=== PATIENT | male | born 1995 | race African-American/Black ===

== ENCOUNTER 2025-01-19 05:28 | Inpatient (IN) | payer MEDICAID, SELFPAY ==
--- OUTSIDE RECORDS SUMMARY | 2025-01-01 00:47 | XMS_ITS | Encounter Summary ---
Author Organization [facility] Healthcare Address [address] [place] [address] Care Team Providers Care Night Worker Name Role Phone Ray Sainz MD Unavailable [phone] Gordo Herrera MD Unavailable Miscellaneous, Not In File Unavailable Unava ilable Laurent Gonzalez MD Primary Care Provider [phone] Tobin Terrell MD Unavailable [phone] Reason for Visit * Reason Comments Sickle Cell Pain Crisis Chest Pain * Auth/Cert (Routine) Specialty Diagnoses / Procedures Referred By Contac t Referred To Contact Diagnoses Acute sickle cell crisis (HCC) Procedures NA Referral ID Status Reason Start Date Expiration Date Visits Re quested Visits Authorized [id number] 1 1 Encounter Details Date Type Department Care Team (Latest Contact Info) Description 01/01/2025 12:47 AM CDT - 01/18/2025 1:24 PM CDT Hospital Encounter [facility] 5 Med Surg [address] [place] [address] Bill Carrasquillo DO [address] [place] [address] Rasta Garcia MD [facility] [place] [address] Gary Hamilton DO [address] [facility] [place] [address] Jaya Garcia DO [address] [facility] [place] [address] Casey Paz MD [address] [place] [address] [place] [address] Leland Rodriguez MD [facility] [place] [address] Acute sickle cell crisis (HCC) (Primary Dx) Discharge Disposition: Discharge to home or self care Social History Tobacco Use Types Packs/Day Years Used Date Smoking Tobacco: Never Passive Smoke Exposure: Never Smokeless Tobacco: Never Alcohol Use Standard Drinks/Week Comments Not Currently 0 (1 standard drink = 0.6 oz pur e alcohol) Social Connection and Isolation Panel Answer Date Recorded In a typical week, how many times do you talk on the phone with family, friends, or neighbors? More than three times a week 12/08/2024 How often do you get togethe r with friends or relatives? Twice a week 12/08/2024 How often do you attend chur or worship services? Never 12/08/2024 Do you belong to any clubs o r organizations such as quaker groups, unions, fraternal or athletic groups, or school groups? No 12/08/2024 How often do you attend meet ings of the clubs or organizations you belong to? Never 12/08/2024 Are you , , di vorced, , never , or living with a partner? Never 12/08/2024 AUDIT-C Answer Date Recorded Q1: How often do you have a drink containing alcohol? Never 01/01/2025 Q2: How many drinks containi ng alcohol do you have on a typical day when you are drinking? Patient does not drink Q3: How often do you have si x or more drinks on one occasion? Never 01/01/2025 Overall Financial Resource Strain (CARDIA) Answe r Date Recorded How hard is it for you to pa y for the very basics like food, housing, medical care, and heating? Not hard at all 12/08/2024 PHQ-2 Answer Date Recorded PHQ-2 Total Score (If total score is 3 or more points, staff should administer the PHQ-9) 0 11/04/2024 PRAPARE - Transportation Answer Date Re corded In the past 12 months, has l ack of transportation kept you from medical appointments or from getting medications? No 11/23 In the past 12 months, has l ack of transportation kept you from meetings, work, or from getting things needed for daily living? No 12/08/2024 Housing Stability Vital Sign Answer Samy e Recorded In the last 12 months, was t here a time when you were not able to pay the mortgage or rent on time? No 09/01/2023 In the last 12 months, how many places have you lived? 1 09/01/2023 In the last 12 months, was t here a time when you did not have a steady place to sleep or slept in a intermediate (including now)? No 09/01/2023 PHQ-9 Answer Date Recorded PHQ-9 Total Score 0 11/04/2024 Housing Stability Vital Sign Answer Samy e Recorded In the last 12 months, was t here a time when you were not able to pay the mortgage or rent on time? No 12/08/2024 In the past 12 months, how m any times have you moved where you were living? 0 12/08/2024 At any time in the past 12 m [facility], were you homeless or living in a intermediate (including now)? No 12/08/2024 Social Connection and Isolation Panel Answer Date Recorded In a typical week, how many times do you talk on the phone with family, friends, or neighbors? More than three times a week 01/03/2025 How often do you get togethe r with friends or relatives? Twice a week 01/03/2025 How often do you attend chur ch or worship services? Never 01/03/2025 Do you belong to any clubs o r organizations such as quaker groups, unions, fraternal or athletic groups, or school groups? No 01/03/2025 How often do you attend meet ings of the clubs or organizations you belong to? Never 01/03/2025 Are you , , di vorced, , never , or living with a partner? Never 01/03/2025 Overall Financial Resource Strain (CARDIA) Answe r Date Recorded How hard is it for you to pa y for the very basics like food, housing, medical care, and heating? Not hard at all 01/03/2025 Hunger Vital Sign Answer Date Recorded Within the past 12 months, y ou worried that your food would run out before you got the money to buy more. Never true 01/04/20 25 Within the past 12 months, t he food you bought just didn't last and you didn't have money to get more. Never true 01/03/2025 PRAPARE - Transportation Answer Date Re corded In the past 12 months, has l ack of transportation kept you from medical appointments or from getting medications? No 12/24 In the past 12 months, has l ack of transportation kept you from meetings, work, or from getting things needed for daily living? No 01/03/2025 Housing Stability Vital Sign Answer Samy e Recorded In the last 12 months, was t here a time when you were not able to pay the mortgage or rent on time? No 01/03/2025 In the past 12 months, how m any times have you moved where you were living? 0 01/03/2025 At any time in the past 12 m [facility], were you homeless or living in a intermediate (including now)? No 01/03/2025 [facility] Utilities Answer Date Recorded In the past 12 months has th e electric, gas, oil, or water company threatened to shut off services in your home? No 01/03/2025 Personal Safety Answer Date Recorded Have you ever been in or are you currently in a harmful physical or emotional relationship or is someone making you feel afraid or unsafe? Denies 01/18/2025 Education Answer Date Recorded What is the highest level of school you have completed or the highest degree you have received? High school graduate 11/03/2024 Sex and Gender Information Value Date Recorded Sex Assigned at Not on file Legal Sex Male 10:50 AM LIBRARY SERVICES COORDINATOR Gender Identity Male 12/06/2024 9:44 PM CDT Sexual Orientation Straight 12/06/2024 9: 44 PM CDT documented as of this encounter Last Filed Vital Signs Vital Sign Reading Time Taken Comments Blood Pressure 111/66 01/18/2025 8:08 AM CDT Pulse 76 01/18/2025 8:08 AM CDT Temperature 36.7 C (98.1 F) 01/18/2025 8:08 AM CDT Respiratory Rate 18 01/18/2025 8:08 AM CDT Oxygen Saturation 95% 01/18/2025 8:08 AM CDT Inhaled Oxygen Concentration - - Weight 108.9 kg (240 lb) 01/01/2025 4:18 AM CDT Height 177.8 cm (5' 10) 01/01/2025 4:18 AM CDT Body Mass Index 34.44 01/01/2025 4:18 AM CDT documented in this encounter Functional Status * AUDIT-C Score Answer Date of Assessment Author 0 01/01/2025 6:16 AM CDT Adriana High RN * Question Answer Date of Assessment Author Q1: How often do you have a drink containing alcohol? Never 01/01/2025 6:16 AM CDT Teri High RN Q2: How many drinks containing alcohol do you have on a typical day when you are drinking? Patient does not drink 01/01/2025 6:16 AM CDT Teri High RN Q3: How often do you have six or more drinks on one occasion? Never 01/01/2025 6:16 AM CDT Teri High RN documented as of this encounter Discharge Summaries * Leland Rodriguez MD - 01/18/2025 12:46 PM CDT Inpatient Discharge Summary Patient Name - Johnny Simon Patient Age - 29 yrs Patient - [id number] [facility] - [id number] Document Creation Date: 01/18/2025 Admitting Provider, : Rasta Garcia MD Discharge Provider, MD: Leland Rodriguez MD Primary Care Physician at Discharge: Laurent Gonzalez MD [phone] Admission Date: 01/01/2025 Discharge Date/time: 01/18/2025 Admission Location: [facility] LOS - LOS: 16 days DETAILS OF HOSPITAL STAY Hospital Problems/Diagnoses Principal Problem: Acute sickle cell crisis (HCC) Reason for Hospitalization: Sickle cell pain crisis Hospital Course: HPI: History taken from patient. Patient states that he is experiencing pain in his lower extremities and back due to sickle cell crisis. He denies any fevers, chills, cough, shortness of breath, chest pain, nausea, vomiting, dysuria, changes in bowel habits. I have seen this patient several times in the last few months for similar presentation. [facility] for [facility] crisis. He reportedly then immediately went to [facility] ED where he was discharged after initial evaluation. Patient then decided to come to [facility] ED for evaluation. On EMR review, patient has been hospitalized for sickle cell pain crisis nearly every day since 05/2024 in this same pattern with perhaps 1-2weeks total time outside of hospitals. I did not look further back beyond this date. He was noted on discharge summary during previous admission last month at this facility to be exhibiting seeking behavior and required . Patient follows with Dr. Gonzalez for oncology and has not been able to see him/missed appointment since 04/2025. He has appointment for next month and states that he requires frequent returns to the ED due to having a pain contract and not being able to get a refill on home percocet regimen prior to next months followup. He additionally states he has not been able to move up his appointment. Patient presented to the ED with tachycardia to 90-100 with otherwise stable bp, afebrile. Labs showed K 3.2, wbc 12.2, hgb 7.8, retic 15.5, Tbili 5.6. His labs look overall slight worse compared to baseline. CXR showed no acute process. Patient received 2mg x2 dilaudid in the ED without control onpain. Discussed case with ED physician and evaluated patient in the ED. Patient did not appear to in severe pain, but seem to be in discomfort. He likely has quite a high tolerance at this point to opiates. His labwork is a bit worse compared to his baseline with overall presentation suggestive of active sickling. Decision was made to admit patient for observation. A/P: Principal Problem: Acute sickle cell crisis (HCC) Resolved Problems: No resolved hospital problems. Assessment and plan 01/16/2025 Sickle Cell Disease with Pain Crisis -do not suspect acute chest at this time -Today patient is complaining of severe pain -IV hydration with ns. Pain is not well controlled. 30 mg of [place] q.6 hours. Will continue Dilaudid. onextended release oxycodone b.i.d. scheduled.. Hemoglobin is 7.0. Reticulocyte count is trendingdown but still elevated. Hemoglobin is 8.3. Patient is still complaining of pain. Patient was now on Dilaudid 1 mg Q 3 hours with Percocet Repeat CBC in a.m..-Oncology is following. Continue folic acid. Received blood transfusion yesterday. During the transfusion patient was complaining of chest pain.Transfusion was stopped. Now hemoglobin is 8.3. Cough. Improved. Patient took only 1 dose of azithromycin then refused. No complaining of cough anymore Abdominal pain Resolved -negative for acute findings Hypokalemia Potassium is 3.1. Will replace with potassium chloride. 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 Patient was followed by Hematology and during hospital course received 1 unit of packed red blood cells on 01/16/2025. Patient's H&H has been stable for 3 days. Patient's reticulocyte has been coming down and Hematology feels patient is stable for discharge. Hematology and HONE[employer] LIQUEFIER will be reaching out to Dr. Gonzalez his Hematology to try to get the patient in next week. Patient has improved and is being transition to oral pain meds and short-term follow-up with Hematology Discharge Details Physical Exam at Discharge: Discharge Condition: good Pulse: 76 Resp: 18 BP: 111/66 Temp: 36.7 ??C (98.1 ??F) Weight: 108.9 kg (240 lb) Pertinent Exam Findings at Discharge: General appearance: Not in acute distress Lungs CTA Heart: [id number], no significant murmur or gallop Abd: +BS, Non Tender, Non distended, No gross hepatomegaly Lower Ext: No gross edema, pedal artery pulses are palpable bilaterally Neuro: No new deficits appreciated Musculoskeletal: no gross joint erythema, edema, tenderness Skin: No new change Discharge Disposition: Discharge to home or self care Code Status at Discharge: Full Code Active Issues & Recommended Plan for Follow-up: Allergies: Ceftriaxone, Morphine, Chlorhexidine towelette, Fentanyl, and Ketamine Discharge Medications: Your medication list START taking these medications Instructions Last Dose Given Next Dose Due diphenhydrAMINE 25 mg capsule Commonly known as: BENADRYL 25 mg, oral, 4 times daily PRN hydrocortisone 5 mg tablet Commonly known as: CORTEF 5 mg, oral, Nightly hydrocortisone 10 mg tablet Commonly known as: CORTEF Start taking on: January 19, 2025 10 mg, oral, Daily ondansetron ODT 4 mg disintegrating tablet Commonly known as: ZOFRAN-ODT 4 mg, oral, Every 6 hours PRN polyethylene glycol 17 gram packet Commonly known as: MIRALAX 17 g, oral, Daily PRN CHANGE how you take these medications Instructions Last Dose Given Next Dose Due oxyCODONE-acetaminophen 10-325 mg per tablet Commonly known as: PERCOCET What changed: how much to take how to take this when to take this reasons to take this additional instructions 3 tablets, oral, Every 6 hours PRN CONTINUE taking these medications Instructions Last Dose Given Next Dose Due albuterol HFA 90 mcg/actuation inhaler Doctor's comments: PMD for refills. Commonly known as: PROVENTIL HFA,VENTOLIN HFA,PROAIR HFA 2 puffs, inhalation, Every 6 hours PRN folic acid 1 mg tablet Doctor's comments: Primary care provider for refills. Commonly known as: FOLVITE 1 mg, oral, Daily naloxone 4 mg/actuation spray,non-aerosol Doctor's comments: PMD for refills. Commonly known as: NARCAN 1 spray, nasal, As needed, Call 911. Administer a single spray in one nostril. Repeat every 3 minutes as needed if no or minimal response. ASK your doctor about these medications Instructions Last Dose Given Next Dose Due oxyCODONE 15 mg immediate release tablet Commonly known as: ROXICODONE Ask about: Which instructions should I use? 15 mg, oral, Every 4 hours oxyCODONE 20 mg tablet Commonly known as: ROXICODONE Ask about: Which instructions should I use? 20 mg, oral, 4 times daily PRN oxyCODONE 20 mg tablet Commonly known as: ROXICODONE Ask about: Which instructions should I use? 20 mg, oral, Every 4 hours oxyCODONE 5 mg immediate release tablet Commonly known as: ROXICODONE Ask about: Which instructions should I use? 10 mg, oral, Every 4 hours PRN oxyCODONE ER 10 mg 12 hr abuse-deterrent tablet Commonly known as: OxyCONTIN Ask about: Which instructions should I use? 10 mg, oral, Every 12 hours scheduled Where to Get Your Medications These medications were sent to [facility] [address] [facility] [address] [facility] [address] [facility] [address] hydrocortisone 10 mg tablet hydrocortisone 5 mg tablet ondansetron ODT 4 mg disintegrating tablet oxyCODONE 20 mg tablet oxyCODONE 5 mg immediate release tablet oxyCODONE ER 10 mg 12 hr abuse-deterrent tablet oxyCODONE-acetaminophen 10-325 mg per tablet These medications were sent to [facility] ([facility]) [facility] [address] [facility] [address] [facility] [address] oxyCODONE 20 mg tablet These medications were sent to [id number] [address] [facility] [address] [facility] [id number] oxyCODONE 15 mg immediate release tablet Information about where to get these medications is not yet available Ask your nurse or doctor about these medications diphenhydrAMINE 25 mg capsule polyethylene glycol 17 gram packet Time Spent in Discharge Process: I have spent 37 minutes on discharge planning activities. Time spent was on reviewing chart, examining patient, entering orders, completing discharge summary, answering patient's questions and concerns Test Results Pending at Discharge (If Blank, None Found): Pending Labs Order Current Status Crossmatch In process Pathologist comment, Blood Bank In process Operative Procedures Performed (If Blank, None Found): Outpatient Follow-Up: Future Appointments Date Time Provider Department Center 02/14/2025 2:45 PM JENNIFER LEMON IM ONC [facility]C LAB [facility] 02/14/2025 3:45 PM YASMANY RIVERA HEM [facility] Zaheer Contact Information for Follow-ups Laurent Gonzalez MD Specialty: Hematology and Oncology, Hematology, Pathology, Anatomic Pathology, Medical Oncology, Internal Medicine, Clinical Pathology Relationship: PCP - General [address] [facility] [address] Next Steps: Schedule an appointment as soon as possible for a visit in 2 week(s) Please schedule an appointment with the following provider(s): Laurent Gonzalez MD [address] [facility] [address] Schedule an appointment as soon as possible for a visit in 2 week(s) ANCILLARY INFORMATION Other Procedures & Diagnostic Tests: XR Chest 1 Vw Portable Result Date: 01/01/2025 EXAM DESCRIPTION: XR CHEST 1 VIEW REASON FOR STUDY: cp Sickle cells pain x 3 days with chest, leg and foot pain TECHNIQUE: Portable upright AP view of the chest. COMPARISON: 12/23/2024 FINDINGS: LUNGS AND PLEURA: Vascular congestion less severe compared to the prior. No focal opacity, large effusion, or pneumothorax is seen. HEART/MEDIASTINUM: Trachea midline. Cardiac silhouette normal in size. Mediastinal contours appear normal. BONES: Shoulder arthritis. CHEST WALL: Unremarkable. UPPER ABDOMEN: Unremarkable. IMPRESSION: Vascular congestion less severe compared to 12/23/2024. No focal opacity is seen. THIS IS AN ELECTRONICALLY VERIFIED FINAL REPORT 01/01/2025 12:25 AM - Electronically signedby Andrew Stubbs M.D. AR: TOREY Report ID: [id number] Reading Location: [place] [address] Recent Labs: Recent Labs Lab Units 01/18/25 0614 01/17/25 0604 01/16/25 1440 WBC K/cumm 11.84* 10.19* 8.91 HEMOGLOBIN g/dL 8.3* 8.3* 8.3* HEMATOCRIT % 24.3* 24.0* 24.2* PLATELETS K/cumm 302 329 316 Recent Labs Lab Units 01/18/25 0614 01/17/25 0604 01/16/25 1440 WBC K/cumm 11.84* 10.19* 8.91 HEMOGLOBIN g/dL 8.3* 8.3* 8.3* HEMATOCRIT % 24.3* 24.0* 24.2* PLATELETS K/cumm 302 329 316 NEUTROS PCT % 47.8 48.8 56.6 LYMPHS PCT % 35.6 36.6 27.6 MONOS PCT % 12.9 10.2 10.2 EOS PCT % 2.7 3.4 4.6 Recent Labs Lab Units 01/18/25 0614 01/17/25 0604 01/16/25 0259 SODIUM mmol/L 138 137 138 POTASSIUM PLASMA mmol/L 3.3 3.1* 3.2* CHLORIDE mmol/L 101 101 103 CO2 mmol/L BUN SERUM mg/dL 4* 3* 3* CREATININE mg/dL 0.61* 0.50* 0.49* [id number] mL/min/1.73 m2 >90 >90 >90 GLUCOSE mg/dL 105 125 154 CALCIUM mg/dL 9.1 8.9 8.7 Recent Labs Lab Units 01/18/25 0614 01/17/25 0604 01/16/25 0259 SODIUM mmol/L 138 137 138 POTASSIUM PLASMA mmol/L 3.3 3.1* 3.2* CHLORIDE mmol/L 101 101 103 CO2 mmol/L ANIONGAP mmol/L 12 12 10 GLUCOSE mg/dL 105 125 154 BUN SERUM mg/dL 4* 3* 3* CREATININE mg/dL 0.61* 0.50* 0.49* CALCIUM mg/dL 9.1 8.9 8.7 No lab exists for component: LABALBU Lab Results Component Value Date GLUCOSE 105 01/18/2025 GLUCOSE 125 01/17/2025 GLUCOSE 154 01/16/2025 Implant: Implants No active implants to display in this view. General Precautions (If Blank, None Found): Isolation Status: No active isolations Nutritional Status and in-house recommendations: Dietary Orders (From admission, onward) Start Ordered 01/02/25 1021 Adult Diet Regular; Sarah snack Diet effective now Question Answer Comment (MHB/MHE) Diet type Regular Other Services: Sarah Other Services: HS snack 01/02/25 1020 Anticoagulation Indication: INR: No results found for requested labs within last 30 days. Warfarin Administrations (last 168 hours) None Oxygen Status: O2 Therapy for the past 12 hrs: O2 Therapy 01/18/25 1000 None (Room air) 01/18/25 0808 None (Room air) 01/18/25 0616 None (Room air) Wound Care Instructions Other Instructions Call provider for: Temperature -Temperature greater than 101 degrees F Call provider for: difficulty breathing or chest pain Call provider for: hives Call provider for: persistent nausea or vomiting Call provider for: redness, tenderness, or signs of infection (pain, swelling, redness, odor or green/yellow discharge around incision site) Call provider for: severe uncontrolled pain Call provider for: headache, visual disturbances, weakness and speech changes Active LDAs (If Blank, None Found): Midline Catheter 01/13/25 1320 Right Basilic Upper arm (Active) Placement Date/Time: 01/13/25 1320 Catheter Time Out Checklist Completed: Yes Hand Hygiene Performed: Yes Site Prep: Chlorhexidine Site Prep Agent has Completely Dried Before Insertion: Yes All 5 Sterile Barriers or Appropriate Barriers Used (Gl... Patient Emergency Contact: Primary Emergency Contact: Albertina Vick Immunization Status at Discharge Immunization History Administered Date(s) Administered DTaP 08/25/1998 Flucelvax Influenza Quad 05/03/2009 H1N1 Inj 05/03/2009 Hep A, Pediatric 09/27/2009 Hib (PRP-OMP) 03/16/1999 Influenza, Split 05/03/2009 Influenza, Trivalent, Preservative Free, Intramuscular 05/03/2009, 02/20/2011 MMR 08/25/1998 Moderna SARS-CoV-2 Monovalent Vaccination (12+ YRS) 01/23/2022 Polio, Unspecified 08/25/1998 Tdap 12/30/2007, 09/27/2009, 02/10/2020 Varicella 06/27/1999 Leland Rodriguez MD documented in this encounter Discharge Instructions * Discharge Instr - Diet* Claudia Hartmann, RD - 01/10/2025 1:04 PM CDT Recommend to eat a generally healthy diet with foods that include a variety of fruits, vegetables, whole-grain breads, low-fat dairy products, beans, lean meats, and fish. Limit fast food, sugary drinks, excess salt, and desserts. Limit sugary drinks like lemonade, regular soda, Gatorade, and sweettea and drink water throughout the day. Call [phone] to speak with a dietitian about any diet related concerns. Additional resources are available online from the Academy of Nutrition and Dietetics at www.eatright.org documented in this encounter Medications at Time of Discharge albuterol HFA (PROVENTIL HFA,VENTOLIN HFA,PROAIR HFA) 90 mcg/actuation inhalerIndications: Bronchospasm Prevention Inhale 2 puffs every 6 (six) hours as needed for wheezing or shortness of breath 1 each 1 5 diphenhydrAMINE (BENADRYL) 25 mg capsule Take 1 tablet/capsule (25 mg total) by mouth 4 (four) times a day as needed for itching or allergies 5 folic acid (FOLVITE) 1 mg tabletIndications:T o prevent folic acid deficiency sickle cell disease Take 1 tablet (1 mg total) by mouth daily 30 tablet 1 5 02/08/20 25 hydrocortisone (CORTEF) 10 mg tablet Take 1 tablet (10 mg total) by mouth daily 30 tablet 5 02/19/20 25 hydrocortisone (CORTEF) 5 mg tablet Take 1 tablet (5 mg total) by mouth nightly 30 tablet 5 02/18/20 25 naloxone (NARCAN) 4 mg/actuation spray,non-aerosolIn dications:Opiate-In duced Respiratory Depression,Opioid Toxicity,risk mitigation for opioid overdose Administer 1 spray into affected nostril(s) as needed for opioid reversal or respiratory depression Call 911. Administer a single spray in one nostril. Repeat every 3 minutes as needed if no or minimal response. 3 each 2 5 ondansetron ODT (ZOFRAN-ODT) 4 mg disintegrating tabletIndications:N ausea and Vomiting Take 1 tablet (4 mg total) by mouth every 6 (six) hours as needed for nausea or vomiting for up to 10 days 20 tablet 5 01/29/20 25 oxyCODONE ER (OxyCONTIN) 10 mg 12 hr abuse-deterrent tablet Take 1 tablet (10 mg total) by mouth every 12 (twelve) hours for 5 days 10 tablet 5 01/24/20 25 oxyCODONE-acetamino phen (PERCOCET) 10-325 mg per tabletIndications:P ain,Sickle cell pain Take 3 tablets by mouth every 6 (six) hours as needed for pain for up to 5 days 20 tablet 5 01/24/20 25 polyethylene glycol (MIRALAX) 17 gram packetIndications:c onstipation Take 1 packet (17 g total) by mouth daily as needed for constipation 5 documented as of this encounter Ordered Prescriptions Prescription Sig Dispense Quantity Refills Last Filled Start Date End Date polyethylene glycol (MIRALAX) 17 gram packetIndications:c onstipation Take 1 packet (17 g total) by mouth daily as needed for constipation 5 oxyCODONE-acetamino phen (PERCOCET) 10-325 mg per tabletIndications:P ain,Sickle cell pain Take 3 tablets by mouth every 6 (six) hours as needed for pain for up to 5 days 20 tablet 5 01/24/20 25 oxyCODONE ER (OxyCONTIN) 10 mg 12 hr abuse-deterrent tablet Take 1 tablet (10 mg total) by mouth every 12 (twelve) hours for 5 days 10 tablet 5 01/24/20 25 ondansetron ODT (ZOFRAN-ODT) 4 mg disintegrating tabletIndications:N ausea and Vomiting Take 1 tablet (4 mg total) by mouth every 6 (six) hours as needed for nausea or vomiting for up to 10 days 20 tablet 5 01/29/20 25 hydrocortisone (CORTEF) 5 mg tablet Take 1 tablet (5 mg total) by mouth nightly 30 tablet 5 02/18/20 25 hydrocortisone (CORTEF) 10 mg tablet Take 1 tablet (10 mg total) by mouth daily 30 tablet 5 02/19/20 25 diphenhydrAMINE (BENADRYL) 25 mg capsule Take 1 tablet/capsule (25 mg total) by mouth 4 (four) times a day as needed for itching or allergies 5 documented in this encounter Discharge Disposition Disposition Code Departure Means Destination Comment s Discharge to home or self care documented in this encounter Progress Notes * Casey Paz MD - 01/17/2025 2:58 PM CDT Images from the original note were not included. General Medicine Daily Progress SUBJECTIVE 01/11/2025 I have seen and examined the patient today. Patient was complaining of cough. Also complains of pain which is not well controlled yet. 01/12/2025 I have seen and examined the patient today. Patient was complaining of severe pain. 01/13/2025 I have seen and examined the patient today. Patient is still complaining of severe pain 02/0201/14/2025 I have seen and examined the patient today. Patient is still complaining of pain 03/04. 01/15/2025 I have seen and examined the patient today. Patient was still complaining of pain. 01/16/25 Today hemoglobin dropped to 7.0. Still complaining of lot of pain 01/17/2025 I have seen and examined the patient today. Patient is still complaining of pain. Does not want to change his Dilaudid. Hemoglobin is 8.3. OBJECTIVE Vitals: 24hr Min/Max: Temp Min: 36.6 ??C (97.9 ??F) Max: 37.3 ??C (99.1 ??F) Pulse Min: 65 Max: 76 BP Min: 107/69 Max: 126/81 Resp Min: 18 Max: 18 SpO2 Min: 96 % Max: 98 % Most Recent : Vitals: 01/17/25 0746 BP: 107/69 Pulse: 76 Resp: 18 Temp: 36.7 ??C (98.1 ??F) SpO2: 98% I/O last 2 completed shifts: In: 157 [Blood:157] Out: 2124 [Urine:2124] No intake/output data recorded. Physical Exam: General appearance: Not in acute distress Lungs CTA Heart: [id number], no significant murmur or gallop Abd: +BS, Non Tender, Non distended, No gross hepatomegaly Lower Ext: No gross edema, pedal artery pulses are palpable bilaterally Neuro: No new deficits appreciated Musculoskeletal: no gross joint erythema, edema, tenderness Skin: No new change Lab/Current Medication Review: Reviewed Recent Results (from the past 24 hours) Pre-Transfusion Reaction ABO/Rh Collection Time: 01/16/25 3:58 PM Result Value Ref Range ABO/Rh Pre-Transfusion Reaction A Positive Pre TRXN SAMY Collection Time: 01/16/25 3:58 PM Result Value Ref Range Direct yesenia pre-transfusion reaction Negative Post-Transfusion Reaction ABO/Rh Collection Time: 01/16/25 3:58 PM Result Value Ref Range ABO/Rh Post-Transfusion Reaction A Positive Post TRXN SAMY Collection Time: 01/16/25 3:58 PM Result Value Ref Range Yesenia, direct, post-transfusion Negative Troponin T high-sensitivity 2-hour Collection Time: 01/16/25 5:09 PM Result Value Ref Range Trop T hs <6 <=22 ng/L Trop T hs delta 0 ng/L Trop T hs interp Insignificant Troponin T high-sensitivity 4-hour Collection Time: 01/16/25 6:37 PM Result Value Ref Range Trop T hs 13 <=22 ng/L Trop T hs delta 7 ng/L Trop T hs interp Equivocal Basic metabolic panel Collection Time: 01/17/25 6:04 AM Result Value Ref Range Sodium 137 135 - 145 mmol/L Potassium, pl 3.1 (L) 3.3 - 4.9 mmol/L Chloride 101 97 - 110 mmol/L CO2 24 22 - 32 mmol/L Anion gap 12 2 - 15 mmol/L BUN 3 (L) 6 - 25 mg/dL Creatinine 0.50 (L) 0.80 - 1.30 mg/dL Glucose 125 70 - 199 mg/dL Calcium 8.9 8.5 - 10.3 mg/dL CBC with auto differential Collection Time: 01/17/25 6:04 AM Result Value Ref Range WBC 10.19 (H) 3.80 - 9.90 K/cumm Hgb 8.3 (L) 13.0 - 17.5 g/dL Hct 24.0 (L) 38.9 - 50.3 % Plt 329 150 - 400 K/cumm MPV 10.6 9.1 - 12.3 fL RBC 2.77 (L) 4.30 - 5.80 M/cumm MCV 86.6 81.3 - 96.4 fL MCH 30.0 27.1 - 33.3 pg MCHC 34.6 32.3 - 35.7 g/dL RDW CV 21.2 (H) 11.1 - 14.9 % RDW SD 66.2 (H) 35.7 - 48.1 fL NRBC abs 0.06 (H) 0.00 - 0.01 K/cumm Morphologic Screen Results confirmed by manual morphology review. Reticulocyte Count Collection Time: 01/17/25 6:04 AM Result Value Ref Range Retics, absolute 468 (H) 20 - 87 K/cumm Retics 15.7 (H) 0.4 - 2.9 % Reticulocyte Hgb 30.0 (L) 30.5 - 38.0 pg Differential, auto Collection Time: 01/17/25 6:04 AM Result Value Ref Range Neutrophil abs 4.97 1.50 - 6.50 K/cumm Imm gran abs 0.04 0.00 - 0.10 K/cumm Lymphocyte abs 3.73 (H) 0.80 - 3.30 K/cumm Monocyte abs 1.04 (H) 0.20 - 0.80 K/cumm Eosinophil abs 0.35 0.00 - 0.50 K/cumm Basophil abs 0.06 0.00 - 0.10 K/cumm Neutrophil pct 48.8 % Imm gran pct 0.4 % Lymphocyte pct 36.6 % Monocyte pct 10.2 % Eosinophil pct 3.4 % Basophil pct 0.6 % eGFR Collection Time: 01/17/25 6:04 AM Result Value Ref Range eGFR >90 >=60 mL/min/1.73 m2 Imaging Current Facility-Administered Medications Medication Dose Route Frequency Provider Last Rate Last Admin benzonatate (TESSALON) capsule 100 mg 100 mg oral TID Casey Paz MD 100 mg at 01/13/25 2339 Carrier Fluids for Secondary Infusion - 0.9% Sodium Chloride 30 mL intravenous PRN Rasta Garcia MD diphenhydrAMINE (BENADRYL) tab/cap 25 mg 25 mg oral QID PRN Rasta Garcia MD 25 mg at 01/02/25 1252 enoxaparin (LOVENOX) syringe 40 mg 40 mg subcutaneous Daily-2100 Rasta Garcia MD folic acid (FOLVITE) tablet 1 mg 1 mg oral Daily Rasta Garcia MD 1 mg at 01/17/25 0933 guaiFENesin ER (MUCINEX) extended release tablet 600 mg 600 mg oral BID Casey Paz MD 600mg at 01/17/25 0932 hydrocortisone (CORTEF) tablet 10 mg 10 mg oral Daily Rasta Garcia MD 10 mg at 01/17/25 0933 hydrocortisone (CORTEF) tablet 5 mg 5 mg oral Nightly Rasta Gracia MD 5 mg at 01/15/25 2050 HYDROmorphone (DILAUDID) injection 1 mg 1 mg intravenous Q3H PRN Casey Paz MD 1 mg at 01/17/25 1255 naloxone (NARCAN) 0.4 mg/mL injection 0.4 mg 0.4 mg intravenous Q10 Min PRN Rasta Garcia MD ondansetron ODT (ZOFRAN-ODT) disintegrating tablet 4 mg 4 mg oral Q6H PRN Rasta Garcia MD Or ondansetron (ZOFRAN) injection 4 mg 4 mg intravenous Q6H PRN Rasta Garcia MD 4 mg at 01/08/25 1130 oxyCODONE ER (OxyCONTIN) extended release tablet 10 mg 10 mg oral Q12H Casey Christianson MD 10 mg at 01/16/25 1037 oxyCODONE-acetaminophen (PERCOCET) 10-325 mg per tablet 3 tablet 3 tablet oral Q6H PRN Casey Paz MD 3 tablet at 01/12/25 1432 polyethylene glycol (MIRALAX) packet 17 g 17 g oral Daily PRN Rasta Garcia MD sodium chloride 0.9% flush 0.5-20 mL 0.5-20 mL intra-catheter Q8H Rasta Murphy MD 10 mL at 01/17/25 0635 sodium chloride 0.9% flush 0.5-20 mL 0.5-20 mL intra-catheter PRN Rasta Garcia MD 10 mL at 01/12/25 1957 sodium chloride 0.9% flush 10 mL 10 mL intra-catheter Q12H Casey Christianson MD 10 mL at 01/17/25 0949 sodium chloride 0.9% flush 10 mL 10 mL intra-catheter Q12H Casey Christianson MD 10 mL at 01/17/25 0945 sodium chloride 0.9% flush 10-20 mL 10-20 mL intra-catheter PRN Casey Paz MD sodium chloride 0.9% flush 10-20 mL 10-20 mL intra-catheter PRN Casey Paz MD A/P: Principal Problem: Acute sickle cell crisis (HCC) Resolved Problems: No resolved hospital problems. Assessment and plan 01/16/2025 Sickle Cell Disease with Pain Crisis -do not suspect acute chest at this time -Today patient is complaining of severe pain -IV hydration with ns. Pain is not well controlled. 30 mg of [place] q.6 hours. Will continue Dilaudid. onextended release oxycodone b.i.d. scheduled.. Hemoglobin is 7.0. Reticulocyte count is trendingdown but still elevated. Hemoglobin is 8.3. Patient is still complaining of pain. Patient was now on Dilaudid 1 mg Q 3 hours with Percocet Repeat CBC in a.m..-Oncology is following. Continue folic acid. Received blood transfusion yesterday. During the transfusion patient was complaining of chest pain.Transfusion was stopped. Now hemoglobin is 8.3. Cough. Improved. Patient took only 1 dose of azithromycin then refused. No complaining of cough anymore Abdominal pain Resolved -negative for acute findings Hypokalemia Potassium is 3.1. Will replace with potassium chloride. 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 This includes time spent prior to the visit and after the visit in direct care of the patient. This time does not include time spent in any separately reportable services. Voice recognition software [employer]ency Direct may have been used dictate and transcribe this document. Research Methods Instructor variances may occur. Despite proofreading, typographical errors may occur. Casey Paz MD 01/17/2025 2:58 PM * Casey Paz MD - 01/16/2025 12:38 PM CDT Images from the original note were not included. General Medicine Daily Progress SUBJECTIVE 01/11/2025 I have seen and examined the patient today. Patient was complaining of cough. Also complains of pain which is not well controlled yet. 01/12/2025 I have seen and examined the patient today. Patient was complaining of severe pain. 01/13/2025 I have seen and examined the patient today. Patient is still complaining of severe pain 02/0201/14/2025 I have seen and examined the patient today. Patient is still complaining of pain 03/04. 01/15/2025 I have seen and examined the patient today. Patient was still complaining of pain. 01/16/25 Today hemoglobin dropped to 7.0. Still complaining of lot of pain OBJECTIVE Vitals: 24hr Min/Max: Temp Min: 36.5 ??C (97.7 ??F) Max: 37.3 ??C (99.1 ??F) Pulse Min: 74 Max: 89 BP Min: 104/62 Max: 126/76 Resp Min: 16 Max: 20 SpO2 Min: 93 % Max: 97 % Most Recent : Vitals: 01/16/25 1229 BP: 126/76 Pulse: 89 Resp: 18 Temp: 37.2 ??C (99 ??F) SpO2: 97% I/O last 2 completed shifts: In: 1625 [P.O.:480; I.V.:1145] Out: 900 [Urine:900] No intake/output data recorded. Physical Exam: General appearance: Not in acute distress Lungs CTA Heart: [id number], no significant murmur or gallop Abd: +BS, Non Tender, Non distended, No gross hepatomegaly Lower Ext: No gross edema, pedal artery pulses are palpable bilaterally Neuro: No new deficits appreciated Musculoskeletal: no gross joint erythema, edema, tenderness Skin: No new change Lab/Current Medication Review: Reviewed Recent Results (from the past 24 hours) Basic metabolic panel Collection Time: 01/16/25 2:59 AM Result Value Ref Range Sodium 138 135 - 145 mmol/L Potassium, pl 3.2 (L) 3.3 - 4.9 mmol/L Chloride 103 97 - 110 mmol/L CO2 25 22 - 32 mmol/L Anion gap 10 2 - 15 mmol/L BUN 3 (L) 6 - 25 mg/dL Creatinine 0.49 (L) 0.80 - 1.30 mg/dL Glucose 154 70 - 199 mg/dL Calcium 8.7 8.5 - 10.3 mg/dL CBC with auto differential Collection Time: 01/16/25 2:59 AM Result Value Ref Range WBC 8.61 3.80 - 9.90 K/cumm Hgb 7.0 (L) 13.0 - 17.5 g/dL Hct 19.8 (L) 38.9 - 50.3 % Plt 276 150 - 400 K/cumm MPV 10.1 9.1 - 12.3 fL RBC 2.31 (L) 4.30 - 5.80 M/cumm MCV 85.7 81.3 - 96.4 fL MCH 30.3 27.1 - 33.3 pg MCHC 35.4 32.3 - 35.7 g/dL RDW CV 21.6 (H) 11.1 - 14.9 % RDW SD 65.4 (H) 35.7 - 48.1 fL NRBC abs 0.07 (H) 0.00 - 0.01 K/cumm Morphologic Screen Results confirmed by manual morphology review. Reticulocyte Count Collection Time: 01/16/25 2:59 AM Result Value Ref Range Retics, absolute 431 (H) 20 - 87 K/cumm Retics 18.7 (H) 0.4 - 2.9 % Reticulocyte Hgb 28.0 (L) 30.5 - 38.0 pg Differential, auto Collection Time: 01/16/25 2:59 AM Result Value Ref Range Neutrophil abs 4.31 1.50 - 6.50 K/cumm Imm gran abs 0.03 0.00 - 0.10 K/cumm Lymphocyte abs 3.04 0.80 - 3.30 K/cumm Monocyte abs 0.81 (H) 0.20 - 0.80 K/cumm Eosinophil abs 0.38 0.00 - 0.50 K/cumm Basophil abs 0.04 0.00 - 0.10 K/cumm Neutrophil pct 50.1 % Imm gran pct 0.3 % Lymphocyte pct 35.3 % Monocyte pct 9.4 % Eosinophil pct 4.4 % Basophil pct 0.5 % eGFR Collection Time: 01/16/25 2:59 AM Result Value Ref Range eGFR >90 >=60 mL/min/1.73 m2 ABO/Rh Collection Time: 01/16/25 10:42 AM Result Value Ref Range ABO/Rh A Positive Antibody screen Collection Time: 01/16/25 10:42 AM Result Value Ref Range Yesenia, indirect, Gel Interpretation Negative ABSC Crossmatch Collection Time: 01/16/25 10:42 AM Result Value Ref Range Crossmatch Compatible Unit number for crossmatch [id number] Crossmatch Compatible Unit number for crossmatch [id number] Prepare RBC: 1 Units Collection Time: 01/16/25 11:30 AM Result Value Ref Range Units requested 1 Units requested Ready Unit Number [id number] Product code [id number] Blood Expiration Date [id number] Product Blood Type (for scanning) 6200 Product Blood Type APOS Dispense Status DISPENSED Imaging Current Facility-Administered Medications Medication Dose Route Frequency Provider Last Rate Last Admin benzonatate (TESSALON) capsule 100 mg 100 mg oral TID Casey Paz MD 100 mg at 01/13/25 2339 Carrier Fluids for Secondary Infusion - 0.9% Sodium Chloride 30 mL intravenous PRN Rasta Garcia MD diphenhydrAMINE (BENADRYL) tab/cap 25 mg 25 mg oral QID PRN Rasta Garcia MD 25 mg at 01/02/25 1252 enoxaparin (LOVENOX) syringe 40 mg 40 mg subcutaneous Daily-2100 Rasta Garcia MD folic acid (FOLVITE) tablet 1 mg 1 mg oral Daily Rasta Garcia MD 1 mg at 01/16/25 1037 guaiFENesin ER (MUCINEX) extended release tablet 600 mg 600 mg oral BID Casey Paz MD 600mg at 01/13/25 2339 hydrocortisone (CORTEF) tablet 10 mg 10 mg oral Daily Rasta Garcia MD 10 mg at 01/16/25 1037 hydrocortisone (CORTEF) tablet 5 mg 5 mg oral Nightly Rasta Garcia MD 5 mg at 01/15/252049 HYDROmorphone (DILAUDID) injection 1 mg 1 mg intravenous Q3H PRN Casey Paz MD HYDROmorphone (DILAUDID) injection 2 mg 2 mg intravenous Q3H PRN Casey Paz MD naloxone (NARCAN) 0.4 mg/mL injection 0.4 mg 0.4 mg intravenous Q10 Min PRN Rasta Garcia MD ondansetron ODT (ZOFRAN-ODT) disintegrating tablet 4 mg 4 mg oral Q6H PRN Rasta Garcia MD Or ondansetron (ZOFRAN) injection 4 mg 4 mg intravenous Q6H PRN Rasta Garcia MD 4 mg at 01/08/25 1130 oxyCODONE ER (OxyCONTIN) extended release tablet 10 mg 10 mg oral Q12H Casey Christianson MD 10 mg at 01/16/25 1037 oxyCODONE-acetaminophen (PERCOCET) 10-325 mg per tablet 3 tablet 3 tablet oral Q6H PRN Casey Paz MD 3 tablet at 01/12/25 1432 polyethylene glycol (MIRALAX) packet 17 g 17 g oral Daily PRN Rasta Garcia MD sodium chloride 0.9% flush 0.5-20 mL 0.5-20 mL intra-catheter Q8H Rasta Murphy MD 10 mL at 01/15/25 1438 sodium chloride 0.9% flush 0.5-20 mL 0.5-20 mL intra-catheter PRN Rasta Gacria MD 10 mL at 01/12/25 1957 sodium chloride 0.9% flush 10 mL 10 mL intra-catheter Q12H Casey Christianson MD 10 mL at 01/16/25 1105 sodium chloride 0.9% flush 10 mL 10 mL intra-catheter Q12H Casey Christianson MD 10 mL at 01/16/25 1105 sodium chloride 0.9% flush 10-20 mL 10-20 mL intra-catheter PRN Casey Paz MD sodium chloride 0.9% flush 10-20 mL 10-20 mL intra-catheter PRN Casey Paz MD sodium chloride 0.9% infusion 50 mL/hr intravenous Continuous Casey Paz MD sodium chloride 0.9% IVPB 0-250 mL 0-250 mL intravenous Once Casey Paz MD A/P: Principal Problem: Acute sickle cell crisis (HCC) Resolved Problems: No resolved hospital problems. Assessment and plan 01/16/2025 Sickle Cell Disease with Pain Crisis -do not suspect acute chest at this time -Today patient is complaining of severe pain -IV hydration with ns. Pain is not well controlled. 30 mg of [place] q.6 hours. Will continue Dilaudid. onextended release oxycodone b.i.d. scheduled.. Hemoglobin is 7.0. Reticulocyte count is trendingdown but still elevated. Hemoglobin dropped to 7.0 I will transfuse 1 unit. Patient is still complaining of pain. He has been on Dilaudid 2 mg q.3 hours for several days. I discussed with the patient wanted to cut down the Dilaudid starting today at 4:00 p.m. to 1 mg q.3 hours. Will stop IV fluid at 6:00 p.m. Will repeat H&H after 1 hour of transfusion. Repeat CBC in a.m..-Oncology is following. Continue folic acid. Will transfuse if hemoglobin drops below 7 Cough. Improved. Patient took only 1 dose of azithromycin then refused. No complaining of cough anymore Abdominal pain Resolved -negative for acute findings Hypokalemia Potassium is 3.2. Will replace with potassium chloride. 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 This includes time spent prior to the visit and after the visit in direct care of the patient. This time does not include time spent in any separately reportable services. Voice recognition software [employer] Direct may have been used dictate and transcribe this document. Research Methods Instructor variances may occur. Despite proofreading, typographical errors may occur. Casey Paz MD 01/16/2025 12:38 PM * Casey Paz MD - 01/15/2025 10:13 AM CDT Images from the original note were not included. General Medicine Daily Progress SUBJECTIVE 01/11/2025 I have seen and examined the patient today. Patient was complaining of cough. Also complains of pain which is not well controlled yet. 01/12/2025 I have seen and examined the patient today. Patient was complaining of severe pain. 01/13/2025 I have seen and examined the patient today. Patient is still complaining of severe pain 02/0201/14/2025 I have seen and examined the patient today. Patient is still complaining of pain 03/04. 01/15/2025 I have seen and examined the patient today. Patient was still complaining of pain. OBJECTIVE Vitals: 24hr Min/Max: Temp Min: 36.7 ??C (98.1 ??F) Max: 37.1 ??C (98.8 ??F) Pulse Min: 71 Max: 87 BP Min: 117/70 Max: 136/81 Resp Min: 18 Max: 18 SpO2 Min: 94 % Max: 99 % Most Recent : Vitals: 01/15/25 0830 BP: 130/75 Pulse: 75 Resp: 18 Temp: 36.9 ??C (98.4 ??F) SpO2: 99% I/O last 2 completed shifts: In: 2169.2 [P.O.:1320; I.V.:849.2] Out: 3500 [Urine:3500] No intake/output data recorded. Physical Exam: General appearance: Not in acute distress Lungs CTA Heart: [id number], no significant murmur or gallop Abd: +BS, Non Tender, Non distended, No gross hepatomegaly Lower Ext: No gross edema, pedal artery pulses are palpable bilaterally Neuro: No new deficits appreciated Musculoskeletal: no gross joint erythema, edema, tenderness Skin: No new change Lab/Current Medication Review: Recent Results (from the past 24 hours) Basic metabolic panel Collection Time: 01/15/25 5:38 AM Result Value Ref Range Sodium 136 135 - 145 mmol/L Potassium, pl 3.2 (L) 3.3 - 4.9 mmol/L Chloride 102 97 - 110 mmol/L CO2 24 22 - 32 mmol/L Anion gap 10 2 - 15 mmol/L BUN 3 (L) 6 - 25 mg/dL Creatinine 0.44 (L) 0.80 - 1.30 mg/dL Glucose 116 70 - 199 mg/dL Calcium 9.0 8.5 - 10.3 mg/dL CBC with auto differential Collection Time: 01/15/25 5:38 AM Result Value Ref Range WBC 8.91 3.80 - 9.90 K/cumm Hgb 7.3 (L) 13.0 - 17.5 g/dL Hct 21.4 (L) 38.9 - 50.3 % Plt 316 150 - 400 K/cumm MPV 10.1 9.1 - 12.3 fL RBC 2.46 (L) 4.30 - 5.80 M/cumm MCV 87.0 81.3 - 96.4 fL MCH 29.7 27.1 - 33.3 pg MCHC 34.1 32.3 - 35.7 g/dL RDW CV 21.6 (H) 11.1 - 14.9 % RDW SD 67.9 (H) 35.7 - 48.1 fL NRBC abs 0.13 (H) 0.00 - 0.01 K/cumm Reticulocyte Count Collection Time: 01/15/25 5:38 AM Result Value Ref Range Retics, absolute 497 (H) 20 - 87 K/cumm Retics 20.2 (H) 0.4 - 2.9 % Reticulocyte Hgb 28.3 (L) 30.5 - 38.0 pg Differential, auto Collection Time: 01/15/25 5:38 AM Result Value Ref Range Neutrophil abs 3.92 1.50 - 6.50 K/cumm Imm gran abs 0.07 0.00 - 0.10 K/cumm Lymphocyte abs 3.68 (H) 0.80 - 3.30 K/cumm Monocyte abs 0.80 0.20 - 0.80 K/cumm Eosinophil abs 0.40 0.00 - 0.50 K/cumm Basophil abs 0.04 0.00 - 0.10 K/cumm Neutrophil pct 44.0 % Imm gran pct 0.8 % Lymphocyte pct 41.3 % Monocyte pct 9.0 % Eosinophil pct 4.5 % Basophil pct 0.4 % eGFR Collection Time: 01/15/25 5:38 AM Result Value Ref Range eGFR >90 >=60 mL/min/1.73 m2 Blood smear review Collection Time: 01/15/25 5:38 AM Result Value Ref Range RBC morphology Present (A) Hypochromasia 3-7/HPF (A) Anisocytosis Moderate (A) Schistocytes 1-2/HPF (A) Sickle cells 1-2/HPF (A) Elliptocytes 8-15/HPF (A) Target cells 3-7/HPF (A) Acanthocytes 3-7/HPF (A) Platelet estimate Adequate Imaging Current Facility-Administered Medications Medication Dose Route Frequency Provider Last Rate Last Admin benzonatate (TESSALON) capsule 100 mg 100 mg oral TID Casey Paz MD 100 mg at 01/15/25 0957 Carrier Fluids for Secondary Infusion - 0.9% Sodium Chloride 30 mL intravenous PRN Rasta Garcia MD diphenhydrAMINE (BENADRYL) tab/cap 25 mg 25 mg oral QID PRN Rasta Garcia MD 25 mg at 01/02/25 1252 enoxaparin (LOVENOX) syringe 40 mg 40 mg subcutaneous Daily-2100 Rasta Garcia MD folic acid (FOLVITE) tablet 1 mg 1 mg oral Daily Rasta Garcia MD 1 mg at 01/15/25 0957 guaiFENesin ER (MUCINEX) extended release tablet 600 mg 600 mg oral BID Casey Paz MD 600mg at 01/15/25 0957 hydrocortisone (CORTEF) tablet 10 mg 10 mg oral Daily Rasta Garcia MD 10 mg at 01/15/25 0958 hydrocortisone (CORTEF) tablet 5 mg 5 mg oral Nightly Rasta Garcia MD 5 mg at 01/14/25 2048 HYDROmorphone (DILAUDID) injection 2 mg 2 mg intravenous Q3H PRN Casey Paz MD 2 mg at 01/15/25 0838 naloxone (NARCAN) 0.4 mg/mL injection 0.4 mg 0.4 mg intravenous Q10 Min PRN Rasta Garcia MD ondansetron ODT (ZOFRAN-ODT) disintegrating tablet 4 mg 4 mg oral Q6H PRN Rasta Garcia MD Or ondansetron (ZOFRAN) injection 4 mg 4 mg intravenous Q6H PRN Rasta Garcia MD 4 mg at 01/08/25 1130 oxyCODONE ER (OxyCONTIN) extended release tablet 10 mg 10 mg oral Q12H Casey Christianson MD 10 mg at 01/15/25 0957 oxyCODONE-acetaminophen (PERCOCET) 10-325 mg per tablet 3 tablet 3 tablet oral Q6H PRN Casey Paz MD 3 tablet at 01/12/25 1432 polyethylene glycol (MIRALAX) packet 17 g 17 g oral Daily PRN Rasta Garcia MD potassium chloride ER (KLOR-CON) extended release tablet 40 mEq 40 mEq oral Once Casey Paz MD sodium chloride 0.9% flush 0.5-20 mL 0.5-20 mL intra-catheter Q8H [facility] Rasta Garcia MD 10 mL at 01/14/25 1045 sodium chloride 0.9% flush 0.5-20 mL 0.5-20 mL intra-catheter PRN Rasta Garcia MD 10 mL at 01/12/25 1957 sodium chloride 0.9% flush 10 mL 10 mL intra-catheter Q12H Casey Christianson MD 10 mL at 01/15/25 0958 sodium chloride 0.9% flush 10 mL 10 mL intra-catheter Q12H [facility] Casey Paz MD 10 mL at 01/15/25 0958 sodium chloride 0.9% flush 10-20 mL 10-20 mL intra-catheter PRN Casey Paz MD sodium chloride 0.9% flush 10-20 mL 10-20 mL intra-catheter PRN Casey Paz MD sodium chloride 0.9% infusion 50 mL/hr intravenous Continuous Casey Paz MD 50 mL/hr at 01/15/25 0225 50 mL/hr at 01/15/25 0225 A/P: Principal Problem: Acute sickle cell crisis (HCC) Resolved Problems: No resolved hospital problems. Assessment and plan 01/15/2025 Sickle Cell Disease with Pain Crisis -do not suspect acute chest at this time -Today patient is complaining of severe pain -IV hydration with ns. Pain is not well controlled. 30 mg of [place] q.6 hours. Will continue Dilaudid. onextended release oxycodone b.i.d. scheduled.. Hemoglobin is 7.3. Reticulocyte count is trendingdown but still elevated. Patient is still complaining of pain. He has been on Dilaudid 2 mg q.3 hours for several days. I discussed with the patient wanted to cut down the Dilaudid but he started agreeable to that as he saysthat his very tolerant and his pain gets worse. Will continue for now. -Oncology is following. Continue folic acid. Will transfuse if hemoglobin drops below 7 Cough. Chest x-ray suggestive of pulmonary edema or infiltrates. Started on Mucinex and Tessalon Perles azithromycin. Patient refused take azithromycin. Patient is on room air. Abdominal pain -negative for acute findings Hypokalemia Potassium is 3.2. Will replace with potassium chloride. repeat BNP Hx Adrenal Insufficiency -cont home cortef 10mg qam and 5mg qpm Hx Avascular necrosis of bilateral hips and shoulders DVT prophylaxis: Lovenox Discussed with patient and bedside nurse Case discussed with Case Management and Employee Benefits Coordinator Medical complexity/risk: low My total encounter time on 01/15/2025 was 26 minutes which was spent in the activities documented inthe note. This includes time spent prior to the visit and after the visit in direct care of the patient. This time does not include time spent in any separately reportable services. Voice recognition software MModal Fluency Direct may have been used dictate and transcribe this document. Research Methods Instructor variances may occur. Despite proofreading, typographical errors may occur. Casey Paz MD 01/15/2025 10:13 AM * Cha Wallace - 01/14/2025 3:19 PM CDT Spiritual Care Note Cha Wallace M.Div. B[facility] Mr. Cheung does not articulate any needs at this time. Declined prayer. 01/14/25 1500 Time Spent Start Time 1515 Patient Spiritual Assessment Spirituality Assessed Yes Muslim Affiliation Cheondoism Clinical Encounter Type Visited With Patient Response Type Routine visit Advance Directives (For Healthcare) Advance Directive Patient does not have advance directive Interventions Interventions Offer spiritual/worship support * Casey Paz MD - 01/14/2025 2:07 PM CDT Images from the original note were not included. General Medicine Daily Progress SUBJECTIVE 01/11/2025 I have seen and examined the patient today. Patient was complaining of cough. Also complains of pain which is not well controlled yet. 01/12/2025 I have seen and examined the patient today. Patient was complaining of severe pain. 01/13/2025 I have seen and examined the patient today. Patient is still complaining of severe pain 02/0201/14/2025 I have seen and examined the patient today. Patient is still complaining of pain 03/04. OBJECTIVE Vitals: 24hr Min/Max: Temp Min: 36.5 ??C (97.7 ??F) Max: 37 ??C (98.6 ??F) Pulse Min: 76 Max: 89 BP Min: 117/82 Max: 137/86 Resp Min: 18 Max: 19 SpO2 Min: 93 % Max: 97 % Most Recent : Vitals: 01/14/25 0727 BP: 123/79 Pulse: 76 Resp: 19 Temp: 37 ??C (98.6 ??F) SpO2: 97% I/O last 2 completed shifts: In: 1981.7 [P.O.:120; I.V.:1861.7] Out: 3775 [Urine:3775] I/O this shift: In: - Out: 1500 [Urine:1500] Physical Exam: General appearance: Not in acute distress Lungs CTA Heart: [id number], no significant murmur or gallop Abd: +BS, Non Tender, Non distended, No gross hepatomegaly Lower Ext: No gross edema, pedal artery pulses are palpable bilaterally Neuro: No new deficits appreciated Musculoskeletal: no gross joint erythema, edema, tenderness Skin: No new change Lab/Current Medication Review: Recent Results (from the past 24 hours) Basic metabolic panel Collection Time: 01/14/25 6:18 AM Result Value Ref Range Sodium 137 135 - 145 mmol/L Potassium, pl 3.5 3.3 - 4.9 mmol/L Chloride 103 97 - 110 mmol/L CO2 24 22 - 32 mmol/L Anion gap 10 2 - 15 mmol/L BUN 2 (L) 6 - 25 mg/dL Creatinine 0.45 (L) 0.80 - 1.30 mg/dL Glucose 141 70 - 199 mg/dL Calcium 8.8 8.5 - 10.3 mg/dL CBC with auto differential Collection Time: 01/14/25 6:18 AM Result Value Ref Range WBC 9.03 3.80 - 9.90 K/cumm Hgb 7.5 (L) 13.0 - 17.5 g/dL Hct 21.8 (L) 38.9 - 50.3 % Plt 287 150 - 400 K/cumm MPV 10.1 9.1 - 12.3 fL RBC 2.47 (L) 4.30 - 5.80 M/cumm MCV 88.3 81.3 - 96.4 fL MCH 30.4 27.1 - 33.3 pg MCHC 34.4 32.3 - 35.7 g/dL RDW CV 22.0 (H) 11.1 - 14.9 % RDW SD 69.9 (H) 35.7 - 48.1 fL NRBC abs 0.18 (H) 0.00 - 0.01 K/cumm Morphologic Screen Results confirmed by manual morphology review. Reticulocyte Count Collection Time: 01/14/25 6:18 AM Result Value Ref Range Retics, absolute 537 (H) 20 - 87 K/cumm Retics 21.5 (H) 0.4 - 2.9 % Reticulocyte Hgb 28.4 (L) 30.5 - 38.0 pg Differential, auto Collection Time: 01/14/25 6:18 AM Result Value Ref Range Neutrophil abs 4.75 1.50 - 6.50 K/cumm Imm gran abs 0.04 0.00 - 0.10 K/cumm Lymphocyte abs 3.30 0.80 - 3.30 K/cumm Monocyte abs 0.76 0.20 - 0.80 K/cumm Eosinophil abs 0.14 0.00 - 0.50 K/cumm Basophil abs 0.04 0.00 - 0.10 K/cumm Neutrophil pct 52.7 % Imm gran pct 0.4 % Lymphocyte pct 36.5 % Monocyte pct 8.4 % Eosinophil pct 1.6 % Basophil pct 0.4 % eGFR Collection Time: 01/14/25 6:18 AM Result Value Ref Range eGFR >90 >=60 mL/min/1.73 m2 Imaging Current Facility-Administered Medications Medication Dose Route Frequency Provider Last Rate Last Admin azithromycin (ZITHROMAX) tablet 500 mg 500 mg oral Daily Casey Paz MD 500 mg at 030 benzonatate (TESSALON) capsule 100 mg 100 mg oral TID Casey Paz MD 100 mg at 01/13/25 2339 Carrier Fluids for Secondary Infusion - 0.9% Sodium Chloride 30 mL intravenous PRN Rasta Garcia MD diphenhydrAMINE (BENADRYL) tab/cap 25 mg 25 mg oral QID PRN Rasta Garcia MD 25 mg at 01/02/25 1252 enoxaparin (LOVENOX) syringe 40 mg 40 mg subcutaneous Daily-2100 Rasta Garcia MD folic acid (FOLVITE) tablet 1 mg 1 mg oral Daily Rasta Garcia MD 1 mg at 01/14/25 1144 guaiFENesin ER (MUCINEX) extended release tablet 600 mg 600 mg oral BID Casey Paz MD 600 mg at 01/13/25 2339 hydrocortisone (CORTEF) tablet 10 mg 10 mg oral Daily Rasta Garcia MD 10 mg at 01/14/25 1144 hydrocortisone (CORTEF) tablet 5 mg 5 mg oral Nightly Rasta Garcia MD 5 mg at 01/13/25 2338 HYDROmorphone (DILAUDID) injection 2 mg 2 mg intravenous Q3H PRN Jaya Garcia DO 2 mg at 01/14/25 1348 naloxone (NARCAN) 0.4 mg/mL injection 0.4 mg 0.4 mg intravenous Q10 Min PRN Rasta Garcia MD ondansetron ODT (ZOFRAN-ODT) disintegrating tablet 4 mg 4 mg oral Q6H PRN Rasta Garcia MD Or ondansetron (ZOFRAN) injection 4 mg 4 mg intravenous Q6H PRN Rasta Garcia MD 4 mg at 01/08/25 1130 oxyCODONE ER (OxyCONTIN) extended release tablet 10 mg 10 mg oral Q12H Casey Christianson MD 10 mg at 01/14/25 1144 oxyCODONE-acetaminophen (PERCOCET) 10-325 mg per tablet 3 tablet 3 tablet oral Q6H PRN Casey Paz MD 3 tablet at 01/12/25 1432 polyethylene glycol (MIRALAX) packet 17 g 17 g oral Daily PRN Rasta Garcia MD sodium chloride 0.9% flush 0.5-20 mL 0.5-20 mL intra-catheter Q8H [facility] Rasta Garcia MD 10 mL at 01/14/25 1045 sodium chloride 0.9% flush 0.5-20 mL 0.5-20 mL intra-catheter PRN Rasta Garcia MD 10 mL at 01/12/25 1957 sodium chloride 0.9% flush 10 mL 10 mL intra-catheter Q12H Casey Christianson MD 10 mL at 01/14/25 0741 sodium chloride 0.9% flush 10 mL 10 mL intra-catheter Q12H [facility] Casey Paz MD 10 mL at 01/14/25 0741 sodium chloride 0.9% flush 10-20 mL 10-20 mL intra-catheter PRN Casey Paz MD sodium chloride 0.9% flush 10-20 mL 10-20 mL intra-catheter PRN Casey Paz MD sodium chloride 0.9% infusion 50 mL/hr intravenous Continuous Casey Paz MD 50 mL/hr at 01/14/25 0746 50 mL/hr at 01/14/25 0746 A/P: Principal Problem: Acute sickle cell crisis (HCC) Resolved Problems: No resolved hospital problems. Assessment and plan 01/14/2025 Sickle Cell Disease with Pain Crisis -do not suspect acute chest at this time -Today patient is complaining of severe pain -IV hydration with ns. Pain is not well controlled. 30 mg of [place] q.6 hours. Will continue Dilaudid. I added extended release oxycodone b.i.d. scheduled.. Hemoglobin is 7.5. Collar site count is trending down but still elevated. -Oncology is following. Continue folic acid. Will transfuse if hemoglobin drops below 7 Patient was still requiring IV Dilaudid. Will try to decrease IV from tomorrow and if needed I willincrease the extended release oxycodone dose. Cough. Chest x-ray suggestive of pulmonary edema or infiltrates. Started on Mucinex and Tessalon Perles will start azithromycin. Patient refused take azithromycin. Patient is on room air. Abdominal pain -negative for acute findings Hypokalemia Resolved. Potassium is 3.7 repeat BNP Hx Adrenal Insufficiency -cont home cortef 10mg qam and 5mg qpm Hx Avascular necrosis of bilateral hips and shoulders DVT prophylaxis: Lovenox Discussed with patient and bedside nurse Case discussed with Case Management and Employee Benefits Coordinator Medical complexity/risk: low My total encounter time on 01/14/2025 was 26 minutes which was spent in the activities documented inthe note. This includes time spent prior to the visit and after the visit in direct care of the patient. This time does not include time spent in any separately reportable services. Voice recognition software [employer] Direct may have been used dictate and transcribe this document. Research Methods Instructor variances may occur. Despite proofreading, typographical errors may occur. Casey Paz MD 01/14/2025 2:07 PM * Casey Paz MD - 01/13/2025 1:29 PM CDT Images from the original note were not included. General Medicine Daily Progress SUBJECTIVE 01/11/2025 I have seen and examined the patient today. Patient was complaining of cough. Also complains of pain which is not well controlled yet. 01/12/2025 I have seen and examined the patient today. Patient was complaining of severe pain. 01/13/2025 I have seen and examined the patient today. Patient is still complaining of severe pain 02/02 OBJECTIVE Vitals: 24hr Min/Max: Temp Min: 36.7 ??C (98.1 ??F) Max: 36.7 ??C (98.1 ??F) Pulse Min: 79 Max: 84 BP Min: 113/83 Max: 141/104 Resp Min: 18 Max: 18 SpO2 Min: 93 % Max: 95 % Most Recent : Vitals: 01/12/252014 BP: 113/83 Pulse: 79 Resp: 18 SpO2: 95% I/O last 2 completed shifts: In: 950 [I.V.:950] Out: 2550 [Urine:2550] I/O this shift: In: - Out: 1050 [Urine:1050] Physical Exam: General appearance: Not in acute distress Lungs CTA Heart: [id number], no significant murmur or gallop Abd: +BS, Non Tender, Non distended, No gross hepatomegaly Lower Ext: No gross edema, pedal artery pulses are palpable bilaterally Neuro: No new deficits appreciated Musculoskeletal: no gross joint erythema, edema, tenderness Skin: No new change Lab/Current Medication Review: No results found for this or any previous visit (from the past 24 hours). Imaging Current Facility-Administered Medications Medication Dose Route Frequency Provider Last Rate Last Admin azithromycin (ZITHROMAX) tablet 500 mg 500 mg oral Daily Casey Paz MD 500 mg at 030 benzonatate (TESSALON) capsule 100 mg 100 mg oral TID Casey Paz MD Carrier Fluids for Secondary Infusion - 0.9% Sodium Chloride 30 mL intravenous PRN Rasta Garcia MD diphenhydrAMINE (BENADRYL) tab/cap 25 mg 25 mg oral QID PRN Rasta Garcia MD 25 mg at 01/02/25 1252 enoxaparin (LOVENOX) syringe 40 mg 40 mg subcutaneous Daily-2099 Rasta Garcia MD folic acid (FOLVITE) tablet 1 mg 1 mg oral Daily Rasta Garcia MD 1 mg at 01/12/25 1030 guaiFENesin ER (MUCINEX) extended release tablet 600 mg 600 mg oral BID Casey Paz MD 600mg at 01/11/25 1312 hydrocortisone (CORTEF) tablet 10 mg 10 mg oral Daily Rasta Garcia MD 10 mg at 01/12/25 103 hydrocortisone (CORTEF) tablet 5 mg 5 mg oral Nightly Rasta Garcia MD 5 mg at 08/18/25 2022 HYDROmorphone (DILAUDID) injection 2 mg 2 mg intravenous Q3H PRN Garcia, Jaya, DO 2 mg at 01/13/25 1035 lidocaine (PF) (XYLOCAINE) 10 mg/mL (1 %) preservative free injection 10-20 mg 1-2 mL subcutaneous Once Casey Paz MD naloxone (NARCAN) 0.4 mg/mL injection 0.4 mg 0.4 mg intravenous Q10 Min PRN Rasta Garcia MD ondansetron ODT (ZOFRAN-ODT) disintegrating tablet 4 mg 4 mg oral Q6H PRN Rasta Garcia MD Or ondansetron (ZOFRAN) injection 4 mg 4 mg intravenous Q6H PRN Rasta Garcia MD 4 mg at 01/08/25 1130 oxyCODONE ER (OxyCONTIN) extended release tablet 10 mg 10 mg oral Q12H [facility] Casey Paz MD 10 mg at 01/13/25 0914 oxyCODONE-acetaminophen (PERCOCET) 10-325 mg per tablet 3 tablet 3 tablet oral Q6H PRN Casey Paz MD 3 tablet at 01/12/25 1432 polyethylene glycol (MIRALAX) packet 17 g 17 g oral Daily PRN Rasta Garcia MD sodium chloride 0.9% flush 0.5-20 mL 0.5-20 mL intra-catheter Q8H Rasta Murphy MD 10 mL at 01/11/25 1607 sodium chloride 0.9% flush 0.5-20 mL 0.5-20 mL intra-catheter PRN Rasta Garcia MD 10 mL at 01/12/25 1957 sodium chloride 0.9% flush 10 mL 10 mL intra-catheter Q12H Casey Christianson MD sodium chloride 0.9% flush 10 mL 10 mL intra-catheter Q12H Casey Christianson MD sodium chloride 0.9% flush 10-20 mL 10-20 mL intra-catheter PRN Casey Paz MD sodium chloride 0.9% flush 10-20 mL 10-20 mL intra-catheter PRN Casey Paz MD sodium chloride 0.9% infusion 50 mL/hr intravenous Continuous Casey Paz MD 50 mL/hr at 01/13/25 1212 50 mL/hr at 01/13/25 1212 A/P: Principal Problem: Acute sickle cell crisis (HCC) Resolved Problems: No resolved hospital problems. Assessment and plan 01/13/2025 Sickle Cell Disease with Pain Crisis -do not suspect acute chest at this time -Today patient is complaining of severe pain -IV hydration with ns. Pain is not well controlled. 30 mg of [place] q.6 hours. Will continue Dilaudid. I added extended release oxycodone b.i.d. scheduled.. Yesterday he refused to take extended oxycodone and also refused blood work for last 2 days. I discussed with patient again. Patient is now agreeable to take extended release oxycodone. And also agreeable for work if patient had a midline. Will was ordered. Will follow up blood resolved. -Cont benadryl po prn, folic acid -daily retic and cbc w/diff -Chest x-ray was unremarkable. -Oncology is following. Continue folic acid. Will transfuse if hemoglobin drops below 7 Cough. Chest x-ray suggestive of pulmonary edema or infiltrates. Started on Mucinex and Tessalon Perles will start azithromycin. Patient refused take azithromycin. Patient is on room air. Abdominal pain -negative for acute findings Hypokalemia Resolved. Potassium is 3.7 repeat BNP Hx Adrenal Insufficiency -cont home cortef 10mg qam and 5mg qpm Hx Avascular necrosis of bilateral hips and shoulders DVT prophylaxis: Lovenox Discussed with patient and bedside nurse Case discussed with Case Management and Employee Benefits Coordinator Medical complexity/risk: low My total encounter time on 01/13/2025 was 26 minutes which was spent in the activities documented inthe note. This includes time spent prior to the visit and after the visit in direct care of the patient. This time does not include time spent in any separately reportable services. Voice recognition software MModal Fluency Direct may have been used dictate and transcribe this document. Research Methods Instructor variances may occur. Despite proofreading, typographical errors may occur. Casey Paz MD 01/13/2025 1:29 PM * Timoteo Luciana M., HONEY LIQUEFIER - 01/13/2025 8:14 AM CDT Oncology Medicine Daily Progress SUBJECTIVE: Chief complaint of sickle cell crisis pain. Interval History: Patient is examined resting in bed. He reports he is still having pain but seems to be getting better. Denies CP or dyspnea. No fever or chills He is frustrated as lab had been unable to adequately obtain blood specimens on him He is also having issues with his IV. Review of Systems All other systems reviewed and are negative. OBJECTIVE: Vitals: 24hr Min/Max: Temp Min: 36.7 ??C (98.1 ??F) Max: 36.8 ??C (98.2 ??F) Pulse Min: 77 Max: 84 BP Min: 113/83 Max: 141/104 Resp Min: 18 Max: 20 SpO2 Min: 93 % Max: 97 % .Temp (24hrs), Av.8 ??C (98.2 ??F), Min:36.7 ??C (98.1 ??F), Max:36.8 ??C (98.2 ??F) Most Recent : Vitals: 01/12/25 0437 01/12/25 0826 01/12/25 1712 01/12/252014 BP: 106/71 119/79 (!) 141/104 113/83 BP Location: Right arm Right arm Right arm Patient Position: Lying Lying Lying Pulse: 72 77 84 79 Resp: 20 18 Temp: 36.8 ??C (98.2 ??F) 36.7 ??C (98.1 ??F) TempSrc: Oral Oral SpO2: 93% 97% 93% 95% Weight: Height: ECO I/O last 2 completed shifts: In: 950 [I.V.:950] Out: 2550 [Urine:2550] No intake/output data recorded. Current Facility-Administered Medications Medication Dose Route Frequency Provider Last Rate Last Admin azithromycin (ZITHROMAX) tablet 500 mg 500 mg oral Daily Casey Paz MD 500 mg at 079887 benzonatate (TESSALON) capsule 100 mg 100 mg oral TID Casey Paz MD Carrier Fluids for Secondary Infusion - 0.9% Sodium Chloride 30 mL intravenous PRN Rasta Garcia MD diphenhydrAMINE (BENADRYL) tab/cap 25 mg 25 mg oral QID PRN Rasta Garcia MD 25 mg at 01/02/25 1252 enoxaparin (LOVENOX) syringe 40 mg 40 mg subcutaneous Daily-2100 Rasta Garcia MD folic acid (FOLVITE) tablet 1 mg 1 mg oral Daily Rasta Garcia MD 1 mg at 01/12/25 1030 guaiFENesin ER (MUCINEX) extended release tablet 600 mg 600 mg oral BID Casey Paz MD 600mg at 01/11/25 1312 hydrocortisone (CORTEF) tablet 10 mg 10 mg oral Daily Rasta Garcia MD 10 mg at 01/12/25 1030 hydrocortisone (CORTEF) tablet 5 mg 5 mg oral Nightly Rasta Garcia MD 5 mg at 01/10/25 202 HYDROmorphone (DILAUDID) injection 2 mg 2 mg intravenous Q3H PRN Jaya Garcia DO 2 mg at 01/13/25 0718 naloxone (NARCAN) 0.4 mg/mL injection 0.4 mg 0.4 mg intravenous Q10 Min PRN Rasta Garcia MD ondansetron ODT (ZOFRAN-ODT) disintegrating tablet 4 mg 4 mg oral Q6H PRN Rasta Garcia MD Or ondansetron (ZOFRAN) injection 4 mg 4 mg intravenous Q6H PRN Rasta Garcia MD 4 mg at 01/08/25 1130 oxyCODONE ER (OxyCONTIN) extended release tablet 10 mg 10 mg oral Q12H [facility] Casey Paz MD oxyCODONE-acetaminophen (PERCOCET) 10-325 mg per tablet 3 tablet 3 tablet oral Q6H PRN Casey Paz MD 3 tablet at 01/12/25 1432 polyethylene glycol (MIRALAX) packet 17 g 17 g oral Daily PRN Rasta Garcia MD sodium chloride 0.9% flush 0.5-20 mL 0.5-20 mL intra-catheter Q8H [facility] Rasta Garcia MD 10 mL at 01/11/25 1607 sodium chloride 0.9% flush 0.5-20 mL 0.5-20 mL intra-catheter PRN Rasta Garcia MD 10 mL at 01/12/251956 sodium chloride 0.9% infusion 50 mL/hr intravenous Continuous Casey Paz MD 50 mL/hr at 01/12/251743 50 mL/hr at 01/12/251743 sodium chloride 0.9%, 50 mL/hr, Last Rate: 50 mL/hr (01/12/251743) azithromycin, 500 mg, oral, Daily benzonatate, 100 mg, oral, TID enoxaparin, 40 mg, subcutaneous, Daily-2100 folic acid, 1 mg, oral, Daily guaiFENesin ER, 600 mg, oral, BID hydrocortisone, 10 mg, oral, Daily hydrocortisone, 5 mg, oral, Nightly oxyCODONE ER, 10 mg, oral, Q12H [facility] sodium chloride 0.9%, 0.5-20 mL, intra-catheter, Q8H [facility] sodium chloride 0.9% diphenhydrAMINE HYDROmorphone OR [DISCONTINUED] HYDROmorphone naloxone ondansetron ODT OR ondansetron oxyCODONE-acetaminophen polyethylene glycol sodium chloride 0.9% Physical Exam: Physical Exam Vitals and nursing note reviewed. Constitutional: Appearance: Normal appearance. He is well-developed. HENT: Head: Normocephalic and atraumatic. Cardiovascular: Rate and Rhythm: Normal rate and regular rhythm. Heart sounds: Normal heart sounds. Pulmonary: Effort: Pulmonary effort is normal. Breath sounds: Normal breath sounds. Skin: General: Skin is warm and dry. Findings: No bruising or rash. Neurological: General: No focal deficit present. Mental Status: He is alert and oriented to person, place, and time. Psychiatric: Attention and Perception: Attention normal. Mood and Affect: Mood normal. Speech: Speech normal. Behavior: Behavior is cooperative. Cognition and Memory: Cognition normal. Lab/Radiology/Diagnostic Review: No results found for this or any previous visit (from the past 24 hours). XR Chest PA Lateral 2 Views Result Date: 01/11/2025 Narrative: EXAM DESCRIPTION: XR CHEST PA LATERAL 2 VIEWS REASON FOR STUDY: cough,fever Cough and fever yesterday TECHNIQUE: Frontal and lateral radiographic view(s) of the chest. COMPARISON: Multipleprevious chest radiographs with the most recent dated 01/10/2025. Chest CT dated 12/23/2024. FINDINGS: Multifocal bilateral opacities as seen on the previous chest radiograph dated 01/10/2025 and could reflect pulmonary edema and/or multifocal pneumonia. No significant pleural effusion. No definitepneumothorax. Cardiomediastinal silhouette projects enlarged. Osseous stigmata of sickle cell disease is again seen. IMPRESSION: No significant change in appearance of the chest when compared to the previous chest radiograph dated 01/10/2025. THIS IS AN ELECTRONICALLY VERIFIED FINAL REPORT 01/11/2025 2:07 PM - Electronically signed by Gee Laboy D.O. AP: AP Report ID: [id number] Reading Location: [id number] XR Chest 1 View Result Date: 01/10/2025 Narrative: EXAM DESCRIPTION: XR CHEST 1 VIEW REASON FOR STUDY: SOB Increased SOB today TECHNIQUE: Single radiographic view(s) of the chest. COMPARISON: Chest radiograph 01/01/2025 FINDINGS: LUNGS: Mild bilateral pulmonary edema. No focal opacity, pleural effusion, or pneumothorax. HEART/MEDIASTINUM: Cardiac silhouette is enlarged in size. Mediastinal and hilar contours appear normal. LINES/TUBES:None. BONES: No acute osseous abnormality. IMPRESSION: Cardiomegaly with mild bilateral pulmonary edema. No pleural effusion THIS IS AN ELECTRONICALLY VERIFIED FINAL REPORT 01/10/2025 2:33 PM - Electronically signed by Anne Merchant M.D. FT: FT Report ID: [id number] Reading Location: [id number] CT Abdomen Pelvis WO Contrast Result Date: 01/08/2025 Narrative: EXAM DESCRIPTION: CT ABDOMEN PELVIS WO CONTRAST REASON FOR STUDY: Abdominal pain, acute,nonlocalized Abd pain RLQ pt. Reports recent appy. treated with abx. TECHNIQUE: CT scan of the abdomen and pelvis performed without intravenous and without oral contrast using helical scanning technique. Reconstructed coronal and sagittal MPR images reviewed. All images stored on PACS. Automated exposure control was used as a dose optimization technique for this examination. COMPARISON: 08/30/2024, 08/13/2024, 02/10/2024 06/26/2023 REFERENCE: Per ACR white paper recommendations, unless otherwise specified no follow-up imaging is recommended for incidental renal and adrenal lesions per consensus recommendations based on imaging criteria. Further lab evaluation could be pursued based on clinical findings. FINDINGS: Absence of intravenous contrast reduces sensitivity for detection of pathology. Findings made within these confines. LOWER CHEST: Mild cardiomegaly. Subsegmental atelectasis. LIVER: No concerning lesions by noncontrast technique. GALLBLADDER/BILE DUCTS: No significant biliaryductal dilatation. SPLEEN: Atrophic. PANCREAS: No significant ductal dilatation or discrete lesion.ADRENALS: No measurable nodule. KIDNEYS/URETERS: No hydronephrosis. No obstructing nephroureterolithiasis. BLADDER/URINARY: No significant bladder wall thickening. REPRODUCTIVE: No significant abnormality. GASTROINTESTINAL: No dilated bowel loops. No obvious wall thickening. Unremarkable appendix similar in appearance over multiple prior examinations. LYMPH NODES: Similar-appearing mildly prominent mesenteric and iliac chain lymph nodes which are nonspecific and possibly reactive. No pathologically enlarged lymphadenopathy. PERITONEUM/RETROPERITONEUM: No ascites or free air. VASCULATURE: No abdominal aortic aneurysm. MUSCULOSKELETAL: Osseous stigmata of sickle cell disease. Heterogeneous serpiginous sclerosis of the bilateral femoral heads compatible with osteonecrosis. No acute displaced fracture. OTHER: No significant abnormality. IMPRESSION: 1. No acute abnormality with the abdomen or pelvis. 2. Similar-appearing mildly prominent mesenteric and iliac chain lymph nodes which are nonspecific and possibly reactive. 3. Osseous stigmata of sickle cell disease. THIS IS AN ELECTRONICALLY VERIFIED FINAL REPORT 01/08/2025 5:00 PM - Electronically signed by Anival Cotton M.D. NS: NS Report ID: [id number] Reading Location: [id number] XR Chest 1 Vw Portable Result Date: 01/01/2025 Narrative: EXAM DESCRIPTION: XR CHEST 1 VIEW REASON FOR STUDY: cp Sickle cells pain x 3 days with chest, leg and foot pain TECHNIQUE: Portable upright AP view of the chest. COMPARISON: 12/23/2024 FINDINGS: LUNGS AND PLEURA: Vascular congestion less severe compared to the prior. No focal opacity, large effusion, or pneumothorax is seen. HEART/MEDIASTINUM: Trachea midline. Cardiac silhouette normalin size. Mediastinal contours appear normal. BONES: Shoulder arthritis. CHEST WALL: Unremarkable. UPPER ABDOMEN: Unremarkable. IMPRESSION: Vascular congestion less severe compared to 12/23/2024. No focal opacity is seen. THIS IS AN ELECTRONICALLY VERIFIED FINAL REPORT 01/01/2025 12:25 AM - Electronically signed by Andrew Stubbs M.D. AR: TOREY Report ID: [id number] Reading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 Frequent safety checks and comfort rounds provided throughout shift. Safety maintained. Voiding without difficulty. Pt repositioned regularly through shift with education given on importanceof preventing pressure injuries, VSS remained stable throughout shift. PRN pain medication given per JUL. Pt currently resting in bed, no further needs at this time. Problem: Discharge Planning Goal: Understanding discharge needs will improve Outcome: Progressing Flowsheets (Taken 01/17/2025 0005) Understanding of discharge needs will improve: Identify discharge barriers Collaborate with case management interdisciplinary team Discuss information regarding discharge instructions Identify discharge learning needs (meds, wound care, etc.) Arrange for needed discharge resources and transportation as appropriate Problem: Lack of Knowledge Goal: Ability to develop a pain control plan will improve Outcome: Progressing Flowsheets (Taken 01/17/2025 0005) Ability to develop a pain control plan will improve: Explain causes of pain and how long pain can be expected to last Teach information regarding pain management Educate pain scale for assessing level of pain Teach notification to healthcare provider of episodes of pain Problem: Medication Goal: Satisfaction with pain management medication regimen will improve Outcome: Progressing Flowsheets (Taken 01/17/20254) Satisfaction with pain management medication regimen will improve: Manage analgesics Evaluate medication effects Assess satisfaction with pain management regimen Report inadequate pain control to healthcare provider Problem: Sensory Goal: Ability to identify factors that increase pain levels will improve while working to decrease the patient's pain levels Outcome: Progressing Flowsheets (Taken 01/17/20254) Ability to identify factors that increase pain levels will improve while working to decrease patients pain levels: Assess pain status Encourage distraction activities Provide hot or cold therapy Assess effects of pain control measures Observe non-verbal cues of discomfort, such as restlessness, muscle tension, or altered vital signs Problem: Coping Goal: Ability to cope will improve Outcome: Progressing Flowsheets (Taken 01/17/20254) Ability to cope will Improve: Assess beliefs of pain Provide emotional support Encourage vebalization of feelings surrounding pain Problem: Health Behavior Goal: Identification of resources available to assist in meeting health care needs will improve Outcome: Progressing Flowsheets (Taken 01/17/20254) Identification of resources available to assist in meeting health care needs will improve: Collaborate with all therapies Problem: Neurosensory Goal: Achieves stable or improved neurological status Outcome: Progressing Flowsheets (Taken 01/17/20254) Achieves Stable or Improved Neurological Status: Assess for and report changes in neurological status Maintain blood pressure and fluid volume within ordered parameters to optimize cerebral perfusion and minimize risk of hemorrhage Monitor temperature, glucose, and sodium. Initiate appropriate interventions as ordered Goal: Achieves maximal functionality and self care Outcome: Progressing Flowsheets (Taken 01/17/20254) Achieves maximal functionality and self care: Monitor swallowing and airway patency with patient fatigue and changes in neurological status Encourage and assist patient to increase activity and self care with guidance from therapies Encourage visually impaired, hearing impaired and aphasic patients to use assistive/communication devices Problem: Respiratory Goal: Achieves optimal ventilation and oxygenation Outcome: Progressing Flowsheets (Taken 01/17/20254) Achieves optimal ventilation and oxygenation: Assess for changes in respiratory status Assess for changes in mentation and behavior Position to facilitate oxygenation and minimize respiratory effort Perform cluster care Goal: Ability to maintain a clear airway will improve Outcome: Progressing Flowsheets (Taken 01/17/2025 0005) Ability to maintain a clear airway will improve: Evaluate breath sounds Problem: Cardiovascular Goal: Maintains optimal cardiac output and hemodynamic stability Outcome: Progressing Flowsheets (Taken 01/17/20254) Maintain optimal cardiac output and hemodynamic Stability: Monitor vital signs, rhythm, and trends Monitor for bleeding, hypotension and signs of decreased cardiac output Assess quality of pulses, skin color and temperature Monitor urine output and notify provider of values outside normal range Goal: Absence of cardiac dysrhythmias or at baseline Outcome: Progressing Flowsheets (Taken 01/03/2025 0142 by Janet Zuniga RN) Absence of cardiac dysrhythmias or at baseline: Continuous cardiac monitoring, monitor vital signs,obtain 12 lead EKG if indicated Goal: Cardiovascular status will improve Outcome: Progressing Flowsheets (Taken 01/17/20254) Cardiovascular status will improve: Monitor for signs and symptoms of chest pain Problem: Skin/Tissue Integrity Goal: Skin integrity remains intact Outcome: Progressing Flowsheets (Taken 01/17/20254) Skin integrity remains intact: Assess and document risk factors for pressure injury development Assess and document skin integrity Monitor for areas of redness and/or skin breakdown * Plan of Care - Cheyanne Hines RN - 01/17/2025 3:35 PM CDT CM Care Progression Expected Discharge Date and Time Expected Discharge Date Jan 17, 2025 Next steps with the transition plan: Retic count continues to trend down. IV Dilaudid has been weaned to 1mg q3hrs. Oxycontin ER PO BID. Has refused the evening dose for several days now. Will anticipate discharge in the AM. No needs identified. This discharge plan has been discussed with patient and care team with agreement to the post-acute care plan and understanding of the expectations for discharge when medically ready. 01/17/25 1535 Discharge Planning Support System Friends/neighbors Anticipated discharge level of care Private residence Does the patient need discharge transport arranged? Yes Type of Transportation Medicaid transport Has discharge transport been arranged? No Post Acute Care Plan Post Acute Care Needs Identified No Cheyanne Hines RN * Plan of Care - Sheree Rizo RN - 01/17/2025 8:32 AM CDT Problem: Discharge Planning Goal: Understanding discharge needs will improve Outcome: Progressing Problem: Lack of Knowledge Goal: Ability to develop a pain control plan will improve Outcome: Progressing Problem: Medication Goal: Satisfaction with pain management medication regimen will improve Outcome: Progressing Problem: Sensory Goal: Ability to identify factors that increase pain levels will improve while working to decrease the patient's pain levels Outcome: Progressing Problem: Coping Goal: Ability to cope will improve Outcome: Progressing Problem: Health Behavior Goal: Identification of resources available to assist in meeting health care needs will improve Outcome: Progressing Problem: Neurosensory Goal: Achieves stable or improved neurological status Outcome: Progressing Goal: Achieves maximal functionality and self care Outcome: Progressing Problem: Respiratory Goal: Achieves optimal ventilation and oxygenation Outcome: Progressing Goal: Ability to maintain a clear airway will improve Outcome: Progressing Problem: Cardiovascular Goal: Maintains optimal cardiac output and hemodynamic stability Outcome: Progressing Goal: Absence of cardiac dysrhythmias or at baseline Outcome: Progressing Goal: Cardiovascular status will improve Outcome: Progressing Problem: Skin/Tissue Integrity Goal: Skin integrity remains intact Outcome: Progressing Goal: Oral mucous membranes remain intact Outcome: Progressing Problem: Musculoskeletal Goal: Return mobility to safest level of function Outcome: Progressing Goal: Return ADL status to a safe level of function Outcome: Progressing Goal: Ability to perform activities at highest level will improve Outcome: Progressing Goal: Mobility, ROM and muscle strength will improve Outcome: Progressing Problem: Genitourinary Goal: Absence of urinary retention Outcome: Progressing Problem: Metabolic/Fluid and Electrolytes Goal: Electrolytes maintained within normal limits Outcome: Progressing Goal: Hemodynamic stability and optimal renal function maintained Outcome: Progressing Problem: Hematologic Goal: Maintains hematologic stability Outcome: Progressing Problem: Gastrointestinal Goal: Maintains or returns to baseline bowel function Outcome: Progressing Goal: Maintains adequate nutritional intake Outcome: Progressing Goals: Clinical Goals for the Shift: VSS, Pain control, Rest, Comfort, Safety Technical Publications Manager Patient Centered Goal for Treatment: Safe DC Summary: VSS * Plan of Care - Kelsie Goodson RN - 01/17/2025 5:55 AM CDT Goals: Clinical Goals for the Shift: pain control. Technical Publications Manager Patient Centered Goal for Treatment: D/c home. Summary: Assessment of patient???s baseline is established at the beginning of the shift in flowsheets. Patient reassessed per order, unexpected findings and/or deviations from baseline are captured in flowsheets. Frequent safety checks and comfort rounds provided throughout shift. Orders and/or nursing care completed as indicated. Patient monitored for response to interventions and treatments asdocumented in flowsheets. Plan of care discussed with patient/automobile rental representative, including as it relates to sickle cell crisis Patient progressing. Education provided includes Discharge Planning and Fall Prevention. Patient and/or automobile rental representative Verbalizes understanding. Problem: Discharge Planning Goal: Understanding discharge needs will improve Outcome: Progressing Flowsheets (Taken 01/17/20254) Understanding of discharge needs will improve: Identify discharge barriers Collaborate with case management interdisciplinary team Discuss information regarding discharge instructions Identify discharge learning needs (meds, wound care, etc.) Arrange for needed discharge resources and transportation as appropriate Problem: Lack of Knowledge Goal: Ability to develop a pain control plan will improve Outcome: Progressing Flowsheets (Taken 01/17/20254) Ability to develop a pain control plan will improve: Explain causes of pain and how long pain can be expected to last Teach information regarding pain management Educate pain scale for assessing level of pain Teach notification to healthcare provider of episodes of pain Problem: Medication Goal: Satisfaction with pain management medication regimen will improve Outcome: Progressing Flowsheets (Taken 01/17/20254) Satisfaction with pain management medication regimen will improve: Manage analgesics Evaluate medication effects Assess satisfaction with pain management regimen Report inadequate pain control to healthcare provider Problem: Sensory Goal: Ability to identify factors that increase pain levels will improve while working to decrease the patient's pain levels Outcome: Progressing Flowsheets (Taken 01/17/20254) Ability to identify factors that increase pain levels will improve while working to decrease patients pain levels: Assess pain status Encourage distraction activities Provide hot or cold therapy Assess effects of pain control measures Observe non-verbal cues of discomfort, such as restlessness, muscle tension, or altered vital signs Problem: Coping Goal: Ability to cope will improve Outcome: Progressing Flowsheets (Taken 01/17/20254) Ability to cope will Improve: Assess beliefs of pain Provide emotional support Encourage vebalization of feelings surrounding pain Problem: Health Behavior Goal: Identification of resources available to assist in meeting health care needs will improve Outcome: Progressing Flowsheets (Taken 01/17/20254) Identification of resources available to assist in meeting health care needs will improve: Collaborate with all therapies Problem: Neurosensory Goal: Achieves stable or improved neurological status Outcome: Progressing Flowsheets (Taken 01/17/20254) Achieves Stable or Improved Neurological Status: Assess for and report changes in neurological status Maintain blood pressure and fluid volume within ordered parameters to optimize cerebral perfusion and minimize risk of hemorrhage Monitor temperature, glucose, and sodium. Initiate appropriate interventions as ordered Goal: Achieves maximal functionality and self care Outcome: Progressing Flowsheets (Taken 01/17/20254) Achieves maximal functionality and self care: Monitor swallowing and airway patency with patient fatigue and changes in neurological status Encourage and assist patient to increase activity and self care with guidance from therapies Encourage visually impaired, hearing impaired and aphasic patients to use assistive/communication devices Problem: Respiratory Goal: Achieves optimal ventilation and oxygenation Outcome: Progressing Flowsheets (Taken 01/17/20254) Achieves optimal ventilation and oxygenation: Assess for changes in respiratory status Assess for changes in mentation and behavior Position to facilitate oxygenation and minimize respiratory effort Perform cluster care Goal: Ability to maintain a clear airway will improve Outcome: Progressing Flowsheets (Taken 01/17/20254) Ability to maintain a clear airway will improve: Evaluate breath sounds Problem: Cardiovascular Goal: Maintains optimal cardiac output and hemodynamic stability Outcome: Progressing Flowsheets (Taken 01/17/20254) Maintain optimal cardiac output and hemodynamic Stability: Monitor vital signs, rhythm, and trends Monitor for bleeding, hypotension and signs of decreased cardiac output Assess quality of pulses, skin color and temperature Monitor urine output and notify provider of values outside normal range Goal: Absence of cardiac dysrhythmias or at baseline Outcome: Progressing Goal: Cardiovascular status will improve Outcome: Progressing Flowsheets (Taken 01/17/20254) Cardiovascular status will improve: Monitor for signs and symptoms of chest pain Problem: Skin/Tissue Integrity Goal: Skin integrity remains intact Outcome: Progressing Flowsheets (Taken 01/17/20254) Skin integrity remains intact: Assess and document risk factors for pressure injury development Assess and document skin integrity Monitor for areas of redness and/or skin breakdown Goal: Oral mucous membranes remain intact Outcome: Progressing Problem: Musculoskeletal Goal: Return mobility to safest level of function Outcome: Progressing Flowsheets (Taken 01/17/20254) Return mobility to safest level of function: Assess patient stability and activity tolerance for standing, transferring and ambulating with or without assistive devices Assist with transfers and ambulation using safe patient handling equipment as needed * Plan of Care - Kelsie Og RN - 01/16/2025 4:03 PM CDT Problem: Discharge Planning Goal: Understanding discharge needs will improve Outcome: Progressing Problem: Medication Goal: Satisfaction with pain management medication regimen will improve Outcome: Progressing Problem: Health Behavior Goal: Identification of resources available to assist in meeting health care needs will improve Outcome: Progressing Problem: Neurosensory Goal: Achieves stable or improved neurological status Outcome: Progressing Goals: Clinical Goals for the Shift: pain control. [facility] Goal for Treatment: D/c home. Summary: * Incidental Note - Casey Paz MD - 01/16/2025 2:32 PM CDT I got a secure chat from the nurse that patient had chest pain which is right- sided after patient is started on blood transfusion. Blood transfusion was stopped. Chest x-ray was negative. I order troponins and EKG. Does not seem patient had any severe reaction. If pain gets worse will get hydrocortisone and IV Benadryl. At this time patient is stable. Will not continue the transfusion at this time. * Plan of Care - Roshan Dunn RN - 01/16/2025 5:03 AM CDT Problem: Discharge Planning Goal: Understanding discharge needs will improve Outcome: Progressing Problem: Lack of Knowledge Goal: Ability to develop a pain control plan will improve Outcome: Progressing Problem: Medication Goal: Satisfaction with pain management medication regimen will improve Outcome: Progressing Problem: Sensory Goal: Ability to identify factors that increase pain levels will improve while working to decrease the patient's pain levels Outcome: Progressing Problem: Coping Goal: Ability to cope will improve Outcome: Progressing Problem: Health Behavior Goal: Identification of resources available to assist in meeting health care needs will improve Outcome: Progressing Problem: Neurosensory Goal: Achieves stable or improved neurological status Outcome: Progressing Goal: Achieves maximal functionality and self care Outcome: Progressing Problem: Respiratory Goal: Achieves optimal ventilation and oxygenation Outcome: Progressing Goal: Ability to maintain a clear airway will improve Outcome: Progressing Problem: Cardiovascular Goal: Maintains optimal cardiac output and hemodynamic stability Outcome: Progressing Goal: Absence of cardiac dysrhythmias or at baseline Outcome: Progressing Goal: Cardiovascular status will improve Outcome: Progressing Problem: Skin/Tissue Integrity Goal: Skin integrity remains intact Outcome: Progressing Goal: Oral mucous membranes remain intact Outcome: Progressing Problem: Musculoskeletal Goal: Return mobility to safest level of function Outcome: Progressing Goal: Return ADL status to a safe level of function Outcome: Progressing Goal: Ability to perform activities at highest level will improve Outcome: Progressing Goal: Mobility, ROM and muscle strength will improve Outcome: Progressing Problem: Genitourinary Goal: Absence of urinary retention Outcome: Progressing Problem: Metabolic/Fluid and Electrolytes Goal: Electrolytes maintained within normal limits Outcome: Progressing Goal: Hemodynamic stability and optimal renal function maintained Outcome: Progressing Problem: Hematologic Goal: Maintains hematologic stability Outcome: Progressing Problem: Gastrointestinal Goal: Maintains or returns to baseline bowel function Outcome: Progressing Goal: Maintains adequate nutritional intake Outcome: Progressing Goals: Clinical Goals for the Shift: pain control. [facility] Goal for Treatment: D/c home. Summary: * Plan of Joseluis - Kelsie Og RN - 01/15/2025 3:18 PM CDT Problem: Discharge Planning Goal: Understanding discharge needs will improve Outcome: Progressing Problem: Lack of Knowledge Goal: Ability to develop a pain control plan will improve Outcome: Progressing Problem: Coping Goal: Ability to cope will improve Outcome: Progressing Problem: Respiratory Goal: Achieves optimal ventilation and oxygenation Outcome: Progressing Problem: Cardiovascular Goal: Cardiovascular status will improve Outcome: Progressing Problem: Musculoskeletal Goal: Return ADL status to a safe level of function Outcome: Progressing Problem: Gastrointestinal Goal: Maintains or returns to baseline bowel function Outcome: Progressing Goal: Maintains adequate nutritional intake Outcome: Progressing Goals: Clinical Goals for the Shift: pain control. [facility] Goal for Treatment: D/c home. Summary: * Plan of Care - Roshan Dunn RN - 01/15/2025 6:20 AM CDT Problem: Discharge Planning Goal: Understanding discharge needs will improve Outcome: Progressing Problem: Lack of Knowledge Goal: Ability to develop a pain control plan will improve Outcome: Progressing Problem: Medication Goal: Satisfaction with pain management medication regimen will improve Outcome: Progressing Problem: Sensory Goal: Ability to identify factors that increase pain levels will improve while working to decrease the patient's pain levels Outcome: Progressing Problem: Coping Goal: Ability to cope will improve Outcome: Progressing Problem: Health Behavior Goal: Identification of resources available to assist in meeting health care needs will improve Outcome: Progressing Problem: Neurosensory Goal: Achieves stable or improved neurological status Outcome: Progressing Goal: Achieves maximal functionality and self care Outcome: Progressing Problem: Respiratory Goal: Achieves optimal ventilation and oxygenation Outcome: Progressing Goal: Ability to maintain a clear airway will improve Outcome: Progressing Problem: Cardiovascular Goal: Maintains optimal cardiac output and hemodynamic stability Outcome: Progressing Goal: Absence of cardiac dysrhythmias or at baseline Outcome: Progressing Goal: Cardiovascular status will improve Outcome: Progressing Problem: Skin/Tissue Integrity Goal: Skin integrity remains intact Outcome: Progressing Goal: Oral mucous membranes remain intact Outcome: Progressing Problem: Musculoskeletal Goal: Return mobility to safest level of function Outcome: Progressing Goal: Return ADL status to a safe level of function Outcome: Progressing Goal: Ability to perform activities at highest level will improve Outcome: Progressing Goal: Mobility, ROM and muscle strength will improve Outcome: Progressing Problem: Genitourinary Goal: Absence of urinary retention Outcome: Progressing Problem: Metabolic/Fluid and Electrolytes Goal: Electrolytes maintained within normal limits Outcome: Progressing Goal: Hemodynamic stability and optimal renal function maintained Outcome: Progressing Problem: Hematologic Goal: Maintains hematologic stability Outcome: Progressing Problem: Gastrointestinal Goal: Maintains or returns to baseline bowel function Outcome: Progressing Goal: Maintains adequate nutritional intake Outcome: Progressing Goals: Clinical Goals for the Shift: pain control. Technical Publications Manager Patient Centered Goal for Treatment: D/c home. Summary: * Plan of Care - Augustine Alvarez RN - 01/14/2025 2:05 PM CDT Goals: Clinical Goals for the Shift: pain control. [facility] Goal for Treatment: D/c home. Problem: Lack of Knowledge Goal: Ability to develop a pain control plan will improve Outcome: Not Progressing Problem: Medication Goal: Satisfaction with pain management medication regimen will improve Outcome: Not Progressing Problem: Coping Goal: Ability to cope will improve Outcome: Not Progressing Problem: Respiratory Goal: Achieves optimal ventilation and oxygenation Outcome: Progressing Goal: Ability to maintain a clear airway will improve Outcome: Progressing Problem: Skin/Tissue Integrity Goal: Skin integrity remains intact Outcome: Progressing Goal: Oral mucous membranes remain intact Outcome: Progressing Problem: Genitourinary Goal: Absence of urinary retention Outcome: Progressing Problem: Hematologic Goal: Maintains hematologic stability Outcome: Progressing Summary: Pt had no falls/injuries during shift. VSS. A&Ox4. IVF. Prns for pain. Pt refusing to take percocet, MD is aware. Pt consistently rating pain 10/10 or 8/10. Turns self. * Plan of Care - Cheyanne Hines RN - 01/14/2025 7:47 AM CDT CM Care Progression Expected Discharge Date and Time Expected Discharge Date Jan 14, 2025 Next steps with the transition plan: Retic count decreasing. IV pain medications have been adjusted. Attempting to wean to PO meds for discharge. Midline placed yesterday for blood draws per patient's request. Will return home with friends at time of discharge. This discharge plan has been discussed with patient and care team with agreement to the post-acute care plan and understanding of the expectations for discharge when medically ready. 01/14/25 0747 Discharge Planning Support System Friends/neighbors Anticipated discharge level of care Private residence Does the patient need discharge transport arranged? Yes Type of Transportation Medicaid transport Has discharge transport been arranged? No Post Acute Care Plan Post Acute Care Needs Identified No Cheyanne Hines RN * Plan of Care - Kimo Gresham RN - 01/14/2025 5:59 AM CDT Problem: Discharge Planning Goal: Understanding discharge needs will improve Outcome: Progressing Problem: Lack of Knowledge Goal: Ability to develop a pain control plan will improve Outcome: Progressing Problem: Medication Goal: Satisfaction with pain management medication regimen will improve Outcome: Progressing Problem: Sensory Goal: Ability to identify factors that increase pain levels will improve while working to decrease the patient's pain levels Outcome: Progressing Problem: Coping Goal: Ability to cope will improve Outcome: Progressing Problem: Health Behavior Goal: Identification of resources available to assist in meeting health care needs will improve Outcome: Progressing Problem: Neurosensory Goal: Achieves stable or improved neurological status Outcome: Progressing Goal: Achieves maximal functionality and self care Outcome: Progressing Problem: Cardiovascular Goal: Maintains optimal cardiac output and hemodynamic stability Outcome: Progressing Goal: Absence of cardiac dysrhythmias or at baseline Outcome: Progressing Goal: Cardiovascular status will improve Outcome: Progressing Problem: Skin/Tissue Integrity Goal: Skin integrity remains intact Outcome: Progressing Goal: Oral mucous membranes remain intact Outcome: Progressing Problem: Musculoskeletal Goal: Return mobility to safest level of function Outcome: Progressing Goal: Return ADL status to a safe level of function Outcome: Progressing Goal: Ability to perform activities at highest level will improve Outcome: Progressing Goal: Mobility, ROM and muscle strength will improve Outcome: Progressing Problem: Genitourinary Goal: Absence of urinary retention Outcome: Progressing Problem: Metabolic/Fluid and Electrolytes Goal: Electrolytes maintained within normal limits Outcome: Progressing Goal: Hemodynamic stability and optimal renal function maintained Outcome: Progressing Problem: Hematologic Goal: Maintains hematologic stability Outcome: Progressing Problem: Gastrointestinal Goal: Maintains or returns to baseline bowel function Outcome: Progressing Goal: Maintains adequate nutritional intake Outcome: Progressing Goals: Clinical Goals for the Shift: VSS, rest, pain control Technical Publications Manager Patient Centered Goal for Treatment: D/c home. Summary: Assessment of patient???s baseline established at the beginning of the shift in flowsheets. Frequent safety checks and comfort rounds provided. Orders and/or nursing care completed as indicated. Patient monitored for response to interventions and treatments as documented in flowsheets. VS stable. Patient given dilaudid q3h prn for pain. Patient refused to take oxycontin and PO prn pain medication. Safety precautions maintained. Patient resting in bed, respirations even and unlabored atthis time. * Plan of Care - Cheyanne Hines RN - 01/13/2025 9:12 AM CDT CM Care Progression Expected Discharge Date and Time Expected Discharge Date Jan 15, 2025 Next steps with the transition plan: Dilaudid dosing adjusted, now at 2mg q3hrs. Percocet also prescribed q8hrs. Retic count elevated. Will return to friends house upon discharge. No needs identifiedat this time. This discharge plan has been discussed with patient and care team with agreement to the post-acute care plan and understanding of the expectations for discharge when medically ready. 01/13/25 0912 Discharge Planning Support System Friends/neighbors Anticipated discharge level of care Private residence Does the patient need discharge transport arranged? Yes Type of Transportation Medicaid transport Has discharge transport been arranged? No Post Acute Care Plan Post Acute Care Needs Identified No Cheyanne Hines RN * Plan of Care - Jina Castillo RN - 01/13/2025 5:59 AM CDT Problem: Discharge Planning Goal: Understanding discharge needs will improve Outcome: Progressing Problem: Lack of Knowledge Goal: Ability to develop a pain control plan will improve Outcome: Progressing Problem: Medication Goal: Satisfaction with pain management medication regimen will improve Outcome: Progressing Problem: Sensory Goal: Ability to identify factors that increase pain levels will improve while working to decrease the patient's pain levels Outcome: Progressing Problem: Coping Goal: Ability to cope will improve Outcome: Progressing Problem: Health Behavior Goal: Identification of resources available to assist in meeting health care needs will improve Outcome: Progressing Problem: Neurosensory Goal: Achieves stable or improved neurological status Outcome: Progressing Goal: Achieves maximal functionality and self care Outcome: Progressing Problem: Respiratory Goal: Achieves optimal ventilation and oxygenation Outcome: Progressing Goal: Ability to maintain a clear airway will improve Outcome: Progressing Problem: Cardiovascular Goal: Maintains optimal cardiac output and hemodynamic stability Outcome: Progressing Goal: Absence of cardiac dysrhythmias or at baseline Outcome: Progressing Goal: Cardiovascular status will improve Outcome: Progressing Problem: Skin/Tissue Integrity Goal: Skin integrity remains intact Outcome: Progressing Goal: Oral mucous membranes remain intact Outcome: Progressing Problem: Musculoskeletal Goal: Return mobility to safest level of function Outcome: Progressing Goal: Return ADL status to a safe level of function Outcome: Progressing Goal: Ability to perform activities at highest level will improve Outcome: Progressing Goal: Mobility, ROM and muscle strength will improve Outcome: Progressing Problem: Genitourinary Goal: Absence of urinary retention Outcome: Progressing Problem: Metabolic/Fluid and Electrolytes Goal: Electrolytes maintained within normal limits Outcome: Progressing Goal: Hemodynamic stability and optimal renal function maintained Outcome: Progressing Problem: Hematologic Goal: Maintains hematologic stability Outcome: Progressing Problem: Gastrointestinal Goal: Maintains or returns to baseline bowel function Outcome: Progressing Goal: Maintains adequate nutritional intake Outcome: Progressing Goals: Clinical Goals for the Shift: Comfort, safety, VSS, pain control Technical Publications Manager Patient Centered Goal for Treatment: d/c home Summary: Assessment of patient???s baseline is established at the beginning of the shift in flowsheets. Patient reassessed per order, unexpected findings and/or deviations from baseline are captured in flowsheets. Frequent safety checks and comfort rounds provided. Orders and/or nursing care completed as indicated. Patient monitored for response to interventions and treatments as documented in flowsheets. . Plan of care discussed with patient/automobile rental representative, including as it relates to Principal Problem: Acute sickle cell crisis (HCC) Patient progressing. Clinical goals for the shift Comfort, safety, VSS, pain control . Education provided includes Treatments/Therapies: . Patient and/or automobile rental representative Verbalizes understanding. Willcontinue to monitor. Patient resting in bed. Patient called out multiple times throughout the shift for pain control medication and documented in the MAR. Multiple safety rounds completed, wheels locked call light withinreach, call light within reach. Care ongoing * Plan of Care - Luciana Mahmood NP - 01/12/2025 7:59 AM CDT Images from the original note were not included. Follow up Hematology Note for sickle cell crisis pain I reviewed this patient's vital signs, pertinent lab data, imaging, and other provider notes. Pertinent Results Vitals: 24hr Min/Max: Temp Min: 36.7 ??C (98.1 ??F) Max: 37 ??C (98.6 ??F) Pulse Min: 72 Max: 93 BP Min: 98/64 Max: 138/94 Resp Min: 16 Max: 18 SpO2 Min: 93 % Max: 95 % Most Recent : Vitals: 01/12/25 0437 BP: 106/71 Pulse: 72 Resp: Temp: SpO2: 93% Lab/Radiology/Diagnostic Review: Laboratory review: reviewed the laboratory result(s) below Recent Results (from the past 24 hours) Basic metabolic panel Collection Time: 01/11/25 1:12 PM Result Value Ref Range Sodium 138 135 - 145 mmol/L Potassium, pl 3.7 3.3 - 4.9 mmol/L Chloride 103 97 - 110 mmol/L CO2 24 22 - 32 mmol/L Anion gap 11 2 - 15 mmol/L BUN 2 (L) 6 - 25 mg/dL Creatinine 0.50 (L) 0.80 - 1.30 mg/dL Glucose 110 70 - 199 mg/dL Calcium 8.7 8.5 - 10.3 mg/dL CBC with auto differential Collection Time: 01/11/25 1:12 PM Result Value Ref Range WBC 10.21 (H) 3.80 - 9.90 K/cumm Hgb 8.3 (L) 13.0 - 17.5 g/dL Hct 24.3 (L) 38.9 - 50.3 % Plt 379 150 - 400 K/cumm MPV 9.9 9.1 - 12.3 fL RBC 2.82 (L) 4.30 - 5.80 M/cumm MCV 86.2 81.3 - 96.4 fL MCH 29.4 27.1 - 33.3 pg MCHC 34.2 32.3 - 35.7 g/dL RDW CV 23.4 (H) 11.1 - 14.9 % RDW SD 70.7 (H) 35.7 - 48.1 fL NRBC abs 0.23 (H) 0.00 - 0.01 K/cumm Reticulocyte Count Collection Time: 01/11/25 1:12 PM Result Value Ref Range Retics, absolute 585 (H) 20 - 87 K/cumm Retics 20.8 (H) 0.4 - 2.9 % Reticulocyte Hgb 30.1 (L) 30.5 - 38.0 pg eGFR Collection Time: 01/11/25 1:12 PM Result Value Ref Range eGFR >90 >=60 mL/min/1.73 m2 Manual Differential Collection Time: 01/11/25 1:12 PM Result Value Ref Range Differential Manual Cells Counted 100 Neutrophil abs 4.90 1.50 - 6.50 K/cumm Lymphocyte abs 4.39 (H) 0.80 - 3.30 K/cumm Monocyte abs 0.51 0.20 - 0.80 K/cumm Eosinophil abs 0.41 0.00 - 0.50 K/cumm Neutrophil pct 48.0 % Lymphocyte pct 43.0 % Monocyte pct 5.0 % Eosinophil pct 4.0 % RBC morphology Present (A) Polychromasia 3-7/HPF (A) Anisocytosis Marked (A) Sickle cells 1-2/HPF (A) Elliptocytes 8-15/HPF (A) Teardrop cells 3-7/HPF (A) Platelet morphology Normal Platelet estimate Adequate XR Chest PA Lateral 2 Views Result Date: 01/11/2025 Narrative: EXAM DESCRIPTION: XR CHEST PA LATERAL 2 VIEWS REASON FOR STUDY: cough,fever Cough and fever yesterday TECHNIQUE: Frontal and lateral radiographic view(s) of the chest. COMPARISON: Multipleprevious chest radiographs with the most recent dated 01/10/2025. Chest CT dated 12/23/2024. FINDINGS: Multifocal bilateral opacities as seen on the previous chest radiograph dated 01/10/2025 and could reflect pulmonary edema and/or multifocal pneumonia. No significant pleural effusion. No definitepneumothorax. Cardiomediastinal silhouette projects enlarged. Osseous stigmata of sickle cell disease is again seen. IMPRESSION: No significant change in appearance of the chest when compared to the previous chest radiograph dated 01/10/2025. THIS IS AN ELECTRONICALLY VERIFIED FINAL REPORT 01/11/2025 2:07 PM - Electronically signed by Gee Laboy D.O. AP: AP Report ID: [id number] Reading Location: [id number] XR Chest 1 View Result Date: 01/10/2025 Narrative: EXAM DESCRIPTION: XR CHEST 1 VIEW REASON FOR STUDY: SOB Increased SOB today TECHNIQUE: Single radiographic view(s) of the chest. COMPARISON: Chest radiograph 01/01/2025 FINDINGS: LUNGS: Mild bilateral pulmonary edema. No focal opacity, pleural effusion, or pneumothorax. HEART/MEDIASTINUM: Cardiac silhouette is enlarged in size. Mediastinal and hilar contours appear normal. LINES/TUBES:None. BONES: No acute osseous abnormality. IMPRESSION: Cardiomegaly with mild bilateral pulmonary edema. No pleural effusion THIS IS AN ELECTRONICALLY VERIFIED FINAL REPORT 01/10/2025 2:33 PM - Electronically signed by Anne Merchant M.D. FT: FT Report ID: [id number] Reading Location: [id number] CT Abdomen Pelvis WO Contrast Result Date: 01/08/2025 Narrative: EXAM DESCRIPTION: CT ABDOMEN PELVIS WO CONTRAST REASON FOR STUDY: Abdominal pain, acute,nonlocalized Abd pain RLQ pt. Reports recent appy. treated with abx. TECHNIQUE: CT scan of the abdomen and pelvis performed without intravenous and without oral contrast using helical scanning technique. Reconstructed coronal and sagittal MPR images reviewed. All images stored on PACS. Automated exposure control was used as a dose optimization technique for this examination. COMPARISON: 08/30/2024, 08/13/2024, 02/10/2024 06/26/2023 REFERENCE: Per ACR white paper recommendations, unless otherwise specified no follow-up imaging is recommended for incidental renal and adrenal lesions per consensus recommendations based on imaging criteria. Further lab evaluation could be pursued based on clinical findings. FINDINGS: Absence of intravenous contrast reduces sensitivity for detection of pathology. Findings made within these confines. LOWER CHEST: Mild cardiomegaly. Subsegmental atelectasis. LIVER: No concerning lesions by noncontrast technique. GALLBLADDER/BILE DUCTS: No significant biliaryductal dilatation. SPLEEN: Atrophic. PANCREAS: No significant ductal dilatation or discrete lesion.ADRENALS: No measurable nodule. KIDNEYS/URETERS: No hydronephrosis. No obstructing nephroureterolithiasis. BLADDER/URINARY: No significant bladder wall thickening. REPRODUCTIVE: No significant abnormality. GASTROINTESTINAL: No dilated bowel loops. No obvious wall thickening. Unremarkable appendix similar in appearance over multiple prior examinations. LYMPH NODES: Similar-appearing mildly prominent mesenteric and iliac chain lymph nodes which are nonspecific and possibly reactive. No pathologically enlarged lymphadenopathy. PERITONEUM/RETROPERITONEUM: No ascites or free air. VASCULATURE: No abdominal aortic aneurysm. MUSCULOSKELETAL: Osseous stigmata of sickle cell disease. Heterogeneous serpiginous sclerosis of the bilateral femoral heads compatible with osteonecrosis. No acute displaced fracture. OTHER: No significant abnormality. IMPRESSION: 1. No acute abnormality with the abdomen or pelvis. 2. Similar-appearing mildly prominent mesenteric and iliac chain lymph nodes which are nonspecific and possibly reactive. 3. Osseous stigmata of sickle cell disease. THIS IS AN ELECTRONICALLY VERIFIED FINAL REPORT 01/08/2025 5:00 PM - Electronically signed by Anival Cotton M.D. NS: NS Report ID: [id number] Reading Location: [id number] XR Chest 1 Vw Portable Result Date: 01/01/2025 Narrative: EXAM DESCRIPTION: XR CHEST 1 VIEW REASON FOR STUDY: cp Sickle cells pain x 3 days with chest, leg and foot pain TECHNIQUE: Portable upright AP view of the chest. COMPARISON: 12/23/2024 FINDINGS: LUNGS AND PLEURA: Vascular congestion less severe compared to the prior. No focal opacity, large effusion, or pneumothorax is seen. HEART/MEDIASTINUM: Trachea midline. Cardiac silhouette normalin size. Mediastinal contours appear normal. BONES: Shoulder arthritis. CHEST WALL: Unremarkable. UPPER ABDOMEN: Unremarkable. IMPRESSION: Vascular congestion less severe compared to 12/23/2024. No focal opacity is seen. THIS IS AN ELECTRONICALLY VERIFIED FINAL REPORT 01/01/2025 12:25 AM - Electronically signed by Andrew Stubbs M.D. AR: TOREY Report ID: [id number] Reading Location: [id number] XR Chest 1 View Result Date: 12/31/2024 Narrative: [address] [id number] Examination: Chest 1 view portable History: Chest pain, anemia DATE/TIME: 12/31/2024 4:02 PM Comparison: December 13, 2024 Technique: AP upright portable view of the chest was obtained. Findings: Heart size, mediastinal contours and pulmonary vasculature are within normal limits. No pulmonary consolidation, pleural effusion or pneumothorax. No acute osseous abnormality. Impression: Impression: No acute findings. Referred By: Interpreted By: Jose Tran MD, 12/31/2024 4:24 PM Principal Problem: Acute sickle cell crisis (HCC) Resolved Problems: No resolved hospital problems. ASSESSMENT/PLAN Mr. Simon is a 29 year old male admitted with sickle cell pain crisis. Sickle cell crisis Uncontrolled pain -Continues on Percocet 10/325mg 3 tablets Q 8 hours prn Managed by primary team - Continue IV Dilaudid for breakthrough pain. I will defer to primary team for any changes on this as they have been managing this. - Continue folic acid 1 mg daily. - His reticulocyte count remains markedly elevated. He has been restarted on IV fluids. - Daily CBC while admitted - Daily reticulocyte count will admitted -Transfuse for Hgb <7 -He will continue follow up with Dr Gonzalez after discharge and is scheduled for 02/14 appointment Luciana Mahmood APRN, FNP- Nurse Practitioner Division of Oncology [address] [place] [address], [facility] [address] [id number] , ext, 1, ext 1 Research Methods Instructor completed by using M*Modal Fluency Direct speaking software, therefore, transcriptionvariances may occur Cosigned by Dominick Ramirez Jr., MD at 01/12/2025 9:19 PM CDT * Plan of Care - Haylee Locke RN - 01/11/2025 9:55 PM CDT Problem: Discharge Planning Goal: Understanding discharge needs will improve Outcome: Progressing Problem: Lack of Knowledge Goal: Ability to develop a pain control plan will improve Outcome: Progressing Problem: Medication Goal: Satisfaction with pain management medication regimen will improve Outcome: Progressing Problem: Sensory Goal: Ability to identify factors that increase pain levels will improve while working to decrease the patient's pain levels Outcome: Progressing Problem: Coping Goal: Ability to cope will improve Outcome: Progressing Problem: Health Behavior Goal: Identification of resources available to assist in meeting health care needs will improve Outcome: Progressing Problem: Neurosensory Goal: Achieves stable or improved neurological status Outcome: Progressing Goal: Achieves maximal functionality and self care Outcome: Progressing Problem: Respiratory Goal: Achieves optimal ventilation and oxygenation Outcome: Progressing Goal: Ability to maintain a clear airway will improve Outcome: Progressing Problem: Cardiovascular Goal: Maintains optimal cardiac output and hemodynamic stability Outcome: Progressing Goal: Absence of cardiac dysrhythmias or at baseline Outcome: Progressing Goal: Cardiovascular status will improve Outcome: Progressing Problem: Skin/Tissue Integrity Goal: Skin integrity remains intact Outcome: Progressing Goal: Oral mucous membranes remain intact Outcome: Progressing Problem: Musculoskeletal Goal: Return mobility to safest level of function Outcome: Progressing Goal: Return ADL status to a safe level of function Outcome: Progressing Goal: Ability to perform activities at highest level will improve Outcome: Progressing Goal: Mobility, ROM and muscle strength will improve Outcome: Progressing Problem: Genitourinary Goal: Absence of urinary retention Outcome: Progressing Problem: Metabolic/Fluid and Electrolytes Goal: Electrolytes maintained within normal limits Outcome: Progressing Goal: Hemodynamic stability and optimal renal function maintained Outcome: Progressing Problem: Hematologic Goal: Maintains hematologic stability Outcome: Progressing Problem: Gastrointestinal Goal: Maintains or returns to baseline bowel function Outcome: Progressing Goal: Maintains adequate nutritional intake Outcome: Progressing Goals: comfort, safety, vss, pain control Summary: Assessment of patient's baseline established at the beginning of the shift in flowsheets. Frequent safety checks and comfort rounds provided. Orders and/or nursing care completed as indicated. Patient monitored for response to interventions and treatments as documented in flowsheets. VS stable. Safety precautions maintained. Patient resting in bed. * Plan of Care - Laila Olson RN - 01/11/2025 5:50 PM CDT Problem: Discharge Planning Goal: Understanding discharge needs will improve Outcome: Progressing Problem: Lack of Knowledge Goal: Ability to develop a pain control plan will improve Outcome: Progressing Problem: Medication Goal: Satisfaction with pain management medication regimen will improve Outcome: Progressing Problem: Sensory Goal: Ability to identify factors that increase pain levels will improve while working to decrease the patient's pain levels Outcome: Progressing Problem: Coping Goal: Ability to cope will improve Outcome: Progressing Problem: Health Behavior Goal: Identification of resources available to assist in meeting health care needs will improve Outcome: Progressing Problem: Neurosensory Goal: Achieves stable or improved neurological status Outcome: Progressing Problem: Cardiovascular Goal: Maintains optimal cardiac output and hemodynamic stability Outcome: Progressing Problem: Skin/Tissue Integrity Goal: Skin integrity remains intact Outcome: Progressing Problem: Musculoskeletal Goal: Mobility, ROM and muscle strength will improve Outcome: Progressing Problem: Hematologic Goal: Maintains hematologic stability Outcome: Progressing Goals: Clinical Goals for the Shift: VSS, pain management, safety, rest Technical Publications Manager Patient Centered Goal for Treatment: d/c home Summary: VSS. Pain management continued. IVF. Voiding per urinal. Pt c/o cough and body aches. MD notified. CXR done and unremarkable. Mucinex ordered. Pt refused tessalon for cough. Resting in bed with call light. No requests at this time. Plan of care continued. * Plan of Care - Luciana Mahmood NP - 01/11/2025 7:55 AM CDT Images from the original note were not included. Follow up Hematology Note for sickle cell crisis pain I reviewed this patient's vital signs, pertinent lab data, imaging, and other provider notes. Pertinent Results Vitals: 24hr Min/Max: Temp Min: 37.1 ??C (98.8 ??F) Max: 37.2 ??C (99 ??F) Pulse Min: 82 Max: 93 BP Min: 102/61 Max: 123/77 Resp Min: 17 Max: 18 SpO2 Min: 92 % Max: 100 % Most Recent : Vitals: 01/11/25 0410 BP: 105/78 Pulse: 87 Resp: 18 Temp: SpO2: 92% Lab/Radiology/Diagnostic Review: Laboratory review: reviewed the laboratory result(s) below Recent Results (from the past 24 hours) Basic metabolic panel Collection Time: 01/10/25 10:29 AM Result Value Ref Range Sodium 138 135 - 145 mmol/L Potassium, pl 3.5 3.3 - 4.9 mmol/L Chloride 104 97 - 110 mmol/L CO2 24 22 - 32 mmol/L Anion gap 10 2 - 15 mmol/L BUN 2 (L) 6 - 25 mg/dL Creatinine 0.50 (L) 0.80 - 1.30 mg/dL Glucose 98 70 - 199 mg/dL Calcium 8.4 (L) 8.5 - 10.3 mg/dL CBC with auto differential Collection Time: 01/10/25 10:29 AM Result Value Ref Range WBC 10.15 (H) 3.80 - 9.90 K/cumm Hgb 7.5 (L) 13.0 - 17.5 g/dL Hct 22.0 (L) 38.9 - 50.3 % Plt 324 150 - 400 K/cumm MPV 10.3 9.1 - 12.3 fL RBC 2.51 (L) 4.30 - 5.80 M/cumm MCV 87.6 81.3 - 96.4 fL MCH 29.9 27.1 - 33.3 pg MCHC 34.1 32.3 - 35.7 g/dL RDW CV 22.9 (H) 11.1 - 14.9 % RDW SD 69.4 (H) 35.7 - 48.1 fL NRBC abs 0.15 (H) 0.00 - 0.01 K/cumm Morphologic Screen Results confirmed by manual morphology review. Reticulocyte Count Collection Time: 01/10/25 10:29 AM Result Value Ref Range Retics, absolute 624 (H) 20 - 87 K/cumm Retics 21.5 (H) 0.4 - 2.9 % Reticulocyte Hgb 28.1 (L) 30.5 - 38.0 pg Differential, auto Collection Time: 01/10/25 10:29 AM Result Value Ref Range Neutrophil abs 4.63 1.50 - 6.50 K/cumm Imm gran abs 0.08 0.00 - 0.10 K/cumm Lymphocyte abs 4.22 (H) 0.80 - 3.30 K/cumm Monocyte abs 0.96 (H) 0.20 - 0.80 K/cumm Eosinophil abs 0.20 0.00 - 0.50 K/cumm Basophil abs 0.06 0.00 - 0.10 K/cumm Neutrophil pct 45.5 % Imm gran pct 0.8 % Lymphocyte pct 41.6 % Monocyte pct 9.5 % Eosinophil pct 2.0 % Basophil pct 0.6 % eGFR Collection Time: 01/10/25 10:29 AM Result Value Ref Range eGFR >90 >=60 mL/min/1.73 m2 XR Chest 1 View Result Date: 01/10/2025 Narrative: EXAM DESCRIPTION: XR CHEST 1 VIEW REASON FOR STUDY: SOB Increased SOB today TECHNIQUE: Single radiographic view(s) of the chest. COMPARISON: Chest radiograph 01/01/2025 FINDINGS: LUNGS: Mild bilateral pulmonary edema. No focal opacity, pleural effusion, or pneumothorax. HEART/MEDIASTINUM: Cardiac silhouette is enlarged in size. Mediastinal and hilar contours appear normal. LINES/TUBES:None. BONES: No acute osseous abnormality. IMPRESSION: Cardiomegaly with mild bilateral pulmonary edema. No pleural effusion THIS IS AN ELECTRONICALLY VERIFIED FINAL REPORT 01/10/2025 2:33 PM - Electronically signed by Anne Merchant M.D. FT: FT Report ID: [id number] Reading Location: [place] [address] CT Abdomen Pelvis WO Contrast Result Date: 01/08/2025 Narrative: EXAM DESCRIPTION: CT ABDOMEN PELVIS WO CONTRAST REASON FOR STUDY: Abdominal pain, acute,nonlocalized Abd pain RLQ pt. Reports recent appy. treated with abx. TECHNIQUE: CT scan of the abdomen and pelvis performed without intravenous and without oral contrast using helical scanning technique. Reconstructed coronal and sagittal MPR images reviewed. All images stored on PACS. Automated exposure control was used as a dose optimization technique for this examination. COMPARISON: 08/30/2024, 08/13/2024, 02/10/2024 06/26/2023 REFERENCE: Per ACR white paper recommendations, unless otherwise specified no follow-up imaging is recommended for incidental renal and adrenal lesions per consensus recommendations based on imaging criteria. Further lab evaluation could be pursued based on clinical findings. FINDINGS: Absence of intravenous contrast reduces sensitivity for detection of pathology. Findings made within these confines. LOWER CHEST: Mild cardiomegaly. Subsegmental atelectasis. LIVER: No concerning lesions by noncontrast technique. GALLBLADDER/BILE DUCTS: No significant biliaryductal dilatation. SPLEEN: Atrophic. PANCREAS: No significant ductal dilatation or discrete lesion.ADRENALS: No measurable nodule. KIDNEYS/URETERS: No hydronephrosis. No obstructing nephroureterolithiasis. BLADDER/URINARY: No significant bladder wall thickening. REPRODUCTIVE: No significant abnormality. GASTROINTESTINAL: No dilated bowel loops. No obvious wall thickening. Unremarkable appendix similar in appearance over multiple prior examinations. LYMPH NODES: Similar-appearing mildly prominent mesenteric and iliac chain lymph nodes which are nonspecific and possibly reactive. No pathologically enlarged lymphadenopathy. PERITONEUM/RETROPERITONEUM: No ascites or free air. VASCULATURE: No abdominal aortic aneurysm. MUSCULOSKELETAL: Osseous stigmata of sickle cell disease. Heterogeneous serpiginous sclerosis of the bilateral femoral heads compatible with osteonecrosis. No acute displaced fracture. OTHER: No significant abnormality. IMPRESSION: 1. No acute abnormality with the abdomen or pelvis. 2. Similar-appearing mildly prominent mesenteric and iliac chain lymph nodes which are nonspecific and possibly reactive. 3. Osseous stigmata of sickle cell disease. THIS IS AN ELECTRONICALLY VERIFIED FINAL REPORT 01/08/2025 5:00 PM - Electronically signed by Anival Cotton M.D. NS: NS Report ID: [id number] Reading Location: [place] [address] XR Chest 1 Vw Portable Result Date: 01/01/2025 Narrative: EXAM DESCRIPTION: XR CHEST 1 VIEW REASON FOR STUDY: cp Sickle cells pain x 3 days with chest, leg and foot pain TECHNIQUE: Portable upright AP view of the chest. COMPARISON: 12/23/2024 FINDINGS: LUNGS AND PLEURA: Vascular congestion less severe compared to the prior. No focal opacity, large effusion, or pneumothorax is seen. HEART/MEDIASTINUM: Trachea midline. Cardiac silhouette normalin size. Mediastinal contours appear normal. BONES: Shoulder arthritis. CHEST WALL: Unremarkable. UPPER ABDOMEN: Unremarkable. IMPRESSION: Vascular congestion less severe compared to 12/23/2024. No focal opacity is seen. THIS IS AN ELECTRONICALLY VERIFIED FINAL REPORT 01/01/2025 12:25 AM - Electronically signed by Andrew Stubbs M.D. AR: TOREY Report ID: [id number] Reading Location: [id number] XR Chest 1 View Result Date: 12/31/2024 Narrative: [address] [address] Examination: Chest 1 view portable History: Chest pain, anemia DATE/TIME: 12/31/2024 4:02 PM Comparison: December 13, 2024 Technique: AP upright portable view of the chest was obtained. Findings: Heart size, mediastinal contours and pulmonary vasculature are within normal limits. No pulmonary consolidation, pleural effusion or pneumothorax. No acute osseous abnormality. Impression: Impression: No acute findings. Referred By: Interpreted By: Jose Tran MD, 12/31/2024 4:24 PM XR Kub Result Date: 12/26/2024 Narrative: PROCEDURE: XR ABDOMEN KUB DATE/TIME OF EXAM: 12/26/2024 5:53 PM CLINICAL INFORMATION: Nonerelevant/not provided if blank. Indication: D57.09: Sickle cell disease with crisis and other complication (HCC) Additional History: COMPARISON: None. FINDINGS: Single view of the abdomen demonstrates nonspecific bowel gas pattern with mildly air-filled distended loops of small bowel scattered in the central abdomen. No mass effect or pathologic calcifications. No acute osseous abnormalities. Impression: IMPRESSION: Nonspecific bowel gas pattern. Perhaps there may be a mild ileus. Short-term follow-up recommended. > Interpreting Provider: Alon Collins MD on 12/26/2024 6:55 PM XR CHEST 1VW PORTABLE Result Date: 12/24/2024 Narrative: PROCEDURE: XR CHEST 1VW PORTABLE DATE/TIME OF EXAM: 12/24/2024 5:03 AM INDICATION: R07.9: Chest pain, unspecified type COMPARISON: August 18 ADDITIONAL CLINICAL INFORMATION (if provided): Ordering Provider Reason For Exam: Findings: Patient is lordotic The heart is borderline enlarged. The aorta is normal in caliber. Question subtle right perihilar infiltrate versus artifact. Otherwise the lungs are clear There is no confluent infiltrate or effusion. There is no pneumothorax. There is no mass or adenopathy.. . Impression: IMPRESSION: Increased markings right perihilar region more likely artifact due to patient positioning. No confluent infiltrate. Recommend follow- up as needed clinically > Interpreting Provider: Leopoldo Martin MD on 12/24/2024 8:[address] Chest PE (CTA) W Contrast Result Date: 12/23/2024 Narrative: EXAMINATION: CT CHEST PE (CTA) W CONTRAST HISTORY: 29-year-old man with sickle cell disease, concern for pulmonary embolism and acute chest. TECHNIQUE: Computed tomographic images were acquired using a chest angiographic protocol optimized for pulmonary embolism. Contrast enhanced transaxial images were obtained following the intravenous administration of 94 ml of nonionic contrast. Multiplanar reformatted images and three-dimensional images were obtained on the 3-D workstation and sent to the PACS archival system. COMPARISON: 05/30/2024 FINDINGS: The study is limited by poor opacification of the pulmonary arteries. There is no acute pulmonary embolism within the main pulmonary artery or right or left main almanac arteries. Evaluation of the more distal pulmonary arteries is not possible due to poor opacification and patient motion. Mild cardiomegaly. No pericardial effusion. No supraclavicular or axillary lymphadenopathy. There is diffuse bilateral gynecomastia. No mediastina l lymphadenopathy. Bibasilar airspace opacities likely represent atelectasis. No pleural effusion or pneumothorax. Cholecystectomy. Osseous stigmata of sickle cell disease are again noted. Impression: 1. No large occlusive central pulmonary embolism. 2. No acute process in the chest on this motion degraded exam. Electronically signed by: Tianna Shepard M.D. XR Chest Pa Lateral 2 Vw Result Date: 12/23/2024 Narrative: EXAMINATION: XR CHEST PA LATERAL 2 VIEWS HISTORY: Pain Impression: Comparison is made to a prior study dated 12/22/2024. There are small lung volumes with increasing interstitial opacities which may represent a viral pneumonia or mild pulmonary edema. There is no definite pleural effusion or pneumothorax. Cardiomediastinal silhouette is mildly enlarged and stable. Osseous stigmata of sickle cell disease are again noted. Electronically signed by: Ezequiel Fu ECG 12 lead Result Date: 12/23/2024 Narrative: Vent Rate: 106 bpm RR Interval: 561 msec [place] Interval: 160 msec QRS Duration: 90 msec QT Interval: 368 msec QTC Interval: 430 msec P-R-T [place]: 64 - 31 - 15 degrees IMPRESSION: SINUS TACHYCARDIA ABNORMAL RHYTHM ECG Electronically Signed By: Celestino Dunlap [facility] Card XR Chest Pa Lateral 2 Views Result Date: 12/22/2024 Narrative: XR CHEST PA AND LATERAL 2 VW Ordering provider: [facility] History: 29 years Male with Chest Pain. See Reason for Exam. Comparison: 12/10/2024 Impression: FINDINGS/IMPRESSION: MEDIASTINUM: Stable cardiomediastinal contours. Cardiac silhouetteis mildly enlarged. Suggestion of pulmonary vascular congestion. LUNGS: No focal consolidation, pleural effusion or pneumothorax. OTHER: Osteonecrosis of the humeral heads again noted, right greater than left. DICTATION LOCATION: Location 4 XR Chest 1 Vw Portable Result Date: 12/22/2024 Narrative: EXAM DESCRIPTION: XR CHEST 1 VIEW REASON FOR STUDY: hx of acute chest r/t sickle cell Came to ED for c/o sickle cell pain to bilateral legs, feet, and chest TECHNIQUE: Single frontal radiographic view(s) of the chest. COMPARISON: 12/07/2024 FINDINGS: There is cardiomegaly. There is mild prominence of the pulmonary vasculature. There is no definite evidence of a pneumothorax. There are mild patchy bibasilar airspace opacities. There is no definite evidence of pleural effusion. The osseous structures are acutely grossly stable. IMPRESSION: 1. Cardiomegaly with mild prominence of pulmonary vasculature. 2. Mild patchy bibasilar airspace opacities, which is likely related to subsegment al atelectasis/scarring and less likely developing airspace disease. THIS IS AN ELECTRONICALLY VERIFIED FINAL REPORT 12/22/2024 1:18 PM - Electronically signed by Gina Betancur D.O. PS: PS Report ID: [id number] Reading Location: [id number] CT Chest W Contrast Result Date: 12/15/2024 Narrative: [address] [address] Examination: CT chest with IV contrast. Clinical Information: Chest pain. History of sickle celldisease. Comparison: CT chest 11/11/2024 Technique: IV contrast: 75 mL of [id number]. Oral contrast:None. Technical comments: Standard technique. Dose reduction: This CT exam was performed using one or more of the following dose reduction techniques: Automated exposure control, adjustment of the mAand/or kV according to patient size, and/or use of iterative reconstruction technique. Findings: MEDIASTINUM Support tubes and lines: None. Base of neck/thyroid: Negative. Heart: Normal in size. No pericardial effusion. Lymph nodes: No supraclavicular, axillary, internal mammary, mediastinal, or hilar adenopathy. VASCULATURE Thoracic aorta and pulmonary arteries are unremarkable. LUNGS AND PLEURALungs: Mild bilateral dependent atelectasis. No focal consolidation. Pleura: No pleural effusion, th ickening, or calcification. UPPER ABDOMEN Cholecystectomy. The spleen is absent. BONES/SOFT TISSUESRedemonstrated H shaped vertebra compatible with history of sickle cell disease. Impression: Impression: 1. No acute cardiopulmonary abnormalities. 2. Mild bilateral dependent atelectasis. 3. Additional chronic findings as above. Referred By: Interpreted By: Ryley Lane MD, 12/15/2024 12:55 AM XR CHEST PA+LAT Result Date: 12/13/2024 Narrative: [address] [address] Examination: Chest 2 View History: Chest pain, sickle cell anemia DATE/TIME: 12/13/2024 2:02 PM Comparison: November 27, 2024 Technique: PA and lateral views were obtained. Findings: Heart size, mediastinal contours and pulmonary vasculature are within normal limits. No pulmonary consolidation, pleural effusion or pneumothorax. No acute osseous abnormality. Impression: Impression: No acute findings. Referred By: Interpreted By: Jose Tran MD, 12/13/2024 2:15 PM Principal Problem: Acute sickle cell crisis (HCC) Resolved Problems: No resolved hospital problems. ASSESSMENT/PLAN Mr. Simon is a 29 year old male admitted with sickle cell pain crisis. Sickle cell crisis Uncontrolled pain -Continues on Percocet 10/325mg 3 tablets Q 8 hours prn Managed by primary team - Continue IV Dilaudid for breakthrough pain. I will defer to primary team for any changes on this as they have been managing this. - Continue folic acid 1 mg daily. - His reticulocyte count remains markedly elevated. He has been restarted on IV fluids. - Daily CBC while admitted - Daily reticulocyte count will admitted -Transfuse for Hgb <7 -He will continue follow up with Dr Gonzalez after discharge and is scheduled for 02/14 appointment Luciana Mahmood APRN, [place]- Nurse Practitioner Division of Oncology [address] [place] [address], [address] [place] [address] , ext, 1, ext 1 Research Methods Instructor completed by using Flow[employer] Direct speaking software, therefore, transcriptionvariances may occur Cosigned by Justin Thompson MD PhD at 01/11/2025 10:31 AM CDT * Plan of Care - Janet Zuniga RN - 01/11/2025 1:54 AM CDT Goals: Clinical Goals for the Shift: VSS, pain control, IV fluids, safety, rest/comfort Technical Publications Manager Patient Centered Goal for Treatment: d/c home Summary: Problem: Discharge Planning Goal: Understanding discharge needs will improve Outcome: Progressing Flowsheets (Taken 01/11/2025 0152) Understanding of discharge needs will improve: Discuss information regarding discharge instructions Identify discharge barriers Identify discharge learning needs (meds, wound care, etc.) Problem: Lack of Knowledge Goal: Ability to develop a pain control plan will improve Outcome: Progressing Flowsheets (Taken 01/11/2025 0152) Ability to develop a pain control plan will improve: Explain causes of pain and how long pain can be expected to last Educate pain scale for assessing level of pain Problem: Medication Goal: Satisfaction with pain management medication regimen will improve Outcome: Progressing Flowsheets (Taken 01/11/2025151) Satisfaction with pain management medication regimen will improve: Assess satisfaction with pain management regimen Evaluate medication effects Problem: Sensory Goal: Ability to identify factors that increase pain levels will improve while working to decrease the patient's pain levels Outcome: Progressing Flowsheets (Taken 01/11/2025151) Ability to identify factors that increase pain levels will improve while working to decrease patients pain levels: Assess pain status Observe non-verbal cues of discomfort, such as restlessness, muscle tension, or altered vital signs Assess effects of pain control measures Problem: Health Behavior Goal: Identification of resources available to assist in meeting health care needs will improve Outcome: Progressing Flowsheets (Taken 01/11/2025151) Identification of resources available to assist in meeting health care needs will improve: Collaborate with pain management Refer to pain support group Collaborate with all therapies Problem: Neurosensory Goal: Achieves stable or improved neurological status Outcome: Progressing Flowsheets (Taken 01/11/2025151) Achieves Stable or Improved Neurological Status: Assess for and report changes in neurological status Monitor temperature, glucose, and sodium. Initiate appropriate interventions as ordered Maintain blood pressure and fluid volume within ordered parameters to optimize cerebral perfusion and minimize risk of hemorrhage Problem: Respiratory Goal: Achieves optimal ventilation and oxygenation Outcome: Progressing Flowsheets (Taken 01/11/2025151) Achieves optimal ventilation and oxygenation: Assess for changes in respiratory status Assess for changes in mentation and behavior Problem: Musculoskeletal Goal: Return mobility to safest level of function Outcome: Progressing Flowsheets (Taken 01/11/2025151) Return mobility to safest level of function: Assess patient stability and activity tolerance for standing, transferring and ambulating with or without assistive devices Assist with transfers and ambulation using safe patient handling equipment as needed Problem: Metabolic/Fluid and Electrolytes Goal: Electrolytes maintained within normal limits Outcome: Progressing Flowsheets (Taken 01/11/2025151) Electrolytes maintained within normal limits: Monitor labs and assess patient for signs and symptoms of electrolyte imbalances Administer electrolyte replacement as ordered Problem: Hematologic Goal: Maintains hematologic stability Outcome: Progressing Flowsheets (Taken 01/11/2025151) Maintains Hematologic Stability: Monitor labs Problem: Gastrointestinal Goal: Maintains or returns to baseline bowel function Outcome: Progressing Flowsheets (Taken 01/11/2025151) Maintains or returns to baseline bowel function: Assess bowel function, evaluate bowel sounds and signs of abdominal distention Monitor amount, characteristics and/or frequency of stool Goal: Maintains adequate nutritional intake Outcome: Progressing Flowsheets (Taken 01/11/2025 0152) Maintains adequate nutritional intake: Monitor percentage of each meal consumed Assist with meals as needed Identify factors contributing to decreased intake, treat as appropriate Monitor I&O, weight and lab values * Plan of Care - Cheyanne Hines RN - 01/10/2025 3:48 PM CDT CM Care Progression Expected Discharge Date and Time Expected Discharge Date Jan 12, 2025 Next steps with the transition plan: Continues to have multiple independent complaints of pain. CXRand CT of the abdomen complete. All results are negative. Retic count continues to increase over the weekend. Pain medications have been adjusted up. Will plan to start wean soon. CM anticipating return to his friends house at discharge. Will need transportation arranged at [place]. This discharge plan has been discussed with patient and care team with agreement to the post-acute care plan and understanding of the expectations for discharge when medically ready. Cheyanne Hines RN * Plan of Care - Laila Olson RN - 01/10/2025 2:19 PM CDT Problem: Discharge Planning Goal: Understanding discharge needs will improve Outcome: Progressing Problem: Lack of Knowledge Goal: Ability to develop a pain control plan will improve Outcome: Progressing Problem: Medication Goal: Satisfaction with pain management medication regimen will improve Outcome: Progressing Problem: Coping Goal: Ability to cope will improve Outcome: Progressing Problem: Health Behavior Goal: Identification of resources available to assist in meeting health care needs will improve Outcome: Progressing Problem: Neurosensory Goal: Achieves stable or improved neurological status Outcome: Progressing Problem: Respiratory Goal: Achieves optimal ventilation and oxygenation Outcome: Progressing Problem: Cardiovascular Goal: Maintains optimal cardiac output and hemodynamic stability Outcome: Progressing Problem: Cardiovascular Goal: Cardiovascular status will improve Outcome: Progressing Problem: Musculoskeletal Goal: Return mobility to safest level of function Outcome: Progressing Problem: Musculoskeletal Goal: Mobility, ROM and muscle strength will improve Outcome: Progressing Problem: Hematologic Goal: Maintains hematologic stability Outcome: Progressing Problem: Gastrointestinal Goal: Maintains adequate nutritional intake Outcome: Progressing Goals: Clinical Goals for the Shift: rest, pain control [facility] Patient Centered Goal for Treatment: Discharge home Summary: VSS. A/Ox4. Pain generalized. Pain management continued. IVF continued. * Plan of Care - Yaneth Goddard RN - 01/09/2025 5:11 PM CDT Problem: Discharge Planning Goal: Understanding discharge needs will improve Outcome: Ongoing Problem: Lack of Knowledge Goal: Ability to develop a pain control plan will improve Outcome: Ongoing Problem: Medication Goal: Satisfaction with pain management medication regimen will improve Outcome: Ongoing Problem: Sensory Goal: Ability to identify factors that increase pain levels will improve while working to decrease the patient's pain levels Outcome: Ongoing Problem: Coping Goal: Ability to cope will improve Outcome: Ongoing Problem: Health Behavior Goal: Identification of resources available to assist in meeting health care needs will improve Outcome: Ongoing Problem: Neurosensory Goal: Achieves stable or improved neurological status Outcome: Ongoing Goal: Achieves maximal functionality and self care Outcome: Ongoing Problem: Respiratory Goal: Achieves optimal ventilation and oxygenation Outcome: Ongoing Goal: Ability to maintain a clear airway will improve Outcome: Ongoing Problem: Cardiovascular Goal: Maintains optimal cardiac output and hemodynamic stability Outcome: Ongoing Goal: Absence of cardiac dysrhythmias or at baseline Outcome: Ongoing Goal: Cardiovascular status will improve Outcome: Ongoing Problem: Skin/Tissue Integrity Goal: Skin integrity remains intact Outcome: Ongoing Goal: Oral mucous membranes remain intact Outcome: Ongoing Problem: Musculoskeletal Goal: Return mobility to safest level of function Outcome: Ongoing Goal: Return ADL status to a safe level of function Outcome: Ongoing Goal: Ability to perform activities at highest level will improve Outcome: Ongoing Goal: Mobility, ROM and muscle strength will improve Outcome: Ongoing Problem: Genitourinary Goal: Absence of urinary retention Outcome: Ongoing Problem: Metabolic/Fluid and Electrolytes Goal: Electrolytes maintained within normal limits Outcome: Ongoing Goal: Hemodynamic stability and optimal renal function maintained Outcome: Ongoing Problem: Hematologic Goal: Maintains hematologic stability Outcome: Ongoing Problem: Gastrointestinal Goal: Maintains or returns to baseline bowel function Outcome: Ongoing Goal: Maintains adequate nutritional intake Outcome: Ongoing Goals: Clinical Goals for the Shift: COMFOR, STABLE V/S AND MEDICATION EDUCATION Technical Publications Manager Patient Centered Goal for Treatment: Discharge home Summary: Pt being administered PRN pain medication as soon as the administration time is. He has not wanted to take PO pain medication, stating that he is having a lot of pain. He rates his pain derrell 10 stating, generalized. RN has noted on certain times of rounding that pt appears that he isresting comfortably, able to be awakened with saying his name. RN trying to encourage various formsof non-pharmacological pain mgmt. Pt not willing to attempt. Ongoing medication education being provided. * Plan of Care - Nisreen Ledbetter RN - 01/08/2025 10:34 PM CDT Goals: Clinical Goals for the Shift: Stable vitals, pain control, rest, comfort, safety, CT abdomen due toabdominal pain today [facility] Patient Centered Goal for Treatment: Discharge home Summary: Problem: Discharge Planning Goal: Understanding discharge needs will improve Outcome: Progressing Problem: Lack of Knowledge Goal: Ability to develop a pain control plan will improve Outcome: Progressing Problem: Medication Goal: Satisfaction with pain management medication regimen will improve Outcome: Progressing Problem: Sensory Goal: Ability to identify factors that increase pain levels will improve while working to decrease the patient's pain levels Outcome: Progressing Problem: Coping Goal: Ability to cope will improve Outcome: Progressing Problem: Health Behavior Goal: Identification of resources available to assist in meeting health care needs will improve Outcome: Progressing Problem: Neurosensory Goal: Achieves stable or improved neurological status Outcome: Progressing Goal: Achieves maximal functionality and self care Outcome: Progressing Problem: Respiratory Goal: Achieves optimal ventilation and oxygenation Outcome: Progressing Goal: Ability to maintain a clear airway will improve Outcome: Progressing Problem: Cardiovascular Goal: Maintains optimal cardiac output and hemodynamic stability Outcome: Progressing Goal: Absence of cardiac dysrhythmias or at baseline Outcome: Progressing Goal: Cardiovascular status will improve Outcome: Progressing Problem: Skin/Tissue Integrity Goal: Skin integrity remains intact Outcome: Progressing Goal: Oral mucous membranes remain intact Outcome: Progressing Problem: Musculoskeletal Goal: Return mobility to safest level of function Outcome: Progressing Goal: Return ADL status to a safe level of function Outcome: Progressing Problem: Genitourinary Goal: Absence of urinary retention Outcome: Progressing * Plan of Care - Alina Moon RN - 01/08/2025 2:18 AM CDT Goals: Clinical Goals for the Shift: VSS, I&O, comfort, safety, pain control [facility] Patient [facility] Goal for Treatment: dc home Summary: Upon assessment pt is A&Ox4 with complaints of pain in bilateral LE rated 10/10 and tender when touched. PO and IVP pain medications given with little relief per pt. Pt also refused HS medications see JUL. VS remain stable, I&O charted, frequent safety checks and comfort rounds provided. Bedside table and call light are within reach. Plan of care on going. Problem: Discharge Planning Goal: Understanding discharge needs will improve Outcome: Progressing Problem: Lack of Knowledge Goal: Ability to develop a pain control plan will improve Outcome: Progressing Problem: Medication Goal: Satisfaction with pain management medication regimen will improve Outcome: Progressing Problem: Sensory Goal: Ability to identify factors that increase pain levels will improve while working to decrease the patient's pain levels Outcome: Progressing Problem: Coping Goal: Ability to cope will improve Outcome: Progressing Problem: Health Behavior Goal: Identification of resources available to assist in meeting health care needs will improve Outcome: Progressing Problem: Neurosensory Goal: Achieves stable or improved neurological status Outcome: Progressing Goal: Achieves maximal functionality and self care Outcome: Progressing Problem: Respiratory Goal: Achieves optimal ventilation and oxygenation Outcome: Progressing Goal: Ability to maintain a clear airway will improve Outcome: Progressing Problem: Cardiovascular Goal: Maintains optimal cardiac output and hemodynamic stability Outcome: Progressing Goal: Absence of cardiac dysrhythmias or at baseline Outcome: Progressing Goal: Cardiovascular status will improve Outcome: Progressing Problem: Skin/Tissue Integrity Goal: Skin integrity remains intact Outcome: Progressing Goal: Oral mucous membranes remain intact Outcome: Progressing Problem: Musculoskeletal Goal: Return mobility to safest level of function Outcome: Progressing Goal: Return ADL status to a safe level of function Outcome: Progressing Goal: Ability to perform activities at highest level will improve Outcome: Progressing Goal: Mobility, ROM and muscle strength will improve Outcome: Progressing Problem: Genitourinary Goal: Absence of urinary retention Outcome: Progressing Problem: Metabolic/Fluid and Electrolytes Goal: Electrolytes maintained within normal limits Outcome: Progressing Goal: Hemodynamic stability and optimal renal function maintained Outcome: Progressing Problem: Hematologic Goal: Maintains hematologic stability Outcome: Progressing * Plan of Care - Indu Rocha RN - 01/07/2025 4:50 PM CDT Goals: Clinical Goals for the Shift: vss, comfort, safety [facility] Goal for Treatment: dc home Summary: Neuro: AO x 4, independent Cardiac & Respiratory: Denies S&S of distress or discomfort GI/: Voiding per urinal and bathroom. Pt states he had diarrhea this AM Skin: CDI Pain: Dilaudid given every 3 hours and percocet every 8 hours. Hem/Onc placed recommendations for med adjustments and IV fluids. Pt declined fluids and pain medication suggestions. Dr. Garcia aware pain ranges from 9-10 at all times. Call light within reach, bed in low position with all wheels locked. Problem: Discharge Planning Goal: Understanding discharge needs will improve Outcome: Progressing Flowsheets (Taken 01/06/2025 1456 by Betty Zuniga, RN) Understanding of discharge needs will improve: Discuss information regarding discharge instructions Collaborate with case management interdisciplinary team Identify discharge barriers Problem: Lack of Knowledge Goal: Ability to develop a pain control plan will improve Outcome: Progressing Flowsheets (Taken 01/04/2025 1823 by Betty Zuniga, RN) Ability to develop a pain control plan will improve: Explain causes of pain and how long pain can be expected to last Educate pain scale for assessing level of pain Problem: Coping Goal: Ability to cope will improve Outcome: Progressing Flowsheets (Taken 01/06/2025 1458 by Betty Zuniga, RN) Ability to cope will Improve: Encourage vebalization of feelings surrounding pain Provide emotional support Perform depression screening Assess beliefs of pain * Plan of Care - Madison Baker RN - 01/07/2025 4:09 AM CDT Problem: Medication Goal: Satisfaction with pain management medication regimen will improve 01/07/2025 0410 by Madison Baker RN Outcome: Ongoing 01/07/2025 040 by Madison Baker RN Outcome: Progressing Problem: Discharge Planning Goal: Understanding discharge needs will improve 01/07/2025 041 by Madison Baker RN Outcome: Progressing 01/07/2025 040 by Madison Baker RN Outcome: Progressing Problem: Sensory Goal: Ability to identify factors that increase pain levels will improve while working to decrease the patient's pain levels 01/07/2025 041 by Madison Baker RN Outcome: Progressing 01/07/2025 040 by Madison Baker RN Outcome: Progressing Problem: Coping Goal: Ability to cope will improve 01/07/2025 041 by Madison Baker RN Outcome: Progressing 01/07/2025 040 by Madison Baker RN Outcome: Progressing Problem: Health Behavior Goal: Identification of resources available to assist in meeting health care needs will improve 01/07/2025 041 by Madison Baker RN Outcome: Progressing 01/07/2025 040 by Madison Baker RN Outcome: Progressing Problem: Neurosensory Goal: Achieves stable or improved neurological status 01/07/2025 0410 by Madison Baker RN Outcome: Progressing 01/07/2025 040 by Madison Baker RN Outcome: Progressing Goal: Achieves maximal functionality and self care 01/07/2025 041 by Madison Baker RN Outcome: Progressing 01/07/2025 040 by Madison Baker RN Outcome: Progressing Problem: Respiratory Goal: Achieves optimal ventilation and oxygenation 01/07/2025 0410 by Madison Baker RN Outcome: Progressing 01/07/2025 040 by Madison Baker RN Outcome: Progressing Goal: Ability to maintain a clear airway will improve 01/07/2025 041 by Madison Baker RN Outcome: Progressing 01/07/2025 040 by Madison Baker RN Outcome: Progressing Problem: Cardiovascular Goal: Maintains optimal cardiac output and hemodynamic stability 01/07/2025 0410 by Madison Baker RN Outcome: Progressing 01/07/2025 0409 by Madison Baker RN Outcome: Progressing Goal: Absence of cardiac dysrhythmias or at baseline 01/07/2025 0410 by Madison Baker RN Outcome: Progressing 01/07/2025 040 by Madison Baker RN Outcome: Progressing Goal: Cardiovascular status will improve 01/07/2025 0410 by Madison Baker RN Outcome: Progressing 01/07/2025 0409 by Madison Baker RN Outcome: Progressing Problem: Skin/Tissue Integrity Goal: Skin integrity remains intact 01/07/2025 0410 by Madison Baker RN Outcome: Progressing 01/07/2025 040 by Madison Baker RN Outcome: Progressing Goal: Oral mucous membranes remain intact 01/07/2025 0410 by Madison Baker RN Outcome: Progressing 01/07/2025 0409 by Madison Baker RN Outcome: Progressing Problem: Musculoskeletal Goal: Return mobility to safest level of function 01/07/2025 0410 by Madison Baker RN Outcome: Progressing 01/07/2025 040 by Madsion Baker RN Outcome: Progressing Goal: Return ADL status to a safe level of function 01/07/2025 0410 by Madison Baker RN Outcome: Progressing 01/07/2025 040 by Madison Baker RN Outcome: Progressing Goal: Ability to perform activities at highest level will improve 01/07/2025 0410 by Madison Baker RN Outcome: Progressing 01/07/2025 040 by Madison Baker RN Outcome: Progressing Goal: Mobility, ROM and muscle strength will improve 01/07/2025 0410 by Madison Baker RN Outcome: Progressing 01/07/2025 040 by Madison Baker RN Outcome: Progressing Problem: Genitourinary Goal: Absence of urinary retention 01/07/2025 0410 by Madison Baker RN Outcome: Progressing 01/07/2025 040 by Madison Baker RN Outcome: Progressing Problem: Metabolic/Fluid and Electrolytes Goal: Electrolytes maintained within normal limits 01/07/2025 0410 by Madison Baker RN Outcome: Progressing 01/07/2025 0409 by Madison Baker RN Outcome: Progressing Goal: Hemodynamic stability and optimal renal function maintained 01/07/2025 0410 by Madison Baker RN Outcome: Progressing 01/07/2025 040 by Madison Baker RN Outcome: Progressing Problem: Hematologic Goal: Maintains hematologic stability 01/07/2025 0410 by Madison Baker RN Outcome: Progressing 01/07/2025 040 by Madison Baker RN Outcome: Progressing Goals: Clinical Goals for the Shift: Pain, VSS, comfort [employer] Patient Centered Goal for Treatment: DC to home * Plan of Care - Betty Zuniga RN - 01/06/2025 3:02 PM CDT Goals: Clinical Goals for the Shift: Pain, VSS, comfort [facility] Goal for Treatment: DC to home Summary: . Neuro: AO x 4, pain being managed with Daulidid Q2 & Percocet Q8 Cardiac: denies any symptoms of chest pain Skin: clean, dry, and intact Resp: noisy breathing, no SOB or resp distress GI/: continent of bowel/bladder, last BM 01/06/25 Activity: Independent Problem: Discharge Planning Goal: Understanding discharge needs will improve Outcome: Progressing Flowsheets (Taken 01/06/2025 1451) Understanding of discharge needs will improve: Discuss information regarding discharge instructions Collaborate with case management interdisciplinary team Identify discharge barriers Problem: Lack of Knowledge Goal: Ability to develop a pain control plan will improve Outcome: Progressing Problem: Medication Goal: Satisfaction with pain management medication regimen will improve Outcome: Progressing Flowsheets (Taken 01/06/2025 1458) Satisfaction with pain management medication regimen will improve: Assess satisfaction with pain management regimen Monitor patient controlled analgesia or anesthesia Provide administration of medications prior to painful activities Evaluate medication effects Manage analgesics Report inadequate pain control to healthcare provider Problem: Sensory Goal: Ability to identify factors that increase pain levels will improve while working to decrease the patient's pain levels Outcome: Progressing Flowsheets (Taken 01/06/2025 1452) Ability to identify factors that increase pain levels will improve while working to decrease patients pain levels: Assess pain status Explore factors that precipitate, worsens, or relieves pain or discomfort Assess effects of pain control measures Provide hot or cold therapy Observe non-verbal cues of discomfort, such as restlessness, muscle tension, or altered vital signs Problem: Coping Goal: Ability to cope will improve Outcome: Progressing Flowsheets (Taken 01/06/20251457) Ability to cope will Improve: Encourage vebalization of feelings surrounding pain Provide emotional support Perform depression screening Assess beliefs of pain Problem: Neurosensory Goal: Achieves stable or improved neurological status Outcome: Progressing Flowsheets (Taken 01/06/20251457) Achieves Stable or Improved Neurological Status: Assess for and report changes in neurological status Maintain blood pressure and fluid volume within ordered parameters to optimize cerebral perfusion and minimize risk of hemorrhage Problem: Cardiovascular Goal: Maintains optimal cardiac output and hemodynamic stability Outcome: Progressing Flowsheets (Taken 01/06/20251457) Maintain optimal cardiac output and hemodynamic Stability: Monitor vital signs, rhythm, and trends Monitor for bleeding, hypotension and signs of decreased cardiac output Administer and titrate ordered vasoactive medications to optimize hemodynamic stability Monitor arterial and/or venous puncture sites for bleeding and/or hematoma Assess quality of pulses, skin color and temperature Problem: Musculoskeletal Goal: Return mobility to safest level of function Outcome: Progressing Flowsheets (Taken 01/06/20251457) Return mobility to safest level of function: Assess patient stability and activity tolerance for standing, transferring and ambulating with or without assistive devices Assist with transfers and ambulation using safe patient handling equipment as needed Problem: Metabolic/Fluid and Electrolytes Goal: Electrolytes maintained within normal limits Outcome: Progressing Flowsheets (Taken 01/06/20251457) Electrolytes maintained within normal limits: Monitor labs and assess patient for signs and symptoms of electrolyte imbalances Administer electrolyte replacement as ordered Monitor response to electrolyte replacements, including repeat lab results as appropriate Fluid restriction as ordered * Plan of Care - Princess Brown LCSW - 01/06/2025 2:19 PM CDT SW attempted visit. Pt laying in bed with covers over his head; he did not respond when SW came into the room. SW services will be available to pt as needed. * Plan of Care - Terri Smith RN - 01/06/2025 6:05 AM CDT Goals: Clinical Goals for the Shift: rest/pain control [facility] Goal for Treatment: dc home Problem: Medication Goal: Satisfaction with pain management medication regimen will improve Outcome: Not Progressing Flowsheets (Taken 01/06/2025 0604) Satisfaction with pain management medication regimen will improve: Assess satisfaction with pain management regimen Monitor patient controlled analgesia or anesthesia Provide administration of medications prior to painful activities Evaluate medication effects Manage analgesics Summary: * Plan of Care - Betty Zuniga RN - 01/05/2025 4:15 PM CDT Goals: Clinical Goals for the Shift: pain, VSS, safety [employer] Patient Centered Goal for Treatment: DC to home Summary: . Neuro: AO x 4, independent IV patent and flushes easily Cardiac: Denies any chest pain or cardiac symptoms Skin: clean, dry, and intact, scattered keloids on neck/arms Resp: denies any SOB or resp distress- noisy breathing, but clear lungs GI/:last BM 01/04/25, continent of bowel/bladder, using urinal for UOP Activity: Independent-yodit being managed with Daulidid & Percocet Problem: Medication Goal: Satisfaction with pain management medication regimen will improve Outcome: Ongoing Flowsheets (Taken 01/05/2025 1613) Satisfaction with pain management medication regimen will improve: Assess satisfaction with pain management regimen Monitor patient controlled analgesia or anesthesia Evaluate medication effects Manage analgesics Provide administration of medications prior to painful activities Problem: Health Behavior Goal: Identification of resources available to assist in meeting health care needs will improve Outcome: Ongoing Flowsheets (Taken 01/04/2025 1823) Identification of resources available to assist in meeting health care needs will improve: Collaborate with pain management Refer to pain support group Collaborate with all therapies Problem: Sensory Goal: Ability to identify factors that increase pain levels will improve while working to decrease the patient's pain levels Outcome: Progressing Problem: Respiratory Goal: Achieves optimal ventilation and oxygenation Outcome: Progressing Flowsheets (Taken 01/05/2025 1613) Achieves optimal ventilation and oxygenation: Assess for changes in respiratory status Assess for changes in mentation and behavior Position to facilitate oxygenation and minimize respiratory effort Problem: Sensory Goal: Ability to identify factors that increase pain levels will improve while working to decrease the patient's pain levels Outcome: Progressing Problem: Respiratory Goal: Achieves optimal ventilation and oxygenation Outcome: Progressing Flowsheets (Taken 01/05/2025 1613) Achieves optimal ventilation and oxygenation: Assess for changes in respiratory status Assess for changes in mentation and behavior Position to facilitate oxygenation and minimize respiratory effort * Plan of Care - Cheyanne Hines RN - 01/05/2025 2:20 PM CDT CM Care Progression Expected Discharge Date and Time Expected Discharge Date Jan 07, 2025 Next steps with the transition plan: Per IDR, will change dosing of Dilaudid. Patient has agreed touse the Dilaudid as breakthrough and begin taking his Percocet more regular. Retic count is increased to 19.5 from 15 on admission. When medically stable for discharge, will anticipate return home with support from friends and family. Will need transportation arranged for discharge. This discharge plan has been discussed with patient and care team with agreement to the post-acute care plan and understanding of the expectations for discharge when medically ready. 01/05/25 1420 Discharge Planning Support System Friends/neighbors Anticipated discharge level of care Private residence Does the patient need discharge transport arranged? Yes Type of Transportation Medicaid transport Has discharge transport been arranged? No Post Acute Care Plan Post Acute Care Needs Identified No Home Care Services N/A OP Services N/A DME N/A Post Acute Care Facility N/A Cheyanne Hines, [facility] * Plan of Care - Kendra Simms RN - 01/05/2025 6:26 AM CDT Problem: Discharge Planning Goal: Understanding discharge needs will improve Outcome: Progressing Problem: Lack of Knowledge Goal: Ability to develop a pain control plan will improve Outcome: Progressing Problem: Medication Goal: Satisfaction with pain management medication regimen will improve Outcome: Progressing Problem: Sensory Goal: Ability to identify factors that increase pain levels will improve while working to decrease the patient's pain levels Outcome: Progressing Problem: Coping Goal: Ability to cope will improve Outcome: Progressing Problem: Health Behavior Goal: Identification of resources available to assist in meeting health care needs will improve Outcome: Progressing Problem: Neurosensory Goal: Achieves stable or improved neurological status Outcome: Progressing Goal: Achieves maximal functionality and self care Outcome: Progressing Problem: Respiratory Goal: Achieves optimal ventilation and oxygenation Outcome: Progressing Goal: Ability to maintain a clear airway will improve Outcome: Progressing Problem: Cardiovascular Goal: Maintains optimal cardiac output and hemodynamic stability Outcome: Progressing Goal: Absence of cardiac dysrhythmias or at baseline Outcome: Progressing Goal: Cardiovascular status will improve Outcome: Progressing Problem: Skin/Tissue Integrity Goal: Skin integrity remains intact Outcome: Progressing Goal: Oral mucous membranes remain intact Outcome: Progressing Problem: Musculoskeletal Goal: Return mobility to safest level of function Outcome: Progressing Goal: Return ADL status to a safe level of function Outcome: Progressing Goal: Ability to perform activities at highest level will improve Outcome: Progressing Goal: Mobility, ROM and muscle strength will improve Outcome: Progressing Problem: Genitourinary Goal: Absence of urinary retention Outcome: Progressing Problem: Metabolic/Fluid and Electrolytes Goal: Electrolytes maintained within normal limits Outcome: Progressing Goal: Hemodynamic stability and optimal renal function maintained Outcome: Progressing Problem: Hematologic Goal: Maintains hematologic stability Outcome: Progressing Goals: Clinical Goals for the Shift: Patient's safety will be maintained, fall will be prevented, rest will be promoted, and pain will be managed [employer] Patient Centered Goal for Treatment: Safe DC Summary: Patient's safety maintained, fall prevented, rest promoted, and pain managed * Plan of Joseluis - Betty Zuniga RN - 01/04/2025 6:24 PM CDT Goals: Clinical Goals for the Shift: Safety, VSS, Pain control [employer] Patient Centered Goal for Treatment: Dc to home Summary: . Neuro: AO x 4, independent, IV clean and patent Cardiac: denies any chest pain or cardiac symp, no tele monitor Skin: clean, dry, and intact Resp: denies any symp of resp distress or SOB GI/: last BM 01/04/25, continent of bowel/bladder Activity: independent Sickle Cell crisis pain being managed with Dauladid & Percocet Problem: Discharge Planning Goal: Understanding discharge needs will improve Outcome: Progressing Flowsheets (Taken 01/04/20251822) Understanding of discharge needs will improve: Discuss information regarding discharge instructions Collaborate with case management interdisciplinary team Problem: Lack of Knowledge Goal: Ability to develop a pain control plan will improve Outcome: Progressing Flowsheets (Taken 01/04/20251822) Ability to develop a pain control plan will improve: Explain causes of pain and how long pain can be expected to last Educate pain scale for assessing level of pain Problem: Medication Goal: Satisfaction with pain management medication regimen will improve Outcome: Progressing Flowsheets (Taken 01/04/20251822) Satisfaction with pain management medication regimen will improve: Assess satisfaction with pain management regimen Evaluate medication effects Manage analgesics Report inadequate pain control to healthcare provider Monitor patient controlled analgesia or anesthesia Provide administration of medications prior to painful activities Problem: Health Behavior Goal: Identification of resources available to assist in meeting health care needs will improve Outcome: Progressing Flowsheets (Taken 01/04/20251822) Identification of resources available to assist in meeting health care needs will improve: Collaborate with pain management Refer to pain support group Collaborate with all therapies * Plan of Care - Princess Brown LCSW - 01/04/2025 1:50 PM CDT SW attempted visit but pt declined visit this day. * Plan of Care - Kendra Simms RN - 01/04/2025 1:47 AM CDT Problem: Discharge Planning Goal: Understanding discharge needs will improve Outcome: Progressing Problem: Lack of Knowledge Goal: Ability to develop a pain control plan will improve Outcome: Progressing Problem: Medication Goal: Satisfaction with pain management medication regimen will improve Outcome: Progressing Problem: Sensory Goal: Ability to identify factors that increase pain levels will improve while working to decrease the patient's pain levels Outcome: Progressing Problem: Coping Goal: Ability to cope will improve Outcome: Progressing Problem: Health Behavior Goal: Identification of resources available to assist in meeting health care needs will improve Outcome: Progressing Problem: Neurosensory Goal: Achieves stable or improved neurological status Outcome: Progressing Goal: Achieves maximal functionality and self care Outcome: Progressing Problem: Respiratory Goal: Achieves optimal ventilation and oxygenation Outcome: Progressing Goal: Ability to maintain a clear airway will improve Outcome: Progressing Problem: Cardiovascular Goal: Maintains optimal cardiac output and hemodynamic stability Outcome: Progressing Goal: Absence of cardiac dysrhythmias or at baseline Outcome: Progressing Goal: Cardiovascular status will improve Outcome: Progressing Problem: Skin/Tissue Integrity Goal: Skin integrity remains intact Outcome: Progressing Goal: Oral mucous membranes remain intact Outcome: Progressing Problem: Musculoskeletal Goal: Return mobility to safest level of function Outcome: Progressing Goal: Return ADL status to a safe level of function Outcome: Progressing Goal: Ability to perform activities at highest level will improve Outcome: Progressing Goal: Mobility, ROM and muscle strength will improve Outcome: Progressing Problem: Genitourinary Goal: Absence of urinary retention Outcome: Progressing Problem: Metabolic/Fluid and Electrolytes Goal: Electrolytes maintained within normal limits Outcome: Progressing Goal: Hemodynamic stability and optimal renal function maintained Outcome: Progressing Problem: Hematologic Goal: Maintains hematologic stability Outcome: Progressing Goals: Clinical Goals for the Shift: Patient's safety will be maintained, fall will be prevented, rest will be promoted, and pain will be managed Technical Publications Manager Patient Centered Goal for Treatment: Safe DC Summary: Patient's safety maintained, fall prevented, rest promoted, and pain managed * Plan of Care - Avinash Vegas RN - 01/03/2025 6:51 PM CDT Goals: Clinical Goals for the Shift: VSS, pain managment, IV fluids, safety, rest/comfort [facility] Patient [facility] Goal for Treatment: d/c home Problem: Discharge Planning Goal: Understanding discharge needs will improve Outcome: Progressing Problem: Lack of Knowledge Goal: Ability to develop a pain control plan will improve Outcome: Progressing Problem: Medication Goal: Satisfaction with pain management medication regimen will improve Outcome: Progressing Problem: Sensory Goal: Ability to identify factors that increase pain levels will improve while working to decrease the patient's pain levels Outcome: Progressing Problem: Coping Goal: Ability to cope will improve Outcome: Progressing Problem: Health Behavior Goal: Identification of resources available to assist in meeting health care needs will improve Outcome: Progressing Problem: Neurosensory Goal: Achieves stable or improved neurological status Outcome: Progressing Goal: Achieves maximal functionality and self care Outcome: Progressing Problem: Respiratory Goal: Achieves optimal ventilation and oxygenation Outcome: Progressing Goal: Ability to maintain a clear airway will improve Outcome: Progressing * Initial Assessments - Cheyanne Hinse RN - 01/03/2025 12:20 PM CDT CM Initial Assessment Interview Note Information Obtained From: Patient (01/03/25 1220) Admission Source: ED from home Impression: Met with patient at the bedside. He is pleasant to speak with. He is A/Ox4, VSS on RA. Patient states he has had multiple admission to different hospitals for his sickle cell and has experienced an increase in crisis as of late. Patient states he has been compliant with his medications and has attempted to follow up with Dr. Gonzalez post discharge. Patient states he is currently living with a friend and does not wish for any assistance at this time. Plan Includes: Admitted for sickle cell crisis. He is currently on IV Dilaudid 2mg q2h PRN, as wellas PO Benadryl ONLY QID, Percocet 10-325mg QID PRN, IVF @ 75ml/hr. Retic count up to 18.5 today from 15 yesterday. CM to verify he has F/U appointment with Dr. Gonzalez and has transportation to the appointment as well. Will anticipate returning to his friends home at time of discharge. May require transportation arrangement if friend is unable to take him home. Primary Source of Transportation: Does the patient need discharge transport arranged?: Yes Type of Transportation: Medicaid transport Has discharge transport been arranged?: No (01/03/25 1220) Health Insurance Coverage: Primary Coverage Payor Plan Insurance Group Employer/Plan Group [place] Payor Plan Address Payor Plan Phone Number Payor Plan Fax Number Effective Dates [address] [address] 01/25/2024 - None Entered [facility] [address] Subscriber Name Subscriber Date Member ID JOHNNY SIMON 1995 [id number] Pharmacy: [facility] [id number] [facility] [id number] [facility] [address] [facility] [address] Primary Care Provider: Laurent Gonzalez MD Prior to Admission: Functional Status: Independent with ADLs Primary Caregiver: Self Support System: Friends/neighbors When was the last time you have seen your PCP?: Over 1 yr Home Care Services: No Outpatient Services: No Durable Medical Equipment: None Living Arrangements: Friends Type of Residence: Private residence Does patient wish to return to care facility?: Yes, wishes to return Steps in home?: Yes, Outside of home, Yes, Inside home Number of steps inside: 10 steps Number of steps outside: 7 steps Medication management: Independent (01/03/25 1220) SDOH: Transportation: In the past 12 months, has lack of transportation kept you from medical appointments or from getting medications?: No In the past 12 months, has lack of transportation kept you from meetings, work, or from getting things needed for daily living?: No (01/03/25 160) Financial Resource: How hard is it for you to pay for the very basics like food, housing, medical care, and heating?: Not hard at all (01/03/25 160) Housing: In the last 12 months, was there a time when you were not able to pay the mortgage or rent on time?: No In the past 12 months, how many times have you moved where you were living?: 0 At any time in the past 12 months, were you homeless or living in a intermediate (including now)?: No (01/03/25 1602) Utilities: No, (01/03/25 160) Social Connections: In a typical week, how many times do you talk on the phone with family, friends, or neighbors?: More than three times a week How often do you get together with friends or relatives?: Twice a week How often do you attend quaker or worship services?: Never Do you belong to any clubs or organizations such as quaker groups, unions, fraternal or athletic groups, or school groups?: No How often do you attend meetings of the clubs or organizations you belong to?: Never Are you , , , , never , or living with a partner?: Never (01/03/25 1602) Food Insecurity: Within the past 12 months, you worried that your food would run out before you got the money to buymore.: Never true Within the past 12 months, the food you bought just didn't last and you didn't have money to get more.: Never true (01/03/25 1602) Anticipated Level of Care: Anticipated discharge level of care: Private residence Pt/Family agrees with Anticipated Level of Care: Yes (01/03/25 1220) Patient expects to be Discharged to: Private residence, (01/03/25 1220) Patient's Identified Problem/Goal Problem: Ensure acute medical needs are met and that patient has a safe discharge plan. Goal: Secure a discharge plan that patient/family are agreeable with and ensure patient has continuum of care. Case management will follow for discharge planning and send referrals as needed. Cheyanne Hines RN * Plan of Care - Janet Zuniga RN - 01/03/2025 1:44 AM CDT Goals: Clinical Goals for the Shift: VSS, pain managment, IV fluids, safety, rest/comfort [facility] Patient [facility] Goal for Treatment: d/c home Summary: Problem: Discharge Planning Goal: Understanding discharge needs will improve Outcome: Progressing Flowsheets (Taken 01/03/2025 014) Understanding of discharge needs will improve: Discuss information regarding discharge instructions Identify discharge barriers Problem: Lack of Knowledge Goal: Ability to develop a pain control plan will improve Outcome: Progressing Flowsheets (Taken 01/03/2025 014) Ability to develop a pain control plan will improve: Explain causes of pain and how long pain can be expected to last Teach information regarding pain management Educate pain scale for assessing level of pain Teach notification to healthcare provider of episodes of pain Problem: Medication Goal: Satisfaction with pain management medication regimen will improve Outcome: Progressing Flowsheets (Taken 01/03/2025141) Satisfaction with pain management medication regimen will improve: Evaluate medication effects Assess satisfaction with pain management regimen Problem: Sensory Goal: Ability to identify factors that increase pain levels will improve while working to decrease the patient's pain levels Outcome: Progressing Flowsheets (Taken 01/03/2025141) Ability to identify factors that increase pain levels will improve while working to decrease patients pain levels: Assess pain status Assess effects of pain control measures Observe non-verbal cues of discomfort, such as restlessness, muscle tension, or altered vital signs Explore factors that precipitate, worsens, or relieves pain or discomfort Problem: Coping Goal: Ability to cope will improve Outcome: Progressing Flowsheets (Taken 01/03/2025141) Ability to cope will Improve: Encourage vebalization of feelings surrounding pain Provide emotional support Assess beliefs of pain Problem: Neurosensory Goal: Achieves stable or improved neurological status Outcome: Progressing Flowsheets (Taken 01/03/2025141) Achieves Stable or Improved Neurological Status: Assess for and report changes in neurological status Problem: Respiratory Goal: Achieves optimal ventilation and oxygenation Outcome: Progressing Flowsheets (Taken 01/03/2025141) Achieves optimal ventilation and oxygenation: Assess for changes in respiratory status Goal: Ability to maintain a clear airway will improve Outcome: Progressing Flowsheets (Taken 01/03/2025141) Ability to maintain a clear airway will improve: Evaluate breath sounds Problem: Cardiovascular Goal: Maintains optimal cardiac output and hemodynamic stability Outcome: Progressing Flowsheets (Taken 01/03/2025141) Maintain optimal cardiac output and hemodynamic Stability: Monitor vital signs, rhythm, and trends Monitor for bleeding, hypotension and signs of decreased cardiac output Goal: Absence of cardiac dysrhythmias or at baseline Outcome: Progressing Flowsheets (Taken 01/03/2025141) Absence of cardiac dysrhythmias or at baseline: Continuous cardiac monitoring, monitor vital signs,obtain 12 lead EKG if indicated Goal: Cardiovascular status will improve Outcome: Progressing Flowsheets (Taken 01/03/2025141) Cardiovascular status will improve: Monitor for signs and symptoms of chest pain Instruct immediate reporting of any chest discomfort or pain Problem: Musculoskeletal Goal: Return mobility to safest level of function Outcome: Progressing Flowsheets (Taken 01/03/2025141) Return mobility to safest level of function: Assess patient stability and activity tolerance for standing, transferring and ambulating with or without assistive devices Assist with transfers and ambulation using safe patient handling equipment as needed Problem: Metabolic/Fluid and Electrolytes Goal: Electrolytes maintained within normal limits Outcome: Progressing Flowsheets (Taken 01/03/2025141) Electrolytes maintained within normal limits: Monitor labs and assess patient for signs and symptoms of electrolyte imbalances Goal: Hemodynamic stability and optimal renal function maintained Outcome: Progressing Flowsheets (Taken 01/03/2025141) Hemodynamic stability and optimal renal function maintained: Monitor labs and assess for signs and symptoms of volume excess or deficit Monitor intake, output and patient weight Problem: Hematologic Goal: Maintains hematologic stability Outcome: Progressing Flowsheets (Taken 01/03/2025141) Maintains Hematologic Stability: Assess for signs and symptoms of bleeding or hemorrhage Monitor labs * Plan of Care - Natalia Sands RN - 01/02/2025 9:00 AM CDT Goals: Clinical Goals for the Shift: Pain control, cares, comfort, and safety [facility] Patient [facility] Goal for Treatment: Safe d/c home w/ no pain Summary: Patient really prefers dilaudid verses percocet. * Plan of Care - Audra Dalton RN - 01/02/2025 6:08 AM CDT Goals: Clinical Goals for the Shift: Pain control, cares, comfort, and safety Technical Publications Manager Patient Centered Goal for Treatment: Safe d/c home w/ no pain Summary: Pt requested PRN dil every 2 hours for a 9/10 or 10/10 pain. Patient does not appear to be in distress and vitals are stable on RA. Patient was up on his electronic device most of this shift. Patientis receiving LR via IV at 75ml/hr. Patient has adequate intake and output. Patient refused morning labs from press room supervisor.This nurse will continue to monitor. * Plan of Care - Natalia Sands RN - 01/01/2025 9:00 AM CDT Goals: Clinical Goals for the Shift: Monitor VS, safety, and comfort; Pain management; IV fluids; Rest [facility] Patient [facility] Goal for Treatment: Safe discharge to home Summary: Patient is now calm and good with his treatment and pain arrangements with his doctor. * Plan of Care - Alfonso Gary DO Yassine - 01/01/2025 7:35 AM CDT Brief Hospitalist Plan of Care Subjective: Patient seen and examined this morning. Currently complains of no improvement in pain at this time notes predominant pain location is in his shoulders. Denies any chest pain shortness of breath or other acute symptoms. Notes this is his typical crisis Objective: VS reviewed Exam notable for Constitutional: Appearance: He is well-developed. HENT: Head: Normocephalic and atraumatic. Cardiovascular: Rate and Rhythm: Regular rhythm. Tachycardia present. Heart sounds: Normal heart sounds. Pulmonary: Effort: Pulmonary effort is normal. Breath sounds: Normal breath sounds. Abdominal: Palpations: Abdomen is soft. Tenderness: There is no abdominal tenderness. Musculoskeletal: General: Normal range of motion. Skin: General: Skin is warm and dry. Neurological: General: No focal deficit present. Mental Status: He is alert and oriented to person, place, and time. Labs, radiology, and diagnostic studies reviewed Assessment and Plan: Principal Problem: Acute sickle cell crisis (HCC) Resolved Problems: No resolved hospital problems. Labs and imaging above reviewed with ordering provider in ED and discussed plan of care. Reviewed prior external outpatient notes independently. Sickle Cell Disease with Pain Crisis -do not suspect acute chest at this time -IV hydration with LR - Discussed patient's home regimen at length. He notes that he takes 30 mg Percocet every 8 hours, we will adjust pain control as noted below -pain control: 1st line home percocet 20 mg q6h prn; second-line/breakthrough IV Dilaudid 2 mg every 2 hours. 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 Yassine Hamilton DO [facility] Hospitalist * Plan of Care - Teri High RN - 01/01/2025 6:53 AM CDT Goals: Clinical Goals for the Shift: Monitor VS, safety, and comfort; Pain management; IV fluids; Rest Technical Publications Manager Patient Centered Goal for Treatment: Safe discharge to home Problem: Discharge Planning Goal: Understanding discharge needs will improve Outcome: Ongoing Flowsheets (Taken 01/01/2025650) Understanding of discharge needs will improve: Discuss information regarding discharge instructions Identify discharge barriers Problem: Lack of Knowledge Goal: Ability to develop a pain control plan will improve Outcome: Ongoing Flowsheets (Taken 01/01/2025650) Ability to develop a pain control plan will improve: Explain causes of pain and how long pain can be expected to last Educate pain scale for assessing level of pain Teach information regarding pain management Teach notification to healthcare provider of episodes of pain Problem: Medication Goal: Satisfaction with pain management medication regimen will improve Outcome: Ongoing Flowsheets (Taken 01/01/2025650) Satisfaction with pain management medication regimen will improve: Assess satisfaction with pain management regimen Report inadequate pain control to healthcare provider Problem: Sensory Goal: Ability to identify factors that increase pain levels will improve while working to decrease the patient's pain levels Outcome: Ongoing Flowsheets (Taken 01/01/2025650) Ability to identify factors that increase pain levels will improve while working to decrease patients pain levels: Assess pain status Observe non-verbal cues of discomfort, such as restlessness, muscle tension, or altered vital signs Provide hot or cold therapy Assess effects of pain control measures Problem: Coping Goal: Ability to cope will improve Outcome: Ongoing Flowsheets (Taken 01/01/2025650) Ability to cope will Improve: Encourage vebalization of feelings surrounding pain Provide emotional support Assess beliefs of pain Problem: Neurosensory Goal: Achieves stable or improved neurological status Outcome: Ongoing Flowsheets (Taken 01/01/2025650) Achieves Stable or Improved Neurological Status: Assess for and report changes in neurological status Goal: Achieves maximal functionality and self care Outcome: Ongoing Flowsheets (Taken 01/01/2025650) Achieves maximal functionality and self care: Monitor swallowing and airway patency with patient fatigue and changes in neurological status Problem: Respiratory Goal: Achieves optimal ventilation and oxygenation Outcome: Ongoing Flowsheets (Taken 01/01/2025650) Achieves optimal ventilation and oxygenation: Assess for changes in respiratory status Assess for changes in mentation and behavior Problem: Cardiovascular Goal: Maintains optimal cardiac output and hemodynamic stability Outcome: Ongoing Flowsheets (Taken 01/01/2025650) Maintain optimal cardiac output and hemodynamic Stability: Monitor vital signs, rhythm, and trends Monitor for bleeding, hypotension and signs of decreased cardiac output Goal: Absence of cardiac dysrhythmias or at baseline Outcome: Ongoing Flowsheets (Taken 01/01/2025650) Absence of cardiac dysrhythmias or at baseline: Continuous cardiac monitoring, monitor vital signs,obtain 12 lead EKG if indicated Goal: Cardiovascular status will improve Outcome: Ongoing Flowsheets (Taken 01/01/2025650) Cardiovascular status will improve: Monitor for signs and symptoms of chest pain Instruct immediate reporting of any chest discomfort or pain Problem: Skin/Tissue Integrity Goal: Skin integrity remains intact Outcome: Ongoing Flowsheets (Taken 01/01/2025650) Skin integrity remains intact: Assess and document risk factors for pressure injury development Monitor for areas of redness and/or skin breakdown Assess and document skin integrity Goal: Oral mucous membranes remain intact Outcome: Ongoing Flowsheets (Taken 01/01/2025650) Oral mucous membranes remain intact: Assess oral mucosa and hygiene practices Implement preventative oral hygiene regimen Problem: Musculoskeletal Goal: Return mobility to safest level of function Outcome: Ongoing Flowsheets (Taken 01/01/2025650) Return mobility to safest level of function: Assess patient stability and activity tolerance for standing, transferring and ambulating with or without assistive devices Assist with transfers and ambulation using safe patient handling equipment as needed Goal: Return ADL status to a safe level of function Outcome: Ongoing Flowsheets (Taken 01/01/2025650) Return activities of daily living status to a safe level of function: Assess patient's activities of daily living deficits and provide assistive devices as needed Obtain PT/OT consults as needed Goal: Ability to perform activities at highest level will improve Outcome: Ongoing Flowsheets (Taken 01/01/2025650) Ability to perform activities at highest level will improve: Collaborate with rehabilitation services Goal: Mobility, ROM and muscle strength will improve Outcome: Ongoing Flowsheets (Taken 01/01/2025650) Mobility, ROM and muscle strength will improve: Provide proper bed mobility techniques Encourage mobilization to extent of ability Problem: Genitourinary Goal: Absence of urinary retention Outcome: Ongoing Flowsheets (Taken 01/01/2025650) Absence of urinary retention: Assess patient???s ability to void and empty bladder Assess amount and/or characteristics of urine Problem: Metabolic/Fluid and Electrolytes Goal: Electrolytes maintained within normal limits Outcome: Ongoing Flowsheets (Taken 01/01/2025650) Electrolytes maintained within normal limits: Monitor labs and assess patient for signs and symptoms of electrolyte imbalances Goal: Hemodynamic stability and optimal renal function maintained Outcome: Ongoing Flowsheets (Taken 01/01/2025650) Hemodynamic stability and optimal renal function maintained: Monitor labs and assess for signs and symptoms of volume excess or deficit Problem: Hematologic Goal: Maintains hematologic stability Outcome: Ongoing Flowsheets (Taken 01/01/2025650) Maintains Hematologic Stability: Assess for signs and symptoms of bleeding or hemorrhage Monitor labs Summary: Patient admitted to room 524 from ED via stretcher. Covering service notified. Patient presents with Acute sickle cell crisis. Orders reviewed & will continue to monitor. Patient and/or automobile rental representative oriented to environment, equipment, and informed of the following as found in admission booklet: patient rights & responsibilities, visitor policy, hand and respiratory hygiene practice. Assessment of patient???s baseline is established at the beginning of the shift in flowsheets. Patient reassessed per order, unexpected findings and/or deviations from baseline are captured in flowsheets. Frequent safety checks and comfort rounds provided. Orders and/or nursing care completed as indicated. Patient monitored for response to interventions and treatments as documented in flowsheets. Plan of care discussed with patient/automobile rental representative, including as it relates to Principal Problem: Acute sickle cell crisis (HCC) Patient progressing. Will continue to monitor. documented in this encounter Plan of Treatment Pending Results Name Type Priority Associated Diagnoses Date /Time Crossmatch Lab Timed 01/16/2025 10: 42 AM CDT Pathologist comment, Blood Bank Lab STAT 01/16/2025 3:58 PM CDT Scheduled Orders Name Type Priority Associated Diagnoses Orde r Schedule Crossmatch Lab Timed Once for 1 Occ urrences starting 01/16/2025 until 01/16/2025 Pathologist comment, Blood Bank Lab STAT Once for 1 Occur rences starting 01/16/2025 until 01/16/2025 documented as of this encounter Procedures Procedure Name Priority Date/Time Associated Diagnosis Comments EGFR Routine 01/18/2025 6:14 AM CDT DIFFERENTIAL AUTO Routine 01/18/2025 6:1 4 AM CDT CBC WITH AUTO DIFFERENTIAL Routine 01/18/2025 6:14 AM CDT RETICULOCYTES Routine 01/18/2025 6:14 AM CDT BASIC METABOLIC PANEL Routine 01/18/2025 6:14 AM CDT EGFR Routine 01/17/2025 6:04 AM CDT DIFFERENTIAL AUTO Routine 01/17/2025 6:0 4 AM CDT CBC WITH AUTO DIFFERENTIAL Routine 01/17/2025 6:04 AM CDT RETICULOCYTES Routine 01/17/2025 6:04 AM CDT BASIC METABOLIC PANEL Routine 01/17/2025 6:04 AM CDT TROPONIN T HIGH-SENSITIVITY 4-HR Timed 01/16/2025 6:37 PM CDT TROPONIN T HIGH-SENSITIVITY 2-HOUR Timed 01/16/2025 5:09 PM CDT POST-TRXN ABO/RH STAT 01/16/2025 3:58 PM CDT PRE-TRXN ABO/RH STAT 01/16/2025 3:58 PM CDT POST TRXN SAMY STAT 01/16/2025 3:58 PM CDT PRE TRXN SAMY STAT 01/16/2025 3:58 PM CDT ECG 12-LEAD STAT 01/16/2025 2:47 PM CDT TROPONIN T HIGH-SENSITIVITY SERIES (BASELINE, 2HR, 4HR, 6HR) Routine 01/16/2025 2:40 PM CDT DIFFERENTIAL AUTO STAT 01/16/2025 2:4 0 PM CDT CBC WITH AUTO DIFFERENTIAL STAT 01/16/2025 2:40 PM CDT XR CHEST 1 VIEW ED Urgent/IP Urgent 01/16/2025 2:20 PM CDT TRANSFUSE RED BLOOD CELLS Timed 01/16/2025 12:29 PM CDT PREPARE RBC Timed 01/16/2025 11:30 AM CDT ABO/RH Timed 01/16/2025 10:42 AM CDT CROSSMATCH Timed 01/16/2025 10:42 AM CDT ANTIBODY SCREEN Timed 01/16/2025 10:42 AM CDT TYPE AND SCREEN Timed 01/16/2025 10:42 AM CDT EGFR Routine 01/16/2025 2:59 AM CDT DIFFERENTIAL AUTO Routine 01/16/2025 2:5 9 AM CDT CBC WITH AUTO DIFFERENTIAL Routine 01/16/2025 2:59 AM CDT RETICULOCYTES Routine 01/16/2025 2:59 AM CDT BASIC METABOLIC PANEL Routine 01/16/2025 2:59 AM CDT BLOOD SMEAR REVIEW Routine 01/15/2025 5: 38 AM CDT EGFR Routine 01/15/2025 5:38 AM CDT DIFFERENTIAL AUTO Routine 01/15/2025 5:3 8 AM CDT CBC WITH AUTO DIFFERENTIAL Routine 01/15/2025 5:38 AM CDT RETICULOCYTES Routine 01/15/2025 5:38 AM CDT BASIC METABOLIC PANEL Routine 01/15/2025 5:38 AM CDT EGFR Routine 01/14/2025 6:18 AM CDT DIFFERENTIAL AUTO Routine 01/14/2025 6:1 8 AM CDT CBC WITH AUTO DIFFERENTIAL Routine 01/14/2025 6:18 AM CDT RETICULOCYTES Routine 01/14/2025 6:18 AM CDT BASIC METABOLIC PANEL Routine 01/14/2025 6:18 AM CDT XR CHEST PA LATERAL 2 VIEWS IP Routine 01/11/2025 1:25 PM CDT EGFR Routine 01/11/2025 1:12 PM CDT CBC WITH AUTO DIFFERENTIAL Routine 01/11/2025 1:12 PM CDT MANUAL DIFFERENTIAL Routine 01/11/2025 1 :12 PM CDT RETICULOCYTES Routine 01/11/2025 1:12 PM CDT BASIC METABOLIC PANEL Routine 01/11/2025 1:12 PM CDT XR CHEST 1 VIEW Critical/Life-T hreatening 01/10/2025 1:39 PM CDT EGFR Routine 01/10/2025 10:29 AM CDT DIFFERENTIAL AUTO Routine 01/10/2025 10: 29 AM CDT CBC WITH AUTO DIFFERENTIAL Routine 01/10/2025 10:29 AM CDT RETICULOCYTES Routine 01/10/2025 10:29 AM CDT BASIC METABOLIC PANEL Routine 01/10/2025 10:29 AM CDT DIFFERENTIAL AUTO Routine 01/09/2025 4:5 5 AM CDT CBC WITH AUTO DIFFERENTIAL Routine 01/09/2025 4:55 AM CDT RETICULOCYTES Routine 01/09/2025 4:55 AM CDT EGFR Routine 01/09/2025 4:50 AM CDT BASIC METABOLIC PANEL Routine 01/09/2025 4:[address] ABDOMEN PELVIS WO CONTRAST IP Routine 01/08/2025 11:07 AM CDT EGFR Routine 01/07/2025 10:48 AM CDT CBC WITH AUTO DIFFERENTIAL STAT 01/07/2025 10:48 AM CDT MANUAL DIFFERENTIAL STAT 01/07/2025 1 0:48 AM CDT RETICULOCYTES Routine 01/07/2025 10:48 AM CDT BASIC METABOLIC PANEL Routine 01/07/2025 10:48 AM CDT EGFR Routine 01/06/2025 6:52 AM CDT BASIC METABOLIC PANEL Routine 01/06/2025 6:52 AM CDT EGFR Routine 01/04/2025 7:27 AM CDT CBC WITH AUTO DIFFERENTIAL Routine 01/04/2025 7:27 AM CDT MANUAL DIFFERENTIAL Routine 01/04/2025 7 :27 AM CDT RETICULOCYTES Routine 01/04/2025 7:27 AM CDT BASIC METABOLIC PANEL Routine 01/04/2025 7:27 AM CDT BLOOD SMEAR REVIEW Routine 01/03/2025 7: 30 AM CDT EGFR Routine 01/03/2025 7:30 AM CDT DIFFERENTIAL AUTO Routine 01/03/2025 7:3 0 AM CDT CBC WITH AUTO DIFFERENTIAL Routine 01/03/2025 7:30 AM CDT RETICULOCYTES Routine 01/03/2025 7:30 AM CDT BASIC METABOLIC PANEL Routine 01/03/2025 7:30 AM CDT TROPONIN T HIGH-SENSITIVITY 4-HR Timed 01/01/2025 4:09 AM CDT XR CHEST 1 VIEW ED 01/01/2025 12:19 AM CDT TROPONIN T HIGH-SENSITIVITY SERIES (BASELINE, 2HR, 4HR, 6HR) STAT 12/31/2024 11:57 PM CDT EGFR STAT 12/31/2024 11:57 PM CDT DIFFERENTIAL AUTO STAT 12/31/2024 11: 57 PM CDT CBC WITH AUTO DIFFERENTIAL STAT 12/31/2024 11:57 PM CDT RETICULOCYTES STAT 12/31/2024 11:57 PM CDT COMPREHENSIVE METABOLIC PANEL STAT 12/31/2024 11:57 PM CDT ECG 12-LEAD STAT 12/31/2024 11:51 PM CDT documented in this encounter Results * eGFR (01/18/2025 6:14 AM CDT) Pathologist [facility] eGFR >90 >=60 mL/min/1. 73 m2 Comment: Interpretive Data Reference Interval Normal >/= 90 mL/min/1.73m2 Mildly decreased* 60 - 89 mL/min/1.73m2 Mildly to moderately decreased 45 - 59 mL/min/1.73m2 Moderately to severely decreased 30 - 44 mL/min/1.73m2 Severely decreased 15 - 29 mL/min/1.73m2 Kidney Failure < 15 mL/min/1.73m2 *Relative to young adult level Estimated glomerular filtration rate is determined by the 2020 CKD-EPI equation recommended by the National Kidney Foundation (A Unifying Approach to GFR Estimation: Recommendations of the NKF-ASK Task Force on Reassessing the Inclusion of Race in Diagnosing Kidney Disease, JASN 2020). The CKD-EPI equation should not be used for patients with unstable renal function and has not been validated in children and those over 70. Current interpretive data was last reviewed 2021. Testing performed by: [facility], [address] [place] [address]., [address] Blood 01/18/2025 6:14 AM CDT 01/18/2025 6:34 AM CDT us Rasta Garcia MD LAB BLOOD ORDERABLES Final Res ult [facility] [address] [facility] [place] [address] * (ABNORMAL) Differential, auto (01/18/2025 6:14 AM CDT) Neutrophil abs 5.66 1.50 - 6.50 K/cumm Comment:Testing performed by : [address] [address] Imm gran abs 0.06 0.00 - 0.10 K/cumm [facility] Comment:Testing performed by : [address], [place]., [address] Lymphocyte abs 4.21(H) 0.80 - 3.30 K/cumm [facility] Comment:Testing performed by : [address], [place]., [address] Monocyte abs 1.53(H) 0.20 - 0.80 K/cumm [facility] Comment:Testing performed by : [address] [address] Eosinophil abs 0.32 0.00 - 0.50 K/cumm [facility] Comment:Testing performed by : [address] [address] Basophil abs 0.06 0.00 - 0.10 K/cumm [facility] Comment:Testing performed by : [address] [address] Neutrophil pct 47.8 % [facility] Comment: Interpretive Data Percent cell count reference ranges are not reported, since discordance with absolute values may lead to misinterpretation of CBC data. Current Interpretive Data was last revised on 2017. Testing performed by: [address] [address] Imm gran pct 0.5 % [facility] Comment: Interpretive Data Percent cell count reference ranges are not reported, since discordance with absolute values may lead to misinterpretation of CBC data. Current Interpretive Data was last revised on 2017. Testing performed by: [address] [address] Lymphocyte pct 35.6 % [facility] Comment: Interpretive Data Percent cell count reference ranges are not reported, since discordance with absolute values may lead to misinterpretation of CBC data. Current Interpretive Data was last revised on 2017. Testing performed by: [address] [address] Monocyte pct 12.9 % [facility] Comment: Interpretive Data Percent cell count reference ranges are not reported, since discordance with absolute values may lead to misinterpretation of CBC data. Current Interpretive Data was last revised on 2017. Testing performed by: [address] [address] Eosinophil pct 2.7 % [facility] Comment: Interpretive Data Percent cell count reference ranges are not reported, since discordance with absolute values may lead to misinterpretation of CBC data. Current Interpretive Data was last revised on 2017. Testing performed by: [address] [address] Basophil pct 0.5 % [facility] Comment: Interpretive Data Percent cell count reference ranges are not reported, since discordance with absolute values may lead to misinterpretation of CBC data. Current Interpretive Data was last revised on 2017. Testing performed by: [address] [address] Blood 01/18/2025 6:14 AM CDT 01/18/2025 6:34 AM CDT us Rasta Garcia MD LAB BLOOD ORDERABLES Final Res ult [facility] [address] [facility] [place] [address] * (ABNORMAL) Reticulocyte Count (01/18/2025 6:14 AM CDT) Retics, absolute 362(H) 20 - 87 K/cumm Comment:Testing performed by : [address] [address] Retics 12.5(H) 0.4 - 2.9 % [facility] SHETTY Comment:Testing performed by : [address] [address] Reticulocyte Hgb 31.6 30.5 - 38.0 pg [facility] SHETTY Comment:Testing performed by : [address] [address] Blood 01/18/2025 6:14 AM CDT 01/18/2025 6:34 AM CDT us Rasta Garcia MD LAB BLOOD ORDERABLES Final Res ult [facility] [address] [facility] Department [place] [address] * (ABNORMAL) CBC with auto differential (01/18/2025 6:14 AM CDT) WBC 11.84(H) 3.80 - 9.90 K/cumm Comment:Testing performed by : [address] [address] Hgb 8.3(L) 13.0 - 17.5 g/dL [facility] Comment:Testing performed by : [address] [address] Hct 24.3(L) 38.9 - 50.3 % [facility] Comment:Testing performed by : [address] [address] Plt 302 150 - 400 K/cumm [facility] Comment:Testing performed by : [address], [address] MPV 9.9 9.1 - 12.3 fL [facility] Comment:Testing performed by : [address] [address] RBC 2.79(L) 4.30 - 5.80 M/cumm [facility] Comment:Testing performed by : [address] [address] MCV 87.1 81.3 - 96.4 fL [facility] Comment:Testing performed by : [address] [address] MCH 29.7 27.1 - 33.3 pg [facility] SHE[facility] Comment:Testing performed by : [address] [address] MCHC 34.2 32.3 - 35.7 g/dL [facility] Comment:Testing performed by : [address], [address] RDW CV 21.2(H) 11.1 - 14.9 % [facility] SHETT[facility] Comment:Testing performed by : [address] [address] RDW SD 66.2(H) 35.7 - 48.1 fL [facility] Comment:Testing performed by : [address] [address] NRBC abs 0.05(H) 0.00 - 0.01 K/cumm [facility] Comment:Testing performed by : [address] [address] Morphologic Screen Results confirmed by manual morphology review. [facility] Comment:Testing performed by : [address] [address] Blood 01/18/2025 6:14 AM CDT 01/18/2025 6:34 AM CDT us Rasta Garcia MD LAB BLOOD ORDERABLES Edited Re cindi - Final [facility] [place] [address] * (ABNORMAL) Basic metabolic panel (01/18/2025 6:14 AM CDT) Sodium 138 135 - 145 mmol/L Comment:Testing performed by : [address] [address] Potassium, pl 3.3 3.3 - 4.9 mmol/L [facility] SHE[facility] Comment:Testing performed by : [address] [address] Chloride 101 97 - 110 mmol/L [facility] Comment:Testing performed by : [address] [address] CO2 25 22 - 32 mmol/L [facility] Comment:Testing performed by : [address] [address] Anion gap 12 2 - 15 mmol/L [facility] Comment:Testing performed by : [address] [address] BUN 4(L) 6 - 25 mg/dL [facility] Comment:Testing performed by : [address] [address] Creatinine 0.61(L) 0.80 - 1.30 mg/dL [facility] Comment:Testing performed by : [address] [address] Glucose 105 70 - 199 mg/dL [facility] Comment: Interpretive Data Fasting glucose >/= 126 mg/dl is diagnostic for diabetes. Fasting is defined as no caloric intake for at least 8 hours. Fasting glucose between 100 mg/dl to 125 mg/dl is diagnostic of prediabetes. In a patient with classic symptoms of hyperglycemia or hyperglycemic crisis, a random glucose >/= 200 mg/dl is diagnostic for diabetes. In the absence of unequivocal hyperglycemia, results should be confirmed by repeat testing. The classification and Diagnosis of Diabetes Diabetes Care 2021; 46: S19-S40. Current interpretive data was last revised 2022. Testing performed by: [address] [address] Calcium 9.1 8.5 - 10.3 mg/dL [facility] Comment:Testing performed by : [address] [address] Blood 01/18/2025 6:14 AM CDT 01/18/2025 6:34 AM CDT us Rasta Garcia MD LAB BLOOD ORDERABLES Final Res ult [facility] [address] [facility] Department of Laboratories [place], [place] [id number] * eGFR (01/17/2025 6:04 AM CDT) eGFR >90 >=60 mL/min/1. 73 m2 Comment: Interpretive Data Reference Interval Normal >/= 90 mL/min/1.73m2 Mildly decreased* 60 - 89 mL/min/1.73m2 Mildly to moderately decreased 45 - 59 mL/min/1.73m2 Moderately to severely decreased 30 - 44 mL/min/1.73m2 Severely decreased 15 - 29 mL/min/1.73m2 Kidney Failure < 15 mL/min/1.73m2 *Relative to young adult level Estimated glomerular filtration rate is determined by the 2020 CKD-EPI equation recommended by the National Kidney Foundation (A Unifying Approach to GFR Estimation: Recommendations of the NKF-ASK Task Force on Reassessing the Inclusion of Race in Diagnosing Kidney Disease, JASN 2020). The CKD-EPI equation should not be used for patients with unstable renal function and has not been validated in children and those over 70. Current interpretive data was last reviewed 2021. Testing performed by: [address] [address] Blood 01/17/2025 6:04 AM CDT 01/17/2025 6:35 AM CDT us Rasta Garcia MD LAB BLOOD ORDERABLES Final Res ult [facility] [place] [address] * (ABNORMAL) Differential, auto (01/17/2025 6:04 AM CDT) Neutrophil abs 4.97 1.50 - 6.50 K/cumm Comment:Testing performed by : [address] [address] Imm gran abs 0.04 0.00 - 0.10 K/cumm [facility] Comment:Testing performed by : [address] [address] Lymphocyte abs 3.73(H) 0.80 - 3.30 K/cumm [facility] Comment:Testing performed by : [address] [address] Monocyte abs 1.04(H) 0.20 - 0.80 K/cumm [facility] Comment:Testing performed by : [address] [address] Eosinophil abs 0.35 0.00 - 0.50 K/cumm [facility] Comment:Testing performed by : [address] [address] Basophil abs 0.06 0.00 - 0.10 K/cumm [facility] Comment:Testing performed by : [address] [address] Neutrophil pct 48.8 % [facility] Comment: Interpretive Data Percent cell count reference ranges are not reported, since discordance with absolute values may lead to misinterpretation of CBC data. Current Interpretive Data was last revised on 2017. Testing performed by: [address] [address] Imm gran pct 0.4 % [facility] Comment: Interpretive Data Percent cell count reference ranges are not reported, since discordance with absolute values may lead to misinterpretation of CBC data. Current Interpretive Data was last revised on 2017. Testing performed by: [address] [address] Lymphocyte pct 36.6 % [facility] Comment: Interpretive Data Percent cell count reference ranges are not reported, since discordance with absolute values may lead to misinterpretation of CBC data. Current Interpretive Data was last revised on 2017. Testing performed by: [address] [address] Monocyte pct 10.2 % [facility] Comment: Interpretive Data Percent cell count reference ranges are not reported, since discordance with absolute values may lead to misinterpretation of CBC data. Current Interpretive Data was last revised on 2017. Testing performed by: [address] [address] Eosinophil pct 3.4 % [facility] Comment: Interpretive Data Percent cell count reference ranges are not reported, since discordance with absolute values may lead to misinterpretation of CBC data. Current Interpretive Data was last revised on 2017. Testing performed by: [address] [address] Basophil pct 0.6 % [facility] Comment: Interpretive Data Percent cell count reference ranges are not reported, since discordance with absolute values may lead to misinterpretation of CBC data. Current Interpretive Data was last revised on 2017. Testing performed by: [address] [address] Blood 01/17/2025 6:04 AM CDT 01/17/2025 6:35 AM CDT us Rasta Garcia MD LAB BLOOD ORDERABLES Final Res ult Performing Organization Address City/[facility] Co de Phone Number [facility] [address] [facility] [place] [address] * (ABNORMAL) Reticulocyte Count (01/17/2025 6:04 AM CDT) Retics, absolute 468(H) 20 - 87 K/cumm Comment:Testing performed by : [address] [address] Retics 15.7(H) 0.4 - 2.9 % [facility] Comment:Testing performed by : [address] [address] Reticulocyte Hgb 30.0(L) 30.5 - 38.0 pg [facility] Comment:Testing performed by : [address] [address] Blood 01/17/2025 6:04 AM CDT 01/17/2025 6:35 AM CDT us Rasta Garcia MD LAB BLOOD ORDERABLES Final Res ult Performing Organization Address [facility] de Phone Number [facility] [place] [address] * (ABNORMAL) CBC with auto differential (01/17/2025 6:04 AM CDT) Pathologist [facility] WBC 10.19(H) 3.80 - 9.90 K/cumm Comment:Testing performed by : [address] [address] Hgb 8.3(L) 13.0 - 17.5 g/dL [facility] SHETT[facility] Comment:Testing performed by : [address] [address] Hct 24.0(L) 38.9 - 50.3 % [facility] Comment:Testing performed by : [address] [address] Plt 329 150 - 400 K/cumm [facility] SHE[facility] Comment:Testing performed by : [address] [address] MPV 10.6 9.1 - 12.3 fL [facility] Comment:Testing performed by : [address] [address] RBC 2.77(L) 4.30 - 5.80 M/cumm [facility] Comment:Testing performed by : [address] [address] MCV 86.6 81.3 - 96.4 fL [facility] Comment:Testing performed by : [address], [address] MCH 30.0 27.1 - 33.3 pg [facility] Comment:Testing performed by : [address], [address] MCHC 34.6 32.3 - 35.7 g/dL [facility] Comment:Testing performed by : [address] [address] RDW CV 21.2(H) 11.1 - 14.9 % [facility] Comment:Testing performed by : [address], [address] RDW SD 66.2(H) 35.7 - 48.1 fL [facility] Comment:Testing performed by : [address], [address] NRBC abs 0.06(H) 0.00 - 0.01 K/cumm [facility] Comment:Testing performed by : [address], [address] Morphologic Screen Results confirmed by manual morphology review. [facility] Comment:Testing performed by : [address] [address] Blood 01/17/2025 6:04 AM CDT 01/17/2025 6:35 AM CDT us Rasta Garcia MD LAB BLOOD ORDERABLES Edited Re sult - Final [facility] [address] [facility] Department [place] [address] * (ABNORMAL) Basic metabolic panel (01/17/2025 6:04 AM CDT) Sodium 137 135 - 145 mmol/L Comment:Testing performed by : [address] [address] Potassium, pl 3.1(L) 3.3 - 4.9 mmol/L [facility] Comment:Testing performed by : [address] [address] Chloride 101 97 - 110 mmol/L [facility] Comment:Testing performed by : [address] [address] CO2 24 22 - 32 mmol/L [facility] Comment:Testing performed by : [address] [address] Anion gap 12 2 - 15 mmol/L [facility] Comment:Testing performed by : [address] [address] BUN 3(L) 6 - 25 mg/dL [facility] Comment:Testing performed by : [address] [address] Creatinine 0.50(L) 0.80 - 1.30 mg/dL [facility] Comment:Testing performed by : [address] [address] Glucose 125 70 - 199 mg/dL [facility] Comment: Interpretive Data Fasting glucose >/= 126 mg/dl is diagnostic for diabetes. Fasting is defined as no caloric intake for at least 8 hours. Fasting glucose between 100 mg/dl to 125 mg/dl is diagnostic of prediabetes. In a patient with classic symptoms of hyperglycemia or hyperglycemic crisis, a random glucose >/= 200 mg/dl is diagnostic for diabetes. In the absence of unequivocal hyperglycemia, results should be confirmed by repeat testing. The classification and Diagnosis of Diabetes Diabetes Care 202; 46: S19-S40. Current interpretive data was last revised 2022. Testing performed by: [address] [address] Calcium 8.9 8.5 - 10.3 mg/dL [facility] Comment:Testing performed by : [facility], [address] [place] [address]., [address] Blood 01/17/2025 6:04 AM CDT 01/17/2025 6:35 AM CDT us Rasta Garcia MD LAB BLOOD ORDERABLES Final Res ult Performing Organization Address City/[facility]/ZIP Co de Phone Number [facility] [address] [facility] [place] [address] * Troponin T high-sensitivity 4-hour (01/16/2025 6:37 PM CDT) Trop T hs 13 <=22 ng/L Comment: Interpretive Data For further hscTnT resources including the diagnostic algorithm and an aid in interpretation, copy and paste this link: [email or web address].testcatalog.org/show/[email or web address] Current Interpretive Data last revised 2020. Testing performed by: [address] [address] Trop T hs delta 7 ng/L [facility] SHETTY Comment:Testing performed by : [address] [address] Trop T hs interp Equivocal [facility] Comment:Testing performed by : [address] [address] Blood 01/16/2025 6:37 PM CDT 01/16/2025 6:48 PM CDT Casey Paz MD LAB BLOOD ORDERABLES Final Result Performing Organization Address City/[facility]/ZIP Co de Phone Number [facility] [address] [facility] [place] [address] * Troponin T high-sensitivity 2-hour (01/16/2025 5:09 PM CDT) Trop T hs <6 <=22 ng/L Comment: Interpretive Data For further hscTnT resources including the diagnostic algorithm and an aid in interpretation, copy and paste this link: https://nrl.testcatalog.org/show/[email or web address] Current Interpretive Data last revised 2020. Testing performed by: [address] [address] Trop T hs delta 0 ng/L [facility] SHE[facility] Comment:Testing performed by : [address] [address] Trop T hs interp Insignificant [facility] Comment:Testing performed by : [address] [address] Blood 01/16/2025 5:09 PM CDT 01/16/2025 5:15 PM CDT Casey Paz MD LAB BLOOD ORDERABLES Final Result Performing Organization Address [facility] Co de Phone Number [place] [address] [facility] [place] [address] * Post TRXN SAMY (01/16/2025 3:58 PM CDT) Yesenia, direct, post-transfusi on Negative Comment:Testing performed by : [address] [address] Blood 01/16/2025 3:58 PM CDT 01/16/2025 3:59 PM CDT Casey Paz MD LAB BLOOD BANK TEST ORDERA BLES Final Result Performing Organization Address [facility]/ZIP Co de Phone Number KENYETTA[address] [place] [address] * Post-Transfusion Reaction ABO/Rh (01/16/2025 3:58 PM CDT) ABO/Rh Post-Transfusi on Reaction A Positive Comment:Testing performed by : [address] [address] Blood 01/16/2025 3:58 PM CDT 01/16/2025 3:59 PM CDT Casey Paz MD LAB BLOOD BANK TEST ORDERA BLES Final Result Performing Organization Address City/[facility] Co de Phone Number [facility] [address] [address] * Pre TRXN SAMY (01/16/2025 3:58 PM CDT) Direct yesenia pre-transfusio n reaction Negative Comment:Testing performed by : [address] [address] Blood 01/16/2025 3:58 PM CDT 01/16/2025 3:59 PM CDT Casey Paz MD LAB BLOOD BANK TEST ORDERA BLES Final Result Performing Organization Address [facility] Co de Phone Number [address] [address] * Pre-Transfusion Reaction ABO/Rh (01/16/2025 3:58 PM CDT) Pathologist [facility] ABO/Rh Pre-Transfusio n Reaction A Positive Comment:Testing performed by : [address] [address] Blood 01/16/2025 3:58 PM CDT 01/16/2025 3:59 PM CDT Casey Paz MD LAB BLOOD BANK TEST ORDERA BLES Final Result Performing Organization Address City/[facility]/ZIP Co de Phone Number KENYETTA[address] [address] * ECG 12 lead (01/16/2025 2:47 PM CDT) Pathologist [facility] Ventricular Rate EKG/Min 79 BPM [facility] Atrial Rate [address] [facility] [place]-Interval (MSEC) [address] [facility] QRS-Interval (MSEC) 80 ms [facility] QT-Interval (MSEC) 410 ms [facility] QTc 470 ms [facility] P [place] 48 degrees [facility] R [place] 22 degrees [facility] T [place] -16 degrees [facility] Diagnosis Normal sinus rhythm Nonspecific T wave abnormality Abnormal ECG When compared with ECG of 31-DEC-2024 23:51, Nonspecific T wave abnormality now evident in Anterolateral leads Confirmed by MIRYAM GARCÍA M.D. ([id number]) on 01/16/2025 6:28:08 PM [facility] 01/16/2025 2:47 PM CDT 01/16/2025 6:28 PM CDT us Casey Paz MD ECG ORDERABLES Final Resu lt [facility] * (ABNORMAL) Differential, auto (01/16/2025 2:40 PM CDT) Neutrophil abs 5.04 1.50 - 6.50 K/cumm Comment:Testing performed by : [address] [address] Imm gran abs 0.05 0.00 - 0.10 K/cumm [facility] Comment:Testing performed by : [address] [address] Lymphocyte abs 2.46 0.80 - 3.30 K/cumm [facility] Comment:Testing performed by : [address] [address] Monocyte abs 0.91(H) 0.20 - 0.80 K/cumm [facility] Comment:Testing performed by : [address] [address] Eosinophil abs 0.41 0.00 - 0.50 K/cumm [facility] Comment:Testing performed by : [address] [address] Basophil abs 0.04 0.00 - 0.10 K/cumm [facility] Comment:Testing performed by : [address] [address] Neutrophil pct 56.6 % [facility] Comment: Interpretive Data Percent cell count reference ranges are not reported, since discordance with absolute values may lead to misinterpretation of CBC data. Current Interpretive Data was last revised on 2017. Testing performed by: [address] [address] Imm gran pct 0.6 % [facility] Comment: Interpretive Data Percent cell count reference ranges are not reported, since discordance with absolute values may lead to misinterpretation of CBC data. Current Interpretive Data was last revised on 2017. Testing performed by: [address] [address] Lymphocyte pct 27.6 % [facility] Comment: Interpretive Data Percent cell count reference ranges are not reported, since discordance with absolute values may lead to misinterpretation of CBC data. Current Interpretive Data was last revised on 2017. Testing performed by: [address] [address] Monocyte pct 10.2 % [facility] Comment: Interpretive Data Percent cell count reference ranges are not reported, since discordance with absolute values may lead to misinterpretation of CBC data. Current Interpretive Data was last revised on 2017. Testing performed by: [address] [address] [address] Eosinophil pct 4.6 % CERALEJANDRA Comment: Interpretive Data Percent cell count reference ranges are not reported, since discordance with absolute values may lead to misinterpretation of CBC data. Current Interpretive Data was last revised on 2017. Testing performed by: [address] [address] Basophil pct 0.4 % CERALEJANDRA Comment: Interpretive Data Percent cell count reference ranges are not reported, since discordance with absolute values may lead to misinterpretation of CBC data. Current Interpretive Data was last revised on 2017. Testing performed by: [address] [address] Blood 01/16/2025 2:40 PM CDT 01/16/2025 2:55 PM CDT Casey Paz MD LAB BLOOD ORDERABLES Final Result [facility] [address] [facility] [place] [address] * (ABNORMAL) CBC with auto differential (01/16/2025 2:40 PM CDT) [facility] WBC 8.91 3.80 - 9.90 K/cumm Comment:Testing performed by : [address] [address] Hgb 8.3(L) 13.0 - 17.5 g/dL [facility] Comment:Testing performed by : [address] [address] Hct 24.2(L) 38.9 - 50.3 % [facility] Comment:Testing performed by : [address] [address] Plt 316 150 - 400 K/cumm [facility] Comment:Testing performed by : [address] [address] MPV 10.1 9.1 - 12.3 fL [facility] Comment:Testing performed by : [address] [address] RBC 2.80(L) 4.30 - 5.80 M/cumm [facility] Comment:Testing performed by : [address] [address] MCV 86.4 81.3 - 96.4 fL [facility] Comment:Testing performed by : [address] [address] MCH 29.6 27.1 - 33.3 pg [facility] Comment:Testing performed by : [address] [address] MCHC 34.3 32.3 - 35.7 g/dL [facility] Comment:Testing performed by : [address] [address] RDW CV 21.2(H) 11.1 - 14.9 % [facility] Comment:Testing performed by : [address] [address] RDW SD 66.2(H) 35.7 - 48.1 fL [facility] SHETTY Comment:Testing performed by : [address] [address] NRBC abs 0.07(H) 0.00 - 0.01 K/cumm [facility] SHETTY Comment:Testing performed by : [address] [address] Morphologic Screen Results confirmed by manual morphology review. [facility] SHETTY Comment:Testing performed by : [address] [address] Blood 01/16/2025 2:40 PM CDT 01/16/2025 2:55 PM CDT Casey Paz MD LAB BLOOD ORDERABLES Final Result Performing Organization Address City/[facility] Co de Phone Number [facility] [address] [place] [address] * Troponin T high-sensitivity series (baseline, 2hr, 4hr, 6hr) (01/16/2025 2:40 PM CDT) Trop T hs <6 <=22 ng/L Comment: Interpretive Data For further hscTnT resources including the diagnostic algorithm and an aid in interpretation, copy and paste this link: [email or web address] Current Interpretive Data last revised 2020. Testing performed by: [address] [address] Blood 01/16/2025 2:40 PM CDT 01/16/2025 2:55 PM CDT Casey Paz MD LAB BLOOD ORDERABLES Final Result Performing Organization Address City/[facility]/ZIP Co de Phone Number [facility] [address] [place] [address] * XR Chest 1 View (01/16/2025 2:20 PM CDT) Anatomical Region Laterality Modality Body, Chest N/A Computed Radiogr aphy 01/16/2025 3:07 PM CDT Narrative 01/16/2025 3:09 PM CDT EXAM DESCRIPTION: XR CHEST 1 VIEW REASON FOR STUDY: chest pain Chest pain TECHNIQUE: Frontal radiographic view(s) of the chest. COMPARISON: Chest radiograph dated 01/11/2025. FINDINGS: LUNGS: No focal opacity, pleural effusion, or pneumothorax. HEART/MEDIASTINUM: Cardiac silhouette normal in size. Mediastinal and hilar contours appear normal. LINES/TUBES: None. BONES: No acute osseous abnormality. IMPRESSION: No acute cardiopulmonary abnormality. THIS IS AN ELECTRONICALLY VERIFIED FINAL REPORT 01/16/2025 3:09 PM - Electronically signed by Bradley Rushing M.D. MF: CALDERON Report ID: [id number] Reading Location: [id number] Procedure Note Bradley Rushing, DO - 01/16/2025 EXAM DESCRIPTION: XR CHEST 1 VIEW REASON FOR STUDY: chest pain Chest pain TECHNIQUE: Frontal radiographic view(s) of the chest. COMPARISON: Chest radiograph dated 01/11/2025. FINDINGS: LUNGS: No focal opacity, pleural effusion, or pneumothorax. HEART/MEDIASTINUM: Cardiac silhouette normal in size. Mediastinal andhilar contours appear normal. LINES/TUBES: None. BONES: No acute osseous abnormality. IMPRESSION: No acute cardiopulmonary abnormality. THIS IS AN ELECTRONICALLY VERIFIED FINAL REPORT 01/16/2025 3:09 PM - Electronically signed by Bradley Rushing M.D. MF: CALDERON Report ID: [id number] Reading Location: [id number] us Casey Paz MD IMG XR PROCEDURES Final Re sult * Transfuse RBC (01/16/2025 2:09 PM CDT) Blood us Casey Paz MD BLOOD TRANSFUSION ORDERABL ES Final Result KENYETTAALEJANDRA [address] Department [place] [address] * Transfuse RBC: 1 Units (01/16/2025 2:09 PM CDT) Blood Casey Paz MD BLOOD TRANSFUSION ORDERABL ES Final Result * Prepare RBC: 1 Units (01/16/2025 11:30 AM CDT) Units requested 1 Comment:Testing performed by : [facility], [address] [place] [address]., [address] Units requested Ready [facility] Comment:Testing performed by : [facility], [address] [place] [address]., [address] Unit Number [id number] Product code [id number] [facility] Blood Expiration Date [id number] [facility] Product Blood Type (for scanning) 6200 [facility] Product Blood Type APOS [facility] Dispense Status DISPENSED [facility] Blood 01/16/2025 11:3 0 AM CDT 01/16/2025 11:29 AM CDT Casey Paz MD BLOOD BANK PRODUCT ORDERAB LES Final Result Performing Organization Address [facility] de Phone Number [facility] [address] [place] [address] * Crossmatch (01/16/2025 10:42 AM CDT) Crossmatch Compatible [facility] MARYVALEALEJANDRA Unit number for crossmatch [id number] [facility] Crossmatch Compatible [facility] Unit number for crossmatch [id number] [facility] Blood 01/16/2025 10:4 2 AM CDT 01/16/2025 10:47 AM CDT Casey Paz MD LAB BLOOD BANK TEST ORDERA BLES Final Result Performing Organization Address City/[facility]/ZIP Co de Phone Number [address] [address] * Antibody screen (01/16/2025 10:42 AM CDT) Pathologist [facility] Yesenia, indirect, Gel Interpretation Negative ABSC Comment:Testing performed by : [address] [address] Blood 01/16/2025 10:4 2 AM CDT 01/16/2025 10:47 AM CDT Narrative [facility] 01/16/2025 11:25 AM CDT Has the patient had Daratumumab or Isatuximab in the past 6 months?->Unknown Casey Paz MD LAB BLOOD BANK TEST ORDERA BLES Final Result Performing Organization Address City/[facility]/ZIP Co de Phone Number [address] [address] * ABO/Rh (01/16/2025 10:42 AM CDT) [facility] ABO/Rh A Positive Comment:Testing performed by : [facility], [address] [place] [address]., [address] Blood 01/16/2025 10:4 2 AM CDT 01/16/2025 10:47 AM CDT Narrative [facility] 01/16/2025 11:25 AM CDT Has the patient had Daratumumab or Isatuximab in the past 6 months?->Unknown Casey Paz MD LAB BLOOD BANK TEST ORDERA BLES Final Result [address] [address] * eGFR (01/16/2025 2:59 AM CDT) [facility] eGFR >90 >=60 mL/min/1. 73 m2 Comment: Interpretive Data Reference Interval Normal >/= 90 mL/min/1.73m2 Mildly decreased* 60 - 89 mL/min/1.73m2 Mildly to moderately decreased 45 - 59 mL/min/1.73m2 Moderately to severely decreased 30 - 44 mL/min/1.73m2 Severely decreased 15 - 29 mL/min/1.73m2 Kidney Failure < 15 mL/min/1.73m2 *Relative to young adult level Estimated glomerular filtration rate is determined by the 2020 CKD-EPI equation recommended by the National Kidney Foundation (A Unifying Approach to GFR Estimation: Recommendations of the NKF-ASK Task Force on Reassessing the Inclusion of Race in Diagnosing Kidney Disease, JASN 2020). The CKD-EPI equation should not be used for patients with unstable renal function and has not been validated in children and those over 70. Current interpretive data was last reviewed 2021. Testing performed by: [address] [address] Blood 01/16/2025 2:59 AM CDT 01/16/2025 3:12 AM CDT us Rasta Garcia MD LAB BLOOD ORDERABLES Final Res ult [place] [address] [facility] [place] [address] * (ABNORMAL) Differential, auto (01/16/2025 2:59 AM CDT) Neutrophil abs 4.31 1.50 - 6.50 K/cumm Comment:Testing performed by : [address] [address] Imm gran abs 0.03 0.00 - 0.10 K/cumm [facility] Comment:Testing performed by : [address] [address] Lymphocyte abs 3.04 0.80 - 3.30 K/cumm [facility] Comment:Testing performed by : [address] [address] Monocyte abs 0.81(H) 0.20 - 0.80 K/cumm [facility] Comment:Testing performed by : [address] [address] Eosinophil abs 0.38 0.00 - 0.50 K/cumm [facility] MARYVALEALEJANDRA Comment:Testing performed by : [address] [address] Basophil abs 0.04 0.00 - 0.10 K/cumm [facility] Comment:Testing performed by : [address] [address] Neutrophil pct 50.1 % [facility] Comment: Interpretive Data Percent cell count reference ranges are not reported, since discordance with absolute values may lead to misinterpretation of CBC data. Current Interpretive Data was last revised on 2017. Testing performed by: [address] [address] Imm gran pct 0.3 % [facility] Comment: Interpretive Data Percent cell count reference ranges are not reported, since discordance with absolute values may lead to misinterpretation of CBC data. Current Interpretive Data was last revised on 2017. Testing performed by: [address] [address] Lymphocyte pct 35.3 % [facility] Comment: Interpretive Data Percent cell count reference ranges are not reported, since discordance with absolute values may lead to misinterpretation of CBC data. Current Interpretive Data was last revised on 2017. Testing performed by: [address] [address] Monocyte pct 9.4 % [facility] Comment: Interpretive Data Percent cell count reference ranges are not reported, since discordance with absolute values may lead to misinterpretation of CBC data. Current Interpretive Data was last revised on 2017. Testing performed by: [address] [address] Eosinophil pct 4.4 % [facility] Comment: Interpretive Data Percent cell count reference ranges are not reported, since discordance with absolute values may lead to misinterpretation of CBC data. Current Interpretive Data was last revised on 2017. Testing performed by: [address] [address] Basophil pct 0.5 % [facility] Comment: Interpretive Data Percent cell count reference ranges are not reported, since discordance with absolute values may lead to misinterpretation of CBC data. Current Interpretive Data was last revised on 2017. Testing performed by: [address] [address] Blood 01/16/2025 2:59 AM CDT 01/16/2025 3:13 AM CDT us Rasta Garcia MD LAB BLOOD ORDERABLES Final Res ult Performing Organization Address [facility] de Phone Number [address] [place] [address] * (ABNORMAL) Reticulocyte Count (01/16/2025 2:59 AM CDT) Pathologist [facility] Retics, absolute 431(H) 20 - 87 K/cumm Comment:Testing performed by : [address] [address] Retics 18.7(H) 0.4 - 2.9 % [facility] Comment:Testing performed by : [address] [address] Reticulocyte Hgb 28.0(L) 30.5 - 38.0 pg [facility] Comment:Testing performed by : [address] [address] Blood 01/16/2025 2:59 AM CDT 01/16/2025 3:13 AM CDT us Rasta Garcia MD LAB BLOOD ORDERABLES Final Res ult Performing Organization Address [facility] de Phone Number [address] [address] * (ABNORMAL) CBC with auto differential (01/16/2025 2:59 AM CDT) Pathologist [facility] WBC 8.61 3.80 - 9.90 K/cumm Comment:Testing performed by : [address] [address] Hgb 7.0(L) 13.0 - 17.5 g/dL [facility] Comment:Testing performed by : [address] [address] Hct 19.8(L) 38.9 - 50.3 % [facility] Comment:Testing performed by : [address] [address] Plt 276 150 - 400 K/cumm [facility] Comment:Testing performed by : [address] [address] MPV 10.1 9.1 - 12.3 fL [facility] Comment:Testing performed by : [address], [address] RBC 2.31(L) 4.30 - 5.80 M/cumm [facility] Comment:Testing performed by : [address], [address] MCV 85.7 81.3 - 96.4 fL [facility] Comment:Testing performed by : [address], [address] MCH 30.3 27.1 - 33.3 pg [facility] Comment:Testing performed by : [address] [address] MCHC 35.4 32.3 - 35.7 g/dL [facility] Comment:Testing performed by : [address] [address] RDW CV 21.6(H) 11.1 - 14.9 % [facility] Comment:Testing performed by : [address], [address] RDW SD 65.4(H) 35.7 - 48.1 fL [facility] Comment:Testing performed by : [address] [address] NRBC abs 0.07(H) 0.00 - 0.01 K/cumm [facility] Comment:Testing performed by : [address] [address] Morphologic Screen Results confirmed by manual morphology review. [facility] Comment:Testing performed by : [address], [address] Blood 01/16/2025 2:59 AM CDT 01/16/2025 3:13 AM CDT us Rasta Garcia MD LAB BLOOD ORDERABLES Final Res ult [facility] SHETTY [address] [facility] Department [place] [address] * (ABNORMAL) Basic metabolic panel (01/16/2025 2:59 AM CDT) Sodium 138 135 - 145 mmol/L Comment:Testing performed by : [address] [address] Potassium, pl 3.2(L) 3.3 - 4.9 mmol/L [facility] Comment:Testing performed by : [address] [address] Chloride 103 97 - 110 mmol/L [facility] Comment:Testing performed by : [address] [address] CO2 25 22 - 32 mmol/L [facility] Comment:Testing performed by : [address] [address] Anion gap 10 2 - 15 mmol/L [facility] Comment:Testing performed by : [address] [address] BUN 3(L) 6 - 25 mg/dL [facility] Comment:Testing performed by : [address] [address] Creatinine 0.49(L) 0.80 - 1.30 mg/dL [facility] Comment:Testing performed by : [address] [address] Glucose 154 70 - 199 mg/dL [facility] Comment: Interpretive Data Fasting glucose >/= 126 mg/dl is diagnostic for diabetes. Fasting is defined as no caloric intake for at least 8 hours. Fasting glucose between 100 mg/dl to 125 mg/dl is diagnostic of prediabetes. In a patient with classic symptoms of hyperglycemia or hyperglycemic crisis, a random glucose >/= 200 mg/dl is diagnostic for diabetes. In the absence of unequivocal hyperglycemia, results should be confirmed by repeat testing. The classification and Diagnosis of Diabetes Diabetes Care 202; 46: S19-S40. Current interpretive data was last revised 2022. Testing performed by: [address] [address] Calcium 8.7 8.5 - 10.3 mg/dL [facility] Comment:Testing performed by : [address] [address] Blood 01/16/2025 2:59 AM CDT 01/16/2025 3:12 AM CDT us Rasta Garcia MD LAB BLOOD ORDERABLES Final Res ult [facility] [address] [facility] Department [place] [address] * (ABNORMAL) Blood smear review (01/15/2025 5:38 AM CDT) RBC morphology Present(A) Comment:Testing performed by : [address] [address] Hypochromasia 3-7/HPF(A) [facility] Comment:Testing performed by : [address] [address] Anisocytosis Moderate(A) [facility] Comment:Testing performed by : [address] [address] Schistocytes 1-2/HPF(A) [facility] Comment:Testing performed by : [address] [address] Sickle cells 1-2/HPF(A) [facility] Comment:Testing performed by : [address] [address] Elliptocytes 8-15/HPF(A) [facility] Comment:Testing performed by : [address] [address] Target cells 3-7/HPF(A) [facility] Comment:Testing performed by : [address] [address] Acanthocytes 3-7/HPF(A) [facility] Comment:Testing performed by : [facility], [address] [place] [address]., [address] Platelet estimate Adequate [facility] Comment:Testing performed by : [address] [address] Blood 01/15/2025 5:38 AM CDT 01/15/2025 6:12 AM CDT us Rasta Garcia MD LAB BLOOD ORDERABLES Final Res ult Performing Organization Address [facility] Co de Phone Number [facility] [place] [address] * eGFR (01/15/2025 5:38 AM CDT) eGFR >90 >=60 mL/min/1. 73 m2 Comment: Interpretive Data Reference Interval Normal >/= 90 mL/min/1.73m2 Mildly decreased* 60 - 89 mL/min/1.73m2 Mildly to moderately decreased 45 - 59 mL/min/1.73m2 Moderately to severely decreased 30 - 44 mL/min/1.73m2 Severely decreased 15 - 29 mL/min/1.73m2 Kidney Failure < 15 mL/min/1.73m2 *Relative to young adult level Estimated glomerular filtration rate is determined by the 2020 CKD-EPI equation recommended by the National Kidney Foundation (A Unifying Approach to GFR Estimation: Recommendations of the NKF-ASK Task Force on Reassessing the Inclusion of Race in Diagnosing Kidney Disease, JASN 2020). The CKD-EPI equation should not be used for patients with unstable renal function and has not been validated in children and those over 70. Current interpretive data was last reviewed 2021. Testing performed by: [facility], [address] [place] [address]., [address] Blood 01/15/2025 5:38 AM CDT 01/15/2025 6:12 AM CDT us Rasta Garcia MD LAB BLOOD ORDERABLES Final Res ult Performing Organization Address City/[facility]/ZIP Co de Phone Number [facility] [place] [address] * (ABNORMAL) Differential, auto (01/15/2025 5:38 AM CDT) Neutrophil abs 3.92 1.50 - 6.50 K/cumm Comment:Testing performed by : [address] [address] Imm gran abs 0.07 0.00 - 0.10 K/cumm [facility] Comment:Testing performed by : [address] [address] Lymphocyte abs 3.68(H) 0.80 - 3.30 K/cumm [facility] Comment:Testing performed by : [address] [address] Monocyte abs 0.80 0.20 - 0.80 K/cumm [facility] Comment:Testing performed by : [address] [address] Eosinophil abs 0.40 0.00 - 0.50 K/cumm [facility] Comment:Testing performed by : [address] [address] Basophil abs 0.04 0.00 - 0.10 K/cumm [facility] Comment:Testing performed by : [address] [address] Neutrophil pct 44.0 % [facility] Comment: Interpretive Data Percent cell count reference ranges are not reported, since discordance with absolute values may lead to misinterpretation of CBC data. Current Interpretive Data was last revised on 2017. Testing performed by: [address] [address] Imm gran pct 0.8 % [facility] Comment: Interpretive Data Percent cell count reference ranges are not reported, since discordance with absolute values may lead to misinterpretation of CBC data. Current Interpretive Data was last revised on 2017. Testing performed by: [address] [address] Lymphocyte pct 41.3 % [facility] Comment: Interpretive Data Percent cell count reference ranges are not reported, since discordance with absolute values may lead to misinterpretation of CBC data. Current Interpretive Data was last revised on 2017. Testing performed by: [address] [address] Monocyte pct 9.0 % [facility] Comment: Interpretive Data Percent cell count reference ranges are not reported, since discordance with absolute values may lead to misinterpretation of CBC data. Current Interpretive Data was last revised on 2017. Testing performed by: [address] [address] Eosinophil pct 4.5 % [facility] Comment: Interpretive Data Percent cell count reference ranges are not reported, since discordance with absolute values may lead to misinterpretation of CBC data. Current Interpretive Data was last revised on 2017. Testing performed by: [address] [address] Basophil pct 0.4 % [facility] Comment: Interpretive Data Percent cell count reference ranges are not reported, since discordance with absolute values may lead to misinterpretation of CBC data. Current Interpretive Data was last revised on 2017. Testing performed by: [address] [address] Blood 01/15/2025 5:38 AM CDT 01/15/2025 6:12 AM CDT us Rasta Garcia MD LAB BLOOD ORDERABLES Final Res ult [facility] [address] [facility] [place] [address] * (ABNORMAL) Reticulocyte Count (01/15/2025 5:38 AM CDT) Retics, absolute 497(H) 20 - 87 K/cumm Comment:Testing performed by : [address] [address] Retics 20.2(H) 0.4 - 2.9 % [facility] Comment:Testing performed by : [address] [address] Reticulocyte Hgb 28.3(L) 30.5 - 38.0 pg [facility] Comment:Testing performed by : [address] [address] Blood 01/15/2025 5:38 AM CDT 01/15/2025 6:12 AM CDT us Rasta Garcia MD LAB BLOOD ORDERABLES Final Res ult [facility] [address] [facility] [place] [address] * (ABNORMAL) CBC with auto differential (01/15/2025 5:38 AM CDT) WBC 8.91 3.80 - 9.90 K/cumm Comment:Testing performed by : [address] [address] Hgb 7.3(L) 13.0 - 17.5 g/dL [facility] Comment:Testing performed by : [address] [address] Hct 21.4(L) 38.9 - 50.3 % [facility] Comment:Testing performed by : [address] [address] Plt 316 150 - 400 K/cumm [facility] Comment:Testing performed by : [address] [address] MPV 10.1 9.1 - 12.3 fL [facility] Comment:Testing performed by : [address] [address] RBC 2.46(L) 4.30 - 5.80 M/cumm [facility] Comment:Testing performed by : [address] [address] MCV 87.0 81.3 - 96.4 fL [facility] Comment:Testing performed by : [address] [address] MCH 29.7 27.1 - 33.3 pg [facility] Comment:Testing performed by : [address] [address] MCHC 34.1 32.3 - 35.7 g/dL [facility] SHETTY Comment:Testing performed by : [facility], [address] [place] [address]., [address] RDW CV 21.6(H) 11.1 - 14.9 % [facility] SHETTY Comment:Testing performed by : [address] [address] RDW SD 67.9(H) 35.7 - 48.1 fL [facility] SHETTY Comment:Testing performed by : [address] [address] NRBC abs 0.13(H) 0.00 - 0.01 K/cumm [facility] Comment:Testing performed by : [address] [address] Blood 01/15/2025 5:38 AM CDT 01/15/2025 6:12 AM CDT us Rasta Garcia MD LAB BLOOD ORDERABLES Final Res ult [facility] [place] [address] * (ABNORMAL) Basic metabolic panel (01/15/2025 5:38 AM CDT) Sodium 136 135 - 145 mmol/L Comment:Testing performed by : [address] [address] Potassium, pl 3.2(L) 3.3 - 4.9 mmol/L [facility] Comment:Testing performed by : [address] [address] Chloride 102 97 - 110 mmol/L [facility] Comment:Testing performed by : [address] [address] CO2 24 22 - 32 mmol/L [facility] Comment:Testing performed by : [address] [address] Anion gap 10 2 - 15 mmol/L [facility] Comment:Testing performed by : [address] [address] BUN 3(L) 6 - 25 mg/dL [facility] SHETTY Comment:Testing performed by : [address] [address] Creatinine 0.44(L) 0.80 - 1.30 mg/dL [facility] Comment:Testing performed by : [address] [address] Glucose 116 70 - 199 mg/dL [facility] Comment: Interpretive Data Fasting glucose >/= 126 mg/dl is diagnostic for diabetes. Fasting is defined as no caloric intake for at least 8 hours. Fasting glucose between 100 mg/dl to 125 mg/dl is diagnostic of prediabetes. In a patient with classic symptoms of hyperglycemia or hyperglycemic crisis, a random glucose >/= 200 mg/dl is diagnostic for diabetes. In the absence of unequivocal hyperglycemia, results should be confirmed by repeat testing. The classification and Diagnosis of Diabetes Diabetes Care 202; 46: S19-S40. Current interpretive data was last revised 2022. Testing performed by: [address] [address] Calcium 9.0 8.5 - 10.3 mg/dL [facility] Comment:Testing performed by : [address] [address] Blood 01/15/2025 5:38 AM CDT 01/15/2025 6:12 AM CDT us Rasta Garcia MD LAB BLOOD ORDERABLES Final Res ult [facility] [address] [facility] Department of Laboratories [place], [place] [id number] * eGFR (01/14/2025 6:18 AM CDT) eGFR >90 >=60 mL/min/1. 73 m2 Comment: Interpretive Data Reference Interval Normal >/= 90 mL/min/1.73m2 Mildly decreased* 60 - 89 mL/min/1.73m2 Mildly to moderately decreased 45 - 59 mL/min/1.73m2 Moderately to severely decreased 30 - 44 mL/min/1.73m2 Severely decreased 15 - 29 mL/min/1.73m2 Kidney Failure < 15 mL/min/1.73m2 *Relative to young adult level Estimated glomerular filtration rate is determined by the 2020 CKD-EPI equation recommended by the National Kid[employer] (A Unifying Approach to GFR Estimation: Recommendations of the NKF-ASK Task Force on Reassessing the Inclusion of Race in Diagnosing Kidney Disease, JASN 2020). The CKD-EPI equation should not be used for patients with unstable renal function and has not been validated in children and those over 70. Current interpretive data was last reviewed 2021. Testing performed by: [address] [address] Blood 01/14/2025 6:18 AM CDT 01/14/2025 6:28 AM CDT us Rasta Garcia MD LAB BLOOD ORDERABLES Final Res ult [facility] [place] [address] * Differential, auto (01/14/2025 6:18 AM CDT) Neutrophil abs 4.75 1.50 - 6.50 K/cumm Comment:Testing performed by : [address] [address] Imm gran abs 0.04 0.00 - 0.10 K/cumm [facility] Comment:Testing performed by : [address] [address] Lymphocyte abs 3.30 0.80 - 3.30 K/cumm [facility] Comment:Testing performed by : [address] [address] Monocyte abs 0.76 0.20 - 0.80 K/cumm [facility] Comment:Testing performed by : [address] [address] Eosinophil abs 0.14 0.00 - 0.50 K/cumm [facility] Comment:Testing performed by : [address] [address] Basophil abs 0.04 0.00 - 0.10 K/cumm [facility] Comment:Testing performed by : [address] [address] Neutrophil pct 52.7 % [facility] Comment: Interpretive Data Percent cell count reference ranges are not reported, since discordance with absolute values may lead to misinterpretation of CBC data. Current Interpretive Data was last revised on 2017. Testing performed by: [address] [address] Imm gran pct 0.4 % [facility] Comment: Interpretive Data Percent cell count reference ranges are not reported, since discordance with absolute values may lead to misinterpretation of CBC data. Current Interpretive Data was last revised on 2017. Testing performed by: [address] [address] Lymphocyte pct 36.5 % [facility] Comment: Interpretive Data Percent cell count reference ranges are not reported, since discordance with absolute values may lead to misinterpretation of CBC data. Current Interpretive Data was last revised on 2017. Testing performed by: [address] [address] Monocyte pct 8.4 % [facility] Comment: Interpretive Data Percent cell count reference ranges are not reported, since discordance with absolute values may lead to misinterpretation of CBC data. Current Interpretive Data was last revised on 2017. Testing performed by: [address] [address] Eosinophil pct 1.6 % [facility] Comment: Interpretive Data Percent cell count reference ranges are not reported, since discordance with absolute values may lead to misinterpretation of CBC data. Current Interpretive Data was last revised on 2017. Testing performed by: [address] [address] Basophil pct 0.4 % [facility] Comment: Interpretive Data Percent cell count reference ranges are not reported, since discordance with absolute values may lead to misinterpretation of CBC data. Current Interpretive Data was last revised on 2017. Testing performed by: [address] [address] Blood 01/14/2025 6:18 AM CDT 01/14/2025 6:28 AM CDT us Rasta Gacria MD LAB BLOOD ORDERABLES Final Res ult Performing Organization Address [facility] Co de Phone Number [facility] [place] [address] * (ABNORMAL) Reticulocyte Count (01/14/2025 6:18 AM CDT) Retics, absolute 537(H) 20 - 87 K/cumm Comment:Testing performed by : [address] [address] Retics 21.5(H) 0.4 - 2.9 % [facility] Comment:Testing performed by : [address] [address] Reticulocyte Hgb 28.4(L) 30.5 - 38.0 pg [facility] Comment:Testing performed by : [address] [address] Blood 01/14/2025 6:18 AM CDT 01/14/2025 6:28 AM CDT us Rasta Garcia MD LAB BLOOD ORDERABLES Final Res ult Performing Organization Address [facility] de Phone Number [facility] [address] [place] [address] * (ABNORMAL) CBC with auto differential (01/14/2025 6:18 AM CDT) WBC 9.03 3.80 - 9.90 K/cumm Comment:Testing performed by : [address] [address] Hgb 7.5(L) 13.0 - 17.5 g/dL [facility] Comment:Testing performed by : [address] [address] Hct 21.8(L) 38.9 - 50.3 % [facility] Comment:Testing performed by : [address] [address] Plt 287 150 - 400 K/cumm [facility] Comment:Testing performed by : [address], [address] MPV 10.1 9.1 - 12.3 fL [facility] Comment:Testing performed by : [address] [address] RBC 2.47(L) 4.30 - 5.80 M/cumm [facility] Comment:Testing performed by : [address], [address] MCV 88.3 81.3 - 96.4 fL [facility] Comment:Testing performed by : [address], [address] MCH 30.4 27.1 - 33.3 pg [facility] Comment:Testing performed by : [address], [address] MCHC 34.4 32.3 - 35.7 g/dL [facility] Comment:Testing performed by : [address], [address] RDW CV 22.0(H) 11.1 - 14.9 % [facility] Comment:Testing performed by : [address], [address] RDW SD 69.9(H) 35.7 - 48.1 fL [facility] Comment:Testing performed by : [address], [address] NRBC abs 0.18(H) 0.00 - 0.01 K/cumm [facility] Comment:Testing performed by : [address], [address] Morphologic Screen Results confirmed by manual morphology review. [facility] Comment:Testing performed by : [address], [address] Blood 01/14/2025 6:18 AM CDT 01/14/2025 6:28 AM CDT us Rasta Garcia MD LAB BLOOD ORDERABLES Edited Re cindi - Final [facility] [address] [facility] Department [place] [address] * (ABNORMAL) Basic metabolic panel (01/14/2025 6:18 AM CDT) Sodium 137 135 - 145 mmol/L Comment:Testing performed by : [address] [address] Potassium, pl 3.5 3.3 - 4.9 mmol/L [facility] Comment:Testing performed by : [address] [address] Chloride 103 97 - 110 mmol/L [facility] Comment:Testing performed by : [address] [address] CO2 24 22 - 32 mmol/L [facility] Comment:Testing performed by : [address] [address] Anion gap 10 2 - 15 mmol/L [facility] Comment:Testing performed by : [address] [address] BUN 2(L) 6 - 25 mg/dL [facility] Comment:Testing performed by : [address] [address] Creatinine 0.45(L) 0.80 - 1.30 mg/dL [facility] Comment:Testing performed by : [address] [address] Glucose 141 70 - 199 mg/dL [facility] Comment: Interpretive Data Fasting glucose >/= 126 mg/dl is diagnostic for diabetes. Fasting is defined as no caloric intake for at least 8 hours. Fasting glucose between 100 mg/dl to 125 mg/dl is diagnostic of prediabetes. In a patient with classic symptoms of hyperglycemia or hyperglycemic crisis, a random glucose >/= 200 mg/dl is diagnostic for diabetes. In the absence of unequivocal hyperglycemia, results should be confirmed by repeat testing. The classification and Diagnosis of Diabetes Diabetes Care 202; 46: S19-S40. Current interpretive data was last revised 2022. Testing performed by: [address] [address] Calcium 8.8 8.5 - 10.3 mg/dL [facility] Comment:Testing performed by : [facility], [address] [place] [address], [place]., [address] Blood 01/14/2025 6:18 AM CDT 01/14/2025 6:28 AM CDT us Rasta Garcia MD LAB BLOOD ORDERABLES Final Res ult [facility] [address] [facility] [place] [address] * XR Chest PA Lateral 2 Views (01/11/2025 1:25 PM CDT) Anatomical Region Laterality Modality Body, Chest N/A Computed Radiogr aphy 01/11/2025 2:06 PM CDT Narrative 01/11/2025 2:07 PM CDT EXAM DESCRIPTION: XR CHEST PA LATERAL 2 VIEWS REASON FOR STUDY: cough,fever Cough and fever yesterday TECHNIQUE: Frontal and lateral radiographic view(s) of the chest. COMPARISON: Multiple previous chest radiographs with the most recent dated 01/10/2025. Chest CT dated 12/23/2024. FINDINGS: Multifocal bilateral opacities as seen on the previous chest radiograph dated 01/10/2025 and could reflect pulmonary edema and/or multifocal pneumonia. No significant pleural effusion. No definite pneumothorax. Cardiomediastinal silhouette projects enlarged. Osseous stigmata of sickle cell disease is again seen. IMPRESSION: No significant change in appearance of the chest when compared to the previous chest radiograph dated 01/10/2025. THIS IS AN ELECTRONICALLY VERIFIED FINAL REPORT 01/11/2025 2:07 PM - Electronically signed by Gee Laboy D.O. AP: AP Report ID: [id number] Reading Location: [place] [address] Procedure Note Gee Laboy DO - 01/11/2025 EXAM DESCRIPTION: XR CHEST PA LATERAL 2 VIEWS REASON FOR STUDY: cough,fever Cough and fever yesterday TECHNIQUE: Frontal and lateral radiographic view(s) of the chest. COMPARISON: Multiple previous chest radiographs with the most recent dated 01/10/2025. Chest CT dated 12/23/2024. FINDINGS: Multifocal bilateral opacities as seen on the previous chest radiograph dated 01/10/2025 and could reflect pulmonary edema and/or multifocal pneumonia. No significant pleural effusion. No definite pneumothorax. Cardiomediastinal silhouette projects enlarged. Osseous stigmata of sickle cell disease is again seen. IMPRESSION: No significant change in appearance of the chest when comparedto the previous chest radiograph dated 01/10/2025. THIS IS AN ELECTRONICALLY VERIFIED FINAL REPORT 01/11/2025 2:07 PM - Electronically signed by Gee Laboy D.O. AP: AP Report ID: [id number] Reading Location: [place] [address] Casey Paz MD IMG XR PROCEDURES Final Re sult * (ABNORMAL) Manual Differential (01/11/2025 1:12 PM CDT) Differential Manual Comment:Testing performed by : [address] [address] Cells Counted 100 [facility] Comment:Testing performed by : [address] [address] Neutrophil abs 4.90 1.50 - 6.50 K/cumm [facility] Comment:Testing performed by : [address] [address] Lymphocyte abs 4.39(H) 0.80 - 3.30 K/cumm [facility] Comment:Testing performed by : [address] [address] Monocyte abs 0.51 0.20 - 0.80 K/cumm [facility] Comment:Testing performed by : [address] [address] Eosinophil abs 0.41 0.00 - 0.50 K/cumm [facility] Comment:Testing performed by : [address] [address] Neutrophil pct 48.0 % [facility] Comment: Interpretive Data Percent cell count reference ranges are not reported, since discordance with absolute values may lead to misinterpretation of CBC data. Current Interpretive Data was last revised on 2017. Testing performed by: [address] [address] Lymphocyte pct 43.0 % [facility] Comment: Interpretive Data Percent cell count reference ranges are not reported, since discordance with absolute values may lead to misinterpretation of CBC data. Current Interpretive Data was last revised on 2017. Testing performed by: [address] [address] Monocyte pct 5.0 % [facility] Comment: Interpretive Data Percent cell count reference ranges are not reported, since discordance with absolute values may lead to misinterpretation of CBC data. Current Interpretive Data was last revised on 2017. Testing performed by: [address] [address] Eosinophil pct 4.0 % [facility] Comment: Interpretive Data Percent cell count reference ranges are not reported, since discordance with absolute values may lead to misinterpretation of CBC data. Current Interpretive Data was last revised on 2017. Testing performed by: [address], [place]., [address] RBC morphology Present(A) [facility] Comment:Testing performed by : [address] [address] Polychromasia 3-7/HPF(A) [facility] Comment:Testing performed by : [address] [address] Anisocytosis Marked(A) [facility] Comment:Testing performed by : [address] [address] Sickle cells 1-2/HPF(A) [facility] Comment:Testing performed by : [address] [address] Elliptocytes 8-15/HPF(A) [facility] Comment:Testing performed by : [address] [address] Teardrop cells 3-7/HPF(A) [facility] Comment:Testing performed by : [address] [address] Platelet morphology Normal [facility] Comment:Testing performed by : [facility], [address] [place] [address]., [address] Platelet estimate Adequate [facility] Comment:Testing performed by : [address] [address] Blood 01/11/2025 1:12 PM CDT 01/11/2025 1:15 PM CDT us Rasta Garcia MD LAB BLOOD ORDERABLES Final Res ult [facility] [address] [facility] Department [place] [address] * eGFR (01/11/2025 1:12 PM CDT) eGFR >90 >=60 mL/min/1. 73 m2 Comment: Interpretive Data Reference Interval Normal >/= 90 mL/min/1.73m2 Mildly decreased* 60 - 89 mL/min/1.73m2 Mildly to moderately decreased 45 - 59 mL/min/1.73m2 Moderately to severely decreased 30 - 44 mL/min/1.73m2 Severely decreased 15 - 29 mL/min/1.73m2 Kidney Failure < 15 mL/min/1.73m2 *Relative to young adult level Estimated glomerular filtration rate is determined by the 2020 CKD-EPI equation recommended by the National Kidney Foundation (A Unifying Approach to GFR Estimation: Recommendations of the NKF-ASK Task Force on Reassessing the Inclusion of Race in Diagnosing Kidney Disease, JASN 2020). The CKD-EPI equation should not be used for patients with unstable renal function and has not been validated in children and those over 70. Current interpretive data was last reviewed 2021. Testing performed by: [address] [address] Blood 01/11/2025 1:12 PM CDT 01/11/2025 1:15 PM CDT us Rasta Garcia MD LAB BLOOD ORDERABLES Final Res ult Performing Organization Address [facility] Co de Phone Number [facility] [place] [address] * (ABNORMAL) Reticulocyte Count (01/11/2025 1:12 PM CDT) Pathologist [facility] Retics, absolute 585(H) 20 - 87 K/cumm Comment:Testing performed by : [address] [address] Retics 20.8(H) 0.4 - 2.9 % [facility] Comment:Testing performed by : [address] [address] Reticulocyte Hgb 30.1(L) 30.5 - 38.0 pg [facility] Comment:Testing performed by : [address] [address] Blood 01/11/2025 1:12 PM CDT 01/11/2025 1:15 PM CDT us Rasta Garcia MD LAB BLOOD ORDERABLES Final Res ult Performing Organization Address [facility] de Phone Number [facility] [place] [address] * (ABNORMAL) CBC with auto differential (01/11/2025 1:12 PM CDT) [facility] WBC 10.21(H) 3.80 - 9.90 K/cumm Comment:Testing performed by : [address] [address] Hgb 8.3(L) 13.0 - 17.5 g/dL [facility] Comment:Testing performed by : [address] [address] Hct 24.3(L) 38.9 - 50.3 % [facility] Comment:Testing performed by : [address] [address] Plt 379 150 - 400 K/cumm [facility] Comment:Testing performed by : [address] [address] MPV 9.9 9.1 - 12.3 fL [facility] Comment:Testing performed by : [address] [address] RBC 2.82(L) 4.30 - 5.80 M/cumm [facility] Comment:Testing performed by : [address] [address] MCV 86.2 81.3 - 96.4 fL [facility] Comment:Testing performed by : [address] [address] MCH 29.4 27.1 - 33.3 pg [facility] Comment:Testing performed by : [address] [address] MCHC 34.2 32.3 - 35.7 g/dL [facility] Comment:Testing performed by : [address] [address] RDW CV 23.4(H) 11.1 - 14.9 % [facility] Comment:Testing performed by : [address] [address] RDW SD 70.7(H) 35.7 - 48.1 fL [facility] Comment:Testing performed by : [address] [address] NRBC abs 0.23(H) 0.00 - 0.01 K/cumm [facility] Comment:Testing performed by : [address] [address] Blood 01/11/2025 1:12 PM CDT 01/11/2025 1:15 PM CDT us Rasta Garcia MD LAB BLOOD ORDERABLES Final Res ult [facility] [address] [facility] Department [place] [address] * (ABNORMAL) Basic metabolic panel (01/11/2025 1:12 PM CDT) Sodium 138 135 - 145 mmol/L Comment:Testing performed by : [facility], [address] [place] [address]., [address] Potassium, pl 3.7 3.3 - 4.9 mmol/L [facility] Comment:Testing performed by : [address], [place]., [address] Chloride 103 97 - 110 mmol/L [facility] Comment:Testing performed by : [address], [place]., [address] CO2 24 22 - 32 mmol/L [facility] Comment:Testing performed by : [address], [place]., [address] Anion gap 11 2 - 15 mmol/L [facility] Comment:Testing performed by : [address], [place]., [address] BUN 2(L) 6 - 25 mg/dL [facility] Comment:Testing performed by : [address], [place]., [address] Creatinine 0.50(L) 0.80 - 1.30 mg/dL [facility] Comment:Testing performed by : [address] [address] Glucose 110 70 - 199 mg/dL [facility] Comment: Interpretive Data Fasting glucose >/= 126 mg/dl is diagnostic for diabetes. Fasting is defined as no caloric intake for at least 8 hours. Fasting glucose between 100 mg/dl to 125 mg/dl is diagnostic of prediabetes. In a patient with classic symptoms of hyperglycemia or hyperglycemic crisis, a random glucose >/= 200 mg/dl is diagnostic for diabetes. In the absence of unequivocal hyperglycemia, results should be confirmed by repeat testing. The classification and Diagnosis of Diabetes Diabetes Care 2021; 46: S19-S40. Current interpretive data was last revised 2022. Testing performed by: [address] [address] Calcium 8.7 8.5 - 10.3 mg/dL [facility] Comment:Testing performed by : [address], [place]., [address] Blood 01/11/2025 1:12 PM CDT 01/11/2025 1:15 PM CDT us Rasta Garcia MD LAB BLOOD ORDERABLES Final Res ult [facility] [address] [facility] [place] [address] * XR Chest 1 View (01/10/2025 1:39 PM CDT) Anatomical Region Laterality Modality Body, Chest N/A Computed Radiogr aphy 01/10/2025 2:32 PM CDT Narrative 01/10/2025 2:33 PM CDT EXAM DESCRIPTION: XR CHEST 1 VIEW REASON FOR STUDY: SOB Increased SOB today TECHNIQUE: Single radiographic view(s) of the chest. COMPARISON: Chest radiograph 01/01/2025 FINDINGS: LUNGS: Mild bilateral pulmonary edema. No focal opacity, pleural effusion, or pneumothorax. HEART/MEDIASTINUM: Cardiac silhouette is enlarged in size. Mediastinal and hilar contours appear normal. LINES/TUBES: None. BONES: No acute osseous abnormality. IMPRESSION: Cardiomegaly with mild bilateral pulmonary edema. No pleural effusion THIS IS AN ELECTRONICALLY VERIFIED FINAL REPORT 01/10/2025 2:33 PM - Electronically signed by Anne Merchant M.D. FT: FT Report ID: [id number] Reading Location: [id number] Procedure Note Anne Hernandes MD - 01/10/2025 EXAM DESCRIPTION: XR CHEST 1 VIEW REASON FOR STUDY: SOB Increased SOB today TECHNIQUE: Single radiographic view(s) of the chest. COMPARISON: Chest radiograph 01/01/2025 FINDINGS: LUNGS: Mild bilateral pulmonary edema. No focal opacity,pleural effusion, or pneumothorax. HEART/MEDIASTINUM: Cardiac silhouette is enlarged in size. Mediastinaland hilar contours appear normal. LINES/TUBES: None. BONES: No acute osseous abnormality. IMPRESSION: Cardiomegaly with mild bilateral pulmonary edema. No pleural effusion THIS IS AN ELECTRONICALLY VERIFIED FINAL REPORT 01/10/2025 2:33 PM - Electronically signed by Anne Merchant M.D. FT: FT Report ID: [id number] Reading Location: [place] [address] us Jaya Garcia DO IMG XR PROCEDURES Final Result * eGFR (01/10/2025 10:29 AM CDT) eGFR >90 >=60 mL/min/1. 73 m2 Comment: Interpretive Data Reference Interval Normal >/= 90 mL/min/1.73m2 Mildly decreased* 60 - 89 mL/min/1.73m2 Mildly to moderately decreased 45 - 59 mL/min/1.73m2 Moderately to severely decreased 30 - 44 mL/min/1.73m2 Severely decreased 15 - 29 mL/min/1.73m2 Kidney Failure < 15 mL/min/1.73m2 *Relative to young adult level Estimated glomerular filtration rate is determined by the 2020 CKD-EPI equation recommended by the National Kidney Foundation (A Unifying Approach to GFR Estimation: Recommendations of the NKF-ASK Task Force on Reassessing the Inclusion of Race in Diagnosing Kidney Disease, JASN 2020). The CKD-EPI equation should not be used for patients with unstable renal function and has not been validated in children and those over 70. Current interpretive data was last reviewed 2021. Testing performed by: [facility], [address] [place] [address]., [address] Blood 01/10/2025 10:2 9 AM CDT 01/10/2025 10:53 AM CDT us Rasta Garcia MD LAB BLOOD ORDERABLES Final Res ult [facility] [facility] [place] [address] * (ABNORMAL) Differential, auto (01/10/2025 10:29 AM CDT) Neutrophil abs 4.63 1.50 - 6.50 K/cumm Comment:Testing performed by : [address] [address] Imm gran abs 0.08 0.00 - 0.10 K/cumm [facility] Comment:Testing performed by : [address], [place]., [address] Lymphocyte abs 4.22(H) 0.80 - 3.30 K/cumm [facility] Comment:Testing performed by : [address], [place]., [address] Monocyte abs 0.96(H) 0.20 - 0.80 K/cumm [facility] Comment:Testing performed by : [address] [address] Eosinophil abs 0.20 0.00 - 0.50 K/cumm [facility] Comment:Testing performed by : [address] [address] Basophil abs 0.06 0.00 - 0.10 K/cumm [facility] Comment:Testing performed by : [address] [address] Neutrophil pct 45.5 % [facility] Comment: Interpretive Data Percent cell count reference ranges are not reported, since discordance with absolute values may lead to misinterpretation of CBC data. Current Interpretive Data was last revised on 2017. Testing performed by: [address] [address] Imm gran pct 0.8 % [facility] Comment: Interpretive Data Percent cell count reference ranges are not reported, since discordance with absolute values may lead to misinterpretation of CBC data. Current Interpretive Data was last revised on 2017. Testing performed by: [address] [address] Lymphocyte pct 41.6 % [facility] Comment: Interpretive Data Percent cell count reference ranges are not reported, since discordance with absolute values may lead to misinterpretation of CBC data. Current Interpretive Data was last revised on 2017. Testing performed by: [address] [address] Monocyte pct 9.5 % [facility] Comment: Interpretive Data Percent cell count reference ranges are not reported, since discordance with absolute values may lead to misinterpretation of CBC data. Current Interpretive Data was last revised on 2017. Testing performed by: [address] [address] Eosinophil pct 2.0 % [facility] Comment: Interpretive Data Percent cell count reference ranges are not reported, since discordance with absolute values may lead to misinterpretation of CBC data. Current Interpretive Data was last revised on 2017. Testing performed by: [address] [address] Basophil pct 0.6 % [facility] Comment: Interpretive Data Percent cell count reference ranges are not reported, since discordance with absolute values may lead to misinterpretation of CBC data. Current Interpretive Data was last revised on 2017. Testing performed by: [address] [address] Blood 01/10/2025 10:2 9 AM CDT 01/10/2025 10:52 AM CDT us Rasta Garcia MD LAB BLOOD ORDERABLES Final Res ult [facility] [address] [facility] [place] [address] * (ABNORMAL) Reticulocyte Count (01/10/2025 10:29 AM CDT) Retics, absolute 624(H) 20 - 87 K/cumm Comment:Testing performed by : [address] [address] Retics 21.5(H) 0.4 - 2.9 % [facility] Comment:Testing performed by : [address] [address] Reticulocyte Hgb 28.1(L) 30.5 - 38.0 pg [facility] Comment:Testing performed by : [address] [address] Blood 01/10/2025 10:2 9 AM CDT 01/10/2025 10:52 AM CDT us Rasta Garcia MD LAB BLOOD ORDERABLES Final Res ult [facility] [address] [facility] [place] [address] * (ABNORMAL) CBC with auto differential (01/10/2025 10:29 AM CDT) WBC 10.15(H) 3.80 - 9.90 K/cumm Comment:Testing performed by : [address] [address] Hgb 7.5(L) 13.0 - 17.5 g/dL [facility] Comment:Testing performed by : [address] [address] Hct 22.0(L) 38.9 - 50.3 % [facility] Comment:Testing performed by : [address] [address] Plt 324 150 - 400 K/cumm [facility] Comment:Testing performed by : [address] [address] MPV 10.3 9.1 - 12.3 fL [facility] Comment:Testing performed by : [address] [address] RBC 2.51(L) 4.30 - 5.80 M/cumm [facility] Comment:Testing performed by : [address] [address] MCV 87.6 81.3 - 96.4 fL [facility] Comment:Testing performed by : [address] [address] MCH 29.9 27.1 - 33.3 pg [facility] SHETTY Comment:Testing performed by : [address] [address] MCHC 34.1 32.3 - 35.7 g/dL [facility] Comment:Testing performed by : [address] [address] RDW CV 22.9(H) 11.1 - 14.9 % [facility] SHETTY Comment:Testing performed by : [address] [address] RDW SD 69.4(H) 35.7 - 48.1 fL [facility] SHETTY Comment:Testing performed by : [address] [address] NRBC abs 0.15(H) 0.00 - 0.01 K/cumm [facility] Comment:Testing performed by : [address] [address] Morphologic Screen Results confirmed by manual morphology review. [facility] Comment:Testing performed by : [address] [address] Blood 01/10/2025 10:2 9 AM CDT 01/10/2025 10:52 AM CDT Rasta Garcia MD LAB BLOOD ORDERABLES Edited Re sharifat - Final [facility] [address] [facility] [place] [address] * (ABNORMAL) Basic metabolic panel (01/10/2025 10:29 AM CDT) Sodium 138 135 - 145 mmol/L Comment:Testing performed by : [address] [address] Potassium, pl 3.5 3.3 - 4.9 mmol/L [facility] SHETTY Comment:Testing performed by : [address] [address] Chloride 104 97 - 110 mmol/L [facility] Comment:Testing performed by : [address] [address] CO2 24 22 - 32 mmol/L [facility] SHETTY Comment:Testing performed by : [address] [address] Anion gap 10 2 - 15 mmol/L [facility] SHETTY Comment:Testing performed by : [address] [address] BUN 2(L) 6 - 25 mg/dL [facility] Comment:Testing performed by : [address] [address] Creatinine 0.50(L) 0.80 - 1.30 mg/dL [facility] SHETTY Comment:Testing performed by : [address] [address] Glucose 98 70 - 199 mg/dL [facility] Comment: Interpretive Data Fasting glucose >/= 126 mg/dl is diagnostic for diabetes. Fasting is defined as no caloric intake for at least 8 hours. Fasting glucose between 100 mg/dl to 125 mg/dl is diagnostic of prediabetes. In a patient with classic symptoms of hyperglycemia or hyperglycemic crisis, a random glucose >/= 200 mg/dl is diagnostic for diabetes. In the absence of unequivocal hyperglycemia, results should be confirmed by repeat testing. The classification and Diagnosis of Diabetes Diabetes Care 2021; 46: S19-S40. Current interpretive data was last revised 2022. Testing performed by: [address] [address] Calcium 8.4(L) 8.5 - 10.3 mg/dL [facility] Comment:Testing performed by : [address] [address] Blood 01/10/2025 10:2 9 AM CDT 01/10/2025 10:53 AM CDT us Rasta Garcia MD LAB BLOOD ORDERABLES Final Res ult [facility] [address] [facility] [place] [address] * (ABNORMAL) Differential, auto (01/09/2025 4:55 AM CDT) Neutrophil abs 4.56 1.50 - 6.50 K/cumm Comment:Testing performed by : [address] [address] Imm gran abs 0.05 0.00 - 0.10 K/cumm [facility] SHETTY Comment:Testing performed by : [address] [address] Lymphocyte abs 3.68(H) 0.80 - 3.30 K/cumm [facility] Comment:Testing performed by : [address] [address] Monocyte abs 1.48(H) 0.20 - 0.80 K/cumm [facility] Comment:Testing performed by : [address] [address] Eosinophil abs 0.24 0.00 - 0.50 K/cumm [facility] Comment:Testing performed by : [address], [place]., [address] Basophil abs 0.06 0.00 - 0.10 K/cumm [facility] Comment:Testing performed by : [address] [address] Neutrophil pct 45.3 % [facility] Comment: Interpretive Data Percent cell count reference ranges are not reported, since discordance with absolute values may lead to misinterpretation of CBC data. Current Interpretive Data was last revised on 2017. Testing performed by: [address] [address] Imm gran pct 0.5 % [facility] Comment: Interpretive Data Percent cell count reference ranges are not reported, since discordance with absolute values may lead to misinterpretation of CBC data. Current Interpretive Data was last revised on 2017. Testing performed by: [address] [address] Lymphocyte pct 36.5 % [facility] Comment: Interpretive Data Percent cell count reference ranges are not reported, since discordance with absolute values may lead to misinterpretation of CBC data. Current Interpretive Data was last revised on 2017. Testing performed by: [address] [address] Monocyte pct 14.7 % [facility] Comment: Interpretive Data Percent cell count reference ranges are not reported, since discordance with absolute values may lead to misinterpretation of CBC data. Current Interpretive Data was last revised on 2017. Testing performed by: [address] [address] Eosinophil pct 2.4 % [facility] Comment: Interpretive Data Percent cell count reference ranges are not reported, since discordance with absolute values may lead to misinterpretation of CBC data. Current Interpretive Data was last revised on 2017. Testing performed by: [address] [address] Basophil pct 0.6 % [facility] SHETTY Comment: Interpretive Data Percent cell count reference ranges are not reported, since discordance with absolute values may lead to misinterpretation of CBC data. Current Interpretive Data was last revised on 2017. Testing performed by: [address] [address] Blood 01/09/2025 4:55 AM CDT 01/09/2025 4:59 AM CDT us Rasta Garcia MD LAB BLOOD ORDERABLES Final Res ult Performing Organization Address [facility] de Phone Number [facility] [address] [place] [address] * (ABNORMAL) Reticulocyte Count (01/09/2025 4:55 AM CDT) Retics, absolute 566(H) 20 - 87 K/cumm Comment:Testing performed by : [address] [address] Retics 23.2(H) 0.4 - 2.9 % [facility] SHETTY Comment:Testing performed by : [address] [address] Reticulocyte Hgb 28.1(L) 30.5 - 38.0 pg [facility] SHETTY Comment:Testing performed by : [address] [address] Blood 01/09/2025 4:55 AM CDT 01/09/2025 4:59 AM CDT us Rasta Garcia MD LAB BLOOD ORDERABLES Final Res ult Performing Organization Address [facility] Co de Phone Number [facility] [place] [address] * (ABNORMAL) CBC with auto differential (01/09/2025 4:55 AM CDT) [facility] Signature WBC 10.07(H) 3.80 - 9.90 K/cumm Comment:Testing performed by : [address] [address] Hgb 7.3(L) 13.0 - 17.5 g/dL [facility] Comment:Testing performed by : [address] [address] Hct 21.4(L) 38.9 - 50.3 % [facility] Comment:Testing performed by : [address], [address] Plt 285 150 - 400 K/cumm [facility] Comment:Testing performed by : [address] [address] MPV 10.1 9.1 - 12.3 fL [facility] Comment:Testing performed by : [address], [address] RBC 2.44(L) 4.30 - 5.80 M/cumm [facility] Comment:Testing performed by : [address], [address] MCV 87.7 81.3 - 96.4 fL [facility] Comment:Testing performed by : [address] [address] MCH 29.9 27.1 - 33.3 pg [facility] Comment:Testing performed by : [address], [address] MCHC 34.1 32.3 - 35.7 g/dL [facility] Comment:Testing performed by : [address], [address] RDW CV 22.1(H) 11.1 - 14.9 % [facility] Comment:Testing performed by : [address] [address] RDW SD 67.3(H) 35.7 - 48.1 fL [facility] Comment:Testing performed by : [address], [address] NRBC abs 0.19(H) 0.00 - 0.01 K/cumm [facility] SHETTY Comment:Testing performed by : [address] [address] Morphologic Screen Results confirmed by manual morphology review. [facility] SHETTY Comment:Testing performed by : [address] [address] Blood 01/09/2025 4:55 AM CDT 01/09/2025 4:59 AM CDT us Rasta Garcia MD LAB BLOOD ORDERABLES Final Res ult [facility] SHETTY [address] [facility] Department of Laboratories [place], [place] [id number] * eGFR (01/09/2025 4:50 AM CDT) eGFR >90 >=60 mL/min/1. 73 m2 Comment: Interpretive Data Reference Interval Normal >/= 90 mL/min/1.73m2 Mildly decreased* 60 - 89 mL/min/1.73m2 Mildly to moderately decreased 45 - 59 mL/min/1.73m2 Moderately to severely decreased 30 - 44 mL/min/1.73m2 Severely decreased 15 - 29 mL/min/1.73m2 Kidney Failure < 15 mL/min/1.73m2 *Relative to young adult level Estimated glomerular filtration rate is determined by the 2020 CKD-EPI equation recommended by the National Kid[employer] (A Unifying Approach to GFR Estimation: Recommendations of the NKF-ASK Task Force on Reassessing the Inclusion of Race in Diagnosing Kidney Disease, JASN 2020). The CKD-EPI equation should not be used for patients with unstable renal function and has not been validated in children and those over 70. Current interpretive data was last reviewed 2021. Testing performed by: [address] [address] Blood 01/09/2025 4:50 AM CDT 01/09/2025 4:59 AM CDT us Rasta Garcia MD LAB BLOOD ORDERABLES Final Res ult [facility] [address] [facility] [place] [address] * (ABNORMAL) Basic metabolic panel (01/09/2025 4:50 AM CDT) Sodium 137 135 - 145 mmol/L Comment:Testing performed by : [address] [address] Potassium, pl 3.9 3.3 - 4.9 mmol/L [facility] Comment:Testing performed by : [address] [address] Chloride 102 97 - 110 mmol/L [facility] Comment:Testing performed by : [address] [address] CO2 23 22 - 32 mmol/L [facility] Comment:Testing performed by : [address] [address] Anion gap 12 2 - 15 mmol/L [facility] Comment:Testing performed by : [address] [address] BUN 4(L) 6 - 25 mg/dL [facility] Comment:Testing performed by : [address] [address] Creatinine 0.56(L) 0.80 - 1.30 mg/dL [facility] Comment:Testing performed by : [address] [address] Glucose 109 70 - 199 mg/dL [facility] Comment: Interpretive Data Fasting glucose >/= 126 mg/dl is diagnostic for diabetes. Fasting is defined as no caloric intake for at least 8 hours. Fasting glucose between 100 mg/dl to 125 mg/dl is diagnostic of prediabetes. In a patient with classic symptoms of hyperglycemia or hyperglycemic crisis, a random glucose >/= 200 mg/dl is diagnostic for diabetes. In the absence of unequivocal hyperglycemia, results should be confirmed by repeat testing. The classification and Diagnosis of Diabetes Diabetes Care 2021; 46: S19-S40. Current interpretive data was last revised 2022. Testing performed by: [address], [place]., [address] Calcium 8.8 8.5 - 10.3 mg/dL [facility] SHETTY Comment:Testing performed by : [address] [address] Blood 01/09/2025 4:50 AM CDT 01/09/2025 4:59 AM CDT us Rasta Garcia MD LAB BLOOD ORDERABLES Final Res ult [facility] DIOGENES [address] [facility] [place] [address] * CT Abdomen Pelvis WO Contrast (01/08/2025 11:07 AM CDT) Anatomical Region Laterality Modality Body N/A Computed Tomogra phy 01/08/2025 4:53 PM CDT Narrative 01/08/2025 5:00 PM CDT EXAM DESCRIPTION: CT ABDOMEN PELVIS WO CONTRAST REASON FOR STUDY: Abdominal pain, acute, nonlocalized Abd pain RLQ pt. Reports recent appy. treated with abx. TECHNIQUE: CT scan of the abdomen and pelvis performed without intravenous and without oral contrast using helical scanning technique. Reconstructed coronal and sagittal MPR images reviewed. All images stored on PACS. Automated exposure control was used as a dose optimization technique for this examination. COMPARISON: 08/30/2024, 08/13/2024, 02/10/2024 06/26/2023 REFERENCE: Per ACR white paper recommendations, unless otherwise specified no follow-up imaging is recommended for incidental renal and adrenal lesions per consensus recommendations based on imaging criteria. Further lab evaluation could be pursued based on clinical findings. FINDINGS: Absence of intravenous contrast reduces sensitivity for detection of pathology. Findings made within these confines. LOWER CHEST: Mild cardiomegaly. Subsegmental atelectasis. LIVER: No concerning lesions by noncontrast technique. GALLBLADDER/BILE DUCTS: No significant biliary ductal dilatation. SPLEEN: Atrophic. PANCREAS: No significant ductal dilatation or discrete lesion. ADRENALS: No measurable nodule. KIDNEYS/URETERS: No hydronephrosis. No obstructing nephroureterolithiasis. BLADDER/URINARY: No significant bladder wall thickening. REPRODUCTIVE: No significant abnormality. GASTROINTESTINAL: No dilated bowel loops. No obvious wall thickening. Unremarkable appendix similar in appearance over multiple prior examinations. LYMPH NODES: Similar-appearing mildly prominent mesenteric and iliac chain lymph nodes which are nonspecific and possibly reactive. No pathologically enlarged lymphadenopathy. PERITONEUM/RETROPERITONEUM: No ascites or free air. VASCULATURE: No abdominal aortic aneurysm. MUSCULOSKELETAL: Osseous stigmata of sickle cell disease. Heterogeneous serpiginous sclerosis of the bilateral femoral heads compatible with osteonecrosis. No acute displaced fracture. OTHER: No significant abnormality. IMPRESSION: 1. No acute abnormality with the abdomen or pelvis. 2. Similar-appearing mildly prominent mesenteric and iliac chain lymph nodes which are nonspecific and possibly reactive. 3. Osseous stigmata of sickle cell disease. THIS IS AN ELECTRONICALLY VERIFIED FINAL REPORT 01/08/2025 5:00 PM - Electronically signed by Anival Cotton M.D. NS: NS Report ID: [id number] Reading Location: [id number] Procedure Note Anival Cotton MD - 01/08/2025 EXAM DESCRIPTION: CT ABDOMEN PELVIS WO CONTRAST REASON FOR STUDY: Abdominal pain, acute, nonlocalized Abd pain RLQ pt. Reports recent appy. treated with abx. TECHNIQUE: CT scan of the abdomen and pelvis performed without intravenousand without oral contrast using helical scanning technique. Reconstructed coronal and sagittal MPR images reviewed. All images stored on PACS.Automated exposure control was used as a dose optimization technique for this examination. COMPARISON: 08/30/2024, 08/13/2024, 02/10/2024 06/26/2023 REFERENCE: Per ACR white paper recommendations, unless otherwise specifiedno follow-up imaging is recommended for incidental renal and adrenal lesionsper consensus recommendations based on imaging criteria. Further labevaluation could be pursued based on clinical findings. FINDINGS: Absence of intravenous contrast reduces sensitivity fordetection of pathology. Findings made within these confines. LOWER CHEST: Mild cardiomegaly. Subsegmental atelectasis. LIVER: No concerning lesions by noncontrast technique. GALLBLADDER/BILE DUCTS: No significant biliary ductal dilatation. SPLEEN: Atrophic. PANCREAS: No significant ductal dilatation or discrete lesion. ADRENALS: No measurable nodule. KIDNEYS/URETERS: No hydronephrosis. No obstructingnephroureterolithiasis. BLADDER/URINARY: No significant bladder wall thickening. REPRODUCTIVE: No significant abnormality. GASTROINTESTINAL: No dilated bowel loops. No obvious wall thickening. Unremarkable appendix similar in appearance over multiple priorexaminations. LYMPH NODES: Similar-appearing mildly prominent mesenteric and iliacchain lymph nodes which are nonspecific and possibly reactive. Nopathologically enlarged lymphadenopathy. PERITONEUM/RETROPERITONEUM: No ascites or free air. VASCULATURE: No abdominal aortic aneurysm. MUSCULOSKELETAL: Osseous stigmata of sickle cell disease. Heterogeneous serpiginous sclerosis of the bilateral femoral heads compatible with osteonecrosis. No acute displaced fracture. OTHER: No significant abnormality. IMPRESSION: 1. No acute abnormality with the abdomen or pelvis. 2. Similar-appearing mildly prominent mesenteric and iliac chain lymphnodes which are nonspecific and possibly reactive. 3. Osseous stigmata of sickle cell disease. THIS IS AN ELECTRONICALLY VERIFIED FINAL REPORT 01/08/2025 5:00 PM - Electronically signed by Anival Cotton M.D. NS: NS Report ID: [id number] Reading Location: [place] [address] Jaya Garcia DO IMG CT PROCEDURES Final Result * (ABNORMAL) Manual Differential (01/07/2025 10:48 AM CDT) Differential Manual Comment:Testing performed by : [address] [address] Cells Counted 100 [facility] Comment:Testing performed by : [address] [address] Neutrophil abs 3.92 1.50 - 6.50 K/cumm [facility] Comment:Testing performed by : [address] [address] Lymphocyte abs 4.44(H) 0.80 - 3.30 K/cumm [facility] Comment:Testing performed by : [address] [address] Monocyte abs 0.26 0.20 - 0.80 K/cumm [facility] Comment:Testing performed by : [address], [place]., [address] Eosinophil abs 0.09 0.00 - 0.50 K/cumm [facility] Comment:Testing performed by : [address] [address] Neutrophil pct 45.0 % [facility] Comment: Interpretive Data Percent cell count reference ranges are not reported, since discordance with absolute values may lead to misinterpretation of CBC data. Current Interpretive Data was last revised on 2017. Testing performed by: [address] [address] Lymphocyte pct 51.0 % [facility] Comment: Interpretive Data Percent cell count reference ranges are not reported, since discordance with absolute values may lead to misinterpretation of CBC data. Current Interpretive Data was last revised on 2017. Testing performed by: [address] [address] Monocyte pct 3.0 % [facility] Comment: Interpretive Data Percent cell count reference ranges are not reported, since discordance with absolute values may lead to misinterpretation of CBC data. Current Interpretive Data was last revised on 2017. Testing performed by: [address] [address] Eosinophil pct 1.0 % [facility] Comment: Interpretive Data Percent cell count reference ranges are not reported, since discordance with absolute values may lead to misinterpretation of CBC data. Current Interpretive Data was last revised on 2017. Testing performed by: [address] [address] RBC morphology Present(A) [facility] Comment:Testing performed by : [address] [address] Anisocytosis Marked(A) [facility] Comment:Testing performed by : [address] [address] Sickle cells 1-2/HPF(A) [facility] Comment:Testing performed by : [address] [address] Elliptocytes 3-7/HPF(A) [facility] Comment:Testing performed by : [address] [address] Target cells 3-7/HPF(A) [facility] Comment:Testing performed by : [address] [address] Platelet morphology Normal [facility] Comment:Testing performed by : [address] [address] Platelet estimate Adequate [facility] Comment:Testing performed by : [address] [address] Blood 01/07/2025 10:4 8 AM CDT 01/07/2025 11:07 AM CDT us Jaya Garcia DO LAB BLOOD ORDERABLES Final Resul t [facility] [place] [address] * eGFR (01/07/2025 10:48 AM CDT) eGFR >90 >=60 mL/min/1. 73 m2 Comment: Interpretive Data Reference Interval Normal >/= 90 mL/min/1.73m2 Mildly decreased* 60 - 89 mL/min/1.73m2 Mildly to moderately decreased 45 - 59 mL/min/1.73m2 Moderately to severely decreased 30 - 44 mL/min/1.73m2 Severely decreased 15 - 29 mL/min/1.73m2 Kidney Failure < 15 mL/min/1.73m2 *Relative to young adult level Estimated glomerular filtration rate is determined by the 2020 CKD-EPI equation recommended by the National Kidney Foundation (A Unifying Approach to GFR Estimation: Recommendations of the NKF-ASK Task Force on Reassessing the Inclusion of Race in Diagnosing Kidney Disease, JASN 2020). The CKD-EPI equation should not be used for patients with unstable renal function and has not been validated in children and those over 70. Current interpretive data was last reviewed 2021. Testing performed by: [address] [address] Blood 01/07/2025 10:4 8 AM CDT 01/07/2025 11:07 AM CDT us Rasta Garcia MD LAB BLOOD ORDERABLES Final Res ult Performing Organization Address [facility] Co de Phone Number [facility] [place] [address] * (ABNORMAL) Reticulocyte Count (01/07/2025 10:48 AM CDT) Pathologist [facility] Retics, absolute 559(H) 20 - 87 K/cumm Comment:Testing performed by : [address] [address] Retics 20.7(H) 0.4 - 2.9 % [facility] SHETTY Comment:Testing performed by : [address] [address] Reticulocyte Hgb 28.5(L) 30.5 - 38.0 pg [facility] SHETTY Comment:Testing performed by : [address] [address] Blood 01/07/2025 10:4 8 AM CDT 01/07/2025 11:07 AM CDT us Rasta Garcia MD LAB BLOOD ORDERABLES Final Res ult Performing Organization Address [facility] de Phone Number [facility] [address] [place] [address] * (ABNORMAL) Basic metabolic panel (01/07/2025 10:48 AM CDT) [facility] Sodium 141 135 - 145 mmol/L Comment:Testing performed by : [address] [address] Potassium, pl 3.3 3.3 - 4.9 mmol/L [facility] SHETTY Comment:Testing performed by : [address] [address] Chloride 104 97 - 110 mmol/L [facility] SHETTY Comment:Testing performed by : [address] [address] CO2 25 22 - 32 mmol/L [facility] Comment:Testing performed by : [address] [address] Anion gap 12 2 - 15 mmol/L [facility] Comment:Testing performed by : [address] [address] BUN 2(L) 6 - 25 mg/dL [facility] Comment:Testing performed by : [address] [address] Creatinine 0.50(L) 0.80 - 1.30 mg/dL [facility] Comment:Testing performed by : [address] [address] Glucose 162 70 - 199 mg/dL [facility] Comment: Interpretive Data Fasting glucose >/= 126 mg/dl is diagnostic for diabetes. Fasting is defined as no caloric intake for at least 8 hours. Fasting glucose between 100 mg/dl to 125 mg/dl is diagnostic of prediabetes. In a patient with classic symptoms of hyperglycemia or hyperglycemic crisis, a random glucose >/= 200 mg/dl is diagnostic for diabetes. In the absence of unequivocal hyperglycemia, results should be confirmed by repeat testing. The classification and Diagnosis of Diabetes Diabetes Care 202; 46: S19-S40. Current interpretive data was last revised 2022. Testing performed by: [address] [address] Calcium 8.6 8.5 - 10.3 mg/dL [facility] Comment:Testing performed by : [address] [address] Blood 01/07/2025 10:4 8 AM CDT 01/07/2025 11:07 AM CDT us Rasta Garcia MD LAB BLOOD ORDERABLES Final Res ult [facility] [address] [facility] Department of Laboratories [place], [place] [id number] * (ABNORMAL) CBC with auto differential (01/07/2025 10:48 AM CDT) WBC 8.71 3.80 - 9.90 K/cumm Comment:Testing performed by : [address] [address] Hgb 8.0(L) 13.0 - 17.5 g/dL [facility] Comment:Testing performed by : [address] [address] Hct 23.2(L) 38.9 - 50.3 % CERALEJANDRA Comment:Testing performed by : [address] [address] Plt 324 150 - 400 K/cumm [facility]ER[facility]ANDRA Comment:Testing performed by : [address], [address] MPV 10.3 9.1 - 12.3 fL [facility] Comment:Testing performed by : [address] [address] RBC 2.58(L) 4.30 - 5.80 M/cumm [facility] Comment:Testing performed by : [address] [address] MCV 89.9 81.3 - 96.4 fL [facility]ER[facility] Comment:Testing performed by : [address], [address] MCH 31.0 27.1 - 33.3 pg [facility] Comment:Testing performed by : [address] [address] MCHC 34.5 32.3 - 35.7 g/dL [facility]ER[facility] Comment:Testing performed by : [address], [address] RDW CV 21.6(H) 11.1 - 14.9 % [facility] Comment:Testing performed by : [address] [address] RDW SD 68.9(H) 35.7 - 48.1 fL [facility]ER[facility]ANDR[facility] Comment:Testing performed by : [address] [address] NRBC abs 0.26(H) 0.00 - 0.01 K/cumm [facility] Comment:Testing performed by : [address], [address] Blood 01/07/2025 10:4 8 AM CDT 01/07/2025 11:07 AM CDT us Jaya Talbertm LAB BLOOD ORDERABLES Final Resul t Performing Organization Address [facility] Co de Phone Number [facility] [address] [place] [address] * eGFR (01/06/2025 6:52 AM CDT) eGFR >90 >=60 mL/min/1. 73 m2 Comment: Interpretive Data Reference Interval Normal >/= 90 mL/min/1.73m2 Mildly decreased* 60 - 89 mL/min/1.73m2 Mildly to moderately decreased 45 - 59 mL/min/1.73m2 Moderately to severely decreased 30 - 44 mL/min/1.73m2 Severely decreased 15 - 29 mL/min/1.73m2 Kidney Failure < 15 mL/min/1.73m2 *Relative to young adult level Estimated glomerular filtration rate is determined by the 2020 CKD-EPI equation recommended by the National Kidney Foundation (A Unifying Approach to GFR Estimation: Recommendations of the NKF-ASK Task Force on Reassessing the Inclusion of Race in Diagnosing Kidney Disease, JASN 2020). The CKD-EPI equation should not be used for patients with unstable renal function and has not been validated in children and those over 70. Current interpretive data was last reviewed 2021. Testing performed by: [facility], [address] [place] [address]., [address] Blood 01/06/2025 6:52 AM CDT 01/06/2025 7:14 AM CDT us Rasta Garcia MD LAB BLOOD ORDERABLES Final Res ult Performing Organization Address City/[facility]/ZIP Co de Phone Number [facility] [address] [place] [address] * (ABNORMAL) Basic metabolic panel (01/06/2025 6:52 AM CDT) Sodium 139 135 - 145 mmol/L Comment:Testing performed by : [address] [address] Potassium, pl 3.7 3.3 - 4.9 mmol/L [facility] Comment:Testing performed by : [address] [address] Chloride 103 97 - 110 mmol/L [facility] Comment:Testing performed by : [address] [address] CO2 23 22 - 32 mmol/L [facility] Comment:Testing performed by : [address], [place]., [address] Anion gap 13 2 - 15 mmol/L [facility] Comment:Testing performed by : [address] [address] BUN 2(L) 6 - 25 mg/dL [facility] Comment:Testing performed by : [address] [address] Creatinine 0.50(L) 0.80 - 1.30 mg/dL [facility] Comment:Testing performed by : [address] [address] Glucose 95 70 - 199 mg/dL [facility] Comment: Interpretive Data Fasting glucose >/= 126 mg/dl is diagnostic for diabetes. Fasting is defined as no caloric intake for at least 8 hours. Fasting glucose between 100 mg/dl to 125 mg/dl is diagnostic of prediabetes. In a patient with classic symptoms of hyperglycemia or hyperglycemic crisis, a random glucose >/= 200 mg/dl is diagnostic for diabetes. In the absence of unequivocal hyperglycemia, results should be confirmed by repeat testing. The classification and Diagnosis of Diabetes Diabetes Care 202; 46: S19-S40. Current interpretive data was last revised 2022. Testing performed by: [address] [address] Calcium 8.6 8.5 - 10.3 mg/dL [facility] Comment:Testing performed by : [address] [address] Blood 01/06/2025 6:52 AM CDT 01/06/2025 7:14 AM CDT us Rasta Garcia MD LAB BLOOD ORDERABLES Final Res ult [facility] [address] [facility] [place] [address] * (ABNORMAL) Manual Differential (01/04/2025 7:27 AM CDT) Differential Manual Comment:Testing performed by : [address] [address] Cells Counted 100 [facility] Comment:Testing performed by : [address] [address] Neutrophil abs 3.26 1.50 - 6.50 K/cumm [facility] Comment:Testing performed by : [address] [address] Lymphocyte abs 5.88(H) 0.80 - 3.30 K/cumm [facility] Comment:Testing performed by : [address] [address] Monocyte abs 0.63 0.20 - 0.80 K/cumm [facility] Comment:Testing performed by : [address] [address] Eosinophil abs 0.53(H) 0.00 - 0.50 K/cumm [facility] Comment:Testing performed by : [address] [address] Basophil abs 0.21(H) 0.00 - 0.10 K/cumm [facility] Comment:Testing performed by : [address] [address] Neutrophil pct 31.0 % [facility] Comment: Interpretive Data Percent cell count reference ranges are not reported, since discordance with absolute values may lead to misinterpretation of CBC data. Current Interpretive Data was last revised on 2017. Testing performed by: [address] [address] Lymphocyte pct 56.0 % [facility] Comment: Interpretive Data Percent cell count reference ranges are not reported, since discordance with absolute values may lead to misinterpretation of CBC data. Current Interpretive Data was last revised on 2017. Testing performed by: [address] [address] Monocyte pct 6.0 % [facility] Comment: Interpretive Data Percent cell count reference ranges are not reported, since discordance with absolute values may lead to misinterpretation of CBC data. Current Interpretive Data was last revised on 2017. Testing performed by: [address] [address] Eosinophil pct 5.0 % [facility] Comment: Interpretive Data Percent cell count reference ranges are not reported, since discordance with absolute values may lead to misinterpretation of CBC data. Current Interpretive Data was last revised on 2017. Testing performed by: [address] [address] Basophil pct 2.0 % [facility] Comment: Interpretive Data Percent cell count reference ranges are not reported, since discordance with absolute values may lead to misinterpretation of CBC data. Current Interpretive Data was last revised on 2017. Testing performed by: [address], [place]., [address] Vacuolation Present(A) [facility] Comment:Testing performed by : [address] [address] RBC morphology Present(A) [facility] Comment:Testing performed by : [address] [address] Polychromasia 3-7/HPF(A) [facility] Comment:Testing performed by : [address] [address] Anisocytosis Marked(A) [facility] Comment:Testing performed by : [address] [address] Macrocytes 3-7/HPF(A) [facility] Comment:Testing performed by : [address] [address] Schistocytes 1-2/HPF(A) [facility] Comment:Testing performed by : [address] [address] Sickle cells 3-7/HPF(A) [facility] Comment:Testing performed by : [address] [address] Platelet estimate Adequate [facility] SHETTY Comment:Testing performed by : [address] [address] Giant platelets Present(A) [facility] SHETTY Comment:Testing performed by : [address] [address] Blood 01/04/2025 7:27 AM CDT 01/04/2025 7:34 AM CDT us Rasta Garcia MD LAB BLOOD ORDERABLES Final Res ult [facility] SHETTY 52[address] [facility] [place] [address] * eGFR (01/04/2025 7:27 AM CDT) eGFR >90 >=60 mL/min/1. 73 m2 Comment: Interpretive Data Reference Interval Normal >/= 90 mL/min/1.73m2 Mildly decreased* 60 - 89 mL/min/1.73m2 Mildly to moderately decreased 45 - 59 mL/min/1.73m2 Moderately to severely decreased 30 - 44 mL/min/1.73m2 Severely decreased 15 - 29 mL/min/1.73m2 Kidney Failure < 15 mL/min/1.73m2 *Relative to young adult level Estimated glomerular filtration rate is determined by the 2020 CKD-EPI equation recommended by the National Kidney Foundation (A Unifying Approach to GFR Estimation: Recommendations of the NKF-ASK Task Force on Reassessing the Inclusion of Race in Diagnosing Kidney Disease, JASN 2020). The CKD-EPI equation should not be used for patients with unstable renal function and has not been validated in children and those over 70. Current interpretive data was last reviewed 2021. Testing performed by: [address] [address] Blood 01/04/2025 7:27 AM CDT 01/04/2025 7:34 AM CDT us Rasta Garcia MD LAB BLOOD ORDERABLES Final Res ult Performing Organization Address [facility] Co de Phone Number KENYETTA[address] [place] [address] * (ABNORMAL) Reticulocyte Count (01/04/2025 7:27 AM CDT) Retics, absolute 532(H) 20 - 87 K/cumm Comment:Testing performed by : [address] [address] Retics 19.3(H) 0.4 - 2.9 % [facility] Comment:Testing performed by : [address] [address] Reticulocyte Hgb 34.7 30.5 - 38.0 pg [facility] SHETTY Comment:Testing performed by : [address] [address] Blood 01/04/2025 7:27 AM CDT 01/04/2025 7:34 AM CDT us Rasta Garcia MD LAB BLOOD ORDERABLES Final Res ult Performing Organization Address [facility] Co de Phone Number [address] [place] [address] * (ABNORMAL) CBC with auto differential (01/04/2025 7:27 AM CDT) Pathologist [facility] WBC 10.50(H) 3.80 - 9.90 K/cumm Comment:Testing performed by : [address] [address] Hgb 8.4(L) 13.0 - 17.5 g/dL [facility] SHETTY Comment:Testing performed by : [address] [address] Hct 25.3(L) 38.9 - 50.3 % [facility] SHETTY Comment:Testing performed by : [address] [address] Plt 299 150 - 400 K/cumm [facility] SHETTY Comment:Testing performed by : [address] [address] MPV 9.8 9.1 - 12.3 fL [facility] Comment:Testing performed by : [address] [address] RBC 2.76(L) 4.30 - 5.80 M/cumm [facility] SHETTY Comment:Testing performed by : [address] [address] MCV 91.7 81.3 - 96.4 fL [facility] Comment:Testing performed by : [address] [address] MCH 30.4 27.1 - 33.3 pg [facility] Comment:Testing performed by : [address], [address] MCHC 33.2 32.3 - 35.7 g/dL [facility] Comment:Testing performed by : [address], [address] RDW CV 23.3(H) 11.1 - 14.9 % [facility] Comment:Testing performed by : [address], [address] RDW SD 74.0(H) 35.7 - 48.1 fL [facility] Comment:Testing performed by : [address] [address] NRBC abs 0.21(H) 0.00 - 0.01 K/cumm [facility] Comment:Testing performed by : [address], [address] Blood 01/04/2025 7:27 AM CDT 01/04/2025 7:34 AM CDT us Rasta Garcia MD LAB BLOOD ORDERABLES Final Res ult [facility] [address] [facility] Department of Laboratories [place], [place] [id number] * (ABNORMAL) Basic metabolic panel (01/04/2025 7:27 AM CDT) Sodium 137 135 - 145 mmol/L Comment:Testing performed by : [address] [address] Potassium, pl 3.5 3.3 - 4.9 mmol/L [facility] Comment:Testing performed by : [address] [address] Chloride 100 97 - 110 mmol/L [facility] Comment:Testing performed by : [address], [place]., [address] CO2 25 22 - 32 mmol/L [facility] Comment:Testing performed by : [address], [place]., [address] Anion gap 12 2 - 15 mmol/L [facility] Comment:Testing performed by : [address] [address] BUN 2(L) 6 - 25 mg/dL [facility] Comment:Testing performed by : [address], [place]., [address] Creatinine 0.49(L) 0.80 - 1.30 mg/dL [facility] Comment:Testing performed by : [address] [address] Glucose 106 70 - 199 mg/dL [facility] Comment: Interpretive Data Fasting glucose >/= 126 mg/dl is diagnostic for diabetes. Fasting is defined as no caloric intake for at least 8 hours. Fasting glucose between 100 mg/dl to 125 mg/dl is diagnostic of prediabetes. In a patient with classic symptoms of hyperglycemia or hyperglycemic crisis, a random glucose >/= 200 mg/dl is diagnostic for diabetes. In the absence of unequivocal hyperglycemia, results should be confirmed by repeat testing. The classification and Diagnosis of Diabetes Diabetes Care 2021; 46: S19-S40. Current interpretive data was last revised 2022. Testing performed by: [address] [address] Calcium 9.1 8.5 - 10.3 mg/dL [facility] Comment:Testing performed by : [address] [address] Blood 01/04/2025 7:27 AM CDT 01/04/2025 7:34 AM CDT us Rasta Garcia MD LAB BLOOD ORDERABLES Final Res ult Performing Organization Address City/[facility]/ZIP Co de Phone Number [facility] [address] [facility] [place] [address] * (ABNORMAL) Blood smear review (01/03/2025 7:30 AM CDT) RBC morphology Present(A) Comment:Testing performed by : [address] [address] Polychromasia 3-7/HPF(A) [facility] Comment:Testing performed by : [address] [address] Anisocytosis Slight(A) [facility] Comment:Testing performed by : [address] [address] Poikilocytosis Slight(A) [facility] Comment:Testing performed by : [address] [address] Sickle cells 1-2/HPF(A) [facility] Comment:Testing performed by : [address], [place]., [address] Elliptocytes 3-7/HPF(A) [facility] Comment:Testing performed by : [address], [place]., [address] Target cells 3-7/HPF(A) [facility] Comment:Testing performed by : [address] [address] Platelet estimate Adequate [facility] Comment:Testing performed by : [address] [address] Blood 01/03/2025 7:30 AM CDT 01/03/2025 7:44 AM CDT us Rasta Garcia MD LAB BLOOD ORDERABLES Final Res ult Performing Organization Address City/[facility]/ZIP Co de Phone Number [facility] [address] [facility] [place] [address] * eGFR (01/03/2025 7:30 AM CDT) Pathologist [facility] eGFR >90 >=60 mL/min/1. 73 m2 Comment: Interpretive Data Reference Interval Normal >/= 90 mL/min/1.73m2 Mildly decreased* 60 - 89 mL/min/1.73m2 Mildly to moderately decreased 45 - 59 mL/min/1.73m2 Moderately to severely decreased 30 - 44 mL/min/1.73m2 Severely decreased 15 - 29 mL/min/1.73m2 Kidney Failure < 15 mL/min/1.73m2 *Relative to young adult level Estimated glomerular filtration rate is determined by the 2020 CKD-EPI equation recommended by the National Kidney Foundation (A Unifying Approach to GFR Estimation: Recommendations of the NKF-ASK Task Force on Reassessing the Inclusion of Race in Diagnosing Kidney Disease, JASN 2020). The CKD-EPI equation should not be used for patients with unstable renal function and has not been validated in children and those over 70. Current interpretive data was last reviewed 2021. Testing performed by: [address] [address] Blood 01/03/2025 7:30 AM CDT 01/03/2025 7:44 AM CDT us Rasta Garcia MD LAB BLOOD ORDERABLES Final Res ult [facility] [address] [facility] [place] [address] * (ABNORMAL) Differential, auto (01/03/2025 7:30 AM CDT) Pathologist [facility] Neutrophil abs 5.76 1.50 - 6.50 K/cumm Comment:Testing performed by : [address] [address] Imm gran abs 0.13(H) 0.00 - 0.10 K/cumm [facility] SHETTY Comment:Testing performed by : [address] [address] Lymphocyte abs 3.10 0.80 - 3.30 K/cumm [facility] Comment:Testing performed by : [address] [address] Monocyte abs 0.98(H) 0.20 - 0.80 K/cumm [facility] Comment:Testing performed by : [address] [address] Eosinophil abs 0.21 0.00 - 0.50 K/cumm [facility] Comment:Testing performed by : [address] [address] Basophil abs 0.07 0.00 - 0.10 K/cumm [facility] Comment:Testing performed by : [address] [address] Neutrophil pct 56.2 % [facility] Comment: Interpretive Data Percent cell count reference ranges are not reported, since discordance with absolute values may lead to misinterpretation of CBC data. Current Interpretive Data was last revised on 2017. Testing performed by: [address] [address] Imm gran pct 1.3 % [facility] Comment: Interpretive Data Percent cell count reference ranges are not reported, since discordance with absolute values may lead to misinterpretation of CBC data. Current Interpretive Data was last revised on 2017. Testing performed by: [address] [address] Lymphocyte pct 30.2 % [facility] Comment: Interpretive Data Percent cell count reference ranges are not reported, since discordance with absolute values may lead to misinterpretation of CBC data. Current Interpretive Data was last revised on 2017. Testing performed by: [address] [address] Monocyte pct 9.6 % [facility] Comment: Interpretive Data Percent cell count reference ranges are not reported, since discordance with absolute values may lead to misinterpretation of CBC data. Current Interpretive Data was last revised on 2017. Testing performed by: [address] [address] Eosinophil pct 2.0 % [facility] Comment: Interpretive Data Percent cell count reference ranges are not reported, since discordance with absolute values may lead to misinterpretation of CBC data. Current Interpretive Data was last revised on 2017. Testing performed by: [address] [address] Basophil pct 0.7 % [facility] SHETTY Comment: Interpretive Data Percent cell count reference ranges are not reported, since discordance with absolute values may lead to misinterpretation of CBC data. Current Interpretive Data was last revised on 2017. Testing performed by: [address] [address] Blood 01/03/2025 7:30 AM CDT 01/03/2025 7:44 AM CDT us Rasta Garcia MD LAB BLOOD ORDERABLES Final Res ult Performing Organization Address [facility] de Phone Number L[facility] [address] [place] [address] * (ABNORMAL) Reticulocyte Count (01/03/2025 7:30 AM CDT) Pathologist [facility] Retics, absolute 471(H) 20 - 87 K/cumm Comment:Testing performed by : [address] [address] Retics 18.5(H) 0.4 - 2.9 % [facility] SHETTY Comment:Testing performed by : [address] [address] Reticulocyte Hgb 31.1 30.5 - 38.0 pg [facility] SHETTY Comment:Testing performed by : [address] [address] Blood 01/03/2025 7:30 AM CDT 01/03/2025 7:44 AM CDT us Rasta Garcia MD LAB BLOOD ORDERABLES Final Res ult Performing Organization Address [facility] de Phone Number [facility] [place] [address] * (ABNORMAL) CBC with auto differential (01/03/2025 7:30 AM CDT) WBC 10.25(H) 3.80 - 9.90 K/cumm Comment:Testing performed by : [address] [address] Hgb 7.7(L) 13.0 - 17.5 g/dL [facility] Comment:Testing performed by : [address] [address] Hct 22.5(L) 38.9 - 50.3 % [facility] Comment:Testing performed by : [address] [address] Plt 350 150 - 400 K/cumm [facility] Comment:Testing performed by : [address] [address] MPV 10.1 9.1 - 12.3 fL [facility] Comment:Testing performed by : [address] [address] RBC 2.55(L) 4.30 - 5.80 M/cumm [facility] Comment:Testing performed by : [address] [address] MCV 88.2 81.3 - 96.4 fL [facility] Comment:Testing performed by : [address] [address] MCH 30.2 27.1 - 33.3 pg [facility] Comment:Testing performed by : [address] [address] MCHC 34.2 32.3 - 35.7 g/dL [facility] Comment:Testing performed by : [address] [address] RDW CV 22.1(H) 11.1 - 14.9 % [facility] Comment:Testing performed by : [address] [address] RDW SD 67.4(H) 35.7 - 48.1 fL [facility] Comment:Testing performed by : [address] [address] NRBC abs 0.35(H) 0.00 - 0.01 K/cumm [facility] Comment:Testing performed by : [address] [address] Blood 01/03/2025 7:30 AM CDT 01/03/2025 7:44 AM CDT us Rasta Garcia MD LAB BLOOD ORDERABLES Final Res ult [facility] MARYVALEALEJANDRA [address] [facility] [place] [address] * (ABNORMAL) Basic metabolic panel (01/03/2025 7:30 AM CDT) Sodium 138 135 - 145 mmol/L Comment:Testing performed by : [address] [address] Potassium, pl 3.5 3.3 - 4.9 mmol/L [facility] Comment:Testing performed by : [address] [address] Chloride 101 97 - 110 mmol/L [facility] Comment:Testing performed by : [address] [address] CO2 26 22 - 32 mmol/L [facility] Comment:Testing performed by : [address] [address] Anion gap 11 2 - 15 mmol/L [facility] Comment:Testing performed by : [address] [address] BUN <2(L) 6 - 25 mg/dL [facility] Comment:Testing performed by : [address] [address] Creatinine 0.50(L) 0.80 - 1.30 mg/dL [facility] Comment:Testing performed by : [address] [address] Glucose 106 70 - 199 mg/dL [facility] Comment: Interpretive Data Fasting glucose >/= 126 mg/dl is diagnostic for diabetes. Fasting is defined as no caloric intake for at least 8 hours. Fasting glucose between 100 mg/dl to 125 mg/dl is diagnostic of prediabetes. In a patient with classic symptoms of hyperglycemia or hyperglycemic crisis, a random glucose >/= 200 mg/dl is diagnostic for diabetes. In the absence of unequivocal hyperglycemia, results should be confirmed by repeat testing. The classification and Diagnosis of Diabetes Diabetes Care 202; 46: S19-S40. Current interpretive data was last revised 2022. Testing performed by: [facility], [address] [place] [address]., [address] Calcium 8.8 8.5 - 10.3 mg/dL [facility] Comment:Testing performed by : [address] [address] Blood 01/03/2025 7:30 AM CDT 01/03/2025 7:44 AM CDT us Rasta Garcia MD LAB BLOOD ORDERABLES Final Res ult Performing Organization Address [facility] Co de Phone Number [facility] [address] [facility] [place] [address] * Troponin T high-sensitivity 4-hour (01/01/2025 4:09 AM CDT) Pathologist [facility] Trop T hs <6 <=22 ng/L Comment: Interpretive Data For further hscTnT resources including the diagnostic algorithm and an aid in interpretation, copy and paste this link: [email or web address].testcatalog.org/show/hsTrop Current Interpretive Data last revised 2020. Testing performed by: [address] [address] Trop T hs delta -2 ng/L [facility] Comment:Testing performed by : [address] [address] Trop T hs interp Insignificant [facility] Comment:Testing performed by : [address] [address] Blood 01/01/2025 4:09 AM CDT 01/01/2025 4:16 AM CDT us Bill Carrasquillo DO LAB BLOOD ORDERABLES Final Res ult Performing Organization Address City/[facility]/ZIP Co de Phone Number [facility] [address] [facility] [place] [address] * XR Chest 1 Vw Portable (01/01/2025 12:19 AM CDT) Anatomical Region Laterality Modality Body, Chest N/A Computed Radiogr aphy 01/01/2025 12:2 3 AM CDT Narrative 01/01/2025 12:25 AM CDT EXAM DESCRIPTION: XR CHEST 1 VIEW REASON FOR STUDY: cp Sickle cells pain x 3 days with chest, leg and foot pain TECHNIQUE: Portable upright AP view of the chest. COMPARISON: 12/23/2024 FINDINGS: LUNGS AND PLEURA: Vascular congestion less severe compared to the prior. No focal opacity, large effusion, or pneumothorax is seen. HEART/MEDIASTINUM: Trachea midline. Cardiac silhouette normal in size. Mediastinal contours appear normal. BONES: Shoulder arthritis. CHEST WALL: Unremarkable. UPPER ABDOMEN: Unremarkable. IMPRESSION: Vascular congestion less severe compared to 12/23/2024. No focal opacity is seen. THIS IS AN ELECTRONICALLY VERIFIED FINAL REPORT 01/01/2025 12:25 AM - Electronically signed by Andrew Stubbs M.D. AR: TOREY Report ID: [id number] Reading Location: [id number] Procedure Note Andrew Stubbs MD - 01/01/2025 EXAM DESCRIPTION: XR CHEST 1 VIEW REASON FOR STUDY: cp Sickle cells pain x 3 days with chest, leg and foot pain TECHNIQUE: Portable upright AP view of the chest. COMPARISON: 12/23/2024 FINDINGS: LUNGS AND PLEURA: Vascular congestion less severe compared tothe prior. No focal opacity, large effusion, or pneumothorax is seen. HEART/MEDIASTINUM: Trachea midline. Cardiac silhouette normal in size. Mediastinal contours appear normal. BONES: Shoulder arthritis. CHEST WALL: Unremarkable. UPPER ABDOMEN: Unremarkable. IMPRESSION: Vascular congestion less severe compared to 12/23/2024. Nofocal opacity is seen. THIS IS AN ELECTRONICALLY VERIFIED FINAL REPORT 01/01/2025 12:25 AM - Electronically signed by Andrew Stubbs M.D. AR: AR Report ID: [id number] Reading Location: [id number] us Bill Carrasquillo DO IMG XR PROCEDURES Final Result * eGFR (12/31/2024 11:57 PM CDT) eGFR >90 >=60 mL/min/1. 73 m2 Comment: Interpretive Data Reference Interval Normal >/= 90 mL/min/1.73m2 Mildly decreased* 60 - 89 mL/min/1.73m2 Mildly to moderately decreased 45 - 59 mL/min/1.73m2 Moderately to severely decreased 30 - 44 mL/min/1.73m2 Severely decreased 15 - 29 mL/min/1.73m2 Kidney Failure < 15 mL/min/1.73m2 *Relative to young adult level Estimated glomerular filtration rate is determined by the 2020 CKD-EPI equation recommended by the National Kidney Foundation (A Unifying Approach to GFR Estimation: Recommendations of the NKF-ASK Task Force on Reassessing the Inclusion of Race in Diagnosing Kidney Disease, JASN 2020). The CKD-EPI equation should not be used for patients with unstable renal function and has not been validated in children and those over 70. Current interpretive data was last reviewed 2021. Testing performed by: [address] [address] Blood 12/31/2024 11:5 7 PM CDT 01/01/2025 12:09 AM CDT Bill Carrasquillo DO LAB BLOOD ORDERABLES Final Res ult [facility] [address] [facility] [place] [address] * (ABNORMAL) Differential, auto (12/31/2024 11:57 PM CDT) Neutrophil abs 6.19 1.50 - 6.50 K/cumm Comment:Testing performed by : [address] [address] Imm gran abs 0.07 0.00 - 0.10 K/cumm [facility] Comment:Testing performed by : [address], [place]., [address] Lymphocyte abs 4.31(H) 0.80 - 3.30 K/cumm [facility] Comment:Testing performed by : [address], [place]., [address] Monocyte abs 1.49(H) 0.20 - 0.80 K/cumm [facility] Comment:Testing performed by : [address], [place]., [address] Eosinophil abs 0.14 0.00 - 0.50 K/cumm [facility] [place]JANDRA Comment:Testing performed by : [address], [place]., [address] Basophil abs 0.08 0.00 - 0.10 K/cumm [facility] Comment:Testing performed by : [address] [address] Neutrophil pct 50.4 % [facility] Comment: Interpretive Data Percent cell count reference ranges are not reported, since discordance with absolute values may lead to misinterpretation of CBC data. Current Interpretive Data was last revised on 2017. Testing performed by: [address] [address] Imm gran pct 0.6 % [facility] Comment: Interpretive Data Percent cell count reference ranges are not reported, since discordance with absolute values may lead to misinterpretation of CBC data. Current Interpretive Data was last revised on 2017. Testing performed by: [address] [address] Lymphocyte pct 35.1 % [facility] Comment: Interpretive Data Percent cell count reference ranges are not reported, since discordance with absolute values may lead to misinterpretation of CBC data. Current Interpretive Data was last revised on 2017. Testing performed by: [address] [address] Monocyte pct 12.1 % [facility] Comment: Interpretive Data Percent cell count reference ranges are not reported, since discordance with absolute values may lead to misinterpretation of CBC data. Current Interpretive Data was last revised on 2017. Testing performed by: [address] [address] Eosinophil pct 1.1 % [facility] Comment: Interpretive Data Percent cell count reference ranges are not reported, since discordance with absolute values may lead to misinterpretation of CBC data. Current Interpretive Data was last revised on 2017. Testing performed by: [address] [address] Basophil pct 0.7 % [facility] Comment: Interpretive Data Percent cell count reference ranges are not reported, since discordance with absolute values may lead to misinterpretation of CBC data. Current Interpretive Data was last revised on 2017. Testing performed by: [address] [address] Blood 12/31/2024 11:5 7 PM CDT 01/01/2025 12:09 AM CDT [employer] LAB BLOOD ORDERABLES Final Res ult Performing Organization Address [facility] Co de Phone Number [address] [place] [address] * Troponin T high-sensitivity series (baseline, 2hr, 4hr, 6hr) (12/31/2024 11:57 PM CDT) Trop T hs 8 <=22 ng/L Comment: Interpretive Data For further hscTnT resources including the diagnostic algorithm and an aid in interpretation, copy and paste this link: [email or web address] Current Interpretive Data last revised 2020. Testing performed by: [address] [address] Blood 12/31/2024 11:5 7 PM CDT 01/01/2025 12:09 AM CDT [employer] LAB BLOOD ORDERABLES Final Res ult Performing Organization Address City/[facility]/ZIP Co de Phone Number [address] [place] [address] * (ABNORMAL) Reticulocyte Count (12/31/2024 11:57 PM CDT) [facility] Retics, absolute 410(H) 20 - 87 K/cumm Comment:Testing performed by : [address] [address] Retics 15.5(H) 0.4 - 2.9 % [facility] Comment:Testing performed by : [address] [address] Reticulocyte Hgb 30.8 30.5 - 38.0 pg [facility] Comment:Testing performed by : [address] [address] Blood 12/31/2024 11:5 7 PM CDT 01/01/2025 12:09 AM CDT us Bill Carrasquillo DO LAB BLOOD ORDERABLES Final Res ult [facility] [place] [address] * (ABNORMAL) Comprehensive metabolic panel (12/31/2024 11:57 PM CDT) [facility] Sodium 137 135 - 145 mmol/L Comment:Testing performed by : [address] [address] Potassium, pl 3.2(L) 3.3 - 4.9 mmol/L [facility] Comment:Testing performed by : [address] [address] Chloride 103 97 - 110 mmol/L [facility] Comment:Testing performed by : [address] [address] CO2 23 22 - 32 mmol/L [facility] Comment:Testing performed by : [address] [address] Anion gap 11 2 - 15 mmol/L [facility] Comment:Testing performed by : [address] [address] BUN 4(L) 6 - 25 mg/dL [facility] SHETTY Comment:Testing performed by : [address] [address] Creatinine 0.60(L) 0.80 - 1.30 mg/dL [facility] Comment:Testing performed by : [address] [address] Glucose 115 70 - 199 mg/dL [facility] Comment: Interpretive Data Fasting glucose >/= 126 mg/dl is diagnostic for diabetes. Fasting is defined as no caloric intake for at least 8 hours. Fasting glucose between 100 mg/dl to 125 mg/dl is diagnostic of prediabetes. In a patient with classic symptoms of hyperglycemia or hyperglycemic crisis, a random glucose >/= 200 mg/dl is diagnostic for diabetes. In the absence of unequivocal hyperglycemia, results should be confirmed by repeat testing. The classification and Diagnosis of Diabetes Diabetes Care 2021; 46: S19-S40. Current interpretive data was last revised 2022. Testing performed by: [address] [address] Calcium 9.1 8.5 - 10.3 mg/dL [facility] Comment:Testing performed by : [address] [address] Bilirubin, total 5.6(H) 0.1 - 1.2 mg/dL [facility] Comment:Testing performed by : [address] [address] Protein, pl 7.9 6.5 - 8.5 g/dL [facility] Comment:Testing performed by : [address] [address] Albumin 4.1 3.5 - 5.0 g/dL [facility] Comment:Testing performed by : [address] [address] Alk phos 353(H) 40 - 130 Units/L [facility] [place] Comment:Testing performed by : [address] [address] ALT 27 7 - 55 Units/L [facility] [place] Comment:Testing performed by : [address] [address] AST 53(H) 10 - 50 Units/L [facility] [place] Comment:Testing performed by : [address] [address] Blood 12/31/2024 11:5 7 PM CDT 01/01/2025 12:09 AM CDT us Bill Carrasquillo DO LAB BLOOD ORDERABLES Final Res ult [facility] [address] [facility] [place] [address] * (ABNORMAL) CBC with auto differential (12/31/2024 11:57 PM CDT) WBC 12.28(H) 3.80 - 9.90 K/cumm Comment:Testing performed by : [address] [address] Hgb 7.8(L) 13.0 - 17.5 g/dL [facility] Comment:Testing performed by : [address] [address] Hct 23.2(L) 38.9 - 50.3 % [facility] Comment:Testing performed by : [address] [address] Plt 277 150 - 400 K/cumm [facility] Comment:Testing performed by : [address] [address] MPV 10.0 9.1 - 12.3 fL [facility] Comment:Testing performed by : [address] [address] RBC 2.65(L) 4.30 - 5.80 M/cumm [facility] Comment:Testing performed by : [address] [address] MCV 87.5 81.3 - 96.4 fL [facility] Comment:Testing performed by : [address] [address] MCH 29.4 27.1 - 33.3 pg [facility] SHETTY Comment:Testing performed by : [address] [address] MCHC 33.6 32.3 - 35.7 g/dL [facility] SHETTY Comment:Testing performed by : [facility], [address] [place] [address]., [address] RDW CV 20.6(H) 11.1 - 14.9 % [facility] Comment:Testing performed by : [address] [address] RDW SD 64.0(H) 35.7 - 48.1 fL [facility] Comment:Testing performed by : [address] [address] NRBC abs 0.06(H) 0.00 - 0.01 K/cumm [facility] Comment:Testing performed by : [address] [address] Morphologic Screen Results confirmed by manual morphology review. [facility] Comment:Testing performed by : [address] [address] Blood 12/31/2024 11:5 7 PM CDT 01/01/2025 12:09 AM CDT us Bill Carrasquillo DO LAB BLOOD ORDERABLES Final Res ult [facility] [address] [facility] [place] [address] * ECG 12 lead (12/31/2024 11:51 PM CDT) Ventricular Rate EKG/Min [address] [facility] Atrial Rate [address] [facility] [place]-Interval (MSEC) [address] [facility] QRS-Interval (MSEC) [address] [facility] QT-Interval (MSEC) [address] [facility] QTc [address] [facility] P [place] [address] [facility] R [place] [address] [facility] T [place] [address] [facility] Diagnosis Sinus tachycardia Otherwise normal ECG When compared with ECG of 22-DEC-2024 13:08, Nonspecific T wave abnormality no longer evident in Lateral leads Confirmed by Rodrigue Fonseca M.D. ([id number]) on 01/03/2025 8:51:05 AM [facility] 12/31/2024 11:5 1 PM CDT 01/03/2025 8:51 AM CDT Bill Jose Rafaeltrevin ECG ORDERABLES Final Result [facility] documented in this encounter Visit Diagnoses Diagnosis Acute sickle cell crisis (HCC)- Primary Acute sickle cell crisis (HCC) documented in this encounter Admitting Diagnoses Diagnosis Acute sickle cell crisis (HCC) documented in this encounter Administered Medications Inactive Administered Medications - up to 3 most recent administrations Medication Order MAR Action Action Date Dose Rate Site azithromycin (ZITHROMAX) tablet 500 mg 500 mg, oral, Daily, First dose on Fri01/12/25 at 1015, For 3 days, Indications: Pneumonia, Community AcquiredIndications:Pneumonia, Community Acquired Given 01/12/2025 10:30 AM CDT 500 mg benzonatate (TESSALON) capsule 100 mg 100 mg, oral, 3 times daily, First dose on Fri01/11/25 at 1600, Do not crush, chew, cut, dissolve, open or otherwise manipulate tablet/capsule., Indications: CoughIndications:Cough Given 01/13/2025 11:39 PM CDT 100 mg diphenhydrAMINE (BENADRYL) tab/cap 25 mg 25 mg, oral, 4 times daily PRN, itching, allergies, Starting on 01/01/25 at 0420 Given 01/02/2025 12:52 PM CDT 25 mg diphenhydrAMINE (BENADRYL) tab/cap 50 mg 50 mg, oral, Once, On 01/01/25 at 0116, For 1 dose Given 01/01/2025 1:26 AM CDT 50 mg folic acid (FOLVITE) tablet 1 mg 1 mg, oral, Daily, First dose on 01/01/25 at 0900, Each tablet contains 1 mg of folic acid (1.67 mg DFE)., Indications: To prevent folic acid deficiency sickle cell diseaseIndications:To prevent folic acid deficiency sickle cell disease Given 01/18/2025 10:36 AM CDT 1 mg Given 01/17/2025 9:33 AM CDT 1 mg Given 01/16/2025 10:37 AM CDT 1 mg guaiFENesin ER (MUCINEX) extended release tablet 600 mg 600 mg, oral, 2 times daily, First dose on Tu01/11/25 at 1315, Do not crush, chew, cut, dissolve, open or otherwise manipulate tablet/capsule. Given 01/17/2025 9:32 AM CDT 600 mg Given 01/13/2025 11:39 PM CDT 600 mg Given 01/11/2025 1:12 PM CDT 600 mg hydrocortisone (CORTEF) tablet 10 mg 10 mg, oral, Daily, First dose on 01/01/25 at 0900 Given 01/17/2025 9:33 AM CDT 10 mg Given 01/16/2025 10:37 AM CDT 10 mg Given 01/15/2025 9:58 AM CDT 10 mg hydrocortisone (CORTEF) tablet 5 mg 5 mg, oral, Nightly, First dose on 01/01/25 at 2100 Given 01/17/2025 8:36 PM CDT 5 mg Given 01/15/2025 8:50 PM CDT 5 mg Given 01/14/2025 8:48 PM CDT 5 mg HYDROmorphone (DILAUDID) injection 1 mg 1 mg, intravenous, Administer over 2 Minutes, Every 3 hours PRN, 2nd line for pain, Starting on 01/01/25 at 0420 Given 01/01/2025 9:58 AM CDT 1 mg Given 01/01/2025 4:52 AM CDT 1 mg HYDROmorphone (DILAUDID) injection 1 mg 1 mg, intravenous, Administer over 2 Minutes, Once, On [place]ara 01/06/25 at 1930, For 1 dose Given 01/06/2025 7:04 PM CDT 1 m g HYDROmorphone (DILAUDID) injection 1 mg 1 mg, intravenous, Administer over 2 Minutes, Every 3 hours PRN, breakthrough pain, Starting on 01/16/25 at 1600 Given 01/18/2025 10:56 AM CDT 1 mg Given 01/18/2025 7:51 AM CDT 1 mg Given 01/18/2025 4:33 AM CDT 1 mg HYDROmorphone (DILAUDID) injection 2 mg 2 mg, intravenous, Administer over 2 Minutes, Once, On 01/01/25 at 0111, For 1 dose Given 01/01/2025 1:30 AM CDT 2 mg HYDROmorphone (DILAUDID) injection 2 mg 2 mg, intravenous, Administer over 2 Minutes, Once, On 01/01/25 at 0228, For 1 dose Given 01/01/2025 2:34 AM CDT 2 mg HYDROmorphone (DILAUDID) injection 2 mg 2 mg, intravenous, Administer over 2 Minutes, Every 3 hours PRN, 3rd line for pain, Starting on 01/01/25 at 0420 Given 01/01/2025 11:54 AM CDT 2 mg Given 01/01/2025 8:35 AM CDT 2 mg Given 01/01/2025 5:23 AM CDT 2 mg HYDROmorphone (DILAUDID) injection 2 mg 2 mg, intravenous, Administer over 2 Minutes, Every 2 hours PRN, breakthrough pain, Starting on 01/01/25 at 1310 Given 01/06/2025 10:17 AM CDT 2 mg Given 01/06/2025 8:19 AM CDT 2 mg Given 01/06/2025 6:19 AM CDT 2 mg HYDROmorphone (DILAUDID) injection 2 mg 2 mg, intravenous, Administer over 2 Minutes, Every 2 hours PRN, breakthrough pain, Starting on Fara 01/06/25 at 1140 Given 01/06/2025 4:44 PM CDT 2 mg Given 01/06/2025 2:39 PM CDT 2 mg Given 01/06/2025 12:34 PM CDT 2 mg HYDROmorphone (DILAUDID) injection 2 mg 2 mg, intravenous, Administer over 2 Minutes, Every 3 hours PRN, breakthrough pain, Starting on Fara 01/06/25 at 1759 Given 01/08/2025 6:09 PM CDT 2 mg Given 01/08/2025 3:40 PM CDT 2 mg Given 01/08/2025 12:43 PM CDT 2 mg HYDROmorphone (DILAUDID) injection 2 mg 2 mg, intravenous, Administer over 2 Minutes, Every 3 hours PRN, breakthrough pain, Starting on 01/10/25 at 2000 Given 01/15/2025 5:37 AM CDT 2 mg Given 01/15/2025 2:19 AM CDT 2 mg Given 01/14/2025 10:34 PM CDT 2 mg HYDROmorphone (DILAUDID) injection 2 mg 2 mg, intravenous, Administer over 2 Minutes, Every 3 hours PRN, breakthrough pain, Starting on 01/15/25 at 0827 Given 01/16/2025 12:27 PM CDT 2 mg Given 01/16/2025 9:25 AM CDT 2 mg Given 01/16/2025 6:02 AM CDT 2 mg HYDROmorphone (DILAUDID) injection 2 mg 2 mg, intravenous, Administer over 2 Minutes, Every 3 hours PRN, breakthrough pain, Starting on 01/16/25 at 1233, For 4 hours Given 01/16/2025 3:34 PM CDT 2 mg HYDROmorphone (DILAUDID) injection 2.5 mg 2.5 mg, intravenous, Administer over 2 Minutes, Every 3 hours PRN, breakthrough pain, Starting on 01/08/25 at 1824 Given 01/10/2025 1:10 PM CDT 2.5 mg Given 01/10/2025 10:05 AM CDT 2.5 mg Given 01/10/2025 7:06 AM CDT 2.5 mg HYDROmorphone (DILAUDID) injection 2.5 mg 2.5 mg, intravenous, Administer over 2 Minutes, Every 3 hours PRN, breakthrough pain, Starting on 01/10/25 at 1600, For 4 hours Given 01/10/2025 7:06 PM CDT 2.5 mg Given 01/10/2025 4:17 PM CDT 2.5 mg ketorolac (TORADOL) 30 mg/mL injection 30 mg 30 mg, intravenous, Once, On 01/01/25 at 0116, For 1 dose, For Adult IV push, administer over 15 seconds Given 01/01/2025 1:28 AM CDT 30 mg Lactated Ringer's (LR) infusion 75 mL/hr, intravenous, Continuous, Starting on 01/01/25 at 1115, For 2 days New Bag 01/03/2025 8:01 AM CDT 75 mL/hr 75 mL/hr New Bag 01/02/2025 3:16 PM CDT 75 mL/hr 75 mL/hr New Bag 01/02/2025 1:00 PM CDT 75 mL/hr 75 mL/hr Lactated Ringer's (LR) infusion 75 mL/hr, intravenous, Continuous, Starting on 01/02/25 at 1530, For 2 days New Bag 01/03/2025 9:45 PM CDT 75 mL/hr 75 mL/hr New Bag 01/02/2025 3:16 PM CDT 75 mL/hr 75 mL/hr ondansetron (ZOFRAN) injection 4 mg 4 mg, intravenous, Administer over 2 Minutes, Once, On 01/01/25 at 0111, For 1 dose Given 01/01/2025 1:25 AM CDT 4 mg ondansetron (ZOFRAN) injection 4 mg 4 mg, intravenous, Administer over 2 Minutes, Every 6 hours PRN, nausea, vomiting, if not tolerating PO, Starting on 01/01/25 at 0420, Indications: Nausea and VomitingIndications:Nausea and Vomiting Given 01/08/2025 11:30 AM CDT 4 m g ondansetron ODT (ZOFRAN-ODT) disintegrating tablet 4 mg 4 mg, oral, Every 6 hours PRN, nausea, vomiting, Starting on 01/01/25 at 0420, If administering by mouth, place tablet on tongue and allow to dissolve., Indications: Nausea and VomitingIndications:Nausea and Vomiting oxyCODONE ER (OxyCONTIN) extended release tablet 10 mg 10 mg, oral, Every 12 hours scheduled, First dose on Fri01/12/25 at 1115, Do not crush, chew, cut, dissolve, open or otherwise manipulate tablet/capsule. Given 01/14/2025 8:48 PM CDT 10 mg Given 01/14/2025 11:44 AM CDT 10 mg Given 01/13/2025 9:14 AM CDT 10 mg oxyCODONE ER (OxyCONTIN) extended release tablet 10 mg 10 mg, oral, Every 12 hours scheduled, First dose (after last modification) on 01/15/25 at 0900, Do not crush, chew, cut, dissolve, open or otherwise manipulate tablet/capsule. Given 01/16/2025 10:3 7 AM CDT 10 mg Given 01/15/2025 8:50 PM CDT 10 mg Given 01/15/2025 9:57 AM CDT 10 mg oxyCODONE-acetaminophen (PERCOCET) 10-325 mg per tablet 1 tablet 1 tablet, oral, 4 times daily PRN, 1st line for pain, Starting on Fri01/01/25 at 0420, Indications: Pain, Sickle cell painIndications:Pain,Sickle cell pain Given 01/01/2025 4:52 AM CDT 1 tabl et oxyCODONE-acetaminophen (PERCOCET) 10-325 mg per tablet 2 tablet 2 tablet, oral, 4 times daily PRN, 1st line for pain, Starting on Fri01/01/25 at 1030, Indications: Pain, Sickle cell painIndications:Pain,Sickle cell pain Given 01/04/2025 9:18 AM CDT 2 tabl ets Given 01/03/2025 4:35 PM CDT 2 tablets Given 01/03/2025 6:10 AM CDT 2 tablets oxyCODONE-acetaminophen (PERCOCET) 10-325 mg per tablet 3 tablet 3 tablet, oral, Every 8 hours PRN, 1st line for pain, Starting on Fri01/04/25 at 1249, Indications: Pain, Sickle cell painIndications:Pain,Sickle cell pain Given 01/07/2025 7:19 AM CDT 3 tabl ets Given 01/06/2025 10:05 PM CDT 3 tablets Given 01/06/2025 1:35 PM CDT 3 tablets oxyCODONE-acetaminophen (PERCOCET) 10-325 mg per tablet 3 tablet 3 tablet, oral, Every 8 hours PRN, 1st line for pain, Starting on Fri01/07/25 at 1448, Indications: Pain, Sickle cell painIndications:Pain,Sickle cell pain Given 01/11/2025 12:09 PM CDT 3 tab lets Given 01/10/2025 8:18 PM CDT 3 tablets Given 01/10/2025 8:16 AM CDT 3 tablets oxyCODONE-acetaminophen (PERCOCET) 10-325 mg per tablet 3 tablet 3 tablet, oral, Every 6 hours PRN, 1st line for pain, Starting on Fri01/11/25 at 1243, Indications: Pain, Sickle cell painIndications:Pain,Sickle cell pain Given 01/17/2025 8:36 PM CDT 3 tabl ets Given 01/12/2025 2:32 PM CDT 3 tablets potassium chloride ER (KLOR-CON) extended release tablet 40 mEq 40 mEq, oral, Once, On 01/01/25 at 0304, For 1 dose, Do not crush, chew, cut, dissolve, open or otherwise manipulate tablet/capsule. Given 01/01/2025 3:13 AM CDT 40 mEq potassium chloride ER (KLOR-CON) extended release tablet 40 mEq 40 mEq, oral, Once, On Fri01/16/25 at 0800, For 1 dose, Do not crush, chew, cut, dissolve, open or otherwise manipulate tablet/capsule. Given 01/16/2025 10:37 AM CDT 40 mEq potassium chloride ER (KLOR-CON) extended release tablet 40 mEq 40 mEq, oral, Once, On 01/17/25 at 0915, For 1 dose, Do not crush, chew, cut, dissolve, open or otherwise manipulate tablet/capsule. Given 01/17/2025 9:32 AM CDT 40 mEq sodium chloride 0.45% infusion 100 mL/hr, intravenous, Continuous, Starting on 01/01/25 at 0500, For 1 day Rate/Dose Verify 01/01/2025 7:27 AM CDT 100 mL/hr 100 mL/hr New Bag 01/01/2025 5:23 AM CDT 100 mL/hr 100 mL/hr sodium chloride 0.9% bolus 1,000 mL 1,000 mL, intravenous, at 999 mL/hr, Administer over 1 Hours, Once, On 01/01/25 at 0111, For 1 dose New Bag 01/01/2025 1:24 AM CDT 1,000 mL 999 mL/hr sodium chloride 0.9% flush 0.5-20 mL 0.5-20 mL, intra-catheter, Every 8 hours scheduled, First dose on 01/01/25 at 0600, Flush volume based on line type and size. Given 01/18/2025 4:36 AM CDT 10 mL Given 01/17/2025 10:24 PM CDT 10 mL Given 01/17/2025 4:07 PM CDT 10 mL sodium chloride 0.9% flush 0.5-20 mL 0.5-20 mL, intra-catheter, As needed, line care, Starting on 01/01/25 at 0420, Flush volume based on line type and size. Flush before and after each use. Given 01/18/2025 10:56 AM CDT 10 mL Given 01/12/2025 7:57 PM CDT 10 mL Given 01/07/2025 8:35 AM CDT 10 mL sodium chloride 0.9% flush 10 mL 10 mL, intra-catheter, Every 12 hours scheduled, First dose on [facility] 01/02/25 at 2100, To saline lock: Flush with 10mL per lumen. Flush with 20mL after obtaining a blood sample in lumen utilized. Saline flush syringes are single lumen use, do not use same syringe on multiple lumens. Use postive pressure disconnect: pulsitile flush--> clamp--> then disconnect syringe. Given 01/06/2025 8:20 AM CDT 10 mL Given 01/05/2025 9:15 PM CDT 10 mL Given 01/04/2025 7:43 PM CDT 10 mL sodium chloride 0.9% flush 10 mL 10 mL, intra-catheter, Every 12 hours scheduled, First dose on [facility] 01/13/25 at 1015, To saline lock: Flush with 10mL per lumen. Flush with 20mL after obtaining a blood sample in lumen utilized. Saline flush syringes are single lumen use, do not use same syringe on multiple lumens. Use postive pressure disconnect: pulsitile flush--> clamp--> then disconnect syringe. Given 01/17/2025 9:00 PM CDT 10 mL Given 01/17/2025 9:49 AM CDT 10 mL Given 01/16/2025 9:40 PM CDT 10 mL sodium chloride 0.9% flush 10 mL 10 mL, intra-catheter, Every 12 hours scheduled, First dose on [facility] 01/13/25 at 1015, To saline lock: Flush with 10mL per lumen. Flush with 20mL after obtaining a blood sample in lumen utilized. Saline flush syringes are single lumen use, do not use same syringe on multiple lumens. Use postive pressure disconnect: pulsitile flush--> clamp--> then disconnect syringe. Given 01/18/2025 7:52 AM CDT 10 mL Given 01/17/2025 10:23 PM CDT 10 mL Given 01/17/2025 9:45 AM CDT 10 mL sodium chloride 0.9% flush 10-20 mL 10-20 mL, intra-catheter, As needed, line care, Starting on [facility] 01/13/25 at 0942, To saline lock: Flush with 10mL per lumen. Flush with 20mL after obtaining a blood sample in lumen utilized. Saline flush syringes are single lumen use, do not use same syringe on multiple lumens. Use postive pressure disconnect: pulsitile flush--> clamp--> then disconnect syringe. sodium chloride 0.9% flush 10-20 mL 10-20 mL, intra-catheter, As needed, line care, Starting on [facility] 01/13/25 at 0942, To saline lock: Flush with 10mL per lumen. Flush with 20mL after obtaining a blood sample in lumen utilized. Saline flush syringes are single lumen use, do not use same syringe on multiple lumens. Use postive pressure disconnect: pulsitile flush--> clamp--> then disconnect syringe. sodium chloride 0.9% flush 10-40 mL 10-40 mL, intra-catheter, Every 12 hours scheduled, First dose on Fri01/02/25 at 2100, To saline lock: Flush with 10mL per lumen. Flush with 20mL after obtaining a blood sample in lumen utilized. Saline flush syringes are single lumen use, do not use same syringe on multiple lumens. Use postive pressure disconnect: pulsitile flush--> clamp--> then disconnect syringe. Given 01/05/2025 9:16 PM CDT 10 mL Given 01/05/2025 8:45 AM CDT 10 mL Given 01/04/2025 7:43 PM CDT 10 mL sodium chloride 0.9% infusion 50 mL/hr, intravenous, Continuous, Starting on Fri01/07/25 at 1500 Rate/Dose Verify 01/15/2025 10:39 PM CDT 50 mL/hr 50 mL/hr New Bag 01/15/2025 10:38 PM CDT 50 mL/hr 50 mL/hr New Bag 01/15/2025 2:25 AM CDT 50 mL/hr 50 mL/hr sodium chloride 0.9% infusion 50 mL/hr, intravenous, Continuous, Starting on Fri01/16/25 at 1315, For 5 hours New Bag 01/16/2025 2:40 PM CDT 50 mL/hr 50 mL/hr documented in this encounter Discontinued Medications Medication Sig Discontinue Reason Start Date End Da te oxyCODONE-acetaminophe n (PERCOCET) 10-325 mg per tabletIndications:Pain ,Sickle cell pain Take 1 tablet every 6 hours as needed for severe pain. Stop Taking at Discharge 12/09/2024 01/18/2025 documented as of this encounter Active and Recently Administered Medications Times are shown in CDT. Scheduled Medication Order 01/16/2025 01/17/2025 01/18/2025 benzonatate (TESSALON) capsule 100 mg 100 mg, oral, 3 times daily, First dose on Fri01/11/25 at 1600, Do not crush, chew, cut, dissolve, open or otherwise manipulate tablet/capsule., Indications: Cough 1007 (Not Given - Provider: Kelsie Og RN - Reason: Patient/family refused)1533 (Not Given - Provider: Kelsie Og RN - Reason: Patient/family refused)2140 (Not Given - Provider: Kelsie Goodson RN - Reason: Patient/family refused) 0934 (Not Given - Provider: Sheree Rizo RN - Reason: Patient/family refused)1440 (Not Given - Provider: Sheree Rizo RN - Reason: Patient/family refused)2040 (Not Given - Provider: Kelsie Goodson RN - Reason: Patient/family refused) 1034 (Not Given - Provider: Frances Rice RN - Reason: Patient on Leave of Absence) enoxaparin (LOVENOX) syringe 40 mg 40 mg, subcutaneous, Daily (for enoxaparin), First dose on 01/01/25 at 2100, Indications: Deep Vein Thrombosis Prevention 2140 (Not Given - Provider: Kelsie Goodson RN - Reason: Patient/family refused) 2040 (Not Given - Provider: Kelsie Goodson RN - Reason: Patient/family refused) folic acid (FOLVITE) tablet 1 mg 1 mg, oral, Daily, First dose on 01/01/25 at 0900, Each tablet contains 1 mg of folic acid (1.67 mg DFE)., Indications: 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 1008 (Not Given - Provider: Kelsie Og RN - Reason: Patient/family refused)2140 (Not Given - Provider: Kelsie Goodson RN - Reason: Patient/family refused) 0932 (Given - Provider: Sheree Rizo RN)2039 (Not Given - Provider: Kelsie Goodson RN - Reason: Patient/family refused) 103 (Not Given - Provider: Frances Rice RN - Reason: Patient/family refused) hydrocortisone (CORTEF) tablet 10 mg 10 mg, oral, Daily, First dose on 01/01/25 at 0900 1037 (Given - Provider: Kelsie Og RN) 0933 (Given - Provider: Sheree Rizo RN) 103 (Not Given - Provider: Frances Rice RN - Reason: Patient/family refused) hydrocortisone (CORTEF) tablet 5 mg 5 mg, oral, Nightly, First dose on 01/01/25 at 2100 2140 (Not Given - Provider: Kelsie Goodson RN - Reason: Patient/family refused) 2035 (Given - Provider: Kelsie Goodson RN) oxyCODONE ER (OxyCONTIN) extended release tablet 10 mg 10 mg, oral, Every 12 hours scheduled, First dose (after last modification) on 01/15/25 at 0900, Do not crush, chew, cut, dissolve, open or otherwise manipulate tablet/capsule. 1037 (Given - Provider: Kelsie Og RN)2140 (Not Given - Provider: Kelsie Goodson RN - Reason: Patient/family refused) 0940 (Not Given - Provider: Sheree Rizo RN - Reason: Patient/family refused - Comment: Pt states he only wants his Dilaudid right now.)2040 (Not Given - Provider: Kelsie Goodson RN - Reason: Patient/family refused) 1035 (Not Given - Provider: Frances Rice RN - Reason: Patient/family refused) potassium chloride ER (KLOR-CON) extended release tablet 40 mEq (COMPLETED) 40 mEq, oral, Once, On 01/16/25 at 0800, For 1 dose, Do not crush, chew, cut, dissolve, open or otherwise manipulate tablet/capsule. 1037 (Given - Provider: Kelsie Og RN) potassium chloride ER (KLOR-CON) extended release tablet 40 mEq (COMPLETED) 40 mEq, oral, Once, On 01/17/25 at 0915, For 1 dose, Do not crush, chew, cut, dissolve, open or otherwise manipulate tablet/capsule. 0932 (Given - Provider: Sheree Rizo RN) sodium chloride 0.9% flush 0.5-20 mL 0.5-20 mL, intra-catheter, Every 8 hours scheduled, First dose on 01/01/25 at 0600, Flush volume based on line type and size. 0604 (Not Given - Provider: Roshan Dunn RN - Reason: IV Infusing)1533 (Given - Provider: Kelsie Og RN)2136 (Given - Provider: Kelsie Goodson RN) 0635 (Given - Provider: Kelsie Goodson RN)1607 (Given - Provider: Sheree Rizo, BOUCHRA)2224 (Given - Provider: Kelsie Goodson RN) 0436 (Given - Provider: Kelsie Goodson RN) sodium chloride 0.9% flush 10 mL 10 mL, intra-catheter, Every 12 hours scheduled, First dose on Fara 01/13/25 at 1015, To saline lock: Flush with 10mL per lumen. Flush with 20mL after obtaining a blood sample in lumen utilized. Saline flush syringes are single lumen use, do not use same syringe on multiple lumens. Use postive pressure disconnect: pulsitile flush--> clamp--> then disconnect syringe. 1105 (Given - Provider: Kelsie Og RN)2140 (Given - Provider: Kelsie Goodson RN) 0949 (Given - Provider: Sheree Rizo RN)2100 (Given - Provider: Kelsie Goodson RN) 1035 (Not Given - Provider: Frances Rice, BOUCHRA - Reason: Patient/family refused) sodium chloride 0.9% flush 10 mL 10 mL, intra-catheter, Every 12 hours scheduled, First dose on Fara 01/13/25 at 1015, To saline lock: Flush with 10mL per lumen. Flush with 20mL after obtaining a blood sample in lumen utilized. Saline flush syringes are single lumen use, do not use same syringe on multiple lumens. Use postive pressure disconnect: pulsitile flush--> clamp--> then disconnect syringe. 1105 (Given - Provider: Kelsie Og, BOUCHRA)2137 (Given - Provider: Kelsie Goodson RN) 0940 (Given - Provider: Sheree Rizo, RN)0945 (Given - Provider: Sheree Rizo, RN)2223 (Given - Provider: Kelsie Goodson RN) 0752 (Given - Provider: Frances Rice, BOUCHRA) Continuous Medication Order 01/16/2025 01/17/2025 01/18/2025 sodium chloride 0.9% infusion () 50 mL/hr, intravenous, Continuous, Starting on 01/16/25 at 1315, For 5 hours 1440 (New Bag - Provider: Kelsie Og, BOUCHRA) PRN Medication Order 01/16/2025 01/17/2025 01/18/2025 Carrier Fluids for Secondary Infusion - 0.9% Sodium Chloride 30 mL, intravenous, As needed, For priming tubing and/or flushing, Starting on 01/01/25 at 0420, 0-250 ml/hr to flush line after IV infusions when no maintenance IV ordered. Infuse 30mL at the same rate as the secondary infusion. Run as primary IV, not intended for KVO. diphenhydrAMINE (BENADRYL) tab/cap 25 mg 25 mg, oral, 4 times daily PRN, itching, allergies, Starting on 01/01/25 at 0420 HYDROmorphone (DILAUDID) injection 1 mg 1 mg, intravenous, Administer over 2 Minutes, Every 3 hours PRN, breakthrough pain, Starting on 01/16/25 at 1600 1533 (Not Given - Provider: Kelsie Og RN - Reason: Other)1838 (Given - Provider: Kelsie Og RN)2136 (Given - Provider: Kelsie Goodson RN) 0037 (Given - Provider: Kelsie Goodson RN)0332 (Given - Provider: Kelsie Goodson RN)0635 (Given - Provider: Kelsie Goodson RN)0939 (Given - Provider: Sheree Rizo RN)1255 (Given - Provider: Sheree Rizo RN)1605 (Given - Provider: Sheree Rizo RN)1913 (Given - Provider: Kelsie Goodson RN)2219 (Given - Provider: Kelsie Goodson RN) 0115 (Given - Provider: Kelsie Goodson RN)0433 (Given - Provider: Kelsie Goodson RN)0751 (Given - Provider: Frances Rice, BOUCHRA)1056 (Given - Provider: Frances Rice RN) HYDROmorphone (DILAUDID) injection 2 mg (CANCELED) 2 mg, intravenous, Administer over 2 Minutes, Every 3 hours PRN, breakthrough pain, Starting on 01/15/25 at 0827 0258 (Given - Provider: Roshan Dunn RN)0602 (Given - Provider: Roshan Dunn RN)0925 (Given - Provider: Kelsie Og RN)1227 (Given - Provider: Kelsie Og RN) HYDROmorphone (DILAUDID) injection 2 mg () 2 mg, intravenous, Administer over 2 Minutes, Every 3 hours PRN, breakthrough pain, Starting on 01/16/25 at 1233, For 4 hours 1534 (Given - Provider: Kelsie Og, BOUCHRA) naloxone (NARCAN) 0.4 mg/mL injection 0.4 mg 0.4 mg, intravenous, Every 10 min PRN, opioid reversal, respiratory depression, Starting on 01/01/25 at 0420, For IV, administer over 30 seconds. ondansetron (ZOFRAN) injection 4 mg(Linked Group 1) 4 mg, intravenous, Administer over 2 Minutes, Every 6 hours PRN, nausea, vomiting, if not tolerating PO, Starting on 01/01/25 at 0420, Indications: Nausea and Vomiting ondansetron ODT (ZOFRAN-ODT) disintegrating tablet 4 mg(Linked Group 1) 4 mg, oral, Every 6 hours PRN, nausea, vomiting, Starting on 01/01/25 at 0420, If administering by mouth, place tablet on tongue and allow to dissolve., Indications: Nausea and Vomiting oxyCODONE-acetaminophen (PERCOCET) 10-325 mg per tablet 3 tablet 3 tablet, oral, Every 6 hours PRN, 1st line for pain, Starting on Fri01/11/25 at 1243, Indications: Pain, Sickle cell pain 2035 (Given - Provider: Kelsie Goodson, BOUCHRA) polyethylene glycol (MIRALAX) packet 17 g 17 g, oral, Daily PRN, constipation, Starting on Fri01/01/25 at 0420, Indications: constipation sodium chloride 0.9% flush 0.5-20 mL 0.5-20 mL, intra-catheter, As needed, line care, Starting on 01/01/25 at 0420, Flush volume based on line type and size. Flush before and after each use. 1056 (Given - Provider: Frances Rice, BOUCHRA) sodium chloride 0.9% flush 10-20 mL 10-20 mL, intra-catheter, As needed, line care, Starting on Fara 01/13/25 at 0942, To saline lock: Flush with 10mL per lumen. Flush with 20mL after obtaining a blood sample in lumen utilized. Saline flush syringes are single lumen use, do not use same syringe on multiple lumens. Use postive pressure disconnect: pulsitile flush--> clamp--> then disconnect syringe. sodium chloride 0.9% flush 10-20 mL 10-20 mL, intra-catheter, As needed, line care, Starting on Fara 01/13/25 at 0942, To saline lock: Flush with 10mL per lumen. Flush with 20mL after obtaining a blood sample in lumen utilized. Saline flush syringes are single lumen use, do not use same syringe on multiple lumens. Use postive pressure disconnect: pulsitile flush--> clamp--> then disconnect syringe. Linked Groups Order Group 1: ondansetron ODT (ZOFRAN-ODT) disintegrating tablet 4 mgJump to med 4 mg, oral, Every 6 hours PRN, nausea, vomiting, Starting on 01/01/25 at 0420, If administering by mouth, place tablet on tongue and allow to dissolve., Indications: Nausea and Vomiting Or ondansetron (ZOFRAN) injection 4 mgJump to med 4 mg, intravenous, Administer over 2 Minutes, Every 6 hours PRN, nausea, vomiting, if not tolerating PO, Starting on 01/01/25 at 0420, Indications: Nausea and Vomiting documented in this encounter Orders Medications Ordered That Jayden ht Not Have Been Administered Count Last Ordered Date First Ordered Date sodium chloride 0.9% IVPB 0-250 mL 1 2024 HYDROmorphone (DILAUDID) injection 0.5 mg 1 01/15/2025 oxyCODONE ER (OxyCONTIN) ext ended release tablet 20 mg 1 01/15/2025 potassium chloride ER (KLOR- CON) extended release tablet 40 mEq 1 01/15/2025 lidocaine (PF) (XYLOCAINE) 1 0 mg/mL (1 %) preservative free injection 10-20 mg 3 01/13/202502/2025 sodium chloride 0.9% flush 10-20 mL 5 01/1301/02/2025 oxyCODONE-acetaminophen (PER COCET) 7.5-325 mg per tablet 2 tablet 1 01/07/2025 HYDROmorphone (DILAUDID) injection 2 mg 1 0 01/06/2025 sodium chloride 0.9% flush 10-40 mL 1 01/02 Carrier Fluids for Secondary Infusion - 0.9% Sodium Chloride 1 01/01/2025 enoxaparin (LOVENOX) syringe 40 mg 1 2024 naloxone (NARCAN) 0.4 mg/mL injection 0.4 mg 1 01/01/2025 ondansetron ODT (ZOFRAN-ODT) disintegrating tablet 4 mg 1 01/01/2025 polyethylene glycol (MIRALAX) packet 17 g 1 01/01/2025 Lab Orders Without Results Count Last Ordered D ate First Ordered Date RETICULOCYTES 1 01/01/2025 Diet Count Last Ordered Date First Orde red Date ADULT DISCHARGE DIET 1 01/18/2025 Nursing Count Last Ordered Date First Orde red Date DISCHARGE ACTIVITY 1 01/18/2025 DISCHARGE CALL PROVIDER 7 01/18/2025 OBTAIN BLOOD ADMINISTRATION CONSENT 1 01/16 WEIGH PATIENT 1 01/01/2025 Consult Count Last Ordered Date First Orde red Date IP CONSULT TO VASCULAR ACCESS TEAM 2 202401/02/2025 IV Count Last Ordered Date First Orde red Date SALINE LOCK IV 1 12/31/2024 Admission Count Last Ordered Date First Orde red Date ADMIT TO INPATIENT 1 01/02/2025 INITIATE OBSERVATION SERVICES 1 01/01/2025 Discharge Count Last Ordered Date First Orde red Date DISCHARGE PATIENT 1 01/18/2025 documented in this encounter Care Teams 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
--- OUTSIDE RECORDS SUMMARY | 2025-01-01 00:47 | XMS_ITS | Encounter Summary ---
Author Organization [facility] Healthcare Address [address] [place] [address] Care Team Providers Care Internal Review And Audit Compliance Name Role Phone Ray Sainz MD Unavailable [phone] Gordo Herrera MD Unavailable [phone] Miscellaneous, Not In File Unavailable Unava ilable Laurent Gonzalez MD Primary Care Provider [phone] Tobin Terrell MD Unavailable [phone] Reason for Visit * Reason Comments Sickle Cell Pain Crisis Chest Pain * Auth/Cert (Routine) Specialty Diagnoses / Procedures Referred By Contac t Referred To Contact Diagnoses Acute sickle cell crisis (HCC) Procedures NA Referral ID Status Reason Start Date Expiration Date Visits Re quested Visits Authorized [id number] 1 1 Encounter Details Date Type Department Care Team (Latest Contact Info) Description 01/01/2025 12:47 AM CDT - 01/18/2025 1:24 PM CDT Hospital Encounter [facility] 5 Med Surg [address] [place] [address] Bill Carrasquillo DO [address] [place] [address] Rasta Garcia MD [facility] [place] [address] Gary Hamilton DO [address] [place] [address] Jaya Garcia DO [address] [place] [address] Casey Paz MD [address] [place] [address] [place] [address] Leland Rodriguez MD [facility] [place] [address] Acute sickle cell crisis (HCC) [...] How often do you attend chur or oriental orthodox services? Never 12/08/2024 Do you belong to any clubs o r organizations such as orthodox groups, unions, fraternal or athletic groups, or [...] place to sleep or slept in a group home (including now)? No 09/01/2023 PHQ-9 Answer Date [...] any time in the past [address] [facility], were you homeless or living in a group home (including now)? No 12/08/2024 Social Connection and Isolation Panel Answer Date Recorded In a typical week, how many times do you talk on the phone with family, friends, or neighbors? More than three times a week 01/03/2025 How often do you get togethe r with friends or relatives? Twice a week 01/03/2025 How often do you attend chur ch or oriental orthodox services? Never 01/03/2025 Do you belong to any clubs o r organizations such as orthodox groups, unions, fraternal or athletic groups, or [...] any time in the past [address] [facility], were you homeless or living in a group home (including now)? 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 [facility] after being treated for pain crisis. He reportedly then immediately went to [facility] ED where he was discharged after initial evaluation. Patient then decided to come to [facility] ED for evaluation. On EMR review, patient [...] is not well controlled. 30 mg of [place] q.6 hours. Will continue Dilaudid. onextended release [...] patient is stable for discharge. Hematology and REFRIGERATOR REPAIR TECHNICIAN will be reaching out to Dr. Gonzalez [...] Not in acute distress Lungs CTA Heart: [id number], no significant murmur or gallop Abd: +BS, [...] Your Medications These medications were sent to [facility] [address] [facility] 9[address] [facility] 9074 [facility] [address] hydrocortisone 10 mg tablet hydrocortisone 5 mg tablet ondansetron ODT 4 mg disintegrating tablet oxyCODONE 20 mg tablet oxyCODONE 5 mg immediate release tablet oxyCODONE ER 10 mg 12 hr abuse-deterrent tablet oxyCODONE-acetaminophen 10-325 mg per tablet These medications were sent to [facility] ([facility]) [facility] [address] [facility] 45[address] [facility] [address] oxyCODONE 20 mg tablet These medications were sent to [id number] [address] [facility] [address] [facility] [id number] oxyCODONE 15 mg immediate release tablet Information [...] - General [address] [facility] [address] Next Steps: Schedule an appointment as soon as possible for a visit in 2 week(s) Please schedule an appointment with the following provider(s): Laurent Gonzalez MD [address] [facility] [address] Schedule an appointment as soon as possible [...] Andrew Stubbs M.D. AR: TOREY Report ID: [id number] Reading Location: [place] [address] Recent Labs: Recent Labs Lab Units 01/18/25 [...] 3* 3* CREATININE mg/dL 0.61* 0.50* 0.49* [id number] mL/min/1.73 m2 >90 >90 >90 GLUCOSE mg/dL [...] and drink water throughout the day. Call [phone] to speak with a dietitian about any [...] Not in acute distress Lungs CTA Heart: [id number], no significant murmur or gallop Abd: +BS, [...] Nightly Rasta Garcia MD 5 mg at 01/15/25 2050 HYDROmorphone [...] is not well controlled. 30 mg of [place] q.6 hours. Will continue Dilaudid. onextended release [...] nurse Case discussed with Case Management and Saw Boss Medical complexity/risk: low My total encounter time on 01/16/2025 was 26 minutes which was spent in the activities documented inthe note. This includes time spent prior to the visit and after the visit in direct care of the patient. This time does not include time spent in any separately reportable services. Voice recognition software [employer] Fluency Direct may have been used dictate and transcribe this document. Performance Improvement Coordinator variances may occur. Despite proofreading, typographical errors [...] Not in acute distress Lungs CTA Heart: [id number], no significant murmur or gallop Abd: +BS, [...] Range Crossmatch Compatible Unit number for crossmatch [id number] Crossmatch Compatible Unit number for crossmatch [id number] Prepare RBC: 1 Units Collection Time: 01/16/25 11:30 AM Result Value Ref Range Units requested 1 Units requested Ready Unit Number [id number] Product code [id number] Blood Expiration Date [id number] Product Blood Type (for scanning) 6200 Product [...] is not well controlled. 30 mg of [place] q.6 hours. Will continue Dilaudid. onextended release [...] nurse Case discussed with Case Management and Saw Boss Medical complexity/risk: low My total encounter time on 01/16/2025 was 26 minutes which was spent in the activities documented inthe note. This includes time spent prior to the visit and after the visit in direct care of the patient. This time does not include time spent in any separately reportable services. Voice recognition software [employer] Direct may have been used dictate and transcribe this document. Performance Improvement Coordinator variances may occur. Despite proofreading, typographical errors [...] Not in acute distress Lungs CTA Heart: [id number], no significant murmur or gallop Abd: +BS, [...] flush 0.5-20 mL 0.5-20 mL intra-catheter Q8H [facility] Rasta Garcia MD 10 mL at 01/14/25 1045 sodium chloride 0.9% flush 0.5-20 mL 0.5-20 mL intra-catheter PRN Rasta Garcia MD 10 mL at 01/12/25 1957 sodium chloride 0.9% flush 10 mL 10 mL intra-catheter Q12H Casey Christianson MD 10 mL at 01/15/25 0958 sodium chloride 0.9% flush 10 mL 10 mL intra-catheter Q12H [facility] Casey Paz MD 10 mL at 01/15/25 [...] is not well controlled. 30 mg of [place] q.6 hours. Will continue Dilaudid. onextended release [...] nurse Case discussed with Case Management and Saw Boss Medical complexity/risk: low My total encounter time [...] been used dictate and transcribe this document. Performance Improvement Coordinator variances may occur. Despite proofreading, typographical errors may occur. Casey Paz MD 01/15/2025 10:13 AM * Cha Wallace - 01/14/2025 3:19 PM CDT Spiritual Care Note Cha Wallace M.Div. BCC Mr. Cheung does not articulate any needs at this time. Declined prayer. 01/14/25 1500 Time Spent Start Time 1515 Patient Spiritual Assessment Spirituality Assessed Yes Jehovah'S Witness Affiliation Mandaeism Clinical Encounter Type Visited With Patient Response Type Routine visit Advance Directives (For Healthcare) Advance Directive Patient does not have advance directive Interventions Interventions Offer spiritual/oriental orthodox support * Casey Paz MD - 01/14/2025 [...] Not in acute distress Lungs CTA Heart: [id number], no significant murmur or gallop Abd: +BS, [...] 600 mg 600 mg oral BID Casey aPz MD 600 mg at 01/13/25 2339 hydrocortisone [...] flush 0.5-20 mL 0.5-20 mL intra-catheter Q8H [facility] Rasta Garcia MD 10 mL at 01/14/25 [...] is not well controlled. 30 mg of [place] q.6 hours. Will continue Dilaudid. I added [...] nurse Case discussed with Case Management and Saw Boss Medical complexity/risk: low My total encounter time on 01/14/2025 was 26 minutes which was spent in the activities documented inthe note. This includes time spent prior to the visit and after the visit in direct care of the patient. This time does not include time spent in any separately reportable services. Voice recognition software [employer] Direct may have been used dictate and transcribe this document. Performance Improvement Coordinator variances may occur. Despite proofreading, typographical errors [...] Not in acute distress Lungs CTA Heart: [id number], no significant murmur or gallop Abd: +BS, [...] tablet 10 mg 10 mg oral Q12H [facility] Casey Paz MD 10 mg at 01/13/25 [...] is not well controlled. 30 mg of [place] q.6 hours. Will continue Dilaudid. I added [...] nurse Case discussed with Case Management and Saw Boss Medical complexity/risk: low My total encounter time [...] been used dictate and transcribe this document. Performance Improvement Coordinator variances may occur. Despite proofreading, typographical errors may occur. Casey Paz MD 01/13/2025 1:29 PM * Timoteo Luciana M., REFRIGERATOR REPAIR TECHNICIAN - 01/13/2025 8:14 AM CDT Oncology Medicine [...] Daily Casey Paz MD 500 mg at [id number] benzonatate (TESSALON) capsule 100 mg 100 mg [...] tablet 10 mg 10 mg oral Q12H [facility] Casey Paz MD oxyCODONE-acetaminophen (PERCOCET) 10-325 mg [...] Gee Laboy D.O. AP: AP Report ID: [id number] Reading Location: [id number] XR Chest 1 View Result Date: 01/10/2025 [...] Anne Merchant M.D. FT: FT Report ID: [id number] Reading Location: [id number] CT Abdomen Pelvis WO Contrast Result Date: [...] Anival Cotton M.D. NS: NS Report ID: [id number] Reading Location: [id number] XR Chest 1 Vw Portable Result Date: [...] Andrew Stubbs M.D. AR: TOREY Report ID: [id number] Reading Location: [id number] XR Chest 1 View Result Date: 12/31/2024 Narrative: [address] [address] Examination: Chest 1 view portable History: Chest pain, anemia DATE/TIME: 12/31/2024 4:02 PM Comparison: December 13, 2024 Technique: AP upright portable view of the chest was obtained. Findings: Heart size, mediastinal contours and pulmonary vasculature are within normal limits. No pulmonary consolidation, pleural effusion or pneumothorax. No acute osseous abnormality. Impression: Impression: No acute findings. Referred By: Interpreted By: Jose Trna MD, 12/31/2024 4:24 PM XR Kub Result [...] Luciana Mahmood NP Division of Medical Oncology [facility] I have discussed the [...] Not in acute distress Lungs CTA Heart: [id number], no significant murmur or gallop Abd: +BS, [...] tablet 1 mg 1 mg oral Daily aRsta Garcia MD 1 mg at 01/12/25 1030 [...] flush 0.5-20 mL 0.5-20 mL intra-catheter Q8H [facility] Rasta Garcia MD 10 mL at 01/11/25 [...] is not well controlled. 30 mg of [place] q.6 hours. Will continue Dilaudid. I added [...] nurse Case discussed with Case Management and Saw Boss Medical complexity/risk: Moderate My total encounter time on 01/12/2025 was 36 minutes which was spent in the activities documented inthe note. This includes time spent prior to the visit and after the visit in direct care of the patient. This time does not include time spent in any separately reportable services. Voice recognition software [employer] Flu[employer] Direct may have been used dictate and transcribe this document. Performance Improvement Coordinator variances may occur. Despite proofreading, typographical errors [...] Not in acute distress Lungs CTA Heart: [id number], no significant murmur or gallop Abd: +BS, [...] controlled. I will GH 30 mg of [place] q.6 hours. Will continue Dilaudid. Patient is [...] nurse Case discussed with Case Management and Saw Boss Medical complexity/risk: Moderate My total encounter time on 01/11/2025 was 36 minutes which was spent in the activities documented inthe note. This includes time spent prior to the visit and after the visit in direct care of the patient. This time does not include time spent in any separately reportable services. Voice recognition software [employer] Flu[employer] Direct may have been used dictate and transcribe this document. Performance Improvement Coordinator variances may occur. Despite proofreading, typographical errors [...] RD services on previous admission 12/16-01/02/24 at [facility], 02/09-02/17/24, 03/30-04/05/24, 11/01-11/09/24 at [facility], 05/12-05/15/24 at [facility], 07/28-08/05/24, 04/15-04/28/24, 01/24-02/03/24, 10/20-10/29/24 at [facility], 10/05- 10/19/24 at [facility],11/09-12/07/24, 12/13-12/22/24 at [facility]. Objective Past Medical History: Diagnosis Date Acute [...] BUN SERUM mg/dL 2* CREATININE mg/dL 0.50* TGL-YFD-QFGVRRG mL/min/1.73 m2 >90 CALCIUM mg/dL 8.4* Recent [...] night per patient, no dinner ordered per [employer] software. Supervisors aware. RD stated if do [...] and drink water throughout the day. Call [phone] to speak with a dietitian about any [...] 17 g 17 g oral Daily PRN Ratsa Garcia MD sodium chloride 0.9% flush 0.5-20 [...] syringe 40 mg 40 mg subcutaneous Daily-2099 aRsta Garcia MD folic acid (FOLVITE) tablet 1 [...] 10-40 mL 10-40 mL intra-catheter Q12H MICHEAL AlofnsoGary, DO 10 mLat 01/04/25 1016 Assessment/Plan Sickle [...] for similar presentation. He was [facility] after being treated for pain crisis. He reportedly then immediately went to [facility] ED where he was discharged after initial evaluation. Patient then decided to come to [facility] ED for evaluation. On EMR review, patient [...] Andrew Stubbs M.D. AR: TOREY Report ID: [id number] Reading Location: [id number] XR Chest 1 View Result Date: 12/31/2024 Narrative: [address] [address] Examination: Chest 1 view portable History: Chest [...] Rate: 106 bpm RR Interval: 561 msec CA Interval: 160 msec QRS Duration: 90 msec QT Interval: 368 msec QTC Interval: 430 msec P-R-T [place]: 64 - 31 - 15 degrees IMPRESSION: SINUS TACHYCARDIA ABNORMAL RHYTHM ECG Electronically Signed By: Celestino Dunlap [facility] Card XR Chest Pa Lateral 2 Views Result Date: 12/22/2024 Narrative: XR CHEST PA AND LATERAL 2 VW Ordering provider: [facility] History: 29 years Male with Chest [...] Gina Betancur D.O. PS: PS Report ID: [id number] Reading Location: [id number] CT Chest W Contrast Result Date: 12/15/2024 Narrative: [address] [address] Examination: CT chest with IV contrast. Clinical [...] XR CHEST PA+LAT Result Date: 12/13/2024 Narrative: [address] [address] Examination: Chest 2 View History: Chest pain, [...] acute pulmonary disease. DICTATION LOCATION: Location 1 [facility] XR Chest 1 View Result Date: 12/07/2024 Narrative: EXAM DESCRIPTION: XR CHEST 1 VIEW REASON FOR STUDY: chest pain Pt states, I was just at [facility] from October 29 until yesterday when he [...] Andrew Stubbs M.D. AR T: Report ID: [id number] Reading Location: [id number] XR SHOULDER RT MIN 2V Result Date: 12/04/2024 Narrative: [address] [address] Examination: XR SHOULDER RT MIN 2V Exam [...] mL intra-catheter Q12H MICHEAL Gary Hamilton, DO sodium chloride 0.9% flush [...] used to dictate and transcribe this document. Performance Improvement Coordinator variances may occur. Despite proofreading, typographical errors [...] for similar presentation. He was justdischarged from [facility] yesterday after being treated for pain crisis. He reportedly then immediately went to [facility] ED where he was discharged after initial evaluation. Patient then decided to come to [facility] ED for evaluation. On EMR review, patient [...] Andrew Stubbs M.D. AR: TOREY Report ID: [id number] Reading Location: [id number] XR Chest 1 View Result Date: 12/31/2024 Narrative: [address] [address] Examination: Chest 1 view portable History: Chest [...] Rate: 106 bpm RR Interval: 561 msec CA Interval: 160 msec QRS Duration: 90 msec QT Interval: 368 msec QTC Interval: 430 msec P-R-T [place]: 64 - 31 - 15 degrees IMPRESSION: SINUS TACHYCARDIA ABNORMAL RHYTHM ECG Electronically Signed By: Celestino Dunlap [facility] Card XR Chest Pa Lateral 2 Views Result Date: 12/22/2024 Narrative: XR CHEST PA AND LATERAL 2 VW Ordering provider: [facility] History: 29 years Male with Chest [...] Gina Betancur D.O. PS: PS Report ID: [id number] Reading Location: [place] [address] CT Chest W Contrast Result Date: 12/15/2024 Narrative: [address] [address] Examination: CT chest with IV contrast. Clinical [...] XR CHEST PA+LAT Result Date: 12/13/2024 Narrative: [address] [address] Examination: Chest 2 View History: Chest pain, [...] pulmonary disease. DICTATION LOCATION: Location 1 - [facility] XR Chest 1 View Result Date: 12/07/2024 Narrative: EXAM DESCRIPTION: XR CHEST 1 VIEW REASON FOR STUDY: chest pain Pt states, I was just at [facility] from October 29 until yesterday when he [...] signed by Andrew LEMA T: Report ID: [id number] Reading Location: [id number] XR SHOULDER RT MIN 2V Result Date: 12/04/2024 Narrative: [address] [address] Examination: XR SHOULDER RT MIN 2V Exam [...] complexity/risk: Moderate, level 2 Voice recognition software [employer] may have been used to dictate and transcribe this document. Performance Improvement Coordinator variances may occur. Despite proofreading, typographical errors may occur. Gary Hamilton DO 01/02/2025 2:47 PM documented in this encounter H&P Notes * Rasta Garcia MD - 01/01/2025 4:09 AM CDT Images from the original note were not included. History and Physical Date of Service: 01/01/2025 Primary Care Physician: Laurent Gonzalez MD [phone] CHIEF COMPLAINT: Patient is a 29 y.o. [...] for similar presentation. He was [facility] from [facility] yesterday after being treated for pain crisis. He reportedly then immediately went to [facility] ED where he was discharged after initial evaluation. Patient then decided to come to [facility] ED for evaluation. On EMR review, patient [...] Use: Not At Risk (12/30/2024) Received from [facility] Health AUDIT-C Frequency of Alcohol Consumption: Never [...] Andrew Stubbs M.D. AR: TOREY Report ID: [id number] Reading Location: [id number] XR Chest 1 View Result Date: 12/31/2024 Narrative: [address] [address] Examination: Chest 1 view portable History: Chest [...] Rate: 106 bpm RR Interval: 561 msec CA Interval: 160 msec QRS Duration: 90 msec QT Interval: 368 msec QTC Interval: 430 msec P-R-T [place]: 64 - 31 - 15 degrees IMPRESSION: SINUS TACHYCARDIA ABNORMAL RHYTHM ECG Electronically Signed By: Celestino Dunlap [facility] Card XR Chest Pa Lateral 2 Views Result Date: 12/22/2024 Narrative: XR CHEST PA AND LATERAL 2 VW Ordering provider: [facility] History: 29 years Male with Chest [...] Gina Betancur D.O. PS: PS Report ID: [id number] Reading Location: [id number] CT Chest W Contrast Result Date: 12/15/2024 Narrative: [place] [address] Examination: CT chest with IV contrast. Clinical [...] XR CHEST PA+LAT Result Date: 12/13/2024 Narrative: [facility] 1 [place] [id number] Examination: Chest 2 View History: Chest pain, [...] pulmonary disease. DICTATION LOCATION: Location 1 - [facility] XR Chest 1 View Result Date: 12/07/2024 Narrative: EXAM DESCRIPTION: XR CHEST 1 VIEW REASON FOR STUDY: chest pain Pt states, I was just at [facility] from October 29 until yesterday when he [...] signed by Andrew LEMA T: Report ID: [id number] Reading Location: [id number] XR SHOULDER RT MIN 2V Result Date: 12/04/2024 Narrative: [facility] [address] [place], [place] [address] Examination: XR SHOULDER RT MIN 2V Exam [...] used to dictate and transcribe this document. Performance Improvement Coordinator variances may occur. Despite proofreading, typographical errors [...] Andrew Stubbs M.D. AR: TOREY Report ID: [id number] Reading Location: [id number] XR Chest 1 View Result Date: 12/31/2024 Narrative: [address] [address] Examination: Chest 1 view portable History: Chest [...] Rate: 106 bpm RR Interval: 561 msec CA Interval: 160 msec QRS Duration: 90 msec QT Interval: 368 msec QTC Interval: 430 msec P-R-T [place]: 64 - 31 - 15 degrees IMPRESSION: SINUS TACHYCARDIA ABNORMAL RHYTHM ECG Electronically Signed By: Celestino Dunlap [facility] Card XR Chest Pa Lateral 2 Views Result Date: 12/22/2024 Narrative: XR CHEST PA AND LATERAL 2 VW Ordering provider: [facility] History: 29 years Male with Chest [...] Gina Betancur D.O. PS: PS Report ID: [id number] Reading Location: [place] [address] CT Chest W Contrast Result Date: 12/15/2024 Narrative: [address] [address] Examination: CT chest with IV contrast. Clinical [...] XR CHEST PA+LAT Result Date: 12/13/2024 Narrative: [facility] [address] [place], [place] [address] Examination: Chest 2 View History: Chest pain, [...] pulmonary disease. DICTATION LOCATION: Location 1 - [facility] * Cannot find OR log * ASSESSMENT/PLAN: [...] patient with my collaborating physician. Kassy George, PROJECT PRODUCT MANAGER, HEALTH SCIENCE SPECIALIST-C, CCRN Division of Medical Oncology [facility] Cosigned by Humberto Serna [...] labs drawn, pt still refused labs when curing oven tender went to draw at 04:30. * Audra Dalton, BOUCHRA - 01/02/2025 4:56 AM CDT Patient refused labs when curing oven tender went in to draw at 0450. documented [...] Use: Not At Risk (12/30/2024) Received from [facility] Health AUDIT-C Frequency of Alcohol Consumption: Never [...] Andrew Stubbs M.D. AR: TOREY Report ID: [id number] Reading Location: [id number] BP 131/85 (BP Location: Left arm, Patient [...] AFTER HOURS, PLEASE REACH OUT TO THE GAMING FLOOR SUPERVISOR SOCIAL WORK TEAM* 01/18/25 1310 Discharge Summary [...] the next week or two. Kassy George, PROJECT PRODUCT MANAGER, HEALTH SCIENCE SPECIALIST-C, CCRN [facility] Division of Medical Oncology Cosigned by Justin Thompson MD PhD at 01/18/2025 12:34 PM CDT * Plan of Care - Kelsie Goodson RN - 01/18/2025 5:28 AM CDT Goals: Clinical Goals for the Shift: VSS, Pain control, Rest, Comfort, Safety Mcfp Patient Centered Goal for Treatment: Safe DC [...] Shift: VSS, Pain control, Rest, Comfort, Safety Digital Music Instructor Patient Centered Goal for Treatment: Safe DC Summary: VSS * Plan of Care - Kelsie Goodson RN - 01/17/2025 5:55 AM CDT Goals: Clinical Goals for the Shift: pain control. Digital Music Instructor Patient Centered Goal for Treatment: D/c home. [...] in flowsheets. Plan of care discussed with patient/sales representative girls' apparel, including as it relates to sickle cell crisis Patient progressing. Education provided includes Discharge Planning and Fall Prevention. 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 Problem: Discharge Planning Goal: Understanding [...] Clinical Goals for the Shift: pain control. Mcfp Patient Centered Goal for Treatment: D/c home. [...] Clinical Goals for the Shift: pain control. Mcfp Patient Centered Goal for Treatment: D/c home. [...] Clinical Goals for the Shift: pain control. Mcfp Patient Centered Goal for Treatment: D/c home. [...] Clinical Goals for the Shift: pain control. Digital Music Instructor Patient Centered Goal for Treatment: D/c home. Summary: * Plan of Care - Augustine Alvarez RN - 01/14/2025 2:05 PM CDT Goals: Clinical Goals for the Shift: pain control. Mcfp Patient Centered Goal for Treatment: D/c home. [...] for the Shift: VSS, rest, pain control Digital Music Instructor Patient Centered Goal for Treatment: D/c home. [...] the Shift: Comfort, safety, VSS, pain control Digital Music Instructor Patient Centered Goal for Treatment: d/c home [...] flowsheets. . Plan of care discussed with patient/sales representative girls' apparel, including as it relates to Principal Problem: Acute sickle cell crisis (HCC) Patient progressing. Clinical goals for the shift Comfort, safety, VSS, pain control . Education provided includes Treatments/Therapies: . 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 Willcontinue to monitor. Patient resting [...] Gee Laboy D.O. AP: AP Report ID: [id number] Reading Location: [id number] XR Chest 1 View Result Date: 01/10/2025 [...] Anne Merchant M.D. FT: FT Report ID: [id number] Reading Location: [id number] CT Abdomen Pelvis WO Contrast Result Date: [...] Anival Cotton M.D. NS: NS Report ID: [id number] Reading Location: [id number] XR Chest 1 Vw Portable Result Date: [...] Andrew Stubbs M.D. AR: TOREY Report ID: [id number] Reading Location: [id number] XR Chest 1 View Result Date: 12/31/2024 Narrative: [address] [address] Examination: Chest 1 view portable History: Chest [...] APRN, FNP- Nurse Practitioner Division of Oncology [address] [place] [address], [address] [place] [address] , ext, 1, ext 1 Performance Improvement Coordinator completed by using M*Modal Fluency Direct speaking [...] the Shift: VSS, pain management, safety, rest Digital Music Instructor Patient Centered Goal for Treatment: d/c home [...] Anne Merchant M.D. FT: FT Report ID: [id number] Reading Location: [place] [address] CT Abdomen Pelvis WO Contrast Result Date: [...] Anival Cotton M.D. NS: NS Report ID: [id number] Reading Location: [place] [address] XR Chest 1 Vw Portable Result Date: [...] Andrew Stubbs M.D. AR: TOREY Report ID: [id number] Reading Location: [id number] XR Chest 1 View Result Date: 12/31/2024 Narrative: [address] [address] Examination: Chest 1 view portable History: Chest [...] Rate: 106 bpm RR Interval: 561 msec CA Interval: 160 msec QRS Duration: 90 msec QT Interval: 368 msec QTC Interval: 430 msec P-R-T [place]: 64 - 31 - 15 degrees IMPRESSION: SINUS TACHYCARDIA ABNORMAL RHYTHM ECG Electronically Signed By: Celestino Dunlap [facility] Card XR Chest Pa Lateral 2 Views Result Date: 12/22/2024 Narrative: XR CHEST PA AND LATERAL 2 VW Ordering provider: [facility] History: 29 years Male with Chest [...] Gina Betancur D.O. PS: PS Report ID: [id number] Reading Location: [id number] CT Chest W Contrast Result Date: 12/15/2024 Narrative: [address] [address] Examination: CT chest with IV contrast. Clinical [...] XR CHEST PA+LAT Result Date: 12/13/2024 Narrative: [address] [address] Examination: Chest 2 View History: Chest pain, [...] APRN, CHELSEA- Nurse Practitioner Division of Oncology [address] [place] [address], [address] [place] [address] , ext, 1, ext 1 Performance Improvement Coordinator completed by using [employer] Direct speaking software, therefore, transcriptionvariances may occur Cosigned by Justin Thompson MD PhD at 01/11/2025 10:31 AM CDT * Plan of Care - Janet Zuniga RN - 01/11/2025 1:54 AM CDT Goals: Clinical Goals for the Shift: VSS, pain control, IV fluids, safety, rest/comfort Digital Music Instructor Patient Centered Goal for Treatment: d/c home [...] at discharge. [place] need transportation arranged at [place]. This discharge plan has been discussed with [...] Goals for the Shift: rest, pain control Mcfp Patient Centered Goal for Treatment: Discharge home [...] Shift: COMFOR, STABLE V/S AND MEDICATION EDUCATION Digital Music Instructor Patient Centered Goal for Treatment: Discharge home [...] safety, CT abdomen due toabdominal pain today Mcfp Patient Centered Goal for Treatment: Discharge home [...] Shift: VSS, I&O, comfort, safety, pain control Mcfp Patient Centered Goal for Treatment: dc home [...] Goals for the Shift: vss, comfort, safety Mcfp Patient Centered Goal for Treatment: dc home [...] by Madison Baker RN Outcome: Progressing Goal: Return ADL [...] Goals for the Shift: Pain, VSS, comfort Digital Music Instructor Patient Centered Goal for Treatment: DC to home * Plan of Care - Betty Zuniga RN - 01/06/2025 3:02 PM CDT Goals: Clinical Goals for the Shift: Pain, VSS, comfort Mcfp Patient Centered Goal for Treatment: DC to [...] will improve Outcome: Progressing Flowsheets (Taken 01/06/2025 145) Understanding of discharge needs will improve: Discuss [...] Clinical Goals for the Shift: rest/pain control Mcfp Patient Centered Goal for Treatment: dc home [...] Goals for the Shift: pain, VSS, safety Digital Music Instructor Patient Centered Goal for Treatment: DC to [...] be promoted, and pain will be managed Digital Music Instructor Patient Centered Goal for Treatment: Safe DC Summary: Patient's safety maintained, fall prevented, rest promoted, and pain managed * Plan of Joseluis - Betty Zuniga RN - 01/04/2025 6:24 PM CDT Goals: Clinical Goals for the Shift: Safety, VSS, Pain control Digital Music Instructor Patient Centered Goal for Treatment: Dc to [...] be promoted, and pain will be managed Digital Music Instructor Patient Centered Goal for Treatment: Safe DC Summary: Patient's safety maintained, fall prevented, rest promoted, and pain managed * Plan of Care - Avinash Vegas RN - 01/03/2025 6:51 PM CDT Goals: Clinical Goals for the Shift: VSS, pain managment, IV fluids, safety, rest/comfort Mcfp Patient Centered Goal for Treatment: d/c home [...] Outcome: Progressing * Initial Assessments - Cheyanne Hines RN - 01/03/2025 12:20 PM CDT CM [...] Plan Fax Number Effective Dates [address] [address] 01/25/2024 - None Entered [facility] [phone] Subscriber Name Subscriber Date Member ID [id number] SIMON 1995 [id number] Pharmacy: [facility] [id number] [facility] [address] [facility] 9[address] [facility] [address] Primary Care Provider: Laurent Gonzalez MD Prior [...] were you homeless or living in a group home (including now)?: No (01/03/25 1602) Utilities: No, (01/03/25 160) Social Connections: In a typical week, how many times do you talk on the phone with family, friends, or neighbors?: More than three times a week How often do you get together with friends or relatives?: Twice a week How often do you attend orthodox or oriental orthodox services?: Never Do you belong to any clubs or organizations such as orthodox groups, unions, fraternal or athletic groups, or [...] VSS, pain managment, IV fluids, safety, rest/comfort Mcfp Patient Centered Goal for Treatment: d/c home [...] Shift: Pain control, cares, comfort, and safety Mcfp Patient Centered Goal for Treatment: Safe d/c home w/ no pain Summary: Patient really prefers dilaudid verses percocet. * Plan of Care - Audra Dalton RN - 01/02/2025 6:08 AM CDT Goals: Clinical Goals for the Shift: Pain control, cares, comfort, and safety Digital Music Instructor Patient Centered Goal for Treatment: Safe d/c [...] and output. 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 * Plan of Care - Natalia Sands RN - 01/01/2025 9:00 AM CDT Goals: Clinical Goals for the Shift: Monitor VS, safety, and comfort; Pain management; IV fluids; Rest Mcfp Patient Centered Goal for Treatment: Safe discharge [...] and comfort; Pain management; IV fluids; Rest Digital Music Instructor Patient Centered Goal for Treatment: Safe discharge [...] & will continue to monitor. 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 Plan of care discussed with patient/sales representative girls' apparel, including as it relates to Principal Problem: [...] * eGFR (01/18/2025 6:14 AM CDT) Pathologist [facility] [place] eGFR >90 >=60 mL/min/1. 73 m2 Comment: [...] was last reviewed 2021. Testing performed by: [facility], [address] [place] [address]., [address] Blood 01/18/2025 6:14 AM CDT 01/18/2025 6:34 AM CDT us Rasta Garcia MD LAB BLOOD ORDERABLES Final Res ult [facility] [address] [facility] Department [place] [address] * (ABNORMAL) Differential, auto (01/18/2025 6:14 AM CDT) Neutrophil abs 5.66 1.50 - 6.50 K/cumm Comment:Testing performed by : [address] [address] Imm gran abs 0.06 0.00 - 0.10 K/cumm [facility] Comment:Testing performed by : [address], [place]., [address] Lymphocyte abs 4.21(H) 0.80 - 3.30 K/cumm [facility] Comment:Testing performed by : [address], [place]., [address] Monocyte abs 1.53(H) 0.20 - 0.80 K/cumm [facility] Comment:Testing performed by : [address] [address] Eosinophil abs 0.32 0.00 - 0.50 K/cumm [facility] Comment:Testing performed by : [address] [address] Basophil abs 0.06 0.00 - 0.10 K/cumm [facility] Comment:Testing performed by : [address] [address] Neutrophil pct 47.8 % [facility] Comment: Interpretive Data Percent cell count reference ranges are not reported, since discordance with absolute values may lead to misinterpretation of CBC data. Current Interpretive Data was last revised on 2017. Testing performed by: [address] [address] Imm gran pct 0.5 % [facility] Comment: Interpretive Data Percent cell count reference ranges are not reported, since discordance with absolute values may lead to misinterpretation of CBC data. Current Interpretive Data was last revised on 2017. Testing performed by: [address] [address] Lymphocyte pct 35.6 % [facility] Comment: Interpretive Data Percent cell count reference ranges are not reported, since discordance with absolute values may lead to misinterpretation of CBC data. Current Interpretive Data was last revised on 2017. Testing performed by: [address] [address] Monocyte pct 12.9 % [facility] Comment: Interpretive Data Percent cell count reference ranges are not reported, since discordance with absolute values may lead to misinterpretation of CBC data. Current Interpretive Data was last revised on 2017. Testing performed by: [address] [address] Eosinophil pct 2.7 % [facility] SHE[facility] Comment: Interpretive Data Percent cell count reference ranges are not reported, since discordance with absolute values may lead to misinterpretation of CBC data. Current Interpretive Data was last revised on 2017. Testing performed by: [address] [address] Basophil pct 0.5 % [facility] SHETT[facility] Comment: Interpretive Data Percent cell count reference ranges are not reported, since discordance with absolute values may lead to misinterpretation of CBC data. Current Interpretive Data was last revised on 2017. Testing performed by: [address] [address] Blood 01/18/2025 6:14 AM CDT 01/18/2025 6:34 AM CDT us Rasta Garcia MD LAB BLOOD ORDERABLES Final Res ult [facility] [address] [facility] Department [place] [address] * (ABNORMAL) Reticulocyte Count (01/18/2025 6:14 AM CDT) Retics, absolute 362(H) 20 - 87 K/cumm Comment:Testing performed by : [address] [address] Retics 12.5(H) 0.4 - 2.9 % [facility] SHETTY Comment:Testing performed by : [address] [address] Reticulocyte Hgb 31.6 30.5 - 38.0 pg [facility] SHETTY Comment:Testing performed by : [address] [address] Blood 01/18/2025 6:14 AM CDT 01/18/2025 6:34 AM CDT us Rasta Garcia MD LAB BLOOD ORDERABLES Final Res ult [facility] [address] [facility] Department [place] [address] * (ABNORMAL) CBC with auto differential (01/18/2025 6:14 AM CDT) WBC 11.84(H) 3.80 - 9.90 K/cumm Comment:Testing performed by : [address] [address] Hgb 8.3(L) 13.0 - 17.5 g/dL [facility] Comment:Testing performed by : [address] [address] Hct 24.3(L) 38.9 - 50.3 % [facility] Comment:Testing performed by : [address] [address] Plt 302 150 - 400 K/cumm [facility] Comment:Testing performed by : [address], [address] MPV 9.9 9.1 - 12.3 fL [facility] Comment:Testing performed by : [address] [address] RBC 2.79(L) 4.30 - 5.80 M/cumm [facility] Comment:Testing performed by : [address] [address] MCV 87.1 81.3 - 96.4 fL [facility] Comment:Testing performed by : [address] [address] MCH 29.7 27.1 - 33.3 pg [facility] SHETTY Comment:Testing performed by : [address] [address] MCHC 34.2 32.3 - 35.7 g/dL [facility] Comment:Testing performed by : [address], [address] RDW CV 21.2(H) 11.1 - 14.9 % [facility] SHETT[facility] Comment:Testing performed by : [address] [address] RDW SD 66.2(H) 35.7 - 48.1 fL [facility] SHETTY Comment:Testing performed by : [address] [address] NRBC abs 0.05(H) 0.00 - 0.01 K/cumm [facility] SHE[facility] Comment:Testing performed by : [address] [address] Morphologic Screen Results confirmed by manual morphology review. [facility] Comment:Testing performed by : [address] [address] Blood 01/18/2025 6:14 AM CDT 01/18/2025 6:34 AM CDT us Rasta Garcia MD LAB BLOOD ORDERABLES Edited Re cindi - Final [facility] Department [place] [address] * (ABNORMAL) Basic metabolic panel (01/18/2025 6:14 AM CDT) Sodium 138 135 - 145 mmol/L Comment:Testing performed by : [address] [address] Potassium, pl 3.3 3.3 - 4.9 mmol/L [facility] SHETTY Comment:Testing performed by : [address] [address] Chloride 101 97 - 110 mmol/L [facility] Comment:Testing performed by : [address] [address] CO2 25 22 - 32 mmol/L [facility] SHETTY Comment:Testing performed by : [address] [address] Anion gap 12 2 - 15 mmol/L [facility] SHETT[facility] Comment:Testing performed by : [address] [address] BUN 4(L) 6 - 25 mg/dL [facility] SHETT[facility] Comment:Testing performed by : [address] [address] Creatinine 0.61(L) 0.80 - 1.30 mg/dL [facility] Comment:Testing performed by : [address] [address] Glucose 105 70 - 199 mg/dL [facility] [...] was last revised 2022. Testing performed by: [address] [address] Calcium 9.1 8.5 - 10.3 mg/dL [facility] Comment:Testing performed by : [address] [address] Blood 01/18/2025 6:14 AM CDT 01/18/2025 6:34 AM CDT us Rasta Garcia MD LAB BLOOD ORDERABLES Final Res ult [facility] [address] [facility] Department of Laboratories [place], [place] [id number] * eGFR (01/17/2025 6:04 AM CDT) eGFR [...] was last reviewed 2021. Testing performed by: [address] [address] Blood 01/17/2025 6:04 AM CDT 01/17/2025 6:35 AM CDT us Rasta Garcia MD LAB BLOOD ORDERABLES Final Res ult [facility] Department [place] [address] * (ABNORMAL) Differential, auto (01/17/2025 6:04 AM CDT) Neutrophil abs 4.97 1.50 - 6.50 K/cumm Comment:Testing performed by : [address] [address] Imm gran abs 0.04 0.00 - 0.10 K/cumm [facility] Comment:Testing performed by : [address] [address] Lymphocyte abs 3.73(H) 0.80 - 3.30 K/cumm [facility] Comment:Testing performed by : [address] [address] Monocyte abs 1.04(H) 0.20 - 0.80 K/cumm [facility] Comment:Testing performed by : [address] [address] Eosinophil abs 0.35 0.00 - 0.50 K/cumm [facility] Comment:Testing performed by : [address] [address] Basophil abs 0.06 0.00 - 0.10 K/cumm [facility] Comment:Testing performed by : [address] [address] Neutrophil pct 48.8 % [facility] Comment: Interpretive Data Percent cell count reference ranges are not reported, since discordance with absolute values may lead to misinterpretation of CBC data. Current Interpretive Data was last revised on 2017. Testing performed by: [address] [address] Imm gran pct 0.4 % [facility] Comment: Interpretive Data Percent cell count reference ranges are not reported, since discordance with absolute values may lead to misinterpretation of CBC data. Current Interpretive Data was last revised on 2017. Testing performed by: [address] [address] Lymphocyte pct 36.6 % [facility] Comment: Interpretive Data Percent cell count reference ranges are not reported, since discordance with absolute values may lead to misinterpretation of CBC data. Current Interpretive Data was last revised on 2017. Testing performed by: [address] [address] Monocyte pct 10.2 % [facility] Comment: Interpretive Data Percent cell count reference ranges are not reported, since discordance with absolute values may lead to misinterpretation of CBC data. Current Interpretive Data was last revised on 2017. Testing performed by: [address] [address] Eosinophil pct 3.4 % [facility] Comment: Interpretive Data Percent cell count reference ranges are not reported, since discordance with absolute values may lead to misinterpretation of CBC data. Current Interpretive Data was last revised on 2017. Testing performed by: [address] [address] Basophil pct 0.6 % [facility] Comment: Interpretive Data Percent cell count reference ranges are not reported, since discordance with absolute values may lead to misinterpretation of CBC data. Current Interpretive Data was last revised on 2017. Testing performed by: [address] [address] Blood 01/17/2025 6:04 AM CDT 01/17/2025 6:35 AM CDT us Rasta Garcia MD LAB BLOOD ORDERABLES Final Res ult Performing Organization Address City/[facility] Co de Phone Number [facility] [address] [facility] [place] [address] * (ABNORMAL) Reticulocyte Count (01/17/2025 6:04 AM CDT) Retics, absolute 468(H) 20 - 87 K/cumm Comment:Testing performed by : [address] [address] Retics 15.7(H) 0.4 - 2.9 % [facility] Comment:Testing performed by : [address] [address] Reticulocyte Hgb 30.0(L) 30.5 - 38.0 pg [facility] Comment:Testing performed by : [address] [address] Blood 01/17/2025 6:04 AM CDT 01/17/2025 6:35 AM CDT us Rasta Garcia MD LAB BLOOD ORDERABLES Final Res ult Performing Organization Address [facility] de Phone Number [facility] [place] [address] * (ABNORMAL) CBC with auto differential (01/17/2025 6:04 AM CDT) Pathologist [facility] [place] WBC 10.19(H) 3.80 - 9.90 K/cumm Comment:Testing performed by : [address] [address] Hgb 8.3(L) 13.0 - 17.5 g/dL [facility] SHE[facility] Comment:Testing performed by : [address] [address] Hct 24.0(L) 38.9 - 50.3 % [facility] Comment:Testing performed by : [address] [address] Plt 329 150 - 400 K/cumm [facility] Comment:Testing performed by : [address] [address] MPV 10.6 9.1 - 12.3 fL [facility] Comment:Testing performed by : [address] [address] RBC 2.77(L) 4.30 - 5.80 M/cumm [facility] Comment:Testing performed by : [address] [address] MCV 86.6 81.3 - 96.4 fL [facility] Comment:Testing performed by : [address], [address] MCH 30.0 27.1 - 33.3 pg [facility] Comment:Testing performed by : [address], [address] MCHC 34.6 32.3 - 35.7 g/dL [facility] Comment:Testing performed by : [address] [address] RDW CV 21.2(H) 11.1 - 14.9 % [facility] Comment:Testing performed by : [address], [address] RDW SD 66.2(H) 35.7 - 48.1 fL [facility] Comment:Testing performed by : [address], [address] NRBC abs 0.06(H) 0.00 - 0.01 K/cumm [facility] Comment:Testing performed by : [address], [address] Morphologic Screen Results confirmed by manual morphology review. [facility] Comment:Testing performed by : [address] [address] Blood 01/17/2025 6:04 AM CDT 01/17/2025 6:35 AM CDT us Rasta Garcia MD LAB BLOOD ORDERABLES Edited Re sult - Final [facility] [address] [facility] Department [place] [address] * (ABNORMAL) Basic metabolic panel (01/17/2025 6:04 AM CDT) Sodium 137 135 - 145 mmol/L Comment:Testing performed by : [address] [address] Potassium, pl 3.1(L) 3.3 - 4.9 mmol/L [facility] Comment:Testing performed by : [address] [address] Chloride 101 97 - 110 mmol/L [facility] Comment:Testing performed by : [address] [address] CO2 24 22 - 32 mmol/L [facility] Comment:Testing performed by : [address] [address] Anion gap 12 2 - 15 mmol/L [facility] Comment:Testing performed by : [address] [address] BUN 3(L) 6 - 25 mg/dL [facility] Comment:Testing performed by : [address] [address] Creatinine 0.50(L) 0.80 - 1.30 mg/dL [facility] Comment:Testing performed by : [address] [address] Glucose 125 70 - 199 mg/dL [facility] [...] was last revised 2022. Testing performed by: [address] [address] Calcium 8.9 8.5 - 10.3 mg/dL [facility] Comment:Testing performed by : [facility], [address] [place] [address]., [address] Blood 01/17/2025 6:04 AM CDT 01/17/2025 6:35 AM CDT us Rasta Garcia MD LAB BLOOD ORDERABLES Final Res ult Performing Organization Address City/[facility]/ZIP Co de Phone Number [facility] [address] [facility] [place] [address] * Troponin T high-sensitivity 4-hour (01/16/2025 6:37 PM CDT) Trop T hs 13 <=22 ng/L Comment: Interpretive Data For further hscTnT resources including the diagnostic algorithm and an aid in interpretation, copy and paste this link: https://nrl.testcatalog.org/show/hsTrop Current Interpretive Data last revised 2020. Testing performed by: [address] [address] Trop T hs delta 7 ng/L [facility] Comment:Testing performed by : [address] [address] Trop T hs interp Equivocal [facility] Comment:Testing performed by : [address] [address] Blood 01/16/2025 6:37 PM CDT 01/16/2025 6:48 PM CDT Casey Paz MD LAB BLOOD ORDERABLES Final Result Performing Organization Address City/[facility]/ZIP Co de Phone Number [facility] [address] [facility] [place] [address] * Troponin T high-sensitivity 2-hour (01/16/2025 5:09 PM CDT) Trop T hs <6 <=22 ng/L Comment: Interpretive Data For further hscTnT resources including the diagnostic algorithm and an aid in interpretation, copy and paste this link: https://nrl.testcatalog.org/show/hsTrop Current Interpretive Data last revised 2020. Testing performed by: [address] [address] Trop T hs delta 0 ng/L [facility] Comment:Testing performed by : [address] [address] Trop T hs interp Insignificant [facility] Comment:Testing performed by : [address] [address] Blood 01/16/2025 5:09 PM CDT 01/16/2025 5:15 PM CDT Casey Paz MD LAB BLOOD ORDERABLES Final Result Performing Organization Address [facility] [facility] Co de Phone Number [place] [id number] [facility] [place] [address] * Post TRXN SAMY (01/16/2025 3:58 PM CDT) Yesenia, direct, post-transfusi on Negative Comment:Testing performed by : [address] [address] Blood 01/16/2025 3:58 PM CDT 01/16/2025 3:59 PM CDT Casey Paz MD LAB BLOOD BANK TEST ORDERA BLES Final Result Performing Organization Address [facility]/ZIP Co de Phone Number [address] [address] * Post-Transfusion Reaction ABO/Rh (01/16/2025 3:58 PM CDT) ABO/Rh Post-Transfusi on Reaction A Positive Comment:Testing performed by : [address] [address] Blood 01/16/2025 3:58 PM CDT 01/16/2025 3:59 PM CDT Casey Paz MD LAB BLOOD BANK TEST ORDERA BLES Final Result Performing Organization Address City/[facility] Co de Phone Number [place] [address] [address] * Pre TRXN SAMY (01/16/2025 3:58 PM CDT) Direct yesenia pre-transfusio n reaction Negative Comment:Testing performed by : [address] [address] Blood 01/16/2025 3:58 PM CDT 01/16/2025 3:59 PM CDT Casey Paz MD LAB BLOOD BANK TEST ORDERA BLES Final Result Performing Organization Address [facility] Co de Phone Number [address] [address] * Pre-Transfusion Reaction ABO/Rh (01/16/2025 3:58 PM CDT) Pathologist [facility] [place] ABO/Rh Pre-Transfusio n Reaction A Positive Comment:Testing performed by : [address] [address] Blood 01/16/2025 3:58 PM CDT 01/16/2025 3:59 PM CDT Casey Paz MD LAB BLOOD BANK TEST ORDERA BLES Final Result Performing Organization Address City/[facility]/ZIP Co de Phone Number [address] [address] * ECG 12 lead (01/16/2025 2:47 PM CDT) Pathologist [facility] [place] Ventricular Rate EKG/Min 79 BPM [facility] Atrial Rate 79 BPM [facility] CA-Interval (MSEC) 190 ms [facility] QRS-Interval (MSEC) 80 ms [facility] QT-Interval (MSEC) 410 ms [facility] QTc 470 ms [facility] P [place] 48 degrees [facility] R [place] 22 degrees [facility] T [place] -16 degrees [facility] Diagnosis Normal sinus rhythm Nonspecific T wave abnormality Abnormal ECG When compared with ECG of 31-DEC-2024 23:51, Nonspecific T wave abnormality now evident in Anterolateral leads Confirmed by MIRYAM GARCÍA M.D. ([id number]) on 01/16/2025 6:28:08 PM [facility] 01/16/2025 2:47 PM CDT 01/16/2025 6:28 PM CDT us Casey Paz MD ECG ORDERABLES Final Resu lt [facility] * (ABNORMAL) Differential, auto (01/16/2025 2:40 PM CDT) Neutrophil abs 5.04 1.50 - 6.50 K/cumm Comment:Testing performed by : [address] [address] Imm gran abs 0.05 0.00 - 0.10 K/cumm [place] Comment:Testing performed by : [address] [address] Lymphocyte abs 2.46 0.80 - 3.30 K/cumm [place] Comment:Testing performed by : [address] [address] Monocyte abs 0.91(H) 0.20 - 0.80 K/cumm [place] Comment:Testing performed by : [address] [address] Eosinophil abs 0.41 0.00 - 0.50 K/cumm [place] Comment:Testing performed by : [address] [address] Basophil abs 0.04 0.00 - 0.10 K/cumm [place] Comment:Testing performed by : [address] [address] Neutrophil pct 56.6 % [place] Comment: Interpretive Data Percent cell count reference ranges are not reported, since discordance with absolute values may lead to misinterpretation of CBC data. Current Interpretive Data was last revised on 2017. Testing performed by: [address] [address] Imm gran pct 0.6 % CERALEJANDRA Comment: Interpretive Data Percent cell count reference ranges are not reported, since discordance with absolute values may lead to misinterpretation of CBC data. Current Interpretive Data was last revised on 2017. Testing performed by: [address] [address] Lymphocyte pct 27.6 % [facility]ALEJANDRA Comment: Interpretive Data Percent cell count reference ranges are not reported, since discordance with absolute values may lead to misinterpretation of CBC data. Current Interpretive Data was last revised on 2017. Testing performed by: [address] [address] Monocyte pct 10.2 % CERALEJANDRA Comment: Interpretive Data Percent cell count reference ranges are not reported, since discordance with absolute values may lead to misinterpretation of CBC data. Current Interpretive Data was last revised on 2017. Testing performed by: [address] [address] Eosinophil pct 4.6 % CERALEJANDRA Comment: Interpretive Data Percent cell count reference ranges are not reported, since discordance with absolute values may lead to misinterpretation of CBC data. Current Interpretive Data was last revised on 2017. Testing performed by: [address] [address] Basophil pct 0.4 % [facility]ALEJANDRA Comment: Interpretive Data Percent cell count reference ranges are not reported, since discordance with absolute values may lead to misinterpretation of CBC data. Current Interpretive Data was last revised on 2017. Testing performed by: [address] [address] Blood 01/16/2025 2:40 PM CDT 01/16/2025 2:55 PM CDT Casey Paz MD LAB BLOOD ORDERABLES Final Result [place] [address] [facility] [place] [address] * (ABNORMAL) CBC with auto differential (01/16/2025 2:40 PM CDT) [facility] WBC 8.91 3.80 - 9.90 K/cumm Comment:Testing performed by : [address] [address] Hgb 8.3(L) 13.0 - 17.5 g/dL [place] Comment:Testing performed by : [address] [address] Hct 24.2(L) 38.9 - 50.3 % [place] Comment:Testing performed by : [address] [address] Plt 316 150 - 400 K/cumm [place] Comment:Testing performed by : [address] [address] MPV 10.1 9.1 - 12.3 fL [place] Comment:Testing performed by : [address] [address] RBC 2.80(L) 4.30 - 5.80 M/cumm [place] Comment:Testing performed by : [address] [address] MCV 86.4 81.3 - 96.4 fL [place] Comment:Testing performed by : [address] [address] MCH 29.6 27.1 - 33.3 pg [place] Comment:Testing performed by : [address] [address] MCHC 34.3 32.3 - 35.7 g/dL [place] Comment:Testing performed by : [address] [address] RDW CV 21.2(H) 11.1 - 14.9 % [place] Comment:Testing performed by : [address] [address] RDW SD 66.2(H) 35.7 - 48.1 fL [place] SHETTY Comment:Testing performed by : [address] [address] NRBC abs 0.07(H) 0.00 - 0.01 K/cumm [place] SHETTY Comment:Testing performed by : [address] [address] Morphologic Screen Results confirmed by manual morphology review. [place] SHETTY Comment:Testing performed by : [address] [address] Blood 01/16/2025 2:40 PM CDT 01/16/2025 2:55 PM CDT Casey Paz MD LAB BLOOD ORDERABLES Final Result Performing Organization Address City/[facility] Co de Phone Number [place] [address] [place] [address] * Troponin T high-sensitivity series (baseline, 2hr, 4hr, 6hr) (01/16/2025 2:40 PM CDT) Trop T hs <6 <=22 ng/L Comment: Interpretive Data For further hscTnT resources including the diagnostic algorithm and an aid in interpretation, copy and paste this link: [email or web address] Current Interpretive Data last revised 2020. Testing performed by: [address] [address] Blood 01/16/2025 2:40 PM CDT 01/16/2025 2:55 PM CDT Casey Paz MD LAB BLOOD ORDERABLES Final Result Performing Organization Address City/[facility]/ZIP Co de Phone Number [place] [address] [place] [address] * XR Chest 1 View (01/16/2025 2:20 [...] Bradley Rushing M.D. MF: CALDERON Report ID: [id number] Reading Location: [id number] Procedure Note Bradley Rushing, DO - 01/16/2025 [...] Bradley Rushing M.D. MF: CALDERON Report ID: [id number] Reading Location: [id number] us Casey Paz MD IMG XR PROCEDURES Final Re sult * Transfuse RBC (01/16/2025 2:09 PM CDT) Blood us Casey Paz MD BLOOD TRANSFUSION ORDERABL ES Final Result [place] [address] Department [place] [address] * Transfuse RBC: 1 Units (01/16/2025 2:09 PM CDT) Blood Casey Paz MD BLOOD TRANSFUSION ORDERABL ES Final Result * Prepare RBC: 1 Units (01/16/2025 11:30 AM CDT) Units requested 1 Comment:Testing performed by : [facility], [address] [place] [address]., [address] Units requested Ready [place] Comment:Testing performed by : [facility], [address] [place] [address]., [address] Unit Number [id number] Product code [id number] [place] Blood Expiration Date [id number] [place] Product Blood Type (for scanning) 6200 [place] Product Blood Type APOS [place] Dispense Status DISPENSED [place] Blood 01/16/2025 11:3 0 AM CDT 01/16/2025 11:29 AM CDT Casey Paz MD BLOOD BANK PRODUCT ORDERAB LES Final Result Performing Organization Address [facility] de Phone Number [place] [address] [place] [address] * Crossmatch (01/16/2025 10:42 AM CDT) Crossmatch Compatible [facility] Unit number for crossmatch [id number] [place] Crossmatch Compatible [place] Unit number for crossmatch [id number] [place] Blood 01/16/2025 10:4 2 AM CDT 01/16/2025 10:47 AM CDT Casey Paz MD LAB BLOOD BANK TEST ORDERA BLES Final Result Performing Organization Address City/[facility]/ZIP Co de Phone Number [address] [address] * Antibody screen (01/16/2025 10:42 AM CDT) Pathologist [facility] [place] Yesenia, indirect, Gel Interpretation Negative ABSC Comment:Testing performed by : [address] [address] Blood 01/16/2025 10:4 2 AM CDT 01/16/2025 10:47 AM CDT Narrative [facility] 01/16/2025 11:25 AM CDT Has the patient had Daratumumab or Isatuximab in the past 6 months?->Unknown Casey Paz MD LAB BLOOD BANK TEST ORDERA BLES Final Result Performing Organization Address City/[facility]/ZIP Co de Phone Number [address] [address] * ABO/Rh (01/16/2025 10:42 AM CDT) [facility] ABO/Rh A Positive Comment:Testing performed by : [facility], [address] [place] [address]., [address] Blood 01/16/2025 10:4 2 AM CDT 01/16/2025 10:47 AM CDT Narrative [facility] 01/16/2025 11:25 AM CDT Has the patient had Daratumumab or Isatuximab in the past 6 months?->Unknown Casey Paz MD LAB BLOOD BANK TEST ORDERA BLES Final Result [address] [address] * eGFR (01/16/2025 2:59 AM CDT) [facility] eGFR >90 >=60 mL/min/1. 73 m2 [...] was last reviewed 2021. Testing performed by: [address] [address] Blood 01/16/2025 2:59 AM CDT 01/16/2025 3:12 AM CDT us Rasta Garcia MD LAB BLOOD ORDERABLES Final Res ult [place] [id number] [facility] Department [place] [address] * (ABNORMAL) Differential, auto (01/16/2025 2:59 AM CDT) Neutrophil abs 4.31 1.50 - 6.50 K/cumm Comment:Testing performed by : [address] [address] Imm gran abs 0.03 0.00 - 0.10 K/cumm [place] Comment:Testing performed by : [address] [address] Lymphocyte abs 3.04 0.80 - 3.30 K/cumm [place] Comment:Testing performed by : [address] [address] Monocyte abs 0.81(H) 0.20 - 0.80 K/cumm [place] Comment:Testing performed by : [address] [address] Eosinophil abs 0.38 0.00 - 0.50 K/cumm [facility] Comment:Testing performed by : [address] [address] Basophil abs 0.04 0.00 - 0.10 K/cumm [place] Comment:Testing performed by : [address] [address] Neutrophil pct 50.1 % [facility] Comment: Interpretive Data Percent cell count reference ranges are not reported, since discordance with absolute values may lead to misinterpretation of CBC data. Current Interpretive Data was last revised on 2017. Testing performed by: [address] [address] Imm gran pct 0.3 % [facility] Comment: Interpretive Data Percent cell count reference ranges are not reported, since discordance with absolute values may lead to misinterpretation of CBC data. Current Interpretive Data was last revised on 2017. Testing performed by: [address] [address] Lymphocyte pct 35.3 % [facility] Comment: Interpretive Data Percent cell count reference ranges are not reported, since discordance with absolute values may lead to misinterpretation of CBC data. Current Interpretive Data was last revised on 2017. Testing performed by: [address] [address] Monocyte pct 9.4 % [facility] Comment: Interpretive Data Percent cell count reference ranges are not reported, since discordance with absolute values may lead to misinterpretation of CBC data. Current Interpretive Data was last revised on 2017. Testing performed by: [address] [address] Eosinophil pct 4.4 % [facility] Comment: Interpretive Data Percent cell count reference ranges are not reported, since discordance with absolute values may lead to misinterpretation of CBC data. Current Interpretive Data was last revised on 2017. Testing performed by: [address] [address] Basophil pct 0.5 % [facility] Comment: Interpretive Data Percent cell count reference ranges are not reported, since discordance with absolute values may lead to misinterpretation of CBC data. Current Interpretive Data was last revised on 2017. Testing performed by: [address] [address] Blood 01/16/2025 2:59 AM CDT 01/16/2025 3:13 AM CDT us Rasta Garcia MD LAB BLOOD ORDERABLES Final Res ult Performing Organization Address [facility] de Phone Number [address] [place] [address] * (ABNORMAL) Reticulocyte Count (01/16/2025 2:59 AM CDT) Pathologist [facility] [place] Retics, absolute 431(H) 20 - 87 K/cumm Comment:Testing performed by : [address] [address] Retics 18.7(H) 0.4 - 2.9 % [place] Comment:Testing performed by : [address] [address] Reticulocyte Hgb 28.0(L) 30.5 - 38.0 pg [place] Comment:Testing performed by : [address] [address] Blood 01/16/2025 2:59 AM CDT 01/16/2025 3:13 AM CDT us Rasta Garcia MD LAB BLOOD ORDERABLES Final Res ult Performing Organization Address [facility] de Phone Number [address] [address] * (ABNORMAL) CBC with auto differential (01/16/2025 2:59 AM CDT) Pathologist [facility] WBC 8.61 3.80 - 9.90 K/cumm Comment:Testing performed by : [address] [address] Hgb 7.0(L) 13.0 - 17.5 g/dL [place] Comment:Testing performed by : [address] [address] Hct 19.8(L) 38.9 - 50.3 % [place] Comment:Testing performed by : [address] [address] Plt 276 150 - 400 K/cumm [place] Comment:Testing performed by : [address] [address] MPV 10.1 9.1 - 12.3 fL [place] Comment:Testing performed by : [address], [address] RBC 2.31(L) 4.30 - 5.80 M/cumm [place] Comment:Testing performed by : [address], [address] MCV 85.7 81.3 - 96.4 fL [place] Comment:Testing performed by : [address], [address] MCH 30.3 27.1 - 33.3 pg [place] Comment:Testing performed by : [address] [address] MCHC 35.4 32.3 - 35.7 g/dL [place] Comment:Testing performed by : [address] [address] RDW CV 21.6(H) 11.1 - 14.9 % [place] Comment:Testing performed by : [address], [address] RDW SD 65.4(H) 35.7 - 48.1 fL [place] Comment:Testing performed by : [address] [address] NRBC abs 0.07(H) 0.00 - 0.01 K/cumm [place] Comment:Testing performed by : [address] [address] Morphologic Screen Results confirmed by manual morphology review. [place] Comment:Testing performed by : [address], [address] Blood 01/16/2025 2:59 AM CDT 01/16/2025 3:13 AM CDT us Rasta Garcia MD LAB BLOOD ORDERABLES Final Res ult [place]TT[place] [address] [facility] [address] Department [place] [address] * (ABNORMAL) Basic metabolic panel (01/16/2025 2:59 AM CDT) Sodium 138 135 - 145 mmol/L Comment:Testing performed by : [address] [address] Potassium, pl 3.2(L) 3.3 - 4.9 mmol/L [place] Comment:Testing performed by : [address] [address] Chloride 103 97 - 110 mmol/L [place] Comment:Testing performed by : [address] [address] CO2 25 22 - 32 mmol/L [place] Comment:Testing performed by : [address] [address] Anion gap 10 2 - 15 mmol/L [place] Comment:Testing performed by : [address] [address] BUN 3(L) 6 - 25 mg/dL [place] Comment:Testing performed by : [address] [address] Creatinine 0.49(L) 0.80 - 1.30 mg/dL [place] Comment:Testing performed by : [address] [address] Glucose 154 70 - 199 mg/dL [place] [...] was last revised 2022. Testing performed by: [address] [address] Calcium 8.7 8.5 - 10.3 mg/dL [place] Comment:Testing performed by : [address] [address] Blood 01/16/2025 2:59 AM CDT 01/16/2025 3:12 AM CDT us Rasta Garcia MD LAB BLOOD ORDERABLES Final Res ult [place] [address] [facility] [address] Department [place] [address] * (ABNORMAL) Blood smear review (01/15/2025 5:38 AM CDT) RBC morphology Present(A) Comment:Testing performed by : [address] [address] Hypochromasia 3-7/HPF(A) [place] Comment:Testing performed by : [address] [address] Anisocytosis Moderate(A) [place] Comment:Testing performed by : [address] [address] Schistocytes 1-2/HPF(A) [place] Comment:Testing performed by : [address] [address] Sickle cells 1-2/HPF(A) [place] Comment:Testing performed by : [address] [address] Elliptocytes 8-15/HPF(A) [place] Comment:Testing performed by : [address] [address] Target cells 3-7/HPF(A) [place] Comment:Testing performed by : [address] [address] Acanthocytes 3-7/HPF(A) [place] Comment:Testing performed by : [facility], [address] [place] [address]., [address] Platelet estimate Adequate [place] Comment:Testing performed by : [address] [address] Blood 01/15/2025 5:38 AM CDT 01/15/2025 6:12 AM CDT us Rasta Garcia MD LAB BLOOD ORDERABLES Final Res ult Performing Organization Address [facility] Co de Phone Number [place] [facility] [address] [place] [address] * eGFR (01/15/2025 5:38 AM CDT) eGFR [...] was last reviewed 2021. Testing performed by: [facility], [address] [place] [address]., [address] Blood 01/15/2025 5:38 AM CDT 01/15/2025 6:12 AM CDT us Rasta Garcia MD LAB BLOOD ORDERABLES Final Res ult Performing Organization Address City/[facility]/ZIP Co de Phone Number [place] [facility] [place] [address] * (ABNORMAL) Differential, auto (01/15/2025 5:38 AM CDT) Neutrophil abs 3.92 1.50 - 6.50 K/cumm Comment:Testing performed by : [address] [address] Imm gran abs 0.07 0.00 - 0.10 K/cumm [place] Comment:Testing performed by : [address] [address] Lymphocyte abs 3.68(H) 0.80 - 3.30 K/cumm [place] Comment:Testing performed by : [address] [address] Monocyte abs 0.80 0.20 - 0.80 K/cumm [facility] Comment:Testing performed by : [address] [address] Eosinophil abs 0.40 0.00 - 0.50 K/cumm [place] Comment:Testing performed by : [address] [address] Basophil abs 0.04 0.00 - 0.10 K/cumm [facility] Comment:Testing performed by : [address] [address] Neutrophil pct 44.0 % [facility] Comment: Interpretive Data Percent cell count reference ranges are not reported, since discordance with absolute values may lead to misinterpretation of CBC data. Current Interpretive Data was last revised on 2017. Testing performed by: [address] [address] Imm gran pct 0.8 % [facility] Comment: Interpretive Data Percent cell count reference ranges are not reported, since discordance with absolute values may lead to misinterpretation of CBC data. Current Interpretive Data was last revised on 2017. Testing performed by: [address] [address] Lymphocyte pct 41.3 % [facility] Comment: Interpretive Data Percent cell count reference ranges are not reported, since discordance with absolute values may lead to misinterpretation of CBC data. Current Interpretive Data was last revised on 2017. Testing performed by: [address] [address] Monocyte pct 9.0 % [place] Comment: Interpretive Data Percent cell count reference ranges are not reported, since discordance with absolute values may lead to misinterpretation of CBC data. Current Interpretive Data was last revised on 2017. Testing performed by: [address] [address] Eosinophil pct 4.5 % [place] Comment: Interpretive Data Percent cell count reference ranges are not reported, since discordance with absolute values may lead to misinterpretation of CBC data. Current Interpretive Data was last revised on 2017. Testing performed by: [address] [address] Basophil pct 0.4 % [place] Comment: Interpretive Data Percent cell count reference ranges are not reported, since discordance with absolute values may lead to misinterpretation of CBC data. Current Interpretive Data was last revised on 2017. Testing performed by: [address] [address] Blood 01/15/2025 5:38 AM CDT 01/15/2025 6:12 AM CDT us Rasta Garcia MD LAB BLOOD ORDERABLES Final Res ult [facility] [address] Department [place] [address] * (ABNORMAL) Reticulocyte Count (01/15/2025 5:38 AM CDT) Retics, absolute 497(H) 20 - 87 K/cumm Comment:Testing performed by : [address] [address] Retics 20.2(H) 0.4 - 2.9 % [place] Comment:Testing performed by : [address] [address] Reticulocyte Hgb 28.3(L) 30.5 - 38.0 pg [place] Comment:Testing performed by : [address] [address] Blood 01/15/2025 5:38 AM CDT 01/15/2025 6:12 AM CDT us Rasta Garcia MD LAB BLOOD ORDERABLES Final Res ult [place] [address] [facility] [address] Department [place] [address] * (ABNORMAL) CBC with auto differential (01/15/2025 5:38 AM CDT) WBC 8.91 3.80 - 9.90 K/cumm Comment:Testing performed by : [address] [address] Hgb 7.3(L) 13.0 - 17.5 g/dL [place] Comment:Testing performed by : [address] [address] Hct 21.4(L) 38.9 - 50.3 % [place] Comment:Testing performed by : [address] [address] Plt 316 150 - 400 K/cumm [place] Comment:Testing performed by : [address] [address] MPV 10.1 9.1 - 12.3 fL [place] Comment:Testing performed by : [address] [address] RBC 2.46(L) 4.30 - 5.80 M/cumm [place] Comment:Testing performed by : [address] [address] MCV 87.0 81.3 - 96.4 fL [place] Comment:Testing performed by : [address] [address] MCH 29.7 27.1 - 33.3 pg [place] Comment:Testing performed by : [address] [address] MCHC 34.1 32.3 - 35.7 g/dL [place] SHETTY Comment:Testing performed by : [facility], [address] [place] [address]., [address] RDW CV 21.6(H) 11.1 - 14.9 % [place] SHETTY Comment:Testing performed by : [address] [address] RDW SD 67.9(H) 35.7 - 48.1 fL [place] SHETTY Comment:Testing performed by : [address] [address] NRBC abs 0.13(H) 0.00 - 0.01 K/cumm [place] Comment:Testing performed by : [address] [address] Blood 01/15/2025 5:38 AM CDT 01/15/2025 6:12 AM CDT us Rasta Garcia MD LAB BLOOD ORDERABLES Final Res ult [place] [facility] Department [place] [address] * (ABNORMAL) Basic metabolic panel (01/15/2025 5:38 AM CDT) Sodium 136 135 - 145 mmol/L Comment:Testing performed by : [address] [address] Potassium, pl 3.2(L) 3.3 - 4.9 mmol/L [place] Comment:Testing performed by : [address] [address] Chloride 102 97 - 110 mmol/L [place] Comment:Testing performed by : [address] [address] CO2 24 22 - 32 mmol/L [place] Comment:Testing performed by : [address] [address] Anion gap 10 2 - 15 mmol/L [place] Comment:Testing performed by : [address] [address] BUN 3(L) 6 - 25 mg/dL [place] SHETTY Comment:Testing performed by : [address] [address] Creatinine 0.44(L) 0.80 - 1.30 mg/dL [facility] Comment:Testing performed by : [address] [address] Glucose 116 70 - 199 mg/dL [facility] [...] was last revised 2022. Testing performed by: [address] [address] Calcium 9.0 8.5 - 10.3 mg/dL [facility] Comment:Testing performed by : [address] [address] Blood 01/15/2025 5:38 AM CDT 01/15/2025 6:12 AM CDT us Rasta Garcia MD LAB BLOOD ORDERABLES Final Res ult [facility] [address] [facility] Department of Laboratories [place], [place] [id number] * eGFR (01/14/2025 6:18 AM CDT) eGFR [...] was last reviewed 2021. Testing performed by: [address] [address] Blood 01/14/2025 6:18 AM CDT 01/14/2025 6:28 AM CDT us Rasta Garcia MD LAB BLOOD ORDERABLES Final Res ult [facility] Department [place] [address] * Differential, auto (01/14/2025 6:18 AM CDT) Neutrophil abs 4.75 1.50 - 6.50 K/cumm Comment:Testing performed by : [address] [address] Imm gran abs 0.04 0.00 - 0.10 K/cumm [facility] Comment:Testing performed by : [address] [address] Lymphocyte abs 3.30 0.80 - 3.30 K/cumm [facility] Comment:Testing performed by : [address] [address] Monocyte abs 0.76 0.20 - 0.80 K/cumm [facility] Comment:Testing performed by : [address] [address] Eosinophil abs 0.14 0.00 - 0.50 K/cumm [facility] Comment:Testing performed by : [address] [address] Basophil abs 0.04 0.00 - 0.10 K/cumm [facility] Comment:Testing performed by : [address] [address] Neutrophil pct 52.7 % [facility] Comment: Interpretive Data Percent cell count reference ranges are not reported, since discordance with absolute values may lead to misinterpretation of CBC data. Current Interpretive Data was last revised on 2017. Testing performed by: [address] [address] Imm gran pct 0.4 % [facility] Comment: Interpretive Data Percent cell count reference ranges are not reported, since discordance with absolute values may lead to misinterpretation of CBC data. Current Interpretive Data was last revised on 2017. Testing performed by: [address] [address] Lymphocyte pct 36.5 % [facility] Comment: Interpretive Data Percent cell count reference ranges are not reported, since discordance with absolute values may lead to misinterpretation of CBC data. Current Interpretive Data was last revised on 2017. Testing performed by: [address] [address] Monocyte pct 8.4 % [facility] Comment: Interpretive Data Percent cell count reference ranges are not reported, since discordance with absolute values may lead to misinterpretation of CBC data. Current Interpretive Data was last revised on 2017. Testing performed by: [address] [address] Eosinophil pct 1.6 % [facility] Comment: Interpretive Data Percent cell count reference ranges are not reported, since discordance with absolute values may lead to misinterpretation of CBC data. Current Interpretive Data was last revised on 2017. Testing performed by: [address] [address] Basophil pct 0.4 % [facility] Comment: Interpretive Data Percent cell count reference ranges are not reported, since discordance with absolute values may lead to misinterpretation of CBC data. Current Interpretive Data was last revised on 2017. Testing performed by: [address] [address] Blood 01/14/2025 6:18 AM CDT 01/14/2025 6:28 AM CDT us Rasta Garcia MD LAB BLOOD ORDERABLES Final Res ult Performing Organization Address [facility] Co de Phone Number [facility] [place] [address] * (ABNORMAL) Reticulocyte Count (01/14/2025 6:18 AM CDT) Retics, absolute 537(H) 20 - 87 K/cumm Comment:Testing performed by : [address] [address] Retics 21.5(H) 0.4 - 2.9 % [facility] SHETTY Comment:Testing performed by : [address] [address] Reticulocyte Hgb 28.4(L) 30.5 - 38.0 pg [facility] SHETTY Comment:Testing performed by : [address] [address] Blood 01/14/2025 6:18 AM CDT 01/14/2025 6:28 AM CDT us Rasta Garcia MD LAB BLOOD ORDERABLES Final Res ult Performing Organization Address [facility] de Phone Number [facility] [address] [place] [address] * (ABNORMAL) CBC with auto differential (01/14/2025 6:18 AM CDT) WBC 9.03 3.80 - 9.90 K/cumm Comment:Testing performed by : [address] [address] Hgb 7.5(L) 13.0 - 17.5 g/dL [facility] SHETTY Comment:Testing performed by : [address] [address] Hct 21.8(L) 38.9 - 50.3 % [facility] Comment:Testing performed by : [address] [address] Plt 287 150 - 400 K/cumm [facility] Comment:Testing performed by : [address], [address] MPV 10.1 9.1 - 12.3 fL [facility] Comment:Testing performed by : [address] [address] RBC 2.47(L) 4.30 - 5.80 M/cumm [facility] Comment:Testing performed by : [address], [address] MCV 88.3 81.3 - 96.4 fL [facility] Comment:Testing performed by : [address], [address] MCH 30.4 27.1 - 33.3 pg [facility] Comment:Testing performed by : [address], [address] MCHC 34.4 32.3 - 35.7 g/dL [facility] Comment:Testing performed by : [address], [address] RDW CV 22.0(H) 11.1 - 14.9 % [facility] Comment:Testing performed by : [address], [address] RDW SD 69.9(H) 35.7 - 48.1 fL [facility] Comment:Testing performed by : [address], [address] NRBC abs 0.18(H) 0.00 - 0.01 K/cumm [facility] Comment:Testing performed by : [address], [address] Morphologic Screen Results confirmed by manual morphology review. [facility] Comment:Testing performed by : [address], [address] Blood 01/14/2025 6:18 AM CDT 01/14/2025 6:28 AM CDT us Rasta Garcia MD LAB BLOOD ORDERABLES Edited Re cindi - Final [facility] [address] [facility] Department [place] [address] * (ABNORMAL) Basic metabolic panel (01/14/2025 6:18 AM CDT) Sodium 137 135 - 145 mmol/L Comment:Testing performed by : [address] [address] Potassium, pl 3.5 3.3 - 4.9 mmol/L [facility] Comment:Testing performed by : [address] [address] Chloride 103 97 - 110 mmol/L [facility] Comment:Testing performed by : [address] [address] CO2 24 22 - 32 mmol/L [facility] Comment:Testing performed by : [address] [address] Anion gap 10 2 - 15 mmol/L [facility] Comment:Testing performed by : [address] [address] BUN 2(L) 6 - 25 mg/dL [facility] Comment:Testing performed by : [address] [address] Creatinine 0.45(L) 0.80 - 1.30 mg/dL [facility] Comment:Testing performed by : [address] [address] Glucose 141 70 - 199 mg/dL [facility] [...] was last revised 2022. Testing performed by: [address] [address] Calcium 8.8 8.5 - 10.3 mg/dL [facility] SHETTY Comment:Testing performed by : [facility], [address] [place] [address], [place]., [address] Blood 01/14/2025 6:18 AM CDT 01/14/2025 6:28 AM CDT us Rasta Garcia MD LAB BLOOD ORDERABLES Final Res ult [facility] [address] [facility] Department [place] [address] * XR Chest PA Lateral 2 Views [...] Gee Laboy D.O. AP: AP Report ID: [id number] Reading Location: [place] [address] Procedure Note Gee Laboy DO - 01/11/2025 [...] Gee Laboy D.O. AP: AP Report ID: [id number] Reading Location: [place] [address] Casey Paz MD IMG XR PROCEDURES Final Re sult * (ABNORMAL) Manual Differential (01/11/2025 1:12 PM CDT) Differential Manual Comment:Testing performed by : [address] [address] Cells Counted 100 [facility] Comment:Testing performed by : [address] [address] Neutrophil abs 4.90 1.50 - 6.50 K/cumm [facility] Comment:Testing performed by : [address] [address] Lymphocyte abs 4.39(H) 0.80 - 3.30 K/cumm [facility] Comment:Testing performed by : [address] [address] Monocyte abs 0.51 0.20 - 0.80 K/cumm [facility] Comment:Testing performed by : [address] [address] Eosinophil abs 0.41 0.00 - 0.50 K/cumm [facility] Comment:Testing performed by : [address] [address] Neutrophil pct 48.0 % [facility] Comment: Interpretive Data Percent cell count reference ranges are not reported, since discordance with absolute values may lead to misinterpretation of CBC data. Current Interpretive Data was last revised on 2017. Testing performed by: [address] [address] Lymphocyte pct 43.0 % [facility] Comment: Interpretive Data Percent cell count reference ranges are not reported, since discordance with absolute values may lead to misinterpretation of CBC data. Current Interpretive Data was last revised on 2017. Testing performed by: [address] [address] Monocyte pct 5.0 % [facility] Comment: Interpretive Data Percent cell count reference ranges are not reported, since discordance with absolute values may lead to misinterpretation of CBC data. Current Interpretive Data was last revised on 2017. Testing performed by: [address] [address] Eosinophil pct 4.0 % [facility] Comment: Interpretive Data Percent cell count reference ranges are not reported, since discordance with absolute values may lead to misinterpretation of CBC data. Current Interpretive Data was last revised on 2017. Testing performed by: [address], [place]., [address] RBC morphology Present(A) [facility] Comment:Testing performed by : [address] [address] Polychromasia 3-7/HPF(A) [facility] Comment:Testing performed by : [address] [address] Anisocytosis Marked(A) [facility] Comment:Testing performed by : [address] [address] Sickle cells 1-2/HPF(A) [facility] Comment:Testing performed by : [address] [address] Elliptocytes 8-15/HPF(A) [facility] Comment:Testing performed by : [address] [address] Teardrop cells 3-7/HPF(A) [facility] Comment:Testing performed by : [address] [address] Platelet morphology Normal [facility] Comment:Testing performed by : [facility], [address] [place] [address]., [address] Platelet estimate Adequate [facility] Comment:Testing performed by : [address] [address] Blood 01/11/2025 1:12 PM CDT 01/11/2025 1:15 PM CDT us Rasta Garcia MD LAB BLOOD ORDERABLES Final Res ult [facility] [address] [facility] Department [place] [address] * eGFR (01/11/2025 1:12 PM CDT) eGFR [...] was last reviewed 2021. Testing performed by: [address] [address] Blood 01/11/2025 1:12 PM CDT 01/11/2025 1:15 PM CDT us Rasta Garcia MD LAB BLOOD ORDERABLES Final Res ult Performing Organization Address [facility] Co de Phone Number [facility] [place] [place] [address] * (ABNORMAL) Reticulocyte Count (01/11/2025 1:12 PM CDT) Pathologist [facility] [place] Retics, absolute 585(H) 20 - 87 K/cumm Comment:Testing performed by : [address] [address] Retics 20.8(H) 0.4 - 2.9 % [facility] SHETTY Comment:Testing performed by : [address] [address] Reticulocyte Hgb 30.1(L) 30.5 - 38.0 pg [facility] SHETTY Comment:Testing performed by : [address] [address] Blood 01/11/2025 1:12 PM CDT 01/11/2025 1:15 PM CDT us Rasta Garcia MD LAB BLOOD ORDERABLES Final Res ult Performing Organization Address [facility] de Phone Number [facility] [place] [address] * (ABNORMAL) CBC with auto differential (01/11/2025 1:12 PM CDT) [facility] WBC 10.21(H) 3.80 - 9.90 K/cumm Comment:Testing performed by : [address] [address] Hgb 8.3(L) 13.0 - 17.5 g/dL [facility] SHETTY Comment:Testing performed by : [address] [address] Hct 24.3(L) 38.9 - 50.3 % [facility] SHETTY Comment:Testing performed by : [address] [address] Plt 379 150 - 400 K/cumm [facility] SHETTY Comment:Testing performed by : [address] [address] MPV 9.9 9.1 - 12.3 fL [facility] SHETTY Comment:Testing performed by : [address] [address] RBC 2.82(L) 4.30 - 5.80 M/cumm [facility] SHETTY Comment:Testing performed by : [address] [address] MCV 86.2 81.3 - 96.4 fL [facility] SHETTY Comment:Testing performed by : [address] [address] MCH 29.4 27.1 - 33.3 pg [facility] SHETTY Comment:Testing performed by : [address] [address] MCHC 34.2 32.3 - 35.7 g/dL [facility] SHETTY Comment:Testing performed by : [address] [address] RDW CV 23.4(H) 11.1 - 14.9 % [facility] Comment:Testing performed by : [address] [address] RDW SD 70.7(H) 35.7 - 48.1 fL [facility] Comment:Testing performed by : [address] [address] NRBC abs 0.23(H) 0.00 - 0.01 K/cumm [facility] Comment:Testing performed by : [address] [address] Blood 01/11/2025 1:12 PM CDT 01/11/2025 1:15 PM CDT us Rasta Garcia MD LAB BLOOD ORDERABLES Final Res ult [facility] [address] [facility] Department [place] [address] * (ABNORMAL) Basic metabolic panel (01/11/2025 1:12 PM CDT) Sodium 138 135 - 145 mmol/L Comment:Testing performed by : [facility], [address] [place] [address]., [address] Potassium, pl 3.7 3.3 - 4.9 mmol/L [facility] Comment:Testing performed by : [address], [place]., [address] Chloride 103 97 - 110 mmol/L [facility] Comment:Testing performed by : [address], [place]., [address] CO2 24 22 - 32 mmol/L [facility] Comment:Testing performed by : [address], [place]., [address] Anion gap 11 2 - 15 mmol/L [facility] Comment:Testing performed by : [address], [place]., [address] BUN 2(L) 6 - 25 mg/dL [facility] Comment:Testing performed by : [address], [place]., [address] Creatinine 0.50(L) 0.80 - 1.30 mg/dL [facility] Comment:Testing performed by : [address] [address] Glucose 110 70 - 199 mg/dL [facility] Comment: Interpretive Data Fasting glucose >/= [...] was last revised 2022. Testing performed by: [address] [address] Calcium 8.7 8.5 - 10.3 mg/dL [facility] Comment:Testing performed by : [address], [place]., [address] Blood 01/11/2025 1:12 PM CDT 01/11/2025 1:15 PM CDT us Rasta Garcia MD LAB BLOOD ORDERABLES Final Res ult [facility] [address] [facility] Department [place] [address] * XR Chest 1 View (01/10/2025 1:39 [...] Anne Merchant M.D. FT: FT Report ID: [id number] Reading Location: [id number] Procedure Note Anne Hernandes MD - 01/10/2025 [...] Anne Merchant M.D. FT: FT Report ID: [id number] Reading Location: [place] [address] us Jaya Garcia DO IMG XR PROCEDURES [...] was last reviewed 2021. Testing performed by: [facility], [address] [place] [address]., [address] Blood 01/10/2025 10:2 9 AM CDT 01/10/2025 10:53 AM CDT us Rasta Garcia MD LAB BLOOD ORDERABLES Final Res ult [facility] [address] [facility] Department [place] [address] * (ABNORMAL) Differential, auto (01/10/2025 10:29 AM CDT) Neutrophil abs 4.63 1.50 - 6.50 K/cumm Comment:Testing performed by : [address] [address] Imm gran abs 0.08 0.00 - 0.10 K/cumm [facility] Comment:Testing performed by : [address], [place]., [address] Lymphocyte abs 4.22(H) 0.80 - 3.30 K/cumm [facility] Comment:Testing performed by : [address], [place]., [address] Monocyte abs 0.96(H) 0.20 - 0.80 K/cumm [facility] Comment:Testing performed by : [address] [address] Eosinophil abs 0.20 0.00 - 0.50 K/cumm [facility] Comment:Testing performed by : [address] [address] Basophil abs 0.06 0.00 - 0.10 K/cumm [facility] Comment:Testing performed by : [address] [address] Neutrophil pct 45.5 % [facility] Comment: Interpretive Data Percent cell count reference ranges are not reported, since discordance with absolute values may lead to misinterpretation of CBC data. Current Interpretive Data was last revised on 2017. Testing performed by: [address] [address] Imm gran pct 0.8 % [facility] Comment: Interpretive Data Percent cell count reference ranges are not reported, since discordance with absolute values may lead to misinterpretation of CBC data. Current Interpretive Data was last revised on 2017. Testing performed by: [address] [address] Lymphocyte pct 41.6 % [facility] Comment: Interpretive Data Percent cell count reference ranges are not reported, since discordance with absolute values may lead to misinterpretation of CBC data. Current Interpretive Data was last revised on 2017. Testing performed by: [address] [address] Monocyte pct 9.5 % [facility] Comment: Interpretive Data Percent cell count reference ranges are not reported, since discordance with absolute values may lead to misinterpretation of CBC data. Current Interpretive Data was last revised on 2017. Testing performed by: [address] [address] Eosinophil pct 2.0 % [facility] Comment: Interpretive Data Percent cell count reference ranges are not reported, since discordance with absolute values may lead to misinterpretation of CBC data. Current Interpretive Data was last revised on 2017. Testing performed by: [address] [address] Basophil pct 0.6 % [facility] Comment: Interpretive Data Percent cell count reference ranges are not reported, since discordance with absolute values may lead to misinterpretation of CBC data. Current Interpretive Data was last revised on 2017. Testing performed by: [address] [address] Blood 01/10/2025 10:2 9 AM CDT 01/10/2025 10:52 AM CDT us Rasta Garcia MD LAB BLOOD ORDERABLES Final Res ult [facility] [address] [facility] Department [place] [address] * (ABNORMAL) Reticulocyte Count (01/10/2025 10:29 AM CDT) Retics, absolute 624(H) 20 - 87 K/cumm Comment:Testing performed by : [address] [address] Retics 21.5(H) 0.4 - 2.9 % [facility] SHETTY Comment:Testing performed by : [address] [address] Reticulocyte Hgb 28.1(L) 30.5 - 38.0 pg [facility] SHETTY Comment:Testing performed by : [address] [address] Blood 01/10/2025 10:2 9 AM CDT 01/10/2025 10:52 AM CDT us Rasta Garcia MD LAB BLOOD ORDERABLES Final Res ult [facility] [address] [facility] Department [place] [address] * (ABNORMAL) CBC with auto differential (01/10/2025 10:29 AM CDT) WBC 10.15(H) 3.80 - 9.90 K/cumm Comment:Testing performed by : [address] [address] Hgb 7.5(L) 13.0 - 17.5 g/dL [facility] Comment:Testing performed by : [address] [address] Hct 22.0(L) 38.9 - 50.3 % [facility] Comment:Testing performed by : [address] [address] Plt 324 150 - 400 K/cumm [facility] Comment:Testing performed by : [address] [address] MPV 10.3 9.1 - 12.3 fL [facility] Comment:Testing performed by : [address] [address] RBC 2.51(L) 4.30 - 5.80 M/cumm [facility] Comment:Testing performed by : [address] [address] MCV 87.6 81.3 - 96.4 fL [facility] Comment:Testing performed by : [address] [address] MCH 29.9 27.1 - 33.3 pg [facility] SHETTY Comment:Testing performed by : [address] [address] MCHC 34.1 32.3 - 35.7 g/dL [facility] Comment:Testing performed by : [address] [address] RDW CV 22.9(H) 11.1 - 14.9 % [facility] SHETTY Comment:Testing performed by : [address] [address] RDW SD 69.4(H) 35.7 - 48.1 fL [facility] SHE[facility] Comment:Testing performed by : [address] [address] NRBC abs 0.15(H) 0.00 - 0.01 K/cumm [facility] Comment:Testing performed by : [address] [address] Morphologic Screen Results confirmed by manual morphology review. [facility] Comment:Testing performed by : [address] [address] Blood 01/10/2025 10:2 9 AM CDT 01/10/2025 10:52 AM CDT Rasta Garcia MD LAB BLOOD ORDERABLES Edited Re sharifat - Final [facility] [address] [facility] Department [place] [address] * (ABNORMAL) Basic metabolic panel (01/10/2025 10:29 AM CDT) Sodium 138 135 - 145 mmol/L Comment:Testing performed by : [address] [address] Potassium, pl 3.5 3.3 - 4.9 mmol/L [facility] SHETTY Comment:Testing performed by : [address] [address] Chloride 104 97 - 110 mmol/L [facility] Comment:Testing performed by : [address] [address] CO2 24 22 - 32 mmol/L [facility] SHE[facility] Comment:Testing performed by : [address] [address] Anion gap 10 2 - 15 mmol/L [facility] Comment:Testing performed by : [address] [address] BUN 2(L) 6 - 25 mg/dL [facility] Comment:Testing performed by : [address] [address] Creatinine 0.50(L) 0.80 - 1.30 mg/dL [facility] SHETT[facility] Comment:Testing performed by : [address] [address] Glucose 98 70 - 199 mg/dL [facility] [...] was last revised 2022. Testing performed by: [address] [address] Calcium 8.4(L) 8.5 - 10.3 mg/dL [facility] Comment:Testing performed by : [address] [address] Blood 01/10/2025 10:2 9 AM CDT 01/10/2025 10:53 AM CDT us Rasta Garcia MD LAB BLOOD ORDERABLES Final Res ult [facility] [address] [facility] Department [place] [address] * (ABNORMAL) Differential, auto (01/09/2025 4:55 AM CDT) Neutrophil abs 4.56 1.50 - 6.50 K/cumm Comment:Testing performed by : [address] [address] Imm gran abs 0.05 0.00 - 0.10 K/cumm [facility] Comment:Testing performed by : [address] [address] Lymphocyte abs 3.68(H) 0.80 - 3.30 K/cumm [facility] Comment:Testing performed by : [address] [address] Monocyte abs 1.48(H) 0.20 - 0.80 K/cumm [facility] Comment:Testing performed by : [address] [address] Eosinophil abs 0.24 0.00 - 0.50 K/cumm [facility] Comment:Testing performed by : [address], [place]., [address] Basophil abs 0.06 0.00 - 0.10 K/cumm [facility] Comment:Testing performed by : [address] [address] Neutrophil pct 45.3 % [facility] Comment: Interpretive Data Percent cell count reference ranges are not reported, since discordance with absolute values may lead to misinterpretation of CBC data. Current Interpretive Data was last revised on 2017. Testing performed by: [address] [address] Imm gran pct 0.5 % [facility] Comment: Interpretive Data Percent cell count reference ranges are not reported, since discordance with absolute values may lead to misinterpretation of CBC data. Current Interpretive Data was last revised on 2017. Testing performed by: [address] [address] Lymphocyte pct 36.5 % [facility] Comment: Interpretive Data Percent cell count reference ranges are not reported, since discordance with absolute values may lead to misinterpretation of CBC data. Current Interpretive Data was last revised on 2017. Testing performed by: [address] [address] Monocyte pct 14.7 % [facility] Comment: Interpretive Data Percent cell count reference ranges are not reported, since discordance with absolute values may lead to misinterpretation of CBC data. Current Interpretive Data was last revised on 2017. Testing performed by: [address] [address] Eosinophil pct 2.4 % [facility] Comment: Interpretive Data Percent cell count reference ranges are not reported, since discordance with absolute values may lead to misinterpretation of CBC data. Current Interpretive Data was last revised on 2017. Testing performed by: [address] [address] Basophil pct 0.6 % [facility] Comment: Interpretive Data Percent cell count reference ranges are not reported, since discordance with absolute values may lead to misinterpretation of CBC data. Current Interpretive Data was last revised on 2017. Testing performed by: [address] [address] Blood 01/09/2025 4:55 AM CDT 01/09/2025 4:59 AM CDT us Rasta Garcia MD LAB BLOOD ORDERABLES Final Res ult Performing Organization Address [facility] de Phone Number [facility] [address] [place] [address] * (ABNORMAL) Reticulocyte Count (01/09/2025 4:55 AM CDT) Retics, absolute 566(H) 20 - 87 K/cumm Comment:Testing performed by : [address] [address] Retics 23.2(H) 0.4 - 2.9 % [facility] SHE[facility] Comment:Testing performed by : [address] [address] Reticulocyte Hgb 28.1(L) 30.5 - 38.0 pg [facility] SHE[facility] Comment:Testing performed by : [address] [address] Blood 01/09/2025 4:55 AM CDT 01/09/2025 4:59 AM CDT us Rasta Garcia MD LAB BLOOD ORDERABLES Final Res ult Performing Organization Address [facility] [facility] [place] Co de Phone Number [facility] [place] [address] * (ABNORMAL) CBC with auto differential (01/09/2025 4:55 AM CDT) [facility] Signature WBC 10.07(H) 3.80 - 9.90 K/cumm Comment:Testing performed by : [address] [address] Hgb 7.3(L) 13.0 - 17.5 g/dL [facility] Comment:Testing performed by : [address] [address] Hct 21.4(L) 38.9 - 50.3 % [facility] Comment:Testing performed by : [address], [address] Plt 285 150 - 400 K/cumm [place] Comment:Testing performed by : [address] [address] MPV 10.1 9.1 - 12.3 fL [place] Comment:Testing performed by : [address], [address] RBC 2.44(L) 4.30 - 5.80 M/cumm [place] Comment:Testing performed by : [address], [address] MCV 87.7 81.3 - 96.4 fL [place] Comment:Testing performed by : [address] [address] MCH 29.9 27.1 - 33.3 pg [facility] Comment:Testing performed by : [address], [address] MCHC 34.1 32.3 - 35.7 g/dL [facility] Comment:Testing performed by : [address], [address] RDW CV 22.1(H) 11.1 - 14.9 % [facility] Comment:Testing performed by : [address] [address] RDW SD 67.3(H) 35.7 - 48.1 fL [facility] Comment:Testing performed by : [address], [address] NRBC abs 0.19(H) 0.00 - 0.01 K/cumm [facility] SHETTY Comment:Testing performed by : [address] [address] Morphologic Screen Results confirmed by manual morphology review. [facility] SHETTY Comment:Testing performed by : [address] [address] Blood 01/09/2025 4:55 AM CDT 01/09/2025 4:59 AM CDT us Rasta Garcia MD LAB BLOOD ORDERABLES Final Res ult [facility] SHETTY [address] [facility] Department of Laboratories [place], [place] [id number] * eGFR (01/09/2025 4:50 AM CDT) eGFR [...] was last reviewed 2021. Testing performed by: [address] [address] Blood 01/09/2025 4:50 AM CDT 01/09/2025 4:59 AM CDT us Rasta Garcia MD LAB BLOOD ORDERABLES Final Res ult [facility] [address] [facility] Department [place] [address] * (ABNORMAL) Basic metabolic panel (01/09/2025 4:50 AM CDT) Sodium 137 135 - 145 mmol/L Comment:Testing performed by : [address] [address] Potassium, pl 3.9 3.3 - 4.9 mmol/L [facility] Comment:Testing performed by : [address] [address] Chloride 102 97 - 110 mmol/L [facility] Comment:Testing performed by : [address] [address] CO2 23 22 - 32 mmol/L [facility] Comment:Testing performed by : [address] [address] Anion gap 12 2 - 15 mmol/L [facility] Comment:Testing performed by : [address] [address] BUN 4(L) 6 - 25 mg/dL [facility] Comment:Testing performed by : [address] [address] Creatinine 0.56(L) 0.80 - 1.30 mg/dL [facility] Comment:Testing performed by : [address] [address] Glucose 109 70 - 199 mg/dL [facility] [...] was last revised 2022. Testing performed by: [address], [place]., [address] Calcium 8.8 8.5 - 10.3 mg/dL [facility] SHETTY Comment:Testing performed by : [address] [address] Blood 01/09/2025 4:50 AM CDT 01/09/2025 4:59 AM CDT us Rasta Garcia MD LAB BLOOD ORDERABLES Final Res ult [facility] DIOGENES [address] [facility] Department [place] [address] * CT Abdomen Pelvis WO Contrast (01/08/2025 [...] Anival Cotton M.D. NS: NS Report ID: [id number] Reading Location: [id number] Procedure Note Anival Cotton MD - 01/08/2025 [...] Anival Cotton M.D. NS: NS Report ID: [id number] Reading Location: [place] [address] Jaya Garcia DO IMG CT PROCEDURES Final Result * (ABNORMAL) Manual Differential (01/07/2025 10:48 AM CDT) Differential Manual Comment:Testing performed by : [address] [address] Cells Counted 100 [facility] Comment:Testing performed by : [address] [address] Neutrophil abs 3.92 1.50 - 6.50 K/cumm [facility] Comment:Testing performed by : [address] [address] Lymphocyte abs 4.44(H) 0.80 - 3.30 K/cumm [facility] Comment:Testing performed by : [address] [address] Monocyte abs 0.26 0.20 - 0.80 K/cumm [place] Comment:Testing performed by : [address], [place]., [address] Eosinophil abs 0.09 0.00 - 0.50 K/cumm [facility] Comment:Testing performed by : [address] [address] Neutrophil pct 45.0 % [facility] Comment: Interpretive Data Percent cell count reference ranges are not reported, since discordance with absolute values may lead to misinterpretation of CBC data. Current Interpretive Data was last revised on 2017. Testing performed by: [address] [address] Lymphocyte pct 51.0 % [facility] Comment: Interpretive Data Percent cell count reference ranges are not reported, since discordance with absolute values may lead to misinterpretation of CBC data. Current Interpretive Data was last revised on 2017. Testing performed by: [address] [address] Monocyte pct 3.0 % [facility] Comment: Interpretive Data Percent cell count reference ranges are not reported, since discordance with absolute values may lead to misinterpretation of CBC data. Current Interpretive Data was last revised on 2017. Testing performed by: [address] [address] Eosinophil pct 1.0 % [facility] Comment: Interpretive Data Percent cell count reference ranges are not reported, since discordance with absolute values may lead to misinterpretation of CBC data. Current Interpretive Data was last revised on 2017. Testing performed by: [address] [address] RBC morphology Present(A) [facility] Comment:Testing performed by : [address] [address] Anisocytosis Marked(A) [facility] Comment:Testing performed by : [address] [address] Sickle cells 1-2/HPF(A) [facility] Comment:Testing performed by : [address] [address] Elliptocytes 3-7/HPF(A) [facility] Comment:Testing performed by : [address] [address] Target cells 3-7/HPF(A) [facility] Comment:Testing performed by : [address] [address] Platelet morphology Normal [facility] Comment:Testing performed by : [address] [address] Platelet estimate Adequate [facility] Comment:Testing performed by : [address] [address] Blood 01/07/2025 10:4 8 AM CDT 01/07/2025 11:07 AM CDT us Jaya Garcia DO LAB BLOOD ORDERABLES Final Resul t [facility] Department [place] [address] * eGFR (01/07/2025 10:48 AM CDT) eGFR [...] was last reviewed 2021. Testing performed by: [address] [address] Blood 01/07/2025 10:4 8 AM CDT 01/07/2025 11:07 AM CDT us Rasta Garcia MD LAB BLOOD ORDERABLES Final Res ult Performing Organization Address [facility] [place]/[facility] Co de Phone Number [facility] [place] [address] * (ABNORMAL) Reticulocyte Count (01/07/2025 10:48 AM CDT) Pathologist [facility] [place] Retics, absolute 559(H) 20 - 87 K/cumm Comment:Testing performed by : [address] [address] Retics 20.7(H) 0.4 - 2.9 % [facility] SHETTY Comment:Testing performed by : [address] [address] Reticulocyte Hgb 28.5(L) 30.5 - 38.0 pg [facility] SHETTY Comment:Testing performed by : [address] [address] Blood 01/07/2025 10:4 8 AM CDT 01/07/2025 11:07 AM CDT us Rasta Garcia MD LAB BLOOD ORDERABLES Final Res ult Performing Organization Address [facility] [place]/[facility] de Phone Number [facility] [address] [place] [address] * (ABNORMAL) Basic metabolic panel (01/07/2025 10:48 AM CDT) [facility] Sodium 141 135 - 145 mmol/L Comment:Testing performed by : [address] [address] Potassium, pl 3.3 3.3 - 4.9 mmol/L [facility] SHETTY Comment:Testing performed by : [address] [address] Chloride 104 97 - 110 mmol/L [facility] SHETTY Comment:Testing performed by : [address] [address] CO2 25 22 - 32 mmol/L [facility] Comment:Testing performed by : [address] [address] Anion gap 12 2 - 15 mmol/L [facility] Comment:Testing performed by : [address] [address] BUN 2(L) 6 - 25 mg/dL [facility] Comment:Testing performed by : [address] [address] Creatinine 0.50(L) 0.80 - 1.30 mg/dL [facility] Comment:Testing performed by : [address] [address] Glucose 162 70 - 199 mg/dL [facility] [...] was last revised 2022. Testing performed by: [address] [address] Calcium 8.6 8.5 - 10.3 mg/dL [facility] Comment:Testing performed by : [address] [address] Blood 01/07/2025 10:4 8 AM CDT 01/07/2025 11:07 AM CDT us Rasta Garcia MD LAB BLOOD ORDERABLES Final Res ult KENYETTAALEJANDRA [address] [facility] Department of Laboratories [place], [place] [id number] * (ABNORMAL) CBC with auto differential (01/07/2025 10:48 AM CDT) WBC 8.71 3.80 - 9.90 K/cumm Comment:Testing performed by : [address] [address] Hgb 8.0(L) 13.0 - 17.5 g/dL [facility] Comment:Testing performed by : [address] [address] Hct 23.2(L) 38.9 - 50.3 % CERALEJANDRA Comment:Testing performed by : [address] [address] Plt 324 150 - 400 K/cumm CERALEJANDRA Comment:Testing performed by : [address], [address] MPV 10.3 9.1 - 12.3 fL [place] Comment:Testing performed by : [address] [address] RBC 2.58(L) 4.30 - 5.80 M/cumm [facility] Comment:Testing performed by : [address] [address] MCV 89.9 81.3 - 96.4 fL CERALEJANDRA Comment:Testing performed by : [address], [address] MCH 31.0 27.1 - 33.3 pg CERALEJANDRA Comment:Testing performed by : [address] [address] MCHC 34.5 32.3 - 35.7 g/dL CERALEJANDRA Comment:Testing performed by : [address], [address] RDW CV 21.6(H) 11.1 - 14.9 % CERALEJANDRA Comment:Testing performed by : [address] [address] RDW SD 68.9(H) 35.7 - 48.1 fL CERALEJANDRA Comment:Testing performed by : [address] [address] NRBC abs 0.26(H) 0.00 - 0.01 K/cumm [facility] Comment:Testing performed by : [address], [address] Blood 01/07/2025 10:4 8 AM CDT 01/07/2025 11:07 AM CDT us Jaya Talbertm LAB BLOOD ORDERABLES Final Resul t Performing Organization Address [facility] [place]/[facility] Co de Phone Number [facility] [address] [place] [address] * eGFR (01/06/2025 6:52 AM CDT) eGFR [...] was last reviewed 2021. Testing performed by: [facility], [address] [place] [address]., [address] Blood 01/06/2025 6:52 AM CDT 01/06/2025 7:14 AM CDT us Rasta Garcia MD LAB BLOOD ORDERABLES Final Res ult Performing Organization Address City/[facility] [place]/ZIP Co de Phone Number [facility] [address] [place] [employer] [place] [address] * (ABNORMAL) Basic metabolic panel (01/06/2025 6:52 AM CDT) Sodium 139 135 - 145 mmol/L Comment:Testing performed by : [address] [address] Potassium, pl 3.7 3.3 - 4.9 mmol/L [facility] Comment:Testing performed by : [address] [address] Chloride 103 97 - 110 mmol/L [facility] Comment:Testing performed by : [address] [address] CO2 23 22 - 32 mmol/L [facility] Comment:Testing performed by : [address], [place]., [address] Anion gap 13 2 - 15 mmol/L [facility] Comment:Testing performed by : [address] [address] BUN 2(L) 6 - 25 mg/dL [facility] Comment:Testing performed by : [address] [address] Creatinine 0.50(L) 0.80 - 1.30 mg/dL [facility] Comment:Testing performed by : [address] [address] Glucose 95 70 - 199 mg/dL [facility] Comment: Interpretive Data Fasting glucose >/= [...] was last revised 2022. Testing performed by: [address] [address] Calcium 8.6 8.5 - 10.3 mg/dL [facility] Comment:Testing performed by : [address] [address] Blood 01/06/2025 6:52 AM CDT 01/06/2025 7:14 AM CDT us Rasta Garcia MD LAB BLOOD ORDERABLES Final Res ult [facility] [address] [facility] Department [place] [address] * (ABNORMAL) Manual Differential (01/04/2025 7:27 AM CDT) Differential Manual Comment:Testing performed by : [address] [address] Cells Counted 100 [place] Comment:Testing performed by : [address] [address] Neutrophil abs 3.26 1.50 - 6.50 K/cumm [facility] Comment:Testing performed by : [address] [address] Lymphocyte abs 5.88(H) 0.80 - 3.30 K/cumm [facility] Comment:Testing performed by : [address] [address] Monocyte abs 0.63 0.20 - 0.80 K/cumm [facility] Comment:Testing performed by : [address] [address] Eosinophil abs 0.53(H) 0.00 - 0.50 K/cumm [facility] Comment:Testing performed by : [address] [address] Basophil abs 0.21(H) 0.00 - 0.10 K/cumm [facility] Comment:Testing performed by : [address] [address] Neutrophil pct 31.0 % [facility] Comment: Interpretive Data Percent cell count reference ranges are not reported, since discordance with absolute values may lead to misinterpretation of CBC data. Current Interpretive Data was last revised on 2017. Testing performed by: [address] [address] Lymphocyte pct 56.0 % [facility] Comment: Interpretive Data Percent cell count reference ranges are not reported, since discordance with absolute values may lead to misinterpretation of CBC data. Current Interpretive Data was last revised on 2017. Testing performed by: [address] [address] Monocyte pct 6.0 % [facility] Comment: Interpretive Data Percent cell count reference ranges are not reported, since discordance with absolute values may lead to misinterpretation of CBC data. Current Interpretive Data was last revised on 2017. Testing performed by: [address] [address] Eosinophil pct 5.0 % [facility] Comment: Interpretive Data Percent cell count reference ranges are not reported, since discordance with absolute values may lead to misinterpretation of CBC data. Current Interpretive Data was last revised on 2017. Testing performed by: [address] [address] Basophil pct 2.0 % [facility] Comment: Interpretive Data Percent cell count reference ranges are not reported, since discordance with absolute values may lead to misinterpretation of CBC data. Current Interpretive Data was last revised on 2017. Testing performed by: [address], [place]., [address] Vacuolation Present(A) [facility] Comment:Testing performed by : [address] [address] RBC morphology Present(A) [facility] Comment:Testing performed by : [address] [address] Polychromasia 3-7/HPF(A) [facility] Comment:Testing performed by : [address] [address] Anisocytosis Marked(A) [facility] Comment:Testing performed by : [address] [address] Macrocytes 3-7/HPF(A) [facility] Comment:Testing performed by : [address] [address] Schistocytes 1-2/HPF(A) [facility] Comment:Testing performed by : [address] [address] Sickle cells 3-7/HPF(A) [facility] Comment:Testing performed by : [address] [address] Platelet estimate Adequate [facility] SHETTY Comment:Testing performed by : [address] [address] Giant platelets Present(A) [facility] SHETTY Comment:Testing performed by : [address] [address] Blood 01/04/2025 7:27 AM CDT 01/04/2025 7:34 AM CDT us Rasta Garcia MD LAB BLOOD ORDERABLES Final Res ult [facility] [address] [facility] Department [place] [address] * eGFR (01/04/2025 7:27 AM [...] was last reviewed 2021. Testing performed by: [address] [address] Blood 01/04/2025 7:27 AM CDT 01/04/2025 7:34 AM CDT us Rasta Garcia MD LAB BLOOD ORDERABLES Final Res ult Performing Organization Address [facility] [place]/[facility] Co de Phone Number KENYETTA[address] [place] [address] * (ABNORMAL) Reticulocyte Count (01/04/2025 7:27 AM CDT) Retics, absolute 532(H) 20 - 87 K/cumm Comment:Testing performed by : [address] [address] Retics 19.3(H) 0.4 - 2.9 % [facility] Comment:Testing performed by : [address] [address] Reticulocyte Hgb 34.7 30.5 - 38.0 pg [facility] SHETTY Comment:Testing performed by : [address] [address] Blood 01/04/2025 7:27 AM CDT 01/04/2025 7:34 AM CDT us Rasta Garcia MD LAB BLOOD ORDERABLES Final Res ult Performing Organization Address [facility] [place]/[facility] Co de Phone Number [address] [place] [address] * (ABNORMAL) CBC with auto differential (01/04/2025 7:27 AM CDT) Pathologist [facility] [place] WBC 10.50(H) 3.80 - 9.90 K/cumm Comment:Testing performed by : [address] [address] Hgb 8.4(L) 13.0 - 17.5 g/dL [facility] SHETTY Comment:Testing performed by : [address] [address] Hct 25.3(L) 38.9 - 50.3 % [facility] SHETTY Comment:Testing performed by : [address] [address] Plt 299 150 - 400 K/cumm [facility] SHETTY Comment:Testing performed by : [address] [address] MPV 9.8 9.1 - 12.3 fL [facility] Comment:Testing performed by : [address] [address] RBC 2.76(L) 4.30 - 5.80 M/cumm [facility] SHETTY Comment:Testing performed by : [address] [address] MCV 91.7 81.3 - 96.4 fL [facility] Comment:Testing performed by : [address] [address] MCH 30.4 27.1 - 33.3 pg [place] Comment:Testing performed by : [address], [address] MCHC 33.2 32.3 - 35.7 g/dL [facility] Comment:Testing performed by : [address], [address] RDW CV 23.3(H) 11.1 - 14.9 % [facility] Comment:Testing performed by : [address], [address] RDW SD 74.0(H) 35.7 - 48.1 fL [facility] Comment:Testing performed by : [address] [address] NRBC abs 0.21(H) 0.00 - 0.01 K/cumm [facility] Comment:Testing performed by : [address], [address] Blood 01/04/2025 7:27 AM CDT 01/04/2025 7:34 AM CDT us Rasta Garcia MD LAB BLOOD ORDERABLES Final Res ult [facility] [address] [facility] Department of Laboratories [place], [place] [id number] * (ABNORMAL) Basic metabolic panel (01/04/2025 7:27 AM CDT) Sodium 137 135 - 145 mmol/L Comment:Testing performed by : [address] [address] Potassium, pl 3.5 3.3 - 4.9 mmol/L [facility] Comment:Testing performed by : [address] [address] Chloride 100 97 - 110 mmol/L [facility] Comment:Testing performed by : [address], [place]., [address] CO2 25 22 - 32 mmol/L [facility] Comment:Testing performed by : [address], [place]., [address] Anion gap 12 2 - 15 mmol/L [facility] Comment:Testing performed by : [address] [address] BUN 2(L) 6 - 25 mg/dL [facility] Comment:Testing performed by : [address], [place]., [address] Creatinine 0.49(L) 0.80 - 1.30 mg/dL [facility] Comment:Testing performed by : [address] [address] Glucose 106 70 - 199 mg/dL [facility] Comment: Interpretive Data Fasting glucose >/= [...] was last revised 2022. Testing performed by: [address] [address] Calcium 9.1 8.5 - 10.3 mg/dL [facility] Comment:Testing performed by : [address] [address] Blood 01/04/2025 7:27 AM CDT 01/04/2025 7:34 AM CDT us Rasta Garcia MD LAB BLOOD ORDERABLES Final Res ult Performing Organization Address City/[facility] [place]/ZIP Co de Phone Number [facility] [address] [facility] [place] [employer] [place] [address] * (ABNORMAL) Blood smear review (01/03/2025 7:30 AM CDT) RBC morphology Present(A) Comment:Testing performed by : [address] [address] Polychromasia 3-7/HPF(A) [facility] Comment:Testing performed by : [address] [address] Anisocytosis Slight(A) [facility] Comment:Testing performed by : [address] [address] Poikilocytosis Slight(A) [facility] Comment:Testing performed by : [address] [address] Sickle cells 1-2/HPF(A) [facility] Comment:Testing performed by : [address], [place]., [address] Elliptocytes 3-7/HPF(A) [facility] Comment:Testing performed by : [address], [place]., [address] Target cells 3-7/HPF(A) [facility] Comment:Testing performed by : [address] [address] Platelet estimate Adequate [facility] Comment:Testing performed by : [address] [address] Blood 01/03/2025 7:30 AM CDT 01/03/2025 7:44 AM CDT us Rasta Garcia MD LAB BLOOD ORDERABLES Final Res ult Performing Organization Address City/[facility] [place]/ZIP Co de Phone Number [facility] [address] [facility] [place] [address] * eGFR (01/03/2025 7:30 AM CDT) Pathologist [facility] [place] eGFR >90 >=60 mL/min/1. 73 m2 Comment: [...] was last reviewed 2021. Testing performed by: [address] [address] Blood 01/03/2025 7:30 AM CDT 01/03/2025 7:44 AM CDT us Rasta Garcia MD LAB BLOOD ORDERABLES Final Res ult [facility] [address] [facility] Department [place] [address] * (ABNORMAL) Differential, auto (01/03/2025 7:30 AM CDT) Pathologist [facility] [place] Neutrophil abs 5.76 1.50 - 6.50 K/cumm Comment:Testing performed by : [address] [address] Imm gran abs 0.13(H) 0.00 - 0.10 K/cumm [facility] SHETTY Comment:Testing performed by : [address] [address] Lymphocyte abs 3.10 0.80 - 3.30 K/cumm [facility] Comment:Testing performed by : [address] [address] Monocyte abs 0.98(H) 0.20 - 0.80 K/cumm [facility] Comment:Testing performed by : [address] [address] Eosinophil abs 0.21 0.00 - 0.50 K/cumm [facility] Comment:Testing performed by : [address] [address] Basophil abs 0.07 0.00 - 0.10 K/cumm [facility] Comment:Testing performed by : [address] [address] Neutrophil pct 56.2 % [facility] Comment: Interpretive Data Percent cell count reference ranges are not reported, since discordance with absolute values may lead to misinterpretation of CBC data. Current Interpretive Data was last revised on 2017. Testing performed by: [address] [address] Imm gran pct 1.3 % [facility] Comment: Interpretive Data Percent cell count reference ranges are not reported, since discordance with absolute values may lead to misinterpretation of CBC data. Current Interpretive Data was last revised on 2017. Testing performed by: [address] [address] Lymphocyte pct 30.2 % [facility] Comment: Interpretive Data Percent cell count reference ranges are not reported, since discordance with absolute values may lead to misinterpretation of CBC data. Current Interpretive Data was last revised on 2017. Testing performed by: [address] [address] Monocyte pct 9.6 % [facility] Comment: Interpretive Data Percent cell count reference ranges are not reported, since discordance with absolute values may lead to misinterpretation of CBC data. Current Interpretive Data was last revised on 2017. Testing performed by: [address] [address] Eosinophil pct 2.0 % [facility] Comment: Interpretive Data Percent cell count reference ranges are not reported, since discordance with absolute values may lead to misinterpretation of CBC data. Current Interpretive Data was last revised on 2017. Testing performed by: [address] [address] Basophil pct 0.7 % [facility] SHETTY Comment: Interpretive Data Percent cell count reference ranges are not reported, since discordance with absolute values may lead to misinterpretation of CBC data. Current Interpretive Data was last revised on 2017. Testing performed by: [address] [address] Blood 01/03/2025 7:30 AM CDT 01/03/2025 7:44 AM CDT us Rasta Garcia MD LAB BLOOD ORDERABLES Final Res ult Performing Organization Address [facility] [place] de Phone Number [facility] [address] [place] [address] * (ABNORMAL) Reticulocyte Count (01/03/2025 7:30 AM CDT) Pathologist [facility] [place] Retics, absolute 471(H) 20 - 87 K/cumm Comment:Testing performed by : [address] [address] Retics 18.5(H) 0.4 - 2.9 % [facility] SHETTY Comment:Testing performed by : [address] [address] Reticulocyte Hgb 31.1 30.5 - 38.0 pg [facility] SHETTY Comment:Testing performed by : [address] [address] Blood 01/03/2025 7:30 AM CDT 01/03/2025 7:44 AM CDT us Rasta Garcia MD LAB BLOOD ORDERABLES Final Res ult Performing Organization Address [facility] de Phone Number [facility] [place] [address] * (ABNORMAL) CBC with auto differential (01/03/2025 7:30 AM CDT) WBC 10.25(H) 3.80 - 9.90 K/cumm Comment:Testing performed by : [address] [address] Hgb 7.7(L) 13.0 - 17.5 g/dL [facility] Comment:Testing performed by : [address] [address] Hct 22.5(L) 38.9 - 50.3 % CERALEJANDRA Comment:Testing performed by : [address] [address] [address] Plt 350 150 - 400 K/cumm CERALEJANDRA Comment:Testing performed by : [address] [address] MPV 10.1 9.1 - 12.3 fL CERALEJANDRA Comment:Testing performed by : [address] [address] RBC 2.55(L) 4.30 - 5.80 M/cumm CERALEJANDRA Comment:Testing performed by : [address] [address] MCV 88.2 81.3 - 96.4 fL CERALEJANDRA Comment:Testing performed by : [address] [address] MCH 30.2 27.1 - 33.3 pg CERALEJANDRA Comment:Testing performed by : [address] [address] MCHC 34.2 32.3 - 35.7 g/dL CERALEJANDRA Comment:Testing performed by : [address] [address] RDW CV 22.1(H) 11.1 - 14.9 % CERALEJANDRA Comment:Testing performed by : [address] [address] RDW SD 67.4(H) 35.7 - 48.1 fL CERALEJANDRA Comment:Testing performed by : [address] [address] NRBC abs 0.35(H) 0.00 - 0.01 K/cumm [facility] Comment:Testing performed by : [address] [address] Blood 01/03/2025 7:30 AM CDT 01/03/2025 7:44 AM CDT us Rasta Garcia MD LAB BLOOD ORDERABLES Final Res ult [facility] [address] [facility] Department [place] [address] * (ABNORMAL) Basic metabolic panel (01/03/2025 7:30 AM CDT) Sodium 138 135 - 145 mmol/L Comment:Testing performed by : [address] [address] Potassium, pl 3.5 3.3 - 4.9 mmol/L [facility] Comment:Testing performed by : [address] [address] Chloride 101 97 - 110 mmol/L [facility] Comment:Testing performed by : [address] [address] CO2 26 22 - 32 mmol/L [place] Comment:Testing performed by : [address] [address] Anion gap 11 2 - 15 mmol/L [facility] Comment:Testing performed by : [address] [address] BUN <2(L) 6 - 25 mg/dL [facility] Comment:Testing performed by : [address] [address] Creatinine 0.50(L) 0.80 - 1.30 mg/dL [facility] Comment:Testing performed by : [address] [address] Glucose 106 70 - 199 mg/dL [facility] [...] was last revised 2022. Testing performed by: [facility], [address] [place] [address]., [address] Calcium 8.8 8.5 - 10.3 mg/dL [facility] Comment:Testing performed by : [address] [address] Blood 01/03/2025 7:30 AM CDT 01/03/2025 7:44 AM CDT us Rasta Garcia MD LAB BLOOD ORDERABLES Final Res ult Performing Organization Address [facility] Co de Phone Number [facility] [address] [facility] [place] [address] * Troponin T high-sensitivity 4-hour (01/01/2025 4:09 AM CDT) Pathologist [facility] [place] Trop T hs <6 <=22 ng/L Comment: Interpretive Data For further hscTnT resources including the diagnostic algorithm and an aid in interpretation, copy and paste this link: https://nrl.testcatalog.org/show/hsTrop Current Interpretive Data last revised 2020. Testing performed by: [address] [address] Trop T hs delta -2 ng/L [place] Comment:Testing performed by : [address] [address] Trop T hs interp Insignificant [facility] Comment:Testing performed by : [address] [address] Blood 01/01/2025 4:09 AM CDT 01/01/2025 4:16 AM CDT us Bill Carrasquillo DO LAB BLOOD ORDERABLES Final Res ult Performing Organization Address City/[facility]/ZIP Co de Phone Number [facility] [address] [facility] [address] [place] [address] * XR Chest 1 Vw Portable (01/01/2025 [...] Andrew Stubbs M.D. AR: TOREY Report ID: [id number] Reading Location: [id number] Procedure Note Andrew Stubbs MD - 01/01/2025 [...] Andrew Stubbs M.D. AR: AR Report ID: [id number] Reading Location: [id number] us Bill Carrasquillo DO IMG XR PROCEDURES [...] was last reviewed 2021. Testing performed by: [address] [address] Blood 12/31/2024 11:5 7 PM CDT 01/01/2025 12:09 AM CDT Bill Carrasquillo DO LAB BLOOD ORDERABLES Final Res ult [facility] [address] [facility] Department [place] [address] * (ABNORMAL) Differential, auto (12/31/2024 11:57 PM CDT) Neutrophil abs 6.19 1.50 - 6.50 K/cumm Comment:Testing performed by : [address] [address] Imm gran abs 0.07 0.00 - 0.10 K/cumm [facility] Comment:Testing performed by : [address], [place]., [address] Lymphocyte abs 4.31(H) 0.80 - 3.30 K/cumm [place] Comment:Testing performed by : [address], [place]., [address] Monocyte abs 1.49(H) 0.20 - 0.80 K/cumm LAMNOT Comment:Testing performed by : [address], [place]., [address] Eosinophil abs 0.14 0.00 - 0.50 K/cumm [facility] Comment:Testing performed by : [address], [place]., [address] Basophil abs 0.08 0.00 - 0.10 K/cumm [facility] Comment:Testing performed by : [address] [address] Neutrophil pct 50.4 % [facility] Comment: Interpretive Data Percent cell count reference ranges are not reported, since discordance with absolute values may lead to misinterpretation of CBC data. Current Interpretive Data was last revised on 2017. Testing performed by: [address] [address] Imm gran pct 0.6 % [facility] Comment: Interpretive Data Percent cell count reference ranges are not reported, since discordance with absolute values may lead to misinterpretation of CBC data. Current Interpretive Data was last revised on 2017. Testing performed by: [address] [address] Lymphocyte pct 35.1 % [facility] Comment: Interpretive Data Percent cell count reference ranges are not reported, since discordance with absolute values may lead to misinterpretation of CBC data. Current Interpretive Data was last revised on 2017. Testing performed by: [address] [address] Monocyte pct 12.1 % [facility] Comment: Interpretive Data Percent cell count reference ranges are not reported, since discordance with absolute values may lead to misinterpretation of CBC data. Current Interpretive Data was last revised on 2017. Testing performed by: [address] [address] Eosinophil pct 1.1 % [facility] Comment: Interpretive Data Percent cell count reference ranges are not reported, since discordance with absolute values may lead to misinterpretation of CBC data. Current Interpretive Data was last revised on 2017. Testing performed by: [address] [address] Basophil pct 0.7 % [facility] Comment: Interpretive Data Percent cell count reference ranges are not reported, since discordance with absolute values may lead to misinterpretation of CBC data. Current Interpretive Data was last revised on 2017. Testing performed by: [address] [address] Blood 12/31/2024 11:5 7 PM CDT 01/01/2025 12:09 AM CDT [email or web address] LAB BLOOD ORDERABLES Final Res ult Performing Organization Address [facility] Co de Phone Number [address] [place] [address] * Troponin T high-sensitivity series (baseline, 2hr, 4hr, 6hr) (12/31/2024 11:57 PM CDT) Trop T hs 8 <=22 ng/L Comment: Interpretive Data For further hscTnT resources including the diagnostic algorithm and an aid in interpretation, copy and paste this link: https://nrl.testcatalog.org/show/hsTrop Current Interpretive Data last revised 2020. Testing performed by: [address] [address] Blood 12/31/2024 11:5 7 PM CDT 01/01/2025 12:09 AM CDT [email or web address] LAB BLOOD ORDERABLES Final Res ult Performing Organization Address City/[facility]/ZIP Co de Phone Number [address] [place] [address] * (ABNORMAL) Reticulocyte Count (12/31/2024 11:57 PM CDT) [facility] Retics, absolute 410(H) 20 - 87 K/cumm Comment:Testing performed by : [address] [address] Retics 15.5(H) 0.4 - 2.9 % [facility] Comment:Testing performed by : [address] [address] Reticulocyte Hgb 30.8 30.5 - 38.0 pg [place] Comment:Testing performed by : [address] [address] Blood 12/31/2024 11:5 7 PM CDT 01/01/2025 12:09 AM CDT us Bill Carrasquillo DO LAB BLOOD ORDERABLES Final Res ult [facility] [facility] Department [place] [address] * (ABNORMAL) Comprehensive metabolic panel (12/31/2024 11:57 PM CDT) [facility] Sodium 137 135 - 145 mmol/L Comment:Testing performed by : [address] [address] Potassium, pl 3.2(L) 3.3 - 4.9 mmol/L [place] Comment:Testing performed by : [address] [address] Chloride 103 97 - 110 mmol/L [place] Comment:Testing performed by : [address] [address] CO2 23 22 - 32 mmol/L [place] Comment:Testing performed by : [address] [address] Anion gap 11 2 - 15 mmol/L [place] Comment:Testing performed by : [address] [address] BUN 4(L) 6 - 25 mg/dL [place] SHETTY Comment:Testing performed by : [address] [address] Creatinine 0.60(L) 0.80 - 1.30 mg/dL [place] Comment:Testing performed by : [address] [address] Glucose 115 70 - 199 mg/dL [place] [...] was last revised 2022. Testing performed by: [address] [address] Calcium 9.1 8.5 - 10.3 mg/dL [facility] Comment:Testing performed by : [address] [address] Bilirubin, total 5.6(H) 0.1 - 1.2 mg/dL [facility] Comment:Testing performed by : [address] [address] Protein, pl 7.9 6.5 - 8.5 g/dL [facility] Comment:Testing performed by : [address] [address] Albumin 4.1 3.5 - 5.0 g/dL [facility] Comment:Testing performed by : [address] [address] Alk phos 353(H) 40 - 130 Units/L [facility] Comment:Testing performed by : [address] [address] ALT 27 7 - 55 Units/L [facility] Comment:Testing performed by : [address] [address] AST 53(H) 10 - 50 Units/L [facility] Comment:Testing performed by : [address] [address] Blood 12/31/2024 11:5 7 PM CDT 01/01/2025 12:09 AM CDT us Bill Carrasquillo DO LAB BLOOD ORDERABLES Final Res ult [facility] [address] [facility] Department [place] [address] * (ABNORMAL) CBC with auto differential (12/31/2024 11:57 PM CDT) WBC 12.28(H) 3.80 - 9.90 K/cumm Comment:Testing performed by : [address] [address] Hgb 7.8(L) 13.0 - 17.5 g/dL [place] Comment:Testing performed by : [address] [address] Hct 23.2(L) 38.9 - 50.3 % [facility] Comment:Testing performed by : [address] [address] Plt 277 150 - 400 K/cumm [place] Comment:Testing performed by : [address] [address] MPV 10.0 9.1 - 12.3 fL [place] Comment:Testing performed by : [address] [address] RBC 2.65(L) 4.30 - 5.80 M/cumm [place] Comment:Testing performed by : [address] [address] MCV 87.5 81.3 - 96.4 fL [place] Comment:Testing performed by : [address] [address] MCH 29.4 27.1 - 33.3 pg [place] SHETTY Comment:Testing performed by : [address] [address] MCHC 33.6 32.3 - 35.7 g/dL [place] SHETTY Comment:Testing performed by : [facility], [address] [place] [address]., [address] RDW CV 20.6(H) 11.1 - 14.9 % [place] Comment:Testing performed by : [address] [address] RDW SD 64.0(H) 35.7 - 48.1 fL [place] Comment:Testing performed by : [address] [address] NRBC abs 0.06(H) 0.00 - 0.01 K/cumm [place] Comment:Testing performed by : [address] [address] Morphologic Screen Results confirmed by manual morphology review. [place] Comment:Testing performed by : [address] [address] Blood 12/31/2024 11:5 7 PM CDT 01/01/2025 12:09 AM CDT us Bill Carrasquillo DO LAB BLOOD ORDERABLES Final Res ult [facility] [address] [facility] Department [place] [address] * ECG 12 lead (12/31/2024 11:51 PM CDT) Ventricular Rate EKG/Min 107 BPM [facility] Atrial Rate 107 BPM [facility] CA-Interval (MSEC) 178 ms [facility] QRS-Interval (MSEC) 80 ms [facility] QT-Interval (MSEC) 344 ms [facility] QTc 459 ms [facility] P [place] 51 degrees [facility] R [place] 4 degrees [facility] T [place] 15 degrees [facility] Diagnosis Sinus tachycardia Otherwise normal ECG When compared with ECG of 22-DEC-2024 13:08, Nonspecific T wave abnormality no longer evident in Lateral leads Confirmed by Rodrigue Fonseca M.D. ([id number]) on 01/03/2025 8:51:05 AM [facility] 12/31/2024 11:5 1 PM CDT 01/03/2025 8:51 AM CDT Bill Jose Rafaeltrevin ECG ORDERABLES Final Result [facility] documented in this encounter Visit Diagnoses Diagnosis [...] Every 12 hours scheduled, First dose on [facility] 01/02/25 at 2100, To saline lock: Flush [...] Every 12 hours scheduled, First dose on [facility] 01/13/25 at 1015, To saline lock: [...] Every 12 hours scheduled, First dose on [facility] 01/13/25 at 1015, To saline lock: [...] Provider: Sheree Rizo, BOUCHRA)2224 (Given - Provider: Kelsei Goodson RN) 0436 (Given - Provider: Kelsie [...] Kelsie Goodson RN) 0949 (Given - Provider: hSeree Rizo RN)2100 (Given - Provider: Kelsie Goodson [...] 01/18/2025 documented in this encounter Care Teams Internal Review And Audit Compliance Relationship Specialty Start Date End Date Laurent Gonzalez MD [address] [place] [address] PCP - General Hematology and Oncology 10/18/23 Ray Sainz MD [address] [facility] [address] [place] [address] 02/10/20 [place] [address] [facility] [address] [place] [address] Consulting Physician Family Medicine 05/05/22 Miscellaneous, Not In File 12/14/22 [place] [address] [facility] [address] [place] [address] Consulting Physician Orthopedic Surgery 08/18/24 documented as of this encounter
--- OUTSIDE RECORDS SUMMARY | 2025-01-18 22:54 | XMS_ITS | Encounter Summary ---
Author Organization [facility] Healthcare Address [address] [place] [address] Care Team Providers Care Operation Manager Name Role Phone Ray Sainz MD Unavailable [phone] Gordo Herrera MD Unavailable [phone] Miscellaneous, Not In File Unavailable Unava ilable Laurent Gonzalez MD Primary Care Provider [phone] Tobin Terrell MD Unavailable [phone] Reason for Visit * Reason Comments Sickle Cell Pain Crisis Encounter Details Date Type Department Care Team (Late st Contact Info) Description 01/18/2025 10:54 PM CDT - 01/19/2025 12:13 AM T Emergency [facility] Emergency Department [address] [place] [id number] Abena Diego MD [facility] [place] [address] Malingering (Primary Dx); H/O sickle cell disease Discharge Disposition: Discharge to home or self [...] 12/08/2024 How often do you attend chur ch or advent services? Never 12/08/2024 Do you belong to any clubs o r organizations such as confucianist groups, unions, fraternal or athletic groups, or [...] place to sleep or slept in a snf (including now)? No 09/01/2023 PHQ-9 Answer Date [...] time in the past [address] [facility], were you homeless or living in a snf (including now)? No 12/08/2024 Social Connection and Isolation Panel Answer Date Recorded In a typical week, how many times do you talk on the phone with family, friends, or neighbors? More than three times a week 01/03/2025 How often do you get togethe r with friends or relatives? Twice a week 01/03/2025 How often do you attend chur ch or advent services? Never 01/03/2025 Do you belong to any clubs o r organizations such as confucianist groups, unions, fraternal or athletic groups, or [...] time in the past [address] [facility], were you homeless or living in a snf (including now)? No 01/03/2025 [facility] Utilities Answer Date Recorded In the past 12 months has th [employer], gas, oil, or water company threatened to [...] on file Legal Sex Male 10:50 AM [employer] Gender Identity Male 12/06/2024 9:44 PM CDT Sexual Orientation Straight 12/06/2024 9: 44 PM CDT documented as of this encounter Last Filed Vital Signs Vital Sign Reading Time Taken Comments Blood Pressure 136/80 01/18/2025 11:50 PM CDT Pulse 85 01/18/2025 11:50 PM CDT Temperature 36.7 C (98 F) 01/18/2025 8:58 PM CDT Respiratory Rate 19 01/18/2025 11:5 0 PM CDT Oxygen Saturation 100% 01/18/2025 11: 50 PM CDT Inhaled Oxygen Concentration - - Weight 107.3 kg (236 lb 8.9 oz) 01/18/2025 8:58 PM CDT Height - - Body Mass Index 33.94 01/01/2025 4:18 AM CDT documented in this encounter Medications at Time of Discharge albuterol HFA (PROVENTIL HFA,VENTOLIN HFA,PROAIR HFA) 90 mcg/actuation inhalerIndications: Bronchospasm Prevention Inhale 2 puffs every 6 (six) hours as needed for wheezing or shortness of breath 1 each 1 diphenhydrAMINE (BENADRYL) 25 mg capsule Take 1 [...] days 20 tablet 5 01/29/20 25 oxyCODONE (ROXICODONE) 15 mg immediate release tabletIndications:P ain Take 1 tablet (15 mg total) by mouth every 4 (four) hours for 10 days 60 tablet 4 oxyCODONE (ROXICODONE) 20 mg tabletIndications:P ain Take 1 tablet (20 mg total) by mouth 4 (four) times a day as needed for pain for up to 5 days 12 tablet 4 oxyCODONE (ROXICODONE) 20 mg tablet Take 1 tablet (20 mg total) by mouth every 4 (four) hours for 4 days 24 tablet 4 oxyCODONE (ROXICODONE) 5 mg immediate release tabletIndications:P ain Take 2 tablets (10 mg total) by mouth every 4 (four) hours as needed for pain for up to 1 day 12 tablet 4 oxyCODONE ER (OxyCONTIN) 10 mg 12 hr [...] constipation 5 documented as of this encounter Discharge Disposition Disposition Code Departure Means Destination Comment s Discharge to home or self care documented in this encounter ED Notes * Abena Diego MD - 01/18/2025 11:48 PM CDT HPI Chief Complaint Patient presents with Sickle Cell Pain Crisis HPI 6:19 AM Artur Villalpando is a 29 y.o. male presenting to the ED c/o sickle cell crisis and needing pain medications. He was just seen at the hospital across the street and discharged from there earlier today. He states his pain needs to be controlled but he is visually generally comfortable. Denies any other complaints such as fevers chills. States the only thing that helps his pain is Dilaudid and Benadryl. Has hydrocodone that he states does not help his pain. Upon further review of the chart the patient has been admitted discharged and readmitted at multiple hospitals across [place] in [facility] for the past 2 years. Patient History: Past Medical History: Diagnosis Date [...] not drink Frequency of Binge Drinking: Never No current facility-administered medications for this encounter. Current Outpatient Medications: albuterol HFA (PROVENTIL HFA,VENTOLIN HFA,PROAIR HFA) 90 mcg/actuation inhaler diphenhydrAMINE (BENADRYL) 25 mg capsule folic acid (FOLVITE) 1 mg tablet hydrocortisone (CORTEF) 10 mg tablet hydrocortisone (CORTEF) 5 mg tablet naloxone (NARCAN) 4 mg/actuation spray,non-aerosol ondansetron ODT (ZOFRAN-ODT) 4 mg disintegrating tablet oxyCODONE (ROXICODONE) 15 mg immediate release tablet oxyCODONE (ROXICODONE) 20 mg tablet oxyCODONE (ROXICODONE) 20 mg tablet oxyCODONE (ROXICODONE) 5 mg immediate release tablet oxyCODONE ER (OxyCONTIN) 10 mg 12 hr abuse-deterrent tablet oxyCODONE-acetaminophen (PERCOCET) 10-325 mg per tablet polyethylene glycol (MIRALAX) 17 gram packet Review of Systems Review of Systems All systems reviewed and are neg or non contributory for this patients presentation today other than as stated in the HPI . Physical Exam ED Triage Vitals [01/18/252057] Temp Pulse Resp BP SpO2 36.7 ??C (98 ??F) 100 18 119/76 96 % Temp src Heart Rate Source Patient Position BP Location FiO2 (%) Tympanic -- -- -- -- Height Height Method Weight Weight Method -- -- 107.3 kg (236 lb 8.9 oz) Standing scale Physical Exam Vitals and nursing note reviewed. Constitutional: General: He is not in acute distress. Appearance: Normal appearance. He is not ill-appearing. HENT: Head: Normocephalic and atraumatic. Nose: Nose normal. Eyes: Conjunctiva/sclera: Conjunctivae normal. Cardiovascular: Rate and Rhythm: Normal rate and regular rhythm. Pulmonary: Effort: Pulmonary effort is normal. Musculoskeletal: General: Normal range of motion. Skin: General: Skin is warm and dry. Neurological: General: No focal deficit present. Mental Status: He is alert and oriented to person, place, and time. Psychiatric: Mood and Affect: Mood normal. Behavior: Behavior normal. Procedures [facility] Labs Reviewed - No data to display No orders to display BP 136/80 Pulse 85 Temp 36.7 ??C (98 ??F) (Tympanic) Resp 19 Wt 107.3 kg (236 lb 8.9 oz) SpO2 100% BMI 33.94 kg/m?? [facility] ED Course as of 01/19/25618 Time: 01/18 9813 Comment: I did review labs from outside hospital hemoglobin 8.3 at baseline. Will discuss patient's constant admission to hospitalist across different hospitals with him. By: Abena Diego MD This examination was transcribed using the [employer] voice recognition system without human pet feeder. In an effort to expedite patient care, this report has not been adjusted for typographical, grammatical, and syntax by a trained lpn or medical assistant. Clinical Impression: Malingering H/O sickle cell disease Abena Diego MD 01/19/25618 * Alina Joseph RN - 01/18/2025 8:56 PM CDT Pt states has been in a sickle cell crisis for a couple weeks, pt was just discharged from [facility], pt denies being seen at [facility] states I just sat in their waiting room, pt c/o generalized pain documented in this encounter Plan of Treatment Not on file documented as of this encounter Visit Diagnoses Diagnosis Malingering- Primary Person feigning illness H/O sickle cell disease documented in this encounter Care Teams Operation Manager Relationship Specialty Start Date End Date Laurent Gonzalez MD [address] [place] [address] PCP - General Hematology and Oncology 10/18/23 Ray Sainz MD [address] [facility] [address] [place] [address] 02/10/20 [place] [address] [address] [facility] [address] [place] [address] Consulting Physician Family Medicine 05/05/22 Miscellaneous, Not In File 12/14/22 [place] [address] [address] [facility] [address] [place] [address] Consulting Physician Orthopedic Surgery 08/18/24 documented as of this encounter
--- OUTSIDE RECORDS SUMMARY | 2025-01-18 22:54 | XMS_ITS | Encounter Summary ---
Author Organization [facility] Address [address] [place] [address] Care Team Providers Care Hotel Engineer Name Role Phone Ray Sainz MD Unavailable [phone] Gordo Herrera MD Unavailable [phone] Miscellaneous, Not In File Unavailable Unava ilable Laurent Gonzalez MD Primary Care Provider [phone] Tobin Terrell MD Unavailable [phone] Reason for Visit * Reason Comments Sickle Cell Pain Crisis Encounter Details Date Type Department Care Team (Late st Contact Info) Description 01/18/2025 10:54 PM CDT - 01/19/2025 12:13 AM T Emergency [facility] Emergency Department [address] [place] [id number] Abena Diego MD [facility] [facility] [place] [address] Malingering (Primary Dx); H/O sickle cell disease [...] often do you attend chur ch or restoration services? Never 12/08/2024 Do you belong to any clubs o r organizations such as taoism groups, unions, fraternal or athletic groups, or [...] place to sleep or slept in a retirement (including now)? No 09/01/2023 PHQ-9 Answer Date [...] any time in the past 12 m [facility], were you homeless or living in a retirement (including now)? No 12/08/2024 Social Connection and Isolation Panel Answer Date Recorded In a typical week, how many times do you talk on the phone with family, friends, or neighbors? More than three times a week 01/03/2025 How often do you get togethe r with friends or relatives? Twice a week 01/03/2025 How often do you attend chur ch or restoration services? Never 01/03/2025 Do you belong to any clubs o r organizations such as taoism groups, unions, fraternal or athletic groups, or [...] any time in the past 12 m [facility], were you homeless or living in a retirement (including now)? 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 Patient History: [...] Affect: Mood normal. Behavior: Behavior normal. Procedures [facility] Labs Reviewed - No data to display No orders to display BP 136/80 Pulse 85 Temp 36.7 ??C (98 ??F) (Tympanic) Resp 19 Wt 107.3 kg (236 lb 8.9 oz) SpO2 100% BMI 33.94 kg/m?? [facility] ED Course as of 01/19/25618 Time: 01/18 6195 Comment: I did review labs from outside hospital hemoglobin 8.3 at baseline. Will discuss patient's constant admission to hospitalist across different hospitals with him. By: Abena Diego MD This examination was transcribed using the Shweeb voice recognition system without human electric meter repairer helper. In an effort to expedite patient care, this report has not been adjusted for typographical, grammatical, and syntax by a trained medical office technologist. Clinical Impression: Malingering H/O sickle cell disease Abena Diego MD 01/19/25618 * Alina Joseph RN - 01/18/2025 8:56 PM CDT Pt states has been in a sickle cell crisis for a couple weeks, pt was just discharged from [facility], pt denies being seen at [facility] states I just sat in their waiting room, pt c/o generalized pain documented in this encounter Plan of Treatment Not on file documented as of this encounter Visit Diagnoses Diagnosis Malingering- Primary Person feigning illness H/O sickle cell disease documented in this encounter Care Teams Hotel Engineer Relationship Specialty Start Date End Date Laurent Gonzalez MD [address] [place] [address] PCP - General Hematology and Oncology 10/18/23 Ray Sainz MD [address] [facility] [address] [place] [address] 02/10/20 [place] [id number] [facility] [address] [place] [address] Consulting Physician Family Medicine 05/05/22 Miscellaneous, Not In File 12/14/22 [place] [id number] [facility] [address] [place] [address] Consulting Physician Orthopedic Surgery 08/18/24 documented as of this encounter
[2025-01-19] VITALS (12 sets, daily range): BP systolic 106–134; BP diastolic 57–84; PULSE 77–119; RESP 13–21; TEMP 36.3–37.6; O2SAT 94–99
--- NOTE | ~2025-01-19 | XR_ITS ---
EXAMINATION: XR chest 1V portable 01/19/2025 06:04 INDICATION: Sickle cell crisis PROCEDURE: AP portable chest COMPARISON: No prior studies for comparison. FINDINGS: The lungs are clear. The cardiomediastinal silhouette is within normal limits. There are no pleural effusions. There is no pneumothorax suspected. IMPRESSION: 1: NO ACUTE CARDIOPULMONARY DISEASE. Reviewed, dictated and finalized at location O.
--- NOTE | ~2025-01-19 | XR_ITS ---
EXAMINATION: XR chest 1V portable 01/20/2025 17:34 INDICATION: Chest pain TECHNIQUE:A single portable AP upright frontal image of the chest was obtained. COMPARISON: 01/19/2025 FINDINGS: Cardiomediastinal silhouette is enlarged, unchanged. No pneumothorax. No pleural effusion. No free air in the diaphragm. Small interstitial and airspace opacities in both lungs. IMPRESSION: 1: Small interstitial and airspace opacities in both lungs. Differential includes but is not limited to edema or pneumonia. Reviewed, dictated and finalized at location Q. IMPRESSION: 1: Small interstitial and airspace opacities in both lungs. Differential includ es but is not limited to edema or pneumonia.
--- NOTE | ~2025-01-19 | XR_ITS ---
EXAMINATION: XR chest 1V portable DATE: 01/27/2025 09:37 INDICATION: Chest pain TECHNIQUE: frontal view of the chest was obtained. COMPARISON: Chest radiograph dated 01/22/2025 FINDINGS: The lungs are clear with no focal airspace opacities, pulmonary edema, pleural effusion or pneumothorax. Mild cardiomegaly. Cholecystectomy clips in right upper quadrant. Sclerosis of the right humeral head suggestive of osteonecrosis. IMPRESSION: 1. No acute cardiopulmonary disease. 2. Constellation of findings suggestive of chronic sickle cell disease including cardiomegaly, prior cholecystectomy and osteonecrosis at the right humeral head. Reviewed, dictated and finalized at location A. IMPRESSION: 1. No acute cardiopulmonary disease. 2. Constellation of findings suggestive of chronic sickle cell disease includin g cardiomegaly, prior cholecystectomy and osteonecrosis at the right humeral he ad.
--- NOTE | ~2025-01-19 | CT_ITS ---
EXAMINATION: CTA chest PE protocol DATE: 01/19/2025 17:56 INDICATION: Tachycardia and elevated d-dimer. Sickle cell disease. TECHNIQUE: Computed tomography (CT) pulmonary angiogram of the chest was performed with 100 mL Omnipaque-350 intravenous contrast. Additional 3D reconstructions utilizing coronal maximum intensity projection (MIP) were performed. Automated exposure control and iterative reconstruction technique were employed. The dose-length product was 871.95 mGy-cm. COMPARISON: None FINDINGS: There is adequate but suboptimal contrast desiccation of the pulmonary arteries. In addition there is mild respiratory motion artifact most prominent at the lung bases where it decreases sensitivity in the smaller subsegmental pulmonary arteries. No pulmonary embolism. Mild discoid atelectasis in the left lower lobe and dependent atelectasis in the right lower lobe. No pulmonary edema, pleural effusion or pneumothorax. Mild cardiomegaly. No pericardial effusion. Thoracic aorta is normal in caliber with no dissection. No pathologically enlarged thoracic lymphadenopathy. Regions but a serpiginous sclerosis at the bilateral humeral heads consistent with bone infarcts. There is additional diffuse scler osis of the bones with multiple 8 shaped vertebral bodies consistent with sequela of chronic sickle cell disease. Very small calcified spleen consistent with sequela of chronic infarct also likely secondary to sickle cell disease. Cholecystectomy clips the gallbladder fossa. IMPRESSION: 1. No pulmonary embolism or other acute cardiopulmonary disease. Sensitivity decreased by the small basilar subsegmental pulmonary arteries due primarily to some respiratory motion. 2. Bone infarcts at the bilateral humeral heads and diffuse sclerosis of the bones with multiple vertebral bodies and small calcified likely chronically infarcted spleen, all consistent with sequela of chronic sickle cell disease. 3. Cardiomegaly. Reviewed, dictated and finalized at location A. IMPRESSION: 1. No pulmonary embolism or other acute cardiopulmonary disease. Sensitivity de creased by the small basilar subsegmental pulmonary arteries due primarily to s ome respiratory motion. 2. Bone infarcts at the bilateral humeral heads and diffuse sclerosis of the hong s[place] with multiple vertebral bodies and small calcified likely chronically infar cted spleen, all consistent with sequela of chronic sickle cell disease. 3. Cardiomegaly.
--- NOTE | ~2025-01-19 | XR_ITS ---
EXAMINATION: XR chest 2V, 01/22/2025 14:56 CDT HISTORY: Chest pain COMPARISON: No comparisons available. Technique: 2 views obtained. Findings: The lungs are clear, no effusion. No pneumothorax. Heart is normal size. Mediastinal and hilar contours are within normal limits. Bony thorax no acute abnormality. Impression: No acute cardiopulmonary abnormality. Reviewed, dictated and finalized at location A. Impression: No acute cardiopulmonary abnormality.
--- NOTE | ~2025-01-19 | US_ITS ---
EXAMINATION: US venous doppler [facility], 01/22/2025 14:52 CDT HISTORY: +DDimer COMPARISON: None Technique: Silveira-scale and color Doppler images were attempted of the lower saphenofemoral junction, common femoral vein,superficial femoral vein, proximal deep femoral vein, proximal deep femoral vein, popliteal vein and posterior tibial veins. Findings: Deep Venous System:Normal flow, augmentation and compressibility. No echogenic thrombus identified. Superficial Venous SystemNo superficial thrombophlebitis. Soft tissues: Soft tissues are unremarkable. Impression: Negative for DVT. Reviewed, dictated and finalized at location A. Impression: Negative for DVT.
--- NOTE | 2025-01-19 05:39 | ECG_ITS ---
Test Date: 2025-01-19 05:55:19 Measurements Intervals [place] Rate: 105 P: 48 WY: 172 QRS: 19 QRSD: 86 T: 15 QT: 344 QTc: 456 Interpretive Statements SINUS TACHYCARDIA DELAYED PRECORDIAL R/S TRANSITION MODERATE T-WAVE ABNORMALITY, CONSIDER ANTERIOR ISCHEMIA BASELINE ARTIFACT- I, II, AVR, AVL, AVF ABNORMAL ECG No previous ECG available for comparison Electronically Signed On 01-19-2025 06:44:06 CDT by Milton Presley D.O.
--- NOTE | 2025-01-19 06:01 | ED_ITS ---
HPI - General Adult General Chief complaint: Unspecified <Lavelle Aguilar MD - Last Filed: 01/19/25 07:06> Stated complaint: sickle cell crisis <Lavelle Aguilar MD - Last Filed: 01/19/25 07:06> Time Seen by Provider: 01/19/25 05:37 <Lavelle Aguilar MD - Last Filed: 01/19/25 07:06> History of Present Illness HPI narrative: Patient is 21-year-old male who presents emergency department this evening complaining of a sickle cell pain crisis. Patient states that he was seen at [facility] yesterday and was treated with 1 L IV fluid bolus and 2 mg at lot of which initially helped but then pain returned. Patient states that he decided to come here instead because they do not admit patients at [facility] and he was told that the only transfer people who are critical. He states that his pain is in his chest, lower extremity, feet and back. <Lavelle Aguilar MD - Last Filed: 01/19/25 07:06> Related Data Allergies/adverse reactions: Allergies Allergy/AdvReac Type Severity Reaction Status Date / Time fentanyl Allergy Intermediate Unknown Verified 01/19/25 05:47 ketamine Allergy Intermediate Unknown Verified 01/19/25 05:47 morphine Allergy Intermediate Unknown Verified 01/19/25 05:47 <Lavelle Aguilar MD - Last Filed: 01/19/25 07:06> Review of Systems 2 Review of Systems: All systems are reviewed and are negative unless stated otherwise in the HPI. <Lavelle Aguilar MD - Last Filed: 01/19/25 07:06> Exam 2 Narrative: General: Alert, awake, afebrile, in no acute distress. HEENT: PERRL, no rhinorrhea, no post nasal drip, oropharynx clear. Neck: Trachea midline, no JVD, no lymphadenopathy. Cardiovascular: Tachycardic with regular rhythm, no murmurs, rubs or gallops, no peripheral edema. Respiratory: Clear to auscultation bilaterally, no tachypnea, no wheezing, no rhonchi, no rubs, no respiratory distress. Abdomen: Soft, nontender, nondistended, no rebound, no guarding, no peritoneal signs. Musculoskeletal: No joint swelling or deformity, normal muscle tone. Skin: No rashes or petechia, no signs of infection. Psychiatric: Alert and oriented, normal behavior and judgment for situation. Neurological: Alert and oriented to person, place, and time. Follows all commands. No focal deficits, speech is clear and fluent. <Lavelle Aguilar MD - Last Filed: 01/19/25 07:06> Course Vital Signs Vital signs: Vital Signs Temperature 98.4 F 01/19/25 05:39 Pulse Rate 114 H 01/19/25 05:39 Respiratory Rate 21 H 01/19/25 05:39 Blood Pressure 134/83 01/19/25 05:39 Pulse Oximetry 97 01/19/25 05:39 Oxygen Delivery Room Air 01/19/25 05:39 Temperature 98.4 F 01/19/25 05:39 Pulse Rate 91 01/19/25 07:38 Respiratory Rate 16 01/19/25 07:38 Blood Pressure 109/57 L 01/19/25 07:38 Pulse Oximetry 97 01/19/25 07:38 Oxygen Delivery Room Air 01/19/25 05:39 <Lavelle Aguilar MD - Last Filed: 01/19/25 07:06> Vital Signs Temperature 98.4 F 01/19/25 05:39 Pulse Rate 114 H 01/19/25 05:39 Respiratory Rate 21 H 01/19/25 05:39 Blood Pressure 134/83 01/19/25 05:39 Pulse Oximetry 97 01/19/25 05:39 Oxygen Delivery Room Air 01/19/25 05:39 Temperature 98.4 F 01/19/25 05:39 Pulse Rate 91 01/19/25 07:38 Respiratory Rate 16 01/19/25 07:38 Blood Pressure 109/57 L 01/19/25 07:38 Pulse Oximetry 97 01/19/25 07:38 Oxygen Delivery Room Air 01/19/25 05:39 <Edy Sood MD - Last Filed: 01/19/25 08:06> Medical Decision Making MDM Narrative Medical decision making narrative: The patient was evaluated by myself in the emergency department. History is obtained from patient who is an independent historian and physical exam was performed. External medical records were reviewed at this time. IV was established and pertinent tests were ordered. Patient was administered 1 mg of IV Dilaudid and 1 L IV fluid bolus with normal saline. EKG was obtained which revealed sinus tachycardia at a rate of 105 beats per minute, no evidence of acute ischemia. EKG was independently interpreted by me and is currently pending official cardiology read. Patient was signed out to AM ED physician pending remainder of the workup. <Lavelle Aguilar MD - Last Filed: 01/19/25 07:06> Vital Signs Vital Signs: Vital Signs Temperature 98.4 F 01/19/25 05:39 Pulse Rate 114 H 01/19/25 05:39 Respiratory Rate 21 H 01/19/25 05:39 Blood Pressure 134/83 01/19/25 05:39 Pulse Oximetry 97 01/19/25 05:39 Oxygen Delivery Room Air 01/19/25 05:39 Temperature 98.4 F 01/19/25 05:39 Pulse Rate 91 01/19/25 07:38 Respiratory Rate 16 01/19/25 07:38 Blood Pressure 109/57 L 01/19/25 07:38 Pulse Oximetry 97 01/19/25 07:38 Oxygen Delivery Room Air 01/19/25 05:39 <Lavelle Aguilar MD - Last Filed: 01/19/25 07:06> Vital Signs Temperature 98.4 F 01/19/25 05:39 Pulse Rate 114 H 01/19/25 05:39 Respiratory Rate 21 H 01/19/25 05:39 Blood Pressure 134/83 01/19/25 05:39 Pulse Oximetry 97 01/19/25 05:39 Oxygen Delivery Room Air 01/19/25 05:39 Temperature 98.4 F 01/19/25 05:39 Pulse Rate 91 01/19/25 07:38 Respiratory Rate 16 01/19/25 07:38 Blood Pressure 109/57 L 01/19/25 07:38 Pulse Oximetry 97 01/19/25 07:38 Oxygen Delivery Room Air 01/19/25 05:39 <Edy Sood MD - Last Filed: 01/19/25 08:06> Lab Data Result diagrams: 01/19/25 06:49 01/19/25 06:49 <Lavelle Aguilar MD - Last Filed: 01/19/25 07:06> Labs: Lab Results 01/19/25 01/19/25 Range/Units 06:49 06:49 WBC 14.6 H (4.5-10.0) K/mm3 RBC 2.74 L (4.6-6.20) M/mm3 Hgb 8.1 L (14.0-18.0) g/dL Hct 24.4 L (42.0-52.0) % MCV 89.1 (80-100) fl MCH 29.6 (26-34) pg MCHC 33.2 (32-36) g/dl RDW 21.3 H (11.5-14.5) % Plt Count 274 (150-375) k/mm3 MPV 10.1 (7.4-10.4) fl Immature Gran % (Auto) 0.4 (0-0.5) % Neut % (Auto) 51.7 (45.5-73.1) % Lymph % (Auto) 36.0 (18.3-44.2) % [place] % (Auto) 10.0 H (2.6-8.5) % Eos % (Auto) 1.4 (0-4.4) % Baso % (Auto) 0.5 (0.2-1.2) % Lymph # (Auto) 5.24 H (0.9-3.2) K/mm3 [place] # (Auto) 1.5 H (0.1-0.6) K/mm3 Eos # (Auto) 0.2 (0-0.3) K/mm3 Baso # (Auto) 0.1 (0.0-0.1) K/mm3 Abs Immat Gran (auto) 0.06 H (0.00-0.031) K/mm3 Absolute Neuts (auto) 7.5 H (1.3-6.7) K/mm3 Absolute Nucleated RBC 0.060 H (0.0-0.012) K/mm3 Band Neutrophils % Not Reportable Nucleated RBC % 0.4 H (0.0-0.2) % Platelet Estimate Adequate (Adequate) Large Platelets Present Giant Platelets Present Polychromasia Occasional Hypochromasia 1+ Anisocytosis 1+ Sickle Cells 1+ Target Cells 2+ Schistocytes Rare Absolute Retic 0.35 H (0.02-0.10) 10^6/uL Percent Retic 12.62 H (0.7-4.3) % Immature Retic Fraction 35.7 H (3.0-15.9) % Retic Hgb Content 33.4 (28.2-36.6) pg D-Dimer 1.92 H (<0.48) ug/mL Sodium 138 (137-145) mmol/L Potassium 3.6 (3.4-5.0) mmol/L Chloride 104 (98-107) mmol/L Carbon Dioxide 26 (22-30) mmol/L Anion Gap 8 (4-12) mmol/L BUN 4 L (9-20) mg/dL Creatinine 0.60 L (0.7-1.3) mg/dL Estim Creat Clear Calc 190 ml/min Estimated GFR > 60 (59 - ) Glucose 127 H (65-110) mg/dL Calcium 8.8 (8.4-10.2) mg/dL Magnesium 2.1 (1.6-2.3) mg/dL Total Bilirubin 7.4 H (0.2-1.3) mg/dL AST 50 (17-59) U/L ALT 24 (6-50) U/L Alkaline Phosphatase 236 H (38-126) U/L Troponin I < 0.012 Cancelled (0.000-0.034) ng/mL Total Protein 8.5 H (6.3-8.2) g/dL Albumin 4.4 (3.5-5.1) g/dL <Lavelle Aguilar MD - Last Filed: 01/19/25 07:06> Lab Results 01/19/25 01/19/25 Range/Units 06:49 06:49 WBC 14.6 H (4.5-10.0) K/mm3 RBC 2.74 L (4.6-6.20) M/mm3 Hgb 8.1 L (14.0-18.0) g/dL Hct 24.4 L (42.0-52.0) % MCV 89.1 (80-100) fl MCH 29.6 (26-34) pg MCHC 33.2 (32-36) g/dl RDW 21.3 H (11.5-14.5) % Plt Count 274 (150-375) k/mm3 MPV 10.1 (7.4-10.4) fl Immature Gran % (Auto) 0.4 (0-0.5) % Neut % (Auto) 51.7 (45.5-73.1) % Lymph % (Auto) 36.0 (18.3-44.2) % [place] % (Auto) 10.0 H (2.6-8.5) % Eos % (Auto) 1.4 (0-4.4) % Baso % (Auto) 0.5 (0.2-1.2) % Lymph # (Auto) 5.24 H (0.9-3.2) K/mm3 [place] # (Auto) 1.5 H (0.1-0.6) K/mm3 Eos # (Auto) 0.2 (0-0.3) K/mm3 Baso # (Auto) 0.1 (0.0-0.1) K/mm3 Abs Immat Gran (auto) 0.06 H (0.00-0.031) K/mm3 Absolute Neuts (auto) 7.5 H (1.3-6.7) K/mm3 Absolute Nucleated RBC 0.060 H (0.0-0.012) K/mm3 Band Neutrophils % Not Reportable Nucleated RBC % 0.4 H (0.0-0.2) % Platelet Estimate Adequate (Adequate) Large Platelets Present Giant Platelets Present Polychromasia Occasional Hypochromasia 1+ Anisocytosis 1+ Sickle Cells 1+ Target Cells 2+ Schistocytes Rare Absolute Retic 0.35 H (0.02-0.10) 10^6/uL Percent Retic 12.62 H (0.7-4.3) % Immature Retic Fraction 35.7 H (3.0-15.9) % Retic Hgb Content 33.4 (28.2-36.6) pg D-Dimer 1.92 H (<0.48) ug/mL Sodium 138 (137-145) mmol/L Potassium 3.6 (3.4-5.0) mmol/L Chloride 104 (98-107) mmol/L Carbon Dioxide 26 (22-30) mmol/L Anion Gap 8 (4-12) mmol/L BUN 4 L (9-20) mg/dL Creatinine 0.60 L (0.7-1.3) mg/dL Estim Creat Clear Calc 190 ml/min Estimated GFR > 60 (59 - ) Glucose 127 H (65-110) mg/dL Calcium 8.8 (8.4-10.2) mg/dL Magnesium 2.1 (1.6-2.3) mg/dL Total Bilirubin 7.4 H (0.2-1.3) mg/dL AST 50 (17-59) U/L ALT 24 (6-50) U/L Alkaline Phosphatase 236 H (38-126) U/L Troponin I < 0.012 Cancelled (0.000-0.034) ng/mL Total Protein 8.5 H (6.3-8.2) g/dL Albumin 4.4 (3.5-5.1) g/dL <Edy Sood MD - Last Filed: 01/19/25 08:06> Medical Decision Making MDM Documentation: Patient signed out to me pending lab work and re-evaluation. He received a total of 2 mg of Dilaudid prior to my evaluation. He continued to have pain so he was given additional 1 mg Dilaudid and Toradol and Benadryl per his prior regimens per the patient. He continues to have pain so he will require admission for further pain management. Discussed case with hospitalist who will admit the patient. <Edy Sood MD - Last Filed: 01/19/25 08:06> Discharge Plan Discharge Clinical Impression: Sickle cell pain crisis <Lavelle Aguilar MD - Last Filed: 01/19/25 07:06> Patient Disposition: Still a Patient <Lavelle Aguilar MD - Last Filed: 01/19/25 07:06> Condition: Improved <Lavelle Aguilar MD - Last Filed: 01/19/25 07:06> Patient Language: Estonian <Lavelle Aguilar MD - Last Filed: 01/19/25 07:06> Follow-up/Referrals: PHYSICIAN,HEALTH INFORMATION CLERK [Primary Care Provider, Internal Medicine] <Lavelle Aguilar MD - Last Filed: 01/19/25 07:06>
--- OUTSIDE RECORDS SUMMARY | 2025-01-19 06:26 | XMS_ITS | Encounter Summary ---
Author Organization [facility] Address [address] [facility] [place] [address] Care Team Providers Care Auto Parts Salesperson Name Role Phone Nina Hines APRN-TOP LIFT AND AUTOMATIC WINDOW REPAIRER Primary Care Provider + Given, None Primary Care Provider Laurent Noel MD Primary Care Provider [phone] Reason for Visit * Reason Onset Date Comments MEDICATION REFILL 07/16/2023 Encounter Details Date Type Department Care Team (Late st Contact Info) Description 07/16/2023 Refill [facility] - Internal Medicine [address] , [address] [address] Nina Hines, HEAD OF CYTOGENETICS-TOP LIFT AND AUTOMATIC WINDOW REPAIRER [address] [id number] MEDICATION REFILL Social History Tobacco Use Types Packs/Day Years Used Date Smoking Tobacco: Former Cigars Smokeless Tobacco: Never Alcohol Use Standard Drinks/Week Comments No 0 (1 standard drink = 0.6 oz pur e alcohol) AUDIT-C Answer Date Recorded Q1: How often do you have a drink containing alcohol? Never 06/19/2023 Q2: How many drinks containi ng alcohol do you have on a typical day when you are drinking? Patient does not drink Q3: How often do you have si x or more drinks on one occasion? Never 06/19/2023 Overall Financial Resource Strain (CARDIA) Answe r Date Recorded How hard is it for you to pa y for the very basics like food, housing, medical care, and heating? Patient declined 06/16/2023 [facility] Occupat ional Health - Occupational Stress Questionnaire Answer Date Recorded Do you feel stress - tense, restless, nervous, or anxious, or unable to sleep at night because your mind is troubled all the time - these days? Patient declined 06/16/2023 Hunger Vital Sign Answer Date Recorded Within the past 12 months, y ou worried that your food would run out before you got the money to buy more. Never true 06/27/19 24 Within the past 12 months, t he food you bought just didn't last and you didn't have money to get more. Never true 06/27/2023 PRAPARE - Transportation Answer Date Re corded In the past 12 months, has l ack of transportation kept you from medical appointments or from getting medications? Patient declined 06/16/2023 In the past 12 months, has l ack of transportation kept you from meetings, work, or from getting things needed for daily living? Patient declined 06/16/2023 Housing Stability Vital Sign Answer Samy e Recorded In the last 12 months, was t here a time when you were not able to pay the mortgage or rent on time? Patient declined 06/16/19 24 In the last 12 months, how many places have you lived? 0 06/16/2023 In the last 12 months, was t here a time when you did not have a steady place to sleep or slept in a longterm (including now)? 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 Male 5:02 AM CAR DUMPER OPERATOR HELPER Gender Identity Not on file Sexual Orientation Not on file documented as of this encounter Functional Status * Is person deaf or have serious hearing difficulty? Answer Date of Assessment Author No 06/16/2023 2:45 PM Radha Arzate RN * Is person blind or have serious difficulty seeing? Answer Date of Assessment Author No 06/16/2023 2:45 PM Radha Arzate RN * Does person have serious difficulty walking/climbing stairs? Answer Date of Assessment Author No 06/16/2023 2:45 PM Radha Arzate RN * Does person have difficulty dressing/bathing? Answer Date of Assessment Author No 06/16/2023 2:45 PM CAR DUMPER OPERATOR HELPER Redshaw, Radha K, RN * Does person have difficulty doing errands alone? Answer Date of Assessment Author No 06/16/2023 2:45 PM Radha Arzate RN documented as of this encounter Mental Status * Does person have difficulty concentrating/remembering/making decisions? Answer Entry Date Author No 06/16/2023 2:45 PM Radha Arzate RN documented in this encounter Plan of Treatment Not on file documented as of this encounter Visit Diagnoses Not on filedocumented in this encounter Additional Health Concerns Infection Onset Date Last Indicated Resolved Time C DIFF 06/20/2023 06/20/2023 09/29/2023 7:30 AM CDT C Diff Hx 09/29/2023 09/29/2023 CDIFF Under Investigation 12/04/2023 12/04/2023 11:10 PM CDT COVID-19 Under Investigation 01/19/2024 01/19/2024 01/19/2024 9:27 PM CDT COVID-19 Under Investigation 02/04/2024 02/04/2024 02/04/2024 12:49 PM CDT COVID-19 Under Investigation 02/09/2024 02/09/2024 02/09/2024 2:41 PM CDT COVID-19 Under Investigation 05/15/2024 05/15/2024 05/16/2024 3:26 AM CAR DUMPER OPERATOR HELPER COVID-19 Under Investigation 06/30/2024 06/30/2024 06/30/2024 7:12 PM CAR DUMPER OPERATOR HELPER documented as of this encounter Care Teams Auto Parts Salesperson Relationship Specialty Start Date End Date Nina Hines, [place]-TOP LIFT AND AUTOMATIC WINDOW REPAIRER [address] [phone] PCP - General Nurse Practitioner 07/16/23 08/26/23 Given, None PCP - General 09/28/23 01/14/24 Laurent Gonzalez MD [address] [place] [address] PCP - General Hematology 01/15/24 documented as of this encounter
--- OUTSIDE RECORDS SUMMARY | 2025-01-19 06:26 | XMS_ITS | Encounter Summary ---
Author Organization [facility] Address [address] [place] [address] Care Team Providers Care Shop Welder Name Role Phone Ray Sainz MD Unavailable [phone] Gordo Herrera MD Unavailable [phone] Miscellaneous, Not In File Unavailable Unava ilable Laurent Gonzalez MD Primary Care Provider [phone] Mariam Hedrick Unavailable Unavailable Ning Lowery DNP Unavailable [phone] Ana Duran RN Unavailable [phone] Areli Zuniga Unavailable Unavailable Ning Lowery DNP Unavailable [phone] Toibn Terrell MD Unavailable [phone] Encounter Details Date Type Department Care Team (Late st Contact Info) Description 05/15/2024 [facility] Main [address] [id number] Forrest Domínguez, BOUCHRA Social History Tobacco Use Types Packs/Day Years Used Date Smoking Tobacco: Never Smokeless Tobacco: Never Alcohol Use Standard Drinks/Week Comments Not Currently 0 (1 standard drink = 0.6 oz pur e alcohol) [facility] Utilities Answer Date Recorded In the past 12 months has e electric, gas, oil, or water company threatened to shut off services in your home? No 05/13/2024 Social Connection and Isolation Panel Answer Date Recorded In a typical week, how many times do you talk on the phone with family, friends, or neighbors? More than three times a week 05/13/2024 How often do you get togethe r with friends or relatives? More than three times a week 05/13/2024 How often do you attend chur ch or religion services? Never 05/13/2024 Do you belong to any clubs o r organizations such as orthodox groups, unions, fraternal or athletic groups, or school groups? No 05/13/2024 How often do you attend meet ings of the clubs or organizations you belong to? Never 05/13/2024 Are you , , di vorced, , never , or living with a partner? Never 05/13/2024 AUDIT-C Answer Date Recorded Q1: How often do you have a drink containing alcohol? Never 05/12/2024 Q2: How many drinks containi ng alcohol do you have on a typical day when you are drinking? Patient does not drink Q3: How often do you have si x or more drinks on one occasion? Never 05/12/2024 Overall Financial Resource Strain (CARDIA) Answe r Date Recorded How hard is it for you to pa y for the very basics like food, housing, medical care, and heating? Not hard at all 05/13/2024 PHQ-2 Answer Date Recorded PHQ-2 Total Score 0 12/18/2023 Hunger Vital Sign Answer Date Recorded Within the past 12 months, y ou worried that your food would run out before you got the money to buy more. Never true 05/13/20 24 Within the past 12 months, t he food you bought just didn't last and you didn't have money to get more. Never true 05/13/2024 PRAPARE - Transportation Answer Date Re corded In the past 12 months, has l ack of transportation kept you from medical appointments or from getting medications? No 04/25 In the past 12 months, has l ack of transportation kept you from meetings, work, or from getting things needed for daily living? No 05/13/2024 Housing Stability Vital Sign Answer Samy e [...] place to sleep or slept in a correction (including now)? No 09/01/2023 Housing Stability Vital Sign Answer Samy e Recorded In the last 12 months, was t here a time when you were not able to pay the mortgage or rent on time? No 05/13/2024 In the past 12 months, how m any times have you moved where you were living? 0 05/13/2024 At any time in the past 12 m [facility], were you homeless or living in a correction (including now)? No 05/13/2024 Personal Safety Answer Date Recorded Have you ever been in or are you currently in a harmful physical or emotional relationship or is someone making you feel afraid or unsafe? Denies 05/11/2024 Sex and Gender Information Value Date Recorded Sex Assigned at Not on file Legal Sex Male 10:50 AM PRINTER HELPER Gender Identity Male 12/06/2024 9:44 PM CDT Sexual Orientation Straight 12/06/2024 9: 44 PM CDT documented as of this encounter Plan of Treatment Not on file documented as of this encounter Visit Diagnoses Not on filedocumented in this encounter Additional Health Concerns Infection Onset Date Last Indicated Resolved Time COVID: Suspected 05/29/2024 05/29/2024 05/29/2024 10:06 PM PRINTER HELPER COVID: Suspected 07/24/2024 07/24/2024 07/24/2024 5:44 AM PRINTER HELPER Norovirus suspected 07/24/2024 07/24/2024 07/30/19 3:05 AM PRINTER HELPER C. difficile suspected 07/24/2024 07/24/202407/29 3:05 AM PRINTER HELPER COVID: Suspected 08/13/2024 08/13/2024 08/13/2024 1:30 PM CDT COVID: Suspected 11/01/2024 11/01/2024 11/01/2024 2:39 PM CDT Ring Surveillance: C. auris 11/08/2024 11/08/2024 11/15/2024 7:26 PM CDT COVID: Suspected 12/23/2024 12/23/2024 12/23/2024 5:12 PM CDT documented as of this encounter Care Teams Shop Welder Relationship Specialty Start Date End Date Laurent Gonzalez MD [address] [place] [address] PCP - General Hematology and Oncology 10/18/23 Ray Sainz MD [address] [facility] [address] [place] [address] 02/10/20 [place] [address] [facility] [address] [place] [address] Consulting Physician Family Medicine 05/05/22 Miscellaneous, Not In File 12/14/22 Mariam Hedrick Outpatient Disability Rater 05/31/24 08/15/24 Ning Lowery DNP [address] [facility] [address] [place] [address] Nurse Practitioner Internal Medicine 05/31/24 08/15/24 Ana Duran, BOUCHRA [address] [facility] [address] [place] [address] [facility] Outpatient Disability Rater 07/29/24 08/02/24 Areli Zuniga Outpatient Disability Rater 08/16/24 09/23/24 Ning Lowery DNP [address] [facility] [address] [place] [address] Nurse Practitioner Internal Medicine 08/16/24 09/23/24 [place] [address] [facility] [address] [place] [address] Consulting Physician Orthopedic Surgery 08/18/24 documented as of this encounter
--- OUTSIDE RECORDS SUMMARY | 2025-01-19 06:26 | XMS_ITS | Encounter Summary ---
Author Organization [facility] Address [address] [place] [address] Care Team Providers Care Stogy Roller Name Role Phone Ray Sainz MD Unavailable [phone] Gordo Herrera MD Unavailable [phone] Miscellaneous, Not In File Unavailable Unava ilable Lauernt Gonzalez MD Primary Care Provider [phone] Mariam Hedrick Unavailable Unavailable Ning Lowery DNP Unavailable [phone] Ana Duran RN Unavailable [phone] Areli Zuniga Unavailable Unavailable Ning Lowery DNP Unavailable [phone] Tobin Terrell MD Unavailable [phone] Encounter Details Date Type Department Care Team (Late st Contact Info) Description 08/02/2024 [facility] Sickle Cell CHW Initial Eligibility Review [facility] Sickle Cell Disease Community Health Worker [address] [place] [id number] Divya Wallace Social History Tobacco Use Types Packs/Day Years Used Date Smoking Tobacco: Never Smokeless Tobacco: Never Alcohol Use Standard Drinks/Week Comments Not Currently 0 (1 standard drink = 0.6 oz pur e alcohol) [facility] Utilities Answer Date Recorded In the past 12 months has [employer], gas, oil, or water [employer] threatened to shut off services in your home? No 07/26/2024 Social Connection and Isolation Panel Answer Date Recorded In a typical week, how many times do you talk on the phone with family, friends, or neighbors? Never 07/26/2024 How often do you get together with friends or re latives? Never 07/26/2024 How often do you attend advent or sabianist serv ices? Never 07/26/2024 Do you belong to any clubs o r organizations such as advent groups, unions, fraternal or athletic groups, or school groups? No 07/26/2024 How often do you attend meet ings of the clubs or organizations you belong to? Never 07/26/2024 Are you , , di vorced, , never , or living with a partner? Never 07/26/2024 AUDIT-C Answer Date Recorded Q1: How often [...] care, and heating? Not hard at all 07/26/2024 PHQ-2 Answer Date Recorded PHQ-2 Total Score 0 07/26/2024 Hunger Vital Sign Answer Date Recorded Within the past 12 months, y ou worried that your food would run out before you got the money to buy more. Never true 07/27/19 25 Within the past 12 months, t he food you bought just didn't last and you didn't have money to get more. Never true 07/26/2024 PRAPARE - Transportation Answer Date Re corded In the past 12 months, has l ack of transportation kept you from medical appointments or from getting medications? No 07/2024 In the past 12 months, has l ack of transportation kept you from meetings, work, or from getting things needed for daily living? No 07/26/2024 Housing Stability Vital Sign Answer Samy e [...] place to sleep or slept in a halfway (including now)? No 09/01/2023 Housing Stability Vital Sign Answer Samy e Recorded In the last 12 months, was t here a time when you were not able to pay the mortgage or rent on time? No 07/26/2024 In the past 12 months, how m any times have you moved where you were living? 0 07/26/2024 At any time in the past 12 m [facility], were you homeless or living in a halfway (including now)? No 07/26/2024 Personal Safety Answer Date Recorded Have you ever been in or are you currently in a harmful physical or emotional relationship or is someone making you feel afraid or unsafe? 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 auris 11/08/2024 11/08/2024 11/15/2024 7:26 PM CDT COVID: Suspected 12/23/2024 12/23/2024 12/23/2024 5:12 PM CDT documented as of this encounter Care Teams Stogy Roller Relationship Specialty Start Date End Date Laurent Gonzalez MD [address] [place] [address] PCP - General Hematology and Oncology 10/18/23 Ray Sainz MD [address] [facility] [address] [place] [address] 02/10/20 [place] [address] [facility] [address] [place] [address] Consulting Physician Family Medicine 05/05/22 Miscellaneous, Not In File 12/14/22 Mariam Hedrick Outpatient Document Imaging Manager 05/31/24 08/15/24 Ning Lowery DNP [address] [facility] [address] [place] [address] Nurse Practitioner Internal Medicine 05/31/24 08/15/24 Ana Duran, RN [address] [facility] [address] [place] [address] [facility] Outpatient Document Imaging Manager 07/29/24 08/02/24 Areli Zuniga Outpatient Document Imaging Manager 08/16/24 09/23/24 Ning Lowery DNP [address] [facility] [address] [place] [address] Nurse Practitioner Internal Medicine 08/16/24 09/23/24 [place] [address] [facility] [address] [place] [address] Consulting Physician Orthopedic Surgery 08/18/24 documented as of this encounter
--- OUTSIDE RECORDS SUMMARY | 2025-01-19 06:26 | XMS_ITS | CCD ---
Author Name Interface, [address] Address More breakthroughs. More victories. [address] Oncology Address [place] [address] Reason for Visit Social History
--- OUTSIDE RECORDS SUMMARY | 2025-01-19 06:28 | XMS_ITS | Clinical Summary ---
Author Organization [facility] Address [address] [place] [address] Phone Care Team Providers Care Wire Stitcher Name Role Phone Unavailable Primary Care Provider Unavailabl e Allergies Active Allergy Reactions Criticality Noted Date Comments Ceftriaxone Anaphylaxis High 04/16/2024 Chlorhexidine [place] Itching,Rash Medium 12/25/2023 Doxycycline Nausea and Vomiting Low 06/11/2024 Fentanyl Other (See Comments) Low 04/25/2022 Numbness lower lip and teeth Ketamine Anxiety,Hallucination Low 05/24/2023 I freaked out Morphine Hives High 04/15/2022 Vancomycin Unknown 10/19/2024 Medications folic acid (FOLVITE) 1 mg tablet Take 1 mg by mouth daily. Active naloxone (NARCAN) 4 mg/spray [place], Non-Aerosol EMERGENCY USE ONLY: Administer 1 spray (4 mg) in one nostril one time. May repeat in alternating nostrils every 2-3 min until responsive or EMS arrives. 2 Each 3 5 Active hydrocortisone (CORTEF) 5 mg Tablet Take 2 tablets (10mg) by mouth every morning (AM) and take 1 tablet (5mg) every evening (PM) 45 Tablet 5 Active Additional Information Patient taking differently: 10 mg Oral DAILY WITH BREAKFAST, Take 2 tablets (10mg) by mouth every morning (AM) and take 1 tablet (5mg) every evening (PM), Reported on 12/23/2024 oxyCODONE-aceta minophen (PERCOCET) 10-325 mg TabletIndicatio ns:Sickle cell crisis (CMS/HCC) Take 3 Tablets by mouth every 8 hours as needed for Pain, Severe. .Max Daily Amount: 9 Tablets 21 Tablet 11/08/2024 6:21 PM CDT Active Active Problems Problem Noted Date Diagnosed Date Acute diarrhea 10/20/2024 Adrenal insufficiency 10/20/2024 Pain crisis 09/03/2024 Bloody diarrhea 09/01/2024 Dysenteric diarrhea 08/31/2024 B12 deficiency 01/29/2024 Normocytic anemia 01/27/2024 Sickle cell crisis 01/26/2024 Avascular necrosis of bone 11/30/2023 Chronic pain syndrome 11/30/2023 History of Clostridium difficile infection 08/13 S/P splenectomy 06/02/2023 Reactive thrombocytosis 06/02/2023 Productive cough 08/02/2022 Gastroesophageal reflux disease 06/23/2022 Sickle cell pain crisis 04/16/2022 Asthma Microcytic anemia Resolved Problems Problem Noted Date Diagnosed Date Resolved Date Leukocytosis (leucocytosis) 01/27/2024 02/03/2024 History of transfusion 11/30/202301/24 Sickle cell disease without crisis 11/07/2023 01/25/2024 C. difficile colitis 08/15/2023 024 Acute gastroenteritis 08/14/20232023 Abnormal CXR 08/14/2023 01/25/2024 Acute appendicitis 06/02/2023 Generalized pain 06/02/2023 01/25/2024 Acute chest pain 02/25/2023 01/25/2024 COVID-19 virus detected 02/21/2023 09/0 05/2023 Shortness of breath 02/20/2023 01/25/20 24 Rectal bleeding 12/06/2022 01/25/2024 Elevated LFTs 08/02/2022 01/25/2024 Nausea vomiting and diarrhea 08/02/2022 02/03/2024 Gastroenteritis and colitis, viral 08/02/2022 01/25/2024 Pneumonia of right lung due to infectious organism 07/30/2022 01/25/2024 Pulmonary infiltrate 07/30/2022 024 Infection due to human metapneumovirus (hMPV) 07/29/19 23 01/25/2024 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 01/25/2024 Periodontal disease 06/27/2022 01/25/20 24 History of splenectomy 06/27/202201/24 Jaw pain 06/26/2022 01/25/2024 Lesion of mandible 06/25/2022 4 Shortness of breath 06/23/2022 07/27/19 23 Constipation 06/23/2022 01/25/2024 Sickle cell anemia with pain 06/17/2022 01/25/2024 Nausea 06/16/2022 07/26/2022 Chronic pain syndrome 05/31/20222022 Avascular necrosis of bone of hip, left 05/30/2022 01/25/2024 Elevated alkaline phosphatase level 05/20/2022 01/25/2024 Acute diarrhea 05/20/2022 07/26/2022 Respiratory distress 04/17/2022 023 Generalized pruritus 04/17/2022 022 Atypical pneumonia 04/16/2022 3 Community acquired pneumonia 04/15/2022 07/26/2022 Sickle-cell anemia 4 Hypokalemia 01/25/2024 Sickle cell crisis Encounters Date Type Department Care Team Description 01/18/2025 External Device Data [facility]CTION Provider, Abstract 01/12/2025 External Device Data [facility] Provider, Abstract 12/29/2024 External Device Data [facility] Provider, Abstract 12/28/2024 External Device Data [facility] Provider, Abstract 12/28/2024 External Device Data [facility] Provider, Abstract 12/23/2024 12:38 AM CDT - 12/23/2024 12:06 PM CDT Emergency [facility] Emergency Department [address] [place] [address] Thien Narayan MD Sickle cell pain crisis (CMS/HCC) (Primary Dx) Discharge Disposition: Home or Self Care 12/14/2024 External Device Data [facility]STRACTION Provider, Abstract 12/09/2024 8:20 PM CDT - 12/13/2024 11:30 AM CDT Hospital Encounter [facility] Telemetry [address] [place] [address] Guy Lowery MD Abduljaber, MD Marlin Gale, Humberto Elam MD Sickle cell crisis ([facility]) Discharge Disposition: Home or Self Care 12/09/2024 Travel 12/08/2024 External Device Data [facility] Provider, Abstract 12/07/2024 External Device Data [facility] Provider, Abstract 11/23/2024 External Device Data [facility] Provider, Abstract 11/23/2024 External Device Data [facility] Provider, Abstract 11/16/2024 External Device Data [facility] Provider, Abstract 10/20/2024 3:42 AM CDT - 10/29/2024 2:51 PM CDT Hospital Encounter [facility] Oncology [address] [place] [address] Thien Narayan MD Page, William J, MD Hill, Fransisco Mcelroy, DO [place], Lory Mcelroy, Song Up MD Sickle cell crisis ([facility]) Discharge Disposition: Home or Self Care 10/19/2024 Travel 10/19/2024 External Device Data [facility] Provider, Abstract from Last 3 Months Immunizations Immunization Administration Dates Next Due (ADACEL/BOOSTRIX)(10 YR UP) TDAP VACCINE, 0.5ML, IM 02/10/2020,09/27/2009,12/30/2007 (HAVRIX/VAQTA)(12 MO-18 YRS) HEPATITIS A VACCINE 0.5 ML PED/ADOL 2 DOSE, IM 09/27/2009 (INFANRIX)(6 WKS-6 YRS) DIPT HERIA, TETANUS TOXOIDS, AND ACCELLULAR PERTUSSIS VACCINE (DTAP), 0.5 ML IM 08/25/1998 (M-M-R II/PRIORIX)(12 MO UP) MEASLES, MUMPS AND RUBELLA VIRUS VACCINE, 0.5 ML IM/SUBCUT 08/25/1998 (PEDVAXHIB)(2 - 71 MOS) HIB PRP-OMP VACCINE, 3 DOSE, 0.5 ML IM0] 03/16/1999 (VARIVAX)(12 MOS UP)VARICELL A VIRUS VACCINE (PF) 0.5 ML, SUB CUT 06/27/1999 Influenza A (H1N1) Vaccine IM 05/03/2009 Influenza Seasonal Unspecifi ed Formulation PF IM 02/20/2011,05/03/2009 Influenza Virus Vaccine, Spl it Virus (Incl. Purified Surface antigen)-retired CODE 05/03/2009 Poliovirus Vaccine, Unspecified Formulation 06/1998 Social History Tobacco Use Types Packs/Day Years Used Date Smoking Tobacco: Never Smokeless Tobacco: Never Tobacco Cessation:Counseling Given: Not Answered Alcohol Use Standard Drinks/Week Comments Not Currently 0 (1 standard drink = 0.6 oz pur e alcohol) Feeling Safe Answer Date Recorded Are you in a relationship wi th someone who hurts you emotionally and/or physically? 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 Gender Identity Not on file Sexual Orientation Not on file Last Filed Vital Signs Vital Sign Reading Time Taken Comments Blood Pressure 136/75 12/23/2024 10:00 AM CDT Pulse 99 12/23/2024 10:00 AM CDT Temperature 36.7 C (98 F) 12/23/2024 7:00 AM CDT Respiratory Rate 18 12/23/2024 7:00 AM CDT Oxygen Saturation 93% 12/23/2024 10:00 AM CDT Inhaled Oxygen Concentration - - Weight 104.8 kg (231 lb) 12/09/2024 9:00 PM CDT Height 177.8 cm (5' 10) 12/09/2024 9:00 PM CDT Body Mass Index 33.15 12/09/2024 9:00 PM CDT Plan of Treatment Health Maintenance Due Date Last Done Comments HEPATITIS B VACCINES (1 of 3 - 19+ 3-dose series) 11/06/2015 HPV VACCINES (1 - 3-dose SCD M series) 11/06/2023 COVID-19 Vaccine (2 - 2023-2 5 season) 2024 01/23/2022 INFLUENZA VACCINE (#1) 2024 1, 05/03/2009, 05/03/2009 DTAP/TDAP/TD VACCINES (5 - T d or Tdap) 02/09/2030 02/10/2020, 09/27/2009, 12/30/2007, Additional history exists Medical Devices Implanted Type Area Toy Electric Train Repairer Device Identifier Shelf Expiration Date Model / Serial / Lot Core Decompression Procedure Kit Pro Dense Implanted:Qty: 1 on 06/30/2022 by Gordo Suazo MD at [facility] Left: Hip [employer] [id number] 04/28/2027 [id number] / / [id number] Description:Requisition # [id number]. Procedures Procedure Name Priority Date/Time Associated Diagnosis Comments EXTRA TUBE (URINE CONTAINER) Stat 12/23/2024 9:14 AM CDT EXTRA TUBE Stat 12/23/2024 9:14 AM CDT RETICULOCYTES Stat 12/23/2024 1:41 AM CDT COMPREHENSIVE METABOLIC PANEL Stat 12/23/2024 1:41 AM CDT CBC WITH DIFFERENTIAL Stat 12/23/2024 1:41 AM CDT XR CHEST PA AND LATERAL 2 VW Stat 12/22/2024 8:54 PM CDT EKG 12-LEAD Stat 12/22/2024 6:52 PM CDT TELEMETRY REPORT 12/15/2024 12:0 8 PM CDT TELEMETRY REPORT 12/14/2024 4:24 PM CDT COMPREHENSIVE METABOLIC PANEL Routine 12/12/2024 10:12 AM CDT CBC WITH DIFFERENTIAL Routine 12/12/2024 10:12 AM CDT COMPREHENSIVE METABOLIC PANEL Routine 12/11/2024 2:44 PM CDT CBC WITH DIFFERENTIAL Routine 12/11/2024 2:44 PM CDT XR CHEST PA AND LATERAL 2 VW Routine 12/10/2024 3:13 PM CDT HAPTOGLOBIN Routine 12/10/2024 8:19 AM CDT LACTATE DEHYDROGENASE Routine 12/10/2024 8:19 AM CDT TROPONIN BASELINE, 5TH GEN Stat 12/10/2024 8:19 AM CDT RETICULOCYTES Routine 12/10/2024 8:19 AM CDT COMPREHENSIVE METABOLIC PANEL Routine 12/10/2024 8:19 AM CDT CBC WITH DIFFERENTIAL Routine 12/10/2024 8:19 AM CDT DIFFERENTIAL, MANUAL Routine 10/27/2024 12:19 PM CDT LACTATE DEHYDROGENASE Routine 10/27/2024 12:19 PM CDT RETICULOCYTES Routine 10/27/2024 12:19 PM CDT CBC WITH DIFFERENTIAL Routine 10/27/2024 12:19 PM CDT DIFFERENTIAL, MANUAL Routine 10/26/2024 11:18 AM CDT LACTATE DEHYDROGENASE Routine 10/26/2024 11:18 AM CDT RETICULOCYTES Routine 10/26/2024 11:18 AM CDT CBC WITH DIFFERENTIAL Routine 10/26/2024 11:18 AM CDT COMPREHENSIVE METABOLIC PANEL Routine 10/26/2024 4:56 AM CDT DIFFERENTIAL, MANUAL Routine 10/23/2024 7:08 PM CDT RETICULOCYTES Routine 10/23/2024 7:08 PM CDT COMPREHENSIVE METABOLIC PANEL Routine 10/23/2024 7:08 PM CDT CBC WITH DIFFERENTIAL Routine 10/23/2024 7:08 PM CDT MRI SHOULDER WO CONTRAST RIGHT Routine 10/22/2024 3:17 PM CDT DIFFERENTIAL, MANUAL Routine 10/21/2024 7:15 AM CDT RETICULOCYTES Routine 10/21/2024 7:15 AM CDT CBC WITH DIFFERENTIAL Routine 10/21/2024 7:15 AM CDT URINALYSIS W/REFLEX MICROSCOPIC Stat 10/20/2024 10:32 PM CDT XR CHEST PA OR AP 1 VW Stat 9:34 AM CDT DIFFERENTIAL, MANUAL Stat 10/20/2024 4:04 AM CDT RETICULOCYTES Stat 10/20/2024 4:04 AM CDT COMPREHENSIVE METABOLIC PANEL Stat 10/20/2024 4:04 AM CDT CBC WITH DIFFERENTIAL Stat 10/20/2024 4:04 AM CDT EKG 12-LEAD Stat 10/19/2024 11:14 PM CDT EKG 12-LEAD Stat 10/19/2024 9:09 PM CDT from Last 3 Months Results * EXTRA TUBE (URINE CONTAINER) (12/23/2024 9:14 AM CDT) Urine URINE SPECIMEN OBTAINED BY CLEAN CATCH PROCEDURE / Unknown Collection / Unknown 12/23/2024 9:14 AM CDT 12/23/2024 9:19 AM CDT us Protocol [facility] Emergency MD URINE ORDERABLES Fin al Result [employer] [facility] - [facility] CLIA# [id number] [address] [place] [address] * (ABNORMAL) CBC WITH DIFFERENTIAL (12/23/2024 1:41 AM CDT) Only the most recent of9 resultswithin the time period is included. WBC 10.9(H) 4.0 - 9.8 K/uL 12/23/2024 2:39 AM CDT [employer] [facility] - [facility] NRBCS 1 % 12/23/2024 2:39 AM CDT [employer] [facility] RBC 2.86(L) 4.50 - 5.40 M/uL 12/23/2024 2:39 AM CDT [employer] [facility] - [facility] HEMOGLOBIN 8.4(L) 13.6 - 16.5 g/dL 12/23/2024 2:39 AM CDT [employer] [facility] - [facility] HEMATOCRIT 25.2(L) 40.0 - 48.0 % 12/23/2024 2:39 AM CDT [employer] [facility] MCV 88.1 82.0 - 99.0 fL 12/23/2024 2:39 AM CDT [employer] [facility] MCH 29.4 27.2 - 32.6 pg 12/23/2024 2:39 AM CDT [employer] [facility] - [facility] MCHC 33.3 31.5 - 35.5 g/dL 12/23/2024 2:39 AM CDT [employer] [facility] RDW 19.3(H) 11.5 - 14.5 % 12/23/2024 2:39 AM CDT [employer] [facility] RDW-STDEV 62.1(H) 37.1 - 48.7 fL 12/23/2024 2:39 AM CDT [employer] [facility] PLATELETS 359(H) 140 - 350 K/uL 12/23/2024 2:39 AM CDT [employer] [facility] MPV 10.5 9.3 - 12.4 fL 12/23/2024 2:39 AM CDT [employer] [facility] NEUTROPHILS 60 % 12/23/2024 2:39 AM CDT [facility] LYMPHOCYTES 29 % 12/23/2024 2:39 AM CDT [facility] MONOCYTES 10 % 12/23/2024 2:39 AM CDT [facility] EOSINOPHILS 1 % 12/23/2024 2:39 AM CDT [facility] BASOPHILS 1 % 12/23/2024 2:39 AM CDT [facility] IMMATURE GRANULOCYTES 0 % 12/23/2024 2:39 AM CDT [facility] NEUTROPHIL ABSOLUTE 6.56 1.90 - 7.00 K/uL 12/23/2024 2:39 AM CDT [facility] LYMPHOCYTE ABSOLUTE 3.10 0.70 - 4.50 K/uL 12/23/2024 2:39 AM CDT [facility] MONOCYTE ABSOLUTE 1.03 0.10 - 1.30 K/uL 12/23/2024 2:39 AM CDT [facility] EOSINOPHIL ABSOLUTE 0.08 0.00 - 0.70 K/uL 12/23/2024 2:39 AM CDT [facility] BASOPHILS ABSOLUTE 0.05 0.00 - 0.20 K/uL 12/23/2024 2:39 AM CDT [facility] IMMATURE GRANULOCYTES ABSOLUTE 0.03 0.00 - 0.03 K/uL 12/23/2024 2:39 AM CDT [facility] Blood Venipuncture / Unknown 12/23/2024 1:41 AM CDT 12/23/2024 1:47 AM CDT us Bk Luke IV, DO HEMATOLOGY ORDERA BLES Final Result [facility] - [facility] CLIA# [id number] [address] [facility] [address] [place] [address] * (ABNORMAL) RETICULOCYTES (12/23/2024 1:41 AM CDT) Only the most recent of7 resultswithin the time period is included. Pathologist [facility] RETICULOCYTES 13.0(H) 0.7 - 2.9 % 12/23/2024 3:04 AM CDT [facility] LABORATORY [facility] IMMATURE RETIC FRACTION 37.2(H) 3.0 - 18.0 % 12/23/2024 3:04 AM T [facility] LABORATORY [facility] RETICULOCYTE, ABSOLUTE 0.3656 10e6/uL 12/23/2024 3:04 AM T [facility] - [facility] Comment:Quantitated by dilut ion. Blood Venipuncture / Unknown 12/23/2024 1:41 AM CDT 12/23/2024 1:47 AM CDT Bk Luke IV, DO HEMATOLOGY ORDERA BLES Final Result [facility] [employer] [facility]# [id number] [address] [place] [address] * (ABNORMAL) COMPREHENSIVE METABOLIC PANEL (12/23/2024 1:41 AM CDT) Only the most recent of7 resultswithin the time period is included. Pathologist [facility] SODIUM 136 136 - 145 mmol/L 12/23/2024 2:23 AM T [employer] LABORATORY SERVICES [facility] POTASSIUM 3.5 3.5 - 5.0 mmol/L 12/23/2024 2:23 AM T [facility]ORATORY SERVICES [facility] CHLORIDE 102 98 - 107 mmol/L 12/23/2024 2:23 AM T [facility] CO2 24 22 - 29 mmol/L 12/23/2024 2:23 AM T [employer] LABORATORY SERVICES [facility] CALCIUM 9.2 8.6 - 10.2 mg/dL 12/23/2024 2:23 AM T [facility] LABORATORY SERVICES [facility]. [facility] BUN 3(L) 6 - 20 mg/dL 12/23/2024 2:23 AM T [facility] LABORATORY SERVICES [facility]. [facility] CREATININE 0.49(L) 0.67 - 1.17 mg/dL 12/23/2024 2:23 AM [facility] GLUCOSE 101(H) 74 - 99 mg/dL 12/23/2024 2:23 AM [facility] TOTAL PROTEIN 8.0 6.7 - 8.6 g/dL 12/23/2024 2:23 AM [facility] ALBUMIN 4.1 3.5 - 5.2 g/dL 12/23/2024 2:23 AM [facility] BILIRUBIN TOTAL 5.7(H) 0.0 - 1.2 mg/dL 12/23/2024 2:23 AM [facility] ALKALINE PHOSPHATASE 403(H) 40 - 129 U/L 12/23/2024 2:23 AM [facility] AST 78(H) <41 U/L 12/23/2024 2:23 AM [facility] ALT 49(H) <42 U/L 12/23/2024 2:23 AM [facility] GFR >60 >=60 mL/min/1.7 3 sq meter 12/23/2024 2:23 AM [facility] Comment:eGFR calculated with 2020 CKD-EPI equation. Vegetarian diet, extremely high or low muscle mass, and may affect results. Cystatin C with Glomerular Filtration Rate is a suitable alternative for these patients. ANION GAP 10 8 - 16 mmol/L 12/23/2024 2:23 AM [facility] Blood Venipuncture / Unknown 12/23/2024 1:41 AM CDT 12/23/2024 1:47 AM [facility] Narrative [facility] - 12/23/2024 2:23 AM [facility] Samples containing indocyanine green cause interferences on Total and/or Direct Bilirubin and must not be measured. us Bk Luke IV, DO CHEMISTRY ORDERAB LES Final Result [facility] CLIA# [id number] [address] [place] [address] * XR CHEST PA AND LATERAL 2 VW (12/22/2024 8:54 PM CDT) Only the most recent of2 resultswithin the time period is included. Anatomical Region Laterality Modality Chest Computed Radiogr aphy 12/22/2024 8:55 PM CDT Impressions 12/22/2024 9:02 PM CDT FINDINGS/IMPRESSION: MEDIASTINUM: Stable cardiomediastinal contours. Cardiac silhouette is mildly enlarged. Suggestion of pulmonary vascular congestion. LUNGS: No focal consolidation, pleural effusion or pneumothorax. OTHER: Osteonecrosis of the humeral heads again noted, right greater than left. DICTATION LOCATION: Location 4 Narrative 12/22/2024 9:02 PM CDT XR CHEST PA AND LATERAL 2 VW Ordering provider: [facility] History: 29 years Male with Chest Pain. See Reason for Exam. Comparison: 12/10/2024 Procedure Note Saeid Higgins MD - 12/22/2024 XR CHEST PA AND LATERAL 2 VW Ordering provider: [facility] History: 29 years Male with Chest Pain. See Reason for Exam. Comparison: 12/10/2024 FINDINGS/IMPRESSION: MEDIASTINUM: Stable cardiomediastinal contours. Cardiac silhouette is mildly enlarged. Suggestion of pulmonary vascular congestion. LUNGS: No focal consolidation, pleural effusion or pneumothorax. OTHER: Osteonecrosis of the humeral heads again noted, right greater than left. DICTATION LOCATION: Location 4 Thien Narayan MD DIAGNOSTIC IMAGING ORDERABLES Final Result * EKG 12-LEAD (12/22/2024 6:52 PM CDT) Only the most recent of3 resultswithin the time period is included. 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1995 Requested By: Order Number: [id number] Reading MD: Jame Hernandez Measurements Intervals Golva Rate: 93 P: 24 RI: 202 QRS: 26 QRSD: 87 T: 24 QT: 379 QTc: 472 Interpretive Statements Sinus rhythm Borderline prolonged RI interval Possible left atrial enlargement Borderline prolonged QT interval Electronically Signed On 12-23-2024 6:03:06 CDT by Jame Hernandez Procedure Note Jame Hernandez MD - 12/23/2024 [facility] [address] [facility], [place] [address] Test Date: 2024-12-22 Pat Name: JOHNNY SIMON Department: 37 Room: Gender: Male 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 us Provider Scanning ECG ORDERABLES Final Result * TROPONIN BASELINE, 5TH GEN (12/10/2024 8:19 AM CDT) TROPONIN T, BASELINE 5TH GEN <6 <=15 ng/L 12/10/2024 9:[address] [facility] Blood Venipuncture / Unknown 12/10/2024 8:19 AM CDT 12/10/2024 8:36 AM CDT Narrative [facility] [employer] [facility] - 12/10/2024 9:24 AM CDT Troponin Undetectable [facility] CHEMISTRY ORDERABLES Fin al Result Performing Organization Address City/[facility]/ZIP Co de Phone Number [facility] [employer] [facility] CLIA# [id number] [address] [place] [address] * (ABNORMAL) LACTATE DEHYDROGENASE (12/10/2024 8:19 AM CDT) Only the most recent of3 resultswithin the time period is included. LD (LACTATE DEHYDROGENASE) 438(H) 135 - 225 U/L 12/10/2024 9:24 AM CDT [facility] [employer] [facility] Comment:Moderate hemolysis p resent. Can cause significant falsely elevated result. Redraw if indicated. Blood Venipuncture / Unknown 12/10/2024 8:19 AM CDT 12/10/2024 8:36 AM CDT [facility]ERT[facility] CHEMISTRY ORDERABLES Fin al Result Performing Organization Address [facility] Co de Phone Number [facility] [employer] [facility] CLIA# [id number] [address] [place] [address] * (ABNORMAL) HAPTOGLOBIN (12/10/2024 8:19 AM CDT) HAPTOGLOBIN <10(L) 30 - 200 mg/dL 12/10/2024 9:42 AM CDT [facility] [employer] [facility] Comment:Hemolysis present. R esult may be falsely decreased. Blood Venipuncture / Unknown 12/10/2024 8:19 AM CDT 12/10/2024 8:34 AM CDT [facility] [employer] CHEMISTRY ORDERABLES Fin al Result Performing Organization Address City/[facility]/ZIP Co de Phone Number [facility] [employer] [facility] CLIA# [id number] [address] [place] [address] * MANUAL DIFFERENTIAL (10/27/2024 12:19 PM CDT) Only the most recent of5 resultswithin the time period is included. PLATELET EST. Consistent w Count 10/27/2024 1:50 PM CDT [facility] LAB[facility]ORY SERVICES - . [facility] ANISOCYTOSIS 1+ /hpf 10/27/2024 1:50 PM CDT [facility] - [facility] POIKILOCYTES 1+ /hpf 10/27/2024 1:50 PM CDT [facility] - . [facility] POLYCHROMASIA 1+ /hpf 10/27/2024 1:50 PM CDT [facility] - . [facility] TARGET CELLS 1+ /hpf 10/27/2024 1:50 PM CDT [facility] - . [facility] SICKLE CELLS 1+ /hpf 10/27/2024 1:50 PM CDT [facility] - . [facility] Blood Venipuncture / Unknown 10/27/2024 12:19 PM CDT 10/27/2024 12:37 PM CDT Song Long MD HEMATOLOGY ORDERABLES COM Final Result [facility]# [id number] [address] [place] [id number] * MRI SHOULDER WO CONTRAST RIGHT (10/22/2024 3:17 PM CDT) Anatomical Region Laterality Modality Upper Extremity Magnetic Resonan ce 10/22/2024 3:17 PM CDT Impressions 10/22/2024 3:37 PM CDT IMPRESSION: 1. Intact rotator cuff tendons. 2. Large area of osteonecrosis involving the proximal humerus with partial articular surface collapse again noted. 3. Areas of bone marrow edema like signal involving the scapula identified on the prior MRI have resolved in the interval. Findings are favored to relate to prior stress reactions with interval resolution. 4. Diffusely abnormal bone marrow signal involving the bones of the shoulder girdle similar when compared to the prior study. Findings are favored to relate to red marrow. Clinical correlation and follow-up is recommended. 5. Blunting and possible tear of the posterior glenoid labrum. Findings appear unchanged when compared to the prior study. 6. Motion limited evaluation. DICTATION LOCATION: [address] CPM Narrative 10/22/2024 3:37 PM CDT MRI SHOULDER WO CONTRAST RIGHT Ordering provider: LORY MADRID History: Sickle cell pain crisis (CMS/HCC). known avascular necrosis, worsening pain, progression on xray. Comparison: Shoulder radiographs dated 04/16/2024. MRI 04/19/2024 FINDINGS: Evaluation is limited by motion artifact. There is a type 2 acromion. The acromioclavicular joint appears normal. Trace subacromial-subdeltoid bursitis. The rotator cuff muscle bulk is normal. The rotator cuff tendons are intact. On this non-arthrographic examination, the long head of biceps appears intact. Blunting and possible tear of the posterior glenoid labrum. Findings appear similar when compared to the prior study. No focal glenohumeral chondrosis. Trace glenohumeral joint effusion. Large area of osteonecrosis involving the proximal humerus again noted with partial articular surface collapse of the humeral head articular surface. Areas of bone marrow edema like signal involving the scapula identified on the prior study have resolved in the interval. There is diffuse abnormal bone marrow signal involving the bones of the shoulder girdle with intermediate to hypointense T1 signal. Findings are similar when compared to the prior study Procedure Note Saeid Higgins MD - 10/22/2024 MRI SHOULDER WO CONTRAST RIGHT Ordering provider: LORY MADRID History: Sickle cell pain crisis (CMS/HCC). known avascular necrosis, worsening pain, progression on xray. Comparison: Shoulder radiographs dated 04/16/2024. MRI 04/19/2024 FINDINGS: Evaluation is limited by motion artifact. There is a type 2 acromion. The acromioclavicular joint appears normal. Trace subacromial-subdeltoid bursitis. The rotator cuff muscle bulk is normal. The rotator cuff tendons are intact. On this non-arthrographic examination, the long head of biceps appears intact. Blunting and possible tear of the posterior glenoid labrum. Findings appear similar when compared to the prior study. No focal glenohumeral chondrosis. Trace glenohumeral joint effusion. Large area of osteonecrosis involving the proximal humerus again noted with partial articular surface collapse of the humeral head articular surface. Areas of bone marrow edema like signal involving the scapula identified on the prior study have resolved in the interval. There is diffuse abnormal bone marrow signal involving the bones of the shoulder girdle with intermediate to hypointense T1 signal. Findings are similar when compared to the prior study IMPRESSION: 1. Intact rotator cuff tendons. 2. Large area of osteonecrosis involving the proximal humerus with partial articular surface collapse again noted. 3. Areas of bone marrow edema like signal involving the scapula identified on the prior MRI have resolved in the interval. Findings are favored to relate to prior stress reactions with interval resolution. 4. Diffusely abnormal bone marrow signal involving the bones of the shoulder girdle similar when compared to the prior study. Findings are favored to relate to red marrow. Clinical correlation and follow-up is recommended. 5. Blunting and possible tear of the posterior glenoid labrum. Findings appear unchanged when compared to the prior study. 6. Motion limited evaluation. DICTATION LOCATION: Location 14 [facility] CPM us Lory Madrid DO MR ORDERABLES Final Result * URINALYSIS WITH REFLEX MICROSCOPIC (10/20/2024 10:32 PM CDT) COLOR UA Yellow Pale to Dark Yellow 10/20/2024 11:02 PM T [employer] [facility] - [facility] CLARITY UA Clear Clear 10/20/2024 11:02 PM T [employer] [facility] - [facility] SPECIFIC GRAVITY UA 1.014 1.003 - 1.035 10/20/2024 11:02 PM T [employer] [facility] - [facility] PH UA 6.0 5.0 - 8.0 10/20/2024 11:02 PM T [employer] [facility] - . [facility] LEUKOCYTE ESTERASE UA Negative Negative 10/20/2024 11:02 PM CDT [employer] [facility] - . [facility] NITRITE UA Negative Negative 10/20/2024 11:02 PM T [employer] [facility] - . [facility] PROTEIN UA Negative Negative 10/20/2024 11:02 PM CDT [facility] - [facility] GLUCOSE UA Negative Negative 10/20/2024 11:02 PM CDT [facility] - . [facility] KETONES UA Negative Negative 10/20/2024 11:02 PM CDT [facility] - . [facility] UROBILINOGEN UA Normal <2.0 mg/dL 11:02 PM CDT [facility] - . [facility] BILIRUBIN UA Negative Negative 10/20/2024 11:02 PM CDT [facility] - [facility] BLOOD UA Negative Negative 10/20/2024 11:02 PM CDT [facility] - [facility] Urine URINE SPECIMEN OBTAINED BY CLEAN CATCH PROCEDURE / Unknown Collection / Unknown 10/20/2024 10:32 PM CDT 10/20/2024 10:42 PM CDT Thien Narayan MD URINE ORDERABLES Final Result [id number] [address] [place] [address] * XR CHEST PA OR AP 1 VW (10/20/2024 9:34 AM CDT) Anatomical Region Laterality Modality Chest Computed Radiogr aphy 10/20/2024 9:35 AM CDT Impressions 10/20/2024 9:41 AM CDT IMPRESSION: Improved cardiomegaly and pulmonary vascular congestion. No focal airspace opacity. No pneumothorax or effusion. Sclerotic changes in the visualized osseous structures compatible with known sickle cell disease. DICTATION LOCATION: Location 9 - [facility] Narrative 10/20/2024 9:41 AM CDT CHEST, 1 VIEW DATE: 10/20/2024 9:34 AM HISTORY: Chest Pain. Sickle cell pain crisis (CMS/HCC) COMPARISON: 09/23/2024 Procedure Note Humberto Costa MD - 10/20/2024 CHEST, 1 VIEW DATE: 10/20/2024 9:34 AM HISTORY: Chest Pain. Sickle cell pain crisis (CMS/HCC) COMPARISON: 09/23/2024 IMPRESSION: Improved cardiomegaly and pulmonary vascular congestion. No focal airspace opacity. No pneumothorax or effusion. Sclerotic changes in the visualized osseous structures compatible with known sickle cell disease. DICTATION LOCATION: Location [address] [place] [address] us Hector Rosales MD DIAGNOSTIC IMAGING ORDERABLES Final Result from Last 3 Months Insurance [facility] MEDICAID RX INFOCROSSING Medicaid RX [employer] PLANS (INTERNAL) [facility] Internal Plans Advance Directives For more information, please contact: [phone] * Full Code (Latest Code Status on File) Date Activated Date Inactivated Comments 12/23/2024 6:24 AM 12/23/2024 2:11 PM * Full Code Date Activated Date Inactivated Comments 12/09/2024 9:27 PM 12/13/2024 1:40 PM * Full Code Date Activated Date Inactivated Comments 10/20/2024 8:11 AM 10/29/2024 5:06 PM * Full Code Date Activated Date Inactivated Comments 09/24/2024 7:49 AM 09/28/2024 12:38 PM * Full Code Date Activated Date Inactivated Comments 08/31/2024 7:35 AM 09/07/2024 2:13 PM
--- OUTSIDE RECORDS SUMMARY | 2025-01-19 06:28 | XMS_ITS | Encounter Summary ---
Author Organization [facility] Healthcare Address [address] [place] [address] Care Team Providers Care Inspector Packager Name Role Phone Ray Sainz MD Unavailable [phone] Miscellaneous, Not In File Primary Care Provider Unavailable Laurent Gonzalez MD Primary Care Provider [phone] Gordo Herrera MD Unavailable [phone] Travis Richards MD Primary Care Provider [phone] Miscellaneous, Not In File Unavailable Unava ilable Daily Cooper MD Primary Care Provider [phone] Laurent Gonzalez MD Primary Care Provider [phone] Mariam Hedrick Unavailable Unavailable Ning Lowery DNP Unavailable [phone] Mariam Hedrick Unavailable Unavailable Ning Lowery DNP Unavailable [phone] Ana Duran RN Unavailable [phone] Areli Zuniga Unavailable Unavailable Ning Lowery DNP Unavailable [phone] Tobin Terrell MD Unavailable [phone] Encounter Details Date Type Department Care Team (Late st Contact Info) Description 11/22/2020 Documentation [facility] Case Management [address] [place] [address] Roula Llanos MSW Social History Tobacco Use Types Packs/Day Years Used Date Smoking Tobacco: Never Smokeless Tobacco: Never Alcohol Use Standard Drinks/Week Comments Not Currently 0 (1 standard drink = 0.6 oz pur e alcohol) Sex and Gender Information Value Date Recorded Sex Assigned at Not on file Legal 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 Roula Llanos LMSW [phone] documented in this encounter Plan of Treatment Not on file documented as of this encounter Visit Diagnoses Not on filedocumented in this encounter Additional Health Concerns Infection Onset Date Last Indicated Resolved Time COVID: Suspected 08/08/2022 08/08/2022 08/08/2022 10:37 PM CDT COVID: Suspected 08/21/2022 08/21/2022 08/21/2022 11:51 PM CDT COVID: Suspected 12/19/2022 12/19/2022 12/19/2022 8:21 AM CDT COVID: Suspected 01/29/2023 01/29/2023 01/29/2023 7:53 PM CDT COVID19 01/29/2023 01/29/2023 02/09/2023 4:56 AM CDT COVID: Recovered Comment:Added based on recent COVID infection. 02/09/2023 02/09/2023 02/09/2023 4:57 AM C DT COVID19 Comment:>10 days, no ongoing s/s, no antipyretics, immunocompetent pt. Flag removed. Talat Shay [phone] 02/09/2023 02/09/2023 02/12/2023 11 :55 AM CDT COVID: Recovered 02/12/2023 02/12/2023 05/13/2023 3:05 AM DROSOPHERE OPERATOR COVID: Suspected 04/27/2023 04/27/2023 04/27/2023 4:11 AM DROSOPHERE OPERATOR COVID: Suspected 06/26/2023 06/26/2023 06/26/2023 11:44 PM DROSOPHERE OPERATOR Diarrhea 06/26/2023 06/26/2023 07/10/2023 3:05 AM DROSOPHERE OPERATOR C. difficile suspected 08/30/2023 08/30/202308/30 2:37 PM CDT COVID: Suspected 10/08/2023 10/08/2023 10/08/2023 3:27 PM CDT COVID: Suspected 10/08/2023 10/08/2023 10/08/2023 6:12 PM CDT COVID: Suspected Comment:Negative panel 10/17/2023 10/17/2023 10/23/2023 12:21 PM CDT C. difficile suspected 10/18/2023 10/18/202310/19 10:05 PM CDT COVID: Suspected Comment:Negative test. 10/27/2023 Anival Thomas 10/26/2023 10/26/2023 10/27/2023 8:28 AM C DT COVID: Suspected 12/17/2023 12/17/2023 12/17/2023 6:30 AM CDT COVID: Suspected 01/17/2024 01/17/2024 01/17/2024 1:41 PM CDT COVID: Suspected 01/19/2024 01/19/2024 01/19/2024 6:45 AM CDT COVID: Suspected 01/24/2024 01/24/2024 01/24/2024 9:51 PM CDT C. difficile suspected 01/24/2024 01/24/202401/24 3:07 AM CDT COVID: Suspected 02/09/2024 02/09/2024 02/09/2024 11:47 PM CDT COVID: Suspected 02/25/2024 02/25/2024 02/25/2024 4:15 PM CDT COVID: Suspected 03/30/2024 03/30/2024 03/30/2024 1:29 PM DROSOPHERE OPERATOR C. difficile suspected 05/12/2024 05/14/202405/14 7:10 AM DROSOPHERE OPERATOR COVID: Suspected 05/29/2024 05/29/2024 05/29/2024 10:06 PM DROSOPHERE OPERATOR COVID: Suspected 07/24/2024 07/24/2024 07/24/2024 5:44 AM DROSOPHERE OPERATOR Norovirus suspected 07/24/2024 07/24/2024 07/30/19 3:05 AM DROSOPHERE OPERATOR C. difficile suspected 07/24/2024 07/24/202407/29 3:05 AM DROSOPHERE OPERATOR COVID: Suspected 08/13/2024 08/13/2024 08/13/2024 1:30 PM CDT COVID: Suspected 11/01/2024 11/01/2024 11/01/2024 2:39 PM CDT Ring Surveillance: C. auris 11/08/2024 11/08/2024 11/15/2024 7:26 PM CDT COVID: Suspected 12/23/2024 12/23/2024 12/23/2024 5:12 PM CDT documented as of this encounter Care Teams Inspector Packager Relationship Specialty Start Date End Date Miscellaneous, Not In File PCP - General 11/22/20 11/20/21 Laurent Gonzalez MD [address] [place] [address] PCP - General 11/21/21 08/11/22 Travis Richards MD [address] [facility] [address] [place] [address] PCP - General Pediatric Hematology and Oncology 08/12/22 12/18/22 Daily Cooper MD [address] [place] [address] PCP - General Internal Medicine 12/19/22 10/17/23 Laurent Gonzalez MD [address] [place] [address] PCP - General Hematology and Oncology 10/18/23 Ray Sainz MD [address] [facility] [address] [place] [address] 02/10/20 [place] [address] [facility] [address] [place] [address] Consulting Physician Family Medicine 05/05/22 Miscellaneous, Not In File 12/14/22 Mariam Hedrick Outpatient Night Stocker 03/31/24 04/04/24 Ning Lowery DNP [id number] [facility] [address] [place] [address] Nurse Practitioner Internal Medicine 03/31/24 04/04/24 Mariam Hedrick Outpatient Night Stocker 05/31/24 08/15/24 Ning Lowery DNP [id number] [facility] [address] [place] [address] Nurse Practitioner Internal Medicine 05/31/24 08/15/24 Ana Duran, BOUCHRA [address] [facility] [address] [place] [address] [facility] Outpatient Night Stocker 07/29/24 08/02/24 Areli Zuniga Outpatient Night Stocker 08/16/24 09/23/24 Ning Lowery DNP [id number] [facility] [address] [place] [address] Nurse Practitioner Internal Medicine 08/16/24 09/23/24 [place] [address] [facility] [address] [place] [address] Consulting Physician Orthopedic Surgery 08/18/24 documented as of this encounter
--- OUTSIDE RECORDS SUMMARY | 2025-01-19 06:28 | XMS_ITS | Clinical Summary ---
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 STAT 11/02/2024 3:30 AM CDT BLOOD CULTURE STAT 11/02/2024 3:30 AM CDT CRITICAL CARE Routine 11/01/2024 11:19 PM CDT Acute chest syndrome (HCC) LEGIONELLA ANTIGEN, URINE Routine 11/01/2024 9:28 PM CDT STREP PNEUMONIAE AG, URINE Routine 11/01/2024 9:28 PM CDT NV INSJ NON-TUNNELED CENTRAL VENOUS CATH AGE 5 YR/> Routine 11/01/2024 7:42 PM CDT Acute chest syndrome (HCC) CRITICAL CARE Routine 11/01/2024 5:30 PM CDT Acute chest syndrome (HCC) HEMOGLOBIN ANALYSIS BY ELECTROPHORESIS Routine 11/01/2024 5:26 PM CDT CRP (ACUTE PHASE) Add-On 11/01/2024 5:2 6 PM CDT PREPARE RBC STAT 11/01/2024 4:06 PM CDT XR CHEST 1 VIEW ED Urgent/IP Urgent 11/01/2024 3:41 PM CDT XR CHEST 1 VIEW ED Urgent/IP Urgent 11/01/2024 1:41 PM CDT PREPARE RBC Routine 11/01/2024 1:19 PM CDT EGFR STAT 11/01/2024 1:19 PM CDT TYPE AND SCREEN Timed 11/01/2024 1:19 PM CDT CBC WITHOUT DIFFERENTIAL STAT 11/01/2024 1:19 PM CDT LACTATE STAT 11/01/2024 1:19 PM CDT CALCIUM,IONIZED, WHOLE BLOOD STAT 11/01/2024 1:19 PM CDT PHOSPHORUS STAT 11/01/2024 1:19 PM CDT MAGNESIUM STAT 11/01/2024 1:19 PM CDT COMPREHENSIVE METABOLIC PANEL STAT 11/01/2024 1:19 PM CDT MRSA ONLY (STAPHYLOCOCCUS AUREUS) PCR STAT 11/01/2024 1:19 PM CDT RESPIRATORY PATHOGEN PANEL Routine 11/01/2024 1:19 PM CDT CRITICAL CARE Routine 11/01/2024 12:56 PM CDT HEPATITIS C ANTIBODY Routine 08/29/2023 9:51 PM CDT from Last 3 Months or Most Recently Relevant to Health Maintenance Results * eGFR (01/18/2025 6:14 AM CDT) eGFR >90 >=60 mL/min/1. 73 [...] was last reviewed 2021. Testing performed by: [facility], [address] [place] [address]., [address] Blood 01/18/2025 6:14 AM CDT 01/18/2025 6:34 AM CDT us Rasta Garcia MD LAB BLOOD ORDERABLES Final Res ult [facility] [address] [facility] Department [place] [address] * (ABNORMAL) Differential, auto (01/18/2025 6:14 AM CDT) [facility] Neutrophil abs 5.66 1.50 - 6.50 K/cumm Comment:Testing performed by : [address] [address] Imm gran abs 0.06 0.00 - 0.10 K/cumm [facility] Comment:Testing performed by : [address], [place]., [address] Lymphocyte abs 4.21(H) 0.80 - 3.30 K/cumm [facility] Comment:Testing performed by : [address], [place]., [address] Monocyte abs 1.53(H) 0.20 - 0.80 K/cumm [facility] Comment:Testing performed by : [address], [place]., [address] Eosinophil abs 0.32 0.00 - 0.50 K/cumm [facility] Comment:Testing performed by : [address] [address] Basophil abs 0.06 0.00 - 0.10 K/cumm [facility] Comment:Testing performed by : [address] [address] Neutrophil pct 47.8 % [facility] Comment: Interpretive Data Percent cell count reference ranges are not reported, since discordance with absolute values may lead to misinterpretation of CBC data. Current Interpretive Data was last revised on 2017. Testing performed by: [address] [address] Imm gran pct 0.5 % [facility] Comment: Interpretive Data Percent cell count reference ranges are not reported, since discordance with absolute values may lead to misinterpretation of CBC data. Current Interpretive Data was last revised on 2017. Testing performed by: [address] [address] Lymphocyte pct 35.6 % [facility] Comment: Interpretive Data Percent cell count reference ranges are not reported, since discordance with absolute values may lead to misinterpretation of CBC data. Current Interpretive Data was last revised on 2017. Testing performed by: [address] [address] Monocyte pct 12.9 % [facility] Comment: Interpretive Data Percent cell count reference ranges are not reported, since discordance with absolute values may lead to misinterpretation of CBC data. Current Interpretive Data was last revised on 2017. Testing performed by: [address] [address] Eosinophil pct 2.7 % [facility] Comment: Interpretive Data Percent cell count reference ranges are not reported, since discordance with absolute values may lead to misinterpretation of CBC data. Current Interpretive Data was last revised on 2017. Testing performed by: [address] [address] Basophil pct 0.5 % [facility] Comment: Interpretive Data Percent cell count reference ranges are not reported, since discordance with absolute values may lead to misinterpretation of CBC data. Current Interpretive Data was last revised on 2017. Testing performed by: [address] [address] Blood 01/18/2025 6:14 AM CDT 01/18/2025 6:34 AM CDT us Rasta Garcia MD LAB BLOOD ORDERABLES Final Res ult [facility] [address] [facility] Department [place] [address] * (ABNORMAL) CBC with auto differential (01/18/2025 6:14 AM CDT) WBC 11.84(H) 3.80 - 9.90 K/cumm Comment:Testing performed by : [address] [address] Hgb 8.3(L) 13.0 - 17.5 g/dL [facility] Comment:Testing performed by : [address] [address] Hct 24.3(L) 38.9 - 50.3 % [facility] Comment:Testing performed by : [address] [address] Plt 302 150 - 400 K/cumm [facility] Comment:Testing performed by : [address] [address] MPV 9.9 9.1 - 12.3 fL [facility] Comment:Testing performed by : [address] [address] RBC 2.79(L) 4.30 - 5.80 M/cumm [facility] Comment:Testing performed by : [address], [address] MCV 87.1 81.3 - 96.4 fL [facility] Comment:Testing performed by : [address] [address] MCH 29.7 27.1 - 33.3 pg [facility] Comment:Testing performed by : [address] [address] MCHC 34.2 32.3 - 35.7 g/dL [facility] Comment:Testing performed by : [address], [address] RDW CV 21.2(H) 11.1 - 14.9 % [facility] Comment:Testing performed by : [address], [address] RDW SD 66.2(H) 35.7 - 48.1 fL [facility] Comment:Testing performed by : [address] [address] NRBC abs 0.05(H) 0.00 - 0.01 K/cumm [facility] Comment:Testing performed by : [address], [address] Morphologic Screen Results confirmed by manual morphology review. [facility] Comment:Testing performed by : [address] [address] Blood 01/18/2025 6:14 AM CDT 01/18/2025 6:34 AM CDT us Rasta Garcia MD LAB BLOOD ORDERABLES Edited Re sult - Final [facility] [address] [place] [address] Department [place] [address] * (ABNORMAL) Reticulocyte Count (01/18/2025 6:14 AM CDT) [facility] Retics, absolute 362(H) 20 - 87 K/cumm Comment:Testing performed by : [address] [address] Retics 12.5(H) 0.4 - 2.9 % [facility] Comment:Testing performed by : [address] [address] Reticulocyte Hgb 31.6 30.5 - 38.0 pg [facility] Comment:Testing performed by : [address] [address] Blood 01/18/2025 6:14 AM CDT 01/18/2025 6:34 AM CDT us Rasta Garcia MD LAB BLOOD ORDERABLES Final Res ult [facility] [address] Department [place] [address] * (ABNORMAL) Basic metabolic panel (01/18/2025 6:14 AM CDT) [facility] Sodium 138 135 - 145 mmol/L Comment:Testing performed by : [address] [address] Potassium, pl 3.3 3.3 - 4.9 mmol/L [facility] Comment:Testing performed by : [address] [address] Chloride 101 97 - 110 mmol/L [facility] Comment:Testing performed by : [address] [address] CO2 25 22 - 32 mmol/L [facility] Comment:Testing performed by : [address] [address] Anion gap 12 2 - 15 mmol/L [facility] Comment:Testing performed by : [address] [address] BUN 4(L) 6 - 25 mg/dL [facility] Comment:Testing performed by : [address] [address] Creatinine 0.61(L) 0.80 - 1.30 mg/dL [facility] Comment:Testing performed by : [address] [address] Glucose 105 70 - 199 mg/dL [facility] [...] was last revised 2022. Testing performed by: [address] [address] Calcium 9.1 8.5 - 10.3 mg/dL [facility] Comment:Testing performed by : [address] [address] Blood 01/18/2025 6:14 AM CDT 01/18/2025 6:34 AM CDT us Rasta Garcia MD LAB BLOOD ORDERABLES Final Res ult [facility] [address] [facility] Department [place] [address] * eGFR (01/17/2025 6:04 AM CDT) eGFR [...] was last reviewed 2021. Testing performed by: [address] [address] Blood 01/17/2025 6:04 AM CDT 01/17/2025 6:35 AM CDT us Rasta Garcia MD LAB BLOOD ORDERABLES Final Res ult [facility] [address] [facility] Department of Laboratories [place], [place] [id number] * (ABNORMAL) Differential, auto (01/17/2025 6:04 AM CDT) Neutrophil abs 4.97 1.50 - 6.50 K/cumm Comment:Testing performed by : [address] [address] Imm gran abs 0.04 0.00 - 0.10 K/cumm [facility] Comment:Testing performed by : [address] [address] Lymphocyte abs 3.73(H) 0.80 - 3.30 K/cumm [facility] Comment:Testing performed by : [address] [address] Monocyte abs 1.04(H) 0.20 - 0.80 K/cumm [facility] Comment:Testing performed by : [address] [address] Eosinophil abs 0.35 0.00 - 0.50 K/cumm [facility] Comment:Testing performed by : [address] [address] Basophil abs 0.06 0.00 - 0.10 K/cumm [facility] Comment:Testing performed by : [address] [address] Neutrophil pct 48.8 % [facility] Comment: Interpretive Data Percent cell count reference ranges are not reported, since discordance with absolute values may lead to misinterpretation of CBC data. Current Interpretive Data was last revised on 2017. Testing performed by: [address] [address] Imm gran pct 0.4 % [facility] Comment: Interpretive Data Percent cell count reference ranges are not reported, since discordance with absolute values may lead to misinterpretation of CBC data. Current Interpretive Data was last revised on 2017. Testing performed by: [address] [address] Lymphocyte pct 36.6 % [facility] Comment: Interpretive Data Percent cell count reference ranges are not reported, since discordance with absolute values may lead to misinterpretation of CBC data. Current Interpretive Data was last revised on 2017. Testing performed by: [address] [address] Monocyte pct 10.2 % [facility] Comment: Interpretive Data Percent cell count reference ranges are not reported, since discordance with absolute values may lead to misinterpretation of CBC data. Current Interpretive Data was last revised on 2017. Testing performed by: [address] [address] Eosinophil pct 3.4 % [facility] Comment: Interpretive Data Percent cell count reference ranges are not reported, since discordance with absolute values may lead to misinterpretation of CBC data. Current Interpretive Data was last revised on 2017. Testing performed by: [address] [address] Basophil pct 0.6 % [facility] Comment: Interpretive Data Percent cell count reference ranges are not reported, since discordance with absolute values may lead to misinterpretation of CBC data. Current Interpretive Data was last revised on 2017. Testing performed by: [address] [address] Blood 01/17/2025 6:04 AM CDT 01/17/2025 6:35 AM CDT us Rasta Garcia MD LAB BLOOD ORDERABLES Final Res ult [facility] [address] [facility] Department [place] [address] * (ABNORMAL) CBC with auto differential (01/17/2025 6:04 AM CDT) WBC 10.19(H) 3.80 - 9.90 K/cumm Comment:Testing performed by : [address] [address] Hgb 8.3(L) 13.0 - 17.5 g/dL [facility] Comment:Testing performed by : [address] [address] Hct 24.0(L) 38.9 - 50.3 % [facility] Comment:Testing performed by : [address] [address] Plt 329 150 - 400 K/cumm [facility] Comment:Testing performed by : [address] [address] MPV 10.6 9.1 - 12.3 fL [facility] Comment:Testing performed by : [address] [address] RBC 2.77(L) 4.30 - 5.80 M/cumm [facility] Comment:Testing performed by : [address] [address] MCV 86.6 81.3 - 96.4 fL [facility] Comment:Testing performed by : [address] [address] MCH 30.0 27.1 - 33.3 pg [facility] Comment:Testing performed by : [address] [address] MCHC 34.6 32.3 - 35.7 g/dL [facility] Comment:Testing performed by : [address] [address] RDW CV 21.2(H) 11.1 - 14.9 % [facility] Comment:Testing performed by : [address] [address] RDW SD 66.2(H) 35.7 - 48.1 fL [facility] Comment:Testing performed by : [address] [address] NRBC abs 0.06(H) 0.00 - 0.01 K/cumm [facility] Comment:Testing performed by : [address] [address] Morphologic Screen Results confirmed by manual morphology review. [facility] Comment:Testing performed by : [address], [address] Blood 01/17/2025 6:04 AM CDT 01/17/2025 6:35 AM CDT us Rasta Garcia MD LAB BLOOD ORDERABLES Edited Re sult - Final [facility] Department [place] [address] * (ABNORMAL) Reticulocyte Count (01/17/2025 6:04 AM CDT) Pathologist [facility] Retics, absolute 468(H) 20 - 87 K/cumm Comment:Testing performed by : [address] [address] Retics 15.7(H) 0.4 - 2.9 % [facility] Comment:Testing performed by : [address] [address] Reticulocyte Hgb 30.0(L) 30.5 - 38.0 pg [facility] Comment:Testing performed by : [address] [address] Blood 01/17/2025 6:04 AM CDT 01/17/2025 6:35 AM CDT us Rasta Garcia MD LAB BLOOD ORDERABLES Final Res ult [facility] [address] [facility] Department [place] [address] * (ABNORMAL) Basic metabolic panel (01/17/2025 6:04 AM CDT) Sodium 137 135 - 145 mmol/L Comment:Testing performed by : [address] [address] Potassium, pl 3.1(L) 3.3 - 4.9 mmol/L [facility] Comment:Testing performed by : [address] [address] Chloride 101 97 - 110 mmol/L [facility] Comment:Testing performed by : [address] [address] CO2 24 22 - 32 mmol/L [facility] Comment:Testing performed by : [address] [address] Anion gap 12 2 - 15 mmol/L [facility] Comment:Testing performed by : [address] [address] BUN 3(L) 6 - 25 mg/dL [facility] Comment:Testing performed by : [address] [address] Creatinine 0.50(L) 0.80 - 1.30 mg/dL [facility] Comment:Testing performed by : [address] [address] Glucose 125 70 - 199 mg/dL [facility] [...] was last revised 2022. Testing performed by: [address] [address] Calcium 8.9 8.5 - 10.3 mg/dL [facility] Comment:Testing performed by : [address] [address] Blood 01/17/2025 6:04 AM CDT 01/17/2025 6:35 AM CDT us Rasta Garcia MD LAB BLOOD ORDERABLES Final Res ult Performing Organization Address City/[facility]/ZIP Co de Phone Number [facility] [address] [facility] [place] [address] * Troponin T high-sensitivity 4-hour (01/16/2025 6:37 PM CDT) Trop T hs 13 <=22 ng/L Comment: Interpretive Data For further hscTnT resources including the diagnostic algorithm and an aid in interpretation, copy and paste this link: https://nrl.testcatalog.org/show/hsTrop Current Interpretive Data last revised 2020. Testing performed by: [address] [address] Trop T hs delta 7 ng/L [facility] Comment:Testing performed by : [address] [address] Trop T hs interp Equivocal [facility] Comment:Testing performed by : [address] [address] Blood 01/16/2025 6:37 PM CDT 01/16/2025 6:48 PM CDT Casey Paz MD LAB BLOOD ORDERABLES Final Result Performing Organization Address City/[facility]/ZIP Co de Phone Number [facility] [address] [facility] [place] [address] * Troponin T high-sensitivity 2-hour (01/16/2025 5:09 PM CDT) Trop T hs <6 <=22 ng/L Comment: Interpretive Data For further hscTnT resources including the diagnostic algorithm and an aid in interpretation, copy and paste this link: https://nrl.testcatalog.org/show/hsTrop Current Interpretive Data last revised 2020. Testing performed by: [facility], [address] [place] [address]., [address] Trop T hs delta 0 ng/L [facility] Comment:Testing performed by : [address] [address] Trop T hs interp Insignificant [facility] Comment:Testing performed by : [address] [address] Blood 01/16/2025 5:09 PM CDT 01/16/2025 5:15 PM CDT Casey Paz MD LAB BLOOD ORDERABLES Final Result Performing Organization Address City/[facility]/ZIP Co de Phone Number [address] [place] [place] [address] * Post-Transfusion Reaction ABO/Rh (01/16/2025 3:58 PM CDT) ABO/Rh Post-Transfusi on Reaction A Positive Comment:Testing performed by : [address] [address] Blood 01/16/2025 3:58 PM CDT 01/16/2025 3:59 PM CDT Casey Paz MD LAB BLOOD BANK TEST ORDERA BLES Final Result [address] [employer] [place] [address] * Pre-Transfusion Reaction ABO/Rh (01/16/2025 3:58 PM CDT) ABO/Rh Pre-Transfusio n Reaction A Positive Comment:Testing performed by : [address] [address] Blood 01/16/2025 3:58 PM CDT 01/16/2025 3:59 PM CDT us Casey Paz MD LAB BLOOD BANK TEST ORDERA BLES Final Result Performing Organization Address City/[facility]/ZIP Co de Phone Number [facility] [address] [employer] [place] [address] * Post TRXN SAMY (01/16/2025 3:58 PM CDT) Yesenia, direct, post-transfusi on Negative Comment:Testing performed by : [address] [address] Blood 01/16/2025 3:58 PM CDT 01/16/2025 3:59 PM CDT us Casey Paz MD LAB BLOOD BANK TEST ORDERA BLES Final Result Performing Organization Address [facility] de Phone Number KEN[facility]ETTA[address] [employer] [place] [address] * Pre TRXN SAMY (01/16/2025 3:58 PM CDT) Direct yesenia pre-transfusio n reaction Negative Comment:Testing performed by : [address] [address] Blood 01/16/2025 3:58 PM CDT 01/16/2025 3:59 PM CDT us Casey Paz MD LAB BLOOD BANK TEST ORDERA BLES Final Result Performing Organization Address City/[facility] Co de Phone Number [facility] [address] [employer] [place] [place] [address] * ECG 12 lead (01/16/2025 2:47 PM CDT) Ventricular Rate EKG/Min 79 BPM [facility] Atrial Rate [address] [facility] NV-Interval (MSEC) 190 ms [facility] QRS-Interval (MSEC) 80 ms [facility] QT-Interval (MSEC) 410 ms [facility] QTc 470 ms [facility] P Vantage 48 degrees [facility] R Vantage 22 degrees [facility] T Vantage -16 degrees [facility] Diagnosis Normal sinus rhythm Nonspecific T wave abnormality Abnormal ECG When compared with ECG of 31-DEC-2024 23:51, Nonspecific T wave abnormality now evident in Anterolateral leads Confirmed by MIRYAM GARCÍA M.D. ([id number]) on 01/16/2025 6:28:08 PM [facility] 01/16/2025 2:47 PM CDT 01/16/2025 6:28 PM CDT Casey Paz MD ECG ORDERABLES Final Resu lt Performing Organization Address City/[facility]/ZIP Co de Phone Number [facility] * Troponin T high-sensitivity series (baseline, 2hr, 4hr, 6hr) (01/16/2025 2:40 PM CDT) Pathologist [facility] Trop T hs <6 <=22 ng/L Comment: Interpretive Data For further hscTnT resources including the diagnostic algorithm and an aid in interpretation, copy and paste this link: https://nrl.testcatalog.org/show/hsTrop Current Interpretive Data last revised 2020. Testing performed by: [address] [address] Blood 01/16/2025 2:40 PM CDT 01/16/2025 2:55 PM CDT Casey Paz MD LAB BLOOD ORDERABLES Final Result [facility] Department [place] [address] * (ABNORMAL) Differential, auto (01/16/2025 2:40 PM CDT) Pathologist [facility] Neutrophil abs 5.04 1.50 - 6.50 K/cumm Comment:Testing performed by : [address] [address] Imm gran abs 0.05 0.00 - 0.10 K/cumm [facility] Comment:Testing performed by : [address] [address] Lymphocyte abs 2.46 0.80 - 3.30 K/cumm [facility] Comment:Testing performed by : [address], [place]., [address] Monocyte abs 0.91(H) 0.20 - 0.80 K/cumm [facility] Comment:Testing performed by : [address], [place]., [address] Eosinophil abs 0.41 0.00 - 0.50 K/cumm [facility] Comment:Testing performed by : [address] [address] Basophil abs 0.04 0.00 - 0.10 K/cumm [facility] Comment:Testing performed by : [address] [address] Neutrophil pct 56.6 % [facility] Comment: Interpretive Data Percent cell count reference ranges are not reported, since discordance with absolute values may lead to misinterpretation of CBC data. Current Interpretive Data was last revised on 2017. Testing performed by: [address] [address] Imm gran pct 0.6 % [facility] Comment: Interpretive Data Percent cell count reference ranges are not reported, since discordance with absolute values may lead to misinterpretation of CBC data. Current Interpretive Data was last revised on 2017. Testing performed by: [address] [address] Lymphocyte pct 27.6 % [facility] Comment: Interpretive Data Percent cell count reference ranges are not reported, since discordance with absolute values may lead to misinterpretation of CBC data. Current Interpretive Data was last revised on 2017. Testing performed by: [address] [address] Monocyte pct 10.2 % [facility] Comment: Interpretive Data Percent cell count reference ranges are not reported, since discordance with absolute values may lead to misinterpretation of CBC data. Current Interpretive Data was last revised on 2017. Testing performed by: [address] [address] Eosinophil pct 4.6 % [facility] Comment: Interpretive Data Percent cell count reference ranges are not reported, since discordance with absolute values may lead to misinterpretation of CBC data. Current Interpretive Data was last revised on 2017. Testing performed by: [address] [address] Basophil pct 0.4 % [facility] Comment: Interpretive Data Percent cell count reference ranges are not reported, since discordance with absolute values may lead to misinterpretation of CBC data. Current Interpretive Data was last revised on 2017. Testing performed by: [address] [address] Blood 01/16/2025 2:40 PM CDT 01/16/2025 2:55 PM CDT Casey Paz MD LAB BLOOD ORDERABLES Final Result [facility] Department [place] [address] * (ABNORMAL) CBC with auto differential (01/16/2025 2:40 PM CDT) WBC 8.91 3.80 - 9.90 K/cumm Comment:Testing performed by : [address] [address] Hgb 8.3(L) 13.0 - 17.5 g/dL [facility] Comment:Testing performed by : [address] [address] Hct 24.2(L) 38.9 - 50.3 % [facility] Comment:Testing performed by : [address] [address] Plt 316 150 - 400 K/cumm [facility] Comment:Testing performed by : [address] [address] MPV 10.1 9.1 - 12.3 fL [facility] Comment:Testing performed by : [address] [address] RBC 2.80(L) 4.30 - 5.80 M/cumm [facility] Comment:Testing performed by : [address] [address] MCV 86.4 81.3 - 96.4 fL [facility] Comment:Testing performed by : [address] [address] MCH 29.6 27.1 - 33.3 pg [facility] Comment:Testing performed by : [address] [address] MCHC 34.3 32.3 - 35.7 g/dL [facility] Comment:Testing performed by : [address] [address] RDW CV 21.2(H) 11.1 - 14.9 % [facility] Comment:Testing performed by : [address], [address] RDW SD 66.2(H) 35.7 - 48.1 fL [facility] Comment:Testing performed by : [address] [id number] NRBC abs 0.07(H) 0.00 - 0.01 K/cumm [facility] SHETTY Comment:Testing performed by : [address] [address] Morphologic Screen Results confirmed by manual morphology review. [facility] Comment:Testing performed by : [address] [address] Blood 01/16/2025 2:40 PM CDT 01/16/2025 2:55 PM CDT us Casey Paz MD LAB BLOOD ORDERABLES Final Result [facility] SHETTY 8[address] [facility] Department of Laboratories [place], [place] [id number] * XR Chest 1 View (01/16/2025 2:20 [...] Bradley Rushing M.D. MF: CALDERON Report ID: [id number] Reading Location: [id number] Procedure Note Bradley Rushing, DO - 01/16/2025 [...] Bradley Rushing M.D. MF: CALDERON Report ID: [id number] Reading Location: [id number] us Casey Paz MD IMG XR PROCEDURES Final Re sult * Transfuse RBC (01/16/2025 2:09 PM CDT) Blood us Casey Paz MD BLOOD TRANSFUSION ORDERABL ES Final Result [place] [id number] [facility] [place] [employer] [place] [address] * Prepare RBC: 1 Units (01/16/2025 11:30 AM CDT) Units requested 1 Comment:Testing performed by : [address], [address] Units requested Ready [facility] Comment:Testing performed by : [address] [address] Unit Number [id number] Product code [id number] [facility] Blood Expiration Date [id number] [facility] Product Blood Type (for scanning) 6[address] [facility] Product Blood Type APOS [place] Dispense Status DISPENSED [facility] Blood 01/16/2025 11:3 0 AM CDT 01/16/2025 11:29 AM CDT Casey Paz MD BLOOD BANK PRODUCT ORDERAB LES Final Result Performing Organization Address [facility] Co de Phone Number [place]YET[address] [place] [address] * ABO/Rh (01/16/2025 10:42 AM CDT) Pathologist [facility] ABO/Rh A Positive Comment:Testing performed by : [address], [address] Blood 01/16/2025 10:4 2 AM CDT 01/16/2025 10:47 AM CDT Narrative [facility] - 01/16/2025 11:25 AM CDT Has the patient had Daratumumab or Isatuximab in the past 6 months?->Unknown Casey Paz MD LAB BLOOD BANK TEST ORDERA BLES Final Result Performing Organization Address City/[facility]/ZIP Co de Phone Number [facility] [address] [facility] [place] [address] * Crossmatch (01/16/2025 10:42 AM CDT) Pathologist [facility] Crossmatch Compatible [facility] Unit number for crossmatch [id number] [facility] Crossmatch Compatible [facility] Unit number for crossmatch [id number] [facility] Blood 01/16/2025 10:4 2 AM CDT 01/16/2025 10:47 AM CDT Casey Paz MD LAB BLOOD BANK TEST ORDERA BLES Final Result Performing Organization Address [facility]/ZIP Co de Phone Number [address] [employer] [place] [address] * Antibody screen (01/16/2025 10:42 AM CDT) Pathologist [facility] Yesenia, indirect, Gel Interpretation Negative ABSC Comment:Testing performed by : [facility], [address] [place] [address]., [address] Blood 01/16/2025 10:4 2 AM CDT 01/16/2025 10:47 AM CDT Narrative [facility] - 01/16/2025 11:25 AM CDT Has the patient had Daratumumab or Isatuximab in the past 6 months?->Unknown Casey Paz MD LAB BLOOD BANK TEST ORDERA BLES Final Result Performing Organization Address [facility] Co de Phone Number [address] [place] [employer] [place] [address] * eGFR (01/16/2025 2:59 AM CDT) [facility] eGFR >90 >=60 mL/min/1. 73 m2 [...] was last reviewed 2021. Testing performed by: [address] [address] Blood 01/16/2025 2:59 AM CDT 01/16/2025 3:12 AM CDT us Rasta Garcia MD LAB BLOOD ORDERABLES Final Res ult [facility] Department [place] [address] * (ABNORMAL) Differential, auto (01/16/2025 2:59 AM CDT) Neutrophil abs 4.31 1.50 - 6.50 K/cumm Comment:Testing performed by : [address] [address] Imm gran abs 0.03 0.00 - 0.10 K/cumm [facility] Comment:Testing performed by : [address] [address] Lymphocyte abs 3.04 0.80 - 3.30 K/cumm [facility] Comment:Testing performed by : [address] [address] Monocyte abs 0.81(H) 0.20 - 0.80 K/cumm [facility] Comment:Testing performed by : [address] [address] Eosinophil abs 0.38 0.00 - 0.50 K/cumm [facility] Comment:Testing performed by : [address] [address] Basophil abs 0.04 0.00 - 0.10 K/cumm [facility] Comment:Testing performed by : [address] [address] Neutrophil pct 50.1 % [facility] Comment: Interpretive Data Percent cell count reference ranges are not reported, since discordance with absolute values may lead to misinterpretation of CBC data. Current Interpretive Data was last revised on 2017. Testing performed by: [address] [address] Imm gran pct 0.3 % [facility] Comment: Interpretive Data Percent cell count reference ranges are not reported, since discordance with absolute values may lead to misinterpretation of CBC data. Current Interpretive Data was last revised on 2017. Testing performed by: [address] [address] Lymphocyte pct 35.3 % [facility] Comment: Interpretive Data Percent cell count reference ranges are not reported, since discordance with absolute values may lead to misinterpretation of CBC data. Current Interpretive Data was last revised on 2017. Testing performed by: [address] [address] Monocyte pct 9.4 % [facility] Comment: Interpretive Data Percent cell count reference ranges are not reported, since discordance with absolute values may lead to misinterpretation of CBC data. Current Interpretive Data was last revised on 2017. Testing performed by: [address] [address] Eosinophil pct 4.4 % [facility] Comment: Interpretive Data Percent cell count reference ranges are not reported, since discordance with absolute values may lead to misinterpretation of CBC data. Current Interpretive Data was last revised on 2017. Testing performed by: [address] [address] Basophil pct 0.5 % [facility] Comment: Interpretive Data Percent cell count reference ranges are not reported, since discordance with absolute values may lead to misinterpretation of CBC data. Current Interpretive Data was last revised on 2017. Testing performed by: [address] [address] Blood 01/16/2025 2:59 AM CDT 01/16/2025 3:13 AM CDT us Rasta Garcia MD LAB BLOOD ORDERABLES Final Res ult [facility] 8725 [facility] Department [place] [address] * (ABNORMAL) CBC with auto differential (01/16/2025 2:59 AM CDT) WBC 8.61 3.80 - 9.90 K/cumm Comment:Testing performed by : [address] [address] Hgb 7.0(L) 13.0 - 17.5 g/dL [facility] Comment:Testing performed by : [address] [address] Hct 19.8(L) 38.9 - 50.3 % [facility] Comment:Testing performed by : [address] [address] Plt 276 150 - 400 K/cumm [facility] Comment:Testing performed by : [address] [address] MPV 10.1 9.1 - 12.3 fL [facility] Comment:Testing performed by : [address] [address] RBC 2.31(L) 4.30 - 5.80 M/cumm [facility] Comment:Testing performed by : [address] [address] MCV 85.7 81.3 - 96.4 fL [facility] Comment:Testing performed by : [address] [address] MCH 30.3 27.1 - 33.3 pg [facility] Comment:Testing performed by : [address] [address] MCHC 35.4 32.3 - 35.7 g/dL [facility] Comment:Testing performed by : [address] [address] RDW CV 21.6(H) 11.1 - 14.9 % [facility] Comment:Testing performed by : [address] [address] RDW SD 65.4(H) 35.7 - 48.1 fL [facility] Comment:Testing performed by : [address] [address] NRBC abs 0.07(H) 0.00 - 0.01 K/cumm [facility] Comment:Testing performed by : [address] [address] Morphologic Screen Results confirmed by manual morphology review. [facility] Comment:Testing performed by : [address], [address] Blood 01/16/2025 2:59 AM CDT 01/16/2025 3:13 AM CDT us Rasta Garcia MD LAB BLOOD ORDERABLES Final Res ult Performing Organization Address [facility] de Phone Number [facility] 4502 [facility] Department of Laboratories [place], [place] [id number] * (ABNORMAL) Reticulocyte Count (01/16/2025 2:59 AM CDT) Retics, absolute 431(H) 20 - 87 K/cumm Comment:Testing performed by : [address] [address] Retics 18.7(H) 0.4 - 2.9 % [facility] Comment:Testing performed by : [address] [address] Reticulocyte Hgb 28.0(L) 30.5 - 38.0 pg [facility] Comment:Testing performed by : [address] [address] Blood 01/16/2025 2:59 AM CDT 01/16/2025 3:13 AM CDT us Rasta Garcia MD LAB BLOOD ORDERABLES Final Res ult Performing Organization Address [facility]/ZIP Co de Phone Number [facility] 4001 [facility] Department [place] [address] * (ABNORMAL) Basic metabolic panel (01/16/2025 2:59 AM CDT) Sodium 138 135 - 145 mmol/L Comment:Testing performed by : [address] [address] Potassium, pl 3.2(L) 3.3 - 4.9 mmol/L [facility] Comment:Testing performed by : [address] [address] Chloride 103 97 - 110 mmol/L [facility] Comment:Testing performed by : [address] [address] CO2 25 22 - 32 mmol/L [facility] Comment:Testing performed by : [address] [address] Anion gap 10 2 - 15 mmol/L [facility] Comment:Testing performed by : [address] [address] BUN 3(L) 6 - 25 mg/dL [facility] Comment:Testing performed by : [address] [address] Creatinine 0.49(L) 0.80 - 1.30 mg/dL [facility] Comment:Testing performed by : [address] [address] Glucose 154 70 - 199 mg/dL [facility] [...] was last revised 2022. Testing performed by: [address] [address] Calcium 8.7 8.5 - 10.3 mg/dL [facility] Comment:Testing performed by : [address] [address] Blood 01/16/2025 2:59 AM CDT 01/16/2025 3:12 AM CDT us Rasta Garcia MD LAB BLOOD ORDERABLES Final Res ult [facility] 6310 [facility] Department [place] [address] * (ABNORMAL) Blood smear review (01/15/2025 5:38 AM CDT) RBC morphology Present(A) Comment:Testing performed by : [address], [place]., [address] Hypochromasia 3-7/HPF(A) [facility] Comment:Testing performed by : [address] [address] Anisocytosis Moderate(A) [facility] Comment:Testing performed by : [address], [place]., [address] Schistocytes 1-2/HPF(A) [facility] Comment:Testing performed by : [address], [place]., [address] Sickle cells 1-2/HPF(A) [facility] Comment:Testing performed by : [address] [address] Elliptocytes 8-15/HPF(A) [facility] Comment:Testing performed by : [address], [place]., [address] Target cells 3-7/HPF(A) [facility] Comment:Testing performed by : [address] [address] Acanthocytes 3-7/HPF(A) [facility] Comment:Testing performed by : [address], [place]., [address] Platelet estimate Adequate [facility] Comment:Testing performed by : [address], [place]., [address] Blood 01/15/2025 5:38 AM CDT 01/15/2025 6:12 AM CDT us Rasta Garcia MD LAB BLOOD ORDERABLES Final Res ult Performing Organization Address [facility] Co de Phone Number [facility] [address] [place] [address] * eGFR (01/15/2025 5:38 AM CDT) eGFR [...] was last reviewed 2021. Testing performed by: [facility], [address] [place] [address]., [address] Blood 01/15/2025 5:38 AM CDT 01/15/2025 6:12 AM CDT us Rasta Garcia MD LAB BLOOD ORDERABLES Final Res ult [facility] [address] Department [place] [address] * (ABNORMAL) Differential, auto (01/15/2025 5:38 AM CDT) Neutrophil abs 3.92 1.50 - 6.50 K/cumm Comment:Testing performed by : [address], [place]., [address] Imm gran abs 0.07 0.00 - 0.10 K/cumm [facility] Comment:Testing performed by : [facility], [address] [place] [address], [place]., [address] Lymphocyte abs 3.68(H) 0.80 - 3.30 K/cumm [facility] Comment:Testing performed by : [address], [place]., [address] Monocyte abs 0.80 0.20 - 0.80 K/cumm [facility] Comment:Testing performed by : [address], [place]., [address] Eosinophil abs 0.40 0.00 - 0.50 K/cumm [facility] Comment:Testing performed by : [address], [place]., [address] Basophil abs 0.04 0.00 - 0.10 K/cumm [facility] Comment:Testing performed by : [address] [address] Neutrophil pct 44.0 % [facility] Comment: Interpretive Data Percent cell count reference ranges are not reported, since discordance with absolute values may lead to misinterpretation of CBC data. Current Interpretive Data was last revised on 2017. Testing performed by: [address] [address] Imm gran pct 0.8 % [facility] Comment: Interpretive Data Percent cell count reference ranges are not reported, since discordance with absolute values may lead to misinterpretation of CBC data. Current Interpretive Data was last revised on 2017. Testing performed by: [address] [address] Lymphocyte pct 41.3 % CERNER Comment: Interpretive Data Percent cell count reference ranges are not reported, since discordance with absolute values may lead to misinterpretation of CBC data. Current Interpretive Data was last revised on 2017. Testing performed by: [address] [address] Monocyte pct 9.0 % CERNER Comment: Interpretive Data Percent cell count reference ranges are not reported, since discordance with absolute values may lead to misinterpretation of CBC data. Current Interpretive Data was last revised on 2017. Testing performed by: [address] [address] Eosinophil pct 4.5 % [facility] Comment: Interpretive Data Percent cell count reference ranges are not reported, since discordance with absolute values may lead to misinterpretation of CBC data. Current Interpretive Data was last revised on 2017. Testing performed by: [address] [address] Basophil pct 0.4 % [facility] Comment: Interpretive Data Percent cell count reference ranges are not reported, since discordance with absolute values may lead to misinterpretation of CBC data. Current Interpretive Data was last revised on 2017. Testing performed by: [address] [address] Blood 01/15/2025 5:38 AM CDT 01/15/2025 6:12 AM CDT us Rasta Garcia MD LAB BLOOD ORDERABLES Final Res ult [facility] 16[address] [facility] Department [place] [address] * (ABNORMAL) CBC with auto differential (01/15/2025 5:38 AM CDT) WBC 8.91 3.80 - 9.90 K/cumm Comment:Testing performed by : [address] [address] Hgb 7.3(L) 13.0 - 17.5 g/dL [facility] Comment:Testing performed by : [address] [address] Hct 21.4(L) 38.9 - 50.3 % [facility] Comment:Testing performed by : [address] [address] Plt 316 150 - 400 K/cumm [facility] Comment:Testing performed by : [address] [address] MPV 10.1 9.1 - 12.3 fL [facility] Comment:Testing performed by : [address] [address] RBC 2.46(L) 4.30 - 5.80 M/cumm [facility] SHETTY Comment:Testing performed by : [address] [address] MCV 87.0 81.3 - 96.4 fL [facility] Comment:Testing performed by : [address] [address] MCH 29.7 27.1 - 33.3 pg [facility] Comment:Testing performed by : [address] [address] MCHC 34.1 32.3 - 35.7 g/dL [facility] Comment:Testing performed by : [address] [address] RDW CV 21.6(H) 11.1 - 14.9 % [facility] Comment:Testing performed by : [address], [address] RDW SD 67.9(H) 35.7 - 48.1 fL [facility] Comment:Testing performed by : [address] [address] NRBC abs 0.13(H) 0.00 - 0.01 K/cumm [facility] Comment:Testing performed by : [address] [address] Blood 01/15/2025 5:38 AM CDT 01/15/2025 6:12 AM CDT us Rasta Garcia MD LAB BLOOD ORDERABLES Final Res ult [facility] SHETT[facility] 7[address] [facility] Department [place] [address] * (ABNORMAL) Reticulocyte Count (01/15/2025 5:38 AM CDT) Retics, absolute 497(H) 20 - 87 K/cumm Comment:Testing performed by : [address] [address] Retics 20.2(H) 0.4 - 2.9 % [facility] Comment:Testing performed by : [address] [address] Reticulocyte Hgb 28.3(L) 30.5 - 38.0 pg [facility] SHETTY Comment:Testing performed by : [address] [address] Blood 01/15/2025 5:38 AM CDT 01/15/2025 6:12 AM CDT us Rasta Garcia MD LAB BLOOD ORDERABLES Final Res ult [facility] 4500 [facility] Department [place] [address] * (ABNORMAL) Basic metabolic panel (01/15/2025 5:38 AM CDT) Sodium 136 135 - 145 mmol/L Comment:Testing performed by : [address] [address] Potassium, pl 3.2(L) 3.3 - 4.9 mmol/L [facility] SHETTY Comment:Testing performed by : [address] [address] Chloride 102 97 - 110 mmol/L [facility] Comment:Testing performed by : [address] [address] CO2 24 22 - 32 mmol/L [facility] Comment:Testing performed by : [address] [address] Anion gap 10 2 - 15 mmol/L [facility] Comment:Testing performed by : [address] [address] BUN 3(L) 6 - 25 mg/dL [facility] Comment:Testing performed by : [address] [address] Creatinine 0.44(L) 0.80 - 1.30 mg/dL [facility] SHETTY Comment:Testing performed by : [address] [address] Glucose 116 70 - 199 mg/dL [facility] SHETTY Comment: Interpretive Data Fasting glucose >/= 126 [...] was last revised 2022. Testing performed by: [address] [address] Calcium 9.0 8.5 - 10.3 mg/dL [facility] SHETTY Comment:Testing performed by : [address] [address] Blood 01/15/2025 5:38 AM CDT 01/15/2025 6:12 AM CDT us Rasta Garcia MD LAB BLOOD ORDERABLES Final Res ult [facility] SHETT[facility] 4141 [facility] Department [place] [address] * eGFR (01/14/2025 6:18 AM CDT) eGFR [...] was last reviewed 2021. Testing performed by: [address] [address] Blood 01/14/2025 6:18 AM CDT 01/14/2025 6:28 AM CDT us aRsta Garcia MD LAB BLOOD ORDERABLES Final Res ult [facility] 4500 [facility] Department [place] [address] * Differential, auto (01/14/2025 6:18 AM CDT) Neutrophil abs 4.75 1.50 - 6.50 K/cumm Comment:Testing performed by : [address] [address] Imm gran abs 0.04 0.00 - 0.10 K/cumm [facility] Comment:Testing performed by : [address] [address] Lymphocyte abs 3.30 0.80 - 3.30 K/cumm [facility] Comment:Testing performed by : [address] [address] Monocyte abs 0.76 0.20 - 0.80 K/cumm [facility] Comment:Testing performed by : [address] [address] Eosinophil abs 0.14 0.00 - 0.50 K/cumm [facility] Comment:Testing performed by : [address] [address] Basophil abs 0.04 0.00 - 0.10 K/cumm [facility] Comment:Testing performed by : [address] [address] Neutrophil pct 52.7 % [facility] Comment: Interpretive Data Percent cell count reference ranges are not reported, since discordance with absolute values may lead to misinterpretation of CBC data. Current Interpretive Data was last revised on 2017. Testing performed by: [address] [address] Imm gran pct 0.4 % [facility] Comment: Interpretive Data Percent cell count reference ranges are not reported, since discordance with absolute values may lead to misinterpretation of CBC data. Current Interpretive Data was last revised on 2017. Testing performed by: [address] [address] Lymphocyte pct 36.5 % [facility] Comment: Interpretive Data Percent cell count reference ranges are not reported, since discordance with absolute values may lead to misinterpretation of CBC data. Current Interpretive Data was last revised on 2017. Testing performed by: [address] [address] Monocyte pct 8.4 % [facility] Comment: Interpretive Data Percent cell count reference ranges are not reported, since discordance with absolute values may lead to misinterpretation of CBC data. Current Interpretive Data was last revised on 2017. Testing performed by: [address] [address] Eosinophil pct 1.6 % [facility] Comment: Interpretive Data Percent cell count reference ranges are not reported, since discordance with absolute values may lead to misinterpretation of CBC data. Current Interpretive Data was last revised on 2017. Testing performed by: [address] [address] Basophil pct 0.4 % [facility] Comment: Interpretive Data Percent cell count reference ranges are not reported, since discordance with absolute values may lead to misinterpretation of CBC data. Current Interpretive Data was last revised on 2017. Testing performed by: [address] [address] Blood 01/14/2025 6:18 AM CDT 01/14/2025 6:28 AM CDT us Rasta Garcia MD LAB BLOOD ORDERABLES Final Res ult [facility] 45[address] [facility] Department [place] [address] * (ABNORMAL) CBC with auto differential (01/14/2025 6:18 AM CDT) WBC 9.03 3.80 - 9.90 K/cumm Comment:Testing performed by : [address] [address] Hgb 7.5(L) 13.0 - 17.5 g/dL [facility] Comment:Testing performed by : [address] [address] Hct 21.8(L) 38.9 - 50.3 % [facility] Comment:Testing performed by : [address] [address] Plt 287 150 - 400 K/cumm [facility] Comment:Testing performed by : [address] [address] MPV 10.1 9.1 - 12.3 fL [facility] Comment:Testing performed by : [address] [address] RBC 2.47(L) 4.30 - 5.80 M/cumm [facility] Comment:Testing performed by : [address] [address] MCV 88.3 81.3 - 96.4 fL [facility] Comment:Testing performed by : [address] [address] MCH 30.4 27.1 - 33.3 pg [facility] Comment:Testing performed by : [address] [address] MCHC 34.4 32.3 - 35.7 g/dL [facility] Comment:Testing performed by : [address] [address] RDW CV 22.0(H) 11.1 - 14.9 % [facility] Comment:Testing performed by : [address] [address] RDW SD 69.9(H) 35.7 - 48.1 fL [facility] Comment:Testing performed by : [facility], [address] [place] [address]., [address] NRBC abs 0.18(H) 0.00 - 0.01 K/cumm [facility] SHETTY Comment:Testing performed by : [address] [address] Morphologic Screen Results confirmed by manual morphology review. [facility] Comment:Testing performed by : [address] [address] Blood 01/14/2025 6:18 AM CDT 01/14/2025 6:28 AM CDT us Rasta Garcia MD LAB BLOOD ORDERABLES Edited Re sult - Final Performing Organization Address [facility] Co de Phone Number [facility] [address] [employer] [place] [address] * (ABNORMAL) Reticulocyte Count (01/14/2025 6:18 AM CDT) Retics, absolute 537(H) 20 - 87 K/cumm Comment:Testing performed by : [address] [address] Retics 21.5(H) 0.4 - 2.9 % [facility] Comment:Testing performed by : [address] [address] Reticulocyte Hgb 28.4(L) 30.5 - 38.0 pg [facility] Comment:Testing performed by : [address] [address] Blood 01/14/2025 6:18 AM CDT 01/14/2025 6:28 AM CDT us Rasta Garcia MD LAB BLOOD ORDERABLES Final Res ult Performing Organization Address [facility] Co de Phone Number KENYETTAALEJANDRA [address] [place] [employer] [place] [address] * (ABNORMAL) Basic metabolic panel (01/14/2025 6:18 AM CDT) [facility] Sodium 137 135 - 145 mmol/L Comment:Testing performed by : [address] [address] Potassium, pl 3.5 3.3 - 4.9 mmol/L [facility] Comment:Testing performed by : [address], [place]., [address] Chloride 103 97 - 110 mmol/L [facility] Comment:Testing performed by : [address], [place]., [address] CO2 24 22 - 32 mmol/L [facility] Comment:Testing performed by : [address], [place]., [address] Anion gap 10 2 - 15 mmol/L [facility] Comment:Testing performed by : [address], [place]., [address] BUN 2(L) 6 - 25 mg/dL [facility] Comment:Testing performed by : [address], [place]., [address] Creatinine 0.45(L) 0.80 - 1.30 mg/dL [facility] Comment:Testing performed by : [address], [place]., [address] Glucose 141 70 - 199 mg/dL [facility] Comment: Interpretive Data Fasting glucose >/= 126 [...] was last revised 2022. Testing performed by: [address] [address] Calcium 8.8 8.5 - 10.3 mg/dL [facility] Comment:Testing performed by : [address], [place]., [address] Blood 01/14/2025 6:18 AM CDT 01/14/2025 6:28 AM CDT us Rasta Garcia MD LAB BLOOD ORDERABLES Final Res ult [facility] 45[address] [facility] Department [place] [address] * XR Chest PA Lateral 2 Views [...] Gee Laboy D.O. AP: AP Report ID: [id number] Reading Location: [id number] Procedure Note Gee Laboy, - 01/11/2025 EXAM DESCRIPTION: XR CHEST PA [...] Gee Laboy D.O. AP: AP Report ID: [id number] Reading Location: [id number] Casey Paz MD IMG XR PROCEDURES Final Re sult * eGFR (01/11/2025 1:12 PM CDT) eGFR [...] of Race in Diagnosing Kidney Disease, JASN 202). The CKD-EPI equation should not be used for patients with unstable renal function and has not been validated in children and those over 70. Current interpretive data was last reviewed 2021. Testing performed by: [facility], [address] [place] [address], [place]., [address] Blood 01/11/2025 1:12 PM CDT 01/11/2025 1:15 PM CDT us Rasta Garcia MD LAB BLOOD ORDERABLES Final Res ult [facility] [address] [facility] Department of Laboratories [place], [place] [id number] * (ABNORMAL) CBC with auto differential (01/11/2025 1:12 PM CDT) WBC 10.21(H) 3.80 - 9.90 K/cumm Comment:Testing performed by : [address] [address] Hgb 8.3(L) 13.0 - 17.5 g/dL [facility] Comment:Testing performed by : [address], [address] Hct 24.3(L) 38.9 - 50.3 % [facility] Comment:Testing performed by : [address] [address] Plt 379 150 - 400 K/cumm [place] Comment:Testing performed by : [address] [address] MPV 9.9 9.1 - 12.3 fL [place] Comment:Testing performed by : [address] [address] RBC 2.82(L) 4.30 - 5.80 M/cumm [place] Comment:Testing performed by : [address] [address] MCV 86.2 81.3 - 96.4 fL [place] Comment:Testing performed by : [address] [address] MCH 29.4 27.1 - 33.3 pg [place] Comment:Testing performed by : [address], [address] MCHC 34.2 32.3 - 35.7 g/dL [place] Comment:Testing performed by : [address] [address] RDW CV 23.4(H) 11.1 - 14.9 % [facility] Comment:Testing performed by : [address] [address] RDW SD 70.7(H) 35.7 - 48.1 fL [facility] SHETTY Comment:Testing performed by : [address] [address] NRBC abs 0.23(H) 0.00 - 0.01 K/cumm [place] Comment:Testing performed by : [address] [address] Blood 01/11/2025 1:12 PM CDT 01/11/2025 1:15 PM CDT us Rasta Garcia MD LAB BLOOD ORDERABLES Final Res ult [facility]7 [facility] Department [place] [address] * (ABNORMAL) Manual Differential (01/11/2025 1:12 PM CDT) Differential Manual Comment:Testing performed by : [address] [address] Cells Counted 100 [place] Comment:Testing performed by : [address] [address] Neutrophil abs 4.90 1.50 - 6.50 K/cumm [place] Comment:Testing performed by : [address] [address] Lymphocyte abs 4.39(H) 0.80 - 3.30 K/cumm [facility] Comment:Testing performed by : [address] [address] Monocyte abs 0.51 0.20 - 0.80 K/cumm [place] Comment:Testing performed by : [address] [address] Eosinophil abs 0.41 0.00 - 0.50 K/cumm [place] Comment:Testing performed by : [address] [address] Neutrophil pct 48.0 % [facility] Comment: Interpretive Data Percent cell count reference ranges are not reported, since discordance with absolute values may lead to misinterpretation of CBC data. Current Interpretive Data was last revised on 2017. Testing performed by: [address] [address] Lymphocyte pct 43.0 % [facility] Comment: Interpretive Data Percent cell count reference ranges are not reported, since discordance with absolute values may lead to misinterpretation of CBC data. Current Interpretive Data was last revised on 2017. Testing performed by: [address] [address] Monocyte pct 5.0 % [facility] Comment: Interpretive Data Percent cell count reference ranges are not reported, since discordance with absolute values may lead to misinterpretation of CBC data. Current Interpretive Data was last revised on 2017. Testing performed by: [address], [place]., [address] Eosinophil pct 4.0 % [facility] Comment: Interpretive Data Percent cell count reference ranges are not reported, since discordance with absolute values may lead to misinterpretation of CBC data. Current Interpretive Data was last revised on 2017. Testing performed by: [address], [place]., [address] RBC morphology Present(A) [facility] Comment:Testing performed by : [address] [address] Polychromasia 3-7/HPF(A) [facility] Comment:Testing performed by : [address] [address] Anisocytosis Marked(A) [place] Comment:Testing performed by : [address], [place]., [address] Sickle cells 1-2/HPF(A) [place] Comment:Testing performed by : [address] [address] Elliptocytes 8-15/HPF(A) [place] Comment:Testing performed by : [address] [address] Teardrop cells 3-7/HPF(A) [facility] Comment:Testing performed by : [address] [address] Platelet morphology Normal [place] Comment:Testing performed by : [address] [address] Platelet estimate Adequate [place] Comment:Testing performed by : [address] [address] Blood 01/11/2025 1:12 PM CDT 01/11/2025 1:15 PM CDT us Rasta Garcia MD LAB BLOOD ORDERABLES Final Res ult Performing Organization Address [facility] Co de Phone Number [address] [place] [address] * (ABNORMAL) Reticulocyte Count (01/11/2025 1:12 PM CDT) [facility] Retics, absolute 585(H) 20 - 87 K/cumm Comment:Testing performed by : [address] [address] Retics 20.8(H) 0.4 - 2.9 % [place] Comment:Testing performed by : [address] [address] Reticulocyte Hgb 30.1(L) 30.5 - 38.0 pg [facility] Comment:Testing performed by : [address] [address] Blood 01/11/2025 1:12 PM CDT 01/11/2025 1:15 PM CDT us Rasta Garcia MD LAB BLOOD ORDERABLES Final Res ult Performing Organization Address [facility] de Phone Number [address] [employer] [place] [address] * (ABNORMAL) Basic metabolic panel (01/11/2025 1:12 PM CDT) [facility] Sodium 138 135 - 145 mmol/L Comment:Testing performed by : [address] [address] Potassium, pl 3.7 3.3 - 4.9 mmol/L [facility] Comment:Testing performed by : [address] [address] Chloride 103 97 - 110 mmol/L [facility] Comment:Testing performed by : [address] [address] CO2 24 22 - 32 mmol/L [facility] Comment:Testing performed by : [address] [address] Anion gap 11 2 - 15 mmol/L [facility] Comment:Testing performed by : [address] [address] BUN 2(L) 6 - 25 mg/dL [facility] Comment:Testing performed by : [address] [address] Creatinine 0.50(L) 0.80 - 1.30 mg/dL [facility] Comment:Testing performed by : [address] [address] Glucose 110 70 - 199 mg/dL [facility] Comment: Interpretive Data Fasting glucose >/= 126 [...] was last revised 2022. Testing performed by: [address] [address] Calcium 8.7 8.5 - 10.3 mg/dL [facility] Comment:Testing performed by : [address] [address] Blood 01/11/2025 1:12 PM CDT 01/11/2025 1:15 PM CDT us Rasta Garcia MD LAB BLOOD ORDERABLES Final Res ult [facility] 4500 [facility] Department [place] [address] * XR Chest 1 View (01/10/2025 1:39 [...] Anne Merchant M.D. FT: FT Report ID: [id number] Reading Location: [id number] Procedure Note Anne Hernandes MD - 01/10/2025 [...] Anne Merchant M.D. FT: FT Report ID: [id number] Reading Location: [place] [address] us Jaya Garcia DO IMG XR PROCEDURES [...] was last reviewed 2021. Testing performed by: [address] [address] Blood 01/10/2025 10:2 9 AM CDT 01/10/2025 10:53 AM CDT us Rasta Garcia MD LAB BLOOD ORDERABLES Final Res ult [facility] 1800 [facility] Department [place] [address] * (ABNORMAL) Differential, auto (01/10/2025 10:29 AM CDT) Neutrophil abs 4.63 1.50 - 6.50 K/cumm Comment:Testing performed by : [address] [address] Imm gran abs 0.08 0.00 - 0.10 K/cumm [facility] Comment:Testing performed by : [address], [place]., [address] Lymphocyte abs 4.22(H) 0.80 - 3.30 K/cumm [facility] Comment:Testing performed by : [address] [address] Monocyte abs 0.96(H) 0.20 - 0.80 K/cumm [facility] Comment:Testing performed by : [address], [place]., [address] Eosinophil abs 0.20 0.00 - 0.50 K/cumm [facility] Comment:Testing performed by : [address], [place]., [address] Basophil abs 0.06 0.00 - 0.10 K/cumm [facility] Comment:Testing performed by : [address] [address] Neutrophil pct 45.5 % [facility] Comment: Interpretive Data Percent cell count reference ranges are not reported, since discordance with absolute values may lead to misinterpretation of CBC data. Current Interpretive Data was last revised on 2017. Testing performed by: [address] [address] Imm gran pct 0.8 % [facility] Comment: Interpretive Data Percent cell count reference ranges are not reported, since discordance with absolute values may lead to misinterpretation of CBC data. Current Interpretive Data was last revised on 2017. Testing performed by: [address] [address] Lymphocyte pct 41.6 % [facility] Comment: Interpretive Data Percent cell count reference ranges are not reported, since discordance with absolute values may lead to misinterpretation of CBC data. Current Interpretive Data was last revised on 2017. Testing performed by: [address] [address] Monocyte pct 9.5 % [facility] Comment: Interpretive Data Percent cell count reference ranges are not reported, since discordance with absolute values may lead to misinterpretation of CBC data. Current Interpretive Data was last revised on 2017. Testing performed by: [address] [address] Eosinophil pct 2.0 % [facility] SHETTY Comment: Interpretive Data Percent cell count reference ranges are not reported, since discordance with absolute values may lead to misinterpretation of CBC data. Current Interpretive Data was last revised on 2017. Testing performed by: [address] [address] Basophil pct 0.6 % [facility] SHETT[facility] Comment: Interpretive Data Percent cell count reference ranges are not reported, since discordance with absolute values may lead to misinterpretation of CBC data. Current Interpretive Data was last revised on 2017. Testing performed by: [address] [address] Blood 01/10/2025 10:2 9 AM CDT 01/10/2025 10:52 AM CDT us Rasta Garcia MD LAB BLOOD ORDERABLES Final Res ult [facility] 8584 [facility] Department [place] [address] * (ABNORMAL) CBC with auto differential (01/10/2025 10:29 AM CDT) WBC 10.15(H) 3.80 - 9.90 K/cumm Comment:Testing performed by : [address] [address] Hgb 7.5(L) 13.0 - 17.5 g/dL [facility] SHETTY Comment:Testing performed by : [address] [address] Hct 22.0(L) 38.9 - 50.3 % [facility] SHETTY Comment:Testing performed by : [address] [address] Plt 324 150 - 400 K/cumm [facility] SHETTY Comment:Testing performed by : [address] [address] MPV 10.3 9.1 - 12.3 fL [facility] SHETTY Comment:Testing performed by : [address] [address] RBC 2.51(L) 4.30 - 5.80 M/cumm [facility] Comment:Testing performed by : [address] [address] MCV 87.6 81.3 - 96.4 fL [facility] Comment:Testing performed by : [address] [address] MCH 29.9 27.1 - 33.3 pg [facility] Comment:Testing performed by : [address] [address] MCHC 34.1 32.3 - 35.7 g/dL [facility] Comment:Testing performed by : [address], [address] RDW CV 22.9(H) 11.1 - 14.9 % [facility] Comment:Testing performed by : [address], [address] RDW SD 69.4(H) 35.7 - 48.1 fL [place] Comment:Testing performed by : [address] [address] NRBC abs 0.15(H) 0.00 - 0.01 K/cumm [facility] Comment:Testing performed by : [address], [address] Morphologic Screen Results confirmed by manual morphology review. [facility] Comment:Testing performed by : [address], [address] Blood 01/10/2025 10:2 9 AM CDT 01/10/2025 10:52 AM CDT us Rasta Garcia MD LAB BLOOD ORDERABLES Edited Re sult - Final [facility] 6[address] [facility] Department of Laboratories [place], [place] [id number] * (ABNORMAL) Reticulocyte Count (01/10/2025 10:29 AM CDT) Retics, absolute 624(H) 20 - 87 K/cumm Comment:Testing performed by : [address] [address] Retics 21.5(H) 0.4 - 2.9 % [facility] Comment:Testing performed by : [address] [address] Reticulocyte Hgb 28.1(L) 30.5 - 38.0 pg [facility] Comment:Testing performed by : [address] [address] Blood 01/10/2025 10:2 9 AM CDT 01/10/2025 10:52 AM CDT us Rasta Garcia MD LAB BLOOD ORDERABLES Final Res ult [facility] 4500 [facility] Department of Laboratories [place], [place] [id number] * (ABNORMAL) Basic metabolic panel (01/10/2025 10:29 AM CDT) Sodium 138 135 - 145 mmol/L Comment:Testing performed by : [address] [address] Potassium, pl 3.5 3.3 - 4.9 mmol/L [facility] Comment:Testing performed by : [address] [address] Chloride 104 97 - 110 mmol/L [facility] Comment:Testing performed by : [address] [address] CO2 24 22 - 32 mmol/L [facility] Comment:Testing performed by : [address] [address] Anion gap 10 2 - 15 mmol/L [facility] Comment:Testing performed by : [address] [address] BUN 2(L) 6 - 25 mg/dL [facility] Comment:Testing performed by : [address] [address] Creatinine 0.50(L) 0.80 - 1.30 mg/dL [facility] Comment:Testing performed by : [address] [address] Glucose 98 70 - 199 mg/dL [facility] [...] was last revised 2022. Testing performed by: [address] [address] Calcium 8.4(L) 8.5 - 10.3 mg/dL [facility] Comment:Testing performed by : [address] [address] Blood 01/10/2025 10:2 9 AM CDT 01/10/2025 10:53 AM CDT us Rasta Garcia MD LAB BLOOD ORDERABLES Final Res ult [facility] 9334 [facility] Department [place] [address] * (ABNORMAL) Differential, auto (01/09/2025 4:55 AM CDT) Neutrophil abs 4.56 1.50 - 6.50 K/cumm Comment:Testing performed by : [address] [address] Imm gran abs 0.05 0.00 - 0.10 K/cumm [facility] SHETTY Comment:Testing performed by : [address] [address] Lymphocyte abs 3.68(H) 0.80 - 3.30 K/cumm [place] Comment:Testing performed by : [address] [address] Monocyte abs 1.48(H) 0.20 - 0.80 K/cumm [facility] Comment:Testing performed by : [address] [address] Eosinophil abs 0.24 0.00 - 0.50 K/cumm [facility] Comment:Testing performed by : [address] [address] Basophil abs 0.06 0.00 - 0.10 K/cumm [facility] Comment:Testing performed by : [address] [address] Neutrophil pct 45.3 % [facility] Comment: Interpretive Data Percent cell count reference ranges are not reported, since discordance with absolute values may lead to misinterpretation of CBC data. Current Interpretive Data was last revised on 2017. Testing performed by: [address] [address] Imm gran pct 0.5 % [facility] Comment: Interpretive Data Percent cell count reference ranges are not reported, since discordance with absolute values may lead to misinterpretation of CBC data. Current Interpretive Data was last revised on 2017. Testing performed by: [address] [address] Lymphocyte pct 36.5 % [facility] Comment: Interpretive Data Percent cell count reference ranges are not reported, since discordance with absolute values may lead to misinterpretation of CBC data. Current Interpretive Data was last revised on 2017. Testing performed by: [address] [address] Monocyte pct 14.7 % [facility] Comment: Interpretive Data Percent cell count reference ranges are not reported, since discordance with absolute values may lead to misinterpretation of CBC data. Current Interpretive Data was last revised on 2017. Testing performed by: [address] [address] Eosinophil pct 2.4 % [facility] Comment: Interpretive Data Percent cell count reference ranges are not reported, since discordance with absolute values may lead to misinterpretation of CBC data. Current Interpretive Data was last revised on 2017. Testing performed by: [address] [address] Basophil pct 0.6 % [facility] Comment: Interpretive Data Percent cell count reference ranges are not reported, since discordance with absolute values may lead to misinterpretation of CBC data. Current Interpretive Data was last revised on 2017. Testing performed by: [address] [address] Blood 01/09/2025 4:55 AM CDT 01/09/2025 4:59 AM CDT us Rasta Garcia MD LAB BLOOD ORDERABLES Final Res ult [facility] 4501 [facility] Department [place] [address] * (ABNORMAL) CBC with auto differential (01/09/2025 4:55 AM CDT) WBC 10.07(H) 3.80 - 9.90 K/cumm Comment:Testing performed by : [address] [address] Hgb 7.3(L) 13.0 - 17.5 g/dL [facility] Comment:Testing performed by : [address] [address] Hct 21.4(L) 38.9 - 50.3 % [facility] Comment:Testing performed by : [address] [address] Plt 285 150 - 400 K/cumm [place] Comment:Testing performed by : [address] [address] MPV 10.1 9.1 - 12.3 fL [place] Comment:Testing performed by : [address] [address] RBC 2.44(L) 4.30 - 5.80 M/cumm [facility] SHETTY Comment:Testing performed by : [address] [address] MCV 87.7 81.3 - 96.4 fL [place] Comment:Testing performed by : [address] [address] MCH 29.9 27.1 - 33.3 pg [place] SHETTY Comment:Testing performed by : [address] [address] MCHC 34.1 32.3 - 35.7 g/dL [facility] SHETTY Comment:Testing performed by : [address] [address] RDW CV 22.1(H) 11.1 - 14.9 % [place] Comment:Testing performed by : [address] [address] RDW SD 67.3(H) 35.7 - 48.1 fL [place] Comment:Testing performed by : [address] [address] NRBC abs 0.19(H) 0.00 - 0.01 K/cumm [facility] Comment:Testing performed by : [address], [address] Morphologic Screen Results confirmed by manual morphology review. [facility] Comment:Testing performed by : [address] [address] Blood 01/09/2025 4:55 AM CDT 01/09/2025 4:59 AM CDT us Rasta Garcia MD LAB BLOOD ORDERABLES Final Res ult [facility] 8839 [facility] Department [place] [address] * (ABNORMAL) Reticulocyte Count (01/09/2025 4:55 AM CDT) Retics, absolute 566(H) 20 - 87 K/cumm Comment:Testing performed by : [address] [address] Retics 23.2(H) 0.4 - 2.9 % [facility] Comment:Testing performed by : [address] [address] Reticulocyte Hgb 28.1(L) 30.5 - 38.0 pg [place] Comment:Testing performed by : [address] [address] Blood 01/09/2025 4:55 AM CDT 01/09/2025 4:59 AM CDT Rasta Garcia MD LAB BLOOD ORDERABLES Final Res ult Performing Organization Address City/[facility]/ZIP Co de Phone Number [facility] [facility]0 [facility] [place] [employer] [place] [address] * eGFR (01/09/2025 4:50 AM CDT) eGFR [...] was last reviewed 2021. Testing performed by: [facility], [address] [place] [address]., [address] Blood 01/09/2025 4:50 AM CDT 01/09/2025 4:59 AM CDT us Rasta Garcia MD LAB BLOOD ORDERABLES Final Res ult [place] [address] [place] [employer] [place] [address] * (ABNORMAL) Basic metabolic panel (01/09/2025 4:50 AM CDT) Sodium 137 135 - 145 mmol/L Comment:Testing performed by : [address] [address] Potassium, pl 3.9 3.3 - 4.9 mmol/L [facility] Comment:Testing performed by : [address], [place]., [address] Chloride 102 97 - 110 mmol/L [facility] Comment:Testing performed by : [address], [place]., [address] CO2 23 22 - 32 mmol/L [facility] Comment:Testing performed by : [address], [place]., [address] Anion gap 12 2 - 15 mmol/L [facility] Comment:Testing performed by : [address], [place]., [address] BUN 4(L) 6 - 25 mg/dL [facility] Comment:Testing performed by : [address], [place]., [address] Creatinine 0.56(L) 0.80 - 1.30 mg/dL [facility] Comment:Testing performed by : [address] [address] Glucose 109 70 - 199 mg/dL [facility] Comment: Interpretive Data Fasting glucose >/= 126 [...] was last revised 2022. Testing performed by: [address] [address] Calcium 8.8 8.5 - 10.3 mg/dL [facility] Comment:Testing performed by : [address] [address] Blood 01/09/2025 4:50 AM CDT 01/09/2025 4:59 AM CDT us Rasta Garcia MD LAB BLOOD ORDERABLES Final Res ult [facility] 4500 [facility] Department [place] [address] * CT Abdomen Pelvis WO Contrast (01/08/2025 [...] Anival Cotton M.D. NS: NS Report ID: [id number] Reading Location: [id number] Procedure Note Anival Cotton MD - 01/08/2025 [...] Anival Cotton M.D. NS: NS Report ID: [id number] Reading Location: [place] [address] Jaya Garcia DO IMG CT PROCEDURES Final Result * eGFR (01/07/2025 10:48 AM CDT) eGFR [...] was last reviewed 2021. Testing performed by: [address] [address] Blood 01/07/2025 10:4 8 AM CDT 01/07/2025 11:07 AM CDT us Rasta Garcia MD LAB BLOOD ORDERABLES Final Res ult [facility] 4500 [facility] Department [place] [address] * (ABNORMAL) CBC with auto differential (01/07/2025 10:48 AM CDT) WBC 8.71 3.80 - 9.90 K/cumm Comment:Testing performed by : [address] [address] Hgb 8.0(L) 13.0 - 17.5 g/dL [facility] Comment:Testing performed by : [address] [address] Hct 23.2(L) 38.9 - 50.3 % [facility] Comment:Testing performed by : [address] [address] Plt 324 150 - 400 K/cumm [place] Comment:Testing performed by : [address] [address] MPV 10.3 9.1 - 12.3 fL [place] Comment:Testing performed by : [address] [address] RBC 2.58(L) 4.30 - 5.80 M/cumm [place] Comment:Testing performed by : [address] [address] MCV 89.9 81.3 - 96.4 fL [place] Comment:Testing performed by : [address] [address] MCH 31.0 27.1 - 33.3 pg [place] Comment:Testing performed by : [address] [address] MCHC 34.5 32.3 - 35.7 g/dL [facility] SHETTY Comment:Testing performed by : [address] [address] RDW CV 21.6(H) 11.1 - 14.9 % [place] Comment:Testing performed by : [address] [address] RDW SD 68.9(H) 35.7 - 48.1 fL [place] Comment:Testing performed by : [address] [address] NRBC abs 0.26(H) 0.00 - 0.01 K/cumm [facility] Comment:Testing performed by : [address] [address] Blood 01/07/2025 10:4 8 AM CDT 01/07/2025 11:07 AM CDT us Jaya Garcia DO LAB BLOOD ORDERABLES Final Resul t [place] [address] Department [place] [address] * (ABNORMAL) Manual Differential (01/07/2025 10:48 AM CDT) Differential Manual Comment:Testing performed by : [address] [address] Cells Counted 100 [place] Comment:Testing performed by : [address] [address] Neutrophil abs 3.92 1.50 - 6.50 K/cumm [facility] Comment:Testing performed by : [address] [address] Lymphocyte abs 4.44(H) 0.80 - 3.30 K/cumm [facility] Comment:Testing performed by : [address] [address] Monocyte abs 0.26 0.20 - 0.80 K/cumm [facility] Comment:Testing performed by : [address] [address] Eosinophil abs 0.09 0.00 - 0.50 K/cumm [facility] Comment:Testing performed by : [address] [address] Neutrophil pct 45.0 % [facility] Comment: Interpretive Data Percent cell count reference ranges are not reported, since discordance with absolute values may lead to misinterpretation of CBC data. Current Interpretive Data was last revised on 2017. Testing performed by: [address] [address] Lymphocyte pct 51.0 % [facility] Comment: Interpretive Data Percent cell count reference ranges are not reported, since discordance with absolute values may lead to misinterpretation of CBC data. Current Interpretive Data was last revised on 2017. Testing performed by: [address] [address] Monocyte pct 3.0 % [facility] Comment: Interpretive Data Percent cell count reference ranges are not reported, since discordance with absolute values may lead to misinterpretation of CBC data. Current Interpretive Data was last revised on 2017. Testing performed by: [address] [address] Eosinophil pct 1.0 % [facility] Comment: Interpretive Data Percent cell count reference ranges are not reported, since discordance with absolute values may lead to misinterpretation of CBC data. Current Interpretive Data was last revised on 2017. Testing performed by: [address] [address] RBC morphology Present(A) [facility] Comment:Testing performed by : [address] [address] Anisocytosis Marked(A) [facility] Comment:Testing performed by : [address] [address] Sickle cells 1-2/HPF(A) [facility] Comment:Testing performed by : [address] [address] Elliptocytes 3-7/HPF(A) [facility] Comment:Testing performed by : [address] [address] Target cells 3-7/HPF(A) [facility] Comment:Testing performed by : [address] [address] Platelet morphology Normal [facility] Comment:Testing performed by : [address] [address] Platelet estimate Adequate [facility] Comment:Testing performed by : [address] [address] Blood 01/07/2025 10:4 8 AM CDT 01/07/2025 11:07 AM CDT us Jaya Garcia DO LAB BLOOD ORDERABLES Final Resul t Performing Organization Address [facility] Co de Phone Number [facility] [address] [place] [employer] [place] [address] * (ABNORMAL) Reticulocyte Count (01/07/2025 10:48 AM CDT) Retics, absolute 559(H) 20 - 87 K/cumm Comment:Testing performed by : [address] [address] Retics 20.7(H) 0.4 - 2.9 % [facility] Comment:Testing performed by : [address] [address] Reticulocyte Hgb 28.5(L) 30.5 - 38.0 pg [facility] Comment:Testing performed by : [address] [address] Blood 01/07/2025 10:4 8 AM CDT 01/07/2025 11:07 AM CDT us Rasta Garcia MD LAB BLOOD ORDERABLES Final Res ult Performing Organization Address [facility] Co de Phone Number [address] [place] [address] * (ABNORMAL) Basic metabolic panel (01/07/2025 10:48 AM CDT) Sodium 141 135 - 145 mmol/L Comment:Testing performed by : [address] [address] Potassium, pl 3.3 3.3 - 4.9 mmol/L [facility] Comment:Testing performed by : [address] [address] Chloride 104 97 - 110 mmol/L [facility] Comment:Testing performed by : [address] [address] CO2 25 22 - 32 mmol/L [facility] Comment:Testing performed by : [address] [address] Anion gap 12 2 - 15 mmol/L [facility] Comment:Testing performed by : [address] [address] BUN 2(L) 6 - 25 mg/dL [facility] Comment:Testing performed by : [address], [place]., [address] Creatinine 0.50(L) 0.80 - 1.30 mg/dL [facility] Comment:Testing performed by : [address] [address] Glucose 162 70 - 199 mg/dL [facility] Comment: Interpretive Data Fasting glucose >/= 126 [...] was last revised 2022. Testing performed by: [address] [address] Calcium 8.6 8.5 - 10.3 mg/dL [facility] Comment:Testing performed by : [address] [address] Blood 01/07/2025 10:4 8 AM CDT 01/07/2025 11:07 AM CDT Rasta Garcia MD LAB BLOOD ORDERABLES Final Res ult Performing Organization Address [facility] de Phone Number [facility] [address] [facility] [employer] [place] [address] * eGFR (01/06/2025 6:52 AM CDT) eGFR [...] was last reviewed 2021. Testing performed by: [address] [address] Blood 01/06/2025 6:52 AM CDT 01/06/2025 7:14 AM CDT us Rasta Garcia MD LAB BLOOD ORDERABLES Final Res ult Performing Organization Address [facility] Co de Phone Number [facility] [address] [facility] [place] [address] * (ABNORMAL) Basic metabolic panel (01/06/2025 6:52 AM CDT) Pathologist [facility] Sodium 139 135 - 145 mmol/L Comment:Testing performed by : [address] [address] Potassium, pl 3.7 3.3 - 4.9 mmol/L [facility] SHETTY Comment:Testing performed by : [address] [address] Chloride 103 97 - 110 mmol/L [facility] Comment:Testing performed by : [address] [address] CO2 23 22 - 32 mmol/L [facility] Comment:Testing performed by : [address] [address] Anion gap 13 2 - 15 mmol/L [facility] Comment:Testing performed by : [address] [address] BUN 2(L) 6 - 25 mg/dL [facility] Comment:Testing performed by : [address] [address] Creatinine 0.50(L) 0.80 - 1.30 mg/dL [facility] Comment:Testing performed by : [address] [address] Glucose 95 70 - 199 mg/dL [facility] Comment: Interpretive [...] was last revised 2022. Testing performed by: [address] [address] Calcium 8.6 8.5 - 10.3 mg/dL [facility] Comment:Testing performed by : [address] [address] Blood 01/06/2025 6:52 AM CDT 01/06/2025 7:14 AM CDT us Rasta Garcia MD LAB BLOOD ORDERABLES Final Res ult [facility] SHETTY [address] [facility] Department [place] [address] * eGFR (01/04/2025 7:27 AM CDT) Pathologist [facility] eGFR >90 >=60 mL/min/1. 73 m2 Comment: [...] was last reviewed 2021. Testing performed by: [address] [address] Blood 01/04/2025 7:27 AM CDT 01/04/2025 7:34 AM CDT us Rasta Garcia MD LAB BLOOD ORDERABLES Final Res ult [facility] [address] [facility] Department [place] [address] * (ABNORMAL) CBC with auto differential (01/04/2025 7:27 AM CDT) [facility] WBC 10.50(H) 3.80 - 9.90 K/cumm Comment:Testing performed by : [address] [address] Hgb 8.4(L) 13.0 - 17.5 g/dL [facility] SHETTY Comment:Testing performed by : [address] [address] Hct 25.3(L) 38.9 - 50.3 % [facility] Comment:Testing performed by : [address] [address] Plt 299 150 - 400 K/cumm [facility] Comment:Testing performed by : [address] [address] MPV 9.8 9.1 - 12.3 fL [facility] Comment:Testing performed by : [address], [address] RBC 2.76(L) 4.30 - 5.80 M/cumm [facility] Comment:Testing performed by : [address], [address] MCV 91.7 81.3 - 96.4 fL [facility] Comment:Testing performed by : [address] [address] MCH 30.4 27.1 - 33.3 pg [facility] Comment:Testing performed by : [address], [address] MCHC 33.2 32.3 - 35.7 g/dL [facility] Comment:Testing performed by : [address], [address] RDW CV 23.3(H) 11.1 - 14.9 % [facility] Comment:Testing performed by : [address] [address] RDW SD 74.0(H) 35.7 - 48.1 fL [facility] Comment:Testing performed by : [address], [address] NRBC abs 0.21(H) 0.00 - 0.01 K/cumm [facility] Comment:Testing performed by : [address], [address] Blood 01/04/2025 7:27 AM CDT 01/04/2025 7:34 AM CDT us Rasta Garcia MD LAB BLOOD ORDERABLES Final Res ult [facility] [address] [facility] Department [place] [address] * (ABNORMAL) Manual Differential (01/04/2025 7:27 AM CDT) Differential Manual Comment:Testing performed by : [address] [address] Cells Counted 100 [facility] Comment:Testing performed by : [address] [address] Neutrophil abs 3.26 1.50 - 6.50 K/cumm [facility] Comment:Testing performed by : [address] [address] Lymphocyte abs 5.88(H) 0.80 - 3.30 K/cumm [facility] Comment:Testing performed by : [address] [address] Monocyte abs 0.63 0.20 - 0.80 K/cumm [facility] Comment:Testing performed by : [address] [address] Eosinophil abs 0.53(H) 0.00 - 0.50 K/cumm [facility] Comment:Testing performed by : [address] [address] Basophil abs 0.21(H) 0.00 - 0.10 K/cumm [facility] Comment:Testing performed by : [address] [address] Neutrophil pct 31.0 % [facility] Comment: Interpretive Data Percent cell count reference ranges are not reported, since discordance with absolute values may lead to misinterpretation of CBC data. Current Interpretive Data was last revised on 2017. Testing performed by: [address] [address] Lymphocyte pct 56.0 % [facility] Comment: Interpretive Data Percent cell count reference ranges are not reported, since discordance with absolute values may lead to misinterpretation of CBC data. Current Interpretive Data was last revised on 2017. Testing performed by: [address] [address] Monocyte pct 6.0 % [facility] Comment: Interpretive Data Percent cell count reference ranges are not reported, since discordance with absolute values may lead to misinterpretation of CBC data. Current Interpretive Data was last revised on 2017. Testing performed by: [facility], [address] [place] [address], [place]., [address] Eosinophil pct 5.0 % [facility] Comment: Interpretive Data Percent cell count reference ranges are not reported, since discordance with absolute values may lead to misinterpretation of CBC data. Current Interpretive Data was last revised on 2017. Testing performed by: [address], [place]., [address] Basophil pct 2.0 % [facility] Comment: Interpretive Data Percent cell count reference ranges are not reported, since discordance with absolute values may lead to misinterpretation of CBC data. Current Interpretive Data was last revised on 2017. Testing performed by: [address], [place]., [address] Vacuolation Present(A) [facility] Comment:Testing performed by : [address], [place]., [address] RBC morphology Present(A) [facility] Comment:Testing performed by : [address] [address] Polychromasia 3-7/HPF(A) [facility] Comment:Testing performed by : [address], [place]., [address] Anisocytosis Marked(A) [facility] Comment:Testing performed by : [address] [place] [address] Macrocytes 3-7/HPF(A) [facility] Comment:Testing performed by : [address] [address] Schistocytes 1-2/HPF(A) [facility] Comment:Testing performed by : [address] [address] Sickle cells 3-7/HPF(A) [facility] Comment:Testing performed by : [address], [place]., [address] Platelet estimate Adequate [facility] Comment:Testing performed by : [address] [address] Giant platelets Present(A) [facility] Comment:Testing performed by : [address] [address] Blood 01/04/2025 7:27 AM CDT 01/04/2025 7:34 AM CDT us Rasta Garcia MD LAB BLOOD ORDERABLES Final Res ult Performing Organization Address [facility] Co de Phone Number [facility] [address] [facility] [place] [address] * (ABNORMAL) Reticulocyte Count (01/04/2025 7:27 AM CDT) [facility] Retics, absolute 532(H) 20 - 87 K/cumm Comment:Testing performed by : [address] [address] Retics 19.3(H) 0.4 - 2.9 % [facility] Comment:Testing performed by : [address] [address] Reticulocyte Hgb 34.7 30.5 - 38.0 pg [facility] Comment:Testing performed by : [address] [address] Blood 01/04/2025 7:27 AM CDT 01/04/2025 7:34 AM CDT us Rasta Garcia MD LAB BLOOD ORDERABLES Final Res ult Performing Organization Address [facility] de Phone Number [facility] [address] [facility] [place] [address] * (ABNORMAL) Basic metabolic panel (01/04/2025 7:27 AM CDT) [facility] Sodium 137 135 - 145 mmol/L Comment:Testing performed by : [address] [address] Potassium, pl 3.5 3.3 - 4.9 mmol/L [facility] Comment:Testing performed by : [address] [place]., [address] Chloride 100 97 - 110 mmol/L [facility] Comment:Testing performed by : [address] [address] CO2 25 22 - 32 mmol/L [facility] Comment:Testing performed by : [address] [address] Anion gap 12 2 - 15 mmol/L [facility] Comment:Testing performed by : [address] [address] BUN 2(L) 6 - 25 mg/dL [facility] Comment:Testing performed by : [address] [address] Creatinine 0.49(L) 0.80 - 1.30 mg/dL [facility] Comment:Testing performed by : [address] [address] Glucose 106 70 - 199 mg/dL [facility] [...] was last revised 2022. Testing performed by: [address] [address] Calcium 9.1 8.5 - 10.3 mg/dL [facility] Comment:Testing performed by : [address] [address] Blood 01/04/2025 7:27 AM CDT 01/04/2025 7:34 AM CDT us Rasta Garcia MD LAB BLOOD ORDERABLES Final Res ult [facility] [address] [facility] Department [place] [address] * (ABNORMAL) Blood smear review (01/03/2025 7:30 AM CDT) Pathologist [facility] RBC morphology Present(A) Comment:Testing performed by : [facility], [address] [place] [address], [place]., [address] Polychromasia 3-7/HPF(A) [facility] Comment:Testing performed by : [address] [address] Anisocytosis Slight(A) [facility] Comment:Testing performed by : [address], [place]., [address] Poikilocytosis Slight(A) [facility] Comment:Testing performed by : [address], [place]., [address] Sickle cells 1-2/HPF(A) [facility] Comment:Testing performed by : [address], [place]., [address] Elliptocytes 3-7/HPF(A) [facility] Comment:Testing performed by : [facility], [address] [place] [address], [place]., [address] Target cells 3-7/HPF(A) [facility] Comment:Testing performed by : [address] [address] Platelet estimate Adequate [facility] Comment:Testing performed by : [address], [place]., [address] Blood 01/03/2025 7:30 AM CDT 01/03/2025 7:44 AM CDT us Rasta Garcia MD LAB BLOOD ORDERABLES Final Res ult [facility] [address] [facility] Department [place] [address] * eGFR (01/03/2025 7:30 AM CDT) Pathologist [facility] eGFR >90 >=60 mL/min/1. 73 m2 Comment: [...] was last reviewed 2021. Testing performed by: [address] [address] Blood 01/03/2025 7:30 AM CDT 01/03/2025 7:44 AM CDT us Rasta Garcia MD LAB BLOOD ORDERABLES Final Res ult [place] 224929 [facility] Department [place] [address] * (ABNORMAL) Differential, auto (01/03/2025 7:30 AM CDT) Neutrophil abs 5.76 1.50 - 6.50 K/cumm Comment:Testing performed by : [address] [address] Imm gran abs 0.13(H) 0.00 - 0.10 K/cumm [facility] Comment:Testing performed by : [address] [address] Lymphocyte abs 3.10 0.80 - 3.30 K/cumm [facility] Comment:Testing performed by : [address] [address] Monocyte abs 0.98(H) 0.20 - 0.80 K/cumm [facility] Comment:Testing performed by : [address] [address] Eosinophil abs 0.21 0.00 - 0.50 K/cumm [facility] Comment:Testing performed by : [address] [address] Basophil abs 0.07 0.00 - 0.10 K/cumm [facility] Comment:Testing performed by : [address] [address] Neutrophil pct 56.2 % [facility] Comment: Interpretive Data Percent cell count reference ranges are not reported, since discordance with absolute values may lead to misinterpretation of CBC data. Current Interpretive Data was last revised on 2017. Testing performed by: [address] [address] Imm gran pct 1.3 % [facility] Comment: Interpretive Data Percent cell count reference ranges are not reported, since discordance with absolute values may lead to misinterpretation of CBC data. Current Interpretive Data was last revised on 2017. Testing performed by: [address] [address] Lymphocyte pct 30.2 % [facility] Comment: Interpretive Data Percent cell count reference ranges are not reported, since discordance with absolute values may lead to misinterpretation of CBC data. Current Interpretive Data was last revised on 2017. Testing performed by: [address] [address] Monocyte pct 9.6 % [facility] Comment: Interpretive Data Percent cell count reference ranges are not reported, since discordance with absolute values may lead to misinterpretation of CBC data. Current Interpretive Data was last revised on 2017. Testing performed by: [address] [address] Eosinophil pct 2.0 % [facility] Comment: Interpretive Data Percent cell count reference ranges are not reported, since discordance with absolute values may lead to misinterpretation of CBC data. Current Interpretive Data was last revised on 2017. Testing performed by: [address] [address] Basophil pct 0.7 % [facility] Comment: Interpretive Data Percent cell count reference ranges are not reported, since discordance with absolute values may lead to misinterpretation of CBC data. Current Interpretive Data was last revised on 2017. Testing performed by: [address] [address] Blood 01/03/2025 7:30 AM CDT 01/03/2025 7:44 AM CDT us Rasta Garcia MD LAB BLOOD ORDERABLES Final Res ult [facility] [address] [facility] Department [place] [address] * (ABNORMAL) CBC with auto differential (01/03/2025 7:30 AM CDT) WBC 10.25(H) 3.80 - 9.90 K/cumm Comment:Testing performed by : [address] [address] Hgb 7.7(L) 13.0 - 17.5 g/dL [facility] Comment:Testing performed by : [address] [address] Hct 22.5(L) 38.9 - 50.3 % [facility] Comment:Testing performed by : [address] [address] Plt 350 150 - 400 K/cumm [facility] Comment:Testing performed by : [address] [address] MPV 10.1 9.1 - 12.3 fL [facility] Comment:Testing performed by : [address] [address] RBC 2.55(L) 4.30 - 5.80 M/cumm [facility] Comment:Testing performed by : [address] [address] MCV 88.2 81.3 - 96.4 fL [facility] Comment:Testing performed by : [address] [address] MCH 30.2 27.1 - 33.3 pg [facility] Comment:Testing performed by : [address] [address] MCHC 34.2 32.3 - 35.7 g/dL [facility] SHETTY Comment:Testing performed by : [address] [address] RDW CV 22.1(H) 11.1 - 14.9 % [facility] SHE[facility] Comment:Testing performed by : [address] [address] RDW SD 67.4(H) 35.7 - 48.1 fL [facility] SHETT[facility] Comment:Testing performed by : [address] [address] NRBC abs 0.35(H) 0.00 - 0.01 K/cumm [facility] SHETTY Comment:Testing performed by : [address] [address] Blood 01/03/2025 7:30 AM CDT 01/03/2025 7:44 AM CDT Rasta Garcia MD LAB BLOOD ORDERABLES Final Res ult [place] 224928 [facility] Department [place] [address] * (ABNORMAL) Reticulocyte Count (01/03/2025 7:30 AM CDT) Retics, absolute 471(H) 20 - 87 K/cumm Comment:Testing performed by : [address] [address] Retics 18.5(H) 0.4 - 2.9 % [facility] Comment:Testing performed by : [address] [address] Reticulocyte Hgb 31.1 30.5 - 38.0 pg [facility] Comment:Testing performed by : [address] [address] Blood 01/03/2025 7:30 AM CDT 01/03/2025 7:44 AM CDT us Rasta Garcia MD LAB BLOOD ORDERABLES Final Res ult [facility] [address] [facility] Department [place] [address] * (ABNORMAL) Basic metabolic panel (01/03/2025 7:30 AM CDT) Sodium 138 135 - 145 mmol/L Comment:Testing performed by : [address] [address] Potassium, pl 3.5 3.3 - 4.9 mmol/L [facility] Comment:Testing performed by : [address] [address] Chloride 101 97 - 110 mmol/L [facility] Comment:Testing performed by : [address] [address] CO2 26 22 - 32 mmol/L [facility] Comment:Testing performed by : [address] [address] Anion gap 11 2 - 15 mmol/L [facility] Comment:Testing performed by : [address] [address] BUN <2(L) 6 - 25 mg/dL [facility] Comment:Testing performed by : [address] [address] Creatinine 0.50(L) 0.80 - 1.30 mg/dL [facility] Comment:Testing performed by : [address] [address] Glucose 106 70 - 199 mg/dL [facility] [...] was last revised 2022. Testing performed by: [address] [address] Calcium 8.8 8.5 - 10.3 mg/dL [facility] SHETTY Comment:Testing performed by : [address] [address] Blood 01/03/2025 7:30 AM CDT 01/03/2025 7:44 AM CDT us Rasta Garcia MD LAB BLOOD ORDERABLES Final Res ult Performing Organization Address City/[facility] Co de Phone Number [facility] [address] [place] [address] [employer] [place] [address] * Troponin T high-sensitivity 4-hour (01/01/2025 4:09 AM CDT) Trop T hs <6 <=22 ng/L Comment: Interpretive Data For further hscTnT resources including the diagnostic algorithm and an aid in interpretation, copy and paste this link: https://nrl.testcatalog.org/show/hsTrop Current Interpretive Data last revised 2020. Testing performed by: [address] [address] Trop T hs delta -2 ng/L [facility] Comment:Testing performed by : [address] [address] Trop T hs interp Insignificant [facility] Comment:Testing performed by : [address] [address] Blood 01/01/2025 4:09 AM CDT 01/01/2025 4:16 AM CDT us Bill Carrasquillo DO LAB BLOOD ORDERABLES Final Res ult Performing Organization Address City/[facility]/ZIP Co de Phone Number [facility] 0610 [facility] [employer] [place] [address] * XR Chest 1 Vw Portable (01/01/2025 [...] Andrew Stubbs M.D. AR: TOREY Report ID: [id number] Reading Location: [place] [address] Procedure Note Andrew Stubbs MD - 01/01/2025 [...] Andrew Stubbs M.D. AR: TOREY Report ID: [id number] Reading Location: [place] [address] Bill Carrasquillo DO IMG XR PROCEDURES Final Result * Troponin T high-sensitivity series (baseline, 2hr, 4hr, 6hr) (12/31/2024 11:57 PM CDT) Trop T hs 8 <=22 ng/L Comment: Interpretive Data For further hscTnT resources including the diagnostic algorithm and an aid in interpretation, copy and paste this link: https://nrl.testcatalog.org/show/hsTrop Current Interpretive Data last revised 2020. Testing performed by: [facility], [address] [place] [address]., [address] Blood 12/31/2024 11:5 7 PM CDT 01/01/2025 12:09 AM CDT us Bill Carrasquillo DO LAB BLOOD ORDERABLES Final Res ult [facility] [address] [facility] Department [place] [address] * eGFR (12/31/2024 11:57 PM CDT) eGFR [...] of Race in Diagnosing Kidney Disease, JASN 202). The CKD-EPI equation should not be used for patients with unstable renal function and has not been validated in children and those over 70. Current interpretive data was last reviewed 2021. Testing performed by: [facility], [address] [place] [address]., [address] Blood 12/31/2024 11:5 7 PM CDT 01/01/2025 12:09 AM CDT us Bill Carrasquillo DO LAB BLOOD ORDERABLES Final Res ult [facility] [address] [facility] Department [place] [address] * (ABNORMAL) Differential, auto (12/31/2024 11:57 PM CDT) Neutrophil abs 6.19 1.50 - 6.50 K/cumm Comment:Testing performed by : [address] [address] Imm gran abs 0.07 0.00 - 0.10 K/cumm [facility] Comment:Testing performed by : [address] [address] Lymphocyte abs 4.31(H) 0.80 - 3.30 K/cumm [facility] Comment:Testing performed by : [address] [address] Monocyte abs 1.49(H) 0.20 - 0.80 K/cumm [facility] Comment:Testing performed by : [address] [address] Eosinophil abs 0.14 0.00 - 0.50 K/cumm [facility] Comment:Testing performed by : [address] [address] Basophil abs 0.08 0.00 - 0.10 K/cumm [facility] Comment:Testing performed by : [address] [address] Neutrophil pct 50.4 % [facility] Comment: Interpretive Data Percent cell count reference ranges are not reported, since discordance with absolute values may lead to misinterpretation of CBC data. Current Interpretive Data was last revised on 2017. Testing performed by: [address] [address] Imm gran pct 0.6 % [facility] Comment: Interpretive Data Percent cell count reference ranges are not reported, since discordance with absolute values may lead to misinterpretation of CBC data. Current Interpretive Data was last revised on 2017. Testing performed by: [address] [address] Lymphocyte pct 35.1 % [facility] Comment: Interpretive Data Percent cell count reference ranges are not reported, since discordance with absolute values may lead to misinterpretation of CBC data. Current Interpretive Data was last revised on 2017. Testing performed by: [address] [address] Monocyte pct 12.1 % [facility] Comment: Interpretive Data Percent cell count reference ranges are not reported, since discordance with absolute values may lead to misinterpretation of CBC data. Current Interpretive Data was last revised on 2017. Testing performed by: [address] [address] Eosinophil pct 1.1 % [facility] Comment: Interpretive Data Percent cell count reference ranges are not reported, since discordance with absolute values may lead to misinterpretation of CBC data. Current Interpretive Data was last revised on 2017. Testing performed by: [address] [address] Basophil pct 0.7 % [facility] Comment: Interpretive Data Percent cell count reference ranges are not reported, since discordance with absolute values may lead to misinterpretation of CBC data. Current Interpretive Data was last revised on 2017. Testing performed by: [address] [address] Blood 12/31/2024 11:5 7 PM CDT 01/01/2025 12:09 AM CDT us Bill Carrasquillo DO LAB BLOOD ORDERABLES Final Res ult [facility]TT[facility] [address] [facility] Department [place] [address] * (ABNORMAL) CBC with auto differential (12/31/2024 11:57 PM CDT) WBC 12.28(H) 3.80 - 9.90 K/cumm Comment:Testing performed by : [address], [address] Hgb 7.8(L) 13.0 - 17.5 g/dL [facility] Comment:Testing performed by : [address], [address] Hct 23.2(L) 38.9 - 50.3 % [facility] Comment:Testing performed by : [address] [address] Plt 277 150 - 400 K/cumm [place] Comment:Testing performed by : [address], [address] MPV 10.0 9.1 - 12.3 fL [place] Comment:Testing performed by : [address], [address] RBC 2.65(L) 4.30 - 5.80 M/cumm [facility] Comment:Testing performed by : [address], [address] MCV 87.5 81.3 - 96.4 fL [place] Comment:Testing performed by : [address], [address] MCH 29.4 27.1 - 33.3 pg [place] Comment:Testing performed by : [address], [address] MCHC 33.6 32.3 - 35.7 g/dL [place] Comment:Testing performed by : [address], [address] RDW CV 20.6(H) 11.1 - 14.9 % [facility] Comment:Testing performed by : [address], [address] RDW SD 64.0(H) 35.7 - 48.1 fL [facility] Comment:Testing performed by : [address], [address] NRBC abs 0.06(H) 0.00 - 0.01 K/cumm [facility] Comment:Testing performed by : [address], [address] Morphologic Screen Results confirmed by manual morphology review. [facility] Comment:Testing performed by : [address] [address] Blood 12/31/2024 11:5 7 PM CDT 01/01/2025 12:09 AM CDT Bill Revelation LAB BLOOD ORDERABLES Final Res ult Performing Organization Address [facility] de Phone Number [address] [facility] [address] * (ABNORMAL) Reticulocyte Count (12/31/2024 11:57 PM CDT) Retics, absolute 410(H) 20 - 87 K/cumm Comment:Testing performed by : [address] [address] Retics 15.5(H) 0.4 - 2.9 % [facility] Comment:Testing performed by : [address] [address] Reticulocyte Hgb 30.8 30.5 - 38.0 pg [place] Comment:Testing performed by : [address] [address] Blood 12/31/2024 11:5 7 PM CDT 01/01/2025 12:09 AM CDT Bill Targazymetrevin LAB BLOOD ORDERABLES Final Res ult Performing Organization Address [facility] de Phone Number [address] [employer] [place] [address] * (ABNORMAL) Comprehensive metabolic panel (12/31/2024 11:57 PM CDT) Pathologist [facility] Sodium 137 135 - 145 mmol/L Comment:Testing performed by : [address] [address] Potassium, pl 3.2(L) 3.3 - 4.9 mmol/L [place] Comment:Testing performed by : [address] [address] Chloride 103 97 - 110 mmol/L [facility] Comment:Testing performed by : [address] [address] CO2 23 22 - 32 mmol/L CERALEJANDRA Comment:Testing performed by : [address], [place]., [address] Anion gap 11 2 - 15 mmol/L [facility] Comment:Testing performed by : [address] [address] BUN 4(L) 6 - 25 mg/dL [facility] Comment:Testing performed by : [address], [place]., [address] Creatinine 0.60(L) 0.80 - 1.30 mg/dL [facility] Comment:Testing performed by : [address] [address] Glucose 115 70 - 199 mg/dL [facility] Comment: Interpretive Data Fasting glucose >/= 126 [...] was last revised 2022. Testing performed by: [address] [address] Calcium 9.1 8.5 - 10.3 mg/dL [facility] Comment:Testing performed by : [address] [address] Bilirubin, total 5.6(H) 0.1 - 1.2 mg/dL [facility] Comment:Testing performed by : [address] [address] Protein, pl 7.9 6.5 - 8.5 g/dL [facility] Comment:Testing performed by : [address] [address] Albumin 4.1 3.5 - 5.0 g/dL [facility] SHETTY Comment:Testing performed by : [facility], [address] [place] [address]., [address] Alk phos 353(H) 40 - 130 Units/L [facility] SHETT[facility] Comment:Testing performed by : [facility], [address] [place] [address]., [address] ALT 27 7 - 55 Units/L [place] Comment:Testing performed by : [address] [address] AST 53(H) 10 - 50 Units/L [facility] Comment:Testing performed by : [facility], [address] [place] [address]., [address] Blood 12/31/2024 11:5 7 PM CDT 01/01/2025 12:09 AM CDT Bill Carrasquillo DO LAB BLOOD ORDERABLES Final Res ult Performing Organization Address [facility] de Phone Number [facility] [address] [facility] Department [place] [address] * ECG 12 lead (12/31/2024 11:51 PM CDT) Pathologist [facility] Ventricular Rate EKG/Min 107 BPM [facility] Atrial Rate [address] [facility] NV-Interval (MSEC) [address] [facility] QRS-Interval (MSEC) [address] [facility] QT-Interval (MSEC) [address] [facility] QTc [address] [facility] P Vantage [address] [facility] R Vantage [address] [facility] T Vantage [address] [facility] Diagnosis Sinus tachycardia Otherwise normal ECG When compared with ECG of 22-DEC-2024 13:08, Nonspecific T wave abnormality no longer evident in Lateral leads Confirmed by Rodrigue Fonseca M.D. ([id number]) on 01/03/2025 8:51:05 AM [facility] 12/31/2024 11:5 1 PM CDT 01/03/2025 8:51 AM CDT Bill Carrasquillo DO ECG ORDERABLES Final Result [facility] * CT Chest PE (CTA) W Contrast (12/23/2024 5:57 PM CDT) Anatomical Region Laterality Modality Body N/A Computed Tomogra phy 12/23/2024 6:07 PM CDT Impressions 12/23/2024 6:07 PM CDT 1. No large occlusive central pulmonary embolism. 2. No acute process in the chest on this motion degraded exam. Electronically signed by: Tianna Shepard M.D. Narrative 12/23/2024 6:07 PM CDT EXAMINATION: CT CHEST PE (CTA) W CONTRAST [...] the 3-D workstation and sent to the [employer] archival system. COMPARISON: 05/30/2024 FINDINGS: The study [...] lymphadenopathy. There is diffuse bilateral gynecomastia. No mediastinal lymphadenopathy. Bibasilar airspace opacities likely represent atelectasis. No pleural effusion or pneumothorax. Cholecystectomy. Osseous stigmata of sickle cell disease are again noted. Procedure Note Tianna Shepard MD - 12/23/2024 EXAMINATION: CT CHEST PE (CTA) W CONTRAST [...] the 3-D workstation and sent to the [email or web address] archival system. COMPARISON: 05/30/2024 FINDINGS: The study [...] lymphadenopathy. There is diffuse bilateral gynecomastia. No mediastinal lymphadenopathy. Bibasilar airspace opacities likely represent atelectasis. No pleural effusion or pneumothorax. Cholecystectomy. Osseous stigmata of sickle cell disease are again noted. IMPRESSION: 1. No large occlusive central pulmonary embolism. 2. No acute process in the chest on this motion degraded exam. Electronically signed by: Tianna Shepard M.D. Elijah Ramirez MD IMG CT PROCEDURES Final Result * Respiratory pathogen panel Nasopharyngeal (12/23/2024 4:03 PM CDT) Pathologist [facility] Influenza A RNA Not Detected Not Detected [facility] Influenza B RNA Not Detected Not Detected [facility] RSV RNA Not Detected Not Detected [facility] COVID-19 RNA Not Detected Not Detected [facility] Coronavirus 229E RNA Not Detected Not Detected [facility] Coronavirus HKU1 RNA Not Detected Not Detected [facility] Coronavirus NL63 RNA Not Detected Not Detected [facility] Coronavirus OC43 RNA Not Detected Not Detected [facility] Adenovirus DNA Not Detected Not Detected [facility] Metapneumovirus RNA Not Detected Not Detected [facility] Rhinovirus/Enterov irus RNA Not Detected Not Detected [facility] Parainfluenza 1 RNA Not Detected Not Detected [facility] Parainfluenza 2 RNA Not Detected Not Detected [facility] Parainfluenza 3 RNA Not Detected Not Detected [facility] Parainfluenza 4 RNA Not Detected Not Detected [facility] B. pertussis DNA Not Detected Not Detected [facility] B. parapertussis DNA Not Detected Not Detected [facility] C. pneumoniae DNA Not Detected Not Detected [facility] M. pneumoniae DNA Not Detected Not Detected [facility] Comment: Interpretive Data The [employer] FilmArray Respiratory Panel (RP2.1) assay is a multiplexed real-time PCR based nucleic acid test capable of simultaneous qualitative detection and identification of multiple respiratory viral and bacterial nucleic acids, including SARS Coronavirus 2 (the causative agent of COVID-19). The following bacteria, viruses and virus subtypes can be identified using the FilmArray RP2.1 assay: Bordetella pertussis, Bordetella parapertussis, Chlamydia pneumoniae, Mycoplasma pneumoniae, Adenovirus, SARS Coronavirus 2, seasonal coronaviruses (Coronavirus HKU1, Coronavirus NL63, Coronavirus 229E, and Coronavirus OC43), Influenza A, Influenza A subtype H1, Influenza A subtype H3, Influenza A subtype 2009 H1, Influenza B, Metapneumovirus, Parainfluenza 1, Parainfluenza 2, Parainfluenza 3, Parainfluenza 4, RSV, Rhinovirus/Enterovirus. Due to the genetic similarity between human Rhinovirus and Enterovirus, the FilmArray RP2.1 assay cannot reliably differentiate them. Coronavirus OC43 may cross-react with some isolates of Coronavirus HKU1. A dual positive result may be due to cross-reactivity or may indicate a co- infection. The detection and identification of specific viral and bacterial nucleic acids from individuals exhibiting signs and symptoms of a respiratory infection aids in the diagnosis of respiratory infection if used in conjunction with other clinical and epidemiological information. The results of this test should not be used as the sole basis for diagnosis, treatment, or other management decisions. Negative results in the setting of a respiratory illness may be due to infection with pathogens that are not detected by this test. Positive results do not rule out infection/co-infection with other organisms. The agent(s) detected by the FilmArray RP2.1 may not be the definite cause of disease. Additional testing (lab, imaging, etc.) may be necessary when evaluating a patient with possible respiratory tract infection. The FilmArray RP2.1 assay has FDA clearance for testing of [employer] swabs. The performance characteristics of this assay have been determined by [facility]. Current interpretive data was last revised on 2020. Nasopharyngeal 12/23/2024 4: 03 PM CDT 12/23/2024 4:10 PM CDT Ruthy [facility] - 12/23/2024 5:11 PM CDT Is the Patient experiencing symptoms consistent with COVID?->Yes Surveillance testing for transplant patient?->No us Elijah Ramirez MD LAB MICROBIOLOGY - GENER AL ORDERABLES Final Result [facility] [address] Department [place] [address] [facility] * XR Chest Pa Lateral 2 Vw (12/23/2024 3:34 PM CDT) Anatomical Region Laterality Modality Body, Chest N/A Computed Radiogr aphy 12/23/2024 3:38 PM CDT Impressions 12/23/2024 3:38 PM CDT Comparison is made to a prior study dated 12/22/2024. There are small lung volumes with increasing interstitial opacities which may represent a viral pneumonia or mild pulmonary edema. There is no definite pleural effusion or pneumothorax. Cardiomediastinal silhouette is mildly enlarged and stable. Osseous stigmata of sickle cell disease are again noted. Electronically signed by: Tianna Shepard M.D. Narrative 12/23/2024 3:38 PM CDT EXAMINATION: XR CHEST PA LATERAL 2 VIEWS HISTORY: Pain Procedure Note Tianna Shepard MD - 12/23/2024 EXAMINATION: XR CHEST PA LATERAL 2 VIEWS HISTORY: Pain IMPRESSION: Comparison is made to a prior study dated 12/22/2024. There are small lung volumes with increasing interstitial opacities which may represent a viral pneumonia or mild pulmonary edema. There is no definite pleural effusion or pneumothorax. Cardiomediastinal silhouette is mildly enlarged and stable. Osseous stigmata of sickle cell disease are again noted. Electronically signed by: Tianna Shepard M.D. us Elijah Ramirez MD IMG XR PROCEDURES Final Result * eGFR (12/23/2024 2:44 PM CDT) eGFR >90 >=60 mL/min/1. 73 [...] of Race in Diagnosing Kidney Disease, JASN 202). The CKD-EPI equation should not be used for patients with unstable renal function and has not been validated in children and those over 70. Current interpretive data was last reviewed 2021. Blood 12/23/2024 2:44 PM CDT 12/23/2024 2:56 PM CDT Steve García DO LAB BLOOD ORDERABLES Final Result [facility] [address] Department [place] [address] * (ABNORMAL) Differential, auto (12/23/2024 2:44 PM CDT) Neutrophil abs 4.91 1.50 - 6.50 K/cumm Imm gran abs 0.09 0.00 - 0.10 K/cumm [facility] Lymphocyte abs 3.14 0.80 - 3.30 K/cumm [facility] Monocyte abs 1.13(H) 0.20 - 0.80 K/cumm [facility] Eosinophil abs 0.17 0.00 - 0.50 K/cumm [facility] Basophil abs 0.07 0.00 - 0.10 K/cumm [facility] Neutrophil pct 51.7 % [facility] Comment: Interpretive Data Percent cell count reference ranges are not reported, since discordance with absolute values may lead to misinterpretation of CBC data. Current Interpretive Data was last revised on 2017. Imm gran pct 0.9 % [facility] Comment: Interpretive Data Percent cell count reference ranges are not reported, since discordance with absolute values may lead to misinterpretation of CBC data. Current Interpretive Data was last revised on 2017. Lymphocyte pct 33.0 % [facility] Comment: Interpretive Data Percent cell count reference ranges are not reported, since discordance with absolute values may lead to misinterpretation of CBC data. Current Interpretive Data was last revised on 2017. Monocyte pct 11.9 % [facility] Comment: Interpretive Data Percent cell count reference ranges are not reported, since discordance with absolute values may lead to misinterpretation of CBC data. Current Interpretive Data was last revised on 2017. Eosinophil pct 1.8 % [facility] Comment: Interpretive Data Percent cell count reference ranges are not reported, since discordance with absolute values may lead to misinterpretation of CBC data. Current Interpretive Data was last revised on 2017. Basophil pct 0.7 % [facility] Comment: Interpretive Data Percent cell count reference ranges are not reported, since discordance with absolute values may lead to misinterpretation of CBC data. Current Interpretive Data was last revised on 2017. Blood 12/23/2024 2:44 PM CDT 12/23/2024 2:56 PM CDT us Steve García DO LAB BLOOD ORDERABLES Final Result [facility] [address] Department [place] [address] * (ABNORMAL) Urinalysis reflex to microscopic and culture Urine (12/23/2024 2:44 PM CDT) Color, ur Yellow Yellow Clarity, ur Clear Clear [facility] Specific gravity, ur 1.010 1.003 - 1.030 [facility] pH, urine 7.0 [facility] Comment: Interpretive Data U rine pH is affected by diet, medications, systemic acid-base disturbances, and renal tubular function. pH may affect urinary stone formation. For example, urine pH below 6.0 may help reduce the tendency for calcium phosphate stones and pH greater than 6.0 may reduce the tendency for uric acid stone formation. Source: [facility] [employer] Current Interpretive Data was last revised on 2017 Protein, ur ql Negative Negative [facility] Glucose, ur ql Negative Negative [facility] Ketones, ur Negative Negative [facility] Bilirubin, ur Negative Negative [facility] Blood, ur Negative Negative [facility] Urobilinogen, ur 4.0(A) <2.0 mg/dL [facility] Nitrite, ur Negative Negative [facility] Leukocyte esterase, ur Negative Negative [facility] UA reflex comment Reflex conditions for microscopic UA and culture not met. [facility] Urine 12/23/2024 2:44 PM CDT 12/23/2024 2:45 PM CDT us Elijah Ramirez MD LAB MICROBIOLOGY - GENER AL ORDERABLES Final Result [facility] [address] Department [place] [address] * (ABNORMAL) CBC with auto differential (12/23/2024 2:44 PM CDT) WBC 9.51 3.80 - 9.90 K/cumm Hgb 8.4(L) 13.0 - 17.5 g/dL [facility] Hct 25.6(L) 38.9 - 50.3 % [facility] Plt 343 150 - 400 K/cumm [facility] MPV 10.3 9.1 - 12.3 fL [facility] RBC 2.84(L) 4.30 - 5.80 M/cumm [facility] MCV 90.1 81.3 - 96.4 fL [facility] MCH 29.6 27.1 - 33.3 pg [facility] MCHC 32.8 32.3 - 35.7 g/dL [facility] RDW CV 19.9(H) 11.1 - 14.9 % [facility] RDW SD 64.4(H) 35.7 - 48.1 fL [facility] NRBC abs 0.10(H) 0.00 - 0.01 K/cumm [facility] Morphologic Screen Results confirmed by manual morphology review. [facility] Blood 12/23/2024 2:44 PM CDT 12/23/2024 2:56 PM CDT Elijah Ramirez MD LAB BLOOD ORDERABLES Rashaun missy Result - Final Performing Organization Address [facility] Co de Phone Number [facility] [address] Department [place] [address] * (ABNORMAL) Reticulocyte Count (12/23/2024 2:44 PM CDT) [facility] Retics, absolute 450(H) 20 - 87 K/cumm Comment:Retic verified by di lution. Retics 14.5(H) 0.4 - 2.9 % [facility] Comment:Retic verified by di lution. Reticulocyte Hgb 32.5 30.5 - 38.0 pg [facility] Blood 12/23/2024 2:44 PM CDT 12/23/2024 2:56 PM CDT Elijah Ramirez MD LAB BLOOD ORDERABLES Fin al Result Performing Organization Address [facility] de Phone Number [facility] [address] [place] [address] * (ABNORMAL) Comprehensive metabolic panel (12/23/2024 2:44 PM CDT) [facility] Sodium 138 135 - 145 mmol/L Potassium, pl 3.6 3.3 - 4.9 mmol/L [facility] Chloride 104 97 - 110 mmol/L [facility] CO2 24 22 - 32 mmol/L [facility] Anion gap 10 2 - 15 mmol/L [facility] BUN 3(L) 6 - 25 mg/dL [facility] Creatinine 0.51(L) 0.80 - 1.30 mg/dL [facility] Glucose 93 70 - 199 mg/dL [facility] Comment: Interpretive Data Fasting glucose >/= 126 [...] Current interpretive data was last revised 2022. Calcium 9.0 8.5 - 10.3 mg/dL [facility] Bilirubin, total 5.9(H) 0.1 - 1.2 mg/dL [facility] Protein, pl 7.5 6.5 - 8.5 g/dL [facility] Albumin 3.9 3.5 - 5.0 g/dL [facility] Alk phos 392(H) 40 - 130 Units/L [facility] ALT 45 7 - 55 Units/L [facility] AST 71(H) 10 - 50 Units/L [facility] Blood 12/23/2024 2:44 PM CDT 12/23/2024 2:56 PM CDT Elijah Ramirez MD LAB BLOOD ORDERABLES Fin al Result Performing Organization Address [facility] Co de Phone Number [facility] [address] Department [place] [address] * ECG 12 lead (12/23/2024 12:42 PM CDT) 12/23/2024 12:4 2 PM CDT Narrative [facility] - 12/23/2024 1:33 PM CDT Vent Rate: 106 bpm RR Interval: 561 msec NV Interval: 160 msec QRS Duration: 90 msec QT Interval: 368 msec QTC Interval: 430 msec P-R-T Vantage: 64 - 31 - 15 degrees IMPRESSION: SINUS TACHYCARDIA ABNORMAL RHYTHM ECG Electronically Signed By: Celestino Dunlap [facility] Card Elijah Ramirez MD ECG ORDERABLES Final Re sult Performing Organization Address [facility] Co de Phone Number [facility] [employer] [facility] * XR Chest 1 Vw Portable (12/22/2024 1:12 PM CDT) Anatomical Region Laterality Modality Body, Chest N/A Computed Radiogr aphy 12/22/2024 1:17 PM CDT Narrative 12/22/2024 1:18 PM CDT EXAM DESCRIPTION: XR CHEST 1 [...] Gina Betancur D.O. PS: PS Report ID: [id number] Reading Location: [id number] Procedure Note Gina Betancur, DO - 12/22/2024 EXAM DESCRIPTION: XR CHEST 1 VIEW REASON FOR STUDY: hx of acute chest r/t sickle cell Came to ED for c/o sickle cell pain to bilateral legs, feet, and chest TECHNIQUE: Single frontal radiographic view(s) of the chest. COMPARISON: 12/07/2024 FINDINGS: There is cardiomegaly. There is mild prominence of thepulmonary vasculature. There is no definite evidence of a pneumothorax. There aremild patchy bibasilar airspace opacities. There is no definite evidence ofpleural effusion. The osseous structures are acutely grossly stable. IMPRESSION: 1. Cardiomegaly with mild prominence of pulmonary vasculature. 2. Mild patchy bibasilar airspace opacities, which is likely related to subsegmental atelectasis/scarring and less likely developing airspacedisease. THIS IS AN ELECTRONICALLY VERIFIED FINAL REPORT 12/22/2024 1:18 PM - Electronically signed by Gina Betancur D.O. PS: PS Report ID: [id number] Reading Location: [place] [address] Cheyanne Johnson [employer] IMG XR PROCEDURES Final Result * ECG 12 lead (12/22/2024 1:08 PM CDT) Ventricular Rate EKG/Min 97 BPM [facility] Atrial Rate 97 BPM [facility] NV-Interval (MSEC) [address] [facility] QRS-Interval (MSEC) [address] [facility] QT-Interval (MSEC) 368 ms [facility] QTc 467 ms [facility] P Vantage [address] [facility] R Vantage [address] [facility] T Vantage 49 degrees [facility] Diagnosis Normal sinus rhythm Nonspecific T wave abnormality Prolonged QT When compared with ECG of 07-DEC-2024 21:21, No significant change was found Confirmed by SULTAN PARHAM M.D. ([id number]) on 12/22/2024 5:48:18 PM [facility] 12/22/2024 1:08 PM CDT 12/22/2024 5:48 PM CDT Cheyanne Johnson [employer] ECG ORDERABLES Final Re sult [facility] * (ABNORMAL) Blood smear review (12/22/2024 12:19 PM CDT) RBC morphology Present(A) Comment:Testing performed by : [address] [address] Elliptocytes 3-7/HPF(A) [facility] SHETTY Comment:Testing performed by : [address] [address] Platelet estimate Adequate [facility] SHETTY Comment:Testing performed by : [address] [address] Blood 12/22/2024 12:1 9 PM CDT 12/22/2024 12:23 PM CDT Ang Rick MD LAB BLOOD ORDERABLES Final Result Performing Organization Address [facility] Co de Phone Number [facility] [address] [place] [address] * eGFR (12/22/2024 12:19 PM CDT) eGFR >90 >=60 mL/min/1. 73 [...] was last reviewed 2021. Testing performed by: [facility], [address] [place] [address]., [address] Blood 12/22/2024 12:1 9 PM CDT 12/22/2024 12:23 PM CDT Ang Rick MD LAB BLOOD ORDERABLES Final Result Performing Organization Address City/[facility]/ZIP Co de Phone Number [facility] [address] [place] [address] * (ABNORMAL) Differential, auto (12/22/2024 12:19 PM CDT) Neutrophil abs 4.68 1.50 - 6.50 K/cumm Comment:Testing performed by : [address], [place]., [address] Imm gran abs 0.07 0.00 - 0.10 K/cumm [facility] Comment:Testing performed by : [facility], [address] [place] [address], [place]., [address] Lymphocyte abs 3.02 0.80 - 3.30 K/cumm [facility] Comment:Testing performed by : [address], [place]., [address] Monocyte abs 0.87(H) 0.20 - 0.80 K/cumm [facility] Comment:Testing performed by : [address], [place]., [address] Eosinophil abs 0.19 0.00 - 0.50 K/cumm [facility] Comment:Testing performed by : [address], [place]., [address] Basophil abs 0.05 0.00 - 0.10 K/cumm [facility] Comment:Testing performed by : [address] [address] Neutrophil pct 52.7 % [facility] Comment: Interpretive Data Percent cell count reference ranges are not reported, since discordance with absolute values may lead to misinterpretation of CBC data. Current Interpretive Data was last revised on 2017. Testing performed by: [address] [address] Imm gran pct 0.8 % [facility] Comment: Interpretive Data Percent cell count reference ranges are not reported, since discordance with absolute values may lead to misinterpretation of CBC data. Current Interpretive Data was last revised on 2017. Testing performed by: [address] [address] Lymphocyte pct 34.0 % [facility] Comment: Interpretive Data Percent cell count reference ranges are not reported, since discordance with absolute values may lead to misinterpretation of CBC data. Current Interpretive Data was last revised on 2017. Testing performed by: [address] [address] Monocyte pct 9.8 % [facility] Comment: Interpretive Data Percent cell count reference ranges are not reported, since discordance with absolute values may lead to misinterpretation of CBC data. Current Interpretive Data was last revised on 2017. Testing performed by: [address] [address] Eosinophil pct 2.1 % [facility] Comment: Interpretive Data Percent cell count reference ranges are not reported, since discordance with absolute values may lead to misinterpretation of CBC data. Current Interpretive Data was last revised on 2017. Testing performed by: [address] [address] Basophil pct 0.6 % [facility] Comment: Interpretive Data Percent cell count reference ranges are not reported, since discordance with absolute values may lead to misinterpretation of CBC data. Current Interpretive Data was last revised on 2017. Testing performed by: [address] [address] Blood 12/22/2024 12:1 9 PM CDT 12/22/2024 12:23 PM CDT us Ang Rick MD LAB BLOOD ORDERABLES Final Result [facility] [address] [facility] Department [place] [address] * (ABNORMAL) CBC with auto differential (12/22/2024 12:19 PM CDT) Pathologist [facility] WBC 8.88 3.80 - 9.90 K/cumm Comment:Testing performed by : [address] [address] Hgb 8.4(L) 13.0 - 17.5 g/dL [facility] Comment:Testing performed by : [address] [address] Hct 24.6(L) 38.9 - 50.3 % [facility] Comment:Testing performed by : [address] [address] Plt 356 150 - 400 K/cumm [facility] Comment:Testing performed by : [address] [address] MPV 10.1 9.1 - 12.3 fL [facility] Comment:Testing performed by : [address] [address] RBC 2.82(L) 4.30 - 5.80 M/cumm [facility] SHETTY Comment:Testing performed by : [address] [address] MCV 87.2 81.3 - 96.4 fL [facility] Comment:Testing performed by : [address] [address] MCH 29.8 27.1 - 33.3 pg [facility] Comment:Testing performed by : [address] [address] MCHC 34.1 32.3 - 35.7 g/dL [facility] Comment:Testing performed by : [address] [address] RDW CV 19.9(H) 11.1 - 14.9 % [facility] Comment:Testing performed by : [address] [address] RDW SD 62.7(H) 35.7 - 48.1 fL [facility] Comment:Testing performed by : [address] [address] NRBC abs 0.12(H) 0.00 - 0.01 K/cumm [facility] Comment:Testing performed by : [address] [address] Blood 12/22/2024 12:1 9 PM CDT 12/22/2024 12:23 PM CDT us Ang Rick MD LAB BLOOD ORDERABLES Edite d Result - Final [facility] [address] [facility] Department of Laboratories [place], [place] [id number] * (ABNORMAL) Reticulocyte Count (12/22/2024 12:19 PM CDT) Retics, absolute 415(H) 20 - 87 K/cumm Comment:Testing performed by : [address] [address] Retics 14.7(H) 0.4 - 2.9 % [facility] Comment:Testing performed by : [address] [address] Reticulocyte Hgb 27.9(L) 30.5 - 38.0 pg [facility] SHETTY Comment:Testing performed by : [address] [address] Blood 12/22/2024 12:1 9 PM CDT 12/22/2024 12:23 PM CDT us Ang Rick MD LAB BLOOD ORDERABLES Final Result Performing Organization Address City/State/[facility] Co de Phone Number [facility] [address] Department [place] [address] * (ABNORMAL) Comprehensive metabolic panel (12/22/2024 12:19 PM CDT) Sodium 139 135 - 145 mmol/L Comment:Testing performed by : [address] [address] Potassium, pl 3.5 3.3 - 4.9 mmol/L [facility] Comment:Testing performed by : [address] [address] Chloride 103 97 - 110 mmol/L [facility] Comment:Testing performed by : [address] [address] CO2 24 22 - 32 mmol/L [facility] Comment:Testing performed by : [address] [address] Anion gap 12 2 - 15 mmol/L [facility] Comment:Testing performed by : [address] [address] BUN 3(L) 6 - 25 mg/dL [facility] Comment:Testing performed by : [address] [address] Creatinine 0.57(L) 0.80 - 1.30 mg/dL [facility] Comment:Testing performed by : [address] [address] Glucose 141 70 - 199 mg/dL [facility] [...] was last revised 2022. Testing performed by: [address] [address] Calcium 9.1 8.5 - 10.3 mg/dL [facility] Comment:Testing performed by : [address] [address] Bilirubin, total 5.4(H) 0.1 - 1.2 mg/dL [facility] Comment:Testing performed by : [address] [address] Protein, pl 7.9 6.5 - 8.5 g/dL [facility] Comment:Testing performed by : [address] [address] Albumin 4.4 3.5 - 5.0 g/dL [facility] Comment:Testing performed by : [address] [address] Alk phos 391(H) 40 - 130 Units/L [facility] Comment:Testing performed by : [address] [address] ALT 50 7 - 55 Units/L [facility] Comment:Testing performed by : [address] [address] AST 86(H) 10 - 50 Units/L [facility] Comment:Testing performed by : [address] [address] Blood 12/22/2024 12:1 9 PM CDT 12/22/2024 12:23 PM CDT us Ang Rick MD LAB BLOOD ORDERABLES Final Result Performing Organization Address [facility] de Phone Number [facility] [address] [address] * eGFR (12/08/2024 9:50 AM CDT) Pathologist [facility] eGFR >90 >=60 mL/min/1. 73 m2 Comment: [...] Current interpretive data was last reviewed 2021. Blood 12/08/2024 9:50 AM CDT 12/08/2024 9:55 AM CDT us Rasta Garcia MD LAB BLOOD ORDERABLES Final Res ult Performing Organization Address [facility] Co de Phone Number [facility] [address] [employer] [place] [address] * (ABNORMAL) Comprehensive metabolic panel (12/08/2024 9:50 AM CDT) [facility] Sodium 137 135 - 145 mmol/L Potassium, pl 3.7 3.3 - 4.9 mmol/L [facility] Comment:Hemolyzed; Potassium value may be falsely elevated by as much as 1.0 mmol/L. Suggest redraw and reanalysis. Chloride 101 97 - 110 mmol/L [facility] CO2 24 22 - 32 mmol/L [facility] Anion gap 12 2 - 15 mmol/L [facility] BUN 4(L) 6 - 25 mg/dL [facility] Creatinine 0.53(L) 0.80 - 1.30 mg/dL [facility] Glucose 109 70 - 199 mg/dL [facility] Comment: Interpretive Data Fasting glucose >/= 126 [...] Current interpretive data was last revised 2022. Calcium 8.8 8.5 - 10.3 mg/dL [facility] Bilirubin, total 3.3(H) 0.1 - 1.2 mg/dL [facility] Protein, pl 7.8 6.5 - 8.5 g/dL [facility] Albumin 3.9 3.5 - 5.0 g/dL [facility] Alk phos 416(H) 40 - 130 Units/L [facility] ALT 35 7 - 55 Units/L [facility] AST 63(H) 10 - 50 Units/L [facility] Comment:Hemolyzed; result ma y be falsely elevated Blood 12/08/2024 9:50 AM CDT 12/08/2024 9:55 AM CDT us Rasta Garcia MD LAB BLOOD ORDERABLES Final Res ult [facility] [address] [facility] Department [place] [address] * Troponin T high-sensitivity series (baseline, 2hr, 4hr, 6hr) (12/07/2024 9:52 PM CDT) Trop T hs <6 <=22 ng/L Comment: Interpretive Data For further hscTnT resources including the diagnostic algorithm and an aid in interpretation, copy and paste this link: https://nrl.testcatalog.org/show/hsTrop Current Interpretive Data last revised 2020. Blood 12/07/2024 9:52 PM CDT 12/07/2024 9:57 PM CDT Guy Bourgeois Tomasz HO LAB BLOOD ORDERABLES Final R esult Performing Organization Address City/[facility] Co de Phone Number KENYETTA[address] [employer] [place] [address] * Sepsis Lactate w/ Reflex (12/07/2024 9:52 PM CDT) Sepsis Lactate 1.5 0.7 - 2.0 mmol/L Blood 12/07/2024 9:52 PM CDT 12/07/2024 9:57 PM CDT Guy HO LAB BLOOD ORDERABLES Final R esult Performing Organization Address [facility] de Phone Number [address] [address] * eGFR (12/07/2024 9:52 PM CDT) eGFR >90 >=60 mL/min/1. 73 [...] Current interpretive data was last reviewed 2021. Blood 12/07/2024 9:52 PM CDT 12/07/2024 9:57 PM CDT us Nitza Oliver MD LAB BLOOD ORDERABLES F inal Result Performing Organization Address City/[facility] Co de Phone Number [address] [place] [employer] [place] [address] * (ABNORMAL) CBC with auto differential (12/07/2024 9:52 PM CDT) WBC 15.51(H) 3.80 - 9.90 K/cumm Hgb 8.8(L) 13.0 - 17.5 g/dL [facility] Hct 26.3(L) 38.9 - 50.3 % [facility] Plt 368 150 - 400 K/cumm [facility] MPV 9.7 9.1 - 12.3 fL [facility] RBC 3.04(L) 4.30 - 5.80 M/cumm [facility] MCV 86.5 81.3 - 96.4 fL [facility] MCH 28.9 27.1 - 33.3 pg [facility] MCHC 33.5 32.3 - 35.7 g/dL [facility] RDW CV 18.3(H) 11.1 - 14.9 % [facility] RDW SD 57.4(H) 35.7 - 48.1 fL [facility] NRBC abs 0.05(H) 0.00 - 0.01 K/cumm [facility] Blood 12/07/2024 9:52 PM CDT 12/07/2024 9:57 PM CDT us Lala Ace MD LAB BLOOD ORDERABLES Rashaun missy Result - Final Performing Organization Address [facility] Co de Phone Number [address] [place] [employer] [place] [address] * (ABNORMAL) Manual Differential (12/07/2024 9:52 PM CDT) [facility] Differential Manual Cells Counted 100 [facility] Neutrophil abs 12.10(H) 1.50 - 6.50 K/cumm [facility] Lymphocyte abs 2.64 0.80 - 3.30 K/cumm [facility] Monocyte abs 0.78 0.20 - 0.80 K/cumm [facility] Neutrophil pct 78.0 % [facility] Comment: Interpretive Data Percent cell count reference ranges are not reported, since discordance with absolute values may lead to misinterpretation of CBC data. Current Interpretive Data was last revised on 2017. Lymphocyte pct 17.0 % [facility] Comment: Interpretive Data Percent cell count reference ranges are not reported, since discordance with absolute values may lead to misinterpretation of CBC data. Current Interpretive Data was last revised on 2017. Monocyte pct 5.0 % [facility] Comment: Interpretive Data Percent cell count reference ranges are not reported, since discordance with absolute values may lead to misinterpretation of CBC data. Current Interpretive Data was last revised on 2017. RBC morphology Present(A) [facility] Polychromasia 8-15/HPF(A) [facility] Sickle cells 1-2/HPF(A) [facility] Elliptocytes 8-15/HPF(A) [facility] Platelet estimate Automated Count Confirmed [facility] Giant platelets Present(A) [facility] Blood 12/07/2024 9:52 PM CDT 12/07/2024 9:57 PM CDT Lala Ace MD LAB BLOOD ORDERABLES Fin al Result [facility] [address] [facility] Department of Laboratories [place], [place] [id number] * (ABNORMAL) Reticulocyte Count (12/07/2024 9:52 PM CDT) [facility] Retics, absolute 237(H) 20 - 87 K/cumm Retics 7.8(H) 0.4 - 2.9 % [facility] Reticulocyte Hgb 35.9 30.5 - 38.0 pg [facility] Blood 12/07/2024 9:52 PM CDT 12/07/2024 9:57 PM CDT Lala Ace MD LAB BLOOD ORDERABLES Fin al Result [facility] [address] [facility] Department [place] [address] * (ABNORMAL) Comprehensive metabolic panel (12/07/2024 9:52 PM CDT) Pathologist [facility] Sodium 137 135 - 145 mmol/L Potassium, pl 3.5 3.3 - 4.9 mmol/L [facility] Chloride 102 97 - 110 mmol/L [facility] CO2 24 22 - 32 mmol/L [facility] Anion gap 11 2 - 15 mmol/L [facility] BUN 4(L) 6 - 25 mg/dL [facility] Creatinine 0.56(L) 0.80 - 1.30 mg/dL [facility] Glucose 114 70 - 199 mg/dL [facility] Comment: Interpretive Data Fasting glucose >/= 126 [...] Current interpretive data was last revised 2022. Calcium 9.3 8.5 - 10.3 mg/dL [facility] Bilirubin, total 3.1(H) 0.1 - 1.2 mg/dL [facility] Protein, pl 8.8(H) 6.5 - 8.5 g/dL [facility] Albumin 4.5 3.5 - 5.0 g/dL [facility] Alk phos 472(H) 40 - 130 Units/L [facility] ALT 44 7 - 55 Units/L [facility] AST 73(H) 10 - 50 Units/L [facility] Blood 12/07/2024 9:52 PM CDT 12/07/2024 9:57 PM CDT us Nitza Oliver MD LAB BLOOD ORDERABLES F inal Result [facility] [address] [facility] Department [place] [address] * XR Chest 1 View (12/07/2024 9:35 PM CDT) Anatomical Region Laterality Modality Body, Chest N/A Computed Radiogr aphy 12/07/2024 9:51 PM CDT Narrative 12/07/2024 9:57 PM CDT EXAM DESCRIPTION: XR CHEST 1 VIEW REASON FOR STUDY: chest pain Pt states, I was just at [facility] from October 29 until yesterday when he [...] upright AP view of the chest. COMPARISON: 11/03/2024 FINDINGS: LUNGS AND PLEURA: Mild diffuse interstitial edema. HEART/MEDIASTINUM: Trachea midline. Cardiac silhouette normal in size. Mediastinal contours appear normal. BONES: Unremarkable. CHEST WALL: Unremarkable. UPPER ABDOMEN: Unremarkable. IMPRESSION: Mild diffuse interstitial coarsening may be related to sickle cell disease. No focal opacity is seen. THIS IS AN ELECTRONICALLY VERIFIED FINAL REPORT 12/07/2024 9:57 PM - Electronically signed by Andrew LEMA T: Report ID: [id number] Reading Location: [id number] Procedure Note Andrew Stubbs MD - 12/07/2024 EXAM DESCRIPTION: XR CHEST 1 VIEW REASON FOR STUDY: chest pain Pt states, I was just at [facility] from October 29 until yesterdaywhen he was discharged for sickle cell crisis and acute chest syndrome. Pt comesin today for c/o CP, BUE and BLE pain. Pt states the pain started again todayand progressed throughout the day. Pt ambulatory to ED, AAOx4, PWD, NAD. Pt states he took his meds for his sickle cell and they are not helping. TECHNIQUE: Portable upright AP view of the chest. COMPARISON: 11/03/2024 FINDINGS: LUNGS AND PLEURA: Mild diffuse interstitial edema. HEART/MEDIASTINUM: Trachea midline. Cardiac silhouette normal in size. Mediastinal contours appear normal. BONES: Unremarkable. CHEST WALL: Unremarkable. UPPER ABDOMEN: Unremarkable. IMPRESSION: Mild diffuse interstitial coarsening may be related to sicklecell disease. No focal opacity is seen. THIS IS AN ELECTRONICALLY VERIFIED FINAL REPORT 12/07/2024 9:57 PM - Electronically signed by Andrew LEMA T: Report ID: [id number] Reading Location: [place] [address] Nitza Oliver MD IMG XR PROCEDURES Stephanie l Result * (ABNORMAL) Urinalysis reflex to microscopic and culture Urine (12/07/2024 9:33 PM CDT) Color, ur Yellow Yellow Clarity, ur Clear Clear [facility] Specific gravity, ur 1.011 1.003 - 1.030 [facility] pH, urine 6.5 [facility] Comment: Interpretive Data U rine pH is affected by diet, medications, systemic acid-base disturbances, and renal tubular function. pH may affect urinary stone formation. For example, urine pH below 6.0 may help reduce the tendency for calcium phosphate stones and pH greater than 6.0 may reduce the tendency for uric acid stone formation. Source: [facility] [employer] Current Interpretive Data was last revised on 2017 Protein, ur ql Negative Negative [facility] Glucose, ur ql Negative Negative [facility] Ketones, ur Negative Negative [facility] Bilirubin, ur Negative Negative [facility] Blood, ur Negative Negative [facility] Urobilinogen, ur 2.0(A) <2.0 mg/dL [facility] Nitrite, ur Negative Negative [facility] Leukocyte esterase, ur Negative Negative [facility] UA reflex comment Reflex conditions for microscopic UA and culture not met. [facility] Urine 12/07/2024 9:33 PM CDT 12/07/2024 9:41 PM CDT us Lala Ace MD LAB MICROBIOLOGY - GENER AL ORDERABLES Final Result [facility] [address] [facility] Department [place] [address] * ECG 12 lead (12/07/2024 9:21 PM CDT) Ventricular Rate EKG/Min 115 BPM [facility] Atrial Rate [address] [facility] NV-Interval (MSEC) [address] [facility] QRS-Interval (MSEC) [address] [facility] QT-Interval (MSEC) [address] [facility] QTc 453 ms [facility] P Vantage 44 degrees [facility] R Vantage 11 degrees [facility] T Vantage 16 degrees [facility] Diagnosis Sinus tachycardia Otherwise normal ECG When compared with ECG of 05-OCT-2024 05:33, Limb lead reversal corrected Confirmed by NING LEON M.D. ([id number]) on 12/08/2024 8:06:53 PM [facility] 12/07/2024 9:21 PM CDT 12/08/2024 8:06 PM CDT us Lala Ace MD ECG ORDERABLES Final Re sult Performing Organization Address [facility] Co de Phone Number [facility] * eGFR (11/08/2024 12:50 PM CDT) eGFR >90 >=60 mL/min/1. 73 [...] of Race in Diagnosing Kidney Disease, JASN 202). The CKD-EPI equation should not be used for patients with unstable renal function and has not been validated in children and those over 70. Current interpretive data was last reviewed 2021. Blood 11/08/2024 12:5 0 PM CDT 11/08/2024 12:57 PM CDT us Shahida HO LAB BLOOD ORDERABLES F inal Result [facility] [address] Department [place] [address] * (ABNORMAL) CBC without differential (11/08/2024 12:50 PM CDT) WBC 13.40(H) 3.80 - 9.90 K/cumm Hgb 7.6(L) 13.0 - 17.5 g/dL [facility] Hct 23.3(L) 38.9 - 50.3 % [facility] Plt 296 150 - 400 K/cumm [facility] MPV 12.2 9.1 - 12.3 fL [facility] RBC 2.61(L) 4.30 - 5.80 M/cumm [facility] MCV 89.3 81.3 - 96.4 fL [facility] MCH 29.1 27.1 - 33.3 pg [facility] MCHC 32.6 32.3 - 35.7 g/dL [facility] RDW CV 17.1(H) 11.1 - 14.9 % [facility] RDW SD 55.5(H) 35.7 - 48.1 fL [facility] NRBC abs 0.19(H) 0.00 - 0.01 K/cumm [facility] Morphologic Screen Results confirmed by manual morphology review. [facility] Blood 11/08/2024 12:5 0 PM CDT 11/08/2024 12:55 PM CDT us Geovanni HO LAB BLOOD ORDERABLES Final R esult Performing Organization Address City/[facility]/ZIP Co de Phone Number [facility] [address] [place] [address] * (ABNORMAL) Basic metabolic panel (11/08/2024 12:50 PM CDT) Sodium 140 135 - 145 mmol/L Potassium, pl 2.7(C) 3.3 - 4.9 mmol/L [facility] Comment:Critical Result call ed to and read back by Nelson Nelson, DATE: 2024-11-08 13:39:34 BY: Mac Gustafson Chloride 103 97 - 110 mmol/L [facility] CO2 26 22 - 32 mmol/L [facility] Anion gap 11 2 - 15 mmol/L [facility] BUN 2(L) 6 - 25 mg/dL [facility] Creatinine 0.48(L) 0.80 - 1.30 mg/dL [facility] Comment:Icteric sample, test results may be affected. Glucose 111 70 - 199 mg/dL [facility] Comment: Interpretive Data Fasting glucose [...] Current interpretive data was last revised 2022. Calcium 8.9 8.5 - 10.3 mg/dL [facility] Blood 11/08/2024 12:5 0 PM CDT 11/08/2024 12:55 PM CDT Geovanni HO LAB BLOOD ORDERABLES Final R esult Performing Organization Address City/[facility]/ZIP Co de Phone Number [facility] TERAN [address] [place] [address] * Type and screen (11/07/2024 2:51 PM CDT) ABO Rh A Positive Yesenia, indirect Negative [facility] Blood 11/07/2024 2:51 PM CDT 11/07/2024 3:20 PM CDT Narrative [facility] CH - 11/07/2024 4:18 PM CDT Has the patient had Daratumumab or Isatuximab in the past 6 months?->Unknown Geovanni HO LAB BLOOD BANK TEST ORDERABL ES Final Result Performing Organization Address [facility] Co de Phone Number [facility] [address] Department [place] [address] * (ABNORMAL) Urinalysis reflex to microscopic and culture Urine (11/07/2024 2:43 PM CDT) Color, ur Yellow Yellow Clarity, ur Clear Clear [facility] Specific gravity, ur 1.005 1.003 - 1.030 [facility] pH, urine 7.0 [facility] Comment: Interpretive Data U rine pH is affected by diet, medications, systemic acid-base disturbances, and renal tubular function. pH may affect urinary stone formation. For example, urine pH below 6.0 may help reduce the tendency for calcium phosphate stones and pH greater than 6.0 may reduce the tendency for uric acid stone formation. Source: [facility] Current Interpretive Data was last revised on 2017 Protein, ur ql Negative Negative [facility] Glucose, ur ql Negative Negative [facility] Ketones, ur Negative Negative [facility] Bilirubin, ur Negative Negative [facility] Blood, ur Negative Negative [facility] Urobilinogen, ur 2.0(A) <2.0 mg/dL [facility] Nitrite, ur Negative Negative [facility] Leukocyte esterase, ur Negative Negative [facility] UA reflex comment Reflex conditions for microscopic UA and culture not met. [facility] Urine 11/07/2024 2:43 PM CDT 11/07/2024 3:04 PM CDT Alban Brothers MD LAB MICROBIOLOGY - GENERAL ORDERABLES Final Result [facility] [id number] [address] [facility] [employer] [place] [address] * (ABNORMAL) Protein / creatinine ratio, urine, random (11/07/2024 2:43 PM CDT) Pathologist [facility] Protein, ur, quant 8.0 mg/dL Comment: Interpretive Data No reference range established. Current interpretive data was last revised 2018. Creatinine Ur 24.0 mg/dL [facility] Comment: Interpretive Data No reference range established. Current interpretive data was last revised 2018. Protein/creatinin e ratio 333.3(H) 0.0 - 180.0 mg/g CR [facility] Urine 11/07/2024 2:43 PM CDT 11/07/2024 2:55 PM CDT Alban Brothers MD LAB URINE ORDERABLES Final Result Performing Organization Address [facility] de Phone Number [facility] [address] [address] [facility] [employer] [place] [address] * Albumin Creatinine Ratio, Urine (11/07/2024 2:43 PM CDT) [facility] Albumin Ur <12.0 mg/L Comment: Interpretive Data No reference range established. Current interpretive data was last revised 2018. Creatinine Ur 24.0 mg/dL [facility] Comment: Interpretive Data No reference range established. Current interpretive data was last revised 2018. Albumin Creatinine Ratio, Ur See Comment 1 - 29 [facility] Comment:Unable to calculate Urine 11/07/2024 2:43 PM CDT 11/07/2024 2:55 PM CDT Alban Brothers MD LAB URINE ORDERABLES Final Result Performing Organization Address [facility] Co de Phone Number [facility] [address] [address] [facility] [place] [address] * Sodium, urine, random (11/07/2024 2:43 PM CDT) Sodium, ur 88 mmol/L Comment: Interpretive Data No reference range established. Current interpretive data was last revised 2018. Urine 11/07/2024 2:43 PM CDT 11/07/2024 2:55 PM CDT Alban Brothers MD LAB URINE ORDERABLES Final Result Performing Organization Address [facility] Co de Phone Number [facility] [address] [address] Department [place] [employer] [place] [address] * Potassium, urine, random (11/07/2024 2:43 PM CDT) Potassium conc, ur 7.8 mmol/L Comment: Interpretive Data No reference range established. Current interpretive data was last revised 2018. Urine 11/07/2024 2:43 PM CDT 11/07/2024 2:55 PM CDT Alban Brothers MD LAB URINE ORDERABLES Final Result Performing Organization Address [facility] Co de Phone Number [facility] [address] [address] [employer] [place] [address] * Osmolality, urine (11/07/2024 2:43 PM CDT) Osmo, ur 238 mOsm/kg Comment:Testing performed by : [facility], [address] [place] [address] Urine 11/07/2024 2:43 PM CDT 11/07/2024 4:43 PM CDT us Alban Brothers MD LAB URINE ORDERABLES Final Result Performing Organization Address [facility] Co de Phone Number [facility] [address] [address] Department [place] [employer] [place] [address] * Chloride, urine, random (11/07/2024 2:43 PM CDT) Chloride, ur 78 mmol/L Comment: Interpretive Data No reference range established. Current interpretive data was last revised 2018. Urine 11/07/2024 2:43 PM CDT 11/07/2024 2:55 PM CDT Alban Brothers MD LAB URINE ORDERABLES Final Result Performing Organization Address [facility] Co de Phone Number [facility] [address] [address] Department [place] [employer] [place] [address] * eGFR (11/07/2024 5:14 AM CDT) eGFR >90 >=60 mL/min/1. 73 [...] of Race in Diagnosing Kidney Disease, JASN 202). The CKD-EPI equation should not be used for patients with unstable renal function and has not been validated in children and those over 70. Current interpretive data was last reviewed 2021. Blood 11/07/2024 5:14 AM CDT 11/07/2024 5:21 AM CDT Shahida HO LAB BLOOD ORDERABLES F inal Result Performing Organization Address [facility] Co de Phone Number [facility] [address] [address] [place] [address] * (ABNORMAL) CBC without differential (11/07/2024 5:14 AM CDT) WBC 11.41(H) 3.80 - 9.90 K/cumm Hgb 7.0(L) 13.0 - 17.5 g/dL [facility] Hct 22.3(L) 38.9 - 50.3 % [facility] Plt 172 150 - 400 K/cumm [facility] MPV 12.2 9.1 - 12.3 fL [facility] RBC 2.46(L) 4.30 - 5.80 M/cumm [facility] MCV 90.7 81.3 - 96.4 fL [facility] MCH 28.5 27.1 - 33.3 pg [facility] MCHC 31.4(L) 32.3 - 35.7 g/dL [facility] RDW CV 16.9(H) 11.1 - 14.9 % [facility] RDW SD 55.5(H) 35.7 - 48.1 fL [facility] NRBC abs 0.45(H) 0.00 - 0.01 K/cumm [facility] Blood 11/07/2024 5:14 AM CDT 11/07/2024 5:22 AM CDT Geovanni HO LAB BLOOD ORDERABLES Final R esult Performing Organization Address City/[facility] Co de Phone Number [facility] [address] [place] [place] [address] * Phosphorus (11/07/2024 5:14 AM CDT) [facility] Phosphorus, pl 3.0 2.3 - 4.5 mg/dL Blood 11/07/2024 5:14 AM CDT 11/07/2024 5:21 AM CDT Shahida HO LAB BLOOD ORDERABLES F inal Result Performing Organization Address [facility] Co de Phone Number [facility] [address] [address] [facility] [employer] [place] [address] * Magnesium (11/07/2024 5:14 AM CDT) Magnesium 2.0 1.4 - 2.5 mg/dL Blood 11/07/2024 5:14 AM CDT 11/07/2024 5:21 AM CDT Shahida HO LAB BLOOD ORDERABLES F inal Result Performing Organization Address [facility] de Phone Number [facility] [address] [address] [facility] [employer] [place], [place] [id number] * (ABNORMAL) Hepatic function panel (11/07/2024 5:14 AM CDT) Bilirubin, total 2.5(H) 0.1 - 1.2 mg/dL Bilirubin, direct 1.5(H) 0.1 - 0.3 mg/dL [facility] Protein, pl 7.1 6.5 - 8.5 g/dL [facility] Albumin 3.0(L) 3.5 - 5.0 g/dL [facility] Alk phos 363(H) 40 - 130 Units/L [facility] ALT 32 7 - 55 Units/L [facility] AST 60(H) 10 - 50 Units/L [facility] Blood 11/07/2024 5:14 AM CDT 11/07/2024 5:21 AM CDT Geovanni HO LAB BLOOD ORDERABLES Final R esult Performing Organization Address [facility] Co de Phone Number [facility] [address] [address] [employer] [place] [address] * (ABNORMAL) Basic metabolic panel (11/07/2024 5:14 AM CDT) Sodium 140 135 - 145 mmol/L Potassium, pl 2.9(L) 3.3 - 4.9 mmol/L [facility] Chloride 102 97 - 110 mmol/L [facility] CO2 26 22 - 32 mmol/L [facility] Anion gap 12 2 - 15 mmol/L [facility] BUN 3(L) 6 - 25 mg/dL [facility] Creatinine 0.49(L) 0.80 - 1.30 mg/dL [facility] Comment:Icteric sample, test results may be affected. Glucose 131 70 - 199 mg/dL [facility] Comment: Interpretive Data Fasting glucose [...] Current interpretive data was last revised 2022. Calcium 8.4(L) 8.5 - 10.3 mg/dL [facility] Blood 11/07/2024 5:14 AM CDT 11/07/2024 5:21 AM CDT Geovanni HO LAB BLOOD ORDERABLES Final R esult [facility] [address] [address] [place] [address] * Urinalysis reflex to microscopic and culture Urine (2024 3:45 PM CDT) Color, ur Yellow Yellow Clarity, ur Clear Clear [facility] Specific gravity, ur 1.003 1.003 - 1.030 [facility] pH, urine 7.5 [facility] Comment: Interpretive Data U rine pH is affected by diet, medications, systemic acid-base disturbances, and renal tubular function. pH may affect urinary stone formation. For example, urine pH below 6.0 may help reduce the tendency for calcium phosphate stones and pH greater than 6.0 may reduce the tendency for uric acid stone formation. Source: [facility] [employer] Current Interpretive Data was last revised on 2017 Protein, ur ql Negative Negative [facility] Glucose, ur ql Negative Negative [facility] Ketones, ur Negative Negative [facility] Bilirubin, ur Negative Negative [facility] Blood, ur Negative Negative [facility] Urobilinogen, ur <2.0 <2.0 mg/dL CERNER Nitrite, ur Negative Negative [facility] Leukocyte esterase, ur Negative Negative [facility] UA reflex comment Reflex conditions for microscopic UA and culture not met. [facility] Urine 2024 3:45 PM CDT 2024 3:53 PM CDT us Eric López MD LAB MICROBIOLOGY - [facility] Final Result [facility] [address] [address] [place] [address] * (ABNORMAL) Differential, auto (2024 3:34 PM CDT) Neutrophil abs 6.80(H) 1.50 - 6.50 K/cumm Imm gran abs 0.09 0.00 - 0.10 K/cumm [facility] Lymphocyte abs 2.12 0.80 - 3.30 K/cumm [facility] Monocyte abs 0.94(H) 0.20 - 0.80 K/cumm [facility] Eosinophil abs 0.14 0.00 - 0.50 K/cumm [facility] Basophil abs 0.03 0.00 - 0.10 K/cumm [facility] Neutrophil pct 67.2 % [facility] Comment: Differential consistent with previous result. Interpretive Data Percent cell count reference ranges are not reported, since discordance with absolute values may lead to misinterpretation of CBC data. Current Interpretive Data was last revised on 2017. Imm gran pct 0.9 % [facility] Comment: Interpretive Data Percent cell count reference ranges are not reported, since discordance with absolute values may lead to misinterpretation of CBC data. Current Interpretive Data was last revised on 2017. Lymphocyte pct 20.9 % [facility] Comment: Interpretive Data Percent cell count reference ranges are not reported, since discordance with absolute values may lead to misinterpretation of CBC data. Current Interpretive Data was last revised on 2017. Monocyte pct 9.3 % [facility] Comment: Interpretive Data Percent cell count reference ranges are not reported, since discordance with absolute values may lead to misinterpretation of CBC data. Current Interpretive Data was last revised on 2017. Eosinophil pct 1.4 % [facility] Comment: Interpretive Data Percent cell count reference ranges are not reported, since discordance with absolute values may lead to misinterpretation of CBC data. Current Interpretive Data was last revised on 2017. Basophil pct 0.3 % [facility] Comment: Interpretive Data Percent cell count reference ranges are not reported, since discordance with absolute values may lead to misinterpretation of CBC data. Current Interpretive Data was last revised on 2017. Blood 2024 3:34 PM CDT 2024 3:38 PM CDT us Bradley Isaacs NP LAB BLOOD ORDERABLES Final Result [facility] [address] [address] [place] [address] * Pro B-type natriuretic peptide (2024 3:34 PM CDT) NT-proBNP 66 <=300 pg/mL Comment: Interpretive Comments: A. Dyspnea in Acute Care Setting All Ages: < 300 pg/ml, acute heart failure unlikely. < 50 yrs: 300 - 450 pg/ml, further investigation warranted. > 450 pg/ml, acute heart failure likely. 50 - 74 yrs: 300 - 900 pg/ml, further investigation warranted. > 900 pg/ml, acute heart failure likely . > or = 75 yrs: 450 - 1800 pg/ml, further investigation warranted. > 1800 pg/ml, acute heart failure likely. B. Non-acute Setting < 75 yrs < 125 pg/ml, rules out heart failure. > or = 125 pg/ml, further investigation warranted. > or = 75 yrs < 450 pg/ml, rules out heart failure. > or = 450 pg/ml, further investigation warranted. - Knowledge of each individual patient's NT-proBNP range may be more useful than using similar cut-points for every patient. Please note that marked elevations in NT-proBNP levels may be observed in state other than Left Ventricular Congestive Failure, including: acute coronary syndromes, right heart strain/failure (including pulmonary embolism and cor pulmonale), critical illness, renal failure, as well as advanced age. - References: 1. Lola TYSON et.al. Eur Heart J. 2006:27:330-337. 2. Diony RW, Dawit AM. J. AM Mikayla Cardiol: Cardiovasc Imag. 2009;2: 216- 225. Interpretive Data Last Revised Date: 2018. Blood 2024 3:34 PM CDT 2024 3:38 PM CDT Eric López MD LAB BLOOD ORDERABLES Final Resu lt [facility] [address] [address] [place] [address] * (ABNORMAL) CBC with auto differential (2024 3:34 PM CDT) WBC 10.12(H) 3.80 - 9.90 K/cumm Hgb 7.5(L) 13.0 - 17.5 g/dL [facility] Hct 23.0(L) 38.9 - 50.3 % [facility] Plt 103(L) 150 - 400 K/cumm [facility] MPV 10.8 9.1 - 12.3 fL [facility] RBC 2.56(L) 4.30 - 5.80 M/cumm C[facility]ER MCV 89.8 81.3 - 96.4 fL [facility] MCH 29.3 27.1 - 33.3 pg CERNER MCHC 32.6 32.3 - 35.7 g/dL [facility]ER RDW CV 17.0(H) 11.1 - 14.9 % [facility] RDW SD 54.7(H) 35.7 - 48.1 fL [facility] NRBC abs 2.49(H) 0.00 - 0.01 K/cumm [facility] Blood 2024 3:34 PM CDT 2024 3:38 PM CDT Bradley Isaacs NP LAB BLOOD ORDERABLES Final Result Performing Organization Address City/[facility]/ZIP Co de Phone Number [facility] JEFFRY [address] [address] [place] [address] * (ABNORMAL) Reticulocyte Count (2024 3:34 PM CDT) Retics, absolute 160(H) 20 - 87 K/cumm Retics 6.3(H) 0.4 - 2.9 % [facility] Reticulocyte Hgb 25.1(L) 30.5 - 38.0 pg [facility] Blood 2024 3:34 PM CDT 11/06/2024 1:58 PM CDT Eric López MD LAB BLOOD ORDERABLES Final Resu lt Performing Organization Address [facility] Co de Phone Number KEN[facility]JANDRA [address] [address] Department [employer] [place] [address] * Type and screen (2024 3:34 PM CDT) ABO Rh A Positive Yesenia, indirect Negative [facility] Blood 2024 3:34 PM CDT 2024 4:05 PM CDT N[facility]ative [facility] 2024 5:15 PM CDT Has the patient had Daratumumab or Isatuximab in the past 6 months?->Unknown Geovanni HO LAB BLOOD BANK TEST ORDERABL ES Final Result Performing Organization Address [facility] Co de Phone Number [facility] [address] [address] Department [place] [employer] [place] [address] * Transfuse RBC (11/04/2024 3:46 PM CDT) Blood Geovanni HO BLOOD TRANSFUSION ORDERABLES Final Result Performing Organization Address [facility] Co de Phone Number KENY[facility]JANDRA [address] [address] Department [employer] [place] [address] * Critical Care (11/04/2024 8:26 AM CDT) Narrative Miller Horton MD - 11/04/2024 8:26 AM CDT Miller Horton MD 2024 6:58 AM Critical Care Performed by: Geovanni Falcon PA Authorized by: Geovanni Falcon PA CRITICAL CARE: Team: ALTAGRACIA Shift: AM Level of Billing: Critical Care My time spent with this patient was 60 minutes: Critical Provider Statement: I have seen and examined the patient on this day of service. I have reviewed and confirmed the history, physical exam, laboratory and radiologic data as documented in the signed ICU note. I have reviewed and discussed my treatment plan with the ICU team and other medical/travel service consultant staff, making frequent assessments and decisions regarding this patient's complex medical care. Critical Care time was exclusive of time spent performing separately billed procedures, treating other patients, and teaching. This time was in addition to and separate from critical care provided by other practitioners in my group on this day of service. Critical Care was necessary to treat or prevent imminent or life-threatening deterioration of the following conditions: I spent time reviewing and interpreting data from bedside monitors, laboratory results, and imaging, I spent time discussing the management of this critically ill patient with consultants and the medical staff and I spent time documenting in the medical record Geovanni HO IN CLINIC/BEDSIDE ORDERABLES Final Result * Prepare RBC: 1 Units (11/04/2024 7:51 AM CDT) Product code [id number] Unit Number [id number] [facility] Product Blood Type ONEG [facility] Dispense Status PRESUMED TRANSFUSED [facility] Blood 11/04/2024 7:51 AM CDT Narrative [facility] - 11/04/2024 10:15 PM CDT Are special requirements needed? (All products are leukoreduced and CMV- safe)- >Yes Date required:-[id number] Special Req 1:-Hgb S Negative LRRBC # of [id number] Reasons:-Hgb <7 g/dL} Geovanni HO BLOOD BANK PRODUCT ORDERABLE S Final Result [facility] [address] [address] [place] [address] * Critical Care (11/04/2024 7:48 AM CDT) Narrative Miller Horton MD - 11/04/2024 7:48 AM CDT Miller Horton MD 11/14/2024 5:46 PM Critical Care Performed by: Geovanni Falcon PA Authorized by: Geovanni Falcon PA CRITICAL CARE: Team: ALTAGRACIA Shift: AM Level of Billing: Critical Care My time spent with this patient was 60 minutes: Critical Provider Statement: I have seen and examined the patient on this day of service. I have reviewed and confirmed the history, physical exam, laboratory and radiologic data as documented in the signed ICU note. I have reviewed and discussed my treatment plan with the ICU team and other medical/travel service consultant staff, making frequent assessments and decisions regarding this patient's complex medical care. Critical Care time was exclusive of time spent performing separately billed procedures, treating other patients, and teaching. This time was in addition to and separate from critical care provided by other practitioners in my group on this day of service. Critical Care was necessary to treat or prevent imminent or life-threatening deterioration of the following conditions: Geovanni HO IN CLINIC/BEDSIDE ORDERABLES Final Result * eGFR (11/04/2024 3:41 AM CDT) eGFR >90 >=60 mL/min/1. 73 [...] Current interpretive data was last reviewed 2021. Blood 11/04/2024 3:41 AM CDT 11/04/2024 3:44 AM CDT Shahida HO LAB BLOOD ORDERABLES F inal Result Performing Organization Address [facility] Co de Phone Number [facility] [address] [address] [employer] [place] [address] * (ABNORMAL) CBC without differential (11/04/2024 3:41 AM CDT) WBC 9.24 3.80 - 9.90 K/cumm Hgb 6.7(L) 13.0 - 17.5 g/dL [facility] Hct 20.2(L) 38.9 - 50.3 % [facility] Plt 88(L) 150 - 400 K/cumm [facility] MPV 10.0 9.1 - 12.3 fL [facility] RBC 2.34(L) 4.30 - 5.80 M/cumm [facility] MCV 86.3 81.3 - 96.4 fL [facility] MCH 28.6 27.1 - 33.3 pg [facility] MCHC 33.2 32.3 - 35.7 g/dL [facility] RDW CV 16.8(H) 11.1 - 14.9 % [facility] RDW SD 51.7(H) 35.7 - 48.1 fL [facility] NRBC abs 2.02(H) 0.00 - 0.01 K/cumm [facility] Blood 11/04/2024 3:41 AM CDT 11/04/2024 3:45 AM CDT Geovanni HO LAB BLOOD ORDERABLES Final R esult Performing Organization Address [facility]/ZIP Co de Phone Number [facility] [address] [address] Department [place] [employer] [place] [address] * (ABNORMAL) Phosphorus (11/04/2024 3:41 AM CDT) Phosphorus, pl 2.0(L) 2.3 - 4.5 mg/dL Blood 11/04/2024 3:41 AM CDT 11/04/2024 3:44 AM CDT Shahida [place] LAB BLOOD ORDERABLES F inal Result Performing Organization Address [facility] de Phone Number [facility] [address] [address] [facility] [employer] [place] [address] * Magnesium (11/04/2024 3:41 AM CDT) Pathologist [facility] Magnesium 2.2 1.4 - 2.5 mg/dL Blood 11/04/2024 3:41 AM CDT 11/04/2024 3:44 AM CDT [facility] Daphne PA LAB BLOOD ORDERABLES F inal Result Performing Organization Address [facility] de Phone Number [facility] [address] [address] [facility] [employer] [place] [address] * (ABNORMAL) Basic metabolic panel (11/04/2024 3:41 AM CDT) Pathologist [facility] Sodium 144 135 - 145 mmol/L Potassium, pl 3.6 3.3 - 4.9 mmol/L [facility] Chloride 111(H) 97 - 110 mmol/L [facility] CO2 26 22 - 32 mmol/L [facility] Anion gap 7 2 - 15 mmol/L [facility] BUN 5(L) 6 - 25 mg/dL [facility] Creatinine 0.59(L) 0.80 - 1.30 mg/dL [facility] Comment:Icteric sample, test results may be affected. Glucose 105 70 - 199 mg/dL [facility] Comment: Interpretive Data Fasting glucose [...] Current interpretive data was last revised 2022. Calcium 7.8(L) 8.5 - 10.3 mg/dL [facility] Blood 11/04/2024 3:41 AM CDT 11/04/2024 3:44 AM CDT us Geovanni HO LAB BLOOD ORDERABLES Final R esult [facility] [address] [address] [place] [address] * Critical Care (11/03/2024 9:55 PM CDT) Narrative Tevin Ortez MD - 11/03/2024 9:55 PM CDT Tevin Ortez MD 11/04/2024 7:07 PM Critical Care Performed by: Mohamud Rodrigues NP Authorized by: Mohamud Rodrigues NP CRITICAL CARE: Team: ALTAGRACIA Shift: PM Level of Billing: Critical Care My time spent with this patient was 30 minutes: Critical Provider Statement: I have seen and examined the patient on this day of service. I have reviewed and confirmed the history, physical exam, laboratory and radiologic data as documented in the signed ICU note. I have reviewed and discussed my treatment plan with the ICU team and other medical/travel service consultant staff, making frequent assessments and decisions regarding this patient's complex medical care. Critical Care time was exclusive of time spent performing separately billed procedures, treating other patients, and teaching. This time was in addition to and separate from critical care provided by other practitioners in my group on this day of service. Critical Care was necessary to treat or prevent imminent or life-threatening deterioration of the following conditions: I spent time reviewing and interpreting data from bedside monitors, laboratory results, and imaging, I spent time discussing the management of this critically ill patient with consultants and the medical staff and I spent time documenting in the medical record us Mohamud Rodriuges NP IN CLINIC/BEDSIDE ORDER GUNNAR Final Result * (ABNORMAL) Hemoglobin analysis by electrophoresis (11/03/2024 10:05 AM CDT) RBC 2.54(L) 4.30 - 5.80 M/cumm Comment:Testing performed by : [facility], [address] [place]., [address] Hgb 7.2(L) 13.0 - 17.5 g/dL [facility] CH Comment:Testing performed by : [facility], 1 [facility], [address] MCV 84.6 81.3 - 96.4 fL [facility]ER CH Comment:Testing performed by : [facility], [address] [facility], [address] Rdw 16.6(H) 11.1 - 14.9 % C[facility]ER CH Comment:Testing performed by : [facility], 1 [facility], [address] Hgb electrophoresis, interp Please see comment CERNER Comment: Previously identified hemoglobinopathy Pattern suggest recent transfusion Reviewed and signed by Anival Holloway MD 11/04/2024 Testing performed by: [facility], [address] [facility], [address] Hgb A 78.7(L) 96.0 - 98.5 % [facility] CH Comment:Testing performed by : [facility], 1 [facility], [address] Hgb A2 2.7 1.5 - 3.2 % C[facility]ER CH Comment:Testing performed by : [facility], 1 [facility], [address] Hgb F 2.0(H) 0.0 - 0.9 % C[facility]ER CH Comment:Testing performed by : [facility], [address] [facility], [address] Hgb S 16.6(H) 0.0 - 0.0 % [facility]ER CH Comment:Testing performed by : [facility], [address] [facility], [address] Blood 11/03/2024 10:0 5 AM CDT 11/03/2024 12:16 PM CDT Geovanni HO LAB [place]LOOD [place] [address] [address] Department [place] [address] * Critical Care (11/03/2024 9:04 AM CDT) Narrative Miller Horton MD - 11/03/2024 9:04 AM CDT Miller Horton MD 11/04/2024 7:07 AM Critical Care Performed by: Geovanni Falcon PA Authorized by: Geovanni Falcon PA CRITICAL CARE: Team: ALTAGRACIA Shift: AM Level of Billing: Critical Care My time spent with this patient was 90 minutes: Critical Provider Statement: I have seen and examined the patient on this day of service. I have reviewed and confirmed the history, physical exam, laboratory and radiologic data as documented in the signed ICU note. I have reviewed and discussed my treatment plan with the ICU team and other medical/travel service consultant staff, making frequent assessments and decisions regarding this patient's complex medical care. Critical Care time was exclusive of time spent performing separately billed procedures, treating other patients, and teaching. This time was in addition to and separate from critical care provided by other practitioners in my group on this day of service. Critical Care was necessary to treat or prevent imminent or life-threatening deterioration of the following conditions: I spent time reviewing and interpreting data from bedside monitors, laboratory results, and imaging, I spent time discussing the management of this critically ill patient with consultants and the medical staff and I spent time documenting in the medical record us Geovanni HO IN CLINIC/BEDSIDE ORDERABLES Final Result * XR Chest 1 View (11/03/2024 6:18 AM CDT) Anatomical Region Laterality Modality Body, Chest N/A Computed Radiogr aphy 11/03/2024 7:49 AM CDT Impressions 11/03/2024 7:49 AM CDT No change since the last study. Electronically signed by: Julia Hemphill M.D. Narrative 11/03/2024 7:49 AM CDT EXAMINATION: XR CHEST 1 VIEW HISTORY: The patient is a 28-year-old male who presents with shortness of breath. Comparison made with the previous study dated 11/01/2024. TECHNIQUE: AP portable view of the chest. FINDINGS: Cardiomegaly with aortic atherosclerosis. Mild degree of vascular congestion. Allowing for the poor inspiration, there is no active infiltrate. The tip of a left dialysis catheter is in the proximal superior vena cava. Procedure Note Julia Hemphill MD - 11/03/2024 EXAMINATION: XR CHEST 1 VIEW HISTORY: The patient is a 28-year-old male who presents with shortness of breath. Comparison made with the previous study dated 11/01/2024. TECHNIQUE: AP portable view of the chest. FINDINGS: Cardiomegaly with aortic atherosclerosis. Mild degree of vascular congestion. Allowing for the poor inspiration, there is no active infiltrate. The tip of a left dialysis catheter is in the proximal superior vena cava. IMPRESSION: No change since the last study. Electronically signed by: Julia Hemphill M.D. Mohamud Rodrigues NP IMG XR PROCEDURES Final Result * eGFR (11/03/2024 6:05 AM CDT) eGFR >90 >=60 mL/min/1. 73 [...] Current interpretive data was last reviewed 2021. Blood 11/03/2024 6:05 AM CDT 11/03/2024 6:05 AM CDT Shahida Laguerre Daphne PA LAB BLOOD ORDERABLES F inal Result Performing Organization Address [facility] Co de Phone Number [place] JEFFRY [address] [address] [facility] [employer] [place] [address] * Phosphorus (11/03/2024 6:05 AM CDT) Pathologist [facility] Phosphorus, pl 2.6 2.3 - 4.5 mg/dL Blood 11/03/2024 6:05 AM CDT 11/03/2024 6:05 AM CDT [facility] [place] LAB BLOOD ORDERABLES F inal Result Performing Organization Address [facility] de Phone Number KENYETTAALEJANDRA TERAN [address] [address] [employer] [place] [address] * Magnesium (11/03/2024 6:05 AM CDT) [facility] Magnesium 2.1 1.4 - 2.5 mg/dL Blood 11/03/2024 6:05 AM CDT 11/03/2024 6:05 AM CDT [facility] la[facility] Laguerre Daphne PA LAB BLOOD ORDERABLES F inal Result Performing Organization Address [facility] Co de Phone Number KENYETTAALEJANDRA TERAN [address] [address] [employer] [place] [address] * (ABNORMAL) Basic metabolic panel (11/03/2024 6:05 AM CDT) Pathologist [facility] Sodium 141 135 - 145 mmol/L Potassium, pl 3.5 3.3 - 4.9 mmol/L [facility] Chloride 105 97 - 110 mmol/L [facility] CO2 27 22 - 32 mmol/L [facility] Anion gap 9 2 - 15 mmol/L [facility] BUN 6 6 - 25 mg/dL [facility] Creatinine 0.55(L) 0.80 - 1.30 mg/dL [facility] Comment:Icteric sample, test results may be affected. Glucose 143 70 - 199 mg/dL [facility] Comment: Interpretive Data Fasting glucose [...] Current interpretive data was last revised 2022. Calcium 8.1(L) 8.5 - 10.3 mg/dL [facility] Blood 11/03/2024 6:05 AM CDT 11/03/2024 6:05 AM CDT Geovanni HO LAB BLOOD ORDERABLES Final R esult [facility] [address] [address] Department [place] [address] * (ABNORMAL) CBC without differential (11/03/2024 6:04 AM CDT) WBC 10.69(H) 3.80 - 9.90 K/cumm Hgb 7.3(L) 13.0 - 17.5 g/dL [facility] Hct 22.1(L) 38.9 - 50.3 % [facility] Plt 84(L) 150 - 400 K/cumm [facility] MPV 9.8 9.1 - 12.3 fL [facility] RBC 2.55(L) 4.30 - 5.80 M/cumm [facility] MCV 86.7 81.3 - 96.4 fL [facility] MCH 28.6 27.1 - 33.3 pg [facility] MCHC 33.0 32.3 - 35.7 g/dL [facility] RDW CV 16.0(H) 11.1 - 14.9 % [facility] RDW SD 50.4(H) 35.7 - 48.1 fL [facility] NRBC abs 1.36(H) 0.00 - 0.01 K/cumm [facility] Morphologic Screen Results confirmed by manual morphology review. [facility] Blood 11/03/2024 6:04 AM CDT 11/03/2024 6:04 AM CDT us Geovanni HO LAB BLOOD ORDERABLES Final R esult [facility] [address] [address] Department [place] [address] * Critical Care (11/02/2024 9:23 PM CDT) Narrative Tevin Ortez MD - 11/02/2024 9:23 PM CDT Tevin Ortez MD 11/03/2024 5:57 AM Critical Care Performed by: Mohamud Rodrigues NP Authorized by: Mohamud Rodrigues NP CRITICAL CARE: Team: ALTAGRACIA Shift: PM Level of Billing: Critical Care My time spent with this patient was 75 minutes: Critical Provider Statement: I have seen and examined the patient on this day of service. I have reviewed and confirmed the history, physical exam, laboratory and radiologic data as documented in the signed ICU note. I have reviewed and discussed my treatment plan with the ICU team and other medical/travel service consultant staff, making frequent assessments and decisions regarding this patient's complex medical care. Critical Care time was exclusive of time spent performing separately billed procedures, treating other patients, and teaching. This time was in addition to and separate from critical care provided by other practitioners in my group on this day of service. Critical Care was necessary to treat or prevent imminent or life-threatening deterioration of the following conditions: I spent time reviewing and interpreting data from bedside monitors, laboratory results, and imaging, I spent time discussing the management of this critically ill patient with consultants and the medical staff and I spent time documenting in the medical record us Mohamud Rodrigues NP IN CLINIC/BEDSIDE ORDER GUNNAR Final Result * (ABNORMAL) CBC without differential (11/02/2024 3:24 PM CDT) Pathologist [facility] WBC 12.29(H) 3.80 - 9.90 K/cumm Comment:Pt received an RBC e xchange of 7-8 units per Noris Thornton RN Hgb 8.7(L) 13.0 - 17.5 g/dL [facility] Hct 26.0(L) 38.9 - 50.3 % [facility] Plt 86(L) 150 - 400 K/cumm [facility] CH Comment:No clot detected in sample. This result has been called to Noris Thornton RN by [id number] on 11/02/2024 17:18:41. Patient Transfused. MPV 9.7 9.1 - 12.3 fL [facility] RBC 3.00(L) 4.30 - 5.80 M/cumm [facility] MCV 86.7 81.3 - 96.4 fL [facility] MCH 29.0 27.1 - 33.3 pg [facility] MCHC 33.5 32.3 - 35.7 g/dL [facility] RDW CV 15.9(H) 11.1 - 14.9 % [facility] RDW SD 49.6(H) 35.7 - 48.1 fL [facility] NRBC abs 1.00(H) 0.00 - 0.01 K/cumm [facility] Blood 11/02/2024 3:24 PM CDT 11/02/2024 3:27 PM CDT Narrative [facility] - 11/02/2024 5:19 PM CDT Prior to plasma exchange Geovanni HO LAB BLOOD ORDERABLES Final R esult [facility] [address] [address] Department [place] [address] * (ABNORMAL) BLOOD MISC TO [employer] (11/02/2024 3:05 PM CDT) [facility] Test name, chem [id number] [place] ref Lab Misc See Footnote( A) [facility] Comment: Test Result Flag Unit RefValue Hb Electrophoresis Evaluation Hb Electrophoresis See Footnote Interpretation See Hb Electrophoresis Summary Interpretation (HBEL0) for a discussion of results. Hb A 77.5 L % 95.8-98.0 Hb F 2.0 H % 0.0-0.9 Hb A2 2.6 % 2.0-3.3 Variant 1 17.9 Hb S A % 0.0 ADDITIONAL INFORMATION This test has been modified from the gore seamer's instructions. Its performance characteristics were determined by [facility] in a manner consistent with CLIA requirements. This test has not been cleared or approved by the U.S. Food and Drug Administration. HPLC Hb Variant, B See Footnote RESULT: See Interpretation ADDITIONAL INFORMATION This test has been modified from the gore seamer's instructions. Its performance characteristics were determined by [facility] in a manner consistent with CLIA requirements. This test has not been cleared or approved by the U.S. Food and Drug Administration. Test Performed by: [place] [address] Surg Rn: Chris Jorge Ph.D.; CLIA# [id number] Blood 11/02/2024 3:05 PM CDT 11/03/2024 3:05 PM CDT Ruthy Saleem 2024 4:09 PM CDT HEMOGLOBIN ELECTROPHORESIS EVALUATION us Gordo Fischer MD LAB BLOOD ORDERABLES Final Result [place] [address] [address] Department [place] [address] [facility] ref Lab * (ABNORMAL) Urinalysis reflex to microscopic (11/02/2024 1:01 PM CDT) Color, ur Yellow Yellow Clarity, ur Clear Clear [facility] Specific gravity, ur 1.014 1.003 - 1.030 [facility] pH, urine 5.5 [facility] CH Comment: Interpretive Data U rine pH is affected by diet, medications, systemic acid-base disturbances, and renal tubular function. pH may affect urinary stone formation. For example, urine pH below 6.0 may help reduce the tendency for calcium phosphate stones and pH greater than 6.0 may reduce the tendency for uric acid stone formation. Source: [facility] Current Interpretive Data was last revised on 2017 Protein, ur ql 1+(A) Negative [facility] Glucose, ur ql Negative Negative [facility] Ketones, ur 1+(A) Negative [facility] Bilirubin, ur 1+(A) Negative [facility] Blood, ur 1+(A) Negative [facility] Urobilinogen, ur 2.0(A) <2.0 mg/dL [facility] Nitrite, ur Negative Negative [facility] Leukocyte esterase, ur Negative Negative [facility] UA reflex comment Reflex to microscopic UA will be performed. [facility] Urine 11/02/2024 1:0 1 PM CDT 11/02/2024 1:09 PM CDT Gordo Fischer MD LAB URINE ORDERABLES Final Result [facility] [address] [address] Department of Laboratories [place], [place] [id number] * Urinalysis, microscopic only (11/02/2024 1:01 PM CDT) WBC, ur 0-5 0 - 5 /HPF RBC, ur 0-2 0 - 2 /HPF [facility] Epithelial cells, squamous, ur 1-5 0 - 5 /HPF [facility] Urine 11/02/2024 1:01 PM CDT 11/02/2024 1:09 PM CDT Gordo Fischer MD LAB URINE ORDERABLES Final Result [place] [address] [place] [address] * Transfuse RBC (11/02/2024 12:48 PM CDT) Blood us Gordo Fischer MD BLOOD TRANSFUSION ORDERABLE S Final Result Performing Organization Address City/[facility]/ZIP Co de Phone Number [place] [address] [place] [address] * Transfuse RBC (11/02/2024 12:47 PM CDT) Blood us Gordo Fischer MD BLOOD TRANSFUSION ORDERABLE S Final Result Performing Organization Address [facility]/ZIP Co de Phone Number [facility] [address] [address] [place] [address] * Transfuse RBC (11/02/2024 12:46 PM CDT) Blood us Gordo Fischer MD BLOOD TRANSFUSION ORDERABLE S Final Result Performing Organization Address [facility]/ZIP Co de Phone Number [facility] [address] [place] [address] * Transfuse RBC (11/02/2024 12:32 PM CDT) Blood us Gordo Fischer MD BLOOD TRANSFUSION ORDERABLE S Final Result Performing Organization Address City/[facility]/ZIP Co de Phone Number [facility] [address] [place] [address] * Transfuse RBC (11/02/2024 12:32 PM CDT) Blood us Gordo Fischer MD BLOOD TRANSFUSION ORDERABLE S Final Result Performing Organization Address City/[facility]/ZIP Co de Phone Number [facility] [address] [place] [address] * Transfuse RBC (11/02/2024 12:31 PM CDT) Blood Gordo Fischer MD BLOOD TRANSFUSION ORDERABLE S Final Result Performing Organization Address [facility] Co de Phone Number [facility] [address] [place] [address] * Transfuse RBC (11/02/2024 12:31 PM CDT) Blood Gordo Fischer MD BLOOD TRANSFUSION ORDERABLE S Final Result Performing Organization Address [facility] Co de Phone Number [facility] [address] [place] [address] * Transfuse RBC (11/02/2024 12:30 PM CDT) Blood Gordo Fischer MD BLOOD TRANSFUSION ORDERABLE S Final Result Performing Organization Address [facility] Co de Phone Number [facility] [address] [place] [address] * Critical Care (11/02/2024 12:22 PM CDT) Narrative Miller Horton MD - 11/02/2024 12:22 PM CDT Miller Horton MD 11/03/2024 6:25 AM Critical Care Performed by: Geovanni Falcon PA Authorized by: Geovanni Falcon PA CRITICAL CARE: Team: ALTAGRACIA Shift: AM Level of Billing: Critical Care My time spent with this patient was 120 minutes: Critical Provider Statement: I have seen and examined the patient on this day of service. I have reviewed and confirmed the history, physical exam, laboratory and radiologic data as documented in the signed ICU note. I have reviewed and discussed my treatment plan with the ICU team and other medical/travel service consultant staff, making frequent assessments and decisions regarding this patient's complex medical care. Critical Care time was exclusive of time spent performing separately billed procedures, treating other patients, and teaching. This time was in addition to and separate from critical care provided by other practitioners in my group on this day of service. Critical Care was necessary to treat or prevent imminent or life-threatening deterioration of the following conditions: I spent time reviewing and interpreting data from bedside monitors, laboratory results, and imaging, I spent time discussing the management of this critically ill patient with consultants and the medical staff and I spent time documenting in the medical record Geovanni HO IN CLINIC/BEDSIDE ORDERABLES Final Result * (ABNORMAL) CBC without differential (11/02/2024 8:29 AM CDT) WBC 20.65(H) 3.80 - 9.90 K/cumm Hgb 7.2(L) 13.0 - 17.5 g/dL [facility] Hct 20.5(L) 38.9 - 50.3 % [facility] Plt 187 150 - 400 K/cumm [facility] MPV 10.1 9.1 - 12.3 fL [facility] RBC 2.46(L) 4.30 - 5.80 M/cumm [facility] MCV 83.3 81.3 - 96.4 fL [facility] MCH 29.3 27.1 - 33.3 pg [facility] MCHC 35.1 32.3 - 35.7 g/dL [facility] RDW CV 21.1(H) 11.1 - 14.9 % [facility] RDW SD 63.4(H) 35.7 - 48.1 fL [facility] NRBC abs 1.68(H) 0.00 - 0.01 K/cumm [facility] Morphologic Screen Results confirmed by manual morphology review. [facility] Blood 11/02/2024 8:29 AM CDT 11/02/2024 8:32 AM CDT Narrative [facility] - 11/02/2024 9:03 AM CDT After plasma exchange Geovanni HO LAB BLOOD ORDERABLES Final R esult [facility] [address] [address] Department [place] [address] * eGFR (11/02/2024 4:43 AM CDT) eGFR >90 >=60 mL/min/1. 73 [...] Current interpretive data was last reviewed 2021. Blood 11/02/2024 4:43 AM CDT 11/02/2024 4:43 AM CDT us Shahida HO LAB BLOOD ORDERABLES F inal Result [place] [address] [address] Department [place] [address] * (ABNORMAL) CBC without differential (11/02/2024 4:43 AM CDT) Pathologist [facility] WBC 20.90(H) 3.80 - 9.90 K/cumm Hgb 7.4(L) 13.0 - 17.5 g/dL [facility] Hct 21.7(L) 38.9 - 50.3 % [facility] Plt 196 150 - 400 K/cumm [facility] MPV 10.3 9.1 - 12.3 fL [facility] RBC 2.61(L) 4.30 - 5.80 M/cumm [facility] MCV 83.1 81.3 - 96.4 fL [facility] MCH 28.4 27.1 - 33.3 pg [facility] MCHC 34.1 32.3 - 35.7 g/dL [facility] RDW CV 20.8(H) 11.1 - 14.9 % [facility] CH RDW SD 61.0(H) 35.7 - 48.1 fL [facility] CH NRBC abs 1.77(H) 0.00 - 0.01 K/cumm [facility] Blood 11/02/2024 4:43 AM CDT 11/02/2024 4:43 AM CDT Geovanni HO LAB BLOOD ORDERABLES Final R esult [place] [address] [address] [employer] [place] [address] * (ABNORMAL) Phosphorus (11/02/2024 4:43 AM CDT) Pathologist [facility] Phosphorus, pl 1.9(L) 2.3 - 4.5 mg/dL Blood 11/02/2024 4:43 AM CDT 11/02/2024 4:43 AM CDT Shahida HO LAB BLOOD ORDERABLES F inal Result Performing Organization Address [facility] Co de Phone Number KENYETTAALEJANDRA TERAN [address] [address] [employer] [place], [place] [id number] * Magnesium (11/02/2024 4:43 AM CDT) Pathologist [facility] Magnesium 1.8 1.4 - 2.5 mg/dL Blood 11/02/2024 4:43 AM CDT 11/02/2024 4:43 AM CDT Shahida HO LAB BLOOD ORDERABLES F inal Result Performing Organization Address City/[facility] Co de Phone Number KENYETTAALEJANDRA TERAN [address] [address] Department of [employer] [place], [place] [id number] * (ABNORMAL) Hepatic function panel (11/02/2024 4:43 AM CDT) Bilirubin, total 10.7(H) 0.1 - 1.2 mg/dL Bilirubin, direct 4.2(H) 0.1 - 0.3 mg/dL [facility] Comment:Hemolysis present. R esults may be affected. Protein, pl 7.5 6.5 - 8.5 g/dL [facility] Albumin 3.7 3.5 - 5.0 g/dL [facility] Alk phos 485(H) 40 - 130 Units/L [facility] ALT 42 7 - 55 Units/L [facility] AST 254(H) 10 - 50 Units/L [facility] Blood 11/02/2024 4:43 AM CDT 11/02/2024 10:20 AM CDT Geovanni HO LAB BLOOD ORDERABLES Final R esult [facility] [address] Department [place] [address] * (ABNORMAL) Basic metabolic panel (11/02/2024 4:43 AM CDT) Pathologist [facility] Sodium 135 135 - 145 mmol/L Potassium, pl 4.2 3.3 - 4.9 mmol/L [facility] Chloride 100 97 - 110 mmol/L [facility] CO2 23 22 - 32 mmol/L [facility] Anion gap 12 2 - 15 mmol/L [facility] BUN 7 6 - 25 mg/dL [facility] Creatinine 0.54(L) 0.80 - 1.30 mg/dL [facility] Comment:Icteric sample, test results may be affected. Glucose 119 70 - 199 mg/dL [facility] Comment: Interpretive Data Fasting glucose >/= 126 [...] Current interpretive data was last revised 2022. Calcium 8.7 8.5 - 10.3 mg/dL [facility] Blood 11/02/2024 4:43 AM CDT 11/02/2024 4:43 AM CDT Geovanni HO LAB BLOOD ORDERABLES Final R esult [facility] [address] Department [place] [address] * Blood culture Blood (11/02/2024 3:30 AM CDT) Report Final Report: No growth Comment:Testing performed by : [facility], [address] [place]., [address] Blood 11/02/2024 3:30 AM CDT 11/02/2024 5:46 AM CDT Narrative [facility] - 11/06/2024 7:00 AM CDT From a different site than #1. Collection->Peripheral 1. Blood cultures are incubated for 4 days on a continuously monitored blood culture system. The first report of a negative culture is issued within 24 hours of receipt of the specimen in the laboratory. 2. Positive culture results are reported as soon as they are detected. 3. The most important factor for detection of microbes in the setting of bloodstream infection is the volume of blood submitted for culture. Failure to collect an optimal blood volume can result in false negative blood cultures. 4. For pediatric patients, the recommended blood volume to collect follows a weight based strategy. See the electronic test catalog for collection instructions. 5. For positive blood cultures, a rapid molecular test may be performed for organism identification using the [employer] blood culture identification panel for gram positive (BCID-GP) and gram negative (BCID-GN) organisms. This nucleic acid amplification test detects microbial DNA in positive blood culture broth. This assay has been cleared by the [place] Food and Drug Administration and its performance characteristics have been verified by the [facility]. For questions about this culture, contact the Microbiology Laboratory at [phone]. Interpretive data was last revised on 24. Shahida Laguerre Daphne HO LAB MICROBIOLOGY - GEN ERAL ORDERABLES Final Result Performing Organization Address City/[facility]/ZIP Co de Phone Number LAMONT TERAN [address] [address] [place] [address] * Blood culture Blood (11/02/2024 3:30 AM CDT) Report Final Report: No growth Comment:Testing performed by : [facility], [address] [place]., [address] Blood 11/02/2024 3:30 AM CDT 11/02/2024 5:46 AM CDT Ruthy MIGUEL CH - 11/06/2024 7:00 AM CDT Collection->Peripheral 1. Blood cultures are incubated for 4 days on a continuously monitored blood culture system. The first report of a negative culture is issued within 24 hours of receipt of the specimen in the laboratory. 2. Positive culture results are reported as soon as they are detected. 3. The most important factor for detection of microbes in the setting of bloodstream infection is the volume of blood submitted for culture. Failure to collect an optimal blood volume can result in false negative blood cultures. 4. For pediatric patients, the recommended blood volume to collect follows a weight based strategy. See the electronic test catalog for collection instructions. 5. For positive blood cultures, a rapid molecular test may be performed for organism identification using the ata ePlex blood culture identification panel for gram positive (BCID-GP) and gram negative (BCID-GN) organisms. This nucleic acid amplification test detects microbial DNA in positive blood culture broth. This assay has been cleared by the [place] Food and Drug Administration and its performance characteristics have been verified by the [facility]. For questions about this culture, contact the Microbiology Laboratory at [phone]. Interpretive data was last revised on 24. Shahidaana laura Laguerre Daphne HO LAB MICROBIOLOGY - GEN ERAL ORDERABLES Final Result Performing Organization Address City/[facility]/ZIP Co de Phone Number LAMONT [address] [place] [address] * Critical Care (11/01/2024 11:19 PM CDT) Narrative Tevin Ortez MD - 11/01/2024 11:19 PM CDT Tevin Ortez MD 11/02/2024 6:19 AM Critical Care Performed by: Mohamud Rodrigues NP Authorized by: Mohamud Rodrigues NP CRITICAL CARE: Team: ALTAGRACIA Shift: PM Level of Billing: Critical Care My time spent with this patient was 60 minutes: Critical Provider Statement: I have seen and examined the patient on this day of service. I have reviewed and confirmed the history, physical exam, laboratory and radiologic data as documented in the signed ICU note. I have reviewed and discussed my treatment plan with the ICU team and other medical/travel service consultant staff, making frequent assessments and decisions regarding this patient's complex medical care. Critical Care time was exclusive of time spent performing separately billed procedures, treating other patients, and teaching. This time was in addition to and separate from critical care provided by other practitioners in my group on this day of service. Critical Care was necessary to treat or prevent imminent or life-threatening deterioration of the following conditions: I spent time reviewing and interpreting data from bedside monitors, laboratory results, and imaging, I spent time discussing the management of this critically ill patient with consultants and the medical staff and I spent time documenting in the medical record Mohamud Rodrigues NP IN CLINIC/BEDSIDE ORDER GUNNAR Final Result * Strep pneumoniae antigen, urine Urine (11/01/2024 9:28 PM CDT) S. pneumoniae Ag Negative Negative Comment: Interpretive Data A positive result is indicative of pneumococcal pneumonia in patients with severe CAP. Cross-reactivity with closely related Streptococcus bacteria may occur. A negative result suggests no current or recent pneumococcal infection but cannot rule out infection with S. pneumoniae. The results of this testing should be used in conjunction with clinical findings and other diagnostic testing, including microbiologic culture. Current Interpretive Data was last revised on 2022 Urine 11/01/2024 9:28 PM CDT 11/01/2024 9:29 PM CDT us Shahida Shade Daphne PA LAB MICROBIOLOGY - GEN ERAL ORDERABLES Final Result Performing Organization Address City/[facility] Co de Phone Number LAMONT TERAN [address] [address] [facility] [employer] [place], [place] [id number] * Legionella antigen Urine (11/01/2024 9:28 PM CDT) Legionella Ag Negative Negative Comment: Interpretive Data This test detects only Legionella pneumophila serogroup 1 antigen. Current interpretive data was last revised on 2019. Urine 11/01/2024 9:28 PM CDT 11/01/2024 9:29 PM CDT Shahida HO LAB MICROBIOLOGY - GEN ERAL ORDERABLES Final Result Performing Organization Address [facility] Co de Phone Number LAMONT TERAN [address] [address] [facility] [employer] [place] [address] * NV INSJ NON-TUNNELED CENTRAL VENOUS CATH AGE 5 YR/> (11/01/2024 7:42 PM CDT) Narrative Shahida Serna PA - 11/01/2024 7:42 PM CDT Shahida Serna PA 11/01/2024 7:45 PM Central Line Insertion Date/Time: 11/01/2024 7:42 PM Performed by: Shahida Serna PA Authorized by: Shahida Serna PA [place] Protocol:Immediately prior to the procedure a time out was called: a verbal verification by the procedure participants confirmed correct patient identity, correct site/side marked and visible (if applicable); agreement on procedure to be done; and correct patient positioning Indications: Vascular access Anesthesia (see MAR for exact dosage) Anesthesia method: Local infiltration Local anesthetic: Lidocaine 1% Patient position: Flat Skin preparation: Skin prepped with 2% chlorhexidine Provider preparation: Cap, full body drape, handwashing, gloves, gown and mask Location: Left internal jugular Technique: Landmarks identified Ultrasound guidance: Used for site marking, landmarks identified, used for needle insertion and sterile probe cover used Assessment: Blood return through all ports, free fluid flow and placement verified by x-ray (Verified as venous puncture via guidewire visualized within vein under US) Catheter type: Dialysis catheter Needle inserted, vein idenitified then guidewire inserted easily into vein: Yes Number of attempts: 1 Successful placement: Yes Catheter secured at (cm): 20 Catheter length (cm): 20 Line securement: Line sutured, dressing applied and securement device Patient tolerance: Patient tolerated the procedure well with no immediate complications I personally performed the above procedure which is separate from my critical care time. Consent obtained from patient prior to the procedure. us Shahida HO IN CLINIC/BEDSIDE NORMA HANKS Final Result * Critical Care (11/01/2024 5:30 PM CDT) Narrative Gordo Fischer MD - 11/01/2024 5:30 PM CDT Gordo Fischer MD 11/15/2024 10:48 PM Critical Care Performed by: Gordo Fischer MD Authorized by: Gordo Fischer MD CRITICAL CARE: Team: [facility] Shift: AM Level of Billing: Critical Care My time spent with this patient was 20 minutes: Critical Provider Statement: I have seen and examined the patient on this day of service. I have reviewed and confirmed the history, physical exam, laboratory and radiologic data as documented in the signed ICU note. I have reviewed and discussed my treatment plan with the ICU team and other medical/travel service consultant staff, making frequent assessments and decisions regarding this patient's complex medical care. Critical Care time was exclusive of time spent performing separately billed procedures, treating other patients, and teaching. This time was in addition to and separate from critical care provided by other practitioners in my group on this day of service. Critical Care was necessary to treat or prevent imminent or life-threatening deterioration of the following conditions: Acute hypoxic respiratory failure This time was spent by me doing the following: Transfusion of blood products us Gordo Fischer MD IN CLINIC/BEDSIDE ORDERABLE S Final Result * (ABNORMAL) Hemoglobin analysis by electrophoresis (11/01/2024 5:26 PM CDT) RBC 2.54(L) 4.30 - 5.80 M/cumm Comment:Testing performed by : [facility], [address] [facility], [address] Hgb 7.4(L) 13.0 - 17.5 g/dL CERNER CH Comment:Testing performed by : [facility], [address] [facility], [address] MCV 83.1 81.3 - 96.4 fL CERNER CH Comment:Testing performed by : [facility], [address] [facility], [address] Rdw 20.8(H) 11.1 - 14.9 % CERNER CH Comment:Testing performed by : [facility], [address] [facility], [address] Hgb electrophoresis, interp Please see comment CERNER CH Comment: Previously identified hemoglobinopathy Pattern suggests recent transfusion Reviewed and signed by Anival Holloway MD 11/02/2024 Testing performed by: [facility], [address] [facility], [address] Hgb A 23.6(L) 96.0 - 98.5 % CERNER CH Comment:Testing performed by : [facility], [address] [facility], [address] Hgb A2 3.1 1.5 - 3.2 % CERNER CH Comment:Testing performed by : [facility], [address] [facility], [address] Hgb F 7.6(H) 0.0 - 0.9 % CERNER CH Comment:Testing performed by : [facility], [address] [facility], [address] Hgb S 65.7(H) 0.0 - 0.0 % CERNER CH Comment:Testing performed by : [facility], [address] [facility], [address] Blood 11/01/2024 5:26 PM CDT 11/01/2024 8:39 PM CDT Shahida HO LAB BLOOD ORDERABLES F inal Result LAMONT TERAN [address] Department [place] [employer] [place] [address] * (ABNORMAL) CRP (acute phase) (11/01/2024 5:26 PM CDT) CRP 216.4(H) <=10.0 mg/L Blood 11/01/2024 5:26 PM CDT 11/01/2024 5:39 PM CDT Shahida Shade HO LAB BLOOD ORDERABLES F inal Result Performing Organization Address City/[facility] Co de Phone Number LAMONT TERAN [address] [address] Department [place] [employer] [place] [address] * Prepare RBC: 8 Units (11/01/2024 4:06 PM CDT) Product code [id number] CERNER CH Unit Number [id number] CERNER CH Product Blood Type ANEG CERNER CH Dispense Status RETURNED CERNER CH Product code [id number] CERNER CH Unit Number [id number] CERNER CH Product Blood Type APOS CERNER CH Dispense Status PRESUMED TRANSFUSED CERNER CH Product code F4424R26 CERNER CH Unit Number [id number] CERNER CH Product Blood Type APOS CERNER CH Dispense Status PRESUMED TRANSFUSED CERNER CH Product code [id number] CERNER CH Unit Number [id number] CERNER CH Product Blood Type APOS CERNER CH Dispense Status PRESUMED TRANSFUSED CERNER CH Product code [id number] Unit Number [id number] CERNER CH Product Blood Type APOS CERNER CH Dispense Status PRESUMED TRANSFUSED CERNER CH Product code B4085W94 CERNER CH Unit Number [id number] CERNER CH Product Blood Type APOS CERNER CH Dispense Status PRESUMED TRANSFUSED CERNER CH Product code [id number] CERNER CH Unit Number [id number] CERNER CH Product Blood Type APOS CERNER CH Dispense Status PRESUMED TRANSFUSED CERNER CH Product code T3156H45 LAMONT TERAN Unit Number [id number] LAMONT TERAN Product Blood Type APOS LAMONT TERAN Dispense Status PRESUMED TRANSFUSED LAMONT TERAN Blood 11/01/2024 4:06 PM CDT Narrative LAMONT TERAN - 2024 12:12 AM CDT Specify Procedure:->exchange transfusion Are special requirements needed? (All products are leukoreduced and CMV- safe)- >Yes Date required:-[id number] Special Req 1:-Hgb S Negative LRRBC # of [id number] Reasons:-Hold for procedure (specify procedure)} us Shahida HO BLOOD BANK PRODUCT ORD ERABLES Final Result LAMONT TERAN [address] Department [place] [address] * XR Chest 1 View (11/01/2024 3:41 PM CDT) Anatomical Region Laterality Modality Body, Chest N/A Computed Radiogr aphy 11/01/2024 3:44 PM CDT Impressions 11/01/2024 3:44 PM CDT Findings as described above. Electronically signed by: Julia Hemphill M.D. Narrative 11/01/2024 3:44 PM CDT EXAMINATION: XR CHEST 1 VIEW HISTORY: The patient is a 28-year-old male who has had placement of a left IJ dialysis catheter. Comparison made with the study done earlier in the day. TECHNIQUE: AP portable view of the chest. FINDINGS: There has been interval placement of a left IJ dialysis catheter with its tip in the proximal superior vena cava. Cardiomegaly with aortic atherosclerosis. Mild degree of vascular congestion. There may be a right effusion with right lower lobe compressive atelectasis secondary to this. The remainder of the lungs are clear. Procedure Note Julia Hemphill MD - 11/01/2024 EXAMINATION: XR CHEST 1 VIEW HISTORY: The patient is a 28-year-old male who has had placement of a left IJ dialysis catheter. Comparison made with the study done earlier in the day. TECHNIQUE: AP portable view of the chest. FINDINGS: There has been interval placement of a left IJ dialysis catheter with its tip in the proximal superior vena cava. Cardiomegaly with aortic atherosclerosis. Mild degree of vascular congestion. There may be a right effusion with right lower lobe compressive atelectasis secondary to this. The remainder of the lungs are clear. IMPRESSION: Findings as described above. Electronically signed by: Julia Hemphill M.D. [facility] Shade Daphne PA IMG XR PROCEDURES Stephanie l Result * XR Chest 1 View (11/01/2024 1:41 PM CDT) Anatomical Region Laterality Modality Body, Chest N/A Computed Radiogr aphy 11/01/2024 2:02 PM CDT Impressions 11/01/2024 2:02 PM CDT Cardiomegaly without failure. Possible right basilar infiltrate. Pleural fluid. Electronically signed by: Georges Taveras M.D. Narrative 11/01/2024 2:02 PM CDT EXAMINATION: XR CHEST 1 VIEW DATE: 11/01/2024 1:20 PM HISTORY: Hypoxia FINDINGS:Compared with study of 10/08/2024, continued multi chambered cardiomegaly with pulmonary vascular congestion and a tortuous aorta. Pleural effusions. Possible infiltrate right base. Procedure Note Georges Taveras MD - 11/01/2024 EXAMINATION: XR CHEST 1 VIEW DATE: 11/01/2024 1:20 PM HISTORY: Hypoxia FINDINGS:Compared with study of 10/08/2024, continued multi chambered cardiomegaly with pulmonary vascular congestion and a tortuous aorta. Pleural effusions. Possible infiltrate right base. IMPRESSION: Cardiomegaly without failure. Possible right basilar infiltrate. Pleural fluid. Electronically signed by: Georges Taveras M.D. Shahida Shade Daphne PA IMG XR PROCEDURES Stephanie l Result * Lactate (11/01/2024 1:19 PM CDT) Lactate 1.6 0.7 - 2.0 mmol/L Blood 11/01/2024 1:19 PM CDT 11/01/2024 1:34 PM CDT Shahida Carrollnti PA LAB BLOOD ORDERABLES F inal Result Performing Organization Address City/[facility]/ZIP Co de Phone Number LAMONT TERAN [address] [address] [employer] [place], [place] [id number] * Calcium, ionized, whole blood (11/01/2024 1:19 PM CDT) Ca, ionized, bld 4.64 4.50 - 5.10 mg/dL Blood 11/01/2024 1:19 PM CDT 11/01/2024 1:34 PM CDT Shahida Carrollnti [place] LAB BLOOD ORDERABLES F inal Result Performing Organization Address [facility] Co de Phone Number LAMONT TERAN [address] [address] Department [place] [employer] [place] [address] * eGFR (11/01/2024 1:19 PM CDT) eGFR >90 >=60 mL/min/1. 73 [...] Current interpretive data was last reviewed 2021. Blood 11/01/2024 1:19 PM CDT 11/01/2024 1:35 PM CDT Shaihda HO LAB BLOOD ORDERABLES F inal Result [facility] [address] [address] Department [place] [address] * Respiratory pathogen panel Nasopharyngeal (11/01/2024 1:19 PM CDT) Pathologist [facility] Influenza A RNA Not Detected Not Detected Influenza B RNA Not Detected Not Detected CERNER RSV RNA Not Detected Not Detected CERNER COVID-19 RNA Not Detected Not Detected CERNER Coronavirus 229E RNA Not Detected Not Detected CERNER Coronavirus HKU1 RNA Not Detected Not Detected [facility] Coronavirus NL63 RNA Not Detected Not Detected [facility] Coronavirus OC43 RNA Not Detected Not Detected [facility] Adenovirus DNA Not Detected Not Detected CERNER Metapneumovirus RNA Not Detected Not Detected CERNER Rhinovirus/Enterov irus RNA Not Detected Not Detected CERNER Parainfluenza 1 RNA Not Detected Not Detected [facility] Parainfluenza 2 RNA Not Detected Not Detected CERNER Parainfluenza 3 RNA Not Detected Not Detected CERNER Parainfluenza 4 RNA Not Detected Not Detected [facility] B. pertussis DNA Not Detected Not Detected [facility] B. parapertussis DNA Not Detected Not Detected [facility] C. pneumoniae DNA Not Detected Not Detected [facility] M. pneumoniae DNA Not Detected Not Detected [facility] Comment: Interpretive Data The [employer] FilmArray Respiratory Panel (RP2.1) assay is a multiplexed real-time PCR based nucleic acid test capable of simultaneous qualitative detection and identification of multiple respiratory viral and bacterial nucleic acids, including SARS Coronavirus 2 (the causative agent of COVID-19). The following bacteria, viruses and virus subtypes can be identified using the FilmArray RP2.1 assay: Bordetella pertussis, Bordetella parapertussis, Chlamydia pneumoniae, Mycoplasma pneumoniae, Adenovirus, SARS Coronavirus 2, seasonal coronaviruses (Coronavirus HKU1, Coronavirus NL63, Coronavirus 229E, and Coronavirus OC43), Influenza A, Influenza A subtype H1, Influenza A subtype H3, Influenza A subtype 2009 H1, Influenza B, Metapneumovirus, Parainfluenza 1, Parainfluenza 2, Parainfluenza 3, Parainfluenza 4, RSV, Rhinovirus/Enterovirus. Due to the genetic similarity between human Rhinovirus and Enterovirus, the FilmArray RP2.1 assay cannot reliably differentiate them. Coronavirus OC43 may cross-react with some isolates of Coronavirus HKU1. A dual positive result may be due to cross-reactivity or may indicate a co- infection. The detection and identification of specific viral and bacterial nucleic acids from individuals exhibiting signs and symptoms of a respiratory infection aids in the diagnosis of respiratory infection if used in conjunction with other clinical and epidemiological information. The results of this test should not be used as the sole basis for diagnosis, treatment, or other management decisions. Negative results in the setting of a respiratory illness may be due to infection with pathogens that are not detected by this test. Positive results do not rule out infection/co-infection with other organisms. The agent(s) detected by the FilmArray RP2.1 may not be the definite cause of disease. Additional testing (lab, imaging, etc.) may be necessary when evaluating a patient with possible respiratory tract infection. The FilmArray RP2.1 assay has FDA clearance for testing of AERIAL CROP DUSTER swabs. The performance characteristics of this assay have been determined by [facility]. Current interpretive data was last revised on 2020. Nasopharyngeal 11/01/2024 1: 19 PM CDT 11/01/2024 1:33 PM CDT Narrative LAMONT TERAN - 11/01/2024 2:38 PM CDT Is the Patient experiencing symptoms consistent with COVID?->Yes Surveillance testing for transplant patient?->No us Shahida HO LAB MICROBIOLOGY - GEN ERAL ORDERABLES Final Result LAMONT TERAN [address] Department [place] [address] * MRSA Only (Staphylococcus aureus) PCR Nasal (11/01/2024 1:19 PM CDT) Pathologist [facility] PCR Scrn, Methicillin resistant Staphylococcus aureus (MRSA) Not Detected Not Detected Comment: Interpretive Data Testing performed using Nucleic Acid Amplification with the [employer] Xpert MRSA NxG Assay. This assay detects target DNA from mecA, mecC and the SCCmec insertion site of Staphylococcus aureus using Real-Time PCR and has been cleared by the FDA. Performance characteristics have been verified by the [facility]. Current Interpretive Data was last revised on 2022 Nasal 11/01/2024 1:19 PM CDT 11/01/2024 1:33 PM CDT Shahida HO LAB MICROBIOLOGY - GEN ERAL ORDERABLES Final Result [facility] [address] [address] Department [place] [address] CH * (ABNORMAL) CBC without differential (11/01/2024 1:19 PM CDT) WBC 20.91(H) 3.80 - 9.90 K/cumm Hgb 7.7(L) 13.0 - 17.5 g/dL [facility] Hct 22.7(L) 38.9 - 50.3 % [facility] Plt 216 150 - 400 K/cumm [facility] MPV 10.2 9.1 - 12.3 fL [facility] RBC 2.68(L) 4.30 - 5.80 M/cumm [facility] MCV 84.7 81.3 - 96.4 fL [facility] MCH 28.7 27.1 - 33.3 pg [facility] MCHC 33.9 32.3 - 35.7 g/dL [facility] RDW CV 20.3(H) 11.1 - 14.9 % [facility] RDW SD 61.5(H) 35.7 - 48.1 fL [facility] NRBC abs 1.59(H) 0.00 - 0.01 K/cumm [facility] Morphologic Screen Results confirmed by manual morphology review. [facility] Blood 11/01/2024 1:19 PM CDT 11/01/2024 1:35 PM CDT us Shahida HO LAB BLOOD ORDERABLES F inal Result Performing Organization Address [facility]/ZIP Co de Phone Number LAMONT TERAN [address] [address] [facility] [employer] [place] [address] * Prepare RBC (11/01/2024 1:19 PM CDT) Product code [id number] Unit Number [id number] CERNER CH Product Blood Type ANEG CERNER CH Dispense Status PRESUMED TRANSFUSED CERNER CH Product code [id number] CERNER CH Unit Number [id number] CERNER CH Product Blood Type ANEG CERNER CH Dispense Status RETURNED CERNER CH Blood 11/01/2024 1:19 PM CDT 11/01/2024 1:37 PM CDT Shahida HO BLOOD BANK PRODUCT ORD ERABLES Final Result Performing Organization Address [facility] Co de Phone Number KENYETTAALEJANDRA TERAN [address] [address] Department [employer] [place] [address] * Type and screen (11/01/2024 1:19 PM CDT) Pathologist [facility] ABO Rh A Positive Yesenia, indirect Negative CERNER CH Blood 11/01/2024 1:19 PM CDT 11/01/2024 1:35 PM CDT Narrative CERNER CH - 11/01/2024 2:13 PM CDT Has the patient had Daratumumab or Isatuximab in the past 6 months?->Unknown Geovanni HO LAB BLOOD BANK TEST ORDERABL ES Final Result Performing Organization Address [facility]/ZIP Co de Phone Number LAMONT TERAN [address] [address] [facility] [employer] [place] [address] * Phosphorus (11/01/2024 1:19 PM CDT) Phosphorus, pl 2.7 2.3 - 4.5 mg/dL Blood 11/01/2024 1:19 PM CDT 11/01/2024 1:35 PM CDT Shahida Serna [place] LAB BLOOD ORDERABLES F inal Result Performing Organization Address City/[facility]/ZIP Co de Phone Number LAMONT [address] [address] [employer] [place] [address] * Magnesium (11/01/2024 1:19 PM CDT) Pathologist [facility] Magnesium 1.8 1.4 - 2.5 mg/dL Blood 11/01/2024 1:19 PM CDT 11/01/2024 1:35 PM CDT Shahida Serna [place] LAB BLOOD ORDERABLES F inal Result Performing Organization Address [place] [facility] de Phone Number [facility] [address] [address] Department [place] [address] * (ABNORMAL) Comprehensive metabolic panel (11/01/2024 1:19 PM CDT) Pathologist [facility] Sodium 136 135 - 145 mmol/L Potassium, pl 5.0(H) 3.3 - 4.9 mmol/L [facility] Comment:Hemolysis present. R esults may be affected. Chloride 102 97 - 110 mmol/L [facility] CO2 23 22 - 32 mmol/L [facility] Anion gap 11 2 - 15 mmol/L [facility] BUN 8 6 - 25 mg/dL [facility] Creatinine 0.59(L) 0.80 - 1.30 mg/dL [facility] Comment:Icteric sample, test results may be affected. Glucose 122 70 - 199 mg/dL [facility] Comment: Interpretive Data Fasting glucose [...] Current interpretive data was last revised 2022. Calcium 8.7 8.5 - 10.3 mg/dL [facility] Bilirubin, total 8.2(H) 0.1 - 1.2 mg/dL [facility] Protein, pl 7.8 6.5 - 8.5 g/dL [facility] Albumin 4.0 3.5 - 5.0 g/dL [facility] Alk phos 234(H) 40 - 130 Units/L [facility] ALT 44 7 - 55 Units/L [facility] AST 186(H) 10 - 50 Units/L [facility] Comment:Hemolysis present. R esults may be affected. Blood 11/01/2024 1:19 PM CDT 11/01/2024 1:35 PM CDT us Shahida HO LAB BLOOD ORDERABLES F inal Result [facility] [address] Department [place] [address] * Critical Care (11/01/2024 12:56 PM CDT) Narrative Gordo Fischer MD - 11/01/2024 12:56 PM CDT Gordo Fischer MD 11/15/2024 10:48 PM Critical Care Performed by: Shahida Serna PA Authorized by: Shahida Serna PA CRITICAL CARE: Team: ALTAGRACIA Shift: AM Level of Billing: Critical Care My time spent with this patient was 115 minutes: Critical Provider Statement: I have seen and examined the patient on this day of service. I have reviewed and confirmed the history, physical exam, laboratory and radiologic data as documented in the signed ICU note. I have reviewed and discussed my treatment plan with the ICU team and other medical/travel service consultant staff, making frequent assessments and decisions regarding this patient's complex medical care. Critical Care time was exclusive of time spent performing separately billed procedures, treating other patients, and teaching. This time was in addition to and separate from critical care provided by other practitioners in my group on this day of service. Critical Care was necessary to treat or prevent imminent or life-threatening deterioration of the following conditions: I spent time reviewing and interpreting data from bedside monitors, laboratory results, and imaging, I spent time discussing the management of this critically ill patient with consultants and the medical staff and I spent time documenting in the medical record us Shahida HO IN CLINIC[facility] Final Result * Hepatitis C antibody Blood (08/29/2023 9:51 PM CDT) Hep C Ab Nonreactive Nonreactive Comment:Antibodies to HCV no t detected. Does NOT exclude the possibility of recent exposure to HCV. Current interpretive data was last revised on 22 Blood 08/29/2023 9:51 PM CDT 08/29/2023 10:10 PM CDT us Gordo Soliz MD LAB MICROBIOLOGY - GENE RAL ORDERABLES Final Result Performing Organization Address City/State/ZIP Co al Phone Number [facility] [place] [address] from Last 3 Months or Most Recently Relevant to Health Maintenance Insurance [facility] MARITZA HERNANDEZ Advance Directives For more information, please contact: [phone] * Full Code (Latest Code Status on File) Date Activated Date Inactivated Comments 01/01/2025 4:20 AM 01/18/2025 5:24 PM * Full Code Date Activated Date Inactivated Comments 12/08/2024 3:58 AM 12/09/2024 2:55 PM * Full Code Date Activated Date Inactivated Comments 11/01/2024 1:11 PM 11/09/2024 4:40 PM * Full Code Date Activated Date Inactivated Comments 10/05/2024 2:42 PM 10/19/2024 5:43 PM * Full Code Date Activated Date Inactivated Comments 09/21/2024 1:17 AM 09/23/2024 10:31 PM Care Teams Border Police Relationship Specialty Start Date End Date Laurent Gonzalez MD [address] [place] [address] PCP - General Hematology and Oncology 10/18/23 Ray Sainz MD [address] [facility] [address] [place] [address] 02/10/20 [place] [id number] [address] [facility] [address] [place] [address] Consulting Physician Family Medicine 05/05/22 Miscellaneous, Not In File 12/14/22 [place] [id number] [address] [facility] [address] [place] [address] Consulting Physician Orthopedic Surgery 08/18/24
--- OUTSIDE RECORDS SUMMARY | 2025-01-19 06:28 | XMS_ITS | Clinical Summary ---
Author Organization [facility] Facility Address [address] [address] Care Team Providers Care Glove Printer Name Role Phone Laurent Gonzalez MD Primary Care Provider [phone] Encounters Date Type Department Care Team Description 11/10/2024 Documentation Only [facility], [address] [phone] Perla Feldman from Last 3 Months Social History Tobacco Use Types Packs/Day Years Used Date Smoking Tobacco: Never Assessed Sex and Gender Information Value Date Recorded Sex Assigned at Not on file Legal Sex Male 8:39 AM EDT Gender Identity Not on file Sexual Orientation Not on file Plan of Treatment Health Maintenance Due Date Last Done Comments Hepatitis B Vaccine (1 of 3 - 19+ 3-dose series) 11/06/2015 Pneumococcal Vaccine: Peds ( 0 to 5 Years) and At-Risk Patients (6 to 49 Years) (1 of 2 - PCV) 11/06/2015 Influenza Vaccine (#1) 2025 1, 05/03/2009, 05/03/2009 Insurance [facility] ([id number]) Care Teams Glove Printer Relationship Specialty Start Date End Date Laurent Gonzalez MD PCP - General Hematology 11/08/24
--- OUTSIDE RECORDS SUMMARY | 2025-01-19 06:28 | XMS_ITS | Encounter Summary ---
Author Organization [facility] Address 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
[2025-01-19] MEDS: SODIUM CHLORIDE 0.9% IV 1,000 ML 999 ML IV CONT (06:54)
[2025-01-19] MEDS: ONDANSETRON INJ 4 MG/2 ML VIAL IV PUSH (06:55)
[2025-01-19] MEDS: HYDROmorphone HCL INJ (*CRX) 1 MG/ML SYR IV PUSH ×2 (06:55→07:33)
[2025-01-19 06:57] LABS: Hematocrit 24.4 % (42.0-52.0); Hemoglobin 8.1 g/dL (14.0-18.0); Immature Granulocyte Percent A 0.4 % (0-0.5); Immature Reticulocyte Fraction 35.7 % (3.0-15.9); Lymphocytes Absolute Auto 5.24 K/mm3 (0.9-3.2); Mean Corpuscular HGB Conc 33.2 g/dl (32-36); Mean Corpuscular Hemoglobin 29.6 pg (26-34); Mean Corpuscular Volume 89.1 fl (80-100); Nucleated Red Blood Cells Absolute Auto 0.060 K/mm3 (0.0-0.012); Nucleated Red Blood Cells Perc 0.4 % (0.0-0.2); Platelet Count Result 274 k/mm3 (150-375); Red Blood Count 2.74 M/mm3 (4.6-6.20); Reticulocyte Hemoglobin Conten 33.4 pg (28.2-36.6); Reticulocytes Absolute 0.35 10^6/uL (0.02-0.10); White Blood Count 14.6 K/mm3 (4.5-10.0)
--- NOTE | 2025-01-19 07:01 | PC.NURSE ---
Pt states he can not provide a urine sample at this time. Pt states he will use call light.
[2025-01-19 07:08] LABS: Alanine Aminotransferase 24 U/L (6-50); Albumin Level 4.4 g/dL (3.5-5.1); Alkaline Phosphatase 236 U/L (38-126); Anion Gap 8 mmol/L (4-12); Aspartate Amino Transferase 50 U/L (17-59); Bilirubin,Total 7.4 mg/dL (0.2-1.3); Blood Urea Nitrogen 4 mg/dL (9-20); Calcium 8.8 mg/dL (8.4-10.2); Carbon Dioxide 26 mmol/L (22-30); Chloride 104 mmol/L (98-107); Estimated CRCL calculation 190 ml/min; Estimated Glomerular Filt Rate > 60; Glucose 127 mg/dL (65-110); Magnesium 2.1 mg/dL (1.6-2.3); Potassium 3.6 mmol/L (3.4-5.0); Sodium 138 mmol/L (137-145); Total Protein 8.5 g/dL (6.3-8.2)
--- NOTE | 2025-01-19 07:10 | PC.NURSE ---
pt states he is unable to void at this time, refuses straight cath
[2025-01-19 07:20] LABS: Troponin I < 0.012 ng/mL (0.000-0.034)
[2025-01-19 07:25] LABS: Giant Platelets Present; Sickle Cells 1+
[2025-01-19 07:27] LABS: Anisocytosis 1+; Hypochromasia 1+; Schistocytes Rare; Target Cells 2+
[2025-01-19 07:35] LABS: Polychromasia Occasional
--- NOTE | 2025-01-19 07:36 | PC.NURSE ---
pt still unable to void at this time, refusing straight cath
--- NOTE | 2025-01-19 07:58 | PC.NURSE ---
Pt still refusing to try to attempt to provide urine sample. states you cant force me to pee
[2025-01-19] MEDS: KETOROLAC 30 MG/ML VIAL (*BKC) IV PUSH (07:59)
[2025-01-19 08:56] LABS: Need Manual Microscopic Reviewed
[2025-01-19 08:59] LABS: Add Urine Microscopic? YES; Appearance Urine Cloudy (Clear); Glucose Urine UA Negative (Negative); Leukocyte Esterase Ur Trace LEU/UL (Negative); Nitrate Urine Positive (Negative); Specific Grav Ur 1.014 (1.001-1.035)
[2025-01-19] MEDS: SODIUM CHLORIDE 0.9% IV 1,000 ML 150 ML IV CONT (09:22)
[2025-01-19] MEDS: HYDROmorphone HCL INJ (*CRX) 1 MG/ML SYR 2 MG IV PUSH ×5 (09:23→23:41)
--- OUTSIDE RECORDS SUMMARY | 2025-01-19 11:31 | XMS_ITS | Encounter Summary ---
Author Organization [facility] Address [address] [place] [address] Care Team Providers Care Dental Chairside Assistant Name Role Phone Nina Hines APRN-PORTFOLIO ADMINISTRATOR Primary Care Provider + Given, None Primary Care Provider Laurent Noel MD Primary Care Provider [phone] Reason for Visit * Reason Onset Date Comments MEDICATION REFILL 07/16/2023 Encounter Details Date Type Department Care Team (Late st Contact Info) Description 07/16/2023 Refill [facility] - Internal Medicine [address] , [address] [phone] Nina Hines, SIEVE MAKER-PORTFOLIO ADMINISTRATOR [address] [phone] MEDICATION REFILL Social History Tobacco [...] medical care, and heating? Patient declined 06/16/2023 [facility] Occupat ional Health - Occupational Stress [...] or slept in a correction (including now)? 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 Gender Identity Not on file Sexual Orientation [...] of Assessment Author No 06/16/2023 2:45 PM BREAK OUT WORKER Redshaw, Radha K, RN * Does person [...] Under Investigation 05/15/2024 05/15/2024 05/16/2024 3:26 AM BREAK OUT WORKER COVID-19 Under Investigation 06/30/2024 06/30/2024 06/30/2024 7:12 PM BREAK OUT WORKER documented as of this encounter Care Teams Dental Chairside Assistant Relationship Specialty Start Date End Date Nina Hines, GASTON-PORTFOLIO ADMINISTRATOR [address] [phone] PCP - General Nurse Practitioner 07/16/23 08/26/23 Given, None PCP - General 09/28/23 01/14/24 Laurent Gonzalez MD [address] [place] [address] PCP - General Hematology 01/15/24 documented as of this encounter
--- OUTSIDE RECORDS SUMMARY | 2025-01-19 11:31 | XMS_ITS | Clinical Summary ---
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 [facility] - 02/16/2019 8:22 PM CDT No Laboratory evidence of HIV infection. us Steve Flynn MD LAB - CHEMISTRY ORDERA BLES Final Result [facility] [address] [place] [address] from Last 3 Months or Most Recently Relevant to Health Maintenance Additional Health Concerns Infection Onset Date Last Indicated C Diff Hx 09/29/2023 09/29/2023 Insurance [place]ICAID [place] [id number] [place] - [employer] COMMUNITY PLAN Advance Directives * Full Code (Latest Code Status on File) Date Activated Date Inactivated Comments 12/24/2024 5:47 AM 12/31/2024 12:06 PM * Full Code Date Activated Date Inactivated Comments 12/24/2024 5:26 AM 12/24/2024 5:47 AM * Full Code Date Activated Date Inactivated Comments 09/08/2024 1:39 AM 09/18/2024 11:40 AM * Full Code Date Activated Date Inactivated Comments 09/08/2024 1:36 AM 09/08/2024 1:39 AM * Full Code Date Activated Date Inactivated Comments 08/19/2024 3:11 AM 08/23/2024 2:59 PM Care Teams Grinder And Plater Relationship Specialty Start Date End Date Laurent Gonzalez MD [address] [place] [address] PCP - General Hematology 01/15/24
--- OUTSIDE RECORDS SUMMARY | 2025-01-19 11:31 | XMS_ITS | Encounter Summary ---
Author Organization [facility] Healthcare Address [address] [place] [address] Care Team Providers Care Supply And Distribution Manager Name Role Phone Ray Sainz MD Unavailable [phone] Gordo Herrera MD Unavailable [phone] Miscellaneous, Not In File Unavailable Unava ilable Laurent Gonzalez MD Primary Care Provider [phone] Mariam Hedrick Unavailable Unavailable Ning Lowery DNP Unavailable [phone] Ana Duran RN Unavailable [phone] Areli Zuniga Unavailable Unavailable Ning Lowery DNP Unavailable [phone] Tobin Terrell MD Unavailable [phone] Encounter Details Date Type Department Care Team (Late st Contact Info) Description 05/15/2024 Documentation [facility] Main [address] [address] Forrest Domínguez, BOUCHRA Social History Tobacco Use Types Packs/Day Years Used Date Smoking Tobacco: Never Smokeless Tobacco: Never Alcohol Use Standard Drinks/Week Comments Not Currently 0 (1 standard drink = 0.6 oz pur e alcohol) [facility] Utilities Answer Date Recorded In [...] often do you attend chur ch or pentecostal services? Never 05/13/2024 Do you belong to any clubs o r organizations such as nondenominational groups, unions, fraternal or athletic groups, or [...] time in the past [address] [facility], were you homeless or living in a correction (including now)? No 05/13/2024 Personal Safety Answer Date Recorded Have you ever been in or are you currently in a harmful physical or emotional relationship or is someone making you feel afraid or unsafe? 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 difficile suspected 07/24/2024 07/24/202407/29 3:05 AM PRODUCTION OFFICER COVID: Suspected 08/13/2024 08/13/2024 08/13/2024 1:30 PM CDT COVID: Suspected 11/01/2024 11/01/2024 11/01/2024 2:39 PM CDT Ring Surveillance: C. auris 11/08/2024 11/08/2024 11/15/2024 7:26 PM CDT COVID: Suspected 12/23/2024 12/23/2024 12/23/2024 5:12 PM CDT documented as of this encounter Care Teams Supply And Distribution Manager Relationship Specialty Start Date End Date Laurent Gonzalez MD [address] [place] [address] PCP - General Hematology and Oncology 10/18/23 Ray Sainz MD [address] [facility] [address] [place] [address] 02/10/20 [place] [address] [facility] [address] [place] [address] Consulting Physician Family Medicine 05/05/22 Miscellaneous, Not In File 12/14/22 Mariam Hedrick Outpatient Wildlife Conservation Officer 05/31/24 08/15/24 Ning Lowery DNP [address] [facility] [address] [place] [address] Nurse Practitioner Internal Medicine 05/31/24 08/15/24 Ana Duran, BOUCHRA [address] [facility] [address] [place] [address] LAUREN Outpatient Wildlife Conservation Officer 07/29/24 08/02/24 Areli Zuniga Outpatient Wildlife Conservation Officer 08/16/24 09/23/24 Ning Lowery DNP [address] [facility] [address] [place] [address] Nurse Practitioner Internal Medicine 08/16/24 09/23/24 [place] [address] [facility] [address] [place] [address] Consulting Physician Orthopedic Surgery 08/18/24 documented as of this encounter
--- OUTSIDE RECORDS SUMMARY | 2025-01-19 11:31 | XMS_ITS | CCD ---
Author Name Interface, [address] Address More breakthroughs. More victories. [address] Oncology Address More breakthroughs[place] [address] Reason for Visit Social History
--- OUTSIDE RECORDS SUMMARY | 2025-01-19 11:31 | XMS_ITS | Encounter Summary ---
Author Organization [facility] Healthcare Address [address] [place] [address] Care Team Providers Care Dining Server Name Role Phone Ray Sainz MD Unavailable [phone] Gordo Herrera MD Unavailable [phone] Miscellaneous, Not In File Unavailable Unava ilable Laurent Gonzalez MD Primary Care Provider [phone] Mariam Hedrick Unavailable Unavailable Ning Lowery DNP Unavailable [phone] Ana Duran RN Unavailable [phone] Areli Zuniga Unavailable Unavailable Ning Lowery DNP Unavailable [phone] Tobin Terrell MD Unavailable [phone] Encounter Details Date Type Department Care Team (Late st Contact Info) Description 08/02/2024 [facility] Sickle Cell CHW Initial Eligibility Review [facility] Sickle Cell Disease Community Health Worker [address] [place] [id number] Divya Wallace Social History Tobacco Use Types Packs/Day Years Used Date Smoking Tobacco: Never Smokeless Tobacco: Never Alcohol Use Standard Drinks/Week Comments Not Currently 0 (1 standard drink = 0.6 oz pur e alcohol) [facility] Utilities Answer Date Recorded In the past 12 months has [employer], gas, oil, or water [employer] threatened to shut off services in your home? No 07/26/2024 Social Connection and Isolation Panel Answer Date Recorded In a typical week, how many times do you talk on the phone with family, friends, or neighbors? Never 07/26/2024 How often do you get together with friends or re latives? Never 07/26/2024 How often do you attend mu-ism or yarsanism serv ices? 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 Gender Identity Male 12/06/2024 9:44 PM [...] documented as of this encounter Care Teams Dining Server Relationship Specialty Start Date End Date Laurent Gonzalez MD [address] [place] [address] PCP - General Hematology and Oncology 10/18/23 Ray Sainz MD [address] [facility] [address] [place] [address] 02/10/20 [place] [address] [facility] [address] [place] [address] Consulting Physician Family Medicine 05/05/22 Miscellaneous, Not In File 12/14/22 Mariam Hedrick Outpatient Steel Cutter 05/31/24 08/15/24 Ning Lowery DNP [address] [facility] [address] [place] [address] Nurse Practitioner Internal Medicine 05/31/24 08/15/24 Ana Duran, RN [address] [facility] [address] [place] [address] SHOP Outpatient Steel Cutter 07/29/24 08/02/24 Areli Zuniga Outpatient Steel Cutter 08/16/24 09/23/24 Ning Lowery DNP [address] [facility] [address] [place] [address] Nurse Practitioner Internal Medicine 08/16/24 09/23/24 [place] [address] [facility] [address] [place] [address] Consulting Physician Orthopedic Surgery 08/18/24 documented as of this encounter
--- OUTSIDE RECORDS SUMMARY | 2025-01-19 11:32 | XMS_ITS | Clinical Summary ---
Author Organization [facility] Address [address] [place] [address] Care Team Providers Care Retort Condenser Attendant Name Role Phone Ray Sainz MD Unavailable [phone] Gordo Herrera MD Unavailable Miscellaneous, Not In File Unavailable Unava ilable Laurent Gonzalez MD Primary Care Provider [phone] Tobin Terrell MD Unavailable [phone] Allergies Active Allergy Reactions Criticality Noted [...] Monitor Assessment & Plan (07/24/2024 3:17 AM RN LPN LVN): Repleted by ER Monitor Sickle cell crisis 05/11/2024 Assessment & Plan (07/24/2024 3:19 AM RN LPN LVN): Patient presenting with pain in the back, [...] - Patient requesting dilaudid pushes instead of [employer] - Changed to dilaudid 2 mg q3hr [...] 05/25/2023 Assessment & Plan (05/27/2023 5:37 PM RN LPN LVN): Prior MD noted him refusing lab draws and all meds except opioids, similar to last admission. Also documented non-compliance with recommended outpatient hematology f/u and methadone dosing. Mouth pain 05/01/2023 Assessment & Plan (05/01/2023 5:35 PM RN LPN LVN): No lesion or signs of infxn seen. He will need to arrange outpatient dental f/u. - viscous lidocaine prn Insomnia 02/07/2023 Assessment & Plan (02/09/2023 2:08 PM CDT): - ramelteon not effective, trial of trazodone on 02/07 Acute on chronic pain 01/30/2023 Assessment & Plan (05/31/2023 1:59 PM RN LPN LVN): P/w complaints of acute on chronic pain. [...] admission would be 48h of IV Dilaudid [employer]. He demanded that IV pushes of dilaudid be used instead. This request was refused. -IV Dilaudid [employer] 1mg q15min. Discharge later today. -Scheduled tylenol [...] Started on bowel regimen. - Continue dilaudid [employer] 2mg q20 min. Weaned dPCA 2mg to [...] dizziness. He was initially established with [facility], saw Dr. Gonzalez once since his transition to adult care then was following intermittently at [facility] given proximity to his place. There was concern by his track grinder operator Dr. Bryon marquis: opioid use disorder, having [...] conflict and refused to continue care at [facility]. -He has been hospitalized near continuously for the last 2 months. -Hematology and pain team consulted, discussed pain management w/ them -Pain regimen: on 12/21- continue scheduled Tylenol 1 g q.6 hours, switch Oxy 30 mg to q.4 hours instead of p.r.n., added IV toradol 15 g q6hrs and switched his IV dilaudid to [employer] (0.2 mg q15 mins) to prevent the euphoric effect. [employer] to 0.5 Q20 on 12/22. Discussed with pt no further uptitrations of [employer]. Some mild somnolence noted 12/23. Starting lidocaine infusion on 12/24 -Ongoing concerns for pain seeking behavior. Pain should be controlled within few days on the [employer] or lido gtt then switched to po regimen. Pt agreed to hard deadline of 12/25 for start weaning of the [employer] and scheduled oxycodone. - 12/25 weaned off [employer]. Regimen changed to oxycodone Q4+APAP 650 Q4. [...] appointment Assessment & Plan (05/29/2023 3:54 PM RN LPN LVN): Hgb at baseline on admission. No chest pain or shortness of breath to suggest acute chest. Continue folic acid. Per chart review, hydroxyurea was discontinued. Has missed appointments to get crizanlizumab infusion. -He plans to F/U with [facility] later this month Assessment & Plan (05/06/2023 1:09 PM RN LPN LVN): Pt presents with acute on chronic pain [...] taken for days - had started dilaudid [employer] at outpatient heme recommendation, pt with unrelenting [...] outpatient heme note would not recommend cont [employer] past 5-6 days, may need pain consult if unable to be weaned for consideration of lidocaine gtt which [facility] not [facility] - Hgb has slowly decreased but still [...] regimen (oxycodone) - Home folic acid - [employer] at 0.5mg IV, lockout q15m, 1h limit 2.0mg; telemetry with pulse ox while on [employer]. Transitioned to IV pushes instead of [employer], 2 mg Q3 hours . - Given prior history of inappropriate refusal to wean and per hematology recommendations previously, would look to wean off [employer] by day 3-4 as clinically appropriate and recommend to avoid continuing [employer] beyond 5-6 days with consideration of lidocaine [...] hips/back/long bones/joints including feet. Recently hospitalized at [facility] in [place]. Notes dehydration related to GI losses. Admitted for fluids, pain control. - S/p [employer] - On 09/01, he is agreeable to transitioning off [employer] to Dilaudid now at 0.5 mg IV q4h PRN alternating with oxy-APAP 10-325 q4h PRN - Continue on scheduled oxycodone to 15 mg Q4 hours - Increase Gabapentin to 300 mg TID, continue flexeril 10 mg TID and start on amitriptyline 10 mg daily (uptitrate as needed), meloxicam daily. - LR 75 cc/h - Folic acid - Has had concerning behavior in [facility] sickle cell clinic previously, no longer will be seeing his prior track grinder operator Dr. Hernandez - Hematology consulted: He has [...] Reviewed PDMP: On 08/22 on discharge from [facility] by Dr. Shannon Russell received oxycodone 10 mg #30 tablets and Percocet 10-325 mg #90 tablets. 09/11/23- Hb 6.6, [facility] Assessment & Plan (01/16/2023 4:40 PM CDT): Keep track grinder operator apt on 01/29/23. Emergency room today for Sickle Cell Crisis pain relief. Chronic pain syndrome 12/25/2022 Lightheadedness 12/19/2022 Asthma 12/11/2022 Hypokalemia 12/11/2022 Rectal bleeding 12/11/2022 Vasoocclusive sickle cell crisis 09/01/2022 Assessment & Plan (09/04/2022 1:46 PM CDT): Treating for presumed acute pain crisis Between hematologists, with ongoing plan to establish care in [place], [place] (soonest appointment in October but patient [...] bridge script until patient establishes with new track grinder operator next week Assessment & Plan (09/01/2022 10:39 AM CDT): possible pain crises vs functional. Fired from prior track grinder operator due to pain seeking behaviors -percocet 10 [...] imodium, bentyl - Seen by gastrotenerologist at [facility], recommended outpatient follow up & colonoscopy; no need to pursue inpatient based on findings/data thus far Assessment & Plan (09/02/2022 3:18 PM CDT): C diff negative, stool cultures negative Assessment & Plan (09/01/2022 10:39 AM CDT): Pending stool culture and cdiff Black stools 05/12/2022 Dysuria 05/12/2022 Hypokalemia 05/12/2022 Assessment & Plan (07/24/2024 3:17 AM RN LPN LVN): Repleted by ER Monitor Assessment & Plan [...] complication Assessment & Plan (04/27/2023 1:33 AM RN LPN LVN): No c/f exacerbation -cont albuterol PRN Assessment [...] CDT - 01/19/2025 12:13 AM CDT Emergency [facility] Emergency Department [address] [place] [id number] Abena Diego MD Malingering (Primary Dx); H/O sickle cell disease Discharge Disposition: Discharge to home or self care 01/01/2025 12:47 AM CDT - 01/18/2025 1:24 PM CDT Hospital Encounter [facility] 5 Med Surg [facility] [place] [address] Bill Carrasquillo DO Medavaram, Atul, MD Kruse, Brandon Chase, DO Pham, Kevin, DO Chowdhury, Farhanaz, MD Lopez, Manuel Emilio, MD Acute sickle cell crisis (HCC) (Primary Dx) Discharge Disposition: Discharge to home or self care 12/23/2024 2:02 PM CDT - 12/23/2024 8:39 PM CDT Emergency [facility] Emergency Department [address] [place] [id number] Elijah Ramirez MD 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) Discharge Disposition: Discharge to home or self care 12/22/2024 12:38 PM CDT - 12/22/2024 5:06 PM CDT Emergency [facility] Emergency Department [address] [place] [id number] 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) Discharge Disposition: Discharge to home or self care 12/09/2024 2:54 PM CDT - 12/09/2024 3:15 PM CDT Emergency [address] [address] Guillermo Newton MD Sickle cell pain crisis (HCC) (Primary Dx) Discharge Disposition: Discharge to home or self care 12/07/2024 10:44 PM CDT - 12/09/2024 2:46 PM CDT Hospital Encounter [address] [address] Lala Ace MD Medavaram, Atul, MD Smith, Thomas Hamilton, MD Yaganti, Srinivasarao C., MD Sickle cell pain crisis (HCC) (Primary Dx); Hyperbilirubinemia ; Elevated LFTs; Leukocytosis, unspecified type; Normocytic hypochromic anemia; Chronic narcotic dependence (HCC); Malingering Discharge Disposition: Discharge to home or self care 11/01/2024 12:55 PM CDT - 11/09/2024 11:30 AM CDT Hospital Encounter [facility] Oncology [address] [place] [address] Gordo Fischer MD Onaghise, Jude, MD Acute chest syndrome (HCC) (Primary Dx); Sickle cell crisis acute chest syndrome (HCC) Discharge Disposition: Left Against Medical Advice 10/05/2024 5:04 AM CDT - 10/19/2024 1:25 PM CDT Hospital Encounter [place] [address] [address] [place] [address] Tone Arrington Jr., MD Perez, MD Eusebio [...] often do you attend chur ch or temple services? Never 12/08/2024 Do you belong to any clubs o r organizations such as buddhist groups, unions, fraternal or athletic groups, or [...] any time in the past 12 m [facility], were you homeless or [...] often do you attend chur ch or temple services? Never 01/03/2025 Do you belong to any clubs o r organizations such as buddhist groups, unions, fraternal or athletic groups, or [...] any time in the past 12 m [facility], were you homeless or living in a intermediate (including now)? No 01/03/2025 [facility] Utilities Answer Date Recorded In the [...] on file Legal Sex Male 10:50 AM RN LPN LVN Gender Identity Male 12/06/2024 9:44 PM CDT [...] AG, URINE Routine 11/01/2024 9:28 PM CDT ND INSJ NON-TUNNELED CENTRAL VENOUS CATH AGE 6 [...] was last reviewed 2021. Testing performed by: [facility], [address] [place] [address]., [address] Blood 01/18/2025 6:14 AM CDT 01/18/2025 6:34 AM CDT us Rasta Garcia MD LAB BLOOD ORDERABLES Final Res ult [facility] [address] [facility] Department [place] [address] * (ABNORMAL) Differential, auto (01/18/2025 6:14 AM CDT) [facility] Neutrophil abs 5.66 1.50 - 6.50 K/cumm Comment:Testing performed by : [address] [address] Imm gran abs 0.06 0.00 - 0.10 K/cumm [facility] Comment:Testing performed by : [address], [place]., [address] Lymphocyte abs 4.21(H) 0.80 - 3.30 K/cumm [facility] Comment:Testing performed by : [address], [place]., [address] Monocyte abs 1.53(H) 0.20 - 0.80 K/cumm [facility] Comment:Testing performed by : [address], [place]., [address] Eosinophil abs 0.32 0.00 - 0.50 K/cumm [facility] Comment:Testing performed by : [address] [address] Basophil abs 0.06 0.00 - 0.10 K/cumm [facility] Comment:Testing performed by : [address] [address] Neutrophil pct 47.8 % [facility] Comment: Interpretive Data Percent cell count reference ranges are not reported, since discordance with absolute values may lead to misinterpretation of CBC data. Current Interpretive Data was last revised on 2017. Testing performed by: [address] [address] Imm gran pct 0.5 % [facility] Comment: Interpretive Data Percent cell count reference ranges are not reported, since discordance with absolute values may lead to misinterpretation of CBC data. Current Interpretive Data was last revised on 2017. Testing performed by: [address] [address] Lymphocyte pct 35.6 % [facility] Comment: Interpretive Data Percent cell count reference ranges are not reported, since discordance with absolute values may lead to misinterpretation of CBC data. Current Interpretive Data was last revised on 2017. Testing performed by: [address] [address] Monocyte pct 12.9 % [facility] Comment: Interpretive Data Percent cell count reference ranges are not reported, since discordance with absolute values may lead to misinterpretation of CBC data. Current Interpretive Data was last revised on 2017. Testing performed by: [address] [address] Eosinophil pct 2.7 % [facility] Comment: Interpretive Data Percent cell count reference ranges are not reported, since discordance with absolute values may lead to misinterpretation of CBC data. Current Interpretive Data was last revised on 2017. Testing performed by: [address] [address] Basophil pct 0.5 % [facility] Comment: Interpretive Data Percent cell count reference ranges are not reported, since discordance with absolute values may lead to misinterpretation of CBC data. Current Interpretive Data was last revised on 2017. Testing performed by: [address] [address] Blood 01/18/2025 6:14 AM CDT 01/18/2025 6:34 AM CDT us Rasta Garcia MD LAB BLOOD ORDERABLES Final Res ult [facility] [address] [facility] Department [place] [address] * (ABNORMAL) CBC with auto differential (01/18/2025 6:14 AM CDT) WBC 11.84(H) 3.80 - 9.90 K/cumm Comment:Testing performed by : [address] [address] Hgb 8.3(L) 13.0 - 17.5 g/dL [facility] Comment:Testing performed by : [address] [address] Hct 24.3(L) 38.9 - 50.3 % [facility] Comment:Testing performed by : [address] [address] Plt 302 150 - 400 K/cumm [facility] Comment:Testing performed by : [address] [address] MPV 9.9 9.1 - 12.3 fL [facility] Comment:Testing performed by : [address] [address] RBC 2.79(L) 4.30 - 5.80 M/cumm [facility] Comment:Testing performed by : [address], [address] MCV 87.1 81.3 - 96.4 fL [facility] Comment:Testing performed by : [address] [address] MCH 29.7 27.1 - 33.3 pg [facility] Comment:Testing performed by : [address] [address] MCHC 34.2 32.3 - 35.7 g/dL [facility] Comment:Testing performed by : [address], [address] RDW CV 21.2(H) 11.1 - 14.9 % [facility] Comment:Testing performed by : [address], [address] RDW SD 66.2(H) 35.7 - 48.1 fL [facility] Comment:Testing performed by : [address] [address] NRBC abs 0.05(H) 0.00 - 0.01 K/cumm [facility] Comment:Testing performed by : [address], [address] Morphologic Screen Results confirmed by manual morphology review. [facility] Comment:Testing performed by : [address] [address] Blood 01/18/2025 6:14 AM CDT 01/18/2025 6:34 AM CDT us Rasta Garcia MD LAB BLOOD ORDERABLES Edited Re sult - Final [facility] [address] [place] [address] Department [place] [address] * (ABNORMAL) Reticulocyte Count (01/18/2025 6:14 AM CDT) [facility] Retics, absolute 362(H) 20 - 87 K/cumm Comment:Testing performed by : [address] [address] Retics 12.5(H) 0.4 - 2.9 % [facility] Comment:Testing performed by : [address] [address] Reticulocyte Hgb 31.6 30.5 - 38.0 pg [facility] Comment:Testing performed by : [address] [address] Blood 01/18/2025 6:14 AM CDT 01/18/2025 6:34 AM CDT us Rasta Garcia MD LAB BLOOD ORDERABLES Final Res ult [facility] [address] Department [place] [address] * (ABNORMAL) Basic metabolic panel (01/18/2025 6:14 AM CDT) [facility] Sodium 138 135 - 145 mmol/L Comment:Testing performed by : [address] [address] Potassium, pl 3.3 3.3 - 4.9 mmol/L [facility] Comment:Testing performed by : [address] [address] Chloride 101 97 - 110 mmol/L [facility] Comment:Testing performed by : [address] [address] CO2 25 22 - 32 mmol/L [facility] Comment:Testing performed by : [address] [address] Anion gap 12 2 - 15 mmol/L [facility] Comment:Testing performed by : [address] [address] BUN 4(L) 6 - 25 mg/dL [facility] Comment:Testing performed by : [address] [address] Creatinine 0.61(L) 0.80 - 1.30 mg/dL [facility] Comment:Testing performed by : [address] [address] Glucose 105 70 - 199 mg/dL [facility] [...] was last revised 2022. Testing performed by: [address] [address] Calcium 9.1 8.5 - 10.3 mg/dL [facility] Comment:Testing performed by : [address] [address] Blood 01/18/2025 6:14 AM CDT 01/18/2025 6:34 AM CDT us Rasta Garcia MD LAB BLOOD ORDERABLES Final Res ult [facility] [address] [facility] Department [place] [address] * eGFR (01/17/2025 6:04 AM [...] was last reviewed 2021. Testing performed by: [address] [address] Blood 01/17/2025 6:04 AM CDT 01/17/2025 6:35 AM CDT us Rasta Garcia MD LAB BLOOD ORDERABLES Final Res ult [facility] [address] [facility] Department of Laboratories [place], [place] [id number] * (ABNORMAL) Differential, auto (01/17/2025 6:04 AM CDT) Neutrophil abs 4.97 1.50 - 6.50 K/cumm Comment:Testing performed by : [address] [address] Imm gran abs 0.04 0.00 - 0.10 K/cumm [facility] Comment:Testing performed by : [address] [address] Lymphocyte abs 3.73(H) 0.80 - 3.30 K/cumm [facility] Comment:Testing performed by : [address] [address] Monocyte abs 1.04(H) 0.20 - 0.80 K/cumm [facility] Comment:Testing performed by : [address] [address] Eosinophil abs 0.35 0.00 - 0.50 K/cumm [facility] Comment:Testing performed by : [address] [address] Basophil abs 0.06 0.00 - 0.10 K/cumm [facility] Comment:Testing performed by : [address] [address] Neutrophil pct 48.8 % [facility] Comment: Interpretive Data Percent cell count reference ranges are not reported, since discordance with absolute values may lead to misinterpretation of CBC data. Current Interpretive Data was last revised on 2017. Testing performed by: [address] [address] Imm gran pct 0.4 % [facility] Comment: Interpretive Data Percent cell count reference ranges are not reported, since discordance with absolute values may lead to misinterpretation of CBC data. Current Interpretive Data was last revised on 2017. Testing performed by: [address] [address] Lymphocyte pct 36.6 % [facility] Comment: Interpretive Data Percent cell count reference ranges are not reported, since discordance with absolute values may lead to misinterpretation of CBC data. Current Interpretive Data was last revised on 2017. Testing performed by: [address] [address] Monocyte pct 10.2 % [facility] Comment: Interpretive Data Percent cell count reference ranges are not reported, since discordance with absolute values may lead to misinterpretation of CBC data. Current Interpretive Data was last revised on 2017. Testing performed by: [address] [address] Eosinophil pct 3.4 % [facility] Comment: Interpretive Data Percent cell count reference ranges are not reported, since discordance with absolute values may lead to misinterpretation of CBC data. Current Interpretive Data was last revised on 2017. Testing performed by: [address] [address] Basophil pct 0.6 % [facility] Comment: Interpretive Data Percent cell count reference ranges are not reported, since discordance with absolute values may lead to misinterpretation of CBC data. Current Interpretive Data was last revised on 2017. Testing performed by: [address] [address] Blood 01/17/2025 6:04 AM CDT 01/17/2025 6:35 AM CDT us Rasta Garcia MD LAB BLOOD ORDERABLES Final Res ult [facility] [address] [facility] Department [place] [address] * (ABNORMAL) CBC with auto differential (01/17/2025 6:04 AM CDT) WBC 10.19(H) 3.80 - 9.90 K/cumm Comment:Testing performed by : [address] [address] Hgb 8.3(L) 13.0 - 17.5 g/dL [facility] Comment:Testing performed by : [address] [address] Hct 24.0(L) 38.9 - 50.3 % [facility] Comment:Testing performed by : [address] [address] Plt 329 150 - 400 K/cumm [facility] Comment:Testing performed by : [address] [address] MPV 10.6 9.1 - 12.3 fL [facility] Comment:Testing performed by : [address] [address] RBC 2.77(L) 4.30 - 5.80 M/cumm [facility] Comment:Testing performed by : [address] [address] MCV 86.6 81.3 - 96.4 fL [facility] Comment:Testing performed by : [address] [address] MCH 30.0 27.1 - 33.3 pg [facility] Comment:Testing performed by : [address] [address] MCHC 34.6 32.3 - 35.7 g/dL [facility] Comment:Testing performed by : [address] [address] RDW CV 21.2(H) 11.1 - 14.9 % [facility] Comment:Testing performed by : [address] [address] RDW SD 66.2(H) 35.7 - 48.1 fL [facility] Comment:Testing performed by : [address] [address] NRBC abs 0.06(H) 0.00 - 0.01 K/cumm [facility] Comment:Testing performed by : [address] [address] Morphologic Screen Results confirmed by manual morphology review. [facility] Comment:Testing performed by : [address], [address] Blood 01/17/2025 6:04 AM CDT 01/17/2025 6:35 AM CDT us Rasta Garcia MD LAB BLOOD ORDERABLES Edited Re sult - Final [facility] Department [place] [address] * (ABNORMAL) Reticulocyte Count (01/17/2025 6:04 AM CDT) Pathologist [facility] Retics, absolute 468(H) 20 - 87 K/cumm Comment:Testing performed by : [address] [address] Retics 15.7(H) 0.4 - 2.9 % [facility] Comment:Testing performed by : [address] [address] Reticulocyte Hgb 30.0(L) 30.5 - 38.0 pg [facility] Comment:Testing performed by : [address] [address] Blood 01/17/2025 6:04 AM CDT 01/17/2025 6:35 AM CDT us Rasta Garcia MD LAB BLOOD ORDERABLES Final Res ult [facility] [address] [facility] Department [place] [address] * (ABNORMAL) Basic metabolic panel (01/17/2025 6:04 AM CDT) Sodium 137 135 - 145 mmol/L Comment:Testing performed by : [address] [address] Potassium, pl 3.1(L) 3.3 - 4.9 mmol/L [facility] Comment:Testing performed by : [address] [address] Chloride 101 97 - 110 mmol/L [facility] Comment:Testing performed by : [address] [address] CO2 24 22 - 32 mmol/L [facility] Comment:Testing performed by : [address] [address] Anion gap 12 2 - 15 mmol/L [facility] Comment:Testing performed by : [address] [address] BUN 3(L) 6 - 25 mg/dL [facility] Comment:Testing performed by : [address] [address] Creatinine 0.50(L) 0.80 - 1.30 mg/dL [facility] Comment:Testing performed by : [address] [address] Glucose 125 70 - 199 mg/dL [facility] [...] was last revised 2022. Testing performed by: [address] [address] Calcium 8.9 8.5 - 10.3 mg/dL [facility] Comment:Testing performed by : [address] [address] Blood 01/17/2025 6:04 AM CDT 01/17/2025 6:35 AM CDT us Rasta Garcia MD LAB BLOOD ORDERABLES Final Res ult Performing Organization Address City/[facility]/ZIP Co de Phone Number [facility] [address] [facility] [place] [address] * Troponin T high-sensitivity 4-hour (01/16/2025 6:37 PM CDT) Trop T hs 13 <=22 ng/L Comment: Interpretive Data For further hscTnT resources including the diagnostic algorithm and an aid in interpretation, copy and paste this link: [email or web address].testcatalog.org/show/[email or web address] Current Interpretive Data last revised 2020. Testing performed by: [address] [address] Trop T hs delta 7 ng/L [facility] Comment:Testing performed by : [address] [address] Trop T hs interp Equivocal [facility] Comment:Testing performed by : [address] [address] Blood 01/16/2025 6:37 PM CDT 01/16/2025 6:48 PM CDT Casey Paz MD LAB BLOOD ORDERABLES Final Result Performing Organization Address City/[facility]/ZIP Co de Phone Number [facility] [address] [facility] [place] [address] * Troponin T high-sensitivity 2-hour (01/16/2025 5:09 PM CDT) Trop T hs <6 <=22 ng/L Comment: Interpretive Data For further hscTnT resources including the diagnostic algorithm and an aid in interpretation, copy and paste this link: https://nrl.testcatalog.org/show/hsTrop Current Interpretive Data last revised 2020. Testing performed by: [facility], [address] [place] [address]., [address] Trop T hs delta 0 ng/L [facility] Comment:Testing performed by : [address] [address] Trop T hs interp Insignificant [facility] Comment:Testing performed by : [address] [address] Blood 01/16/2025 5:09 PM CDT 01/16/2025 5:15 PM CDT Casey Paz MD LAB BLOOD ORDERABLES Final Result Performing Organization Address City/[facility]/ZIP Co de Phone Number [address] [place] [address] * Post-Transfusion Reaction ABO/Rh (01/16/2025 3:58 PM CDT) ABO/Rh Post-Transfusi on Reaction A Positive Comment:Testing performed by : [address] [address] Blood 01/16/2025 3:58 PM CDT 01/16/2025 3:59 PM CDT Casey Paz MD LAB BLOOD BANK TEST ORDERA BLES Final Result [address] [place] [address] * Pre-Transfusion Reaction ABO/Rh (01/16/2025 3:58 PM CDT) ABO/Rh Pre-Transfusio n Reaction A Positive Comment:Testing performed by : [address] [address] Blood 01/16/2025 3:58 PM CDT 01/16/2025 3:59 PM CDT us Casey Paz MD LAB BLOOD BANK TEST ORDERA BLES Final Result Performing Organization Address City/[facility]/ZIP Co de Phone Number [facility] [address] [place] [address] * Post TRXN SAMY (01/16/2025 3:58 PM CDT) Yesenia, direct, post-transfusi on Negative Comment:Testing performed by : [address] [address] Blood 01/16/2025 3:58 PM CDT 01/16/2025 3:59 PM CDT us Casey Paz MD LAB BLOOD BANK TEST ORDERA BLES Final Result Performing Organization Address [facility] de Phone Number KENYETTA[address] [place] [address] * Pre TRXN SAMY (01/16/2025 3:58 PM CDT) Direct yesenia pre-transfusio n reaction Negative Comment:Testing performed by : [address] [address] Blood 01/16/2025 3:58 PM CDT 01/16/2025 3:59 PM CDT us Casey Paz MD LAB BLOOD BANK TEST ORDERA BLES Final Result Performing Organization Address City/[facility] Co de Phone Number [facility] [address] [place] [address] * ECG 12 lead (01/16/2025 2:47 PM CDT) Ventricular Rate EKG/Min 79 BPM [facility] Atrial Rate 79 BPM [facility] ND-Interval (MSEC) 190 ms [facility] QRS-Interval (MSEC) 80 ms [facility] QT-Interval (MSEC) 410 ms [facility] QTc 470 ms [facility] P [place] 48 degrees [facility] R [place] 22 degrees [facility] T [place] -16 degrees [facility] Diagnosis Normal sinus rhythm Nonspecific T wave abnormality Abnormal ECG When compared with ECG of 31-DEC-2024 23:51, Nonspecific T wave abnormality now evident in Anterolateral leads Confirmed by MIRYAM GARCÍA M.D. ([id number]) on 01/16/2025 6:28:08 PM [facility] 01/16/2025 2:47 PM CDT 01/16/2025 6:28 PM CDT Casey Paz MD ECG ORDERABLES Final Resu lt Performing Organization Address City/[facility]/ZIP Co de Phone Number [facility] * Troponin T high-sensitivity series (baseline, 2hr, 4hr, 6hr) (01/16/2025 2:40 PM CDT) Pathologist [facility] Trop T hs <6 <=22 ng/L Comment: Interpretive Data For further hscTnT resources including the diagnostic algorithm and an aid in interpretation, copy and paste this link: [email or web address] Current Interpretive Data last revised 2020. Testing performed by: [address] [address] Blood 01/16/2025 2:40 PM CDT 01/16/2025 2:55 PM CDT Casey Paz MD LAB BLOOD ORDERABLES Final Result [facility]9 [facility] Department [place] [address] * (ABNORMAL) Differential, auto (01/16/2025 2:40 PM CDT) Pathologist [facility] Neutrophil abs 5.04 1.50 - 6.50 K/cumm Comment:Testing performed by : [address] [address] Imm gran abs 0.05 0.00 - 0.10 K/cumm [facility] Comment:Testing performed by : [address] [address] Lymphocyte abs 2.46 0.80 - 3.30 K/cumm [facility] Comment:Testing performed by : [address], [place]., [address] Monocyte abs 0.91(H) 0.20 - 0.80 K/cumm [facility] Comment:Testing performed by : [address], [place]., [address] Eosinophil abs 0.41 0.00 - 0.50 K/cumm [facility] Comment:Testing performed by : [address] [address] Basophil abs 0.04 0.00 - 0.10 K/cumm [facility] Comment:Testing performed by : [address] [address] Neutrophil pct 56.6 % [facility] Comment: Interpretive Data Percent cell count reference ranges are not reported, since discordance with absolute values may lead to misinterpretation of CBC data. Current Interpretive Data was last revised on 2017. Testing performed by: [address] [address] Imm gran pct 0.6 % [facility] Comment: Interpretive Data Percent cell count reference ranges are not reported, since discordance with absolute values may lead to misinterpretation of CBC data. Current Interpretive Data was last revised on 2017. Testing performed by: [address] [address] Lymphocyte pct 27.6 % [facility] Comment: Interpretive Data Percent cell count reference ranges are not reported, since discordance with absolute values may lead to misinterpretation of CBC data. Current Interpretive Data was last revised on 2017. Testing performed by: [address] [address] Monocyte pct 10.2 % [facility] Comment: Interpretive Data Percent cell count reference ranges are not reported, since discordance with absolute values may lead to misinterpretation of CBC data. Current Interpretive Data was last revised on 2017. Testing performed by: [address] [address] Eosinophil pct 4.6 % [facility] SHETTY Comment: Interpretive Data Percent cell count reference ranges are not reported, since discordance with absolute values may lead to misinterpretation of CBC data. Current Interpretive Data was last revised on 2017. Testing performed by: [address] [address] Basophil pct 0.4 % [facility] SHETTY Comment: Interpretive Data Percent cell count reference ranges are not reported, since discordance with absolute values may lead to misinterpretation of CBC data. Current Interpretive Data was last revised on 2017. Testing performed by: [address] [address] Blood 01/16/2025 2:40 PM CDT 01/16/2025 2:55 PM CDT Casey Paz MD LAB BLOOD ORDERABLES Final Result [place] [facility]0 [facility] Department [place] [address] * (ABNORMAL) CBC with auto differential (01/16/2025 2:40 PM CDT) WBC 8.91 3.80 - 9.90 K/cumm Comment:Testing performed by : [address] [address] Hgb 8.3(L) 13.0 - 17.5 g/dL [facility] SHETTY Comment:Testing performed by : [address] [address] Hct 24.2(L) 38.9 - 50.3 % [facility] SHETT[facility] Comment:Testing performed by : [address] [address] Plt 316 150 - 400 K/cumm [facility] SHETTY Comment:Testing performed by : [address] [address] MPV 10.1 9.1 - 12.3 fL [facility] [facility] Comment:Testing performed by : [address] [address] RBC 2.80(L) 4.30 - 5.80 M/cumm [facility] SHETT[facility] Comment:Testing performed by : [address] [address] MCV 86.4 81.3 - 96.4 fL [place] SHETT[facility] Comment:Testing performed by : [address] [address] MCH 29.6 27.1 - 33.3 pg [facility] SHETTY Comment:Testing performed by : [address] [address] MCHC 34.3 32.3 - 35.7 g/dL [facility] SHETTY Comment:Testing performed by : [address] [address] RDW CV 21.2(H) 11.1 - 14.9 % [facility] Comment:Testing performed by : [address], [address] RDW SD 66.2(H) 35.7 - 48.1 fL [facility] Comment:Testing performed by : [address] [address] NRBC abs 0.07(H) 0.00 - 0.01 K/cumm [facility] SHETTY Comment:Testing performed by : [address] [address] Morphologic Screen Results confirmed by manual morphology review. [facility] Comment:Testing performed by : [address] [address] Blood 01/16/2025 2:40 PM CDT 01/16/2025 2:55 PM CDT us Casey Paz MD LAB BLOOD ORDERABLES Final Result [facility] SHETT[place] [address] [facility] Department of Laboratories [place], [place] [id number] * XR Chest 1 View (01/16/2025 2:20 [...] Bradley Rushing M.D. MF: CALDERON Report ID: [id number] Reading Location: [id number] Procedure Note Bradley Rushing, DO - 01/16/2025 [...] Bradley Rushing M.D. MF: CALDERON Report ID: [id number] Reading Location: [id number] us Casey Paz MD IMG XR PROCEDURES Final Re sult * Transfuse RBC (01/16/2025 2:09 PM CDT) Blood us Casey Paz MD BLOOD TRANSFUSION ORDERABL ES Final Result [place] [id number] [facility] [place] [address] * Prepare RBC: 1 Units (01/16/2025 11:30 AM CDT) Units requested 1 Comment:Testing performed by : [address], [address] Units requested Ready [place] Comment:Testing performed by : [address] [address] Unit Number [id number] Product [facility] [id number] [facility] Blood Expiration Date [id number] [facility] Product Blood Type (for scanning) 6200 [facility] Product Blood Type APOS [place] Dispense Status DISPENSED [facility] Blood 01/16/2025 11:3 0 AM CDT 01/16/2025 11:29 AM CDT Casey Paz MD BLOOD BANK PRODUCT ORDERAB LES Final Result Performing Organization Address [facility] Co de Phone Number KENYETTA[address] [place] [address] * ABO/Rh (01/16/2025 10:42 AM CDT) Pathologist [facility] ABO/Rh A Positive Comment:Testing performed by : [address], [address] Blood 01/16/2025 10:4 2 AM CDT 01/16/2025 10:47 AM CDT Narrative [facility] - 01/16/2025 11:25 AM CDT Has the patient had Daratumumab or Isatuximab in the past 6 months?->Unknown Casey Paz MD LAB BLOOD BANK TEST ORDERA BLES Final Result Performing Organization Address City/[facility]/ZIP Co de Phone Number [facility] [address] [facility] [place] [address] * Crossmatch (01/16/2025 10:42 AM CDT) Pathologist [facility] Crossmatch Compatible [facility] Unit number for crossmatch [id number] [facility] Crossmatch Compatible [facility] Unit number for crossmatch [id number] [facility] Blood 01/16/2025 10:4 2 AM CDT 01/16/2025 10:47 AM CDT Casey Paz MD LAB BLOOD BANK TEST ORDERA BLES Final Result Performing Organization Address [facility]/ZIP Co de Phone Number [address] [place] [address] * Antibody screen (01/16/2025 10:42 AM CDT) Pathologist [facility] Yesenia, indirect, Gel Interpretation Negative [facility] Comment:Testing performed by : [facility], [address] [place] [address]., [address] Blood 01/16/2025 10:4 2 AM CDT 01/16/2025 10:47 AM CDT Narrative [facility] - 01/16/2025 11:25 AM CDT Has the patient had Daratumumab or Isatuximab in the past 6 months?->Unknown Casey Paz MD LAB BLOOD BANK TEST ORDERA BLES Final Result Performing Organization Address [facility] Co de Phone Number [address] [place] [address] * eGFR (01/16/2025 2:59 AM CDT) [facility] eGFR >90 >=60 mL/min/1. 73 m2 Comment: [...] was last reviewed 2021. Testing performed by: [address] [address] Blood 01/16/2025 2:59 AM CDT 01/16/2025 3:12 AM CDT us Rasta Garcia MD LAB BLOOD ORDERABLES Final Res ult [facility]8 [facility] Department [place] [address] * (ABNORMAL) Differential, auto (01/16/2025 2:59 AM CDT) Neutrophil abs 4.31 1.50 - 6.50 K/cumm Comment:Testing performed by : [address] [address] Imm gran abs 0.03 0.00 - 0.10 K/cumm [facility] Comment:Testing performed by : [address] [address] Lymphocyte abs 3.04 0.80 - 3.30 K/cumm [facility] Comment:Testing performed by : [address] [address] Monocyte abs 0.81(H) 0.20 - 0.80 K/cumm [facility] Comment:Testing performed by : [address] [address] Eosinophil abs 0.38 0.00 - 0.50 K/cumm [place] Comment:Testing performed by : [address] [address] Basophil abs 0.04 0.00 - 0.10 K/cumm [facility] Comment:Testing performed by : [address] [address] Neutrophil pct 50.1 % [facility] Comment: Interpretive Data Percent cell count reference ranges are not reported, since discordance with absolute values may lead to misinterpretation of CBC data. Current Interpretive Data was last revised on 2017. Testing performed by: [address] [address] Imm gran pct 0.3 % [facility] Comment: Interpretive Data Percent cell count reference ranges are not reported, since discordance with absolute values may lead to misinterpretation of CBC data. Current Interpretive Data was last revised on 2017. Testing performed by: [address] [address] Lymphocyte pct 35.3 % [facility] Comment: Interpretive Data Percent cell count reference ranges are not reported, since discordance with absolute values may lead to misinterpretation of CBC data. Current Interpretive Data was last revised on 2017. Testing performed by: [address] [address] Monocyte pct 9.4 % [facility] Comment: Interpretive Data Percent cell count reference ranges are not reported, since discordance with absolute values may lead to misinterpretation of CBC data. Current Interpretive Data was last revised on 2017. Testing performed by: [address] [address] Eosinophil pct 4.4 % [facility] Comment: Interpretive Data Percent cell count reference ranges are not reported, since discordance with absolute values may lead to misinterpretation of CBC data. Current Interpretive Data was last revised on 2017. Testing performed by: [address] [address] Basophil pct 0.5 % [facility] Comment: Interpretive Data Percent cell count reference ranges are not reported, since discordance with absolute values may lead to misinterpretation of CBC data. Current Interpretive Data was last revised on 2017. Testing performed by: [address] [address] Blood 01/16/2025 2:59 AM CDT 01/16/2025 3:13 AM CDT us Rasta Garcia MD LAB BLOOD ORDERABLES Final Res ult [facility] [address] [facility] Department [place] [address] * (ABNORMAL) CBC with auto differential (01/16/2025 2:59 AM CDT) WBC 8.61 3.80 - 9.90 K/cumm Comment:Testing performed by : [address] [address] Hgb 7.0(L) 13.0 - 17.5 g/dL [facility] Comment:Testing performed by : [address] [address] Hct 19.8(L) 38.9 - 50.3 % [facility] Comment:Testing performed by : [address] [address] Plt 276 150 - 400 K/cumm [facility] Comment:Testing performed by : [address] [address] MPV 10.1 9.1 - 12.3 fL [facility] Comment:Testing performed by : [address] [address] RBC 2.31(L) 4.30 - 5.80 M/cumm [facility] Comment:Testing performed by : [address] [address] MCV 85.7 81.3 - 96.4 fL [place] Comment:Testing performed by : [address] [address] MCH 30.3 27.1 - 33.3 pg [facility] Comment:Testing performed by : [address] [address] MCHC 35.4 32.3 - 35.7 g/dL [place] Comment:Testing performed by : [address] [address] RDW CV 21.6(H) 11.1 - 14.9 % [facility] Comment:Testing performed by : [address] [address] RDW SD 65.4(H) 35.7 - 48.1 fL [place] Comment:Testing performed by : [address] [address] NRBC abs 0.07(H) 0.00 - 0.01 K/cumm [facility] Comment:Testing performed by : [address] [address] Morphologic Screen Results confirmed by manual morphology review. [facility] Comment:Testing performed by : [address], [address] Blood 01/16/2025 2:59 AM CDT 01/16/2025 3:13 AM CDT us Rasta Garcia MD LAB BLOOD ORDERABLES Final Res ult Performing Organization Address [facility] de Phone Number [facility] [address] [facility] Department of Laboratories [place], [place] [id number] * (ABNORMAL) Reticulocyte Count (01/16/2025 2:59 AM CDT) Retics, absolute 431(H) 20 - 87 K/cumm Comment:Testing performed by : [address] [address] Retics 18.7(H) 0.4 - 2.9 % [facility] Comment:Testing performed by : [address] [address] Reticulocyte Hgb 28.0(L) 30.5 - 38.0 pg [place] Comment:Testing performed by : [address] [address] Blood 01/16/2025 2:59 AM CDT 01/16/2025 3:13 AM CDT us Rasta Garcia MD LAB BLOOD ORDERABLES Final Res ult Performing Organization Address [facility]/ZIP Co de Phone Number [place] 4986 [facility] Department [place] [address] * (ABNORMAL) Basic metabolic panel (01/16/2025 2:59 AM CDT) Sodium 138 135 - 145 mmol/L Comment:Testing performed by : [address] [address] Potassium, pl 3.2(L) 3.3 - 4.9 mmol/L [facility] Comment:Testing performed by : [address] [address] Chloride 103 97 - 110 mmol/L [place] Comment:Testing performed by : [address] [address] CO2 25 22 - 32 mmol/L [place] Comment:Testing performed by : [address] [address] Anion gap 10 2 - 15 mmol/L [facility] Comment:Testing performed by : [address] [address] BUN 3(L) 6 - 25 mg/dL [place] Comment:Testing performed by : [address] [address] Creatinine 0.49(L) 0.80 - 1.30 mg/dL [place] Comment:Testing performed by : [address] [address] Glucose 154 70 - 199 mg/dL [place] [...] was last revised 2022. Testing performed by: [address] [address] Calcium 8.7 8.5 - 10.3 mg/dL [place] Comment:Testing performed by : [address] [address] Blood 01/16/2025 2:59 AM CDT 01/16/2025 3:12 AM CDT us Rasta Garcia MD LAB BLOOD ORDERABLES Final Res ult [facility] 4[address] [facility] Department [place] [address] * (ABNORMAL) Blood smear review (01/15/2025 5:38 AM CDT) RBC morphology Present(A) Comment:Testing performed by : [address], [place]., [address] Hypochromasia 3-7/HPF(A) [place] Comment:Testing performed by : [address] [address] Anisocytosis Moderate(A) [place] Comment:Testing performed by : [address], [place]., [address] Schistocytes 1-2/HPF(A) [place] Comment:Testing performed by : [address], [place]., [address] Sickle cells 1-2/HPF(A) [place] Comment:Testing performed by : [address] [address] Elliptocytes 8-15/HPF(A) [place] Comment:Testing performed by : [address], [place]., [address] Target cells 3-7/HPF(A) [facility] Comment:Testing performed by : [address] [address] Acanthocytes 3-7/HPF(A) [facility] Comment:Testing performed by : [address], [place]., [address] Platelet estimate Adequate [facility] Comment:Testing performed by : [address], [place]., [address] Blood 01/15/2025 5:38 AM CDT 01/15/2025 6:12 AM CDT us Rasta Garcia MD LAB BLOOD ORDERABLES Final Res ult Performing Organization Address [facility] Co de Phone Number [place] [address] [place] [address] * eGFR (01/15/2025 5:38 AM CDT) eGFR [...] was last reviewed 2021. Testing performed by: [facility], [address] [place] [address]., [address] Blood 01/15/2025 5:38 AM CDT 01/15/2025 6:12 AM CDT us Rasta Garcia MD LAB BLOOD ORDERABLES Final Res ult [place] [address] Department [place] [address] * (ABNORMAL) Differential, auto (01/15/2025 5:38 AM CDT) Neutrophil abs 3.92 1.50 - 6.50 K/cumm Comment:Testing performed by : [address], [place]., [address] Imm gran abs 0.07 0.00 - 0.10 K/cumm [facility] Comment:Testing performed by : [facility], [address] [place] [address], [place]., [address] Lymphocyte abs 3.68(H) 0.80 - 3.30 K/cumm [facility] Comment:Testing performed by : [address], [place]., [address] Monocyte abs 0.80 0.20 - 0.80 K/cumm [facility] Comment:Testing performed by : [address], [place]., [address] Eosinophil abs 0.40 0.00 - 0.50 K/cumm [facility] Comment:Testing performed by : [address], [place]., [address] Basophil abs 0.04 0.00 - 0.10 K/cumm [facility] Comment:Testing performed by : [address] [address] Neutrophil pct 44.0 % [facility] Comment: Interpretive Data Percent cell count reference ranges are not reported, since discordance with absolute values may lead to misinterpretation of CBC data. Current Interpretive Data was last revised on 2017. Testing performed by: [address] [address] Imm gran pct 0.8 % [facility] Comment: Interpretive Data Percent cell count reference ranges are not reported, since discordance with absolute values may lead to misinterpretation of CBC data. Current Interpretive Data was last revised on 2017. Testing performed by: [address] [address] Lymphocyte pct 41.3 % [facility] Comment: Interpretive Data Percent cell count reference ranges are not reported, since discordance with absolute values may lead to misinterpretation of CBC data. Current Interpretive Data was last revised on 2017. Testing performed by: [address] [address] Monocyte pct 9.0 % [facility] Comment: Interpretive Data Percent cell count reference ranges are not reported, since discordance with absolute values may lead to misinterpretation of CBC data. Current Interpretive Data was last revised on 2017. Testing performed by: [address] [address] Eosinophil pct 4.5 % [facility] Comment: Interpretive Data Percent cell count reference ranges are not reported, since discordance with absolute values may lead to misinterpretation of CBC data. Current Interpretive Data was last revised on 2017. Testing performed by: [address] [address] Basophil pct 0.4 % [facility] Comment: Interpretive Data Percent cell count reference ranges are not reported, since discordance with absolute values may lead to misinterpretation of CBC data. Current Interpretive Data was last revised on 2017. Testing performed by: [address] [address] Blood 01/15/2025 5:38 AM CDT 01/15/2025 6:12 AM CDT us Rasta Garcia MD LAB BLOOD ORDERABLES Final Res ult [facility] 27[address] [facility] Department [place] [address] * (ABNORMAL) CBC with auto differential (01/15/2025 5:38 AM CDT) WBC 8.91 3.80 - 9.90 K/cumm Comment:Testing performed by : [address] [address] Hgb 7.3(L) 13.0 - 17.5 g/dL [facility] Comment:Testing performed by : [address] [address] Hct 21.4(L) 38.9 - 50.3 % [facility] Comment:Testing performed by : [address] [address] Plt 316 150 - 400 K/cumm [facility] Comment:Testing performed by : [address] [address] MPV 10.1 9.1 - 12.3 fL [place] Comment:Testing performed by : [address] [address] RBC 2.46(L) 4.30 - 5.80 M/cumm [facility] Comment:Testing performed by : [address] [address] MCV 87.0 81.3 - 96.4 fL [place] Comment:Testing performed by : [address] [address] MCH 29.7 27.1 - 33.3 pg [facility] Comment:Testing performed by : [address] [address] MCHC 34.1 32.3 - 35.7 g/dL [facility] Comment:Testing performed by : [address] [address] RDW CV 21.6(H) 11.1 - 14.9 % [facility] Comment:Testing performed by : [address], [address] RDW SD 67.9(H) 35.7 - 48.1 fL [facility] Comment:Testing performed by : [address] [address] NRBC abs 0.13(H) 0.00 - 0.01 K/cumm [facility] Comment:Testing performed by : [address] [address] Blood 01/15/2025 5:38 AM CDT 01/15/2025 6:12 AM CDT us Rasta Garcia MD LAB BLOOD ORDERABLES Final Res ult [facility] [place] [address] [facility] Department [place] [address] * (ABNORMAL) Reticulocyte Count (01/15/2025 5:38 AM CDT) Retics, absolute 497(H) 20 - 87 K/cumm Comment:Testing performed by : [address] [address] Retics 20.2(H) 0.4 - 2.9 % [facility] Comment:Testing performed by : [address] [address] Reticulocyte Hgb 28.3(L) 30.5 - 38.0 pg [place] SHE[place] Comment:Testing performed by : [address] [address] Blood 01/15/2025 5:38 AM CDT 01/15/2025 6:12 AM CDT us Rasta Garcia MD LAB BLOOD ORDERABLES Final Res ult [facility] 45[address] [facility] Department [place] [address] * (ABNORMAL) Basic metabolic panel (01/15/2025 5:38 AM CDT) Sodium 136 135 - 145 mmol/L Comment:Testing performed by : [address] [address] Potassium, pl 3.2(L) 3.3 - 4.9 mmol/L [facility] SHETT[place] Comment:Testing performed by : [address] [address] Chloride 102 97 - 110 mmol/L [facility] Comment:Testing performed by : [address] [address] CO2 24 22 - 32 mmol/L [facility] Comment:Testing performed by : [address] [address] Anion gap 10 2 - 15 mmol/L [facility] Comment:Testing performed by : [address] [address] BUN 3(L) 6 - 25 mg/dL [facility] Comment:Testing performed by : [address] [address] Creatinine 0.44(L) 0.80 - 1.30 mg/dL [facility] SHETTY Comment:Testing performed by : [address] [address] Glucose 116 70 - 199 mg/dL [facility] [...] was last revised 2022. Testing performed by: [address] [address] Calcium 9.0 8.5 - 10.3 mg/dL [facility] SHETTY Comment:Testing performed by : [address] [address] Blood 01/15/2025 5:38 AM CDT 01/15/2025 6:12 AM CDT us Rasta Garcia MD LAB BLOOD ORDERABLES Final Res ult [facility] SHETTY 3594 [facility] Department [place] [address] * eGFR (01/14/2025 6:18 AM [...] was last reviewed 2021. Testing performed by: [address] [address] Blood 01/14/2025 6:18 AM CDT 01/14/2025 6:28 AM CDT us Rasta Garcia MD LAB BLOOD ORDERABLES Final Res ult [facility] 4500 [facility] Department [place] [address] * Differential, auto (01/14/2025 6:18 AM CDT) Neutrophil abs 4.75 1.50 - 6.50 K/cumm Comment:Testing performed by : [address] [address] Imm gran abs 0.04 0.00 - 0.10 K/cumm [facility] Comment:Testing performed by : [address] [address] Lymphocyte abs 3.30 0.80 - 3.30 K/cumm [facility] Comment:Testing performed by : [address] [address] Monocyte abs 0.76 0.20 - 0.80 K/cumm [facility] Comment:Testing performed by : [address] [address] Eosinophil abs 0.14 0.00 - 0.50 K/cumm [facility] Comment:Testing performed by : [address] [address] Basophil abs 0.04 0.00 - 0.10 K/cumm [facility] Comment:Testing performed by : [address] [address] Neutrophil pct 52.7 % [facility] Comment: Interpretive Data Percent cell count reference ranges are not reported, since discordance with absolute values may lead to misinterpretation of CBC data. Current Interpretive Data was last revised on 2017. Testing performed by: [address] [address] Imm gran pct 0.4 % [facility] Comment: Interpretive Data Percent cell count reference ranges are not reported, since discordance with absolute values may lead to misinterpretation of CBC data. Current Interpretive Data was last revised on 2017. Testing performed by: [address] [address] Lymphocyte pct 36.5 % [facility] Comment: Interpretive Data Percent cell count reference ranges are not reported, since discordance with absolute values may lead to misinterpretation of CBC data. Current Interpretive Data was last revised on 2017. Testing performed by: [address] [address] Monocyte pct 8.4 % [facility] Comment: Interpretive Data Percent cell count reference ranges are not reported, since discordance with absolute values may lead to misinterpretation of CBC data. Current Interpretive Data was last revised on 2017. Testing performed by: [address] [address] Eosinophil pct 1.6 % [facility] Comment: Interpretive Data Percent cell count reference ranges are not reported, since discordance with absolute values may lead to misinterpretation of CBC data. Current Interpretive Data was last revised on 2017. Testing performed by: [address] [address] Basophil pct 0.4 % [facility] Comment: Interpretive Data Percent cell count reference ranges are not reported, since discordance with absolute values may lead to misinterpretation of CBC data. Current Interpretive Data was last revised on 2017. Testing performed by: [address] [address] Blood 01/14/2025 6:18 AM CDT 01/14/2025 6:28 AM CDT us Rasta Garcia MD LAB BLOOD ORDERABLES Final Res ult [facility] 4500 [facility] Department [place] [address] * (ABNORMAL) CBC with auto differential (01/14/2025 6:18 AM CDT) WBC 9.03 3.80 - 9.90 K/cumm Comment:Testing performed by : [address] [address] Hgb 7.5(L) 13.0 - 17.5 g/dL [facility] Comment:Testing performed by : [address] [address] Hct 21.8(L) 38.9 - 50.3 % [facility] Comment:Testing performed by : [address] [address] Plt 287 150 - 400 K/cumm [facility] Comment:Testing performed by : [address] [address] MPV 10.1 9.1 - 12.3 fL [facility] Comment:Testing performed by : [address] [address] RBC 2.47(L) 4.30 - 5.80 M/cumm [facility] Comment:Testing performed by : [address] [address] MCV 88.3 81.3 - 96.4 fL [facility] Comment:Testing performed by : [address] [address] MCH 30.4 27.1 - 33.3 pg [facility] Comment:Testing performed by : [address] [address] MCHC 34.4 32.3 - 35.7 g/dL [facility] Comment:Testing performed by : [address] [address] RDW CV 22.0(H) 11.1 - 14.9 % [facility] Comment:Testing performed by : [address] [address] RDW SD 69.9(H) 35.7 - 48.1 fL [facility] Comment:Testing performed by : [facility], [address] [place] [address]., [address] NRBC abs 0.18(H) 0.00 - 0.01 K/cumm [facility] SHETTY Comment:Testing performed by : [address] [address] Morphologic Screen Results confirmed by manual morphology review. [facility] Comment:Testing performed by : [address] [address] Blood 01/14/2025 6:18 AM CDT 01/14/2025 6:28 AM CDT us Rasta Garcia MD LAB BLOOD ORDERABLES Edited Re sult - Final Performing Organization Address [facility] Co de Phone Number [facility] [address] [place] [address] * (ABNORMAL) Reticulocyte Count (01/14/2025 6:18 AM CDT) Retics, absolute 537(H) 20 - 87 K/cumm Comment:Testing performed by : [address] [address] Retics 21.5(H) 0.4 - 2.9 % [facility] Comment:Testing performed by : [address] [address] Reticulocyte Hgb 28.4(L) 30.5 - 38.0 pg [facility] Comment:Testing performed by : [address] [address] Blood 01/14/2025 6:18 AM CDT 01/14/2025 6:28 AM CDT us Rasta Garcia MD LAB BLOOD ORDERABLES Final Res ult Performing Organization Address [facility] Co de Phone Number [facility]EN[facility]ETTA[facility]ANDR[facility] [address] [place] [address] * (ABNORMAL) Basic metabolic panel (01/14/2025 6:18 AM CDT) [facility] Sodium 137 135 - 145 mmol/L Comment:Testing performed by : [address] [address] Potassium, pl 3.5 3.3 - 4.9 mmol/L [facility] Comment:Testing performed by : [address], [place]., [address] Chloride 103 97 - 110 mmol/L [facility] Comment:Testing performed by : [address], [place]., [address] CO2 24 22 - 32 mmol/L [facility] Comment:Testing performed by : [address], [place]., [address] Anion gap 10 2 - 15 mmol/L [facility] Comment:Testing performed by : [address], [place]., [address] BUN 2(L) 6 - 25 mg/dL [facility] Comment:Testing performed by : [address], [place]., [address] Creatinine 0.45(L) 0.80 - 1.30 mg/dL [facility] Comment:Testing performed by : [address], [place]., [address] Glucose 141 70 - 199 mg/dL [facility] Comment: Interpretive Data Fasting glucose >/= [...] was last revised 2022. Testing performed by: [address] [address] Calcium 8.8 8.5 - 10.3 mg/dL [facility] Comment:Testing performed by : [address], [place]., [address] Blood 01/14/2025 6:18 AM CDT 01/14/2025 6:28 AM CDT us Rasta Garcia MD LAB BLOOD ORDERABLES Final Res ult [facility] 4500 [facility] Department [place] [address] * XR Chest PA Lateral 2 Views [...] Gee Laboy D.O. AP: AP Report ID: [id number] Reading Location: [id number] Procedure Note Gee Laoby, - 01/11/2025 EXAM DESCRIPTION: XR CHEST PA [...] Gee Laboy D.O. AP: AP Report ID: [id number] Reading Location: [id number] Casey Paz MD IMG XR PROCEDURES Final [...] was last reviewed 2021. Testing performed by: [facility], [address] [place] [address], [place]., [address] Blood 01/11/2025 1:12 PM CDT 01/11/2025 1:15 PM CDT us Rasta Garcia MD LAB BLOOD ORDERABLES Final Res ult [facility] 4500 [facility] Department of Laboratories [place], [place] [id number] * (ABNORMAL) CBC with auto differential (01/11/2025 1:12 PM CDT) WBC 10.21(H) 3.80 - 9.90 K/cumm Comment:Testing performed by : [address] [address] Hgb 8.3(L) 13.0 - 17.5 g/dL [facility] Comment:Testing performed by : [address], [address] Hct 24.3(L) 38.9 - 50.3 % [facility] Comment:Testing performed by : [address] [address] Plt 379 150 - 400 K/cumm [facility] Comment:Testing performed by : [address] [address] MPV 9.9 9.1 - 12.3 fL [facility] Comment:Testing performed by : [address] [address] RBC 2.82(L) 4.30 - 5.80 M/cumm [facility] Comment:Testing performed by : [address] [address] MCV 86.2 81.3 - 96.4 fL [facility] Comment:Testing performed by : [address] [address] MCH 29.4 27.1 - 33.3 pg [facility] Comment:Testing performed by : [address], [address] MCHC 34.2 32.3 - 35.7 g/dL [facility] Comment:Testing performed by : [address] [address] RDW CV 23.4(H) 11.1 - 14.9 % [facility] Comment:Testing performed by : [address] [address] RDW SD 70.7(H) 35.7 - 48.1 fL [facility] SHETTY Comment:Testing performed by : [address] [address] NRBC abs 0.23(H) 0.00 - 0.01 K/cumm [facility] Comment:Testing performed by : [address] [address] Blood 01/11/2025 1:12 PM CDT 01/11/2025 1:15 PM CDT us Rasta Garcia MD LAB BLOOD ORDERABLES Final Res ult [facility]8 [facility] Department [place] [address] * (ABNORMAL) Manual Differential (01/11/2025 1:12 PM CDT) Differential Manual Comment:Testing performed by : [address] [address] Cells Counted 100 [facility] Comment:Testing performed by : [address] [address] Neutrophil abs 4.90 1.50 - 6.50 K/cumm [facility] Comment:Testing performed by : [address] [address] Lymphocyte abs 4.39(H) 0.80 - 3.30 K/cumm [facility] Comment:Testing performed by : [address] [address] Monocyte abs 0.51 0.20 - 0.80 K/cumm [facility] Comment:Testing performed by : [address] [address] Eosinophil abs 0.41 0.00 - 0.50 K/cumm [facility] Comment:Testing performed by : [address] [address] Neutrophil pct 48.0 % [facility] Comment: Interpretive Data Percent cell count reference ranges are not reported, since discordance with absolute values may lead to misinterpretation of CBC data. Current Interpretive Data was last revised on 2017. Testing performed by: [address] [address] Lymphocyte pct 43.0 % [facility] Comment: Interpretive Data Percent cell count reference ranges are not reported, since discordance with absolute values may lead to misinterpretation of CBC data. Current Interpretive Data was last revised on 2017. Testing performed by: [address] [address] Monocyte pct 5.0 % [facility] Comment: Interpretive Data Percent cell count reference ranges are not reported, since discordance with absolute values may lead to misinterpretation of CBC data. Current Interpretive Data was last revised on 2017. Testing performed by: [address], [place]., [address] Eosinophil pct 4.0 % [facility] Comment: Interpretive Data Percent cell count reference ranges are not reported, since discordance with absolute values may lead to misinterpretation of CBC data. Current Interpretive Data was last revised on 2017. Testing performed by: [address], [place]., [address] RBC morphology Present(A) [facility] Comment:Testing performed by : [address] [address] Polychromasia 3-7/HPF(A) [facility] Comment:Testing performed by : [address] [address] Anisocytosis Marked(A) [facility] Comment:Testing performed by : [address], [place]., [address] Sickle cells 1-2/HPF(A) [facility] Comment:Testing performed by : [address] [address] Elliptocytes 8-15/HPF(A) [facility] Comment:Testing performed by : [address] [address] Teardrop cells 3-7/HPF(A) [facility] Comment:Testing performed by : [address] [address] Platelet morphology Normal [facility] Comment:Testing performed by : [address] [address] Platelet estimate Adequate [facility] Comment:Testing performed by : [address] [address] Blood 01/11/2025 1:12 PM CDT 01/11/2025 1:15 PM CDT us Rasta Garcia MD LAB BLOOD ORDERABLES Final Res ult Performing Organization Address [facility] Co de Phone Number [address] [place] [address] * (ABNORMAL) Reticulocyte Count (01/11/2025 1:12 PM CDT) [facility] Retics, absolute 585(H) 20 - 87 K/cumm Comment:Testing performed by : [address] [address] Retics 20.8(H) 0.4 - 2.9 % [facility] Comment:Testing performed by : [address] [address] Reticulocyte Hgb 30.1(L) 30.5 - 38.0 pg [facility] Comment:Testing performed by : [address] [address] Blood 01/11/2025 1:12 PM CDT 01/11/2025 1:15 PM CDT us Rasta Garcia MD LAB BLOOD ORDERABLES Final Res ult Performing Organization Address [facility] de Phone Number [address] [place] [address] * (ABNORMAL) Basic metabolic panel (01/11/2025 1:12 PM CDT) [facility] Sodium 138 135 - 145 mmol/L Comment:Testing performed by : [address] [address] Potassium, pl 3.7 3.3 - 4.9 mmol/L [facility] Comment:Testing performed by : [address] [address] Chloride 103 97 - 110 mmol/L [facility] Comment:Testing performed by : [address] [address] CO2 24 22 - 32 mmol/L [facility] Comment:Testing performed by : [address] [address] Anion gap 11 2 - 15 mmol/L [facility] Comment:Testing performed by : [address] [address] BUN 2(L) 6 - 25 mg/dL [facility] Comment:Testing performed by : [address] [address] Creatinine 0.50(L) 0.80 - 1.30 mg/dL [facility] Comment:Testing performed by : [address] [address] Glucose 110 70 - 199 mg/dL [facility] Comment: Interpretive Data Fasting glucose >/= [...] was last revised 2022. Testing performed by: [address] [address] Calcium 8.7 8.5 - 10.3 mg/dL [facility] Comment:Testing performed by : [address] [address] Blood 01/11/2025 1:12 PM CDT 01/11/2025 1:15 PM CDT us Rasta Garcia MD LAB BLOOD ORDERABLES Final Res ult [facility] 4500 [facility] Department [place] [address] * XR Chest 1 View (01/10/2025 1:39 [...] Anne Merchant M.D. FT: FT Report ID: [id number] Reading Location: [id number] Procedure Note Anne Hernandes MD - 01/10/2025 [...] Anne Merchant M.D. FT: FT Report ID: [id number] Reading Location: [place] [address] us Jaya Garcia DO IMG XR PROCEDURES [...] was last reviewed 2021. Testing performed by: [address] [address] Blood 01/10/2025 10:2 9 AM CDT 01/10/2025 10:53 AM CDT us Rasta Garcia MD LAB BLOOD ORDERABLES Final Res ult [facility] 6526 [facility] Department [place] [address] * (ABNORMAL) Differential, auto (01/10/2025 10:29 AM CDT) Neutrophil abs 4.63 1.50 - 6.50 K/cumm Comment:Testing performed by : [address] [address] Imm gran abs 0.08 0.00 - 0.10 K/cumm CERALEJANDRA Comment:Testing performed by : [address], [place]., [address] Lymphocyte abs 4.22(H) 0.80 - 3.30 K/cumm [facility] Comment:Testing performed by : [address] [address] Monocyte abs 0.96(H) 0.20 - 0.80 K/cumm [facility] Comment:Testing performed by : [address], [place]., [address] Eosinophil abs 0.20 0.00 - 0.50 K/cumm [facility] Comment:Testing performed by : [address], [place]., [address] Basophil abs 0.06 0.00 - 0.10 K/cumm [facility] Comment:Testing performed by : [address] [address] Neutrophil pct 45.5 % [facility] Comment: Interpretive Data Percent cell count reference ranges are not reported, since discordance with absolute values may lead to misinterpretation of CBC data. Current Interpretive Data was last revised on 2017. Testing performed by: [address] [address] Imm gran pct 0.8 % [facility] Comment: Interpretive Data Percent cell count reference ranges are not reported, since discordance with absolute values may lead to misinterpretation of CBC data. Current Interpretive Data was last revised on 2017. Testing performed by: [address] [address] Lymphocyte pct 41.6 % [facility] Comment: Interpretive Data Percent cell count reference ranges are not reported, since discordance with absolute values may lead to misinterpretation of CBC data. Current Interpretive Data was last revised on 2017. Testing performed by: [address] [address] Monocyte pct 9.5 % [facility] Comment: Interpretive Data Percent cell count reference ranges are not reported, since discordance with absolute values may lead to misinterpretation of CBC data. Current Interpretive Data was last revised on 2017. Testing performed by: [address] [address] Eosinophil pct 2.0 % [facility] SHETTY Comment: Interpretive Data Percent cell count reference ranges are not reported, since discordance with absolute values may lead to misinterpretation of CBC data. Current Interpretive Data was last revised on 2017. Testing performed by: [address] [address] Basophil pct 0.6 % [facility] SHETT[facility] Comment: Interpretive Data Percent cell count reference ranges are not reported, since discordance with absolute values may lead to misinterpretation of CBC data. Current Interpretive Data was last revised on 2017. Testing performed by: [address] [address] Blood 01/10/2025 10:2 9 AM CDT 01/10/2025 10:52 AM CDT us Rasta Garcia MD LAB BLOOD ORDERABLES Final Res ult [facility] 4473 [facility] Department [place] [address] * (ABNORMAL) CBC with auto differential (01/10/2025 10:29 AM CDT) WBC 10.15(H) 3.80 - 9.90 K/cumm Comment:Testing performed by : [address] [address] Hgb 7.5(L) 13.0 - 17.5 g/dL [facility] SHETTY Comment:Testing performed by : [address] [address] Hct 22.0(L) 38.9 - 50.3 % [facility] SHETTY Comment:Testing performed by : [address] [address] Plt 324 150 - 400 K/cumm [facility] SHETTY Comment:Testing performed by : [address] [address] MPV 10.3 9.1 - 12.3 fL [facility] SHETTY Comment:Testing performed by : [address] [address] RBC 2.51(L) 4.30 - 5.80 M/cumm [facility] Comment:Testing performed by : [address] [address] MCV 87.6 81.3 - 96.4 fL [facility] Comment:Testing performed by : [address] [address] MCH 29.9 27.1 - 33.3 pg [facility] Comment:Testing performed by : [address] [address] MCHC 34.1 32.3 - 35.7 g/dL [facility] Comment:Testing performed by : [address], [address] RDW CV 22.9(H) 11.1 - 14.9 % [facility] Comment:Testing performed by : [address], [address] RDW SD 69.4(H) 35.7 - 48.1 fL [facility] Comment:Testing performed by : [address] [address] NRBC abs 0.15(H) 0.00 - 0.01 K/cumm [facility] Comment:Testing performed by : [address], [address] Morphologic Screen Results confirmed by manual morphology review. [facility] Comment:Testing performed by : [address], [address] Blood 01/10/2025 10:2 9 AM CDT 01/10/2025 10:52 AM CDT us Rasta Garcia MD LAB BLOOD ORDERABLES Edited Re sult - Final [facility]ALEJANDRA 8624 [facility] Department of Laboratories [place], [place] [address] * (ABNORMAL) Reticulocyte Count (01/10/2025 10:29 AM CDT) Retics, absolute 624(H) 20 - 87 K/cumm Comment:Testing performed by : [address] [address] Retics 21.5(H) 0.4 - 2.9 % [facility] Comment:Testing performed by : [address] [address] Reticulocyte Hgb 28.1(L) 30.5 - 38.0 pg [facility] Comment:Testing performed by : [address] [address] Blood 01/10/2025 10:2 9 AM CDT 01/10/2025 10:52 AM CDT us Rasta Garcia MD LAB BLOOD ORDERABLES Final Res ult [facility] 4500 [facility] Department of Laboratories [place], [place] [id number] * (ABNORMAL) Basic metabolic panel (01/10/2025 10:29 AM CDT) Sodium 138 135 - 145 mmol/L Comment:Testing performed by : [address] [address] Potassium, pl 3.5 3.3 - 4.9 mmol/L [facility] Comment:Testing performed by : [address] [address] Chloride 104 97 - 110 mmol/L [facility] Comment:Testing performed by : [address] [address] CO2 24 22 - 32 mmol/L [facility] Comment:Testing performed by : [address] [address] Anion gap 10 2 - 15 mmol/L [facility] Comment:Testing performed by : [address] [address] BUN 2(L) 6 - 25 mg/dL [facility] Comment:Testing performed by : [address] [address] Creatinine 0.50(L) 0.80 - 1.30 mg/dL [facility] Comment:Testing performed by : [address] [address] Glucose 98 70 - 199 mg/dL [facility] [...] was last revised 2022. Testing performed by: [address] [address] Calcium 8.4(L) 8.5 - 10.3 mg/dL [facility] Comment:Testing performed by : [address] [address] Blood 01/10/2025 10:2 9 AM CDT 01/10/2025 10:53 AM CDT us Rasta Garcia MD LAB BLOOD ORDERABLES Final Res ult [facility] 0127 [facility] Department [place] [address] * (ABNORMAL) Differential, auto (01/09/2025 4:55 AM CDT) Neutrophil abs 4.56 1.50 - 6.50 K/cumm Comment:Testing performed by : [address] [address] Imm gran abs 0.05 0.00 - 0.10 K/cumm [facility] SHETTY Comment:Testing performed by : [address] [address] Lymphocyte abs 3.68(H) 0.80 - 3.30 K/cumm [facility] Comment:Testing performed by : [address] [address] Monocyte abs 1.48(H) 0.20 - 0.80 K/cumm [facility] Comment:Testing performed by : [address] [address] Eosinophil abs 0.24 0.00 - 0.50 K/cumm [facility] Comment:Testing performed by : [address] [address] Basophil abs 0.06 0.00 - 0.10 K/cumm [facility] Comment:Testing performed by : [address] [address] Neutrophil pct 45.3 % [facility] Comment: Interpretive Data Percent cell count reference ranges are not reported, since discordance with absolute values may lead to misinterpretation of CBC data. Current Interpretive Data was last revised on 2017. Testing performed by: [address] [address] Imm gran pct 0.5 % [facility] Comment: Interpretive Data Percent cell count reference ranges are not reported, since discordance with absolute values may lead to misinterpretation of CBC data. Current Interpretive Data was last revised on 2017. Testing performed by: [address] [address] Lymphocyte pct 36.5 % [facility] Comment: Interpretive Data Percent cell count reference ranges are not reported, since discordance with absolute values may lead to misinterpretation of CBC data. Current Interpretive Data was last revised on 2017. Testing performed by: [address] [address] Monocyte pct 14.7 % [facility] Comment: Interpretive Data Percent cell count reference ranges are not reported, since discordance with absolute values may lead to misinterpretation of CBC data. Current Interpretive Data was last revised on 2017. Testing performed by: [address] [address] Eosinophil pct 2.4 % [facility] Comment: Interpretive Data Percent cell count reference ranges are not reported, since discordance with absolute values may lead to misinterpretation of CBC data. Current Interpretive Data was last revised on 2017. Testing performed by: [address] [address] Basophil pct 0.6 % [facility] Comment: Interpretive Data Percent cell count reference ranges are not reported, since discordance with absolute values may lead to misinterpretation of CBC data. Current Interpretive Data was last revised on 2017. Testing performed by: [address] [address] Blood 01/09/2025 4:55 AM CDT 01/09/2025 4:59 AM CDT us Rasta Garcia MD LAB BLOOD ORDERABLES Final Res ult [facility] 4506 [facility] Department [place] [address] * (ABNORMAL) CBC with auto differential (01/09/2025 4:55 AM CDT) WBC 10.07(H) 3.80 - 9.90 K/cumm Comment:Testing performed by : [address] [address] Hgb 7.3(L) 13.0 - 17.5 g/dL [facility] Comment:Testing performed by : [address] [address] Hct 21.4(L) 38.9 - 50.3 % [facility] Comment:Testing performed by : [address] [address] Plt 285 150 - 400 K/cumm [facility] Comment:Testing performed by : [address] [address] MPV 10.1 9.1 - 12.3 fL [facility] Comment:Testing performed by : [address] [address] RBC 2.44(L) 4.30 - 5.80 M/cumm [facility] SHETTY Comment:Testing performed by : [address] [address] MCV 87.7 81.3 - 96.4 fL [facility] Comment:Testing performed by : [address] [address] MCH 29.9 27.1 - 33.3 pg [facility] SHETTY Comment:Testing performed by : [address] [address] MCHC 34.1 32.3 - 35.7 g/dL [facility] SHE[facility] Comment:Testing performed by : [address] [address] RDW CV 22.1(H) 11.1 - 14.9 % [facility] Comment:Testing performed by : [address] [address] RDW SD 67.3(H) 35.7 - 48.1 fL [facility] Comment:Testing performed by : [address] [address] NRBC abs 0.19(H) 0.00 - 0.01 K/cumm [facility] Comment:Testing performed by : [address], [address] Morphologic Screen Results confirmed by manual morphology review. [facility] Comment:Testing performed by : [address] [address] Blood 01/09/2025 4:55 AM CDT 01/09/2025 4:59 AM CDT us Rasta Garcia MD LAB BLOOD ORDERABLES Final Res ult [facility] 0203 [facility] Department [place] [address] * (ABNORMAL) Reticulocyte Count (01/09/2025 4:55 AM CDT) Retics, absolute 566(H) 20 - 87 K/cumm Comment:Testing performed by : [address] [address] Retics 23.2(H) 0.4 - 2.9 % [facility] Comment:Testing performed by : [address] [address] Reticulocyte Hgb 28.1(L) 30.5 - 38.0 pg [facility] Comment:Testing performed by : [address] [address] Blood 01/09/2025 4:55 AM CDT 01/09/2025 4:59 AM CDT Rasta Garcia MD LAB BLOOD ORDERABLES Final Res ult Performing Organization Address City/[facility]/ZIP Co de Phone Number [facility]0 [facility] [place] [address] * eGFR (01/09/2025 4:50 AM CDT) eGFR [...] was last reviewed 2021. Testing performed by: [facility], [address] [place] [address]., [address] Blood 01/09/2025 4:50 AM CDT 01/09/2025 4:59 AM CDT us Rasta Garcia MD LAB BLOOD ORDERABLES Final Res ult [facility] [address] [place] [address] * (ABNORMAL) Basic metabolic panel (01/09/2025 4:50 AM CDT) Sodium 137 135 - 145 mmol/L Comment:Testing performed by : [address] [address] Potassium, pl 3.9 3.3 - 4.9 mmol/L [facility] Comment:Testing performed by : [address], [place]., [address] Chloride 102 97 - 110 mmol/L [facility] Comment:Testing performed by : [address], [place]., [address] CO2 23 22 - 32 mmol/L [facility] Comment:Testing performed by : [address], [place]., [address] Anion gap 12 2 - 15 mmol/L [facility] Comment:Testing performed by : [address], [place]., [address] BUN 4(L) 6 - 25 mg/dL [facility] Comment:Testing performed by : [address], [place]., [address] Creatinine 0.56(L) 0.80 - 1.30 mg/dL [facility] Comment:Testing performed by : [address] [address] Glucose 109 70 - 199 mg/dL [facility] Comment: Interpretive Data Fasting glucose >/= [...] was last revised 2022. Testing performed by: [address] [address] Calcium 8.8 8.5 - 10.3 mg/dL [facility] Comment:Testing performed by : [address] [address] Blood 01/09/2025 4:50 AM CDT 01/09/2025 4:59 AM CDT us Rasta Garcia MD LAB BLOOD ORDERABLES Final Res ult [facility] 4500 [facility] Department [place] [address] * CT Abdomen Pelvis WO Contrast (01/08/2025 [...] Anival Cotton M.D. NS: NS Report ID: [id number] Reading Location: [id number] Procedure Note Anival Cotton MD - 01/08/2025 [...] Anival Cotton M.D. NS: NS Report ID: [id number] Reading Location: [place] [address] Jaya Garcia DO IMG CT PROCEDURES Final [...] was last reviewed 2021. Testing performed by: [address] [address] Blood 01/07/2025 10:4 8 AM CDT 01/07/2025 11:07 AM CDT us Rasta Garcia MD LAB BLOOD ORDERABLES Final Res ult [facility] 4500 [facility] Department [place] [address] * (ABNORMAL) CBC with auto differential (01/07/2025 10:48 AM CDT) WBC 8.71 3.80 - 9.90 K/cumm Comment:Testing performed by : [address] [address] Hgb 8.0(L) 13.0 - 17.5 g/dL [facility] Comment:Testing performed by : [address] [address] Hct 23.2(L) 38.9 - 50.3 % [facility] Comment:Testing performed by : [address] [address] Plt 324 150 - 400 K/cumm [facility] Comment:Testing performed by : [address] [address] MPV 10.3 9.1 - 12.3 fL [facility] Comment:Testing performed by : [address] [address] RBC 2.58(L) 4.30 - 5.80 M/cumm [facility] Comment:Testing performed by : [address] [address] MCV 89.9 81.3 - 96.4 fL [facility] Comment:Testing performed by : [address] [address] MCH 31.0 27.1 - 33.3 pg [facility] Comment:Testing performed by : [address] [address] MCHC 34.5 32.3 - 35.7 g/dL [facility] SHETT[facility] Comment:Testing performed by : [address] [address] RDW CV 21.6(H) 11.1 - 14.9 % [facility] Comment:Testing performed by : [address] [address] RDW SD 68.9(H) 35.7 - 48.1 fL [facility] Comment:Testing performed by : [address] [address] NRBC abs 0.26(H) 0.00 - 0.01 K/cumm [facility] Comment:Testing performed by : [address] [address] Blood 01/07/2025 10:4 8 AM CDT 01/07/2025 11:07 AM CDT us Jaya Garcia DO LAB BLOOD ORDERABLES Final Resul t [facility] [address] Department [place] [address] * (ABNORMAL) Manual Differential (01/07/2025 10:48 AM CDT) Differential Manual Comment:Testing performed by : [address] [address] Cells Counted 100 [facility] Comment:Testing performed by : [address] [address] Neutrophil abs 3.92 1.50 - 6.50 K/cumm [facility] Comment:Testing performed by : [address] [address] Lymphocyte abs 4.44(H) 0.80 - 3.30 K/cumm [facility] Comment:Testing performed by : [address] [address] Monocyte abs 0.26 0.20 - 0.80 K/cumm [facility] Comment:Testing performed by : [address] [address] Eosinophil abs 0.09 0.00 - 0.50 K/cumm [facility] Comment:Testing performed by : [address] [address] Neutrophil pct 45.0 % [facility] Comment: Interpretive Data Percent cell count reference ranges are not reported, since discordance with absolute values may lead to misinterpretation of CBC data. Current Interpretive Data was last revised on 2017. Testing performed by: [address] [address] Lymphocyte pct 51.0 % [facility] Comment: Interpretive Data Percent cell count reference ranges are not reported, since discordance with absolute values may lead to misinterpretation of CBC data. Current Interpretive Data was last revised on 2017. Testing performed by: [address] [address] Monocyte pct 3.0 % [facility] Comment: Interpretive Data Percent cell count reference ranges are not reported, since discordance with absolute values may lead to misinterpretation of CBC data. Current Interpretive Data was last revised on 2017. Testing performed by: [address] [address] Eosinophil pct 1.0 % [facility] Comment: Interpretive Data Percent cell count reference ranges are not reported, since discordance with absolute values may lead to misinterpretation of CBC data. Current Interpretive Data was last revised on 2017. Testing performed by: [address] [address] RBC morphology Present(A) [facility] Comment:Testing performed by : [address] [address] Anisocytosis Marked(A) [facility] Comment:Testing performed by : [address] [address] Sickle cells 1-2/HPF(A) [facility] Comment:Testing performed by : [address] [address] Elliptocytes 3-7/HPF(A) [facility] Comment:Testing performed by : [address] [address] Target cells 3-7/HPF(A) [facility] Comment:Testing performed by : [address] [address] Platelet morphology Normal [facility] Comment:Testing performed by : [address] [address] Platelet estimate Adequate [facility] Comment:Testing performed by : [address] [address] Blood 01/07/2025 10:4 8 AM CDT 01/07/2025 11:07 AM CDT us Jaya Garcia DO LAB BLOOD ORDERABLES Final Resul t Performing Organization Address [facility] Co de Phone Number [facility] [address] [place] [address] * (ABNORMAL) Reticulocyte Count (01/07/2025 10:48 AM CDT) Retics, absolute 559(H) 20 - 87 K/cumm Comment:Testing performed by : [address] [address] Retics 20.7(H) 0.4 - 2.9 % [facility] Comment:Testing performed by : [address] [address] Reticulocyte Hgb 28.5(L) 30.5 - 38.0 pg [facility] Comment:Testing performed by : [address] [address] Blood 01/07/2025 10:4 8 AM CDT 01/07/2025 11:07 AM CDT us Rasat Garcia MD LAB BLOOD ORDERABLES Final Res ult Performing Organization Address [facility] Co de Phone Number [address] [place] [address] * (ABNORMAL) Basic metabolic panel (01/07/2025 10:48 AM CDT) Sodium 141 135 - 145 mmol/L Comment:Testing performed by : [address] [address] Potassium, pl 3.3 3.3 - 4.9 mmol/L [facility] Comment:Testing performed by : [address] [address] Chloride 104 97 - 110 mmol/L [facility] Comment:Testing performed by : [address] [address] CO2 25 22 - 32 mmol/L [facility] Comment:Testing performed by : [address] [address] Anion gap 12 2 - 15 mmol/L [facility] Comment:Testing performed by : [address] [address] BUN 2(L) 6 - 25 mg/dL [facility] Comment:Testing performed by : [address], [place]., [address] Creatinine 0.50(L) 0.80 - 1.30 mg/dL [facility] Comment:Testing performed by : [address] [address] Glucose 162 70 - 199 mg/dL [facility] Comment: Interpretive Data Fasting glucose >/= [...] was last revised 2022. Testing performed by: [address] [address] Calcium 8.6 8.5 - 10.3 mg/dL [facility] Comment:Testing performed by : [address] [address] Blood 01/07/2025 10:4 8 AM CDT 01/07/2025 11:07 AM CDT Rasta Garcia MD LAB BLOOD ORDERABLES Final Res ult Performing Organization Address [facility] de Phone Number [facility] [address] [facility] [place] [address] * eGFR (01/06/2025 6:52 AM CDT) eGFR [...] was last reviewed 2021. Testing performed by: [address] [address] Blood 01/06/2025 6:52 AM CDT 01/06/2025 7:14 AM CDT us Rasta Garcia MD LAB BLOOD ORDERABLES Final Res ult Performing Organization Address [facility] Co de Phone Number [facility] 4500 [facility] [place] [address] * (ABNORMAL) Basic metabolic panel (01/06/2025 6:52 AM CDT) Pathologist [facility] Sodium 139 135 - 145 mmol/L Comment:Testing performed by : [address] [address] Potassium, pl 3.7 3.3 - 4.9 mmol/L [facility] SHETTY Comment:Testing performed by : [address] [address] Chloride 103 97 - 110 mmol/L [facility] Comment:Testing performed by : [address] [address] CO2 23 22 - 32 mmol/L [facility] Comment:Testing performed by : [address] [address] Anion gap 13 2 - 15 mmol/L [facility] Comment:Testing performed by : [address] [address] BUN 2(L) 6 - 25 mg/dL [facility] Comment:Testing performed by : [address] [address] Creatinine 0.50(L) 0.80 - 1.30 mg/dL [facility] Comment:Testing performed by : [address] [address] Glucose 95 70 - 199 mg/dL [facility] [...] was last revised 2022. Testing performed by: [address] [address] Calcium 8.6 8.5 - 10.3 mg/dL [facility] Comment:Testing performed by : [address] [address] Blood 01/06/2025 6:52 AM CDT 01/06/2025 7:14 AM CDT us Rasta Garcia MD LAB BLOOD ORDERABLES Final Res ult [facility] SHETT[facility] 0521 [facility] Department [place] [address] * eGFR (01/04/2025 7:27 AM CDT) Pathologist [facility] eGFR >90 [...] was last reviewed 2021. Testing performed by: [address] [address] Blood 01/04/2025 7:27 AM CDT 01/04/2025 7:34 AM CDT us Rasta Garcia MD LAB BLOOD ORDERABLES Final Res ult [facility] 6218 [facility] Department [place] [address] * (ABNORMAL) CBC with auto differential (01/04/2025 7:27 AM CDT) [facility] WBC 10.50(H) 3.80 - 9.90 K/cumm Comment:Testing performed by : [address] [address] Hgb 8.4(L) 13.0 - 17.5 g/dL [facility] SHETT[facility] Comment:Testing performed by : [address] [address] Hct 25.3(L) 38.9 - 50.3 % [facility] Comment:Testing performed by : [address] [address] Plt 299 150 - 400 K/cumm [facility] Comment:Testing performed by : [address] [address] MPV 9.8 9.1 - 12.3 fL [facility] Comment:Testing performed by : [address], [address] RBC 2.76(L) 4.30 - 5.80 M/cumm [facility] Comment:Testing performed by : [address], [address] MCV 91.7 81.3 - 96.4 fL [facility] Comment:Testing performed by : [address] [address] MCH 30.4 27.1 - 33.3 pg [facility] Comment:Testing performed by : [address], [address] MCHC 33.2 32.3 - 35.7 g/dL [facility] Comment:Testing performed by : [address], [address] RDW CV 23.3(H) 11.1 - 14.9 % [facility] Comment:Testing performed by : [address] [address] RDW SD 74.0(H) 35.7 - 48.1 fL [facility] Comment:Testing performed by : [address], [address] NRBC abs 0.21(H) 0.00 - 0.01 K/cumm [facility] Comment:Testing performed by : [address], [address] Blood 01/04/2025 7:27 AM CDT 01/04/2025 7:34 AM CDT us Rasta Garcia MD LAB BLOOD ORDERABLES Final Res ult [facility] 4500 [facility] Department [place] [address] * (ABNORMAL) Manual Differential (01/04/2025 7:27 AM CDT) Differential Manual Comment:Testing performed by : [address] [address] Cells Counted 100 [facility] Comment:Testing performed by : [address] [address] Neutrophil abs 3.26 1.50 - 6.50 K/cumm [facility] Comment:Testing performed by : [address] [address] Lymphocyte abs 5.88(H) 0.80 - 3.30 K/cumm [facility] Comment:Testing performed by : [address] [address] Monocyte abs 0.63 0.20 - 0.80 K/cumm [facility] Comment:Testing performed by : [address] [address] Eosinophil abs 0.53(H) 0.00 - 0.50 K/cumm [facility] Comment:Testing performed by : [address] [address] Basophil abs 0.21(H) 0.00 - 0.10 K/cumm [facility] Comment:Testing performed by : [address] [address] Neutrophil pct 31.0 % [facility] Comment: Interpretive Data Percent cell count reference ranges are not reported, since discordance with absolute values may lead to misinterpretation of CBC data. Current Interpretive Data was last revised on 2017. Testing performed by: [address] [address] Lymphocyte pct 56.0 % [facility] Comment: Interpretive Data Percent cell count reference ranges are not reported, since discordance with absolute values may lead to misinterpretation of CBC data. Current Interpretive Data was last revised on 2017. Testing performed by: [address] [address] Monocyte pct 6.0 % [facility] Comment: Interpretive Data Percent cell count reference ranges are not reported, since discordance with absolute values may lead to misinterpretation of CBC data. Current Interpretive Data was last revised on 2017. Testing performed by: [facility], [address] [place] [address], [place]., [address] Eosinophil pct 5.0 % [facility] Comment: Interpretive Data Percent cell count reference ranges are not reported, since discordance with absolute values may lead to misinterpretation of CBC data. Current Interpretive Data was last revised on 2017. Testing performed by: [address], [place]., [address] Basophil pct 2.0 % [facility] Comment: Interpretive Data Percent cell count reference ranges are not reported, since discordance with absolute values may lead to misinterpretation of CBC data. Current Interpretive Data was last revised on 2017. Testing performed by: [address], [place]., [address] Vacuolation Present(A) [facility] Comment:Testing performed by : [address], [place]., [address] RBC morphology Present(A) [facility] Comment:Testing performed by : [address] [address] Polychromasia 3-7/HPF(A) [facility] Comment:Testing performed by : [address], [place]., [address] Anisocytosis Marked(A) [facility] Comment:Testing performed by : [address] [place] [address] Macrocytes 3-7/HPF(A) [facility] Comment:Testing performed by : [address] [address] Schistocytes 1-2/HPF(A) [facility] Comment:Testing performed by : [address] [address] Sickle cells 3-7/HPF(A) [facility] Comment:Testing performed by : [address], [place]., [address] Platelet estimate Adequate [facility] Comment:Testing performed by : [address] [address] Giant platelets Present(A) [facility] Comment:Testing performed by : [address] [address] Blood 01/04/2025 7:27 AM CDT 01/04/2025 7:34 AM CDT us Rasta Garcia MD LAB BLOOD ORDERABLES Final Res ult Performing Organization Address [facility] Co de Phone Number [facility] 4500 [facility] [place] [address] * (ABNORMAL) Reticulocyte Count (01/04/2025 7:27 AM CDT) [facility] Retics, absolute 532(H) 20 - 87 K/cumm Comment:Testing performed by : [address] [address] Retics 19.3(H) 0.4 - 2.9 % [facility] Comment:Testing performed by : [address] [address] Reticulocyte Hgb 34.7 30.5 - 38.0 pg [facility] Comment:Testing performed by : [address] [address] Blood 01/04/2025 7:27 AM CDT 01/04/2025 7:34 AM CDT us Rasta Garcia MD LAB BLOOD ORDERABLES Final Res ult Performing Organization Address [facility] de Phone Number [facility] [address] [facility] [place] [address] * (ABNORMAL) Basic metabolic panel (01/04/2025 7:27 AM CDT) [facility] Sodium 137 135 - 145 mmol/L Comment:Testing performed by : [address] [address] Potassium, pl 3.5 3.3 - 4.9 mmol/L [facility] Comment:Testing performed by : [address] [place] [address] Chloride 100 97 - 110 mmol/L [facility] Comment:Testing performed by : [address] [address] CO2 25 22 - 32 mmol/L [facility] Comment:Testing performed by : [address] [address] Anion gap 12 2 - 15 mmol/L [facility] Comment:Testing performed by : [address] [address] BUN 2(L) 6 - 25 mg/dL [facility] Comment:Testing performed by : [address] [address] Creatinine 0.49(L) 0.80 - 1.30 mg/dL [facility] Comment:Testing performed by : [address] [address] Glucose 106 70 - 199 mg/dL [facility] [...] was last revised 2022. Testing performed by: [address] [address] Calcium 9.1 8.5 - 10.3 mg/dL [facility] Comment:Testing performed by : [address] [address] Blood 01/04/2025 7:27 AM CDT 01/04/2025 7:34 AM CDT us Rasta Garcia MD LAB BLOOD ORDERABLES Final Res ult [facility] 0563 [facility] Department [place] [address] * (ABNORMAL) Blood smear review (01/03/2025 7:30 AM CDT) Pathologist [facility] RBC morphology Present(A) Comment:Testing performed by : [facility], [address] [place] [address], [place]., [address] Polychromasia 3-7/HPF(A) [facility] Comment:Testing performed by : [address] [address] Anisocytosis Slight(A) [facility] Comment:Testing performed by : [address], [place]., [address] Poikilocytosis Slight(A) [facility] Comment:Testing performed by : [address], [place]., [address] Sickle cells 1-2/HPF(A) [facility] Comment:Testing performed by : [address], [place]., [address] Elliptocytes 3-7/HPF(A) [facility] Comment:Testing performed by : [facility], [address] [place] [address], [place]., [address] Target cells 3-7/HPF(A) [facility] Comment:Testing performed by : [address] [address] Platelet estimate Adequate [facility] Comment:Testing performed by : [address], [place]., [address] Blood 01/03/2025 7:30 AM CDT 01/03/2025 7:44 AM CDT us Rasta Garcia MD LAB BLOOD ORDERABLES Final Res ult [facility] 4500 [facility] Department [place] [address] * eGFR (01/03/2025 7:30 AM CDT) Pathologist [...] was last reviewed 2021. Testing performed by: [address] [address] Blood 01/03/2025 7:30 AM CDT 01/03/2025 7:44 AM CDT us Rasta Garcia MD LAB BLOOD ORDERABLES Final Res ult [place] [address] [facility] Department [place] [address] * (ABNORMAL) Differential, auto (01/03/2025 7:30 AM CDT) Neutrophil abs 5.76 1.50 - 6.50 K/cumm Comment:Testing performed by : [address] [address] Imm gran abs 0.13(H) 0.00 - 0.10 K/cumm [facility] Comment:Testing performed by : [address] [address] Lymphocyte abs 3.10 0.80 - 3.30 K/cumm [facility] Comment:Testing performed by : [address] [address] Monocyte abs 0.98(H) 0.20 - 0.80 K/cumm [facility] Comment:Testing performed by : [address] [address] Eosinophil abs 0.21 0.00 - 0.50 K/cumm [facility] Comment:Testing performed by : [address] [address] Basophil abs 0.07 0.00 - 0.10 K/cumm [facility] Comment:Testing performed by : [address] [address] Neutrophil pct 56.2 % [facility] Comment: Interpretive Data Percent cell count reference ranges are not reported, since discordance with absolute values may lead to misinterpretation of CBC data. Current Interpretive Data was last revised on 2017. Testing performed by: [address] [address] Imm gran pct 1.3 % [facility] Comment: Interpretive Data Percent cell count reference ranges are not reported, since discordance with absolute values may lead to misinterpretation of CBC data. Current Interpretive Data was last revised on 2017. Testing performed by: [address] [address] Lymphocyte pct 30.2 % [facility] Comment: Interpretive Data Percent cell count reference ranges are not reported, since discordance with absolute values may lead to misinterpretation of CBC data. Current Interpretive Data was last revised on 2017. Testing performed by: [address] [address] Monocyte pct 9.6 % [facility] Comment: Interpretive Data Percent cell count reference ranges are not reported, since discordance with absolute values may lead to misinterpretation of CBC data. Current Interpretive Data was last revised on 2017. Testing performed by: [address] [address] Eosinophil pct 2.0 % [facility] Comment: Interpretive Data Percent cell count reference ranges are not reported, since discordance with absolute values may lead to misinterpretation of CBC data. Current Interpretive Data was last revised on 2017. Testing performed by: [address] [address] Basophil pct 0.7 % [facility] Comment: Interpretive Data Percent cell count reference ranges are not reported, since discordance with absolute values may lead to misinterpretation of CBC data. Current Interpretive Data was last revised on 2017. Testing performed by: [address] [address] Blood 01/03/2025 7:30 AM CDT 01/03/2025 7:44 AM CDT us Rasta Garcia MD LAB BLOOD ORDERABLES Final Res ult [facility] 4500 [facility] Department [place] [address] * (ABNORMAL) CBC with auto differential (01/03/2025 7:30 AM CDT) WBC 10.25(H) 3.80 - 9.90 K/cumm Comment:Testing performed by : [address] [address] Hgb 7.7(L) 13.0 - 17.5 g/dL [facility] Comment:Testing performed by : [address] [address] Hct 22.5(L) 38.9 - 50.3 % [facility] Comment:Testing performed by : [address] [address] Plt 350 150 - 400 K/cumm [facility] Comment:Testing performed by : [address] [address] MPV 10.1 9.1 - 12.3 fL [facility] Comment:Testing performed by : [address] [address] RBC 2.55(L) 4.30 - 5.80 M/cumm [facility] Comment:Testing performed by : [address] [address] MCV 88.2 81.3 - 96.4 fL [facility] Comment:Testing performed by : [address] [address] MCH 30.2 27.1 - 33.3 pg [facility] Comment:Testing performed by : [address] [address] MCHC 34.2 32.3 - 35.7 g/dL [facility] SHE[facility] Comment:Testing performed by : [address] [address] RDW CV 22.1(H) 11.1 - 14.9 % [facility] Comment:Testing performed by : [address] [address] RDW SD 67.4(H) 35.7 - 48.1 fL [facility] Comment:Testing performed by : [address] [address] NRBC abs 0.35(H) 0.00 - 0.01 K/cumm [facility] Comment:Testing performed by : [address] [address] Blood 01/03/2025 7:30 AM CDT 01/03/2025 7:44 AM CDT Rasta Garcia MD LAB BLOOD ORDERABLES Final Res ult [place] [address]56[address] [facility] Department [place] [address] * (ABNORMAL) Reticulocyte Count (01/03/2025 7:30 AM CDT) Retics, absolute 471(H) 20 - 87 K/cumm Comment:Testing performed by : [address] [id number] Retics 18.5(H) 0.4 - 2.9 % [facility] Comment:Testing performed by : [address] [address] Reticulocyte Hgb 31.1 30.5 - 38.0 pg [facility] Comment:Testing performed by : [address] [address] Blood 01/03/2025 7:30 AM CDT 01/03/2025 7:44 AM CDT us Rasta Garcia MD LAB BLOOD ORDERABLES Final Res ult [facility] [address] [facility] Department [place] [address] * (ABNORMAL) Basic metabolic panel (01/03/2025 7:30 AM CDT) Sodium 138 135 - 145 mmol/L Comment:Testing performed by : [address] [address] Potassium, pl 3.5 3.3 - 4.9 mmol/L [facility] Comment:Testing performed by : [address] [address] Chloride 101 97 - 110 mmol/L [facility] Comment:Testing performed by : [address] [address] CO2 26 22 - 32 mmol/L [facility] Comment:Testing performed by : [address] [address] Anion gap 11 2 - 15 mmol/L [facility] Comment:Testing performed by : [address] [address] BUN <2(L) 6 - 25 mg/dL [facility] Comment:Testing performed by : [address] [address] Creatinine 0.50(L) 0.80 - 1.30 mg/dL [facility] Comment:Testing performed by : [address] [address] Glucose 106 70 - 199 mg/dL [facility] [...] was last revised 2022. Testing performed by: [address] [address] Calcium 8.8 8.5 - 10.3 mg/dL [facility] SHETTY Comment:Testing performed by : [address] [address] Blood 01/03/2025 7:30 AM CDT 01/03/2025 7:44 AM CDT us Rasta Garcia MD LAB BLOOD ORDERABLES Final Res ult Performing Organization Address City/[facility] Co de Phone Number [facility] [address] [place] [address] [place] [address] * Troponin T high-sensitivity 4-hour (01/01/2025 4:09 AM CDT) Trop T hs <6 <=22 ng/L Comment: Interpretive Data For further hscTnT resources including the diagnostic algorithm and an aid in interpretation, copy and paste this link: https://nrl.testcatalog.org/show/hsTrop Current Interpretive Data last revised 2020. Testing performed by: [address] [address] Trop T hs delta -2 ng/L [facility] Comment:Testing performed by : [address] [address] Trop T hs interp Insignificant [facility] Comment:Testing performed by : [address] [address] Blood 01/01/2025 4:09 AM CDT 01/01/2025 4:16 AM CDT us Bill Carrasquillo DO LAB BLOOD ORDERABLES Final Res ult Performing Organization Address City/[facility]/ZIP Co de Phone Number [facility] 4[address] [facility] [employer] [place] [address] * XR Chest 1 Vw Portable (01/01/2025 [...] Andrew Stubbs M.D. AR: TOREY Report ID: [id number] Reading Location: [place] [address] Procedure Note Andrew Stubbs MD - 01/01/2025 [...] Andrew Stubbs M.D. AR: TOREY Report ID: [id number] Reading Location: [place] [address] Bill Carrasquillo DO IMG XR PROCEDURES Final Result * Troponin T high-sensitivity series (baseline, 2hr, 4hr, 6hr) (12/31/2024 11:57 PM CDT) Trop T hs 8 <=22 ng/L Comment: Interpretive Data For further hscTnT resources including the diagnostic algorithm and an aid in interpretation, copy and paste this link: https://nrl.testcatalog.org/show/hsTrop Current Interpretive Data last revised 2020. Testing performed by: [facility], [address] [place] [address]., [address] Blood 12/31/2024 11:5 7 PM CDT 01/01/2025 12:09 AM CDT us Bill Carrasquillo DO LAB BLOOD ORDERABLES Final Res ult [facility] [address] [facility] Department [place] [address] * eGFR (12/31/2024 11:57 PM CDT) eGFR [...] was last reviewed 2021. Testing performed by: [facility], [address] [place] [address]., [address] Blood 12/31/2024 11:5 7 PM CDT 01/01/2025 12:09 AM CDT us Bill Carrasquillo DO LAB BLOOD ORDERABLES Final Res ult [facility] [address] [facility] Department [place] [address] * (ABNORMAL) Differential, auto (12/31/2024 11:57 PM CDT) Neutrophil abs 6.19 1.50 - 6.50 K/cumm Comment:Testing performed by : [address] [address] Imm gran abs 0.07 0.00 - 0.10 K/cumm [facility] Comment:Testing performed by : [address] [address] Lymphocyte abs 4.31(H) 0.80 - 3.30 K/cumm [facility] Comment:Testing performed by : [address] [address] Monocyte abs 1.49(H) 0.20 - 0.80 K/cumm [facility] Comment:Testing performed by : [address] [address] Eosinophil abs 0.14 0.00 - 0.50 K/cumm [facility] Comment:Testing performed by : [address] [address] Basophil abs 0.08 0.00 - 0.10 K/cumm [facility] Comment:Testing performed by : [address] [address] Neutrophil pct 50.4 % [facility] Comment: Interpretive Data Percent cell count reference ranges are not reported, since discordance with absolute values may lead to misinterpretation of CBC data. Current Interpretive Data was last revised on 2017. Testing performed by: [address] [address] Imm gran pct 0.6 % [facility] Comment: Interpretive Data Percent cell count reference ranges are not reported, since discordance with absolute values may lead to misinterpretation of CBC data. Current Interpretive Data was last revised on 2017. Testing performed by: [address] [address] Lymphocyte pct 35.1 % [facility] Comment: Interpretive Data Percent cell count reference ranges are not reported, since discordance with absolute values may lead to misinterpretation of CBC data. Current Interpretive Data was last revised on 2017. Testing performed by: [address] [address] Monocyte pct 12.1 % [facility] Comment: Interpretive Data Percent cell count reference ranges are not reported, since discordance with absolute values may lead to misinterpretation of CBC data. Current Interpretive Data was last revised on 2017. Testing performed by: [address] [address] Eosinophil pct 1.1 % [facility] Comment: Interpretive Data Percent cell count reference ranges are not reported, since discordance with absolute values may lead to misinterpretation of CBC data. Current Interpretive Data was last revised on 2017. Testing performed by: [address] [address] Basophil pct 0.7 % [facility] Comment: Interpretive Data Percent cell count reference ranges are not reported, since discordance with absolute values may lead to misinterpretation of CBC data. Current Interpretive Data was last revised on 2017. Testing performed by: [address] [address] Blood 12/31/2024 11:5 7 PM CDT 01/01/2025 12:09 AM CDT us Bill Carrasquillo DO LAB BLOOD ORDERABLES Final Res ult [facility] SHETTY 9[address] [facility] Department [place] [address] * (ABNORMAL) CBC with auto differential (12/31/2024 11:57 PM CDT) WBC 12.28(H) 3.80 - 9.90 K/cumm Comment:Testing performed by : [address], [address] Hgb 7.8(L) 13.0 - 17.5 g/dL [facility] Comment:Testing performed by : [address], [address] Hct 23.2(L) 38.9 - 50.3 % [facility] Comment:Testing performed by : [address] [address] Plt 277 150 - 400 K/cumm [facility] Comment:Testing performed by : [address], [address] MPV 10.0 9.1 - 12.3 fL [facility] Comment:Testing performed by : [address], [address] RBC 2.65(L) 4.30 - 5.80 M/cumm [facility] Comment:Testing performed by : [address], [address] MCV 87.5 81.3 - 96.4 fL [facility] Comment:Testing performed by : [address], [address] MCH 29.4 27.1 - 33.3 pg [facility] Comment:Testing performed by : [address], [address] MCHC 33.6 32.3 - 35.7 g/dL [facility] Comment:Testing performed by : [address], [address] RDW CV 20.6(H) 11.1 - 14.9 % [facility] Comment:Testing performed by : [address], [address] RDW SD 64.0(H) 35.7 - 48.1 fL [facility] Comment:Testing performed by : [address], [address] NRBC abs 0.06(H) 0.00 - 0.01 K/cumm [facility] Comment:Testing performed by : [address], [address] Morphologic Screen Results confirmed by manual morphology review. [facility] Comment:Testing performed by : [address] [address] Blood 12/31/2024 11:5 7 PM CDT 01/01/2025 12:09 AM CDT Bill [employer] LAB BLOOD ORDERABLES Final Res ult Performing Organization Address [facility] de Phone Number [address] [place] [address] * (ABNORMAL) Reticulocyte Count (12/31/2024 11:57 PM CDT) Retics, absolute 410(H) 20 - 87 K/cumm Comment:Testing performed by : [address] [address] Retics 15.5(H) 0.4 - 2.9 % [facility] Comment:Testing performed by : [address] [address] Reticulocyte Hgb 30.8 30.5 - 38.0 pg [facility] Comment:Testing performed by : [address] [address] Blood 12/31/2024 11:5 7 PM CDT 01/01/2025 12:09 AM CDT Bill [employer] LAB BLOOD ORDERABLES Final Res ult Performing Organization Address [facility] de Phone Number [address] [place] [address] * (ABNORMAL) Comprehensive metabolic panel (12/31/2024 11:57 PM CDT) Pathologist [facility] Sodium 137 135 - 145 mmol/L Comment:Testing performed by : [address] [address] Potassium, pl 3.2(L) 3.3 - 4.9 mmol/L [facility] Comment:Testing performed by : [address] [address] Chloride 103 97 - 110 mmol/L [facility] Comment:Testing performed by : [address] [address] CO2 23 22 - 32 mmol/L CERALEJANDRA Comment:Testing performed by : [address], [place]., [address] Anion gap 11 2 - 15 mmol/L [facility] Comment:Testing performed by : [address] [address] BUN 4(L) 6 - 25 mg/dL [facility] Comment:Testing performed by : [address], [place]., [address] Creatinine 0.60(L) 0.80 - 1.30 mg/dL [facility] Comment:Testing performed by : [address] [address] Glucose 115 70 - 199 mg/dL [facility] Comment: Interpretive Data Fasting glucose >/= [...] was last revised 2022. Testing performed by: [address] [address] Calcium 9.1 8.5 - 10.3 mg/dL [facility] Comment:Testing performed by : [address] [address] Bilirubin, total 5.6(H) 0.1 - 1.2 mg/dL [facility] Comment:Testing performed by : [address] [address] Protein, pl 7.9 6.5 - 8.5 g/dL [facility] Comment:Testing performed by : [address] [address] Albumin 4.1 3.5 - 5.0 g/dL [facility] SHETTY Comment:Testing performed by : [facility], [address] [place] [address]., [address] Alk phos 353(H) 40 - 130 Units/L [facility] SHETTY Comment:Testing performed by : [facility], [address] [place] [address]., [address] ALT 27 7 - 55 Units/L [facility] Comment:Testing performed by : [address] [address] AST 53(H) 10 - 50 Units/L [facility] Comment:Testing performed by : [facility], [address] [place] [address]., [address] Blood 12/31/2024 11:5 7 PM CDT 01/01/2025 12:09 AM CDT Bill Carrasquillo DO LAB BLOOD ORDERABLES Final Res ult Performing Organization Address [facility] de Phone Number [facility] [address] [facility] Department [place] [address] * ECG 12 lead (12/31/2024 11:51 PM CDT) Pathologist [facility] Ventricular Rate EKG/Min 107 BPM [facility] Atrial Rate 107 BPM [facility] ND-Interval (MSEC) 178 ms [facility] QRS-Interval (MSEC) 80 ms [facility] QT-Interval (MSEC) 344 ms [facility] QTc 459 ms [facility] P [place] 51 degrees [facility] R [place] 4 degrees [facility] T [place] 15 degrees [facility] Diagnosis Sinus tachycardia Otherwise normal ECG When compared with ECG of 22-DEC-2024 13:08, Nonspecific T wave abnormality no longer evident in Lateral leads Confirmed by Rodrigue Fonseca M.D. ([id number]) on 01/03/2025 8:51:05 AM [facility] 12/31/2024 11:5 1 PM CDT 01/03/2025 8:51 AM CDT Bill Carrasquillo DO ECG ORDERABLES Final Result [facility] * CT Chest PE (CTA) W Contrast [...] the 3-D workstation and sent to the [employer] archival system. COMPARISON: 05/30/2024 FINDINGS: The study [...] the 3-D workstation and sent to the [employer] archival system. COMPARISON: 05/30/2024 FINDINGS: The study [...] panel Nasopharyngeal (12/23/2024 4:03 PM CDT) Pathologist [facility] Influenza A RNA Not Detected Not Detected [facility] Influenza B RNA Not Detected Not Detected [facility] RSV RNA Not Detected Not Detected [facility] COVID-19 RNA Not Detected Not Detected [facility] Coronavirus 229E RNA Not Detected Not Detected [facility] Coronavirus HKU1 RNA Not Detected Not Detected [facility] Coronavirus NL63 RNA Not Detected Not Detected [facility] Coronavirus OC43 RNA Not Detected Not Detected [facility] Adenovirus DNA Not Detected Not Detected [facility] Metapneumovirus RNA Not Detected Not Detected [facility] Rhinovirus/Enterov irus RNA Not Detected Not Detected [facility] Parainfluenza 1 RNA Not Detected Not Detected [facility] Parainfluenza 2 RNA Not Detected Not Detected [facility] Parainfluenza 3 RNA Not Detected Not Detected [facility] Parainfluenza 4 RNA Not Detected Not Detected [facility] B. pertussis DNA Not Detected Not Detected [facility] B. parapertussis DNA Not Detected Not Detected [facility] C. pneumoniae DNA Not Detected Not Detected [facility] M. pneumoniae DNA Not Detected Not Detected [facility] Comment: Interpretive Data The [employer] Video FilmArray Respiratory Panel (RP2.1) assay is a [...] assay has FDA clearance for testing of DEFECT CUTTER swabs. The performance characteristics of this assay have been determined by [facility]. Current interpretive data was last revised on 2020. Nasopharyngeal 12/23/2024 4: 03 PM CDT 12/23/2024 4:10 PM CDT Ruthy [facility] - 12/23/2024 5:11 PM CDT Is the Patient experiencing symptoms consistent with COVID?->Yes Surveillance testing for transplant patient?->No us Elijah Ramirez MD LAB MICROBIOLOGY - GENER AL ORDERABLES Final Result [facility] [address] Department [place] [address] [facility] * XR Chest Pa Lateral 2 Vw [...] García DO LAB BLOOD ORDERABLES Final Result [facility] [address] [place] [address] * (ABNORMAL) Differential, auto (12/23/2024 2:44 PM CDT) Neutrophil abs 4.91 1.50 - 6.50 K/cumm Imm gran abs 0.09 0.00 - 0.10 K/cumm [facility] Lymphocyte abs 3.14 0.80 - 3.30 K/cumm [facility] Monocyte abs 1.13(H) 0.20 - 0.80 K/cumm [facility] Eosinophil abs 0.17 0.00 - 0.50 K/cumm [facility] Basophil abs 0.07 0.00 - 0.10 K/cumm [facility] Neutrophil pct 51.7 % [facility] Comment: Interpretive Data Percent cell count reference ranges are not reported, since discordance with absolute values may lead to misinterpretation of CBC data. Current Interpretive Data was last revised on 2017. Imm gran pct 0.9 % [facility] Comment: Interpretive Data Percent cell count reference ranges are not reported, since discordance with absolute values may lead to misinterpretation of CBC data. Current Interpretive Data was last revised on 2017. Lymphocyte pct 33.0 % [facility] Comment: Interpretive Data Percent cell count reference ranges are not reported, since discordance with absolute values may lead to misinterpretation of CBC data. Current Interpretive Data was last revised on 2017. Monocyte pct 11.9 % [facility] Comment: Interpretive Data Percent cell count reference ranges are not reported, since discordance with absolute values may lead to misinterpretation of CBC data. Current Interpretive Data was last revised on 2017. Eosinophil pct 1.8 % [facility] Comment: Interpretive Data Percent cell count reference ranges are not reported, since discordance with absolute values may lead to misinterpretation of CBC data. Current Interpretive Data was last revised on 2017. Basophil pct 0.7 % [facility] Comment: Interpretive Data Percent cell count reference ranges are not reported, since discordance with absolute values may lead to misinterpretation of CBC data. Current Interpretive Data was last revised on 2017. Blood 12/23/2024 2:44 PM CDT 12/23/2024 2:56 PM CDT us Steve García DO LAB BLOOD ORDERABLES Final Result [facility] [address] Department [place] [address] * (ABNORMAL) Urinalysis reflex to microscopic and culture Urine (12/23/2024 2:44 PM CDT) Color, ur Yellow Yellow Clarity, ur Clear Clear [facility] Specific gravity, ur 1.010 1.003 - 1.030 [facility] pH, urine 7.0 [facility] Comment: Interpretive Data U rine pH is affected by diet, medications, systemic acid-base disturbances, and renal tubular function. pH may affect urinary stone formation. For example, urine pH below 6.0 may help reduce the tendency for calcium phosphate stones and pH greater than 6.0 may reduce the tendency for uric acid stone formation. Source: [facility] [employer] Current Interpretive Data was last revised on 2017 Protein, ur ql Negative Negative [facility] Glucose, ur ql Negative Negative [facility] Ketones, ur Negative Negative [facility] Bilirubin, ur Negative Negative [facility] Blood, ur Negative Negative [facility] Urobilinogen, ur 4.0(A) <2.0 mg/dL [facility] Nitrite, ur Negative Negative [facility] Leukocyte esterase, ur Negative Negative [facility] UA reflex comment Reflex conditions for microscopic UA and culture not met. [facility] Urine 12/23/2024 2:44 PM CDT 12/23/2024 2:45 PM CDT us Elijah Ramirez MD LAB MICROBIOLOGY - GENER AL ORDERABLES Final Result [facility] [address] Department [place] [address] * (ABNORMAL) CBC with auto differential (12/23/2024 2:44 PM CDT) WBC 9.51 3.80 - 9.90 K/cumm Hgb 8.4(L) 13.0 - 17.5 g/dL [facility] Hct 25.6(L) 38.9 - 50.3 % [facility] Plt 343 150 - 400 K/cumm [facility] MPV 10.3 9.1 - 12.3 fL [facility] RBC 2.84(L) 4.30 - 5.80 M/cumm [facility] MCV 90.1 81.3 - 96.4 fL [facility] MCH 29.6 27.1 - 33.3 pg [facility] MCHC 32.8 32.3 - 35.7 g/dL [facility] RDW CV 19.9(H) 11.1 - 14.9 % [facility] RDW SD 64.4(H) 35.7 - 48.1 fL [facility] NRBC abs 0.10(H) 0.00 - 0.01 K/cumm [facility] Morphologic Screen Results confirmed by manual morphology review. [facility] Blood 12/23/2024 2:44 PM CDT 12/23/2024 2:56 PM CDT Elijah Ramirez MD LAB BLOOD ORDERABLES Rashaun missy Result - Final Performing Organization Address [facility] Co de Phone Number [facility] [address] Department [place] [address] * (ABNORMAL) Reticulocyte Count (12/23/2024 2:44 PM CDT) [facility] Retics, absolute 450(H) 20 - 87 K/cumm Comment:Retic verified by di lution. Retics 14.5(H) 0.4 - 2.9 % [facility] Comment:Retic verified by di lution. Reticulocyte Hgb 32.5 30.5 - 38.0 pg [facility] Blood 12/23/2024 2:44 PM CDT 12/23/2024 2:56 PM CDT Elijah Ramirez MD LAB BLOOD ORDERABLES Fin al Result Performing Organization Address [facility] de Phone Number [facility] [address] [place] [address] * (ABNORMAL) Comprehensive metabolic panel (12/23/2024 2:44 PM CDT) [facility] Sodium 138 135 - 145 mmol/L Potassium, pl 3.6 3.3 - 4.9 mmol/L [facility] Chloride 104 97 - 110 mmol/L [facility] CO2 24 22 - 32 mmol/L [facility] Anion gap 10 2 - 15 mmol/L [facility] BUN 3(L) 6 - 25 mg/dL [facility] Creatinine 0.51(L) 0.80 - 1.30 mg/dL [facility] Glucose 93 70 - 199 mg/dL [facility] Comment: Interpretive Data Fasting glucose >/= [...] 2022. Calcium 9.0 8.5 - 10.3 mg/dL [facility] Bilirubin, total 5.9(H) 0.1 - 1.2 mg/dL [facility] Protein, pl 7.5 6.5 - 8.5 g/dL [facility] Albumin 3.9 3.5 - 5.0 g/dL [facility] Alk phos 392(H) 40 - 130 Units/L [facility] ALT 45 7 - 55 Units/L [facility] AST 71(H) 10 - 50 Units/L [facility] Blood 12/23/2024 2:44 PM CDT 12/23/2024 2:56 PM CDT Elijah Ramirez MD LAB BLOOD ORDERABLES Fin al Result Performing Organization Address [facility] Co de Phone Number [facility] [address] Department [place] [address] * ECG 12 lead (12/23/2024 12:42 PM CDT) 12/23/2024 12:4 2 PM CDT Narrative [facility] - 12/23/2024 1:33 PM CDT Vent Rate: 106 bpm RR Interval: 561 msec ND Interval: 160 msec QRS Duration: 90 msec QT Interval: 368 msec QTC Interval: 430 msec P-R-T [place]: 64 - 31 - 15 degrees IMPRESSION: SINUS TACHYCARDIA ABNORMAL RHYTHM ECG Electronically Signed By: Celestino Dunlap [facility] Card Elijah Ramirez MD ECG ORDERABLES Final Re sult Performing Organization Address [facility] Co de Phone Number [facility] [employer] [facility] * XR Chest 1 Vw Portable (12/22/2024 [...] Gina Betancur D.O. PS: PS Report ID: [id number] Reading Location: [id number] Procedure Note Gina Betancur, DO - 12/22/2024 [...] Gina Betancur D.O. PS: PS Report ID: [id number] Reading Location: [place] [address] Cheyanne Johnson [employer]TER IMG XR PROCEDURES Final Result * ECG 12 lead (12/22/2024 1:08 PM CDT) Ventricular Rate EKG/Min 97 BPM [facility] Atrial Rate 97 BPM [facility] ND-Interval (MSEC) 176 ms [facility] QRS-Interval (MSEC) 88 ms [facility] QT-Interval (MSEC) 368 ms [facility] QTc 467 ms [facility] P [place] 59 degrees [facility] R [place] 11 degrees [facility] T [place] 49 degrees [facility] Diagnosis Normal sinus rhythm Nonspecific T wave abnormality Prolonged QT When compared with ECG of 07-DEC-2024 21:21, No significant change was found Confirmed by SULTAN PARHAM M.D. ([id number]) on 12/22/2024 5:48:18 PM [facility] 12/22/2024 1:08 PM CDT 12/22/2024 5:48 PM CDT Cheyanne Johnson [employer]TER ECG ORDERABLES Final Re sult [facility] * (ABNORMAL) Blood smear review (12/22/2024 12:19 PM CDT) RBC morphology Present(A) Comment:Testing performed by : [address] [address] Elliptocytes 3-7/HPF(A) [facility] Comment:Testing performed by : [address] [address] Platelet estimate Adequate [facility] Comment:Testing performed by : [address] [address] Blood 12/22/2024 12:1 9 PM CDT 12/22/2024 12:23 PM CDT Ang Rick MD LAB BLOOD ORDERABLES Final Result Performing Organization Address [facility] Co de Phone Number [facility] [address] [place] [address] * eGFR (12/22/2024 12:19 PM CDT) eGFR [...] was last reviewed 2021. Testing performed by: [facility], [address] [place] [address]., [address] Blood 12/22/2024 12:1 9 PM CDT 12/22/2024 12:23 PM CDT Ang Rick MD LAB BLOOD ORDERABLES Final Result Performing Organization Address City/[facility]/ZIP Co de Phone Number [facility] [address] [place] [address] * (ABNORMAL) Differential, auto (12/22/2024 12:19 PM CDT) Neutrophil abs 4.68 1.50 - 6.50 K/cumm Comment:Testing performed by : [address], [place]., [address] Imm gran abs 0.07 0.00 - 0.10 K/cumm [facility] Comment:Testing performed by : [facility], [address] [place] [address], [place]., [address] Lymphocyte abs 3.02 0.80 - 3.30 K/cumm [facility] Comment:Testing performed by : [address], [place]., [address] Monocyte abs 0.87(H) 0.20 - 0.80 K/cumm [facility] Comment:Testing performed by : [address], [place]., [address] Eosinophil abs 0.19 0.00 - 0.50 K/cumm [facility] Comment:Testing performed by : [address], [place]., [address] Basophil abs 0.05 0.00 - 0.10 K/cumm [facility] Comment:Testing performed by : [address] [address] Neutrophil pct 52.7 % [facility] Comment: Interpretive Data Percent cell count reference ranges are not reported, since discordance with absolute values may lead to misinterpretation of CBC data. Current Interpretive Data was last revised on 2017. Testing performed by: [address] [address] Imm gran pct 0.8 % [facility] Comment: Interpretive Data Percent cell count reference ranges are not reported, since discordance with absolute values may lead to misinterpretation of CBC data. Current Interpretive Data was last revised on 2017. Testing performed by: [address] [address] Lymphocyte pct 34.0 % [facility] Comment: Interpretive Data Percent cell count reference ranges are not reported, since discordance with absolute values may lead to misinterpretation of CBC data. Current Interpretive Data was last revised on 2017. Testing performed by: [address] [address] Monocyte pct 9.8 % [facility] Comment: Interpretive Data Percent cell count reference ranges are not reported, since discordance with absolute values may lead to misinterpretation of CBC data. Current Interpretive Data was last revised on 2017. Testing performed by: [address] [address] Eosinophil pct 2.1 % [facility] Comment: Interpretive Data Percent cell count reference ranges are not reported, since discordance with absolute values may lead to misinterpretation of CBC data. Current Interpretive Data was last revised on 2017. Testing performed by: [address] [address] Basophil pct 0.6 % [facility] Comment: Interpretive Data Percent cell count reference ranges are not reported, since discordance with absolute values may lead to misinterpretation of CBC data. Current Interpretive Data was last revised on 2017. Testing performed by: [address] [address] Blood 12/22/2024 12:1 9 PM CDT 12/22/2024 12:23 PM CDT us Ang Rick MD LAB BLOOD ORDERABLES Final Result [facility] [address] [facility] Department [place] [address] * (ABNORMAL) CBC with auto differential (12/22/2024 12:19 PM CDT) Pathologist [facility] WBC 8.88 3.80 - 9.90 K/cumm Comment:Testing performed by : [address] [address] Hgb 8.4(L) 13.0 - 17.5 g/dL [facility] Comment:Testing performed by : [address] [address] Hct 24.6(L) 38.9 - 50.3 % [facility] Comment:Testing performed by : [address] [address] Plt 356 150 - 400 K/cumm [facility] Comment:Testing performed by : [address] [address] MPV 10.1 9.1 - 12.3 fL [facility] Comment:Testing performed by : [address] [address] RBC 2.82(L) 4.30 - 5.80 M/cumm [facility] Comment:Testing performed by : [address] [address] MCV 87.2 81.3 - 96.4 fL [facility] Comment:Testing performed by : [address] [address] MCH 29.8 27.1 - 33.3 pg [facility] Comment:Testing performed by : [address] [address] MCHC 34.1 32.3 - 35.7 g/dL [facility] Comment:Testing performed by : [address] [address] RDW CV 19.9(H) 11.1 - 14.9 % [facility] Comment:Testing performed by : [address] [address] RDW SD 62.7(H) 35.7 - 48.1 fL [facility] Comment:Testing performed by : [address] [address] NRBC abs 0.12(H) 0.00 - 0.01 K/cumm [facility] Comment:Testing performed by : [address] [address] Blood 12/22/2024 12:1 9 PM CDT 12/22/2024 12:23 PM CDT us Ang Rick MD LAB BLOOD ORDERABLES Edite d Result - Final [facility] [address] [facility] Department of Laboratories [place], [place] [id number] * (ABNORMAL) Reticulocyte Count (12/22/2024 12:19 PM CDT) Retics, absolute 415(H) 20 - 87 [facility] Comment:Testing performed by : [address] [address] Retics 14.7(H) 0.4 - 2.9 % [facility] Comment:Testing performed by : [address] [address] Reticulocyte Hgb 27.9(L) 30.5 - 38.0 pg [facility] Comment:Testing performed by : [address] [address] Blood 12/22/2024 12:1 9 PM CDT 12/22/2024 12:23 PM CDT us Ang Rick MD LAB BLOOD ORDERABLES Final Result Performing Organization Address City/State/[facility] Co de Phone Number [facility] [address] Department [place] [address] * (ABNORMAL) Comprehensive metabolic panel (12/22/2024 12:19 PM CDT) Sodium 139 135 - 145 mmol/L Comment:Testing performed by : [address] [address] Potassium, pl 3.5 3.3 - 4.9 mmol/L [facility] Comment:Testing performed by : [address] [address] Chloride 103 97 - 110 mmol/L [facility] Comment:Testing performed by : [address] [address] CO2 24 22 - 32 mmol/L [facility] Comment:Testing performed by : [address] [address] Anion gap 12 2 - 15 mmol/L [facility] Comment:Testing performed by : [address] [address] BUN 3(L) 6 - 25 mg/dL [facility] Comment:Testing performed by : [address] [address] Creatinine 0.57(L) 0.80 - 1.30 mg/dL [facility] Comment:Testing performed by : [address] [address] Glucose 141 70 - 199 mg/dL [facility] [...] was last revised 2022. Testing performed by: [address] [address] Calcium 9.1 8.5 - 10.3 mg/dL [facility] Comment:Testing performed by : [address] [address] Bilirubin, total 5.4(H) 0.1 - 1.2 mg/dL [facility] Comment:Testing performed by : [address] [address] Protein, pl 7.9 6.5 - 8.5 g/dL [facility] Comment:Testing performed by : [address] [address] Albumin 4.4 3.5 - 5.0 g/dL [facility] Comment:Testing performed by : [address] [address] Alk phos 391(H) 40 - 130 Units/L [facility] Comment:Testing performed by : [address] [address] ALT 50 7 - 55 Units/L [facility] Comment:Testing performed by : [address] [address] AST 86(H) 10 - 50 Units/L [facility] Comment:Testing performed by : [address] [address] Blood 12/22/2024 12:1 9 PM CDT 12/22/2024 12:23 PM CDT us Ang Rick MD LAB BLOOD ORDERABLES Final Result Performing Organization Address [facility] de Phone Number [facility] [address] [address] * eGFR (12/08/2024 9:50 AM CDT) Pathologist [facility] eGFR >90 [...] Final Res ult Performing Organization Address [facility] Co de Phone Number [facility] [address] [place] [address] * (ABNORMAL) Comprehensive metabolic panel (12/08/2024 9:50 AM CDT) [facility] Sodium 137 135 - 145 mmol/L Potassium, pl 3.7 3.3 - 4.9 mmol/L [facility] Comment:Hemolyzed; Potassium value may be falsely elevated by as much as 1.0 mmol/L. Suggest redraw and reanalysis. Chloride 101 97 - 110 mmol/L [facility] CO2 24 22 - 32 mmol/L [facility] Anion gap 12 2 - 15 mmol/L [facility] BUN 4(L) 6 - 25 mg/dL [facility] Creatinine 0.53(L) 0.80 - 1.30 mg/dL [facility] Glucose 109 70 - 199 mg/dL [facility] Comment: Interpretive Data Fasting glucose >/= [...] 2022. Calcium 8.8 8.5 - 10.3 mg/dL [facility] Bilirubin, total 3.3(H) 0.1 - 1.2 mg/dL [facility] Protein, pl 7.8 6.5 - 8.5 g/dL [facility] Albumin 3.9 3.5 - 5.0 g/dL [facility] Alk phos 416(H) 40 - 130 Units/L [facility] ALT 35 7 - 55 Units/L [facility] AST 63(H) 10 - 50 Units/L [facility] Comment:Hemolyzed; result ma y be falsely elevated Blood 12/08/2024 9:50 AM CDT 12/08/2024 9:55 AM CDT us Rasta Garcia MD LAB BLOOD ORDERABLES Final Res ult [facility] [address] [facility] Department [place] [address] * Troponin T high-sensitivity series [...] ORDERABLES Final R esult Performing Organization Address City/[facility] Co de Phone Number KENYETTA[address] [place] [address] * Sepsis Lactate w/ Reflex (12/07/2024 9:52 PM CDT) Sepsis Lactate 1.5 0.7 - 2.0 mmol/L Blood 12/07/2024 9:52 PM CDT 12/07/2024 9:57 PM CDT Guy HO LAB BLOOD ORDERABLES Final R esult Performing Organization Address [facility] de Phone Number [address] [address] * eGFR (12/07/2024 9:52 PM CDT) eGFR [...] ORDERABLES F inal Result Performing Organization Address City/[facility] Co de Phone Number [address] [place] [employer] [address] * (ABNORMAL) CBC with auto differential (12/07/2024 9:52 PM CDT) WBC 15.51(H) 3.80 - 9.90 K/cumm Hgb 8.8(L) 13.0 - 17.5 g/dL [facility] Hct 26.3(L) 38.9 - 50.3 % [facility] Plt 368 150 - 400 K/cumm [facility] MPV 9.7 9.1 - 12.3 fL [facility] RBC 3.04(L) 4.30 - 5.80 M/cumm [facility] MCV 86.5 81.3 - 96.4 fL [facility] MCH 28.9 27.1 - 33.3 pg [facility] MCHC 33.5 32.3 - 35.7 g/dL [facility] RDW CV 18.3(H) 11.1 - 14.9 % [facility] RDW SD 57.4(H) 35.7 - 48.1 fL [facility] NRBC abs 0.05(H) 0.00 - 0.01 K/cumm [facility] Blood 12/07/2024 9:52 PM CDT 12/07/2024 9:57 PM CDT us Lala Ace MD LAB BLOOD ORDERABLES Rashaun missy Result - Final Performing Organization Address [facility] Co de Phone Number [address] [place] [address] * (ABNORMAL) Manual Differential (12/07/2024 9:52 PM CDT) [facility] Differential Manual Cells Counted 100 [facility] Neutrophil abs 12.10(H) 1.50 - 6.50 K/cumm [facility] Lymphocyte abs 2.64 0.80 - 3.30 K/cumm [facility] Monocyte abs 0.78 0.20 - 0.80 K/cumm [facility] Neutrophil pct 78.0 % [facility] Comment: Interpretive Data Percent cell count reference ranges are not reported, since discordance with absolute values may lead to misinterpretation of CBC data. Current Interpretive Data was last revised on 2017. Lymphocyte pct 17.0 % [facility] Comment: Interpretive Data Percent cell count reference ranges are not reported, since discordance with absolute values may lead to misinterpretation of CBC data. Current Interpretive Data was last revised on 2017. Monocyte pct 5.0 % [facility] Comment: Interpretive Data Percent cell count reference ranges are not reported, since discordance with absolute values may lead to misinterpretation of CBC data. Current Interpretive Data was last revised on 2017. RBC morphology Present(A) [facility] Polychromasia 8-15/HPF(A) [facility] Sickle cells 1-2/HPF(A) [facility] Elliptocytes 8-15/HPF(A) [facility] Platelet estimate Automated Count Confirmed [facility] Giant platelets Present(A) [facility] Blood 12/07/2024 9:52 PM CDT 12/07/2024 9:57 PM CDT Lala Ace MD LAB BLOOD ORDERABLES Fin al Result [facility] [address] [facility] Department of Laboratories [place], [place] [id number] * (ABNORMAL) Reticulocyte Count (12/07/2024 9:52 PM CDT) [facility] Retics, absolute 237(H) 20 - 87 K/cumm Retics 7.8(H) 0.4 - 2.9 % [facility] Reticulocyte Hgb 35.9 30.5 - 38.0 pg [facility] Blood 12/07/2024 9:52 PM CDT 12/07/2024 9:57 PM CDT aLla Ace MD LAB BLOOD ORDERABLES Fin al Result [facility] [address] [facility] Department [place] [address] * (ABNORMAL) Comprehensive metabolic panel (12/07/2024 9:52 PM CDT) Pathologist [facility] Sodium 137 135 - 145 mmol/L Potassium, pl 3.5 3.3 - 4.9 mmol/L [facility] Chloride 102 97 - 110 mmol/L [facility] CO2 24 22 - 32 mmol/L [facility] Anion gap 11 2 - 15 mmol/L [facility] BUN 4(L) 6 - 25 mg/dL [facility] Creatinine 0.56(L) 0.80 - 1.30 mg/dL [facility] Glucose 114 70 - 199 mg/dL [facility] Comment: Interpretive Data Fasting glucose >/= [...] 2022. Calcium 9.3 8.5 - 10.3 mg/dL [facility] Bilirubin, total 3.1(H) 0.1 - 1.2 mg/dL [facility] Protein, pl 8.8(H) 6.5 - 8.5 g/dL [facility] Albumin 4.5 3.5 - 5.0 g/dL [facility] Alk phos 472(H) 40 - 130 Units/L [facility] ALT 44 7 - 55 Units/L [facility] AST 73(H) 10 - 50 Units/L [facility] Blood 12/07/2024 9:52 PM CDT 12/07/2024 9:57 PM CDT us Nitza Oliver MD LAB BLOOD ORDERABLES F inal Result [facility] [address] [facility] Department [place] [address] * XR Chest 1 View (12/07/2024 9:35 [...] signed by Andrew LEMA T: Report ID: [id number] Reading Location: [id number] Procedure Note Andrew Stubbs MD - 12/07/2024 [...] signed by Andrew LEMA T: Report ID: [id number] Reading Location: [place] [address] Nitza Oliver MD IMG XR PROCEDURES Stephanie l Result * (ABNORMAL) Urinalysis reflex to microscopic and culture Urine (12/07/2024 9:33 PM CDT) Color, ur Yellow Yellow Clarity, ur Clear Clear [facility] Specific gravity, ur 1.011 1.003 - 1.030 [facility] pH, urine 6.5 [facility] Comment: Interpretive Data U rine pH is affected by diet, medications, systemic acid-base disturbances, and renal tubular function. pH may affect urinary stone formation. For example, urine pH below 6.0 may help reduce the tendency for calcium phosphate stones and pH greater than 6.0 may reduce the tendency for uric acid stone formation. Source: [facility] [employer] Current Interpretive Data was last revised on 2017 Protein, ur ql Negative Negative [facility] Glucose, ur ql Negative Negative [facility] Ketones, ur Negative Negative [facility] Bilirubin, ur Negative Negative [facility] Blood, ur Negative Negative [facility] Urobilinogen, ur 2.0(A) <2.0 mg/dL [facility] Nitrite, ur Negative Negative [facility] Leukocyte esterase, ur Negative Negative [facility] UA reflex comment Reflex conditions for microscopic UA and culture not met. [facility] Urine 12/07/2024 9:33 PM CDT 12/07/2024 9:41 PM CDT us Lala Ace MD LAB MICROBIOLOGY - GENER AL ORDERABLES Final Result [facility] [address] [facility] Department [place] [address] * ECG 12 lead (12/07/2024 9:21 PM CDT) Ventricular Rate EKG/Min 115 BPM [facility] Atrial Rate 115 BPM [facility] ND-Interval (MSEC) 180 ms [facility] QRS-Interval (MSEC) 82 ms [facility] QT-Interval (MSEC) 328 ms [facility] QTc 453 ms [facility] P [place] 44 degrees [facility] R [place] 11 degrees [facility] T [place] 16 degrees [facility] Diagnosis Sinus tachycardia Otherwise normal ECG When compared with ECG of 05-OCT-2024 05:33, Limb lead reversal corrected Confirmed by NING LEON M.D. ([id number]) on 12/08/2024 8:06:53 PM [facility] 12/07/2024 9:21 PM CDT 12/08/2024 8:06 PM CDT us Lala Ace MD ECG ORDERABLES Final Re sult Performing Organization Address [facility] Co de Phone Number [facility] * eGFR (11/08/2024 12:50 PM CDT) eGFR [...] HO LAB BLOOD ORDERABLES F inal Result [facility] [address] Department [place] [address] * (ABNORMAL) CBC without differential (11/08/2024 12:50 PM CDT) WBC 13.40(H) 3.80 - 9.90 K/cumm Hgb 7.6(L) 13.0 - 17.5 g/dL [facility] Hct 23.3(L) 38.9 - 50.3 % [facility] Plt 296 150 - 400 K/cumm [facility] MPV 12.2 9.1 - 12.3 fL [facility] RBC 2.61(L) 4.30 - 5.80 M/cumm [facility] MCV 89.3 81.3 - 96.4 fL [facility] MCH 29.1 27.1 - 33.3 pg [facility] MCHC 32.6 32.3 - 35.7 g/dL [facility] RDW CV 17.1(H) 11.1 - 14.9 % [facility] RDW SD 55.5(H) 35.7 - 48.1 fL [facility] NRBC abs 0.19(H) 0.00 - 0.01 K/cumm [facility] Morphologic Screen Results confirmed by manual morphology review. [facility] Blood 11/08/2024 12:5 0 PM CDT 11/08/2024 12:55 PM CDT us Geovanni HO LAB BLOOD ORDERABLES Final R esult Performing Organization Address City/[facility]/ZIP Co de Phone Number [facility] [address] [place] [employer] [address] * (ABNORMAL) Basic metabolic panel (11/08/2024 12:50 PM CDT) Sodium 140 135 - 145 mmol/L Potassium, pl 2.7(C) 3.3 - 4.9 mmol/L [facility] Comment:Critical Result call ed to and read back by Nelson Nelson, DATE: 2024-11-08 13:39:34 BY: Mac Gustafson Chloride 103 97 - 110 mmol/L [facility] CO2 26 22 - 32 mmol/L [facility] Anion gap 11 2 - 15 mmol/L [facility] BUN 2(L) 6 - 25 mg/dL [facility] Creatinine 0.48(L) 0.80 - 1.30 mg/dL [facility] Comment:Icteric sample, test results may be affected. Glucose 111 70 - 199 mg/dL [facility] Comment: Interpretive Data Fasting glucose [...] 2022. Calcium 8.9 8.5 - 10.3 mg/dL [facility] Blood 11/08/2024 12:5 0 PM CDT 11/08/2024 12:55 PM CDT Geovanni HO LAB BLOOD ORDERABLES Final R esult Performing Organization Address City/[facility]/ZIP Co de Phone Number [facility] TERAN [address] [place] [address] * Type and screen (11/07/2024 2:51 PM CDT) ABO Rh A Positive Yesenia, indirect Negative [facility] Blood 11/07/2024 2:51 PM CDT 11/07/2024 3:20 PM CDT Narrative [facility] - 11/07/2024 4:18 PM CDT Has the patient had Daratumumab or Isatuximab in the past 6 months?->Unknown Geovanni HO LAB BLOOD BANK TEST ORDERABL ES Final Result Performing Organization Address [facility] Co de Phone Number [facility] [address] [place] [address] * (ABNORMAL) Urinalysis reflex to [...] tendency for uric acid stone formation. Source: [facility] Current Interpretive Data was last revised [...] LAB MICROBIOLOGY - GENERAL ORDERABLES Final Result [facility] [address] [facility] [place] [address] * (ABNORMAL) Protein / creatinine ratio, urine, random (11/07/2024 2:43 PM CDT) Pathologist [facility] Protein, ur, quant 8.0 mg/dL Comment: Interpretive [...] URINE ORDERABLES Final Result Performing Organization Address [facility] de Phone Number [facility] [address] [facility] [place] [address] * Albumin Creatinine Ratio, Urine (11/07/2024 2:43 PM CDT) [facility] Albumin Ur <12.0 mg/L Comment: Interpretive Data [...] URINE ORDERABLES Final Result Performing Organization Address [facility] Co de Phone Number [facility] [address] [facility] [place] [address] * Sodium, urine, random (11/07/2024 2:43 PM CDT) Sodium, ur 88 mmol/L Comment: Interpretive Data No reference range established. Current interpretive data was last revised 2018. Urine 11/07/2024 2:43 PM CDT 11/07/2024 2:55 PM CDT Alban Brothers MD LAB URINE ORDERABLES Final Result Performing Organization Address [facility] Co de Phone Number [facility] TERAN [address] [place] [address] * Potassium, urine, random (11/07/2024 2:43 PM CDT) Potassium conc, ur 7.8 mmol/L Comment: Interpretive Data No reference range established. Current interpretive data was last revised 2018. Urine 11/07/2024 2:43 PM CDT 11/07/2024 2:55 PM CDT Alban Brothers MD LAB URINE ORDERABLES Final Result Performing Organization Address [facility] Co de Phone Number K[facility]YETTAALEJANDRA TERAN [address] [place] [address] * Osmolality, urine (11/07/2024 2:43 PM CDT) Osmo, ur 238 mOsm/kg Comment:Testing performed by : [facility], [address] [place] [address] Urine 11/07/2024 2:43 PM CDT 11/07/2024 4:43 PM CDT us Alban Brothers MD LAB URINE ORDERABLES Final Result Performing Organization Address [facility] Co de Phone Number [facility] TERAN [address] [place] [address] * Chloride, urine, random (11/07/2024 2:43 PM CDT) Chloride, ur 78 mmol/L Comment: Interpretive Data No reference range established. Current interpretive data was last revised 2018. Urine 11/07/2024 2:43 PM CDT 11/07/2024 2:55 PM CDT Alban Brothers MD LAB URINE ORDERABLES Final Result Performing Organization Address [facility] Co de Phone Number [facility] TERAN [address] Department [place] [address] * eGFR (11/07/2024 5:14 AM CDT) eGFR [...] ORDERABLES F inal Result Performing Organization Address [facility] Co de Phone Number [facility] TERAN [address] Department [place] [address] * (ABNORMAL) CBC without differential (11/07/2024 5:14 AM CDT) WBC 11.41(H) 3.80 - 9.90 K/cumm Hgb 7.0(L) 13.0 - 17.5 g/dL [facility] Hct 22.3(L) 38.9 - 50.3 % [facility] Plt 172 150 - 400 K/cumm [facility] MPV 12.2 9.1 - 12.3 fL [facility] RBC 2.46(L) 4.30 - 5.80 M/cumm [facility] MCV 90.7 81.3 - 96.4 fL [facility] MCH 28.5 27.1 - 33.3 pg [facility] MCHC 31.4(L) 32.3 - 35.7 g/dL [facility] RDW CV 16.9(H) 11.1 - 14.9 % [facility] RDW SD 55.5(H) 35.7 - 48.1 fL [facility] NRBC abs 0.45(H) 0.00 - 0.01 K/cumm [facility] Blood 11/07/2024 5:14 AM CDT 11/07/2024 5:22 AM CDT Geovanni HO LAB BLOOD ORDERABLES Final R esult Performing Organization Address City/[facility] Co de Phone Number [facility] [address] [place] [address] * Phosphorus (11/07/2024 5:14 AM CDT) [facility] Phosphorus, pl 3.0 2.3 - 4.5 mg/dL Blood 11/07/2024 5:14 AM CDT 11/07/2024 5:21 AM CDT Shahida HO LAB BLOOD ORDERABLES F inal Result Performing Organization Address [facility] Co de Phone Number [facility] [address] [address] [facility] [place] [address] * Magnesium (11/07/2024 5:14 AM CDT) Magnesium 2.0 1.4 - 2.5 mg/dL Blood 11/07/2024 5:14 AM CDT 11/07/2024 5:21 AM CDT Shahida HO LAB BLOOD ORDERABLES F inal Result Performing Organization Address [facility] de Phone Number [facility] [address] [facility] [employer] [place], [place] [id number] * (ABNORMAL) Hepatic function panel (11/07/2024 5:14 [...] AM CDT 11/07/2024 5:21 AM CDT Geovanni [place] LAB BLOOD ORDERABLES Final R esult Performing Organization Address [facility] Co de Phone Number [facility] [address] [place] [address] * (ABNORMAL) Basic metabolic panel (11/07/2024 5:14 [...] affected. Glucose 131 70 - 199 mg/dL [facility] Comment: Interpretive Data Fasting glucose [...] 2022. Calcium 8.4(L) 8.5 - 10.3 mg/dL [facility] Blood 11/07/2024 5:14 AM CDT 11/07/2024 5:21 AM CDT Geovanni HO LAB BLOOD ORDERABLES Final R esult [facility] [address] [place] [address] * Urinalysis reflex to microscopic and culture Urine (2024 3:45 PM CDT) Color, ur Yellow Yellow Clarity, ur Clear Clear [facility] Specific gravity, ur 1.003 1.003 - 1.030 [facility] pH, urine 7.5 [facility] Comment: Interpretive Data U rine pH is affected by diet, medications, systemic acid-base disturbances, and renal tubular function. pH may affect urinary stone formation. For example, urine pH below 6.0 may help reduce the tendency for calcium phosphate stones and pH greater than 6.0 may reduce the tendency for uric acid stone formation. Source: [facility] [employer] Current Interpretive Data was last revised on 2017 Protein, ur ql Negative Negative [facility] Glucose, ur ql Negative Negative [facility] Ketones, ur Negative Negative [facility] Bilirubin, ur Negative Negative [facility] Blood, ur Negative Negative [facility] Urobilinogen, ur <2.0 <2.0 mg/dL [facility] Nitrite, ur Negative Negative [facility] Leukocyte esterase, ur Negative Negative [facility] UA reflex comment Reflex conditions for microscopic UA and culture not met. [facility] Urine 2024 3:45 PM CDT 2024 3:53 PM CDT us Eric López MD LAB MICROBIOLOGY - [facility] Final Result [facility] [address] [place] [address] * (ABNORMAL) Differential, auto (2024 3:34 PM CDT) Neutrophil abs 6.80(H) 1.50 - 6.50 K/cumm Imm gran abs 0.09 0.00 - 0.10 K/cumm [facility] Lymphocyte abs 2.12 0.80 - 3.30 K/cumm [facility] Monocyte abs 0.94(H) 0.20 - 0.80 K/cumm [facility] Eosinophil abs 0.14 0.00 - 0.50 K/cumm [facility] Basophil abs 0.03 0.00 - 0.10 K/cumm [facility] Neutrophil pct 67.2 % [facility] Comment: Differential consistent with previous result. Interpretive Data Percent cell count reference ranges are not reported, since discordance with absolute values may lead to misinterpretation of CBC data. Current Interpretive Data was last revised on 2017. Imm gran pct 0.9 % [facility] Comment: Interpretive Data Percent cell count reference ranges are not reported, since discordance with absolute values may lead to misinterpretation of CBC data. Current Interpretive Data was last revised on 2017. Lymphocyte pct 20.9 % [facility] Comment: Interpretive Data Percent cell count reference ranges are not reported, since discordance with absolute values may lead to misinterpretation of CBC data. Current Interpretive Data was last revised on 2017. Monocyte pct 9.3 % [facility] Comment: Interpretive Data Percent cell count reference ranges are not reported, since discordance with absolute values may lead to misinterpretation of CBC data. Current Interpretive Data was last revised on 2017. Eosinophil pct 1.4 % [facility] Comment: Interpretive Data Percent cell count reference [...] LAB BLOOD ORDERABLES Final Result [facility] TER[facility] [address] Department [place] [address] * Pro B-type natriuretic peptide (2024 3:34 [...] BLOOD ORDERABLES Final Resu lt [facility] [address] [place] [address] * (ABNORMAL) CBC with auto differential (2024 3:34 PM CDT) WBC 10.12(H) 3.80 - 9.90 K/cumm Hgb 7.5(L) 13.0 - 17.5 g/dL [facility] Hct 23.0(L) 38.9 - 50.3 % [facility] Plt 103(L) 150 - 400 K/cumm [facility] MPV 10.8 9.1 - 12.3 fL [facility] RBC 2.56(L) 4.30 - 5.80 M/cumm [facility] MCV 89.8 81.3 - 96.4 fL [facility] MCH 29.3 27.1 - 33.3 pg [facility] MCHC 32.6 32.3 - 35.7 g/dL [facility] RDW CV 17.0(H) 11.1 - 14.9 % [facility] RDW SD 54.7(H) 35.7 - 48.1 fL [facility] NRBC abs 2.49(H) 0.00 - 0.01 K/cumm [facility] Blood 2024 3:34 PM CDT 2024 3:38 PM CDT Bradley Isaacs NP LAB BLOOD ORDERABLES Final Result Performing Organization Address City/[facility]/ZIP Co de Phone Number [facility] JEFFRY [address] [place] [address] * (ABNORMAL) Reticulocyte Count (2024 3:34 PM CDT) Retics, absolute 160(H) 20 - 87 K/cumm Retics 6.3(H) 0.4 - 2.9 % [facility] Reticulocyte Hgb 25.1(L) 30.5 - 38.0 pg [facility] Blood 2024 3:34 PM CDT 11/06/2024 1:58 PM CDT Eric López MD LAB BLOOD ORDERABLES Final Resu lt Performing Organization Address [facility] Co de Phone Number KENYETTAALEJANDRA [address] [address] [place] [address] * Type and screen (2024 3:34 PM CDT) ABO Rh A Positive Yesenia, indirect Negative [facility] Blood 2024 3:34 PM CDT 2024 4:05 PM CDT Narrative [facility] - 2024 5:15 PM CDT Has the patient had Daratumumab or Isatuximab in the past 6 months?->Unknown Geovanni HO LAB BLOOD BANK TEST ORDERABL ES Final Result Performing Organization Address [facility] Co de Phone Number [facility] [address] [address] Department [place] [address] * Transfuse RBC (11/04/2024 3:46 PM CDT) Blood Geovanni HO BLOOD TRANSFUSION ORDERABLES Final Result Performing Organization Address [facility] Co de Phone Number KENYETTAALEJANDRA [address] [place] [address] * Critical Care (11/04/2024 8:26 AM CDT) [...] plan with the ICU team and other medical/internal audit consultant staff, making frequent assessments and decisions [...] Units (11/04/2024 7:51 AM CDT) Product code [id number] Unit Number [id number] [facility] Product Blood Type ONEG [facility] Dispense Status PRESUMED TRANSFUSED [facility] Blood 11/04/2024 7:51 AM CDT Narrative [facility] - 11/04/2024 10:15 PM CDT Are special requirements needed? (All products are leukoreduced and CMV- safe)- >Yes Date required:-[id number] Special Req 1:-Hgb S Negative LRRBC # of [id number] Reasons:-Hgb <7 g/dL} Geovanni HO BLOOD BANK PRODUCT ORDERABLE S Final Result [facility] [address] [address] [place] [address] * Critical Care (11/04/2024 7:48 AM CDT) [...] plan with the ICU team and other medical/internal audit consultant staff, making frequent assessments and decisions [...] ORDERABLES F inal Result Performing Organization Address [facility] Co de Phone Number [facility] TERAN [address] Department [place] [address] * (ABNORMAL) CBC without differential [...] ORDERABLES Final R esult Performing Organization Address [facility]/ZIP Co de Phone Number [facility] TERAN [address] Department [place] [address] * (ABNORMAL) Phosphorus (11/04/2024 3:41 AM CDT) Phosphorus, pl 2.0(L) 2.3 - 4.5 mg/dL Blood 11/04/2024 3:41 AM CDT 11/04/2024 3:44 AM CDT Shahida Shade [employer] [place] LAB BLOOD ORDERABLES F inal Result Performing Organization Address [facility] de Phone Number L[facility] [address] [facility] [place] [address] * Magnesium (11/04/2024 3:41 AM CDT) Pathologist [facility] Magnesium 2.2 1.4 - 2.5 mg/dL Blood 11/04/2024 3:41 AM CDT 11/04/2024 3:44 AM CDT [facility] Daphne [place] LAB BLOOD ORDERABLES F inal Result Performing Organization Address [facility] de Phone Number [facility] [address] [facility] [place] [address] * (ABNORMAL) Basic metabolic panel (11/04/2024 3:41 AM CDT) Pathologist [facility] Sodium 144 135 - 145 mmol/L Potassium, pl 3.6 3.3 - 4.9 mmol/L [facility] Chloride 111(H) 97 - 110 mmol/L [facility] CO2 26 22 - 32 mmol/L [facility] Anion gap 7 2 - 15 mmol/L [facility] BUN 5(L) 6 - 25 mg/dL [facility] Creatinine 0.59(L) 0.80 - 1.30 mg/dL [facility] Comment:Icteric sample, test results may be affected. Glucose 105 70 - 199 mg/dL [facility] Comment: Interpretive Data Fasting glucose [...] BLOOD ORDERABLES Final R esult [facility] TER[facility] [address] [address] [place] [address] * Critical Care (11/03/2024 9:55 PM CDT) [...] plan with the ICU team and other medical/internal audit consultant staff, making frequent assessments and decisions [...] - 5.80 M/cumm Comment:Testing performed by : [facility], [address] [place]., [address] Hgb 7.2(L) 13.0 - 17.5 g/dL [facility] Comment:Testing performed by : [facility], [address] [facility], [address] MCV 84.6 81.3 - 96.4 fL [facility] Comment:Testing performed by : [facility], [address] [facility], [address] Rdw 16.6(H) 11.1 - 14.9 % [facility] Comment:Testing performed by : [facility], [address], [address] Hgb electrophoresis, interp Please see comment [facility] Comment: Previously identified hemoglobinopathy Pattern suggest recent transfusion Reviewed and signed by Anival Holloway MD 11/04/2024 Testing performed by: [facility], [address], [address] Hgb A 78.7(L) 96.0 - 98.5 % [facility] Comment:Testing performed by : [facility], [address], [address] Hgb A2 2.7 1.5 - 3.2 % [facility] Comment:Testing performed by : [facility], [address], [address] Hgb F 2.0(H) 0.0 - 0.9 % [facility] Comment:Testing performed by : [facility], [address], [address] Hgb S 16.6(H) 0.0 - 0.0 % [facility] Comment:Testing performed by : [facility], [address], [address] Blood 11/03/2024 10:0 5 AM CDT 11/03/2024 12:16 PM CDT Geovanni HO LAB [place] [address] [address] Department [place] [address] * Critical Care (11/03/2024 9:04 AM CDT) [...] plan with the ICU team and other medical/internal audit consultant staff, making frequent assessments and decisions [...] ORDERABLES F inal Result Performing Organization Address [facility] Co de Phone Number [facility] JEFFRY [address] [address] [facility] [place] [address] * Phosphorus (11/03/2024 6:05 AM CDT) Pathologist [facility] Phosphorus, pl 2.6 2.3 - 4.5 mg/dL Blood 11/03/2024 6:05 AM CDT 11/03/2024 6:05 AM CDT [facility] [place] LAB BLOOD ORDERABLES F inal Result Performing Organization Address [facility] de Phone Number KENYETTAALEJANDRA TERAN [address] [place] [address] * Magnesium (11/03/2024 6:05 AM CDT) [facility] Magnesium 2.1 1.4 - 2.5 mg/dL Blood 11/03/2024 6:05 AM CDT 11/03/2024 6:05 AM CDT [facility] [place] LAB BLOOD ORDERABLES F inal Result Performing Organization Address [facility] Co de Phone Number KENYETTAALEJANDRA TERAN [address] [address] [place] [address] * (ABNORMAL) Basic metabolic panel (11/03/2024 6:05 AM CDT) Pathologist [facility] Sodium 141 135 - 145 mmol/L Potassium, pl 3.5 3.3 - 4.9 mmol/L [facility] Chloride 105 97 - 110 mmol/L [facility] CO2 27 22 - 32 mmol/L [facility] Anion gap 9 2 - 15 mmol/L [facility] BUN 6 6 - 25 mg/dL [facility] Creatinine 0.55(L) 0.80 - 1.30 mg/dL [facility] Comment:Icteric sample, test results may be affected. Glucose 143 70 - 199 mg/dL [facility] Comment: Interpretive Data Fasting glucose [...] 2022. Calcium 8.1(L) 8.5 - 10.3 mg/dL [facility] Blood 11/03/2024 6:05 AM CDT 11/03/2024 6:05 AM CDT Geovanni HO LAB BLOOD ORDERABLES Final R esult [facility] [address] [address] Department [place] [address] * (ABNORMAL) CBC without differential (11/03/2024 6:04 AM CDT) WBC 10.69(H) 3.80 - 9.90 K/cumm Hgb 7.3(L) 13.0 - 17.5 g/dL [facility] Hct 22.1(L) 38.9 - 50.3 % [facility] Plt 84(L) 150 - 400 K/cumm [facility] MPV 9.8 9.1 - 12.3 fL [facility] RBC 2.55(L) 4.30 - 5.80 M/cumm [facility] MCV 86.7 81.3 - 96.4 fL [facility] MCH 28.6 27.1 - 33.3 pg [facility] MCHC 33.0 32.3 - 35.7 g/dL [facility] RDW CV 16.0(H) 11.1 - 14.9 % [facility] RDW SD 50.4(H) 35.7 - 48.1 fL [facility] NRBC abs 1.36(H) 0.00 - 0.01 K/cumm [facility] Morphologic Screen Results confirmed by manual morphology review. [facility] Blood 11/03/2024 6:04 AM CDT 11/03/2024 6:04 AM CDT us Geovanni HO LAB BLOOD ORDERABLES Final R esult [facility] [address] [address] [place] [address] * Critical Care (11/02/2024 9:23 PM CDT) [...] plan with the ICU team and other medical/internal audit consultant staff, making frequent assessments and decisions [...] without differential (11/02/2024 3:24 PM CDT) Pathologist [facility] WBC 12.29(H) 3.80 - 9.90 K/cumm Comment:Pt received an RBC e xchange of 7-8 units per Noris Thornton RN Hgb 8.7(L) 13.0 - 17.5 g/dL [facility] Hct 26.0(L) 38.9 - 50.3 % [facility] Plt 86(L) 150 - 400 K/cumm [facility] Comment:No clot detected in sample. This result has been called to Noris Thornton RN by [id number] on 11/02/2024 17:18:41. Patient Transfused. MPV 9.7 9.1 - 12.3 fL [facility] RBC 3.00(L) 4.30 - 5.80 M/cumm [facility] MCV 86.7 81.3 - 96.4 fL [facility] MCH 29.0 27.1 - 33.3 pg [facility] MCHC 33.5 32.3 - 35.7 g/dL [facility] RDW CV 15.9(H) 11.1 - 14.9 % [facility] RDW SD 49.6(H) 35.7 - 48.1 fL [facility] NRBC abs 1.00(H) 0.00 - 0.01 K/cumm [facility] Blood 11/02/2024 3:24 PM CDT 11/02/2024 3:27 PM CDT Narrative [facility] - 11/02/2024 5:19 PM CDT Prior to plasma exchange Geovanni HO LAB BLOOD ORDERABLES Final R esult [facility] [address] [address] [place] [address] * (ABNORMAL) BLOOD MISC TO [employer] (11/02/2024 3:05 PM CDT) [facility] Test name, chem [id number] [place] ref Lab Misc See Footnote( A) [facility] Comment: Test Result Flag Unit RefValue Hb Electrophoresis Evaluation Hb Electrophoresis See Footnote Interpretation See Hb Electrophoresis Summary Interpretation (HBEL0) for a discussion of results. Hb A 77.5 L % 95.8-98.0 Hb F 2.0 H % 0.0-0.9 Hb A2 2.6 % 2.0-3.3 Variant 1 17.9 Hb S A % 0.0 ADDITIONAL INFORMATION This test has been modified from the metalworking specialist's instructions. Its performance characteristics were determined by [facility] in a manner consistent with CLIA requirements. This test has not been cleared or approved by the U.S. Food and Drug Administration. HPLC Hb Variant, B See Footnote RESULT: See Interpretation ADDITIONAL INFORMATION This test has been modified from the metalworking specialist's instructions. Its performance characteristics were determined by [facility] in a manner consistent with CLIA requirements. This test has not been cleared or approved by the U.S. Food and Drug Administration. Test Performed by: [place] [address] Leakage Tester: Chris Jorge Ph.D.; CLIA# [id number] Blood 11/02/2024 3:05 PM CDT 11/03/2024 3:05 PM CDT Ruthy Saleem 2024 4:09 PM CDT HEMOGLOBIN ELECTROPHORESIS EVALUATION us Gordo Fischer MD LAB BLOOD ORDERABLES Final Result [facility] [address] [address] Department [place] [address] Mar[facility] ref Lab * (ABNORMAL) [...] tendency for uric acid stone formation. Source: [facility] Current Interpretive Data was last revised on [...] Fischer MD LAB URINE ORDERABLES Final Result [facility] [address] Department of Laboratories [place], [place] [id number] * Urinalysis, microscopic only (11/02/2024 1:01 PM CDT) WBC, ur 0-5 0 - 5 /HPF RBC, ur 0-2 0 - 2 /HPF [facility] Epithelial cells, squamous, ur 1-5 0 - 5 /HPF [facility] Urine 11/02/2024 1:01 PM CDT 11/02/2024 1:09 PM CDT Gordo Fischer MD LAB URINE ORDERABLES Final Result [facility] [address] [place] [address] * Transfuse RBC (11/02/2024 12:48 PM CDT) Blood us Gordo Fischer MD BLOOD TRANSFUSION ORDERABLE S Final Result Performing Organization Address City/[facility]/ZIP Co de Phone Number [facility] [address] [place] [address] * Transfuse RBC (11/02/2024 12:47 PM CDT) Blood us Gordo Fischer MD BLOOD TRANSFUSION ORDERABLE S Final Result Performing Organization Address [facility]/ZIP Co de Phone Number [facility] [address] [place] [place] [address] * Transfuse RBC (11/02/2024 12:46 PM CDT) Blood us Gordo Fischer MD BLOOD TRANSFUSION ORDERABLE S Final Result Performing Organization Address [facility]/ZIP Co de Phone Number [facility] [address] [place] [address] * Transfuse RBC (11/02/2024 12:32 PM CDT) Blood us Gordo Fischer MD BLOOD TRANSFUSION ORDERABLE S Final Result Performing Organization Address City/[facility]/ZIP Co de Phone Number [facility] [address] [place] [address] * Transfuse RBC (11/02/2024 12:32 PM CDT) Blood us Gordo Fischer MD BLOOD TRANSFUSION ORDERABLE S Final Result Performing Organization Address City/[facility]/ZIP Co de Phone Number [facility] [address] [place] [address] * Transfuse RBC (11/02/2024 12:31 PM CDT) Blood Gordo Fischer MD BLOOD TRANSFUSION ORDERABLE S Final Result Performing Organization Address [facility] Co de Phone Number [facility] [address] [place] [address] * Transfuse RBC (11/02/2024 12:31 PM CDT) Blood Gordo Fischer MD BLOOD TRANSFUSION ORDERABLE S Final Result Performing Organization Address [facility] Co de Phone Number [facility] [address] [place] [address] * Transfuse RBC (11/02/2024 12:30 PM CDT) Blood Gordo Fischer MD BLOOD TRANSFUSION ORDERABLE S Final Result Performing Organization Address [facility] Co de Phone Number [facility] [address] [place] [address] * Critical Care (11/02/2024 12:22 PM CDT) Narrative iMller Horton MD - 11/02/2024 12:22 PM CDT [...] plan with the ICU team and other medical/internal audit consultant staff, making frequent assessments and decisions [...] K/cumm Hgb 7.2(L) 13.0 - 17.5 g/dL [facility] Hct 20.5(L) 38.9 - 50.3 % [facility] Plt 187 150 - 400 K/cumm [facility] MPV 10.1 9.1 - 12.3 fL [facility] RBC 2.46(L) 4.30 - 5.80 M/cumm [facility] MCV 83.3 81.3 - 96.4 fL [facility] MCH 29.3 27.1 - 33.3 pg [facility] MCHC 35.1 32.3 - 35.7 g/dL [facility] RDW CV 21.1(H) 11.1 - 14.9 % [facility] RDW SD 63.4(H) 35.7 - 48.1 fL [facility] NRBC abs 1.68(H) 0.00 - 0.01 K/cumm [facility] Morphologic Screen Results confirmed by manual morphology review. [facility] Blood 11/02/2024 8:29 AM CDT 11/02/2024 8:32 AM CDT Narrative [facility] - 11/02/2024 9:03 AM CDT After plasma exchange Geovanni HO LAB BLOOD ORDERABLES Final R esult [facility] [address] Department [place] [address] * eGFR (11/02/2024 4:43 AM [...] BLOOD ORDERABLES F inal Result [facility] TERAN [address] [address] [place] [address] * (ABNORMAL) CBC without differential (11/02/2024 4:43 AM CDT) Pathologist [facility] WBC 20.90(H) 3.80 - 9.90 K/cumm Hgb 7.4(L) 13.0 - 17.5 g/dL [facility] Hct 21.7(L) 38.9 - 50.3 % [facility] Plt 196 150 - 400 K/cumm [facility] MPV 10.3 9.1 - 12.3 fL [facility] RBC 2.61(L) 4.30 - 5.80 M/cumm [facility] MCV 83.1 81.3 - 96.4 fL [facility] MCH 28.4 27.1 - 33.3 pg [facility] MCHC 34.1 32.3 - 35.7 g/dL [facility] RDW CV 20.8(H) 11.1 - 14.9 % [facility] RDW SD 61.0(H) 35.7 - 48.1 fL [facility] NRBC abs 1.77(H) 0.00 - 0.01 K/cumm [facility] Blood 11/02/2024 4:43 AM CDT 11/02/2024 4:43 AM CDT Geovanni HO LAB BLOOD ORDERABLES Final R esult [facility] TERAN [address] [place] [address] * (ABNORMAL) Phosphorus (11/02/2024 4:43 AM CDT) Pathologist [facility] Phosphorus, pl 1.9(L) 2.3 - 4.5 mg/dL Blood 11/02/2024 4:43 AM CDT 11/02/2024 4:43 AM CDT Shahida HO LAB BLOOD ORDERABLES F inal Result Performing Organization Address [facility] Co de Phone Number KENYETTAALEJANDRA TERAN [address] Department [employer] [place], [place] [id number] * Magnesium (11/02/2024 4:43 AM CDT) Pathologist [facility] Magnesium 1.8 1.4 - 2.5 mg/dL Blood 11/02/2024 4:43 AM CDT 11/02/2024 4:43 AM CDT Shahida HO LAB BLOOD ORDERABLES F inal Result Performing Organization Address City/[facility] Co de Phone Number KENYETTAALEJANDRA TERAN [address] [address] Department of [employer] [place], [place] [id number] * (ABNORMAL) Hepatic function panel (11/02/2024 4:43 [...] HO LAB BLOOD ORDERABLES Final R esult [facility] [address] [address] [place] [address] * (ABNORMAL) Basic metabolic panel (11/02/2024 4:43 AM CDT) Pathologist [facility] Sodium 135 135 - 145 mmol/L Potassium, pl 4.2 3.3 - 4.9 mmol/L [facility] Chloride 100 97 - 110 mmol/L [facility] CO2 23 22 - 32 mmol/L [facility] Anion gap 12 2 - 15 mmol/L [facility] BUN 7 6 - 25 mg/dL [facility] Creatinine 0.54(L) 0.80 - 1.30 mg/dL [facility] Comment:Icteric sample, test results may be affected. Glucose 119 70 - 199 mg/dL [facility] Comment: Interpretive Data Fasting glucose >/= 126 [...] 2022. Calcium 8.7 8.5 - 10.3 mg/dL [facility] Blood 11/02/2024 4:43 AM CDT 11/02/2024 4:43 AM CDT Geovanni HO LAB BLOOD ORDERABLES Final R esult [facility] [address] [address] [place] [address] * Blood culture Blood (11/02/2024 3:30 AM CDT) Report Final Report: No growth Comment:Testing performed by : [facility], [address], [place]., [id number] Blood 11/02/2024 3:30 AM CDT 11/02/2024 5:46 AM CDT N[facility]ative [facility] - 11/06/2024 7:00 AM CDT From a [...] performance characteristics have been verified by the [facility] Microbiology Laboratory. For questions about this culture, contact the Microbiology Laboratory at [phone]. Interpretive data was last revised on 24. Shahida Laguerre Daphne HO LAB MICROBIOLOGY - GEN ERAL ORDERABLES Final Result Performing Organization Address City/[facility]/ZIP Co de Phone Number LAMONT TERAN [address] [place] [address] * Blood culture Blood (11/02/2024 3:30 AM CDT) Report Final Report: No growth Comment:Testing performed by : [facility], [address] [place]., [address] Blood 11/02/2024 3:30 AM CDT 11/02/2024 5:46 [...] performance characteristics have been verified by the [facility]biology [facility]. For questions about this culture, contact the Microbiology Laboratory at [phone]. Interpretive data was last revised on 24. Shahidaana laura Laguerre Daphne HO LAB MICROBIOLOGY - GEN ERAL ORDERABLES Final Result Performing Organization Address City/[facility]/ZIP Co de Phone Number LAMONT [address] [place] [address] * Critical Care (11/01/2024 11:19 PM CDT) [...] plan with the ICU team and other medical/internal audit consultant staff, making frequent assessments and decisions [...] ERAL ORDERABLES Final Result Performing Organization Address City/[facility] Co de Phone Number LAMONT TERAN [address] [facility] [employer] [place], [place] [id number] * Legionella antigen Urine (11/01/2024 9:28 PM CDT) Legionella Ag Negative Negative Comment: Interpretive Data This test detects only Legionella pneumophila serogroup 1 antigen. Current interpretive data was last revised on 2019. Urine 11/01/2024 9:28 PM CDT 11/01/2024 9:29 PM CDT Shahida HO LAB MICROBIOLOGY - GEN ERAL ORDERABLES Final Result Performing Organization Address [facility] Co de Phone Number LAMONT TERAN [address] [address] [facility] [place] [address] * ND INSJ NON-TUNNELED CENTRAL VENOUS CATH AGE 6 YR/> (11/01/2024 7:42 PM CDT) Narrative Shahida Serna PA - 11/01/2024 7:42 PM CDT Shahida Serna PA 11/01/2024 7:45 PM Central Line Insertion Date/Time: 11/01/2024 7:42 PM Performed by: Shahida Serna PA Authorized by: Shahida Serna PA [place] Protocol:Immediately prior to the procedure a time [...] by: Gordo Fischer MD CRITICAL CARE: Team: [facility] Shift: AM Level of Billing: Critical Care [...] plan with the ICU team and other medical/internal audit consultant staff, making frequent assessments and decisions [...] - 5.80 M/cumm Comment:Testing performed by : [facility], [address], [address] Hgb 7.4(L) 13.0 - 17.5 g/dL CERNER CH Comment:Testing performed by : [facility], [address], [address] MCV 83.1 81.3 - 96.4 fL CERNER CH Comment:Testing performed by : [facility], [address], [address] Rdw 20.8(H) 11.1 - 14.9 % CERNER CH Comment:Testing performed by : [facility], [address], [address] Hgb electrophoresis, interp Please see comment CERNER CH Comment: Previously identified hemoglobinopathy Pattern suggests recent transfusion Reviewed and signed by Anival Holloway MD 11/02/2024 Testing performed by: [facility], [address], [address] Hgb A 23.6(L) 96.0 - 98.5 % CERNER CH Comment:Testing performed by : [facility], [address], [address] Hgb A2 3.1 1.5 - 3.2 % CERNER CH Comment:Testing performed by : [facility], [address], [address] Hgb F 7.6(H) 0.0 - 0.9 % CERNER CH Comment:Testing performed by : [facility], [address], [address] Hgb S 65.7(H) 0.0 - 0.0 % CERNER CH Comment:Testing performed by : [facility], [address], [address] Blood 11/01/2024 5:26 PM CDT 11/01/2024 8:39 PM CDT Shahida HO LAB BLOOD ORDERABLES F inal Result LAMONT TERAN [address] [place] [address] * (ABNORMAL) CRP (acute phase) (11/01/2024 5:26 PM CDT) CRP 216.4(H) <=10.0 mg/L Blood 11/01/2024 5:26 PM CDT 11/01/2024 5:39 PM CDT Shahida Shade HO LAB BLOOD ORDERABLES F inal Result Performing Organization Address City/[facility] Co de Phone Number LAMONT TERAN [address] [address] [place] [address] * Prepare RBC: 8 Units (11/01/2024 4:06 PM CDT) Product code [id number] CERNER CH Unit Number [id number] CERNER CH Product Blood Type ANEG CERNER CH Dispense Status RETURNED CERNER CH Product code [id number] CERNER CH Unit Number [id number] CERNER CH Product Blood Type APOS CERNER CH Dispense Status PRESUMED TRANSFUSED CERNER CH Product code B9400U56 CERNER CH Unit Number [id number] CERNER CH Product Blood Type APOS CERNER CH Dispense Status PRESUMED TRANSFUSED CERNER CH Product code V8520H05 CERNER CH Unit Number [id number] CERNER CH Product Blood Type APOS CERNER CH Dispense Status PRESUMED TRANSFUSED CERNER CH Product code M3695Y52 Unit Number [id number] CERNER CH Product Blood Type APOS CERNER CH Dispense Status PRESUMED TRANSFUSED CERNER CH Product code W4031B50 CERNER CH Unit Number [id number] CERNER CH Product Blood Type APOS CERNER CH Dispense Status PRESUMED TRANSFUSED CERNER CH Product code C7384S92 CERNER CH Unit Number [id number] CERNER CH Product Blood Type APOS CERNER CH Dispense Status PRESUMED TRANSFUSED CERNER CH Product code [id number] LAMONT TERAN Unit Number [id number] LAMONT TERAN Product Blood Type APOS LAMONT TERAN Dispense Status PRESUMED TRANSFUSED LAMONT TERAN Blood 11/01/2024 4:06 PM CDT Narrative LAMONT TERAN - 2024 12:12 AM CDT Specify Procedure:->exchange transfusion Are special requirements needed? (All products are leukoreduced and CMV- safe)- >Yes Date required:-[id number] Special Req 1:-Hgb S Negative LRRBC # of [id number] Reasons:-Hold for procedure (specify procedure)} us Shahida HO BLOOD BANK PRODUCT ORD ERABLES Final Result LAMONT TERAN [address] [place] [address] * XR Chest 1 View (11/01/2024 3:41 [...] above. Electronically signed by: Julia Hemphill M.D. [facility] Shade Daphne PA IMG XR PROCEDURES Stephanie [...] ORDERABLES F inal Result Performing Organization Address City/[facility]/ZIP Co de Phone Number LAMONT TERAN [address] [employer] [place], [place] [id number] * Calcium, ionized, whole blood (11/01/2024 1:19 PM CDT) Ca, ionized, bld 4.64 4.50 - 5.10 mg/dL Blood 11/01/2024 1:19 PM CDT 11/01/2024 1:34 PM CDT Shahida Carrollnti [place] LAB BLOOD ORDERABLES F inal Result Performing Organization Address [facility] Co de Phone Number LAMONT TERAN [address] [address] [place] [address] * eGFR (11/01/2024 1:19 PM CDT) eGFR [...] PM CDT 11/01/2024 1:35 PM CDT Shahida HO LAB BLOOD ORDERABLES F inal Result [facility] [address] [place] [address] * Respiratory pathogen panel Nasopharyngeal (11/01/2024 1:19 PM CDT) Pathologist [facility] Influenza A RNA Not Detected Not Detected Influenza B RNA Not Detected Not Detected CERNER RSV RNA Not Detected Not Detected CERNER COVID-19 RNA Not Detected Not Detected CERNER Coronavirus 229E RNA Not Detected Not Detected CERNER Coronavirus HKU1 RNA Not Detected Not Detected [facility] Coronavirus NL63 RNA Not Detected Not Detected [facility] Coronavirus OC43 RNA Not Detected Not Detected [facility] Adenovirus DNA Not Detected Not Detected CERNER Metapneumovirus RNA Not Detected Not Detected CERNER Rhinovirus/Enterov irus RNA Not Detected Not Detected CERNER Parainfluenza 1 RNA Not Detected Not Detected [facility] Parainfluenza 2 RNA Not Detected Not Detected CERNER Parainfluenza 3 RNA Not Detected Not Detected CERNER Parainfluenza 4 RNA Not Detected Not Detected [facility] B. pertussis DNA Not Detected Not Detected [facility] B. parapertussis DNA Not Detected Not Detected [facility] C. pneumoniae DNA Not Detected Not Detected [facility] M. pneumoniae DNA Not Detected Not Detected [facility] Comment: Interpretive Data The Venvy Interactive Video FilmArray Respiratory Panel (RP2.1) assay is a [...] assay has FDA clearance for testing of DEFECT CUTTER swabs. The performance characteristics of this assay have been determined by [facility]. Current interpretive data was last revised on 2020. Nasopharyngeal 11/01/2024 1: 19 PM CDT 11/01/2024 1:33 PM CDT Narrative LAMONT TERAN - 11/01/2024 2:38 PM CDT Is the Patient experiencing symptoms consistent with COVID?->Yes Surveillance testing for transplant patient?->No us Shahida HO LAB MICROBIOLOGY - GEN ERAL ORDERABLES Final Result LAMONT TERAN [address] [place] [address] * MRSA Only (Staphylococcus aureus) PCR Nasal (11/01/2024 1:19 PM CDT) Pathologist [facility] PCR Scrn, Methicillin resistant Staphylococcus aureus (MRSA) Not Detected Not Detected Comment: Interpretive Data Testing performed using Nucleic Acid Amplification with the Aruspex Xpert MRSA NxG Assay. This assay detects target DNA from mecA, mecC and the SCCmec insertion site of Staphylococcus aureus using Real-Time PCR and has been cleared by the FDA. Performance characteristics have been verified by the [facility]. Current Interpretive Data was last revised on 2022 Nasal 11/01/2024 1:19 PM CDT 11/01/2024 1:33 PM CDT Shahida HO LAB MICROBIOLOGY - GEN ERAL ORDERABLES Final Result [facility] [address] [address] [place] [address] CH * (ABNORMAL) CBC without differential (11/01/2024 1:19 PM CDT) WBC 20.91(H) 3.80 - 9.90 K/cumm Hgb 7.7(L) 13.0 - 17.5 g/dL [facility] Hct 22.7(L) 38.9 - 50.3 % [facility] Plt 216 150 - 400 K/cumm [facility] MPV 10.2 9.1 - 12.3 fL [facility] RBC 2.68(L) 4.30 - 5.80 M/cumm [facility] MCV 84.7 81.3 - 96.4 fL [facility] MCH 28.7 27.1 - 33.3 pg [facility] MCHC 33.9 32.3 - 35.7 g/dL [facility] RDW CV 20.3(H) 11.1 - 14.9 % [facility] RDW SD 61.5(H) 35.7 - 48.1 fL [facility] NRBC abs 1.59(H) 0.00 - 0.01 K/cumm [facility] Morphologic Screen Results confirmed by manual morphology review. [facility] Blood 11/01/2024 1:19 PM CDT 11/01/2024 1:35 PM CDT us Shahida HO LAB BLOOD ORDERABLES F inal Result Performing Organization Address [facility]/ZIP Co de Phone Number LAMONT TERAN [address] [address] [facility] [place] [address] * Prepare RBC (11/01/2024 1:19 PM CDT) Product code [id number] Unit Number [id number] CERNER CH Product Blood Type ANEG CERNER CH Dispense Status PRESUMED TRANSFUSED CERNER CH Product code [id number] CERNER CH Unit Number [id number] CERNER CH Product Blood Type ANEG CERNER CH Dispense Status RETURNED CERNER CH Blood 11/01/2024 1:19 PM CDT 11/01/2024 1:37 PM CDT Shahida HO BLOOD BANK PRODUCT ORD ERABLES Final Result Performing Organization Address [facility] Co de Phone Number KENYETTAALEJANDRA TERAN [address] [place] [address] * Type and screen (11/01/2024 1:19 PM CDT) Pathologist [facility] ABO Rh A Positive Yesenia, indirect Negative CERNER CH Blood 11/01/2024 1:19 PM CDT 11/01/2024 1:35 PM CDT Narrative CERNER CH - 11/01/2024 2:13 PM CDT Has the patient had Daratumumab or Isatuximab in the past 6 months?->Unknown Geovanni HO LAB BLOOD BANK TEST ORDERABL ES Final Result Performing Organization Address [facility]/ZIP Co de Phone Number LAMONT TERAN [address] [address] [facility] [place] [address] * Phosphorus (11/01/2024 1:19 PM CDT) Phosphorus, pl 2.7 2.3 - 4.5 mg/dL Blood 11/01/2024 1:19 PM CDT 11/01/2024 1:35 PM CDT Shahida Serna [place] LAB BLOOD ORDERABLES F inal Result Performing Organization Address City/[facility]/ZIP Co de Phone Number LAMONT [address] [address] [place] [address] * Magnesium (11/01/2024 1:19 PM CDT) Pathologist [facility] Magnesium 1.8 1.4 - 2.5 mg/dL Blood 11/01/2024 1:19 PM CDT 11/01/2024 1:35 PM CDT Shahida Senra [place] LAB BLOOD ORDERABLES F inal Result Performing Organization Address [facility] de Phone Number LAMONT [address] [address] [place] [address] * (ABNORMAL) Comprehensive metabolic panel (11/01/2024 1:19 PM CDT) Pathologist [facility] Sodium 136 135 - 145 mmol/L Potassium, pl 5.0(H) 3.3 - 4.9 mmol/L [facility] Comment:Hemolysis present. R esults may be affected. Chloride 102 97 - 110 mmol/L [facility] CO2 23 22 - 32 mmol/L [facility] Anion gap 11 2 - 15 mmol/L [facility] BUN 8 6 - 25 mg/dL [facility] Creatinine 0.59(L) 0.80 - 1.30 mg/dL [facility] Comment:Icteric sample, test results may be affected. Glucose 122 70 - 199 mg/dL [facility] Comment: Interpretive Data Fasting glucose [...] LAB BLOOD ORDERABLES F inal Result LAMONT [address] [address] [place] [address] * Critical Care (11/01/2024 12:56 PM CDT) [...] plan with the ICU team and other medical/internal audit consultant staff, making frequent assessments and decisions [...] Final Result Performing Organization Address City/State/ZIP Co ga Phone Number [facility] [place] [address] from Last 3 Months or Most Recently Relevant to Health Maintenance Insurance [facility] COUNT INCLUDES THE [facility] MARITZA HERNANDEZ Advance Directives For more information, please contact: [phone] * Full Code (Latest Code Status on [...] 1:17 AM 09/23/2024 10:31 PM Care Teams Retort Condenser Attendant Relationship Specialty Start Date End Date Laurent Gonzalez MD [address] [place] [address] PCP - General Hematology and Oncology 10/18/23 Ray Sainz MD [address] [facility] [address] [place] [address] 02/10/20 [place] [address] [address] [facility] [address] [place] [address] Consulting Physician Family Medicine 05/05/22 Miscellaneous, Not In File 12/14/22 [place] [address] [address] [facility] [address] [place] [address] Consulting Physician Orthopedic Surgery 08/18/24
--- OUTSIDE RECORDS SUMMARY | 2025-01-19 11:33 | XMS_ITS | Clinical Summary ---
Author Organization [facility] Facility Address [address] [address] Care Team Providers Care Merchandise Buyer Name Role Phone Laurent Gonzalez MD Primary Care Provider [phone] Encounters Date Type Department Care Team Description 11/10/2024 Documentation Only [facility], [address] [phone] Perla Feldman from Last 3 Months Social [...] Vaccine (#1) 2025 1, 05/03/2009, 05/03/2009 Insurance ON [employer] [facility] ([id number]) Care Teams Merchandise Buyer Relationship Specialty Start Date End Date Laurent Gonzalez MD PCP - General Hematology 11/08/24
--- OUTSIDE RECORDS SUMMARY | 2025-01-19 11:33 | XMS_ITS | Encounter Summary ---
Author Organization [facility] Address 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
--- OUTSIDE RECORDS SUMMARY | 2025-01-19 11:33 | XMS_ITS | Encounter Summary ---
Author Organization [facility] Address 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
--- OUTSIDE RECORDS SUMMARY | 2025-01-19 11:33 | XMS_ITS | Encounter Summary ---
Author Organization [facility] Healthcare Address [address] [place] [address] Care Team Providers Care Inspector Paper Products Name Role Phone Ray Sainz MD Unavailable [phone] Miscellaneous, Not In File Primary Care Provider Unavailable Laurent Gonzalez MD Primary Care Provider [phone] Gordo Herrera MD Unavailable [phone] Travis Richards MD Primary Care Provider [phone] Miscellaneous, Not In File Unavailable Unava ilable Daily Cooper MD Primary Care Provider [phone] Laurent Gonzalez MD Primary Care Provider [phone] Mariam Hedrick Unavailable Unavailable Ning Lowery DNP Unavailable [phone] Mariam Hedrick Unavailable Unavailable Ning Lowery DNP Unavailable [phone] Ana Duran RN Unavailable [phone] Areli Zuniga Unavailable Unavailable Ning Lowery DNP Unavailable [phone] Tobin Terrell MD Unavailable [phone] Encounter Details Date Type Department Care Team (Late st Contact Info) Description 11/22/2020 Documentation [facility] Case Management [address] [place] [address] Roula Llanos MSW Social History Tobacco Use Types Packs/Day Years Used Date Smoking Tobacco: Never Smokeless Tobacco: Never Alcohol Use Standard Drinks/Week Comments Not Currently 0 (1 standard drink = 0.6 oz pur e alcohol) Sex and Gender Information Value Date Recorded Sex Assigned at Not on file 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 Roula Llanos LMSW [phone] documented in this encounter Plan of Treatment [...] antipyretics, immunocompetent pt. Flag removed. Talat Shay [phone] 02/09/2023 02/09/2023 02/12/2023 11 :55 AM CDT COVID: Recovered 02/12/2023 02/12/2023 05/13/2023 3:05 AM EXPERIENCE PLANNING STRATEGIST COVID: Suspected 04/27/2023 04/27/2023 04/27/2023 4:11 AM EXPERIENCE PLANNING STRATEGIST COVID: Suspected 06/26/2023 06/26/2023 06/26/2023 11:44 PM EXPERIENCE PLANNING STRATEGIST Diarrhea 06/26/2023 06/26/2023 07/10/2023 3:05 AM EXPERIENCE PLANNING STRATEGIST C. difficile suspected 08/30/2023 08/30/202308/30 2:37 PM [...] COVID: Suspected 03/30/2024 03/30/2024 03/30/2024 1:29 PM EXPERIENCE PLANNING STRATEGIST C. difficile suspected 05/12/2024 05/14/202405/14 7:10 AM EXPERIENCE PLANNING STRATEGIST COVID: Suspected 05/29/2024 05/29/2024 05/29/2024 10:06 PM EXPERIENCE PLANNING STRATEGIST COVID: Suspected 07/24/2024 07/24/2024 07/24/2024 5:44 AM EXPERIENCE PLANNING STRATEGIST Norovirus suspected 07/24/2024 07/24/2024 07/30/19 3:05 AM EXPERIENCE PLANNING STRATEGIST C. difficile suspected 07/24/2024 07/24/202407/29 3:05 AM EXPERIENCE PLANNING STRATEGIST COVID: Suspected 08/13/2024 08/13/2024 08/13/2024 1:30 PM CDT COVID: Suspected 11/01/2024 11/01/2024 11/01/2024 2:39 PM CDT Ring Surveillance: C. auris 11/08/2024 11/08/2024 11/15/2024 7:26 PM CDT COVID: Suspected 12/23/2024 12/23/2024 12/23/2024 5:12 PM CDT documented as of this encounter Care Teams Inspector Paper Products Relationship Specialty Start Date End Date Miscellaneous, Not In File PCP - General 11/22/20 11/20/21 Laurent Gonzalez MD [address] [place] [address] PCP - General 11/21/21 08/11/22 Travis Richards MD [address] [facility] [address] [place] [address] PCP - General Pediatric Hematology and Oncology 08/12/22 12/18/22 Daily Cooper MD [address] [place] [address] PCP - General Internal Medicine 12/19/22 10/17/23 Laurent Gonzalez MD [address] [place] [address] PCP - General Hematology and Oncology 10/18/23 Ray Sainz MD [address] [facility] [address] [place] [address] 02/10/20 [place] [address] [facility] [address] [place] [address] Consulting Physician Family Medicine 05/05/22 Miscellaneous, Not In File 12/14/22 Mariam Hedrick Outpatient Parcel Carrier 03/31/24 04/04/24 Ning Lowery DNP [address] [facility] [address] [place] [address] Nurse Practitioner Internal Medicine 03/31/24 04/04/24 Mariam Hedrick Outpatient Parcel Carrier 05/31/24 08/15/24 Ning Lowery DNP [address] [facility] [address] [place] [address] Nurse Practitioner Internal Medicine 05/31/24 08/15/24 Ana Duran, BOUCHRA [address] [facility] [address] [place] [address] [facility] Outpatient Parcel Carrier 07/29/24 08/02/24 Areli Zuniga Outpatient Parcel Carrier 08/16/24 09/23/24 Ning Lowery DNP [address] [facility] [address] [place] [address] Nurse Practitioner Internal Medicine 08/16/24 09/23/24 [place] [address] [address] [facility] [address] [place] [address] Consulting Physician Orthopedic Surgery 08/18/24 documented as of this encounter
--- OUTSIDE RECORDS SUMMARY | 2025-01-19 11:33 | XMS_ITS | Clinical Summary ---
Author Organization [facility] Address [address] [place] [address] Phone Care Team Providers Care Titrator Name Role Phone Unavailable Primary Care Provider [...] mouth daily. Active naloxone (NARCAN) 4 mg/spray Paragon, Non-Aerosol EMERGENCY USE ONLY: Administer 1 spray [...] Encounters Date Type Department Care Team Description 01/19/2025 External Device Data [facility]STRACTION Provider, Abstract 01/18/2025 External Device Data [facility] Provider, Abstract 01/12/2025 External Device Data [facility] Provider, Abstract 12/29/2024 External Device Data [facility] Provider, Abstract 12/28/2024 External Device Data [facility] Provider, Abstract 12/28/2024 External Device Data [facility]CTION Provider, Abstract 12/23/2024 12:38 AM CDT - 12/23/2024 12:06 PM CDT Emergency [facility] Emergency Department [address] [place] [address] Thien Narayan MD Sickle cell pain crisis (CMS/HCC) (Primary Dx) Discharge Disposition: Home or Self Care 12/14/2024 External Device Data [facility] ABSTRACTION Provider, Abstract 12/09/2024 8:20 PM CDT - 12/13/2024 11:30 AM CDT Hospital Encounter [facility] Telemetry [address] [place] [address] Guy Lowery MD Abduljaber, MD Marlin Gale, Humberto Elam MD Sickle cell crisis ([facility]) Discharge Disposition: Home or Self Care 12/09/2024 Travel 12/08/2024 External Device Data [facility] ABSTRACTION Provider, Abstract 12/07/2024 External Device Data [facility] ABSTRACTION Provider, Abstract 11/23/2024 External Device Data [facility]STRACTION Provider, Abstract 11/23/2024 External Device Data [facility] ABSTRACTION Provider, Abstract 11/16/2024 External Device Data [facility] ABSTRACTION Provider, Abstract 10/20/2024 3:42 AM CDT - 10/29/2024 2:51 PM CDT Hospital Encounter [facility] Oncology [address] [place] [address] Thien Narayan MD Page, William J, MD Hill, Fransisco Mcelroy, DO Madrid, Lory Mcelroy, Song Up MD Sickle cell crisis ([facility]) Discharge Disposition: Home or Self Care 10/19/2024 [...] on file 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 Gender Identity Not on file Sexual Orientation [...] 3-dose SCD M series) 11/06/2023 COVID-19 Vaccine (2023-2 5 season) 2024 01/23/2022 INFLUENZA VACCINE (#1) 2024 1, 05/03/2009, 05/03/2009 DTAP/TDAP/TD VACCINES (5 - T d or Tdap) 02/09/2030 02/10/2020, 09/27/2009, 12/30/2007, Additional history exists Medical Devices Implanted Type Area Cell Room Supervisor Device Identifier Shelf Expiration Date Model / Serial / Lot Core Decompression Procedure Kit Pro Dense Implanted:Qty: 1 on 06/30/2022 by Gordo Suazo MD at [facility] Left: Hip BHATT Zebtab [id number] 04/28/2027 [id number] / / [id number] Description:Requisition # [id number]. Procedures Procedure Name Priority Date/Time Associated Diagnosis [...] CDT 12/23/2024 9:19 AM CDT us Protocol [facility] Emergency MD URINE ORDERABLES Fin al Result [facility] [id number] [address] [place] [address] * (ABNORMAL) CBC WITH DIFFERENTIAL (12/23/2024 1:41 AM CDT) Only the most recent of9 resultswithin the time period is included. WBC 10.9(H) 4.0 - 9.8 K/uL 12/23/2024 2:39 AM CDT [facility] - [facility] NRBCS 1 % 12/23/2024 2:39 AM CDT [facility] - [facility] RBC 2.86(L) 4.50 - 5.40 M/uL 12/23/2024 2:39 AM CDT [facility] - [facility] HEMOGLOBIN 8.4(L) 13.6 - 16.5 g/dL 12/23/2024 2:39 AM CDT [facility] - [facility] HEMATOCRIT 25.2(L) 40.0 - 48.0 % 12/23/2024 2:39 AM CDT [facility] - [facility] MCV 88.1 82.0 - 99.0 fL 12/23/2024 2:39 AM CDT [facility] - [facility] MCH 29.4 27.2 - 32.6 pg 12/23/2024 2:39 AM CDT [facility] - [facility] MCHC 33.3 31.5 - 35.5 g/dL 12/23/2024 2:39 AM CDT [facility] - [facility] RDW 19.3(H) 11.5 - 14.5 % 12/23/2024 2:39 AM CDT [facility] - [facility] RDW-STDEV 62.1(H) 37.1 - 48.7 fL 12/23/2024 2:39 AM CDT [facility] - [facility] PLATELETS 359(H) 140 - 350 K/uL 12/23/2024 2:39 AM CDT [facility] - [facility] MPV 10.5 9.3 - 12.4 fL 12/23/2024 2:39 AM CDT [facility] - [facility] NEUTROPHILS 60 % 12/23/2024 2:39 AM CDT [facility] - [facility] LYMPHOCYTES 29 % 12/23/2024 2:39 AM CDT [facility] - [facility] MONOCYTES 10 % 12/23/2024 2:39 AM CDT [facility] - [facility] EOSINOPHILS 1 % 12/23/2024 2:39 AM CDT [facility] - [facility] BASOPHILS 1 % 12/23/2024 2:39 AM CDT [facility] - [facility] IMMATURE GRANULOCYTES 0 % 12/23/2024 2:39 AM CDT [facility] - [facility] NEUTROPHIL ABSOLUTE 6.56 1.90 - 7.00 K/uL 12/23/2024 2:39 AM CDT [facility] - [facility] LYMPHOCYTE ABSOLUTE 3.10 0.70 - 4.50 K/uL 12/23/2024 2:39 AM CDT [facility] - [facility] MONOCYTE ABSOLUTE 1.03 0.10 - 1.30 K/uL 12/23/2024 2:39 AM CDT [facility] - [facility] EOSINOPHIL ABSOLUTE 0.08 0.00 - 0.70 K/uL 12/23/2024 2:39 AM CDT [facility] - [facility] BASOPHILS ABSOLUTE 0.05 0.00 - 0.20 K/uL 12/23/2024 2:39 AM CDT [facility] - [facility] IMMATURE GRANULOCYTES ABSOLUTE 0.03 0.00 - 0.03 K/uL 12/23/2024 2:39 AM CDT [facility] - [facility] Blood Venipuncture / Unknown 12/23/2024 1:41 AM CDT 12/23/2024 1:47 AM CDT Bk Luke IV, DO HEMATOLOGY ORDERA BLES Final Result [facility] - [facility] CLIA# [id number] 5 [facility] [address] [place] [address] * (ABNORMAL) RETICULOCYTES (12/23/2024 1:41 AM CDT) Only the most recent of7 resultswithin the time period is included. Pathologist [facility] RETICULOCYTES 13.0(H) 0.7 - 2.9 % 12/23/2024 3:04 AM CDT [facility]ORY SERVICES - . [facility] IMMATURE RETIC FRACTION 37.2(H) 3.0 - 18.0 % 12/23/2024 3:04 AM CDT [facility] SERVICES - . [facility] RETICULOCYTE, ABSOLUTE 0.3656 10e6/uL 12/23/2024 3:04 AM CDT [facility] - . [facility] Comment:Quantitated by dilut ion. Blood Venipuncture / Unknown 12/23/2024 1:41 AM CDT 12/23/2024 1:47 AM CDT Bk Luke IV, DO HEMATOLOGY ORDERA BLES Final Result [facility] SERVICES [facility]# [id number] 5 [facility] [place] [address] * (ABNORMAL) COMPREHENSIVE METABOLIC PANEL (12/23/2024 1:41 AM CDT) Only the most recent of7 resultswithin the time period is included. Pathologist [facility] SODIUM 136 136 - 145 mmol/L 12/23/2024 2:23 AM CDT [facility] LABORATORY SERVICES [facility] POTASSIUM 3.5 3.5 - 5.0 mmol/L 12/23/2024 2:23 AM CDT [facility]ATORY SERVICES - . [facility] CHLORIDE 102 98 - 107 mmol/L 12/23/2024 2:23 AM CDT [facility] - . [facility] CO2 24 22 - 29 mmol/L 12/23/2024 2:23 AM CDT [facility] - . [facility] CALCIUM 9.2 8.6 - 10.2 mg/dL 12/23/2024 2:23 AM CDT [facility] SERVICES - . [facility] BUN 3(L) 6 - 20 mg/dL 12/23/2024 2:23 AM CDT [facility] CREATININE 0.49(L) 0.67 - 1.17 mg/dL 12/23/2024 2:23 AM [facility] GLUCOSE 101(H) 74 - 99 mg/dL 12/23/2024 2:23 AM [facility] TOTAL PROTEIN 8.0 6.7 - 8.6 g/dL 12/23/2024 2:23 AM [facility] ALBUMIN 4.1 3.5 - 5.2 g/dL 12/23/2024 2:23 AM [facility] BILIRUBIN TOTAL 5.7(H) 0.0 - 1.2 mg/dL 12/23/2024 2:23 AM [facility] ALKALINE PHOSPHATASE 403(H) 40 - 129 U/L 12/23/2024 2:23 AM [facility] AST 78(H) <41 U/L 12/23/2024 2:23 AM [facility] ALT 49(H) <42 U/L 12/23/2024 2:23 AM [facility] GFR >60 >=60 mL/min/1.7 3 sq meter 12/23/2024 2:23 AM [facility] Comment:eGFR calculated with 2020 CKD-EPI equation. Vegetarian diet, extremely high or low muscle mass, and may affect results. Cystatin C with Glomerular Filtration Rate is a suitable alternative for these patients. ANION GAP 10 8 - 16 mmol/L 12/23/2024 2:23 AM [facility] Blood Venipuncture / Unknown 12/23/2024 1:41 AM T 12/23/2024 1:[address] [facility] Narrative [facility] - 12/23/2024 2:[address] [facility] Samples containing indocyanine green cause interferences on Total and/or Direct Bilirubin and must not be measured. us Bk Luke IV, DO CHEMISTRY ORDERAB LES Final Result [facility] CLIA# [id number] [address] [place] [address] * XR CHEST PA AND LATERAL 2 [...] PA AND LATERAL 2 VW Ordering provider: [facility] EM[facility] History: 29 years Male with Chest Pain. See Reason for Exam. 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1995 Requested By: Order Number: [id number] Reading MD: Jame Hernandez Measurements Intervals [place] Rate: 93 P: 24 AR: 202 QRS: 26 QRSD: 87 T: 24 QT: 379 QTc: 472 Interpretive Statements Sinus rhythm Borderline prolonged AR interval Possible left atrial enlargement Borderline prolonged QT interval Electronically Signed On 12-23-2024 6:03:06 CDT by Jame Hernandez Procedure Note Jame Hernandez MD - 12/23/2024 [facility] [address] [place] [address] Test Date: 2024-12-22 Pat Name: JOHNNY SIMON Department: 37 Room: Gender: Male 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1995 Requested By: Order Number: [id number] Reading MD: Jame Hernandez Measurements Intervals [place] Rate: 93 P: 24 AR: 202 QRS: 26 QRSD: 87 T: 24 QT: 379 QTc: 472 Interpretive Statements Sinus rhythm Borderline prolonged AR interval Possible left atrial enlargement Borderline prolonged QT interval Electronically Signed On 12-23-2024 6:03:06 CDT by Jame Hernandez us Thien Narayan MD ECG ORDERABLES Final Result Performing Organization Address City/State/[facility] Co de Phone Number INTERFACE SYSTEM Refer to clinic/hospital department * TELEMETRY REPORT (12/15/2024 12:08 PM CDT) Only the most recent of2 resultswithin the time period is included. us Provider Scanning ECG ORDERABLES Final Result * TROPONIN BASELINE, 5TH GEN (12/10/2024 8:19 AM CDT) TROPONIN T, BASELINE 5TH GEN <6 <=15 ng/L 12/10/2024 9:24 AM CDT [facility] Blood Venipuncture / Unknown 12/10/2024 8:19 AM CDT 12/10/2024 8:36 AM CDT Narrative [facility] - 12/10/2024 9:24 AM CDT Troponin Undetectable Iglesia Rausch PA-C CHEMISTRY ORDERABLES Fin al Result Performing Organization Address [facility] de Phone Number [facility] CLIA# [id number] [address] [place] [address] * (ABNORMAL) LACTATE DEHYDROGENASE (12/10/2024 8:19 AM CDT) Only the most recent of3 resultswithin the time period is included. LD (LACTATE DEHYDROGENASE) 438(H) 135 - 225 U/L 12/10/2024 9:24 AM CDT [facility] Comment:Moderate hemolysis p resent. Can cause significant falsely elevated result. Redraw if indicated. Blood Venipuncture / Unknown 12/10/2024 8:19 AM CDT 12/10/2024 8:36 AM CDT Iglesia Rausch PA-C CHEMISTRY ORDERABLES Fin al Result Performing Organization Address [facility] de Phone Number [facility] CLIA# [id number] [address] [place] [address] * (ABNORMAL) HAPTOGLOBIN (12/10/2024 8:19 AM CDT) HAPTOGLOBIN <10(L) 30 - 200 mg/dL 12/10/2024 9:42 AM CDT [facility] Comment:Hemolysis present. R esult may be falsely decreased. Blood Venipuncture / Unknown 12/10/2024 8:19 AM CDT 12/10/2024 8:34 AM CDT Iglesia Rausch PA-C CHEMISTRY ORDERABLES Fin al Result Performing Organization Address City/[facility] Co de Phone Number [facility]# [id number] [address] [place] [address] * MANUAL DIFFERENTIAL (10/27/2024 12:19 PM CDT) Only the most recent of5 resultswithin the time period is included. PLATELET EST. Consistent w Count 10/27/2024 1:50 PM CDT [facility] LABORATORY SERVICES - . [facility] ANISOCYTOSIS 1+ /hpf 10/27/2024 1:50 PM CDT [facility] LABORATORY SERVICES - . [facility] POIKILOCYTES 1+ /hpf 10/27/2024 1:50 PM CDT [facility] LABORATORY SERVICES - . [facility] POLYCHROMASIA 1+ /hpf 10/27/2024 1:50 PM CDT [facility] LABORATORY SERVICES - [facility] TARGET CELLS 1+ /hpf 10/27/2024 1:50 PM CDT [facility] - [facility] SICKLE CELLS 1+ /hpf 10/27/2024 1:50 PM CDT [facility] LABORATORY SERVICES - . [facility] Blood Venipuncture / Unknown 10/27/2024 12:19 PM CDT 10/27/2024 12:37 PM CDT Song Long MD HEMATOLOGY ORDERABLES COM Final Result Performing Organization Address [facility] Co de Phone Number [facility]# [id number] [address] [place] [address] * MRI SHOULDER WO CONTRAST RIGHT (10/22/2024 [...] study. 6. Motion limited evaluation. DICTATION LOCATION: [address] CPM Narrative 10/22/2024 3:37 PM CDT [...] 6. Motion limited evaluation. DICTATION LOCATION: Location [address] [place] [address] Lory Madrid DO MR ORDERABLES Final Result * URINALYSIS WITH REFLEX MICROSCOPIC (10/20/2024 10:32 PM CDT) COLOR UA Yellow Pale to Dark Yellow 10/20/2024 11:02 PM T [facility] - [facility] CLARITY UA Clear Clear 10/20/2024 11:02 PM CDT [facility] - [facility] SPECIFIC GRAVITY UA 1.014 1.003 - 1.035 10/20/2024 11:02 PM T [facility] - [facility] PH UA 6.0 5.0 - 8.0 10/20/2024 11:02 PM T [facility] - [facility] LEUKOCYTE ESTERASE UA Negative Negative 10/20/2024 11:02 PM CDT [facility] - [facility] NITRITE UA Negative Negative 10/20/2024 11:02 PM CDT [facility] - [facility] PROTEIN UA Negative Negative 10/20/2024 11:02 PM CDT [facility] LABORATORY [facility] GLUCOSE UA Negative Negative 10/20/2024 11:02 PM CDT [facility] LABORATORY [facility] KETONES UA Negative Negative 10/20/2024 11:02 PM CDT [facility] LABORATORY [facility] - . [facility] UROBILINOGEN UA Normal <2.0 mg/dL 11:02 PM CDT [facility] LABORATORY [facility] BILIRUBIN UA Negative Negative 10/20/2024 11:02 PM CDT [facility] LABORATORY [facility] BLOOD UA Negative Negative 10/20/2024 11:02 PM CDT [facility] Urine URINE SPECIMEN OBTAINED BY CLEAN CATCH PROCEDURE / Unknown Collection / Unknown 10/20/2024 10:32 PM CDT 10/20/2024 10:42 PM CDT Thien Narayan MD URINE ORDERABLES Final Result [facility]# [id number] [address] [place] [address] * XR CHEST PA OR AP 1 VW (10/20/2024 9:34 AM CDT) Anatomical Region Laterality Modality Chest Computed Radiogr aphy 10/20/2024 9:35 AM CDT Impressions 10/20/2024 9:41 AM CDT IMPRESSION: Improved cardiomegaly and pulmonary vascular congestion. No focal airspace opacity. No pneumothorax or effusion. Sclerotic changes in the visualized osseous structures compatible with known sickle cell disease. DICTATION LOCATION: Location 9 - [facility] Narrative 10/20/2024 9:41 AM CDT CHEST, 1 [...] known sickle cell disease. DICTATION LOCATION: Location [address] [place] [address] Hector Rosales MD DIAGNOSTIC IMAGING ORDERABLES Final Result from Last 3 Months Insurance [facility] MEDICAID RX INFOCROSSING Medicaid RX [employer] PLANS (INTERNAL) [facility] Internal Plans Advance Directives For more information, please contact: [phone] * Full Code (Latest Code Status on [...]
--- OUTSIDE RECORDS SUMMARY | 2025-01-19 11:34 | XMS_ITS | CCD ---
Author Name Interface, [address] Address More breakthroughs. More victories. [address] Oncology Address [place] [address] Reason for Visit Social History
--- OUTSIDE RECORDS SUMMARY | 2025-01-19 11:34 | XMS_ITS | CCD ---
Author Name Interface, [address] Address More breakthroughs. More victories. [address] Oncology Address [place] [address] Reason for Visit Social History
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
[2025-01-20 00:40] VITALS: BP 107/62; PULSE 94; RESP 20; TEMP 36.8; O2SAT 94
[2025-01-20] MEDS: HYDROmorphone HCL INJ (*CRX) 1 MG/ML SYR 2 MG IV PUSH ×6 (03:49→22:40)
[2025-01-20 04:30] VITALS: BP 107/61; PULSE 97; RESP 20; TEMP 36.6; O2SAT 94
--- NOTE | 2025-01-20 05:57 | PC.NURSE ---
pt is refusing lab draw this morning 01/20/25. pt states I am dehydrated and the lab sticks me too many times
[2025-01-20 08:00] VITALS: BP 106/68; PULSE 87; RESP 16; TEMP 37; O2SAT 100
[2025-01-20] MEDS: FOLIC ACID 1 MG TABLET PO (09:09)
[2025-01-20 09:45] LABS: Hematocrit 21.4 % (42.0-52.0); Hemoglobin 7.3 g/dL (14.0-18.0); Immature Granulocyte Percent A 0.6 % (0-0.5); Lymphocytes Absolute Auto 3.72 K/mm3 (0.9-3.2); Mean Corpuscular HGB Conc 34.1 g/dl (32-36); Mean Corpuscular Hemoglobin 29.9 pg (26-34); Mean Corpuscular Volume 87.7 fl (80-100); Nucleated Red Blood Cells Absolute Auto 0.090 K/mm3 (0.0-0.012); Nucleated Red Blood Cells Perc 0.8 % (0.0-0.2); Platelet Count Result 324 k/mm3 (150-375); Red Blood Count 2.44 M/mm3 (4.6-6.20); White Blood Count 11.9 K/mm3 (4.5-10.0)
[2025-01-20 10:27] LABS: Hematocrit 21.3 % (42.0-52.0); Hemoglobin 7.3 g/dL (14.0-18.0)
[2025-01-20 10:33] LABS: Alanine Aminotransferase 20 U/L (6-50); Albumin Level 4.0 g/dL (3.5-5.1); Alkaline Phosphatase 241 U/L (38-126); Anion Gap 9 mmol/L (4-12); Aspartate Amino Transferase 59 U/L (17-59); Bilirubin,Total 7.0 mg/dL (0.2-1.3); Calcium 8.4 mg/dL (8.4-10.2); Carbon Dioxide 24 mmol/L (22-30); Chloride 106 mmol/L (98-107); Estimated CRCL calculation 237 ml/min; Estimated Glomerular Filt Rate > 60; Glucose 103 mg/dL (65-110); Iron 165 ug/dL (49-181); Potassium 3.9 mmol/L (3.4-5.0); Sodium 139 mmol/L (137-145); Total Protein 7.8 g/dL (6.3-8.2)
[2025-01-20 10:34] LABS: Percent Iron Saturation 52 % (20-50)
[2025-01-20 10:57] LABS: Ferritin 260.00 ng/mL (17.9-464)
[2025-01-20 11:07] LABS: Blood Urea Nitrogen < 2 mg/dL (9-20)
[2025-01-20] MEDS: SODIUM CHLORIDE 0.9% IV 1,000 ML 150 ML IV CONT ×2 (11:29→19:39)
[2025-01-20] MEDS: HYDROmorphone HCL INJ (*CRX) 2 MG/ML VIAL IV PUSH (11:44)
[2025-01-20 12:00] LABS: Vitamin B12 198.0 pg/mL (239-931)
[2025-01-20 14:30] VITALS: BP 123/74; PULSE 61; RESP 20; TEMP 36.6; O2SAT 94
[2025-01-20 17:47] LABS: Alveolar/Arterial O2 Gradient 31.8 mmHg; Fractional Inspired Oxygen 21 %; HCO3 ABG 26.6 mEq/l (22.0-26.0); Oxygen Content ABG 9.7 %vol (16.0-22.0); Oxygen Saturation ABG 94.5 % (95.0-100.0); PCO2 ABG 40.4 mmHg (35.0-45.0); PO2 ABG 69.6 mmHg (80.0-100.0); PO2 FiO2 Ratio Arterial Blood 3.31 %
[2025-01-20 17:49] LABS: Liters per Minute 0.0 LPM; Modified Allen's Test Pass; Site Drawn RIGHT RADIAL
--- NOTE | 2025-01-20 17:50 | PM.IMPN ---
Progress Note: A&P Assessment and Plan (1) Chest pain: Code(s): R07.9 - Chest pain, unspecified Status: Acute Assessment and Plan: Called by nurse that patient now experiencing worsening chest pain. ABG 7.44/40/70 on room air CXR reviewed personally showing small interstitial and airspace opacities in both lungs. Consider edema vs PNA. He has mild cardiomegaly by CT chest so may have pulmonary edema from underlying heart disease Consider acute chest syndrome which can be rapid. Not on O2 and labs this morning showed improvement. Repeat lab work. Check lactic, PCT. Neuro checks. BCx. COVID, RSV and influenza PCR. Hold on abx. Old chart reviewed showing Echo Mar 2024 with EF 55% and normal diastolic function. Will continue IV fluids at lower rate. (2) Sickle cell pain crisis: Code(s): D57.00 - Hb-SS disease with crisis, unspecified Status: Acute Assessment and Plan: Patient presents to the emergency room with complaints of diffuse pain mostly in his shoulders and hips. Reticulocyte count was elevated. He has schistocytes and elevated bilirubin. Patient uncomfortable at this time and asks to have hydromorphone frequency increased. Chart reviewed showing he is intolerant to hydroxyurea. Resumed IV fluids (see above). Continue Dilaudid p.r.n. for severe pain and increase to Q3h. Percocet available for moderate pain. Benadryl p.r.n. for itching (3) Sickle cell disease: Code(s): D57.1 - Sickle-cell disease without crisis Status: Acute Assessment and Plan: As above. Iron studies noted. B12 level low at 198. Folate normal. Continue folic acid. Replace B12 (4) Positive D-dimer: Code(s): R79.89 - Other specified abnormal findings of blood chemistry Status: Acute Assessment and Plan: Patient with positive D-dimer. [place] related to above. He was hospitalized recently so we considered occult PE CTA of the chest showing no PE or other acute cardiopulmonary disease. (5) Asthma: Code(s): J45.909 - Unspecified asthma, uncomplicated Status: Acute Assessment and Plan: Patient with a history of asthma. He uses albuterol as needed. He also takes Flonase for allergies. Resumed Flonase. Albuterol available as needed. Plan Adrenal insufficiency - Chart review shows patient has adrenal insufficiency and is supposed to take Hydrocortisone 10mg in the morning and 5mg at night. He states he only gets this in the hospital and does not take this at home. Blood pressure is stable. Sodium and potassium are normal. Will hold on resuming this but monitor closely for s/sx of adrenal crisis. DVT Prophylaxis - lovenox Code status - full Subjective Date/time seen: 01/20/25 17:50 Interval history: 29yo male with sickle cell disease, sickle cell anemia, asthma and hx of CVA here for sickle cell pain. Patient with cough productive of yellow-green sputum. Urine is dark. His IV fluids were stopped yesterday due to stop date written on admit orders. Also with intermittent chest pain. Exam Narrative: AF 97.9 123/74 61 20 94% ra Gen - NARD HEENT - Sclera icteric. Chest - CTA bilaterally. CV - RRR. S1-S2. Abd - soft. Nondistended. +BS. mild diffuse tenderness with guarding Ext - no pedal edema. Psych - normal mood and affect. Patient appears uncomfortable Skin - warm and dry. Objective Data Vital Signs Vital Signs: Vital Signs - 24 hr 01/19/25 20:32 01/19/25 21:30 01/19/25 23:03 Temperature 99.6 F Pulse Rate 98 Respiratory Rate 20 Blood Pressure 106/70 Pulse Oximetry 97 99 Oxygen Delivery Room Air Autopap 01/20/25 00:40 01/20/25 04:30 01/20/25 08:00 Temperature 98.3 F 98 F 98.6 F Pulse Rate 94 97 87 Respiratory Rate 20 20 16 Blood Pressure 107/62 107/61 106/68 Pulse Oximetry 94 94 100 Oxygen Delivery 01/20/25 09:09 01/20/25 14:30 Temperature 97.9 F Pulse Rate 61 Respiratory Rate 20 Blood Pressure 123/74 Pulse Oximetry 94 Oxygen Delivery Room Air Intake/Output Intake/Output: Intake & Output 01/17/25 01/18/25 01/19/25 01/20/25 23:59 23:59 23:59 23:59 Intake Total 2360 900 Output Total 0545 Balance 2360 -425 Meds/Results Medications: Active Medications Generic Name Dose Route Start Last Admin Trade Name Freq PRN Reason Stop Dose Admin Acetaminophen 650 mg 01/19/25 16:01 Acetaminophen 325 Mg Tablet PO Q6H PRN Mild Pain (1-3) or Fever Albuterol 2 puff 01/19/25 17:13 Albuterol Sulfate (*Sp) Aerosol 1 Puff INHALATION Q6HRT PRN Shortness Of Breath Diphenhydramine HCl 25 mg 01/19/25 15:54 Diphenhydramine Hcl Cap 25 Mg Capsule PO Q6H PRN Itching Docusate Sodium 100 mg 01/19/25 16:01 Docusate Sodium 100 Mg Capsule PO Q12H PRN Constipation Enoxaparin Sodium 40 mg 01/20/25 09:00 01/20/25 09:14 Enoxaparin 40 Mg/0.4 Ml Syringe SUB-Q Not Given DAILY MICHEAL Folic Acid 1 mg 01/20/25 09:00 01/20/25 09:09 Folic Acid 1 Mg Tablet PO 1 mg DAILY MICHEAL Administration Hydromorphone HCl 2 mg 01/20/25 16:16 01/20/25 16:54 Hydromorphone Hcl Inj (*Crx) 1 Mg/Ml Syr IV PUSH 2 mg Q3H PRN Administration Pain Rated 7-10 Sodium Chloride 1,000 mls @ 150 mls/hr 01/20/25 11:25 01/20/25 11:29 Normal Saline Iv IV CONT 150 mls/hr .Q6H40M MICHEAL Administration Oxycodone/Acetaminophen 1 tablet 01/19/25 15:54 Oxycodone/Acetaminophen (*Crx) 5-325 Mg Tablet PO Q8H PRN Pain Rated 4-6 Sodium Chloride 1 spray 01/20/25 16:16 Saline 0.65% Davey Soln 44 Ml Btl NASAL Q6HR PRN Congestion Radiology Results: ITS Impressions Chest CTA 01/19/25 18:13 IMPRESSION: 1. No pulmonary embolism or other acute cardiopulmonary disease. Sensitivity decreased by the small basilar subsegmental pulmonary arteries due primarily to some respiratory motion. 2. Bone infarcts at the bilateral humeral heads and diffuse sclerosis of the bones with multiple vertebral bodies and small calcified likely chronically infarcted spleen, all consistent with sequela of chronic sickle cell disease. 3. Cardiomegaly. Chest X-Ray 01/20/25 17:41 IMPRESSION: 1: Small interstitial and airspace opacities in both lungs. Differential includes but is not limited to edema or pneumonia. Labs Labs: Laboratory Results - last 24 hr 01/20/25 01/20/25 01/20/25 09:34 09:34 09:34 WBC 11.9 H RBC 2.44 L Hgb 7.3 L 7.3 L Hct 21.3 L 21.4 L MCV 87.7 MCH 29.9 MCHC 34.1 RDW 21.7 H Plt Count 324 MPV 10.1 Immature Gran % (Auto) 0.6 H Neut % (Auto) 53.1 Lymph % (Auto) 31.2 [place] % (Auto) 11.5 H Eos % (Auto) 3.0 Baso % (Auto) 0.6 Lymph # (Auto) 3.72 H [place] # (Auto) 1.4 H Eos # (Auto) 0.4 H Baso # (Auto) 0.1 Abs Immat Gran (auto) 0.07 H Absolute Neuts (auto) 6.4 Absolute Nucleated RBC 0.090 H Nucleated RBC % 0.8 H Hemoglobin A % Cancelled Hemoglobin A2 Quant Cancelled Hemoglobin C % Cancelled Hemoglobin E % Cancelled Hemoglobin F Percent Cancelled Hemoglobin S % Cancelled Hemoglobinopathy Red Blood Count Cancelled Hemoglobinopathy Hct Cancelled Hemoglobinopathy Hgb Cancelled Hemoglobinopathy MCV Cancelled Hemoglobinopathy MCH Cancelled Hemoglobinopathy RDW Cancelled Hemoglobinopathy Interp Cancelled Puncture Site ABG pH ABG pCO2 ABG pO2 ABG PO2/FiO2 Ratio ABG HCO3 ABG O2 Saturation ABG O2 Content ABG Base Excess A-a Gradient Oxyhemoglobin Hemoglobin Other Cancelled Hemoglobin Other 2 Cancelled Total Hemoglobin O2 Delivery Device O2 Liters/Min FiO2 Sodium 139 Potassium 3.9 Chloride 106 Carbon Dioxide 24 Anion Gap 9 BUN < 2 L Creatinine 0.47 L Estim Creat Clear Calc 237 Estimated GFR > 60 Glucose 103 Calcium 8.4 Iron 165 TIBC 318 % Saturation 52 H Ferritin 260.00 Total Bilirubin 7.0 H Indirect Bilirubin 6.1 H AST 59 ALT 20 Alkaline Phosphatase 241 H Total Protein 7.8 Albumin 4.0 Vitamin B12 198.0 L Folate 19.8 01/20/25 17:23 WBC RBC Hgb Hct MCV MCH MCHC RDW Plt Count MPV Immature Gran % (Auto) Neut % (Auto) Lymph % (Auto) [place] % (Auto) Eos % (Auto) Baso % (Auto) Lymph # (Auto) [place] # (Auto) Eos # (Auto) Baso # (Auto) Abs Immat Gran (auto) Absolute Neuts (auto) Absolute Nucleated RBC Nucleated RBC % Hemoglobin A % Hemoglobin A2 Quant Hemoglobin C % Hemoglobin E % Hemoglobin F Percent Hemoglobin S % Hemoglobinopathy Red Blood Count Hemoglobinopathy Hct Hemoglobinopathy Hgb Hemoglobinopathy MCV Hemoglobinopathy MCH Hemoglobinopathy RDW Hemoglobinopathy Interp Puncture Site Right radial ABG pH 7.436 ABG pCO2 40.4 ABG pO2 69.6 L ABG PO2/FiO2 Ratio 3.31 ABG HCO3 26.6 H ABG O2 Saturation 94.5 L ABG O2 Content 9.7 L ABG Base Excess 2.2 A-a Gradient 31.8 Oxyhemoglobin 86.1 L* Hemoglobin Other Hemoglobin Other 2 Total Hemoglobin 7.9 L O2 Delivery Device Room air O2 Liters/Min 0.0 FiO2 21 Sodium Potassium Chloride Carbon Dioxide Anion Gap BUN Creatinine Estim Creat Clear Calc Estimated GFR Glucose Calcium Iron TIBC % Saturation Ferritin Total Bilirubin Indirect Bilirubin AST ALT Alkaline Phosphatase Total Protein Albumin Vitamin B12 Folate
[2025-01-20 20:47] LABS: Influenza A QL RT-PCR Negative (Negative); Influenza B QL RT-PCR Negative (Negative); RSV RNA, RT-PCR Negative (Negative); SARS-CoV-2 RNA PCR Negative (Negative)
[2025-01-20 22:00] VITALS: BP 104/56; PULSE 100; RESP 17; TEMP 36.7; O2SAT 96
[2025-01-21] MEDS: HYDROmorphone HCL INJ (*CRX) 1 MG/ML SYR 2 MG IV PUSH ×8 (01:19→22:45)
[2025-01-21 06:00] VITALS: BP 110/72; PULSE 97; RESP 18; TEMP 36.1; O2SAT 95
--- NOTE | 2025-01-21 07:53 | PC.NURSE ---
Elijah, IV oil inspector, at bedside assessing IV access and drawing blood for labs.
[2025-01-21] MEDS: SODIUM CHLORIDE 0.9% IV 1,000 ML 150 ML IV CONT (08:02)
[2025-01-21] MEDS: FOLIC ACID 1 MG TABLET PO (08:12)
[2025-01-21 08:15] LABS: Hematocrit 22.4 % (42.0-52.0); Hemoglobin 7.6 g/dL (14.0-18.0); Immature Granulocyte Percent A 0.6 % (0-0.5); Lymphocytes Absolute Auto 4.34 K/mm3 (0.9-3.2); Mean Corpuscular HGB Conc 33.9 g/dl (32-36); Mean Corpuscular Hemoglobin 30.0 pg (26-34); Mean Corpuscular Volume 88.5 fl (80-100); Nucleated Red Blood Cells Absolute Auto 0.180 K/mm3 (0.0-0.012); Nucleated Red Blood Cells Perc 1.5 % (0.0-0.2); Platelet Count Result 339 k/mm3 (150-375); Red Blood Count 2.53 M/mm3 (4.6-6.20); White Blood Count 12.2 K/mm3 (4.5-10.0)
[2025-01-21 08:40] LABS: Anisocytosis 2+; Hypochromasia 2+; Poikilocytosis 1+; Polychromasia 1+; Sickle Cells 2+; Target Cells 2+
[2025-01-21 08:41] LABS: Acanthocytes 1+; Schistocytes 1+
[2025-01-21 09:36] LABS: Alanine Aminotransferase 17 U/L (6-50); Albumin Level 3.8 g/dL (3.5-5.1); Alkaline Phosphatase 227 U/L (38-126); Anion Gap 7 mmol/L (4-12); Aspartate Amino Transferase 54 U/L (17-59); Bilirubin,Total 6.7 mg/dL (0.2-1.3); Blood Urea Nitrogen 2 mg/dL (9-20); Calcium 8.4 mg/dL (8.4-10.2); Carbon Dioxide 27 mmol/L (22-30); Chloride 104 mmol/L (98-107); Estimated CRCL calculation 251 ml/min; Estimated Glomerular Filt Rate > 60; Glucose 97 mg/dL (65-110); Potassium 3.8 mmol/L (3.4-5.0); Sodium 138 mmol/L (137-145); Total Protein 7.5 g/dL (6.3-8.2)
[2025-01-21 09:48] LABS: Troponin I < 0.012 ng/mL (0.000-0.034)
[2025-01-21 10:07] LABS: Thyroid Stimulating Hormone Reflex 3.200 uIU/mL (0.465-4.68)
[2025-01-21] MEDS: SALINE 0.65% NAS SOLN 44 ML BTL 1 SPRAY NASAL (10:07)
--- NOTE | 2025-01-21 11:00 | PC.NURSE ---
Patient is refusing IV fluids, fluids are on hold.
--- NOTE | 2025-01-21 13:29 | P.PNIM_ITS ---
Progress Note: A&P Assessment and Plan (1) Chest pain: Code(s): R07.9 - Chest pain, unspecified Status: Acute Assessment and Plan: Called by nurse that patient was experiencing worsening chest pain on 01/20. ABG 7.44/40/70 on room air. CXR showing small interstitial and airspace opacities in both lungs. Consider edema vs PNA. He has mild cardiomegaly by CT chest so may have pulmonary edema from underlying heart disease but Echo Mar 2024 with EF 55% and normal diastolic function. Consider acute chest syndrome which can be rapid but no neuro changes and labs remaining stable. Not on O2 this morning. Influ mario, RSV and COVID PCR negative. Still with chest pain but appears more related to his overall sickle cell pain. Follow for now. (2) Sickle cell pain crisis: Code(s): D57.00 - Hb-SS disease with crisis, unspecified Status: Acute Assessment and Plan: Patient presents to the emergency room with complaints of diffuse pain mostly in his shoulders and hips. Reticulocyte count is elevated. He has schistocytes and elevated bilirubin. Unclear why patient did not seek care at 1 of the major hospitals in [place] where he lives. Obtained some old records and these were reviewed. Echo as above. Electrophoresis pending. Patient appears comfortable today. Patient refusing IV fluids so will stop. Continue Dilaudid p.r.n. for severe pain and Percocet Q8hr for moderate pain. Benadryl p.r.n. for itching per patient request (3) Sickle cell disease: Code(s): D57.1 - Sickle-cell disease without crisis Status: Acute Assessment and Plan: As above. Iron studies noted. B12 level low at 198. Folate normal. Continue folic acid. Replace B12 Unable to tolerate hydroxyurea (4) Positive D-dimer: Code(s): R79.89 - Other specified abnormal findings of blood chemistry Status: Acute Assessment and Plan: Patient with positive D-dimer. [place] related to above. He was hospitalized recently so we considered occult PE CTA of the chest showing no PE or other acute cardiopulmonary disease. (5) Asthma: Code(s): J45.909 - Unspecified asthma, uncomplicated Status: Acute Assessment and Plan: Patient with a history of asthma. He uses albuterol as needed. He also takes Flonase for allergies. Resumed Flonase. Albuterol available as needed. Plan Adrenal insufficiency - Chart review shows patient has adrenal insufficiency and is supposed to take Hydrocortisone 10mg in the morning and 5mg at night. He states he only gets this in the hospital and does not take this at home. Blood pressure is stable. Sodium and potassium are normal. Morning Cortisol 7.9. Will hold on resuming hydrocortisone and monitor closely for s/sx of adrenal crisis. DVT Prophylaxis - lovenox Code status - full Subjective Date/time seen: 01/21/25 13:29 Interval history: 29yo male with sickle cell disease, sickle cell anemia, asthma and hx of CVA here for sickle cell pain. Urine clearer. Chest pain persistent but felt to be part of his overall sickle pain. Appetite decreased. He has been refusing care at times and turns off his fluids because he is voiding too much Exam Narrative: AF 97.0 110/72 97 18 95% ra Gen - NARD Chest - CTA bilaterally. CV - RRR. S1-S2. Abd - soft. Nondistended. +BS. less tenderness Ext - no pedal edema. Psych - normal mood and affect. Patient in better spirits and smiles occasionally Skin - warm and dry. Objective Data Vital Signs Vital Signs: Vital Signs - 24 hr 01/20/25 14:30 01/20/25 20:10 01/20/25 22:00 Temperature 97.9 F 98.1 F Pulse Rate 61 100 Respiratory Rate 20 17 Blood Pressure 123/74 104/56 L Pulse Oximetry 94 96 Oxygen Delivery Room Air 01/21/25 06:00 01/21/25 08:00 Temperature 97 F L Pulse Rate 97 Respiratory Rate 18 Blood Pressure 110/72 Pulse Oximetry 95 Oxygen Delivery Room Air Intake/Output Intake/Output: Intake & Output 01/18/25 01/19/25 01/20/25 01/21/25 23:59 23:59 23:59 23:59 Intake Total 8754 1903 2144 Output Total 4428 9179 Balance 3381 -000 -772 Meds/Results Medications: Active Medications Generic Name Dose Route Start Last Admin Trade Name Freq PRN Reason Stop Dose Admin Acetaminophen 650 mg 01/19/25 16:01 Acetaminophen 325 Mg Tablet PO Q6H PRN Mild Pain (1-3) or Fever Albuterol 2 puff 01/19/25 17:13 Albuterol Sulfate (*Sp) Aerosol 1 Puff INHALATION Q6HRT PRN Shortness Of Breath Cyanocobalamin 1,000 mcg 01/21/25 09:00 01/21/25 08:13 Cyanocobalamin Inj 1,000 Mcg/Ml Vial IM 01/23/25 09:01 Not Given DAILY MICHEAL Diphenhydramine HCl 25 mg 01/19/25 15:54 Diphenhydramine Hcl Cap 25 Mg Capsule PO Q6H PRN Itching Docusate Sodium 100 mg 01/19/25 16:01 Docusate Sodium 100 Mg Capsule PO Q12H PRN Constipation Enoxaparin Sodium 40 mg 01/20/25 09:00 01/21/25 08:12 Enoxaparin 40 Mg/0.4 Ml Syringe SUB-Q Not Given DAILY MICHEAL Folic Acid 1 mg 01/20/25 09:00 01/21/25 08:12 Folic Acid 1 Mg Tablet PO 1 mg DAILY MICHEAL Administration Hydromorphone HCl 2 mg 01/20/25 16:16 01/21/25 11:03 Hydromorphone Hcl Inj (*Crx) 1 Mg/Ml Syr IV PUSH 2 mg Q3H PRN Administration Pain Rated 7-10 Sodium Chloride 1,000 mls @ 100 mls/hr 01/20/25 11:25 01/21/25 08:09 Normal Saline Iv IV CONT Not Given .Q10H MICHEAL Oxycodone/Acetaminophen 1 tablet 01/19/25 15:54 Oxycodone/Acetaminophen (*Crx) 5-325 Mg Tablet PO Q8H PRN Pain Rated 4-6 Sodium Chloride 1 spray 01/20/25 16:16 01/21/25 10:07 Saline 0.65% Davey Soln 44 Ml Btl NASAL 1 spray Q6HR PRN Administration Congestion Radiology Results: ITS Impressions Chest CTA 01/19/25 18:13 IMPRESSION: 1. No pulmonary embolism or other acute cardiopulmonary disease. Sensitivity decreased by the small basilar subsegmental pulmonary arteries due primarily to some respiratory motion. 2. Bone infarcts at the bilateral humeral heads and diffuse sclerosis of the bones with multiple vertebral bodies and small calcified likely chronically infarcted spleen, all consistent with sequela of chronic sickle cell disease. 3. Cardiomegaly. Chest X-Ray 01/20/25 17:41 IMPRESSION: 1: Small interstitial and airspace opacities in both lungs. Differential includes but is not limited to edema or pneumonia. Labs Labs: Laboratory Results - last 24 hr 01/20/25 01/20/25 01/21/25 17:23 19:57 08:04 WBC 12.2 H RBC 2.53 L Hgb 7.6 L Hct 22.4 L MCV 88.5 MCH 30.0 MCHC 33.9 RDW 22.9 H Plt Count 339 MPV 9.9 Immature Gran % (Auto) 0.6 H Neut % (Auto) 50.6 Lymph % (Auto) 35.7 [place] % (Auto) 10.0 H Eos % (Auto) 2.7 Baso % (Auto) 0.4 Lymph # (Auto) 4.34 H [place] # (Auto) 1.2 H Eos # (Auto) 0.3 Baso # (Auto) 0.1 Abs Immat Gran (auto) 0.07 H Absolute Neuts (auto) 6.1 Absolute Nucleated RBC 0.180 H Band Neutrophils % Not Reportable Nucleated RBC % 1.5 H Platelet Estimate Adequate Large Platelets Present Polychromasia 1+ Hypochromasia 2+ Poikilocytosis 1+ Anisocytosis 2+ Sickle Cells 2+ Target Cells 2+ [place] Bodies 1+ Acanthocytes (Spur) 1+ Schistocytes 1+ Puncture Site Right radial ABG pH 7.436 ABG pCO2 40.4 ABG pO2 69.6 L ABG PO2/FiO2 Ratio 3.31 ABG HCO3 26.6 H ABG O2 Saturation 94.5 L ABG O2 Content 9.7 L ABG Base Excess 2.2 A-a Gradient 31.8 Oxyhemoglobin 86.1 L* Total Hemoglobin 7.9 L O2 Delivery Device Room air O2 Liters/Min 0.0 FiO2 21 Sodium 138 Potassium 3.8 Chloride 104 Carbon Dioxide 27 Anion Gap 7 BUN 2 L Creatinine 0.44 L Estim Creat Clear Calc 251 Estimated GFR > 60 Glucose 97 Calcium 8.4 Total Bilirubin 6.7 H AST 54 ALT 17 Alkaline Phosphatase 227 H Troponin I < 0.012 Total Protein 7.5 Albumin 3.8 TSH (Reflex) 3.200 Random Cortisol 7.89 Influenza A (RT-PCR) Negative Influenza B (RT-PCR) Negative RSV (RT-PCR) Negative SARS-CoV-2 RNA (RT-PCR) Negative
[2025-01-21 14:00] VITALS: BP 119/69; PULSE 91; RESP 18; TEMP 37.1; O2SAT 100
[2025-01-21] MEDS: CYANOCOBALAMIN INJ 1,000 MCG/ML VIAL 1000 MCG IM (17:00)
[2025-01-21 22:00] VITALS: BP 134/79; PULSE 78; RESP 20; TEMP 36.8; O2SAT 96
[2025-01-22] MEDS: HYDROmorphone HCL INJ (*CRX) 1 MG/ML SYR 2 MG IV PUSH ×8 (01:23→22:27)
[2025-01-22 06:00] VITALS: BP 103/68; PULSE 88; RESP 16; TEMP 36.3; O2SAT 96
[2025-01-22 07:28] LABS: Hematocrit 23.2 % (42.0-52.0); Hemoglobin 7.9 g/dL (14.0-18.0); Immature Granulocyte Percent A 0.2 % (0-0.5); Lymphocytes Absolute Auto 4.05 K/mm3 (0.9-3.2); Mean Corpuscular HGB Conc 34.1 g/dl (32-36); Mean Corpuscular Hemoglobin 30.7 pg (26-34); Mean Corpuscular Volume 90.3 fl (80-100); Nucleated Red Blood Cells Absolute Auto 0.170 K/mm3 (0.0-0.012); Nucleated Red Blood Cells Perc 1.8 % (0.0-0.2); Platelet Count Result 305 k/mm3 (150-375); Red Blood Count 2.57 M/mm3 (4.6-6.20); White Blood Count 9.7 K/mm3 (4.5-10.0)
[2025-01-22] MEDS: FOLIC ACID 1 MG TABLET PO (07:37)
[2025-01-22 07:49] LABS: Anisocytosis 2+; Hypochromasia 2+; Poikilocytosis 2+; Polychromasia Occasional; Sickle Cells 2+
[2025-01-22 07:51] LABS: Crenated RBC Occasional; Ovalocytes 1+; Schistocytes Occasional
[2025-01-22 07:52] LABS: Alanine Aminotransferase 18 U/L (6-50); Albumin Level 3.8 g/dL (3.5-5.1); Alkaline Phosphatase 213 U/L (38-126); Anion Gap 7 mmol/L (4-12); Aspartate Amino Transferase 48 U/L (17-59); Bilirubin,Total 6.3 mg/dL (0.2-1.3); Calcium 8.5 mg/dL (8.4-10.2); Carbon Dioxide 27 mmol/L (22-30); Chloride 103 mmol/L (98-107); Estimated CRCL calculation 246 ml/min; Estimated Glomerular Filt Rate > 60; Glucose 114 mg/dL (65-110); Potassium 3.3 mmol/L (3.4-5.0); Sodium 137 mmol/L (137-145); Target Cells 2+; Total Protein 7.6 g/dL (6.3-8.2)
[2025-01-22 08:40] LABS: Blood Urea Nitrogen < 2 mg/dL (9-20)
[2025-01-22] MEDS: POTASSIUM CHLORIDE 20 MEQ ER TABLET 40 MEQ PO (08:58)
[2025-01-22] MEDS: CYANOCOBALAMIN 1,000 MCG TABLET 1000 MCG PO (08:58)
[2025-01-22] MEDS: CYANOCOBALAMIN INJ 1,000 MCG/ML VIAL 1000 MCG IM (12:20)
[2025-01-22 13:51] VITALS: BP 104/53; PULSE 79; RESP 16; TEMP 36.4; O2SAT 96
--- NOTE | 2025-01-22 14:37 | PM.IMPN ---
Progress Note: A&P Assessment and Plan (1) Chest pain: Code(s): R07.9 - Chest pain, unspecified Status: Acute Assessment and Plan: Called by nurse that patient was experiencing worsening chest pain on 01/20. ABG 7.44/40/70 on room air. CXR showing small interstitial and airspace opacities in both lungs. Consider edema vs PNA. Echo Mar 2024 with EF 55% and normal diastolic function. Influenza, RSV and COVID PCR negative. Persistent CP but no neuro changes and labs stable. WBC normal. Not on O2. Repeat CXR. Stop neurochecks. Follow (2) Sickle cell pain crisis: Code(s): D57.00 - Hb-SS disease with crisis, unspecified Status: Acute Assessment and Plan: Patient presents to the emergency room with complaints of diffuse pain mostly in his shoulders and hips. Reticulocyte count is elevated. He has schistocytes and elevated bilirubin. Unclear why patient did not seek care at 1 of the major hospitals in [place] where he lives. Obtained some old records and these were reviewed. Echo as above. Electrophoresis pending. Patient now states he just stops the IV fluids at times due to frequent urination but did not refuse them. Continue Dilaudid p.r.n. for severe pain and Percocet Q8hr for moderate pain. Benadryl p.r.n. for itching per patient request Resume IV fluids at lower rate. (3) Sickle cell disease: Code(s): D57.1 - Sickle-cell disease without crisis Status: Acute Assessment and Plan: As above. Iron studies noted. B12 level low at 198. Folate normal. Continue folic acid. B12 IM ordered x3 days. Add oral B12. Unable to tolerate hydroxyurea (4) Positive D-dimer: Code(s): R79.89 - Other specified abnormal findings of blood chemistry Status: Acute Assessment and Plan: Patient with positive D-dimer. [place] related to above. He was hospitalized recently so we considered occult PE CTA of the chest showing no PE or other acute cardiopulmonary disease. Check LE venous doppler (5) Asthma: Code(s): J45.909 - Unspecified asthma, uncomplicated Status: Acute Assessment and Plan: Patient with a history of asthma. He uses albuterol as needed. He also takes Flonase for allergies. Resumed Flonase. Albuterol available as needed. Plan Adrenal insufficiency - Chart review shows patient has adrenal insufficiency and is supposed to take Hydrocortisone. He states he only gets this in the hospital and does not take this at home. Blood pressure is stable. Sodium and potassium are WNL. Morning Cortisol 7.9. Will hold on resuming hydrocortisone and monitor closely for s/sx of adrenal crisis. DVT Prophylaxis - refusing lovenox; risks of refusing this were explained in detail and he voices understanding. Check doppler. Add SCDs. Code status - full Subjective Date/time seen: 01/22/25 14:37 Interval history: 29yo male with sickle cell disease, sickle cell anemia, asthma and hx of CVA here for sickle cell pain. Slept in/out. Still with chest pain off and on. Walking in room. Eating better. He refusing care at times. Exam Narrative: AF 97.5 104/53 79 16 96% ra Gen - NARD Chest - CTA bilaterally. CV - RRR. S1-S2. Abd - soft. Nondistended. +BS. diffuse tenderness with guarding Ext - no pedal edema. Psych - depressed mood Skin - warm and dry. Objective Data Vital Signs Vital Signs: Vital Signs - 24 hr 01/21/25 22:00 01/22/25 06:00 01/22/25 07:30 Temperature 98.3 F 97.3 F L Pulse Rate 78 88 Respiratory Rate 20 16 Blood Pressure 134/79 103/68 Pulse Oximetry 96 96 Oxygen Delivery Room Air 01/22/25 13:51 Temperature 97.5 F L Pulse Rate 79 Respiratory Rate 16 Blood Pressure 104/53 L Pulse Oximetry 96 Oxygen Delivery Intake/Output Intake/Output: Intake & Output 01/19/25 01/20/25 01/21/25 01/22/25 23:59 23:59 23:59 23:59 Intake Total 2360 1900 3721 2142 Output Total 9043 3825 1850 Balance 9440 -525 104 292 Meds/Results Medications: Active Medications Generic Name Dose Route Start Last Admin Trade Name Freq PRN Reason Stop Dose Admin Acetaminophen 650 mg 01/19/25 16:01 Acetaminophen 325 Mg Tablet PO Q6H PRN Mild Pain (1-3) or Fever Albuterol 2 puff 01/19/25 17:13 Albuterol Sulfate (*Sp) Aerosol 1 Puff INHALATION Q6HRT PRN Shortness Of Breath Cyanocobalamin 1,000 mcg 01/21/25 09:00 01/22/25 12:20 Cyanocobalamin Inj 1,000 Mcg/Ml Vial IM 01/23/25 09:01 1,000 mcg DAILY MICHEAL Administration Cyanocobalamin 1,000 mcg 01/22/25 09:00 01/22/25 08:58 Cyanocobalamin 1,000 Mcg Tablet PO 1,000 mcg QAM MICHEAL Administration Diphenhydramine HCl 25 mg 01/19/25 15:54 Diphenhydramine Hcl Cap 25 Mg Capsule PO Q6H PRN Itching Docusate Sodium 100 mg 01/19/25 16:01 Docusate Sodium 100 Mg Capsule PO Q12H PRN Constipation Enoxaparin Sodium 40 mg 01/20/25 09:00 01/22/25 08:58 Enoxaparin 40 Mg/0.4 Ml Syringe SUB-Q Not Given DAILY MICHEAL Folic Acid 1 mg 01/20/25 09:00 01/22/25 07:37 Folic Acid 1 Mg Tablet PO 1 mg DAILY MICHEAL Administration Hydromorphone HCl 2 mg 01/20/25 16:16 01/22/25 13:55 Hydromorphone Hcl Inj (*Crx) 1 Mg/Ml Syr IV PUSH 2 mg Q3H PRN Administration Pain Rated 7-10 Oxycodone/Acetaminophen 1 tablet 01/19/25 15:54 Oxycodone/Acetaminophen (*Crx) 5-325 Mg Tablet PO Q8H PRN Pain Rated 4-6 Sodium Chloride 1 spray 01/20/25 16:16 01/21/25 10:07 Saline 0.65% Davey Soln 44 Ml Btl NASAL 1 spray Q6HR PRN Administration Congestion Radiology Results: ITS Impressions Chest CTA 01/19/25 18:13 IMPRESSION: 1. No pulmonary embolism or other acute cardiopulmonary disease. Sensitivity decreased by the small basilar subsegmental pulmonary arteries due primarily to some respiratory motion. 2. Bone infarcts at the bilateral humeral heads and diffuse sclerosis of the bones with multiple vertebral bodies and small calcified likely chronically infarcted spleen, all consistent with sequela of chronic sickle cell disease. 3. Cardiomegaly. Chest X-Ray 01/20/25 17:41 IMPRESSION: 1: Small interstitial and airspace opacities in both lungs. Differential includes but is not limited to edema or pneumonia. Labs Labs: Laboratory Results - last 24 hr 01/20/25 01/22/25 09:29 07:13 WBC 9.7 RBC 2.57 L Hgb 7.9 L Hct 23.2 L MCV 90.3 MCH 30.7 MCHC 34.1 RDW 23.7 H Plt Count 305 MPV 9.8 Immature Gran % (Auto) 0.2 Neut % (Auto) 44.5 L Lymph % (Auto) 41.8 [place] % (Auto) 10.0 H Eos % (Auto) 3.0 Baso % (Auto) 0.5 Lymph # (Auto) 4.05 H [place] # (Auto) 1.0 H Eos # (Auto) 0.3 Baso # (Auto) 0.1 Abs Immat Gran (auto) 0.02 Absolute Neuts (auto) 4.3 Absolute Nucleated RBC 0.170 H Band Neutrophils % Not Reportable Nucleated RBC % 1.8 H Platelet Estimate Adequate Clumped Platelets Present Polychromasia Occasional Hypochromasia 2+ Poikilocytosis 2+ Anisocytosis 2+ Sickle Cells 2+ Target Cells 2+ Ovalocytes 1+ Crenated Cell Occasional Schistocytes Occasional Sodium 137 Potassium 3.3 L Chloride 103 Carbon Dioxide 27 Anion Gap 7 BUN < 2 L Creatinine 0.45 L Estim Creat Clear Calc 246 Estimated GFR > 60 Glucose 114 H Calcium 8.5 Total Bilirubin 6.3 H AST 48 ALT 18 Alkaline Phosphatase 213 H Total Protein 7.6 Albumin 3.8 Miscellaneous Test Comment
[2025-01-22] MEDS: SODIUM CHLORIDE 0.9% IV 1,000 ML 70 ML IV CONT (15:09)
[2025-01-22 20:03] VITALS: BP 119/67; PULSE 74; RESP 18; TEMP 36.3; O2SAT 96
[2025-01-22] MEDS: KETOROLAC 15 MG/ML VIAL (*BKC) IV PUSH (20:50)
[2025-01-23] MEDS: HYDROmorphone HCL INJ (*CRX) 1 MG/ML SYR 2 MG IV PUSH ×9 (01:03→23:25)
[2025-01-23] MEDS: KETOROLAC 15 MG/ML VIAL (*BKC) IV PUSH ×2 (03:35→09:08)
[2025-01-23] MEDS: SODIUM CHLORIDE 0.9% IV 1,000 ML 70 ML IV CONT (05:00)
[2025-01-23 05:55] VITALS: BP 118/52; PULSE 76; RESP 17; TEMP 35.9; O2SAT 97
[2025-01-23 08:32] LABS: Hematocrit 23.3 % (42.0-52.0); Hemoglobin 7.5 g/dL (14.0-18.0); Immature Platelet Fraction Pct 5.3 % (0.9-11.2); Mean Corpuscular HGB Conc 32.2 g/dl (32-36); Mean Corpuscular Hemoglobin 30.6 pg (26-34); Mean Corpuscular Volume 95.1 fl (80-100); Platelet Count Result 81 k/mm3 (150-375); Red Blood Count 2.45 M/mm3 (4.6-6.20); White Blood Count 9.1 K/mm3 (4.5-10.0)
[2025-01-23 08:41] LABS: Anion Gap 6 mmol/L (4-12); Calcium 8.4 mg/dL (8.4-10.2); Carbon Dioxide 25 mmol/L (22-30); Chloride 106 mmol/L (98-107); Estimated CRCL calculation 220 ml/min; Estimated Glomerular Filt Rate > 60; Glucose 98 mg/dL (65-110); Magnesium 2.2 mg/dL (1.6-2.3); Potassium 3.9 mmol/L (3.4-5.0); Sodium 137 mmol/L (137-145)
[2025-01-23 08:42] LABS: Blood Urea Nitrogen < 2 mg/dL (9-20)
[2025-01-23] MEDS: CYANOCOBALAMIN INJ 1,000 MCG/ML VIAL 1000 MCG IM (09:08)
[2025-01-23] MEDS: FOLIC ACID 1 MG TABLET PO (09:08)
[2025-01-23] MEDS: CYANOCOBALAMIN 1,000 MCG TABLET 1000 MCG PO (09:08)
[2025-01-23 11:04] LABS: Platelet Count Result 238 k/mm3 (150-375)
--- NOTE | 2025-01-23 11:50 | PM.IMPN ---
Progress Note: A&P Assessment and Plan (1) Chest pain: Code(s): R07.9 - Chest pain, unspecified Status: Acute Assessment and Plan: Called by nurse that patient was experiencing worsening chest pain on 01/20. ABG 7.44/40/70 on room air. CXR showing small interstitial and airspace opacities in both lungs. Consider edema vs PNA. Echo Mar 2024 with EF 55% and normal diastolic function. Influenza, RSV and COVID PCR negative. Persistent CP essentially since admission without RADHA, neuro changes, fevers or other concern findings. Repeat CXR clear. Remains off oxygen. [place] chest pain not acute chest syndrome. Follow (2) Sickle cell pain crisis: Code(s): D57.00 - Hb-SS disease with crisis, unspecified Status: Acute Assessment and Plan: Patient presents to the emergency room with complaints of diffuse pain mostly in his shoulders and hips. Reticulocyte count is elevated. He has schistocytes and elevated bilirubin. Unclear why patient did not seek care at 1 of the major hospitals in [place] where he lives. Obtained some old records and these were reviewed. Echo as above. Electrophoresis showing Hgb F 5%, Hgb A 30%, Hgb A2 3%, Hgb S 61% IV fluids resumed but patient appears to stop IV fluids at times Continue Dilaudid p.r.n. for severe pain and Percocet Q8hr for moderate pain. Benadryl and Toradol scheduled added. Hopefully home tomorrow (3) Sickle cell disease: Code(s): D57.1 - Sickle-cell disease without crisis Status: Acute Assessment and Plan: As above. Iron studies noted. B12 level low at 198. Folate normal. Continue folic acid. B12 IM ordered x3 days. Continue oral B12. Unable to tolerate hydroxyurea (4) Positive D-dimer: Code(s): R79.89 - Other specified abnormal findings of blood chemistry Status: Acute Assessment and Plan: Patient with positive D-dimer. [place] related to above. He was hospitalized recently so we considered occult PE CTA of the chest showing no PE or other acute cardiopulmonary disease. BLE venous doppler negative for DVT Monitor (5) Asthma: Code(s): J45.909 - Unspecified asthma, uncomplicated Status: Acute Assessment and Plan: Patient with a history of asthma. He uses albuterol as needed. He also takes Flonase for allergies. Resumed Flonase. Albuterol available as needed. Plan Adrenal insufficiency - Chart review shows patient has adrenal insufficiency and is supposed to take Hydrocortisone. He states he only gets this in the hospital and does not take this at home. Blood pressure is stable. Sodium and potassium are WNL. Morning Cortisol 7.9. Will hold on resuming hydrocortisone and monitor closely for s/sx of adrenal crisis. DVT Prophylaxis - patient was refusing lovenox; he understood the risks of doing so. Plt count was low but felt to be false test. Repeat plt count normal. Continue SCDs. Code status - full Subjective Date/time seen: 01/23/25 11:50 Interval history: 29yo male with sickle cell disease, sickle cell anemia, asthma and hx of CVA here for sickle cell pain. Toradol and benadryl IV ordered overnight and scheduled. Toradol helped 'a little'. Pain now 9-9.5/10. Urine still very dark. Holding fluids at times. poor appetite. Still with chest pain lasting hours described as sharp and achy. Walking in halls yesterday. Exam Narrative: AF 96.6 118/52 76 17 97% ra Gen - NARD Chest - CTA bilaterally. CV - RRR. S1-S2. Abd - soft. diffuse tenderness with guarding Ext - no pedal edema. Psych - more animated today. Skin - warm and dry. Objective Data Vital Signs Vital Signs: Vital Signs - 24 hr 01/22/25 13:51 01/22/25 20:03 01/23/25 05:55 Temperature 97.5 F L 97.3 F L 96.6 F L Pulse Rate 79 74 76 Respiratory Rate 16 18 17 Blood Pressure 104/53 L 119/67 118/52 L Pulse Oximetry 96 96 97 Oxygen Delivery 01/23/25 09:00 Temperature Pulse Rate Respiratory Rate Blood Pressure Pulse Oximetry Oxygen Delivery Room Air Intake/Output Intake/Output: Intake & Output 01/20/25 01/21/25 01/22/25 01/23/25 23:59 23:59 23:59 23:59 Intake Total 1900 3721 3822 1407.8 Output Total 2625 3825 2350 900 Balance -725 -104 1472 507.8 Meds/Results Medications: Active Medications Generic Name Dose Route Start Last Admin Trade Name Freq PRN Reason Stop Dose Admin Acetaminophen 650 mg 01/19/25 16:01 Acetaminophen 325 Mg Tablet PO Q6H PRN Mild Pain (1-3) or Fever Albuterol 2 puff 01/19/25 17:13 Albuterol Sulfate (*Sp) Aerosol 1 Puff INHALATION Q6HRT PRN Shortness Of Breath Cyanocobalamin 1,000 mcg 01/22/25 09:00 01/23/25 09:08 Cyanocobalamin 1,000 Mcg Tablet PO 1,000 mcg QAM MICHEAL Administration Diphenhydramine HCl 25 mg 01/19/25 15:54 Diphenhydramine Hcl Cap 25 Mg Capsule PO Q6H PRN Itching Diphenhydramine HCl 25 mg 01/23/25 01:00 01/23/25 09:08 Diphenhydramine Hcl Inj 50 Mg/Ml Vial IV PUSH 25 mg Q4H MICHEAL Administration Docusate Sodium 100 mg 01/19/25 16:01 Docusate Sodium 100 Mg Capsule PO Q12H PRN Constipation Enoxaparin Sodium 40 mg 01/20/25 09:00 01/23/25 10:33 Enoxaparin 40 Mg/0.4 Ml Syringe SUB-Q Not Given DAILY MICHEAL Folic Acid 1 mg 01/20/25 09:00 01/23/25 09:08 Folic Acid 1 Mg Tablet PO 1 mg DAILY MICHAEL Administration Hydromorphone HCl 2 mg 01/20/25 16:16 01/23/25 09:09 Hydromorphone Hcl Inj (*Crx) 1 Mg/Ml Syr IV PUSH 2 mg Q3H PRN Administration Pain Rated 7-10 Sodium Chloride 1,000 mls @ 70 mls/hr 01/22/25 14:40 01/23/25 05:00 Normal Saline Iv IV CONT 70 mls/hr .[id number] MICHEAL Administration Ketorolac Tromethamine 15 mg 01/22/25 21:00 01/23/25 09:08 Ketorolac 15 Mg/Ml Vial (*Bkc) IV PUSH 15 mg Q6H MICHEAL Administration Oxycodone/Acetaminophen 1 tablet 01/19/25 15:54 Oxycodone/Acetaminophen (*Crx) 5-325 Mg Tablet PO Q8H PRN Pain Rated 4-6 Sodium Chloride 1 spray 01/20/25 16:16 01/21/25 10:07 Saline 0.65% Davey Soln 44 Ml Btl NASAL 1 spray Q6HR PRN Administration Congestion Radiology Results: ITS Impressions Chest CTA 01/19/25 18:13 IMPRESSION: 1. No pulmonary embolism or other acute cardiopulmonary disease. Sensitivity decreased by the small basilar subsegmental pulmonary arteries due primarily to some respiratory motion. 2. Bone infarcts at the bilateral humeral heads and diffuse sclerosis of the bones with multiple vertebral bodies and small calcified likely chronically infarcted spleen, all consistent with sequela of chronic sickle cell disease. 3. Cardiomegaly. Venous Doppler Study 01/22/25 19:01 Impression: Negative for DVT. Chest X-Ray 01/22/25 19:10 Impression: No acute cardiopulmonary abnormality. Labs Labs: Laboratory Results - last 24 hr 01/23/25 01/23/25 08:23 10:58 WBC 9.1 RBC 2.45 L Hgb 7.5 L Hct 23.3 L MCV 95.1 D MCH 30.6 MCHC 32.2 RDW 23.4 H Plt Count 81 L D 238 D MPV 10.0 9.9 % Immature Plt Fraction 5.3 Sodium 137 Potassium 3.9 Chloride 106 Carbon Dioxide 25 Anion Gap 6 BUN < 2 L Creatinine 0.51 L Estim Creat Clear Calc 220 Estimated GFR > 60 Glucose 98 Calcium 8.4 Magnesium 2.2
--- NOTE | 2025-01-23 12:45 | PC.NURSE ---
Pt had lovenox and SCD ordered. This RN explained the benefits of taking them. The patient refused them and this RN explained the risks of refusing them. The patient stated his understanding and still refused the medication and SCD.
[2025-01-23 14:00] VITALS: BP 107/61; PULSE 86; RESP 16; TEMP 36.6; O2SAT 96
[2025-01-23] MEDS: HYDROmorphone HCL INJ (*CRX) 1 MG/ML SYR IV PUSH (16:48)
[2025-01-23 20:00] VITALS: BP 104/67; PULSE 86; RESP 16; TEMP 36.6; O2SAT 97
[2025-01-24] MEDS: SODIUM CHLORIDE 0.9% IV 1,000 ML 70 ML IV CONT ×2 (00:42→11:04)
[2025-01-24] MEDS: HYDROmorphone HCL INJ (*CRX) 1 MG/ML SYR 2 MG IV PUSH ×8 (01:55→23:21)
[2025-01-24 05:00] VITALS: BP 104/67; PULSE 81; RESP 16; TEMP 36.5; O2SAT 97
[2025-01-24] MEDS: FOLIC ACID 1 MG TABLET PO (07:48)
[2025-01-24] MEDS: CYANOCOBALAMIN 1,000 MCG TABLET 1000 MCG PO (07:48)
[2025-01-24 14:00] VITALS: BP 110/70; PULSE 87; RESP 18; TEMP 37.2; O2SAT 96
--- NOTE | 2025-01-24 14:44 | P.PNIM_ITS ---
Progress Note: A&P Assessment and Plan (1) Chest pain: Code(s): R07.9 - Chest pain, unspecified Status: Acute Assessment and Plan: Called by nurse that patient was experiencing worsening chest pain on 01/20. ABG 7.44/40/70 on room air. CXR showing small interstitial and airspace opacities in both lungs. Consider edema vs PNA. Echo Mar 2024 with EF 55% and normal diastolic function. Influenza, RSV and COVID PCR negative. Persistent CP essentially since admission without RADHA, neuro changes, fevers or other concerning findings. Repeat CXR clear. Remains off oxygen. [place] chest pain not acute chest syndrome. Follow (2) Sickle cell pain crisis: Code(s): D57.00 - Hb-SS disease with crisis, unspecified Status: Acute Assessment and Plan: Patient presents to the emergency room with complaints of diffuse pain mostly in his shoulders and hips. Reticulocyte count is elevated. He has schistocytes and elevated bilirubin. IV fluids resumed but patient appears to stop IV fluids at times on his own He continues to take Diluadid around the clock. He has not taken any Percocet. Continue Dilaudid p.r.n. for severe pain and Percocet Q8hr for moderate pain. Scheduled Toradol with minimal benefit per patient so this was stopped. No reason for scheduled IV Benadryl so changed to prn but he is taking regularly. Change to oral Benadryl. Consider backing down on Dilaudid. Hopefully home tomorrow (3) Sickle cell disease: Code(s): D57.1 - Sickle-cell disease without crisis Status: Acute Assessment and Plan: As above. Unclear why patient did not seek care at 1 of the major hospitals in [place] where he lives. Obtained some old records and these were reviewed. Echo as above. Unable to tolerate hydroxyurea Electrophoresis showing Hgb F 5%, Hgb A 30%, Hgb A2 3%, Hgb S 61% Iron studies noted. B12 level low at 198. Folate normal. Continue folic acid. B12 IM ordered x3 days. Continue oral B12. (4) Positive D-dimer: Code(s): R79.89 - Other specified abnormal findings of blood chemistry Status: Acute Assessment and Plan: Patient with positive D-dimer. [place] related to above. He was hospitalized recently so we considered occult PE CTA of the chest showing no PE or other acute cardiopulmonary disease. BLE venous doppler negative for DVT Monitor (5) Asthma: Code(s): J45.909 - Unspecified asthma, uncomplicated Status: Acute Assessment and Plan: Patient with a history of asthma. He uses albuterol as needed. He also takes Flonase for allergies. Resumed Flonase. Albuterol available as needed. Plan Adrenal insufficiency - Chart review shows patient has adrenal insufficiency and is supposed to take Hydrocortisone. He states he only gets this in the hospital and does not take this at home. Blood pressure is stable. Sodium and potassium are WNL. Morning Cortisol 7.9. Will hold on resuming hydrocortisone and monitor closely for s/sx of adrenal crisis. DVT Prophylaxis - patient was refusing lovenox; he understood the risks of doing so. Plt count was low but was lab error. Repeat plt count normal. Continue SCDs. Code status - full Subjective Date/time seen: 01/24/25 14:44 Interval history: 29yo male with sickle cell disease, sickle cell anemia, asthma and hx of CVA here for sickle cell pain. Walking in the room. No BM for 2 days. 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 Poor appetite. CP better. Exam Narrative: AF 97.7 104/67 81 16 97% ra Gen - NARD Chest - CTA bilaterally. CV - RRR. S1-S2. Abd - soft. diffuse tenderness with guarding Ext - no pedal edema. Psych - normal mood Skin - warm and dry. Objective Data Vital Signs Vital Signs: Vital Signs - 24 hr 01/23/25 20:00 01/23/25 20:00 01/24/25 05:00 Temperature 97.9 F 97.7 F Pulse Rate 86 81 Respiratory Rate 16 16 Blood Pressure 104/67 104/67 Pulse Oximetry 97 97 Oxygen Delivery Room Air 01/24/25 08:00 01/24/25 08:00 Temperature Pulse Rate Respiratory Rate Blood Pressure Pulse Oximetry Oxygen Delivery Room Air Room Air Intake/Output Intake/Output: Intake & Output 01/21/25 01/22/25 01/23/25 01/24/25 23:59 23:59 23:59 23:59 Intake Total 3721 3822 2757.8 2100 Output Total 3825 2350 1550 3525 Balance -104 1472 1207.8 -1425 Meds/Results Medications: Active Medications Generic Name Dose Route Start Last Admin Trade Name Freq PRN Reason Stop Dose Admin Acetaminophen 650 mg 01/19/25 16:01 Acetaminophen 325 Mg Tablet PO Q6H PRN Mild Pain (1-3) or Fever Albuterol 2 puff 01/19/25 17:13 Albuterol Sulfate (*Sp) Aerosol 1 Puff INHALATION Q6HRT PRN Shortness Of Breath Cyanocobalamin 1,000 mcg 01/22/25 09:00 01/24/25 07:48 Cyanocobalamin 1,000 Mcg Tablet PO 1,000 mcg QAM MICHEAL Administration Diphenhydramine HCl 25 mg 01/23/25 12:44 01/24/25 14:00 Diphenhydramine Hcl Inj 50 Mg/Ml Vial IV PUSH 25 mg Q4H PRN Administration Itching Docusate Sodium 100 mg 01/19/25 16:01 Docusate Sodium 100 Mg Capsule PO Q12H PRN Constipation Enoxaparin Sodium 40 mg 01/20/25 09:00 01/24/25 07:49 Enoxaparin 40 Mg/0.4 Ml Syringe SUB-Q Not Given DAILY MICHEAL Folic Acid 1 mg 01/20/25 09:00 01/24/25 07:48 Folic Acid 1 Mg Tablet PO 1 mg DAILY MICHEAL Administration Hydromorphone HCl 2 mg 01/20/25 16:16 01/24/25 14:00 Hydromorphone Hcl Inj (*Crx) 1 Mg/Ml Syr IV PUSH 2 mg Q3H PRN Administration Pain Rated 7-10 Sodium Chloride 1,000 mls @ 70 mls/hr 01/22/25 14:40 01/24/25 11:04 Normal Saline Iv IV CONT 70 mls/hr .[id number] MICHEAL Administration Oxycodone/Acetaminophen 1 tablet 01/19/25 15:54 Oxycodone/Acetaminophen (*Crx) 5-325 Mg Tablet PO Q8H PRN Pain Rated 4-6 Sodium Chloride 1 spray 01/20/25 16:16 01/21/25 10:07 Saline 0.65% Davey Soln 44 Ml Btl NASAL 1 spray Q6HR PRN Administration Congestion Radiology Results: ITS Impressions Chest CTA 01/19/25 18:13 IMPRESSION: 1. No pulmonary embolism or other acute cardiopulmonary disease. Sensitivity decreased by the small basilar subsegmental pulmonary arteries due primarily to some respiratory motion. 2. Bone infarcts at the bilateral humeral heads and diffuse sclerosis of the bones with multiple vertebral bodies and small calcified likely chronically infarcted spleen, all consistent with sequela of chronic sickle cell disease. 3. Cardiomegaly. Venous Doppler Study 01/22/25 19:01 Impression: Negative for DVT. Chest X-Ray 01/22/25 19:10 Impression: No acute cardiopulmonary abnormality.
--- NOTE | 2025-01-24 17:00 | PC.NURSE ---
Requested Dilaudid for pain rated 10 on 0-10 pain scale. Entered room to administer Dilaudid and patient was asleep. Dilaudid not administered at this time.
[2025-01-24 20:20] VITALS: BP 101/67; PULSE 84; RESP 15; TEMP 37.1; O2SAT 97
[2025-01-25] MEDS: SODIUM CHLORIDE 0.9% IV 1,000 ML 70 ML IV CONT (02:20)
[2025-01-25] MEDS: HYDROmorphone HCL INJ (*CRX) 1 MG/ML SYR 2 MG IV PUSH ×7 (02:21→21:22)
[2025-01-25 05:15] VITALS: BP 101/61; PULSE 90; RESP 17; TEMP 36.5; O2SAT 98
[2025-01-25] MEDS: FOLIC ACID 1 MG TABLET PO (09:03)
[2025-01-25] MEDS: CYANOCOBALAMIN 1,000 MCG TABLET 1000 MCG PO (09:03)
[2025-01-25 14:00] VITALS: BP 124/81; PULSE 77; RESP 18; TEMP 36.6; O2SAT 100
--- NOTE | 2025-01-25 16:42 | P.PNIM_ITS ---
Progress Note: A&P Assessment and Plan (1) Chest pain: Code(s): R07.9 - Chest pain, unspecified Status: Acute Assessment and Plan: Called by nurse that patient was experiencing worsening chest pain on 01/20. ABG 7.44/40/70 on room air. CXR showing small interstitial and airspace opacities in both lungs. Consider edema vs PNA. Echo Mar 2024 with EF 55% and normal diastolic function. Influenza, RSV and COVID PCR negative. Persistent CP essentially since admission without RADHA, neuro changes, fevers or other concerning findings. Repeat CXR clear. Remains off oxygen. [place] chest pain not acute chest syndrome. Chest pain resolving. Follow (2) Sickle cell pain crisis: Code(s): D57.00 - Hb-SS disease with crisis, unspecified Status: Acute Assessment and Plan: Patient presents to the emergency room with complaints of diffuse pain mostly in his shoulders and hips. Reticulocyte count is elevated. He has schistocytes and elevated bilirubin. IV fluids He continues to take Diluadid around the clock. He has not taken any Percocet. Continue Dilaudid p.r.n. for severe pain and Percocet Q8hr for moderate pain. Scheduled Toradol with minimal benefit per patient so this was stopped. No reason for scheduled IV Benadryl so changed to oral Benadryl prn. Hopefully home tomorrow (3) Sickle cell disease: Code(s): D57.1 - Sickle-cell disease without crisis Status: Acute Assessment and Plan: As above. Unclear why patient did not seek care at 1 of the major hospitals in [place] where he lives. Obtained some old records and these were reviewed. Echo as above. Unable to tolerate hydroxyurea Electrophoresis showing Hgb F 5%, Hgb A 30%, Hgb A2 3%, Hgb S 61% Iron studies noted. B12 level low at 198. Folate normal. Continue folic acid. B12 replaced. Continue oral B12. (4) Positive D-dimer: Code(s): R79.89 - Other specified abnormal findings of blood chemistry Status: Acute Assessment and Plan: Patient with positive D-dimer. [place] related to above. He was hospitalized recently so we considered occult PE CTA of the chest showing no PE or other acute cardiopulmonary disease. BLE venous doppler negative for DVT Monitor (5) Asthma: Code(s): J45.909 - Unspecified asthma, uncomplicated Status: Acute Assessment and Plan: Patient with a history of asthma. He uses albuterol as needed. He also takes Flonase for allergies. Resumed Flonase. Albuterol available as needed. Plan Adrenal insufficiency - Chart review shows patient has adrenal insufficiency and is supposed to take Hydrocortisone. He states he only gets this in the hospital and does not take this at home. Blood pressure is stable. Sodium and potassium are WNL. Morning Cortisol 7.9. Will hold on resuming hydrocortisone and monitor closely for s/sx of adrenal crisis. DVT Prophylaxis - patient was refusing lovenox; he understood the risks of doing so. Plt count was low but was lab error. Repeat plt count normal. Continue SCDs. Code status - full Subjective Date/time seen: 01/25/25 16:42 Interval history: 29yo male with sickle cell disease, sickle cell anemia, asthma and hx of CVA here for sickle cell pain. No problems overnight. Pain down to 8-9/10. Urine becoming clearer. Walking in room and out in [place]. Sat up in chair. No BM. Minimal CP now. Feels he will be ready for discahrge tomorrow. Exam Narrative: AF 97.9 124/81 77 18 100% ra Gen - NARD Chest - CTA bilaterally. CV - RRR. S1-S2. Abd - soft. diffuse tenderness with guarding but somewhat better Ext - no pedal edema. Psych - normal mood; appropriate Skin - warm and dry. Objective Data Vital Signs Vital Signs: Vital Signs - 24 hr 01/24/25 20:00 01/24/25 20:20 01/25/25 05:15 Temperature 98.8 F 97.7 F Pulse Rate 84 90 Respiratory Rate 15 17 Blood Pressure 101/67 101/61 Pulse Oximetry 97 98 Oxygen Delivery Room Air 01/25/25 08:00 01/25/25 14:00 Temperature 97.9 F Pulse Rate 77 Respiratory Rate 18 Blood Pressure 124/81 Pulse Oximetry 100 Oxygen Delivery Room Air Intake/Output Intake/Output: Intake & Output 01/22/25 01/23/25 01/24/25 01/25/25 23:59 23:59 23:59 23:59 Intake Total 3822 2757.8 3130 2487.2 Output Total 2350 1550 4525 800 Balance 1472 1207.8 -1395 1687.2 Meds/Results Medications: Active Medications Generic Name Dose Route Start Last Admin Trade Name Freq PRN Reason Stop Dose Admin Acetaminophen 650 mg 01/19/25 16:01 Acetaminophen 325 Mg Tablet PO Q6H PRN Mild Pain (1-3) or Fever Albuterol 2 puff 01/19/25 17:13 Albuterol Sulfate (*Sp) Aerosol 1 Puff INHALATION Q6HRT PRN Shortness Of Breath Cyanocobalamin 1,000 mcg 01/22/25 09:00 01/25/25 09:03 Cyanocobalamin 1,000 Mcg Tablet PO 1,000 mcg QAM MICHEAL Administration Diphenhydramine HCl 25 mg 01/24/25 14:56 Diphenhydramine Hcl Cap 25 Mg Capsule PO Q6H PRN Itching Docusate Sodium 100 mg 01/19/25 16:01 Docusate Sodium 100 Mg Capsule PO Q12H PRN Constipation Enoxaparin Sodium 40 mg 01/20/25 09:00 01/25/25 09:03 Enoxaparin 40 Mg/0.4 Ml Syringe SUB-Q Not Given DAILY MICHEAL Folic Acid 1 mg 01/20/25 09:00 01/25/25 09:03 Folic Acid 1 Mg Tablet PO 1 mg DAILY MICHEAL Administration Hydromorphone HCl 2 mg 01/20/25 16:16 01/25/25 15:02 Hydromorphone Hcl Inj (*Crx) 1 Mg/Ml Syr IV PUSH 2 mg Q3H PRN Administration Pain Rated 7-10 Sodium Chloride 1,000 mls @ 100 mls/hr 01/22/25 14:40 01/25/25 15:09 Normal Saline Iv IV CONT 100 mls/hr .Q10H MICHEAL Infusion Oxycodone/Acetaminophen 1 tablet 01/19/25 15:54 Oxycodone/Acetaminophen (*Crx) 5-325 Mg Tablet PO Q8H PRN Pain Rated 4-6 Polyethylene Glycol 17 gm 01/25/25 14:10 Polyethylene Glycol 3350 17 Gm Powd.Pack PO QAM MICHEAL Sodium Chloride 1 spray 01/20/25 16:16 01/21/25 10:07 Saline 0.65% Davey Soln 44 Ml Btl NASAL 1 spray Q6HR PRN Administration Congestion Radiology Results: ITS Impressions Chest CTA 01/19/25 18:13 IMPRESSION: 1. No pulmonary embolism or other acute cardiopulmonary disease. Sensitivity decreased by the small basilar subsegmental pulmonary arteries due primarily to some respiratory motion. 2. Bone infarcts at the bilateral humeral heads and diffuse sclerosis of the bones with multiple vertebral bodies and small calcified likely chronically infarcted spleen, all consistent with sequela of chronic sickle cell disease. 3. Cardiomegaly. Venous Doppler Study 01/22/25 19:01 Impression: Negative for DVT. Chest X-Ray 01/22/25 19:10 Impression: No acute cardiopulmonary abnormality.
[2025-01-25 20:07] VITALS: BP 110/65; PULSE 88; RESP 18; TEMP 36.6; O2SAT 98
[2025-01-25] MEDS: SODIUM CHLORIDE 0.9% IV 1,000 ML 100 ML IV CONT (21:23)
[2025-01-26] MEDS: HYDROmorphone HCL INJ (*CRX) 1 MG/ML SYR 2 MG IV PUSH ×8 (00:16→23:43)
[2025-01-26] MEDS: SODIUM CHLORIDE 0.9% IV 1,000 ML 100 ML IV CONT ×3 (03:18→20:45)
[2025-01-26 05:10] VITALS: BP 114/81; PULSE 85; RESP 18; TEMP 36.6; O2SAT 99
--- NOTE | 2025-01-26 09:26 | P.PNIM_ITS ---
Progress Note: A&P Assessment and Plan (1) Chest pain: Code(s): R07.9 - Chest pain, unspecified Status: Acute Assessment and Plan: Called by nurse that patient was experiencing worsening chest pain on 01/20. ABG 7.44/40/70 on room air. CXR showing small interstitial and airspace opacities in both lungs. Consider edema vs PNA. Echo Mar 2024 with EF 55% and normal diastolic function. Influenza, RSV and COVID PCR negative. Persistent CP essentially since admission without RADHA, neuro changes, fevers or other concerning findings. Repeat CXR clear. Remains off oxygen. [place] chest pain not acute chest syndrome. Chest pain resolving. Follow Assuming care 01/26/2025: Denies chest pain specifically. (2) Sickle cell pain crisis: Code(s): D57.00 - Hb-SS disease with crisis, unspecified Status: Acute Assessment and Plan: Patient presents to the emergency room with complaints of diffuse pain mostly in his shoulders and hips. Reticulocyte count is elevated. He has schistocytes and elevated bilirubin. IV fluids He continues to take Diluadid around the clock. He has not taken any Percocet. Continue Dilaudid p.r.n. for severe pain and Percocet Q8hr for moderate pain. Scheduled Toradol with minimal benefit per patient so this was stopped. No reason for scheduled IV Benadryl so changed to oral Benadryl prn. Hopefully home tomorrow Assuming care 01/26/2025: Patient reports pain is better upon evaluation however it is uncontrolled overall and if he leaves today come back shortly. He reports he could be discharged tomorrow likely. (3) Sickle cell disease: Code(s): D57.1 - Sickle-cell disease without crisis Status: Acute Assessment and Plan: As above. Unclear why patient did not seek care at 1 of the major hospitals in [place] where he lives. Obtained some old records and these were reviewed. Echo as above. Unable to tolerate hydroxyurea Electrophoresis showing Hgb F 5%, Hgb A 30%, Hgb A2 3%, Hgb S 61% Iron studies noted. B12 level low at 198. Folate normal. Continue folic acid. B12 replaced. Continue oral B12. Assuming care on 01/26/2025: Continue B12 and folic acid. Will check a CBC on 01/27/2025. (4) Positive D-dimer: Code(s): R79.89 - Other specified abnormal findings of blood chemistry Status: Acute Assessment and Plan: Patient with positive D-dimer. [place] related to above. He was hospitalized recently so we considered occult PE CTA of the chest showing no PE or other acute cardiopulmonary disease. BLE venous doppler negative for DVT Monitor (5) Asthma: Code(s): J45.909 - Unspecified asthma, uncomplicated Status: Acute Assessment and Plan: Patient with a history of asthma. He uses albuterol as needed. He also takes Flonase for allergies. Resumed Flonase. Albuterol available as needed. Plan Adrenal insufficiency - Chart review shows patient has adrenal insufficiency and is supposed to take Hydrocortisone. He states he only gets this in the hospital and does not take this at home. Blood pressure is stable. Sodium and potassium are WNL. Morning Cortisol 7.9. Will hold on resuming hydrocortisone and monitor closely for s/sx of adrenal crisis. DVT Prophylaxis - patient was refusing lovenox; he understood the risks of doing so. Plt count was low but was lab error. Repeat plt count normal. Continue SCDs. Code status - full Assuming care on 01/26/2025: Discontinue IV fluid infusion. Subjective Date/time seen: 01/26/25 09:26 Interval history: 29yo male with sickle cell disease, sickle cell anemia, asthma and hx of CVA here for sickle cell pain. Did not report any BM yet. No major acute overnight events. Patient does not quantify his pain will reports it is better at the moment however overall uncontrolled. Reports, ?I cannot leave today or I will have to return.? Review of Systems Review of Systems: All systems reviewed & are unremarkable except as noted in HPI and below (Subjective) Exam Const: General: comfortable and no acute distress Other: A&O x3 HENMT: Mouth: Yes moist mucous membranes Eyes: Pupils: Equal, round and reactive pupils present Neck: Neck: supple Resp: Effort & Inspection: normal respiratory effort Auscultation: clear to auscultation bilaterally Cardio: Rate: regular rate Rhythm: regular rhythm Heart sounds: no gallops, no murmurs and no rubs GI: Inspection: non-distended GI Palp: Yes Soft to palpation Auscultation: normal bowel sounds Neuro: Motor exam (neuro): 5/5 motor strength present throughout Extrem: General: no edema Objective Data Vital Signs Vital Signs: Vital Signs - 24 hr 01/25/25 14:00 01/25/25 20:07 01/25/25 21:38 Temperature 97.9 F 97.8 F Pulse Rate 77 88 Respiratory Rate 18 18 Blood Pressure 124/81 110/65 Pulse Oximetry 100 98 Oxygen Delivery Room Air 01/26/25 05:10 Temperature 98 F Pulse Rate 85 Respiratory Rate 18 Blood Pressure 114/81 Pulse Oximetry 99 Oxygen Delivery Intake/Output Intake/Output: Intake & Output 01/23/25 01/24/25 01/25/25 01/26/25 23:59 23:59 23:59 23:59 Intake Total 2757.8 3130 3930.0 1091.7 Output Total 1550 4525 2200 1350 Balance 1207.8 -1395 1730.0 -258.3 Meds/Results Medications: Active Medications Generic Name Dose Route Start Last Admin Trade Name Freq PRN Reason Stop Dose Admin Acetaminophen 650 mg 01/19/25 16:01 Acetaminophen 325 Mg Tablet PO Q6H PRN Mild Pain (1-3) or Fever Albuterol 2 puff 01/19/25 17:13 Albuterol Sulfate (*Sp) Aerosol 1 Puff INHALATION Q6HRT PRN Shortness Of Breath Cyanocobalamin 1,000 mcg 01/22/25 09:00 01/25/25 09:03 Cyanocobalamin 1,000 Mcg Tablet PO 1,000 mcg QAM MICHEAL Administration Diphenhydramine HCl 25 mg 01/24/25 14:56 Diphenhydramine Hcl Cap 25 Mg Capsule PO Q6H PRN Itching Docusate Sodium 100 mg 01/19/25 16:01 Docusate Sodium 100 Mg Capsule PO Q12H PRN Constipation Enoxaparin Sodium 40 mg 01/20/25 09:00 01/25/25 09:03 Enoxaparin 40 Mg/0.4 Ml Syringe SUB-Q Not Given DAILY MICHEAL Folic Acid 1 mg 01/20/25 09:00 01/25/25 09:03 Folic Acid 1 Mg Tablet PO 1 mg DAILY MICHEAL Administration Hydromorphone HCl 2 mg 01/20/25 16:16 01/26/25 06:29 Hydromorphone Hcl Inj (*Crx) 1 Mg/Ml Syr IV PUSH 2 mg Q3H PRN Administration Pain Rated 7-10 Oxycodone/Acetaminophen 1 tablet 01/19/25 15:54 Oxycodone/Acetaminophen (*Crx) 5-325 Mg Tablet PO Q8H PRN Pain Rated 4-6 Polyethylene Glycol 17 gm 01/25/25 14:10 01/25/25 18:16 Polyethylene Glycol 3350 17 Gm Powd.Pack PO Not Given QAM MICHEAL Sodium Chloride 1 spray 01/20/25 16:16 01/21/25 10:07 Saline 0.65% Davey Soln 44 Ml Btl NASAL 1 spray Q6HR PRN Administration Congestion Radiology Results: ITS Impressions Chest CTA 01/19/25 18:13 IMPRESSION: 1. No pulmonary embolism or other acute cardiopulmonary disease. Sensitivity decreased by the small basilar subsegmental pulmonary arteries due primarily to some respiratory motion. 2. Bone infarcts at the bilateral humeral heads and diffuse sclerosis of the bones with multiple vertebral bodies and small calcified likely chronically infarcted spleen, all consistent with sequela of chronic sickle cell disease. 3. Cardiomegaly. Venous Doppler Study 01/22/25 19:01 Impression: Negative for DVT. Chest X-Ray 01/22/25 19:10 Impression: No acute cardiopulmonary abnormality.
[2025-01-26] MEDS: FOLIC ACID 1 MG TABLET PO (09:47)
[2025-01-26] MEDS: CYANOCOBALAMIN 1,000 MCG TABLET 1000 MCG PO (09:47)
--- NOTE | 2025-01-26 11:02 | PCNWS ---
Weekly nutritional screen. Patient is tolerating current Regular diet with adequate intake. Did not feel like breakfast today, intakes have been 75-100% till today. No weight loss reported. No nutritional needs at this time.
--- NOTE | 2025-01-26 14:04 | PC.NURSE ---
Patient very upset when attempting to discontinue his IV fluids. Notified Dr. Thomas. New order to restart fluids
[2025-01-26 16:10] VITALS: BP 108/72; PULSE 86; RESP 20; TEMP 36.9; O2SAT 98
[2025-01-26 20:59] VITALS: BP 113/77; PULSE 85; RESP 20; TEMP 36.8; O2SAT 97
[2025-01-27] MEDS: HYDROmorphone HCL INJ (*CRX) 1 MG/ML SYR 2 MG IV PUSH ×7 (02:45→23:22)
--- NOTE | 2025-01-27 03:05 | PC.NURSE ---
Received in report that patient was messing with his IV pump. Today he admitted to me that he would push buttons if it was beeping and wouldnt call the RN. Patient continues to refuse to ambulate or take a shower. I have offered for the patient to shower 3 times this shift and he has refused and keeps pushing it off. Patient has some body odor from not bathing. Patient also continues to throw his trash and the blankets he doesnt need on the floor. Patient sets his alarm for every 3 hours to get his pain medication. Patient states that his pain is always a 9 or 10 and needs his IV dilaudid. Patient continues to refuse PO percocet. Patient states that he has been having bowel movements daily and stated he had one on 01/26/25 when i asked him. Patient is eating and drinking with no difficulty. Urine is clear yellow with no odor. Patient tried telling this RN to push the dilaudid quicker and to flush more NS after it quicker, stating it keeps it from burning and itching. Instructed to the patient that i would not push the dilaudid any quicker. 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 Spoke to patient alittle bit about when he discharges and patient just laughed and said he needs his dilaudid and wont be discharged. Day RN stated that patient refused for his IVF to be discontinued or his IV dilaudid dosage to be decreased.
[2025-01-27 05:45] VITALS: BP 100/62; PULSE 84; RESP 16; TEMP 36.6; O2SAT 96
--- NOTE | 2025-01-27 08:53 | PM.IMPN ---
Progress Note: A&P Assessment and Plan (1) Chest pain: Code(s): R07.9 - Chest pain, unspecified Status: Acute (2) Sickle cell disease: Code(s): D57.1 - Sickle-cell disease without crisis Status: Acute Plan HPI: 29yo male with sickle cell disease, sickle cell anemia, asthma and hx of CVA here for sickle cell pain. Patient states he was diagnosed with sickle cell disease at . He initially had some issues with sickle cell as a child but from 2011 to 2021, he was asymptomatic to the point where he was having no flares, not on medications and actually stopped seeing his gold leaf layer. In 2011, he had a minor injury but with significant pain to the left hip and found to have avascular necrosis. He underwent surgery with bone shaving with some improvement. He was also found to have avascular necrosis of the right hip and bilateral shoulders. He moved to [place] in 2022 but did return to this area last year. He sees Dr. Bautista and gets majority of his care over at [facility]. He has frequent ER visits and hospitalizations. He was hospitalized for a month in October/November 2024 for acute chest syndrome X and found to have also ?3 silent strokes? and urine retention. He was rehospitalized toward the end of November has also had multiple ER visits since then as well. He states he takes scheduled Percocet t.i.d. and has a pain contract with his gold leaf layer. Patient states he has had pain mostly in his joints for the past few weeks. He was seen at [facility] on the day before admission but claims the provider ?said I was faking?. He went to [facility] where he received IV fluids and pain medications with improvement. He was unable to be admitted there. He was discharged and patient took an Uber to [facility] for evaluation. He last saw his gold leaf layer in July. He does have a history of SVT and states his heart rate does run fast but better when ? I calm myself down?. No recent trauma. He does have dry cough occasionally productive yellow sputum. No fever or chills. No vision changes. No odynophagia or dysphagia. Urine is dark but no dysuria or hematuria. No shortness of breath but does have chest pain that comes and goes past week that is occasional pleuritic. No calf pain. No pedal edema. He does have mostly back pain and pain at the bottom of his feet. No nausea or vomiting. No diarrhea or constipation. Appetite okay. Last bowel movement was earlier today. Patient has never been seen here in [facility]. In the ED, he was hemodynamically stable. Heart rate was mildly elevated at 114. WBC 15K, Hgb 8.1 and Plt count normal. Rare schistocytes. Absolute retic 0.35 (12.6%). DDimer 1.92. CMP normal except glucose 127, APhos 236 and TBili 7.4. UA cloudy with 1+ protein, 1+ ketones, N+/LE trace and 2+ bili. CXR reviewed and is clear. UCx pending. EKG reviewed and showing sinus tach, poor R wave progression, and moderate anterior T wave changes. He was treated with Dilaudid, Zofran, Toradol, Benadryl and IV fluids. He was admitted for further care. HOSPITAL COURSE: Patient no longer complains of chest pain. No acute etiologies covered. Nurse's note on 01/26/2025 reviewed. Patient has not been observed to be in pain. During evaluation he denies pain but wants to take Dilaudid around the clock anyway. He has also refused labs. He is discharged in stable condition to home on 01/27/2025. He reports taking Percocet at home. He reportedly has a pain contract with his gold leaf layer [place] and has a follow-up in 2 weeks. He has been advised to follow-up closely and adhere to further recommendations and pain contract guidelines. While discharging, nurse reports the patient began to cry complain of chest pain. Attempt to Obtain troponin and labs in the morning which she initially refused, obtain EKG. He is saturating 97% on room air. Check chest x-ray. Administer medications and monitor for resolution of pain. Continue to monitor Subjective Date/time seen: 01/27/25 08:53 Interval history: Spoke with patient about discharge. Discharge planning commenced but then patient began to cry and complain of chest pain. Review of Systems Review of Systems: All systems reviewed & are unremarkable except as noted in HPI and below (Subjective) Exam Const: General: comfortable and no acute distress Other: Resting in bed comfortably Eyes: Pupils: Equal, round and reactive pupils present Neck: Neck: supple Resp: Effort & Inspection: normal respiratory effort Auscultation: clear to auscultation bilaterally Cardio: Rate: regular rate Rhythm: regular rhythm Heart sounds: no murmurs GI: Inspection: non-distended GI Palp: Yes Soft to palpation Neuro: Motor exam (neuro): 5/5 motor strength present throughout Extrem: General: no edema Objective Data Vital Signs Vital Signs: Vital Signs - 24 hr 01/26/25 16:10 01/26/25 20:45 01/26/25 20:59 Temperature 98.5 F 98.3 F Pulse Rate 86 85 Respiratory Rate 20 20 Blood Pressure 108/72 113/77 Pulse Oximetry 98 97 Oxygen Delivery Room Air 01/27/25 05:45 Temperature 97.8 F Pulse Rate 84 Respiratory Rate 16 Blood Pressure 100/62 Pulse Oximetry 96 Oxygen Delivery Intake/Output Intake/Output: Intake & Output 01/24/25 01/25/25 01/26/25 01/27/25 23:59 23:59 23:59 23:59 Intake Total 3130 3930.0 1866.7 1140 Output Total 4525 2200 3025 2800 Balance -1395 1730.0 -1158.3 -1660 Meds/Results Medications: Active Medications Generic Name Dose Route Start Last Admin Trade Name Freq PRN Reason Stop Dose Admin Acetaminophen 650 mg 01/19/25 16:01 Acetaminophen 325 Mg Tablet PO Q6H PRN Mild Pain (1-3) or Fever Albuterol 2 puff 01/19/25 17:13 Albuterol Sulfate (*Sp) Aerosol 1 Puff INHALATION Q6HRT PRN Shortness Of Breath Cyanocobalamin 1,000 mcg 01/22/25 09:00 01/26/25 09:47 Cyanocobalamin 1,000 Mcg Tablet PO 1,000 mcg QAM MICHEAL Administration Diphenhydramine HCl 25 mg 01/24/25 14:56 Diphenhydramine Hcl Cap 25 Mg Capsule PO Q6H PRN Itching Docusate Sodium 100 mg 01/19/25 16:01 Docusate Sodium 100 Mg Capsule PO Q12H PRN Constipation Enoxaparin Sodium 40 mg 01/20/25 09:00 01/26/25 09:48 Enoxaparin 40 Mg/0.4 Ml Syringe SUB-Q Not Given DAILY [facility] Folic Acid 1 mg 01/20/25 09:00 01/26/25 09:47 Folic Acid 1 Mg Tablet PO 1 mg DAILY MICHEAL Administration Hydromorphone HCl 2 mg 01/20/25 16:16 01/27/25 06:32 Hydromorphone Hcl Inj (*Crx) 1 Mg/Ml Syr IV PUSH 2 mg Q3H PRN Administration Pain Rated 7-10 Sodium Chloride 1,000 mls @ 100 mls/hr 01/26/25 15:20 01/26/25 20:45 Normal Saline Iv IV CONT 100 mls/hr .Q10H MICHEAL Administration Oxycodone/Acetaminophen 1 tablet 01/19/25 15:54 Oxycodone/Acetaminophen (*Crx) 5-325 Mg Tablet PO Q8H PRN Pain Rated 4-6 Polyethylene Glycol 17 gm 01/25/25 14:10 01/26/25 09:48 Polyethylene Glycol 3350 17 Gm Powd.Pack PO Not Given QAM MICHEAL Sodium Chloride 1 spray 01/20/25 16:16 01/21/25 10:07 Saline 0.65% Davey Soln 44 Ml Btl NASAL 1 spray Q6HR PRN Administration Congestion Radiology Results: ITS Impressions Chest CTA 01/19/25 18:13 IMPRESSION: 1. No pulmonary embolism or other acute cardiopulmonary disease. Sensitivity decreased by the small basilar subsegmental pulmonary arteries due primarily to some respiratory motion. 2. Bone infarcts at the bilateral humeral heads and diffuse sclerosis of the bones with multiple vertebral bodies and small calcified likely chronically infarcted spleen, all consistent with sequela of chronic sickle cell disease. 3. Cardiomegaly. Venous Doppler Study 01/22/25 19:01 Impression: Negative for DVT. Chest X-Ray 01/22/25 19:10 Impression: No acute cardiopulmonary abnormality.
[2025-01-27] MEDS: FOLIC ACID 1 MG TABLET PO (08:54)
[2025-01-27] MEDS: CYANOCOBALAMIN 1,000 MCG TABLET 1000 MCG PO (08:54)
--- NOTE | 2025-01-27 08:59 | ECG_ITS ---
Test Date: 2025-01-27 09:27:15 Measurements Intervals [place] Rate: 81 P: 33 SD: 192 QRS: 7 QRSD: 88 T: 26 QT: 393 QTc: 458 Interpretive Statements SINUS RHYTHM Compared to ECG 01/19/2025 05:55:19 Sinus tachycardia no longer present T-wave abnormality no longer present Possible ischemia no longer present Electronically Signed On 01-27-2025 11:40:43 CDT by Damaso Lopez M.D.
[2025-01-27 09:00] VITALS: BP 123/72; PULSE 83; RESP 22; TEMP 36.1; O2SAT 97
[2025-01-27 09:42] LABS: Hematocrit 24.0 % (42.0-52.0); Hemoglobin 8.0 g/dL (14.0-18.0); Immature Granulocyte Percent A 0.2 % (0-0.5); Lymphocytes Absolute Auto 3.83 K/mm3 (0.9-3.2); Mean Corpuscular HGB Conc 33.3 g/dl (32-36); Mean Corpuscular Hemoglobin 29.9 pg (26-34); Mean Corpuscular Volume 89.6 fl (80-100); Nucleated Red Blood Cells Absolute Auto 0.080 K/mm3 (0.0-0.012); Nucleated Red Blood Cells Perc 0.8 % (0.0-0.2); Platelet Count Result 283 k/mm3 (150-375); Red Blood Count 2.68 M/mm3 (4.6-6.20); White Blood Count 10.1 K/mm3 (4.5-10.0)
[2025-01-27 10:05] LABS: Troponin I < 0.012 ng/mL (0.000-0.034)
[2025-01-27] MEDS: SODIUM CHLORIDE 0.9% IV 1,000 ML 100 ML IV CONT ×2 (10:07→19:51)
[2025-01-27 10:44] LABS: Anion Gap 10 mmol/L (4-12); Blood Urea Nitrogen 2 mg/dL (9-20); Calcium 8.6 mg/dL (8.4-10.2); Carbon Dioxide 19 mmol/L (22-30); Chloride 106 mmol/L (98-107); Estimated CRCL calculation 251 ml/min; Estimated Glomerular Filt Rate > 60; Glucose 100 mg/dL (65-110); Potassium 4.2 mmol/L (3.4-5.0); Sodium 135 mmol/L (137-145)
[2025-01-27 14:00] VITALS: BP 118/66; PULSE 103; RESP 20; TEMP 36.6; O2SAT 98
[2025-01-27 20:26] VITALS: BP 117/81; PULSE 101; RESP 18; TEMP 36.8; O2SAT 97
[2025-01-28] MEDS: HYDROmorphone HCL INJ (*CRX) 1 MG/ML SYR 2 MG IV PUSH ×7 (02:25→22:56)
[2025-01-28] MEDS: SODIUM CHLORIDE 0.9% IV 1,000 ML 100 ML IV CONT ×2 (05:21→19:55)
[2025-01-28 06:00] VITALS: BP 116/67; PULSE 93; RESP 18; TEMP 35.6; O2SAT 96
[2025-01-28] MEDS: CYANOCOBALAMIN 1,000 MCG TABLET 1000 MCG PO (10:25)
[2025-01-28] MEDS: FOLIC ACID 1 MG TABLET PO (10:26)
--- NOTE | 2025-01-28 13:03 | PC.NURSE ---
Patient requesting a Percocet. RN notified patient that he received dilaudid one hour ago and i could not give pain pill this close together. RN called MD Tavarez to verify. states it is okay to give the percocet at this time.
[2025-01-28] MEDS: oxyCODONE/ACETAMINOPHEN (*CRX) 5-325 MG TABLET 1 TABLET PO (13:09)
[2025-01-28 14:00] VITALS: BP 111/61; PULSE 97; RESP 16; TEMP 36.1; O2SAT 97
--- NOTE | 2025-01-28 14:39 | P.PNIM_ITS ---
Progress Note: A&P Assessment and Plan (1) Chest pain: Code(s): R07.9 - Chest pain, unspecified Status: Acute (2) Sickle cell disease: Code(s): D57.1 - Sickle-cell disease without crisis Status: Acute Plan 29yo male with sickle cell disease, sickle cell anemia, asthma and hx of CVA here for sickle cell pain. Patient states he was diagnosed with sickle cell disease at . He initially had some issues with sickle cell as a child but from 2011 to 2021, he was asymptomatic to the point where he was having no flares, not on medications and actually stopped seeing his tanning consultant. In 2011, he had a minor injury but with significant pain to the left hip and found to have avascular necrosis. He underwent surgery with bone shaving with some improvement. He was also found to have avascular necrosis of the right hip and bilateral shoulders. He moved to [place] in 2022 but did return to this area last year. He sees Dr. Bautista and gets majority of his care over at [facility]. He has frequent ER visits and hospitalizations. He was hospitalized for a month in October/November 2024 for acute chest syndrome X and found to have also ?3 silent strokes? and urine retention. He was rehospitalized toward the end of November has also had multiple ER visits since then as well. He states he takes scheduled Percocet t.i.d. and has a pain contract with his tanning consultant. Patient states he has had pain mostly in his joints for the past few weeks. He was seen at [facility] on the day before admission but claims the provider ?said I was faking?. He went to [facility] where he received IV fluids and pain medications with improvement. He was unable to be admitted there. He was discharged and patient took an Uber to [facility] for evaluation. He last saw his tanning consultant in July. He does have a history of SVT and states his heart rate does run fast but better when ? I calm myself down?. No recent trauma. He does have dry cough occasionally productive yellow sputum. No fever or chills. No vision changes. No odynophagia or dysphagia. Urine is dark but no dysuria or hematuria. No shortness of breath but does have chest pain that comes and goes past week that is occasional pleuritic. No calf pain. No pedal edema. He does have mostly back pain and pain at the bottom of his feet. No nausea or vomiting. No diarrhea or constipation. Appetite okay. Patient has never been seen here in [facility]. In the ED, he was hemodynamically stable. Heart rate was mildly elevated at 114. WBC 15K, Hgb 8.1 and Plt count normal. Rare schistocytes. Absolute retic 0.35 (12.6%). DDimer 1.92. CMP normal except glucose 127, APhos 236 and TBili 7.4. UA cloudy with 1+ protein, 1+ ketones, N+/LE trace and 2+ bili. CXR reviewed and is clear. UCx pending. EKG reviewed and showing sinus tach, poor R wave progression, and moderate anterior T wave changes. He was treated with Dilaudid, Zofran, Toradol, Benadryl and IV fluids. He was admitted for further care. Patient continues to complain of pain which is generalized. His been treated with IV Dilaudid scheduled. He reports being on Percocet at home which was ordered by his tanning consultant. He has a follow-up appointment with his tanning consultant in 2 weeks. Advised to restart his home doses of oral medications. Will restart his Percocet and advised to primarily take Percocet for his pain control to see if he has able to avoid any IV pain medication for suitability of discharge home. Sickle cell crisis patient has been unable to tolerate hydroxyurea in the past. Electrophoresis showing hemoglobin F 5% hemoglobin 8 30% hemoglobin A2 3% and hemoglobin as 61%. Iron studies noted B12 low at 198 folate normal. Continue B12 and folic acid replacement Positive D-dimer. CTA showing no PE or any acute cardiopulmonary disease. Bilateral lower extremity venous duplex negative for DVT History of asthma on albuterol p.r.n.. Flonase for allergies. Adrenal insufficiency per chart review supposed to be taking hydrocortisone. Morning cortisol 7.9. Electrolytes within normal limit. Monitor for signs and symptoms of adrenal crisis DVT prophylaxis refused Lovenox Code status full code Subjective Date/time seen: 01/28/25 14:39 Interval history: no overnight events, patient feels better than yesterday but still hurts and hurts at various locations, mostly in his calf. reports hx of avascular necrosis. he has not seen his primary physician for his sickle cell since july 2024. was recently admitted to [facility] with the same Review of Systems Review of Systems: All systems reviewed & are unremarkable except as noted in HPI and below (Subjective) Exam Narrative: Gen - NARD Chest - CTA bilaterally. CV - RRR. S1-S2. Abd - soft. Ext - no pedal edema. Psych - normal mood; appropriate Skin - warm and dry. Objective Data Vital Signs Vital Signs: Vital Signs - 24 hr 01/27/25 19:45 01/27/25 20:26 01/28/25 06:00 Temperature 98.3 F 96.1 F L Pulse Rate 101 H 93 Respiratory Rate 18 18 Blood Pressure 117/81 116/67 Pulse Oximetry 97 96 Oxygen Delivery Room Air 01/28/25 08:26 Temperature Pulse Rate Respiratory Rate Blood Pressure Pulse Oximetry Oxygen Delivery Room Air Intake/Output Intake/Output: Intake & Output 01/25/25 01/26/25 01/27/25 01/28/25 23:59 23:59 23:59 23:59 Intake Total 3930.0 1866.7 4263.3 2786 Output Total 2200 3025 3300 1100 Balance 1730.0 -1158.3 963.3 1686 Meds/Results Medications: Active Medications Generic Name Dose Route Start Last Admin Trade Name Freq PRN Reason Stop Dose Admin Acetaminophen 650 mg 01/19/25 16:01 Acetaminophen 325 Mg Tablet PO Q6H PRN Mild Pain (1-3) or Fever Albuterol 2 puff 01/19/25 17:13 Albuterol Sulfate (*Sp) Aerosol 1 Puff INHALATION Q6HRT PRN Shortness Of Breath Cyanocobalamin 1,000 mcg 01/22/25 09:00 01/28/25 10:25 Cyanocobalamin 1,000 Mcg Tablet PO 1,000 mcg QAM MICHEAL Administration Diphenhydramine HCl 25 mg 01/24/25 14:56 Diphenhydramine Hcl Cap 25 Mg Capsule PO Q6H PRN Itching Docusate Sodium 100 mg 01/19/25 16:01 Docusate Sodium 100 Mg Capsule PO Q12H PRN Constipation Enoxaparin Sodium 40 mg 01/20/25 09:00 01/28/25 10:26 Enoxaparin 40 Mg/0.4 Ml Syringe SUB-Q Not Given DAILY [facility] Folic Acid 1 mg 01/20/25 09:00 01/28/25 10:26 Folic Acid 1 Mg Tablet PO 1 mg DAILY MICHEAL Administration Hydromorphone HCl 2 mg 01/20/25 16:16 01/28/25 11:44 Hydromorphone Hcl Inj (*Crx) 1 Mg/Ml Syr IV PUSH 2 mg Q3H PRN Administration Pain Rated 7-10 Sodium Chloride 1,000 mls @ 100 mls/hr 01/26/25 15:20 01/28/25 05:21 Normal Saline Iv IV CONT 100 mls/hr .Q10H MICHEAL Administration Oxycodone/Acetaminophen 1 tablet 01/19/25 15:54 01/28/25 13:09 Oxycodone/Acetaminophen (*Crx) 5-325 Mg Tablet PO 1 tablet Q8H PRN Administration Pain Rated 4-6 Polyethylene Glycol 17 gm 01/25/25 14:10 01/28/25 10:39 Polyethylene Glycol 3350 17 Gm Powd.Pack PO Not Given QAM MICHEAL Sodium Chloride 1 spray 01/20/25 16:16 01/21/25 10:07 Saline 0.65% Davey Soln 44 Ml Btl NASAL 1 spray Q6HR PRN Administration Congestion Radiology Results: ITS Impressions Chest CTA 01/19/25 18:13 IMPRESSION: 1. No pulmonary embolism or other acute cardiopulmonary disease. Sensitivity decreased by the small basilar subsegmental pulmonary arteries due primarily to some respiratory motion. 2. Bone infarcts at the bilateral humeral heads and diffuse sclerosis of the bones with multiple vertebral bodies and small calcified likely chronically infarcted spleen, all consistent with sequela of chronic sickle cell disease. 3. Cardiomegaly. Venous Doppler Study 01/22/25 19:01 Impression: Negative for DVT. Chest X-Ray 01/27/25 09:43 IMPRESSION: 1. No acute cardiopulmonary disease. 2. Constellation of findings suggestive of chronic sickle cell disease including cardiomegaly, prior cholecystectomy and osteonecrosis at the right humeral head.
[2025-01-28 16:29] VITALS: TEMP 36.1
[2025-01-28 20:36] VITALS: BP 124/96; PULSE 95; RESP 16; TEMP 36.7; O2SAT 97
[2025-01-29] MEDS: HYDROmorphone HCL INJ (*CRX) 1 MG/ML SYR 2 MG IV PUSH ×4 (02:27→12:02)
[2025-01-29 04:55] VITALS: BP 107/69; PULSE 75; RESP 14; TEMP 36.2; O2SAT 97
[2025-01-29] MEDS: SODIUM CHLORIDE 0.9% IV 1,000 ML 100 ML IV CONT (05:36)
[2025-01-29] MEDS: CYANOCOBALAMIN 1,000 MCG TABLET 1000 MCG PO (08:57)
[2025-01-29] MEDS: FOLIC ACID 1 MG TABLET PO (08:57)
--- NOTE | 2025-01-29 11:55 | PM.IMPN ---
Progress Note: A&P Assessment and Plan (1) Chest pain: Code(s): R07.9 - Chest pain, unspecified Status: Acute (2) Sickle cell disease: Code(s): D57.1 - Sickle-cell disease without crisis Status: Acute Plan 29yo male with sickle cell disease, sickle cell anemia, asthma and hx of CVA here for sickle cell pain. Patient states he was diagnosed with sickle cell disease at . He initially had some issues with sickle cell as a child but from 2011 to 2021, he was asymptomatic to the point where he was having no flares, not on medications and actually stopped seeing his lead java software engineer. In 2011, he had a minor injury but with significant pain to the left hip and found to have avascular necrosis. He underwent surgery with bone shaving with some improvement. He was also found to have avascular necrosis of the right hip and bilateral shoulders. He moved to [place] in 2022 but did return to this area last year. He sees Dr. Bautista and gets majority of his care over at [facility]. He has frequent ER visits and hospitalizations. He was hospitalized for a month in October/November 2024 for acute chest syndrome X and found to have also ?3 silent strokes? and urine retention. He was rehospitalized toward the end of November has also had multiple ER visits since then as well. He states he takes scheduled Percocet t.i.d. and has a pain contract with his lead java software engineer. Patient states he has had pain mostly in his joints for the past few weeks. He was seen at [facility] on the day before admission but claims the provider ?said I was faking?. He went to [facility] where he received IV fluids and pain medications with improvement. He was unable to be admitted there. He was discharged and patient took an Uber to [facility] for evaluation. He last saw his lead java software engineer in July. He does have a history of SVT and states his heart rate does run fast but better when ? I calm myself down?. No recent trauma. He does have dry cough occasionally productive yellow sputum. No fever or chills. No vision changes. No odynophagia or dysphagia. Urine is dark but no dysuria or hematuria. No shortness of breath but does have chest pain that comes and goes past week that is occasional pleuritic. No calf pain. No pedal edema. He does have mostly back pain and pain at the bottom of his feet. No nausea or vomiting. No diarrhea or constipation. Appetite okay. Patient has never been seen here in [facility]. In the ED, he was hemodynamically stable. Heart rate was mildly elevated at 114. WBC 15K, Hgb 8.1 and Plt count normal. Rare schistocytes. Absolute retic 0.35 (12.6%). DDimer 1.92. CMP normal except glucose 127, APhos 236 and TBili 7.4. UA cloudy with 1+ protein, 1+ ketones, N+/LE trace and 2+ bili. CXR reviewed and is clear. UCx pending. EKG reviewed and showing sinus tach, poor R wave progression, and moderate anterior T wave changes. He was treated with Dilaudid, Zofran, Toradol, Benadryl and IV fluids. He was admitted for further care. Patient continues to complain of pain which is generalized. His been treated with IV Dilaudid scheduled. He reports being on Percocet at home which was ordered by his lead java software engineer. He has a follow-up appointment with his lead java software engineer in 2 weeks. Advised to restart his home doses of oral medications. Restarted his Percocet and advised to primarily take Percocet for his pain control to see if he has able to avoid any IV pain medication for suitability of discharge home however he has not done so. Will increase it to 30 mg as he was originally prescribed today and have strongly advised to started primarily take oral pain medication to see if this will help with pain control and get off IV pain medication. He has also refused his labs that has been ordered for past 2 days. Sickle cell crisis patient has been unable to tolerate hydroxyurea in the past. Electrophoresis showing hemoglobin F 5% hemoglobin 8 30% hemoglobin A2 3% and hemoglobin as 61%. Iron studies noted B12 low at 198 folate normal. Continue B12 and folic acid replacement. He will need to follow up with his lead java software engineer for chronic management as outpatient basis Positive D-dimer. CTA showing no PE or any acute cardiopulmonary disease. Bilateral lower extremity venous duplex negative for DVT History of asthma on albuterol p.r.n.. Flonase for allergies. Adrenal insufficiency per chart review supposed to be taking hydrocortisone. Morning cortisol 7.9. Electrolytes within normal limit. Monitor for signs and symptoms of adrenal crisis DVT prophylaxis refused Lovenox Code status full code Subjective Date/time seen: 01/29/25 11:55 Interval history: Patient did not try 20 mg of oxycodone that was ordered. Argues that oxycodone 30 mg was not ordered which is his home doses. Remains on IV Dilaudid as ordered. Explained since he is on IV Dilaudid did not wanted to go all the way up to 30 mg oxycodone and titrating up however does not listen to my rationale. He wants to continue on IV Dilaudid and does own a talk about her plan for pain control at home. Review of Systems Review of Systems: All systems reviewed & are unremarkable except as noted in HPI and below (Subjective) Exam Narrative: Gen - NARD Chest - CTA bilaterally. CV - RRR. S1-S2. Abd - soft. Ext - no pedal edema. Psych - normal mood; appropriate Skin - warm and dry. Objective Data Vital Signs Vital Signs: Vital Signs - 24 hr 01/28/25 14:00 01/28/25 16:29 01/28/25 20:00 Temperature 96.9 F L 96.9 F L Pulse Rate 97 Respiratory Rate 16 Blood Pressure 111/61 Pulse Oximetry 97 Oxygen Delivery Room Air 01/28/25 20:36 01/29/25 04:55 01/29/25 08:00 Temperature 98.0 F 97.2 F L Pulse Rate 95 75 Respiratory Rate 16 14 Blood Pressure 124/96 H 107/69 Pulse Oximetry 97 97 Oxygen Delivery Room Air Intake/Output Intake/Output: Intake & Output 01/26/25 01/27/25 01/28/25 01/29/25 23:59 23:59 23:59 23:59 Intake Total 1866.7 4263.3 4816 1868.3 Output Total 3025 3300 2900 1475 Balance -1158.3 963.3 1916 393.3 Meds/Results Medications: Active Medications Generic Name Dose Route Start Last Admin Trade Name Freq PRN Reason Stop Dose Admin Acetaminophen 650 mg 01/19/25 16:01 Acetaminophen 325 Mg Tablet PO Q6H PRN Mild Pain (1-3) or Fever Albuterol 2 puff 01/19/25 17:13 Albuterol Sulfate (*Sp) Aerosol 1 Puff INHALATION Q6HRT PRN Shortness Of Breath Cyanocobalamin 1,000 mcg 01/22/25 09:00 01/29/25 08:57 Cyanocobalamin 1,000 Mcg Tablet PO 1,000 mcg QAM MICHEAL Administration Diphenhydramine HCl 25 mg 01/24/25 14:56 Diphenhydramine Hcl Cap 25 Mg Capsule PO Q6H PRN Itching Docusate Sodium 100 mg 01/19/25 16:01 Docusate Sodium 100 Mg Capsule PO Q12H PRN Constipation Enoxaparin Sodium 40 mg 01/20/25 09:00 01/29/25 08:58 Enoxaparin 40 Mg/0.4 Ml Syringe SUB-Q Not Given DAILY MICHEAL Folic Acid 1 mg 01/20/25 09:00 01/29/25 08:57 Folic Acid 1 Mg Tablet PO 1 mg DAILY MICHEAL Administration Hydromorphone HCl 2 mg 01/29/25 11:24 Hydromorphone Hcl Inj (*Crx) 1 Mg/Ml Syr IV PUSH Q4H PRN Pain Rated 7-10 Sodium Chloride 1,000 mls @ 100 mls/hr 01/26/25 15:20 01/29/25 05:36 Normal Saline Iv IV CONT 100 mls/hr .Q10H MICHEAL Administration Oxycodone/Acetaminophen 3 tab 01/29/25 11:24 Oxycodone/Acetaminophen (*Crx) 10-325 Mg Tablet PO Q8H PRN Pain Rated 7-10 Polyethylene Glycol 17 gm 01/25/25 14:10 01/29/25 08:58 Polyethylene Glycol 3350 17 Gm Powd.Pack PO Not Given QAM MICHEAL Sodium Chloride 1 spray 01/20/25 16:16 01/21/25 10:07 Saline 0.65% Davey Soln 44 Ml Btl NASAL 1 spray Q6HR PRN Administration Congestion Radiology Results: ITS Impressions Chest CTA 01/19/25 18:13 IMPRESSION: 1. No pulmonary embolism or other acute cardiopulmonary disease. Sensitivity decreased by the small basilar subsegmental pulmonary arteries due primarily to some respiratory motion. 2. Bone infarcts at the bilateral humeral heads and diffuse sclerosis of the bones with multiple vertebral bodies and small calcified likely chronically infarcted spleen, all consistent with sequela of chronic sickle cell disease. 3. Cardiomegaly. Venous Doppler Study 01/22/25 19:01 Impression: Negative for DVT. Chest X-Ray 01/27/25 09:43 IMPRESSION: 1. No acute cardiopulmonary disease. 2. Constellation of findings suggestive of chronic sickle cell disease including cardiomegaly, prior cholecystectomy and osteonecrosis at the right humeral head.
--- NOTE | 2025-01-29 15:25 | P.DS_ITS ---
DS: Admitting Diagnosis Discharge Date 01/29/2025 Admitting Diagnosis Generalized pain DS: Discharge Diagnosis Discharge Diagnosis (1) Chest pain: Code(s): R07.9 - Chest pain, unspecified Status: Acute (2) Sickle cell disease: Code(s): D57.1 - Sickle-cell disease without crisis Status: Acute DS: Summary Hospital Course Hospital Course: 29yo male with sickle cell disease, sickle cell anemia, asthma and hx of CVA here for sickle cell pain. Patient states he was diagnosed with sickle cell disease at . He initially had some issues with sickle cell as a child but from 2011 to 2021, he was asymptomatic to the point where he was having no flares, not on medications and actually stopped seeing his refrigerated national truck driver. In 2011, he had a minor injury but with significant pain to the left hip and found to have avascular necrosis. He underwent surgery with bone shaving with some improvement. He was also found to have avascular necrosis of the right hip and bilateral shoulders. He moved to [place] in 2022 but did return to this area last year. He sees Dr. Bautista and gets majority of his care over at [facility]. He has frequent ER visits and hospitalizations. He was hospitalized for a month in October/November 2024 for acute chest syndrome X and found to have also ?3 silent strokes? and urine retention. He was rehospitalized toward the end of November has also had multiple ER visits since then as well. He states he takes scheduled Percocet t.i.d. and has a pain contract with his refrigerated national truck driver. Patient states he has had pain mostly in his joints for the past few weeks. He was seen at [facility] on the day before admission but claims the provider ?said I was faking?. He went to [facility] where he received IV fluids and pain medications with improvement. He was unable to be admitted there. He was discharged and patient took an Uber to [facility] for evaluation. He last saw his refrigerated national truck driver in July. He does have a history of SVT and states his heart rate does run fast but better when ? I calm myself down?. No recent trauma. He does have dry cough occasionally productive yellow sputum. No fever or chills. No vision changes. No odynophagia or dysphagia. Urine is dark but no dysuria or hematuria. No shortness of breath but does have chest pain that comes and goes past week that is occasional pleuritic. No calf pain. No pedal edema. He does have mostly back pain and pain at the bottom of his feet. No nausea or vomiting. No diarrhea or constipation. Appetite okay. Patient has never been seen here in [facility]. In the ED, he was hemodynamically stable. Heart rate was mildly elevated at 114. WBC 15K, Hgb 8.1 and Plt count normal. Rare schistocytes. Absolute retic 0.35 (12.6%). DDimer 1.92. CMP normal except glucose 127, APhos 236 and TBili 7.4. UA cloudy with 1+ protein, 1+ ketones, N+/LE trace and 2+ bili. CXR reviewed and is clear. UCx pending. EKG reviewed and showing sinus tach, poor R wave progression, and moderate anterior T wave changes. He was treated with Dilaudid, Zofran, Toradol, Benadryl and IV fluids. He was admitted for further care. Patient continues to complain of pain which is generalized. His been treated with IV Dilaudid scheduled. He reports being on Percocet at home which was ordered by his refrigerated national truck driver. He has a follow-up appointment with his refrigerated national truck driver in 2 weeks. Advised to restart his home doses of oral medications. Restarted his Percocet and advised to primarily take Percocet for his pain control to see if he has able to avoid any IV pain medication for suitability of discharge home however he has not done so. Will increase it to 30 mg as he was originally prescribed today and have strongly advised to started primarily take oral pain medication to see if this will help with pain control and get off IV pain medication. He has also refused his labs that has been ordered for past 2 days. He has been hospital shopping for past few years. Several admissions every month for several days each time. Has missed multiple appointments with his primary refrigerated national truck driver that he supposed to follow-up with. He does not seem to be in pain clinically however he continues to complain of excessive subjective pain. Despite his underlying diagnosis off sickle cell crisis on multiple similar admissions, he is not willing to work on oral medications to control his pain. He is insistent on continuing to get IV Dilaudid which is concerning. He has also not worked with his outpatient physicians for safer control of his pain and attempted to stay out of hospitals. He is adamant manipulative and likely malingering. I stopped his further iv dilaudid and will discharge home to follow up with his primary care. I have told him i will not be giving him refill on his pain medications and will have to contact his refrigerated national truck driver for the same. Stay on Percocet as ordered oral. Advised to see pain management/refrigerated national truck driver as outpatient basis for further treatment office sickle cell disease since he is not able to tolerate hydroxyurea(as noted in the chart). I am sure there are newer treatment regimens for sickle cell disease of to prevent from getting in pain crisis which he need to seek. Hence I discontinued IV Dilaudid patient has been wanting to discharge. He has been hemodynamically stable and I believe he is clinically stable from his sickle cell disease as well with stable labs over the past several days. Sickle cell crisis patient has been unable to tolerate hydroxyurea in the past. Electrophoresis showing hemoglobin F 5% hemoglobin 8 30% hemoglobin A2 3% and hemoglobin as 61%. Iron studies noted B12 low at 198 folate normal. Continue B12 and folic acid replacement. He will need to follow up with his refrigerated national truck driver for chronic management as outpatient basis Positive D-dimer. CTA showing no PE or any acute cardiopulmonary disease. Bilateral lower extremity venous duplex negative for DVT History of asthma on albuterol p.r.n.. Flonase for allergies. Adrenal insufficiency per chart review supposed to be taking hydrocortisone. Morning cortisol 7.9. Electrolytes within normal limit. Monitor for signs and symptoms of adrenal crisis. Follow-up as an outpatient basis DVT prophylaxis refused Lovenox Code status full code Time Spent with Patient Time attestation: Total time spent providing and/or coordinating discharge services: 50 minutes Exam Narrative: Gen - NARD Chest - CTA bilaterally. CV - RRR. S1-S2. Abd - soft. Ext - no pedal edema. Psych - normal mood; appropriate Skin - warm and dry. DS: Data Imaging Radiologist's impression: ITS Impressions Chest X-Ray 01/19/25 06:05 IMPRESSION: 1: NO ACUTE CARDIOPULMONARY DISEASE. Chest CTA 01/19/25 18:13 IMPRESSION: 1. No pulmonary embolism or other acute cardiopulmonary disease. Sensitivity dec reased by the small basilar subsegmental pulmonary arteries due primarily to some respiratory motion. 2. Bone infarcts at the bilateral humeral heads and diffuse sclerosis of the bones with multiple vertebral bodies and small calcified likely chronically infarcted spleen, all consistent with sequela of chronic sickle cell disease. 3. Cardiomegaly. Chest X-Ray 01/20/25 17:41 IMPRESSION: 1: Small interstitial and airspace opacities in both lungs. Differential includes but is not limited to edema or pneumonia. Venous Doppler Study 01/22/25 19:01 Impression: Negative for DVT. Chest X-Ray 01/22/25 19:10 Impression: No acute cardiopulmonary abnormality. Chest X-Ray 01/27/25 09:43 IMPRESSION: 1. No acute cardiopulmonary disease. 2. Constellation of findings suggestive of chronic sickle cell disease including cardiomegaly, prior cholecystectomy and osteonecrosis at the right humeral head. Discharge Plan Discharge Attending physician on discharge: Nicholas Tavarez Consulting providers: Efren Carnes Discharging Clinician: Nicholas Tavarez Anticipated Discharge Date/Time: 01/29/25 15:28 Patient Disposition: Home Activity: september shower Diet: as tolerated Patient Instructions: Antibiotic Form, Sickle Cell Disease (DC) Patient Language: Swazi Stand Alone Forms: General Discharge Information Follow-up/Referrals: Carlos,Laurent Lugo MD [Primary Care Provider] Referral Note: within 7 days Discharge Medications: New cyanocobalamin (vitamin B-12) [Vitamin B-12] 1,000 mcg Tablet 1,000 mcg PO QAM Qty: 30 0RF oxycodone-acetaminophen 10-325 mg Tablet 3 tablet PO Q8H PRN (Reason: Pain Rated 7-10) Qty: 30 0RF Continued folic acid 1 mg tablet 1 mg PO DAILY Date of admission: 01/21/25 10:14 Primary Care Provider: CarlosLaurent Admitting Provider: Matthias Beckman Attending physician on admission: Matthias Beckman Condition: Improved
--- NOTE | 2025-01-29 15:45 | PC.NURSE ---
patient stated to dana, care coordination, that he was having no pain at the moment. dana asked the patient what he was needing the pain medication for and patient stated that he had to take it because it is scheduled for every four hours even though the patient stated that he was having no pain.
--- NOTE | 2025-01-29 15:54 | PC.NURSE ---
patient stated that he was ready to leave [facility] so that he can go to another hospital to receive pain medication.
--- NOTE | 2025-01-29 16:05 | PC.NURSE ---
patient refused to take discharge packet upon leaving. patient stated that he wanted to sit in downstairs lobby until uber patrol driver arrived.
== END 2025-01-29 16:00 | disposition home or self-care (01) | DRG 662 ==
LOC: ANHED 06:38 → ANH3MEDSUR 11:12
PROVIDERS: General Practice; Admitting Provider Internal Medicine; Emergency Provider Emergency Medicine; PCP Pathology Blood Banking & Transfusion Medicine; Visit Provider Internal Medicine
DX: D57.00 Hb-SS disease with crisis, unspecified (principal); I47.10 Supraventricular tachycardia, unspecified; E27.40 Unspecified adrenocortical insufficiency; J45.909 Unspecified asthma, uncomplicated; F43.10 Post-traumatic stress disorder, unspecified; I69.311 Memory deficit following cerebral infarction
CPT/HCPCS: 36415; 36600; 71045; 71046; 71275; 80048; 80053; 81001; 82533; 82607; 82728; 82746; 82805; 83020; 83540; 83550; 83735; 84443; 84484; 85014; 85018; 85025; 85027; 85046; 85049; 85055; 85380; 87086; 87637; 93005; 93970; 96361; 96374; 96375; 96376; 99285; A9270; G0378; J1171; J1200; J1650; J1885; J2405; J3420; J7030; Q9967

== ENCOUNTER 2025-02-14 19:16 | Emergency (ER) | payer MEDICAID, SELFPAY ==
--- OUTSIDE RECORDS SUMMARY | 2025-01-29 22:31 | XMS_ITS | Encounter Summary ---
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 3Vw Result Date: 01/29/2025 IMPRESSION: 1. No acute osseous abnormality. 2. Osseous stigmata of sickle cell disease. 3. Heterogeneous sclerosis of the pelvis and sacrum, possibly also related to osseous infarcts as a sequela ofsickle cell disease, similar to CT 10/30/2024. Preliminary: Roland Oliva DO01/29/2025 6:15 PM The attending radiologist has reviewed the image(s) and agrees with the content of this report. Ordered By: NOE GROSS Interpreted By: Roland Oliva DO, 01/29/2025 6:11 PM Exam BP 121/79 (BP Location: Right arm, Patient Position: Lying) Pulse 75 Temp 98.2 ??F (36.8 ??C) (Oral) Resp 18 Ht 1.778 m (5' 10) Wt 108.8 kg (239 lb 14.4 oz) SpO2 95% BMI 34.42 kg/m?? General appearance: alert, no distress Heart: regular rhythm, normal S1 and S2, without murmurs, rubs or gallops Lungs: breath sounds normal and symmetric; no rales or wheezes Abdomen: soft without mass, non-tender, with normal bowel sounds Extremities: no clubbing, cyanosis or edema Midline 02/02/25919 Single-lumen Left Brachial Vein (Active) Placement Date/Time: 02/02/25919 Midline Lumen Type: Single-lumen IV Catheter Size: 20 Gauge Length (cm): 10 cm Orientation: Left Location: Brachial Vein Site Prep: Chlorhexidine Exposed Catheter (cm): 0 cm Placement Verification: Ultrasound Number of days: 4 Assessment and Plan Concern for Acute sickle cell crisis Chest pain Diffuse muscle aches Sickle cell disease Adrenal insufficiency Anemia Elevated T.bili due to above -patient went to 2 other ERs and was not admitted and came here and got admitted -he has been in and out of different hospitals and was barely out of the hospital for a month so far this year Multiple hospitalizations reviewed including [facility], [facility], [facility] -He is yet to see Hematology at [facility] since appointment in 04/2024 -He was fired by prior [facility] [employer] due to threatening behavior for not giving pain meds he asked for -he was recently discharge from our hospital on 12/31/2024 and had 4 ER visits and 1 hospitalization in between -He states currently has hematology appointment at [facility] on 02/14/2025 () -Discussed at [facility]'s -we will also contact [facility] hematology at some point this admission -consulted our java development manager here -Palliative care was asked to see, but they felt like they had not much to offer in his case -he is refusing labs today -He is asking me to increased pain meds (IV dilaudid) as per the dose and frequency he wants. Declining other modalities. -on IV fluids -resume solucortef 10mg q dialy, 5mg PO Qhs 02/02/2025: pain well controlled with current regimen. Lost IV line for few hours overnight. Hematology saw. Await for improvement in pain. 02/03/2025: LDH trending down. Hb is 7.4. on IV dilaudid Q3hrs regularly. D/w him about changing Q4 hrs from tomorrow based on how he does. -: Hb is 8.1 LDH is slightly up to 468. He states pain is worse, wants to stay at 2mg Q3 onIV dilaudid. 02/05: reduced IV dilaudid to 2mg Q 4hrs from Q3 hrs. No new changes. We will obtain labs tomorrow. 02/06: continue with current regimen. As per nursing staff: patient reporting sometimes pain is worse. DVT PPX: SCD Full Code READMISSION RISK SCORE is 27.7 at 4:33 PM 02/06/2025. Disposition: pending Due to medical issues in the assessment and plan, continued hospitalization will be required. Hospitalized Status Inpatient Patient Diagnoses Present at the Time of Admission Fluid and electrolyte disorder: acidosis requiring treatment based on CO2 Anemia requiring further monitoring Anemia: Anemia in Chronic Disease Amandeep Sheehan MD [facility] 02/06/2025 Portions of this note may be dictated using voice recognition software. Variances in spelling and vocabulary are possible and unintentional. Not all errors are caught/corrected. Please notify the author if any discrepancies are noted or if the meaning of any statement is not clear. These grammatical oversights have no impact on the medical care provided to the patient. [1] SALINE LOCK, INSERT AND MAINTAIN AND 0.9% NaCl AND 0.9% NaCl 0.9% NaCl diphenhydrAMINE HYDROmorphone ondansetron (disintegrating) OR ondansetron oxyCODONE-acetaminophen * Amandeep Sheehan MD - 02/05/2025 4:35 PM CDT Images from the original note were not included. Hospitalist Progress Note Admit Date: 01/29/2025 10:31 PM Hospital Day: 7 Inpatient Clinical Course Artur Simon is a 29 year old male who is admitted for Acute on chronic pain, suspected Sickle cell crisis: -patient is resting on the bed -ongoing pain -he is agreeable to reduced dilaudid to 2mg Q4 hrs today New Symptoms Patient denies shortness of breath, abdominal pain, nausea, vomiting, diarrhea, constipation, urinary problems Medications: 0.9% NaCl injection 10-40 mL, Intracatheter, q8h 0.9% NaCl injection 3 mL, Intracatheter, q8h folic acid (Folvite) tablet 1 mg, Oral, QDAY hydrocortisone (Cortef) tablet 10 mg, Oral, QDAY hydrocortisone (Cortef) tablet 5 mg, Oral, AT BEDTIME pantoprazole EC (Protonix) tablet 40 mg, Oral, BID Medications[1] Data Intake/Output Summary (Last 24 hours) at 02/05/2025 1635 Last data filed at 02/05/2025 1457 Gross per 24 hour Intake 927 ml Output 1300 ml Net -373 ml Recent Labs Component Name 02/04/25 1317 02/03/25 0656 02/02/25 0121 01/31/25 2258 WBC - 9.9 8.9 9.2 HGB 8.1* 7.4* 7.9* 8.3* HCT 23.4* 21.5* 22.8* 24.6* PLTCOUNT - 282 308 303 Recent Labs Component Name 02/03/25 0656 02/02/25 0121 01/31/25 2258 SODIUM 141 141 140 POTASSIUM 3.8 3.7 4.5 CHLORIDE 108* 110* 109* CO2 26 21* 21* BUN 4* 3* 3* CREATININE 0.57* 0.56* 0.58* EGFR >90 >90 >90 GLUCOSE 89 108* 92 CALCIUM 8.0* 8.3* 8.3* Recent Labs Component Name 01/29/25 2328 12/25/24 1208 12/24/24 0059 06/30/24 1830 05/16/24 1824 05/15/24 1506 02/05/24 0859 02/04/24 1654 01/03/24 0456 12/16/23 0135 12/07/23 0152 12/06/23 1113 12/05/23 0942 03/19/23 1940 03/19/23 0924 03/09/23 1445 03/08/23 2208 ALBUMIN 3.8 3.5 3.7 - - - - - - - - - - - - - - ALB - - - - 4.0 4.2 - - - 3.9 - 3.6 3.5 - - - - - ALKPHOS 253* 317* 332* - 178* 199* - - - 203* - 159* - - - - - ALT 26 32 41 - 28 33 - - - 41 - 25 - - - - - AST 72* 48 67* - 46* 53* - - - 54* - 28 - - - - - TBILI - - - - 4.6* 6.6* - - - 3.4* - 3.4* - - - - - DBILI - - - - 0.6* - - - - - - 0.6* 0.6* - - - - TPROT 7.9 7.2 7.4 - - - - - - - - - - - - - - BNP - - - - - - - <10 - - - - - - <10 - <10 - = values in this interval not displayed. XR Chest 1Vw Portable Result Date: 01/30/2025 IMPRESSION: Borderline cardiac silhouette for age. No acute pulmonary infiltrate > Interpreting Provider: Leopoldo Martin MD on 01/30/2025 8:40 AM XR Lumbar Spine 2 or 3Vw Result Date: 01/29/2025 IMPRESSION: 1. No acute osseous abnormality. 2. Osseous stigmata of sickle cell disease. 3. Heterogeneous sclerosis of the pelvis and sacrum, possibly also related to osseous infarcts as a sequela ofsickle cell disease, similar to CT 10/30/2024. Preliminary: Roland Oliva DO01/29/2025 6:15 PM The attending radiologist has reviewed the image(s) and agrees with the content of this report. Ordered By: NOE GROSS Interpreted By: Roland Oliva DO, 01/29/2025 6:11 PM Exam BP 116/74 (BP Location: Right arm, Patient Position: Lying) Pulse 81 Temp 98.1 ??F (36.7 ??C) (Oral) Resp 18 Ht 1.778 m (5' 10) Wt 108.8 kg (239 lb 14.4 oz) SpO2 94% BMI 34.42 kg/m?? General appearance: alert, no distress Heart: regular rhythm, normal S1 and S2, without murmurs, rubs or gallops Lungs: breath sounds normal and symmetric; no rales or wheezes Abdomen: soft without mass, non-tender, with normal bowel sounds Extremities: no clubbing, cyanosis or edema Midline 02/02/25919 Single-lumen Left Brachial Vein (Active) Placement Date/Time: 02/02/25919 Midline Lumen Type: Single-lumen IV Catheter Size: 20 Gauge Length (cm): 10 cm Orientation: Left Location: Brachial Vein Site Prep: Chlorhexidine Exposed Catheter (cm): 0 cm Placement Verification: Ultrasound Number of days: 3 Assessment and Plan Concern for Acute sickle cell crisis Chest pain Diffuse muscle aches Sickle cell disease Adrenal insufficiency Anemia Elevated T.bili due to above -patient went to 2 other ERs and was not admitted and came here and got admitted -he has been in and out of different hospitals and was barely out of the hospital for a month so far this year Multiple hospitalizations reviewed including [facility], [facility], [facility] -He is yet to see Hematology at [facility] since appointment in 04/2024 -He was fired by prior [facility] [employer] due to threatening behavior for not giving pain meds he asked for -he was recently discharge from our hospital on 12/31/2024 and had 4 ER visits and 1 hospitalization in between -He states currently has hematology appointment at [facility] on 02/14/2025 () -Discussed at [facility]'s -we will also contact [facility] hematology at some point this admission -consulted our java development manager here -Palliative care was asked to see, but they felt like they had not much to offer in his case -he is refusing labs today -He is asking me to increased pain meds (IV dilaudid) as per the dose and frequency he wants. Declining other modalities. -on IV fluids -resume solucortef 10mg q dialy, 5mg PO Qhs 02/02/2025: pain well controlled with current regimen. Lost IV line for few hours overnight. Hematology saw. Await for improvement in pain. 02/03/2025: LDH trending down. Hb is 7.4. on IV dilaudid Q3hrs regularly. D/w him about changing Q4 hrs from tomorrow based on how he does. -: Hb is 8.1 LDH is slightly up to 468. He states pain is worse, wants to stay at 2mg Q3 onIV dilaudid. 02/05: reduced IV dilaudid to 2mg Q 4hrs from Q3 hrs. No new changes. We will obtain labs tomorrow. DVT PPX: SCD Full Code READMISSION RISK SCORE is 28.5 at 4:35 PM 02/05/2025. Disposition: pending Due to medical issues in the assessment and plan, continued hospitalization will be required. Hospitalized Status Inpatient Patient Diagnoses Present at the Time of Admission Fluid and electrolyte disorder: acidosis requiring treatment based on CO2 Anemia requiring further monitoring Anemia: Anemia in Chronic Disease Amandeep Sheehan MD [facility] 02/05/2025 Portions of this note may be dictated using voice recognition software. Variances in spelling and vocabulary are possible and unintentional. Not all errors are caught/corrected. Please notify the author if any discrepancies are noted or if the meaning of any statement is not clear. These grammatical oversights have no impact on the medical care provided to the patient. [1] SALINE LOCK, INSERT AND MAINTAIN AND 0.9% NaCl AND 0.9% NaCl 0.9% NaCl diphenhydrAMINE HYDROmorphone ondansetron (disintegrating) OR ondansetron oxyCODONE-acetaminophen * Amandeep Sheehan MD - 02/04/2025 6:34 PM CDT Images from the original note were not included. Hospitalist Progress Note Admit Date: 01/29/2025 10:31 PM Hospital Day: 6 Inpatient Clinical Course Artur Simon is a 29 year old male who is admitted for Acute on chronic pain, suspected Sickle cell crisis: -patient is resting on the bed -ongoing pain New Symptoms Patient denies shortness of breath, abdominal pain, nausea, vomiting, diarrhea, constipation, urinary problems Medications: 0.9% NaCl injection 10-40 mL, Intracatheter, q8h 0.9% NaCl injection 3 mL, Intracatheter, q8h folic acid (Folvite) tablet 1 mg, Oral, QDAY hydrocortisone (Cortef) tablet 10 mg, Oral, QDAY hydrocortisone (Cortef) tablet 5 mg, Oral, AT BEDTIME pantoprazole EC (Protonix) tablet 40 mg, Oral, BID Medications[1] Data Intake/Output Summary (Last 24 hours) at 02/04/2025 1834 Last data filed at 02/04/2025 1400 Gross per 24 hour Intake 1383.79 ml Output 2700 ml Net -1316.21 ml Recent Labs Component Name 02/04/25 1317 02/03/25 0656 02/02/25 0121 01/31/25 2258 WBC - 9.9 8.9 9.2 HGB 8.1* 7.4* 7.9* 8.3* HCT 23.4* 21.5* 22.8* 24.6* PLTCOUNT - 282 308 303 Recent Labs Component Name 02/03/25 0656 02/02/25 0121 01/31/25 2258 SODIUM 141 141 140 POTASSIUM 3.8 3.7 4.5 CHLORIDE 108* 110* 109* CO2 26 21* 21* BUN 4* 3* 3* CREATININE 0.57* 0.56* 0.58* EGFR >90 >90 >90 GLUCOSE 89 108* 92 CALCIUM 8.0* 8.3* 8.3* Recent Labs Component Name 01/29/25 2328 12/25/24 1208 12/24/24 0059 06/30/24 1830 05/16/24 1824 05/15/24 1506 02/05/24 0859 02/04/24 1654 01/03/24 0456 12/16/23 0135 12/07/23 0152 12/06/23 1113 12/05/23 0942 03/19/23 1940 03/19/23 0924 03/09/23 1445 03/08/23 2208 ALBUMIN 3.8 3.5 3.7 - - - - - - - - - - - - - - ALB - - - - 4.0 4.2 - - - 3.9 - 3.6 3.5 - - - - - ALKPHOS 253* 317* 332* - 178* 199* - - - 203* - 159* - - - - - ALT 26 32 41 - 28 33 - - - 41 - 25 - - - - - AST 72* 48 67* - 46* 53* - - - 54* - 28 - - - - - TBILI - - - - 4.6* 6.6* - - - 3.4* - 3.4* - - - - - DBILI - - - - 0.6* - - - - - - 0.6* 0.6* - - - - TPROT 7.9 7.2 7.4 - - - - - - - - - - - - - - BNP - - - - - - - <10 - - - - - - <10 - <10 - = values in this interval not displayed. XR Chest 1Vw Portable Result Date: 01/30/2025 IMPRESSION: Borderline cardiac silhouette for age. No acute pulmonary infiltrate > Interpreting Provider: Leopoldo Martin MD on 01/30/2025 8:40 AM XR Lumbar Spine 2 or 3Vw Result Date: 01/29/2025 IMPRESSION: 1. No acute osseous abnormality. 2. Osseous stigmata of sickle cell disease. 3. Heterogeneous sclerosis of the pelvis and sacrum, possibly also related to osseous infarcts as a sequela ofsickle cell disease, similar to CT 10/30/2024. Preliminary: Roland Oliva DO01/29/2025 6:15 PM The attending radiologist has reviewed the image(s) and agrees with the content of this report. Ordered By: NOE GROSS Interpreted By: Roland Oliva DO, 01/29/2025 6:11 PM Exam BP 112/84 Pulse 78 Temp 98.6 ??F (37 ??C) (Oral) Resp 18 Ht 1.778 m (5' 10) Wt 108.8 kg (239 lb 14.4 oz) SpO2 97% BMI 34.42 kg/m?? General appearance: alert, no distress Heart: regular rhythm, normal S1 and S2, without murmurs, rubs or gallops Lungs: breath sounds normal and symmetric; no rales or wheezes Abdomen: soft without mass, non-tender, with normal bowel sounds Extremities: no clubbing, cyanosis or edema Midline 02/02/25919 Single-lumen Left Brachial Vein (Active) Placement Date/Time: 02/02/25919 Midline Lumen Type: Single-lumen IV Catheter Size: 20 Gauge Length (cm): 10 cm Orientation: Left Location: Brachial Vein Site Prep: Chlorhexidine Exposed Catheter (cm): 0 cm Placement Verification: Ultrasound Number of days: 2 Assessment and Plan Concern for Acute sickle cell crisis Chest pain Diffuse muscle aches Sickle cell disease Adrenal insufficiency Anemia Elevated T.bili due to above -patient went to 2 other ERs and was not admitted and came here and got admitted -he has been in and out of different hospitals and was barely out of the hospital for a month so far this year Multiple hospitalizations reviewed including [facility], [facility], [facility] -He is yet to see Hematology at [facility] since appointment in 04/2024 -He was fired by prior [facility] [employer] due to threatening behavior for not giving pain meds he asked for -he was recently discharge from our hospital on 12/31/2024 and had 4 ER visits and 1 hospitalization in between -He states currently has hematology appointment at [facility] on 02/14/2025 () -Discussed at [facility]'s -we will also contact [facility] hematology at some point this admission -consulted our java development manager here -Palliative care was asked to see, but they felt like they had not much to offer in his case -he is refusing labs today -He is asking me to increased pain meds (IV dilaudid) as per the dose and frequency he wants. Declining other modalities. -on IV fluids -resume solucortef 10mg q dialy, 5mg PO Qhs 02/02/2025: pain well controlled with current regimen. Lost IV line for few hours overnight. Hematology saw. Await for improvement in pain. 02/03/2025: LDH trending down. Hb is 7.4. on IV dilaudid Q3hrs regularly. D/w him about changing Q4 hrs from tomorrow based on how he does. -25: Hb is 8.1 LDH is slightly up to 468. He states pain is worse, wants to stay at 2mg Q3 onIV dilaudid. DVT PPX: SCD Full Code READMISSION RISK SCORE is 28.4 at 6:34 PM 02/04/2025. Disposition: pending Due to medical issues in the assessment and plan, continued hospitalization will be required. Hospitalized Status Inpatient Patient Diagnoses Present at the Time of Admission Fluid and electrolyte disorder: acidosis requiring treatment based on CO2 Anemia requiring further monitoring Anemia: Anemia in Chronic Disease Amandeep Sheehan MD [facility] Medicine 02/04/2025 Portions of this note may be dictated using voice recognition software. Variances in spelling and vocabulary are possible and unintentional. Not all errors are caught/corrected. Please notify the author if any discrepancies are noted or if the meaning of any statement is not clear. These grammatical oversights have no impact on the medical care provided to the patient. [1] SALINE LOCK, INSERT AND MAINTAIN AND 0.9% NaCl AND 0.9% NaCl 0.9% NaCl diphenhydrAMINE [DISCONTINUED] HYDROmorphone OR HYDROmorphone HYDROmorphone ondansetron (disintegrating) OR ondansetron oxyCODONE-acetaminophen * Simeon Carvalho - 02/04/2025 3:51 PM CDT 02/04/25 1500 Spiritual In what ways can we or our chaplains presently attend to your spiritual, emotional or cultural needs? None Visit Type Assessment Date 02/04/25 Retention Representative Visiting Patient darius Pastoral Care Reason for Visit Follow Up Pastoral Care Visit Type(s) Follow Up Encounter Type Patient and Family Spiritual History Community Family and Friends Support Spiritual Assessment Spiritual Assessment Exploring Kinsey/Health Issues;Content;Peaceful Interventions Pastoral Care Conversation;Reflective Listening;Support Support Goals of Care Plan/Outcome Plan Follow-up Available by Request Pastoral Care remains available as needed/requested. Simeon Carvalho MDiv Retention Representative & Spool Cleaner For Urgent Needs: ext. [phone] / [phone] Outside: [phone] * Ana Pastor RN - 02/04/2025 10:12 AM CDT Care Coordination Progress Note Expected Discharge Date: 02/08/2025 Discharge Plan: Home Chart reviewed. Plan for patient to return home at [place]. Home connections to follow, orders in place.Patient states that he has an appointment with Dr Gonzalez on 02/14/25 Family Support (Name and Phone): Extended Emergency Contact Information Primary Emergency Contact: JUSTINE SIMON Mobile Relation: Sister Transportation at Discharge: Medicaid Provider: READMISSION RISK SCORE is 28.1 at 10:12 AM 02/04/2025.: Name: Ana Pastor RN [id number] * Humberto Greer RN - 02/04/2025 7:02 AM CDT Refused am labs, has a midline that can pull blood but does not want that done either,insisted thatit be done later. Called for pain medicine all night, always rates 10/10 regardless of whether he has had pain medicine or not. Does not appear to be in as much pain as he says he is in. * Amandeep Sheehan MD - 02/03/2025 5:17 PM CDT Images from the original note were not included. Hospitalist Progress Note Admit Date: 01/29/2025 10:31 PM Hospital Day: 5 Inpatient Clinical Course Artur Simon is a 29 year old male who is admitted for Acute on chronic pain, suspected Sickle cell crisis: -patient is resting on the bed -he reports pain is somewhat worse today -labs are stable New Symptoms Patient denies shortness of breath, abdominal pain, nausea, vomiting, diarrhea, constipation, urinary problems Medications: 0.9% NaCl injection 10-40 mL, Intracatheter, q8h 0.9% NaCl injection 3 mL, Intracatheter, q8h folic acid (Folvite) tablet 1 mg, Oral, QDAY hydrocortisone (Cortef) tablet 10 mg, Oral, QDAY hydrocortisone (Cortef) tablet 5 mg, Oral, AT BEDTIME pantoprazole EC (Protonix) tablet 40 mg, Oral, BID Medications[1] Data Intake/Output Summary (Last 24 hours) at 02/03/2025 1717 Last data filed at 02/03/2025 1413 Gross per 24 hour Intake 3290.58 ml Output 3100 ml Net 190.58 ml Recent Labs Component Name 02/03/25 0656 02/02/25 12001/31/25 2258 WBC 9.9 8.9 9.2 HGB 7.4* 7.9* 8.3* HCT 21.5* 22.8* 24.6* PLTCOUNT 282 308 303 Recent Labs Component Name 02/03/25 0656 02/02/25 0121 01/31/25 2258 SODIUM 141 141 140 POTASSIUM 3.8 3.7 4.5 CHLORIDE 108* 110* 109* CO2 26 21* 21* BUN 4* 3* 3* CREATININE 0.57* 0.56* 0.58* EGFR >90 >90 >90 GLUCOSE 89 108* 92 CALCIUM 8.0* 8.3* 8.3* Recent Labs Component Name 01/29/25 2328 12/25/24 1208 12/24/24 0059 06/30/24 1830 05/16/24 1824 05/15/24 1506 02/05/24 0859 02/04/24 1654 01/03/24 0456 12/16/23 0135 12/07/23 0152 12/06/23 1113 12/05/23 0942 03/19/23 1940 03/19/23 0924 03/09/23 1445 03/08/23 2208 ALBUMIN 3.8 3.5 3.7 - - - - - - - - - - - - - - ALB - - - - 4.0 4.2 - - - 3.9 - 3.6 3.5 - - - - - ALKPHOS 253* 317* 332* - 178* 199* - - - 203* - 159* - - - - - ALT 26 32 41 - 28 33 - - - 41 - 25 - - - - - AST 72* 48 67* - 46* 53* - - - 54* - 28 - - - - - TBILI - - - - 4.6* 6.6* - - - 3.4* - 3.4* - - - - - DBILI - - - - 0.6* - - - - - - 0.6* 0.6* - - - - TPROT 7.9 7.2 7.4 - - - - - - - - - - - - - - BNP - - - - - - - <10 - - - - - - <10 - <10 - = values in this interval not displayed. XR Chest 1Vw Portable Result Date: 01/30/2025 IMPRESSION: Borderline cardiac silhouette for age. No acute pulmonary infiltrate > Interpreting Provider: Leopoldo Martin MD on 01/30/2025 8:40 AM XR Lumbar Spine 2 or 3Vw Result Date: 01/29/2025 IMPRESSION: 1. No acute osseous abnormality. 2. Osseous stigmata of sickle cell disease. 3. Heterogeneous sclerosis of the pelvis and sacrum, possibly also related to osseous infarcts as a sequela ofsickle cell disease, similar to CT 10/30/2024. Preliminary: Roland Oliva DO01/29/2025 6:15 PM The attending radiologist has reviewed the image(s) and agrees with the content of this report. Ordered By: NOE GROSS Interpreted By: Roland Oliva DO, 01/29/2025 6:11 PM Exam BP 113/71 Pulse 78 Temp 98.2 ??F (36.8 ??C) (Oral) Resp 18 Ht 1.778 m (5' 10) Wt 108.8 kg (239 lb 14.4 oz) SpO2 94% BMI 34.42 kg/m?? General appearance: alert, no distress Heart: regular rhythm, normal S1 and S2, without murmurs, rubs or gallops Lungs: breath sounds normal and symmetric; no rales or wheezes Abdomen: soft without mass, non-tender, with normal bowel sounds Extremities: no clubbing, cyanosis or edema Midline 02/02/25919 Single-lumen Left Brachial Vein (Active) Placement Date/Time: 02/02/25919 Midline Lumen Type: Single-lumen IV Catheter Size: 20 Gauge Length (cm): 10 cm Orientation: Left Location: Brachial Vein Site Prep: Chlorhexidine Exposed Catheter (cm): 0 cm Placement Verification: Ultrasound Number of days: 1 Assessment and Plan Concern for Acute sickle cell crisis Chest pain Diffuse muscle aches Sickle cell disease Adrenal insufficiency Anemia Elevated T.bili due to above -patient went to 2 other ERs and was not admitted and came here and got admitted -he has been in and out of different hospitals and was barely out of the hospital for a month so far this year Multiple hospitalizations reviewed including [facility], [facility], [facility] -He is yet to see Hematology at [facility] since appointment in 04/2024 -He was fired by prior [facility] [employer] due to threatening behavior for not giving pain meds he asked for -he was recently discharge from our hospital on 12/31/2024 and had 4 ER visits and 1 hospitalization in between -He states currently has hematology appointment at [facility] on 02/14/2025 () -Discussed at [facility]'s -we will also contact [facility] hematology at some point this admission -consulted our java development manager here -Palliative care was asked to see, but they felt like they had not much to offer in his case -he is refusing labs today -He is asking me to increased pain meds (IV dilaudid) as per the dose and frequency he wants. Declining other modalities. -on IV fluids -resume solucortef 10mg q dialy, 5mg PO Qhs 02/02/2025: pain well controlled with current regimen. Lost IV line for few hours overnight. Hematology saw. Await for improvement in pain. 02/03/2025: LDH trending down. Hb is 7.4. on IV dilaudid Q3hrs regularly. D/w him about changing Q4 hrs from tomorrow based on how he does. DVT PPX: SCD Full Code READMISSION RISK SCORE is 28.1 at 5:17 PM 02/03/2025. Disposition: pending Due to medical issues in the assessment and plan, continued hospitalization will be required. Hospitalized Status Inpatient Patient Diagnoses Present at the Time of Admission Fluid and electrolyte disorder: acidosis requiring treatment based on CO2 Anemia requiring further monitoring Anemia: Anemia in Chronic Disease Amandeep Sheehan MD FAAFP [facility] Medicine 02/03/2025 Portions of this note may be dictated using voice recognition software. Variances in spelling and vocabulary are possible and unintentional. Not all errors are caught/corrected. Please notify the author if any discrepancies are noted or if the meaning of any statement is not clear. These grammatical oversights have no impact on the medical care provided to the patient. [1] SALINE LOCK, INSERT AND MAINTAIN AND 0.9% NaCl AND 0.9% NaCl 0.9% NaCl diphenhydrAMINE [DISCONTINUED] HYDROmorphone OR HYDROmorphone HYDROmorphone ondansetron (disintegrating) OR ondansetron oxyCODONE-acetaminophen * Amandeep Sheehan MD - 02/02/2025 6:33 PM CDT Images from the original note were not included. Hospitalist Progress Note Admit Date: 01/29/2025 10:31 PM Hospital Day: 4 Inpatient Clinical Course Artur Simon is a 29 year old male who is admitted for Acute on chronic pain, suspected Sickle cell crisis: -patient is resting on the bed -he is in very good spirits with increased dilaudid dose -no new symptoms -lost IV line for few hours overnight. New Symptoms Patient denies shortness of breath, abdominal pain, nausea, vomiting, diarrhea, constipation, urinary problems Medications: 0.9% NaCl injection 10-40 mL, Intracatheter, q8h 0.9% NaCl injection 3 mL, Intracatheter, q8h folic acid (Folvite) tablet 1 mg, Oral, QDAY hydrocortisone (Cortef) tablet 10 mg, Oral, QDAY hydrocortisone (Cortef) tablet 5 mg, Oral, AT BEDTIME pantoprazole EC (Protonix) tablet 40 mg, Oral, BID Medications[1] Data Intake/Output Summary (Last 24 hours) at 02/02/2025 1833 Last data filed at 02/02/2025 0723 Gross per 24 hour Intake 3350.37 ml Output 1200 ml Net 2150.37 ml Recent Labs Component Name 02/02/25 0121 01/31/25 2258 01/30/25 0340 WBC 8.9 9.2 12.1* HGB 7.9* 8.3* 7.4* HCT 22.8* 24.6* 21.3* PLTCOUNT 308 303 262 Recent Labs Component Name 02/02/25 0121 01/31/25 2258 01/29/25 2328 SODIUM 141 140 138 POTASSIUM 3.7 4.5 4.3 CHLORIDE 110* 109* 110* CO2 21* 21* 18* BUN 3* 3* 3* CREATININE 0.56* 0.58* 0.60* EGFR >90 >90 >90 GLUCOSE 108* 92 86 CALCIUM 8.3* 8.3* 8.5 Recent Labs Component Name 01/29/25 2328 12/25/24 1208 12/24/24 0059 06/30/24 1830 05/16/24 1824 05/15/24 1506 02/05/24 0859 02/04/24 1654 01/03/24 0456 12/16/23 0135 12/07/23 0152 12/06/23 1113 12/05/23 0942 03/19/23 1940 03/19/23 0924 03/09/23 1445 03/08/23 2208 ALBUMIN 3.8 3.5 3.7 - - - - - - - - - - - - - - ALB - - - - 4.0 4.2 - - - 3.9 - 3.6 3.5 - - - - - ALKPHOS 253* 317* 332* - 178* 199* - - - 203* - 159* - - - - - ALT 26 32 41 - 28 33 - - - 41 - 25 - - - - - AST 72* 48 67* - 46* 53* - - - 54* - 28 - - - - - TBILI - - - - 4.6* 6.6* - - - 3.4* - 3.4* - - - - - DBILI - - - - 0.6* - - - - - - 0.6* 0.6* - - - - TPROT 7.9 7.2 7.4 - - - - - - - - - - - - - - BNP - - - - - - - <10 - - - - - - <10 - <10 - = values in this interval not displayed. XR Chest 1Vw Portable Result Date: 01/30/2025 IMPRESSION: Borderline cardiac silhouette for age. No acute pulmonary infiltrate > Interpreting Provider: Leopoldo Martin MD on 01/30/2025 8:40 AM XR Lumbar Spine 2 or 3Vw Result Date: 01/29/2025 IMPRESSION: 1. No acute osseous abnormality. 2. Osseous stigmata of sickle cell disease. 3. Heterogeneous sclerosis of the pelvis and sacrum, possibly also related to osseous infarcts as a sequela ofsickle cell disease, similar to CT 10/30/2024. Preliminary: Roland Oliva DO01/29/2025 6:15 PM The attending radiologist has reviewed the image(s) and agrees with the content of this report. Ordered By: NOE GROSS Interpreted By: Roland Oliva DO, 01/29/2025 6:11 PM Exam BP 125/76 (BP Location: Right arm, Patient Position: Lying) Pulse 73 Temp 98.1 ??F (36.7 ??C) (Oral) Resp 18 Ht 1.778 m (5' 10) Wt 108.8 kg (239 lb 14.4 oz) SpO2 96% BMI 34.42 kg/m?? General appearance: alert, no distress Heart: regular rhythm, normal S1 and S2, without murmurs, rubs or gallops Lungs: breath sounds normal and symmetric; no rales or wheezes Abdomen: soft without mass, non-tender, with normal bowel sounds Extremities: no clubbing, cyanosis or edema Peripheral IV Anterior;Right (Active) Placement Date/Time: 01/30/25 0002 Size (Gauge): 22 G Orientation: Anterior;Right Number of days: 3 Midline 02/02/25919 Single-lumen Left Brachial Vein (Active) Placement Date/Time: 02/02/25919 Midline Lumen Type: Single-lumen IV Catheter Size: 20 Gauge Length (cm): 10 cm Orientation: Left Location: Brachial Vein Site Prep: Chlorhexidine Exposed Catheter (cm): 0 cm Placement Verification: Ultrasound Number of days: 0 Assessment and Plan Concern for Acute sickle cell crisis Chest pain Diffuse muscle aches Sickle cell disease Adrenal insufficiency Anemia Elevated T.bili due to above -patient went to 2 other ERs and was not admitted and came here and got admitted -he has been in and out of different hospitals and was barely out of the hospital for a month so far this year Multiple hospitalizations reviewed including [facility], [facility], [facility] -He is yet to see Hematology at [facility] since appointment in 04/2024 -He was fired by prior [facility] [employer] due to threatening behavior for not giving pain meds he asked for -he was recently discharge from our hospital on 12/31/2024 and had 4 ER visits and 1 hospitalization in between -He states currently has hematology appointment at [facility] on 02/14/2025 () -Discussed at [facility]'s -we will also contact [facility] hematology at some point this admission -consulted our java development manager here -Palliative care was asked to see, but they felt like they had not much to offer in his case -he is refusing labs today -He is asking me to increased pain meds (IV dilaudid) as per the dose and frequency he wants. Declining other modalities. -on IV fluids -resume solucortef 10mg q dialy, 5mg PO Qhs 02/02/2025: pain well controlled with current regimen. Lost IV line for few hours overnight. Hematology saw. Await for improvement in pain. DVT PPX: SCD Full Code READMISSION RISK SCORE is 28.3 at 6:33 PM 02/02/2025. Disposition: pending Due to medical issues in the assessment and plan, continued hospitalization will be required. Hospitalized Status Inpatient Patient Diagnoses Present at the Time of Admission Fluid and electrolyte disorder: acidosis requiring treatment based on CO2 Anemia requiring further monitoring Anemia: Anemia in Chronic Disease [facility] 02/02/2025 Portions of this note may be dictated using voice recognition software. Variances in spelling and vocabulary are possible and unintentional. Not all errors are caught/corrected. Please notify the author if any discrepancies are noted or if the meaning of any statement is not clear. These grammatical oversights have no impact on the medical care provided to the patient. [1] SALINE LOCK, INSERT AND MAINTAIN AND 0.9% NaCl AND 0.9% NaCl 0.9% NaCl diphenhydrAMINE [DISCONTINUED] HYDROmorphone OR HYDROmorphone HYDROmorphone ondansetron (disintegrating) OR ondansetron oxyCODONE-acetaminophen * Nisreen Jacinto, DOROTA/VIKAS - 02/02/2025 11:25 AM CDT CLINICAL NUTRITION SCREEN Screen: No Nutrition Risk Identified Pt screened r/t supplement / Gatorade order. Appetite good per nursing. Weight stable compared to 09/08/24: 239 lbs. Med/Surg History and Clinical Diagnoses: sickle cell crisis / PMH: GERD Height: 177.8 cm (5' 10) Body mass index is 34.42 kg/m??. BMI Range: Obese Class 1 IBW/lb (Calculated) Male: 166 Wt Readings from Last 5 Encounters: 01/30/25 108.8 kg (239 lb 14.4 oz) 12/24/24 110.7 kg (244 lb) 10/04/24 104.3 kg (230 lb) 09/08/24 108.5 kg (239 lb 3.2 oz) 08/19/24 104.3 kg (230 lb) Current diet order: Regular Food Allergies: No known food allergies P.O.intake for past 48 hours: No data recorded. None Skin/Wound: WDL. Stools: none documented yet MEDICATIONS FOR CURRENT ENCOUNTER: folic acid (Folvite) tablet 1 mg, Oral, QDAY pantoprazole EC (Protonix) tablet 40 mg, Oral, BID Education needed: None Nutrition recommendation: agree with current nutrition order Bowel regimen per physician. Monitor per nutrition guidelines. Risk Level: Low Nisreen Iniguez RD.,VIKAS 02/02/2025 11:26 AM [facility] [phone] * Ana Pastor RN - 02/02/2025 9:55 AM CDT Care Coordination Progress Note Expected Discharge Date: 02/04/2025 Discharge Plan: Home Chart reviewed. Plan for patient to return home at [place]. Home connections to follow, orders in place Family Support (Name and Phone): Extended Emergency Contact Information Primary Emergency Contact: JUSTINE SIMON Mobile Relation: Sister Transportation at Discharge: Medicaid Provider: READMISSION RISK SCORE is 28.7 at 9:55 AM 02/02/2025.: Name: Ana Pastor RN [phone] * Saeed Jovel RN - 02/01/2025 11:30 PM CDT Pt continues to refuse blood work, medication other than dilaudid and benadryl. Education has been given to pt frequently regarding the importance of labs and prescribed medication. * Amandeep Sheehan MD - 02/01/2025 5:55 PM CDT Images from the original note were not included. Hospitalist Progress Note Admit Date: 01/29/2025 10:31 PM Hospital Day: 3 Inpatient Clinical Course Artur Simon is a 29 year old male who is admitted for Acute on chronic pain, suspected Sickle cell crisis: -patient is resting on the bed -he is asking me why the other doctor is not here -he wants dilaudid more dose and more often -did not get labs this am New Symptoms Patient denies shortness of breath, abdominal pain, nausea, vomiting, diarrhea, constipation, urinary problems Medications: 0.9% NaCl injection 3 mL, Intracatheter, q8h acetaminophen (Tylenol) tablet 650 mg, Oral, q6h folic acid (Folvite) tablet 1 mg, Oral, QDAY hydrocortisone (Cortef) tablet 5 mg, Oral, AT BEDTIME naproxen (Naprosyn) tablet 500 mg, Oral, TID pantoprazole EC (Protonix) tablet 40 mg, Oral, BID sodium bicarbonate tablet 1,300 mg, Oral, 4X/day [COMPLETED] diphenhydrAMINE (Benadryl) injection 12.5 mg, Intravenous, Once [COMPLETED] HYDROmorphone (Dilaudid) injection 0.5 mg, Intravenous, Once [START ON 02/02/2025] hydrocortisone (Cortef) tablet 10 mg, Oral, QDAY Medications[1] Data Intake/Output Summary (Last 24 hours) at 02/01/2025 1812 Last data filed at 01/31/2025 1843 Gross per 24 hour Intake 1316.49 ml Output 400 ml Net 916.49 ml Recent Labs Component Name 01/31/25 225701/30/25 0340 12/26/24 0943 WBC 9.2 12.1* 13.0* HGB 8.3* 7.4* 8.9* HCT 24.6* 21.3* 26.5* PLTCOUNT 303 262 341 Recent Labs Component Name 01/31/25225701/29/25232712/30/24 0937 SODIUM 140 138 138 POTASSIUM 4.5 4.3 3.5 CHLORIDE 109* 110* 105 CO2 21* 18* 24 BUN 3* 3* 3* CREATININE 0.58* 0.60* 0.59* EGFR >90 >90 >90 GLUCOSE 92 86 114* CALCIUM 8.3* 8.5 8.6 Recent Labs Component Name 01/29/25 23212/25/24 1208 12/24/24 0059 06/30/24 1830 05/16/24 1824 05/15/24 1506 02/05/24 0859 02/04/24 1654 01/03/24 0456 12/16/23 0135 12/07/23 0152 12/06/23 1113 12/05/23 0942 03/19/23 1940 03/19/23 0924 03/09/23 1445 03/08/23 2208 ALBUMIN 3.8 3.5 3.7 - - - - - - - - - - - - - - ALB - - - - 4.0 4.2 - - - 3.9 - 3.6 3.5 - - - - - ALKPHOS 253* 317* 332* - 178* 199* - - - 203* - 159* - - - - - ALT 26 32 41 - 28 33 - - - 41 - 25 - - - - - AST 72* 48 67* - 46* 53* - - - 54* - 28 - - - - - TBILI - - - - 4.6* 6.6* - - - 3.4* - 3.4* - - - - - DBILI - - - - 0.6* - - - - - - 0.6* 0.6* - - - - TPROT 7.9 7.2 7.4 - - - - - - - - - - - - - - BNP - - - - - - - <10 - - - - - - <10 - <10 - = values in this interval not displayed. XR Chest 1Vw Portable Result Date: 01/30/2025 IMPRESSION: Borderline cardiac silhouette for age. No acute pulmonary infiltrate > Interpreting Provider: Leopoldo Martin MD on 01/30/2025 8:40 AM XR Lumbar Spine 2 or 3Vw Result Date: 01/29/2025 IMPRESSION: 1. No acute osseous abnormality. 2. Osseous stigmata of sickle cell disease. 3. Heterogeneous sclerosis of the pelvis and sacrum, possibly also related to osseous infarcts as a sequela ofsickle cell disease, similar to CT 10/30/2024. Preliminary: Roland Oliva, 01/29/2025 6:15 PM The attending radiologist has reviewed the image(s) and agrees with the content of this report. Ordered By: NOE GROSS Interpreted By: Roland Oliva DO, 01/29/2025 6:11 PM Exam BP 123/74 (BP Location: Left arm, Patient Position: Lying) Pulse 72 Temp 98.2 ??F (36.8 ??C) (Oral) Resp 18 Ht 1.778 m (5' 10) Wt 108.8 kg (239 lb 14.4 oz) SpO2 97% BMI 34.42 kg/m?? General appearance: alert, no distress Heart: regular rhythm, normal S1 and S2, without murmurs, rubs or gallops Lungs: breath sounds normal and symmetric; no rales or wheezes Abdomen: soft without mass, non-tender, with normal bowel sounds Extremities: no clubbing, cyanosis or edema Peripheral IV Anterior;Right (Active) Placement Date/Time: 01/30/25 0002 Size (Gauge): 22 G Orientation: Anterior;Right Number of days: 2 Assessment and Plan Concern for Acute sickle cell crisis Chest pain Diffuse muscle aches Sickle cell disease Adrenal insufficiency Anemia Elevated T.bili due to above -patient went to 2 other ERs and was not admitted and came here and got admitted -he has been in and out of different hospitals and was barely out of the hospital for a month so far this year Multiple hospitalizations [facility] including [facility], [facility], [facility] -He is yet to see Hematology at [facility] since appointment in 04/2024 -He was fired by prior [facility] [employer] due to threatening behavior for not giving pain meds he asked for -he was recently discharge from our hospital on 12/31/2024 and had 4 ER visits and 1 hospitalization in between -He states currently has hematology appointment at [facility] on 02/14/2025 () -Discussed at [facility]'s -we will also contact [facility] hematology at some point this admission -consulted our java development manager here -Palliative care was asked to see, but they felt like they had not much to offer in his case -he is refusing labs today -He is asking me to increased pain meds (IV dilaudid) as per the dose and frequency he wants. Declining other modalities. -on IV fluids -resume solucortef 10mg q dialy, 5mg PO Qhs DVT PPX: SCD Full Code READMISSION RISK SCORE is 29 at 5:56 PM 02/01/2025. Disposition: pending Due to medical issues in the assessment and plan, continued hospitalization will be required. Hospitalized Status Inpatient Patient Diagnoses Present at the Time of Admission Fluid and electrolyte disorder: acidosis requiring treatment based on CO2 Anemia requiring further monitoring Anemia: Anemia in Chronic Disease Amandeep Sheehan MD FAAFP [facility] Medicine 02/01/2025 Portions of this note may be dictated using voice recognition software. Variances in spelling and vocabulary are possible and unintentional. Not all errors are caught/corrected. Please notify the author if any discrepancies are noted or if the meaning of any statement is not clear. These grammatical oversights have no impact on the medical care provided to the patient. [1] SALINE LOCK, INSERT AND MAINTAIN AND 0.9% NaCl AND 0.9% NaCl [DISCONTINUED] HYDROmorphone OR HYDROmorphone ondansetron (disintegrating) OR ondansetron oxyCODONE-acetaminophen * Rachel Sofia MD - 01/31/2025 2:47 PM CDT Hospitalist Progress Note Chief complaint: Chest pain HPI: Patient is [age] year old male who was admitted for chest pain likely in the setting of sickle cell crises. Patient is also complaining of generalized body aches and pains. Hewas recently discharged from our hospital after being treated for sickle cell crisis. Clinical course: 01/31: Continues to rate pain at 8/10. Medications adjusted. He is now agreeable to take scheduled Tylenol and NSAIDs. Adjusted opioid dosing. Continue IV fluids. Reporting loose stools, unclear etiology. We will order stool workup. ROS: Admits to generalized aches, pains and fatigue. Denied fever, chills, hematuria or hematochezia. Physical Exam Constitutional: General: He is not in acute distress. Appearance: He is not ill-appearing, toxic-appearing or diaphoretic. Eyes: General: Right eye: No discharge. Left eye: No discharge. Cardiovascular: Rate and Rhythm: Normal rate. Pulses: Normal pulses. Heart sounds: No murmur heard. No gallop. Pulmonary: Effort: Pulmonary effort is normal. No respiratory distress. Breath sounds: No wheezing. Abdominal: General: Bowel sounds are normal. There is no distension. Tenderness: There is no abdominal tenderness. Skin: General: Skin is warm. Capillary Refill: Capillary refill takes less than 2 seconds. Neurological: Mental Status: He is alert and oriented to person, place, and time. Mental status is at baseline. Intake/Output Summary (Last 24 hours) at 01/31/2025 1517 Last data filed at 01/31/2025 1400 Gross per 24 hour Intake 2519.4 ml Output 2300 ml Net 219.4 ml Recent Labs Component Name 01/30/25 0340 12/26/24 0943 12/24/24 0059 09/14/24 1200 05/12/23 1425 05/10/23 1351 05/09/23 1645 05/08/23 1912 04/17/23 0553 04/14/23 1155 04/12/23 1331 04/11/23 1617 WBC 12.1* 13.0* 9.7 10.1 - 14.3* 13.2* 13.7* 10.7 - 13.0* 13.0* RBC 2.42* 2.95* 2.85* 2.39* - 2.44* 2.64* 2.70* 2.66* - 3.08* 3.03* HGB 7.4* 8.9* 8.4* 7.3* - 7.5* 8.1* 8.3* 8.1* - 9.5* 9.4* HCT 21.3* 26.5* 25.0* 20.6* - 21.3* 23.1* 23.8* 23.9* - 26.8* 27.7* MCV 88.0 89.8 87.7 86.2 - 87.3 87.5 88.1 89.8 - 87.0 91.4 MCHC 34.7 33.6 33.6 35.4 - 35.2 35.1 34.9 33.9 - 35.4 33.9 RDWCV 22.9* 20.5* 19.6* 20.4* - 18.6* 18.5* 19.1* 16.2* - 16.8* 17.2* PLTCOUNT 262 341 317 335 - 429* 488* 520* 309 - 473* 647* NEUTPCT 48.8 - 57.3 51.4 - - 52.4 61.5 - - - 58.1 LYMPHPCT 36.2 - 30.3 29.4 - - 35.3 26.4 - - - 30.6 BASOPHILPCT - - - - - - 0.7 0.5 - - - 0.5 GRANSIMMPCT - - - - - - 0.2 0.1 - - - 0.2 LYMPHABS 4.40 - 2.94 2.97 - 6.01* 4.65* 3.63 3.53 - 5.07* 3.97* MONOCYTABS - - - - - 1.57* - - 1.18* - 0.39 - EOSINABS - - - - - 0.72* - - 0.64* - 0.26 - BASOABS 0.09 - 0.04 0.05 - 0.14* 0.09* 0.07 0.11* - 0.13* 0.06 NRBCAUTO 1.6* 2.3* 1.2* 0.9* - 0 - - 0 - 0 - - = values in this interval not displayed. Recent Labs Component Name 01/29/25 2328 12/30/24 0937 12/26/24 0943 12/25/24 1208 12/24/24 0059 SODIUM 138 138 140 139 140 POTASSIUM 4.3 3.5 3.2* 3.6 3.5 CHLORIDE 110* 105 104 107 107 CO2 18* 24 27 22 23 BUN 3* 3* <3* <3* 3* CREATININE 0.60* 0.59* 0.60* 0.54* 0.54* GLUCOSE 86 114* 115* 124* 97 CALCIUM 8.5 8.6 8.9 8.5 8.9 ALBUMIN 3.8 - - 3.5 3.7 ALKPHOS 253* - - 317* 332* ALT 26 - - 32 41 AST 72* - - 48 67* TBIL 5.7* - - 3.9* 6.1* TPROT 7.9 - - 7.2 7.4 EGFR >90 >90 >90 >90 >90 Recent Labs Component Name 12/25/24 1208 12/24/24 0059 09/16/24 0526 MAGNESIUM 1.9 1.9 1.9 Recent Labs Component Name 09/08/24 0319 08/22/24 0629 05/16/24 0704 PHOS 2.8 2.6 2.5* Recent Labs Component Name 07/01/24 0513 COLORUA Yellow CLARITYUA Clear SPECGRAVUA 1.006 PHUA 7.0 PROTEINUA Negative BLOODUA Negative LEUKOCYTEUA Negative NITRITEUA Negative GLUCOSEUA Normal KETONEUA Negative BILIRUBINUA Negative UROBILINUA 2.0* Recent Labs Component Name 02/04/24 1654 03/19/23 0924 03/08/23 2208 BNP <10 <10 <10 Recent Labs Component Name 05/09/23 1653 04/11/23 1834 01/08/23 2232 TROPONINI <0.05 <0.05 <0.010 Recent Labs Component Name 07/01/24 0218 LACTICACID 1.262 Recent Labs Component Name 05/16/24 0704 05/15/24 2123 09/28/23 1742 INR 1.2 1.2 1.2* PT 14.9* 15.2* 15.5* No results for input(s): HGBA1C in the last 10293 hours. Recent imaging results: XR Chest 1Vw Portable Result Date: 01/30/2025 PROCEDURE: XR CHEST 1VW PORTABLE DATE/TIME OF EXAM: 01/30/2025 6:40 AM INDICATION: R07.9: Chest pain,unspecified type COMPARISON: 12/24/2024 ADDITIONAL CLINICAL INFORMATION (if provided): Ordering Provider Reason For Exam: Findings: The heart is borderline enlarged. The aorta is normal in caliber. Thelungs are now clear. There is no confluent infiltrate or effusion. There is no pneumothorax. There is no mass or adenopathy.. . IMPRESSION: Borderline cardiac silhouette for age. No acute pulmonary infiltrate > Interpreting Provider: Leopoldo Martin MD on 01/30/2025 8:40 AM XR Lumbar Spine 2 or 3Vw Result Date: 01/29/[address] [address] Examination: XR LUMB SPINE 3V Exam time: 01/29/2025 5:12 PM Clinical history: Low back pain onset 3 days ago.History of sickle cell disease Comparison: Chest radiograph 01/18/2025. CT chest, abdomen, and pelvis 10/30/2024. Technique: 3 views of the lumbar spine. Findings: There are 5 nonrib-bearing lumbar-typevertebral bodies. There are chronic appearing superior and inferior endplate changes with an H shaped configuration in keeping with history of sickle cell. There is normal alignment of the anterior and posterior elements. Facet alignment is maintained. Intervertebral disc spaces are relatively prese rved. No definite acute displaced fractures identified in the lumbar spine. There is curvilinear sclerosis within the left femoral head suggestive of osteonecrosis. Somewhat heterogeneous sclerosis of the pelvis and sacrum, similar to CT 10/30/2024. Cholecystectomy clips are noted. IMPRESSION: 1. No acute osseous abnormality. 2. Osseous stigmata of sickle cell disease. 3. Heterogeneous sclerosis of the pelvis and sacrum, possibly also related to osseous infarcts as a sequela ofsickle cell disease, similar to CT 10/30/2024. Preliminary: Roland Oliva, DO01/29/2025 6:15 PM The attending radiologist has reviewed the image(s) and agrees with the content of this report. Ordered By: NOE GROSS Interpreted By: Roland Oliva DO, 01/29/2025 6:11 PM XR Chest 1Vw Portable Result Date: 01/18/[address] [address] Examination: XR CHEST PORTABLE Exam time: 01/18/2025 4:24 PM Clinical history: Chest pain. Sickle cell disease. Comparison: 12/31/2024 AP view Technique: AP upright view Findings: Mild rotation to the left. Cardiac silhouette within normal limits. Stable slight prominence central pulmonary vasculature. No evidence of focal atelectasis or consolidation. No evidence of pleural effusion. Increased density superior aspect right humeral head appears stable and may represent avascular necrosis. Overall, no definitive radiographic evidence of active chest disease. IMPRESSION: No definitive radiographic evidence of active chest disease. Ordered By: VIVEK Ryan AUER Interpreted By: Emory Beyer MD, 01/18/2025 4:40 PM XR Chest 1Vw Result Date: 01/16/2025 EXAM DESCRIPTION: XR CHEST 1 VIEW [...] Bradley Rushing M.D. MF: CALDERON Report ID: [id number] Reading Location: [id number] XR Chest 2Vw Result Date: 01/11/2025 EXAM DESCRIPTION: XR CHEST PA LATERAL [...] Osseous stigmata of sickle cell disease is againseen. IMPRESSION: No significant change in appearance of the chest when compared to the previous [facility] radiograph dated 01/10/2025. THIS IS AN ELECTRONICALLY VERIFIED FINAL REPORT 01/11/2025 2:07 PM -Electronically signed by Gee Laboy D.O. AP: AP T: 52:07 PM Report ID: [id number] Reading Location: [id number] XR Chest 1Vw Result Date: 01/10/2025 EXAM DESCRIPTION: XR CHEST 1 VIEW REASON FOR STUDY: SOB Increased SOB today TECHNIQUE: Single radiographic view(s) of the chest. COMPARISON: Chest radiograph 01/01/2025 FINDINGS: LUNGS: Mild bilateral pulmonary edema. No focal opacity, pleural effusion, or pneumothorax. HEART/MEDIASTINUM: Cardiac si lhouette is enlarged in size. Mediastinal and hilar contours appear normal. LINES/TUBES: None. BONES: No acute osseous abnormality. IMPRESSION: Cardiomegaly with mild bilateral pulmonary edema. No pleural effusion THIS IS AN ELECTRONICALLY VERIFIED FINAL REPORT 01/10/2025 2:33 PM - Electronically signed by Anne Merchant M.D. FT: FT Report ID: [id number] Reading Location: [id number] CT Abdomen Pelvis Wo Contrast Result Date: 01/08/2025 EXAM DESCRIPTION: CT ABDOMEN PELVIS WO [...] incidental renal and adrenal lesions per consensus recommen dations based on imaging criteria. Further lab evaluation could be pursued based on clinical findings. FINDINGS: Absence of intravenous contrast reduces sensitivity for detection of pathology. Findings made within these confines. LOWER CHEST: Mild cardiomegaly. Subsegmental atelectasis. LIVER: No concerning lesions by noncontrast technique. GALLBLADDER/BILE DUCTS: No significant biliary ductal dilatation. SPLEEN: Atrophic. PANCREAS: No significant ductal dilatation or discrete lesion. ADRENALS:No measurable nodule. KIDNEYS/URETERS: No hydronephrosis. No obstructing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 02/10/2025 4:10 PM CDT 02/10/2025 4:13 PM CDT us Asm I Brandi MAHER LAB - HEMATOLOGY ORDERABLES F inal Result [facility] [address] [place] [address] * (ABNORMAL) RENAL FUNCTION PANEL (02/10/2025 4:10 PM CDT) Glucose 108(H) 70 - 99 mg/dL 02/10/2025 4:26 PM CDT -[facility] Sodium 139 136 - 145 mmol/L 02/10/2025 4:26 PM CDT -[facility] Potassium 3.1(L) 3.5 - 5.1 mmol/L 02/10/2025 4:26 PM CDT -[facility] Chloride 105 98 - 107 mmol/L 02/10/2025 4:26 PM CDT -[facility] CO2 25 22 - 29 mmol/L 02/10/2025 4:26 PM CDT -[facility] Calcium 8.4 8.4 - 10.4 mg/dL 02/10/2025 4:26 PM CDT -[facility] Anion Gap 9 6 - 16 mmol/L 02/10/2025 4:26 PM CDT -[facility] BUN <3(L) 5.3 - 18.7 mg/dL 02/10/2025 4:26 PM CDT -[facility] Creatinine 0.57(L) 0.72 - 1.25 mg/dL 02/10/2025 4:26 PM CDT -[facility] Albumin 3.6 3.1 - 4.5 gm/dL 02/10/2025 4:26 PM CDT [facility] Phosphorus 3.0 2.5 - 4.5 mg/dL 02/10/2025 4:26 PM CDT [facility] eGFR by CKD-EPI >90 >=90 mL/min/1.7 3 m2 02/10/2025 4:26 PM CDT [facility] Comment:Estimated Glomerular Filtration Rate (eGFR) calculated using the CKD-EPI Creatinine Equation (2020), per the [employer] Kid[employer] and [place] [employer]ph[employer] recommendations. Blood BLOOD SPECIMEN / Unknown Lab Venipuncture / Unknown 02/10/2025 4:10 PM CDT 02/10/2025 4:13 PM CDT Thomas Paz MD LAB - CHEMISTRY ORDERABLES Fi nal Result [facility] [address] [place] [address] * (ABNORMAL) CBC W AUTO DIFFERENTIAL (02/09/2025 9:47 AM CDT) WBC 9.2 4.0 - 10.7 x10E9/L 02/09/2025 10:03 AM CDT [facility] RBC Count 2.64(L) 4.30 - 5.80 x10E12/L 02/09/2025 10:03 AM CDT [facility] Hemoglobin 8.2(L) 13.3 - 17.5 g/dL 02/09/2025 10:03 AM CDT [facility] Hematocrit 23.4(L) 38.7 - 51.1 % 02/09/2025 10:03 AM CDT [facility] MCV 88.6 80.0 - 98.0 fL 02/09/2025 10:03 AM CDT [facility] MCH 31.1 26.7 - 33.6 pg 02/09/2025 10:03 AM CDT [facility] MCHC 35.0 31.7 - 36.3 g/dL 02/09/2025 10:03 AM CDT [facility] RDW-CV 20.4(H) 11.3 - 14.8 % 02/09/2025 10:03 AM CDT [facility] Platelet Count 280 150 - 420 x10E9/L 02/09/2025 10:03 AM CDT [facility] MPV 10.1 7.8 - 11.4 fL 02/09/2025 10:03 AM CDT [facility] Neutrophil % 45.4 41.0 - 74.0 % 02/09/2025 10:03 AM CDT [facility] Lymphocyte % 39.6 17.0 - 47.0 % 02/09/2025 10:03 AM CDT [facility] Monocyte % 11.3(H) 3.0 - 11.0 % 02/09/2025 10:03 AM CDT [facility] Eosinophil % 3.0 0.0 - 7.0 % 02/09/2025 10:03 AM CDT [facility] Basophil % 0.4 0.0 - 1.6 % 02/09/2025 10:03 AM CDT [facility] Immature Granulocytes % 0.3 0.0 - 1.0 % 02/09/2025 10:03 AM CDT [facility] Neutrophil Absolute 4.19 1.60 - 7.50 x10E9/L 02/09/2025 10:03 AM CDT [facility] Lymphocyte Absolute 3.66 1.00 - 4.40 x10E9/L 02/09/2025 10:03 AM CDT [facility] Monocyte Absolute 1.04(H) 0.15 - 1.00 x10E9/L 02/09/2025 10:03 AM CDT [facility] Eosinophil Absolute 0.28 0.00 - 0.60 x10E9/L 02/09/2025 10:03 AM CDT [facility] Basophil Absolute 0.04 0.00 - 0.13 x10E9/L 02/09/2025 10:03 AM CDT [facility] NRBC 1.1(H) <=0.0 /100 WBC 02/09/2025 10:03 AM CDT [facility] Blood BLOOD SPECIMEN / Unknown Lab Venipuncture / Unknown 02/09/2025 9:47 AM CDT 02/09/2025 9:57 AM CDT us Asm I Brandi MAHER LAB - HEMATOLOGY ORDERABLES F inal Result [facility] [address] [place] [address] * (ABNORMAL) RENAL FUNCTION PANEL (02/09/2025 9:47 AM CDT) Glucose 94 70 - 99 mg/dL 02/09/2025 10:20 AM T -[facility] Sodium 139 136 - 145 mmol/L 02/09/2025 10:20 AM T -[facility] Potassium 3.7 3.5 - 5.1 mmol/L 02/09/2025 10:20 AM T -[facility] Chloride 106 98 - 107 mmol/L 02/09/2025 10:20 AM T -[facility] CO2 25 22 - 29 mmol/L 02/09/2025 10:20 AM T [facility] Calcium 8.3(L) 8.4 - 10.4 mg/dL 02/09/2025 10:20 AM T -[facility] Anion Gap 8 6 - 16 mmol/L 02/09/2025 10:20 AM T [facility] BUN 4(L) 5.3 - 18.7 mg/dL 02/09/2025 10:20 AM [facility] Creatinine 0.57(L) 0.72 - 1.25 mg/dL 02/09/2025 10:20 AM T [facility] Albumin 3.7 3.1 - 4.5 gm/dL 02/09/2025 10:20 AM T -[facility] Phosphorus 3.1 2.5 - 4.5 mg/dL 02/09/2025 10:20 AM T [facility] eGFR by CKD-EPI >90 >=90 mL/min/1.7 3 m2 02/09/2025 10:20 AM [facility] Comment:Estimated Glomerular Filtration Rate (eGFR) calculated using the CKD-EPI Creatinine Equation (2020), per the National Kidney [employer] and [place] [employer] Neph[employer] recommendations. Blood BLOOD SPECIMEN / Unknown Lab Venipuncture / Unknown 02/09/2025 9:47 AM CDT 02/09/2025 9:57 AM CDT Thomas Paz MD LAB - CHEMISTRY ORDERABLES Fi nal Result Performing Organization Address City/[facility]/ZIP Co de Phone Number [facility] [address] [place] [phone] * (ABNORMAL) LDH BLOOD (02/07/2025 9:58 AM CDT) LDH 418(H) 125 - 220 U/L 02/07/2025 10:28 AM CDT [facility] Blood BLOOD SPECIMEN / Unknown Lab Venipuncture / Unknown 02/07/2025 9:58 AM CDT 02/07/2025 10:15 AM CDT Amandeep Sheehan MD LAB - CHEMISTRY ORD ERABLES Final Result Performing Organization Address [facility] Co de Phone Number [facility] [address] [place] [phone] * (ABNORMAL) HGB HCT PANEL (02/07/2025 9:58 AM CDT) Hemoglobin 8.3(L) 13.3 - 17.5 g/dL 02/07/2025 10:18 AM CDT -[facility] Hematocrit 24.1(L) 38.7 - 51.1 % 02/07/2025 10:18 AM CDT [facility] Blood BLOOD SPECIMEN / Unknown Lab Venipuncture / Unknown 02/07/2025 9:58 AM CDT 02/07/2025 10:14 AM CDT Amandeep Sheehan MD LAB - HEMATOLOGY OR DERABLES Final Result Performing Organization Address City/[facility]/ZIP Co de Phone Number [facility] [address] [place] [phone] * (ABNORMAL) LDH BLOOD (02/04/2025 1:17 PM CDT) Pathologist [facility] LDH 468(H) 125 - 220 U/L 02/04/2025 1:41 PM CDT [facility] Blood BLOOD SPECIMEN / Unknown Venipuncture / Unknown 02/04/2025 1:17 PM CDT 02/04/2025 1:28 PM CDT Amandeep Sheehan MD LAB - CHEMISTRY ORD ERABLES Final Result Performing Organization Address City/[facility]/ZIP Co de Phone Number [facility] [address] [place] [phone] * (ABNORMAL) HGB HCT PANEL (02/04/2025 1:17 PM CDT) [facility] Hemoglobin 8.1(L) 13.3 - 17.5 g/dL 02/04/2025 1:30 PM CDT [facility] Hematocrit 23.4(L) 38.7 - 51.1 % 02/04/2025 1:30 PM CDT [facility] Blood BLOOD SPECIMEN / Unknown Venipuncture / Unknown 02/04/2025 1:17 PM CDT 02/04/2025 1:28 PM CDT Amandeep Sheehan MD LAB - HEMATOLOGY OR DERABLES Final Result [facility] [address] [place] [address] * (ABNORMAL) DIFFERENTIAL MANUAL (02/03/2025 6:56 AM CDT) [facility] Neutrophil % 43 41 - 74 % 02/03/2025 8:20 AM CDT [facility] Lymphocyte % 46 17 - 47 % 02/03/2025 8:20 AM CDT [facility] Monocyte % 10 3 - 11 % 02/03/2025 8:20 AM CDT [facility] Eosinophil % 1 0 - 7 % 02/03/2025 8:20 AM CDT [facility] Neutrophil Absolute 4.26 1.60 - 7.50 x10E9/L 02/03/2025 8:20 AM CDT [facility] Lymphocyte Absolute 4.55(H) 1.00 - 4.40 x10E9/L 02/03/2025 8:20 AM CDT [facility] Monocyte Absolute 0.99 0.15 - 1.00 x10E9/L 02/03/2025 8:20 AM CDT [facility] Eosinophil Absolute 0.10 0.00 - 0.60 x10E9/L 02/03/2025 8:20 AM CDT [facility] RBC Morphology REVIEWED 02/03/2025 8:20 AM CDT [facility] Basophilic Stippling MODERATE(A) (none) 02/03/2025 8:20 AM CDT [facility] Polychromatic Cells MODERATE(A) (none) 02/03/2025 8:20 AM CDT [facility] Sickle Cells MODERATE(A) (none) 02/03/2025 8:20 AM CDT [facility] Target Cells MODERATE(A) (none) 02/03/2025 8:20 AM CDT -[facility] Blood BLOOD SPECIMEN / Unknown Venipuncture / Unknown 02/03/2025 6:56 AM CDT 02/03/2025 7:09 AM CDT Amandeep Sheehan MD LAB - HEMATOLOGY OR DERABLES Final Result -[facility] [address] [place] [address] * (ABNORMAL) LDH BLOOD (02/03/2025 6:56 AM CDT) LDH 410(H) 125 - 220 U/L 02/03/2025 7:23 AM CDT [facility] Blood BLOOD SPECIMEN / Unknown Venipuncture / Unknown 02/03/2025 6:56 AM CDT 02/03/2025 7:09 AM CDT us Amandeep Sheehan MD LAB - CHEMISTRY ORD ERABLES Final Result -[facility] [address] [place] [address] * (ABNORMAL) BASIC METABOLIC PANEL (CALCIUM TOTAL) (02/03/2025 6:56 AM CDT) Pathologist [facility] Glucose 89 70 - 99 mg/dL 02/03/2025 7:23 AM CDT -[facility] Sodium 141 136 - 145 mmol/L 02/03/2025 7:23 AM T -[facility] Potassium 3.8 3.5 - 5.1 mmol/L 02/03/2025 7:23 AM T [facility] Chloride 108(H) 98 - 107 mmol/L 02/03/2025 7:23 AM T -[facility] CO2 26 22 - 29 mmol/L 02/03/2025 7:23 AM T [facility] Calcium 8.0(L) 8.4 - 10.4 mg/dL 02/03/2025 7:23 AM T -[facility] Anion Gap 7 6 - 16 mmol/L 02/03/2025 7:23 AM T [facility] BUN 4(L) 5.3 - 18.7 mg/dL 02/03/2025 7:23 AM T [facility] Creatinine 0.57(L) 0.72 - 1.25 mg/dL 02/03/2025 7:23 AM T [facility] eGFR by CKD-EPI >90 >=90 mL/min/1.7 3 m2 02/03/2025 7:23 AM T [facility] Comment:Estimated Glomerular Filtration Rate (eGFR) calculated using the CKD-EPI Creatinine Equation (2020), per the National Kidney Foundation and [place] [employer] Neph[employer] recommendations. Blood BLOOD SPECIMEN / Unknown Venipuncture / Unknown 02/03/2025 6:56 AM CDT 02/03/2025 7:09 AM CDT us Amandeep Sheehan MD LAB - CHEMISTRY ORD ERABLES Final Result [facility] [address] [place] [address] * (ABNORMAL) CBC W AUTO DIFFERENTIAL (02/03/2025 6:56 AM CDT) WBC 9.9 4.0 - 10.7 x10E9/L 02/03/2025 8:20 AM CDT [facility] RBC Count 2.41(L) 4.30 - 5.80 x10E12/L 02/03/2025 8:20 AM CDT [facility] Hemoglobin 7.4(L) 13.3 - 17.5 g/dL 02/03/2025 8:20 AM CDT [facility] Hematocrit 21.5(L) 38.7 - 51.1 % 02/03/2025 8:20 AM CDT [facility] MCV 89.2 80.0 - 98.0 fL 02/03/2025 8:20 AM CDT [facility] MCH 30.7 26.7 - 33.6 pg 02/03/2025 8:20 AM CDT [facility] MCHC 34.4 31.7 - 36.3 g/dL 02/03/2025 8:20 AM CDT [facility] RDW-CV 21.9(H) 11.3 - 14.8 % 02/03/2025 8:20 AM CDT [facility] Platelet Count 282 150 - 420 x10E9/L 02/03/2025 8:20 AM CDT [facility] MPV 10.1 7.8 - 11.4 fL 02/03/2025 8:20 AM CDT [facility] NRBC 1.4(H) <=0.0 /100 WBC 02/03/2025 8:20 AM CDT [facility] Blood BLOOD SPECIMEN / Unknown Venipuncture / Unknown 02/03/2025 6:56 AM CDT 02/03/2025 7:09 AM CDT Amandeep Sheehan MD LAB - HEMATOLOGY OR DERABLES Final Result Performing Organization Address City/[facility]/ZIP Co de Phone Number [facility] [address] [place] [phone] * (ABNORMAL) LDH BLOOD (02/02/2025 1:21 AM CDT) LDH 518(H) 125 - 220 U/L 02/02/2025 1:41 AM CDT -[facility] Blood BLOOD SPECIMEN / Unknown Lab Venipuncture / Unknown 02/02/2025 1:21 AM CDT 02/02/2025 1:25 AM CDT Rachel Sofia MD LAB - CHEMISTRY ORDERABLES Final Result Performing Organization Address [facility] Co de Phone Number [facility] [address] [place] [phone] * (ABNORMAL) RETIC COUNT (02/02/2025 1:21 AM CDT) Reticulocyte Percent 15.06(H) 0.50 - 2.40 % 02/02/2025 1:49 AM CDT -[facility] Reticulocyte Absolute 0.3865(H) 0.0200 - 0.1100 x10E6/uL 02/02/2025 1:49 AM CDT -[facility] Ret-HE 31.1 29.0 - 37.9 pg 02/02/2025 1:49 AM CDT -[facility] Immature Reticulocyte Fraction 42.2(H) 1.8 - 15.2 % 02/02/2025 1:49 AM CDT -[facility] Blood BLOOD SPECIMEN / Unknown Lab Venipuncture / Unknown 02/02/2025 1:21 AM CDT 02/02/2025 1:25 AM CDT Rachel Sofia MD LAB - HEMATOLOGY ORDERABLES Stephanie l Result [facility] [address] [place] [address] * (ABNORMAL) CK BLOOD (02/02/2025 1:21 AM CDT) CK 29(L) 30 - 200 U/L 02/02/2025 1:41 AM CDT [facility] Blood BLOOD SPECIMEN / Unknown Lab Venipuncture / Unknown 02/02/2025 1:21 AM CDT 02/02/2025 1:25 AM CDT us Rachel Sofia MD LAB - CHEMISTRY ORDERABLES Final Result [facility] [address] [place] [address] * (ABNORMAL) BASIC METABOLIC PANEL (CALCIUM TOTAL) (02/02/2025 1:21 AM CDT) Glucose 108(H) 70 - 99 mg/dL 02/02/2025 1:41 AM T [facility] Sodium 141 136 - 145 mmol/L 02/02/2025 1:41 AM T -[facility] Potassium 3.7 3.5 - 5.1 mmol/L 02/02/2025 1:41 AM T [facility] Chloride 110(H) 98 - 107 mmol/L 02/02/2025 1:41 AM T -[facility] CO2 21(L) 22 - 29 mmol/L 02/02/2025 1:41 AM T -[facility] Calcium 8.3(L) 8.4 - 10.4 mg/dL 02/02/2025 1:41 AM T -[facility] Anion Gap 10 6 - 16 mmol/L 02/02/2025 1:41 AM T -[facility] BUN 3(L) 5.3 - 18.7 mg/dL 02/02/2025 1:41 AM T -[facility] Creatinine 0.56(L) 0.72 - 1.25 mg/dL 02/02/2025 1:41 AM T -[facility] eGFR by CKD-EPI >90 >=90 mL/min/1.7 3 m2 02/02/2025 1:41 AM CDT [facility] Comment:Estimated Glomerular Filtration Rate (eGFR) calculated using the CKD-EPI Creatinine Equation (2020), per the National Kidney Foundation and [place] [employer] Neph[employer] recommendations. Blood BLOOD SPECIMEN / Unknown Lab Venipuncture / Unknown 02/02/2025 1:21 AM CDT 02/02/2025 1:25 AM CDT Rachel Sofia MD LAB - CHEMISTRY ORDERABLES Final Result [facility] [address] [place] [address] * (ABNORMAL) CBC W/O DIFFERENTIAL (02/02/2025 1:21 AM CDT) WBC 8.9 4.0 - 10.7 x10E9/L 02/02/2025 1:49 AM CDT [facility] RBC Count 2.54(L) 4.30 - 5.80 x10E12/L 02/02/2025 1:49 AM CDT [facility] Hemoglobin 7.9(L) 13.3 - 17.5 g/dL 02/02/2025 1:49 AM CDT [facility] Hematocrit 22.8(L) 38.7 - 51.1 % 02/02/2025 1:49 AM CDT [facility] MCV 89.8 80.0 - 98.0 fL 02/02/2025 1:49 AM CDT [facility] MCH 31.1 26.7 - 33.6 pg 02/02/2025 1:49 AM CDT [facility] MCHC 34.6 31.7 - 36.3 g/dL 02/02/2025 1:49 AM CDT [facility] RDW-CV 22.2(H) 11.3 - 14.8 % 02/02/2025 1:49 AM CDT [facility] Platelet Count 308 150 - 420 x10E9/L 02/02/2025 1:49 AM CDT [facility] MPV 9.9 7.8 - 11.4 fL 02/02/2025 1:49 AM CDT [facility] NRBC 2.4(H) <=0.0 /100 WBC 02/02/2025 1:49 AM CDT [facility] Blood BLOOD SPECIMEN / Unknown Lab Venipuncture / Unknown 02/02/2025 1:21 AM CDT 02/02/2025 1:25 AM CDT us Rachel Sofia MD LAB - HEMATOLOGY ORDERABLES Stephanie l Result [facility] [address] [place] [address] * CARDIAC RHYTHM STRIP ORDER (02/01/2025 4:53 PM CDT) Narrative 02/01/2025 4:53 PM CDT Ordered by an unspecified provider. us Scanned Document CARDIAC SERVICES ORDERABLES Rashaun missy Result - Final * (ABNORMAL) CBC W/O DIFFERENTIAL (01/31/2025 10:58 PM CDT) WBC 9.2 4.0 - 10.7 x10E9/L 01/31/2025 11:04 PM CDT [facility] RBC Count 2.67(L) 4.30 - 5.80 x10E12/L 01/31/2025 11:04 PM CDT [facility] Hemoglobin 8.3(L) 13.3 - 17.5 g/dL 01/31/2025 11:04 PM CDT [facility] Hematocrit 24.6(L) 38.7 - 51.1 % 01/31/2025 11:04 PM CDT [facility] MCV 92.1 80.0 - 98.0 fL 01/31/2025 11:04 PM CDT [facility] MCH 31.1 26.7 - 33.6 pg 01/31/2025 11:04 PM CDT [facility] MCHC 33.7 31.7 - 36.3 g/dL 01/31/2025 11:04 PM CDT [facility] RDW-CV 23.9(H) 11.3 - 14.8 % 01/31/2025 11:04 PM CDT [facility] Platelet Count 303 150 - 420 x10E9/L 01/31/2025 11:04 PM CDT [facility] MPV 10.5 7.8 - 11.4 fL 01/31/2025 11:04 PM CDT [facility] NRBC 2.9(H) <=0.0 /100 WBC 01/31/2025 11:04 PM CDT [facility] Blood BLOOD SPECIMEN / Unknown Lab Venipuncture / Unknown 01/31/2025 10:58 PM CDT 01/31/2025 11:00 PM CDT Oren Bush MD LAB - HEMATOLOGY ORDERABLE S Final Result [facility] [address] [place] [address] * (ABNORMAL) BASIC METABOLIC PANEL (CALCIUM TOTAL) (01/31/2025 10:58 PM CDT) Pathologist [facility] Glucose 92 70 - 99 mg/dL 01/31/2025 11:15 PM CDT [facility] Sodium 140 136 - 145 mmol/L 01/31/2025 11:15 PM CDT [facility] Potassium 4.5 3.5 - 5.1 mmol/L 01/31/2025 11:15 PM CDT [facility] Chloride 109(H) 98 - 107 mmol/L 01/31/2025 11:15 PM CDT [facility] CO2 21(L) 22 - 29 mmol/L 01/31/2025 11:15 PM CDT [facility] Calcium 8.3(L) 8.4 - 10.4 mg/dL 01/31/2025 11:15 PM CDT [facility] Anion Gap 10 6 - 16 mmol/L 01/31/2025 11:15 PM CDT [facility] BUN 3(L) 5.3 - 18.7 mg/dL 01/31/2025 11:15 PM CDT [facility] Creatinine 0.58(L) 0.72 - 1.25 mg/dL 01/31/2025 11:15 PM CDT [facility] eGFR by CKD-EPI >90 >=90 mL/min/1.7 3 m2 01/31/2025 11:15 PM CDT [facility] Comment:Estimated Glomerular Filtration Rate (eGFR) calculated using the CKD-EPI Creatinine Equation (2020), per the [employer] and [place] [employer] recommendations. Blood BLOOD SPECIMEN / Unknown Lab Venipuncture / Unknown 01/31/2025 10:58 PM CDT 01/31/2025 11:00 PM CDT Oren Bush MD LAB - CHEMISTRY ORDERABLES Final Result [facility] [address] [place] [address] * XR Chest 1Vw Portable (01/30/2025 6:39 AM CDT) Anatomical Region Laterality Modality Chest Computed Radiogr aphy 01/30/2025 8:39 AM CDT Impressions 01/30/2025 8:40 AM CDT IMPRESSION: Borderline cardiac silhouette for age. No acute pulmonary infiltrate > Interpreting Provider: Leopoldo Martin MD on 01/30/2025 8:40 AM Narrative 01/30/2025 8:40 AM CDT PROCEDURE: XR CHEST 1VW PORTABLE DATE/TIME OF EXAM: 01/30/2025 6:40 AM INDICATION: R07.9: Chest pain, unspecified type COMPARISON: 12/24/2024 ADDITIONAL CLINICAL INFORMATION (if provided): Ordering Provider Reason For Exam: Findings: The heart is borderline enlarged. The aorta is normal in caliber. The lungs are now clear. There is no confluent infiltrate or effusion. There is no pneumothorax. There is no mass or adenopathy.. . Procedure Note Leopoldo Martin MD - 01/30/2025 PROCEDURE: XR CHEST 1VW PORTABLE DATE/TIME OF EXAM: 01/30/2025 6:40 AM INDICATION: R07.9: Chest pain, unspecified type COMPARISON: 12/24/2024 ADDITIONAL CLINICAL INFORMATION (if provided): Ordering Provider Reason For Exam: Findings: The heart is borderline enlarged. The aorta is normal in caliber. Thelungs are now clear. There is no confluent infiltrate or effusion. There isno pneumothorax. There is no mass or adenopathy.. . IMPRESSION: Borderline cardiac silhouette for age. No acute pulmonary infiltrate > Interpreting Provider: Leopoldo Martin MD on 01/30/2025 8:40 AM Mohamud Moore MD DIAGNOSTIC IMAGING ORDERABLES F inal Result * (ABNORMAL) SLIDE SCAN HEMATOLOGY (01/30/2025 3:40 AM CDT) RBC Morphology REVIEWED 01/30/2025 5:30 AM CDT [facility] Macrocytosis MANY(A) (none) 01/30/2025 5:30 AM CDT [facility] Polychromatic Cells MODERATE(A) (none) 01/30/2025 5:30 AM CDT [facility] Schistocytes MODERATE(A) (none) 01/30/2025 5:30 AM CDT [facility] Sickle Cells MODERATE(A) (none) 01/30/2025 5:30 AM CDT [facility] Blood BLOOD SPECIMEN / Unknown Lab Venipuncture / Unknown 01/30/2025 3:40 AM CDT 01/30/2025 3:43 AM CDT Mohamud Moore MD LAB - HEMATOLOGY ORDERABLES Fin al Result [facility] [address] [place] [address] * (ABNORMAL) RETIC COUNT (01/30/2025 3:40 AM CDT) Reticulocyte Percent 15.30(H) 0.50 - 2.40 % 01/30/2025 5:30 AM CDT [facility] Reticulocyte Absolute 0.3703(H) 0.0200 - 0.1100 x10E6/uL 01/30/2025 5:30 AM CDT [facility] Ret-HE 33.2 29.0 - 37.9 pg 01/30/2025 5:30 AM CDT [facility] Immature Reticulocyte Fraction 42.5(H) 1.8 - 15.2 % 01/30/2025 5:30 AM CDT [facility] Blood BLOOD SPECIMEN / Unknown Lab Venipuncture / Unknown 01/30/2025 3:40 AM CDT 01/30/2025 3:43 AM CDT Mohamud Moore MD LAB - HEMATOLOGY ORDERABLES Fin al Result Performing Organization Address [facility] Co de Phone Number [facility] [address] [place] [phone] * TROPONIN-I HIGH SENSITIVE REFLEX 1HOUR (01/30/2025 3:40 AM CDT) Pathologist [facility] Troponin I High Sensitive <3 <=35 ng/L 01/30/2025 4:54 AM CDT [facility] Delta Troponin I HS 01/30/2025 4:54 AM CDT [facility] Comment:Delta value intentio tyrell not calculated. Baseline to 1 hour specimen collection interval exceeded. Blood BLOOD SPECIMEN / Unknown Lab Venipuncture / Unknown 01/30/2025 3:40 AM CDT 01/30/2025 4:33 AM CDT Mohamud Moore MD LAB - CHEMISTRY ORDERABLES Stephanie l Result Performing Organization Address [facility]/ZIP Co de Phone Number [facility] [address] [place] [phone] * (ABNORMAL) CBC W AUTO DIFFERENTIAL (01/30/2025 3:40 AM CDT) Pathologist [facility] WBC 12.1(H) 4.0 - 10.7 x10E9/L 01/30/2025 5:30 AM CDT [facility] RBC Count 2.42(L) 4.30 - 5.80 x10E12/L 01/30/2025 5:30 AM CDT [facility] Hemoglobin 7.4(L) 13.3 - 17.5 g/dL 01/30/2025 5:30 AM CDT [facility] Hematocrit 21.3(L) 38.7 - 51.1 % 01/30/2025 5:30 AM CDT [facility] MCV 88.0 80.0 - 98.0 fL 01/30/2025 5:30 AM CDT [facility] MCH 30.6 26.7 - 33.6 pg 01/30/2025 5:30 AM CDT [facility] MCHC 34.7 31.7 - 36.3 g/dL 01/30/2025 5:30 AM CDT [facility] RDW-CV 22.9(H) 11.3 - 14.8 % 01/30/2025 5:30 AM CDT [facility] Platelet Count 262 150 - 420 x10E9/L 01/30/2025 5:30 AM CDT [facility] MPV 10.1 7.8 - 11.4 fL 01/30/2025 5:30 AM CDT [facility] Neutrophil % 48.8 41.0 - 74.0 % 01/30/2025 5:30 AM CDT [facility] Lymphocyte % 36.2 17.0 - 47.0 % 01/30/2025 5:30 AM CDT [facility] Monocyte % 12.0(H) 3.0 - 11.0 % 01/30/2025 5:30 AM CDT [facility] Eosinophil % 1.7 0.0 - 7.0 % 01/30/2025 5:30 AM CDT [facility] Basophil % 0.7 0.0 - 1.6 % 01/30/2025 5:30 AM CDT [facility] Immature Granulocytes % 0.6 0.0 - 1.0 % 01/30/2025 5:30 AM CDT [facility] Neutrophil Absolute 5.91 1.60 - 7.50 x10E9/L 01/30/2025 5:30 AM CDT [facility] Lymphocyte Absolute 4.40 1.00 - 4.40 x10E9/L 01/30/2025 5:30 AM CDT -[facility] Monocyte Absolute 1.46(H) 0.15 - 1.00 x10E9/L 01/30/2025 5:30 AM CDT -[facility] Eosinophil Absolute 0.21 0.00 - 0.60 x10E9/L 01/30/2025 5:30 AM CDT -[facility] Basophil Absolute 0.09 0.00 - 0.13 x10E9/L 01/30/2025 5:30 AM CDT -[facility] NRBC 1.6(H) <=0.0 /100 WBC 01/30/2025 5:30 AM CDT [facility] Blood BLOOD SPECIMEN / Unknown Lab Venipuncture / Unknown 01/30/2025 3:40 AM CDT 01/30/2025 3:43 AM CDT us Mohamud Moore MD LAB - HEMATOLOGY ORDERABLES Fin al Result [facility] [address] [place] [address] * (ABNORMAL) COMPREHENSIVE METABOLIC PANEL (01/29/2025 11:28 PM CDT) Glucose 86 70 - 99 mg/dL 01/29/2025 11:48 PM CDT [facility] Sodium 138 136 - 145 mmol/L 01/29/2025 11:48 PM CDT [facility] Potassium 4.3 3.5 - 5.1 mmol/L 01/29/2025 11:48 PM CDT [facility] Chloride 110(H) 98 - 107 mmol/L 01/29/2025 11:48 PM CDT [facility] CO2 18(L) 22 - 29 mmol/L 01/29/2025 11:48 PM CDT [facility] Calcium 8.5 8.4 - 10.4 mg/dL 01/29/2025 11:48 PM CDT [facility] Anion Gap 10 6 - 16 mmol/L 01/29/2025 11:48 PM CDT [facility] BUN 3(L) 5.3 - 18.7 mg/dL 01/29/2025 11:48 PM CDT [facility] Creatinine 0.60(L) 0.72 - 1.25 mg/dL 01/29/2025 11:48 PM CDT [facility] Alkaline Phosphatase 253(H) 40 - 150 U/L 01/29/2025 11:48 PM CDT [facility] ALT 26 6 - 57 U/L 01/29/2025 11:48 PM CDT [facility] AST 72(H) 10 - 48 U/L 01/29/2025 11:48 PM T [facility] Protein Total 7.9 6.4 - 8.3 gm/dL 01/29/2025 11:48 PM CDT [facility] Albumin 3.8 3.1 - 4.5 gm/dL 01/29/2025 11:48 PM CDT [facility] Bilirubin Total 5.7(H) 0.2 - 1.2 mg/dL 01/29/2025 11:48 PM [facility] eGFR by CKD-EPI >90 >=90 mL/min/1.7 3 m2 01/29/2025 11:48 PM [facility] Comment:Estimated Glomerular Filtration Rate (eGFR) calculated using the CKD-EPI Creatinine Equation (2020), per the [employer] and [place] [employer] recommendations. Blood BLOOD SPECIMEN / Unknown Venipuncture / Unknown 01/29/2025 11:28 PM CDT 01/29/2025 11:28 PM CDT us Mohamud Moore MD LAB - CHEMISTRY ORDERABLES Stephanie bejarano Result -[facility] [address] [place] [address] * TROPONIN-I HIGH SENSITIVE BASELINE + 1HR (01/29/2025 11:28 PM CDT) Troponin I High Sensitive <3 <=35 ng/L 01/29/2025 11:52 PM CDT -[facility] Blood BLOOD SPECIMEN / Unknown Venipuncture / Unknown 01/29/2025 11:28 PM CDT 01/29/2025 11:28 PM CDT Mohamud Moore MD LAB - CHEMISTRY ORDERABLES Stephanie l Result Performing Organization Address [facility]/ZIP Co de Phone Number [facility] [address] [place] [address] * EKG 12-Lead (01/29/2025 10:02 PM CDT) Ventricular Rate 79 BPM [facility] Atrial Rate 79 BPM [facility] P-R Interval 200 ms [facility] QRS Duration ms 90 ms [facility] Q-T Interval ms 396 ms [facility] QTC Calculation (Bezet) 454 ms [facility] Calculated P Dalton 32 degrees [facility] Calculated R Dalton 17 degrees [facility] Calculated T Dalton 20 degrees [facility] Interpretation EKG Normal sinus rhythm Normal ECG When compared with ECG of 24-DEC-2024 11:49, No significant change was found Confirmed by MK ROBERTSON MD ([id number]) on 01/31/2025 3:38:24 PM [facility] 01/29/2025 10:0 2 PM CDT 01/31/2025 3:38 PM CDT us Mohamud Moore MD ECG ORDERABLES Edited Result - Final Performing Organization Address [facility] Co de Phone Number [facility] documented in this encounter Visit Diagnoses Diagnosis 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 Chest pain, unspecified type Sickle cell pain crisis (HCC) Hb-SS disease with crisis Sickle cell disease with crisis and other complication (HCC) Sickle cell crisis Hb-SS disease with crisis Chest pain, unspecified type * Assessment & Plan Note - Pietro Pope MD - 02/02/2025 8:14 AM CDT Associated Problem(s): Sickle cell pain crisis (HCC) (Resolved 02/14/2025) I agree with plans for folic acid supplementation IV narcotics and aggressive hydration Follow up with outpatient hematology at discharge Encouraged him leukocytosis is overall mild and now normal without any evidence infection consistent with improvement Follow up at [facility] at discharge Please re-consult p.r.n. * Assessment & Plan Note - Pietro Pope MD - 02/02/2025 8:14 AM CDT Associated Problem(s): Chest pain, unspecified type Most consistent with sickle cell crisis no evidence chest syndrome at present time Continue clinical follow up at present Management of sickle cell diseases about Patient states he is usually controlled on q.3 hours Dilaudid Increased pain management to Dilaudid 2 mg IV q.3 hours p.r.n. Continue oxycodone/acetaminophen cm ordered Benadryl PRN pruritus documented in this encounter Administered Medications Inactive Administered Medications - up to 3 most recent administrations Medication Order MAR Action Action Date Dose Rate Site 0.9% NaCl injection 1-10 mL 1-10 mL, Intracatheter, PRN, Other, peripheral line flush, Starting on 01/29/25 at 2217, Until 02/13/25 at 2301, Flush peripheral IV catheter with 1-10 mL of normal saline before and after medications and prn to clear blood from the line or to verify patency. 0.9% NaCl injection 10-40 mL 10-40 mL, Intracatheter, EVERY 8 HOURS, First dose on 02/02/25 at 1000, Until Discontinued, Flush each lumen of mid-line with 10ml NS IVP every 8 hours (regardless of continuous IV infusion). Flushing may be contraindicated if concentrated drips are infusing. $ Given 02/13/2025 4:25 AM CDT 10 mL $ Given 02/12/2025 8:39 PM CDT 10 mL $ Given 02/10/2025 1:32 PM CDT 10 mL 0.9% NaCl injection 10-40 mL 10-40 mL, Intravenous, PRN, Other, mid-line flush, Starting on Fri02/02/25 at 0916, Until 02/13/25 at 2301, Flush each lumen of mid-line with 10ml NS IVP before and after medication/solution administration, before and after blood product administration, when obtaining blood sample, discard 5-10ml blood, then obtain sample. Upon completion, pulse flush with 20ml sterile NS IVP and PRN to determine patency. 0.9% NaCl injection 3 mL 3 mL, Intracatheter, EVERY 8 HOURS, First dose on 01/29/25 at 2300, Until Discontinued, Flush peripheral IV catheter with 3 mL of normal saline every 8 hours. $ Given 02/13/2025 4:25 AM CDT 3 mL $ Given 02/12/2025 8:39 PM CDT 3 mL $ Given 02/11/2025 1:26 PM CDT 3 mL diphenhydrAMINE (Benadryl) injection 12.5 mg 12.5 mg, Intravenous, ONCE, 1 dose, On 02/01/25 at 0545, Administer IV at a rate not exceeding 25 mg/min. Can dilute in 5-10 mL NS as needed for patient comfort. $ Given 02/01/2025 5:45 AM CDT 12.5 mg diphenhydrAMINE (Benadryl) injection 25 mg 25 mg, Intravenous, NOW, 1 dose, On 01/29/25 at 2230, Administer IV at a rate not exceeding 25 mg/min. Can dilute in 5-10 mL NS as needed for patient comfort. $ Given 01/30/2025 12:02 AM CD T 25 mg diphenhydrAMINE (Benadryl) injection 25 mg 25 mg, Intravenous, NOW, 1 dose, On 01/30/25 at 0300, Administer IV at a rate not exceeding 25 mg/min. Can dilute in 5-10 mL NS as needed for patient comfort. $ Given 01/30/2025 3:08 AM CDT 25 mg diphenhydrAMINE (Benadryl) injection 25 mg 25 mg, Intravenous, EVERY 6 HOURS PRN, Itching, Starting on Fri02/01/25 at 1920, Until Fri02/13/25 at 2301, Administer IV at a rate not exceeding 25 mg/min. Can dilute in 5-10 mL NS as needed for patient comfort. $ Given 02/13/2025 6:05 PM CDT 25 mg $ Given 02/13/2025 12:00 PM CDT 25 mg $ Given 02/13/2025 6:01 AM CDT 25 mg folic acid (Folvite) tablet 1 mg 1 mg, Oral, DAILY, First dose on Fri01/30/25 at 0900, Until Discontinued $ Given 02/12/2025 8:15 AM CDT 1 mg $ Given 02/10/2025 9:36 AM CDT 1 mg $ Given 02/09/2025 8:44 AM CDT 1 mg gabapentin (Neurontin) capsule 300 mg 300 mg, Oral, 3 TIMES DAILY, First dose on Fri02/08/25 at 1400, Until Discontinued $ Given 02/09/2025 1:13 PM CDT 300 mg $ Given 02/09/2025 8:44 AM CDT 300 mg $ Given 02/08/2025 2:43 PM CDT 300 mg gabapentin (Neurontin) capsule 600 mg 600 mg, Oral, 3 TIMES DAILY, First dose (after last modification) on Fri02/09/25 at 2100, Until Discontinued $ Given 02/10/2025 9:36 AM CDT 600 mg $ Given 02/09/2025 9:32 PM CDT 600 mg gabapentin (Neurontin) capsule 900 mg 900 mg, Oral, 3 TIMES DAILY, First dose (after last modification) on Fri02/10/25 at 1400, Until Discontinued $ Given 02/10/2025 1:30 PM CDT 900 mg hydrocortisone (Cortef) tablet 10 mg 10 mg, Oral, DAILY, First dose on Fri02/02/25 at 0900, Until Discontinued $ Given 02/07/2025 7:49 AM CDT 10 mg $ Given 02/05/2025 8:48 AM CDT 10 mg $ Given 02/04/2025 10:04 AM CDT 10 mg hydrocortisone (Cortef) tablet 5 mg 5 mg, Oral, AT BEDTIME, First dose on Fri02/01/25 at 2100, Until Discontinued $ Given 02/07/2025 8:21 PM CDT 5 mg $ Given 02/06/2025 11:04 PM CDT 5 mg $ Given 02/05/2025 10:13 PM CDT 5 mg HYDROmorphone (Dilaudid) injection 0.5 mg 0.5 mg, Intravenous, Once, 1 dose, On 01/31/25 at 2315, Patient preference for lesser PRN pain meds may be honored when the patient requests a less strong medication, a lower dose, or a less intrusive route of administration when the lesser drug, dose and route have been ordered for the patient. This patient request must be documented in the MAR. If both oral and IV options are ordered for the same pain severity, give oral first unless patient cannot tolerate oral intake. $ Given 01/31/2025 11:13 PM CDT 0.5 mg HYDROmorphone (Dilaudid) injection 0.8 mg 0.8 mg, Intravenous, EVERY 3 HOURS PRN, Severe Pain, Starting on 01/30/25 at 0619, Until 01/30/25 at 1435, Patient preference for lesser PRN pain meds may be honored when the patient requests a less strong medication, a lower dose, or a less intrusive route of administration when the lesser drug, dose and route have been ordered for the patient. This patient request must be documented in the MAR. If both oral and IV options are ordered for the same pain severity, give oral first unless patient cannot tolerate oral intake., Allow a repeat dose for severe pain? No $ Given 01/30/2025 1:30 PM CDT 0.8 mg $ Given 01/30/2025 10:31 AM CDT 0.8 mg $ Given 01/30/2025 6:33 AM CDT 0.8 mg HYDROmorphone (Dilaudid) injection 1 mg 1 mg, Intravenous, NOW, 1 dose, On 01/30/25 at 0130, Patient preference for lesser PRN pain meds may be honored when the patient requests a less strong medication, a lower dose, or a less intrusive route of administration when the lesser drug, dose and route have been ordered for the patient. This patient request must be documented in the MAR. If both oral and IV options are ordered for the same pain severity, give oral first unless patient cannot tolerate oral intake. $ Given 01/30/2025 1:39 AM CDT 1 mg HYDROmorphone (Dilaudid) injection 1 mg 1 mg, Intravenous, NOW, 1 dose, On 01/30/25 at 0300, Patient preference for lesser PRN pain meds may be honored when the patient requests a less strong medication, a lower dose, or a less intrusive route of administration when the lesser drug, dose and route have been ordered for the patient. This patient request must be documented in the MAR. If both oral and IV options are ordered for the same pain severity, give oral first unless patient cannot tolerate oral intake. $ Given 01/30/2025 3:07 AM CDT 1 mg HYDROmorphone (Dilaudid) injection 1 mg 1 mg, Intravenous, NOW, 1 dose, On 01/30/25 at 0515, Patient preference for lesser PRN pain meds may be honored when the patient requests a less strong medication, a lower dose, or a less intrusive route of administration when the lesser drug, dose and route have been ordered for the patient. This patient request must be documented in the MAR. If both oral and IV options are ordered for the same pain severity, give oral first unless patient cannot tolerate oral intake. $ Given 01/30/2025 5:14 AM CDT 1 mg HYDROmorphone (Dilaudid) injection 1 mg 1 mg, Intravenous, EVERY 3 HOURS PRN, Severe Pain, Starting on 01/30/25 at 1600, Until 01/30/25 at 1728, Patient preference for lesser PRN pain meds may be honored when the patient requests a less strong medication, a lower dose, or a less intrusive route of administration when the lesser drug, dose and route have been ordered for the patient. This patient request must be documented in the MAR. If both oral and IV options are ordered for the same pain severity, give oral first unless patient cannot tolerate oral intake., Allow a repeat dose for severe pain? No $ Given 01/30/2025 4:13 PM CDT 1 mg HYDROmorphone (Dilaudid) injection 1 mg 1 mg, Intravenous, ONCE, 1 dose, On 01/30/25 at 1600, Patient preference for lesser PRN pain meds may be honored when the patient requests a less strong medication, a lower dose, or a less intrusive route of administration when the lesser drug, dose and route have been ordered for the patient. This patient request must be documented in the MAR. If both oral and IV options are ordered for the same pain severity, give oral first unless patient cannot tolerate oral intake. $ Given 01/30/2025 3:34 PM CDT 1 mg HYDROmorphone (Dilaudid) injection 1 mg 1 mg, Intravenous, Once, 1 dose, On Fri01/31/25 at 0145, Patient preference for lesser PRN pain meds may be honored when the patient requests a less strong medication, a lower dose, or a less intrusive route of administration when the lesser drug, dose and route have been ordered for the patient. This patient request must be documented in the MAR. If both oral and IV options are ordered for the same pain severity, give oral first unless patient cannot tolerate oral intake. $ Given 01/31/2025 1:41 AM CDT 1 mg HYDROmorphone (Dilaudid) injection 1 mg 1 mg, Intravenous, EVERY 6 HOURS PRN, Severe Pain, Starting on Fara 02/10/25 at 1058, Until Fri02/11/25 at 1305, Patient preference for lesser PRN pain meds may be honored when the patient requests a less strong medication, a lower dose, or a less intrusive route of administration when the lesser drug, dose and route have been ordered for the patient. This patient request must be documented in the MAR. If both oral and IV options are ordered for the same pain severity, give oral first unless patient cannot tolerate oral intake. $ Given 02/11/2025 10:30 AM CDT 1 mg $ Given 02/11/2025 4:32 AM CDT 1 mg $ Given 02/10/2025 10:22 PM CDT 1 mg HYDROmorphone (Dilaudid) injection 1 mg 1 mg, Intravenous, Once, 1 dose, On Fri02/11/25 at 0000, Patient preference for lesser PRN pain meds may be honored when the patient requests a less strong medication, a lower dose, or a less intrusive route of administration when the lesser drug, dose and route have been ordered for the patient. This patient request must be documented in the MAR. If both oral and IV options are ordered for the same pain severity, give oral first unless patient cannot tolerate oral intake. $ Given 02/10/2025 11:52 PM CDT 1 mg HYDROmorphone (Dilaudid) injection 1.2 mg 1.2 mg, Intravenous, EVERY 4 HOURS PRN, Severe Pain, Starting on 01/30/25 at 1728, Until 01/31/25 at 1411, Patient preference for lesser PRN pain meds may be honored when the patient requests a less strong medication, a lower dose, or a less intrusive route of administration when the lesser drug, dose and route have been ordered for the patient. This patient request must be documented in the MAR. If both oral and IV options are ordered for the same pain severity, give oral first unless patient cannot tolerate oral intake., Allow a repeat dose for severe pain? No $ Given 01/31/2025 11:25 AM CDT 1.2 mg $ Given 01/31/2025 7:26 AM CDT 1.2 mg $ Given 01/31/2025 3:00 AM CDT 1.2 mg HYDROmorphone (Dilaudid) injection 1.5 mg 1.5 mg, Intravenous, EVERY 4 HOURS PRN, Severe Pain, Starting on 01/31/25 at 1410, Until 02/05/25 at 1635, Patient preference for lesser PRN pain meds may be honored when the patient requests a less strong medication, a lower dose, or a less intrusive route of administration when the lesser drug, dose and route have been ordered for the patient. This patient request must be documented in the MAR. If both oral and IV options are ordered for the same pain severity, give oral first unless patient cannot tolerate oral intake., Allow a repeat dose for severe pain? No $ Given 02/04/2025 6:57 AM CDT 1.5 mg $ Given 02/01/2025 8:19 PM CDT 1.5 mg $ Given 02/01/2025 4:14 PM CDT 1.5 mg HYDROmorphone (Dilaudid) injection 1.5 mg 1.5 mg, Intravenous, EVERY 4 HOURS PRN, Severe Pain, Starting on 02/09/25 at 1322, Until Fara 02/10/25 at 1059, Patient preference for lesser PRN pain meds may be honored when the patient requests a less strong medication, a lower dose, or a less intrusive route of administration when the lesser drug, dose and route have been ordered for the patient. This patient request must be documented in the MAR. If both oral and IV options are ordered for the same pain severity, give oral first unless patient cannot tolerate oral intake. $ Given 02/10/2025 9:36 AM CDT 1.5 mg $ Given 02/10/2025 5:29 AM CDT 1.5 mg $ Given 02/10/2025 1:26 AM CDT 1.5 mg HYDROmorphone (Dilaudid) injection 2 mg 2 mg, Intravenous, NOW, 1 dose, On 01/29/25 at 2230, Patient preference for lesser PRN pain meds may be honored when the patient requests a less strong medication, a lower dose, or a less intrusive route of administration when the lesser drug, dose and route have been ordered for the patient. This patient request must be documented in the MAR. If both oral and IV options are ordered for the same pain severity, give oral first unless patient cannot tolerate oral intake.Indications:Pain,Per Ed provider verbal order, DR. MOORE $ Given 01/30/2025 12:03 AM CDT 2 mg HYDROmorphone (Dilaudid) injection 2 mg 2 mg, Intravenous, EVERY 3 HOURS PRN, Moderate Pain, Starting on 02/01/25 at 1919, Until 02/05/25 at 1635, Patient preference for lesser PRN pain meds may be honored when the patient requests a less strong medication, a lower dose, or a less intrusive route of administration when the lesser drug, dose and route have been ordered for the patient. This patient request must be documented in the MAR. If both oral and IV options are ordered for the same pain severity, give oral first unless patient cannot tolerate oral intake. $ Given 02/05/2025 2:36 PM CDT 2 mg $ Given 02/05/2025 11:47 AM CDT 2 mg $ Given 02/05/2025 8:47 AM CDT 2 mg HYDROmorphone (Dilaudid) injection 2 mg 2 mg, Intravenous, EVERY 4 HOURS PRN, Severe Pain, Starting on 02/05/25 at 1635, Until 02/09/25 at 1322, Patient preference for lesser PRN pain meds may be honored when the patient requests a less strong medication, a lower dose, or a less intrusive route of administration when the lesser drug, dose and route have been ordered for the patient. This patient request must be documented in the MAR. If both oral and IV options are ordered for the same pain severity, give oral first unless patient cannot tolerate oral intake. $ Given 02/09/2025 1:14 PM C DT 2 mg $ Given 02/09/2025 8:53 AM CDT 2 mg $ Given 02/09/2025 5:10 AM CDT 2 mg HYDROmorphone (Dilaudid) injection 2 mg 2 mg, Intravenous, EVERY 4 HOURS PRN, Severe Pain, Starting on 02/11/25 at 1305, Until 02/13/25 at 2301, Patient preference for lesser PRN pain meds may be honored when the patient requests a less strong medication, a lower dose, or a less intrusive route of administration when the lesser drug, dose and route have been ordered for the patient. This patient request must be documented in the MAR. If both oral and IV options are ordered for the same pain severity, give oral first unless patient cannot tolerate oral intake. $ Given 02/13/2025 7:50 PM C DT 2 mg $ Given 02/13/2025 4:00 PM CDT 2 mg $ Given 02/13/2025 12:00 PM CDT 2 mg ketorolac (Toradol) injection 30 mg 30 mg, Intravenous, NOW, 1 dose, On 01/29/25 at 2230, Patient preference for lesser PRN pain meds may be honored when the patient requests a less strong medication, a lower dose, or a less intrusive route of administration when the lesser drug, dose and route have been ordered for the patient. This patient request must be documented in the MAR. If both oral and IV options are ordered for the same pain severity, give oral first unless patient cannot tolerate oral intake. $ Given 01/30/2025 12:02 AM CDT 30 mg lactated ringers infusion at 100 mL/hr, Intravenous, CONTINUOUS, Starting on 01/29/25 at 2315, Until 02/13/25 at 2301 Current Rate 02/13/2025 5:51 AM CDT 100 mL/hr $ New Bag/Syringe 02/13/2025 12:25 AM CDT 100 m L/hr Current Rate 02/12/2025 10:17 PM CDT 100 mL/hr melatonin tablet 6 mg 6 mg, Oral, AT BEDTIME, First dose on Fri02/08/25 at 1800, Until Discontinued $ Given 02/08/2025 5:30 PM CDT 6 mg melatonin tablet 9 mg 9 mg, Oral, AT BEDTIME, First dose (after last modification) on Fri02/09/25 at 1800, Until Discontinued $ Given 02/10/2025 5:20 PM CDT 9 mg $ Given 02/09/2025 7:33 PM CDT 9 mg naproxen (Naprosyn) tablet 500 mg 500 mg, Oral, 3 TIMES DAILY, First dose on Fri01/30/25 at 1445, Until Discontinued, Take with food Patient preference for lesser PRN pain meds may be honored when the patient requests a less strong medication, a lower dose, or a less intrusive route of administration when the lesser drug, dose and route have been ordered for the patient. This patient request must be documented in the MAR. If both oral and IV options are ordered for the same pain severity, give oral first unless patient cannot tolerate oral intake. $ Given 02/01/2025 10:13 AM CDT 500 mg $ Given 01/31/2025 7:58 PM CDT 500 mg $ Given 01/31/2025 2:15 PM CDT 500 mg ondansetron (disintegrating) (Zofran ODT) tablet 4 mg 4 mg, Oral, EVERY 6 HOURS PRN, Nausea/Vomiting, Starting on 01/30/25 at 0619, Until 02/13/25 at 2301, Dissolved orally on tongue ondansetron (Zofran) injection 4 mg 4 mg, Intravenous, EVERY 6 HOURS PRN, Nausea/Vomiting, Starting on 01/30/25 at 0619, Until 02/13/25 at 2301, Administer IV if patient is NPO, actively vomiting, or unable to swallow. oxyCODONE-acetaminophen (Percocet) 10-325 MG tablet 1 tablet 1 tablet, Oral, EVERY 6 HOURS PRN, Moderate Pain, Starting on 01/30/25 at 0640, Until Fara 02/10/25 at 1059, Patient preference for lesser PRN pain meds may be honored when the patient requests a less strong medication, a lower dose, or a less intrusive route of administration when the lesser drug, dose and route have been ordered for the patient. This patient request must be documented in the MAR. If both oral and IV options are ordered for the same pain severity, give oral first unless patient cannot tolerate oral intake. $ Given 02/05/2025 4:07 PM CDT 1 tablet $ Given 02/03/2025 8:56 PM CDT 1 tablet $ Given 01/31/2025 7:58 PM CDT 1 tablet oxyCODONE-acetaminophen (Percocet) 10-325 MG tablet 2 tablet 2 tablet, Oral, EVERY 6 HOURS PRN, Moderate Pain, Starting on Fara 02/10/25 at 1059, Until 02/13/25 at 2301, Patient preference for lesser PRN pain meds may be honored when the patient requests a less strong medication, a lower dose, or a less intrusive route of administration when the lesser drug, dose and route have been ordered for the patient. This patient request must be documented in the MAR. If both oral and IV options are ordered for the same pain severity, give oral first unless patient cannot tolerate oral intake. $ Given 02/13/2025 5:30 AM CDT 2 tablets $ Given 02/12/2025 10:12 PM CDT 2 tablets $ Given 02/11/2025 8:58 AM CDT 2 tablets pantoprazole EC (Protonix) tablet 40 mg 40 mg, Oral, 2 TIMES DAILY, First dose on 01/30/25 at 2100, Until Discontinued, Do not crush, chew, or cut in half. $ Given 02/10/2025 9:36 AM CDT 40 mg $ Given 02/01/2025 10:13 AM CDT 40 mg potassium chloride ER (Klor-Con M) tablet 20 mEq 20 mEq, Oral, 3 TIMES DAILY WITH MEALS, 4 doses, First dose on Fri02/11/25 at 1200, Last dose on 02/12/25 at 1200, Do not crush or chew. $ Given 02/11/2025 11:58 AM CDT 20 mEq sodium bicarbonate tablet 1,300 mg 1,300 mg, Oral, 4 TIMES DAILY, First dose on 01/31/25 at 1545, Until Discontinued $ Given 02/01/2025 4:14 PM CDT 1,300 mg $ Given 02/01/2025 10:13 AM CDT 1,300 mg traZODone (Desyrel) tablet 100 mg 100 mg, Oral, AT BEDTIME PRN, Insomnia, Starting on Fri02/09/25 at 1322, Until 02/13/25 at 2301 documented in this encounter Active and Recently Administered Medications Times are shown in CDT. Scheduled Medication Order 02/11/2025 02/12/2025 02/13/2025 0.9% NaCl injection 10-40 mL 10-40 mL, Intracatheter, EVERY 8 HOURS, First dose on Fri02/02/25 at 1000, Until Discontinued, Flush each lumen of mid-line with 10ml NS IVP every 8 hours (regardless of continuous IV infusion). Flushing may be contraindicated if concentrated drips are infusing. 0425 (Not Administered - Provider: Martha Medrano RN - Reason: IV Currently Infusing)1326 (Not Administered - Provider: Deepika Luis RN - Reason: IV Currently Infusing)2233 (Not Administered - Provider: Saeed Jovel RN - Reason: IV Currently Infusing) 0527 (Not Administered - Provider: Saeed Jovel RN - Reason: IV Currently Infusing)1200 (Not Administered - Provider: Saeid Tejada RN - Reason: IV Currently Infusing)2038 ($ Given - Provider: Raya Quintana RN) 0425 ($ Given - Provider: Raya Quintana, BOUCHRA)1509 (Not Administered - Provider: Francheska Jacques RN - Reason: IV Currently Infusing) 0.9% NaCl injection 3 mL(Linked Group 1) 3 mL, Intracatheter, EVERY 8 HOURS, First dose on 01/29/25 at 2300, Until Discontinued, Flush peripheral IV catheter with 3 mL of normal saline every 8 hours. 0425 (Not Administered - Provider: Martha Medrano RN - Reason: IV Currently Infusing)1326 ($ Given - Provider: Deepika Luis RN)2233 (Not Administered - Provider: Saeed Jovel RN - Reason: Documented on duplicate row) 0527 (Not Administered - Provider: Saeed Jovel RN - Reason: Documented on duplicate row)1200 (Not Administered - Provider: Saeid Tejada RN - Reason: IV Currently Infusing)2039 ($ Given - Provider: Raya Quintana, BOUCHRA) 0425 ($ Given - Provider: Raya Quintana RN)1509 (Not Administered - Provider: Francheska Jacques RN - Reason: IV Currently Infusing) folic acid (Folvite) tablet 1 mg 1 mg, Oral, DAILY, First dose on Fri01/30/25 at 0900, Until Discontinued 09 (Not Administered - Provider: Deepika Luis RN - Reason: Refused-Patient) 0815 ($ Given - Provider: SN Kaycee) 1204 (Not Administered - Provider: Francheska Jacques RN - Reason: Refused-Patient) gabapentin (Neurontin) capsule 900 mg 900 mg, Oral, 3 TIMES DAILY, First dose (after last modification) on Fri02/10/25 at 1400, Until Discontinued 899 (Not Administered - Provider: Deepika Luis RN - Reason: Refused-Patient)1326 (Not Administered - Provider: Deepika Luis RN - Reason: Refused-Patient)2232 (Not Administered - Provider: Saeed Jovel RN - Reason: Refused-Patient) 0832 (Not Administered - Provider: Saeid Tejada RN - Reason: Refused-Patient)1218 (Not Administered - Provider: Saeid Tejada RN - Reason: Refused-Patient)2038 (Not Administered - Provider: Raya Quintana RN - Reason: Refused-Patient) 1324 (Not Administered - Provider: Francheska Jacques RN - Reason: Refused-Patient)1427 (Not Administered - Provider: Francheska Jacques RN - Reason: Refused-Patient)2100 (Due) hydrocortisone (Cortef) tablet 10 mg 10 mg, Oral, DAILY, First dose on Fri02/02/25 at 0900, Until Discontinued 0900 (Not Administered - Provider: Deepika Luis RN - Reason: Refused-Patient) 0832 (Not Administered - Provider: Saeid Tejada RN - Reason: Refused-Patient) 1325 (Not Administered - Provider: Francheska Jacques RN - Reason: Refused-Patient) hydrocortisone (Cortef) tablet 5 mg 5 mg, Oral, AT BEDTIME, First dose on Fri02/01/25 at 2100, Until Discontinued 223 (Not Administered - Provider: Saeed Jovel RN - Reason: Refused-Patient) 2037 (Not Administered - Provider: Raya Quintana RN - Reason: Refused-Patient) 2100 (Due) melatonin tablet 9 mg 9 mg, Oral, AT BEDTIME, First dose (after last modification) on Fri02/09/25 at 1800, Until Discontinued 223 (Not Administered - Provider: Saeed Jovel RN - Reason: Refused-Patient) 1611 (Not Administered - Provider: Saeid Tejada RN - Reason: Refused-Patient) 1800 (Due) pantoprazole EC (Protonix) tablet 40 mg 40 mg, Oral, 2 TIMES DAILY, First dose on 01/30/25 at 2100, Until Discontinued, Do not crush, chew, or cut in half. 0900 (Not Administered - Provider: Deepika Luis RN - Reason: Refused-Patient)223 (Not Administered - Provider: Saeed Jovel RN - Reason: Refused-Patient) 0832 (Not Administered - Provider: Saeid Tejada RN - Reason: Refused-Patient)2038 (Not Administered - Provider: Raya Quintana RN - Reason: Refused-Patient) 1325 (Not Administered - Provider: Francheska Jacques RN - Reason: Refused-Patient)2099 (Due) potassium chloride ER (Klor-Con M) tablet 20 mEq () 20 mEq, Oral, 3 TIMES DAILY WITH MEALS, 4 doses, First dose on Fri02/11/25 at 1200, Last dose on Fri02/12/25 at 1200, Do not crush or chew. 1158 ($ Given - Provider: Deepika Luis RN)1728 (Not Administered - Provider: Munira Kwan RN - Reason: Refused-Patient) 0832 (Not Administered - Provider: Saeid Tejada RN - Reason: Refused-Patient)1032 (Not Administered - Provider: Saeid Tejada RN - Reason: Refused-Patient) Continuous Medication Order 02/11/2025 02/12/2025 02/13/2025 lactated ringers infusion at 100 mL/hr, Intravenous, CONTINUOUS, Starting on 01/29/25 at 2315, Until 02/13/25 at 2301 0940 (Stopped - Provider: Saeid Tejada RN)0941 ($ New Bag/Syringe - Provider: Deepika Luis RN)1925 (Stopped - Provider: Saeid Tejada RN)2229 ($ New Bag/Syringe - Provider: Saeed Jovel RN) 0833 (Stopped - Provider: Saeid Tejada RN)0925 ($ New Bag/Syringe - Provider: SN Kaycee)0953 (Paused - Provider: Saeid Tejada RN)1212 (Restarted - Provider: Saeid Tejada RN)1527 (Current Rate - Provider: Saeid Tejada RN)2217 (Current Rate - Provider: Raya Quintana RN) 0025 (Stopped - Provider: Raya Quintana RN)0025 ($ New Bag/Syringe - Provider: Raya Quintana RN)0551 (Current Rate - Provider: Raya Quintana RN) PRN Medication Order 02/11/2025 02/12/2025 02/13/2025 0.9% NaCl injection 1-10 mL(Linked Group 1) 1-10 mL, Intracatheter, PRN, Other, peripheral line flush, Starting on 01/29/25 at 2217, Until 02/13/25 at 230, Flush peripheral IV catheter with 1-10 mL of normal saline before and after medications and prn to clear blood from the line or to verify patency. 0.9% NaCl injection 10-40 mL 10-40 mL, Intravenous, PRN, Other, mid-line flush, Starting on Fri02/02/25 at 0916, Until Fri02/13/25 at 230, Flush each lumen of mid-line with 10ml NS IVP before and after medication/solution administration, before and after blood product administration, when obtaining blood sample, discard 5-10ml blood, then obtain sample. Upon completion, pulse flush with 20ml sterile NS IVP and PRN to determine patency. diphenhydrAMINE (Benadryl) injection 25 mg 25 mg, Intravenous, EVERY 6 HOURS PRN, Itching, Starting on Tu02/01/25 at 1920, Until 02/13/25 at 2301, Administer IV at a rate not exceeding 25 mg/min. Can dilute in 5-10 mL NS as needed for patient comfort. 0432 ($ Given - Provider: Martha Medrano RN)1029 ($ Given - Provider: Deepika Luis RN)1728 ($ Given - Provider: Munira Kwan RN) 0202 ($ Given - Provider: Saeed Jovel, RN)0816 ($ Given - Provider: Saeid Tejada, RN)1621 ($ Given - Provider: Saeid Tejada RN) 0024 ($ Given - Provider: Raya Quintana, BOUCHRA)0601 ($ Given - Provider: Raya Quintana, RN)1200 ($ Given - Provider: Francheska Jacques, BOUCHRA)1805 ($ Given - Provider: Francheska Jacques RN) HYDROmorphone (Dilaudid) injection 1 mg (CANCELED) 1 mg, Intravenous, EVERY 6 HOURS PRN, Severe Pain, Starting on Fara 02/10/25 at 1058, Until Fri02/11/25 at 1305, Patient preference for lesser PRN pain meds may be honored when the patient requests a less strong medication, a lower dose, or a less intrusive route of administration when the lesser drug, dose and route have been ordered for the patient. This patient request must be documented in the MAR. If both oral and IV options are ordered for the same pain severity, give oral first unless patient cannot tolerate oral intake. 0432 ($ Given - Provider: Martha Medrano RN)1030 ($ Given - Provider: Deepika Luis RN) HYDROmorphone (Dilaudid) injection 2 mg 2 mg, Intravenous, EVERY 4 HOURS PRN, Severe Pain, Starting on Fri02/11/25 at 1305, Until Fri02/13/25 at 2301, Patient preference for lesser PRN pain meds may be honored when the patient requests a less strong medication, a lower dose, or a less intrusive route of administration when the lesser drug, dose and route have been ordered for the patient. This patient request must be documented in the MAR. If both oral and IV options are ordered for the same pain severity, give oral first unless patient cannot tolerate oral intake. 1326 ($ Given - Provider: Deepika Luis RN)1730 ($ Given - Provider: Munira Kwan RN)2208 ($ Given - Provider: Saeed Jovel RN) 0201 ($ Given - Provider: Saeed Jovel RN)0816 ($ Given - Provider: Saeid Tejada RN)1211 ($ Given - Provider: Saeid Tejada RN)1621 ($ Given - Provider: Saeid Tejada, RN)2037 ($ Given - Provider: Raya Quintana RN) 0025 ($ Given - Provider: Raya Quintana RN)0424 ($ Given - Provider: Raya Quintana RN)0813 ($ Given - Provider: Francheska Jacques RN)1200 ($ Given - Provider: Francheska Jacques RN)1600 ($ Given - Provider: Francheska Jacques RN)1950 ($ Given - Provider: Raya Quintana RN) ondansetron (disintegrating) (Zofran ODT) tablet 4 mg(Linked Group 2) 4 mg, Oral, EVERY 6 HOURS PRN, Nausea/Vomiting, Starting on 01/30/25 at 0619, Until 02/13/25 at 2301, Dissolved orally on tongue ondansetron (Zofran) injection 4 mg(Linked Group 2) 4 mg, Intravenous, EVERY 6 HOURS PRN, Nausea/Vomiting, Starting on 01/30/25 at 0619, Until 02/13/25 at 2301, Administer IV if patient is NPO, actively vomiting, or unable to swallow. oxyCODONE-acetaminophen (Percocet) 10-325 MG tablet 2 tablet 2 tablet, Oral, EVERY 6 HOURS PRN, Moderate Pain, Starting on Fara 02/10/25 at 1059, Until 02/13/25 at 2301, Patient preference for lesser PRN pain meds may be honored when the patient requests a less strong medication, a lower dose, or a less intrusive route of administration when the lesser drug, dose and route have been ordered for the patient. This patient request must be documented in the MAR. If both oral and IV options are ordered for the same pain severity, give oral first unless patient cannot tolerate oral intake. 0858 ($ Given - Provider: Deepika Luis RN) 2212 ($ Given - Provider: Raya Quintana RN) 6444 ($ Given - Provider: Raya Quintana RN) traZODone (Desyrel) tablet 100 mg 100 mg, Oral, AT BEDTIME PRN, Insomnia, Starting on 02/09/25 at 1322, Until 02/13/25 at 2301 Linked Groups Order Group 1: SALINE LOCK, INSERT AND MAINTAIN (CANCELED) Routine, CONTINUOUS, Starting on 01/29/25 at 2230, Until Specified, New collection, Task Completed: Yes And 0.9% NaCl injection 3 mLJump to med 3 mL, Intracatheter, EVERY 8 HOURS, First dose on 01/29/25 at 2300, Until Discontinued, Flush peripheral IV catheter with 3 mL of normal saline every 8 hours. And 0.9% NaCl injection 1-10 mLJump to med 1-10 mL, Intracatheter, PRN, Other, peripheral line flush, Starting on 01/29/25 at 2217, Until 02/13/25 at 2301, Flush peripheral IV catheter with 1-10 mL of normal saline before and after medications and prn to clear blood from the line or to verify patency. Group 2: ondansetron (disintegrating) (Zofran ODT) tablet 4 mgJump to med 4 mg, Oral, EVERY 6 HOURS PRN, Nausea/Vomiting, Starting on 01/30/25 at 0619, Until 02/13/25 at 2301, Dissolved orally on tongue Or ondansetron (Zofran) injection 4 mgJump to med 4 mg, Intravenous, EVERY 6 HOURS PRN, Nausea/Vomiting, Starting on 01/30/25 at 0619, Until 02/13/25 at 2301, Administer IV if patient is NPO, actively vomiting, or unable to swallow. documented in this encounter Additional Health Concerns Infection Onset Date Last Indicated Resolved Time C Diff Hx 09/29/2023 09/29/2023 documented as of this encounter Care Teams Rn On Site Relationship Specialty Start Date End Date Laurent Gonzalez MD [address] [place] [address] PCP - General Hematology 01/15/24 documented as of this encounter
--- OUTSIDE RECORDS SUMMARY | 2025-01-29 22:31 | XMS_ITS | Encounter Summary ---
Author Organization [facility] Health Address [address] [place] [address] Care Team Providers Care Game Programmer Name Role Phone Laurent Gonzalez MD Primary Care Provider [phone] Reason for Referral * Home Connections (Routine) - Pending Review Specialty Diagnoses / Procedures Referred By Olga byrne Referred To Contact Home Health Services Diagnoses Sickle cell disease with crisis and other complication (HCC) Rachel Sofia MD [address] [place] [address] Phone: tel: fax: [facility] Health at Home Scheduling [address] [place] [address] Phone: tel: Referral ID Status Reason Start Date Expiration Date Visits Requested Visits Authorized [id number] Pending Review Specialty Services Required 01/31/2025 01/31/2026 [...] Expiration Date Visits Re quested Visits Authorized [id number] 1 1 Encounter Details Date Type Department Care Team (Latest Contact Info) Description 01/29/2025 10:31 PM CDT - 02/13/2025 9:55 PM CDT Hospital Encounter [facility] [address] [place], [place] [id number] Mohamud Moore MD [address] [place], [place] [id number] Oren Bush MD [address] [place] [address] Rachel Sofia MD [address] [place] [id number] Amandeep Sheehan MD [address] [place] [address] Thomas Paz MD [address] [place] [address] Daron Singh MD [address] [facility] [address] [place] [address] Hospitalist Discharge Disposition: Home or [...] and heating? Not hard at all 02/11/2025 [place] [facility] [employer] [facility] - Occupational Stress [...] place to sleep or slept in a fdc (including now)? No 01/23/2024 Housing Stability Vital Sign Answer Samy e Recorded In the last 12 months, was t here a time when you were not able to pay the mortgage or rent on time? No 02/11/2025 In the past 12 months, how m any times have you moved where you were living? 0 02/11/2025 At any time in the past 12 m [facility], were you homeless or living in a fdc (including now)? 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 Home connections to follow, orders in place.Patient states that he has an appointment with Dr Gonzalez on 02/14/25 Family Support (Name and Phone): Extended Emergency Contact Information Primary Emergency Contact: JUSTINE SIMON Mobile Relation: Sister Transportation at Discharge: Medicaid Provider: READMISSION RISK SCORE is 28.5 at 9:46 AM 02/11/2025.: Name: Ana Pastor RN [phone] * Simeon Carvalho - 02/10/2025 4:18 PM CDT 02/10/25 1600 Spiritual In what ways can we or our chaplains presently attend to your spiritual, emotional or cultural needs? None Visit Type Assessment Date 02/10/25 Brewer Helper Visiting Patient john Pastoral Care Reason for Visit Follow Up Pastoral Care Visit Type(s) Follow Up Encounter Type Patient Spiritual History Community Family and Friends Support Spiritual Assessment Spiritual Assessment Exploring Kinsey/Health Issues;Appears Discouraged/Sad;Seems Nervous/Anxious Interventions Pastoral Care Conversation;Reflective Listening;Support;Silent Presence Support Coping;Goals of Care Plan/Outcome Plan Follow-up Available by Request Pastoral Care remains available as needed/requested. Simeon Carvalho MDiv Brewer Helper & Transformation Lead For Urgent Needs: ext. [phone] / [phone] Outside: [phone] * Thomas Paz MD - 02/10/2025 1:38 [...] heme-onc to re-eval. - Case discussed at [facility]. Asked supervisor in charge to escalate to AOC to review case and speak to patient if appropriate. VTE Chemical Prophylaxis Orders (From admission, onward) None VTE Mechanical Prophylaxis Orders (From admission, onward) Ordered Start 01/30/25640 SEQUENTIAL COMPRESSION DEVICE (IMPLEMENT) CONTINUOUS Start Time: 01/30/25644 Order ID: [id number] Status: Sent 01/30/25644 Full Code Disposition: Cont [...] Number of days: 8 Thomas Paz MD [facility] 02/10/2025 [1] Patient Active Problem List: [...] (IMPLEMENT) CONTINUOUS Start Time: 01/30/25644 Order ID: [id number] Status: Sent 01/30/25644 Full Code Disposition: Cont [...] Consented to me reaching out to OP director of compensation. Medications: 0.9% NaCl injection 10-40 mL, Intracatheter, [...] Number of days: 7 Thomas Paz MD [facility] 02/09/2025 [1] Patient Active Problem List: [...] variable 0-90% of meals. 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 Provided supplement and adequate intake nutrition education, [...] pt) (02/06/252302) Skin/Wound: WDL Estimated Needs: KCAL: 1293-8448 (25-30 kcal/kg IBW) Protein (g): 98-113 (1.3-1.5 [...] results for input(s): HGBA1C in the last 69925 hours.No data found. MEDICATIONS FOR CURRENT ENCOUNTER: [...] Nisreen Iniguez RD.,VIKAS 02/09/2025 2:39 PM ASC[facility] [phone] * Ana Pastor RN - 02/09/2025 10:02 AM CDT Care Coordination Progress Note Expected Discharge Date: 02/10/2025 Discharge Plan: Home Chart reviewed. Plan for [place] to [place]. Home connections to follow, orders in place.Patient [...] (IMPLEMENT) CONTINUOUS Start Time: 01/30/25644 Order ID: [id number] Status: Sent 01/30/25644 Full Code Disposition: Cont [...] Number of days: 6 Thomas Paz MD [facility] 02/08/2025 [1] Patient Active Problem List: [...] hospitalizations [facility], [facility], [facility] -He is yet to see Hematology at [facility] since appointment in 04/2024 -He was fired by prior [facility] Associate Financial Advisor due to threatening behavior for not giving pain meds he asked for -he was recently discharge from our hospital on 12/31/2024 and had 4 ER visits and 1 hospitalization in between -He states currently has hematology appointment at [facility] on 02/14/2025 () -Discussed at [facility]'s -we will also contact [facility] hematology at some point this admission -consulted our director of compensation here -Palliative care was asked to see, [...] in Chronic Disease Amandeep Sheehan MD FAAFP [facility] Medicine 02/07/2025 Portions of this [...] Plan for [place] to [place] home at [place]. Home connections to follow, orders in place.Patient [...] hospitalizations reviewed including [facility], [facility], [facility] -He is yet to see Hematology at [facility] since appointment in 04/2024 -He was fired by prior [facility] Associate Financial Advisor due to threatening behavior for not giving pain meds he asked for -he was recently discharge from our hospital on 12/31/2024 and had 4 ER visits and 1 hospitalization in between -He states currently has hematology appointment at [facility] on 02/14/2025 () -Discussed at [facility]'s -we will also contact [facility] hematology at some point this admission -consulted our director of compensation here -Palliative care was asked to see, [...] Anemia in Chronic Disease Amandeep Sheehan MD [facility] Medicine 02/06/2025 Portions of this note [...] HYDROmorphone ondansetron (disintegrating) OR ondansetron oxyCODONE-acetaminophen * Aamndeep Sheehan MD - 02/05/2025 4:35 PM CDT [...] hospitalizations reviewed including [facility], [facility], [facility] -He is yet to see Hematology at [facility] since appointment in 04/2024 -He was fired by prior [facility] Associate Financial Advisor due to threatening behavior for not giving pain meds he asked for -he was recently discharge from our hospital on 12/31/2024 and had 4 ER visits and 1 hospitalization in between -He states currently has hematology appointment at [facility] on 02/14/2025 () -Discussed at [facility]'s -we will also contact [facility] hematology at some point this admission -consulted our director of compensation here -Palliative care was asked to see, [...] Anemia in Chronic Disease Amandeep Sheehan MD [facility] Medicine 02/05/2025 Portions of this note [...] hospitalizations reviewed including [facility], [facility], [facility] -He is yet to see Hematology at [facility] since appointment in 04/2024 -He was fired by prior [facility] Associate Financial Advisor due to threatening behavior for not giving pain meds he asked for -he was recently discharge from our hospital on 12/31/2024 and had 4 ER visits and 1 hospitalization in between -He states currently has hematology appointment at [facility] on 02/14/2025 () -Discussed at [facility]'s -we will also contact [facility] hematology at some point this admission -consulted our director of compensation here -Palliative care was asked to see, [...] in Chronic Disease Amandeep Sheehan MD FAAFP [facility] Medicine 02/04/2025 Portions of this [...] needs? None Visit Type Assessment Date 02/04/25 Brewer Helper Visiting Patient darius Pastoral Care Reason for Visit Follow Up Pastoral Care Visit Type(s) Follow Up Encounter Type Patient and Family Spiritual History Community Family and Friends Support Spiritual Assessment Spiritual Assessment Exploring Kinsey/Health Issues;Content;Peaceful Interventions Pastoral Care Conversation;Reflective Listening;Support Support Goals of Care Plan/Outcome Plan Follow-up Available by Request Pastoral Care remains available as needed/requested. Simeon Carvalho MDiv Brewer Helper & Transformation Lead For Urgent Needs: ext. [phone] / [phone] Outside: [phone] * Ana Pastor RN - 02/04/2025 10:12 AM CDT Care Coordination Progress Note Expected Discharge Date: 02/08/2025 Discharge Plan: Home Chart reviewed. Plan for [place]. Home connections to follow, orders in place.Patient [...] far this year Multiple hospitalizations reviewed including [facility], [facility], [facility] -He is yet to see Hematology at [facility] since appointment in 04/2024 -He was fired by prior [facility] Associate Financial Advisor due to threatening behavior for not giving pain meds he asked for -he was recently discharge from our hospital on 12/31/2024 and had 4 ER visits and 1 hospitalization in between -He states currently has hematology appointment at [facility] on 02/14/2025 () -Discussed at [facility]'s -we will also contact [facility] hematology at some point this admission -consulted our director of compensation here -Palliative care was asked to see, [...] in Chronic Disease Amandeep Sheehan MD FAAFP [facility] Medicine 02/03/2025 Portions of this [...] hospitalizations [facility] including [facility], [facility], [facility] -He is yet to see Hematology at [facility] since appointment in 04/2024 -He was fired by prior [facility] Associate Financial Advisor due to threatening behavior for not giving pain meds he asked for -he was recently discharge from our hospital on 12/31/2024 and had 4 ER visits and 1 hospitalization in between -He states currently has hematology appointment at [facility] on 02/14/2025 () -Discussed at [facility]'s -we will also contact [facility] hematology at some point this admission -consulted our director of compensation here -Palliative care was asked to see, [...] Anemia in Chronic Disease [facility] 02/02/2025 Portions of this [...] Nisreen Iniguez RD.,VIKAS 02/02/2025 11:26 AM [facility] [phone] * Ana Pastor RN - 02/02/2025 9:55 AM CDT Care Coordination Progress Note Expected Discharge Date: 02/04/2025 Discharge Plan: Home Chart reviewed. Plan for [place]. Home connections to follow, orders in place Family Support (Name and Phone): Extended Emergency Contact Information Primary Emergency Contact: JUSTINE SIMON Mobile Relation: Sister Transportation at Discharge: Medicaid Provider: READMISSION RISK SCORE is 28.7 at 9:55 AM 02/02/2025.: Name: Ana Pastor RN [phone] * Saeed Jovel RN - 02/01/2025 11:30 [...] far this year Multiple hospitalizations reviewed including [facility], [facility] system, [facility] -He is yet to see Hematology at [facility] since appointment in 04/2024 -He was fired by prior [facility] Associate Financial Advisor due to threatening behavior for not giving pain meds he asked for -he was recently discharge from our hospital on 12/31/2024 and had 4 ER visits and 1 hospitalization in between -He states currently has hematology appointment at [facility] on 02/14/2025 () -Discussed at [facility]'s -we will also contact [facility] hematology at some point this admission -consulted our director of compensation here -Palliative care was asked to see, [...] in Chronic Disease Amandeep Sheehan MD FAAFP [facility] Medicine 02/01/2025 Portions of this [...] results for input(s): HGBA1C in the last 87380 hours. Recent imaging results: XR Chest 1Vw [...] Spine 2 or 3Vw Result Date: 01/29/[address] [address] Examination: XR LUMB SPINE 3V Exam time: [...] XR Chest 1Vw Portable Result Date: 01/18/[address] [address] Examination: XR CHEST PORTABLE Exam time: 01/18/2025 [...] Bradley Rushing M.D. MF: CALDERON Report ID: [id number] Reading Location: [id number] XR Chest 2Vw Result Date: 01/11/2025 EXAM [...] the chest when compared to the previous [facility] st radiograph dated 01/10/2025. THIS IS AN ELECTRONICALLY VERIFIED FINAL REPORT 01/11/2025 2:07 PM -Electronically signed by Gee Laboy D.O. AP: AP T: 52:07 PM Report ID: [id number] Reading Location: [id number] XR Chest 1Vw Result Date: 01/10/2025 EXAM [...] Anne Merchant M.D. FT: FT Report ID: [id number] Reading Location: [id number] CT Abdomen Pelvis Wo Contrast Result Date: [...] Anival Cotton M.D. 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 No Compliance Testing Analyst Referral: No Will continue to follow. For any questions or needs please contact: Cable Inspector/Social Work Name/Phone number: Ana Pastor RN [phone] * Simeon Carvalho - 01/30/2025 2:37 PM CDT 01/30/25 1400 Spiritual In what ways can we or our chaplains presently attend to your spiritual, emotional or cultural needs? None Visit Type Assessment Date 01/30/25 Brewer Helper Visiting Patient darius Pastoral Care Reason for Visit Initial Visit Pastoral Care Visit Type(s) Initial Visit Encounter Type Patient Spiritual Assessment Spiritual Assessment Exploring Kinsey/Health Issues;Appears Discouraged/Sad Interventions Pastoral Care Conversation;Reflective Listening;Support Support Coping Plan/Outcome Plan Follow-up Available by Request Pastoral Care remains available as needed/requested. Simeon Carvalho MDiv Brewer Helper & Transformation Lead For Urgent Needs: ext. [phone] / [phone] Outside: [phone] * Rachel Sofia MD - 01/30/2025 1:46 PM CDT Patient seen and assessed today. 29-year-old male admitted with sequela crisis. Reviewed lab results and plan of care. Updated the patient and nurse. Complete hospitalist note to follow tomorrow. Rachel Sofia MD * Bubba Silvestre CPhT - 01/30/2025 8:40 AM CDT [facility] Pharmacy Services Admission Medication Review Artur Simon is a 29 year old male I have reviewed patient's home medication list with the patient. The medication list review was after the physician has seen and acted upon, and is now ready for re-review/order by physician. Medication List Revisions Medications removed: Oxycodone 10-325 mg. Thank you for the opportunity to take part of Artur Simon's care. Bubba liriano CPhT Cosigned by [...] Spine 2 or 3Vw Result Date: 01/29/[address] [address] Examination: XR LUMB SPINE 3V Exam time: [...] XR Chest 1Vw Portable Result Date: 01/18/[address] [address] Examination: XR CHEST PORTABLE Exam time: 01/18/2025 [...] Bradley Rushing M.D. MF: CALDERON Report ID: [id number] Reading Location: [id number] XR Chest 2Vw Result Date: 01/11/2025 EXAM [...] the chest when compared to the previous [facility] radiograph dated 01/10/2025. THIS IS AN ELECTRONICALLY VERIFIED FINAL REPORT 01/11/2025 2:07 PM -Electronically signed by Gee Laboy D.O. AP: AP T: 52:07 PM Report ID: [id number] Reading Location: [id number] XR Chest 1Vw Result Date: 01/10/2025 EXAM [...] Anne Merchant M.D. FT: FT Report ID: [id number] Reading Location: [id number] CT Abdomen Pelvis Wo Contrast Result Date: [...] Anival Cotton M.D. NS: NS Report ID: [id number] Reading Location: [id number] XR Chest 1Vw Result Date: 01/01/2025 EXAM [...] Andrew Stubbs M.D. AR: TOREY Report ID: [id number] Reading Location: [id number] XR Chest 1Vw Portable Result Date: 12/31/[address] [address] Examination: Chest 1 view portable History: Chest [...] 01/30/2025 6:57 AM CC: Laurent Gonzalez MD [phone] [1] Past Medical History: Diagnosis Date Avascular [...] infection consistent with improvement Follow up at [facility] at discharge Please re-consult p.r.n. Chest pain, [...] been transfusion independent. He is followed at [facility] and is soon to begin atezolizumab to [...] Resource Strain: Low Risk (01/03/2025) Received from [facility] Overall Financial Resource Strain (CARDIA) How hard is it for you to pay for the very basics like food, housing, medical care, and heating?: Not hard at all Recent Concern: Financial Resource Strain - High Risk (12/14/2024) Received from [facility] Overall Financial Resource Strain (CARDIA) How hard is it for you to pay for the very basics like food, housing, medical care, and heating?: Hard Food Insecurity: No Food Insecurity (01/03/2025) Received from [facility] Hunger Vital Sign Worried About Running Out of Food in the Last Year: Never true Ran Out of Food in the Last Year: Never true Recent Concern: Food Insecurity - Food Insecurity Present (12/14/2024) Received from [facility] Hunger Vital Sign Worried About Running Out of Food in the Last Year: Sometimes true Ran Out of Food in the Last Year: Sometimes true Transportation Needs: No Transportation Needs (01/03/2025) Received from [facility] PRAPARE - Transportation In the past 12 months, has lack of transportation kept you from medical appointments or from getting medications?: No In the past 12 months, has lack of transportation kept you from meetings, work, or from getting things needed for daily living?: No Stress: No Stress Concern Present (12/30/2024) [place] [employer] - Occupational Stress Questionnaire Feeling of Stress : Not at all Housing Stability: Low Risk (01/03/2025) Received from [facility] Housing Stability Vital Sign Unable to [...] QTC Calculation (Bezet) 454 ms Calculated P [place] 32 degrees Calculated R [place] 17 degrees Calculated T [place] 20 degrees Interpretation EKG Normal sinus rhythm Normal ECG When compared with ECG of 24-DEC-2024 11:49, No significant change was found Confirmed by MK ROBERTSON MD ([id number]) on 01/31/2025 3:38:24 PM TROPONIN-I HIGH SENSITIVE [...] RN - 01/30/2025 5:31 AM CDT ED RN/TRUSS DESIGNER to Floor Nursing Report Arrival Information: Chief [...] Yes Does this need to be a transport aircrewman? No Level of Care Ordered:Med Tele Fall [...] (01/29/252255) Best Motor Response: Obeys commands (01/29/252255) Isabel Coma Scale Score: 15 (01/29/252255) Medications: ED [...] information from this note is pulled from [employer] and not added by the note creator every effort has been made to ensure accuracy however as [facility] updates this note will not update once signed. [1] lactated ringers, , Last Rate: 900 mL (01/30/25 0016) * Mohamud Moore MD - 01/30/2025 5:15 AM CDT Artur Simon [id number] ER AT [facility] History Chief Complaint Patient presents with Sickle [...] Resource Strain: Low Risk (01/03/2025) Received from [facility] Overall Financial Resource Strain (CARDIA) How hard is it for you to pay for the very basics like food, housing, medical care, and heating?: Not hard at all Recent Concern: Financial Resource Strain - High Risk (12/14/2024) Received from [facility] Overall Financial Resource Strain (CARDIA) How hard is it for you to pay for the very basics like food, housing, medical care, and heating?: Hard Food Insecurity: No Food Insecurity (01/03/2025) Received from [facility] Hunger Vital Sign Worried About Running Out of Food in the Last Year: Never true Ran Out of Food in the Last Year: Never true Recent Concern: Food Insecurity - Food Insecurity Present (12/14/2024) Received from [facility] Hunger Vital Sign Worried About Running Out of Food in the Last Year: Sometimes true Ran Out of Food in the Last Year: Sometimes true Transportation Needs: No Transportation Needs (01/03/2025) Received from [facility] PRAJUANY - Transportation In the past 12 months, has lack of transportation kept you from medical appointments or from getting medications?: No In the past 12 months, has lack of transportation kept you from meetings, work, or from getting things needed for daily living?: No Stress: No Stress Concern Present (12/30/2024) [place] [employer] - Occupational Stress Questionnaire Feeling of Stress : Not at all Housing Stability: Low Risk (01/03/2025) Received from [facility] Housing Stability Vital Sign Unable to [...] RETIC COUNT (02/10/2025 4:10 PM CDT) Pathologist [facility] Reticulocyte Percent 14.36(H) 0.50 - 2.40 % 02/10/2025 4:16 PM CDT -[facility] Reticulocyte Absolute 0.3676(H) 0.0200 - 0.1100 x10E6/uL 02/10/2025 4:16 PM CDT [facility] Ret-HE 33.7 29.0 - 37.9 pg 02/10/2025 4:16 PM CDT -[facility] Immature Reticulocyte Fraction 39.3(H) 1.8 - 15.2 % 02/10/2025 4:16 PM CDT -[facility] Blood BLOOD SPECIMEN / Unknown Lab Venipuncture / Unknown 02/10/2025 4:10 PM CDT 02/10/2025 4:13 PM CDT Thomas I Brandi [facility] - HEMATOLOGY ORDERABLES F inal Result [facility] [address] [place] [address] * (ABNORMAL) CBC W AUTO DIFFERENTIAL (02/10/2025 4:10 PM CDT) Pathologist [facility] WBC 9.5 4.0 - 10.7 x10E9/L 02/10/2025 4:16 PM CDT -[facility] RBC Count 2.56(L) 4.30 - 5.80 x10E12/L 02/10/2025 4:16 PM CDT [facility] Hemoglobin 8.0(L) 13.3 - 17.5 [...] <=0.0 /100 WBC 02/10/2025 4:16 PM CDT [facility] Blood BLOOD SPECIMEN / Unknown Lab Venipuncture / Unknown 02/10/2025 4:10 PM CDT 02/10/2025 4:13 PM CDT us Asm I Brandi [facility] - HEMATOLOGY ORDERABLES F inal Result [facility] [address] [place] [address] * (ABNORMAL) RENAL FUNCTION PANEL (02/10/2025 4:10 [...] (2020), per the National [employer] and [place] [employer] recommendations. Blood BLOOD SPECIMEN / Unknown Lab Venipuncture / Unknown 02/10/2025 4:10 PM CDT 02/10/2025 4:13 PM CDT Thomas Paz MD LAB - CHEMISTRY ORDERABLES Fi nal Result -[facility] [address] [place] [address] * (ABNORMAL) CBC W AUTO DIFFERENTIAL (02/09/2025 [...] LAB - HEMATOLOGY ORDERABLES F inal Result [facility] [address] [place] [address] * (ABNORMAL) RENAL FUNCTION PANEL (02/09/2025 9:47 [...] - 29 mmol/L 02/09/2025 10:20 AM T [facility] Calcium 8.3(L) 8.4 - 10.4 mg/dL 02/09/2025 10:20 AM T -[facility] Anion Gap 8 6 - 16 mmol/L 02/09/2025 10:20 AM T [facility] BUN 4(L) 5.3 - 18.7 mg/dL 02/09/2025 10:20 AM [facility] Creatinine 0.57(L) 0.72 - 1.25 mg/dL 02/09/2025 10:20 AM T [facility] Albumin 3.7 3.1 - 4.5 gm/dL 02/09/2025 10:20 AM T -[facility] Phosphorus 3.1 2.5 - 4.5 mg/dL 02/09/2025 10:20 AM T [facility] eGFR by CKD-EPI >90 >=90 mL/min/1.7 3 m2 02/09/2025 10:20 AM [facility] Comment:Estimated Glomerular Filtration Rate (eGFR) calculated using the CKD-EPI Creatinine Equation (2020), per the National Kidney Foundation and [place] [employer] Nephrology recommendations. Blood BLOOD SPECIMEN / Unknown Lab Venipuncture / Unknown 02/09/2025 9:47 AM CDT 02/09/2025 9:57 AM CDT Thomas Paz MD LAB - CHEMISTRY ORDERABLES Fi nal Result Performing Organization Address City/[facility]/ZIP Co de Phone Number [facility] [address] [place] [address] * (ABNORMAL) LDH BLOOD (02/07/2025 9:58 AM CDT) LDH 418(H) 125 - 220 U/L 02/07/2025 10:28 AM CDT [facility] Blood BLOOD SPECIMEN / Unknown Lab Venipuncture / Unknown 02/07/2025 9:58 AM CDT 02/07/2025 10:15 AM CDT Amandeep Sheehan MD LAB - CHEMISTRY ORD ERABLES Final Result Performing Organization Address [facility] Co de Phone Number [facility] [address] [place] [address] * (ABNORMAL) HGB HCT PANEL (02/07/2025 9:58 AM CDT) Hemoglobin 8.3(L) 13.3 - 17.5 g/dL 02/07/2025 10:18 AM CDT -[facility] Hematocrit 24.1(L) 38.7 - 51.1 % 02/07/2025 10:18 AM CDT [facility] Blood BLOOD SPECIMEN / Unknown Lab Venipuncture / Unknown 02/07/2025 9:58 AM CDT 02/07/2025 10:14 AM CDT Amandeep Sheehan MD LAB - HEMATOLOGY OR DERABLES Final Result Performing Organization Address City/[facility]/ZIP Co de Phone Number [facility] [address] [place] [phone] * (ABNORMAL) LDH BLOOD (02/04/2025 1:17 PM CDT) Pathologist [facility] LDH 468(H) 125 - 220 U/L 02/04/2025 1:41 PM CDT [facility] Blood BLOOD SPECIMEN / Unknown Venipuncture / Unknown 02/04/2025 1:17 PM CDT 02/04/2025 1:28 PM CDT Amandeep Sheehan MD LAB - CHEMISTRY ORD ERABLES Final Result Performing Organization Address City/[facility]/ZIP Co de Phone Number [facility] [address] [place] [phone] * (ABNORMAL) HGB HCT PANEL (02/04/2025 1:17 PM CDT) [facility] Hemoglobin 8.1(L) 13.3 - 17.5 g/dL 02/04/2025 1:30 PM CDT [facility] Hematocrit 23.4(L) 38.7 - 51.1 % 02/04/2025 1:30 PM CDT [facility] Blood BLOOD SPECIMEN / Unknown Venipuncture / Unknown 02/04/2025 1:17 PM CDT 02/04/2025 1:28 PM CDT Amandeep Sheehan MD LAB - HEMATOLOGY OR DERABLES Final Result [facility] [address] [place] [address] * (ABNORMAL) DIFFERENTIAL MANUAL (02/03/2025 6:56 AM CDT) [facility] Neutrophil % 43 41 - 74 % [...] OR DERABLES Final Result [facility] [address] [place] [address] * (ABNORMAL) LDH BLOOD (02/03/2025 6:56 AM CDT) LDH 410(H) 125 - 220 U/L 02/03/2025 7:23 AM CDT [facility] Blood BLOOD SPECIMEN / Unknown Venipuncture / Unknown 02/03/2025 6:56 AM CDT 02/03/2025 7:09 AM CDT us Amandeep Sheehan MD LAB - CHEMISTRY ORD ERABLES Final Result -[facility] [address] [place] [address] * (ABNORMAL) BASIC METABOLIC PANEL (CALCIUM TOTAL) (02/03/2025 6:56 AM CDT) Pathologist [facility] Glucose 89 70 - 99 mg/dL 02/03/2025 7:23 AM CDT -[facility] Sodium 141 136 - 145 mmol/L 02/03/2025 7:23 AM T -[facility] Potassium 3.8 3.5 - 5.1 mmol/L 02/03/2025 7:23 AM T [facility] Chloride 108(H) 98 - 107 mmol/L 02/03/2025 7:23 AM T -[facility] CO2 26 22 - 29 mmol/L 02/03/2025 7:23 AM T [facility] Calcium 8.0(L) 8.4 - 10.4 mg/dL 02/03/2025 7:23 AM T -[facility] Anion Gap 7 6 - 16 mmol/L 02/03/2025 7:23 AM T [facility] BUN 4(L) 5.3 - 18.7 mg/dL 02/03/2025 7:23 AM T [facility] Creatinine 0.57(L) 0.72 - 1.25 mg/dL 02/03/2025 7:23 AM T [facility] eGFR by CKD-EPI >90 >=90 mL/min/1.7 3 m2 02/03/2025 7:23 AM T [facility] Comment:Estimated Glomerular Filtration Rate (eGFR) calculated using the CKD-EPI Creatinine Equation (2020), per the National Kidney Foundation and [place] [employer] Nephrology recommendations. Blood BLOOD SPECIMEN / Unknown Venipuncture / Unknown 02/03/2025 6:56 AM CDT 02/03/2025 7:09 AM CDT us Amandeep Sheehan MD LAB - CHEMISTRY ORD ERABLES Final Result [facility] [address] [place] [address] * (ABNORMAL) CBC W AUTO DIFFERENTIAL (02/03/2025 [...] OR DERABLES Final Result Performing Organization Address City/[facility]/ZIP Co de Phone Number [facility] [address] [place] [address] * (ABNORMAL) LDH BLOOD (02/02/2025 1:21 AM CDT) LDH 518(H) 125 - 220 U/L 02/02/2025 1:41 AM CDT -[facility] Blood BLOOD SPECIMEN / Unknown Lab Venipuncture / Unknown 02/02/2025 1:21 AM CDT 02/02/2025 1:25 AM CDT Rachel Sofia MD LAB - CHEMISTRY ORDERABLES Final Result Performing Organization Address [facility] Co de Phone Number [facility] [address] [place] [phone] * (ABNORMAL) RETIC COUNT (02/02/2025 1:21 AM [...] LAB - HEMATOLOGY ORDERABLES Stephanie l Result [facility] [address] [place] [address] * (ABNORMAL) CK BLOOD (02/02/2025 1:21 AM CDT) CK 29(L) 30 - 200 U/L 02/02/2025 1:41 AM CDT [facility] Blood BLOOD SPECIMEN / Unknown Lab Venipuncture / Unknown 02/02/2025 1:21 AM CDT 02/02/2025 1:25 AM CDT us Rachel Sofia MD LAB - CHEMISTRY ORDERABLES Final Result [facility] [address] [place] [address] * (ABNORMAL) BASIC METABOLIC PANEL (CALCIUM TOTAL) (02/02/2025 1:21 AM CDT) Glucose 108(H) 70 - 99 mg/dL 02/02/2025 1:41 AM T [facility] Sodium 141 136 - 145 mmol/L 02/02/2025 1:41 AM T -[facility] Potassium 3.7 3.5 - 5.1 mmol/L 02/02/2025 1:41 AM T [facility] Chloride 110(H) 98 - 107 [...] (2020), per the National Kidney Foundation and [place] Society of Nephrology recommendations. Blood BLOOD SPECIMEN / Unknown Lab Venipuncture / Unknown 02/02/2025 1:21 AM CDT 02/02/2025 1:25 AM CDT Rachel Sofia MD LAB - CHEMISTRY ORDERABLES Final Result [facility] [address] [place] [address] * (ABNORMAL) CBC W/O DIFFERENTIAL (02/02/2025 1:21 [...] ORDERABLES Stephanie l Result [facility] [address] [place] [address] * CARDIAC RHYTHM STRIP ORDER (02/01/2025 4:53 [...] - 14.8 % 01/31/2025 11:04 PM CDT [facility] Platelet Count 303 150 - 420 x10E9/L 01/31/2025 11:04 PM CDT [facility] MPV 10.5 7.8 - 11.4 fL 01/31/2025 11:04 PM CDT [facility] NRBC 2.9(H) <=0.0 /100 WBC 01/31/2025 11:04 PM CDT [facility] Blood BLOOD SPECIMEN / Unknown Lab Venipuncture / Unknown 01/31/2025 10:58 PM CDT 01/31/2025 11:00 PM CDT Oren Bsuh MD LAB - HEMATOLOGY ORDERABLE S Final Result [facility] [address] [place] [address] * (ABNORMAL) BASIC METABOLIC PANEL (CALCIUM TOTAL) (01/31/2025 10:58 PM CDT) Pathologist [facility] Glucose 92 70 - 99 mg/dL 01/31/2025 11:15 PM CDT [facility] Sodium 140 136 - 145 mmol/L 01/31/2025 11:15 PM CDT [facility] Potassium 4.5 3.5 - 5.1 mmol/L 01/31/2025 11:15 PM CDT [facility] Chloride 109(H) 98 - 107 mmol/L 01/31/2025 11:15 PM CDT [facility] CO2 21(L) 22 - 29 mmol/L 01/31/2025 11:15 PM CDT [facility] Calcium 8.3(L) 8.4 - 10.4 mg/dL 01/31/2025 11:15 PM CDT [facility] Anion Gap 10 6 - 16 mmol/L 01/31/2025 11:15 PM CDT [facility] BUN 3(L) 5.3 - 18.7 mg/dL 01/31/2025 11:15 PM CDT [facility] Creatinine 0.58(L) 0.72 - 1.25 mg/dL 01/31/2025 11:15 PM CDT [facility] eGFR by CKD-EPI >90 >=90 mL/min/1.7 3 m2 01/31/2025 11:15 PM CDT [facility] Comment:Estimated Glomerular Filtration Rate (eGFR) calculated using the CKD-EPI Creatinine Equation (2020), per the National Kidney Foundation and [place] Society of Nephrology recommendations. Blood BLOOD SPECIMEN / Unknown Lab Venipuncture / Unknown 01/31/2025 10:58 PM CDT 01/31/2025 11:00 PM CDT Oren Bush MD LAB - CHEMISTRY ORDERABLES Final Result [facility] [address] [place] [address] * XR Chest 1Vw Portable (01/30/2025 6:39 [...] ORDERABLES Fin al Result [facility] [address] [place] [address] * (ABNORMAL) RETIC COUNT (01/30/2025 3:40 AM CDT) Reticulocyte Percent 15.30(H) 0.50 - 2.40 % 01/30/2025 5:30 AM CDT [facility] Reticulocyte Absolute 0.3703(H) 0.0200 - 0.1100 x10E6/uL 01/30/2025 5:30 AM CDT [facility] Ret-HE 33.2 29.0 - 37.9 pg 01/30/2025 5:30 AM CDT [facility] Immature Reticulocyte Fraction 42.5(H) 1.8 - 15.2 % 01/30/2025 5:30 AM CDT [facility] Blood BLOOD SPECIMEN / Unknown Lab Venipuncture / Unknown 01/30/2025 3:40 AM CDT 01/30/2025 3:43 AM CDT Mohamud Moore MD LAB - HEMATOLOGY ORDERABLES Fin al Result Performing Organization Address [facility] Co de Phone Number [facility] [address] [place] [phone] * TROPONIN-I HIGH SENSITIVE REFLEX 1HOUR (01/30/2025 3:40 AM CDT) Pathologist [facility] Troponin I High Sensitive <3 <=35 ng/L 01/30/2025 4:54 AM CDT [facility] Delta Troponin I HS 01/30/2025 4:54 AM CDT [facility] Comment:Delta value intentio tyrell not calculated. Baseline to 1 hour specimen collection interval exceeded. Blood BLOOD SPECIMEN / Unknown Lab Venipuncture / Unknown 01/30/2025 3:40 AM CDT 01/30/2025 4:33 AM CDT Mohamud Moore MD LAB - CHEMISTRY ORDERABLES Stephanie l Result Performing Organization Address [facility]/ZIP Co de Phone Number [facility] [address] [place] [phone] * (ABNORMAL) CBC W AUTO DIFFERENTIAL (01/30/2025 3:40 AM CDT) Pathologist [facility] WBC 12.1(H) 4.0 - 10.7 x10E9/L 01/30/2025 5:30 AM CDT [facility] RBC Count 2.42(L) 4.30 - [...] <=0.0 /100 WBC 01/30/2025 5:30 AM CDT [facility] Blood BLOOD SPECIMEN / Unknown Lab Venipuncture / Unknown 01/30/2025 3:40 AM CDT 01/30/2025 3:43 AM CDT us Mohamud Moore MD LAB - HEMATOLOGY ORDERABLES Fin al Result [facility] [address] [place] [address] * (ABNORMAL) COMPREHENSIVE METABOLIC PANEL (01/29/2025 11:28 PM CDT) Glucose 86 70 - 99 mg/dL 01/29/2025 11:48 PM CDT [facility] Sodium 138 136 - 145 mmol/L 01/29/2025 11:48 PM CDT [facility] Potassium 4.3 3.5 - 5.1 mmol/L 01/29/2025 11:48 PM CDT [facility] Chloride 110(H) 98 - 107 mmol/L 01/29/2025 11:48 PM CDT [facility] CO2 18(L) 22 - 29 mmol/L 01/29/2025 11:48 PM CDT [facility] Calcium 8.5 8.4 - 10.4 mg/dL 01/29/2025 11:48 PM CDT [facility] Anion Gap 10 6 - 16 mmol/L 01/29/2025 11:48 PM CDT [facility] BUN 3(L) 5.3 - 18.7 [...] (2020), per the National Kidney Foundation and [place] Society of Nephrology recommendations. Blood BLOOD SPECIMEN / Unknown Venipuncture / Unknown 01/29/2025 11:28 PM CDT 01/29/2025 11:28 PM CDT us Mohamud Moore MD LAB - CHEMISTRY ORDERABLES Stephanie bejarano Result -[facility] [address] [place] [address] * TROPONIN-I HIGH SENSITIVE BASELINE + 1HR (01/29/2025 11:28 PM CDT) Troponin I High Sensitive <3 <=35 ng/L 01/29/2025 11:52 PM CDT -[facility] Blood BLOOD SPECIMEN / Unknown Venipuncture / Unknown 01/29/2025 11:28 PM CDT 01/29/2025 11:28 PM CDT Mohamud Moore MD LAB - CHEMISTRY ORDERABLES Stephanie l Result Performing Organization Address [facility]/ZIP Co de Phone Number [facility] [address] [place] [address] * EKG 12-Lead (01/29/2025 10:02 PM CDT) Ventricular Rate 79 BPM [facility] Atrial Rate 79 BPM [facility] P-R Interval 200 ms [facility] QRS Duration ms 90 ms [facility] Q-T Interval ms 396 ms [facility] QTC Calculation (Bezet) 454 ms [facility] Calculated P [place] 32 degrees [facility] Calculated R [place] 17 degrees [facility] Calculated T [place] 20 degrees [facility] Interpretation EKG Normal sinus rhythm Normal ECG When compared with ECG of 24-DEC-2024 11:49, No significant change was found Confirmed by MK ROBERTSON MD ([id number]) on 01/31/2025 3:38:24 PM [facility] 01/29/2025 10:0 2 PM CDT 01/31/2025 3:38 PM CDT us Mohamud Moore MD ECG ORDERABLES Edited Result - Final Performing Organization Address [facility] Co de Phone Number [facility] documented [...] infection consistent with improvement Follow up at [facility] at discharge Please re-consult p.r.n. * Assessment [...] Kaycee) 1204 (Not Administered - Provider: Francheska Jaqcues RN - Reason: Refused-Patient) gabapentin (Neurontin) capsule [...] ($ Given - Provider: Raya Quintana RN) 7205 ($ Given - Provider: Raya Quintana RN) [...] documented as of this encounter Care Teams Game Programmer Relationship Specialty Start Date End Date Laurent Gonzalez MD [address] [place] [address] PCP - General Hematology 01/15/24 documented as of this encounter
--- NOTE | ~2025-02-14 | XR_ITS ---
Examination: XR chest 2V Clinical History: cp, hx sickle cell Comparison: None Technique: PA and Lateral Findings: Cardiomegaly. Lungs clear. Mild H shaped thoracic vertebra. Right humeral head sclerosis. IMPRESSION: 1. No acute cardiopulmonary findings. Reviewed, dictated and finalized at location R.
--- OUTSIDE RECORDS SUMMARY | 2025-02-14 14:45 | XMS_ITS | Encounter Summary ---
Author Organization [facility] Address [address] [facility] [address] [place] [address] Phone Care Team Providers Care Client Services Vice President Name Role Phone Ray Sainz MD Unavailable [phone] Gordo Herrera MD Unavailable [phone] Miscellaneous, Not In File Unavailable Unava ilable Laurent Gonzalez MD Primary Care Provider [phone] Tobin Terrell MD Unavailable [phone] Encounter Details Date Type Department Care Team (Late st Contact Info) Description 02/14/2025 2:45 PM CDT Lab [facility] Medicine Oncology Lab [address] [facility] [address] [place] [address] Arrived Social History Tobacco Use Types Packs/Day Years [...] How often do you attend chur or religion services? Never 12/08/2024 Do you belong to any clubs o r organizations such as shinto groups, unions, fraternal or athletic groups, or [...] place to sleep or slept in a residential (including now)? No 09/01/2023 PHQ-9 Answer Date [...] any time in the past 12 m [facility], were you homeless or living in a residential (including now)? No 12/08/2024 Social Connection and Isolation Panel Answer Date Recorded In a typical week, how many times do you talk on the phone with family, friends, or neighbors? More than three times a week 01/03/2025 How often do you get togethe r with friends or relatives? Twice a week 01/03/2025 How often do you attend chur ch or religion services? Never 01/03/2025 Do you belong to any clubs o r organizations such as shinto groups, unions, fraternal or athletic groups, or [...] any time in the past 12 m [facility], were you homeless or living in a residential (including now)? 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 Gender Identity Male 12/06/2024 9:44 PM CDT Sexual Orientation Straight 12/06/2024 9: 44 PM CDT documented as of this encounter Plan of Treatment Not on file documented as of this encounter Visit Diagnoses Not on filedocumented in this encounter Care Teams Client Services Vice President Relationship Specialty Start Date End Date Laurent Gonzalez MD [address] [place] [address] PCP - General Hematology and Oncology 10/18/23 Ray Sainz MD [address] [facility] [address] [place] [address] 02/10/20 [place] [id number] [facility] [address] [place] [address] Consulting Physician Family Medicine 05/05/22 Miscellaneous, Not In File 12/14/22 [place] [id number] [facility] [address] [place] [address] Consulting Physician Orthopedic Surgery 08/18/24 documented as of this encounter
--- OUTSIDE RECORDS SUMMARY | 2025-02-14 14:45 | XMS_ITS | Encounter Summary ---
Author Organization [facility] Address [address] [facility] [address] [place] [address] Phone Care Team Providers Care Engraver Tire Mold Name Role Phone Ray Sainz MD Unavailable [phone] Gordo Herrera MD Unavailable [phone] Miscellaneous, Not In File Unavailable Unava ilable Laurent Gonzalez MD Primary Care Provider [phone] Tobin Terrell MD Unavailable [phone] Encounter Details Date Type Department Care Team (Late st Contact Info) Description 02/14/2025 2:45 PM CDT Lab [facility] Medicine Oncology Lab [address] [facility] Floor [address] [place] [address] Arrived Social History Tobacco Use Types Packs/Day [...] How often do you attend chur or anabaptist services? Never 12/08/2024 Do you belong to any clubs o r organizations such as congregational groups, unions, fraternal or athletic groups, or [...] place to sleep or slept in a long term (including now)? No 09/01/2023 PHQ-9 Answer Date [...] any time in the past 12 m [facility], were you homeless or living in a long term (including now)? No 12/08/2024 Social Connection and Isolation Panel Answer Date Recorded In a typical week, how many times do you talk on the phone with family, friends, or neighbors? More than three times a week 01/03/2025 How often do you get togethe r with friends or relatives? Twice a week 01/03/2025 How often do you attend chur ch or anabaptist services? Never 01/03/2025 Do you belong to any clubs o r organizations such as congregational groups, unions, fraternal or athletic groups, or [...] any time in the past 12 m [facility], were you homeless or living in a long term (including now)? 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 Gender Identity Male 12/06/2024 9:44 PM CDT Sexual Orientation Straight 12/06/2024 9: 44 PM CDT documented as of this encounter Plan of Treatment Not on file documented as of this encounter Visit Diagnoses Not on filedocumented in this encounter Care Teams Engraver Tire Mold Relationship Specialty Start Date End Date Laurent Gonzalez MD [address] [place] [address] PCP - General Hematology and Oncology 10/18/23 Ray Sainz MD [address] [facility] [address] [place] [address] 02/10/20 [place] [id number] [facility] [address] [place] [address] Consulting Physician Family Medicine 05/05/22 Miscellaneous, Not In File 12/14/22 [place] [id number] [facility] [address] [place] [address] Consulting Physician Orthopedic Surgery 08/18/24 documented as of this encounter
--- OUTSIDE RECORDS SUMMARY | 2025-02-14 15:00 | XMS_ITS | Encounter Summary ---
Author Organization [facility] Healthcare Address [address] [place] [address] Care Team Providers Care Mill Hand Name Role Phone Ray Sainz MD Unavailable [phone] Gordo Herrera MD Unavailable [phone] Miscellaneous, Not In File Unavailable Unava ilable Laurent Gonzalez MD Primary Care Provider [phone] Tobin Terrell MD Unavailable [phone] Encounter Details Date Type Department Care Team (Late st Contact Info) Description 02/14/2025 3:00 PM CDT Lab [facility] [place] - Lab Collection [address] [facility] Floor 6 [place] [address] Sickle cell disease with crisis (HCC) Social History Tobacco Use Types Packs/Day Years [...] How often do you attend chur or presybeterian services? Never 12/08/2024 Do you [...] place to sleep or slept in a [place] facility (including now)? No 09/01/2023 PHQ-9 Answer Date [...] any time in the past 12 m [facility], were you homeless or living in a [place] health [place] facility (including now)? No 12/08/2024 Social Connection and [...] any time in the past 12 m [facility], were you homeless or living in a [place] health [place] facility (including now)? 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 Gender Identity Male 12/06/2024 9:44 PM CDT Sexual Orientation Straight 12/06/2024 9: 44 PM CDT documented as of this encounter Plan of Treatment Not on file documented as of this encounter Procedures Procedure Name Priority Date/Time Associated Diagnosis Comments EGFR Routine 02/14/2025 2:49 PM CDT Sickle cell disease with crisis (HCC) DIFFERENTIAL AUTO Routine 02/14/2025 2:4 9 PM CDT Sickle cell disease with crisis (HCC) CBC WITH AUTO DIFFERENTIAL Routine 02/14/2025 2:49 PM CDT Sickle cell disease with crisis (HCC) COMPREHENSIVE METABOLIC PANEL Routine 02/14/2025 2:49 PM CDT Sickle cell disease with crisis (HCC) documented in this encounter Results * eGFR (02/14/2025 2:49 PM CDT) eGFR >90 >=60 mL/min/1. 73 [...] interpretive data was last reviewed 2021. Blood 02/14/2025 2:49 PM CDT 02/14/2025 3:06 PM CDT us Laurent Gonzalez MD LAB BLOOD ORDERABLES Final R esult [facility] Department [place] [address] * (ABNORMAL) Differential, auto (02/14/2025 2:49 PM CDT) Neutrophil abs 7.49(H) 1.50 - 6.50 K/cumm Comment:Testing performed by : [facility], [address] [place] [phone] Lymphocyte abs 3.16 0.80 - 3.30 K/cumm [facility] Comment:Testing performed by : [facility], [address] [place] [phone] Monocyte abs 1.08(H) 0.20 - 0.80 K/cumm [facility] Comment:Testing performed by : [facility], [address] [place] [phone] Eosinophil abs 0.10 0.00 - 0.50 K/cumm [facility] Comment:Testing performed by : [facility], [address] [place] [phone] Basophil abs 0.16(H) 0.00 - 0.10 K/cumm [facility] Comment:Testing performed by : [facility], [address] [place] [phone] Neutrophil pct 62.5 % [facility] Comment: Interpretive Data Percent cell count reference ranges are not reported, since discordance with absolute values may lead to misinterpretation of CBC data. Current Interpretive Data was last revised on 2017. Testing performed by: [facility], [address] [place] [phone] Lymphocyte pct 26.4 % [facility] Comment: Interpretive Data Percent cell count reference ranges are not reported, since discordance with absolute values may lead to misinterpretation of CBC data. Current Interpretive Data was last revised on 2017. Testing performed by: [facility], [address] [place] [phone] Monocyte pct 9.0 % [facility] Comment: Interpretive Data Percent cell count reference ranges are not reported, since discordance with absolute values may lead to misinterpretation of CBC data. Current Interpretive Data was last revised on 2017. Testing performed by: [facility], [address] [place] [address] Eosinophil pct 0.9 % [facility] Comment: Interpretive Data Percent cell count reference ranges are not reported, since discordance with absolute values may lead to misinterpretation of CBC data. Current Interpretive Data was last revised on 2017. Testing performed by: [facility], [address] [place] [phone] Basophil pct 1.3 % [facility] Comment: Interpretive Data Percent cell count reference ranges are not reported, since discordance with absolute values may lead to misinterpretation of CBC data. Current Interpretive Data was last revised on 2017. Testing performed by: [facility], [address] [place] [phone] Blood 02/14/2025 2:49 PM CDT 02/14/2025 3:02 PM CDT us Laurent Gonzalez MD LAB BLOOD ORDERABLES Final R esult [facility] [place] [address] * (ABNORMAL) CBC with auto differential (02/14/2025 2:49 PM CDT) WBC 11.99(H) 3.80 - 9.90 K/cumm Comment:Testing performed by : [facility], [address] [place] [address] Hgb 9.2(L) 13.0 - 17.5 g/dL CERNER BJ Comment:Testing performed by : [facility], [address] [place] [address] Hct 26.5(L) 38.9 - 50.3 % CERNER BJ Comment:Testing performed by : [facility], [address] [place] [address] Plt 341 150 - 400 K/cumm CERNER BJ Comment:Testing performed by : [facility], [address] [place] [address] MPV 8.5 6.8 - 10.4 fL CERNER BJ Comment:Testing performed by : [facility], [address] [place] [address] RBC 2.86(L) 4.30 - 5.80 M/cumm CERNER BJ Comment:Testing performed by : [facility], [address] [place] [address] MCV 92.6 81.3 - 96.4 fL CERNER BJ Comment:Testing performed by : [facility], [address] [place] [address] MCH 32.0 27.1 - 33.3 pg CERNER BJ Comment:Testing performed by : [facility], [address] [place] [address] MCHC 34.5 32.3 - 35.7 g/dL C[facility]ER BJ Comment:Testing performed by : [facility], [address] [place] [address] RDW CV 24.7(H) 11.1 - 14.9 % CERNER BJ Comment:Testing performed by : [facility], [address] [place] [address] NRBC abs 0.10(H) 0.00 - 0.01 K/cumm [facility] Comment:Testing performed by : [facility], [address] [place] [address] Blood 02/14/2025 2:49 PM CDT 02/14/2025 3:02 PM CDT Laurent Gonzalez MD LAB BLOOD ORDERABLES Final R esult [facility] [place] [address] * (ABNORMAL) Comprehensive metabolic panel (02/14/2025 2:49 PM CDT) Sodium 141 135 - 145 mmol/L Potassium, pl 3.3 3.3 - 4.9 mmol/L [facility] Chloride 106 97 - 110 mmol/L [facility] CO2 22 22 - 32 mmol/L [facility] Anion gap 13 2 - 15 mmol/L [facility] BUN 3(L) 6 - 25 mg/dL [facility] Creatinine 0.52(L) 0.80 - 1.30 mg/dL [facility] Glucose 121 70 - 199 mg/dL [facility] Comment: Interpretive Data Fasting glucose >/= [...] 2022. Calcium 9.0 8.5 - 10.3 mg/dL [facility] Bilirubin, total 6.9(H) 0.1 - 1.2 mg/dL [facility] Protein, pl 8.2 6.5 - 8.5 g/dL [facility] Albumin 4.3 3.5 - 5.0 g/dL [facility] Alk phos 310(H) 40 - 130 Units/L [facility] ALT 51 7 - 55 Units/L [facility] AST 86(H) 10 - 50 Units/L [facility] Blood 02/14/2025 2:49 PM CDT 02/14/2025 3:06 PM CDT us Laurent Gonzalez MD LAB BLOOD ORDERABLES Final R esult [facility] [place] [address] documented in this encounter Visit Diagnoses Diagnosis Sickle cell disease with crisis (HCC) documented in this encounter Orders Lab Orders Without Results Count Last Ordered D ate First Ordered Date DRUGS OF ABUSE SCREEN, URINE WITH REFLEX CONFIRMATION 1 02/14/2025 PROTEIN / CREATININE RATIO, URINE, RANDOM 1 02/14/2025 documented in this encounter Care Teams Mill Hand Relationship Specialty Start Date End Date Laurent Gonzalez MD [address] [place] [address] PCP - General Hematology and Oncology 10/18/23 Ray Sainz MD [address] [facility] [address] [place] [address] 02/10/20 [place] [address] [facility] [address] [place] [address] Consulting Physician Family Medicine 05/05/22 Miscellaneous, Not In File 12/14/22 [place] [address] [address] [facility] [address] [place] [address] Consulting Physician Orthopedic Surgery 08/18/24 documented as of this encounter
--- OUTSIDE RECORDS SUMMARY | 2025-02-14 15:00 | XMS_ITS | Encounter Summary ---
Author Organization [facility] Healthcare Address [address] [place] [address] Care Team Providers Care Lead Warehouse Associate Name Role Phone Ray Sainz MD Unavailable [phone] Gordo Herrera MD Unavailable [phone] Miscellaneous, Not In File Unavailable Unava ilable Laurent Gonzalez MD Primary Care Provider [phone] Tobin Terrell MD Unavailable [phone] Encounter Details Date Type Department Care Team (Late st Contact Info) Description 02/14/2025 3:00 PM CDT Lab [facility] [place] - Lab Collection [address] [facility] Floor 6 [place] [address] Sickle cell disease with crisis (HCC) Social [...] How often do you attend chur or cheondoism services? Never 12/08/2024 Do you belong to any clubs o r organizations such as jehovah's witness groups, unions, fraternal or athletic groups, or [...] place to sleep or slept in a fpc (including now)? No 09/01/2023 PHQ-9 Answer Date [...] any time in the past 12 m [facility], were you homeless or living in a fpc (including now)? No 12/08/2024 Social Connection and Isolation Panel Answer Date Recorded In a typical week, how many times do you talk on the phone with family, friends, or neighbors? More than three times a week 01/03/2025 How often do you get togethe r with friends or relatives? Twice a week 01/03/2025 How often do you attend chur ch or cheondoism services? Never 01/03/2025 Do you belong to any clubs o r organizations such as jehovah's witness groups, unions, fraternal or athletic groups, or [...] any time in the past 12 m [facility], were you homeless or living in a fpc (including now)? 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 Gender Identity Male 12/06/2024 9:44 PM CDT [...] ORDERABLES Final R esult [facility] Department [place] [address] * (ABNORMAL) Differential, auto (02/14/2025 2:49 PM CDT) Neutrophil abs 7.49(H) 1.50 - 6.50 K/cumm Comment:Testing performed by : [facility], [address] [place] [phone] Lymphocyte abs 3.16 0.80 - 3.30 K/cumm [facility] Comment:Testing performed by : [facility], [address] [place] [phone] Monocyte abs 1.08(H) 0.20 - 0.80 K/cumm [facility] Comment:Testing performed by : [facility], [address] [place] [phone] Eosinophil abs 0.10 0.00 - 0.50 K/cumm [facility] Comment:Testing performed by : [facility], [address] [place] [phone] Basophil abs 0.16(H) 0.00 - 0.10 K/cumm [facility] Comment:Testing performed by : [facility], [address] [place] [phone] Neutrophil pct 62.5 % [facility] Comment: Interpretive Data Percent cell count reference ranges are not reported, since discordance with absolute values may lead to misinterpretation of CBC data. Current Interpretive Data was last revised on 2017. Testing performed by: [facility], [address] [place] [phone] Lymphocyte pct 26.4 % [facility] Comment: Interpretive Data Percent cell count reference ranges are not reported, since discordance with absolute values may lead to misinterpretation of CBC data. Current Interpretive Data was last revised on 2017. Testing performed by: [facility], [address] [place] [phone] Monocyte pct 9.0 % [facility] Comment: Interpretive Data Percent cell count reference ranges are not reported, since discordance with absolute values may lead to misinterpretation of CBC data. Current Interpretive Data was last revised on 2017. Testing performed by: [facility], [address] [place] [address] Eosinophil pct 0.9 % [facility] Comment: Interpretive Data Percent cell count reference ranges are not reported, since discordance with absolute values may lead to misinterpretation of CBC data. Current Interpretive Data was last revised on 2017. Testing performed by: [facility], [address] [place] [phone] Basophil pct 1.3 % [facility] Comment: Interpretive Data Percent cell count reference ranges are not reported, since discordance with absolute values may lead to misinterpretation of CBC data. Current Interpretive Data was last revised on 2017. Testing performed by: [facility], [address] [place] [phone] Blood 02/14/2025 2:49 PM CDT 02/14/2025 3:02 PM CDT us Laurent Gonzalez MD LAB BLOOD ORDERABLES Final R esult [facility] One [facility] Department [place] [address] * (ABNORMAL) CBC with auto differential (02/14/2025 2:49 PM CDT) WBC 11.99(H) 3.80 - 9.90 K/cumm Comment:Testing performed by : [facility], [address] [place] [address] Hgb 9.2(L) 13.0 - 17.5 g/dL [facility] Comment:Testing performed by : [facility], [address] [place] [address] Hct 26.5(L) 38.9 - 50.3 % C[facility]J Comment:Testing performed by : [facility], [address] [place] [address] Plt 341 150 - 400 K/cumm CERN[facility] BJ Comment:Testing performed by : [facility], [address] [place] [address] MPV 8.5 6.8 - 10.4 fL [facility]J Comment:Testing performed by : [facility], [address] [place] [address] RBC 2.86(L) 4.30 - 5.80 M/cumm C[facility] BJ Comment:Testing performed by : [facility], [address] [place] [address] MCV 92.6 81.3 - 96.4 fL [facility]J Comment:Testing performed by : [facility], [address] [place] [address] MCH 32.0 27.1 - 33.3 pg [facility] Comment:Testing performed by : [facility], [address] [place] [address] MCHC 34.5 32.3 - 35.7 g/dL [facility] Comment:Testing performed by : [facility], [address] [place] [address] RDW CV 24.7(H) 11.1 - 14.9 % [facility] Comment:Testing performed by : [facility], [address] [place] [address] NRBC abs 0.10(H) 0.00 - 0.01 K/cumm [facility] Comment:Testing performed by : [facility], [address] [place] [address] Blood 02/14/2025 2:49 PM CDT 02/14/2025 3:02 PM CDT Laurent Gonzalez MD LAB BLOOD ORDERABLES Final R esult [facility] One [facility] Department [place] [address] * (ABNORMAL) Comprehensive metabolic panel (02/14/2025 2:49 PM CDT) Sodium 141 135 - 145 mmol/L Potassium, pl 3.3 3.3 - 4.9 mmol/L [facility] Chloride 106 97 - 110 mmol/L [facility] CO2 22 22 - 32 mmol/L [facility] Anion gap 13 2 - 15 mmol/L [facility] BUN 3(L) 6 - 25 mg/dL [facility] Creatinine 0.52(L) 0.80 - 1.30 mg/dL [facility] Glucose 121 70 - 199 mg/dL [facility] Comment: Interpretive Data Fasting glucose >/= 126 [...] 2022. Calcium 9.0 8.5 - 10.3 mg/dL [facility] Bilirubin, total 6.9(H) 0.1 - 1.2 mg/dL [facility] Protein, pl 8.2 6.5 - 8.5 g/dL [facility] Albumin 4.3 3.5 - 5.0 g/dL [facility] Alk phos 310(H) 40 - 130 Units/L [facility] ALT 51 7 - 55 Units/L [facility] AST 86(H) 10 - 50 Units/L [facility] Blood 02/14/2025 2:49 PM CDT 02/14/2025 3:06 PM CDT us Laurent Gonzalez MD LAB BLOOD ORDERABLES Final R esult [facility] One [facility] [place] [address] documented in this encounter Visit Diagnoses Diagnosis Sickle cell disease with crisis (HCC) documented in this encounter Orders Lab Orders Without Results Count Last Ordered D ate First Ordered Date DRUGS OF ABUSE SCREEN, URINE WITH REFLEX CONFIRMATION 1 02/14/2025 PROTEIN / CREATININE RATIO, URINE, RANDOM 1 02/14/2025 documented in this encounter Care Teams Lead Warehouse Associate Relationship Specialty Start Date End Date Laurent Gonzalez MD [address] [place] [address] PCP - General Hematology and Oncology 10/18/23 Ray Sainz MD [address] [facility] [address] [place] [address] 02/10/20 [place] [address] [facility] [address] [place] [address] Consulting Physician Family Medicine 05/05/22 Miscellaneous, Not In File 12/14/22 [place] [address] [facility] [facility] [address] [place] [address] Consulting Physician Orthopedic Surgery 08/18/24 documented as of this encounter
--- OUTSIDE RECORDS SUMMARY | 2025-02-14 15:45 | XMS_ITS | Encounter Summary ---
Author Organization [facility] Address [address] [facility] [address] [place] [address] Phone Care Team Providers Care Technology Support Analyst Name Role Phone Ray Sainz MD Unavailable [phone] Gordo Herrera MD Unavailable [phone] Miscellaneous, Not In File Unavailable Unava ilable Laurent Gonzalez MD Primary Care Provider [phone] Tobin Terrell MD Unavailable [phone] Encounter Details Date Type Department Care Team (Late st Contact Info) Description 02/14/2025 3:45 PM CDT Office Visit [place] [id number] [facility] Floor [address] [place] [address] Arrived Social History Tobacco Use Types Packs/Day [...] week 12/08/2024 How often do you attend [facility] or hoahaoism services? Never 12/08/2024 Do you belong to any clubs o r organizations such as anglican groups, unions, fraternal or athletic groups, or [...] slept in a fdc (including now)? No 09/01/2023 PHQ-9 Answer Date [...] any time in the past 12 m [facility], were you homeless or living in a fdc (including now)? No 12/08/2024 Social Connection and Isolation Panel Answer Date Recorded In a typical week, how many times do you talk on the phone with family, friends, or neighbors? More than three times a week 01/03/2025 How often do you get togethe r with friends or relatives? Twice a week 01/03/2025 How often do you attend chur ch or hoahaoism services? Never 01/03/2025 Do you belong to any clubs o r organizations such as anglican groups, unions, fraternal or athletic groups, or [...] any time in the past 12 m [facility], were you homeless or living in a fdc (including now)? 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 Gender Identity Male 12/06/2024 9:44 PM CDT Sexual Orientation Straight 12/06/2024 9: 44 PM CDT documented as of this encounter Last Filed Vital Signs Vital Sign Reading Time Taken Comments Blood Pressure 147/83 02/14/2025 3:08 PM CDT Pulse 96 02/14/2025 3:08 PM CDT Temperature 36.4 C (97.5 F) 02/14/2025 3:08 PM CDT Respiratory Rate 20 02/14/2025 3:08 PM CDT Oxygen Saturation 96% 02/14/2025 3:08 PM CDT Inhaled Oxygen Concentration - - Weight 108.9 kg (240 lb) 02/14/2025 3:08 PM CDT Height 177.8 cm (5' 10) 02/14/2025 3:08 PM CDT Body Mass Index 34.44 02/14/2025 3:08 PM CDT documented in this encounter Plan of Treatment Not on file documented as of this encounter Visit Diagnoses Not on filedocumented in this encounter Care Teams Technology Support Analyst Relationship Specialty Start Date End Date Laurent Gonzalez MD [address] [place] [address] PCP - General Hematology and Oncology 10/18/23 Ray Sainz MD 4[address] [facility] [address] [place] [address] 02/10/20 [place] [address] [address] [facility] [address] [place] [address] Consulting Physician Family Medicine 05/05/22 Miscellaneous, Not In File 12/14/22 [place] [address] [address] [facility] [address] [place] [address] Consulting Physician Orthopedic Surgery 08/18/24 documented as of this encounter
--- OUTSIDE RECORDS SUMMARY | 2025-02-14 15:45 | XMS_ITS | Encounter Summary ---
Author Organization [facility] Address [address] [facility] [address] [place] [address] Phone Care Team Providers Care Yarn Spooler Name Role Phone Ray Sainz MD Unavailable [phone] Gordo Herrera MD Unavailable [phone] Miscellaneous, Not In File Unavailable Unava ilable Laurent Gonzalez MD Primary Care Provider [phone] Tobin Terrell MD Unavailable [phone] Encounter Details Date Type Department Care Team (Late st Contact Info) Description 02/14/2025 3:45 PM CDT Office Visit [place] [address] [facility] Floor [address] [place] [address] Arrived Social History Tobacco Use [...] week 12/08/2024 How often do you attend [facility] or mu-ism services? Never 12/08/2024 Do you belong to [...] in a halfway (including now)? No 09/01/2023 PHQ-9 Answer Date [...] any time in the past 12 m [facility], were you homeless or living in a halfway (including now)? No 12/08/2024 Social Connection and Isolation Panel Answer Date Recorded In a typical week, how many times do you talk on the phone with family, friends, or neighbors? More than three times a week 01/03/2025 How often do you get togethe r with friends or relatives? Twice a week 01/03/2025 How often do you attend chur ch or mu-ism services? Never 01/03/2025 Do you belong to [...] any time in the past 12 m [facility], were you homeless or living in a halfway (including now)? 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 Gender Identity Male 12/06/2024 9:44 PM CDT [...] on filedocumented in this encounter Care Teams Yarn Spooler Relationship Specialty Start Date End Date Laurent Gonzalez MD [address] [place] [address] PCP - General Hematology and Oncology 10/18/23 Ray Sainz MD [address] [facility] [address] [place] [address] 02/10/20 [place] [address] [address] [facility] [address] [place] [address] Consulting Physician Family Medicine 05/05/22 Miscellaneous, Not In File 12/14/22 [place] [address] [address] [address] [place] [address] Consulting Physician Orthopedic Surgery 08/18/24 documented as of this encounter
--- OUTSIDE RECORDS SUMMARY | 2025-02-14 19:19 | XMS_ITS | Encounter Summary ---
Author Organization [facility] Address [address] [place] [address] Care Team Providers Care Networking Engineer Name Role Phone Nina Hines APRN-COMMUNITY OUTREACH COORDINATOR Primary Care Provider + Given, None Primary Care Provider Laurent Noel MD Primary Care Provider [phone] Reason for Visit * Reason Onset Date Comments MEDICATION REFILL 07/16/2023 Encounter Details Date Type Department Care Team (Late st Contact Info) Description 07/16/2023 Refill [facility] - Internal Medicine [address] , [address] [address] Nina Hines, GASTON-COMMUNITY OUTREACH COORDINATOR [address] [address] MEDICATION REFILL Social History Tobacco [...] medical care, and heating? Patient declined 06/16/2023 [facility] Occup[facility] - Occupational Stress [...] place to sleep or slept in a [facility] (including now)? 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 Gender Identity Not on file Sexual Orientation [...] of Assessment Author No 06/16/2023 2:45 PM FORGING PRESS SETTER UP Redshaw, Radha K, RN * Does person [...] Under Investigation 05/15/2024 05/15/2024 05/16/2024 3:26 AM FORGING PRESS SETTER UP COVID-19 Under Investigation 06/30/2024 06/30/2024 06/30/2024 7:12 PM FORGING PRESS SETTER UP documented as of this encounter Care Teams Networking Engineer Relationship Specialty Start Date End Date Nina Hines, GASTON-COMMUNITY OUTREACH COORDINATOR [address] [address] PCP - General Nurse Practitioner 07/16/23 08/26/23 Given, None PCP - General 09/28/23 01/14/24 Laurent Gonzalez MD [address] [place] [address] PCP - General Hematology 01/15/24 documented as of this encounter
--- OUTSIDE RECORDS SUMMARY | 2025-02-14 19:19 | XMS_ITS | Encounter Summary ---
Author Organization [facility] Healthcare Address [address] [place] [address] Care Team Providers Care Peanut Shaker Name Role Phone Ray Sainz MD Unavailable [phone] Gordo Herrera MD Unavailable [phone] Miscellaneous, Not In File Unavailable Unava ilable Laurent Gonzalez MD Primary Care Provider [phone] Mariam Hedrick Unavailable Unavailable Ning Lowery DNP Unavailable [phone] Ana Duran RN Unavailable [phone] Areli Zuniga Unavailable Unavailable Ning Lowery DNP Unavailable [phone] Tobin Terrell MD Unavailable [phone] Encounter Details Date Type Department Care Team (Late st Contact Info) Description 05/15/2024 Documentation [facility] Main [address] [address] Forrest Domínguez, BOUCHRA Social History Tobacco Use Types Packs/Day Years Used Date Smoking Tobacco: Never Smokeless Tobacco: Never Alcohol Use Standard Drinks/Week Comments Not Currently 0 (1 standard drink = 0.6 oz pur e alcohol) [facility] Utilities Answer Date Recorded In the [...] often do you attend chur ch or zoroastrianism services? Never 05/13/2024 Do you belong to any clubs o r organizations such as rastafari groups, unions, fraternal or athletic groups, or [...] place to sleep or slept in a senior living (including now)? No 09/01/2023 Housing Stability Vital Sign Answer Samy e Recorded In the last 12 months, was t here a time when you were not able to pay the mortgage or rent on time? No 05/13/2024 In the past 12 months, how m any times have you moved where you were living? 0 05/13/2024 At any time in the past 12 m [facility], were you homeless or living in a senior living (including now)? No 05/13/2024 Personal Safety Answer Date Recorded Have you ever been in or are you currently in a harmful physical or emotional relationship or is someone making you feel afraid or unsafe? 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 difficile suspected 07/24/2024 07/24/202407/29 3:05 AM STATION JAILER COVID: Suspected 08/13/2024 08/13/2024 08/13/2024 1:30 PM CDT COVID: Suspected 11/01/2024 11/01/2024 11/01/2024 2:39 PM CDT Ring Surveillance: C. auris 11/08/2024 11/08/2024 11/15/2024 7:26 PM CDT COVID: Suspected 12/23/2024 12/23/2024 12/23/2024 5:12 PM CDT documented as of this encounter Care Teams Peanut Shaker Relationship Specialty Start Date End Date Laurent Gonzalez MD [address] [place] [address] PCP - General Hematology and Oncology 10/18/23 Ray Sainz MD [address] [facility] [address] [place] [address] 02/10/20 [place] [address] [facility] [address] [place] [address] Consulting Physician Family Medicine 05/05/22 Miscellaneous, Not In File 12/14/22 Mariam Hedrick Outpatient Cryptologic Linguist 05/31/24 08/15/24 Ning Lowery DNP [address] [facility] [address] [place] [address] Nurse Practitioner Internal Medicine 05/31/24 08/15/24 Ana Duran, BOUCHRA [address] [facility] [address] [place] [address] LAUREN Outpatient Cryptologic Linguist 07/29/24 08/02/24 Areli Zuniga Outpatient Cryptologic Linguist 08/16/24 09/23/24 Ning Lowery DNP [address] [facility] [address] [place] [address] Nurse Practitioner Internal Medicine 08/16/24 09/23/24 [place] [address] [facility] [address] [place] [address] Consulting Physician Orthopedic Surgery 08/18/24 documented as of this encounter
--- OUTSIDE RECORDS SUMMARY | 2025-02-14 19:19 | XMS_ITS | Encounter Summary ---
Author Organization [facility] Healthcare Address [address] [place] [address] Care Team Providers Care Contract Lead Name Role Phone Ray Sainz MD Unavailable [phone] Gordo Herrera MD Unavailable [phone] Miscellaneous, Not In File Unavailable Unava ilable Laurent Gonzalez MD Primary Care Provider [phone] Mariam Hedrick Unavailable Unavailable Ning Lowery DNP Unavailable [phone] Ana Duran RN Unavailable [phone] Areli Zuniga Unavailable Unavailable Ning Lowery DNP Unavailable [phone] Tobin Terrell MD Unavailable [phone] Encounter Details Date Type Department Care Team (Late st Contact Info) Description 08/02/2024 [facility] S[facility] Initial Eligibility Review [facility] Sickle Cell Disease Community Health Worker [address] [place] [id number] Divya Wallace Social History Tobacco Use Types Packs/Day Years Used Date Smoking Tobacco: Never Smokeless Tobacco: Never Alcohol Use Standard Drinks/Week Comments Not Currently 0 (1 standard drink = 0.6 oz pur e alcohol) [facility] Utilities Answer Date Recorded In the past 12 months has [employer], gas, oil, or water Up[employer] threatened to shut off services in your home? No 07/26/2024 Social Connection and Isolation Panel Answer Date Recorded In a typical week, how many times do you talk on the phone with family, friends, or neighbors? Never 07/26/2024 How often do you get together with friends or re latives? Never 07/26/2024 How often do you attend evangelical or buddhism serv ices? Never 07/26/2024 Do you belong to any clubs o r organizations such as evangelical groups, unions, fraternal or athletic groups, or [...] in a residential (including now)? No 09/01/2023 Housing Stability Vital Sign Answer Samy e Recorded In the last 12 months, was t here a time when you were not able to pay the mortgage or rent on time? No 07/26/2024 In the past 12 months, how m any times have you moved where you were living? 0 07/26/2024 At any time in the past 12 m [facility], were you homeless or living in a residential (including now)? No 07/26/2024 Personal Safety Answer Date Recorded Have you ever been in or are you currently in a harmful physical or emotional relationship or is someone making you feel afraid or unsafe? 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 Gender Identity Male 12/06/2024 9:44 PM CDT [...] documented as of this encounter Care Teams Contract Lead Relationship Specialty Start Date End Date Laurent Gonzalez MD [address] [place] [address] PCP - General Hematology and Oncology 10/18/23 Ray Sainz MD [address] [facility] [address] [place] [address] 02/10/20 [place] [address] [facility] [address] [place] [address] Consulting Physician Family Medicine 05/05/22 Miscellaneous, Not In File 12/14/22 Mariam Hedrick Outpatient Projection Technician 05/31/24 08/15/24 Ning Lowery DNP [address] [facility] [address] [place] [address] Nurse Practitioner Internal Medicine 05/31/24 08/15/24 Ana Duran, RN [address] [facility] [address] [place] [address] SHOP Outpatient Projection Technician 07/29/24 08/02/24 Areli Zuniga Outpatient Projection Technician 08/16/24 09/23/24 Ning Lowery DNP [address] [facility] [address] [place] [address] Nurse Practitioner Internal Medicine 08/16/24 09/23/24 [place] [address] [facility] [address] [place] [address] Consulting Physician Orthopedic Surgery 08/18/24 documented as of this encounter
--- OUTSIDE RECORDS SUMMARY | 2025-02-14 19:19 | XMS_ITS | Clinical Summary ---
Author Organization [facility] [employer] Address [address] [place] [address] Care Team Providers Care Manager Mba Name Role Phone Laurent Gonzalez MD Primary Care Provider [phone] Source Comments [facility] [employer],non-owned Affiliates and Associated Physician Practices is amultiple site organization consisting of ambulatory clinics and hospital sitesin [place], [place], [place] and [place]. This disclosure is being madepursuant to the Care Everywhere program and may not contain all information available regarding this patient. Last updated 18.[facility] [employer] Allergies Active Allergy Reactions Criticality Noted Date [...] once daily 30 tablet 1 4 Active oxyCODONE-aceta minophen (Percocet) 10-325 MG tabletIndicatio ns:Sickle cell pain crisis (HCC) Take 1 (one) tablet by mouth every 6 hours as needed for Pain 10 tablet 5 Active potassium chloride ER (Klor-Con M) 20 MEQ tablet Take 1 (one) tablet by mouth once daily 30 tablet 4 09/29/19 24 Discontinu ed(No Pharm No AVS) oxyCODONE-aceta minophen (Percocet) 10-325 MG tabletIndicatio ns:Sickle cell crisis (HCC) Take 1 (one) tablet by mouth every 6 hours as needed for Pain 30 tablet 5 01/31/20 25 Discontinu ed(List Clean-Up) Active Problems Problem Noted Date Diagnosed Date [...] type 1 Chest pain, unspecified type 03/08/2023 Assessment & Plan (02/02/2025 8:14 AM CDT): Most consistent with sickle cell crisis no evidence chest syndrome at present time Continue clinical follow up at present Management of sickle cell diseases about Patient states he is usually controlled on q.3 hours Dilaudid Increased pain management to Dilaudid 2 mg IV q.3 hours p.r.n. 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 -Cont albuterol PRN Resolved Problems Problem Noted Date Diagnosed Date Resolved Date Sickle cell pain crisis 01/30/202501/25 Assessment & Plan (02/02/2025 8:14 AM CDT): I agree with plans for folic acid supplementation IV narcotics and aggressive hydration Follow up with outpatient hematology at discharge Encouraged him leukocytosis is overall mild and now normal without any evidence infection consistent with improvement Follow up at [facility] at discharge Please re-consult p.r.n. Sickle cell pain crisis 12/24/202412/24 Sickle cell crisis 08/19/2024 Vaso-occlusive sickle cell crisis 06/30/2024 07/14/2024 Sickle cell pain crisis 05/15/2024 01/09/2024 Sickle cell pain crisis 04/06/202403/27 Sickle cell pain crisis 02/04/202401/25 Vaso-occlusive sickle cell crisis 01/19/2024 02/02/2024 Sickle cell pain crisis 01/03/202412/25 Sickle cell crisis 12/04/2023 4 Sickle cell pain crisis 11/08/202310/25 Sickle cell crisis 09/28/2023 4 Sickle cell crisis 06/27/2023 4 Sickle cell crisis 03/19/2023 3 Sickle cell pain crisis 03/08/202302/24 Sickle cell pain crisis 12/27/202212/24 Sickle cell crisis 08/14/2022 3 Sickle cell pain crisis 11/26/201511/23 Encounters Date Type Department Care Team Description 01/29/2025 10:31 PM CDT - 02/13/2025 9:55 PM CDT Hospital Encounter [facility] [address] [place] [address] Mohamud Palacio MD Ghazal-Albar, Naman, MD Saeed, Salman, MD Syamala, MD Brandi Rosales, MD Samantha Comer, MD Daron Hospitalist Discharge Disposition: Home or Self Care 01/29/2025 Travel 12/23/2024 11:02 PM CDT - 12/31/2024 11:06 AM CDT Hospital Encounter [facility] [address] [place] [address] Mohamud Palacio MD Makhoul, MD Ralú Oropeza Sandhya, MD Inampudi, MD [facility] Discharge Disposition: Home or Self [...] and heating? Not hard at all 02/11/2025 [facility] [place] [facility] Occupat ional Health - Occupational Stress [...] place to sleep or slept in a custodial (including now)? No 01/23/2024 Housing Stability Vital Sign Answer Samy e Recorded In the last 12 months, was t here a time when you were not able to pay the mortgage or rent on time? No 02/11/2025 In the past 12 months, how m any times have you moved where you were living? 0 02/11/2025 At any time in the past 12 m [facility], were you homeless or living in a custodial (including now)? No 02/11/2025 Sex and Gender Information Value Date Recorded Sex Assigned at Not on file Legal Sex Male 5:02 AM SUBMARINE ADVISORY TEAM WATCH OFFICER Gender Identity Not on file Sexual Orientation Not on file Last Filed Vital Signs Vital Sign Reading Time Taken Comments Blood Pressure 135/86 02/13/2025 8:20 PM CDT Pulse 92 02/13/2025 8:20 PM CDT Temperature 36.8 C (98.2 F) 02/13/2025 8:20 PM CDT Respiratory Rate 18 02/13/2025 11:0 9 AM CDT Oxygen Saturation 97% 02/13/2025 8:20 PM CDT Inhaled Oxygen Concentration 21% 04/13/2023 8 :31 PM SUBMARINE ADVISORY TEAM WATCH OFFICER Weight 108.8 kg (239 lb 14.4 oz) 01/30/2025 6:13 AM CDT Height 177.8 cm (5' 10) 01/30/2025 6:13 AM CDT Body Mass Index 34.42 01/30/2025 6:13 AM CDT Plan of Treatment Health Maintenance [...] VACCINE (1 - 3-dose SCDM series) 11/06/2023 DEPRESSION SCREENING 05/26/2024 COVID-19 VACCINE (2 - 2024-2 6 season) 2025 01/23/2022 INFLUENZA VACCINE (#1) 2025 02/20/2011, 2008 Sickle Cell - UA + Micro 05/16/2025 024, 01/19/2024, 06/20/2023, Additional history exists Sickle Cell - CMP 01/29/2026 01/29/2025, , 12/24/2024, Additional history exists Sickle Cell - CBC 7+ years 02/10/202602/10, 02/09/2025, 02/03/2025, Additional history exists Sickle Cell - Retic Count 7+ years 02/10/2026 02/10/2025, 02/02/2025, 01/30/2025, Additional history exists DTAP/TDAP/TD VACCINES (3 - [...] PANEL AM Draw 02/09/2025 9:47 AM CDT LDH BLOOD Routine 02/07/2025 9:58 AM CDT HGB HCT PANEL AM Draw 02/07/2025 9:58 AM CDT LDH BLOOD Routine 02/04/2025 1:17 PM CDT HGB HCT PANEL AM Draw 02/04/2025 1:17 PM CDT DIFFERENTIAL MANUAL AM Draw 02/03/2025 6 :56 AM CDT LDH BLOOD Routine 02/03/2025 6:56 AM CDT BASIC METABOLIC PANEL (CALCIUM TOTAL) AM Draw 02/03/2025 6:56 AM CDT CBC W AUTO DIFFERENTIAL AM Draw 02/03/2025 6:56 AM CDT LDH BLOOD Routine 02/02/2025 1:21 AM CDT RETIC COUNT AM Draw 02/02/2025 1:21 AM CDT CK BLOOD Routine 02/02/2025 1:21 AM CDT BASIC METABOLIC PANEL (CALCIUM TOTAL) AM Draw 02/02/2025 1:21 AM CDT CBC W/O DIFFERENTIAL AM Draw 02/02/2025 1:21 AM CDT CARDIAC RHYTHM STRIP ORDER 02/01/2025 4:53 PM CDT CBC W/O DIFFERENTIAL Routine 01/31/2025 10:58 PM CDT Sickle cell pain crisis (HCC) BASIC METABOLIC PANEL (CALCIUM TOTAL) Routine 01/31/2025 10:58 PM CDT Sickle cell pain crisis (HCC) XR CHEST 1VW PORTABLE STAT 01/30/2025 6:39 AM CDT Chest pain, unspecified type SLIDE SCAN HEMATOLOGY STAT 01/30/2025 3:40 AM CDT RETIC COUNT STAT 01/30/2025 3:40 AM CDT TROPONIN-I HIGH SENSITIVE REFLEX 1HOUR Timed 01/30/2025 3:40 AM CDT CBC W AUTO DIFFERENTIAL STAT 01/30/2025 3:40 AM CDT COMPREHENSIVE METABOLIC PANEL STAT 01/29/2025 11:28 PM CDT TROPONIN-I HIGH SENSITIVE BASELINE + 1HR STAT 01/29/2025 11:28 PM CDT EKG 12-LEAD Routine 01/29/2025 10:02 PM CDT Chest pain, unspecified type CARDIAC EKG ORDER 01/07/2025 10: 02 PM [...] MICROSCOPIC NO CULTURE STAT 05/16/2024 3:37 AM SUBMARINE ADVISORY TEAM WATCH OFFICER HIV-1 HIV-2 ANTIBODY + HIV P24 AG PANEL STAT 02/16/2019 7:33 PM CDT from Last 3 Months or Most Recently Relevant to Health Maintenance Results * (ABNORMAL) RETIC COUNT (02/10/2025 4:10 PM CDT) Only the most recent of4 resultswithin the time period is included. Reticulocyte Percent 14.36(H) 0.50 - 2.40 % 02/10/2025 4:16 PM CDT [facility] Reticulocyte Absolute 0.3676(H) 0.0200 - 0.1100 x10E6/uL 02/10/2025 4:16 PM CDT [facility] Ret-HE 33.7 29.0 - 37.9 pg 02/10/2025 4:16 PM CDT [facility] Immature Reticulocyte Fraction 39.3(H) 1.8 - 15.2 % 02/10/2025 4:16 PM CDT [facility] Blood BLOOD SPECIMEN / Unknown Lab Venipuncture / Unknown 02/10/2025 4:10 PM CDT 02/10/2025 4:13 PM CDT us Asm I Brandi MAHER LAB - HEMATOLOGY ORDERABLES F inal Result [facility] [address] [place] [address] * (ABNORMAL) CBC W AUTO DIFFERENTIAL (02/10/2025 4:10 PM CDT) Only the most recent of5 resultswithin the time period is included. WBC 9.5 4.0 - 10.7 x10E9/L 02/10/2025 4:16 PM CDT [facility] RBC Count 2.56(L) 4.30 - 5.80 x10E12/L 02/10/2025 4:16 PM CDT [facility] Hemoglobin 8.0(L) 13.3 - 17.5 g/dL 02/10/2025 4:16 PM CDT [facility] Hematocrit 22.6(L) 38.7 - 51.1 % [...] - 1.6 % 02/10/2025 4:16 PM CDT [facility] Immature Granulocytes % 0.2 0.0 - 1.0 % 02/10/2025 4:16 PM CDT [facility] Neutrophil Absolute 4.52 1.60 - 7.50 x10E9/L 02/10/2025 4:16 PM CDT [facility] Lymphocyte Absolute 3.42 1.00 - 4.40 x10E9/L 02/10/2025 4:16 PM CDT [facility] Monocyte Absolute 1.21(H) 0.15 - 1.00 x10E9/L 02/10/2025 4:16 PM CDT [facility] Eosinophil Absolute 0.26 0.00 - 0.60 x10E9/L 02/10/2025 4:16 PM CDT [facility] Basophil Absolute 0.06 0.00 - 0.13 x10E9/L 02/10/2025 4:16 PM CDT [facility] NRBC 0.6(H) <=0.0 /100 WBC 02/10/2025 4:16 PM CDT [facility] Blood BLOOD SPECIMEN / Unknown Lab Venipuncture / Unknown 02/10/2025 4:10 PM CDT 02/10/2025 4:13 PM CDT Thomas Paz MD LAB - HEMATOLOGY ORDERABLES F inal Result [facility] [address] [place], [place] [id number] * (ABNORMAL) RENAL FUNCTION PANEL (02/10/2025 4:10 PM CDT) Only the most recent of2 resultswithin the time period is included. Glucose 108(H) 70 - 99 mg/dL 02/10/2025 4:26 PM CDT [facility] Sodium 139 136 - 145 mmol/L 02/10/2025 4:26 PM CDT [facility] Potassium 3.1(L) 3.5 - 5.1 mmol/L 02/10/2025 4:26 PM CDT -[facility] Chloride 105 98 - 107 mmol/L 02/10/2025 4:26 PM CDT -[facility] CO2 25 22 - 29 mmol/L 02/10/2025 4:26 PM CDT [facility] Calcium 8.4 8.4 - 10.4 mg/dL 02/10/2025 4:26 PM CDT [facility] Anion Gap 9 6 - 16 mmol/L 02/10/2025 4:26 PM CDT [facility] BUN <3(L) 5.3 - 18.7 mg/dL 02/10/2025 4:26 PM CDT [facility] Creatinine 0.57(L) 0.72 - 1.25 mg/dL 02/10/2025 4:26 PM T [facility] Albumin 3.6 3.1 - 4.5 gm/dL 02/10/2025 4:26 PM T [facility] Phosphorus 3.0 2.5 - 4.5 mg/dL 02/10/2025 4:26 PM T [facility] eGFR by CKD-EPI >90 >=90 mL/min/1.7 3 m2 02/10/2025 4:26 PM T [facility] Comment:Estimated Glomerular Filtration Rate (eGFR) calculated using the CKD-EPI Creatinine Equation (2020), per the National Kidney Foundation and [place] [employer] Neph[employer] recommendations. Blood BLOOD SPECIMEN / Unknown Lab Venipuncture / Unknown 02/10/2025 4:10 PM CDT 02/10/2025 4:13 PM CDT us Thomas Paz MD LAB - CHEMISTRY ORDERABLES Fi nal Result -[facility] [address] [place] [address] * (ABNORMAL) HGB HCT PANEL (02/07/2025 9:58 AM CDT) Only the most recent of2 resultswithin the time period is included. Hemoglobin 8.3(L) 13.3 - 17.5 g/dL 02/07/2025 10:18 AM CDT [facility] Hematocrit 24.1(L) 38.7 - 51.1 % 02/07/2025 10:18 AM CDT [facility] Blood BLOOD SPECIMEN / Unknown Lab Venipuncture / Unknown 02/07/2025 9:58 AM CDT 02/07/2025 10:14 AM CDT us Amnadeep Sheehan MD LAB - HEMATOLOGY OR DERABLES Final Result Performing Organization Address City/[facility]/ZIP Co de Phone Number [facility] [address] [place] [address] * (ABNORMAL) LDH BLOOD (02/07/2025 9:58 AM CDT) Only the most recent of4 resultswithin the time period is included. LDH 418(H) 125 - 220 U/L 02/07/2025 10:28 AM CDT [facility] Blood BLOOD SPECIMEN / Unknown Lab Venipuncture / Unknown 02/07/2025 9:58 AM CDT 02/07/2025 10:15 AM CDT us Amandeep Sheehan MD LAB - CHEMISTRY ORD ERABLES Final Result Performing Organization Address [facility]/ZIP Co de Phone Number [facility] [address] [place] [address] * (ABNORMAL) DIFFERENTIAL MANUAL (02/03/2025 6:56 AM CDT) Neutrophil % 43 41 - 74 % 02/03/2025 8:20 AM CDT [facility] Lymphocyte % 46 17 - 47 % 02/03/2025 8:20 AM CDT [facility] Monocyte % 10 3 - 11 % 02/03/2025 8:20 AM CDT [facility] Eosinophil % 1 0 - 7 % 02/03/2025 8:20 AM CDT [facility] Neutrophil Absolute 4.26 1.60 - 7.50 x10E9/L 02/03/2025 8:20 AM CDT [facility] Lymphocyte Absolute 4.55(H) 1.00 - 4.40 x10E9/L 02/03/2025 8:20 AM CDT [facility] Monocyte Absolute 0.99 0.15 - 1.00 x10E9/L 02/03/2025 8:20 AM CDT [facility] Eosinophil Absolute 0.10 0.00 - 0.60 x10E9/L 02/03/2025 8:20 AM CDT [facility] RBC Morphology REVIEWED 02/03/2025 8:20 AM CDT [facility] Basophilic Stippling MODERATE(A) (none) 02/03/2025 8:20 AM CDT [facility] Polychromatic Cells MODERATE(A) (none) 02/03/2025 8:20 AM CDT [facility] Sickle Cells MODERATE(A) (none) 02/03/2025 8:20 AM CDT [facility] Target Cells MODERATE(A) (none) 02/03/2025 8:20 AM CDT [facility] Blood BLOOD SPECIMEN / Unknown Venipuncture / Unknown 02/03/2025 6:56 AM CDT 02/03/2025 7:09 AM CDT Amandeep Sheehan MD LAB - HEMATOLOGY OR DERABLES Final Result [facility] [address] [place] [address] * (ABNORMAL) BASIC METABOLIC PANEL (CALCIUM TOTAL) (02/03/2025 6:56 AM CDT) Only the most recent of5 resultswithin the time period is included. Glucose 89 70 - 99 mg/dL 02/03/2025 7:23 AM CDT [facility] Sodium 141 136 - 145 mmol/L 02/03/2025 7:23 AM CDT [facility] Potassium 3.8 3.5 - 5.1 mmol/L 02/03/2025 7:23 AM CDT [facility] Chloride 108(H) 98 - 107 mmol/L 02/03/2025 7:23 AM CDT [facility] CO2 26 22 - 29 mmol/L 02/03/2025 7:23 AM CDT [facility] Calcium 8.0(L) 8.4 - 10.4 mg/dL 02/03/2025 7:23 AM CDT [facility] Anion Gap 7 6 - 16 mmol/L 02/03/2025 7:23 AM CDT [facility] BUN 4(L) 5.3 - 18.7 mg/dL 02/03/2025 7:23 AM CDT [facility] Creatinine 0.57(L) 0.72 - 1.25 mg/dL 02/03/2025 7:23 AM CDT [facility] eGFR by CKD-EPI >90 >=90 mL/min/1.7 3 m2 02/03/2025 7:23 AM T [facility] Comment:Estimated Glomerular Filtration Rate (eGFR) calculated using the CKD-EPI Creatinine Equation (2020), per the National Kidney Foundation and [place] [employer] Nephrology recommendations. Blood BLOOD SPECIMEN / Unknown Venipuncture / Unknown 02/03/2025 6:56 AM CDT 02/03/2025 7:09 AM CDT us Amandeep Sheehan MD LAB - CHEMISTRY ORD ERABLES Final Result [facility] [address] [place] [address] * (ABNORMAL) CBC W/O DIFFERENTIAL (02/02/2025 1:21 AM CDT) Only the most recent of3 resultswithin the time period is included. WBC 8.9 4.0 - 10.7 x10E9/L 02/02/2025 1:49 AM CDT [facility] RBC Count 2.54(L) 4.30 - 5.80 x10E12/L 02/02/2025 1:49 AM CDT [facility] Hemoglobin 7.9(L) 13.3 - 17.5 g/dL [...] LAB - HEMATOLOGY ORDERABLES Stephanie l Result -[facility] [address] [place] [address] * (ABNORMAL) CK BLOOD (02/02/2025 1:21 AM CDT) CK 29(L) 30 - 200 U/L 02/02/2025 1:41 AM CDT [facility] Blood BLOOD SPECIMEN / Unknown Lab Venipuncture / Unknown 02/02/2025 1:21 AM CDT 02/02/2025 1:25 AM CDT Rachel Sofia MD LAB - CHEMISTRY ORDERABLES Final Result [facility] [address] [place] [address] * CARDIAC RHYTHM STRIP ORDER (02/01/2025 4:53 PM CDT) Only the most recent of2 resultswithin the time period is included. Narrative 02/01/2025 4:53 PM CDT Ordered by an unspecified provider. us Scanned Document CARDIAC SERVICES ORDERABLES Rashaun missy Result - Final * XR Chest 1Vw Portable (01/30/2025 6:39 AM CDT) Only the most recent of2 [...] Martin MD on 01/30/2025 8:40 AM Mohamud Palacio MD DIAGNOSTIC IMAGING ORDERABLES F inal Result * TROPONIN-I HIGH SENSITIVE REFLEX 1HOUR (01/30/2025 3:40 AM CDT) Only the most recent of2 resultswithin the time period is included. Pathologist [facility] Troponin I High Sensitive <3 <=35 ng/L 01/30/2025 4:54 AM CDT [facility] Delta Troponin I HS 01/30/2025 4:54 AM CDT [facility] Comment:Delta value intentio tyrell not calculated. Baseline to 1 hour specimen collection interval exceeded. Blood BLOOD SPECIMEN / Unknown Lab Venipuncture / Unknown 01/30/2025 3:40 AM CDT 01/30/2025 4:33 AM CDT Mohamud Palacio MD LAB - CHEMISTRY ORDERABLES Stephanie l Result -[facility] [address] [place] [address] * (ABNORMAL) SLIDE SCAN HEMATOLOGY (01/30/2025 3:40 AM CDT) [facility] RBC Morphology REVIEWED 01/30/2025 5:30 AM CDT [...] AM CDT 01/30/2025 3:43 AM CDT Mohamud Palacio MD LAB - HEMATOLOGY ORDERABLES Fin al Result Performing Organization Address [facility] Co de Phone Number [facility] [address] [place] [phone] * TROPONIN-I HIGH SENSITIVE BASELINE + 1HR (01/29/2025 11:28 PM CDT) Only the most recent of2 resultswithin the time period is included. [facility] Troponin I High Sensitive <3 <=35 ng/L 01/29/2025 11:52 PM CDT [facility] Blood BLOOD SPECIMEN / Unknown Venipuncture / Unknown 01/29/2025 11:28 PM CDT 01/29/2025 11:28 PM CDT Mohamud Palacio MD LAB - CHEMISTRY ORDERABLES Stephanie l Result Performing Organization Address [facility] de Phone Number [facility] [address] [place] [phone] * (ABNORMAL) COMPREHENSIVE METABOLIC PANEL (01/29/2025 11:28 PM CDT) Only the most recent of3 resultswithin the time period is included. [facility] Glucose 86 70 - 99 mg/dL 01/29/2025 11:48 PM CDT [facility] Sodium 138 136 - 145 mmol/L 01/29/2025 11:48 PM CDT [facility] Potassium 4.3 3.5 - 5.1 mmol/L 01/29/2025 11:48 PM CDT [facility] Chloride 110(H) 98 - 107 mmol/L 01/29/2025 11:48 PM CDT [facility] CO2 18(L) 22 - 29 mmol/L 01/29/2025 11:48 PM CDT [facility] Calcium 8.5 8.4 - 10.4 mg/dL 01/29/2025 11:48 PM CDT [facility] Anion Gap 10 6 - 16 mmol/L 01/29/2025 11:48 PM CDT [facility] BUN 3(L) 5.3 - 18.7 mg/dL 01/29/2025 11:48 PM CDT [facility] Creatinine 0.60(L) 0.72 - 1.25 mg/dL 01/29/2025 11:48 PM CDT [facility] Alkaline Phosphatase 253(H) 40 - 150 U/L 01/29/2025 11:48 PM CDT [facility] ALT 26 6 - 57 U/L 01/29/2025 11:48 PM CDT [facility] AST 72(H) 10 - 48 U/L 01/29/2025 11:48 PM CDT [facility] Protein Total 7.9 6.4 - 8.3 gm/dL 01/29/2025 11:48 PM CDT [facility] Albumin 3.8 3.1 - 4.5 gm/dL 01/29/2025 11:48 PM CDT [facility] Bilirubin Total 5.7(H) 0.2 - 1.2 mg/dL 01/29/2025 11:48 PM CDT [facility] eGFR by CKD-EPI >90 >=90 mL/min/1.7 3 m2 01/29/2025 11:48 PM CDT [facility] Comment:Estimated Glomerular Filtration Rate (eGFR) calculated using the CKD-EPI Creatinine Equation (2020), per the National Kidney Foundation and [place] [employer] Nephrology recommendations. Blood BLOOD SPECIMEN / Unknown Venipuncture / Unknown 01/29/2025 11:28 PM CDT 01/29/2025 11:28 PM CDT us Mohamud Palacio MD LAB - CHEMISTRY ORDERABLES Stephanie bejarano Result -[facility] [address] [place] [address] * EKG 12-Lead (01/29/2025 10:02 PM CDT) Only the most recent of3 resultswithin the time period is included. Ventricular Rate 79 BPM [facility] Atrial Rate 79 BPM [facility] P-R Interval 200 ms [facility] QRS Duration ms 90 ms [facility] Q-T Interval ms 396 ms [facility] QTC Calculation (Bezet) 454 ms [facility] Calculated P [place] 32 degrees [facility] Calculated R [place] 17 degrees [facility] Calculated T [place] 20 degrees [facility] Interpretation EKG Normal sinus rhythm Normal ECG When compared with ECG of 24-DEC-2024 11:49, No significant change was found Confirmed by MK ROBERTSON MD ([id number]) on 01/31/2025 3:38:24 PM [facility] 01/29/2025 10:0 2 PM CDT 01/31/2025 3:38 PM CDT us Mohamud Palacio MD ECG ORDERABLES Edited Result - Final [facility] * CARDIAC EKG ORDER (01/07/2025 10:02 PM CDT) Only the most recent of2 resultswithin the time period is included. Narrative 01/07/2025 10:02 PM CDT Ordered by an unspecified provider. us Scanned Document CARDIAC SERVICES ORDERABLES Fin al Result * XR Abdomen Kub (12/26/2024 5:53 PM [...] MD DIAGNOSTIC IMAGING ORDERABLES Final Result * MAGNESIUM BLOOD (12/25/2024 12:08 PM CDT) Only the most recent of2 resultswithin the time period is included. Pathologist [facility] Magnesium 1.9 1.6 - 2.6 mg/dL 12/25/2024 12:31 PM CDT [facility] Blood BLOOD SPECIMEN / Unknown Lab Venipuncture / Unknown 12/25/2024 12:08 PM CDT 12/25/2024 12:11 PM CDT Maribel Ji CAPSULE FILLING MACHINE OPERATOR-[employer] LAB - CHEMISTRY O RDERABLES Final Result [facility] [address] [place] [address] * (ABNORMAL) URINALYSIS REFLEX TO MICROSCOPIC NO CULTURE (05/16/2024 3:37 AM SUBMARINE ADVISORY TEAM WATCH OFFICER) Color UA Munira(A) Straw, Yellow 05/16/2024 4:04 AM SUBMARINE ADVISORY TEAM WATCH OFFICER [facility] Clarity UA Clear Clear 05/16/2024 4:04 AM SUBMARINE ADVISORY TEAM WATCH OFFICER [facility] Specific [place] UA 1.012 1.005 - 1.030 05/16/2024 4:04 AM [facility] pH UA 6.0 5.0 - 8.0 pH 05/16/2024 4:04 AM [facility] Protein UA 1+(A) Negative 05/16/2024 4:04 AM [facility] Glucose UA Negative Negative 05/16/2024 4:04 AM [facility] Ketone UA Negative Negative 05/16/2024 4:04 AM [facility] Bilirubin UA Negative Negative 05/16/2024 4:04 AM [facility] Blood UA Negative Negative 05/16/2024 4:04 AM [facility] Nitrite UA Negative Negative 05/16/2024 4:04 AM [facility] Leukocyte Esterase Trace(A) Negative 05/16/2024 4:04 AM [facility] Urobilinogen UA Negative Negative mg/dL 05/16/2024 4:04 AM [facility] RBC UA 0-2 None Seen, 0-2, 3-5 /HPF 05/16/2024 4:04 AM [facility] WBC UA 6-10(A) None Seen, 0-5 /HPF 05/16/2024 4:04 AM [facility] Squamous Epithelial Cells UA 0-2 None Seen, 0-2, 3-5 /HPF 05/16/2024 4:04 AM [facility] Mucus UA 2+ /LPF 05/16/2024 4:04 AM [facility] Hyaline Casts UA 0-2 None Seen, 0-2 /LPF 05/16/2024 4:04 AM [facility] Urine URINE SPECIMEN OBTAINED BY CLEAN CATCH PROCEDURE / Unknown Collection / Unknown 05/16/2024 3:37 AM SUBMARINE ADVISORY TEAM WATCH OFFICER 05/16/2024 3:48 AM [facility] - 05/16/2024 4:04 AM [facility] us Abena Archer APRN-[facility] - URINALYSIS ORDERAB LES Final Result [facility] [address] [place] [id number], [facility] [phone] * HIV-1 HIV-2 ANTIBODY + HIV P24 AG PANEL (02/16/2019 7:33 PM CDT) HIV1/2 Ab + P24 Ag Non Reactive Non Reactive 02/16/2019 8:22 PM CDT [facility] Blood BLOOD SPECIMEN / Unknown Venipuncture / Unknown 02/16/2019 7:33 PM CDT 02/16/2019 7:40 PM CDT Narrative [facility] - 02/16/2019 8:22 PM CDT No Laboratory evidence of HIV infection. us Stvee Flynn MD LAB - CHEMISTRY ORDERA BLES Final Result [facility] [facility] [address] [place] [address] from Last 3 Months or Most Recently Relevant to Health Maintenance Additional Health Concerns Infection Onset Date Last Indicated C Diff Hx 09/29/2023 09/29/2023 Insurance MEDICAID MARITZA GANNON Advance Directives * Full Code (Latest Code Status on File) Date Activated Date Inactivated Comments 01/30/2025 6:19 AM 02/13/2025 11:06 PM * Full Code Date Activated Date Inactivated Comments 12/24/2024 5:47 AM 12/31/2024 12:06 PM * Full Code Date Activated Date Inactivated Comments 12/24/2024 5:26 AM 12/24/2024 5:47 AM * Full Code Date Activated Date Inactivated Comments 09/08/2024 1:39 AM 09/18/2024 11:40 AM * Full Code Date Activated Date Inactivated Comments 09/08/2024 1:36 AM 09/08/2024 1:39 AM Care Teams Manager Mba Relationship Specialty Start Date End Date Laurent Gonzalez MD [address] [place] [address] PCP - General Hematology 01/15/24
--- OUTSIDE RECORDS SUMMARY | 2025-02-14 19:19 | XMS_ITS | Encounter Summary ---
Author Organization [facility] Address [address] [facility] [address] [place] [address] Phone Care Team Providers Care Pediatric Care Coordinator Name Role Phone Ray Sainz MD Unavailable [phone] Gordo Herrera MD Unavailable [phone] Miscellaneous, Not In File Unavailable Unava ilable Laurent Gonzalez MD Primary Care Provider [phone] Tobin Terrell MD Unavailable [phone] Encounter Details Date Type Department Care Team (Late st Contact Info) Description 02/14/2025 Telephone [place] [id number] [facility] Floor [address] [place] [address] Antonina High Social History Tobacco Use Types Packs/Day Years [...] week 12/08/2024 How often do you attend [facility] or baptist services? Never 12/08/2024 Do you belong to any clubs o r organizations such as judaism groups, unions, fraternal or athletic groups, or [...] any time in the past 12 m [facility], were you homeless or living [...] often do you attend chur ch or baptist services? Never 01/03/2025 Do you belong to any clubs o r organizations such as judaism groups, unions, fraternal or athletic groups, or [...] any time in the past 12 m [facility], were you homeless or living in a group home (including now)? 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 documented in this encounter Plan of Treatment Not on file documented as of this encounter Visit Diagnoses Not on filedocumented in this encounter Care Teams Pediatric Care Coordinator Relationship Specialty Start Date End Date Laurent Gonzalez MD [address] [place] [address] PCP - General Hematology and Oncology 10/18/23 Ray Sainz MD [address] [facility] [address] [place] [address] 02/10/20 [place] [address] [address] [facility] [address] [place] [address] Consulting Physician Family Medicine 05/05/22 Miscellaneous, Not In File 12/14/22 [place] [id number] [address] Consulting Physician Orthopedic Surgery 08/18/24 documented as of this encounter
--- OUTSIDE RECORDS SUMMARY | 2025-02-14 19:20 | XMS_ITS | Encounter Summary ---
Author Organization [facility] Address [address] [place] [address] Care Team Providers Care Grocery Supervisor Name Role Phone Ray Sainz MD Unavailable [phone] Miscellaneous, Not In File Primary Care Provider Unavailable Laurent Gonzalez MD Primary Care Provider [phone] Gordo Herrera MD Unavailable [phone] Travis Richards MD Primary Care Provider [phone] Miscellaneous, Not In File Unavailable Unava ilable Daily Cooper MD Primary Care Provider [phone] Laurent Gonzalez MD Primary Care Provider [phone] Mariam Hedrick Unavailable Unavailable Ning Lowery DNP Unavailable [phone] Mariam Hedrick Unavailable Unavailable Ning Lowery DNP Unavailable [phone] Ana Duran RN Unavailable [phone] Areli Zuniga Unavailable Unavailable Ning Lowery DNP Unavailable [phone] Tobin Terrell MD Unavailable [phone] Encounter Details Date Type Department Care Team (Late st Contact Info) Description 11/22/2020 Documentation [facility] Case Management [address] [place] [address] Roula Llanos MSW Social History Tobacco Use Types Packs/Day Years Used Date Smoking Tobacco: Never Smokeless Tobacco: Never Alcohol Use Standard Drinks/Week Comments Not Currently 0 (1 standard drink = 0.6 oz pur e alcohol) Sex and Gender Information Value Date Recorded Sex Assigned at Not on file 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 Roula Llanos LMSW [phone] documented in this encounter Plan of Treatment [...] antipyretics, immunocompetent pt. Flag removed. Talat Shay [phone] 02/09/2023 02/09/2023 02/12/2023 11 :55 AM CDT COVID: Recovered 02/12/2023 02/12/2023 05/13/2023 3:05 AM CORRECTIONAL FACILITY NURSE COVID: Suspected 04/27/2023 04/27/2023 04/27/2023 4:11 AM CORRECTIONAL FACILITY NURSE COVID: Suspected 06/26/2023 06/26/2023 06/26/2023 11:44 PM CORRECTIONAL FACILITY NURSE Diarrhea 06/26/2023 06/26/2023 07/10/2023 3:05 AM CORRECTIONAL FACILITY NURSE C. difficile suspected 08/30/2023 08/30/202308/30 2:37 PM [...] COVID: Suspected 03/30/2024 03/30/2024 03/30/2024 1:29 PM CORRECTIONAL FACILITY NURSE C. difficile suspected 05/12/2024 05/14/202405/14 7:10 AM CORRECTIONAL FACILITY NURSE COVID: Suspected 05/29/2024 05/29/2024 05/29/2024 10:06 PM CORRECTIONAL FACILITY NURSE COVID: Suspected 07/24/2024 07/24/2024 07/24/2024 5:44 AM CORRECTIONAL FACILITY NURSE Norovirus suspected 07/24/2024 07/24/2024 07/30/19 3:05 AM CORRECTIONAL FACILITY NURSE C. difficile suspected 07/24/2024 07/24/202407/29 3:05 AM CORRECTIONAL FACILITY NURSE COVID: Suspected 08/13/2024 08/13/2024 08/13/2024 1:30 PM CDT COVID: Suspected 11/01/2024 11/01/2024 11/01/2024 2:39 PM CDT Ring Surveillance: C. auris 11/08/2024 11/08/2024 11/15/2024 7:26 PM CDT COVID: Suspected 12/23/2024 12/23/2024 12/23/2024 5:12 PM CDT documented as of this encounter Care Teams Grocery Supervisor Relationship Specialty Start Date End Date Miscellaneous, Not In File PCP - General 11/22/20 11/20/21 Laurent Gonzalez MD [address] [place] [address] PCP - General 11/21/21 08/11/22 Travis Richards MD [address] [facility] [address] [place] [address] PCP - General Pediatric Hematology and Oncology 08/12/22 12/18/22 Daily Cooper MD [address] [place] [address] PCP - General Internal Medicine 12/19/22 10/17/23 Laurent Gonzalez MD [address] [place] [address] PCP - General Hematology and Oncology 10/18/23 Ray Sainz MD [address] [facility] [address] [place] [address] 02/10/20 [place] [address] [facility] [address] [place] [address] Consulting Physician Family Medicine 05/05/22 Miscellaneous, Not In File 12/14/22 Mariam Hedrick Outpatient Psychiatric Mental Health Nurse 03/31/24 04/04/24 Ning Lowery DNP [address] [facility] [address] [place] [address] Nurse Practitioner Internal Medicine 03/31/24 04/04/24 Mariam Hedrick Outpatient Psychiatric Mental Health Nurse 05/31/24 08/15/24 Ning Lowery DNP [address] [facility] [address] [place] [address] Nurse Practitioner Internal Medicine 05/31/24 08/15/24 Ana Duran, BOUCHRA [address] [facility] [address] [place] [address] [facility] Outpatient Psychiatric Mental Health Nurse 07/29/24 08/02/24 Areli Zuniga Outpatient Psychiatric Mental Health Nurse 08/16/24 09/23/24 Ning Lowery DNP [address] [facility] [address] [place] [address] Nurse Practitioner Internal Medicine 08/16/24 09/23/24 [place] [address] [address] [facility] [address] [place] [address] Consulting Physician Orthopedic Surgery 08/18/24 documented as of this encounter
--- OUTSIDE RECORDS SUMMARY | 2025-02-14 19:20 | XMS_ITS | Clinical Summary ---
Author Organization [facility] Facility Address [address] [address] Care Team Providers Care Operations Management Trainee Name Role Phone Laurent Gonzalez MD Primary Care Provider Social History Tobacco Use Types Packs/Day Years [...] Vaccine (#1) 2025 1, 05/03/2009, 05/03/2009 Insurance [employer] [place] ([id number]) Care Teams Operations Management Trainee Relationship Specialty Start Date End Date Laurent Gonzalez MD PCP - General Hematology 11/08/24
--- OUTSIDE RECORDS SUMMARY | 2025-02-14 19:20 | XMS_ITS | Clinical Summary ---
Author Organization [facility] Address [address] [place] [address] Care Team Providers Care Director Traffic And Planning Name Role Phone Ray Sainz MD Unavailable [phone] Gordo Herrera MD Unavailable [phone] Miscellaneous, Not In File Unavailable Unava ilable Laurent Gonzalez MD Primary Care Provider [phone] Tobin Terrell MD Unavailable [phone] Allergies Active Allergy Reactions Criticality Noted Date Comments Adhesive Itching Medium 12/23/2024 tape allergy Cefepime Hives,Urticaria Medium 05/15/2024 Ceftriaxone Anaphylaxis,Itchin g,Shortness of breath,Palpitation s High 10/21/2023 Reports throat swelling, itching, unable to breathe. Received benadryl 50 mg IV with improvement in symptoms (10/20/23). Tolerated cefepime 10/2023 with benadryl 25 mg IV pre-medication. Chlorhexidine Towelette Itching,Rash Medium 12/25/2023 Doxycycline Nausea And Vomiting Low 06/11/2024 Fentanyl Other (See comments),Anaphyla xis High 04/25/2022 Numbness lower lip and teeth Ketamine Anxiety,Hallucinat ions Medium 05/24/2023 I freaked out Morphine Hives,Itching,Urti caria,Anaphylaxis, Rash High 11/06/2018 Tolerates Hydromorphone 04/20/22 Has tolerated hydromorphone Piperacillin-Tazobacta m Other (See comments),Rash Medium 05/16/2024 Medications oxyCODONE (ROXICODONE) 15 mg immediate release tabletIndications :Pain Take 1 tablet (15 mg total) by mouth every 4 (four) hours for 10 days 60 tablet 09/13/19 24 Active oxyCODONE (ROXICODONE) 20 mg tabletIndications :Pain Take 1 tablet (20 mg total) by mouth 4 (four) times a day as needed for pain for up to 5 days 12 tablet 11/06/19 24 Active oxyCODONE (ROXICODONE) 20 mg tablet Take 1 tablet (20 mg total) by mouth every 4 (four) hours for 4 days 24 tablet 01/02/20 24 Active oxyCODONE (ROXICODONE) 5 mg immediate release tabletIndications :Pain Take 2 tablets (10 mg total) by mouth every 4 (four) hours as needed for pain for up to 1 day 12 tablet 01/18/20 24 Active folic acid (FOLVITE) 1 mg tabletIndications :To prevent folic acid deficiency sickle cell disease Take 1 tablet (1 mg total) by mouth daily 30 tablet 1 12/10/19 25 Active albuterol HFA (PROVENTIL HFA,VENTOLIN HFA,PROAIR HFA) 90 mcg/actuation inhalerIndication s:Bronchospasm Prevention Inhale 2 puffs every 6 (six) hours as needed for wheezing or shortness of breath 1 each 1 12/10/19 25 Active naloxone (NARCAN) 4 mg/actuation spray,non-aerosol Indications:Opiat e-Induced Respiratory Depression,Opioid Toxicity,risk mitigation for opioid overdose [...] nightly 30 tablet 01/19/20 25 025 Active oxyCODONE ER (OxyCONTIN) 10 mg 12 hr abuse-deterrent tablet Take 1 tablet (10 mg total) by mouth every 12 (twelve) hours for 5 days 10 tablet 01/19/20 25 Active polyethylene glycol (MIRALAX) 17 gram packetIndications :constipation Take 1 packet (17 g total) by mouth daily as needed for constipation 01/19/20 25 Active oxyCODONE-acetami nophen (PERCOCET) 10-325 mg per tabletIndications :Pain,Sickle cell pain Take 1 tablet every 6 hours as needed for severe pain. 30 tablet 12/10/19 25 025 Discontinu ed(Stop Taking at Discharge) ondansetron ODT (ZOFRAN-ODT) 4 mg disintegrating tabletIndications :Nausea and Vomiting Take 1 tablet (4 mg total) by mouth every 6 (six) hours as needed for nausea or vomiting for up to 10 days 20 tablet 01/19/20 25 025 oxyCODONE-acetami nophen (PERCOCET) 10-325 mg per tabletIndications :Pain,Sickle cell pain Take 3 tablets by mouth every 6 (six) hours as needed for pain for up to 5 days 20 tablet 01/19/20 25 025 Active Problems Problem Noted Date Diagnosed Date Acute sickle cell crisis 01/01/2025 Hyperbilirubinemia 12/09/2024 Chronic narcotic dependence 12/09/2024 Malingering 12/09/2024 Urine retention 11/07/2024 Polyuria 11/07/2024 Sickle cell crisis acute chest syndrome 11/02/19 25 Other constipation 09/19/2024 SIRS (systemic inflammatory response syndrome) 0 08/13/2024 Hypomagnesemia 07/24/2024 Overview (07/24/2024): Repleted by ER Monitor Assessment & Plan (07/24/2024 3:17 AM NURSING STAFFING COORDINATOR): Repleted by ER Monitor Sickle cell crisis 05/11/2024 Assessment & Plan (07/24/2024 3:19 AM NURSING STAFFING COORDINATOR): Patient presenting with pain in the back, [...] - Patient requesting dilaudid pushes instead of TANKAGE SUPERVISOR - Changed to dilaudid 2 mg q3hr [...] Patient reports severe shoulder pain 10 on 10, he reports that he has avascular necrosis [...] 05/25/2023 Assessment & Plan (05/27/2023 5:37 PM NURSING STAFFING COORDINATOR): Prior MD noted him refusing lab draws and all meds except opioids, similar to last admission. Also documented non-compliance with recommended outpatient hematology f/u and methadone dosing. Mouth pain 05/01/2023 Assessment & Plan (05/01/2023 5:35 PM NURSING STAFFING COORDINATOR): No lesion or signs of infxn seen. He will need to arrange outpatient dental f/u. - viscous lidocaine prn Insomnia 02/07/2023 Assessment & Plan (02/09/2023 2:08 PM CDT): - ramelteon not effective, trial of trazodone on 02/07 Acute on chronic pain 01/30/2023 Assessment & Plan (05/31/2023 1:59 PM NURSING STAFFING COORDINATOR): P/w complaints of acute on chronic pain. [...] admission would be 48h of IV Dilaudid TANKAGE SUPERVISOR. He demanded that IV pushes of dilaudid be used instead. This request was refused. -IV Dilaudid TANKAGE SUPERVISOR 1mg q15min. Discharge later today. -Scheduled tylenol [...] Started on bowel regimen. - Continue dilaudid TANKAGE SUPERVISOR 2mg q20 min. Weaned dPCA 2mg to [...] to dizziness. He was initially established with [facility], saw Dr. Gonzalez once since his transition to adult care then was following intermittently at [facility] given proximity to his place. There was concern by his media developer Dr. Bryon marquis: opioid use disorder, having [...] conflict and refused to continue care at [facility]. -He has been hospitalized near continuously for the last 2 months. -Hematology and pain team consulted, discussed pain management w/ them -Pain regimen: on 12/21- continue scheduled Tylenol 1 g q.6 hours, switch Oxy 30 mg to q.4 hours instead of p.r.n., added IV toradol 15 g q6hrs and switched his IV dilaudid to TANKAGE SUPERVISOR (0.2 mg q15 mins) to prevent the euphoric effect. TANKAGE SUPERVISOR to 0.5 Q20 on 12/22. Discussed with pt no further uptitrations of TANKAGE SUPERVISOR. Some mild somnolence noted 12/23. Starting lidocaine infusion on 12/24 -Ongoing concerns for pain seeking behavior. Pain should be controlled within few days on the TANKAGE SUPERVISOR or lido gtt then switched to po regimen. Pt agreed to hard deadline of 12/25 for start weaning of the TANKAGE SUPERVISOR and scheduled oxycodone. - 12/25 weaned off TANKAGE SUPERVISOR. Regimen changed to oxycodone Q4+APAP 650 Q4. [...] appointment Assessment & Plan (05/29/2023 3:54 PM NURSING STAFFING COORDINATOR): Hgb at baseline on admission. No chest pain or shortness of breath to suggest acute chest. Continue folic acid. Per chart review, hydroxyurea was discontinued. Has missed appointments to get crizanlizumab infusion. -He plans to F/U with [facility] later this month Assessment & Plan (05/06/2023 1:09 PM NURSING STAFFING COORDINATOR): Pt presents with acute on chronic pain [...] taken for days - had started dilaudid TANKAGE SUPERVISOR at outpatient [facility] recommendation, pt with unrelenting pain so was increased to 1mg/q15 minute lockout. Further increase was declined and he stopped asking - hydroxyurea stopped recently - he was not taking due to c/o dizziness - crizanlizumab d/w heme and he was scheduled for it on 04/30 (along with appt) - [facility] notes reviewed including their ongoing concerns about [...] outpatient heme note would not recommend cont TANKAGE SUPERVISOR past 5-6 days, may need pain consult if unable to be weaned for consideration of lidocaine gtt which is not available at [facility] - Hgb has slowly decreased but still stable in low 7's, no indication for transfusion - per [facility] ok to d/c with on day oxycodone and they will see him in clinic on 05/07 Sickle cell disease with crisis 01/09/2023 Assessment & Plan (10/31/2023 1:47 PM CDT): Images from the original note were not included. HbSS previously followed with Dr. Hernandez in [facility] but due to concerning behaviors including possible opiate diversion and disruptive behaviors, released from clinic. Tentatively has appointment with Dr. Gonzalez from hematology 12/22/2023. Dozens of presentations and admissions to various hospital systems in the interim. - Continue home narcotic regimen (oxycodone) - Home folic acid - TANKAGE SUPERVISOR at 0.5mg IV, lockout q15m, 1h limit 2.0mg; telemetry with pulse ox while on TANKAGE SUPERVISOR. Transitioned to IV pushes instead of TANKAGE SUPERVISOR, 2 mg Q3 hours . - Given prior history of inappropriate refusal to wean and per hematology recommendations previously, would look to wean off TANKAGE SUPERVISOR by day 3-4 as clinically appropriate and recommend to avoid continuing TANKAGE SUPERVISOR beyond 5-6 days with consideration of lidocaine [...] hips/back/long bones/joints including feet. Recently hospitalized at [facility] in [place]. Notes dehydration related to GI losses. Admitted for fluids, pain control. - S/p TANKAGE SUPERVISOR - On 09/01, he is agreeable to transitioning off TANKAGE SUPERVISOR to Dilaudid now at 0.5 mg IV q4h PRN alternating with oxy-APAP 10-325 q4h PRN - Continue on scheduled oxycodone to 15 mg Q4 hours - Increase Gabapentin to 300 mg TID, continue flexeril 10 mg TID and start on amitriptyline 10 mg daily (uptitrate as needed), meloxicam daily. - LR 75 cc/h - Folic acid - Has had concerning behavior in [facility] sickle cell clinic previously, no longer will be seeing his prior media developer Dr. Hernandez - Hematology consulted: He has [...] Reviewed PDMP: On 08/22 on discharge from [facility] by Dr. Shannon Russell received oxycodone 10 mg #30 tablets and Percocet 10-325 mg #90 tablets. 09/11/23- Hb 6.6, Ordered 1PRBC Assessment & Plan (01/16/2023 4:40 PM CDT): Keep media developer apt on 01/29/23. Emergency room today for Sickle Cell Crisis pain relief. Chronic pain syndrome 12/25/2022 Lightheadedness 12/19/2022 Asthma 12/11/2022 Hypokalemia 12/11/2022 Rectal bleeding 12/11/2022 Vasoocclusive sickle cell crisis 09/01/2022 Assessment & Plan (09/04/2022 1:46 PM CDT): Treating for presumed acute pain crisis Between hematologists, with ongoing plan to establish care in [place], [place] (soonest appointment in October but patient [...] bridge script until patient establishes with new media developer next week Assessment & Plan (09/01/2022 10:39 AM CDT): possible pain crises vs functional. Fired from prior media developer due to pain seeking behaviors -percocet 10 q6 hours prn for pain. Dilaudid second line Gastroesophageal reflux disease 06/23/2022 Avascular necrosis of bone of hip, left 05/30/19 23 Chest pain in adult 05/12/2022 SOB (shortness [...] imodium, bentyl - Seen by gastrotenerologist at [facility], recommended outpatient follow up & colonoscopy; no need to pursue inpatient based on findings/data thus far Assessment & Plan (09/02/2022 3:18 PM CDT): C diff negative, stool cultures negative Assessment & Plan (09/01/2022 10:39 AM CDT): Pending stool culture and cdiff Black stools 05/12/2022 Dysuria 05/12/2022 Hypokalemia 05/12/2022 Assessment & Plan (07/24/2024 3:17 AM NURSING STAFFING COORDINATOR): Repleted by ER Monitor Assessment & Plan [...] complication Assessment & Plan (04/27/2023 1:33 AM NURSING STAFFING COORDINATOR): No c/f exacerbation -cont albuterol PRN Assessment [...] Encounters Date Type Department Care Team Description 02/14/2025 3:45 PM CDT Office Visit [facility] Medicine Hematology [address] [facility] Floor [address] [place] [id number] Arrived 02/14/2025 3:00 PM CDT Lab [facility] - Lab Collection [address] [facility] Floor [address] [place] [address] Sickle cell disease with crisis (HCC) 02/14/2025 2:45 PM CDT [facility] [address] [facility] [address] [place] [address] Arrived 02/14/2025 Telephone [facility] Medicine Hematology [address] [place] [address] [address] [place] [id number] Antonina High 01/21/2025 Orders Only [facility] Scanning, Provider 01/19/2025 Orders Only [facility] Scanning, Provider 01/18/2025 10:54 PM CDT - 01/19/2025 12:13 AM CDT Emergency [facility] Emergency Department [address] [place] [address] Abena Diego MD Maljese (Primary Dx); H/O sickle cell disease Discharge Disposition: Discharge to home or self care 01/01/2025 12:47 AM CDT - 01/18/2025 1:24 PM CDT Hospital Encounter [facility] 5 Med Surg [address] [place] [address] Bill Carrasquillo DO Medavaram, Atul, MD Kruse, Brandon Chase, DO Pham, Kevin, DO Chowdhury, Farhanaz, MD Lopez, Manuel Emilio, MD Acute sickle cell crisis (HCC) (Primary Dx) Discharge Disposition: Discharge to home or self care 12/23/2024 2:02 PM CDT - 12/23/2024 8:39 PM CDT Emergency [facility] Emergency Department [address] [place] [address] Elijah Ramirez MD 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) Discharge Disposition: Discharge to home or self care 12/22/2024 12:38 PM CDT - 12/22/2024 5:06 PM CDT Emergency [facility] Emergency Department [address] [place] [address] 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) Discharge Disposition: Discharge to home or self care 12/09/2024 2:54 PM CDT - 12/09/2024 3:15 PM CDT Emergency [address] [address] Guillermo Newton MD Sickle cell pain crisis (HCC) (Primary Dx) Discharge Disposition: Discharge to home or self care 12/07/2024 10:44 PM CDT - 12/09/2024 2:46 PM CDT Hospital Encounter [address] [address] Lala Ace MD Medavaram, Atul, MD Smith, MD Deanne Cooney, Jennifer Padilla MD Sickle cell pain crisis (HCC) (Primary [...] often do you attend chur ch or judaism services? Never 12/08/2024 Do you belong to [...] in a correction (including now)? No 09/01/2023 PHQ-9 Answer Date [...] time in the past 12 m [facility], were you homeless or living in a correction (including now)? No 12/08/2024 Social Connection and Isolation Panel Answer Date Recorded In a typical week, how many times do you talk on the phone with family, friends, or neighbors? More than three times a week 01/03/2025 How often do you get togethe r with friends or relatives? Twice a week 01/03/2025 How often do you attend chur ch or judaism services? Never 01/03/2025 Do you belong to [...] time in the past 12 m [facility], were you homeless or living in a correction (including now)? No 01/03/2025 [facility] Utilities Answer Date Recorded In the past [...] on file Legal Sex Male 10:50 AM NURSING STAFFING COORDINATOR Gender Identity Male 12/06/2024 9:44 PM [...] Mass Index 34.44 02/14/2025 3:08 PM CDT Plan of Treatment Health Maintenance Due Date Last Done Comments Varicella Vaccines (2 of 2 - 2-dose childhood series) 2000 06/27/1999 Meningococcal B Vaccine (1 o f 4 - Increased Risk) 2006 Regular Well Visit/Exam 18-64 2014 Pneumococcal vaccine [...] 02/10/2020, 09/27/2009, 12/30/2007, Additional history exists Hepatitis B Screening Completed 08/29/2023 Hepatitis C Screening Completed 08/29/2023, 016 Procedures [...] CDT Sickle cell disease with crisis (HCC) SCAN - RADIOLOGY/IMAGING 01/21/2025 SCAN - RADIOLOGY/IMAGING 01/19/2025 EGFR Routine 01/18/2025 6:14 AM CDT DIFFERENTIAL [...] CDT CT CHEST PE W CONTRAST ED 12/23/2024 5:57 PM CDT RESPIRATORY PATHOGEN PANEL STAT [...] ECG 12-LEAD STAT 12/07/2024 9:21 PM CDT HEPATITIS C ANTIBODY Routine 08/29/2023 9:51 PM CDT from Last 3 Months or Most Recently Relevant to Health Maintenance Results * eGFR (02/14/2025 2:49 PM CDT) [...] MD LAB BLOOD ORDERABLES Final R esult [facility] Department [place] [address] * (ABNORMAL) Differential, auto (02/14/2025 2:49 PM CDT) Neutrophil abs 7.49(H) 1.50 - 6.50 K/cumm Comment:Testing performed by : [facility], [address] [place], [place] [id number] Lymphocyte abs 3.16 0.80 - 3.30 K/cumm [facility] Comment:Testing performed by : [facility], [address] [place], [place] [phone] Monocyte abs 1.08(H) 0.20 - 0.80 K/cumm [facility] Comment:Testing performed by : [facility], [address] [place], [place] [phone] Eosinophil abs 0.10 0.00 - 0.50 K/cumm [facility] Comment:Testing performed by : [facility], [address] [place], [place] [phone] Basophil abs 0.16(H) 0.00 - 0.10 K/cumm [facility] Comment:Testing performed by : [facility], [address], [place] [address] Neutrophil pct 62.5 % [facility] Comment: Interpretive Data Percent cell count reference ranges are not reported, since discordance with absolute values may lead to misinterpretation of CBC data. Current Interpretive Data was last revised on 2017. Testing performed by: [facility], [address] [place] [phone] Lymphocyte pct 26.4 % [facility] Comment: Interpretive Data Percent cell count reference ranges are not reported, since discordance with absolute values may lead to misinterpretation of CBC data. Current Interpretive Data was last revised on 2017. Testing performed by: [facility], [address] [place] [phone] Monocyte pct 9.0 % [facility] Comment: Interpretive Data Percent cell count reference ranges are not reported, since discordance with absolute values may lead to misinterpretation of CBC data. Current Interpretive Data was last revised on 2017. Testing performed by: [facility], [address] [place] [phone] Eosinophil pct 0.9 % [facility] Comment: Interpretive Data Percent cell count reference ranges are not reported, since discordance with absolute values may lead to misinterpretation of CBC data. Current Interpretive Data was last revised on 2017. Testing performed by: [facility], [address] [place] [phone] Basophil pct 1.3 % [facility] Comment: Interpretive Data Percent cell count reference ranges are not reported, since discordance with absolute values may lead to misinterpretation of CBC data. Current Interpretive Data was last revised on 2017. Testing performed by: [facility], [address] [place] [phone] Blood 02/14/2025 2:49 PM CDT 02/14/2025 3:02 PM CDT us Laurent Gonazlez MD LAB BLOOD ORDERABLES Final R esult [facility] Department of Laboratories [place] [id number] * (ABNORMAL) CBC with auto differential (02/14/2025 2:49 PM CDT) WBC 11.99(H) 3.80 - 9.90 K/cumm Comment:Testing performed by : [facility], [address] [place] [address] Hgb 9.2(L) 13.0 - 17.5 g/dL [facility] Comment:Testing performed by : [facility], [address] [place] [address] Hct 26.5(L) 38.9 - 50.3 % [facility] Comment:Testing performed by : [facility], [address] [place] [address] Plt 341 150 - 400 K/cumm [facility] Comment:Testing performed by : [facility], [address] [place] [address] MPV 8.5 6.8 - 10.4 fL [facility] Comment:Testing performed by : [facility], [address] [place] [address] RBC 2.86(L) 4.30 - 5.80 M/cumm [facility] Comment:Testing performed by : [facility], [address] [place] [address] MCV 92.6 81.3 - 96.4 fL [facility] Comment:Testing performed by : [facility], [address] [place] [address] MCH 32.0 27.1 - 33.3 pg [facility] Comment:Testing performed by : [facility], [address] [place] [address] MCHC 34.5 32.3 - 35.7 g/dL [facility] Comment:Testing performed by : [facility], [address] [place] [address] RDW CV 24.7(H) 11.1 - 14.9 % [facility] Comment:Testing performed by : [facility], [address] [place] [address] NRBC abs 0.10(H) 0.00 - 0.01 K/cumm [facility] Comment:Testing performed by : [facility], [facility] [place] [address] Blood 02/14/2025 2:49 PM CDT 02/14/2025 3:02 PM CDT Laurent Gonzalez MD LAB BLOOD ORDERABLES Final R esult [facility] Department [place] [address] * (ABNORMAL) Comprehensive metabolic panel (02/14/2025 2:49 PM CDT) Sodium 141 135 - 145 mmol/L Potassium, pl 3.3 3.3 - 4.9 mmol/L [facility] Chloride 106 97 - 110 mmol/L [facility] CO2 22 22 - 32 mmol/L [facility] Anion gap 13 2 - 15 mmol/L [facility] BUN 3(L) 6 - 25 mg/dL [facility] Creatinine 0.52(L) 0.80 - 1.30 mg/dL [facility] Glucose 121 70 - 199 mg/dL [facility] Comment: Interpretive Data Fasting glucose [...] 2022. Calcium 9.0 8.5 - 10.3 mg/dL [facility] Bilirubin, total 6.9(H) 0.1 - 1.2 mg/dL [facility] Protein, pl 8.2 6.5 - 8.5 g/dL [facility] Albumin 4.3 3.5 - 5.0 g/dL [facility] Alk phos 310(H) 40 - 130 Units/L [facility] ALT 51 7 - 55 Units/L [facility] AST 86(H) 10 - 50 Units/L [facility] Blood 02/14/2025 2:49 PM CDT 02/14/2025 3:06 PM CDT us Laurent Gonzalez MD LAB BLOOD ORDERABLES Final R esult [facility] Department [place] [address] * SCAN - RADIOLOGY/IMAGING (01/21/2025) Anatomical Region Laterality Modality Other us Provider Scanning Edited Result - Final * SCAN - RADIOLOGY/IMAGING (01/19/2025) Anatomical Region Laterality Modality Other us Provider Scanning Final Result * eGFR (01/18/2025 6:14 AM CDT) eGFR [...] was last reviewed 2021. Testing performed by: [address] [address] Blood 01/18/2025 6:14 AM CDT 01/18/2025 6:34 AM CDT us Rasta Garcia MD LAB BLOOD ORDERABLES Final Res ult [facility] [address] [facility] Department [place] [address] * (ABNORMAL) Differential, auto (01/18/2025 6:14 AM CDT) Neutrophil abs 5.66 1.50 - 6.50 K/cumm Comment:Testing performed by : [address] [address] Imm gran abs 0.06 0.00 - 0.10 K/cumm [facility] Comment:Testing performed by : [address] [address] Lymphocyte abs 4.21(H) 0.80 - 3.30 K/cumm [facility] Comment:Testing performed by : [address] [address] Monocyte abs 1.53(H) 0.20 - 0.80 K/cumm [facility] Comment:Testing performed by : [address] [address] Eosinophil abs 0.32 0.00 - 0.50 K/cumm [facility] Comment:Testing performed by : [address] [address] Basophil abs 0.06 0.00 - 0.10 K/cumm [facility] Comment:Testing performed by : [address] [address] Neutrophil pct 47.8 % [facility] Comment: Interpretive Data Percent cell count reference ranges are not reported, since discordance with absolute values may lead to misinterpretation of CBC data. Current Interpretive Data was last revised on 2017. Testing performed by: [address] [address] Imm gran pct 0.5 % [facility] Comment: Interpretive Data Percent cell count reference ranges are not reported, since discordance with absolute values may lead to misinterpretation of CBC data. Current Interpretive Data was last revised on 2017. Testing performed by: [address] [address] Lymphocyte pct 35.6 % [facility] Comment: Interpretive Data Percent cell count reference ranges are not reported, since discordance with absolute values may lead to misinterpretation of CBC data. Current Interpretive Data was last revised on 2017. Testing performed by: [address] [address] Monocyte pct 12.9 % [facility] Comment: Interpretive Data Percent cell count reference ranges are not reported, since discordance with absolute values may lead to misinterpretation of CBC data. Current Interpretive Data was last revised on 2017. Testing performed by: [address] [address] Eosinophil pct 2.7 % [facility] Comment: Interpretive Data Percent cell count reference ranges are not reported, since discordance with absolute values may lead to misinterpretation of CBC data. Current Interpretive Data was last revised on 2017. Testing performed by: [address] [address] Basophil pct 0.5 % [facility] Comment: Interpretive Data Percent cell count reference ranges are not reported, since discordance with absolute values may lead to misinterpretation of CBC data. Current Interpretive Data was last revised on 2017. Testing performed by: [address] [address] Blood 01/18/2025 6:14 AM CDT 01/18/2025 6:34 AM CDT us Rasta Garcia MD LAB BLOOD ORDERABLES Final Res ult [facility] [address] [facility] [place] [address] * (ABNORMAL) CBC with auto differential (01/18/2025 6:14 AM CDT) [facility] WBC 11.84(H) 3.80 - 9.90 K/cumm Comment:Testing performed by : [address], [address] Hgb 8.3(L) 13.0 - 17.5 g/dL [facility] Comment:Testing performed by : [address], [address] Hct 24.3(L) 38.9 - 50.3 % [facility] Comment:Testing performed by : [address], [address] Plt 302 150 - 400 K/cumm [facility] Comment:Testing performed by : [address], [address] MPV 9.9 9.1 - 12.3 fL [facility] Comment:Testing performed by : [address], [address] RBC 2.79(L) 4.30 - 5.80 M/cumm [facility] Comment:Testing performed by : [address], [address] MCV 87.1 81.3 - 96.4 fL [facility] Comment:Testing performed by : [address], [address] MCH 29.7 27.1 - 33.3 pg [facility] Comment:Testing performed by : [address], [address] MCHC 34.2 32.3 - 35.7 g/dL [facility] Comment:Testing performed by : [address], [address] RDW CV 21.2(H) 11.1 - 14.9 % [facility] Comment:Testing performed by : [address], [address] RDW SD 66.2(H) 35.7 - 48.1 fL [facility] Comment:Testing performed by : [address], [address] NRBC abs 0.05(H) 0.00 - 0.01 K/cumm [facility] Comment:Testing performed by : [address] [address] Morphologic Screen Results confirmed by manual morphology review. [facility] Comment:Testing performed by : [address] [address] Blood 01/18/2025 6:14 AM CDT 01/18/2025 6:34 AM CDT us Rasta Garcia MD LAB BLOOD ORDERABLES Edited Re sult - Final Performing Organization Address [facility] Co de Phone Number [facility] [address] [email or web address] [address] * (ABNORMAL) Reticulocyte Count (01/18/2025 6:14 AM CDT) Pathologist [facility] Retics, absolute 362(H) 20 - 87 K/cumm Comment:Testing performed by : [address] [address] Retics 12.5(H) 0.4 - 2.9 % [facility] Comment:Testing performed by : [address] [address] Reticulocyte Hgb 31.6 30.5 - 38.0 pg [facility] Comment:Testing performed by : [address] [address] Blood 01/18/2025 6:14 AM CDT 01/18/2025 6:34 AM CDT us Rasta Garcia MD LAB BLOOD ORDERABLES Final Res ult Performing Organization Address [facility] de Phone Number [place] [address] [facility] [place] [address] * (ABNORMAL) Basic metabolic panel (01/18/2025 6:14 AM CDT) Pathologist [facility] Sodium 138 135 - 145 mmol/L Comment:Testing performed by : [address] [address] Potassium, pl 3.3 3.3 - 4.9 mmol/L [facility] Comment:Testing performed by : [address] [address] Chloride 101 97 - 110 mmol/L [facility] Comment:Testing performed by : [address] [address] CO2 25 22 - 32 mmol/L [facility] Comment:Testing performed by : [address] [address] Anion gap 12 2 - 15 mmol/L [facility] Comment:Testing performed by : [address] [address] BUN 4(L) 6 - 25 mg/dL [facility] Comment:Testing performed by : [address] [address] Creatinine 0.61(L) 0.80 - 1.30 mg/dL [facility] Comment:Testing performed by : [address] [address] Glucose 105 70 - 199 mg/dL [facility] [...] was last revised 2022. Testing performed by: [address] [address] Calcium 9.1 8.5 - 10.3 mg/dL [facility] Comment:Testing performed by : [address] [address] Blood 01/18/2025 6:14 AM CDT 01/18/2025 6:34 AM CDT us Rasta Garcia MD LAB BLOOD ORDERABLES Final Res ult Performing Organization Address City/State/[facility] de Phone Number [facility] [address] [facility] Department [place] [address] * eGFR (01/17/2025 6:04 AM CDT) Pathologist [facility] eGFR >90 >=60 mL/min/1. 73 m2 [...] was last reviewed 2021. Testing performed by: [address] [address] Blood 01/17/2025 6:04 AM CDT 01/17/2025 6:35 AM CDT us Rasta Garcia MD LAB BLOOD ORDERABLES Final Res ult Performing Organization Address [facility] Co de Phone Number [facility] [address] [facility] Department [place] [address] * (ABNORMAL) Differential, auto (01/17/2025 6:04 AM CDT) Pathologist [facility] Neutrophil abs 4.97 1.50 - 6.50 K/cumm Comment:Testing performed by : [address] [address] Imm gran abs 0.04 0.00 - 0.10 K/cumm [facility] Comment:Testing performed by : [address] [place] [address] Lymphocyte abs 3.73(H) 0.80 - 3.30 K/cumm [facility] Comment:Testing performed by : [address] [address] Monocyte abs 1.04(H) 0.20 - 0.80 K/cumm [facility] Comment:Testing performed by : [address] [address] Eosinophil abs 0.35 0.00 - 0.50 K/cumm [facility] Comment:Testing performed by : [address], [place]., [address] Basophil abs 0.06 0.00 - 0.10 K/cumm [facility] Comment:Testing performed by : [address] [address] Neutrophil pct 48.8 % [facility] Comment: Interpretive Data Percent cell count reference ranges are not reported, since discordance with absolute values may lead to misinterpretation of CBC data. Current Interpretive Data was last revised on 2017. Testing performed by: [address] [address] Imm gran pct 0.4 % [facility] Comment: Interpretive Data Percent cell count reference ranges are not reported, since discordance with absolute values may lead to misinterpretation of CBC data. Current Interpretive Data was last revised on 2017. Testing performed by: [address] [address] Lymphocyte pct 36.6 % [facility] Comment: Interpretive Data Percent cell count reference ranges are not reported, since discordance with absolute values may lead to misinterpretation of CBC data. Current Interpretive Data was last revised on 2017. Testing performed by: [address] [address] Monocyte pct 10.2 % [facility] Comment: Interpretive Data Percent cell count reference ranges are not reported, since discordance with absolute values may lead to misinterpretation of CBC data. Current Interpretive Data was last revised on 2017. Testing performed by: [address] [address] Eosinophil pct 3.4 % [facility] Comment: Interpretive Data Percent cell count reference ranges are not reported, since discordance with absolute values may lead to misinterpretation of CBC data. Current Interpretive Data was last revised on 2017. Testing performed by: [address] [address] Basophil pct 0.6 % [facility] Comment: Interpretive Data Percent cell count reference ranges are not reported, since discordance with absolute values may lead to misinterpretation of CBC data. Current Interpretive Data was last revised on 2017. Testing performed by: [address] [address] Blood 01/17/2025 6:04 AM CDT 01/17/2025 6:35 AM CDT us Rasta Garcia MD LAB BLOOD ORDERABLES Final Res ult [facility] [facility] Department [place] [address] * (ABNORMAL) CBC with auto differential (01/17/2025 6:04 AM CDT) WBC 10.19(H) 3.80 - 9.90 K/cumm Comment:Testing performed by : [address] [address] Hgb 8.3(L) 13.0 - 17.5 g/dL [facility] Comment:Testing performed by : [address] [address] Hct 24.0(L) 38.9 - 50.3 % [facility] Comment:Testing performed by : [address] [address] Plt 329 150 - 400 K/cumm [facility] Comment:Testing performed by : [address] [address] MPV 10.6 9.1 - 12.3 fL [facility] Comment:Testing performed by : [address] [address] RBC 2.77(L) 4.30 - 5.80 M/cumm [facility] Comment:Testing performed by : [address] [address] MCV 86.6 81.3 - 96.4 fL [facility] Comment:Testing performed by : [address] [address] MCH 30.0 27.1 - 33.3 pg [facility] Comment:Testing performed by : [address] [address] MCHC 34.6 32.3 - 35.7 g/dL [facility] Comment:Testing performed by : [address] [address] RDW CV 21.2(H) 11.1 - 14.9 % [facility] Comment:Testing performed by : [address] [address] RDW SD 66.2(H) 35.7 - 48.1 fL [facility] Comment:Testing performed by : [address] [address] NRBC abs 0.06(H) 0.00 - 0.01 K/cumm [facility] Comment:Testing performed by : [address], [address] Morphologic Screen Results confirmed by manual morphology review. [facility] Comment:Testing performed by : [address] [address] Blood 01/17/2025 6:04 AM CDT 01/17/2025 6:35 AM CDT us Rasta Garcia MD LAB BLOOD ORDERABLES Edited Re sult - Final [facility] [address] [facility] Department [place] [address] * (ABNORMAL) Reticulocyte Count (01/17/2025 6:04 AM CDT) Retics, absolute 468(H) 20 - 87 K/cumm Comment:Testing performed by : [address] [address] Retics 15.7(H) 0.4 - 2.9 % [facility] Comment:Testing performed by : [address] [address] Reticulocyte Hgb 30.0(L) 30.5 - 38.0 pg [facility] Comment:Testing performed by : [address] [address] Blood 01/17/2025 6:04 AM CDT 01/17/2025 6:35 AM CDT us Rasta Garcia MD LAB BLOOD ORDERABLES Final Res ult [facility] [address] [facility] Department [place] [address] * (ABNORMAL) Basic metabolic panel (01/17/2025 6:04 AM CDT) Sodium 137 135 - 145 mmol/L Comment:Testing performed by : [address] [address] Potassium, pl 3.1(L) 3.3 - 4.9 mmol/L [facility] Comment:Testing performed by : [address] [address] Chloride 101 97 - 110 mmol/L [facility] Comment:Testing performed by : [address] [address] CO2 24 22 - 32 mmol/L [facility] Comment:Testing performed by : [address] [address] Anion gap 12 2 - 15 mmol/L [facility] Comment:Testing performed by : [address] [address] BUN 3(L) 6 - 25 mg/dL [facility] Comment:Testing performed by : [address] [address] Creatinine 0.50(L) 0.80 - 1.30 mg/dL [facility] Comment:Testing performed by : [address] [address] Glucose 125 70 - 199 mg/dL [facility] Comment: [...] was last revised 2022. Testing performed by: [address] [address] Calcium 8.9 8.5 - 10.3 mg/dL [facility] Comment:Testing performed by : [address] [address] Blood 01/17/2025 6:04 AM CDT 01/17/2025 6:35 AM CDT us Rasta Garcia MD LAB BLOOD ORDERABLES Final Res ult [facility] [address] [facility] Department [place] [address] * Troponin T high-sensitivity 4-hour (01/16/2025 6:37 PM CDT) Trop T hs 13 <=22 ng/L Comment: Interpretive Data For further hscTnT resources including the diagnostic algorithm and an aid in interpretation, copy and paste this link: https://nrl.testcatalog.org/show/hsTrop Current Interpretive Data last revised 2020. Testing performed by: [address] [address] Trop T hs delta 7 ng/L [facility] Comment:Testing performed by : [address] [address] Trop T hs interp Equivocal [facility] Comment:Testing performed by : [address] [address] Blood 01/16/2025 6:37 PM CDT 01/16/2025 6:48 PM CDT Casey Paz MD LAB BLOOD ORDERABLES Final Result Performing Organization Address [facility] de Phone Number [facility] [address] [place] [address] * Troponin T high-sensitivity 2-hour (01/16/2025 5:09 PM CDT) Trop T hs <6 <=22 ng/L Comment: Interpretive Data For further hscTnT resources including the diagnostic algorithm and an aid in interpretation, copy and paste this link: https://nrl.testcatalog.org/show/hsTrop Current Interpretive Data last revised 2020. Testing performed by: [address] [address] Trop T hs delta 0 ng/L [facility] Comment:Testing performed by : [address] [address] Trop T hs interp Insignificant [facility] Comment:Testing performed by : [address] [address] Blood 01/16/2025 5:09 PM CDT 01/16/2025 5:15 PM CDT Casey Paz MD LAB BLOOD ORDERABLES Final Result Performing Organization Address [facility] Co de Phone Number [place] [address] [place] [address] * Post-Transfusion Reaction ABO/Rh (01/16/2025 3:58 PM CDT) Pathologist [facility] ABO/Rh Post-Transfusi on Reaction A Positive Comment:Testing performed by : [address] [address] Blood 01/16/2025 3:58 PM CDT 01/16/2025 3:59 PM CDT Casey Paz MD LAB BLOOD BANK TEST ORDERA BLES Final Result Performing Organization Address City/[facility] Co de Phone Number [facility] [address] [place] [address] * Pre-Transfusion Reaction ABO/Rh (01/16/2025 3:58 PM CDT) ABO/Rh Pre-Transfusio n Reaction A Positive Comment:Testing performed by : [address] [address] Blood 01/16/2025 3:58 PM CDT 01/16/2025 3:59 PM CDT Casey Paz MD LAB BLOOD BANK TEST ORDERA BLES Final Result Performing Organization Address [facility] Co de Phone Number [facility] [address] [place] [address] * Post TRXN SAMY (01/16/2025 3:58 PM CDT) Yesenia, direct, post-transfusi on Negative Comment:Testing performed by : [address] [address] Blood 01/16/2025 3:58 PM CDT 01/16/2025 3:59 PM CDT us Casey Paz MD LAB BLOOD BANK TEST ORDERA BLES Final Result Performing Organization Address [facility] Co de Phone Number KENYETTA[address] [place] [address] * Pre TRXN SAMY (01/16/2025 3:58 PM CDT) Direct yesenia pre-transfusio n reaction Negative Comment:Testing performed by : [address] [address] Blood 01/16/2025 3:58 PM CDT 01/16/2025 3:59 PM CDT Casey Paz MD LAB BLOOD BANK TEST ORDERA BLES Final Result Performing Organization Address City/[facility]/ZIP Co de Phone Number [facility] [address] [facility] [place] [address] * ECG 12 lead (01/16/2025 2:47 PM CDT) Ventricular Rate EKG/Min 79 BPM [facility] Atrial Rate 79 BPM [facility]-Interval (MSEC) 190 ms [facility] QRS-Interval (MSEC) 80 ms [facility] QT-Interval (MSEC) 410 ms [facility] QTc 470 ms [facility] P Hammond 48 degrees [facility] R Hammond 22 degrees [facility] T Hammond -16 degrees [facility] Diagnosis Normal sinus rhythm Nonspecific T wave abnormality Abnormal ECG When compared with ECG of 31-DEC-2024 23:51, Nonspecific T wave abnormality now evident in Anterolateral leads Confirmed by MIRYAM GARCÍA M.D. ([id number]) on 01/16/2025 6:28:08 PM [facility] 01/16/2025 2:47 PM CDT 01/16/2025 6:28 PM CDT Casey Paz MD ECG ORDERABLES Final Resu lt Performing Organization Address City/[facility]/ZIP Co de Phone Number [facility] * Troponin T high-sensitivity series (baseline, 2hr, 4hr, 6hr) (01/16/2025 2:40 PM CDT) Trop T hs <6 <=22 ng/L Comment: Interpretive Data For further hscTnT resources including the diagnostic algorithm and an aid in interpretation, copy and paste this link: https://nrl.testcatalog.org/show/hsTrop Current Interpretive Data last revised 2020. Testing performed by: [facility], [address] [place] [address]., [address] Blood 01/16/2025 2:40 PM CDT 01/16/2025 2:55 PM CDT us Casey Paz MD LAB BLOOD ORDERABLES Final Result [facility] [address] [facility] Department [place] [address] * (ABNORMAL) Differential, auto (01/16/2025 2:40 PM CDT) Neutrophil abs 5.04 1.50 - 6.50 K/cumm Comment:Testing performed by : [address] [address] Imm gran abs 0.05 0.00 - 0.10 K/cumm [facility] Comment:Testing performed by : [address] [address] Lymphocyte abs 2.46 0.80 - 3.30 K/cumm [facility] Comment:Testing performed by : [address] [address] Monocyte abs 0.91(H) 0.20 - 0.80 K/cumm [facility] Comment:Testing performed by : [address] [address] Eosinophil abs 0.41 0.00 - 0.50 K/cumm [facility] Comment:Testing performed by : [address] [address] Basophil abs 0.04 0.00 - 0.10 K/cumm [facility] Comment:Testing performed by : [address] [address] Neutrophil pct 56.6 % [facility] Comment: Interpretive Data Percent cell count reference ranges are not reported, since discordance with absolute values may lead to misinterpretation of CBC data. Current Interpretive Data was last revised on 2017. Testing performed by: [address] [address] Imm gran pct 0.6 % [facility] Comment: Interpretive Data Percent cell count reference ranges are not reported, since discordance with absolute values may lead to misinterpretation of CBC data. Current Interpretive Data was last revised on 2017. Testing performed by: [address] [address] Lymphocyte pct 27.6 % [facility] Comment: Interpretive Data Percent cell count reference ranges are not reported, since discordance with absolute values may lead to misinterpretation of CBC data. Current Interpretive Data was last revised on 2017. Testing performed by: [address] [address] Monocyte pct 10.2 % [facility] Comment: Interpretive Data Percent cell count reference ranges are not reported, since discordance with absolute values may lead to misinterpretation of CBC data. Current Interpretive Data was last revised on 2017. Testing performed by: [address] [address] Eosinophil pct 4.6 % [facility] Comment: Interpretive Data Percent cell count reference ranges are not reported, since discordance with absolute values may lead to misinterpretation of CBC data. Current Interpretive Data was last revised on 2017. Testing performed by: [address] [address] Basophil pct 0.4 % [facility] Comment: Interpretive Data Percent cell count reference ranges are not reported, since discordance with absolute values may lead to misinterpretation of CBC data. Current Interpretive Data was last revised on 2017. Testing performed by: [address] [address] Blood 01/16/2025 2:40 PM CDT 01/16/2025 2:55 PM CDT us Casey Paz MD LAB BLOOD ORDERABLES Final Result [facility] [address] [facility] Department [place] [address] * (ABNORMAL) CBC with auto differential (01/16/2025 2:40 PM CDT) WBC 8.91 3.80 - 9.90 K/cumm Comment:Testing performed by : [address] [address] Hgb 8.3(L) 13.0 - 17.5 g/dL [facility] Comment:Testing performed by : [address] [address] Hct 24.2(L) 38.9 - 50.3 % [facility] Comment:Testing performed by : [address] [address] Plt 316 150 - 400 K/cumm [facility] Comment:Testing performed by : [address] [address] MPV 10.1 9.1 - 12.3 fL [facility] Comment:Testing performed by : [address], [address] RBC 2.80(L) 4.30 - 5.80 M/cumm [facility] Comment:Testing performed by : [address] [address] MCV 86.4 81.3 - 96.4 fL [facility] Comment:Testing performed by : [address] [address] MCH 29.6 27.1 - 33.3 pg CERALEJANDRA Comment:Testing performed by : [address] [address] MCHC 34.3 32.3 - 35.7 g/dL [facility] Comment:Testing performed by : [address] [address] RDW CV 21.2(H) 11.1 - 14.9 % [facility] Comment:Testing performed by : [address], [address] RDW SD 66.2(H) 35.7 - 48.1 fL [facility] Comment:Testing performed by : [address] [address] NRBC abs 0.07(H) 0.00 - 0.01 K/cumm [facility] Comment:Testing performed by : [address], [address] Morphologic Screen Results confirmed by manual morphology review. [facility] Comment:Testing performed by : [address] [place] [address] Blood 01/16/2025 2:40 PM CDT 01/16/2025 2:55 PM CDT us Casey Paz MD LAB BLOOD ORDERABLES Final Result [facility] [address] [facility] [place] [address] * XR Chest 1 View (01/16/2025 2:20 [...] Bradley Rushing M.D. MF: CALDERON Report ID: [id number] Reading Location: [id number] Procedure Note Bradley Rushing, DO - 01/16/2025 [...] Bradley Rushing M.D. MF: CALDERON Report ID: [id number] Reading Location: [place] [address] Casey Paz MD IMG XR PROCEDURES Final Re sult * Transfuse RBC (01/16/2025 2:09 PM CDT) Blood Casey Paz MD BLOOD TRANSFUSION ORDERABL ES Final Result Performing Organization Address [facility] Co de Phone Number [facility] [address] [place] [address] * Prepare RBC: 1 Units (01/16/2025 11:30 AM CDT) Units requested 1 Comment:Testing performed by : [address] [address] Units requested Ready [facility] Comment:Testing performed by : [address] [address] Unit Number [id number] Product code [id number] [facility] Blood Expiration Date [id number] [facility] Product Blood Type (for scanning) 6200 [facility] Product Blood Type APOS [facility] Dispense Status DISPENSED [facility] Blood 01/16/2025 11:3 0 AM CDT 01/16/2025 11:29 AM CDT Casey Paz MD BLOOD BANK PRODUCT ORDERAB LES Final Result Performing Organization Address [facility] Co de Phone Number [facility] [email or web address] [address] * ABO/Rh (01/16/2025 10:42 AM CDT) ABO/Rh A Positive Comment:Testing performed by : [address] [address] Blood 01/16/2025 10:4 2 AM CDT 01/16/2025 10:47 AM CDT Narrative [facility] - 01/16/2025 11:25 AM CDT Has the patient had Daratumumab or Isatuximab in the past 6 months?->Unknown Casey Paz MD LAB BLOOD BANK TEST ORDERA BLES Final Result Performing Organization Address [facility] de Phone Number [address] [address] * Crossmatch (01/16/2025 10:42 AM CDT) Crossmatch Compatible [facility] Unit number for crossmatch [id number] [facility] Crossmatch Compatible [facility] Unit number for crossmatch [id number] [facility] Blood 01/16/2025 10:4 2 AM CDT 01/16/2025 10:47 AM CDT Casey Paz MD LAB BLOOD BANK TEST ORDERA BLES Final Result Performing Organization Address [facility] de Phone Number [address] [address] * Antibody screen (01/16/2025 10:42 AM CDT) Yesenia, indirect, Gel Interpretation Negative [facility]SC Comment:Testing performed by : [facility], [address] [place] [address]., [address] Blood 01/16/2025 10:4 2 AM CDT 01/16/2025 10:47 AM CDT Narrative [facility] - 01/16/2025 11:25 AM CDT Has the patient had Daratumumab or Isatuximab in the past 6 months?->Unknown Casey Paz MD LAB BLOOD BANK TEST ORDERA BLES Final Result Performing Organization Address [facility]/ZIP Co de Phone Number [facility] [place] [address] * eGFR (01/16/2025 2:59 AM CDT) Pathologist [facility] eGFR >90 >=60 mL/min/1. 73 m2 [...] was last reviewed 2021. Testing performed by: [address] [address] Blood 01/16/2025 2:59 AM CDT 01/16/2025 3:12 AM CDT us Rasta Garcia MD LAB BLOOD ORDERABLES Final Res ult Performing Organization Address City/[facility] Co de Phone Number KENYETTA[address] Department [place] [address] * (ABNORMAL) Differential, auto (01/16/2025 2:59 AM CDT) [facility] Neutrophil abs 4.31 1.50 - 6.50 K/cumm Comment:Testing performed by : [address] [address] Imm gran abs 0.03 0.00 - 0.10 K/cumm [facility] Comment:Testing performed by : [address] [address] Lymphocyte abs 3.04 0.80 - 3.30 K/cumm [facility] Comment:Testing performed by : [address], [place]., [address] Monocyte abs 0.81(H) 0.20 - 0.80 K/cumm [facility] Comment:Testing performed by : [address], [place]., [address] Eosinophil abs 0.38 0.00 - 0.50 K/cumm [facility] Comment:Testing performed by : [address], [place]., [address] Basophil abs 0.04 0.00 - 0.10 K/cumm [facility] Comment:Testing performed by : [address] [address] Neutrophil pct 50.1 % [facility] Comment: Interpretive Data Percent cell count reference ranges are not reported, since discordance with absolute values may lead to misinterpretation of CBC data. Current Interpretive Data was last revised on 2017. Testing performed by: [address] [address] Imm gran pct 0.3 % [facility] Comment: Interpretive Data Percent cell count reference ranges are not reported, since discordance with absolute values may lead to misinterpretation of CBC data. Current Interpretive Data was last revised on 2017. Testing performed by: [address] [address] Lymphocyte pct 35.3 % [facility] Comment: Interpretive Data Percent cell count reference ranges are not reported, since discordance with absolute values may lead to misinterpretation of CBC data. Current Interpretive Data was last revised on 2017. Testing performed by: [address] [address] Monocyte pct 9.4 % [facility] Comment: Interpretive Data Percent cell count reference ranges are not reported, since discordance with absolute values may lead to misinterpretation of CBC data. Current Interpretive Data was last revised on 2017. Testing performed by: [address] [address] Eosinophil pct 4.4 % [facility] Comment: Interpretive Data Percent cell count reference ranges are not reported, since discordance with absolute values may lead to misinterpretation of CBC data. Current Interpretive Data was last revised on 2017. Testing performed by: [address] [address] Basophil pct 0.5 % [facility] SHETTY Comment: Interpretive Data Percent cell count reference ranges are not reported, since discordance with absolute values may lead to misinterpretation of CBC data. Current Interpretive Data was last revised on 2017. Testing performed by: [address] [address] Blood 01/16/2025 2:59 AM CDT 01/16/2025 3:13 AM CDT us Rasta Garcia MD LAB BLOOD ORDERABLES Final Res ult [facility] Department [place] [address] * (ABNORMAL) CBC with auto differential (01/16/2025 2:59 AM CDT) WBC 8.61 3.80 - 9.90 K/cumm Comment:Testing performed by : [address] [address] Hgb 7.0(L) 13.0 - 17.5 g/dL [facility] SHETTY Comment:Testing performed by : [address] [address] Hct 19.8(L) 38.9 - 50.3 % [facility]TT[facility] Comment:Testing performed by : [address] [address] Plt 276 150 - 400 K/cumm [facility] SHETTY Comment:Testing performed by : [address] [address] MPV 10.1 9.1 - 12.3 fL [facility] SHETT[facility] Comment:Testing performed by : [address] [address] RBC 2.31(L) 4.30 - 5.80 M/cumm [facility] SHETTY Comment:Testing performed by : [address] [address] MCV 85.7 81.3 - 96.4 fL [facility] SHETT[facility] Comment:Testing performed by : [address] [address] MCH 30.3 27.1 - 33.3 pg [facility] SHETTY Comment:Testing performed by : [address] [address] MCHC 35.4 32.3 - 35.7 g/dL [facility] SHETTY Comment:Testing performed by : [address] [address] RDW CV 21.6(H) 11.1 - 14.9 % [facility] Comment:Testing performed by : [address] [address] RDW SD 65.4(H) 35.7 - 48.1 fL [facility] Comment:Testing performed by : [address] [address] NRBC abs 0.07(H) 0.00 - 0.01 K/cumm [facility] SHETTY Comment:Testing performed by : [address] [address] Morphologic Screen Results confirmed by manual morphology review. [facility] Comment:Testing performed by : [address] [address] Blood 01/16/2025 2:59 AM CDT 01/16/2025 3:13 AM CDT us Rasta Garcia MD LAB BLOOD ORDERABLES Final Res ult [place] [address] [facility] Department [place] [address] * (ABNORMAL) Reticulocyte Count (01/16/2025 2:59 AM CDT) Retics, absolute 431(H) 20 - 87 K/cumm Comment:Testing performed by : [address] [address] Retics 18.7(H) 0.4 - 2.9 % [facility] Comment:Testing performed by : [address] [address] Reticulocyte Hgb 28.0(L) 30.5 - 38.0 pg [facility] Comment:Testing performed by : [address] [address] Blood 01/16/2025 2:59 AM CDT 01/16/2025 3:13 AM CDT us Rasta Garcia MD LAB BLOOD ORDERABLES Final Res ult [place] [address] [facility] Department [place] [address] * (ABNORMAL) Basic metabolic panel (01/16/2025 2:59 AM CDT) Sodium 138 135 - 145 mmol/L Comment:Testing performed by : [address] [address] Potassium, pl 3.2(L) 3.3 - 4.9 mmol/L [facility] Comment:Testing performed by : [address] [address] Chloride 103 97 - 110 mmol/L [facility] Comment:Testing performed by : [address] [address] CO2 25 22 - 32 mmol/L [facility] Comment:Testing performed by : [address] [address] Anion gap 10 2 - 15 mmol/L [facility] Comment:Testing performed by : [address] [address] BUN 3(L) 6 - 25 mg/dL [facility] Comment:Testing performed by : [address] [address] Creatinine 0.49(L) 0.80 - 1.30 mg/dL [facility] Comment:Testing performed by : [address] [address] Glucose 154 70 - 199 mg/dL [facility] SHETTY Comment: [...] was last revised 2022. Testing performed by: [address] [address] Calcium 8.7 8.5 - 10.3 mg/dL [facility] Comment:Testing performed by : [address] [address] Blood 01/16/2025 2:59 AM CDT 01/16/2025 3:12 AM CDT Rasta Garcia MD LAB BLOOD ORDERABLES Final Res ult [place] [address] [facility] Department [place] [address] * (ABNORMAL) Blood smear review (01/15/2025 5:38 AM CDT) RBC morphology Present(A) Comment:Testing performed by : [address] [address] Hypochromasia 3-7/HPF(A) [facility] Comment:Testing performed by : [address] [address] Anisocytosis Moderate(A) [facility] Comment:Testing performed by : [address] [address] Schistocytes 1-2/HPF(A) [facility] Comment:Testing performed by : [address] [address] Sickle cells 1-2/HPF(A) [facility] Comment:Testing performed by : [address] [address] Elliptocytes 8-15/HPF(A) [facility] Comment:Testing performed by : [address] [address] Target cells 3-7/HPF(A) [facility] Comment:Testing performed by : [address] [address] Acanthocytes 3-7/HPF(A) [facility] Comment:Testing performed by : [address] [address] Platelet estimate Adequate [facility] Comment:Testing performed by : [address] [address] Blood 01/15/2025 5:38 AM CDT 01/15/2025 6:12 AM CDT us Rasta Garcia MD LAB BLOOD ORDERABLES Final Res ult [place] [facility] Department [place] [address] * eGFR (01/15/2025 5:38 AM CDT) eGFR [...] was last reviewed 2021. Testing performed by: [address] [address] Blood 01/15/2025 5:38 AM CDT 01/15/2025 6:12 AM CDT us Rasta Garcia MD LAB BLOOD ORDERABLES Final Res ult [facility] [address] [facility] [place] [address] * (ABNORMAL) Differential, auto (01/15/2025 5:38 AM CDT) Neutrophil abs 3.92 1.50 - 6.50 K/cumm Comment:Testing performed by : [address] [address] Imm gran abs 0.07 0.00 - 0.10 K/cumm [facility] Comment:Testing performed by : [address] [address] Lymphocyte abs 3.68(H) 0.80 - 3.30 K/cumm [facility] Comment:Testing performed by : [address] [address] Monocyte abs 0.80 0.20 - 0.80 K/cumm [facility] Comment:Testing performed by : [address] [address] Eosinophil abs 0.40 0.00 - 0.50 K/cumm [facility] Comment:Testing performed by : [address] [address] Basophil abs 0.04 0.00 - 0.10 K/cumm [facility] Comment:Testing performed by : [address] [address] Neutrophil pct 44.0 % [facility] Comment: Interpretive Data Percent cell count reference ranges are not reported, since discordance with absolute values may lead to misinterpretation of CBC data. Current Interpretive Data was last revised on 2017. Testing performed by: [address] [address] Imm gran pct 0.8 % [facility] Comment: Interpretive Data Percent cell count reference ranges are not reported, since discordance with absolute values may lead to misinterpretation of CBC data. Current Interpretive Data was last revised on 2017. Testing performed by: [address] [address] Lymphocyte pct 41.3 % [facility] Comment: Interpretive Data Percent cell count reference ranges are not reported, since discordance with absolute values may lead to misinterpretation of CBC data. Current Interpretive Data was last revised on 2017. Testing performed by: [address] [address] Monocyte pct 9.0 % [facility] Comment: Interpretive Data Percent cell count reference ranges are not reported, since discordance with absolute values may lead to misinterpretation of CBC data. Current Interpretive Data was last revised on 2017. Testing performed by: [address] [address] Eosinophil pct 4.5 % [facility] Comment: Interpretive Data Percent cell count reference ranges are not reported, since discordance with absolute values may lead to misinterpretation of CBC data. Current Interpretive Data was last revised on 2017. Testing performed by: [address] [address] Basophil pct 0.4 % [facility] Comment: Interpretive Data Percent cell count reference ranges are not reported, since discordance with absolute values may lead to misinterpretation of CBC data. Current Interpretive Data was last revised on 2017. Testing performed by: [address] [address] Blood 01/15/2025 5:38 AM CDT 01/15/2025 6:12 AM CDT us Rasta Garcia MD LAB BLOOD ORDERABLES Final Res ult [place] HSETTY [address] [facility] Department [place] [address] * (ABNORMAL) CBC with auto differential (01/15/2025 5:38 AM CDT) WBC 8.91 3.80 - 9.90 K/cumm Comment:Testing performed by : [address], [address] Hgb 7.3(L) 13.0 - 17.5 g/dL [facility] Comment:Testing performed by : [address] [address] Hct 21.4(L) 38.9 - 50.3 % [facility] Comment:Testing performed by : [address] [address] Plt 316 150 - 400 K/cumm [facility] Comment:Testing performed by : [address], [address] MPV 10.1 9.1 - 12.3 fL [facility] Comment:Testing performed by : [address] [address] RBC 2.46(L) 4.30 - 5.80 M/cumm [facility] Comment:Testing performed by : [address] [address] MCV 87.0 81.3 - 96.4 fL [facility] Comment:Testing performed by : [address], [address] MCH 29.7 27.1 - 33.3 pg [facility] Comment:Testing performed by : [address], [address] MCHC 34.1 32.3 - 35.7 g/dL [facility] Comment:Testing performed by : [address], [address] RDW CV 21.6(H) 11.1 - 14.9 % [facility] Comment:Testing performed by : [address], [address] RDW SD 67.9(H) 35.7 - 48.1 fL [facility] Comment:Testing performed by : [address] [address] NRBC abs 0.13(H) 0.00 - 0.01 K/cumm [facility] Comment:Testing performed by : [address] [place] [address] Blood 01/15/2025 5:38 AM CDT 01/15/2025 6:12 AM CDT Rasta Garcia MD LAB BLOOD ORDERABLES Edited Re sult - Final Performing Organization Address [facility] de Phone Number KENYETTA[address] [address] * (ABNORMAL) Reticulocyte Count (01/15/2025 5:38 AM CDT) Pathologist [facility] Retics, absolute 497(H) 20 - 87 K/cumm Comment:Testing performed by : [address] [address] Retics 20.2(H) 0.4 - 2.9 % [facility] Comment:Testing performed by : [address] [address] Reticulocyte Hgb 28.3(L) 30.5 - 38.0 pg [facility] Comment:Testing performed by : [address] [address] Blood 01/15/2025 5:38 AM CDT 01/15/2025 6:12 AM CDT us Rasta Garcia MD LAB BLOOD ORDERABLES Final Res ult Performing Organization Address [facility] de Phone Number [address] [address] * (ABNORMAL) Basic metabolic panel (01/15/2025 5:38 AM CDT) Pathologist [facility] Sodium 136 135 - 145 mmol/L Comment:Testing performed by : [address] [address] Potassium, pl 3.2(L) 3.3 - 4.9 mmol/L [facility] SHETTY Comment:Testing performed by : [address] [address] Chloride 102 97 - 110 mmol/L [facility] Comment:Testing performed by : [address] [address] CO2 24 22 - 32 mmol/L [facility] Comment:Testing performed by : [address] [address] Anion gap 10 2 - 15 mmol/L [facility] Comment:Testing performed by : [address] [address] BUN 3(L) 6 - 25 mg/dL [facility] Comment:Testing performed by : [address] [address] Creatinine 0.44(L) 0.80 - 1.30 mg/dL [facility] Comment:Testing performed by : [address] [address] Glucose 116 70 - 199 mg/dL [facility] [...] was last revised 2022. Testing performed by: [address] [address] Calcium 9.0 8.5 - 10.3 mg/dL [facility] Comment:Testing performed by : [address] [address] Blood 01/15/2025 5:38 AM CDT 01/15/2025 6:12 AM CDT us Rasta Garcia MD LAB BLOOD ORDERABLES Final Res ult [place] [address] [facility] Department [place] [address] * eGFR (01/14/2025 6:18 AM CDT) Pathologist [facility] eGFR >90 >=60 mL/min/1. 73 m2 [...] was last reviewed 2021. Testing performed by: [address] [address] Blood 01/14/2025 6:18 AM CDT 01/14/2025 6:28 AM CDT us Rasta Garcia MD LAB BLOOD ORDERABLES Final Res ult [place] [address] [facility] [place] [address] * Differential, auto (01/14/2025 6:18 AM CDT) Pathologist [facility] Neutrophil abs 4.75 1.50 - 6.50 K/cumm Comment:Testing performed by : [address] [address] Imm gran abs 0.04 0.00 - 0.10 K/cumm [facility] SHETTY Comment:Testing performed by : [address] [address] Lymphocyte abs 3.30 0.80 - 3.30 K/cumm [facility] Comment:Testing performed by : [address] [address] Monocyte abs 0.76 0.20 - 0.80 K/cumm [facility] Comment:Testing performed by : [address] [address] Eosinophil abs 0.14 0.00 - 0.50 K/cumm [facility] Comment:Testing performed by : [address] [address] Basophil abs 0.04 0.00 - 0.10 K/cumm [facility] Comment:Testing performed by : [address] [address] Neutrophil pct 52.7 % [facility] Comment: Interpretive Data Percent cell count reference ranges are not reported, since discordance with absolute values may lead to misinterpretation of CBC data. Current Interpretive Data was last revised on 2017. Testing performed by: [address] [address] Imm gran pct 0.4 % [facility] Comment: Interpretive Data Percent cell count reference ranges are not reported, since discordance with absolute values may lead to misinterpretation of CBC data. Current Interpretive Data was last revised on 2017. Testing performed by: [address] [address] Lymphocyte pct 36.5 % [facility] Comment: Interpretive Data Percent cell count reference ranges are not reported, since discordance with absolute values may lead to misinterpretation of CBC data. Current Interpretive Data was last revised on 2017. Testing performed by: [address] [address] Monocyte pct 8.4 % [facility] Comment: Interpretive Data Percent cell count reference ranges are not reported, since discordance with absolute values may lead to misinterpretation of CBC data. Current Interpretive Data was last revised on 2017. Testing performed by: [address] [address] Eosinophil pct 1.6 % [facility] Comment: Interpretive Data Percent cell count reference ranges are not reported, since discordance with absolute values may lead to misinterpretation of CBC data. Current Interpretive Data was last revised on 2017. Testing performed by: [address] [address] Basophil pct 0.4 % [facility] Comment: Interpretive Data Percent cell count reference ranges are not reported, since discordance with absolute values may lead to misinterpretation of CBC data. Current Interpretive Data was last revised on 2017. Testing performed by: [address] [address] Blood 01/14/2025 6:18 AM CDT 01/14/2025 6:28 AM CDT us Rasta Garcia MD LAB BLOOD ORDERABLES Final Res ult [place] [address] [facility] [place] [address] * (ABNORMAL) CBC with auto differential (01/14/2025 6:18 AM CDT) WBC 9.03 3.80 - 9.90 K/cumm Comment:Testing performed by : [address] [address] Hgb 7.5(L) 13.0 - 17.5 g/dL [facility] SHETTY Comment:Testing performed by : [address] [address] Hct 21.8(L) 38.9 - 50.3 % [facility] SHETT[facility] Comment:Testing performed by : [address] [address] Plt 287 150 - 400 K/cumm [facility] Comment:Testing performed by : [address] [address] MPV 10.1 9.1 - 12.3 fL [place] SHETTY Comment:Testing performed by : [address] [address] RBC 2.47(L) 4.30 - 5.80 M/cumm [facility] SHETTY Comment:Testing performed by : [address] [address] MCV 88.3 81.3 - 96.4 fL [place] SHETTY Comment:Testing performed by : [address] [address] MCH 30.4 27.1 - 33.3 pg [place] SHETT[facility] Comment:Testing performed by : [address] [address] MCHC 34.4 32.3 - 35.7 g/dL [facility] SHETT[facility] Comment:Testing performed by : [address] [address] RDW CV 22.0(H) 11.1 - 14.9 % [facility] Comment:Testing performed by : [address] [address] RDW SD 69.9(H) 35.7 - 48.1 fL [place] Comment:Testing performed by : [address] [address] NRBC abs 0.18(H) 0.00 - 0.01 K/cumm [facility] Comment:Testing performed by : [address], [address] Morphologic Screen Results confirmed by manual morphology review. [facility] Comment:Testing performed by : [address] [address] Blood 01/14/2025 6:18 AM CDT 01/14/2025 6:28 AM CDT us Rasta Garcia MD LAB BLOOD ORDERABLES Edited Re sult - Final [place] [address] [facility] Department of Laboratories [place], [place] [id number] * (ABNORMAL) Reticulocyte Count (01/14/2025 6:18 AM CDT) Retics, absolute 537(H) 20 - 87 K/cumm Comment:Testing performed by : [address] [address] Retics 21.5(H) 0.4 - 2.9 % [facility] Comment:Testing performed by : [address] [address] Reticulocyte Hgb 28.4(L) 30.5 - 38.0 pg [place] Comment:Testing performed by : [address] [address] Blood 01/14/2025 6:18 AM CDT 01/14/2025 6:28 AM CDT us Rasta Garcia MD LAB BLOOD ORDERABLES Final Res ult [place] [address] [facility] [place] [address] * (ABNORMAL) Basic metabolic panel (01/14/2025 6:18 AM CDT) Sodium 137 135 - 145 mmol/L Comment:Testing performed by : [address] [address] Potassium, pl 3.5 3.3 - 4.9 mmol/L [facility] Comment:Testing performed by : [address] [address] Chloride 103 97 - 110 mmol/L [place] Comment:Testing performed by : [address] [address] CO2 24 22 - 32 mmol/L [place] Comment:Testing performed by : [address] [address] Anion gap 10 2 - 15 mmol/L [place] Comment:Testing performed by : [address] [address] BUN 2(L) 6 - 25 mg/dL [place] Comment:Testing performed by : [address] [address] Creatinine 0.45(L) 0.80 - 1.30 mg/dL [place] Comment:Testing performed by : [address] [address] Glucose 141 70 - 199 mg/dL [facility] [...] was last revised 2022. Testing performed by: [facility], [address] [place] [address]., [address] Calcium 8.8 8.5 - 10.3 mg/dL [facility] SHETTY Comment:Testing performed by : [facility], [address] [place] [address]., [address] Blood 01/14/2025 6:18 AM CDT 01/14/2025 6:28 AM CDT us Rasta Garcia MD LAB BLOOD ORDERABLES Final Res ult [place] SHETT[facility] [address] [facility] [place] [address] * XR Chest PA Lateral 2 Views [...] Gee Laboy D.O. AP: AP Report ID: [id number] Reading Location: [id number] Procedure Note Benoit Geecaty Duarte, DO - 01/11/2025 EXAM DESCRIPTION: XR CHEST [...] Gee Laboy D.O. AP: AP Report ID: [id number] Reading Location: [place] [address] Casey Paz MD IM XR PROCEDURES Final Re sult * eGFR [...] was last reviewed 2021. Testing performed by: [address] [address] Blood 01/11/2025 1:12 PM CDT 01/11/2025 1:15 PM CDT us Rasta Garcia MD LAB BLOOD ORDERABLES Final Res ult [place] [facility] Department of Laboratories [place], [place] [id number] * (ABNORMAL) CBC with auto differential (01/11/2025 1:12 PM CDT) WBC 10.21(H) 3.80 - 9.90 K/cumm Comment:Testing performed by : [address] [address] Hgb 8.3(L) 13.0 - 17.5 g/dL [facility] SHETT[facility] Comment:Testing performed by : [address] [address] Hct 24.3(L) 38.9 - 50.3 % [facility] [facility] Comment:Testing performed by : [address] [address] Plt 379 150 - 400 K/cumm [facility] [facility] Comment:Testing performed by : [address] [address] MPV 9.9 9.1 - 12.3 fL [place] [facility] Comment:Testing performed by : [address] [address] RBC 2.82(L) 4.30 - 5.80 M/cumm [facility] Comment:Testing performed by : [address] [place] [address] MCV 86.2 81.3 - 96.4 fL [place] [facility] Comment:Testing performed by : [address] [address] MCH 29.4 27.1 - 33.3 pg [place] [facility] Comment:Testing performed by : [address] [address] MCHC 34.2 32.3 - 35.7 g/dL [facility] [facility] Comment:Testing performed by : [address] [address] RDW CV 23.4(H) 11.1 - 14.9 % [facility] [facility] Comment:Testing performed by : [address] [address] RDW SD 70.7(H) 35.7 - 48.1 fL [place] [facility] Comment:Testing performed by : [address] [address] NRBC abs 0.23(H) 0.00 - 0.01 K/cumm [facility] [facility] Comment:Testing performed by : [address] [address] Blood 01/11/2025 1:12 PM CDT 01/11/2025 1:15 PM CDT us Rasta Garcia MD LAB BLOOD ORDERABLES Edited Re sult - Final [place] [address] [facility] [place] [address] * (ABNORMAL) Manual Differential (01/11/2025 1:12 PM CDT) Differential Manual Comment:Testing performed by : [address] [address] Cells Counted 100 [place] SHE[facility] Comment:Testing performed by : [address] [address] Neutrophil abs 4.90 1.50 - 6.50 K/cumm [facility] [facility] Comment:Testing performed by : [address] [address] Lymphocyte abs 4.39(H) 0.80 - 3.30 K/cumm [place] Comment:Testing performed by : [address] [address] Monocyte abs 0.51 0.20 - 0.80 K/cumm [place] Comment:Testing performed by : [address], [place]., [address] Eosinophil abs 0.41 0.00 - 0.50 K/cumm [place] Comment:Testing performed by : [address] [address] Neutrophil pct 48.0 % [facility] Comment: Interpretive Data Percent cell count reference ranges are not reported, since discordance with absolute values may lead to misinterpretation of CBC data. Current Interpretive Data was last revised on 2017. Testing performed by: [address] [address] Lymphocyte pct 43.0 % [facility] Comment: Interpretive Data Percent cell count reference ranges are not reported, since discordance with absolute values may lead to misinterpretation of CBC data. Current Interpretive Data was last revised on 2017. Testing performed by: [address] [address] Monocyte pct 5.0 % [facility] Comment: Interpretive Data Percent cell count reference ranges are not reported, since discordance with absolute values may lead to misinterpretation of CBC data. Current Interpretive Data was last revised on 2017. Testing performed by: [address] [address] Eosinophil pct 4.0 % [facility] Comment: Interpretive Data Percent cell count reference ranges are not reported, since discordance with absolute values may lead to misinterpretation of CBC data. Current Interpretive Data was last revised on 2017. Testing performed by: [address] [address] RBC morphology Present(A) [facility] Comment:Testing performed by : [address] [address] Polychromasia 3-7/HPF(A) [facility] Comment:Testing performed by : [address], [place]., [address] Anisocytosis Marked(A) [facility] Comment:Testing performed by : [address], [place]., [address] Sickle cells 1-2/HPF(A) [facility] Comment:Testing performed by : [address], [place]., [address] Elliptocytes 8-15/HPF(A) [place] Comment:Testing performed by : [address], [place]., [address] Teardrop cells 3-7/HPF(A) [facility] Comment:Testing performed by : [address], [place]., [address] Platelet morphology Normal [facility] Comment:Testing performed by : [address], [place]., [address] Platelet estimate Adequate [facility] Comment:Testing performed by : [address] [address] Blood 01/11/2025 1:12 PM CDT 01/11/2025 1:15 PM CDT us Rasta Garcia MD LAB BLOOD ORDERABLES Final Res ult [facility] [address] [facility] [place] [address] * (ABNORMAL) Reticulocyte Count (01/11/2025 1:12 PM CDT) Retics, absolute 585(H) 20 - 87 K/cumm Comment:Testing performed by : [address], [place]., [address] Retics 20.8(H) 0.4 - 2.9 % [facility] Comment:Testing performed by : [address], [place]., [address] Reticulocyte Hgb 30.1(L) 30.5 - 38.0 pg [facility] Comment:Testing performed by : [address], [place]., [address] Blood 01/11/2025 1:12 PM CDT 01/11/2025 1:15 PM CDT us Rasta Garcia MD LAB BLOOD ORDERABLES Final Res ult [facility] [address] [facility] [place] [address] * (ABNORMAL) Basic metabolic panel (01/11/2025 1:12 PM CDT) Sodium 138 135 - 145 mmol/L Comment:Testing performed by : [address] [address] Potassium, pl 3.7 3.3 - 4.9 mmol/L [facility] Comment:Testing performed by : [address] [address] Chloride 103 97 - 110 mmol/L [place] Comment:Testing performed by : [address] [address] CO2 24 22 - 32 mmol/L [facility] Comment:Testing performed by : [address] [address] Anion gap 11 2 - 15 mmol/L [facility] Comment:Testing performed by : [address] [address] BUN 2(L) 6 - 25 mg/dL [facility] Comment:Testing performed by : [address] [address] Creatinine 0.50(L) 0.80 - 1.30 mg/dL [facility] Comment:Testing performed by : [address] [address] Glucose 110 70 - 199 mg/dL [facility] Comment: Interpretive [...] was last revised 2022. Testing performed by: [facility], [address] [place] [address]., [address] Calcium 8.7 8.5 - 10.3 mg/dL [facility] SHETTY Comment:Testing performed by : [facility], [address] [place] [address]., [address] Blood 01/11/2025 1:12 PM CDT 01/11/2025 1:15 PM CDT us Rasta Garcia MD LAB BLOOD ORDERABLES Final Res ult [facility] SHETTY [address] [facility] [place] [address] * XR Chest 1 View (01/10/2025 1:39 [...] Anne Merchant M.D. FT: FT Report ID: [id number] Reading Location: [id number] Procedure Note Anne Hernandes MD - 08/18/2025 EXAM DESCRIPTION: XR CHEST 1 VIEW REASON [...] Anne Merchant M.D. FT: FT Report ID: [id number] Reading Location: [place] [address] Jaya Garcia DO IMG XR PROCEDURES Final [...] was last reviewed 2021. Testing performed by: [facility], [address] [place] [address], [place]., [address] Blood 01/10/2025 10:2 9 AM CDT 01/10/2025 10:53 AM CDT us Rasta Garcia MD LAB BLOOD ORDERABLES Final Res ult [facility] [address] [facility] [place] [address] * (ABNORMAL) Differential, auto (01/10/2025 10:29 AM CDT) Neutrophil abs 4.63 1.50 - 6.50 K/cumm Comment:Testing performed by : [address] [address] Imm gran abs 0.08 0.00 - 0.10 K/cumm [facility] Comment:Testing performed by : [address] [address] Lymphocyte abs 4.22(H) 0.80 - 3.30 K/cumm [facility] Comment:Testing performed by : [address] [address] Monocyte abs 0.96(H) 0.20 - 0.80 K/cumm [facility] Comment:Testing performed by : [address] [address] Eosinophil abs 0.20 0.00 - 0.50 K/cumm [facility] Comment:Testing performed by : [address] [address] Basophil abs 0.06 0.00 - 0.10 K/cumm [facility] Comment:Testing performed by : [address] [address] Neutrophil pct 45.5 % [facility] Comment: Interpretive Data Percent cell count reference ranges are not reported, since discordance with absolute values may lead to misinterpretation of CBC data. Current Interpretive Data was last revised on 2017. Testing performed by: [address] [address] Imm gran pct 0.8 % [facility] Comment: Interpretive Data Percent cell count reference ranges are not reported, since discordance with absolute values may lead to misinterpretation of CBC data. Current Interpretive Data was last revised on 2017. Testing performed by: [address] [address] Lymphocyte pct 41.6 % [facility] Comment: Interpretive Data Percent cell count reference ranges are not reported, since discordance with absolute values may lead to misinterpretation of CBC data. Current Interpretive Data was last revised on 2017. Testing performed by: [address] [address] Monocyte pct 9.5 % [facility] Comment: Interpretive Data Percent cell count reference ranges are not reported, since discordance with absolute values may lead to misinterpretation of CBC data. Current Interpretive Data was last revised on 2017. Testing performed by: [address] [address] Eosinophil pct 2.0 % [facility] Comment: Interpretive Data Percent cell count reference ranges are not reported, since discordance with absolute values may lead to misinterpretation of CBC data. Current Interpretive Data was last revised on 2017. Testing performed by: [address] [address] Basophil pct 0.6 % [facility] Comment: Interpretive Data Percent cell count reference ranges are not reported, since discordance with absolute values may lead to misinterpretation of CBC data. Current Interpretive Data was last revised on 2017. Testing performed by: [address] [address] Blood 01/10/2025 10:2 9 AM CDT 01/10/2025 10:52 AM CDT us Rasta Garcia MD LAB BLOOD ORDERABLES Final Res ult [facility] [address] [facility] Department [place] [address] * (ABNORMAL) CBC with auto differential (01/10/2025 10:29 AM CDT) WBC 10.15(H) 3.80 - 9.90 K/cumm Comment:Testing performed by : [address] [address] Hgb 7.5(L) 13.0 - 17.5 g/dL [facility] Comment:Testing performed by : [address], [address] Hct 22.0(L) 38.9 - 50.3 % [facility] Comment:Testing performed by : [address] [address] Plt 324 150 - 400 K/cumm [facility] Comment:Testing performed by : [address], [address] MPV 10.3 9.1 - 12.3 fL [facility] Comment:Testing performed by : [address], [address] RBC 2.51(L) 4.30 - 5.80 M/cumm [facility] Comment:Testing performed by : [address], [address] MCV 87.6 81.3 - 96.4 fL [facility] Comment:Testing performed by : [address], [address] MCH 29.9 27.1 - 33.3 pg [facility] Comment:Testing performed by : [address], [address] MCHC 34.1 32.3 - 35.7 g/dL [facility] Comment:Testing performed by : [address], [address] RDW CV 22.9(H) 11.1 - 14.9 % [facility] Comment:Testing performed by : [address], [address] RDW SD 69.4(H) 35.7 - 48.1 fL [facility] Comment:Testing performed by : [address], [address] NRBC abs 0.15(H) 0.00 - 0.01 K/cumm [facility] Comment:Testing performed by : [address], [address] Morphologic Screen Results confirmed by manual morphology review. [facility] Comment:Testing performed by : [address] [address] Blood 01/10/2025 10:2 9 AM CDT 01/10/2025 10:52 AM CDT us Rasta Garcia MD LAB BLOOD ORDERABLES Edited Re sult - Final Performing Organization Address [facility]/ZIP Co de Phone Number [facility] [address] [address] * (ABNORMAL) Reticulocyte Count (01/10/2025 10:29 AM CDT) Retics, absolute 624(H) 20 - 87 K/cumm Comment:Testing performed by : [address] [address] Retics 21.5(H) 0.4 - 2.9 % [facility] Comment:Testing performed by : [address] [address] Reticulocyte Hgb 28.1(L) 30.5 - 38.0 pg [facility] Comment:Testing performed by : [address] [address] Blood 01/10/2025 10:2 9 AM CDT 01/10/2025 10:52 AM CDT us Rasta Garcia MD LAB BLOOD ORDERABLES Final Res ult Performing Organization Address [facility] Co de Phone Number [address] [address] * (ABNORMAL) Basic metabolic panel (01/10/2025 10:29 AM CDT) Pathologist [facility] Sodium 138 135 - 145 mmol/L Comment:Testing performed by : [address] [address] Potassium, pl 3.5 3.3 - 4.9 mmol/L [facility] Comment:Testing performed by : [address] [address] Chloride 104 97 - 110 mmol/L [facility] Comment:Testing performed by : [address] [address] CO2 24 22 - 32 mmol/L [facility] Comment:Testing performed by : [address] [address] Anion gap 10 2 - 15 mmol/L [facility] Comment:Testing performed by : [address] [address] BUN 2(L) 6 - 25 mg/dL [facility] Comment:Testing performed by : [address] [address] Creatinine 0.50(L) 0.80 - 1.30 mg/dL [facility] Comment:Testing performed by : [address] [address] Glucose 98 70 - 199 mg/dL [facility] [...] was last revised 2022. Testing performed by: [address] [address] Calcium 8.4(L) 8.5 - 10.3 mg/dL [facility] Comment:Testing performed by : [address] [address] Blood 01/10/2025 10:2 9 AM CDT 01/10/2025 10:53 AM CDT us Rasta Garcia MD LAB BLOOD ORDERABLES Final Res ult [facility] SHETTY [address] [facility] Department [place] [address] * (ABNORMAL) Differential, auto (01/09/2025 4:55 AM CDT) Neutrophil abs 4.56 1.50 - 6.50 K/cumm Comment:Testing performed by : [address] [address] Imm gran abs 0.05 0.00 - 0.10 K/cumm [facility] Comment:Testing performed by : [address] [address] Lymphocyte abs 3.68(H) 0.80 - 3.30 K/cumm [facility] Comment:Testing performed by : [address] [address] Monocyte abs 1.48(H) 0.20 - 0.80 K/cumm [facility] Comment:Testing performed by : [address] [address] Eosinophil abs 0.24 0.00 - 0.50 K/cumm [facility] Comment:Testing performed by : [address] [address] Basophil abs 0.06 0.00 - 0.10 K/cumm [facility] Comment:Testing performed by : [address] [address] Neutrophil pct 45.3 % [facility] Comment: Interpretive Data Percent cell count reference ranges are not reported, since discordance with absolute values may lead to misinterpretation of CBC data. Current Interpretive Data was last revised on 2017. Testing performed by: [address] [address] Imm gran pct 0.5 % [facility] Comment: Interpretive Data Percent cell count reference ranges are not reported, since discordance with absolute values may lead to misinterpretation of CBC data. Current Interpretive Data was last revised on 2017. Testing performed by: [address] [address] Lymphocyte pct 36.5 % [facility] Comment: Interpretive Data Percent cell count reference ranges are not reported, since discordance with absolute values may lead to misinterpretation of CBC data. Current Interpretive Data was last revised on 2017. Testing performed by: [address] [address] Monocyte pct 14.7 % [facility] Comment: Interpretive Data Percent cell count reference ranges are not reported, since discordance with absolute values may lead to misinterpretation of CBC data. Current Interpretive Data was last revised on 2017. Testing performed by: [address] [address] Eosinophil pct 2.4 % [facility] Comment: Interpretive Data Percent cell count reference ranges are not reported, since discordance with absolute values may lead to misinterpretation of CBC data. Current Interpretive Data was last revised on 2017. Testing performed by: [address] [address] Basophil pct 0.6 % [facility] Comment: Interpretive Data Percent cell count reference ranges are not reported, since discordance with absolute values may lead to misinterpretation of CBC data. Current Interpretive Data was last revised on 2017. Testing performed by: [address] [address] Blood 01/09/2025 4:55 AM CDT 01/09/2025 4:59 AM CDT us Rasta Garcia MD LAB BLOOD ORDERABLES Final Res ult [facility] [address] [facility] Department [place] [address] * (ABNORMAL) CBC with auto differential (01/09/2025 4:55 AM CDT) WBC 10.07(H) 3.80 - 9.90 K/cumm Comment:Testing performed by : [address] [address] Hgb 7.3(L) 13.0 - 17.5 g/dL [facility] Comment:Testing performed by : [address] [address] Hct 21.4(L) 38.9 - 50.3 % [facility] Comment:Testing performed by : [address] [address] Plt 285 150 - 400 K/cumm [facility] Comment:Testing performed by : [address] [address] MPV 10.1 9.1 - 12.3 fL [facility] Comment:Testing performed by : [address] [address] RBC 2.44(L) 4.30 - 5.80 M/cumm [facility] Comment:Testing performed by : [address] [address] MCV 87.7 81.3 - 96.4 fL [facility] Comment:Testing performed by : [address], [address] MCH 29.9 27.1 - 33.3 pg [facility] Comment:Testing performed by : [address] [address] MCHC 34.1 32.3 - 35.7 g/dL [facility] Comment:Testing performed by : [address] [address] RDW CV 22.1(H) 11.1 - 14.9 % [facility] Comment:Testing performed by : [address] [address] RDW SD 67.3(H) 35.7 - 48.1 fL [facility] Comment:Testing performed by : [address] [address] NRBC abs 0.19(H) 0.00 - 0.01 K/cumm [facility] Comment:Testing performed by : [address], [address] Morphologic Screen Results confirmed by manual morphology review. [facility] Comment:Testing performed by : [address] [address] Blood 01/09/2025 4:55 AM CDT 01/09/2025 4:59 AM CDT us Rasta Garcia MD LAB BLOOD ORDERABLES Final Res ult Performing Organization Address [facility] Co de Phone Number [facility] [place] [address] * (ABNORMAL) Reticulocyte Count (01/09/2025 4:55 AM CDT) Retics, absolute 566(H) 20 - 87 K/cumm Comment:Testing performed by : [address] [address] Retics 23.2(H) 0.4 - 2.9 % [facility] Comment:Testing performed by : [address] [address] Reticulocyte Hgb 28.1(L) 30.5 - 38.0 pg [facility] Comment:Testing performed by : [facility], [address] [place] [address]., [address] Blood 01/09/2025 4:55 AM CDT 01/09/2025 4:59 AM CDT us Rasta Garcia MD LAB BLOOD ORDERABLES Final Res ult Performing Organization Address [facility] Co de Phone Number [facility] [address] * eGFR (01/09/2025 4:50 AM CDT) [facility] eGFR >90 >=60 mL/min/1. 73 m2 [...] of Race in Diagnosing Kidney Disease, JASN 2021). The CKD-EPI equation should not be used for patients with unstable renal function and has not been validated in children and those over 70. Current interpretive data was last reviewed 2021. Testing performed by: [address] [address] Blood 01/09/2025 4:50 AM CDT 01/09/2025 4:59 AM CDT Rasta Garcia MD LAB BLOOD ORDERABLES Final Res ult [facility] [address] [facility] Department [place] [address] * (ABNORMAL) Basic metabolic panel (01/09/2025 4:50 AM CDT) Sodium 137 135 - 145 mmol/L Comment:Testing performed by : [address] [address] Potassium, pl 3.9 3.3 - 4.9 mmol/L [facility] Comment:Testing performed by : [address] [address] Chloride 102 97 - 110 mmol/L [facility] Comment:Testing performed by : [address] [address] CO2 23 22 - 32 mmol/L [place] Comment:Testing performed by : [address] [address] Anion gap 12 2 - 15 mmol/L [facility] Comment:Testing performed by : [address] [address] BUN 4(L) 6 - 25 mg/dL [facility] Comment:Testing performed by : [address] [address] Creatinine 0.56(L) 0.80 - 1.30 mg/dL [facility] Comment:Testing performed by : [address] [address] Glucose 109 70 - 199 mg/dL [facility] [...] was last revised 2022. Testing performed by: [address] [address] Calcium 8.8 8.5 - 10.3 mg/dL [facility] Comment:Testing performed by : [address] [address] Blood 01/09/2025 4:50 AM CDT 01/09/2025 4:59 AM CDT us Rasta Garcia MD LAB BLOOD ORDERABLES Final Res ult Performing Organization Address City/State/[facility] Co de Phone Number [facility] [address] [facility] [place] [address] * CT Abdomen Pelvis WO Contrast (01/08/2025 [...] Anival Cotton M.D. NS: NS Report ID: [id number] Reading Location: [id number] Procedure Note Anival Cotton MD - 01/08/2025 [...] Anival Cotton M.D. NS: NS Report ID: [id number] Reading Location: [place] [address] Jaya Garcia DO IMG CT PROCEDURES Final [...] was last reviewed 2021. Testing performed by: [address] [address] Blood 01/07/2025 10:4 8 AM CDT 01/07/2025 11:07 AM CDT us Rasta Garcia MD LAB BLOOD ORDERABLES Final Res ult [facility] [facility] Department [place] [address] * (ABNORMAL) CBC with auto differential (01/07/2025 10:48 AM CDT) WBC 8.71 3.80 - 9.90 K/cumm Comment:Testing performed by : [address] [address] Hgb 8.0(L) 13.0 - 17.5 g/dL [facility] SHETTY Comment:Testing performed by : [address] [address] Hct 23.2(L) 38.9 - 50.3 % [facility] SHETTY Comment:Testing performed by : [address] [address] Plt 324 150 - 400 K/cumm [facility] SHETTY Comment:Testing performed by : [address] [address] MPV 10.3 9.1 - 12.3 fL [facility] SHETTY Comment:Testing performed by : [address] [address] RBC 2.58(L) 4.30 - 5.80 M/cumm [facility] SHETTY Comment:Testing performed by : [address] [address] MCV 89.9 81.3 - 96.4 fL [facility] SHETTY Comment:Testing performed by : [address] [address] MCH 31.0 27.1 - 33.3 pg [facility] SHETTY Comment:Testing performed by : [address] [address] MCHC 34.5 32.3 - 35.7 g/dL [facility] SHETTY Comment:Testing performed by : [address], [address] RDW CV 21.6(H) 11.1 - 14.9 % [facility] SHETTY Comment:Testing performed by : [address], [address] RDW SD 68.9(H) 35.7 - 48.1 fL [facility] Comment:Testing performed by : [address], [address] NRBC abs 0.26(H) 0.00 - 0.01 K/cumm [facility] Comment:Testing performed by : [address] [address] Blood 01/07/2025 10:4 8 AM CDT 01/07/2025 11:07 AM CDT us Jaya Garcia DO LAB BLOOD ORDERABLES Edited Resu lt - Final [facility] [address] [facility] Department [place] [address] * (ABNORMAL) Manual Differential (01/07/2025 10:48 AM CDT) Differential Manual Comment:Testing performed by : [address], [address] Cells Counted 100 [facility] SHETTY Comment:Testing performed by : [address], [place]., [address] Neutrophil abs 3.92 1.50 - 6.50 K/cumm [facility] Comment:Testing performed by : [address], [place]., [address] Lymphocyte abs 4.44(H) 0.80 - 3.30 K/cumm [facility] Comment:Testing performed by : [address], [place]., [address] Monocyte abs 0.26 0.20 - 0.80 K/cumm [facility] Comment:Testing performed by : [address], [place]., [address] Eosinophil abs 0.09 0.00 - 0.50 K/cumm [facility] Comment:Testing performed by : [address], [place]., [address] Neutrophil pct 45.0 % [facility] Comment: Interpretive Data Percent cell count reference ranges are not reported, since discordance with absolute values may lead to misinterpretation of CBC data. Current Interpretive Data was last revised on 2017. Testing performed by: [address] [address] Lymphocyte pct 51.0 % [facility] Comment: Interpretive Data Percent cell count reference ranges are not reported, since discordance with absolute values may lead to misinterpretation of CBC data. Current Interpretive Data was last revised on 2017. Testing performed by: [address] [address] Monocyte pct 3.0 % [facility] Comment: Interpretive Data Percent cell count reference ranges are not reported, since discordance with absolute values may lead to misinterpretation of CBC data. Current Interpretive Data was last revised on 2017. Testing performed by: [address] [address] Eosinophil pct 1.0 % [facility] Comment: Interpretive Data Percent cell count reference ranges are not reported, since discordance with absolute values may lead to misinterpretation of CBC data. Current Interpretive Data was last revised on 2017. Testing performed by: [address], [place]., [address] RBC morphology Present(A) [facility] Comment:Testing performed by : [address], [place]., [address] Anisocytosis Marked(A) [facility] Comment:Testing performed by : [address], [place]., [address] Sickle cells 1-2/HPF(A) [facility] Comment:Testing performed by : [address], [place]., [address] Elliptocytes 3-7/HPF(A) [facility] Comment:Testing performed by : [address], [place]., [address] Target cells 3-7/HPF(A) [facility] Comment:Testing performed by : [address], [place]., [address] Platelet morphology Normal [facility] Comment:Testing performed by : [address], [place]., [address] Platelet estimate Adequate [facility] Comment:Testing performed by : [address], [place]., [address] Blood 01/07/2025 10:4 8 AM CDT 01/07/2025 11:07 AM CDT us Jaya Garcia DO LAB BLOOD ORDERABLES Final Resul t [facility] [place] [address] * (ABNORMAL) Reticulocyte Count (01/07/2025 10:48 AM CDT) Retics, absolute 559(H) 20 - 87 K/cumm Comment:Testing performed by : [address], [place]., [address] Retics 20.7(H) 0.4 - 2.9 % [facility] Comment:Testing performed by : [address], [facility] [address] Reticulocyte Hgb 28.5(L) 30.5 - 38.0 pg [facility] Comment:Testing performed by : [facility], [address] [place] [address]., [address] Blood 01/07/2025 10:4 8 AM CDT 01/07/2025 11:07 AM CDT us Rasta Garcia MD LAB BLOOD ORDERABLES Final Res ult [facility] [address] [facility] [place] [address] * (ABNORMAL) Basic metabolic panel (01/07/2025 10:48 AM CDT) Sodium 141 135 - 145 mmol/L Comment:Testing performed by : [address] [address] Potassium, pl 3.3 3.3 - 4.9 mmol/L [facility] Comment:Testing performed by : [address] [address] Chloride 104 97 - 110 mmol/L [place] Comment:Testing performed by : [address] [address] CO2 25 22 - 32 mmol/L [place] Comment:Testing performed by : [address] [address] Anion gap 12 2 - 15 mmol/L [place] Comment:Testing performed by : [address] [address] BUN 2(L) 6 - 25 mg/dL [place] Comment:Testing performed by : [address] [address] Creatinine 0.50(L) 0.80 - 1.30 mg/dL [facility] Comment:Testing performed by : [address] [address] Glucose 162 70 - 199 mg/dL [facility] [...] was last revised 2022. Testing performed by: [facility], [address] [place] [address]., [address] Calcium 8.6 8.5 - 10.3 mg/dL [place] SHETTY Comment:Testing performed by : [address] [address] Blood 01/07/2025 10:4 8 AM CDT 01/07/2025 11:07 AM CDT us Rasta Garcia MD LAB BLOOD ORDERABLES Final Res ult [place] SHETT[facility] [address] [facility] [place] [address] * eGFR (01/06/2025 6:52 AM CDT) eGFR [...] was last reviewed 2021. Testing performed by: [address] [address] Blood 01/06/2025 6:52 AM CDT 01/06/2025 7:14 AM CDT us Rasta Garcia MD LAB BLOOD ORDERABLES Final Res ult [facility] [address] [facility] Department [place] [address] * (ABNORMAL) Basic metabolic panel (01/06/2025 6:52 AM CDT) Sodium 139 135 - 145 mmol/L Comment:Testing performed by : [address] [address] Potassium, pl 3.7 3.3 - 4.9 mmol/L [place] Comment:Testing performed by : [address] [address] Chloride 103 97 - 110 mmol/L [place] Comment:Testing performed by : [address] [address] CO2 23 22 - 32 mmol/L [place] Comment:Testing performed by : [address] [address] Anion gap 13 2 - 15 mmol/L [place] Comment:Testing performed by : [address] [address] BUN 2(L) 6 - 25 mg/dL [place] Comment:Testing performed by : [address] [address] Creatinine 0.50(L) 0.80 - 1.30 mg/dL [place] Comment:Testing performed by : [address] [address] Glucose 95 70 - 199 mg/dL [place] [...] was last revised 2022. Testing performed by: [address] [address] Calcium 8.6 8.5 - 10.3 mg/dL [facility] Comment:Testing performed by : [address] [address] Blood 01/06/2025 6:52 AM CDT 01/06/2025 7:14 AM CDT us Rasta Garcia MD LAB BLOOD ORDERABLES Final Res ult [facility] DIOGENES [address] [facility] [place] [address] * eGFR (01/04/2025 7:27 AM [...] was last reviewed 2021. Testing performed by: [address] [address] Blood 01/04/2025 7:27 AM CDT 01/04/2025 7:34 AM CDT us Rasta Garcia MD LAB BLOOD ORDERABLES Final Res ult [facility] [address] [facility] Department [place] [address] * (ABNORMAL) CBC with auto differential (01/04/2025 7:27 AM CDT) WBC 10.50(H) 3.80 - 9.90 K/cumm Comment:Testing performed by : [address] [address] Hgb 8.4(L) 13.0 - 17.5 g/dL [facility] Comment:Testing performed by : [address] [address] Hct 25.3(L) 38.9 - 50.3 % [facility] Comment:Testing performed by : [address] [address] Plt 299 150 - 400 K/cumm [facility] Comment:Testing performed by : [address] [address] MPV 9.8 9.1 - 12.3 fL [facility] Comment:Testing performed by : [address] [address] RBC 2.76(L) 4.30 - 5.80 M/cumm [facility] Comment:Testing performed by : [address] [address] MCV 91.7 81.3 - 96.4 fL [facility] Comment:Testing performed by : [address] [address] MCH 30.4 27.1 - 33.3 pg [facility] Comment:Testing performed by : [address] [address] MCHC 33.2 32.3 - 35.7 g/dL [facility] Comment:Testing performed by : [address] [address] RDW CV 23.3(H) 11.1 - 14.9 % [facility] Comment:Testing performed by : [address] [address] RDW SD 74.0(H) 35.7 - 48.1 fL [facility] Comment:Testing performed by : [address] [address] NRBC abs 0.21(H) 0.00 - 0.01 K/cumm [facility] Comment:Testing performed by : [address] [address] Blood 01/04/2025 7:27 AM CDT 01/04/2025 7:34 AM CDT us Rasta Garcia MD LAB BLOOD ORDERABLES Edited Re sharifat - Final [facility] [facility] Department [place] [address] * (ABNORMAL) Manual Differential (01/04/2025 7:27 AM CDT) Differential Manual Comment:Testing performed by : [address] [address] Cells Counted 100 [facility] Comment:Testing performed by : [address] [address] Neutrophil abs 3.26 1.50 - 6.50 K/cumm [facility] Comment:Testing performed by : [address] [address] Lymphocyte abs 5.88(H) 0.80 - 3.30 K/cumm [facility] Comment:Testing performed by : [address] [address] Monocyte abs 0.63 0.20 - 0.80 K/cumm [facility] Comment:Testing performed by : [address] [address] Eosinophil abs 0.53(H) 0.00 - 0.50 K/cumm [facility] Comment:Testing performed by : [address] [address] Basophil abs 0.21(H) 0.00 - 0.10 K/cumm [facility] Comment:Testing performed by : [address] [address] Neutrophil pct 31.0 % [facility] Comment: Interpretive Data Percent cell count reference ranges are not reported, since discordance with absolute values may lead to misinterpretation of CBC data. Current Interpretive Data was last revised on 2017. Testing performed by: [address] [address] Lymphocyte pct 56.0 % [facility] Comment: Interpretive Data Percent cell count reference ranges are not reported, since discordance with absolute values may lead to misinterpretation of CBC data. Current Interpretive Data was last revised on 2017. Testing performed by: [address] [address] Monocyte pct 6.0 % [facility] Comment: Interpretive Data Percent cell count reference ranges are not reported, since discordance with absolute values may lead to misinterpretation of CBC data. Current Interpretive Data was last revised on 2017. Testing performed by: [address] [address] Eosinophil pct 5.0 % [facility] Comment: Interpretive Data Percent cell count reference ranges are not reported, since discordance with absolute values may lead to misinterpretation of CBC data. Current Interpretive Data was last revised on 2017. Testing performed by: [address] [address] Basophil pct 2.0 % [facility] Comment: Interpretive Data Percent cell count reference ranges are not reported, since discordance with absolute values may lead to misinterpretation of CBC data. Current Interpretive Data was last revised on 2017. Testing performed by: [address] [address] Vacuolation Present(A) [facility] Comment:Testing performed by : [address] [address] RBC morphology Present(A) [facility] Comment:Testing performed by : [address] [address] Polychromasia 3-7/HPF(A) [facility] Comment:Testing performed by : [address] [address] Anisocytosis Marked(A) [facility] Comment:Testing performed by : [facility], [address] [place] [address]., [address] Macrocytes 3-7/HPF(A) [facility] Comment:Testing performed by : [address] [address] Schistocytes 1-2/HPF(A) [facility] Comment:Testing performed by : [address] [address] Sickle cells 3-7/HPF(A) [facility] Comment:Testing performed by : [address], [place]., [address] Platelet estimate Adequate [facility] Comment:Testing performed by : [address] [address] Giant platelets Present(A) [facility] Comment:Testing performed by : [address] [address] Blood 01/04/2025 7:27 AM CDT 01/04/2025 7:34 AM CDT us Rasta Garcia MD LAB BLOOD ORDERABLES Final Res ult [facility] [address] [facility] Department [place] [address] * (ABNORMAL) Reticulocyte Count (01/04/2025 7:27 AM CDT) Retics, absolute 532(H) 20 - 87 K/cumm Comment:Testing performed by : [address] [address] Retics 19.3(H) 0.4 - 2.9 % [facility] Comment:Testing performed by : [address] [address] Reticulocyte Hgb 34.7 30.5 - 38.0 pg [facility] Comment:Testing performed by : [address] [address] Blood 01/04/2025 7:27 AM CDT 01/04/2025 7:34 AM CDT us Rasta Garcia MD LAB BLOOD ORDERABLES Final Res ult [facility] [address] [facility] Department [place] [address] * (ABNORMAL) Basic metabolic panel (01/04/2025 7:27 AM CDT) Sodium 137 135 - 145 mmol/L Comment:Testing performed by : [address] [address] Potassium, pl 3.5 3.3 - 4.9 mmol/L [facility] Comment:Testing performed by : [address] [address] Chloride 100 97 - 110 mmol/L [facility] Comment:Testing performed by : [address] [address] CO2 25 22 - 32 mmol/L [facility] Comment:Testing performed by : [address] [address] Anion gap 12 2 - 15 mmol/L [facility] Comment:Testing performed by : [address] [address] BUN 2(L) 6 - 25 mg/dL [facility] Comment:Testing performed by : [address] [address] Creatinine 0.49(L) 0.80 - 1.30 mg/dL [facility] Comment:Testing performed by : [address] [address] Glucose 106 70 - 199 mg/dL [facility] [...] was last revised 2022. Testing performed by: [facility], [address] [place] [address]., [address] Calcium 9.1 8.5 - 10.3 mg/dL [facility] Comment:Testing performed by : [address] [address] Blood 01/04/2025 7:27 AM CDT 01/04/2025 7:34 AM CDT us Rasta Garcia MD LAB BLOOD ORDERABLES Final Res ult [facility] [address] [facility] Department [place] [address] * (ABNORMAL) Blood smear review (01/03/2025 7:30 AM CDT) RBC morphology Present(A) Comment:Testing performed by : [address] [address] Polychromasia 3-7/HPF(A) [facility] Comment:Testing performed by : [address] [address] Anisocytosis Slight(A) [facility] Comment:Testing performed by : [address] [address] Poikilocytosis Slight(A) [facility] Comment:Testing performed by : [address] [address] Sickle cells 1-2/HPF(A) [facility] Comment:Testing performed by : [address] [address] Elliptocytes 3-7/HPF(A) [facility] Comment:Testing performed by : [address] [address] Target cells 3-7/HPF(A) [facility] Comment:Testing performed by : [address] [address] Platelet estimate Adequate [facility] Comment:Testing performed by : [address] [address] Blood 01/03/2025 7:30 AM CDT 01/03/2025 7:44 AM CDT us Rasta Garcia MD LAB BLOOD ORDERABLES Final Res ult Performing Organization Address [facility] Co de Phone Number [facility] [address] [place] [address] * eGFR (01/03/2025 7:30 AM CDT) eGFR >90 >=60 mL/min/1. 73 [...] was last reviewed 2021. Testing performed by: [facility], [address] [place] [address]., [address] Blood 01/03/2025 7:30 AM CDT 01/03/2025 7:44 AM CDT us Rasta Garcia MD LAB BLOOD ORDERABLES Final Res ult Performing Organization Address City/[facility]/ZIP Co de Phone Number [facility] [address] [place] [address] * (ABNORMAL) Differential, auto (01/03/2025 7:30 AM CDT) Neutrophil abs 5.76 1.50 - 6.50 K/cumm Comment:Testing performed by : [facility], [address] [place] [address], [place]., [address] Imm gran abs 0.13(H) 0.00 - 0.10 K/cumm [facility] Comment:Testing performed by : [address], [place]., [address] Lymphocyte abs 3.10 0.80 - 3.30 K/cumm [facility] Comment:Testing performed by : [address], [place]., [address] Monocyte abs 0.98(H) 0.20 - 0.80 K/cumm [facility] Comment:Testing performed by : [address], [place]., [address] Eosinophil abs 0.21 0.00 - 0.50 K/cumm [facility] Comment:Testing performed by : [address], [place]., [address] Basophil abs 0.07 0.00 - 0.10 K/cumm [facility] Comment:Testing performed by : [address] [address] Neutrophil pct 56.2 % [facility] Comment: Interpretive Data Percent cell count reference ranges are not reported, since discordance with absolute values may lead to misinterpretation of CBC data. Current Interpretive Data was last revised on 2017. Testing performed by: [address] [address] Imm gran pct 1.3 % [facility] Comment: Interpretive Data Percent cell count reference ranges are not reported, since discordance with absolute values may lead to misinterpretation of CBC data. Current Interpretive Data was last revised on 2017. Testing performed by: [address] [address] Lymphocyte pct 30.2 % [facility] Comment: Interpretive Data Percent cell count reference ranges are not reported, since discordance with absolute values may lead to misinterpretation of CBC data. Current Interpretive Data was last revised on 2017. Testing performed by: [address] [address] Monocyte pct 9.6 % [facility] Comment: Interpretive Data Percent cell count reference ranges are not reported, since discordance with absolute values may lead to misinterpretation of CBC data. Current Interpretive Data was last revised on 2017. Testing performed by: [address] [address] Eosinophil pct 2.0 % [facility] Comment: Interpretive Data Percent cell count reference ranges are not reported, since discordance with absolute values may lead to misinterpretation of CBC data. Current Interpretive Data was last revised on 2017. Testing performed by: [address] [address] Basophil pct 0.7 % [facility] Comment: Interpretive Data Percent cell count reference ranges are not reported, since discordance with absolute values may lead to misinterpretation of CBC data. Current Interpretive Data was last revised on 2017. Testing performed by: [address] [address] Blood 01/03/2025 7:30 AM CDT 01/03/2025 7:44 AM CDT us Rasta Garcia MD LAB BLOOD ORDERABLES Final [facility] [address] [facility] Department [place] [address] * (ABNORMAL) CBC with auto differential (01/03/2025 7:30 AM CDT) WBC 10.25(H) 3.80 - 9.90 K/cumm Comment:Testing performed by : [address] [address] Hgb 7.7(L) 13.0 - 17.5 g/dL [facility] Comment:Testing performed by : [address] [address] Hct 22.5(L) 38.9 - 50.3 % [facility] Comment:Testing performed by : [address] [address] Plt 350 150 - 400 K/cumm [facility] Comment:Testing performed by : [address] [address] MPV 10.1 9.1 - 12.3 fL [facility] Comment:Testing performed by : [address] [address] RBC 2.55(L) 4.30 - 5.80 M/cumm [facility] Comment:Testing performed by : [address] [address] MCV 88.2 81.3 - 96.4 fL [facility] Comment:Testing performed by : [address] [address] MCH 30.2 27.1 - 33.3 pg [facility] Comment:Testing performed by : [address], [address] MCHC 34.2 32.3 - 35.7 g/dL [facility] Comment:Testing performed by : [address], [address] RDW CV 22.1(H) 11.1 - 14.9 % [facility] Comment:Testing performed by : [address] [address] RDW SD 67.4(H) 35.7 - 48.1 fL [facility] Comment:Testing performed by : [address] [address] NRBC abs 0.35(H) 0.00 - 0.01 K/cumm [facility] Comment:Testing performed by : [address] [address] Blood 01/03/2025 7:30 AM CDT 01/03/2025 7:44 AM CDT us Rasta Garcia MD LAB BLOOD ORDERABLES Edited Re cindi - Final [facility] [address] [facility] [place] [address] * (ABNORMAL) Reticulocyte Count (01/03/2025 7:30 AM CDT) Retics, absolute 471(H) 20 - 87 K/cumm Comment:Testing performed by : [address] [address] Retics 18.5(H) 0.4 - 2.9 % [facility] Comment:Testing performed by : [address] [address] Reticulocyte Hgb 31.1 30.5 - 38.0 pg [facility] Comment:Testing performed by : [address] [address] Blood 01/03/2025 7:30 AM CDT 01/03/2025 7:44 AM CDT us Rasta Garcia MD LAB BLOOD ORDERABLES Final Res ult [facility] [address] [facility] Department [place] [address] * (ABNORMAL) Basic metabolic panel (01/03/2025 7:30 AM CDT) Sodium 138 135 - 145 mmol/L Comment:Testing performed by : [address] [address] Potassium, pl 3.5 3.3 - 4.9 mmol/L [facility] Comment:Testing performed by : [address] [address] Chloride 101 97 - 110 mmol/L [facility] Comment:Testing performed by : [address] [address] CO2 26 22 - 32 mmol/L [facility] Comment:Testing performed by : [address] [address] Anion gap 11 2 - 15 mmol/L [facility] Comment:Testing performed by : [address] [address] BUN <2(L) 6 - 25 mg/dL [facility] Comment:Testing performed by : [address] [address] Creatinine 0.50(L) 0.80 - 1.30 mg/dL [facility] Comment:Testing performed by : [address] [address] Glucose 106 70 - 199 mg/dL [facility] [...] was last revised 2022. Testing performed by: [address] [address] Calcium 8.8 8.5 - 10.3 mg/dL [facility] Comment:Testing performed by : [address] [address] Blood 01/03/2025 7:30 AM CDT 01/03/2025 7:44 AM CDT us Rasta Garcia MD LAB BLOOD ORDERABLES Final Res ult [facility] [address] [facility] [place] [address] * Troponin T high-sensitivity 4-hour (01/01/2025 4:09 AM CDT) Trop T hs <6 <=22 ng/L Comment: Interpretive Data For further hscTnT resources including the diagnostic algorithm and an aid in interpretation, copy and paste this link: https://nrl.testcatalog.org/show/hsTrop Current Interpretive Data last revised 2020. Testing performed by: [address] [address] Trop T hs delta -2 ng/L [facility] Comment:Testing performed by : [address] [address] Trop T hs interp Insignificant [facility] Comment:Testing performed by : [facility], [address] [place] [address], [place]., [address] Blood 01/01/2025 4:09 AM CDT 01/01/2025 4:16 AM CDT us Bill Carrasquillo DO LAB BLOOD ORDERABLES Final Res ult [facility] [address] [facility] [place] [address] * XR Chest 1 Vw Portable (01/01/2025 [...] Andrew Stubbs M.D. AR: TOREY Report ID: [id number] Reading Location: [id number] Procedure Note Andrew Stubbs MD - 01/01/2025 [...] Andrew Stubbs M.D. AR: TOREY Report ID: [id number] Reading Location: [id number] us Bill Carrasquillo DO IMG XR PROCEDURES Final Result * Troponin T high-sensitivity series (baseline, 2hr, 4hr, 6hr) (12/31/2024 11:57 PM CDT) Trop T hs 8 <=22 ng/L Comment: Interpretive Data For further hscTnT resources including the diagnostic algorithm and an aid in interpretation, copy and paste this link: https://nrl.testcatalog.org/show/hsTrop Current Interpretive Data last revised 2020. Testing performed by: [facility], [address] [place] [address]., [address] Blood 12/31/2024 11:5 7 PM CDT 01/01/2025 12:09 AM CDT us Bill Carrasquillo DO LAB BLOOD ORDERABLES Final Res ult [facility] [address] [facility] [place] [address] * eGFR (12/31/2024 11:57 PM CDT) eGFR [...] was last reviewed 2021. Testing performed by: [address] [address] Blood 12/31/2024 11:5 7 PM CDT 01/01/2025 12:09 AM CDT us Bill Carrasquillo DO LAB BLOOD ORDERABLES Final Res ult [facility] [address] [facility] Department [place] [address] * (ABNORMAL) Differential, auto (12/31/2024 11:57 PM CDT) Neutrophil abs 6.19 1.50 - 6.50 K/cumm Comment:Testing performed by : [address] [address] Imm gran abs 0.07 0.00 - 0.10 K/cumm [facility] Comment:Testing performed by : [address] [address] Lymphocyte abs 4.31(H) 0.80 - 3.30 K/cumm [facility] Comment:Testing performed by : [address] [address] Monocyte abs 1.49(H) 0.20 - 0.80 K/cumm [facility] Comment:Testing performed by : [address] [address] Eosinophil abs 0.14 0.00 - 0.50 K/cumm [facility] Comment:Testing performed by : [address] [address] Basophil abs 0.08 0.00 - 0.10 K/cumm [facility] Comment:Testing performed by : [address] [address] Neutrophil pct 50.4 % [facility] Comment: Interpretive Data Percent cell count reference ranges are not reported, since discordance with absolute values may lead to misinterpretation of CBC data. Current Interpretive Data was last revised on 2017. Testing performed by: [address] [address] Imm gran pct 0.6 % [facility] Comment: Interpretive Data Percent cell count reference ranges are not reported, since discordance with absolute values may lead to misinterpretation of CBC data. Current Interpretive Data was last revised on 2017. Testing performed by: [address] [address] Lymphocyte pct 35.1 % [facility] Comment: Interpretive Data Percent cell count reference ranges are not reported, since discordance with absolute values may lead to misinterpretation of CBC data. Current Interpretive Data was last revised on 2017. Testing performed by: [address] [address] Monocyte pct 12.1 % [facility] Comment: Interpretive Data Percent cell count reference ranges are not reported, since discordance with absolute values may lead to misinterpretation of CBC data. Current Interpretive Data was last revised on 2017. Testing performed by: [address] [address] Eosinophil pct 1.1 % [facility] Comment: Interpretive Data Percent cell count reference ranges are not reported, since discordance with absolute values may lead to misinterpretation of CBC data. Current Interpretive Data was last revised on 2017. Testing performed by: [address] [address] Basophil pct 0.7 % [facility] Comment: Interpretive Data Percent cell count reference ranges are not reported, since discordance with absolute values may lead to misinterpretation of CBC data. Current Interpretive Data was last revised on 2017. Testing performed by: [address] [address] Blood 12/31/2024 11:5 7 PM CDT 01/01/2025 12:09 AM CDT us Bill Carrasquillo DO LAB BLOOD ORDERABLES Final Res ult [facility] [address] [facility] Department [place] [address] * (ABNORMAL) CBC with auto differential (12/31/2024 11:57 PM CDT) WBC 12.28(H) 3.80 - 9.90 K/cumm Comment:Testing performed by : [address] [address] Hgb 7.8(L) 13.0 - 17.5 g/dL [facility] Comment:Testing performed by : [address] [address] Hct 23.2(L) 38.9 - 50.3 % [facility] Comment:Testing performed by : [address] [address] Plt 277 150 - 400 K/cumm [facility] Comment:Testing performed by : [address] [address] MPV 10.0 9.1 - 12.3 fL [facility] Comment:Testing performed by : [address] [address] RBC 2.65(L) 4.30 - 5.80 M/cumm [facility] Comment:Testing performed by : [address] [address] MCV 87.5 81.3 - 96.4 fL [facility] Comment:Testing performed by : [address] [address] MCH 29.4 27.1 - 33.3 pg [facility] Comment:Testing performed by : [address] [address] MCHC 33.6 32.3 - 35.7 g/dL [facility] Comment:Testing performed by : [address] [address] RDW CV 20.6(H) 11.1 - 14.9 % [facility] Comment:Testing performed by : [address] [address] RDW SD 64.0(H) 35.7 - 48.1 fL [facility] Comment:Testing performed by : [address] [address] NRBC abs 0.06(H) 0.00 - 0.01 K/cumm [facility] Comment:Testing performed by : [address] [address] Morphologic Screen Results confirmed by manual morphology review. [facility] Comment:Testing performed by : [address] [address] Blood 12/31/2024 11:5 7 PM CDT 01/01/2025 12:09 AM CDT us Bill Carrasquillo DO LAB BLOOD ORDERABLES Final Res ult [facility] [address] [facility] Department [place] [address] * (ABNORMAL) Reticulocyte Count (12/31/2024 11:57 PM CDT) Retics, absolute 410(H) 20 - 87 K/cumm Comment:Testing performed by : [address] [address] Retics 15.5(H) 0.4 - 2.9 % [facility] Comment:Testing performed by : [address] [address] Reticulocyte Hgb 30.8 30.5 - 38.0 pg [facility] Comment:Testing performed by : [address] [address] Blood 12/31/2024 11:5 7 PM CDT 01/01/2025 12:09 AM CDT us Bill Carrasquillo LAB BLOOD ORDERABLES Final Res ult [facility] [address] [facility] Department [place] [address] * (ABNORMAL) Comprehensive metabolic panel (12/31/2024 11:57 PM CDT) Sodium 137 135 - 145 mmol/L Comment:Testing performed by : [address] [address] Potassium, pl 3.2(L) 3.3 - 4.9 mmol/L [facility] Comment:Testing performed by : [address] [address] Chloride 103 97 - 110 mmol/L [facility] Comment:Testing performed by : [address] [address] CO2 23 22 - 32 mmol/L [facility] Comment:Testing performed by : [address] [address] Anion gap 11 2 - 15 mmol/L [facility] Comment:Testing performed by : [address] [address] BUN 4(L) 6 - 25 mg/dL [facility] Comment:Testing performed by : [address] [address] Creatinine 0.60(L) 0.80 - 1.30 mg/dL [facility] Comment:Testing performed by : [address] [address] Glucose 115 70 - 199 mg/dL [facility] [...] was last revised 2022. Testing performed by: [facility], [address] [place] [address]., [address] Calcium 9.1 8.5 - 10.3 mg/dL [facility] Comment:Testing performed by : [address] [address] Bilirubin, total 5.6(H) 0.1 - 1.2 mg/dL [facility] Comment:Testing performed by : [address] [address] Protein, pl 7.9 6.5 - 8.5 g/dL [facility] Comment:Testing performed by : [address] [address] Albumin 4.1 3.5 - 5.0 g/dL [facility] Comment:Testing performed by : [address] [address] Alk phos 353(H) 40 - 130 Units/L [facility] Comment:Testing performed by : [address] [address] ALT 27 7 - 55 Units/L [facility] Comment:Testing performed by : [address] [address] AST 53(H) 10 - 50 Units/L [facility] Comment:Testing performed by : [address] [address] Blood 12/31/2024 11:5 7 PM CDT 01/01/2025 12:09 AM CDT us Bill Carrasquillo DO LAB BLOOD ORDERABLES Final Res ult [facility] [address] [facility] [place] [address] * ECG 12 lead (12/31/2024 11:51 PM CDT) Ventricular Rate EKG/Min 107 BPM [facility] Atrial Rate 107 BPM [facility] VA-Interval (MSEC) 178 ms [facility] QRS-Interval (MSEC) 80 ms [facility] QT-Interval (MSEC) 344 ms [facility] QTc 459 ms [facility] P Hammond 51 degrees [facility] R Hammond 4 degrees [facility] T Hammond 15 degrees [facility] Diagnosis Sinus tachycardia Otherwise normal ECG When compared with ECG of 22-DEC-2024 13:08, Nonspecific T wave abnormality no longer evident in Lateral leads Confirmed by Rodrigue Fonseca M.D. ([id number]) on 01/03/2025 8:51:05 AM [facility] 12/31/2024 11:5 1 PM CDT 01/03/2025 8:51 AM CDT us Bill Carrasquillo DO ECG ORDERABLES Final Result [facility] * CT Chest PE (CTA) W Contrast [...] by: Tianna Shepard M.D. Elijah Ramirez MD [facility] [place] CT PROCEDURES Final Result * Respiratory pathogen panel Nasopharyngeal (12/23/2024 4:03 PM CDT) Pathologist [facility] Influenza A RNA Not Detected Not Detected [facility] [facility] Influenza B RNA Not Detected Not Detected [facility] RSV RNA Not Detected Not Detected [facility] COVID-19 RNA Not Detected Not Detected [facility] Coronavirus 229E RNA Not Detected Not Detected [facility] Coronavirus HKU1 RNA Not Detected Not Detected [facility] Coronavirus NL63 RNA Not Detected Not Detected [facility] Coronavirus OC43 RNA Not Detected Not Detected [facility] Adenovirus DNA Not Detected Not Detected [facility] Metapneumovirus RNA Not Detected Not Detected [facility] Rhinovirus/Enterov irus RNA Not Detected Not Detected [facility] Parainfluenza 1 RNA Not Detected Not Detected [facility] Parainfluenza 2 RNA Not Detected Not Detected [facility] Parainfluenza 3 RNA Not Detected Not Detected [facility] Parainfluenza 4 RNA Not Detected Not Detected [facility] B. pertussis DNA Not Detected Not Detected [facility] B. parapertussis DNA Not Detected Not Detected [facility] C. pneumoniae DNA Not Detected Not Detected [facility] M. pneumoniae DNA Not Detected Not Detected [facility] Comment: Interpretive Data The Shoto FilmArray Respiratory Panel (RP2.1) assay is a [...] assay has FDA clearance for testing of HR OPERATIONS ADVISOR swabs. The performance characteristics of this assay have been determined by [facility]. Current interpretive data was last revised on 2020. Nasopharyngeal 12/23/2024 4: 03 PM CDT 12/23/2024 4:10 PM CDT N[facility]ative [facility] - 12/23/2024 5:11 PM CDT Is the Patient experiencing symptoms consistent with COVID?->Yes Surveillance testing for transplant patient?->No Elijah Ramirez MD LAB MICROBIOLOGY - GENER AL ORDERABLES Final Result [facility] [address] Department [place] [address] [facility] * XR Chest Pa Lateral 2 Vw [...] Result * eGFR (12/23/2024 2:44 PM CDT) Pathologist [facility] eGFR >90 >=60 mL/min/1. 73 m2 [...] García DO LAB BLOOD ORDERABLES Final Result [facility] [address] Department [place] [address] * (ABNORMAL) Differential, auto (12/23/2024 2:44 PM CDT) Pathologist [facility] Neutrophil abs 4.91 1.50 - 6.50 K/cumm Imm gran abs 0.09 0.00 - 0.10 K/cumm [facility] Lymphocyte abs 3.14 0.80 - 3.30 K/cumm [facility] Monocyte abs 1.13(H) 0.20 - 0.80 K/cumm [facility] Eosinophil abs 0.17 0.00 - 0.50 K/cumm [facility] Basophil abs 0.07 0.00 - 0.10 K/cumm [facility] Neutrophil pct 51.7 % [facility] Comment: Interpretive Data Percent cell count reference ranges are not reported, since discordance with absolute values may lead to misinterpretation of CBC data. Current Interpretive Data was last revised on 2017. Imm gran pct 0.9 % [facility] Comment: Interpretive Data Percent cell count reference ranges are not reported, since discordance with absolute values may lead to misinterpretation of CBC data. Current Interpretive Data was last revised on 2017. Lymphocyte pct 33.0 % [facility] Comment: Interpretive Data Percent cell count reference ranges are not reported, since discordance with absolute values may lead to misinterpretation of CBC data. Current Interpretive Data was last revised on 2017. Monocyte pct 11.9 % [facility] Comment: Interpretive Data Percent cell count reference ranges are not reported, since discordance with absolute values may lead to misinterpretation of CBC data. Current Interpretive Data was last revised on 2017. Eosinophil pct 1.8 % [facility] Comment: Interpretive Data Percent cell count reference ranges are not reported, since discordance with absolute values may lead to misinterpretation of CBC data. Current Interpretive Data was last revised on 2017. Basophil pct 0.7 % [facility] Comment: Interpretive Data Percent cell count reference ranges are not reported, since discordance with absolute values may lead to misinterpretation of CBC data. Current Interpretive Data was last revised on 2017. Blood 12/23/2024 2:44 PM CDT 12/23/2024 2:56 PM CDT us Steve García DO LAB BLOOD ORDERABLES Final Result [facility] [address] [place] [address] * (ABNORMAL) Urinalysis reflex to microscopic and culture Urine (12/23/2024 2:44 PM CDT) Color, ur Yellow Yellow Clarity, ur Clear Clear [facility] Specific gravity, ur 1.010 1.003 - 1.030 [facility] pH, urine 7.0 [facility] Comment: Interpretive Data U rine pH is affected by diet, medications, systemic acid-base disturbances, and renal tubular function. pH may affect urinary stone formation. For example, urine pH below 6.0 may help reduce the tendency for calcium phosphate stones and pH greater than 6.0 may reduce the tendency for uric acid stone formation. Source: [facility] [place] Current Interpretive Data was last revised on 2017 Protein, ur ql Negative Negative [facility] Glucose, ur ql Negative Negative [facility] Ketones, ur Negative Negative [facility] Bilirubin, ur Negative Negative [facility] Blood, ur Negative Negative [facility] Urobilinogen, ur 4.0(A) <2.0 mg/dL [facility] Nitrite, ur Negative Negative [facility] Leukocyte esterase, ur Negative Negative [facility] UA reflex comment Reflex conditions for microscopic UA and culture not met. [facility] Urine 12/23/2024 2:44 PM CDT 12/23/2024 2:45 PM CDT Elijah Ramirez MD LAB MICROBIOLOGY - GENER AL ORDERABLES Final Result [facility] [address] Department [place] [address] * (ABNORMAL) CBC with auto differential (12/23/2024 2:44 PM CDT) WBC 9.51 3.80 - 9.90 K/cumm Hgb 8.4(L) 13.0 - 17.5 g/dL [facility] Hct 25.6(L) 38.9 - 50.3 % [facility] Plt 343 150 - 400 K/cumm [facility] MPV 10.3 9.1 - 12.[address] [facility] RBC 2.84(L) 4.30 - 5.80 M/cumm [facility] MCV 90.1 81.3 - 96.[address] [facility] MCH 29.6 27.1 - 33.[address] [facility] MCHC 32.8 32.3 - 35.7 g/dL [facility] RDW CV 19.9(H) 11.1 - 14.9 % [facility] RDW SD 64.4(H) 35.7 - 48.[address] [facility] NRBC abs 0.10(H) 0.00 - 0.01 K/cumm [facility] Morphologic Screen Results confirmed by manual morphology review. [facility] Blood 12/23/2024 2:44 PM CDT 12/23/2024 2:56 PM CDT us Elijah Ramirez MD LAB BLOOD ORDERABLES Rashaun missy Result - Final Performing Organization Address [facility] Co de Phone Number [facility] [address] [place] [address] * (ABNORMAL) Reticulocyte Count (12/23/2024 2:44 PM CDT) [facility] Retics, absolute 450(H) 20 - 87 K/cumm Comment:Retic verified by di lution. Retics 14.5(H) 0.4 - 2.9 % [facility] Comment:Retic verified by di lution. Reticulocyte Hgb 32.5 30.5 - 38.[address] [facility] Blood 12/23/2024 2:44 PM CDT 12/23/2024 2:56 PM CDT us Elijah Ramirez MD LAB BLOOD ORDERABLES Fin al Result Performing Organization Address [facility] Co de Phone Number [facility] [address] Department of [place], [place] [id number] * (ABNORMAL) Comprehensive metabolic panel (12/23/2024 2:44 PM CDT) Sodium 138 135 - 145 mmol/L Potassium, pl 3.6 3.3 - 4.9 mmol/L [facility] Chloride 104 97 - 110 mmol/L [facility] CO2 24 22 - 32 mmol/L [facility] Anion gap 10 2 - 15 mmol/L [facility] BUN 3(L) 6 - 25 mg/dL [facility] Creatinine 0.51(L) 0.80 - 1.30 mg/dL [facility] Glucose 93 70 - 199 mg/dL [facility] Comment: Interpretive Data Fasting glucose >/= [...] 2022. Calcium 9.0 8.5 - 10.3 mg/dL [facility] Bilirubin, total 5.9(H) 0.1 - 1.2 mg/dL [facility] Protein, pl 7.5 6.5 - 8.5 g/dL [facility] Albumin 3.9 3.5 - 5.0 g/dL [facility] Alk phos 392(H) 40 - 130 Units/L [facility] ALT 45 7 - 55 Units/L [facility] AST 71(H) 10 - 50 Units/L [facility] Blood 12/23/2024 2:44 PM CDT 12/23/2024 2:56 PM CDT us Elijah Ramirez MD LAB BLOOD ORDERABLES Fin al Result [facility] [address] [place] [address] * ECG 12 lead (12/23/2024 12:42 PM CDT) 12/23/2024 12:4 2 PM CDT Narrative [facility] - 12/23/2024 1:33 PM CDT Vent Rate: 106 bpm RR Interval: 561 msec VA Interval: 160 msec QRS Duration: 90 msec QT Interval: 368 msec QTC Interval: 430 msec P-R-T Hammond: 64 - 31 - 15 degrees IMPRESSION: SINUS TACHYCARDIA ABNORMAL RHYTHM ECG Electronically Signed By: Celestino Dunlap [facility] Card us Elijah Ramirez MD ECG ORDERABLES Final Re sult [facility] [place] * XR Chest 1 Vw Portable (12/22/2024 [...] Gina Betancur D.O. PS: PS Report ID: [id number] Reading Location: [id number] Procedure Note Gina Betancur DO - 12/22/2024 EXAM DESCRIPTION: XR CHEST [...] Gina Betancur D.O. PS: PS Report ID: [id number] Reading Location: [id number] us Cheyanne Johnson HR OPERATIONS ADVISOR IMG XR PROCEDURES Final Result * ECG 12 lead (12/22/2024 1:08 PM CDT) Ventricular Rate EKG/Min 97 BPM [facility] Atrial Rate 97 BPM [facility] VA-Interval (MSEC) 176 ms [facility] QRS-Interval (MSEC) 88 ms [facility] QT-Interval (MSEC) 368 ms [facility] QTc 467 ms [facility] P Hammond 59 degrees [facility] R Hammond 11 degrees [facility] T Hammond 49 degrees [facility] Diagnosis Normal sinus rhythm Nonspecific T wave abnormality Prolonged QT When compared with ECG of 07-DEC-2024 21:21, No significant change was found Confirmed by SULTAN PARHAM M.D. ([id number]) on 12/22/2024 5:48:18 PM [facility] 12/22/2024 1:08 PM CDT 12/22/2024 5:48 PM CDT Cheyanne Johnson NP ECG ORDERABLES Final Re sult [facility] * (ABNORMAL) Blood smear review (12/22/2024 12:19 PM CDT) RBC morphology Present(A) Comment:Testing performed by : [facility], [address] [place] [address]., [id number] Elliptocytes 3-7/HPF(A) [facility] Comment:Testing performed by : [facility], [address] [place] [address]., [address] Platelet estimate Adequate [place] Comment:Testing performed by : [address] [address] Blood 12/22/2024 12:1 9 PM CDT 12/22/2024 12:23 PM CDT Ang Rick MD LAB BLOOD ORDERABLES Final Result Performing Organization Address City/[facility]/ZIP Co de Phone Number [facility] [address] [facility] Department [place] [address] * eGFR (12/22/2024 12:19 PM CDT) eGFR [...] was last reviewed 2021. Testing performed by: [address] [address] Blood 12/22/2024 12:1 9 PM CDT 12/22/2024 12:23 PM CDT us Ang Rick MD LAB BLOOD ORDERABLES Final Result [facility] [address] [facility] Department [place] [address] * (ABNORMAL) Differential, auto (12/22/2024 12:19 PM CDT) Neutrophil abs 4.68 1.50 - 6.50 K/cumm Comment:Testing performed by : [address] [address] Imm gran abs 0.07 0.00 - 0.10 K/cumm [place] Comment:Testing performed by : [address] [address] Lymphocyte abs 3.02 0.80 - 3.30 K/cumm [place] Comment:Testing performed by : [address] [address] Monocyte abs 0.87(H) 0.20 - 0.80 K/cumm [place] Comment:Testing performed by : [address] [address] Eosinophil abs 0.19 0.00 - 0.50 K/cumm [place] Comment:Testing performed by : [address] [address] Basophil abs 0.05 0.00 - 0.10 K/cumm [place] Comment:Testing performed by : [address] [address] Neutrophil pct 52.7 % [facility] Comment: Interpretive Data Percent cell count reference ranges are not reported, since discordance with absolute values may lead to misinterpretation of CBC data. Current Interpretive Data was last revised on 2017. Testing performed by: [address] [address] Imm gran pct 0.8 % [facility] Comment: Interpretive Data Percent cell count reference ranges are not reported, since discordance with absolute values may lead to misinterpretation of CBC data. Current Interpretive Data was last revised on 2017. Testing performed by: [address] [address] Lymphocyte pct 34.0 % [facility] Comment: Interpretive Data Percent cell count reference ranges are not reported, since discordance with absolute values may lead to misinterpretation of CBC data. Current Interpretive Data was last revised on 2017. Testing performed by: [address] [address] Monocyte pct 9.8 % [facility] Comment: Interpretive Data Percent cell count reference ranges are not reported, since discordance with absolute values may lead to misinterpretation of CBC data. Current Interpretive Data was last revised on 2017. Testing performed by: [address] [address] Eosinophil pct 2.1 % [facility] Comment: Interpretive Data Percent cell count reference ranges are not reported, since discordance with absolute values may lead to misinterpretation of CBC data. Current Interpretive Data was last revised on 2017. Testing performed by: [address] [address] Basophil pct 0.6 % [facility] Comment: Interpretive Data Percent cell count reference ranges are not reported, since discordance with absolute values may lead to misinterpretation of CBC data. Current Interpretive Data was last revised on 2017. Testing performed by: [address] [address] Blood 12/22/2024 12:1 9 PM CDT 12/22/2024 12:23 PM CDT us Ang Rick MD LAB BLOOD ORDERABLES Final Result [facility] [address] [facility] Department [place] [address] * (ABNORMAL) CBC with auto differential (12/22/2024 12:19 PM CDT) [facility] WBC 8.88 3.80 - 9.90 K/cumm Comment:Testing performed by : [address] [address] Hgb 8.4(L) 13.0 - 17.5 g/dL [place] Comment:Testing performed by : [address] [address] Hct 24.6(L) 38.9 - 50.3 % [facility] Comment:Testing performed by : [address] [address] Plt 356 150 - 400 K/cumm [place] Comment:Testing performed by : [address], [address] MPV 10.1 9.1 - 12.3 fL [place] Comment:Testing performed by : [address], [address] RBC 2.82(L) 4.30 - 5.80 M/cumm [facility] Comment:Testing performed by : [address], [address] MCV 87.2 81.3 - 96.4 fL [place] Comment:Testing performed by : [address] [address] MCH 29.8 27.1 - 33.3 pg [place] Comment:Testing performed by : [address], [address] MCHC 34.1 32.3 - 35.7 g/dL [facility] Comment:Testing performed by : [address], [address] RDW CV 19.9(H) 11.1 - 14.9 % [facility] Comment:Testing performed by : [address] [address] RDW SD 62.7(H) 35.7 - 48.1 fL [facility] Comment:Testing performed by : [address] [address] NRBC abs 0.12(H) 0.00 - 0.01 K/cumm [facility] Comment:Testing performed by : [address] [address] Blood 12/22/2024 12:1 9 PM CDT 12/22/2024 12:23 PM CDT Ang Rick MD LAB BLOOD ORDERABLES Edite d Result - Final Performing Organization Address [facility] de Phone Number [address] [place] [address] * (ABNORMAL) Reticulocyte Count (12/22/2024 12:19 PM CDT) Retics, absolute 415(H) 20 - 87 K/cumm Comment:Testing performed by : [address] [address] Retics 14.7(H) 0.4 - 2.9 % [facility] Comment:Testing performed by : [address] [address] Reticulocyte Hgb 27.9(L) 30.5 - 38.0 pg [facility] Comment:Testing performed by : [address] [address] Blood 12/22/2024 12:1 9 PM CDT 12/22/2024 12:23 PM CDT Ang iRck MD LAB BLOOD ORDERABLES Final Result Performing Organization Address [facility] de Phone Number [address] [address] * (ABNORMAL) Comprehensive metabolic panel (12/22/2024 12:19 PM CDT) Pathologist [facility] Sodium 139 135 - 145 mmol/L Comment:Testing performed by : [address] [address] Potassium, pl 3.5 3.3 - 4.9 mmol/L [facility] Comment:Testing performed by : [address] [address] Chloride 103 97 - 110 mmol/L [facility] Comment:Testing performed by : [address], [place]., [address] CO2 24 22 - 32 mmol/L [facility] Comment:Testing performed by : [address], [place]., [address] Anion gap 12 2 - 15 mmol/L [facility] Comment:Testing performed by : [address], [place]., [address] BUN 3(L) 6 - 25 mg/dL [facility] Comment:Testing performed by : [address], [place]., [address] Creatinine 0.57(L) 0.80 - 1.30 mg/dL [facility] Comment:Testing performed by : [address] [address] Glucose 141 70 - 199 mg/dL [facility] [...] was last revised 2022. Testing performed by: [address] [address] Calcium 9.1 8.5 - 10.3 mg/dL [facility] Comment:Testing performed by : [address] [address] Bilirubin, total 5.4(H) 0.1 - 1.2 mg/dL [facility] Comment:Testing performed by : [address] [address] Protein, pl 7.9 6.5 - 8.5 g/dL [place] Comment:Testing performed by : [address] [address] Albumin 4.4 3.5 - 5.0 g/dL [facility] Comment:Testing performed by : [facility], [address] [place] [address]., [address] Alk phos 391(H) 40 - 130 Units/L [facility] Comment:Testing performed by : [address] [address] ALT 50 7 - 55 Units/L [facility] Comment:Testing performed by : [address] [address] AST 86(H) 10 - 50 Units/L [facility] Comment:Testing performed by : [facility], [address] [place] [address]., [address] Blood 12/22/2024 12:1 9 PM CDT 12/22/2024 12:23 PM CDT us Ang Rick MD LAB BLOOD ORDERABLES Final Result [facility] [address] [facility] [facility] Department [place] [address] * eGFR (12/08/2024 9:50 AM CDT) eGFR >90 >=60 mL/min/1. 73 [...] LAB BLOOD ORDERABLES Final Res ult [facility] [address] [facility] [facility] [place] [address] * (ABNORMAL) Comprehensive metabolic panel (12/08/2024 9:50 AM CDT) Sodium 137 135 - 145 mmol/L Potassium, pl 3.7 3.3 - 4.9 mmol/L [facility] Comment:Hemolyzed; Potassium value may be falsely elevated by as much as 1.0 mmol/L. Suggest redraw and reanalysis. Chloride 101 97 - 110 mmol/L [facility] CO2 24 22 - 32 mmol/L [facility] Anion gap 12 2 - 15 mmol/L [facility] BUN 4(L) 6 - 25 mg/dL [facility] Creatinine 0.53(L) 0.80 - 1.30 mg/dL [facility] Glucose 109 70 - 199 mg/dL [facility] Comment: Interpretive Data Fasting glucose [...] 2022. Calcium 8.8 8.5 - 10.3 mg/dL [facility] Bilirubin, total 3.3(H) 0.1 - 1.2 mg/dL [facility] Protein, pl 7.8 6.5 - 8.5 g/dL [facility] Albumin 3.9 3.5 - 5.0 g/dL [facility] Alk phos 416(H) 40 - 130 Units/L [facility] ALT 35 7 - 55 Units/L [facility] AST 63(H) 10 - 50 Units/L [facility] Comment:Hemolyzed; result ma y be falsely elevated Blood 12/08/2024 9:50 AM CDT 12/08/2024 9:55 AM CDT us Rasta Garcia MD LAB BLOOD ORDERABLES Final Res ult Performing Organization Address [facility] Co de Phone Number [address] [place] [address] * Troponin T high-sensitivity series (baseline, 2hr, 4hr, 6hr) (12/07/2024 9:52 PM CDT) [facility] Trop T hs <6 <=22 ng/L Comment: Interpretive Data For further hscTnT resources including the diagnostic algorithm and an aid in interpretation, copy and paste this link: [email or web address].testcatalog.org/show/[email or web address] Current Interpretive Data last revised 2020. Blood 12/07/2024 9:52 PM CDT 12/07/2024 9:57 PM CDT Guy HO LAB BLOOD ORDERABLES Final R esult Performing Organization Address [facility] de Phone Number [address] [address] * Sepsis Lactate w/ Reflex (12/07/2024 9:52 PM CDT) [facility] Sepsis Lactate 1.5 0.7 - 2.0 mmol/L Blood 12/07/2024 9:52 PM CDT 12/07/2024 9:57 PM CDT Guy HO LAB BLOOD ORDERABLES Final R esult Performing Organization Address [facility] Co de Phone Number [address] [place] [address] * eGFR (12/07/2024 9:52 PM CDT) [facility] eGFR >90 >=60 mL/min/1. 73 m2 [...] MD LAB BLOOD ORDERABLES F inal Result [facility] [address] [facility] Department [place] [address] * (ABNORMAL) CBC with auto differential (12/07/2024 9:52 PM CDT) WBC 15.51(H) 3.80 - 9.90 K/cumm Hgb 8.8(L) 13.0 - 17.5 g/dL [facility] Hct 26.3(L) 38.9 - 50.3 % [facility] Plt 368 150 - 400 K/cumm [facility] MPV 9.7 9.1 - 12.3 fL [facility] RBC 3.04(L) 4.30 - 5.80 M/cumm [facility] MCV 86.5 81.3 - 96.4 fL [facility] MCH 28.9 27.1 - 33.3 pg [facility] MCHC 33.5 32.3 - 35.7 g/dL [facility] RDW CV 18.3(H) 11.1 - 14.9 % [facility] RDW SD 57.4(H) 35.7 - 48.1 fL [facility] NRBC abs 0.05(H) 0.00 - 0.01 K/cumm [facility] Blood 12/07/2024 9:52 PM CDT 12/07/2024 9:57 PM CDT Lala Ace MD LAB BLOOD ORDERABLES Rashaun missy Result - Final [facility] [address] [facility] [facility] Department [place] [address] * (ABNORMAL) Manual Differential (12/07/2024 9:52 PM CDT) Differential Manual Cells Counted 100 [facility] Neutrophil abs 12.10(H) 1.50 - 6.50 K/cumm [facility] Lymphocyte abs 2.64 0.80 - 3.30 K/cumm [facility] Monocyte abs 0.78 0.20 - 0.80 K/cumm [facility] Neutrophil pct 78.0 % [facility] Comment: Interpretive Data Percent cell count reference ranges are not reported, since discordance with absolute values may lead to misinterpretation of CBC data. Current Interpretive Data was last revised on 2017. Lymphocyte pct 17.0 % [facility] Comment: Interpretive Data Percent cell count reference ranges are not reported, since discordance with absolute values may lead to misinterpretation of CBC data. Current Interpretive Data was last revised on 2017. Monocyte pct 5.0 % [facility] Comment: Interpretive Data Percent cell count reference ranges are not reported, since discordance with absolute values may lead to misinterpretation of CBC data. Current Interpretive Data was last revised on 2017. RBC morphology Present(A) [facility] Polychromasia 8-15/HPF(A) [facility] Sickle cells 1-2/HPF(A) [facility] Elliptocytes 8-15/HPF(A) [facility] Platelet estimate Automated Count Confirmed [facility] Giant platelets Present(A) [facility] Blood 12/07/2024 9:52 PM CDT 12/07/2024 9:57 PM CDT Lala Ace MD LAB BLOOD ORDERABLES Fin al Result Performing Organization Address [facility] de Phone Number [address] [address] * (ABNORMAL) Reticulocyte Count (12/07/2024 9:52 PM CDT) [facility] Retics, absolute 237(H) 20 - 87 K/cumm Retics 7.8(H) 0.4 - 2.9 % [facility] Reticulocyte Hgb 35.9 30.5 - 38.0 pg [facility] Blood 12/07/2024 9:52 PM CDT 12/07/2024 9:57 PM CDT Lala Ace MD LAB BLOOD ORDERABLES Fin al Result Performing Organization Address [facility] de Phone Number [address] [address] * (ABNORMAL) Comprehensive metabolic panel (12/07/2024 9:52 PM CDT) [facility] Sodium 137 135 - 145 mmol/L Potassium, pl 3.5 3.3 - 4.9 mmol/L [facility] Chloride 102 97 - 110 mmol/L [facility] CO2 24 22 - 32 mmol/L [facility] Anion gap 11 2 - 15 mmol/L [facility] BUN 4(L) 6 - 25 mg/dL [facility] Creatinine 0.56(L) 0.80 - 1.30 mg/dL [facility] Glucose 114 70 - 199 mg/dL [facility] Comment: Interpretive Data Fasting glucose [...] 2022. Calcium 9.3 8.5 - 10.3 mg/dL [facility] Bilirubin, total 3.1(H) 0.1 - 1.2 mg/dL [facility] Protein, pl 8.8(H) 6.5 - 8.5 g/dL [facility] Albumin 4.5 3.5 - 5.0 g/dL [facility] Alk phos 472(H) 40 - 130 Units/L [facility] ALT 44 7 - 55 Units/L [facility] AST 73(H) 10 - 50 Units/L [facility] Blood 12/07/2024 9:52 PM CDT 12/07/2024 9:57 PM CDT us Nitza Oliver MD LAB BLOOD ORDERABLES F inal Result Performing Organization Address City/State/[facility] Co de Phone Number [facility] [address] [facility] [place] [address] * XR Chest 1 View (12/07/2024 9:35 PM CDT) Anatomical Region Laterality Modality Body, Chest N/A Computed Radiogr aphy 12/07/2024 9:51 PM CDT Narrative 12/07/2024 9:57 PM CDT EXAM DESCRIPTION: XR CHEST 1 VIEW REASON FOR STUDY: chest pain Pt states, I was just at [facility] from October 29 until yesterday when [...] Andrew Stubbs M.D. AR T: Report ID: [id number] Reading Location: [id number] Procedure Note Andrew Stubbs MD - 12/07/2024 [...] Andrew Stubbs M.D. AR T: Report ID: [id number] Reading Location: [id number] Nitza Oliver MD IMG XR PROCEDURES Stephanie l Result * (ABNORMAL) Urinalysis reflex to microscopic and culture Urine (12/07/2024 9:33 PM CDT) Color, ur Yellow Yellow Clarity, ur Clear Clear [facility] Specific gravity, ur 1.011 1.003 - 1.030 [facility] pH, urine 6.5 [facility] Comment: Interpretive Data U rine pH is affected by diet, medications, systemic acid-base disturbances, and renal tubular function. pH may affect urinary stone formation. For example, urine pH below 6.0 may help reduce the tendency for calcium phosphate stones and pH greater than 6.0 may reduce the tendency for uric acid stone formation. Source: [facility] Current Interpretive Data was last revised on 2017 Protein, ur ql Negative Negative [facility] Glucose, ur ql Negative Negative [facility] Ketones, ur Negative Negative [facility] Bilirubin, ur Negative Negative [facility] Blood, ur Negative Negative [facility] Urobilinogen, ur 2.0(A) <2.0 mg/dL [facility] Nitrite, ur Negative Negative [facility] Leukocyte esterase, ur Negative Negative [facility] UA reflex comment Reflex conditions for microscopic UA and culture not met. [facility] Urine 12/07/2024 9:33 PM CDT 12/07/2024 9:41 PM CDT Lala Ace MD LAB MICROBIOLOGY - GENER AL ORDERABLES Final Result [facility] [address] [facility] [place] [address] * ECG 12 lead (12/07/2024 9:21 PM CDT) Ventricular Rate EKG/Min 115 BPM [facility] Atrial Rate 115 BPM [facility] VA-Interval (MSEC) 180 ms [facility] QRS-Interval (MSEC) 82 ms [facility] QT-Interval (MSEC) 328 ms [facility] QTc 453 ms [facility] P Hammond 44 degrees [facility] R Hammond 11 degrees [facility] T Hammond 16 degrees [facility] Diagnosis Sinus tachycardia Otherwise normal ECG When compared with ECG of 05-OCT-2024 05:33, Limb lead reversal corrected Confirmed by NING LEON M.D. ([id number]) on 12/08/2024 8:06:53 PM [facility] 12/07/2024 9:21 PM CDT 12/08/2024 8:06 PM CDT Lala Ace MD ECG ORDERABLES Final Re sult [facility] * Hepatitis C antibody Blood (08/29/2023 9:51 PM CDT) Hep C Ab Nonreactive Nonreactive Comment:Antibodies to HCV no t detected. Does NOT exclude the possibility of recent exposure to HCV. Current interpretive data was last revised on 22 Blood 08/29/2023 9:51 PM CDT 08/29/2023 10:10 PM CDT us Gordo Soliz MD LAB MICROBIOLOGY - GENE RAL ORDERABLES Final Result [facility] Department [place] [address] from Last 3 Months or Most Recently Relevant to Health Maintenance Insurance [facility] Advance Directives For more information, please contact: [phone] * Full Code (Latest Code Status on [...] 1:17 AM 09/23/2024 10:31 PM Care Teams Director Traffic And Planning Relationship Specialty Start Date End Date Laurent Gonzalez MD [address] [place] [address] PCP - General Hematology and Oncology 10/18/23 Ray Sainz MD [address] [facility] [address] [place] [address] 02/10/20 [place] [address] [facility] [address] [place] [address] Consulting Physician Family Medicine 05/05/22 Miscellaneous, Not In File 12/14/22 [place] [id number] [address] [facility] [address] [place] [address] Consulting Physician Orthopedic Surgery 08/18/24
--- OUTSIDE RECORDS SUMMARY | 2025-02-14 19:20 | XMS_ITS | Clinical Summary ---
Author Organization [facility] Address [address] [place] [address] Phone Care Team Providers Care Hot Saw Operator Name Role Phone Unavailable Primary Care Provider [...] mouth daily. Active naloxone (NARCAN) 4 mg/spray [place], Non-Aerosol EMERGENCY USE ONLY: Administer 1 spray [...] 21 Tablet 11/08/2024 6:21 PM CDT Active oxyCODONE-aceta minophen (PERCOCET) 10-325 mg Tablet Take 1 (one) tablet by mouth every 6 hours as needed for Pain 10 Tablet Active Active Problems Problem Noted Date Diagnosed [...] anemia 4 Hypokalemia 01/25/2024 Sickle cell crisis 4 Encounters Date Type Department Care Team Description 01/25/2025 External Device Data [facility] Provider, Abstract 01/19/2025 External Device Data [facility] Provider, Abstract 01/18/2025 External Device Data [facility] Provider, Abstract 01/12/2025 External Device Data [facility] Provider, Abstract 12/29/2024 External Device Data [facility] Provider, Abstract 12/28/2024 External Device Data [facility] Provider, Abstract 12/28/2024 External Device Data [facility] Provider, Abstract 12/23/2024 12:38 AM CDT - 12/23/2024 12:06 PM CDT Emergency [facility] Emergency Department [address] [place] [id number] Thien Narayan MD Sickle cell pain crisis (CMS/HCC) (Primary Dx) Discharge Disposition: Home or Self Care 12/14/2024 External Device Data [facility]STRACTION Provider, Abstract 12/09/2024 8:20 PM CDT - 12/13/2024 11:30 AM CDT Hospital Encounter [facility] Telemetry [address] [place] [address] Guy Lowery MD Abduljaber, MD Marlin Gale, Humberto Elam MD Sickle cell crisis (CMS/HCC) Discharge Disposition: Home or Self Care 12/09/2024 [...] on file 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 Gender Identity Not on file Sexual Orientation [...] (1 - 3-dose SCD M series) 11/06/2023 INFLUENZA VACCINE (#1) 2024 1, 05/03/2009, 05/03/2009 COVID-19 Vaccine (2 - 2024-2 6 season) 2025 01/23/2022 DTAP/TDAP/TD VACCINES (5 - T d or Tdap) 02/09/2030 02/10/2020, 09/27/2009, 12/30/2007, Additional history exists Medical Devices Implanted Type Area Lamination Assembler Device Identifier Shelf Expiration Date Model / Serial / Lot Core Decompression Procedure Kit Pro Dense Implanted:Qty: 1 on 06/30/2022 by Gordo Suazo MD at [facility] Left: Hip [email or web address] [id number] 04/28/2027 [id number] / / [id number] Description:Requisition # [id number]. Procedures Procedure Name Priority Date/Time Associated Diagnosis [...] WITH DIFFERENTIAL Routine 12/10/2024 8:19 AM CDT from Last 3 Months Results * EXTRA TUBE (URINE CONTAINER) (12/23/2024 9:14 AM CDT) Urine URINE SPECIMEN OBTAINED BY CLEAN CATCH PROCEDURE / Unknown Collection / Unknown 12/23/2024 9:14 AM CDT 12/23/2024 9:19 AM CDT us Protocol [facility] Emergency MD URINE ORDERABLES Fin al Result Performing Organization Address City/State/[facility] Co de Phone Number [facility]# [id number] [address] [place] [address] [address] * (ABNORMAL) CBC WITH DIFFERENTIAL (12/23/2024 1:41 AM CDT) Only the most recent of4 resultswithin the time period is included. WBC 10.9(H) 4.0 - 9.8 K/uL 12/23/2024 2:39 AM CDT [facility] NRBCS 1 % 12/23/2024 2:39 AM CDT [facility] RBC 2.86(L) 4.50 - 5.40 M/uL 12/23/2024 2:39 AM CDT [facility] HEMOGLOBIN 8.4(L) 13.6 - 16.5 g/dL 12/23/2024 2:39 AM CDT [facility] HEMATOCRIT 25.2(L) 40.0 - 48.0 % 12/23/2024 2:39 AM CDT [facility] MCV 88.1 82.0 - 99.0 fL 12/23/2024 2:39 AM CDT [facility] MCH 29.4 27.2 - 32.6 pg 12/23/2024 2:39 AM CDT [facility] . [facility] MCHC 33.3 31.5 - 35.5 g/dL 12/23/2024 2:39 AM CDT [facility] RDW 19.3(H) 11.5 - 14.5 % 12/23/2024 2:39 AM CDT [facility] . [facility] RDW-STDEV 62.1(H) 37.1 - 48.7 fL 12/23/2024 2:39 AM CDT [facility] PLATELETS 359(H) 140 - 350 K/uL 12/23/2024 2:39 AM CDT [facility] MPV 10.5 9.3 - 12.4 fL 12/23/2024 2:39 AM CDT [facility] NEUTROPHILS 60 % 12/23/2024 2:39 AM CDT [facility] LYMPHOCYTES 29 % 12/23/2024 2:39 AM CDT [facility] MONOCYTES 10 % 12/23/2024 2:39 AM CDT [facility] EOSINOPHILS 1 % 12/23/2024 2:39 AM CDT [facility] BASOPHILS 1 % 12/23/2024 2:39 AM CDT [facility] IMMATURE GRANULOCYTES 0 % 12/23/2024 2:39 AM CDT [facility] NEUTROPHIL ABSOLUTE 6.56 1.90 - 7.00 K/uL 12/23/2024 2:39 AM CDT [facility] LYMPHOCYTE ABSOLUTE 3.10 0.70 - 4.50 K/uL 12/23/2024 2:39 AM CDT [facility] MONOCYTE ABSOLUTE 1.03 0.10 - 1.30 K/uL 12/23/2024 2:39 AM CDT [facility] EOSINOPHIL ABSOLUTE 0.08 0.00 - 0.70 K/uL 12/23/2024 2:39 AM CDT [facility] BASOPHILS ABSOLUTE 0.05 0.00 - 0.20 K/uL 12/23/2024 2:39 AM CDT [facility] IMMATURE GRANULOCYTES ABSOLUTE 0.03 0.00 - 0.03 K/uL 12/23/2024 2:39 AM CDT [facility] - . [facility] Blood Venipuncture / Unknown 12/23/2024 1:41 AM CDT 12/23/2024 1:47 AM CDT Bk Luke IV, DO HEMATOLOGY ORDERA BLES Final Result [facility] CLIA# [id number] [address] [place] [address] * (ABNORMAL) RETICULOCYTES (12/23/2024 1:41 AM CDT) Only the most recent of2 resultswithin the time period is included. Pathologist [facility] RETICULOCYTES 13.0(H) 0.7 - 2.9 % 12/23/2024 3:04 AM CDT [facility] - . [facility] IMMATURE RETIC FRACTION 37.2(H) 3.0 - 18.0 % 12/23/2024 3:04 AM CDT [facility] - [facility] RETICULOCYTE, ABSOLUTE 0.3656 10e6/uL 12/23/2024 3:04 AM CDT [facility] - . [facility] Comment:Quantitated by dilut ion. Blood Venipuncture / Unknown 12/23/2024 1:41 AM CDT 12/23/2024 1:47 AM CDT Bk Luke IV, DO HEMATOLOGY ORDERA BLES Final Result [facility] CLIA# [id number] [address] [place] [address] * (ABNORMAL) COMPREHENSIVE METABOLIC PANEL (12/23/2024 1:41 AM CDT) Only the most recent of4 resultswithin the time period is included. [facility] SODIUM 136 136 - 145 mmol/L 12/23/2024 2:23 AM [facility] POTASSIUM 3.5 3.5 - 5.0 mmol/L 12/23/2024 2:23 AM [facility] CHLORIDE 102 98 - 107 mmol/L 12/23/2024 2:23 AM [facility] CO2 24 22 - 29 mmol/L 12/23/2024 2:23 AM [facility] [place] CALCIUM 9.2 8.6 - 10.2 mg/dL 12/23/2024 2:23 AM [facility] - . [facility] BUN 3(L) 6 - 20 mg/dL 12/23/2024 2:23 AM [facility] CREATININE 0.49(L) 0.67 - 1.17 mg/dL 12/23/2024 2:23 AM [facility]. [facility] GLUCOSE 101(H) 74 - 99 mg/dL 12/23/2024 2:23 AM [facility] - . [facility] TOTAL PROTEIN 8.0 6.7 - 8.6 g/dL 12/23/2024 2:23 AM [facility]. [facility] ALBUMIN 4.1 3.5 - 5.2 g/dL 12/23/2024 2:23 AM T [facility]. [facility] BILIRUBIN TOTAL 5.7(H) 0.0 - 1.2 mg/dL 12/23/2024 2:23 AM [facility]. [facility] ALKALINE PHOSPHATASE 403(H) 40 - 129 U/L 12/23/2024 2:23 AM [facility]. [facility] AST 78(H) <41 U/L 12/23/2024 2:23 AM [facility]. [facility] ALT 49(H) <42 U/L 12/23/2024 2:23 AM T [facility]. [facility] GFR >60 >=60 mL/min/1.7 3 sq meter 12/23/2024 2:23 AM CDT [facility] Comment:eGFR calculated with 2020 CKD-EPI equation. Vegetarian diet, extremely high or low muscle mass, and may affect results. Cystatin C with Glomerular Filtration Rate is a suitable alternative for these patients. ANION GAP 10 8 - 16 mmol/L 12/23/2024 2:23 AM CDT [facility] Blood Venipuncture / Unknown 12/23/2024 1:41 AM CDT 12/23/2024 1:47 AM CDT Narrative [facility] - 12/23/2024 2:23 AM CDT Samples containing indocyanine green cause interferences on Total and/or Direct Bilirubin and must not be measured. us Bk Luke IV, DO CHEMISTRY ORDERAB LES Final Result [facility]# [id number] [facility] [place] [address] * XR CHEST PA AND LATERAL 2 [...] * EKG 12-LEAD (12/22/2024 6:52 PM CDT) 12/22/2024 6:52 PM CDT Narrative INTERFACE SYSTEM - 12/23/2024 6:03 AM CDT [address] [address] Test Date: 2024-12-22 Pat Name: JOHNNY MYERSLEY Department: 37 Room: Gender: Male Projects Manager: [email or web address] : 1995 Requested By: Order Number: [id number] Reading MD: Jame Hernandez Measurements Intervals [place] Rate: 93 P: 24 KS: 202 QRS: 26 QRSD: 87 T: 24 QT: 379 QTc: 472 Interpretive Statements Sinus rhythm Borderline prolonged KS interval Possible left atrial enlargement Borderline prolonged QT interval Electronically Signed On 12-23-2024 6:03:06 CDT by Jame Hernandez Procedure Note Jame Hernandez MD - 12/23/[address] [address] Test Date: 2024-12-22 Pat Name: JOHNNY SIMON Department: 37 Room: Gender: Male Projects Manager: [email or web address] : 1995 Requested By: Order Number: [id number] Reading MD: Jame Hernandez Measurements Intervals [place] Rate: 93 P: 24 KS: 202 QRS: 26 QRSD: 87 T: 24 QT: 379 QTc: 472 Interpretive Statements Sinus rhythm Borderline prolonged KS interval Possible left atrial enlargement Borderline prolonged QT interval Electronically Signed On 12-23-2024 6:03:06 CDT by Jame Hernandez Thien Narayan MD ECG ORDERABLES Final Result INTERFACE SYSTEM Refer to clinic/hospital department * TELEMETRY REPORT (12/15/2024 12:08 PM CDT) Only the most recent of2 resultswithin the time period is included. Provider Scanning ECG ORDERABLES Final Result * TROPONIN BASELINE, 5TH GEN (12/10/2024 8:19 AM CDT) Pathologist [facility] TROPONIN T, BASELINE 5TH GEN <6 <=15 ng/L 12/10/2024 9:24 AM CDT [facility] [employer] [facility] Blood Venipuncture / Unknown 12/10/2024 8:19 AM CDT 12/10/2024 8:36 AM CDT Narrative [facility] [employer] [facility] - 12/10/2024 9:24 AM CDT Troponin Undetectable Iglesia Rausch PA-C CHEMISTRY ORDERABLES Fin al Result Performing Organization Address [facility] Co de Phone Number [facility] [employer] [facility] CLDE# [id number] [address] [facility] [place] [address] * (ABNORMAL) LACTATE DEHYDROGENASE (12/10/2024 8:19 AM CDT) Pathologist [facility] LD (LACTATE DEHYDROGENASE) 438(H) 135 - 225 U/L 12/10/2024 9:24 AM CDT [facility] Comment:Moderate hemolysis p resent. Can cause significant falsely elevated result. Redraw if indicated. Blood Venipuncture / Unknown 12/10/2024 8:19 AM CDT 12/10/2024 8:36 AM CDT Iglesia Rausch PA-C CHEMISTRY ORDERABLES Fin al Result [facility] [id number] [address] [place] [address] * (ABNORMAL) HAPTOGLOBIN (12/10/2024 8:19 AM CDT) HAPTOGLOBIN <10(L) 30 - 200 mg/dL 12/10/2024 9:42 AM CDT [facility] [employer] [facility] Comment:Hemolysis present. R esult may be falsely decreased. Blood Venipuncture / Unknown 12/10/2024 8:19 AM CDT 12/10/2024 8:34 AM CDT Iglesia Rausch PA-C CHEMISTRY ORDERABLES Fin al Result [facility] [employer] [facility]# [id number] [address] [place] [address] from Last 3 Months Insurance [employer] [facility] MEDICAID RX INFOCROSSING Medicaid RX [employer] PLANS (INTERNAL) [facility] Internal Plans Advance Directives For more information, please contact: [phone] * Full Code (Latest Code Status on [...]
--- OUTSIDE RECORDS SUMMARY | 2025-02-14 19:20 | XMS_ITS | Clinical Summary ---
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 4 Active albuterol sulfate HFA 108 (90 Base) MCG/ACT inhaler Inhale 2 puffs into the lungs every 6 (six) hours as needed for Wheezing or Shortness of breath. Active naloxone (NARCAN) 4 MG/0.1ML nasal spray 1 spray by Nasal route as needed for Opioid reversal. 2 each 5 Active oxyCODONE-aceta minophen (PERCOCET) 10-325 MG tablet Take 1 tablet by mouth every 6 (six) hours as needed for Pain. 5 Active Active Problems Problem Noted Date Diagnosed Date Sickle cell crisis ([facility]) 12/13/2024 Sickle cell anemia ([facility]) 11/09/2024 Sickle cell anemia with crisis ([facility]) 10/29/2024 Sickle cell pain crisis ([facility]) 2024 Encounters Date Type Department Care Team Description 01/29/2025 4:57 PM CDT - 01/29/2025 8:55 PM CDT Emergency [facility] [place] [address] Noe Gross NP Back Pain Discharge Disposition: Home or Self Care (Routine Discharge) 01/29/2025 Travel 01/18/2025 3:27 PM CDT - 01/18/2025 7:53 PM CDT Emergency [facility] [place] [address] Deo Cantrell MD Sickle Cell Pain Discharge Disposition: Home or Self Care (Routine Discharge) 01/18/2025 Travel 12/31/2024 3:41 PM CDT - 12/31/2024 11:27 PM CDT Emergency [facility] [place] [address] Navi Saenz MD Sickle Cell Pain Discharge Disposition: Home or Self Care (Routine Discharge) 12/31/2024 Travel 12/13/2024 2:12 PM CDT - 12/22/2024 11:28 AM CDT [facility] [address] [place] [address] Stephan Galicia MD Romick, Jordan K, MD Wagner, Roy M, DO Sickle Cell Pain Discharge Disposition: Home or Self Care (Routine Discharge) 12/13/2024 Travel 12/10/2024 Hospital Follow-up Call [facility] [place] [address] Renetta Espinoza LPN Follow Up Call (ANJELICA 11/09-12/07/24) 11/16/2024 Travel 11/15/2024 Travel 11/09/2024 12:31 PM CDT - 12/07/2024 4:17 PM CDT [facility] [address] [place] [address] Audra Jovel MD Jumean, Khaled, MD Jerkovich, Adria, MD Simpson, Alina Thao, DO Quintana, MD Charu Ritchie, Palak Thao, GASTON Mcallister, Ivy Goldberg, GASTON Moeller, VIC Yi, MD Veronica Menezes Nelson E, MD Sickle Cell Pain Discharge Disposition: Home or Self Care (Routine Discharge) from Last 3 Months Social History Tobacco Use Types Packs/Day Years Used Date Smoking Tobacco: Never Smokeless Tobacco: Never Tobacco Cessation:Counseling Given: Not Answered Alcohol Use Standard Drinks/Week Comments Never 0 (1 standard drink = 0.6 oz pur e alcohol) [facility] Utilities Answer Date Recorded In the past 12 months has th e electric, gas, oil, or water [employer] threatened to shut off services in your home? No 12/14/2024 Humiliation, Afraid, Rape, and Kick questionnair e Answer Date Recorded Within the last year, have y ou been afraid of your partner or ex-partner? No 12/14/2024 Within the last year, have y ou been humiliated or emotionally abused in other ways by your partner or ex-partner? No Within the last year, have y ou been kicked, hit, slapped, or otherwise physically hurt by your partner or ex-partner? No 12/14/2024 Within the last year, have y ou been raped or forced to have any kind of sexual activity by your partner or ex-partner? No 12/14/2024 Overall Financial Resource Strain (CARDIA) Answe r Date Recorded How hard is it for you to pa y for the very basics like food, housing, medical care, and heating? Hard 12/14/2024 Hunger Vital Sign Answer Date Recorded Within the past 12 months, y ou worried that your food would run out before you got the money to buy more. Sometimes true Within the past 12 months, t he food you bought just didn't last and you didn't have money to get more. Sometimes true PRAPARE - Transportation Answer Date Re corded In the past 12 months, has l ack of transportation kept you from medical appointments or from getting medications? No 11/24 In the past 12 months, has l ack of transportation kept you from meetings, work, or from getting things needed for daily living? No 12/14/2024 Housing Stability Vital Sign Answer Samy e Recorded In the last 12 months, was t here a time when you were not able to pay the mortgage or rent on time? No 12/14/2024 In the past 12 months, how m any times have you moved where you were living? 0 12/14/2024 At any time in the past 12 m [facility], were you homeless or living in a residential (including now)? No 12/14/2024 Sex and Gender Information Value Date Recorded Sex Assigned at Male 09/28/2024 1:28 PM CDT Legal Sex Male 12:45 PM CDT Gender Identity Not on file Sexual Orientation Not on file Last Filed Vital Signs Vital Sign Reading Time Taken Comments Blood Pressure 138/88 01/29/2025 4:51 PM CDT Pulse 97 01/29/2025 4:51 PM CDT Temperature 36.6 C (97.9 F) 01/29/2025 4:51 PM CDT Respiratory Rate 16 01/29/2025 4:51 PM CDT Oxygen Saturation 97% 01/29/2025 4:51 PM CDT Inhaled Oxygen Concentration - - Weight 110.7 kg (244 lb 0.8 oz) 01/29/2025 4:51 PM CDT Height 177.8 cm (5' 10) 01/29/2025 4:51 PM CDT Body Mass Index 35.02 01/29/2025 4:51 PM CDT Plan of Treatment Health Maintenance Due Date Last Done Comments Meningococcal Vaccine (1 - Risk 2-dose series) 1998 Annual Physical 11/06/1999 Meningococcal B Vaccine (1 of 5 - Increased Risk) 2006 Hepatitis C 2014 Hepatitis B Vaccines (1 of 3 - 19+ 3-dose series) 11/06/2015 Pneumococcal Vaccine: Pediatrics (0 to 5 Years) and At-Risk Patients (6 to 49 Years) (1 of 2 - PCV) 11/06/2015 HPV Vaccines (1 - 3-dose SCDM series) 11/06/2023 COVID-19 Vaccine (2 - season) 2025 01/23/2022 DTaP, Tdap and Td Vaccines (5 - Td or Tdap) 02/09/2030 02/10/2020, 09/27/2009, 12/30/2007, Additional history exists RSV Immunizations Under 20 Months Aged Out No longer eligible based on patient's age to complete this topic Goals Goal Patient Goal Type Associated Problems Recent Progress Patient-Stated? Author Health - patient able to perform ADLs independently Lifestyle No Travis Vo i RN Patient will return to prior living situation and remain independent in ADLs upon discharge from hospital Lifestyle No Yaneth Adam RN Procedures Procedure Name Priority Date/Time Associated Diagnosis Comments HC URINALYSIS AUTO W/O MICRO STAT 01/29/2025 6:37 PM CDT XR LUMB SPINE 3V STAT 01/29/2025 5:[address], AUTO STAT 01/29/2025 5:05 PM CDT COMPREHENSIVE METABOLIC PANEL STAT 01/29/2025 5:05 PM CDT CBC W/DIFF AUTOMATED STAT 01/29/2025 5:05 PM CDT ELECTROCARDIOGRAM REPORT Routine 025 4:52 PM CDT ECG 12-LEAD STAT 01/18/2025 4:46 PM CDT XR CHEST PORTABLE STAT 01/18/2025 4:3 9 PM CDT TROPONIN, QUANT STAT 01/18/2025 3:[address], AUTO STAT 01/18/2025 3:46 PM CDT CBC W/DIFF AUTOMATED STAT 01/18/2025 3:46 PM CDT COMPREHENSIVE METABOLIC PANEL STAT 01/18/2025 3:[address], AUTO STAT 12/31/2024 5:07 PM CDT CBC W/DIFF AUTOMATED STAT 12/31/2024 5:07 PM CDT TROPONIN, QUANT STAT 12/31/2024 4:32 PM CDT COMPREHENSIVE METABOLIC PANEL STAT 12/31/2024 4:32 PM CDT XR CHEST PORTABLE STAT 12/31/2024 4:2 2 PM CDT ECG 12-LEAD STAT 12/31/2024 3:39 PM CDT COMPREHENSIVE METABOLIC PANEL Routine 12/22/2024 8:40 AM CDT CBC W/DIFF AUTOMATED Routine 12/22/2024 8:[address], AUTO Routine 12/22/2024 8:[address], AUTO Routine 12/19/2024 4:37 AM CDT COMPREHENSIVE METABOLIC PANEL Routine 12/19/2024 4:37 AM CDT CBC W/DIFF AUTOMATED Routine 12/19/2024 4:[address], AUTO Routine 12/18/2024 6:12 AM CDT COMPREHENSIVE METABOLIC PANEL Routine 12/18/2024 6:12 AM CDT CBC W/DIFF AUTOMATED Routine 12/18/2024 6:12 AM CDT CBC W/DIFF AUTOMATED Routine 12/17/2024 4:33 PM CDT COMPREHENSIVE METABOLIC PANEL Routine 12/17/2024 7:04 AM CDT MAGNESIUM Routine 12/16/2024 6:36 AM CDT COMPREHENSIVE METABOLIC PANEL Routine 12/16/2024 6:36 AM CDT CBC W/DIFF AUTOMATED Routine 12/16/2024 6:[address], AUTO Routine 12/16/2024 6:[address] CHEST W CON Today 12/14/2024 9:13 PM CDT COMPREHENSIVE METABOLIC PANEL STAT 12/14/2024 6:22 AM CDT CBC W/DIFF AUTOMATED STAT 12/14/2024 6:[address], AUTO STAT 12/14/2024 6:[address], AUTO STAT 12/13/2024 2:48 PM CDT TROPONIN, QUANT STAT 12/13/2024 2:48 PM CDT COMPREHENSIVE METABOLIC PANEL STAT 12/13/2024 2:48 PM CDT CBC W/DIFF AUTOMATED STAT 12/13/2024 2:48 PM CDT ECG 12-LEAD Routine 12/13/2024 2:23 PM CDT XR CHEST PA+LAT STAT 12/13/2024 2:12 PM CDT CBC W/DIFF AUTOMATED Routine 12/07/2024 5:[address], AUTO Routine 12/07/2024 5:06 AM CDT HEMOGLOBIN AND HEMATOCRIT Routine 2024 2:34 PM CDT CBC W/DIFF AUTOMATED Routine 12/06/2024 5:[address], AUTO Routine 12/06/2024 5:01 AM CDT COMPREHENSIVE METABOLIC PANEL STAT 12/05/2024 8:06 AM CDT CBC W/DIFF AUTOMATED STAT 12/05/2024 8:[address], AUTO Routine 12/05/2024 5:50 AM CDT XR SHOULDER RT MIN 2V Today 12/04/2024 4:[address], AUTO Routine 12/04/2024 6:45 AM CDT COMPREHENSIVE METABOLIC PANEL Routine 12/04/2024 6:45 AM CDT CBC W/DIFF AUTOMATED Routine 12/04/2024 6:[address], AUTO Routine 12/02/2024 9:25 AM CDT COMPREHENSIVE METABOLIC PANEL Routine 12/02/2024 9:25 AM CDT CBC W/DIFF AUTOMATED Routine 12/02/2024 9:25 AM CDT COMPREHENSIVE METABOLIC PANEL STAT 12/01/2024 1:15 PM CDT CBC W/DIFF AUTOMATED STAT 12/01/2024 1:[address], AUTO Routine 11/29/2024 6:00 AM CDT CBC W/DIFF AUTOMATED Routine 11/29/2024 6:00 AM CDT BASIC METABOLIC PANEL Routine 11/29/2024 6:[address], AUTO Routine 11/28/2024 4:00 AM CDT CBC W/DIFF AUTOMATED Routine 11/28/2024 4:00 AM CDT BASIC METABOLIC PANEL Routine 11/28/2024 4:[address] HEAD WO CON Today 11/27/2024 5:[address] FACIAL BONES WO CON Today 5:46 PM CDT XR CHEST PORTABLE Today 11/27/2024 8:5 [address], AUTO Routine 11/27/2024 8:45 AM CDT LDH, LACTATE DEHYDROGENASE Routine 11/27/2024 8:45 AM CDT HAPTOGLOBIN, QUANT Routine 11/27/2024 8: 45 AM CDT CBC W/DIFF AUTOMATED Routine 11/27/2024 8:45 AM CDT BASIC METABOLIC PANEL Routine 11/27/2024 8:[address], AUTO Routine 11/26/2024 3:45 AM CDT CBC W/DIFF AUTOMATED Routine 11/26/2024 3:45 AM CDT BASIC METABOLIC PANEL Routine 11/26/2024 3:[address], AUTO Routine 11/25/2024 9:20 AM CDT CBC W/DIFF AUTOMATED Routine 11/25/2024 9:20 AM CDT BASIC METABOLIC PANEL Routine 11/25/2024 9:20 AM CDT CBC W/DIFF AUTOMATED Routine 11/24/2024 11:33 AM CDT BASIC METABOLIC PANEL Routine 11/24/2024 11:[address], AUTO Routine 11/23/2024 9:20 AM CDT CBC W/DIFF AUTOMATED Routine 11/23/2024 9:20 AM CDT BASIC METABOLIC PANEL Routine 11/23/2024 9:[address], AUTO Routine 11/22/2024 9:30 AM CDT BASIC METABOLIC PANEL Routine 11/22/2024 9:30 AM CDT CBC W/DIFF AUTOMATED Routine 11/22/2024 9:[address], AUTO Routine 11/21/2024 5:54 AM CDT BASIC METABOLIC PANEL Routine 11/21/2024 5:54 AM CDT CBC W/DIFF AUTOMATED Routine 11/21/2024 5:54 [address] CD[address], AUTO Routine 11/20/2024 7:09 AM CDT CBC W/DIFF AUTOMATED Routine 11/20/2024 7:09 AM CDT BASIC METABOLIC PANEL Routine 11/20/2024 7:[address], AUTO Routine 11/19/2024 3:58 AM CDT CBC W/DIFF AUTOMATED Routine 11/19/2024 3:58 AM CDT BASIC METABOLIC PANEL Routine 11/19/2024 3:58 AM CDT BASIC METABOLIC PANEL Routine 11/18/2024 3:[address], AUTO Routine 11/18/2024 9:23 AM CDT CBC W/DIFF AUTOMATED Routine 11/18/2024 9:23 AM CDT BASIC METABOLIC PANEL Routine 11/18/2024 9:23 AM CDT HC BILIRUBIN DIRECT Routine 11/17/2024 4 :47 AM CDT HAPTOGLOBIN, QUANT Routine 11/17/2024 4: 47 AM CDT LDH, LACTATE DEHYDROGENASE Routine 11/17/2024 4:[address], AUTO Routine 11/17/2024 4:47 AM CDT MAGNESIUM Routine 11/17/2024 4:47 AM CDT BASIC METABOLIC PANEL Routine 11/17/2024 4:47 AM CDT CBC W/DIFF AUTOMATED Routine 11/17/2024 4:47 AM CDT ECG 12-LEAD Routine 11/16/2024 10:22 PM CDT IRON SAT PANEL (IRON,IBC,%SAT) Routine 11/16/2024 6:52 AM CDT FERRITIN Routine 11/16/2024 6:[address], AUTO Routine 11/16/2024 6:52 AM CDT MAGNESIUM Routine 11/16/2024 6:52 AM CDT BASIC METABOLIC PANEL Routine 11/16/2024 6:52 AM CDT CBC W/DIFF AUTOMATED Routine 11/16/2024 6:52 AM CDT ECG 12-LEAD Routine 11/15/2024 8:39 PM CDT CBC W/DIFF AUTOMATED STAT 11/15/2024 8:13 PM CDT TROPONIN, QUANT Routine 11/15/2024 8:13 PM CDT XR CHEST PORTABLE STAT 11/15/2024 8:0 1 PM CDT POTASSIUM, SERUM STAT 11/15/2024 5:[address], AUTO Routine 11/15/2024 5:02 AM CDT COMPREHENSIVE METABOLIC PANEL Routine 11/15/2024 5:02 AM CDT CBC W/DIFF AUTOMATED Routine 11/15/2024 5:02 AM CDT COMPREHENSIVE METABOLIC PANEL Routine 11/14/2024 6:18 AM CDT CBC W/DIFF AUTOMATED Routine 11/14/2024 6:18 AM CDT from Last 3 Months Results * (ABNORMAL) URINALYSIS (01/29/2025 6:37 PM CDT) SPECIMEN TYPE URINE CLEAN CATCH 01/29/2025 6:43 PM CDT [facility] COLOR (U) YELLOW 01/29/2025 7:00 PM CDT [facility] TRANSPARENCY CLEAR 01/29/2025 7:00 PM CDT [facility] SPECIFIC GRAVITY (U) 1.011 1.001 - 1.030 01/29/2025 7:00 PM CDT [facility] U PH 6.0 5.0 - 9.0 01/29/2025 7:00 PM CDT [facility] LEUKOCYTES (U) NEGATIVE NEGATIVE 01/29/2025 7:00 PM CDT [facility] NITRITES NEGATIVE NEGATIVE 01/29/2025 7:00 PM CDT [facility] PROTEIN RANDOM (U) NEGATIVE <30 MG/DL 01/29/2025 7:00 PM CDT [facility] GLUCOSE (U) NORMAL NORMAL MG/DL 01/29/2025 7:00 PM CDT [facility] KETONES MG/DL (U) NEGATIVE NEGATIVE MG/DL 01/29/2025 7:00 PM CDT [facility] UROBILINOGEN 2.0(A) NORMAL MG/DL 01/29/2025 7:00 PM CDT [facility] BILIRUBIN (U) NEGATIVE NEGATIVE MG/DL 01/29/2025 7:00 PM CDT [facility] BLOOD (U) NEGATIVE NEGATIVE 01/29/2025 7:00 PM CDT [facility] URINE SPECIMEN OBTAINED BY CLEAN CATCH PROCEDURE / Unknown 01/29/2025 6:37 PM CDT us Noe Gross IRB COMPLIANCE COORDINATOR URINE ORDERABLES Final Result [facility] [address] [place] [address], * XR LUMB SPINE 3V (01/29/2025 5:58 PM CDT) Anatomical Region Laterality Modality Spine Radiographic Mireya ging 01/29/2025 6:11 PM CDT Impressions 01/29/2025 7:28 PM CDT IMPRESSION: 1. No acute osseous abnormality. 2. Osseous stigmata of sickle cell disease. 3. Heterogeneous sclerosis of the pelvis and sacrum, possibly also related to osseous infarcts as a sequela of sickle cell disease, similar to CT 10/30/2024. Preliminary: Roland Oliva DO01/29/2025 6:15 PM The attending radiologist has reviewed the image(s) and agrees with the content of this report. Ordered By: NOE GROSS Interpreted By: Roland Oliva DO, 01/29/2025 6:11 PM Narrative 01/29/2025 7:28 PM [address] [address] Examination: XR LUMB SPINE 3V Exam time: 01/29/2025 5:12 PM Clinical history: Low back pain onset 3 days ago. History of sickle cell disease Comparison: Chest radiograph 01/18/2025. CT chest, abdomen, and pelvis 10/30/2024. Technique: 3 views of the lumbar spine. Findings: There are 5 nonrib-bearing lumbar-type vertebral bodies. There are chronic appearing superior and inferior endplate changes with an H shaped configuration in keeping with history of sickle cell. There is normal alignment of the anterior and posterior elements. Facet alignment is maintained. Intervertebral disc spaces are relatively preserved. No definite acute displaced fractures identified in the lumbar spine. There is curvilinear sclerosis within the left femoral head suggestive of osteonecrosis. Somewhat heterogeneous sclerosis of the pelvis and sacrum, similar to CT 10/30/2024. Cholecystectomy clips are noted. Procedure Note Hilton Watkins MD - 01/29/[address] [address] Examination: XR LUMB SPINE 3V Exam time: 01/29/2025 5:12 PM Clinical history: Low back pain onset 3 days ago. History of sickle celldisease Comparison: Chest radiograph 01/18/2025. CT chest, abdomen, and pelvis10/30/2024. Technique: 3 views of the lumbar spine. Findings: There are 5 nonrib-bearing lumbar-type vertebral bodies. There are chronicappearing superior and inferior endplate changes with an H shapedconfiguration in keeping with history of sickle cell. There is normalalignment of the anterior and posterior elements. Facet alignment ismaintained. Intervertebral disc spaces are relatively preserved. Nodefinite acute displaced fractures identified in the lumbar spine. Thereis curvilinear sclerosis within the left femoral head suggestive ofosteonecrosis. Somewhat heterogeneous sclerosis of the pelvis and sacrum,similar to CT 10/30/2024. Cholecystectomy clips are noted. IMPRESSION: 1. No acute osseous abnormality. 2. Osseous stigmata of sickle cell disease. 3. Heterogeneous sclerosis of the pelvis and sacrum, possibly also relatedto osseous infarcts as a sequela of sickle cell disease, similar to CT10/30/2024. Preliminary: Roland Oliva DO01/29/2025 6:15 PM The attending radiologist has reviewed the image(s) and agrees with thecontent of this report. Ordered By: NOE GROSS Interpreted By: Roland Oliva DO, 01/29/2025 6:11 PM us Noe Gross IRB COMPLIANCE COORDINATOR GENERAL IMAGING Final Result * (ABNORMAL) RETICULOCYTE CT, AUTO (01/29/2025 5:05 PM CDT) Only the most recent of28 resultswithin the time period is included. RETICULOCYTE COUNT 14.7(H) 0.8 - 2.1 % 01/29/2025 5:50 PM CDT [facility] Comment:Verified by dilution . ABSOLUTE RETICULOCYTE 0.40(H) 0.03 - 0.11 x10'6/uL 01/29/2025 5:50 PM CDT [facility] IMMATURE RETIC FRACTION 41.6(H) 2.3 - 13.4 % 01/29/2025 5:50 PM CDT [facility] RETIC HGB 31.0 28.0 - 35.0 PG 01/29/2025 5:50 PM CDT [facility] 01/29/2025 5:05 PM CDT us Noe Gross NP LABORATORY Final Result [facility] [address] [place] [address], [place] [phone] * (ABNORMAL) COMPREHENSIVE METABOLIC PANEL (01/29/2025 5:05 PM CDT) Only the most recent of16 resultswithin the time period is included. GLUCOSE 135(H) 70 - 99 MG/DL 01/29/2025 5:55 PM CDT [facility] BUN 2(L) 7 - 18 MG/DL 01/29/2025 5:55 PM CDT [facility] CREATININE S/P/B 0.54(L) 0.7 - 1.3 MG/DL 01/29/2025 5:55 PM CDT [facility] SODIUM S/P/B 139 136 - 145 MMOL/L 01/29/2025 5:55 PM CDT [facility] POTASSIUM S/P/B 3.5 3.5 - 5.1 MMOL/L 01/29/2025 5:55 PM CDT [facility] CHLORIDE S/P/B 110 97 - 115 MMOL/L 01/29/2025 5:55 PM CDT [facility] CO2 23.6 21 - 32 MMOL/L 01/29/2025 5:55 PM CDT [facility] CALCIUM S/P/B 8.7 8.5 - 10.1 MG/DL 01/29/2025 5:55 PM CDT [facility] BILIRUBIN TOTAL S/P/B 5.4(H) 0.2 - 1.2 MG/DL 01/29/2025 5:55 PM CDT [facility] Comment: THIS ASSAY IS NOT RECOMMENDED FOR PATIENTS UNDERGOING TREATMENT WITH ELTROMBOPAG DUE TO THE POTENTIAL FOR FALSELY ELEVATED RESULTS. TOTAL PROTEIN S/P/B 8.1 6.4 - 8.2 G/DL 01/29/2025 5:55 PM CDT [facility] ALBUMIN S/P/B 3.7 3.4 - 5.0 G/DL 01/29/2025 5:55 PM CDT [facility] AST 59(H) 15 - 37 U/L 01/29/2025 5:55 PM CDT [facility] ALT 31 16 - 60 U/L 01/29/2025 5:55 PM CDT [facility] ALKALINE PHOSPHATASE S/P/B 307(H) 50 - 136 U/L 01/29/2025 5:55 PM CDT [facility] ANION GAP 5.4 2 - 10 MMOL/L 01/29/2025 5:55 PM CDT [facility] BUN CREATININE RATIO 3.7(L) 6 - 26 01/29/2025 5:55 PM T [facility] A/G RATIO 0.8(L) 1.0 - 2.0 RATIO 01/29/2025 5:55 PM T [facility] GFR ESTIMATE >90 >90 ML/MIN/1.7 3 M2 01/29/2025 5:55 PM T [facility] Comment: NOTE: eGFR is not calculated for patients <18 years of age or gender unknown. This is an estimated GFR calculation using the new CKD EPI creatinine equation without race and so does not require a correction factor for race. This estimated GFR should not be used for calculating drug doses. 01/29/2025 5:05 PM CDT us Noe Gross NP LABORATORY Final Result [facility] [address] [place] [address], [place] [phone] * (ABNORMAL) CBC W/DIFF AUTOMATED (01/29/2025 5:05 PM CDT) Only the most recent of33 resultswithin the time period is included. [facility] Signature WBC 11.82(H) 4.5 - 11.0 x10'3/uL 01/29/2025 5:50 PM CDT [facility] RBC 2.74(L) 4.70 - 6.10 x10'6/uL 01/29/2025 5:50 PM CDT [facility] HGB 8.4(L) 14.0 - 18.0 G/DL 01/29/2025 5:50 PM CDT [facility] HCT 24.0(L) 43.0 - 54.0 % 01/29/2025 5:50 PM CDT [facility] MCV 87.6 80.0 - 94.0 FL 01/29/2025 5:50 PM CDT [facility] MCH 30.7 27.0 - 31.0 PG 01/29/2025 5:50 PM CDT [facility] MCHC 35.0 32.0 - 36.0 G/DL 01/29/2025 5:50 PM CDT [facility] RDW 23.0(H) 11.5 - 14.5 % 01/29/2025 5:50 PM CDT [facility] PLT 300 130 - 400 x10'3/uL 01/29/2025 5:50 PM CDT [facility] MPV 10.2 9.3 - 12.2 FL 01/29/2025 5:50 PM CDT [facility] DIFFERENTIAL TYPE MANUAL DIFFERENTIAL 01/29/2025 6:06 PM CDT [facility] SEG NEUTROPHILS 59 % 6:06 PM CDT [facility] LYMPHOCYTES 27 % 01/29/2025 6:06 PM CDT [facility] ATYP. LYMPHS 1 % 01/29/2025 6:06 PM CDT [facility] MONOCYTES 9 % 01/29/2025 6:06 PM CDT [facility] EOSINOPHILS 2 % 01/29/2025 6:06 PM CDT [facility] BASOPHILS 1 % 01/29/2025 6:06 PM CDT [facility] MYELOCYTES 1 % 01/29/2025 6:06 PM CDT [facility] NRBC 2(H) 0 /100 WBC 01/29/2025 6:06 PM CDT [facility] ABS. NEUTROPHILS 6.97 1.80 - 7.70 x10'3/uL 01/29/2025 6:06 PM CDT [facility] ABS. LYMPHOCYTES 3.31 1.00 - 4.80 x10'3/uL 01/29/2025 6:06 PM CDT [facility] ABS. MONOCYTES 1.06(H) 0.30 - 0.82 x10'3/uL 01/29/2025 6:06 PM CDT [facility] ABS. EOSINOPHILS 0.24 0.04 - 0.54 x10'3/uL 01/29/2025 6:06 PM CDT [facility] ABS. BASOPHILS 0.12(H) 0.01 - 0.08 x10'3/uL 01/29/2025 6:06 PM CDT [facility] ABS. MYELOCYTES 0.12(H) 0.00 x10'3/uL 01/29/2025 6:06 PM CDT [facility] ABS. NUCLEATED RBC'S 0.24(H) 0.00 - 0.01 x10'3/uL 01/29/2025 6:06 PM CDT [facility] RBC MORPHOLOGY SLIDE REVIEWED 2024 6:06 PM CDT [facility] ANISO 2+ 01/29/2025 6:06 PM CDT [facility] POIKLO 1+ 01/29/2025 6:06 PM CDT [facility] TARGET CELLS 1+ 01/29/2025 6:06 PM CDT [facility] SICKLE CELL 1+ 01/29/2025 6:06 PM CDT [facility] PLT EST. ADEQUATE 01/29/2025 6:06 PM CDT [facility] 01/29/2025 5:05 PM CDT us Noe Gross NP LABORATORY Final Result [facility] [address] [place] [address], * EKG Reading (01/18/2025 4:52 PM CDT) Narrative Deo Cantrell MD - 01/18/2025 4:52 PM CDT Deo Cantrell MD 01/18/2025 7:49 PM EKG Reading Date/Time: 01/18/2025 4:52 PM Performed by: Deo Cantrell MD Authorized by: Deo Cantrell MD Interpreted by ED physician Comparison: compared with previous ECG from 12/31/2024 Rhythm: sinus rhythm Rate: normal BPM: 95 Comments: Normal sinus rhythm. Heart rate 95. Normal axis Norval normal QRS nonspecific ST-T wave changes. Compared to EKG 12/31/2024 Rhythm strip ordered interpreted 1643 Normal sinus rhythm. Heart rate 95. No ectopy us Deo Cantrell MD [facility] Final Result * ECG 12 lead (01/18/2025 4:46 PM CDT) Only the most recent of5 resultswithin the time period is included. 01/18/2025 4:46 PM CDT Narrative [facility] ([facility] RAD - 01/19/2025 6:[address] 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1995 Requested By: VIPUL MURCIA Order Number: [id number] Reading : Humberto Blake Measurements Intervals [place] Rate: 95 P: 4 HI: 184 QRS: 39 QRSD: 90 T: 29 QT: 366 QTc: 461 Interpretive Statements SINUS RHYTHM WITH SINUS ARRHYTHMIA NONSPECIFIC T-WAVE ABNORMALITY Compared to ECG 12/31/2024 15:39:50 Sinus tachycardia no longer present T-wave abnormality still present us Vipul O Murcia [facility] [employer] ECG ORDERABLES Final Result [facility] ([facility] RAD * XR CHEST PORTABLE (01/18/2025 4:39 PM CDT) Only the most recent of4 resultswithin the time period is included. Anatomical Region Laterality Modality Chest Radiographic Mireya ging 01/18/2025 4:40 PM CDT Impressions 01/18/2025 4:41 PM CDT IMPRESSION: No definitive radiographic evidence of active chest disease. Ordered By: DEO CANTRELL Interpreted By: Emory Beyer MD, 01/18/2025 4:40 PM Narrative 01/18/2025 4:41 PM CDT [place] [address] Examination: XR CHEST PORTABLE Exam time: 01/18/2025 [...] definitive radiographic evidence of active chest disease. Procedure Note Emory Beyer MD - 01/18/[address] [address] Examination: XR CHEST PORTABLE Exam time: 01/18/2025 4:24 PM Clinical history: Chest pain. Sickle cell disease. Comparison: 12/31/2024 AP view Technique: AP upright view Findings: Mild rotation to the left. Cardiac silhouette within normallimits. Stable slight prominence central pulmonary vasculature. Noevidence of focal atelectasis or consolidation. No evidence of pleuraleffusion. Increased density superior aspect right humeral head appearsstable and may represent avascular necrosis. Overall, no definitiveradiographic evidence of active chest disease. IMPRESSION: No definitive radiographic evidence of active chest disease. Ordered By: DEO CANTRELL Interpreted By: Emory Beyer MD, 01/18/2025 4:40 PM Deo Cantrell MD GENERAL IMAGING Final Result * TROPONIN, QUANT (01/18/2025 3:46 PM CDT) Only the most recent of4 resultswithin the time period is included. TROPONIN I HIGH SENSITIVITY 7 <79 ng/L 01/18/2025 6:01 PM CDT [facility] Comment: HIGH DOSES OF BIOTIN, TROPONIN-SPECIFIC AUTOANTIBODIES, AND ANTIBODY THERAPY CONTAINING HAMA MAY INTERFERE WITH THIS TEST RESULT. CORRELATION TO CLINICAL HISTORY AND PRESENTATION RECOMMENDED. 01/18/2025 3:46 PM CDT Vipul Murcia APRN LABORATORY Final Result [facility] [address] [place] [address], * MAGNESIUM (12/16/2024 6:36 AM CDT) Only the most recent of3 resultswithin the time period is included. MAGNESIUM 2.1 1.8 - 2.4 MG/DL 12/16/2024 12:30 PM CDT [facility] 12/16/2024 6:36 AM CDT Brenden Steel DO LABORATORY Final Result [facility] [address] [place] [address], * CT CHEST W CON (12/14/2024 9:13 PM CDT) Anatomical Region Laterality Modality Chest Computed Tomogra phy 12/15/2024 12:5 5 AM CDT Impressions 12/15/2024 1:01 AM CDT Impression: 1. No acute cardiopulmonary abnormalities. 2. Mild bilateral dependent atelectasis. 3. Additional chronic findings as above. Referred By: Interpreted By: Ryley Lane MD, 12/15/2024 12:55 AM Narrative 12/15/2024 1:01 AM CDT [place] [address] Examination: CT chest with IV contrast. Clinical Information: Chest pain. History of sickle cell disease. Comparison: CT chest 11/11/2024 Technique: IV contrast: 75 mL of Isovue-370. Oral contrast: None. Technical comments: Standard technique. Dose reduction: This CT exam was performed using one or more of the following dose reduction techniques: Automated exposure control, adjustment of the mA and/or kV according to patient size, and/or use of iterative reconstruction technique. Findings: MEDIASTINUM Support tubes and lines: None. Base of neck/thyroid: Negative. Heart: Normal in size. No pericardial effusion. Lymph nodes: No supraclavicular, axillary, internal mammary, mediastinal, or hilar adenopathy. VASCULATURE Thoracic aorta and pulmonary arteries are unremarkable. LUNGS AND PLEURA Lungs: Mild bilateral dependent atelectasis. No focal consolidation. Pleura: No pleural effusion, thickening, or calcification. UPPER ABDOMEN Cholecystectomy. The spleen is absent. BONES/SOFT TISSUES Redemonstrated H shaped vertebra compatible with history of sickle cell disease. Procedure Note Ryley Lane DO - 12/15/2024 [place] [id number] Examination: CT chest with IV contrast. Clinical Information: Chest pain. History of sickle cell disease. Comparison: CT chest 11/11/2024 Technique: IV contrast: 75 mL of Isovue-370. Oral contrast: None. Technical comments: Standard technique. Dose reduction: This CT exam was performed using one or more of thefollowing dose reduction techniques: Automated exposure control,adjustment of the mA and/or kV according to patient size, and/or use ofiterative reconstruction technique. Findings: MEDIASTINUM Support tubes and lines: None. Base of neck/thyroid: Negative. Heart: Normal in size. No pericardial effusion. Lymph nodes: No supraclavicular, axillary, internal mammary, mediastinal,or hilar adenopathy. VASCULATURE Thoracic aorta and pulmonary arteries are unremarkable. LUNGS AND PLEURA Lungs: Mild bilateral dependent atelectasis. No focal consolidation. Pleura: No pleural effusion, thickening, or calcification. UPPER ABDOMEN Cholecystectomy. The spleen is absent. BONES/SOFT TISSUES Redemonstrated H shaped vertebra compatible with history of sickle celldisease. Impression: 1. No acute cardiopulmonary abnormalities. 2. Mild bilateral dependent atelectasis. 3. Additional chronic findings as above. Referred By: Interpreted By: Ryley Lane MD, 12/15/2024 12:55 AM Saeid Strange MD CT Final Result * XR CHEST PA+LAT (12/13/2024 2:12 PM CDT) Anatomical Region Laterality Modality Chest Radiographic Mireya ging 12/13/2024 2:15 PM CDT Impressions 12/13/2024 2:18 PM CDT Impression: No acute findings. Referred By: Interpreted By: Jose Tran MD, 12/13/2024 2:15 PM Narrative 12/13/2024 2:18 PM CDT [facility] [address] [place], [place] [address] Examination: Chest 2 View History: Chest pain, sickle cell anemia DATE/TIME: 12/13/2024 2:02 PM Comparison: November 27, 2024 Technique: PA and lateral views were obtained. Findings: Heart size, mediastinal contours and pulmonary vasculature are within normal limits. No pulmonary consolidation, pleural effusion or pneumothorax. No acute osseous abnormality. Procedure Note Jose Tran MD - 12/13/2024 [facility] [address] [place], [place] [address] Examination: Chest 2 View History: Chest pain, sickle cell anemia DATE/TIME: 12/13/2024 2:02 PM Comparison: November 27, 2024 Technique: PA and lateral views were obtained. Findings: Heart size, mediastinal contours and pulmonary vasculature arewithin normal limits. No pulmonary consolidation, pleural effusion orpneumothorax. No acute osseous abnormality. Impression: No acute findings. Referred By: Interpreted By: Jose Tran MD, 12/13/2024 2:15 PM Julianne HO GENERAL IMAGING Final Resul t * (ABNORMAL) HEMOGLOBIN AND HEMATOCRIT (12/06/2024 2:34 PM CDT) HGB 8.0(L) 14.0 - 18.0 G/DL 12/06/2024 3:43 PM CDT [facility] HCT 24.6(L) 43.0 - 54.0 % 12/06/2024 3:43 PM CDT [facility] 12/06/2024 2:34 PM CDT us Anival Lacey DO LABORATORY Final Resul t [facility] [address] [place] [address], [place] [phone] * XR SHOULDER RT MIN 2V (12/04/2024 4:18 PM CDT) Anatomical Region Laterality Modality Shoulder Radiographic Mireya ging 12/04/2024 4:17 PM CDT Impressions 12/04/2024 4:20 PM CDT IMPRESSION: 1) Abnormal study again demonstrating 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 Ordered By: SANA MARTIN Interpreted By: Robert Vera MD, 12/04/2024 4:17 PM Narrative 12/04/2024 4:20 PM [address] [address] Examination: XR SHOULDER RT MIN 2V Exam [...] underlying chronic right humeral head AVN. There is no evidence of acute fracture. No focal lytic bone destructive lesion. The glenohumeral joint and the AC joint are unremarkable. Procedure Note Robert Vera MD - 12/04/[address] [address] Examination: XR SHOULDER RT MIN 2V Exam time: 12/04/2024 3:57 PM Clinical history: Worsening chronic right shoulder pain, history of sicklecell disease. Comparison: Chest 11/01/2024 Technique: AP internal/external rotation views of the right shoulderobtained along with transscapular view. Findings: There is limited visualization of the osseous structuressecondary to patient size. Ill-defined abnormal mixed lucent and scleroticchange is noted involving the humeral head. This was present on theprevious CT of 11/01/2024 and is suspicious for underlying chronic righthumeral head AVN. There is no evidence of acute fracture. No focal lyticbone destructive lesion. The glenohumeral joint and the AC joint areunremarkable. IMPRESSION: 1) Abnormal study again demonstrating findings suggesting chronic righthumeral head AVN similar to previous CT. Ordered By: SANA MARTIN Interpreted By: Robert Vera MD, 12/04/2024 4:17 PM us Sana Martin MD GENERAL IMAGING Final Result * (ABNORMAL) BASIC METABOLIC PANEL (11/29/2024 6:00 AM CDT) Only the most recent of15 resultswithin the time period is included. GLUCOSE 117(H) 70 - 99 MG/DL 11/29/2024 6:38 AM CDT [facility] BUN 3(L) 7 - 18 MG/DL 11/29/2024 6:38 AM CDT [facility] CREATININE S/P/B 0.61(L) 0.7 - 1.3 MG/DL 11/29/2024 6:38 AM CDT [facility] SODIUM S/P/B 135(L) 136 - 145 MMOL/L 11/29/2024 6:38 AM CDT [facility] POTASSIUM S/P/B 3.6 3.5 - 5.1 MMOL/L 11/29/2024 6:38 AM CDT [facility] CHLORIDE S/P/B 105 97 - 115 MMOL/L 11/29/2024 6:38 AM CDT [facility] CO2 25.4 21 - 32 MMOL/L 11/29/2024 6:38 AM CDT [facility] CALCIUM S/P/B 8.7 8.5 - 10.1 MG/DL 11/29/2024 6:38 AM CDT [facility] ANION GAP 4.6 2 - 10 MMOL/L 11/29/2024 6:38 AM CDT [facility] BUN CREATININE RATIO 4.9(L) 6 - 26 11/29/2024 6:38 AM CDT [facility] GFR ESTIMATE >90 >90 ML/MIN/1.7 3 M2 11/29/2024 6:38 AM CDT [facility] Comment: NOTE: eGFR is not calculated for patients <18 years of age or gender unknown. This is an estimated GFR calculation using the new CKD EPI creatinine equation without race and so does not require a correction factor for race. This estimated GFR should not be used for calculating drug doses. 11/29/2024 6:00 AM CDT Anival Tolbert DO LABORATORY Final Resul t [facility] [address] [place] [address], * CT HEAD WO CON (11/27/2024 5:46 PM CDT) Anatomical Region Laterality Modality Head Computed Tomogra phy 11/28/2024 2:02 AM CDT Impressions 11/28/2024 2:06 AM CDT IMPRESSION: 1. No CT evidence of an acute intracranial abnormality. 2. No maxillofacial bone fracture. Referred By: Interpreted By: Mohamud Stubbs MD, 11/28/2024 2:02 AM Narrative 11/28/2024 2:06 AM CDT [facility] [address] [place], [place] [address] EXAMINATION: CT HEAD WO CON, CT FACIAL BONES WO CON, 11/28/2024 2:03 AM TECHNIQUE: Computed tomographic images of the head and maxillofacial bones were obtained without intravenous contrast. Additional coronal and sagittal reformatted images were generated. A dose lowering technique was used for this procedure, which may include, but is not limited to, dose reduction technique, automated exposure control, the use of iterative reconstruction, and ALARA (As Low As Reasonably Achievable) / Image Gently techniques. HISTORY: Intractable headache COMPARISON: CT head 10/31/2024 FINDINGS: CT HEAD: There is no acute intracranial hemorrhage. No extra-axial fluid collection. Preserved falcon-white matter differentiation. The basal cisterns appear normal. Orbital contents appear normal. Paranasal sinuses and mastoid air cells are well-aerated. There is no acute fracture. There is a 1.5 cm focal area of soft tissue thickening involving the left parietal scalp (best seen on series 4 image 66) is nonspecific but could represent a sebaceous cyst, or possibly keloid. Correlation with direct physical exam findings recommended. CT MAXILLOFACIAL BONES: Orbital roof and floor intact bilaterally. Lamina papyracea are intact. The zygomas are intact. Nasal bones and nasal septum are intact. The mandible is intact. Procedure Note Mohamud Stubbs MD - 11/28/[address] [address] EXAMINATION: CT HEAD WO CON, CT FACIAL BONES WO CON, 11/28/2024 2:03 AM TECHNIQUE: Computed tomographic images of the head and maxillofacial boneswere obtained without intravenous contrast. Additional coronal andsagittal reformatted images were generated. A dose lowering technique wasused for this procedure, which may include, but is not limited to, dosereduction technique, automated exposure control, the use of iterativereconstruction, and ALARA (As Low As Reasonably Achievable) / Image Gentlytechniques. HISTORY: Intractable headache COMPARISON: CT head 10/31/2024 FINDINGS: CT HEAD: There is no acute intracranial hemorrhage. No extra-axial fluidcollection. Preserved falcon-white matter differentiation. The basalcisterns appear normal. Orbital contents appear normal. Paranasalsinuses and mastoid air cells are well-aerated. There is no acutefracture. There is a 1.5 cm focal area of soft tissue thickeninginvolving the left parietal scalp (best seen on series 4 image 66) isnonspecific but could represent a sebaceous cyst, or possibly keloid.Correlation with direct physical exam findings recommended. CT MAXILLOFACIAL BONES: Orbital roof and floor intact bilaterally. Laminapapyracea are intact. The zygomas are intact. Nasal bones and nasalseptum are intact. The mandible is intact. IMPRESSION: 1. No CT evidence of an acute intracranial abnormality. 2. No maxillofacial bone fracture. Referred By: Interpreted By: Mohamud Stubbs MD, 11/28/2024 2:02 AM Anival Tolbert DO CT Final Resul t * CT FACIAL BONES WO CON (11/27/2024 5:46 PM CDT) Anatomical Region Laterality Modality Facial Computed Tomogra phy 11/28/2024 2:02 AM CDT Impressions 11/28/2024 2:06 AM CDT IMPRESSION: 1. No CT evidence of an acute intracranial abnormality. 2. No maxillofacial bone fracture. Referred By: Interpreted By: Mohamud Stubbs MD, 11/28/2024 2:02 AM Narrative 11/28/2024 2:06 AM CDT [facility] [address] [place], [place] [address] EXAMINATION: CT HEAD WO CON, CT FACIAL BONES WO CON, 11/28/2024 2:03 AM TECHNIQUE: Computed tomographic images of the head and maxillofacial bones were obtained without intravenous contrast. Additional coronal and sagittal reformatted images were generated. A dose lowering technique was used for this procedure, which may include, but is not limited to, dose reduction technique, automated exposure control, the use of iterative reconstruction, and ALARA (As Low As Reasonably Achievable) / Image Gently techniques. HISTORY: Intractable headache COMPARISON: CT head 10/31/2024 FINDINGS: CT HEAD: There is no acute intracranial hemorrhage. No extra-axial fluid collection. Preserved falcon-white matter differentiation. The basal cisterns appear normal. Orbital contents appear normal. Paranasal sinuses and mastoid air cells are well-aerated. There is no acute fracture. There is a 1.5 cm focal area of soft tissue thickening involving the left parietal scalp (best seen on series 4 image 66) is nonspecific but could represent a sebaceous cyst, or possibly keloid. Correlation with direct physical exam findings recommended. CT MAXILLOFACIAL BONES: Orbital roof and floor intact bilaterally. Lamina papyracea are intact. The zygomas are intact. Nasal bones and nasal septum are intact. The mandible is intact. Procedure Note Mohamud Stubbs MD - 11/28/[address] [address] EXAMINATION: CT HEAD WO CON, CT FACIAL BONES WO CON, 11/28/2024 2:03 AM TECHNIQUE: Computed tomographic images of the head and maxillofacial boneswere obtained without intravenous contrast. Additional coronal andsagittal reformatted images were generated. A dose lowering technique wasused for this procedure, which may include, but is not limited to, dosereduction technique, automated exposure control, the use of iterativereconstruction, and ALARA (As Low As Reasonably Achievable) / Image Gentlytechniques. HISTORY: Intractable headache COMPARISON: CT head 10/31/2024 FINDINGS: CT HEAD: There is no acute intracranial hemorrhage. No extra-axial fluidcollection. Preserved falcon-white matter differentiation. The basalcisterns appear normal. Orbital contents appear normal. Paranasalsinuses and mastoid air cells are well-aerated. There is no acutefracture. There is a 1.5 cm focal area of soft tissue thickeninginvolving the left parietal scalp (best seen on series 4 image 66) isnonspecific but could represent a sebaceous cyst, or possibly keloid.Correlation with direct physical exam findings recommended. CT MAXILLOFACIAL BONES: Orbital roof and floor intact bilaterally. Laminapapyracea are intact. The zygomas are intact. Nasal bones and nasalseptum are intact. The mandible is intact. IMPRESSION: 1. No CT evidence of an acute intracranial abnormality. 2. No maxillofacial bone fracture. Referred By: Interpreted By: Mohamud Stubbs MD, 11/28/2024 2:02 AM Anival Tolbert DO CT Final Resul t * (ABNORMAL) HAPTOGLOBIN, QUANT (11/27/2024 8:45 AM CDT) Only the most recent of2 resultswithin the time period is included. HAPTOGLOBIN <7.8(L) 30.0 - 200.0 MG/DL 11/27/2024 9:40 AM CDT [facility] 11/27/2024 8:45 AM CDT Anival Tolbert DO LABORATORY Final Resul t Performing Organization Address City/[facility]/ZIP Co de Phone Number [facility] [address] [place] [address], [place] [phone] * (ABNORMAL) LDH, LACTATE DEHYDROGENASE (11/27/2024 8:45 AM CDT) Only the most recent of2 resultswithin the time period is included. LDH 279(H) 87 - 241 UNITS/L 11/27/2024 1:28 PM CDT [facility] 11/27/2024 8:45 AM CDT Anival Tolbert DO LABORATORY Final Resul t Performing Organization Address City/[facility]/ZIP Co de Phone Number [facility] [address] [place] [address], [place] [phone] * (ABNORMAL) BILIRUBIN, TOTAL AND DIRECT (11/17/2024 4:47 AM CDT) BILIRUBIN TOTAL S/P/B 1.5(H) 0.2 - 1.2 MG/DL 11/17/2024 11:24 AM CDT [facility] Comment: THIS ASSAY IS NOT RECOMMENDED FOR PATIENTS UNDERGOING TREATMENT WITH ELTROMBOPAG DUE TO THE POTENTIAL FOR FALSELY ELEVATED RESULTS. BILIRUBIN DIRECT S/P/B 0.7(H) 0.0 - 0.20 MG/DL 11/17/2024 11:24 AM CDT [facility] BILIRUBIN INDIRECT S/P/B 0.8 0.0 - 0.9 MG/DL 11/17/2024 11:24 AM CDT [facility] 11/17/2024 4:47 AM CDT Franco Quintana MD LABORATORY Final Result Performing Organization Address [facility]/ZIP Co de Phone Number [facility] [address] [place] [address], [place] [phone] * IRON SAT PANEL (IRON,IBC,%SAT) (11/16/2024 6:52 AM CDT) IRON 85 65.0 - 175.0 MCG/DL 11/18/2024 1:52 PM CDT [facility] IRON BINDING CAPACITY 278 250 - 450 MCG/DL 11/18/2024 1:52 PM CDT [facility] IRON SATURATION 31 20 - 55 % 1:52 PM CDT [facility] 11/16/2024 6:52 AM CDT Hasmukh Childers MD LABORATORY Final Result Performing Organization Address City/[facility]/ZIP Co de Phone Number [facility] [address] [place] [address], * (ABNORMAL) FERRITIN (11/16/2024 6:52 AM CDT) FERRITIN 397.1(H) 8.0 - 388.0 NG/ML 11/17/2024 11:30 PM CDT [facility] 11/16/2024 6:52 AM CDT Hasmukh Childers MD LABORATORY Final Result [facility] [address] [place] [address], [place] [phone] * (ABNORMAL) POTASSIUM, SERUM (11/15/2024 5:35 PM CDT) POTASSIUM S/P/B 3.4(L) 3.5 - 5.1 MMOL/L 11/15/2024 7:01 PM CDT [facility] 11/15/2024 5:35 PM CDT Franco Quintana MD LABORATORY Final Result Performing Organization Address City/[facility] Co de Phone Number [facility] [address] [place] [address], [place] [phone] from Last 3 Months Insurance [facility] [employer] Advance Directives * Full Code (Latest Code Status on File) Date Activated Date Inactivated Comments 12/13/2024 8:50 PM 12/22/2024 1:38 PM * Full Code Date Activated Date Inactivated Comments 12/13/2024 7:32 PM 12/13/2024 8:50 PM * Full Code Date Activated Date Inactivated Comments 11/09/2024 4:44 PM 12/07/2024 6:30 PM * Full Code Date Activated Date Inactivated Comments 10/30/2024 12:36 AM 11/01/2024 2:19 PM * Full Code Date Activated Date Inactivated Comments 09/28/2024 11:13 PM 10/04/2024 4:31 PM Care Teams Smoking Pipes Cleaner Relationship Specialty Start Date End Date None, Provider, PCP - General UNKNOWN PHYSICIAN SPECIALTY 09/28/24 Braeden Somers MD [address] [place] [address] Medical Oncologist HEMATOLOGY/ONCOLOGY 12/07/24 6
[2025-02-14 19:24] VITALS: BP 137/113; PULSE 105; RESP 18; TEMP 37.2; O2SAT 99
--- NOTE | 2025-02-14 19:52 | ECG_ITS ---
Test Date: 2025-02-14 21:06:13 Measurements Intervals [place] Rate: 100 P: 55 [place]: 189 QRS: 26 QRSD: 90 T: 12 QT: 298 QTc: 386 Interpretive Statements SINUS TACHYCARDIA OTHERWISE WITHIN NORMAL LIMITS Compared to ECG 01/27/2025 09:27:15 NO SIGNIFICANT CHANGE Electronically Signed On 02-15-2025 12:21:32 CDT by Bradley Kuhn M.D.
[2025-02-14 21:11] LABS: Hematocrit 25.4 % (42.0-52.0); Hemoglobin 8.6 g/dL (14.0-18.0); Immature Reticulocyte Fraction 41.5 % (3.0-15.9); Mean Corpuscular HGB Conc 33.9 g/dl (32-36); Mean Corpuscular Hemoglobin 30.9 pg (26-34); Mean Corpuscular Volume 91.4 fl (80-100); Platelet Count Result 333 k/mm3 (150-375); Red Blood Count 2.78 M/mm3 (4.6-6.20); Reticulocyte Hemoglobin Conten 34.6 pg (28.2-36.6); Reticulocytes Absolute 0.42 10^6/uL (0.02-0.10); White Blood Count 11.7 K/mm3 (4.5-10.0)
[2025-02-14 21:35] LABS: Alanine Aminotransferase 62 U/L (6-50); Albumin Level 4.6 g/dL (3.5-5.1); Alkaline Phosphatase 314 U/L (38-126); Anion Gap 11 mmol/L (4-12); Aspartate Amino Transferase 94 U/L (17-59); Bilirubin,Total 7.8 mg/dL (0.2-1.3); Blood Urea Nitrogen 2 mg/dL (9-20); Calcium 8.8 mg/dL (8.4-10.2); Carbon Dioxide 23 mmol/L (22-30); Chloride 106 mmol/L (98-107); Estimated CRCL calculation 236 ml/min; Estimated Glomerular Filt Rate > 60; Glucose 114 mg/dL (65-110); Lipase 27 U/L (23-300); Potassium 3.4 mmol/L (3.4-5.0); Sodium 140 mmol/L (137-145); Total Protein 9.2 g/dL (6.3-8.2)
[2025-02-14] MEDS: LACTATED RINGERS 1,000 ML 999 ML IV CONT (21:39)
[2025-02-14] MEDS: ONDANSETRON INJ 4 MG/2 ML VIAL IV PUSH (21:40)
[2025-02-14] MEDS: HYDROmorphone HCL INJ (*CRX) 1 MG/ML SYR IV PUSH (21:45)
[2025-02-14 21:46] LABS: INR 1.2; Prothrombin Time 15.6 Seconds (11.1-14.7)
[2025-02-14 21:47] LABS: Troponin I < 0.012 ng/mL (0.000-0.034)
[2025-02-14] MEDS: KETOROLAC 15 MG/ML VIAL (*BKC) IV PUSH (21:48)
[2025-02-14 21:49] LABS: Partial Thromboplastin Time 20.0 Seconds (22.3-36.8)
--- OUTSIDE RECORDS SUMMARY | 2025-02-14 21:57 | XMS_ITS | CCD ---
Author Name Interface, [address] Address More breakthroughs. More victories. [address] Oncology Address More breakthroughs. More victories. 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
--- OUTSIDE RECORDS SUMMARY | 2025-02-14 21:57 | XMS_ITS | Encounter Summary ---
Author Organization [facility] Address [address] [facility] [place] [address] Care Team Providers Care Dictating Transcribing Machine Servicer Name Role Phone Nina Hines APRN-SUPERVISOR BOARDING Primary Care Provider + Given, None Primary Care Provider Laurent Noel MD Primary Care Provider [phone] Reason for Visit * Reason Onset Date Comments MEDICATION REFILL 07/16/2023 Encounter Details Date Type Department Care Team (Late st Contact Info) Description 07/16/2023 Refill [facility] - Internal Medicine [address] , [address] [address] Nina Hines, GASTON-SUPERVISOR BOARDING [address] [address] MEDICATION REFILL Social History Tobacco [...] medical care, and heating? Patient declined 06/16/2023 [facility] - Occupational Stress [...] place to sleep or slept in a half-way (including now)? 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 Gender Identity Not on file Sexual Orientation [...] of Assessment Author No 06/16/2023 2:45 PM WEATHERIZATION COORDINATOR Redshaw, Radha K, RN * Does person [...] Under Investigation 05/15/2024 05/15/2024 05/16/2024 3:26 AM WEATHERIZATION COORDINATOR COVID-19 Under Investigation 06/30/2024 06/30/2024 06/30/2024 7:12 PM WEATHERIZATION COORDINATOR documented as of this encounter Care Teams Dictating Transcribing Machine Servicer Relationship Specialty Start Date End Date Nina Hines, GASTON-SUPERVISOR BOARDING [address] [address] PCP - General Nurse Practitioner 07/16/23 08/26/23 Given, None PCP - General 09/28/23 01/14/24 Laurent Gonzalez MD [address] [place] [address] PCP - General Hematology 01/15/24 documented as of this encounter
--- OUTSIDE RECORDS SUMMARY | 2025-02-14 21:57 | XMS_ITS | Encounter Summary ---
Author Organization [facility] Healthcare Address [address] [place] [address] Care Team Providers Care Sack Filler Name Role Phone Ray Sainz MD Unavailable [phone] Gordo Herrera MD Unavailable [phone] Miscellaneous, Not In File Unavailable Unava ilable Laurent Gonzalez MD Primary Care Provider [phone] Mariam Hedrick Unavailable Unavailable Ning Lowery DNP Unavailable [phone] Ana Duran RN Unavailable [phone] Areli Zuniga Unavailable Unavailable Ning Lowery DNP Unavailable [phone] Tobin Terrell MD Unavailable [phone] Encounter Details Date Type Department Care Team (Late st Contact Info) Description 05/15/2024 Documentation [facility] Main [address] [address] Forrest Domínguez, BOUCHRA Social History Tobacco Use Types Packs/Day Years Used Date Smoking Tobacco: Never Smokeless Tobacco: Never Alcohol Use Standard Drinks/Week Comments Not Currently 0 (1 standard drink = 0.6 oz pur e alcohol) [facility] Utilities Answer Date Recorded In [...] often do you attend chur ch or catholic services? Never 05/13/2024 Do you belong to any clubs o r organizations such as yazidi groups, unions, fraternal or athletic groups, or [...] place to sleep or slept in a fci (including now)? No 09/01/2023 Housing Stability Vital [...] time in the past 12 m [facility], were you homeless or living in a fci (including now)? No 05/13/2024 Personal Safety Answer Date Recorded Have you ever been in or are you currently in a harmful physical or emotional relationship or is someone making you feel afraid or unsafe? Denies 05/11/2024 Sex and Gender Information Value Date Recorded Sex Assigned at Not on file Legal Sex Male 10:50 AM SUPERVISOR WHEEL SHOP Gender Identity Male 12/06/2024 9:44 PM CDT Sexual Orientation Straight 12/06/2024 9: 44 PM CDT documented as of this encounter Plan of Treatment Not on file documented as of this encounter Visit Diagnoses Not on filedocumented in this encounter Additional Health Concerns Infection Onset Date Last Indicated Resolved Time COVID: Suspected 05/29/2024 05/29/2024 05/29/2024 10:06 PM SUPERVISOR WHEEL SHOP COVID: Suspected 07/24/2024 07/24/2024 07/24/2024 5:44 AM SUPERVISOR WHEEL SHOP Norovirus suspected 07/24/2024 07/24/2024 07/30/19 3:05 AM SUPERVISOR WHEEL SHOP C. difficile suspected 07/24/2024 07/24/202407/29 3:05 AM SUPERVISOR WHEEL SHOP COVID: Suspected 08/13/2024 08/13/2024 08/13/2024 1:30 PM CDT COVID: Suspected 11/01/2024 11/01/2024 11/01/2024 2:39 PM CDT Ring Surveillance: C. auris 11/08/2024 11/08/2024 11/15/2024 7:26 PM CDT COVID: Suspected 12/23/2024 12/23/2024 12/23/2024 5:12 PM CDT documented as of this encounter Care Teams Sack Filler Relationship Specialty Start Date End Date Laurent Gonzalez MD [address] [place] [address] PCP - General Hematology and Oncology 10/18/23 Ray Sainz MD [address] [facility] [address] [place] [address] 02/10/20 [place] [address] [facility] [address] [place] [address] Consulting Physician Family Medicine 05/05/22 Miscellaneous, Not In File 12/14/22 Mariam Hedrick Outpatient Signal Tower Operator 05/31/24 08/15/24 Ning Lowery DNP [address] [facility] [address] [place] [address] Nurse Practitioner Internal Medicine 05/31/24 08/15/24 Ana Duran, BOUCHRA [address] [facility] [address] [place] [address] LAUREN Outpatient Signal Tower Operator 07/29/24 08/02/24 Areli Zuniga Outpatient Signal Tower Operator 08/16/24 09/23/24 Ning Lowery DNP [address] [facility] [address] [place] [address] Nurse Practitioner Internal Medicine 08/16/24 09/23/24 [place] [address] [facility] [address] [place] [address] Consulting Physician Orthopedic Surgery 08/18/24 documented as of this encounter
--- OUTSIDE RECORDS SUMMARY | 2025-02-14 21:57 | XMS_ITS | Encounter Summary ---
Author Organization [facility] Address [address] [facility] [address] [place] [address] Phone Care Team Providers Care Live Hanger Name Role Phone Ray Sainz MD Unavailable [phone] Gordo Herrera MD Unavailable [phone] Miscellaneous, Not In File Unavailable Unava ilable Laurent Gonzalez MD Primary Care Provider [phone] Tobin Terrell MD Unavailable [phone] Encounter Details Date Type Department Care Team (Late st Contact Info) Description 02/14/2025 Telephone [place] [address] [facility] Floor [address] [place] [address] Antonina High Social History Tobacco [...] week 12/08/2024 How often do you attend [facility] or methodist services? Never 12/08/2024 Do you belong to any clubs o r organizations such as synagogue groups, unions, fraternal or athletic groups, or [...] in a fci (including now)? No 09/01/2023 PHQ-9 Answer Date [...] any time in the past [address] [facility], were you homeless or living in a fci (including now)? No 12/08/2024 Social Connection and Isolation Panel Answer Date Recorded In a typical week, how many times do you talk on the phone with family, friends, or neighbors? More than three times a week 01/03/2025 How often do you get togethe r with friends or relatives? Twice a week 01/03/2025 How often do you attend chur ch or methodist services? Never 01/03/2025 Do you belong to any clubs o r organizations such as synagogue groups, unions, fraternal or athletic groups, or [...] any time in the past [address] [facility], were you homeless or living in a fci (including now)? No 01/03/[address] 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 Gender Identity Male 12/06/2024 9:44 [...] on filedocumented in this encounter Care Teams Live Hanger Relationship Specialty Start Date End Date Laurent Gonzalez MD [address] [place] [address] PCP - General Hematology and Oncology 10/18/23 Ray Sainz MD [address] [facility] [address] [place] [address] 02/10/20 [place] [address] [address] [facility] [address] [place] [address] Consulting Physician Family Medicine 05/05/22 Miscellaneous, Not In File 12/14/22 [place] [address] [address] Consulting Physician Orthopedic Surgery 08/18/24 documented as of this encounter
--- OUTSIDE RECORDS SUMMARY | 2025-02-14 21:57 | XMS_ITS | Encounter Summary ---
Author Organization [facility] Healthcare Address [address] [place] [address] Care Team Providers Care Light Truck Driver Name Role Phone Ray Sainz MD Unavailable [phone] Gordo Herrera MD Unavailable [phone] Miscellaneous, Not In File Unavailable Unava ilable Laurent Gonzalez MD Primary Care Provider [phone] Mariam Hedrick Unavailable Unavailable Ning Lowery DNP Unavailable [phone] Aan Duran RN Unavailable [phone] Areli Zuniga Unavailable Unavailable Ning Lowery DNP Unavailable [phone] Tobin Terrell MD Unavailable [phone] Encounter Details Date Type Department Care Team (Late st Contact Info) Description 08/02/2024 [facility] Sickle Cell CHW Initial Eligibility Review [facility] Sickle Cell Disease Community Health Worker [address] [place] [id number] Divya Wallace Social History Tobacco Use Types Packs/Day Years Used Date Smoking Tobacco: Never Smokeless Tobacco: Never Alcohol Use Standard Drinks/Week Comments Not Currently 0 (1 standard drink = 0.6 oz pur e alcohol) [facility] Utilities Answer Date Recorded In the past 12 months has [employer], gas, oil, or water [employer] threatened to shut off services in your home? No 07/26/2024 Social Connection and Isolation Panel Answer Date Recorded In a typical week, how many times do you talk on the phone with family, friends, or neighbors? Never 07/26/2024 How often do you get together with friends or re latives? Never 07/26/2024 How often do you attend rastafarian or sikh serv ices? Never 07/26/2024 Do you belong to any clubs o r organizations such as rastafarian groups, unions, fraternal or athletic groups, or [...] place to sleep or slept in a penitentiary (including now)? No 09/01/2023 Housing Stability Vital Sign Answer Samy e Recorded In the last 12 months, was t here a time when you were not able to pay the mortgage or rent on time? No 07/26/2024 In the past 12 months, how m any times have you moved where you were living? 0 07/26/2024 At any time in the past 12 m [facility], were you homeless or living in a penitentiary (including now)? No 07/26/2024 Personal Safety Answer Date Recorded Have you ever been in or are you currently in a harmful physical or emotional relationship or is someone making you feel afraid or unsafe? 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 [address] [place] [address] Consulting Physician Family Medicine 05/05/22 Miscellaneous, Not In File 12/14/22 Mariam Hedrick Outpatient Manager Target 05/31/24 08/15/[address] [facility] [address] [place] [address] Nurse Practitioner Internal Medicine 05/31/24 08/15/24 Ana Duran, RN [address] [facility] [address] [place] [address] SHOP Outpatient Manager [employer] 07/29/24 08/02/24 Areli Zuniga Outpatient Manager [employer] 08/16/24 09/23/[address] [facility] [address] [place] [address] Nurse Practitioner Internal Medicine 08/16/24 09/23/[address] [place] [address] [facility] [address] [place] [address] Consulting Physician Orthopedic Surgery 08/18/24 documented as of this encounter
--- OUTSIDE RECORDS SUMMARY | 2025-02-14 21:58 | XMS_ITS | Clinical Summary ---
Author Organization [facility] Facility Address [address] [address] Care Team Providers Care Keymodule Assembly Supervisor Name Role Phone Laurent Gonzalez MD Primary Care Provider [phone] Social History Tobacco Use Types Packs/Day Years [...] Vaccine (#1) 2025 1, 05/03/2009, 05/03/2009 Insurance [employer] ([id number]) Care Teams Keymodule Assembly Supervisor Relationship Specialty Start Date End Date Laurent Gonzalez MD PCP - General Hematology 11/08/24
--- OUTSIDE RECORDS SUMMARY | 2025-02-14 21:58 | XMS_ITS | Encounter Summary ---
Author Organization [facility] Healthcare Address [address] [place] [address] Care Team Providers Care Flash Designer Name Role Phone Ray Sainz MD Unavailable [phone] Miscellaneous, Not In File Primary Care Provider Unavailable Laurent Gonzalez MD Primary Care Provider [phone] Gordo Herrera MD Unavailable [phone] Travis Richards MD Primary Care Provider [phone] Miscellaneous, Not In File Unavailable Unava ilable Daily Cooper MD Primary Care Provider [phone] Laurent Gonzalez MD Primary Care Provider [phone] Mariam Hedrick Unavailable Unavailable Ning Lowery DNP Unavailable [phone] Mariam Hedrick Unavailable Unavailable Ning Lowery DNP Unavailable [phone] Ana uDran RN Unavailable [phone] Areli Zuniga Unavailable Unavailable Ning Lowery DNP Unavailable [phone] Tobin Terrell MD Unavailable [phone] Encounter Details Date Type Department Care Team (Late st Contact Info) Description 11/22/2020 Documentation [facility] Case Management [address] [place] [address] Roula Llanos MSW Social History Tobacco Use Types Packs/Day Years Used Date Smoking Tobacco: Never Smokeless Tobacco: Never Alcohol Use Standard Drinks/Week Comments Not Currently 0 (1 standard drink = 0.6 oz pur e alcohol) Sex and Gender Information Value Date Recorded Sex Assigned at Not on file Legal Sex Male 10:50 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 Roula Llanos LMSW [phone] documented in this encounter Plan of Treatment [...] antipyretics, immunocompetent pt. Flag removed. Talat Shay [phone] 02/09/2023 02/09/2023 02/12/2023 11 :55 AM CDT COVID: Recovered 02/12/2023 02/12/2023 05/13/2023 3:05 AM PUBLIC ADDRESS SYSTEMS MECHANIC COVID: Suspected 04/27/2023 04/27/2023 04/27/2023 4:11 AM PUBLIC ADDRESS SYSTEMS MECHANIC COVID: Suspected 06/26/2023 06/26/2023 06/26/2023 11:44 PM PUBLIC ADDRESS SYSTEMS MECHANIC Diarrhea 06/26/2023 06/26/2023 07/10/2023 3:05 AM PUBLIC ADDRESS SYSTEMS MECHANIC C. difficile suspected 08/30/2023 08/30/202308/30 2:37 PM [...] COVID: Suspected 03/30/2024 03/30/2024 03/30/2024 1:29 PM PUBLIC ADDRESS SYSTEMS MECHANIC C. difficile suspected 05/12/2024 05/14/202405/14 7:10 AM PUBLIC ADDRESS SYSTEMS MECHANIC COVID: Suspected 05/29/2024 05/29/2024 05/29/2024 10:06 PM PUBLIC ADDRESS SYSTEMS MECHANIC COVID: Suspected 07/24/2024 07/24/2024 07/24/2024 5:44 AM PUBLIC ADDRESS SYSTEMS MECHANIC Norovirus suspected 07/24/2024 07/24/2024 07/30/19 3:05 AM PUBLIC ADDRESS SYSTEMS MECHANIC C. difficile suspected 07/24/2024 07/24/202407/29 3:05 AM PUBLIC ADDRESS SYSTEMS MECHANIC COVID: Suspected 08/13/2024 08/13/2024 08/13/2024 1:30 PM CDT COVID: Suspected 11/01/2024 11/01/2024 11/01/2024 2:39 PM CDT Ring Surveillance: C. auris 11/08/2024 11/08/2024 11/15/2024 7:26 PM CDT COVID: Suspected 12/23/2024 12/23/2024 12/23/2024 5:12 PM CDT documented as of this encounter Care Teams Flash Designer Relationship Specialty Start Date End Date Miscellaneous, Not In File PCP - General 11/22/20 11/20/21 Laurent Gonzalez MD [address] [place] [address] PCP - General 11/21/21 08/11/22 Travis Richards MD [address] [facility] [address] [place] [address] PCP - General Pediatric Hematology and Oncology 08/12/22 12/18/22 Daily Cooper MD [address] [place] [address] PCP - General Internal Medicine 12/19/22 10/17/23 Laurent Gonzalez MD [address] [place] [address] PCP - General Hematology and Oncology 10/18/23 Ray Sainz MD 4144 [facility] [address] [place] [address] 02/10/20 [place] [address] [facility] [address] [place] [address] Consulting Physician Family Medicine 05/05/22 Miscellaneous, Not In File 12/14/22 Mariam Hedrick Outpatient Material Disposition Inspector 03/31/24 04/04/24 Ning Lowery DNP [address] [facility] [address] [place] [address] Nurse Practitioner Internal Medicine 03/31/24 04/04/24 Mariam Hedrick Outpatient Material Disposition Inspector 05/31/24 08/15/24 Ning Lowery DNP [address] [facility] [address] [place] [address] Nurse Practitioner Internal Medicine 05/31/24 08/15/24 Ana Duran, BOUCHRA 4590 [facility] [address] [place] [address] [facility] Outpatient Material Disposition Inspector 07/29/24 08/02/24 Areli Zuniga Outpatient Material Disposition Inspector 08/16/24 09/23/24 Ning Lowery DNP [address] [facility] [address] [place] [address] Nurse Practitioner Internal Medicine 08/16/24 09/23/24 [place] [address] [address] [facility] [[email or web address] [address] [place] [address] Consulting Physician Orthopedic Surgery 08/18/24 documented as of this encounter
--- OUTSIDE RECORDS SUMMARY | 2025-02-14 21:58 | XMS_ITS | Clinical Summary ---
Author Organization [facility] Address [address] [place] [address] Phone Care Team Providers Care Insulation Machine Operator Name Role Phone Unavailable Primary Care [...] mouth daily. Active naloxone (NARCAN) 4 mg/spray Webster, Non-Aerosol EMERGENCY USE ONLY: Administer 1 spray [...] CDT - 12/23/2024 12:06 PM CDT Emergency [facility] Emergency Department [address] [place] [id number] Thien Narayan MD Sickle cell pain crisis (CMS/HCC) (Primary Dx) Discharge Disposition: Home or Self Care 12/14/2024 External Device Data STL ABSTRACTION Provider, Abstract 12/09/2024 8:20 PM CDT - 12/13/2024 11:30 AM CDT Hospital Encounter [facility] Telemetry [address] [place] [address] Guy Lowery MD Abduljaber, MD Marlin Gale, [...] on file Legal Sex Male 7:02 AM BLUE PRINT CONTROL CLERK Gender Identity Not on file Sexual Orientation [...] history exists Medical Devices Implanted Type Area Contract Administrative Assistant Device Identifier Shelf Expiration Date Model / Serial / Lot Core Decompression Procedure Kit Pro Dense Implanted:Qty: 1 on 06/30/2022 by Gordo Suazo MD at [facility] Left: Hip BHATT Gogobot [id number] 04/28/2027 [id number] / / [id number] Description:Requisition # [id number]. Procedures Procedure Name Priority Date/Time Associated Diagnosis [...] CDT 12/23/2024 9:19 AM CDT us Protocol [facility] Emergency MD URINE ORDERABLES Fin al Result Performing Organization Address City/State/[facility] Co de Phone Number [facility]# [id number] [address] [place], [place] [address] [address] * (ABNORMAL) CBC WITH DIFFERENTIAL (12/23/2024 1:41 AM CDT) Only the most recent of4 resultswithin the time period is included. WBC 10.9(H) 4.0 - 9.8 K/uL 12/23/2024 2:39 AM CDT [facility] NRBCS 1 % 12/23/2024 2:39 AM CDT [facility] RBC 2.86(L) 4.50 - 5.40 M/uL 12/23/2024 2:39 AM CDT [facility] HEMOGLOBIN 8.4(L) 13.6 - 16.5 g/dL 12/23/2024 2:39 AM CDT [facility] HEMATOCRIT 25.2(L) 40.0 - 48.0 % 12/23/2024 2:39 AM CDT [facility] MCV 88.1 82.0 - 99.0 fL 12/23/2024 2:39 AM CDT [facility] MCH 29.4 27.2 - 32.6 pg 12/23/2024 2:39 AM CDT [facility] MCHC 33.3 31.5 - 35.5 g/dL 12/23/2024 2:39 AM CDT [facility] RDW 19.3(H) 11.5 - 14.5 % 12/23/2024 2:39 AM CDT [facility] . [facility] RDW-STDEV 62.1(H) 37.1 - 48.7 fL 12/23/2024 2:39 AM CDT [facility] PLATELETS 359(H) 140 - 350 K/uL 12/23/2024 2:39 AM CDT [facility] MPV 10.5 9.3 - 12.4 fL 12/23/2024 2:39 AM CDT [facility] NEUTROPHILS 60 % 12/23/2024 2:39 AM CDT [facility] LYMPHOCYTES 29 % 12/23/2024 2:39 AM CDT [facility] MONOCYTES 10 % 12/23/2024 2:39 AM CDT [facility] EOSINOPHILS 1 % 12/23/2024 2:39 AM CDT [facility] BASOPHILS 1 % 12/23/2024 2:39 AM CDT [facility] IMMATURE GRANULOCYTES 0 % 12/23/2024 2:39 AM CDT [facility] NEUTROPHIL ABSOLUTE 6.56 1.90 - 7.00 K/uL 12/23/2024 2:39 AM CDT [facility] LYMPHOCYTE ABSOLUTE 3.10 0.70 - 4.50 K/uL 12/23/2024 2:39 AM CDT [facility] MONOCYTE ABSOLUTE 1.03 0.10 - 1.30 K/uL 12/23/2024 2:39 AM CDT [facility] EOSINOPHIL ABSOLUTE 0.08 0.00 - 0.70 K/uL 12/23/2024 2:39 AM CDT [facility] BASOPHILS ABSOLUTE 0.05 0.00 - 0.20 K/uL 12/23/2024 2:39 AM CDT [facility] IMMATURE GRANULOCYTES ABSOLUTE 0.03 0.00 - 0.03 K/uL 12/23/2024 2:39 AM CDT [facility] - . [facility] Blood Venipuncture / Unknown 12/23/2024 1:41 AM CDT 12/23/2024 1:47 AM CDT Bk Luke IV, DO HEMATOLOGY ORDERA BLES Final Result [facility] CLIA# [id number] [address] [place] [address] * (ABNORMAL) RETICULOCYTES (12/23/2024 1:41 AM CDT) Only the most recent of2 resultswithin the time period is included. Pathologist [facility] RETICULOCYTES 13.0(H) 0.7 - 2.9 % 12/23/2024 3:04 AM CDT [facility] - . [facility] IMMATURE RETIC FRACTION 37.2(H) 3.0 - 18.0 % 12/23/2024 3:04 AM CDT [facility] - [facility] RETICULOCYTE, ABSOLUTE 0.3656 10e6/uL 12/23/2024 3:04 AM CDT [facility] - . [facility] Comment:Quantitated by dilut ion. Blood Venipuncture / Unknown 12/23/2024 1:41 AM CDT 12/23/2024 1:47 AM CDT Bk Luke IV, DO HEMATOLOGY ORDERA BLES Final Result [facility] CLIA# [id number] [address] [place] [address] * (ABNORMAL) COMPREHENSIVE METABOLIC PANEL (12/23/2024 1:41 AM CDT) Only the most recent of4 resultswithin the time period is included. [facility] SODIUM 136 136 - 145 mmol/L 12/23/2024 2:23 AM [facility] POTASSIUM 3.5 3.5 - 5.0 mmol/L 12/23/2024 2:23 AM [facility] CHLORIDE 102 98 - 107 mmol/L 12/23/2024 2:23 AM [facility] CO2 24 22 - 29 mmol/L 12/23/2024 2:23 AM [facility] [place] CALCIUM 9.2 8.6 - 10.2 mg/dL 12/23/2024 2:23 AM [facility] . [facility] BUN 3(L) 6 - 20 mg/dL 12/23/2024 2:23 AM [facility]. [facility] CREATININE 0.49(L) 0.67 - 1.17 mg/dL 12/23/2024 2:23 AM [facility]. [facility] GLUCOSE 101(H) 74 - 99 mg/dL 12/23/2024 2:23 AM [facility] . [facility] TOTAL PROTEIN 8.0 6.7 - 8.6 g/dL 12/23/2024 2:23 AM [facility]. [facility] ALBUMIN 4.1 3.5 - 5.2 g/dL 12/23/2024 2:23 AM [facility]. [facility] BILIRUBIN TOTAL 5.7(H) 0.0 - 1.2 mg/dL 12/23/2024 2:23 AM [facility]. [facility] ALKALINE PHOSPHATASE 403(H) 40 - 129 U/L 12/23/2024 2:23 AM [facility]. [facility] AST 78(H) <41 U/L 12/23/2024 2:23 AM [facility]. [facility] ALT 49(H) <42 U/L 12/23/2024 2:23 AM [facility]. [facility] GFR >60 >=60 mL/min/1.7 3 sq meter 12/23/2024 2:23 AM CDT [facility] Comment:eGFR calculated with 2020 CKD-EPI equation. Vegetarian diet, extremely high or low muscle mass, and may affect results. Cystatin C with Glomerular Filtration Rate is a suitable alternative for these patients. ANION GAP 10 8 - 16 mmol/L 12/23/2024 2:23 AM CDT [facility] Blood Venipuncture / Unknown 12/23/2024 1:41 AM CDT 12/23/2024 1:47 AM CDT Narrative [facility] - 12/23/2024 2:23 AM CDT Samples containing indocyanine green cause interferences on Total and/or Direct Bilirubin and must not be measured. us Bk Luke IV, DO CHEMISTRY ORDERAB LES Final Result [facility]# [id number] [address] [facility] [place] [address] * XR CHEST PA AND LATERAL 2 [...] PA AND LATERAL 2 VW Ordering provider: [facility] History: 29 years Male with Chest Pain. See Reason for Exam. Comparison: 12/10/2024 Procedure Note Saeid Higgins MD - 12/22/2024 XR CHEST PA AND LATERAL 2 VW Ordering provider: [facility] History: 29 years Male with [...] SYSTEM - 12/23/2024 6:03 AM CDT [address] [address] Test Date: 2024-12-22 Pat Name: JOHNNY MYERSLEY Department: 37 Room: Gender: Male Logistics Analytics Manager: [email or web address] : 1995 Requested By: Order Number: [id number] Reading MD: Jame Hernandez Measurements Intervals [place] Rate: 93 P: 24 WA: 202 QRS: 26 QRSD: 87 T: 24 QT: 379 QTc: 472 Interpretive Statements Sinus rhythm Borderline prolonged WA interval Possible left atrial enlargement Borderline prolonged QT interval Electronically Signed On 12-23-2024 6:03:06 CDT by Jame Hernandez Procedure Note Jame Hernandez MD - 12/23/[address] [address] Test Date: 2024-12-22 Pat Name: JOHNNY SIMON Department: 37 Room: Gender: Male Logistics Analytics Manager: [email or web address] : 1995 Requested By: Order Number: [id number] Reading MD: Jame Hernandez Measurements Intervals [place] Rate: 93 P: 24 WA: 202 QRS: 26 QRSD: 87 T: 24 QT: 379 QTc: 472 Interpretive Statements Sinus rhythm Borderline prolonged WA interval Possible left atrial enlargement Borderline prolonged [...] <6 <=15 ng/L 12/10/2024 9:24 AM CDT [facility] [employer] [facility] Blood Venipuncture / Unknown 12/10/2024 8:19 AM CDT 12/10/2024 8:36 AM CDT Narrative [facility] [employer] [facility] - 12/10/2024 9:24 AM CDT Troponin Undetectable Iglesia Rausch PA-C CHEMISTRY ORDERABLES Fin al Result Performing Organization Address [facility] Co de Phone Number [facility] [employer] [facility]CA# [id number] [address] [facility] [place] [address] * (ABNORMAL) LACTATE DEHYDROGENASE (12/10/2024 8:19 AM CDT) Pathologist [facility] LD (LACTATE DEHYDROGENASE) 438(H) 135 - 225 U/L 12/10/2024 9:24 AM CDT [facility] Comment:Moderate hemolysis p resent. Can cause significant falsely elevated result. Redraw if indicated. Blood Venipuncture / Unknown 12/10/2024 8:19 AM CDT 12/10/2024 8:36 AM CDT Iglesia Rausch PA-C CHEMISTRY ORDERABLES Fin al Result [facility] [employer] [facility]# [id number] [address] [place] [address] * (ABNORMAL) HAPTOGLOBIN (12/10/2024 8:19 AM CDT) HAPTOGLOBIN <10(L) 30 - 200 mg/dL 12/10/2024 9:42 AM CDT [facility] [employer] [facility] Comment:Hemolysis present. R esult may be falsely decreased. Blood Venipuncture / Unknown 12/10/2024 8:19 AM CDT 12/10/2024 8:34 AM CDT Iglesia Rausch PA-C CHEMISTRY ORDERABLES Fin al Result [facility] [employer] [facility]# [id number] [address] [place] [address] from Last 3 Months Insurance BC[employer] [facility] MEDICA[place] RX INFOCROSSING Medicaid RX [employer] PLANS (INTERNAL) [facility] Internal Plans Advance Directives For more information, please contact: [phone] * Full Code (Latest Code Status on [...]
--- OUTSIDE RECORDS SUMMARY | 2025-02-14 21:58 | XMS_ITS | Clinical Summary ---
Author Organization [facility] Address [address] [place] [address] Care Team Providers Care Relocation Director Name Role Phone Ray Sainz MD Unavailable [phone] Gordo Herrera MD Unavailable Miscellaneous, Not In File Unavailable Unava ilable Laurent Gonzalez MD Primary Care Provider [phone] Tobin Terrell MD Unavailable [phone] Allergies Active Allergy Reactions Criticality Noted [...] Monitor Assessment & Plan (07/24/2024 3:17 AM CHIEF LEARNING OFFICER): Repleted by ER Monitor Sickle cell crisis 05/11/2024 Assessment & Plan (07/24/2024 3:19 AM CHIEF LEARNING OFFICER): Patient presenting with pain in the back, [...] - Patient requesting dilaudid pushes instead of DIRECTOR OF HOUSING - Changed to dilaudid 2 mg q3hr [...] 05/25/2023 Assessment & Plan (05/27/2023 5:37 PM CHIEF LEARNING OFFICER): Prior MD noted him refusing lab draws and all meds except opioids, similar to last admission. Also documented non-compliance with recommended outpatient hematology f/u and methadone dosing. Mouth pain 05/01/2023 Assessment & Plan (05/01/2023 5:35 PM CHIEF LEARNING OFFICER): No lesion or signs of infxn seen. He will need to arrange outpatient dental f/u. - viscous lidocaine prn Insomnia 02/07/2023 Assessment & Plan (02/09/2023 2:08 PM CDT): - ramelteon not effective, trial of trazodone on 02/07 Acute on chronic pain 01/30/2023 Assessment & Plan (05/31/2023 1:59 PM CHIEF LEARNING OFFICER): P/w complaints of acute on chronic pain. [...] admission would be 48h of IV Dilaudid [employer] OF HOUS[employer]. He demanded that IV pushes of dilaudid be used instead. This request was refused. -IV Dilaudid [employer] 1mg q15min. Discharge later today. -Scheduled tylenol [...] Started on bowel regimen. - Continue dilaudid [employer] H[employer] 2mg q20 min. Weaned dPCA 2mg to [...] to dizziness. He was initially established with [facility], saw Dr. Gonzalez once since his transition to adult care then was following intermittently at [facility] given proximity to his place. There was concern by his dampener Dr. Bryon marquis: opioid use disorder, having [...] and refused to continue care at [facility]. -He has been hospitalized near continuously for the last 2 months. -Hematology and pain team consulted, discussed pain management w/ them -Pain regimen: on 12/21- continue scheduled Tylenol 1 g q.6 hours, switch Oxy 30 mg to q.4 hours instead of p.r.n., added IV toradol 15 g q6hrs and switched his IV dilaudid to [employer] HOUSING (0.2 mg q15 mins) to prevent the euphoric effect. [employer] HOUSING to 0.5 Q20 on 12/22. Discussed with pt no further uptitrations of [employer] OF HOUSING. Some mild somnolence noted 12/23. Starting lidocaine infusion on 12/24 -Ongoing concerns for pain seeking behavior. Pain should be controlled within few days on the [employer]OR OF HOUSING or lido gtt then switched to po regimen. Pt agreed to hard deadline of 12/25 for start weaning of the [employer] OF HOUSING and scheduled oxycodone. - 12/25 weaned off [employer]OR OF HOUSING. Regimen changed to oxycodone Q4+APAP 650 Q4. [...] appointment Assessment & Plan (05/29/2023 3:54 PM CHIEF LEARNING OFFICER): Hgb at baseline on admission. No chest pain or shortness of breath to suggest acute chest. Continue folic acid. Per chart review, hydroxyurea was discontinued. Has missed appointments to get crizanlizumab infusion. -He plans to F/U with [facility] later this month Assessment & Plan (05/06/2023 1:09 PM CHIEF LEARNING OFFICER): Pt presents with acute on chronic pain [...] taken for days - had started dilaudid [employer] HOUSING at outpatient [facility] recommendation, pt with unrelenting pain so was increased to 1mg/q15 minute lockout. Further increase was declined and he stopped asking - hydroxyurea stopped recently - he was not taking due to c/o dizziness - crizanlizumab d/w heme and he was scheduled for it on 04/30 (along with appt) - [facility] notes reviewed including their ongoing concerns about [...] outpatient heme note would not recommend cont [employer] HOUSING past 5-6 days, may need pain consult if unable to be weaned for consideration of lidocaine gtt which is not available at [facility] - Hgb has slowly decreased but still stable in low 7's, no indication for transfusion - per [facility] ok to d/c with on day oxycodone and they will see him in clinic on 05/07 Sickle cell disease with crisis 01/09/2023 Assessment & Plan (10/31/2023 1:47 PM CDT): Images from the original note were not included. HbSS previously followed with Dr. Hernandez in [facility] but due to concerning behaviors including possible opiate diversion and disruptive behaviors, released from clinic. Tentatively has appointment with Dr. Gonzalez from hematology 12/22/2023. Dozens of presentations and admissions to various hospital systems in the interim. - Continue home narcotic regimen (oxycodone) - Home folic acid - [employer] OF HOUSING at 0.5mg IV, lockout q15m, 1h limit 2.0mg; telemetry with pulse ox while on [employer] HOUSING. Transitioned to IV pushes instead of [employer] OF HOUSING, 2 mg Q3 hours . - Given prior history of inappropriate refusal to wean and per hematology recommendations previously, would look to wean off [employer] OF HOUSING by day 3-4 as clinically appropriate and recommend to avoid continuing [employer] HOUSING beyond 5-6 days with consideration of lidocaine [...] hips/back/long bones/joints including feet. Recently hospitalized at [facility] in [place]. Notes dehydration related to GI losses. Admitted for fluids, pain control. - S/p DIRECTOR OF HOUSING - On 09/01, he is agreeable to transitioning off [employer] HOUSING to Dilaudid now at 0.5 mg IV q4h PRN alternating with oxy-APAP 10-325 q4h PRN - Continue on scheduled oxycodone to 15 mg Q4 hours - Increase Gabapentin to 300 mg TID, continue flexeril 10 mg TID and start on amitriptyline 10 mg daily (uptitrate as needed), meloxicam daily. - LR 75 cc/h - Folic acid - Has had concerning behavior in [facility] sickle cell clinic previously, no longer will be seeing his prior dampener Dr. Hernandez - Hematology consulted: He has [...] Reviewed PDMP: On 08/22 on discharge from [facility] by Dr. Shannon Russell received oxycodone 10 mg #30 tablets and Percocet 10-325 mg #90 tablets. 09/11/23- Hb 6.6, Ordered 1PRBC Assessment & Plan (01/16/2023 4:40 PM CDT): Keep dampener apt on 01/29/23. Emergency room today for Sickle Cell Crisis pain relief. Chronic pain syndrome 12/25/2022 Lightheadedness 12/19/2022 Asthma 12/11/2022 Hypokalemia 12/11/2022 Rectal bleeding 12/11/2022 Vasoocclusive sickle cell crisis 09/01/2022 Assessment & Plan (09/04/2022 1:46 PM CDT): Treating for presumed acute pain crisis Between hematologists, with ongoing plan to establish care in [place], [place] (soonest appointment in October but patient [...] bridge script until patient establishes with new dampener next week Assessment & Plan (09/01/2022 10:39 AM CDT): possible pain crises vs functional. Fired from prior dampener due to pain seeking behaviors -percocet 10 [...] imodium, bentyl - Seen by gastrotenerologist at [facility], recommended outpatient follow up & colonoscopy; no need to pursue inpatient based on findings/data thus far Assessment & Plan (09/02/2022 3:18 PM CDT): C diff negative, stool cultures negative Assessment & Plan (09/01/2022 10:39 AM CDT): Pending stool culture and cdiff Black stools 05/12/2022 Dysuria 05/12/2022 Hypokalemia 05/12/2022 Assessment & Plan (07/24/2024 3:17 AM CHIEF LEARNING OFFICER): Repleted by ER Monitor Assessment & Plan [...] complication Assessment & Plan (04/27/2023 1:33 AM CHIEF LEARNING OFFICER): No c/f exacerbation -cont albuterol PRN Assessment [...] Description 02/14/2025 3:45 PM CDT Office Visit [facility] Medicine Hematology [address] [facility] Floor [address] [place] [id number] Arrived 02/14/2025 3:00 PM CDT Lab [facility] Cancer [place] - Lab Collection [address] [facility] Floor 6 [place] [address] Sickle cell disease with crisis (HCC) 02/14/2025 2:45 PM CDT [facility] [address] [facility] [address] [place] [address] Arrived 02/14/2025 Telephone [facility] Hematology [address] [place] [address] 6 [place] [id number] Antonina High 01/21/2025 Orders Only [facility] Scanning, Provider 01/19/2025 Orders Only [facility] Scanning, Provider 01/18/2025 10:54 PM CDT - 01/19/2025 12:13 AM CDT Emergency [facility] Emergency Department [address] [place] [address] Abena Diego MD Maljese (Primary Dx); H/O sickle cell disease Discharge Disposition: Discharge to home or self care 01/01/2025 12:47 AM CDT - 01/18/2025 1:24 PM CDT Hospital Encounter [facility] 5 Med Surg [address] [place] [address] Bill Carrasquillo DO Medavaram, Atul, MD Kruse, Brandon Chase, DO Pham, Kevin, DO Chowdhury, Farhanaz, MD Lopez, Manuel Emilio, MD Acute sickle cell crisis (HCC) (Primary Dx) Discharge Disposition: Discharge to home or self care 12/23/2024 2:02 PM CDT - 12/23/2024 8:39 PM CDT Emergency [facility] Emergency Department [address] [place] [address] Elijah Ramirez MD 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) Discharge Disposition: Discharge to home or self care 12/22/2024 12:38 PM CDT - 12/22/2024 5:06 PM CDT Emergency [facility] Emergency Department [address] [place] [address] 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) Discharge Disposition: Discharge to home or self care 12/09/2024 2:54 PM CDT - 12/09/2024 3:15 PM CDT Emergency [address] [address] Guillermo Newton MD Sickle cell pain crisis (HCC) (Primary Dx) Discharge Disposition: Discharge to home or self care 12/07/2024 10:44 PM CDT - 12/09/2024 2:46 PM CDT Hospital Encounter [address] [address] Lala Ace MD Medavaram, Atul, MD Smith, [...] often do you attend chur ch or church services? Never 12/08/2024 Do you belong to [...] any time in the past 12 m [facility], were you homeless or living in [...] often do you attend chur ch or church services? Never 01/03/2025 Do you belong to [...] any time in the past 12 m [facility], were you homeless or living in a fpc (including now)? No 01/03/2025 [facility] Utilities Answer Date Recorded In the [...] on file Legal Sex Male 10:50 AM CHIEF LEARNING OFFICER Gender Identity Male 12/06/2024 9:44 PM [...] MD LAB BLOOD ORDERABLES Final R esult [facility] [place] [address] * (ABNORMAL) Differential, auto (02/14/2025 2:49 PM CDT) Neutrophil abs 7.49(H) 1.50 - 6.50 K/cumm Comment:Testing performed by : [facility] Heme Lab, [address] [place], [place] [id number] Lymphocyte abs 3.16 0.80 - 3.30 K/cumm [facility] Comment:Testing performed by : [facility]e [facility], [address] [place], [place] [phone] Monocyte abs 1.08(H) 0.20 - 0.80 K/cumm [facility] Comment:Testing performed by : [facility], [address] [place], [place] [phone] Eosinophil abs 0.10 0.00 - 0.50 K/cumm [facility] Comment:Testing performed by : [facility], [address] [place], [place] [phone] Basophil abs 0.16(H) 0.00 - 0.10 K/cumm [facility] Comment:Testing performed by : [facility], [address] [place] [address], [place] [address] Neutrophil pct 62.5 % [facility] Comment: Interpretive Data Percent cell count reference ranges are not reported, since discordance with absolute values may lead to misinterpretation of CBC data. Current Interpretive Data was last revised on 2017. Testing performed by: [facility], [address] [place] [phone] Lymphocyte pct 26.4 % [facility] Comment: Interpretive Data Percent cell count reference ranges are not reported, since discordance with absolute values may lead to misinterpretation of CBC data. Current Interpretive Data was last revised on 2017. Testing performed by: [facility], [address] [place] [phone] Monocyte pct 9.0 % [facility] Comment: Interpretive Data Percent cell count reference ranges are not reported, since discordance with absolute values may lead to misinterpretation of CBC data. Current Interpretive Data was last revised on 2017. Testing performed by: [facility], [address] [place] [phone] Eosinophil pct 0.9 % [facility] Comment: Interpretive Data Percent cell count reference ranges are not reported, since discordance with absolute values may lead to misinterpretation of CBC data. Current Interpretive Data was last revised on 2017. Testing performed by: [facility], [address] [place] [phone] Basophil pct 1.3 % [facility] Comment: Interpretive Data Percent cell count reference ranges are not reported, since discordance with absolute values may lead to misinterpretation of CBC data. Current Interpretive Data was last revised on 2017. Testing performed by: [facility], [address] [place] [phone] Blood 02/14/2025 2:49 PM CDT 02/14/2025 3:02 PM CDT us Laurent Gonzalez MD LAB BLOOD ORDERABLES Final R esult [facility] Department of Laboratories [place] [id number] * (ABNORMAL) CBC with auto differential (02/14/2025 2:49 PM CDT) WBC 11.99(H) 3.80 - 9.90 K/cumm Comment:Testing performed by : [facility], [address] [place] [address] Hgb 9.2(L) 13.0 - 17.5 g/dL [facility] Comment:Testing performed by : [facility], [address] [place] [address] Hct 26.5(L) 38.9 - 50.3 % [facility] Comment:Testing performed by : [facility], [address] [place] [address] Plt 341 150 - 400 K/cumm [facility] Comment:Testing performed by : [facility], [address] [place] [address] MPV 8.5 6.8 - 10.4 fL [facility] Comment:Testing performed by : [facility], [address] [place] [address] RBC 2.86(L) 4.30 - 5.80 M/cumm [facility] Comment:Testing performed by : [facility], [address] [place] [address] MCV 92.6 81.3 - 96.4 fL [facility] Comment:Testing performed by : [facility], [address] [place] [address] MCH 32.0 27.1 - 33.3 pg [facility] Comment:Testing performed by : [facility], [address] [place] [address] MCHC 34.5 32.3 - 35.7 g/dL [facility] Comment:Testing performed by : [facility], [address] [place] [address] RDW CV 24.7(H) 11.1 - 14.9 % [facility] Comment:Testing performed by : [facility], [address] [place] [address] NRBC abs 0.10(H) 0.00 - 0.01 K/cumm [facility] Comment:Testing performed by : [facility], [facility] [place] [address] Blood 02/14/2025 2:49 PM CDT 02/14/2025 3:02 PM CDT Laurent Gonzalez MD LAB BLOOD ORDERABLES Final R esult [facility] [place] [address] * (ABNORMAL) Comprehensive metabolic panel (02/14/2025 2:49 PM CDT) Sodium 141 135 - 145 mmol/L Potassium, pl 3.3 3.3 - 4.9 mmol/L [facility] Chloride 106 97 - 110 mmol/L [facility] CO2 22 22 - 32 mmol/L [facility] Anion gap 13 2 - 15 mmol/L [facility] BUN 3(L) 6 - 25 mg/dL [facility] Creatinine 0.52(L) 0.80 - 1.30 mg/dL [facility] Glucose 121 70 - 199 mg/dL [facility] Comment: Interpretive Data Fasting glucose >/= [...] 2022. Calcium 9.0 8.5 - 10.3 mg/dL [facility] Bilirubin, total 6.9(H) 0.1 - 1.2 mg/dL [facility] Protein, pl 8.2 6.5 - 8.5 g/dL [facility] Albumin 4.3 3.5 - 5.0 g/dL [facility] Alk phos 310(H) 40 - 130 Units/L [facility] ALT 51 7 - 55 Units/L BANN[facility] AST 86(H) 10 - 50 Units/L [facility] Blood 02/14/2025 2:49 PM CDT 02/14/2025 3:06 PM CDT us Laurent Gonzalez MD LAB BLOOD ORDERABLES Final R esult [facility] [place] [address] * SCAN - RADIOLOGY/IMAGING (01/21/2025) Anatomical Region [...] was last reviewed 2021. Testing performed by: [address] [address] Blood 01/18/2025 6:14 AM CDT 01/18/2025 6:34 AM CDT us Rasta Garcia MD LAB BLOOD ORDERABLES Final Res ult [facility] [address] [facility] Department [place] [address] * (ABNORMAL) Differential, auto (01/18/2025 6:14 AM CDT) Neutrophil abs 5.66 1.50 - 6.50 K/cumm Comment:Testing performed by : [address] [address] Imm gran abs 0.06 0.00 - 0.10 K/cumm [facility] Comment:Testing performed by : [address] [address] Lymphocyte abs 4.21(H) 0.80 - 3.30 K/cumm [facility] Comment:Testing performed by : [address] [address] Monocyte abs 1.53(H) 0.20 - 0.80 K/cumm [facility] Comment:Testing performed by : [address] [address] Eosinophil abs 0.32 0.00 - 0.50 K/cumm [facility] Comment:Testing performed by : [address] [address] Basophil abs 0.06 0.00 - 0.10 K/cumm [facility] Comment:Testing performed by : [address] [address] Neutrophil pct 47.8 % [facility] Comment: Interpretive Data Percent cell count reference ranges are not reported, since discordance with absolute values may lead to misinterpretation of CBC data. Current Interpretive Data was last revised on 2017. Testing performed by: [address] [address] Imm gran pct 0.5 % [facility] Comment: Interpretive Data Percent cell count reference ranges are not reported, since discordance with absolute values may lead to misinterpretation of CBC data. Current Interpretive Data was last revised on 2017. Testing performed by: [address] [address] Lymphocyte pct 35.6 % [facility] Comment: Interpretive Data Percent cell count reference ranges are not reported, since discordance with absolute values may lead to misinterpretation of CBC data. Current Interpretive Data was last revised on 2017. Testing performed by: [address] [address] Monocyte pct 12.9 % [facility] Comment: Interpretive Data Percent cell count reference ranges are not reported, since discordance with absolute values may lead to misinterpretation of CBC data. Current Interpretive Data was last revised on 2017. Testing performed by: [address] [address] Eosinophil pct 2.7 % [facility] Comment: Interpretive Data Percent cell count reference ranges are not reported, since discordance with absolute values may lead to misinterpretation of CBC data. Current Interpretive Data was last revised on 2017. Testing performed by: [address] [address] Basophil pct 0.5 % [facility] Comment: Interpretive Data Percent cell count reference ranges are not reported, since discordance with absolute values may lead to misinterpretation of CBC data. Current Interpretive Data was last revised on 2017. Testing performed by: [address] [address] Blood 01/18/2025 6:14 AM CDT 01/18/2025 6:34 AM CDT us Rasta Garcia MD LAB BLOOD ORDERABLES Final Res ult [facility] [address] [facility] Department [place] [address] * (ABNORMAL) CBC with auto differential (01/18/2025 6:14 AM CDT) [facility] WBC 11.84(H) 3.80 - 9.90 K/cumm Comment:Testing performed by : [address], [address] Hgb 8.3(L) 13.0 - 17.5 g/dL [facility] Comment:Testing performed by : [address], [address] Hct 24.3(L) 38.9 - 50.3 % [facility] Comment:Testing performed by : [address], [address] Plt 302 150 - 400 K/cumm [facility] Comment:Testing performed by : [address], [address] MPV 9.9 9.1 - 12.3 fL [facility] Comment:Testing performed by : [address], [address] RBC 2.79(L) 4.30 - 5.80 M/cumm [facility] Comment:Testing performed by : [address], [address] MCV 87.1 81.3 - 96.4 fL [facility] Comment:Testing performed by : [address], [address] MCH 29.7 27.1 - 33.3 pg [facility] Comment:Testing performed by : [address], [address] MCHC 34.2 32.3 - 35.7 g/dL [facility] Comment:Testing performed by : [address], [address] RDW CV 21.2(H) 11.1 - 14.9 % [facility] Comment:Testing performed by : [address], [address] RDW SD 66.2(H) 35.7 - 48.1 fL [facility] Comment:Testing performed by : [address], [address] NRBC abs 0.05(H) 0.00 - 0.01 K/cumm [facility] Comment:Testing performed by : [address] [address] Morphologic Screen Results confirmed by manual morphology review. [facility] Comment:Testing performed by : [address] [address] Blood 01/18/2025 6:14 AM CDT 01/18/2025 6:34 AM CDT us Rasta Garcia MD LAB BLOOD ORDERABLES Edited Re sult - Final Performing Organization Address [facility] Co de Phone Number [facility] [address] [place] [address] * (ABNORMAL) Reticulocyte Count (01/18/2025 6:14 AM CDT) Pathologist [facility], absolute 362(H) 20 - 87 K/cumm Comment:Testing performed by : [address] [address] Retics 12.5(H) 0.4 - 2.9 % [facility] Comment:Testing performed by : [address] [address] Reticulocyte Hgb 31.6 30.5 - 38.0 pg [facility] Comment:Testing performed by : [address] [address] Blood 01/18/2025 6:14 AM CDT 01/18/2025 6:34 AM CDT us Rasta Garcia MD LAB BLOOD ORDERABLES Final Res ult Performing Organization Address [facility] de Phone Number [place] [address] [facility] [place] [address] * (ABNORMAL) Basic metabolic panel (01/18/2025 6:14 AM CDT) Pathologist [facility] Sodium 138 135 - 145 mmol/L Comment:Testing performed by : [address] [address] Potassium, pl 3.3 3.3 - 4.9 mmol/L [facility] Comment:Testing performed by : [address] [address] Chloride 101 97 - 110 mmol/L [facility] Comment:Testing performed by : [address] [address] CO2 25 22 - 32 mmol/L [facility] Comment:Testing performed by : [address] [address] Anion gap 12 2 - 15 mmol/L [facility] Comment:Testing performed by : [address] [address] BUN 4(L) 6 - 25 mg/dL [facility] Comment:Testing performed by : [address] [address] Creatinine 0.61(L) 0.80 - 1.30 mg/dL [facility] Comment:Testing performed by : [address] [address] Glucose 105 70 - 199 mg/dL [facility] [...] was last revised 2022. Testing performed by: [address] [address] Calcium 9.1 8.5 - 10.3 mg/dL [facility] Comment:Testing performed by : [address] [address] Blood 01/18/2025 6:14 AM CDT 01/18/2025 6:34 AM CDT us Rasta Garcia MD LAB BLOOD ORDERABLES Final Res ult Performing Organization Address City/State/[facility] de Phone Number [facility] [address] [facility] Department [place] [address] * eGFR (01/17/2025 6:04 AM CDT) Pathologist [facility] eGFR >90 >=60 mL/min/1. 73 m2 Comment: [...] was last reviewed 2021. Testing performed by: [address] [address] Blood 01/17/2025 6:04 AM CDT 01/17/2025 6:35 AM CDT us Rasta Garcia MD LAB BLOOD ORDERABLES Final Res ult Performing Organization Address [facility] Co de Phone Number [facility] [address] [facility] Department [place] [address] * (ABNORMAL) Differential, auto (01/17/2025 6:04 AM CDT) Pathologist [facility] Neutrophil abs 4.97 1.50 - 6.50 K/cumm Comment:Testing performed by : [address] [address] Imm gran abs 0.04 0.00 - 0.10 K/cumm [facility] Comment:Testing performed by : [address] [place] [address] Lymphocyte abs 3.73(H) 0.80 - 3.30 K/cumm [facility] Comment:Testing performed by : [address] [address] Monocyte abs 1.04(H) 0.20 - 0.80 K/cumm [facility] Comment:Testing performed by : [address] [address] Eosinophil abs 0.35 0.00 - 0.50 K/cumm [facility] Comment:Testing performed by : [address], [place]., [address] Basophil abs 0.06 0.00 - 0.10 K/cumm [facility] Comment:Testing performed by : [address] [address] Neutrophil pct 48.8 % [facility] Comment: Interpretive Data Percent cell count reference ranges are not reported, since discordance with absolute values may lead to misinterpretation of CBC data. Current Interpretive Data was last revised on 2017. Testing performed by: [address] [address] Imm gran pct 0.4 % [facility] Comment: Interpretive Data Percent cell count reference ranges are not reported, since discordance with absolute values may lead to misinterpretation of CBC data. Current Interpretive Data was last revised on 2017. Testing performed by: [address] [address] Lymphocyte pct 36.6 % [facility] Comment: Interpretive Data Percent cell count reference ranges are not reported, since discordance with absolute values may lead to misinterpretation of CBC data. Current Interpretive Data was last revised on 2017. Testing performed by: [address] [address] Monocyte pct 10.2 % [facility] Comment: Interpretive Data Percent cell count reference ranges are not reported, since discordance with absolute values may lead to misinterpretation of CBC data. Current Interpretive Data was last revised on 2017. Testing performed by: [address] [address] Eosinophil pct 3.4 % [facility] Comment: Interpretive Data Percent cell count reference ranges are not reported, since discordance with absolute values may lead to misinterpretation of CBC data. Current Interpretive Data was last revised on 2017. Testing performed by: [address] [address] Basophil pct 0.6 % [facility] Comment: Interpretive Data Percent cell count reference ranges are not reported, since discordance with absolute values may lead to misinterpretation of CBC data. Current Interpretive Data was last revised on 2017. Testing performed by: [address] [address] Blood 01/17/2025 6:04 AM CDT 01/17/2025 6:35 AM CDT us Rasta Garcia MD LAB BLOOD ORDERABLES Final Res ult [facility] Department [place] [address] * (ABNORMAL) CBC with auto differential (01/17/2025 6:04 AM CDT) WBC 10.19(H) 3.80 - 9.90 K/cumm Comment:Testing performed by : [address] [address] Hgb 8.3(L) 13.0 - 17.5 g/dL [facility] Comment:Testing performed by : [address] [address] Hct 24.0(L) 38.9 - 50.3 % [facility] Comment:Testing performed by : [address] [address] Plt 329 150 - 400 K/cumm [facility] Comment:Testing performed by : [address] [address] MPV 10.6 9.1 - 12.3 fL [facility] Comment:Testing performed by : [address] [address] RBC 2.77(L) 4.30 - 5.80 M/cumm [facility] Comment:Testing performed by : [address] [address] MCV 86.6 81.3 - 96.4 fL [facility] Comment:Testing performed by : [address] [address] MCH 30.0 27.1 - 33.3 pg [facility] Comment:Testing performed by : [address] [address] MCHC 34.6 32.3 - 35.7 g/dL [facility] Comment:Testing performed by : [address] [address] RDW CV 21.2(H) 11.1 - 14.9 % [facility] Comment:Testing performed by : [address] [address] RDW SD 66.2(H) 35.7 - 48.1 fL [facility] Comment:Testing performed by : [address] [address] NRBC abs 0.06(H) 0.00 - 0.01 K/cumm [facility] Comment:Testing performed by : [address], [address] Morphologic Screen Results confirmed by manual morphology review. [facility] Comment:Testing performed by : [address] [address] Blood 01/17/2025 6:04 AM CDT 01/17/2025 6:35 AM CDT us Rasta Garcia MD LAB BLOOD ORDERABLES Edited Re sult - Final [facility] [address] [facility] Department [place] [address] * (ABNORMAL) Reticulocyte Count (01/17/2025 6:04 AM CDT) Retics, absolute 468(H) 20 - 87 K/cumm Comment:Testing performed by : [address] [address] Retics 15.7(H) 0.4 - 2.9 % [facility] Comment:Testing performed by : [address] [address] Reticulocyte Hgb 30.0(L) 30.5 - 38.0 pg [facility] Comment:Testing performed by : [address] [address] Blood 01/17/2025 6:04 AM CDT 01/17/2025 6:35 AM CDT us Rasta Garcia MD LAB BLOOD ORDERABLES Final Res ult [facility] [address] [facility] Department [place] [address] * (ABNORMAL) Basic metabolic panel (01/17/2025 6:04 AM CDT) Sodium 137 135 - 145 mmol/L Comment:Testing performed by : [address] [address] Potassium, pl 3.1(L) 3.3 - 4.9 mmol/L [facility] Comment:Testing performed by : [address] [address] Chloride 101 97 - 110 mmol/L [facility] Comment:Testing performed by : [address] [address] CO2 24 22 - 32 mmol/L [facility] Comment:Testing performed by : [address] [address] Anion gap 12 2 - 15 mmol/L [facility] Comment:Testing performed by : [address] [address] BUN 3(L) 6 - 25 mg/dL [facility] Comment:Testing performed by : [address] [address] Creatinine 0.50(L) 0.80 - 1.30 mg/dL [facility] Comment:Testing performed by : [address] [address] Glucose 125 70 - 199 mg/dL [facility] [...] was last revised 2022. Testing performed by: [address] [address] Calcium 8.9 8.5 - 10.3 mg/dL [facility] Comment:Testing performed by : [address] [address] Blood 01/17/2025 6:04 AM CDT 01/17/2025 6:35 AM CDT us Rasta Garcia MD LAB BLOOD ORDERABLES Final Res ult [facility] [address] [facility] Department [place] [address] * Troponin T high-sensitivity 4-hour (01/16/2025 6:37 PM CDT) Trop T hs 13 <=22 ng/L Comment: Interpretive Data For further hscTnT resources including the diagnostic algorithm and an aid in interpretation, copy and paste this link: https://nrl.testcatalog.org/show/hsTrop Current Interpretive Data last revised 2020. Testing performed by: [address] [address] Trop T hs delta 7 ng/L [facility] Comment:Testing performed by : [address] [address] Trop T hs interp Equivocal [facility] Comment:Testing performed by : [address] [address] Blood 01/16/2025 6:37 PM CDT 01/16/2025 6:48 PM CDT Casey Paz MD LAB BLOOD ORDERABLES Final Result Performing Organization Address [facility] de Phone Number [facility] [address] [place] [address] * Troponin T high-sensitivity 2-hour (01/16/2025 5:09 PM CDT) Trop T hs <6 <=22 ng/L Comment: Interpretive Data For further hscTnT resources including the diagnostic algorithm and an aid in interpretation, copy and paste this link: https://nrl.testcatalog.org/show/hsTrop Current Interpretive Data last revised 2020. Testing performed by: [address] [address] Trop T hs delta 0 ng/L [facility] Comment:Testing performed by : [address] [address] Trop T hs interp Insignificant [facility] Comment:Testing performed by : [address] [address] Blood 01/16/2025 5:09 PM CDT 01/16/2025 5:15 PM CDT Casey Paz MD LAB BLOOD ORDERABLES Final Result Performing Organization Address [facility] Co de Phone Number [place] [address] [place] [address] * Post-Transfusion Reaction ABO/Rh (01/16/2025 3:58 PM CDT) Pathologist [facility] ABO/Rh Post-Transfusi on Reaction A Positive Comment:Testing performed by : [address] [address] Blood 01/16/2025 3:58 PM CDT 01/16/2025 3:59 PM CDT Casey Paz MD LAB BLOOD BANK TEST ORDERA BLES Final Result Performing Organization Address City/[facility] Co de Phone Number [facility] [address] [place] [address] * Pre-Transfusion Reaction ABO/Rh (01/16/2025 3:58 PM CDT) ABO/Rh Pre-Transfusio n Reaction A Positive Comment:Testing performed by : [address] [address] Blood 01/16/2025 3:58 PM CDT 01/16/2025 3:59 PM CDT Casey Paz MD LAB BLOOD BANK TEST ORDERA BLES Final Result Performing Organization Address [facility] Co de Phone Number [facility] [address] [place] [address] * Post TRXN SAMY (01/16/2025 3:58 PM CDT) Yesenia, direct, post-transfusi on Negative Comment:Testing performed by : [address] [address] Blood 01/16/2025 3:58 PM CDT 01/16/2025 3:59 PM CDT us Casey Paz MD LAB BLOOD BANK TEST ORDERA BLES Final Result Performing Organization Address [facility] Co de Phone Number KENYETTA[address] [place] [address] * Pre TRXN SAMY (01/16/2025 3:58 PM CDT) Direct yesenia pre-transfusio n reaction Negative Comment:Testing performed by : [address] [address] Blood 01/16/2025 3:58 PM CDT 01/16/2025 3:59 PM CDT Casey Paz MD LAB BLOOD BANK TEST ORDERA BLES Final Result Performing Organization Address City/[facility]/ZIP Co de Phone Number [facility] [address] [facility] Department [place] [address] * ECG 12 lead (01/16/2025 2:47 PM CDT) Ventricular Rate EKG/Min 79 BPM [facility] Atrial Rate 79 BPM [facility] TX-Interval (MSEC) 190 ms [facility] QRS-Interval (MSEC) 80 ms [facility] QT-Interval (MSEC) 410 ms [facility] QTc 470 ms [facility] P Bartow 48 degrees [facility] R [place] 22 degrees [facility] T [place] -16 degrees [facility] Diagnosis Normal sinus rhythm Nonspecific T wave abnormality Abnormal ECG When compared with ECG of 31-DEC-2024 23:51, Nonspecific T wave abnormality now evident in Anterolateral leads Confirmed by MIRYAM GARCÍA M.D. ([id number]) on 01/16/2025 6:28:08 PM [facility] 01/16/2025 2:47 PM CDT 01/16/2025 6:28 PM CDT Casey Paz MD ECG ORDERABLES Final Resu lt Performing Organization Address City/[facility]/ZIP Co de Phone Number [facility] * Troponin T high-sensitivity series (baseline, 2hr, 4hr, 6hr) (01/16/2025 2:40 PM CDT) Trop T hs <6 <=22 ng/L Comment: Interpretive Data For further hscTnT resources including the diagnostic algorithm and an aid in interpretation, copy and paste this link: https://nrl.testcatalog.org/show/hsTrop Current Interpretive Data last revised 2020. Testing performed by: [facility], [address] [place] [address]., [address] Blood 01/16/2025 2:40 PM CDT 01/16/2025 2:55 PM CDT us Casey Paz MD LAB BLOOD ORDERABLES Final Result [facility] [address] [facility] Department [place] [address] * (ABNORMAL) Differential, auto (01/16/2025 2:40 PM CDT) Neutrophil abs 5.04 1.50 - 6.50 K/cumm Comment:Testing performed by : [address] [address] Imm gran abs 0.05 0.00 - 0.10 K/cumm [facility] Comment:Testing performed by : [address] [address] Lymphocyte abs 2.46 0.80 - 3.30 K/cumm [facility] Comment:Testing performed by : [address] [address] Monocyte abs 0.91(H) 0.20 - 0.80 K/cumm [facility] Comment:Testing performed by : [address] [address] Eosinophil abs 0.41 0.00 - 0.50 K/cumm [facility] Comment:Testing performed by : [address] [address] Basophil abs 0.04 0.00 - 0.10 K/cumm [facility] Comment:Testing performed by : [address] [address] Neutrophil pct 56.6 % [facility] Comment: Interpretive Data Percent cell count reference ranges are not reported, since discordance with absolute values may lead to misinterpretation of CBC data. Current Interpretive Data was last revised on 2017. Testing performed by: [address] [address] Imm gran pct 0.6 % [facility] Comment: Interpretive Data Percent cell count reference ranges are not reported, since discordance with absolute values may lead to misinterpretation of CBC data. Current Interpretive Data was last revised on 2017. Testing performed by: [address] [address] Lymphocyte pct 27.6 % [facility] Comment: Interpretive Data Percent cell count reference ranges are not reported, since discordance with absolute values may lead to misinterpretation of CBC data. Current Interpretive Data was last revised on 2017. Testing performed by: [address] [address] Monocyte pct 10.2 % [facility] Comment: Interpretive Data Percent cell count reference ranges are not reported, since discordance with absolute values may lead to misinterpretation of CBC data. Current Interpretive Data was last revised on 2017. Testing performed by: [address] [address] Eosinophil pct 4.6 % [facility] Comment: Interpretive Data Percent cell count reference ranges are not reported, since discordance with absolute values may lead to misinterpretation of CBC data. Current Interpretive Data was last revised on 2017. Testing performed by: [address] [address] Basophil pct 0.4 % [facility] Comment: Interpretive Data Percent cell count reference ranges are not reported, since discordance with absolute values may lead to misinterpretation of CBC data. Current Interpretive Data was last revised on 2017. Testing performed by: [address] [address] Blood 01/16/2025 2:40 PM CDT 01/16/2025 2:55 PM CDT us Casey Paz MD LAB BLOOD ORDERABLES Final Result [facility] [address] [facility] Department [place] [address] * (ABNORMAL) CBC with auto differential (01/16/2025 2:40 PM CDT) WBC 8.91 3.80 - 9.90 K/cumm Comment:Testing performed by : [address] [address] Hgb 8.3(L) 13.0 - 17.5 g/dL [facility] Comment:Testing performed by : [address] [address] Hct 24.2(L) 38.9 - 50.3 % [facility] Comment:Testing performed by : [address] [address] Plt 316 150 - 400 K/cumm [facility] Comment:Testing performed by : [address] [address] MPV 10.1 9.1 - 12.3 fL [facility] Comment:Testing performed by : [address], [address] RBC 2.80(L) 4.30 - 5.80 M/cumm [facility] Comment:Testing performed by : [address] [address] MCV 86.4 81.3 - 96.4 fL [facility] Comment:Testing performed by : [address] [address] MCH 29.6 27.1 - 33.3 pg CERALEJANDRA Comment:Testing performed by : [address] [address] MCHC 34.3 32.3 - 35.7 g/dL [facility] Comment:Testing performed by : [address] [address] RDW CV 21.2(H) 11.1 - 14.9 % [facility] Comment:Testing performed by : [address], [address] RDW SD 66.2(H) 35.7 - 48.1 fL [facility] Comment:Testing performed by : [address] [address] NRBC abs 0.07(H) 0.00 - 0.01 K/cumm [facility] Comment:Testing performed by : [address], [address] Morphologic Screen Results confirmed by manual morphology review. [facility] Comment:Testing performed by : [address] [place] [address] Blood 01/16/2025 2:40 PM CDT 01/16/2025 2:55 PM CDT us Casey Paz MD LAB BLOOD ORDERABLES Final Result [facility] [address] [facility] Department [place] [address] * XR Chest 1 View (01/16/2025 2:20 [...] Bradley Rushing M.D. MF: CALDERON Report ID: [id number] Reading Location: [id number] Procedure Note Bradley Rushing, DO - 01/16/2025 [...] Bradley Rushing M.D. MF: CALDERON Report ID: [id number] Reading Location: [place] [address] Casey Paz MD IMG XR PROCEDURES Final Re sult * Transfuse RBC (01/16/2025 2:09 PM CDT) Blood Casey Paz MD BLOOD TRANSFUSION ORDERABL ES Final Result Performing Organization Address [facility] Co de Phone Number [facility] [address] [place] [address] * Prepare RBC: 1 Units (01/16/2025 11:30 AM CDT) Units requested 1 Comment:Testing performed by : [address] [address] Units requested Ready [facility] Comment:Testing performed by : [address] [address] Unit Number [id number] Product code [id number] [facility] Blood Expiration Date [id number] [facility] Product Blood Type (for scanning) 6200 [facility] Product Blood Type APOS [facility] Dispense Status DISPENSED [facility] Blood 01/16/2025 11:3 0 AM CDT 01/16/2025 11:29 AM CDT Casey Paz MD BLOOD BANK PRODUCT ORDERAB LES Final Result Performing Organization Address [facility] Co de Phone Number [facility] [place] [address] * ABO/Rh (01/16/2025 10:42 AM CDT) ABO/Rh A Positive Comment:Testing performed by : [address] [address] Blood 01/16/2025 10:4 2 AM CDT 01/16/2025 10:47 AM CDT Narrative [facility] - 01/16/2025 11:25 AM CDT Has the patient had Daratumumab or Isatuximab in the past 6 months?->Unknown Casey Paz MD LAB BLOOD BANK TEST ORDERA BLES Final Result Performing Organization Address [facility] de Phone Number [address] [address] * Crossmatch (01/16/2025 10:42 AM CDT) Crossmatch Compatible [facility] Unit number for crossmatch [id number] [facility] Crossmatch Compatible [facility] Unit number for crossmatch [id number] [facility] Blood 01/16/2025 10:4 2 AM CDT 01/16/2025 10:47 AM CDT Casey Paz MD LAB BLOOD BANK TEST ORDERA BLES Final Result Performing Organization Address [facility] de Phone Number [address] [address] * Antibody screen (01/16/2025 10:42 AM CDT) Yesenia, indirect, Gel Interpretation Negative [facility] Comment:Testing performed by : [facility], [address] [place] [address]., [address] Blood 01/16/2025 10:4 2 AM CDT 01/16/2025 10:47 AM CDT Narrative [facility] 01/16/2025 11:25 AM CDT Has the patient had Daratumumab or Isatuximab in the past 6 months?->Unknown Casey Paz MD LAB BLOOD BANK TEST ORDERA BLES Final Result Performing Organization Address [facility]/ZIP Co de Phone Number [facility] Department [place] [address] * eGFR (01/16/2025 2:59 AM CDT) Pathologist [facility] eGFR >90 >=60 mL/min/1. 73 m2 Comment: [...] was last reviewed 2021. Testing performed by: [address] [address] Blood 01/16/2025 2:59 AM CDT 01/16/2025 3:12 AM CDT us Rasta Garcia MD LAB BLOOD ORDERABLES Final Res ult Performing Organization Address City/[facility] Co de Phone Number KENYETTA[address] Department [place] [address] * (ABNORMAL) Differential, auto (01/16/2025 2:59 AM CDT) [facility] Neutrophil abs 4.31 1.50 - 6.50 K/cumm Comment:Testing performed by : [address] [address] Imm gran abs 0.03 0.00 - 0.10 K/cumm [facility] Comment:Testing performed by : [address] [address] Lymphocyte abs 3.04 0.80 - 3.30 K/cumm [facility] Comment:Testing performed by : [address], [place]., [address] Monocyte abs 0.81(H) 0.20 - 0.80 K/cumm [facility] Comment:Testing performed by : [address], [place]., [address] Eosinophil abs 0.38 0.00 - 0.50 K/cumm [facility] Comment:Testing performed by : [address], [place]., [address] Basophil abs 0.04 0.00 - 0.10 K/cumm [facility] Comment:Testing performed by : [address] [address] Neutrophil pct 50.1 % [facility] Comment: Interpretive Data Percent cell count reference ranges are not reported, since discordance with absolute values may lead to misinterpretation of CBC data. Current Interpretive Data was last revised on 2017. Testing performed by: [address] [address] Imm gran pct 0.3 % [facility] Comment: Interpretive Data Percent cell count reference ranges are not reported, since discordance with absolute values may lead to misinterpretation of CBC data. Current Interpretive Data was last revised on 2017. Testing performed by: [address] [address] Lymphocyte pct 35.3 % [facility] Comment: Interpretive Data Percent cell count reference ranges are not reported, since discordance with absolute values may lead to misinterpretation of CBC data. Current Interpretive Data was last revised on 2017. Testing performed by: [address] [address] Monocyte pct 9.4 % [facility] Comment: Interpretive Data Percent cell count reference ranges are not reported, since discordance with absolute values may lead to misinterpretation of CBC data. Current Interpretive Data was last revised on 2017. Testing performed by: [address] [address] Eosinophil pct 4.4 % [facility] Comment: Interpretive Data Percent cell count reference ranges are not reported, since discordance with absolute values may lead to misinterpretation of CBC data. Current Interpretive Data was last revised on 2017. Testing performed by: [address] [address] Basophil pct 0.5 % [facility] Comment: Interpretive Data Percent cell count reference ranges are not reported, since discordance with absolute values may lead to misinterpretation of CBC data. Current Interpretive Data was last revised on 2017. Testing performed by: [address] [address] Blood 01/16/2025 2:59 AM CDT 01/16/2025 3:13 AM CDT us Rasta Garcia MD LAB BLOOD ORDERABLES Final Res ult [facility] [place] [address] * (ABNORMAL) CBC with auto differential (01/16/2025 2:59 AM CDT) WBC 8.61 3.80 - 9.90 K/cumm Comment:Testing performed by : [address] [address] Hgb 7.0(L) 13.0 - 17.5 g/dL [facility] Comment:Testing performed by : [address] [address] Hct 19.8(L) 38.9 - 50.3 % [facility] Comment:Testing performed by : [address] [address] Plt 276 150 - 400 K/cumm [facility] Comment:Testing performed by : [address] [address] MPV 10.1 9.1 - 12.3 fL [facility] Comment:Testing performed by : [address] [address] RBC 2.31(L) 4.30 - 5.80 M/cumm [facility] Comment:Testing performed by : [address] [address] MCV 85.7 81.3 - 96.4 fL [facility] Comment:Testing performed by : [address] [address] MCH 30.3 27.1 - 33.3 pg [facility] Comment:Testing performed by : [address] [address] MCHC 35.4 32.3 - 35.7 g/dL [facility] Comment:Testing performed by : [address] [address] RDW CV 21.6(H) 11.1 - 14.9 % [facility] Comment:Testing performed by : [address] [address] RDW SD 65.4(H) 35.7 - 48.1 fL [facility] Comment:Testing performed by : [address] [address] NRBC abs 0.07(H) 0.00 - 0.01 K/cumm [facility] Comment:Testing performed by : [address] [address] Morphologic Screen Results confirmed by manual morphology review. [facility] Comment:Testing performed by : [address] [address] Blood 01/16/2025 2:59 AM CDT 01/16/2025 3:13 AM CDT us Rasta Garcia MD LAB BLOOD ORDERABLES Final Res ult [facility] [address] [facility] [place] [address] * (ABNORMAL) Reticulocyte Count (01/16/2025 2:59 AM CDT) Retics, absolute 431(H) 20 - 87 K/cumm Comment:Testing performed by : [address] [address] Retics 18.7(H) 0.4 - 2.9 % [facility] Comment:Testing performed by : [address] [address] Reticulocyte Hgb 28.0(L) 30.5 - 38.0 pg [facility] Comment:Testing performed by : [address] [address] Blood 01/16/2025 2:59 AM CDT 01/16/2025 3:13 AM CDT us Rasta Garcia MD LAB BLOOD ORDERABLES Final Res ult [facility] [address] [facility] [place] [address] * (ABNORMAL) Basic metabolic panel (01/16/2025 2:59 AM CDT) Sodium 138 135 - 145 mmol/L Comment:Testing performed by : [address] [address] Potassium, pl 3.2(L) 3.3 - 4.9 mmol/L [facility] Comment:Testing performed by : [address] [address] Chloride 103 97 - 110 mmol/L [place] Comment:Testing performed by : [address] [address] CO2 25 22 - 32 mmol/L [place] Comment:Testing performed by : [address] [address] Anion gap 10 2 - 15 mmol/L [place] Comment:Testing performed by : [address] [address] BUN 3(L) 6 - 25 mg/dL [place] Comment:Testing performed by : [address] [address] Creatinine 0.49(L) 0.80 - 1.30 mg/dL [place] Comment:Testing performed by : [address] [address] Glucose 154 70 - 199 mg/dL [facility] [...] was last revised 2022. Testing performed by: [address] [address] Calcium 8.7 8.5 - 10.3 mg/dL [place] Comment:Testing performed by : [address] [address] Blood 01/16/2025 2:59 AM CDT 01/16/2025 3:12 AM CDT Rasta Garcia MD LAB BLOOD ORDERABLES Final Res ult [facility] [address] [facility] Department [place] [address] * (ABNORMAL) Blood smear review (01/15/2025 5:38 AM CDT) RBC morphology Present(A) Comment:Testing performed by : [address] [address] Hypochromasia 3-7/HPF(A) [place] Comment:Testing performed by : [address] [address] Anisocytosis Moderate(A) [place] Comment:Testing performed by : [address] [address] Schistocytes 1-2/HPF(A) [place] Comment:Testing performed by : [address] [address] Sickle cells 1-2/HPF(A) [place] Comment:Testing performed by : [address] [address] Elliptocytes 8-15/HPF(A) [place] Comment:Testing performed by : [address] [address] Target cells 3-7/HPF(A) [place] Comment:Testing performed by : [address] [address] Acanthocytes 3-7/HPF(A) [place] Comment:Testing performed by : [address] [address] Platelet estimate Adequate [place] Comment:Testing performed by : [address] [address] Blood 01/15/2025 5:38 AM CDT 01/15/2025 6:12 AM CDT us Rasta Garcia MD LAB BLOOD ORDERABLES Final Res ult [facility] Department [place] [address] * eGFR (01/15/2025 5:38 AM CDT) eGFR [...] was last reviewed 2021. Testing performed by: [address] [address] Blood 01/15/2025 5:38 AM CDT 01/15/2025 6:12 AM CDT us Rasta Garcia MD LAB BLOOD ORDERABLES Final Res ult [facility] [address] [facility] Department [place] [address] * (ABNORMAL) Differential, auto (01/15/2025 5:38 AM CDT) Neutrophil abs 3.92 1.50 - 6.50 K/cumm Comment:Testing performed by : [address] [address] Imm gran abs 0.07 0.00 - 0.10 K/cumm [place] Comment:Testing performed by : [address] [address] Lymphocyte abs 3.68(H) 0.80 - 3.30 K/cumm [place] Comment:Testing performed by : [address] [address] Monocyte abs 0.80 0.20 - 0.80 K/cumm [place] Comment:Testing performed by : [address] [address] Eosinophil abs 0.40 0.00 - 0.50 K/cumm [place] Comment:Testing performed by : [address] [address] Basophil abs 0.04 0.00 - 0.10 K/cumm [place] Comment:Testing performed by : [address] [address] Neutrophil pct 44.0 % [facility] Comment: Interpretive Data Percent cell count reference ranges are not reported, since discordance with absolute values may lead to misinterpretation of CBC data. Current Interpretive Data was last revised on 2017. Testing performed by: [address] [address] Imm gran pct 0.8 % [facility] Comment: Interpretive Data Percent cell count reference ranges are not reported, since discordance with absolute values may lead to misinterpretation of CBC data. Current Interpretive Data was last revised on 2017. Testing performed by: [address] [address] Lymphocyte pct 41.3 % [facility] Comment: Interpretive Data Percent cell count reference ranges are not reported, since discordance with absolute values may lead to misinterpretation of CBC data. Current Interpretive Data was last revised on 2017. Testing performed by: [address] [address] Monocyte pct 9.0 % [facility] Comment: Interpretive Data Percent cell count reference ranges are not reported, since discordance with absolute values may lead to misinterpretation of CBC data. Current Interpretive Data was last revised on 2017. Testing performed by: [address] [address] Eosinophil pct 4.5 % [facility] Comment: Interpretive Data Percent cell count reference ranges are not reported, since discordance with absolute values may lead to misinterpretation of CBC data. Current Interpretive Data was last revised on 2017. Testing performed by: [address] [address] Basophil pct 0.4 % [facility] Comment: Interpretive Data Percent cell count reference ranges are not reported, since discordance with absolute values may lead to misinterpretation of CBC data. Current Interpretive Data was last revised on 2017. Testing performed by: [address] [address] Blood 01/15/2025 5:38 AM CDT 01/15/2025 6:12 AM CDT us Rasta Garcia MD LAB BLOOD ORDERABLES Final Res ult [facility] [address] [facility] Department [place] [address] * (ABNORMAL) CBC with auto differential (01/15/2025 5:38 AM CDT) WBC 8.91 3.80 - 9.90 K/cumm Comment:Testing performed by : [address], [address] Hgb 7.3(L) 13.0 - 17.5 g/dL [place] Comment:Testing performed by : [address] [address] Hct 21.4(L) 38.9 - 50.3 % [facility] Comment:Testing performed by : [address] [address] Plt 316 150 - 400 K/cumm [place] Comment:Testing performed by : [address], [address] MPV 10.1 9.1 - 12.3 fL [place] Comment:Testing performed by : [address] [address] RBC 2.46(L) 4.30 - 5.80 M/cumm [place] Comment:Testing performed by : [address] [address] MCV 87.0 81.3 - 96.4 fL [place] Comment:Testing performed by : [address], [address] MCH 29.7 27.1 - 33.3 pg [place] Comment:Testing performed by : [address], [address] MCHC 34.1 32.3 - 35.7 g/dL [place] Comment:Testing performed by : [address], [address] RDW CV 21.6(H) 11.1 - 14.9 % [facility] Comment:Testing performed by : [address], [address] RDW SD 67.9(H) 35.7 - 48.1 fL [place] Comment:Testing performed by : [address] [address] NRBC abs 0.13(H) 0.00 - 0.01 K/cumm [facility] Comment:Testing performed by : [address] [place] [address] Blood 01/15/2025 5:38 AM CDT 01/15/2025 6:12 AM CDT Rasta Garcia MD LAB BLOOD ORDERABLES Edited Re sult - Final Performing Organization Address [facility] de Phone Number K[address] [address] * (ABNORMAL) Reticulocyte Count (01/15/2025 5:38 AM CDT) Pathologist [facility], absolute 497(H) 20 - 87 K/cumm Comment:Testing performed by : [address] [address] Retics 20.2(H) 0.4 - 2.9 % [place] Comment:Testing performed by : [address] [address] Reticulocyte Hgb 28.3(L) 30.5 - 38.0 pg [place] Comment:Testing performed by : [address] [address] Blood 01/15/2025 5:38 AM CDT 01/15/2025 6:12 AM CDT us Rasta Garcia MD LAB BLOOD ORDERABLES Final Res ult Performing Organization Address [facility] de Phone Number [address] [address] * (ABNORMAL) Basic metabolic panel (01/15/2025 5:38 AM CDT) Pathologist [facility] Sodium 136 135 - 145 mmol/L Comment:Testing performed by : [address] [address] Potassium, pl 3.2(L) 3.3 - 4.9 mmol/L [facility] Comment:Testing performed by : [address] [address] Chloride 102 97 - 110 mmol/L [place] Comment:Testing performed by : [address] [address] CO2 24 22 - 32 mmol/L [place] Comment:Testing performed by : [address] [address] Anion gap 10 2 - 15 mmol/L [place] Comment:Testing performed by : [address] [address] BUN 3(L) 6 - 25 mg/dL [place] Comment:Testing performed by : [address] [address] Creatinine 0.44(L) 0.80 - 1.30 mg/dL [facility] Comment:Testing performed by : [address] [address] Glucose 116 70 - 199 mg/dL [facility] [...] was last revised 2022. Testing performed by: [address] [address] Calcium 9.0 8.5 - 10.3 mg/dL [place] Comment:Testing performed by : [address] [address] Blood 01/15/2025 5:38 AM CDT 01/15/2025 6:12 AM CDT us Rasta Garcia MD LAB BLOOD ORDERABLES Final Res ult [facility] [address] [facility] Department [place] [address] * eGFR (01/14/2025 6:18 AM CDT) Pathologist [facility] eGFR >90 >=60 mL/min/1. 73 m2 Comment: [...] was last reviewed 2021. Testing performed by: [address] [address] Blood 01/14/2025 6:18 AM CDT 01/14/2025 6:28 AM CDT us Rasta Garcia MD LAB BLOOD ORDERABLES Final Res ult [facility] [address] [facility] Department [place] [address] * Differential, auto (01/14/2025 6:18 AM CDT) Pathologist [facility] Neutrophil abs 4.75 1.50 - 6.50 K/cumm Comment:Testing performed by : [address] [address] Imm gran abs 0.04 0.00 - 0.10 K/cumm [facility] Comment:Testing performed by : [address] [address] Lymphocyte abs 3.30 0.80 - 3.30 K/cumm [place] Comment:Testing performed by : [address] [address] Monocyte abs 0.76 0.20 - 0.80 K/cumm [facility] Comment:Testing performed by : [address] [address] Eosinophil abs 0.14 0.00 - 0.50 K/cumm [facility] Comment:Testing performed by : [address] [address] Basophil abs 0.04 0.00 - 0.10 K/cumm [facility] Comment:Testing performed by : [address] [address] Neutrophil pct 52.7 % [facility] Comment: Interpretive Data Percent cell count reference ranges are not reported, since discordance with absolute values may lead to misinterpretation of CBC data. Current Interpretive Data was last revised on 2017. Testing performed by: [address] [address] Imm gran pct 0.4 % [facility] Comment: Interpretive Data Percent cell count reference ranges are not reported, since discordance with absolute values may lead to misinterpretation of CBC data. Current Interpretive Data was last revised on 2017. Testing performed by: [address] [address] Lymphocyte pct 36.5 % [facility] Comment: Interpretive Data Percent cell count reference ranges are not reported, since discordance with absolute values may lead to misinterpretation of CBC data. Current Interpretive Data was last revised on 2017. Testing performed by: [address] [address] Monocyte pct 8.4 % [facility] Comment: Interpretive Data Percent cell count reference ranges are not reported, since discordance with absolute values may lead to misinterpretation of CBC data. Current Interpretive Data was last revised on 2017. Testing performed by: [address] [address] Eosinophil pct 1.6 % [facility] Comment: Interpretive Data Percent cell count reference ranges are not reported, since discordance with absolute values may lead to misinterpretation of CBC data. Current Interpretive Data was last revised on 2017. Testing performed by: [address] [address] Basophil pct 0.4 % [facility] Comment: Interpretive Data Percent cell count reference ranges are not reported, since discordance with absolute values may lead to misinterpretation of CBC data. Current Interpretive Data was last revised on 2017. Testing performed by: [address] [address] Blood 01/14/2025 6:18 AM CDT 01/14/2025 6:28 AM CDT us Rasta Garcia MD LAB BLOOD ORDERABLES Final Res ult [facility] [address] [facility] Department [place] [address] * (ABNORMAL) CBC with auto differential (01/14/2025 6:18 AM CDT) WBC 9.03 3.80 - 9.90 K/cumm Comment:Testing performed by : [address] [address] Hgb 7.5(L) 13.0 - 17.5 g/dL [facility] Comment:Testing performed by : [address] [address] Hct 21.8(L) 38.9 - 50.3 % [facility] Comment:Testing performed by : [address] [address] Plt 287 150 - 400 K/cumm [facility] Comment:Testing performed by : [address] [address] MPV 10.1 9.1 - 12.3 fL [facility] [facility] Comment:Testing performed by : [address] [address] RBC 2.47(L) 4.30 - 5.80 M/cumm [facility] Comment:Testing performed by : [address] [address] MCV 88.3 81.3 - 96.4 fL [place] [facility] Comment:Testing performed by : [address] [address] MCH 30.4 27.1 - 33.3 pg [place] [facility] Comment:Testing performed by : [address] [address] MCHC 34.4 32.3 - 35.7 g/dL [facility] [facility] Comment:Testing performed by : [address] [address] RDW CV 22.0(H) 11.1 - 14.9 % [facility] Comment:Testing performed by : [address] [address] RDW SD 69.9(H) 35.7 - 48.1 fL [place] Comment:Testing performed by : [address] [address] NRBC abs 0.18(H) 0.00 - 0.01 K/cumm [facility] Comment:Testing performed by : [address], [address] Morphologic Screen Results confirmed by manual morphology review. [facility] Comment:Testing performed by : [address] [address] Blood 01/14/2025 6:18 AM CDT 01/14/2025 6:28 AM CDT us Rasta Garcia MD LAB BLOOD ORDERABLES Edited Re sult - Final [facility] [address] [facility] Department of [facility] [place], [place] [id number] * (ABNORMAL) Reticulocyte Count (01/14/2025 6:18 AM CDT) Retics, absolute 537(H) 20 - 87 K/cumm Comment:Testing performed by : [address] [address] Retics 21.5(H) 0.4 - 2.9 % [facility] Comment:Testing performed by : [address] [address] Reticulocyte Hgb 28.4(L) 30.5 - 38.0 pg [facility] Comment:Testing performed by : [address] [address] Blood 01/14/2025 6:18 AM CDT 01/14/2025 6:28 AM CDT us Rasta Garcia MD LAB BLOOD ORDERABLES Final Res ult [facility] [address] [facility] Department [place] [address] * (ABNORMAL) Basic metabolic panel (01/14/2025 6:18 AM CDT) Sodium 137 135 - 145 mmol/L Comment:Testing performed by : [address] [address] Potassium, pl 3.5 3.3 - 4.9 mmol/L [facility] Comment:Testing performed by : [address] [address] Chloride 103 97 - 110 mmol/L [place] Comment:Testing performed by : [address] [address] CO2 24 22 - 32 mmol/L [facility] Comment:Testing performed by : [address] [address] Anion gap 10 2 - 15 mmol/L [place] Comment:Testing performed by : [address] [address] BUN 2(L) 6 - 25 mg/dL [facility] Comment:Testing performed by : [address] [address] Creatinine 0.45(L) 0.80 - 1.30 mg/dL [facility] Comment:Testing performed by : [address] [address] Glucose 141 70 - 199 mg/dL [facility] [...] last revised 2022. Testing performed by: [facility], [address] [place] [address]., [address] Calcium 8.8 8.5 - 10.3 mg/dL [facility] Comment:Testing performed by : [facility], [address] [place] [address]., [address] Blood 01/14/2025 6:18 AM CDT 01/14/2025 6:28 AM CDT us Rasta Garcia MD LAB BLOOD ORDERABLES Final Res ult [place] [facility] [address] [facility] Department [place] [address] * XR Chest PA Lateral 2 Views [...] Gee Laboy D.O. AP: AP Report ID: [id number] Reading Location: [id number] Procedure Note Benoit Geecaty Duarte, DO - [...] Gee Laboy D.O. AP: AP Report ID: [id number] Reading Location: [place] [address] Casey Paz MD IM XR PROCEDURES Final [...] was last reviewed 2021. Testing performed by: [address] [address] Blood 01/11/2025 1:12 PM CDT 01/11/2025 1:15 PM CDT us Rasta Garcia MD LAB BLOOD ORDERABLES Final Res ult [facility] [facility] of [facility] [place], [place] [id number] * (ABNORMAL) CBC with auto differential (01/11/2025 1:12 PM CDT) WBC 10.21(H) 3.80 - 9.90 K/cumm Comment:Testing performed by : [address] [address] Hgb 8.3(L) 13.0 - 17.5 g/dL [facility] Comment:Testing performed by : [address] [address] Hct 24.3(L) 38.9 - 50.3 % [facility] SE[facility] Comment:Testing performed by : [address] [address] Plt 379 150 - 400 K/cumm [facility] Comment:Testing performed by : [address] [address] MPV 9.9 9.1 - 12.3 fL [facility] [facility] Comment:Testing performed by : [address] [address] RBC 2.82(L) 4.30 - 5.80 M/cumm [facility] Comment:Testing performed by : [address] [place] [address] MCV 86.2 81.3 - 96.4 fL [facility] [facility] Comment:Testing performed by : [address] [address] MCH 29.4 27.1 - 33.3 pg [facility] [facility] Comment:Testing performed by : [address] [address] MCHC 34.2 32.3 - 35.7 g/dL [facility] [facility] Comment:Testing performed by : [address] [address] RDW CV 23.4(H) 11.1 - 14.9 % [facility] Comment:Testing performed by : [address] [address] RDW SD 70.7(H) 35.7 - 48.1 fL [facility] [facility] Comment:Testing performed by : [address] [address] NRBC abs 0.23(H) 0.00 - 0.01 K/cumm [facility] Comment:Testing performed by : [address] [address] Blood 01/11/2025 1:12 PM CDT 01/11/2025 1:15 PM CDT us Rasta Garcia MD LAB BLOOD ORDERABLES Edited Re sult - Final [facility] [address] [facility] Department [place] [address] * (ABNORMAL) Manual Differential (01/11/2025 1:12 PM CDT) Differential Manual Comment:Testing performed by : [address] [address] Cells Counted 100 [facility] Comment:Testing performed by : [address] [address] Neutrophil abs 4.90 1.50 - 6.50 K/cumm [facility] Comment:Testing performed by : [address] [address] Lymphocyte abs 4.39(H) 0.80 - 3.30 K/cumm [facility] Comment:Testing performed by : [address] [address] Monocyte abs 0.51 0.20 - 0.80 K/cumm [facility] Comment:Testing performed by : [address], [place]., [address] Eosinophil abs 0.41 0.00 - 0.50 K/cumm [facility] Comment:Testing performed by : [address] [address] Neutrophil pct 48.0 % [facility] Comment: Interpretive Data Percent cell count reference ranges are not reported, since discordance with absolute values may lead to misinterpretation of CBC data. Current Interpretive Data was last revised on 2017. Testing performed by: [address] [address] Lymphocyte pct 43.0 % [facility] Comment: Interpretive Data Percent cell count reference ranges are not reported, since discordance with absolute values may lead to misinterpretation of CBC data. Current Interpretive Data was last revised on 2017. Testing performed by: [address] [address] Monocyte pct 5.0 % [facility] Comment: Interpretive Data Percent cell count reference ranges are not reported, since discordance with absolute values may lead to misinterpretation of CBC data. Current Interpretive Data was last revised on 2017. Testing performed by: [address] [address] Eosinophil pct 4.0 % [facility] Comment: Interpretive Data Percent cell count reference ranges are not reported, since discordance with absolute values may lead to misinterpretation of CBC data. Current Interpretive Data was last revised on 2017. Testing performed by: [address] [address] RBC morphology Present(A) [facility] Comment:Testing performed by : [address] [address] Polychromasia 3-7/HPF(A) [facility] Comment:Testing performed by : [address], [place]., [address] Anisocytosis Marked(A) [facility] Comment:Testing performed by : [address], [place]., [address] Sickle cells 1-2/HPF(A) [facility] Comment:Testing performed by : [address], [place]., [address] Elliptocytes 8-15/HPF(A) [facility] Comment:Testing performed by : [address], [place]., [address] Teardrop cells 3-7/HPF(A) [facility] Comment:Testing performed by : [address], [place]., [address] Platelet morphology Normal [facility] Comment:Testing performed by : [address], [place]., [address] Platelet estimate Adequate [facility] Comment:Testing performed by : [address] [address] Blood 01/11/2025 1:12 PM CDT 01/11/2025 1:15 PM CDT us Rasta Garcia MD LAB BLOOD ORDERABLES Final Res ult [facility] [address] [facility] Department [place] [address] * (ABNORMAL) Reticulocyte Count (01/11/2025 1:12 PM CDT) Retics, absolute 585(H) 20 - 87 K/cumm Comment:Testing performed by : [address], [place]., [address] Retics 20.8(H) 0.4 - 2.9 % [facility] Comment:Testing performed by : [address], [place]., [address] Reticulocyte Hgb 30.1(L) 30.5 - 38.0 pg [facility] Comment:Testing performed by : [address], [place]., [address] Blood 01/11/2025 1:12 PM CDT 01/11/2025 1:15 PM CDT us Rasta Garcia MD LAB BLOOD ORDERABLES Final Res ult [facility] [address] [facility] [place] [address] * (ABNORMAL) Basic metabolic panel (01/11/2025 1:12 PM CDT) Sodium 138 135 - 145 mmol/L Comment:Testing performed by : [address] [address] Potassium, pl 3.7 3.3 - 4.9 mmol/L [facility] Comment:Testing performed by : [address] [address] Chloride 103 97 - 110 mmol/L [place] Comment:Testing performed by : [address] [address] CO2 24 22 - 32 mmol/L [place] Comment:Testing performed by : [address] [address] Anion gap 11 2 - 15 mmol/L [facility] Comment:Testing performed by : [address] [address] BUN 2(L) 6 - 25 mg/dL [place] Comment:Testing performed by : [address] [address] Creatinine 0.50(L) 0.80 - 1.30 mg/dL [facility] Comment:Testing performed by : [address] [address] Glucose 110 70 - 199 mg/dL [facility] [...] last revised 2022. Testing performed by: [facility], [address] [place] [address]., [address] Calcium 8.7 8.5 - 10.3 mg/dL [facility] Comment:Testing performed by : [facility], [address] [place] [address]., [address] Blood 01/11/2025 1:12 PM CDT 01/11/2025 1:15 PM CDT us Rasta Garcia MD LAB BLOOD ORDERABLES Final Res ult [place] [facility] [address] [facility] [place] [address] * XR Chest 1 View (01/10/2025 1:39 [...] Anne Merchant M.D. FT: FT Report ID: [id number] Reading Location: [id number] Procedure Note Anne Hernandes MD - 08/18/2025 [...] Anne Merchant M.D. FT: FT Report ID: [id number] Reading Location: [place] [address] Jaya Garcia DO IMG XR PROCEDURES Final [...] last reviewed 2021. Testing performed by: [facility], [address] [place] [address], [place]., [address] Blood 01/10/2025 10:2 9 AM CDT 01/10/2025 10:53 AM CDT us Rasta Garcia MD LAB BLOOD ORDERABLES Final Res ult [facility] [address] [facility] [place] [address] * (ABNORMAL) Differential, auto (01/10/2025 10:29 AM CDT) Neutrophil abs 4.63 1.50 - 6.50 K/cumm Comment:Testing performed by : [address] [address] Imm gran abs 0.08 0.00 - 0.10 K/cumm [facility] Comment:Testing performed by : [address] [address] Lymphocyte abs 4.22(H) 0.80 - 3.30 K/cumm [place] Comment:Testing performed by : [address] [address] Monocyte abs 0.96(H) 0.20 - 0.80 K/cumm [facility] Comment:Testing performed by : [address] [address] Eosinophil abs 0.20 0.00 - 0.50 K/cumm [facility] Comment:Testing performed by : [address] [address] Basophil abs 0.06 0.00 - 0.10 K/cumm [place] Comment:Testing performed by : [address] [address] Neutrophil pct 45.5 % [facility] Comment: Interpretive Data Percent cell count reference ranges are not reported, since discordance with absolute values may lead to misinterpretation of CBC data. Current Interpretive Data was last revised on 2017. Testing performed by: [address] [address] Imm gran pct 0.8 % [facility] Comment: Interpretive Data Percent cell count reference ranges are not reported, since discordance with absolute values may lead to misinterpretation of CBC data. Current Interpretive Data was last revised on 2017. Testing performed by: [address] [address] Lymphocyte pct 41.6 % [facility] Comment: Interpretive Data Percent cell count reference ranges are not reported, since discordance with absolute values may lead to misinterpretation of CBC data. Current Interpretive Data was last revised on 2017. Testing performed by: [address] [address] Monocyte pct 9.5 % [facility] Comment: Interpretive Data Percent cell count reference ranges are not reported, since discordance with absolute values may lead to misinterpretation of CBC data. Current Interpretive Data was last revised on 2017. Testing performed by: [address] [address] Eosinophil pct 2.0 % [facility] Comment: Interpretive Data Percent cell count reference ranges are not reported, since discordance with absolute values may lead to misinterpretation of CBC data. Current Interpretive Data was last revised on 2017. Testing performed by: [address] [address] Basophil pct 0.6 % [facility] Comment: Interpretive Data Percent cell count reference ranges are not reported, since discordance with absolute values may lead to misinterpretation of CBC data. Current Interpretive Data was last revised on 2017. Testing performed by: [address] [address] Blood 01/10/2025 10:2 9 AM CDT 01/10/2025 10:52 AM CDT us Rasta Garcia MD LAB BLOOD ORDERABLES Final Res ult [facility] [address] [facility] [place] [address] * (ABNORMAL) CBC with auto differential (01/10/2025 10:29 AM CDT) WBC 10.15(H) 3.80 - 9.90 K/cumm Comment:Testing performed by : [address] [address] Hgb 7.5(L) 13.0 - 17.5 g/dL [facility] Comment:Testing performed by : [address], [address] Hct 22.0(L) 38.9 - 50.3 % [facility] Comment:Testing performed by : [address] [address] Plt 324 150 - 400 K/cumm [facility] Comment:Testing performed by : [address], [address] MPV 10.3 9.1 - 12.3 fL [facility] Comment:Testing performed by : [address], [address] RBC 2.51(L) 4.30 - 5.80 M/cumm [facility] Comment:Testing performed by : [address], [address] MCV 87.6 81.3 - 96.4 fL [facility] Comment:Testing performed by : [address], [address] MCH 29.9 27.1 - 33.3 pg [facility] Comment:Testing performed by : [address], [address] MCHC 34.1 32.3 - 35.7 g/dL [facility] Comment:Testing performed by : [address], [address] RDW CV 22.9(H) 11.1 - 14.9 % [facility] Comment:Testing performed by : [address], [address] RDW SD 69.4(H) 35.7 - 48.1 fL [facility] Comment:Testing performed by : [address], [address] NRBC abs 0.15(H) 0.00 - 0.01 K/cumm [facility] Comment:Testing performed by : [address], [address] Morphologic Screen Results confirmed by manual morphology review. [facility] Comment:Testing performed by : [address] [address] Blood 01/10/2025 10:2 9 AM CDT 01/10/2025 10:52 AM CDT us Rasta Garcia MD LAB BLOOD ORDERABLES Edited Re sult - Final Performing Organization Address [facility]/ZIP Co de Phone Number [facility] [address] [address] * (ABNORMAL) Reticulocyte Count (01/10/2025 10:29 AM CDT) Retics, absolute 624(H) 20 - 87 K/cumm Comment:Testing performed by : [address] [address] Retics 21.5(H) 0.4 - 2.9 % [facility] Comment:Testing performed by : [address] [address] Reticulocyte Hgb 28.1(L) 30.5 - 38.0 pg [facility] Comment:Testing performed by : [address] [address] Blood 01/10/2025 10:2 9 AM CDT 01/10/2025 10:52 AM CDT us Rasta Garcia MD LAB BLOOD ORDERABLES Final Res ult Performing Organization Address [facility] Co de Phone Number [address] [address] * (ABNORMAL) Basic metabolic panel (01/10/2025 10:29 AM CDT) Pathologist [facility] Sodium 138 135 - 145 mmol/L Comment:Testing performed by : [address] [address] Potassium, pl 3.5 3.3 - 4.9 mmol/L [facility] Comment:Testing performed by : [address] [address] Chloride 104 97 - 110 mmol/L [facility] Comment:Testing performed by : [address] [address] CO2 24 22 - 32 mmol/L [facility] Comment:Testing performed by : [address] [address] Anion gap 10 2 - 15 mmol/L [facility] Comment:Testing performed by : [address] [address] BUN 2(L) 6 - 25 mg/dL [facility] Comment:Testing performed by : [address] [address] Creatinine 0.50(L) 0.80 - 1.30 mg/dL [facility] Comment:Testing performed by : [address] [address] Glucose 98 70 - 199 mg/dL [facility] [...] was last revised 2022. Testing performed by: [address] [address] Calcium 8.4(L) 8.5 - 10.3 mg/dL [facility] Comment:Testing performed by : [address] [address] Blood 01/10/2025 10:2 9 AM CDT 01/10/2025 10:53 AM CDT us Rasta Garcia MD LAB BLOOD ORDERABLES Final Res ult [facility] SHETTY [address] [facility] Department [place] [address] * (ABNORMAL) Differential, auto (01/09/2025 4:55 AM CDT) Neutrophil abs 4.56 1.50 - 6.50 K/cumm Comment:Testing performed by : [address] [address] Imm gran abs 0.05 0.00 - 0.10 K/cumm [facility] Comment:Testing performed by : [address] [address] Lymphocyte abs 3.68(H) 0.80 - 3.30 K/cumm [facility] Comment:Testing performed by : [address] [address] Monocyte abs 1.48(H) 0.20 - 0.80 K/cumm [facility] Comment:Testing performed by : [address] [address] Eosinophil abs 0.24 0.00 - 0.50 K/cumm [facility] Comment:Testing performed by : [address] [address] Basophil abs 0.06 0.00 - 0.10 K/cumm [facility] Comment:Testing performed by : [address] [address] Neutrophil pct 45.3 % [facility] Comment: Interpretive Data Percent cell count reference ranges are not reported, since discordance with absolute values may lead to misinterpretation of CBC data. Current Interpretive Data was last revised on 2017. Testing performed by: [address] [address] Imm gran pct 0.5 % [facility] Comment: Interpretive Data Percent cell count reference ranges are not reported, since discordance with absolute values may lead to misinterpretation of CBC data. Current Interpretive Data was last revised on 2017. Testing performed by: [address] [address] Lymphocyte pct 36.5 % [facility] Comment: Interpretive Data Percent cell count reference ranges are not reported, since discordance with absolute values may lead to misinterpretation of CBC data. Current Interpretive Data was last revised on 2017. Testing performed by: [address] [address] Monocyte pct 14.7 % [facility] Comment: Interpretive Data Percent cell count reference ranges are not reported, since discordance with absolute values may lead to misinterpretation of CBC data. Current Interpretive Data was last revised on 2017. Testing performed by: [address] [address] Eosinophil pct 2.4 % [facility] Comment: Interpretive Data Percent cell count reference ranges are not reported, since discordance with absolute values may lead to misinterpretation of CBC data. Current Interpretive Data was last revised on 2017. Testing performed by: [address] [address] Basophil pct 0.6 % [facility] Comment: Interpretive Data Percent cell count reference ranges are not reported, since discordance with absolute values may lead to misinterpretation of CBC data. Current Interpretive Data was last revised on 2017. Testing performed by: [address] [address] Blood 01/09/2025 4:55 AM CDT 01/09/2025 4:59 AM CDT us Rasta Garcia MD LAB BLOOD ORDERABLES Final Res ult [facility] [address] [facility] Department [place] [address] * (ABNORMAL) CBC with auto differential (01/09/2025 4:55 AM CDT) WBC 10.07(H) 3.80 - 9.90 K/cumm Comment:Testing performed by : [address] [address] Hgb 7.3(L) 13.0 - 17.5 g/dL [facility] Comment:Testing performed by : [address] [address] Hct 21.4(L) 38.9 - 50.3 % [facility] Comment:Testing performed by : [address] [address] Plt 285 150 - 400 K/cumm [facility] Comment:Testing performed by : [address] [address] MPV 10.1 9.1 - 12.3 fL [facility] Comment:Testing performed by : [address] [address] RBC 2.44(L) 4.30 - 5.80 M/cumm [facility] Comment:Testing performed by : [address] [address] MCV 87.7 81.3 - 96.4 fL [facility] Comment:Testing performed by : [address], [address] MCH 29.9 27.1 - 33.3 pg [facility] Comment:Testing performed by : [address] [address] MCHC 34.1 32.3 - 35.7 g/dL [facility] Comment:Testing performed by : [address] [address] RDW CV 22.1(H) 11.1 - 14.9 % [facility] Comment:Testing performed by : [address] [address] RDW SD 67.3(H) 35.7 - 48.1 fL [facility] Comment:Testing performed by : [address] [address] NRBC abs 0.19(H) 0.00 - 0.01 K/cumm [facility] Comment:Testing performed by : [address], [address] Morphologic Screen Results confirmed by manual morphology review. [facility] Comment:Testing performed by : [address] [address] Blood 01/09/2025 4:55 AM CDT 01/09/2025 4:59 AM CDT us Rasta Garcia MD LAB BLOOD ORDERABLES Final Res ult Performing Organization Address [facility] Co de Phone Number [facility] [place] [address] * (ABNORMAL) Reticulocyte Count (01/09/2025 4:55 AM CDT) Retics, absolute 566(H) 20 - 87 K/cumm Comment:Testing performed by : [address] [address] Retics 23.2(H) 0.4 - 2.9 % [facility] Comment:Testing performed by : [address] [address] Reticulocyte Hgb 28.1(L) 30.5 - 38.0 pg [facility] Comment:Testing performed by : [facility], [address] [place] [address]., [address] Blood 01/09/2025 4:55 AM CDT 01/09/2025 4:59 AM CDT us Rasta Garcia MD LAB BLOOD ORDERABLES Final Res ult Performing Organization Address [facility] Co de Phone Number [facility] [place] [address] * eGFR (01/09/2025 4:50 AM CDT) [facility] eGFR >90 >=60 mL/min/1. 73 m2 Comment: [...] was last reviewed 2021. Testing performed by: [address] [address] Blood 01/09/2025 4:50 AM CDT 01/09/2025 4:59 AM CDT Rasta Garcia MD LAB BLOOD ORDERABLES Final Res ult [facility] [address] [facility] Department [place] [address] * (ABNORMAL) Basic metabolic panel (01/09/2025 4:50 AM CDT) Sodium 137 135 - 145 mmol/L Comment:Testing performed by : [address] [address] Potassium, pl 3.9 3.3 - 4.9 mmol/L [facility] Comment:Testing performed by : [address] [address] Chloride 102 97 - 110 mmol/L [facility] Comment:Testing performed by : [address] [address] CO2 23 22 - 32 mmol/L [facility] Comment:Testing performed by : [address] [address] Anion gap 12 2 - 15 mmol/L [facility] Comment:Testing performed by : [address] [address] BUN 4(L) 6 - 25 mg/dL [facility] Comment:Testing performed by : [address] [address] Creatinine 0.56(L) 0.80 - 1.30 mg/dL [facility] Comment:Testing performed by : [address] [address] Glucose 109 70 - 199 mg/dL [facility] [...] was last revised 2022. Testing performed by: [address] [address] Calcium 8.8 8.5 - 10.3 mg/dL [facility] Comment:Testing performed by : [address] [address] Blood 01/09/2025 4:50 AM CDT 01/09/2025 4:59 AM CDT us Rasat Garcia MD LAB BLOOD ORDERABLES Final Res ult Performing Organization Address City/State/[facility] Co de Phone Number [facility] [address] [facility] Department [place] [address] * CT Abdomen Pelvis WO Contrast (01/08/2025 [...] Anival Cotton M.D. NS: NS Report ID: [id number] Reading Location: [id number] Procedure Note Anival Cotton MD - 01/08/2025 [...] Anival Cotton M.D. NS: NS Report ID: [id number] Reading Location: [place] [address] Jaya Garcia DO IMG CT PROCEDURES Final [...] was last reviewed 2021. Testing performed by: [address] [address] Blood 01/07/2025 10:4 8 AM CDT 01/07/2025 11:07 AM CDT us Rasta Garcia MD LAB BLOOD ORDERABLES Final Res ult [facility] [facility] Department [place] [address] * (ABNORMAL) CBC with auto differential (01/07/2025 10:48 AM CDT) WBC 8.71 3.80 - 9.90 K/cumm Comment:Testing performed by : [address] [address] Hgb 8.0(L) 13.0 - 17.5 g/dL [facility] SHETT[facility] Comment:Testing performed by : [address] [address] Hct 23.2(L) 38.9 - 50.3 % [facility] SHE[facility] Comment:Testing performed by : [address] [address] Plt 324 150 - 400 K/cumm [facility] SHETT[facility] Comment:Testing performed by : [address] [address] MPV 10.3 9.1 - 12.3 fL [facility] Comment:Testing performed by : [address] [address] RBC 2.58(L) 4.30 - 5.80 M/cumm [facility] SHETT[facility] Comment:Testing performed by : [address] [address] MCV 89.9 81.3 - 96.4 fL [facility] SHE[facility] Comment:Testing performed by : [address] [address] MCH 31.0 27.1 - 33.3 pg [facility] SHETT[facility] Comment:Testing performed by : [address] [address] MCHC 34.5 32.3 - 35.7 g/dL [facility] SHE[facility] Comment:Testing performed by : [address], [address] RDW CV 21.6(H) 11.1 - 14.9 % [facility] Comment:Testing performed by : [address], [address] RDW SD 68.9(H) 35.7 - 48.1 fL [facility] Comment:Testing performed by : [address], [address] NRBC abs 0.26(H) 0.00 - 0.01 K/cumm [facility] Comment:Testing performed by : [address] [address] Blood 01/07/2025 10:4 8 AM CDT 01/07/2025 11:07 AM CDT us Jaya Garcia DO LAB BLOOD ORDERABLES Edited Resu lt - Final [facility] [address] [facility] Department [place] [address] * (ABNORMAL) Manual Differential (01/07/2025 10:48 AM CDT) Differential Manual Comment:Testing performed by : [address], [address] Cells Counted 100 [facility] SHE[facility] Comment:Testing performed by : [address], [place]., [address] Neutrophil abs 3.92 1.50 - 6.50 K/cumm [facility] Comment:Testing performed by : [address], [place]., [address] Lymphocyte abs 4.44(H) 0.80 - 3.30 K/cumm [facility] Comment:Testing performed by : [address], [place]., [address] Monocyte abs 0.26 0.20 - 0.80 K/cumm [facility] Comment:Testing performed by : [address], [place]., [address] Eosinophil abs 0.09 0.00 - 0.50 K/cumm [facility] Comment:Testing performed by : [address], [place]., [address] Neutrophil pct 45.0 % [facility] Comment: Interpretive Data Percent cell count reference ranges are not reported, since discordance with absolute values may lead to misinterpretation of CBC data. Current Interpretive Data was last revised on 2017. Testing performed by: [address] [address] Lymphocyte pct 51.0 % [facility] Comment: Interpretive Data Percent cell count reference ranges are not reported, since discordance with absolute values may lead to misinterpretation of CBC data. Current Interpretive Data was last revised on 2017. Testing performed by: [address] [address] Monocyte pct 3.0 % [facility] Comment: Interpretive Data Percent cell count reference ranges are not reported, since discordance with absolute values may lead to misinterpretation of CBC data. Current Interpretive Data was last revised on 2017. Testing performed by: [address] [address] Eosinophil pct 1.0 % [facility] Comment: Interpretive Data Percent cell count reference ranges are not reported, since discordance with absolute values may lead to misinterpretation of CBC data. Current Interpretive Data was last revised on 2017. Testing performed by: [address], [place]., [address] RBC morphology Present(A) [facility] Comment:Testing performed by : [address], [place]., [address] Anisocytosis Marked(A) [facility] Comment:Testing performed by : [address], [place]., [address] Sickle cells 1-2/HPF(A) [facility] Comment:Testing performed by : [address], [place]., [address] Elliptocytes 3-7/HPF(A) [facility] Comment:Testing performed by : [address], [place]., [address] Target cells 3-7/HPF(A) [facility] Comment:Testing performed by : [address], [place]., [address] Platelet morphology Normal [facility] Comment:Testing performed by : [address], [place]., [address] Platelet estimate Adequate [facility] Comment:Testing performed by : [address], [place]., [address] Blood 01/07/2025 10:4 8 AM CDT 01/07/2025 11:07 AM CDT us Jaya Garcia DO LAB BLOOD ORDERABLES Final Resul t [facility] Department [place] [address] * (ABNORMAL) Reticulocyte Count (01/07/2025 10:48 AM CDT) Retics, absolute 559(H) 20 - 87 K/cumm Comment:Testing performed by : [address], [place]., [address] Retics 20.7(H) 0.4 - 2.9 % [facility] Comment:Testing performed by : [address], [place] [address] Reticulocyte Hgb 28.5(L) 30.5 - 38.0 pg [facility] Comment:Testing performed by : [facility], [address] [place] [address]., [address] Blood 01/07/2025 10:4 8 AM CDT 01/07/2025 11:07 AM CDT us Rasta Garcia MD LAB BLOOD ORDERABLES Final Res ult [facility] [address] [facility] [place] [address] * (ABNORMAL) Basic metabolic panel (01/07/2025 10:48 AM CDT) Sodium 141 135 - 145 mmol/L Comment:Testing performed by : [address] [address] Potassium, pl 3.3 3.3 - 4.9 mmol/L [facility] Comment:Testing performed by : [address] [address] Chloride 104 97 - 110 mmol/L [facility] Comment:Testing performed by : [address] [address] CO2 25 22 - 32 mmol/L [facility] Comment:Testing performed by : [address] [address] Anion gap 12 2 - 15 mmol/L [facility] Comment:Testing performed by : [address] [address] BUN 2(L) 6 - 25 mg/dL [facility] Comment:Testing performed by : [address] [address] Creatinine 0.50(L) 0.80 - 1.30 mg/dL [facility] Comment:Testing performed by : [address] [address] Glucose 162 70 - 199 mg/dL [facility] [...] last revised 2022. Testing performed by: [facility], [address] [place] [address]., [address] Calcium 8.6 8.5 - 10.3 mg/dL [facility] SHE[facility] Comment:Testing performed by : [address] [address] Blood 01/07/2025 10:4 8 AM CDT 01/07/2025 11:07 AM CDT us Rasta Garcia MD LAB BLOOD ORDERABLES Final Res ult [facility] SHETTY [address] [facility] Department [place] [address] * eGFR (01/06/2025 6:52 AM CDT) eGFR [...] was last reviewed 2021. Testing performed by: [address] [address] Blood 01/06/2025 6:52 AM CDT 01/06/2025 7:14 AM CDT us Rasta Garcia MD LAB BLOOD ORDERABLES Final Res ult [facility] [address] [facility] Department [place] [address] * (ABNORMAL) Basic metabolic panel (01/06/2025 6:52 AM CDT) Sodium 139 135 - 145 mmol/L Comment:Testing performed by : [address] [address] Potassium, pl 3.7 3.3 - 4.9 mmol/L [facility] Comment:Testing performed by : [address] [address] Chloride 103 97 - 110 mmol/L [facility] Comment:Testing performed by : [address] [address] CO2 23 22 - 32 mmol/L [facility] Comment:Testing performed by : [address] [address] Anion gap 13 2 - 15 mmol/L [facility] Comment:Testing performed by : [address] [address] BUN 2(L) 6 - 25 mg/dL [facility] Comment:Testing performed by : [address] [address] Creatinine 0.50(L) 0.80 - 1.30 mg/dL [facility] Comment:Testing performed by : [address] [address] Glucose 95 70 - 199 mg/dL [facility] [...] was last revised 2022. Testing performed by: [address] [address] Calcium 8.6 8.5 - 10.3 mg/dL [facility] SHETTY Comment:Testing performed by : [address] [address] Blood 01/06/2025 6:52 AM CDT 01/06/2025 7:14 AM CDT us Rasta Garcia MD LAB BLOOD ORDERABLES Final Res ult [facility] DIO[facility] [address] [facility] [place] [address] * eGFR (01/04/2025 7:27 AM [...] was last reviewed 2021. Testing performed by: [address] [address] Blood 01/04/2025 7:27 AM CDT 01/04/2025 7:34 AM CDT us Rasta Garcia MD LAB BLOOD ORDERABLES Final Res ult [facility] [address] [facility] [place] [address] * (ABNORMAL) CBC with auto differential (01/04/2025 7:27 AM CDT) WBC 10.50(H) 3.80 - 9.90 K/cumm Comment:Testing performed by : [address] [address] Hgb 8.4(L) 13.0 - 17.5 g/dL [facility] Comment:Testing performed by : [address] [address] Hct 25.3(L) 38.9 - 50.3 % [facility] Comment:Testing performed by : [address] [address] Plt 299 150 - 400 K/cumm [facility] Comment:Testing performed by : [address] [address] MPV 9.8 9.1 - 12.3 fL [facility] Comment:Testing performed by : [address] [address] RBC 2.76(L) 4.30 - 5.80 M/cumm [facility] Comment:Testing performed by : [address] [address] MCV 91.7 81.3 - 96.4 fL [facility] Comment:Testing performed by : [address] [address] MCH 30.4 27.1 - 33.3 pg [facility] Comment:Testing performed by : [address] [address] MCHC 33.2 32.3 - 35.7 g/dL [place] Comment:Testing performed by : [address] [address] RDW CV 23.3(H) 11.1 - 14.9 % [facility] Comment:Testing performed by : [address] [address] RDW SD 74.0(H) 35.7 - 48.1 fL [facility] Comment:Testing performed by : [address] [address] NRBC abs 0.21(H) 0.00 - 0.01 K/cumm [facility] Comment:Testing performed by : [address] [address] Blood 01/04/2025 7:27 AM CDT 01/04/2025 7:34 AM CDT us Rasta Garcia MD LAB BLOOD ORDERABLES Edited Re sharifat - Final [facility] [facility] [place] [address] * (ABNORMAL) Manual Differential (01/04/2025 7:27 AM CDT) Differential Manual Comment:Testing performed by : [address] [address] Cells Counted 100 [facility] Comment:Testing performed by : [address] [address] Neutrophil abs 3.26 1.50 - 6.50 K/cumm [facility] Comment:Testing performed by : [address] [address] Lymphocyte abs 5.88(H) 0.80 - 3.30 K/cumm [facility] Comment:Testing performed by : [address] [address] Monocyte abs 0.63 0.20 - 0.80 K/cumm [facility] Comment:Testing performed by : [address] [address] Eosinophil abs 0.53(H) 0.00 - 0.50 K/cumm [facility] Comment:Testing performed by : [address] [address] Basophil abs 0.21(H) 0.00 - 0.10 K/cumm [facility] Comment:Testing performed by : [address] [address] Neutrophil pct 31.0 % [facility] Comment: Interpretive Data Percent cell count reference ranges are not reported, since discordance with absolute values may lead to misinterpretation of CBC data. Current Interpretive Data was last revised on 2017. Testing performed by: [address] [address] Lymphocyte pct 56.0 % [facility] Comment: Interpretive Data Percent cell count reference ranges are not reported, since discordance with absolute values may lead to misinterpretation of CBC data. Current Interpretive Data was last revised on 2017. Testing performed by: [address] [address] Monocyte pct 6.0 % [facility] Comment: Interpretive Data Percent cell count reference ranges are not reported, since discordance with absolute values may lead to misinterpretation of CBC data. Current Interpretive Data was last revised on 2017. Testing performed by: [address] [address] Eosinophil pct 5.0 % [facility] Comment: Interpretive Data Percent cell count reference ranges are not reported, since discordance with absolute values may lead to misinterpretation of CBC data. Current Interpretive Data was last revised on 2017. Testing performed by: [address] [address] Basophil pct 2.0 % [facility] Comment: Interpretive Data Percent cell count reference ranges are not reported, since discordance with absolute values may lead to misinterpretation of CBC data. Current Interpretive Data was last revised on 2017. Testing performed by: [address] [address] Vacuolation Present(A) [facility] Comment:Testing performed by : [address] [address] RBC morphology Present(A) [facility] Comment:Testing performed by : [address] [address] Polychromasia 3-7/HPF(A) [facility] Comment:Testing performed by : [address] [address] Anisocytosis Marked(A) [facility] Comment:Testing performed by : [facility], [address] [place] [address]., [address] Macrocytes 3-7/HPF(A) [facility] Comment:Testing performed by : [address] [address] Schistocytes 1-2/HPF(A) [facility] Comment:Testing performed by : [address] [address] Sickle cells 3-7/HPF(A) [facility] Comment:Testing performed by : [address], [place]., [address] Platelet estimate Adequate [facility] Comment:Testing performed by : [address] [address] Giant platelets Present(A) [place] Comment:Testing performed by : [address] [address] Blood 01/04/2025 7:27 AM CDT 01/04/2025 7:34 AM CDT us Rasta Garcia MD LAB BLOOD ORDERABLES Final Res ult [facility] [address] [facility] [place] [address] * (ABNORMAL) Reticulocyte Count (01/04/2025 7:27 AM CDT) Retics, absolute 532(H) 20 - 87 K/cumm Comment:Testing performed by : [address] [address] Retics 19.3(H) 0.4 - 2.9 % [facility] Comment:Testing performed by : [address] [address] Reticulocyte Hgb 34.7 30.5 - 38.0 pg [facility] Comment:Testing performed by : [address] [address] Blood 01/04/2025 7:27 AM CDT 01/04/2025 7:34 AM CDT us Rasta Garcia MD LAB BLOOD ORDERABLES Final Res ult [facility] [address] [facility] [place] [address] * (ABNORMAL) Basic metabolic panel (01/04/2025 7:27 AM CDT) Sodium 137 135 - 145 mmol/L Comment:Testing performed by : [address] [address] Potassium, pl 3.5 3.3 - 4.9 mmol/L [facility] Comment:Testing performed by : [address] [address] Chloride 100 97 - 110 mmol/L [facility] Comment:Testing performed by : [address] [address] CO2 25 22 - 32 mmol/L [place] Comment:Testing performed by : [address] [address] Anion gap 12 2 - 15 mmol/L [facility] Comment:Testing performed by : [address] [address] BUN 2(L) 6 - 25 mg/dL [place] Comment:Testing performed by : [address] [address] Creatinine 0.49(L) 0.80 - 1.30 mg/dL [facility] Comment:Testing performed by : [address] [address] Glucose 106 70 - 199 mg/dL [facility] [...] last revised 2022. Testing performed by: [facility], [address] [place] [address]., [address] Calcium 9.1 8.5 - 10.3 mg/dL [facility] Comment:Testing performed by : [address] [address] Blood 01/04/2025 7:27 AM CDT 01/04/2025 7:34 AM CDT us Rasta Garcia MD LAB BLOOD ORDERABLES Final Res ult [facility] [address] [facility] Department [place] [address] * (ABNORMAL) Blood smear review (01/03/2025 7:30 AM CDT) RBC morphology Present(A) Comment:Testing performed by : [address] [address] Polychromasia 3-7/HPF(A) [facility] Comment:Testing performed by : [address] [address] Anisocytosis Slight(A) [facility] Comment:Testing performed by : [address] [address] Poikilocytosis Slight(A) [facility] Comment:Testing performed by : [address] [address] Sickle cells 1-2/HPF(A) [place] Comment:Testing performed by : [address] [address] Elliptocytes 3-7/HPF(A) [place] Comment:Testing performed by : [address] [address] Target cells 3-7/HPF(A) [facility] Comment:Testing performed by : [address] [address] Platelet estimate Adequate [facility] Comment:Testing performed by : [address] [address] Blood 01/03/2025 7:30 AM CDT 01/03/2025 7:44 AM CDT us Rasta Garcia MD LAB BLOOD ORDERABLES Final Res ult Performing Organization Address [facility] Co de Phone Number [facility] [address] [place] [address] * eGFR (01/03/2025 7:30 AM CDT) eGFR [...] last reviewed 2021. Testing performed by: [facility], [address] [place] [address]., [address] Blood 01/03/2025 7:30 AM CDT 01/03/2025 7:44 AM CDT us Rasta Garcia MD LAB BLOOD ORDERABLES Final Res ult Performing Organization Address City/[facility]/ZIP Co de Phone Number [facility] [address] [place] [address] * (ABNORMAL) Differential, auto (01/03/2025 7:30 AM CDT) Neutrophil abs 5.76 1.50 - 6.50 K/cumm Comment:Testing performed by : [facility], [address] [place] [address], [place]., [address] Imm gran abs 0.13(H) 0.00 - 0.10 K/cumm [facility] Comment:Testing performed by : [address], [place]., [address] Lymphocyte abs 3.10 0.80 - 3.30 K/cumm [facility] Comment:Testing performed by : [address], [place]., [address] Monocyte abs 0.98(H) 0.20 - 0.80 K/cumm [facility] Comment:Testing performed by : [address], [place]., [address] Eosinophil abs 0.21 0.00 - 0.50 K/cumm [facility] Comment:Testing performed by : [address], [place]., [address] Basophil abs 0.07 0.00 - 0.10 K/cumm [facility] Comment:Testing performed by : [address] [address] Neutrophil pct 56.2 % [facility] Comment: Interpretive Data Percent cell count reference ranges are not reported, since discordance with absolute values may lead to misinterpretation of CBC data. Current Interpretive Data was last revised on 2017. Testing performed by: [address] [address] Imm gran pct 1.3 % [facility] Comment: Interpretive Data Percent cell count reference ranges are not reported, since discordance with absolute values may lead to misinterpretation of CBC data. Current Interpretive Data was last revised on 2017. Testing performed by: [address] [address] Lymphocyte pct 30.2 % [facility] Comment: Interpretive Data Percent cell count reference ranges are not reported, since discordance with absolute values may lead to misinterpretation of CBC data. Current Interpretive Data was last revised on 2017. Testing performed by: [address] [address] Monocyte pct 9.6 % [facility] Comment: Interpretive Data Percent cell count reference ranges are not reported, since discordance with absolute values may lead to misinterpretation of CBC data. Current Interpretive Data was last revised on 2017. Testing performed by: [address] [address] Eosinophil pct 2.0 % [facility] SHE[facility] Comment: Interpretive Data Percent cell count reference ranges are not reported, since discordance with absolute values may lead to misinterpretation of CBC data. Current Interpretive Data was last revised on 2017. Testing performed by: [address] [address] Basophil pct 0.7 % [facility] Comment: Interpretive Data Percent cell count reference ranges are not reported, since discordance with absolute values may lead to misinterpretation of CBC data. Current Interpretive Data was last revised on 2017. Testing performed by: [address] [address] Blood 01/03/2025 7:30 AM CDT 01/03/2025 7:44 AM CDT us Rasta Garcia MD LAB BLOOD ORDERABLES Final Res ult [facility] [address] [facility] Department [place] [address] * (ABNORMAL) CBC with auto differential (01/03/2025 7:30 AM CDT) WBC 10.25(H) 3.80 - 9.90 K/cumm Comment:Testing performed by : [address] [address] Hgb 7.7(L) 13.0 - 17.5 g/dL [facility] SHETT[facility] Comment:Testing performed by : [address] [address] Hct 22.5(L) 38.9 - 50.3 % [facility] Comment:Testing performed by : [address] [address] Plt 350 150 - 400 K/cumm [facility] Comment:Testing performed by : [address] [address] MPV 10.1 9.1 - 12.3 fL [facility] Comment:Testing performed by : [address] [address] RBC 2.55(L) 4.30 - 5.80 M/cumm [facility] Comment:Testing performed by : [address] [address] MCV 88.2 81.3 - 96.4 fL [facility] Comment:Testing performed by : [address] [address] MCH 30.2 27.1 - 33.3 pg [facility] Comment:Testing performed by : [address], [address] MCHC 34.2 32.3 - 35.7 g/dL [facility] Comment:Testing performed by : [address], [address] RDW CV 22.1(H) 11.1 - 14.9 % [facility] Comment:Testing performed by : [address] [address] RDW SD 67.4(H) 35.7 - 48.1 fL [facility] Comment:Testing performed by : [address] [address] NRBC abs 0.35(H) 0.00 - 0.01 K/cumm [facility] Comment:Testing performed by : [address] [address] Blood 01/03/2025 7:30 AM CDT 01/03/2025 7:44 AM CDT us Rasta Garcia MD LAB BLOOD ORDERABLES Edited Re cindi - Final [facility] [address] [facility] Department [place] [address] * (ABNORMAL) Reticulocyte Count (01/03/2025 7:30 AM CDT) Retics, absolute 471(H) 20 - 87 K/cumm Comment:Testing performed by : [address] [address] Retics 18.5(H) 0.4 - 2.9 % [facility] Comment:Testing performed by : [address] [address] Reticulocyte Hgb 31.1 30.5 - 38.0 pg [facility] Comment:Testing performed by : [address] [address] Blood 01/03/2025 7:30 AM CDT 01/03/2025 7:44 AM CDT us Rasta Garcia MD LAB BLOOD ORDERABLES Final Res ult [facility] [address] [facility] Department [place] [address] * (ABNORMAL) Basic metabolic panel (01/03/2025 7:30 AM CDT) Sodium 138 135 - 145 mmol/L Comment:Testing performed by : [address] [address] Potassium, pl 3.5 3.3 - 4.9 mmol/L [facility] Comment:Testing performed by : [address] [address] Chloride 101 97 - 110 mmol/L [facility] Comment:Testing performed by : [address] [address] CO2 26 22 - 32 mmol/L [facility] Comment:Testing performed by : [address] [address] Anion gap 11 2 - 15 mmol/L [facility] Comment:Testing performed by : [address] [address] BUN <2(L) 6 - 25 mg/dL [facility] Comment:Testing performed by : [address] [address] Creatinine 0.50(L) 0.80 - 1.30 mg/dL [facility] Comment:Testing performed by : [address] [address] Glucose 106 70 - 199 mg/dL [facility] [...] was last revised 2022. Testing performed by: [address] [address] Calcium 8.8 8.5 - 10.3 mg/dL [facility] Comment:Testing performed by : [address] [address] Blood 01/03/2025 7:30 AM CDT 01/03/2025 7:44 AM CDT us Rasta Garcia MD LAB BLOOD ORDERABLES Final Res ult [facility] [address] [facility] Department [place] [address] * Troponin T high-sensitivity 4-hour (01/01/2025 4:09 AM CDT) Trop T hs <6 <=22 ng/L Comment: Interpretive Data For further hscTnT resources including the diagnostic algorithm and an aid in interpretation, copy and paste this link: https://nrl.testcatalog.org/show/hsTrop Current Interpretive Data last revised 2020. Testing performed by: [address] [address] Trop T hs delta -2 ng/L [facility] Comment:Testing performed by : [address] [address] Trop T hs interp Insignificant [facility] Comment:Testing performed by : [facility], [address] [place] [address], [place]., [address] Blood 01/01/2025 4:09 AM CDT 01/01/2025 4:16 AM CDT us Bill Carrasquillo DO LAB BLOOD ORDERABLES Final Res ult [facility] [address] [facility] Department [place] [address] * XR Chest 1 Vw Portable (01/01/2025 [...] Andrew Stubbs M.D. AR: TOREY Report ID: [id number] Reading Location: [id number] Procedure Note Andrew Stubbs MD - 01/01/2025 [...] Andrew Stubbs M.D. AR: TOREY Report ID: [id number] Reading Location: [id number] us Bill Carrasquillo DO IMG XR PROCEDURES Final Result * Troponin T high-sensitivity series (baseline, 2hr, 4hr, 6hr) (12/31/2024 11:57 PM CDT) Trop T hs 8 <=22 ng/L Comment: Interpretive Data For further hscTnT resources including the diagnostic algorithm and an aid in interpretation, copy and paste this link: https://nrl.testcatalog.org/show/hsTrop Current Interpretive Data last revised 2020. Testing performed by: [facility], [address] [place] [address]., [address] Blood 12/31/2024 11:5 7 PM CDT 01/01/2025 12:09 AM CDT us Bill Carrasquillo DO LAB BLOOD ORDERABLES Final Res ult [facility] [address] [facility] Department [place] [address] * eGFR (12/31/2024 11:57 PM [...] was last reviewed 2021. Testing performed by: [address] [address] Blood 12/31/2024 11:5 7 PM CDT 01/01/2025 12:09 AM CDT us Bill Carrasquillo DO LAB BLOOD ORDERABLES Final Res ult [facility] [address] [facility] Department [place] [address] * (ABNORMAL) Differential, auto (12/31/2024 11:57 PM CDT) Neutrophil abs 6.19 1.50 - 6.50 K/cumm Comment:Testing performed by : [address] [address] Imm gran abs 0.07 0.00 - 0.10 K/cumm [facility] Comment:Testing performed by : [address] [address] Lymphocyte abs 4.31(H) 0.80 - 3.30 K/cumm [facility] Comment:Testing performed by : [address] [address] Monocyte abs 1.49(H) 0.20 - 0.80 K/cumm [facility] Comment:Testing performed by : [address] [address] Eosinophil abs 0.14 0.00 - 0.50 K/cumm [facility] Comment:Testing performed by : [address] [address] Basophil abs 0.08 0.00 - 0.10 K/cumm [facility] Comment:Testing performed by : [address] [address] Neutrophil pct 50.4 % [facility] Comment: Interpretive Data Percent cell count reference ranges are not reported, since discordance with absolute values may lead to misinterpretation of CBC data. Current Interpretive Data was last revised on 2017. Testing performed by: [address] [address] Imm gran pct 0.6 % [facility] Comment: Interpretive Data Percent cell count reference ranges are not reported, since discordance with absolute values may lead to misinterpretation of CBC data. Current Interpretive Data was last revised on 2017. Testing performed by: [address] [address] Lymphocyte pct 35.1 % [facility] Comment: Interpretive Data Percent cell count reference ranges are not reported, since discordance with absolute values may lead to misinterpretation of CBC data. Current Interpretive Data was last revised on 2017. Testing performed by: [address] [address] Monocyte pct 12.1 % [facility] Comment: Interpretive Data Percent cell count reference ranges are not reported, since discordance with absolute values may lead to misinterpretation of CBC data. Current Interpretive Data was last revised on 2017. Testing performed by: [address] [address] Eosinophil pct 1.1 % [facility] Comment: Interpretive Data Percent cell count reference ranges are not reported, since discordance with absolute values may lead to misinterpretation of CBC data. Current Interpretive Data was last revised on 2017. Testing performed by: [address] [address] Basophil pct 0.7 % [facility] Comment: Interpretive Data Percent cell count reference ranges are not reported, since discordance with absolute values may lead to misinterpretation of CBC data. Current Interpretive Data was last revised on 2017. Testing performed by: [address] [address] Blood 12/31/2024 11:5 7 PM CDT 01/01/2025 12:09 AM CDT us Bill Carrasquillo DO LAB BLOOD ORDERABLES Final Res ult [facility] [address] [facility] Department [place] [address] * (ABNORMAL) CBC with auto differential (12/31/2024 11:57 PM CDT) WBC 12.28(H) 3.80 - 9.90 K/cumm Comment:Testing performed by : [address] [address] Hgb 7.8(L) 13.0 - 17.5 g/dL [facility] Comment:Testing performed by : [address] [address] Hct 23.2(L) 38.9 - 50.3 % [facility] Comment:Testing performed by : [address] [address] Plt 277 150 - 400 K/cumm [facility] Comment:Testing performed by : [address] [address] MPV 10.0 9.1 - 12.3 fL [facility] Comment:Testing performed by : [address] [address] RBC 2.65(L) 4.30 - 5.80 M/cumm [facility] Comment:Testing performed by : [address] [address] MCV 87.5 81.3 - 96.4 fL [facility] Comment:Testing performed by : [address] [address] MCH 29.4 27.1 - 33.3 pg [facility] SHETT[facility] Comment:Testing performed by : [address] [address] MCHC 33.6 32.3 - 35.7 g/dL [facility] SHE[facility] Comment:Testing performed by : [address] [address] RDW CV 20.6(H) 11.1 - 14.9 % [facility] Comment:Testing performed by : [address] [address] RDW SD 64.0(H) 35.7 - 48.1 fL [facility] Comment:Testing performed by : [address] [address] NRBC abs 0.06(H) 0.00 - 0.01 K/cumm [facility] Comment:Testing performed by : [address] [address] Morphologic Screen Results confirmed by manual morphology review. [facility] Comment:Testing performed by : [address] [address] Blood 12/31/2024 11:5 7 PM CDT 01/01/2025 12:09 AM CDT us Bill Carrasquillo DO LAB BLOOD ORDERABLES Final Res ult [facility] [address] [facility] Department [place] [address] * (ABNORMAL) Reticulocyte Count (12/31/2024 11:57 PM CDT) Retics, absolute 410(H) 20 - 87 K/cumm Comment:Testing performed by : [address] [address] Retics 15.5(H) 0.4 - 2.9 % [facility] Comment:Testing performed by : [address] [address] Reticulocyte Hgb 30.8 30.5 - 38.0 pg [facility] Comment:Testing performed by : [address] [address] Blood 12/31/2024 11:5 7 PM CDT 01/01/2025 12:09 AM CDT us Bill Carrasquillo LAB BLOOD ORDERABLES Final Res ult [facility] [address] [facility] Department [place] [address] * (ABNORMAL) Comprehensive metabolic panel (12/31/2024 11:57 PM CDT) Sodium 137 135 - 145 mmol/L Comment:Testing performed by : [address] [address] Potassium, pl 3.2(L) 3.3 - 4.9 mmol/L [facility] Comment:Testing performed by : [address] [address] Chloride 103 97 - 110 mmol/L [facility] Comment:Testing performed by : [address] [address] CO2 23 22 - 32 mmol/L [facility] Comment:Testing performed by : [address] [address] Anion gap 11 2 - 15 mmol/L [facility] Comment:Testing performed by : [address] [address] BUN 4(L) 6 - 25 mg/dL [facility] Comment:Testing performed by : [address] [address] Creatinine 0.60(L) 0.80 - 1.30 mg/dL [facility] Comment:Testing performed by : [address] [address] Glucose 115 70 - 199 mg/dL [facility] [...] last revised 2022. Testing performed by: [facility], [address] [place] [address]., [address] Calcium 9.1 8.5 - 10.3 mg/dL [facility] Comment:Testing performed by : [address] [address] Bilirubin, total 5.6(H) 0.1 - 1.2 mg/dL [facility] Comment:Testing performed by : [address] [address] Protein, pl 7.9 6.5 - 8.5 g/dL [facility] Comment:Testing performed by : [address] [address] Albumin 4.1 3.5 - 5.0 g/dL [facility] Comment:Testing performed by : [address] [address] Alk phos 353(H) 40 - 130 Units/L [facility] Comment:Testing performed by : [address] [address] ALT 27 7 - 55 Units/L [facility] Comment:Testing performed by : [address] [address] AST 53(H) 10 - 50 Units/L [facility] Comment:Testing performed by : [address] [address] Blood 12/31/2024 11:5 7 PM CDT 01/01/2025 12:09 AM CDT us Bill Carrasquillo DO LAB BLOOD ORDERABLES Final Res ult [facility] [address] [facility] Department [place] [address] * ECG 12 lead (12/31/2024 11:51 PM CDT) Ventricular Rate EKG/Min 107 BPM [facility] Atrial Rate 107 BPM [facility] TX-Interval (MSEC) 178 ms [facility] QRS-Interval (MSEC) 80 ms [facility] QT-Interval (MSEC) 344 ms [facility] QTc 459 ms [facility] P [place] 51 degrees [facility] R [place] 4 degrees [facility] T [place] 15 degrees [facility] Diagnosis Sinus tachycardia Otherwise normal ECG When compared with ECG of 22-DEC-2024 13:08, Nonspecific T wave abnormality no longer evident in Lateral leads Confirmed by Rodrigue Fonseca M.D. ([id number]) on 01/03/2025 8:51:05 AM [facility] 12/31/2024 11:5 1 PM CDT 01/03/2025 8:51 AM CDT us Bill Carrasquillo DO ECG ORDERABLES Final Result [facility] * CT Chest PE (CTA) W [...] by: Tianna Shepard M.D. Elijah Ramirez MD [facility] CT PROCEDURES Final Result * Respiratory pathogen panel Nasopharyngeal (12/23/2024 4:03 PM CDT) Pathologist [facility] Influenza A RNA Not Detected Not Detected [facility] Influenza B RNA Not Detected Not Detected [facility] RSV RNA Not Detected Not Detected [facility] COVID-19 RNA Not Detected Not Detected [facility] Coronavirus 229E RNA Not Detected Not Detected [facility] Coronavirus HKU1 RNA Not Detected Not Detected [facility] Coronavirus NL63 RNA Not Detected Not Detected [facility] Coronavirus OC43 RNA Not Detected Not Detected [facility] Adenovirus DNA Not Detected Not Detected [facility] Metapneumovirus RNA Not Detected Not Detected [facility] Rhinovirus/Enterov irus RNA Not Detected Not Detected [facility] Parainfluenza 1 RNA Not Detected Not Detected [facility] Parainfluenza 2 RNA Not Detected Not Detected [facility] Parainfluenza 3 RNA Not Detected Not Detected [facility] Parainfluenza 4 RNA Not Detected Not Detected [facility] B. pertussis DNA Not Detected Not Detected [facility] B. parapertussis DNA Not Detected Not Detected [facility] C. pneumoniae DNA Not Detected Not Detected [facility] M. pneumoniae DNA Not Detected Not Detected [facility] Comment: Interpretive Data The Pay[employer]ir[employer] FilmArray Respiratory Panel (RP2.1) assay is a [...] assay has FDA clearance for testing of CROWN CERAMIST swabs. The performance characteristics of this assay have been determined by [facility]. Current interpretive data was last revised on 2020. Nasopharyngeal 12/23/2024 4: 03 PM CDT 12/23/2024 4:10 PM CDT Narrative [facility] - 12/23/2024 5:11 PM CDT Is the Patient experiencing symptoms consistent with COVID?->Yes Surveillance testing for transplant patient?->No Elijah Ramirez MD LAB MICROBIOLOGY - GENER AL ORDERABLES Final Result [facility] [address] [place] [address] [facility] * XR Chest Pa Lateral 2 Vw [...] * eGFR (12/23/2024 2:44 PM CDT) Pathologist [facility] eGFR >90 >=60 mL/min/1. 73 m2 Comment: [...] García DO LAB BLOOD ORDERABLES Final Result [facility] [address] Department [place] [address] * (ABNORMAL) Differential, auto (12/23/2024 2:44 PM CDT) Pathologist [facility] Neutrophil abs 4.91 1.50 - 6.50 K/cumm Imm gran abs 0.09 0.00 - 0.10 K/cumm [facility] Lymphocyte abs 3.14 0.80 - 3.30 K/cumm [facility] Monocyte abs 1.13(H) 0.20 - 0.80 K/cumm [facility] Eosinophil abs 0.17 0.00 - 0.50 K/cumm [facility] Basophil abs 0.07 0.00 - 0.10 K/cumm [facility] Neutrophil pct 51.7 % [facility] Comment: Interpretive Data Percent cell count reference ranges are not reported, since discordance with absolute values may lead to misinterpretation of CBC data. Current Interpretive Data was last revised on 2017. Imm gran pct 0.9 % [facility] Comment: Interpretive Data Percent cell count reference ranges are not reported, since discordance with absolute values may lead to misinterpretation of CBC data. Current Interpretive Data was last revised on 2017. Lymphocyte pct 33.0 % [facility] Comment: Interpretive Data Percent cell count reference ranges are not reported, since discordance with absolute values may lead to misinterpretation of CBC data. Current Interpretive Data was last revised on 2017. Monocyte pct 11.9 % [facility] Comment: Interpretive Data Percent cell count reference ranges are not reported, since discordance with absolute values may lead to misinterpretation of CBC data. Current Interpretive Data was last revised on 2017. Eosinophil pct 1.8 % [facility] Comment: Interpretive Data Percent cell count reference ranges are not reported, since discordance with absolute values may lead to misinterpretation of CBC data. Current Interpretive Data was last revised on 2017. Basophil pct 0.7 % [facility] Comment: Interpretive Data Percent cell count reference ranges are not reported, since discordance with absolute values may lead to misinterpretation of CBC data. Current Interpretive Data was last revised on 2017. Blood 12/23/2024 2:44 PM CDT 12/23/2024 2:56 PM CDT us Steve García DO LAB BLOOD ORDERABLES Final Result [facility] [address] Department [place] [address] * (ABNORMAL) Urinalysis reflex to microscopic and culture Urine (12/23/2024 2:44 PM CDT) Color, ur Yellow Yellow Clarity, ur Clear Clear [facility] Specific gravity, ur 1.010 1.003 - 1.030 [facility] pH, urine 7.0 [facility] Comment: Interpretive Data U rine pH is affected by diet, medications, systemic acid-base disturbances, and renal tubular function. pH may affect urinary stone formation. For example, urine pH below 6.0 may help reduce the tendency for calcium phosphate stones and pH greater than 6.0 may reduce the tendency for uric acid stone formation. Source: [facility] [employer] Current Interpretive Data was last revised on 2017 Protein, ur ql Negative Negative [facility] Glucose, ur ql Negative Negative [facility] Ketones, ur Negative Negative [facility] Bilirubin, ur Negative Negative [facility] Blood, ur Negative Negative [facility] Urobilinogen, ur 4.0(A) <2.0 mg/dL [facility] Nitrite, ur Negative Negative [facility] Leukocyte esterase, ur Negative Negative [facility] UA reflex comment Reflex conditions for microscopic UA and culture not met. [facility] Urine 12/23/2024 2:44 PM CDT 12/23/2024 2:45 PM CDT Elijah Ramirez MD LAB MICROBIOLOGY - GENER AL ORDERABLES Final Result [facility] [address] [place] [address] * (ABNORMAL) CBC with auto differential (12/23/2024 2:44 PM CDT) WBC 9.51 3.80 - 9.90 K/cumm Hgb 8.4(L) 13.0 - 17.5 g/dL [facility] Hct 25.6(L) 38.9 - 50.3 % [facility] Plt 343 150 - 400 K/cumm [facility] MPV 10.3 9.1 - 12.3 fL [facility] [facility] RBC 2.84(L) 4.30 - 5.80 M/cumm [facility] MCV 90.1 81.3 - 96.4 fL [facility] MCH 29.6 27.1 - 33.3 pg [facility] MCHC 32.8 32.3 - 35.7 g/dL [facility] RDW CV 19.9(H) 11.1 - 14.9 % [facility] RDW SD 64.4(H) 35.7 - 48.1 fL [facility] NRBC abs 0.10(H) 0.00 - 0.01 K/cumm [facility] Morphologic Screen Results confirmed by manual morphology review. [facility] Blood 12/23/2024 2:44 PM CDT 12/23/2024 2:56 PM CDT us Elijah Ramirez MD LAB BLOOD ORDERABLES Rashaun missy Result - Final Performing Organization Address [facility] Co de Phone Number [facility] [address] [place] [address] * (ABNORMAL) Reticulocyte Count (12/23/2024 2:44 PM CDT) [facility] Retics, absolute 450(H) 20 - 87 K/cumm Comment:Retic verified by di lution. Retics 14.5(H) 0.4 - 2.9 % [facility] Comment:Retic verified by di lution. Reticulocyte Hgb 32.5 30.5 - 38.0 pg [facility] Blood 12/23/2024 2:44 PM CDT 12/23/2024 2:56 PM CDT us Elijha Ramirez MD LAB BLOOD ORDERABLES Fin al Result Performing Organization Address [facility] Co de Phone Number [facility] [address] Department of [employer] [place], [place] [id number] * (ABNORMAL) Comprehensive metabolic panel (12/23/2024 2:44 PM CDT) Sodium 138 135 - 145 mmol/L Potassium, pl 3.6 3.3 - 4.9 mmol/L [facility] Chloride 104 97 - 110 mmol/L [facility] CO2 24 22 - 32 mmol/L [facility] Anion gap 10 2 - 15 mmol/L [facility] BUN 3(L) 6 - 25 mg/dL [facility] Creatinine 0.51(L) 0.80 - 1.30 mg/dL [facility] Glucose 93 70 - 199 mg/dL [facility] Comment: Interpretive Data Fasting glucose [...] 2022. Calcium 9.0 8.5 - 10.3 mg/dL [facility] Bilirubin, total 5.9(H) 0.1 - 1.2 mg/dL [facility] Protein, pl 7.5 6.5 - 8.5 g/dL [facility] Albumin 3.9 3.5 - 5.0 g/dL [facility] Alk phos 392(H) 40 - 130 Units/L [facility] ALT 45 7 - 55 Units/L [facility] AST 71(H) 10 - 50 Units/L [facility] Blood 12/23/2024 2:44 PM CDT 12/23/2024 2:56 PM CDT us Elijah Ramirez MD LAB BLOOD ORDERABLES Fin al Result [facility] [address] Department [place] [address] * ECG 12 lead (12/23/2024 12:42 PM CDT) 12/23/2024 12:4 2 PM CDT Narrative [facility] - 12/23/2024 1:33 PM CDT Vent Rate: 106 bpm RR Interval: 561 msec TX Interval: 160 msec QRS Duration: 90 msec QT Interval: 368 msec QTC Interval: 430 msec P-R-T [place]: 64 - 31 - 15 degrees IMPRESSION: SINUS TACHYCARDIA ABNORMAL RHYTHM ECG Electronically Signed By: Celestino Dunlap [facility] Card us Elijah Ramirez MD ECG ORDERABLES Final Re sult [facility] [place] * XR Chest 1 Vw Portable [...] Gina Betancur D.O. PS: PS Report ID: [id number] Reading Location: [id number] Procedure Note Gina Betancur DO - 12/22/2024 [...] Gina Betancur D.O. PS: PS Report ID: [id number] Reading Location: [id number] us Cheyanne Johnson [facility] IMG XR PROCEDURES Final Result * ECG 12 lead (12/22/2024 1:08 PM CDT) Ventricular Rate EKG/Min 97 BPM [facility] Atrial Rate 97 BPM [facility] TX-Interval (MSEC) 176 ms [facility] QRS-Interval (MSEC) 88 ms [facility] QT-Interval (MSEC) 368 ms [facility] QTc 467 ms [facility] P [place] 59 degrees [facility] R [place] 11 degrees [facility] T [place] 49 degrees [facility] Diagnosis Normal sinus rhythm Nonspecific T wave abnormality Prolonged QT When compared with ECG of 07-DEC-2024 21:21, No significant change was found Confirmed by SULTAN PARHAM M.D. ([id number]) on 12/22/2024 5:48:18 PM [facility] 12/22/2024 1:08 PM CDT 12/22/2024 5:48 PM CDT Cheyanne Johnson NP ECG ORDERABLES Final Re sult [employer] [facility] * (ABNORMAL) Blood smear review (12/22/2024 12:19 PM CDT) RBC morphology Present(A) Comment:Testing performed by : [facility], [address] [place] [address]., [id number] Elliptocytes 3-7/HPF(A) [facility] Comment:Testing performed by : [facility], [address] [place] [address]., [id number] Platelet estimate Adequate [facility] Comment:Testing performed by : [address] [address] Blood 12/22/2024 12:1 9 PM CDT 12/22/2024 12:23 PM CDT Ang Rick MD LAB BLOOD ORDERABLES Final Result Performing Organization Address City/[facility]/ZIP Co de Phone Number [facility] [address] Department [place] [address] * eGFR (12/22/2024 12:19 PM CDT) eGFR [...] was last reviewed 2021. Testing performed by: [address] [address] Blood 12/22/2024 12:1 9 PM CDT 12/22/2024 12:23 PM CDT us Ang Rick MD LAB BLOOD ORDERABLES Final Result [facility] [address] Department [place] [address] * (ABNORMAL) Differential, auto (12/22/2024 12:19 PM CDT) Neutrophil abs 4.68 1.50 - 6.50 K/cumm Comment:Testing performed by : [address] [address] Imm gran abs 0.07 0.00 - 0.10 K/cumm [facility] Comment:Testing performed by : [address] [address] Lymphocyte abs 3.02 0.80 - 3.30 K/cumm [facility] Comment:Testing performed by : [address] [address] Monocyte abs 0.87(H) 0.20 - 0.80 K/cumm [facility] Comment:Testing performed by : [address] [address] Eosinophil abs 0.19 0.00 - 0.50 K/cumm [facility] Comment:Testing performed by : [address] [address] Basophil abs 0.05 0.00 - 0.10 K/cumm [facility] Comment:Testing performed by : [address] [address] Neutrophil pct 52.7 % [facility] Comment: Interpretive Data Percent cell count reference ranges are not reported, since discordance with absolute values may lead to misinterpretation of CBC data. Current Interpretive Data was last revised on 2017. Testing performed by: [address] [address] Imm gran pct 0.8 % [facility] Comment: Interpretive Data Percent cell count reference ranges are not reported, since discordance with absolute values may lead to misinterpretation of CBC data. Current Interpretive Data was last revised on 2017. Testing performed by: [address] [address] Lymphocyte pct 34.0 % [facility] Comment: Interpretive Data Percent cell count reference ranges are not reported, since discordance with absolute values may lead to misinterpretation of CBC data. Current Interpretive Data was last revised on 2017. Testing performed by: [address] [address] Monocyte pct 9.8 % [facility] Comment: Interpretive Data Percent cell count reference ranges are not reported, since discordance with absolute values may lead to misinterpretation of CBC data. Current Interpretive Data was last revised on 2017. Testing performed by: [address] [address] Eosinophil pct 2.1 % [facility] Comment: Interpretive Data Percent cell count reference ranges are not reported, since discordance with absolute values may lead to misinterpretation of CBC data. Current Interpretive Data was last revised on 2017. Testing performed by: [address] [address] Basophil pct 0.6 % [facility] Comment: Interpretive Data Percent cell count reference ranges are not reported, since discordance with absolute values may lead to misinterpretation of CBC data. Current Interpretive Data was last revised on 2017. Testing performed by: [address] [address] Blood 12/22/2024 12:1 9 PM CDT 12/22/2024 12:23 PM CDT us Ang Rick MD LAB BLOOD ORDERABLES Final Result [facility] [address] Department [place] [address] * (ABNORMAL) CBC with auto differential (12/22/2024 12:19 PM CDT) [facility] WBC 8.88 3.80 - 9.90 K/cumm Comment:Testing performed by : [address] [address] Hgb 8.4(L) 13.0 - 17.5 g/dL [facility] Comment:Testing performed by : [address] [address] Hct 24.6(L) 38.9 - 50.3 % [facility] Comment:Testing performed by : [address] [address] Plt 356 150 - 400 K/cumm [facility] Comment:Testing performed by : [address], [address] MPV 10.1 9.1 - 12.3 fL [facility] Comment:Testing performed by : [address], [address] RBC 2.82(L) 4.30 - 5.80 M/cumm [facility] Comment:Testing performed by : [address], [address] MCV 87.2 81.3 - 96.4 fL [facility] Comment:Testing performed by : [address] [address] MCH 29.8 27.1 - 33.3 pg [facility] Comment:Testing performed by : [address], [address] MCHC 34.1 32.3 - 35.7 g/dL [facility] Comment:Testing performed by : [address], [address] RDW CV 19.9(H) 11.1 - 14.9 % [facility] Comment:Testing performed by : [address] [address] RDW SD 62.7(H) 35.7 - 48.1 fL [facility] Comment:Testing performed by : [address] [address] NRBC abs 0.12(H) 0.00 - 0.01 K/cumm [facility] Comment:Testing performed by : [address] [address] Blood 12/22/2024 12:1 9 PM CDT 12/22/2024 12:23 PM CDT Ang Rick MD LAB BLOOD ORDERABLES Edite d Result - Final Performing Organization Address [facility] de Phone Number [address] [place] [address] * (ABNORMAL) Reticulocyte Count (12/22/2024 12:19 PM CDT) Retics, absolute 415(H) 20 - 87 K/cumm Comment:Testing performed by : [address] [address] Retics 14.7(H) 0.4 - 2.9 % [facility] Comment:Testing performed by : [address] [address] Reticulocyte Hgb 27.9(L) 30.5 - 38.0 pg [facility] Comment:Testing performed by : [address] [address] Blood 12/22/2024 12:1 9 PM CDT 12/22/2024 12:23 PM CDT Ang Rick MD LAB BLOOD ORDERABLES Final Result Performing Organization Address [facility] de Phone Number [address] [address] * (ABNORMAL) Comprehensive metabolic panel (12/22/2024 12:19 PM CDT) Pathologist [facility] Sodium 139 135 - 145 mmol/L Comment:Testing performed by : [address] [address] Potassium, pl 3.5 3.3 - 4.9 mmol/L [facility] Comment:Testing performed by : [address] [address] Chloride 103 97 - 110 mmol/L [facility] Comment:Testing performed by : [address], [place]., [address] CO2 24 22 - 32 mmol/L [facility] Comment:Testing performed by : [address], [place]., [address] Anion gap 12 2 - 15 mmol/L [facility] Comment:Testing performed by : [address], [place]., [address] BUN 3(L) 6 - 25 mg/dL [facility] Comment:Testing performed by : [address], [place]., [address] Creatinine 0.57(L) 0.80 - 1.30 mg/dL [facility] Comment:Testing performed by : [address] [address] Glucose 141 70 - 199 mg/dL [facility] [...] was last revised 2022. Testing performed by: [address] [address] Calcium 9.1 8.5 - 10.3 mg/dL [facility] Comment:Testing performed by : [address] [address] Bilirubin, total 5.4(H) 0.1 - 1.2 mg/dL [facility] Comment:Testing performed by : [address] [address] Protein, pl 7.9 6.5 - 8.5 g/dL [facility] Comment:Testing performed by : [address] [address] Albumin 4.4 3.5 - 5.0 g/dL [facility] Comment:Testing performed by : [facility], [address] [place] [address]., [address] Alk phos 391(H) 40 - 130 Units/L [facility] Comment:Testing performed by : [address] [address] ALT 50 7 - 55 Units/L [facility] Comment:Testing performed by : [address] [address] AST 86(H) 10 - 50 Units/L [facility] Comment:Testing performed by : [facility], [address] [place] [address]., [address] Blood 12/22/2024 12:1 9 PM CDT 12/22/2024 12:23 PM CDT us Ang Rick MD LAB BLOOD ORDERABLES Final Result [facility] [address] Department [place] [address] * eGFR (12/08/2024 9:50 AM CDT) eGFR [...] LAB BLOOD ORDERABLES Final Res ult [facility] [address] [place] [address] * (ABNORMAL) Comprehensive metabolic panel (12/08/2024 9:50 AM CDT) Sodium 137 135 - 145 mmol/L Potassium, pl 3.7 3.3 - 4.9 mmol/L [facility] Comment:Hemolyzed; Potassium value may be falsely elevated by as much as 1.0 mmol/L. Suggest redraw and reanalysis. Chloride 101 97 - 110 mmol/L [facility] CO2 24 22 - 32 mmol/L [facility] Anion gap 12 2 - 15 mmol/L [facility] BUN 4(L) 6 - 25 mg/dL [facility] Creatinine 0.53(L) 0.80 - 1.30 mg/dL [facility] Glucose 109 70 - 199 mg/dL [facility] Comment: Interpretive Data Fasting glucose >/= [...] 2022. Calcium 8.8 8.5 - 10.3 mg/dL [facility] Bilirubin, total 3.3(H) 0.1 - 1.2 mg/dL [facility] Protein, pl 7.8 6.5 - 8.5 g/dL [facility] Albumin 3.9 3.5 - 5.0 g/dL [facility] Alk phos 416(H) 40 - 130 Units/L [facility] ALT 35 7 - 55 Units/L [facility] AST 63(H) 10 - 50 Units/L [facility] Comment:Hemolyzed; result ma y be falsely elevated Blood 12/08/2024 9:50 AM CDT 12/08/2024 9:55 AM CDT us Rasta Garcia MD LAB BLOOD ORDERABLES Final Res ult Performing Organization Address [facility] Co de Phone Number [address] [place] [address] * Troponin T high-sensitivity series (baseline, 2hr, 4hr, 6hr) (12/07/2024 9:52 PM CDT) [facility] Trop T hs <6 <=22 ng/L Comment: Interpretive Data For further hscTnT resources including the diagnostic algorithm and an aid in interpretation, copy and paste this link: https://nrl.testcatalog.org/show/hsTrop Current Interpretive Data last revised 2020. Blood 12/07/2024 9:52 PM CDT 12/07/2024 9:57 PM CDT Guy HO LAB BLOOD ORDERABLES Final R esult Performing Organization Address [facility] de Phone Number [address] [address] * Sepsis Lactate w/ Reflex (12/07/2024 9:52 PM CDT) [facility] Sepsis Lactate 1.5 0.7 - 2.0 mmol/L Blood 12/07/2024 9:52 PM CDT 12/07/2024 9:57 PM CDT Guy HO LAB BLOOD ORDERABLES Final R esult Performing Organization Address [facility] Co de Phone Number [address] [place] [address] * eGFR (12/07/2024 9:52 PM CDT) [facility] eGFR >90 >=60 mL/min/1. 73 m2 Comment: [...] MD LAB BLOOD ORDERABLES F inal Result [facility] [address] Department [place] [address] * (ABNORMAL) CBC with auto differential (12/07/2024 9:52 PM CDT) WBC 15.51(H) 3.80 - 9.90 K/cumm Hgb 8.8(L) 13.0 - 17.5 g/dL [facility] Hct 26.3(L) 38.9 - 50.3 % [facility] Plt 368 150 - 400 K/cumm [facility] MPV 9.7 9.1 - 12.3 fL [facility] RBC 3.04(L) 4.30 - 5.80 M/cumm [facility] MCV 86.5 81.3 - 96.4 fL [facility] MCH 28.9 27.1 - 33.3 pg [facility] MCHC 33.5 32.3 - 35.7 g/dL [facility] RDW CV 18.3(H) 11.1 - 14.9 % [facility] RDW SD 57.4(H) 35.7 - 48.1 fL [facility] NRBC abs 0.05(H) 0.00 - 0.01 K/cumm [facility] Blood 12/07/2024 9:52 PM CDT 12/07/2024 9:57 PM CDT Lala Ace MD LAB BLOOD ORDERABLES Rashaun missy Result - Final [facility] [address] Department [place] [address] * (ABNORMAL) Manual Differential (12/07/2024 9:52 PM CDT) Differential Manual Cells Counted 100 [facility] Neutrophil abs 12.10(H) 1.50 - 6.50 K/cumm [facility] Lymphocyte abs 2.64 0.80 - 3.30 K/cumm [facility] Monocyte abs 0.78 0.20 - 0.80 K/cumm [facility] Neutrophil pct 78.0 % [facility] Comment: Interpretive Data Percent cell count reference ranges are not reported, since discordance with absolute values may lead to misinterpretation of CBC data. Current Interpretive Data was last revised on 2017. Lymphocyte pct 17.0 % [facility] Comment: Interpretive Data Percent cell count reference ranges are not reported, since discordance with absolute values may lead to misinterpretation of CBC data. Current Interpretive Data was last revised on 2017. Monocyte pct 5.0 % [facility] Comment: Interpretive Data Percent cell count reference ranges are not reported, since discordance with absolute values may lead to misinterpretation of CBC data. Current Interpretive Data was last revised on 2017. RBC morphology Present(A) [facility] Polychromasia 8-15/HPF(A) [facility] Sickle cells 1-2/HPF(A) [facility] Elliptocytes 8-15/HPF(A) [facility] Platelet estimate Automated Count Confirmed [facility] Giant platelets Present(A) [facility] Blood 12/07/2024 9:52 PM CDT 12/07/2024 9:57 PM CDT Lala Ace MD LAB BLOOD ORDERABLES Fin al Result Performing Organization Address [facility] de Phone Number [address] [address] * (ABNORMAL) Reticulocyte Count (12/07/2024 9:52 PM CDT) [facility] Retics, absolute 237(H) 20 - 87 K/cumm Retics 7.8(H) 0.4 - 2.9 % [facility] Reticulocyte Hgb 35.9 30.5 - 38.0 pg [facility] Blood 12/07/2024 9:52 PM CDT 12/07/2024 9:57 PM CDT Lala Ace MD LAB BLOOD ORDERABLES Fin al Result Performing Organization Address [facility] de Phone Number [address] [address] * (ABNORMAL) Comprehensive metabolic panel (12/07/2024 9:52 PM CDT) [facility] Sodium 137 135 - 145 mmol/L Potassium, pl 3.5 3.3 - 4.9 mmol/L [facility] Chloride 102 97 - 110 mmol/L [facility] CO2 24 22 - 32 mmol/L [facility] Anion gap 11 2 - 15 mmol/L [facility] BUN 4(L) 6 - 25 mg/dL [facility] Creatinine 0.56(L) 0.80 - 1.30 mg/dL [facility] Glucose 114 70 - 199 mg/dL [facility] Comment: Interpretive Data Fasting glucose >/= [...] 2022. Calcium 9.3 8.5 - 10.3 mg/dL [facility] Bilirubin, total 3.1(H) 0.1 - 1.2 mg/dL [facility] Protein, pl 8.8(H) 6.5 - 8.5 g/dL [facility] Albumin 4.5 3.5 - 5.0 g/dL [facility] Alk phos 472(H) 40 - 130 Units/L [facility] ALT 44 7 - 55 Units/L [facility] AST 73(H) 10 - 50 Units/L [facility] Blood 12/07/2024 9:52 PM CDT 12/07/2024 9:57 PM CDT us Nitza Oliver MD LAB BLOOD ORDERABLES F inal Result Performing Organization Address City/State/[facility] Co de Phone Number [facility] [address] [place] [address] * XR Chest 1 View (12/07/2024 9:35 PM CDT) Anatomical Region Laterality Modality Body, Chest N/A Computed Radiogr aphy 12/07/2024 9:51 PM CDT Narrative 12/07/2024 9:57 PM CDT EXAM DESCRIPTION: XR CHEST 1 VIEW REASON FOR STUDY: chest pain Pt states, I was just at [facility] from October 29 until yesterday when [...] Andrew Stubbs M.D. AR T: Report ID: [id number] Reading Location: [id number] Procedure Note Andrew Stubbs MD - 12/07/2024 [...] Andrew Stubbs M.D. AR T: Report ID: [id number] Reading Location: [id number] Nitza Oliver MD IMG XR PROCEDURES Stephanie [...] for uric acid stone formation. Source: [facility] Current Interpretive Data was last revised on 2017 Protein, ur ql Negative Negative [facility] Glucose, ur ql Negative Negative [facility] Ketones, ur Negative Negative [facility] Bilirubin, ur Negative Negative [facility] Blood, ur Negative Negative [facility] Urobilinogen, ur 2.0(A) <2.0 mg/dL [facility] Nitrite, ur Negative Negative [facility] Leukocyte esterase, ur Negative Negative [facility] UA reflex comment Reflex conditions for microscopic UA and culture not met. [facility] Urine 12/07/2024 9:33 PM CDT 12/07/2024 9:41 PM CDT Lala Ace MD LAB MICROBIOLOGY - GENER AL ORDERABLES Final Result [facility] [address] [place] [address] * ECG 12 lead (12/07/2024 9:21 PM CDT) Ventricular Rate EKG/Min 115 BPM [facility] Atrial Rate 115 BPM [facility] TX-Interval (MSEC) 180 ms [facility] QRS-Interval (MSEC) 82 ms [facility] QT-Interval (MSEC) 328 ms [facility] QTc 453 ms [facility] P [place] 44 degrees [facility] R [place] 11 degrees [facility] T [place] 16 degrees [facility] Diagnosis Sinus tachycardia Otherwise normal ECG When compared with ECG of 05-OCT-2024 05:33, Limb lead reversal corrected Confirmed by NING LEON M.D. ([id number]) on 12/08/2024 8:06:53 PM [facility] 12/07/2024 9:21 PM CDT 12/08/2024 8:06 PM CDT Lala Ace MD ECG ORDERABLES Final Re sult [facility] * Hepatitis C antibody Blood (08/29/2023 9:51 PM CDT) Hep C Ab Nonreactive Nonreactive Comment:Antibodies to HCV no t detected. Does NOT exclude the possibility of recent exposure to HCV. Current interpretive data was last revised on 22 Blood 08/29/2023 9:51 PM CDT 08/29/2023 10:10 PM CDT us Gordo Soliz MD LAB MICROBIOLOGY - GENE RAL ORDERABLES Final Result [facility] [place] [address] from Last 3 Months or Most Recently Relevant to Health Maintenance Insurance [facility] Advance Directives For more information, please contact: [phone] * Full Code (Latest Code Status on [...] 1:17 AM 09/23/2024 10:31 PM Care Teams Relocation Director Relationship Specialty Start Date End Date Laurent Gonzalez MD [address] [place] [address] PCP - General Hematology and Oncology 10/18/23 Ray Sainz MD [address] [facility] [address] [place] [address] 02/10/20 [place] [address] [address] [facility] [address] [place] [address] Consulting Physician Family Medicine 05/05/22 Miscellaneous, Not In File 12/14/22 [place] [id number] [address] [facility] [address] [place] [address] Consulting Physician Orthopedic Surgery 08/18/24
--- OUTSIDE RECORDS SUMMARY | 2025-02-14 21:58 | XMS_ITS | Clinical Summary ---
Author Organization [facility] Address [address] [place] [address] Care Team Providers Care Real Estate Leasing Agent Name Role Phone None, Provider MD Primary Care Provider Braeden Downs MD Unavailable [phone] Allergies Active Allergy Reactions Criticality Noted Date [...] Noted Date Diagnosed Date Sickle cell crisis ([facility]) 12/13/2024 Sickle cell anemia ([facility]) 11/09/2024 Sickle cell anemia with crisis ([facility]) 10/29/2024 Sickle cell pain crisis ([facility]) 2024 Encounters Date Type Department Care Team Description 01/29/2025 4:57 PM CDT - 01/29/2025 8:55 PM CDT Emergency [facility] [place] [address] Noe Gross NP Back Pain Discharge Disposition: Home or Self Care (Routine Discharge) 01/29/2025 Travel 01/18/2025 3:27 PM CDT - 01/18/2025 7:53 PM CDT Emergency [facility] [place] [address] Deo Cantrell MD Sickle Cell Pain Discharge Disposition: Home or Self Care (Routine Discharge) 01/18/2025 Travel 12/31/2024 3:41 PM CDT - 12/31/2024 11:27 PM CDT Emergency [facility] [place] [address] [place] [address] Navi Saenz MD Sickle Cell Pain Discharge Disposition: Home or Self Care (Routine Discharge) 12/31/2024 Travel 12/13/2024 2:12 PM CDT - 12/22/2024 11:28 AM CDT [facility] [address] [place] [address] Stephan Galicia MD Romick, Jordan K, MD Wagner, Roy M, DO Sickle Cell Pain Discharge Disposition: Home or Self Care (Routine Discharge) 12/13/2024 Travel 12/10/2024 Hospital Follow-up Call [facility] [place] [address] [place] [address] Renetta Espinoza LPN Follow Up Call ([facility] 11/09-12/07/24) 11/16/2024 Travel 11/15/2024 Travel 11/09/2024 12:31 PM CDT - 12/07/2024 4:17 PM CDT [facility] 5[facility] [place] [address] Audra Jovel MD Jumean, Khaled, MD Jerkovich, [...] drink = 0.6 oz pur e alcohol) [facility] Utilities Answer Date Recorded In the past 12 months has th e electric, gas, oil, or water [email or web address] threatened to shut off services in your [...] any time in the past 12 m [facility], were you homeless or living in a group home (including now)? No 12/14/2024 Sex and Gender [...] URINE CLEAN CATCH 01/29/2025 6:43 PM CDT [facility] COLOR (U) YELLOW 01/29/2025 7:00 PM CDT [facility] TRANSPARENCY CLEAR 01/29/2025 7:00 PM CDT [facility] SPECIFIC GRAVITY (U) 1.011 1.001 - 1.030 01/29/2025 7:00 PM CDT [facility] U PH 6.0 5.0 - 9.0 01/29/2025 7:00 PM CDT [facility] LEUKOCYTES (U) NEGATIVE NEGATIVE 01/29/2025 7:00 PM CDT [facility] NITRITES NEGATIVE NEGATIVE 01/29/2025 7:00 PM CDT [facility] PROTEIN RANDOM (U) NEGATIVE <30 MG/DL 01/29/2025 7:00 PM CDT [facility] GLUCOSE (U) NORMAL NORMAL MG/DL 01/29/2025 7:00 PM CDT [facility] KETONES MG/DL (U) NEGATIVE NEGATIVE MG/DL 01/29/2025 7:00 PM CDT [facility] UROBILINOGEN 2.0(A) NORMAL MG/DL 01/29/2025 7:00 PM CDT [facility] BILIRUBIN (U) NEGATIVE NEGATIVE MG/DL 01/29/2025 7:00 PM CDT [facility] BLOOD (U) NEGATIVE NEGATIVE 01/29/2025 7:00 PM CDT [facility] URINE SPECIMEN OBTAINED BY CLEAN CATCH PROCEDURE / Unknown 01/29/2025 6:37 PM CDT us Noe Gross CAMOUFLAGE ASSEMBLER URINE ORDERABLES Final Result [facility] [address] [place] [address], * XR LUMB SPINE 3V (01/29/2025 5:58 [...] 6:11 PM Narrative 01/29/2025 7:[address] [address] Examination: XR LUMB SPINE 3V Exam time: [...] Procedure Note Hilton Watkins MD - 01/29/[address] [address] Examination: XR LUMB SPINE 3V Exam time: [...] DO, 01/29/2025 6:11 PM us Noe Gross CAMOUFLAGE ASSEMBLER GENERAL IMAGING Final Result * (ABNORMAL) RETICULOCYTE CT, AUTO (01/29/2025 5:05 PM CDT) Only the most recent of28 resultswithin the time period is included. RETICULOCYTE COUNT 14.7(H) 0.8 - 2.1 % 01/29/2025 5:50 PM CDT [facility] Comment:Verified by dilution . ABSOLUTE RETICULOCYTE 0.40(H) 0.03 - 0.11 x10'6/uL 01/29/2025 5:50 PM CDT [facility] IMMATURE RETIC FRACTION 41.6(H) 2.3 - 13.4 % 01/29/2025 5:50 PM CDT [facility] RETIC HGB 31.0 28.0 - 35.0 PG 01/29/2025 5:50 PM CDT [facility] 01/29/2025 5:05 PM CDT us Noe Gross NP LABORATORY Final Result [facility] [address] [place] [address], [place] [phone] * (ABNORMAL) COMPREHENSIVE METABOLIC PANEL (01/29/2025 5:05 PM CDT) Only the most recent of16 resultswithin the time period is included. GLUCOSE 135(H) 70 - 99 MG/DL 01/29/2025 5:55 PM CDT [facility] BUN 2(L) 7 - 18 MG/DL 01/29/2025 5:55 PM CDT [facility] CREATININE S/P/B 0.54(L) 0.7 - 1.3 MG/DL 01/29/2025 5:55 PM CDT [facility] SODIUM S/P/B 139 136 - 145 MMOL/L 01/29/2025 5:55 PM CDT [facility] POTASSIUM S/P/B 3.5 3.5 - 5.1 MMOL/L 01/29/2025 5:55 PM CDT [facility] CHLORIDE S/P/B 110 97 - 115 MMOL/L 01/29/2025 5:55 PM CDT [facility] CO2 23.6 21 - 32 MMOL/L 01/29/2025 5:55 PM CDT [facility] CALCIUM S/P/B 8.7 8.5 - 10.1 MG/DL 01/29/2025 5:55 PM CDT [facility] BILIRUBIN TOTAL S/P/B 5.4(H) 0.2 - 1.2 MG/DL 01/29/2025 5:55 PM CDT [facility] Comment: THIS ASSAY IS NOT RECOMMENDED FOR PATIENTS UNDERGOING TREATMENT WITH ELTROMBOPAG DUE TO THE POTENTIAL FOR FALSELY ELEVATED RESULTS. TOTAL PROTEIN S/P/B 8.1 6.4 - 8.2 G/DL 01/29/2025 5:55 PM CDT [facility] ALBUMIN S/P/B 3.7 3.4 - 5.0 G/DL 01/29/2025 5:55 PM CDT [facility] AST 59(H) 15 - 37 U/L 01/29/2025 5:55 PM CDT [facility] ALT 31 16 - 60 U/L 01/29/2025 5:55 PM CDT [facility] ALKALINE PHOSPHATASE S/P/B 307(H) 50 - 136 U/L 01/29/2025 5:55 PM CDT [facility] ANION GAP 5.4 2 - 10 MMOL/L 01/29/2025 5:55 PM CDT [facility] BUN CREATININE RATIO 3.7(L) 6 - 26 01/29/2025 5:55 PM T [facility] A/G RATIO 0.8(L) 1.0 - 2.0 RATIO 01/29/2025 5:55 PM T [facility] GFR ESTIMATE >90 >90 ML/MIN/1.7 3 M2 01/29/2025 5:55 PM T [facility] Comment: NOTE: eGFR is not [...] us Noe Gross NP LABORATORY Final Result [facility] [address] [place] [address], [place] [phone] * (ABNORMAL) CBC W/DIFF AUTOMATED (01/29/2025 5:05 PM CDT) Only the most recent of33 resultswithin the time period is included. [facility] Signature WBC 11.82(H) 4.5 - 11.0 x10'3/uL 01/29/2025 5:50 PM CDT [facility] RBC 2.74(L) 4.70 - 6.10 x10'6/uL 01/29/2025 5:50 PM CDT [facility] HGB 8.4(L) 14.0 - 18.0 G/DL 01/29/2025 5:50 PM CDT [facility] HCT 24.0(L) 43.0 - 54.0 % 01/29/2025 5:50 PM CDT [facility] MCV 87.6 80.0 - 94.0 FL 01/29/2025 5:50 PM CDT [facility] MCH 30.7 27.0 - 31.0 PG 01/29/2025 5:50 PM CDT [facility] MCHC 35.0 32.0 - 36.0 G/DL 01/29/2025 5:50 PM CDT [facility] RDW 23.0(H) 11.5 - 14.5 % 01/29/2025 5:50 PM CDT [facility] PLT 300 130 - 400 x10'3/uL 01/29/2025 5:50 PM CDT [facility] MPV 10.2 9.3 - 12.2 FL 01/29/2025 5:50 PM CDT [facility] DIFFERENTIAL TYPE MANUAL DIFFERENTIAL 01/29/2025 6:06 PM CDT [facility] SEG NEUTROPHILS 59 % 6:06 PM CDT [facility] LYMPHOCYTES 27 % 01/29/2025 6:06 PM CDT [facility] ATYP. LYMPHS 1 % 01/29/2025 6:06 PM CDT [facility] MONOCYTES 9 % 01/29/2025 6:06 PM CDT [facility] EOSINOPHILS 2 % 01/29/2025 6:06 PM CDT [facility] BASOPHILS 1 % 01/29/2025 6:06 PM CDT [facility] MYELOCYTES 1 % 01/29/2025 6:06 PM CDT [facility] NRBC 2(H) 0 /100 WBC 01/29/2025 6:06 PM CDT [facility] ABS. NEUTROPHILS 6.97 1.80 - 7.70 x10'3/uL 01/29/2025 6:06 PM CDT [facility] ABS. LYMPHOCYTES 3.31 1.00 - 4.80 x10'3/uL 01/29/2025 6:06 PM CDT [facility] ABS. MONOCYTES 1.06(H) 0.30 - 0.82 x10'3/uL 01/29/2025 6:06 PM CDT [facility] ABS. EOSINOPHILS 0.24 0.04 - 0.54 x10'3/uL 01/29/2025 6:06 PM CDT [facility] ABS. BASOPHILS 0.12(H) 0.01 - 0.08 x10'3/uL 01/29/2025 6:06 PM CDT [facility] ABS. MYELOCYTES 0.12(H) 0.00 x10'3/uL 01/29/2025 6:06 PM CDT [facility] ABS. NUCLEATED RBC'S 0.24(H) 0.00 - 0.01 x10'3/uL 01/29/2025 6:06 PM CDT [facility] RBC MORPHOLOGY SLIDE REVIEWED 2024 6:06 PM CDT [facility] ANISO 2+ 01/29/2025 6:06 PM CDT [facility] POIKLO 1+ 01/29/2025 6:06 PM CDT [facility] TARGET CELLS 1+ 01/29/2025 6:06 PM CDT [facility] SICKLE CELL 1+ 01/29/2025 6:06 PM CDT [facility] PLT EST. ADEQUATE 01/29/2025 6:06 PM CDT [facility] 01/29/2025 5:05 PM CDT us Noe Gross NP LABORATORY Final Result [facility] [address] [place] [address], * EKG Reading (01/18/2025 4:52 PM CDT) [...] 95. No ectopy us Deo Cantrell MD [place] [facility] Final Result * ECG 12 lead (01/18/2025 4:46 PM CDT) Only the most recent of5 resultswithin the time period is included. 01/18/2025 4:46 PM CDT Narrative [facility] ([facility] RAD - 01/19/2025 6:[address] 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 Test Date: 2025-01-18 Pat Name: JOHNNY SIMON Department: 41 Room: EXAM25 Gender: Male Enterprise Integration Developer: [id number] : 1995 Requested By: VIPUL MURCIA Order Number: [id number] Reading : Humberto Blake Measurements Intervals [place] Rate: 95 P: 4 NC: 184 QRS: 39 QRSD: 90 T: 29 QT: 366 QTc: 461 Interpretive Statements SINUS RHYTHM WITH SINUS ARRHYTHMIA NONSPECIFIC T-WAVE ABNORMALITY Compared to ECG 12/31/2024 15:39:50 Sinus tachycardia no longer present T-wave abnormality still present us Vipul O Murcia MANAGER EMS ECG ORDERABLES Final Result [facility] ([facility]) RAD * XR CHEST PORTABLE [...] 4:40 PM Narrative 01/18/2025 4:41 PM CDT [place] [address] Examination: XR CHEST PORTABLE Exam time: 01/18/2025 [...] Procedure Note Emory Beyer MD - 01/18/[address] [address] Examination: XR CHEST PORTABLE Exam time: 01/18/2025 [...] 7 <79 ng/L 01/18/2025 6:01 PM CDT [facility] Comment: HIGH DOSES OF BIOTIN, TROPONIN-SPECIFIC AUTOANTIBODIES, AND ANTIBODY THERAPY CONTAINING HAMA MAY INTERFERE WITH THIS TEST RESULT. CORRELATION TO CLINICAL HISTORY AND PRESENTATION RECOMMENDED. 01/18/2025 3:46 PM CDT Vipul Murcia APRN LABORATORY Final Result [facility] [address] [place] [address], * MAGNESIUM (12/16/2024 6:36 AM CDT) Only the most recent of3 resultswithin the time period is included. MAGNESIUM 2.1 1.8 - 2.4 MG/DL 12/16/2024 12:30 PM CDT [facility] 12/16/2024 6:36 AM CDT Brenden Steel DO LABORATORY Final Result [facility] [address] [place] [address], * CT CHEST W CON (12/14/2024 9:13 PM CDT) Anatomical Region Laterality Modality Chest Computed Tomogra phy 12/15/2024 12:5 5 AM CDT Impressions 12/15/2024 1:01 AM CDT Impression: 1. No acute cardiopulmonary abnormalities. 2. Mild bilateral dependent atelectasis. 3. Additional chronic findings as above. Referred By: Interpreted By: Ryley Lane MD, 12/15/2024 12:55 AM Narrative 12/15/2024 1:01 AM CDT [place] [address] Examination: CT chest with IV contrast. Clinical [...] Procedure Note Ryley Lane DO - 12/15/2024 [place] [id number] Examination: CT chest with IV contrast. Clinical [...] 2:15 PM Narrative 12/13/2024 2:18 PM CDT [facility] [address] [place], [place] [address] Examination: Chest 2 View History: Chest pain, sickle cell anemia DATE/TIME: 12/13/2024 2:02 PM Comparison: November 27, 2024 Technique: PA and lateral views were obtained. Findings: Heart size, mediastinal contours and pulmonary vasculature are within normal limits. No pulmonary consolidation, pleural effusion or pneumothorax. No acute osseous abnormality. Procedure Note Jose Tran MD - 12/13/2024 [facility] [address] [place], [place] [address] Examination: Chest 2 View History: Chest pain, [...] - 18.0 G/DL 12/06/2024 3:43 PM CDT [facility] HCT 24.6(L) 43.0 - 54.0 % 12/06/2024 3:43 PM CDT [facility] 12/06/2024 2:34 PM CDT us Anival Lacey DO LABORATORY Final Resul t [facility] [address] [place] [address], [place] [phone] * XR SHOULDER RT MIN 2V (12/04/2024 4:18 PM CDT) Anatomical Region Laterality Modality Shoulder Radiographic Mireya ging 12/04/2024 4:17 PM CDT Impressions 12/04/2024 4:20 PM CDT IMPRESSION: 1) Abnormal study again demonstrating 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 Ordered By: SANA MARTIN Interpreted By: Robert Vera MD, 12/04/2024 4:17 PM Narrative 12/04/2024 4:20 PM [address] [address] Examination: XR SHOULDER RT MIN 2V Exam [...] Procedure Note Robert Vera MD - 12/04/[address] [address] Examination: XR SHOULDER RT MIN 2V Exam [...] - 99 MG/DL 11/29/2024 6:38 AM CDT [facility] BUN 3(L) 7 - 18 MG/DL 11/29/2024 6:38 AM CDT [facility] CREATININE S/P/B 0.61(L) 0.7 - 1.3 MG/DL 11/29/2024 6:38 AM CDT [facility] SODIUM S/P/B 135(L) 136 - 145 MMOL/L 11/29/2024 6:38 AM CDT [facility] POTASSIUM S/P/B 3.6 3.5 - 5.1 MMOL/L 11/29/2024 6:38 AM CDT [facility] CHLORIDE S/P/B 105 97 - 115 MMOL/L 11/29/2024 6:38 AM CDT [facility] CO2 25.4 21 - 32 MMOL/L 11/29/2024 6:38 AM CDT [facility] CALCIUM S/P/B 8.7 8.5 - 10.1 MG/DL 11/29/2024 6:38 AM CDT [facility] ANION GAP 4.6 2 - 10 MMOL/L 11/29/2024 6:38 AM CDT [facility] BUN CREATININE RATIO 4.9(L) 6 - 26 11/29/2024 6:38 AM CDT [facility] GFR ESTIMATE >90 >90 ML/MIN/1.7 3 M2 11/29/2024 6:38 AM CDT [facility] Comment: NOTE: eGFR is not [...] Anival Tolbert DO LABORATORY Final Resul t [facility] [address] [place] [address], * CT HEAD WO CON (11/27/2024 5:46 PM CDT) Anatomical Region Laterality Modality Head Computed Tomogra phy 11/28/2024 2:02 AM CDT Impressions 11/28/2024 2:06 AM CDT IMPRESSION: 1. No CT evidence of an acute intracranial abnormality. 2. No maxillofacial bone fracture. Referred By: Interpreted By: Mohamud Stubbs MD, 11/28/2024 2:02 AM Narrative 11/28/2024 2:06 AM CDT [facility] [address] [place], [place] [address] EXAMINATION: CT HEAD WO CON, CT FACIAL [...] Procedure Note Mohamud Stubbs MD - 11/28/[address] [address] EXAMINATION: CT HEAD WO CON, CT FACIAL [...] 2:02 AM Narrative 11/28/2024 2:06 AM CDT [facility] [address] [place], [place] [address] EXAMINATION: CT HEAD WO CON, CT FACIAL [...] Procedure Note Mohamud Stubbs MD - 11/28/[address] [address] EXAMINATION: CT HEAD WO CON, CT FACIAL [...] - 200.0 MG/DL 11/27/2024 9:40 AM CDT [facility] 11/27/2024 8:45 AM CDT nAival Tolbert DO LABORATORY Final Resul t Performing Organization Address City/[facility]/ZIP Co de Phone Number [facility] [address] [place] [address], [place] [phone] * (ABNORMAL) LDH, LACTATE DEHYDROGENASE (11/27/2024 8:45 AM CDT) Only the most recent of2 resultswithin the time period is included. LDH 279(H) 87 - 241 UNITS/L 11/27/2024 1:28 PM CDT [facility] 11/27/2024 8:45 AM CDT Anival Tolbert DO LABORATORY Final Resul t Performing Organization Address City/[facility]/ZIP Co de Phone Number [facility] [address] [place] [address], [place] [phone] * (ABNORMAL) BILIRUBIN, TOTAL AND DIRECT (11/17/2024 4:47 AM CDT) BILIRUBIN TOTAL S/P/B 1.5(H) 0.2 - 1.2 MG/DL 11/17/2024 11:24 AM CDT [facility] Comment: THIS ASSAY IS NOT RECOMMENDED FOR PATIENTS UNDERGOING TREATMENT WITH ELTROMBOPAG DUE TO THE POTENTIAL FOR FALSELY ELEVATED RESULTS. BILIRUBIN DIRECT S/P/B 0.7(H) 0.0 - 0.20 MG/DL 11/17/2024 11:24 AM CDT [facility] BILIRUBIN INDIRECT S/P/B 0.8 0.0 - 0.9 MG/DL 11/17/2024 11:24 AM CDT [facility] 11/17/2024 4:47 AM CDT Franco Quintana MD LABORATORY Final Result Performing Organization Address [facility]/ZIP Co de Phone Number [facility] [address] [place] [address], [place] [phone] * IRON SAT PANEL (IRON,IBC,%SAT) (11/16/2024 6:52 AM CDT) IRON 85 65.0 - 175.0 MCG/DL 11/18/2024 1:52 PM CDT [facility] IRON BINDING CAPACITY 278 250 - 450 MCG/DL 11/18/2024 1:52 PM CDT [facility] IRON SATURATION 31 20 - 55 % 1:52 PM CDT [facility] 11/16/2024 6:52 AM CDT Hasmukh Childers MD LABORATORY Final Result Performing Organization Address City/[facility]/ZIP Co de Phone Number [facility] [address] [place] [address], * (ABNORMAL) FERRITIN (11/16/2024 6:52 AM CDT) FERRITIN 397.1(H) 8.0 - 388.0 NG/ML 11/17/2024 11:30 PM CDT [facility] 11/16/2024 6:52 AM CDT Hasmukh Childers MD LABORATORY Final Result [facility] [address] [place] [address], [place] [phone] * (ABNORMAL) POTASSIUM, SERUM (11/15/2024 5:35 PM CDT) POTASSIUM S/P/B 3.4(L) 3.5 - 5.1 MMOL/L 11/15/2024 7:01 PM CDT [facility] 11/15/2024 5:35 PM CDT Franco Quintana MD LABORATORY Final Result Performing Organization Address City/[facility] Co de Phone Number [facility] [address] [place] [address], [place] [phone] from Last 3 Months Insurance [facility] [employer] BL[employer] Advance [...] 11:13 PM 10/04/2024 4:31 PM Care Teams Real Estate Leasing Agent Relationship Specialty Start Date End Date None, Provider, PCP - General UNKNOWN PHYSICIAN SPECIALTY 09/28/24 Braeden Somers MD [address] [place] [address] Medical Oncologist HEMATOLOGY/ONCOLOGY 12/07/24 6
--- OUTSIDE RECORDS SUMMARY | 2025-02-14 21:58 | XMS_ITS | CCD ---
Author Name Interface, [address] Address More breakthroughs. More victories. [address] Oncology Address [place] [address] Reason for Visit Social History
[2025-02-14 22:01] LABS: Lymphocytes Absolute Manual 2.22 K/mm3 (1.1-4.5); Lymphocytes Percent Manual 19.0 % (18-44); Monocytes Absolute Manual 0.58 K/mm3 (0.1-0.90); Monocytes Percent Manual 5 % (3-9); Neutrophils Percent Manual 76 % (46-73); Total Cells Counted 100
[2025-02-14 22:02] LABS: Anisocytosis 2+; Giant Platelets Present; Microcytosis 2+ (NORMAL); Ovalocytes 1+; Poikilocytosis 3+
[2025-02-14 22:03] LABS: Hypochromasia 3+; Polychromasia Occasional; Schistocytes Rare; Sickle Cells 3+; Smudge Cells FEW; Target Cells 1+
[2025-02-14 22:42] VITALS: BP 122/85; PULSE 112; RESP 24; O2SAT 95
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
== END 2025-02-14 23:13 | disposition home or self-care (01) ==
PROVIDERS: Emergency Provider Emergency Medicine; PCP Pathology Blood Banking & Transfusion Medicine
DX: D57.00 Hb-SS disease with crisis, unspecified (principal); R00.0 Tachycardia, unspecified; Z86.73 Personal history of transient ischemic attack (TIA), and cerebral infarction without residual deficits; J45.909 Unspecified asthma, uncomplicated
CPT/HCPCS: 36415; 71046; 80053; 83690; 84484; 85025; 85046; 85610; 85730; 93005; 96361; 96374; 96375; 99284; J1171; J1200; J1885; J2405; J7120

== ENCOUNTER 2025-02-24 12:48 | Inpatient (IN) | payer MEDICAID, SELFPAY ==
--- OUTSIDE RECORDS SUMMARY | 2025-02-15 10:49 | XMS_ITS | Encounter Summary ---
Author Organization [facility] Healthcare Address [address] [place] [address] Care Team Providers Care Bpm Architect Name Role Phone Ray Sainz MD Unavailable [phone] Gordo Herrera MD Unavailable [phone] Miscellaneous, Not In File Unavailable Unava ilable Laurent Gonazlez MD Primary Care Provider [phone] Tobin Terrell MD Unavailable [phone] Reason for Visit * Auth/Cert (Routine) Specialty Diagnoses / Procedures Referred By Contac t Referred To Contact Diagnoses Sickle cell pain crisis (HCC) Sickle Cell Crisis Procedures NA Referral ID Status Reason Start Date Expiration Date Visits Re quested Visits Authorized [id number] 1 1 Encounter Details Date Type Department Care Team (Latest Contact Info) Description 02/15/2025 10:49 AM CDT - Present Hospital Encounter [facility] 5 Med Surg [address] [place] [address] Forrest Mason MD [facility]0 [facility] [place] [address] Ezequiel Carrizales MD [address] [facility] [place] [address] Brie Munroe DO [address] [facility] [place] [address] Danay Higginbotham MD [address] [facility] [place] [address] Vasoocclusive sickle cell crisis (HCC) (Primary Dx); Urine retention; Thrombocytopenia Social History Tobacco Use Types Packs/Day Years [...] week 12/08/2024 How often do you attend [facility] or mu-ism services? Never 12/08/2024 Do you [...] in the past 12 m [facility], were you homeless or living in a residential (including now)? No 12/08/2024 Social Connection and Isolation Panel Answer Date Recorded In a typical week, how many times do you talk on the phone with family, friends, or neighbors? Patient declined 02/16/2025 How often do you get togethe r with friends or relatives? Patient declined 02/16/2025 How often do you attend quaker or mu-ism serv ices? Never 02/16/2025 Do you belong to any clubs o r organizations such as quaker groups, unions, fraternal or athletic groups, or school groups? No 02/16/2025 How often do you attend meet ings of the clubs or organizations you belong to? Never 02/16/2025 Marital Status Not on file 02/16/2025 Overall Financial Resource Strain (CARDIA) Answe r Date Recorded How hard is it for you to pa y for the very basics like food, housing, medical care, and heating? Not hard at all 02/16/2025 Hunger Vital Sign Answer Date Recorded Within the past 12 months, y ou worried that your food would run out before you got the money to buy more. Never true 02/17/20 25 Within the past 12 months, t he food you bought just didn't last and you didn't have money to get more. Never true 02/16/2025 PRAPARE - Transportation Answer Date Re corded In the past 12 months, has l ack of transportation kept you from medical appointments or from getting medications? Patient declined 02/16/2025 In the past 12 months, has l ack of transportation kept you from meetings, work, or from getting things needed for daily living? Patient declined 02/16/2025 Housing Stability Vital Sign Answer Samy e Recorded In the last 12 months, was t here a time when you were not able to pay the mortgage or rent on time? Patient declined 02/17/20 In the past 12 months, how m any times have you moved where you were living? 1 02/16/2025 At any time in the past 12 m [facility], were you homeless or living in a residential (including now)? No 02/16/2025 [facility] Utilities Answer Date Recorded In the past 12 months has e electric, gas, oil, or water [employer] threatened to shut off services in your home? No 02/16/2025 Personal Safety Answer Date Recorded Have you ever been in or are you currently in a harmful physical or emotional relationship or is someone making you feel afraid or unsafe? Denies 02/15/2025 Education Answer Date Recorded What is the highest level of school you have completed or the highest degree you have received? 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 Gender Identity Male 12/06/2024 9:44 PM CDT Sexual Orientation Straight 12/06/2024 9: 44 PM CDT documented as of this encounter Last Filed Vital Signs Vital Sign Reading Time Taken Comments Blood Pressure 118/80 02/24/2025 9:05 AM CDT Pulse 74 02/24/2025 10:00 AM CDT Temperature 36.7 C (98.1 F) 02/24/2025 9:05 AM CDT Respiratory Rate 18 02/24/2025 9:05 AM CDT Oxygen Saturation 97% 02/24/2025 9:05 AM CDT Inhaled Oxygen Concentration - - Weight 106.9 kg (235 lb 9.6 oz) 02/23/2025 3:16 AM CDT Height 177.8 cm (5' 10) 02/15/2025 11: 00 AM CDT Body Mass Index 33.81 02/15/2025 11:00 AM CDT documented in this encounter Discharge Instructions * Discharge Instr - Diet* Claudia Hartmann RD - 02/22/2025 12:29 PM CDT Recommend to eat a generally healthy diet with foods that include a variety of fruits, vegetables, whole-grain breads, low-fat dairy products, beans, lean meats, and fish. Limit fast food, sugary drinks, excess salt, and desserts. Limit sugary drinks like lemonade, regular soda, Gatorade, and sweettea and drink water throughout the day. Call [phone] to speak with a dietitian about any diet related concerns. Additional resources are available online from the Academy of Nutrition and Dietetics at www.eatright.org * Discharge Instr - Other Orders* Erica Daniel LCSW - 02/17/2025 12:08 PM CDT [email or web address] Insurance: no-cost community resources near you [email or web address] Ecologist: Tash ([phone]) documented in this encounter Ordered Prescriptions Prescription Sig Dispense Quantity Refills Last Filled Start Date End Date naloxone (NARCAN) 0.4 mg/mL injection Infuse 1 mL (0.4 mg total) IV every 10 (ten) minutes as needed for opioid reversal or respiratory depression 1 mL 02/24/2025 folic acid (FOLVITE) 1 mg tabletIndications: To prevent folic acid deficiency sickle cell disease Take 1 tablet (1 mg total) by mouth daily 30 tablet 02/24/2025 5 albuterol HFA (PROVENTIL HFA,VENTOLIN HFA,PROAIR HFA) 90 mcg/actuation inhaler Inhale 2 puffs as needed for wheezing (q 20 min prn wheezing/SOB) 1 each 02/24/2025 6 documented in this encounter Progress Notes * Danay Higginbotham MD - 02/24/2025 11:12 AM CDT General Medicine Daily Progress Subjective Chief complaint of Recurrent Sickle Cell Crisis. HPI/Summary: 29 y/o M w/ PMHx of Sickle Cell Disease, Hx of Avascular Necrosis who presented for SOB, CP, and generalized pain symptoms refractory to home percocet use. Hospital course notable for findings of recurrent sickle cell crisis w/ supportive care utilized for treatment along w/ pain control. Hematology/oncology consulted during hospital stay. Interval History: Patient was seen this morning. Continues to complain of pain. Requesting more IV dilaudid. We had a lengthy discussion about his multiple hospitalizations and his need to routinely follow up with his hand dry cleaner for ongoing management for these pain crises. He mentioned that his current Pain Contract with his hand dry cleaner states that he can not receive opiates from other providers. I reached out to Dr Gonzalez to verify; pending response. But during IDR, this was confirmed. Patient also mentioned that he can only get appts with his hand dry cleaner every 2-3 months. No labs were drawn this morning because he refused due to pain Past Medical History: Diagnosis Date Acute chest [...] Temp Min: 36.6 ??C (97.9 ??F) Max: 37.1 ??C (98.8 ??F) Pulse Min: 71 Max: 86 BP Min: 100/70 Max: 125/70 Resp Min: 16 Max: 20 SpO2 Min: 96 % Max: 100 % Most Recent : Vitals: 02/24/25 0905 BP: 118/80 Pulse: 74 Resp: 18 Temp: 36.7 ??C (98.1 ??F) SpO2: 97% I/O last 2 completed shifts: In: 0 Out: 1999 [Urine:1999] No intake/output data recorded. Physical Exam: Physical Exam Vitals reviewed. Constitutional: General: He is not in acute distress. Appearance: He is obese. HENT: Head: Normocephalic and atraumatic. Eyes: General: No scleral icterus. Extraocular Movements: Extraocular movements intact. Conjunctiva/sclera: Conjunctivae normal. Pupils: Pupils are equal, round, and reactive to light. Cardiovascular: Rate and Rhythm: Normal rate. Abdominal: General: Bowel sounds are normal. There is no distension. Palpations: Abdomen is soft. Neurological: General: No focal deficit present. Mental Status: He is alert. Lab/Radiology/Diagnostic Review: Laboratory review: Lab results in the last 24 hours: No results found for this or any previous visit (from the past 24 hours). CT Chest PE (CTA) Abdomen Pelvis W Contrast Result Date: 02/15/2025 Narrative: EXAM DESCRIPTION: CT CHEST PE (CTA) ABDOMEN PELVIS W CONTRAST REASON FOR STUDY: chest pain/sickle cell/diarrhea/nausea chest pain/sickle cell/diarrhea/nausea. Patient refused lowering jeans for scans. TECHNIQUE: CT angiogram of the chest with routine abdomen and pelvis performed with intr avenous and without oral contrast using helical scanning technique with dynamic intravenous contrast injection. Reconstructed coronal and sagittal MPR images reviewed. All images stored on PACS. 3D MIP images of the chest rendered on scanning unit and reviewed at time of interpretation. Automated exposure control was used as a dose optimization technique for this examination. CONTRAST TYPE/DOSE: 100mL of IOVERSOL 350 MG IODINE/ML INTRAVENOUS SYRINGE injected via intravenous COMPARISON: CT abdomen pelvis 01/08/2025 FINDINGS: CHEST CHEST VASCULATURE: No acute pulmonary thromboembolism. LUNGS: Bilateral ground-glass opacities with smooth interlobular septal thickening, greatest in the lower lob es may represent edema. No suspicious pulmonary nodule. No focal consolidation. PLEURA: No effusion. No pneumothorax. MEDIASTINUM/VICTORIANO: No identified masses or abnormal nodes. HEART: Heart size is normal with no pericardial effusion. AXILLA: No adenopathy. CHEST WALL: No masses. No subcutaneous air. HARDWARE/LINES/TUBES: None. MUSCULOSKELETAL CHEST: No significant abnormality. ABDOMEN/PELVIS LIVER: Normal size. No identified cystic or solid masses. GALLBLADDER: Surgically absent BILE DUCTS: No intrahepatic or extrahepatic ductal dilatation. SPLEEN: Auto splenectomy PANCREAS: No identified cystic or solid masses. No significant calcifications. No adjacent inflammation or peripancreatic fluidcollections. Pancreatic duct not dilated. ADRENALS: Normal. KIDNEYS/URINARY TRACT: No identified significant cystic or solid masses. No visualized stones. No hydronephrosis or hydroureter. Symmetric enhancement. Urinary bladder is unremarkable. GI: No dilated bowel loops. No obvious wall thickening. Normal appendix. No significant diverticular disease. PERITONEUM: No ascites or free air. RETROPERITONEUM: No mass or adenopathy. REPRODUCTIVE: No significant abnormality. VASCULATURE ABDOMEN: No abdominal aortic aneurysm. MUSCULOSKELETAL ABDOMEN PELVIS: No acute finding. OTHER: No significant abn ormality. IMPRESSION: No evidence of pulmonary embolism. No acute abnormality of the abdomen or pelvis. THIS IS AN ELECTRONICALLY VERIFIED FINAL REPORT 02/15/2025 8:24 PM - Electronically signed by Anne Merchant M.D. FT: FT Report ID: [id number] Reading Location: [id number] XR Chest 1Vw Portable Result Date: 01/30/2025 Narrative: PROCEDURE: XR CHEST 1VW PORTABLE DATE/TIME OF EXAM: 01/30/2025 6:40 AM INDICATION: R07.9: Chest pain, unspecified type COMPARISON: 12/24/2024 ADDITIONAL CLINICAL INFORMATION (if provided): Ordering Provider Reason For Exam: Findings: The heart is borderline enlarged. The aorta is normal in caliber. The lungs are now clear. There is no confluent infiltrate or effusion. There is no pneumothor ax. There is no mass or adenopathy.. . Impression: IMPRESSION: Borderline cardiac silhouette for age. No acute pulmonary infiltrate > Interpreting Provider: Leopoldo Martin MD on 01/30/2025 8:40 AM XR LUMB SPINE 3V Result Date: 01/29/2025 Narrative: [facility] [address] Examination: XR LUMB SPINE 3V Exam time: 01/29/2025 5:12 PM Clinical history: Low back pain onset 3 days ago. History of sickle cell disease Comparison: Chest radiograph 01/18/2025. CT chest, abdomen, and pelvis 10/30/2024. Technique: 3 views of the lumbar spine. Findings: There are 5 nonrib- bearing lumbar-type vertebral bodies. There are chronic appearing superior and inferior endplate changes with an H shaped configuration in keeping with history of sickle cell. There is normal alignment of theanterior and posterior elements. Facet alignment is maintained. Intervertebral disc spaces are relat ively preserved. No definite acute displaced fractures identified in the lumbar spine. There is curvilinear sclerosis within the left femoral head suggestive of osteonecrosis. Somewhat heterogeneous sclerosis of the pelvis and sacrum, similar to CT 10/30/2024. Cholecystectomy clips are noted. Impression: IMPRESSION: 1. No acute osseous abnormality. 2. [...] By: Roland Oliva DO, 01/29/2025 6:11 PM Current Facility-Administered Medications Medication Dose Route Frequency Provider Last Rate Last Admin albuterol HFA (PROVENTIL HFA,VENTOLIN HFA,PROAIR HFA) 90 mcg/actuation inhaler 2 puff 2 puff inhalation PRN Deana Crandall PA albuterol HFA (PROVENTIL HFA,VENTOLIN HFA,PROAIR HFA) 90 mcg/actuation inhaler 2 puff 2 puff inhalation QID PRN (RT) Deana Crandall PA Carrier Fluids for Secondary Infusion - 0.9% Sodium Chloride 0-999 mL intravenous PRN Deana Crandall PA 25 mL/hr at 09/28/25 0423 Rate Verify at 02/20/25 0423 dextrose 5% and sodium chloride 0.45% infusion (premix) 100 mL/hr intravenous Continuous Ezequiel Carrizales MD Stopped at 02/20/25 1923 folic acid (FOLVITE) tablet 1 mg 1 mg oral Daily Munroe, Saim, DO 1 mg at 02/22/25 0814 guaiFENesin (ROBITUSSIN) 20 mg/mL oral liquid 200 mg 200 mg oral QID PRN Deana Crandall PA naloxone (NARCAN) 0.4 mg/mL injection 0.4 mg 0.4 mg intravenous Q10 Min PRN Deana Crandall PA ondansetron (ZOFRAN) injection 4 mg 4 mg intravenous Q4H PRN Deana Crandall PA 4 mg at 02/19/25 0759 oxyCODONE-acetaminophen (PERCOCET) 10-325 mg per tablet 3 tablet 3 tablet oral Q8H PRN Forrest Mason MD 3 tablet at 02/22/25 0818 ramelteon (ROZEREM) tablet 8 mg 8 mg oral Nightly PRN Deana Crandall PA senna-docusate (PERICOLACE) 8.6-50 mg per tablet 1 tablet 1 tablet oral Nightly Deana Crandall PA sodium chloride 0.9% flush 0.5-20 mL 0.5-20 mL intra-catheter Q8H MICHEAL (ALT) Deana Crandall PA 10mL at 02/21/25 2247 sodium chloride 0.9% flush 0.5-20 mL 0.5-20 mL intra-catheter PRN Deana Crandall PA 10 mL at 02/19/25 0621 Assessment/Plan Active Problems: Shortness of breath Diarrhea Abnormal chest x-ray Chest pain S/P splenectomy Sickle-cell crisis Cough PTSD (post-traumatic stress disorder) Plan: #Sickle Cell Crisis #Chronic Pain #Hx of Avascular Necrosis - c/w folic acid supplement - oncology following during hospital stay, patient to follow-up w/ Dr. Gonzalez on discharge - continue with current pain regimen--prn percocet q8 hrs and iv dilaudid q8 hrs. I also added roxicodone, which the patient refused. - monitor H/H--> pt has refused lab draws - transfuse for Hgb <7 prn - hemonc following - dc today. Patient needs to follow up with Dr Gonzalez on discharge - Code Status: Full Code DVT PPx: NA Stress Ulcer PPx: NA Catheter: NA Diet: Regular diet Disposition: dc today * Danay Higginbotham MD - 02/23/2025 2:39 PM CDT General Medicine Daily Progress Subjective Chief complaint of Recurrent Sickle Cell Crisis. HPI/Summary: 29 y/o M w/ PMHx of Sickle Cell Disease, Hx of Avascular Necrosis who presented for SOB, CP, and generalized pain symptoms refractory to home percocet use. Hospital course notable for findings of recurrent sickle cell crisis w/ supportive care utilized for treatment along w/ pain control. Hematology/oncology consulted during hospital stay. Interval History: Patient was seen this morning. States that he is in 8/10 pain, located on his right lower back buttocks and leg. Though he states he is motivated to go home tomorrow, he request IV Dilaudid today to get him through this episode of crisis. Past Medical History: Diagnosis Date Acute chest [...] Temp Min: 36.8 ??C (98.2 ??F) Max: 37.4 ??C (99.3 ??F) Pulse Min: 73 Max: 98 BP Min: 98/60 Max: 132/78 Resp Min: 18 Max: 20 SpO2 Min: 93 % Max: 97 % Most Recent : Vitals: 02/23/25 1129 BP: 100/72 Pulse: 86 Resp: 20 Temp: 36.8 ??C (98.2 ??F) SpO2: 96% I/O last 2 completed shifts: In: 360 [P.O.:360] Out: 2024 [Urine:2024] I/O this shift: In: - Out: 550 [Urine:550] Physical Exam: Physical Exam Vitals reviewed. Constitutional: General: He is not in acute distress. Appearance: He is obese. HENT: Head: Normocephalic and atraumatic. Eyes: General: No scleral icterus. Extraocular Movements: Extraocular movements intact. Conjunctiva/sclera: Conjunctivae normal. Pupils: Pupils are equal, round, and reactive to light. Cardiovascular: Rate and Rhythm: Normal rate. Abdominal: General: Bowel sounds are normal. There is no distension. Palpations: Abdomen is soft. Neurological: General: No focal deficit present. Mental Status: He is alert. Lab/Radiology/Diagnostic Review: Laboratory review: Lab results in the last 24 hours: No results found for this or any previous visit (from the past 24 hours). CT Chest PE (CTA) Abdomen Pelvis W Contrast Result Date: 02/15/2025 Narrative: EXAM DESCRIPTION: CT CHEST PE (CTA) ABDOMEN PELVIS W CONTRAST REASON FOR STUDY: chest pain/sickle cell/diarrhea/nausea chest pain/sickle cell/diarrhea/nausea. Patient refused lowering jeans for scans. TECHNIQUE: CT angiogram of the chest with routine abdomen and pelvis performed with intr avenous and without oral contrast using helical scanning technique with dynamic intravenous contrast injection. Reconstructed coronal and sagittal MPR images reviewed. All images stored on PACS. 3D MIP images of the chest rendered on scanning unit and reviewed at time of interpretation. Automated exposure control was used as a dose optimization technique for this examination. CONTRAST TYPE/DOSE: 100mL of IOVERSOL 350 MG IODINE/ML INTRAVENOUS SYRINGE injected via intravenous COMPARISON: CT abdomen pelvis 01/08/2025 FINDINGS: CHEST CHEST VASCULATURE: No acute pulmonary thromboembolism. LUNGS: Bilateral ground-glass opacities with smooth interlobular septal thickening, greatest in the lower lob es may represent edema. No suspicious pulmonary nodule. No focal consolidation. PLEURA: No effusion. No pneumothorax. MEDIASTINUM/VICTORIANO: No identified masses or abnormal nodes. HEART: Heart size is normal with no pericardial effusion. AXILLA: No adenopathy. CHEST WALL: No masses. No subcutaneous air. HARDWARE/LINES/TUBES: None. MUSCULOSKELETAL CHEST: No significant abnormality. ABDOMEN/PELVIS LIVER: Normal size. No identified cystic or solid masses. GALLBLADDER: Surgically absent BILE DUCTS: No intrahepatic or extrahepatic ductal dilatation. SPLEEN: Auto splenectomy PANCREAS: No identified cystic or solid masses. No significant calcifications. No adjacent inflammation or peripancreatic fluidcollections. Pancreatic duct not dilated. ADRENALS: Normal. KIDNEYS/URINARY TRACT: No identified significant cystic or solid masses. No visualized stones. No hydronephrosis or hydroureter. Symmetricenhancement. Urinary bladder is unremarkable. GI: No dilated bowel loops. No obvious wall thickening. Normal appendix. No significant diverticular disease. PERITONEUM: No ascites or free air. RETROPERITONEUM: No mass or adenopathy. REPRODUCTIVE: No significant abnormality. VASCULATURE ABDOMEN: No abdominal aortic aneurysm. MUSCULOSKELETAL ABDOMEN PELVIS: No acute finding. OTHER: No significant abn ormality. IMPRESSION: No evidence of pulmonary embolism. No acute abnormality of the abdomen or pelvis. THIS IS AN ELECTRONICALLY VERIFIED FINAL REPORT 02/15/2025 8:24 PM - Electronically signed by Anne Merchant M.D. FT: FT Report ID: [id number] Reading Location: [id number] XR Chest 1Vw Portable Result Date: 01/30/2025 Narrative: PROCEDURE: XR CHEST 1VW PORTABLE DATE/TIME OF EXAM: 01/30/2025 6:40 AM INDICATION: R07.9:Chest pain, unspecified type COMPARISON: 12/24/2024 ADDITIONAL CLINICAL INFORMATION (if provided): Ordering Provider Reason For Exam: Findings: The heart is borderline enlarged. The aorta is normal in caliber. The lungs are now clear. There is no confluent infiltrate or effusion. There is no pneumotho rax. There is no mass or adenopathy.. . Impression: IMPRESSION: Borderline cardiac silhouette for age. No acute pulmonary infiltrate > Interpreting Provider: Leopoldo Martin MD on 01/30/2025 8:40 AM XR LUMB SPINE 3V Result Date: 01/29/2025 Narrative: [place] [id number] Examination: XR LUMB SPINE 3V Exam time: 01/29/2025 5:12 PM Clinical history: Low back pain onset 3 days ago. History of sickle cell disease Comparison: Chest radiograph 01/18/2025. CT chest, abdomen, and pelvis 10/30/2024. Technique: 3 views of the lumbar spine. Findings: There are 5 nonrib- bearing lumbar-type vertebral bodies. There are chronic appearing superior and inferior endplate changes with an H shaped configuration in keeping with history of sickle cell. There is normal alignment of theanterior and posterior elements. Facet alignment is maintained. Intervertebral disc spaces are relat ively preserved. No definite acute displaced fractures identified in the lumbar spine. There is curvilinear sclerosis within the left femoral head suggestive of osteonecrosis. Somewhat heterogeneous sclerosis of the pelvis and sacrum, similar to CT 10/30/2024. Cholecystectomy clips are noted. Impression: IMPRESSION: 1. No acute osseous abnormality. 2. [...] By: Roland Oliva DO, 01/29/2025 6:11 PM Current Facility-Administered Medications Medication Dose Route Frequency Provider Last Rate Last Admin albuterol HFA (PROVENTIL HFA,VENTOLIN HFA,PROAIR HFA) 90 mcg/actuation inhaler 2 puff 2 puff inhalation PRN Deana Crandall PA albuterol HFA (PROVENTIL HFA,VENTOLIN HFA,PROAIR HFA) 90 mcg/actuation inhaler 2 puff 2 puff inhalation QID PRN (RT) Deana Crandall PA Carrier Fluids for Secondary Infusion - 0.9% Sodium Chloride 0-999 mL intravenous PRN Deana Crandall PA 25 mL/hr at 02/20/25 0423 Rate Verify at 02/20/25 0423 dextrose 5% and sodium chloride 0.45% infusion (premix) 100 mL/hr intravenous Continuous Ezequiel Carrizales MD Stopped at 02/20/25 1923 folic acid (FOLVITE) tablet 1 mg 1 mg oral Daily Munroe, Saim, DO 1 mg at 02/22/25 0814 guaiFENesin (ROBITUSSIN) 20 mg/mL oral liquid 200 mg 200 mg oral QID PRN Deana Crandall PA naloxone (NARCAN) 0.4 mg/mL injection 0.4 mg 0.4 mg intravenous Q10 Min PRN Deana Crandall PA ondansetron (ZOFRAN) injection 4 mg 4 mg intravenous Q4H PRN Deana Crandall PA 4 mg at 02/19/25 0759 oxyCODONE-acetaminophen (PERCOCET) 10-325 mg per tablet 3 tablet 3 tablet oral Q8H PRN Forrest Mason MD 3 tablet at 02/22/25 0818 ramelteon (ROZEREM) tablet 8 mg 8 mg oral Nightly PRN Deana Crandall PA senna-docusate (PERICOLACE) 8.6-50 mg per tablet 1 tablet 1 tablet oral Nightly Deana Crandall PA sodium chloride 0.9% flush 0.5-20 mL 0.5-20 mL intra-catheter Q8H MICHEAL (ALT) Deana Crandall PA 10mL at 02/21/25 2247 sodium chloride 0.9% flush 0.5-20 mL 0.5-20 mL intra-catheter PRN Deana Crandall PA 10 mL at 02/19/25 0621 Assessment/Plan Active Problems: Shortness of breath Diarrhea Abnormal chest x-ray Chest pain S/P splenectomy Sickle-cell crisis Cough PTSD (post-traumatic stress disorder) Plan: #Sickle Cell Crisis #Chronic Pain #Hx of Avascular Necrosis - baseline Hgb 7-9, Hgb on admission 7.7, current Hgb 8.5 - c/w folic acid supplement - oncology following during hospital stay, patient to follow-up w/ Dr. Gonzalez on discharge - no concern for active or acute blood loss - monitor H/H - transfuse for Hgb <7 - Patient and I had an extensive conversation about his current pain regimen. He is satisfied with receiving only Percocet, and requests having Dilaudid for breakthrough pain. As of this morning, Percocet scheduled for every 8 hours. He explains that it takes 1 hour for the Percocet to kick in, andafterwards he is pain-free for only 3 hours. Patient expresses that he is highly motivated to leavetomorrow, but needs 1 more day to get over the pain crisis. - Continue Percocet Q 8 hours - I initially added 0. 2 mg of IV Dilaudid every 8 hours so that every 4 hours the patient will have pain medication. Later on, he asked for 0.5 mg IV dilaudid instead. Order placed -Starting tomorrow, plan is to DC IV Dilaudid in anticipation for discharge tomorrow. - Patient needs to follow up with outpatient oncologist and pain management. Code Status: Full Code DVT PPx: NA Stress Ulcer PPx: NA Catheter: NA Diet: Regular diet Disposition: pending pain control on oral regiments, anticipate discharge in 24 hours Medical Decision Making Complexity: Moderate Brie Munroe DO * Claudia Hartmann, RD - 02/22/2025 12:29 PM CDT NUTRITION ASSESSMENT Nutrition Status: Patient does not meet AAIM (ASPEN) criteria for malnutrition at this time. REASON FOR ASSESSMENT: Length of Stay Encounter Date: 02/22/25 12:29 PM Admission Date: 02/15/2025 LOS: 7 days HPI: Patient is a 29 y.o. male with past medical history below, 02/22/25 - Patient screened for length of stay day 7. Seen by RD services on previous admission 12/16-01/02/24 at [facility], 02/09-02/17/24, 03/30-04/05/24, 11/01-11/09/24 at [facility], 05/12-05/15/24 at [facility], 07/28-08/05/24, 04/15-04/28/24, 01/24-02/03/24, 10/20-10/29/24 at [facility], 10/05- 10/19/24, 01/01-01/18/25 at [facility],11/09-12/07/24, 12/13-12/22/24 at [facility], 01/29-02/12/25 at [facility]. Objective Past Medical History: Diagnosis Date [...] activity: Defer Alcohol Use: Not At Risk (01/29/2025) Received from [facility] Health AUDIT-C Q1: How often do you have a drink containing alcohol?: Never Q2: How many drinks containing alcohol do you have on a typical day when you are drinking?: Patientdoes not drink Q3: How often do you have six or more drinks on one occasion?: Never MEDICATION/LAB REVIEW: Scheduled Meds: folic acid, 1 mg, oral, Daily senna-docusate, 1 tablet, oral, Nightly sodium chloride 0.9%, 0.5-20 mL, intra-catheter, Q8H MICHEAL (ALT) Continuous Infusions: dextrose 5% and sodium chloride 0.45%, 100 mL/hr, Last Rate: Stopped (02/20/251922) PRN Meds: albuterol HFA albuterol HFA sodium chloride 0.9% guaiFENesin naloxone ondansetron oxyCODONE-acetaminophen ramelteon sodium chloride 0.9% Recent Labs Lab Units 02/21/25 1414 SODIUM mmol/L 137 POTASSIUM PLASMA mmol/L 3.3 CHLORIDE mmol/L 102 CO2 mmol/L 24 BUN SERUM mg/dL 3* CREATININE mg/dL 0.40* [id number] mL/min/1.73 m2 >90 CALCIUM mg/dL 8.7 ALBUMIN g/dL 4.1 Recent Labs Lab Units 02/21/25 1414 02/20/25 1847 02/18/25 1220 02/17/25 1304 02/16/25 0950 02/15/25 1553 GLUCOSE mg/dL 94 99 112 125 104 121 ALT Date Value Ref Range Status 02/21/2025 26 7 - 55 Units/L Final Comment: Testing performed by: [facility], [address] [place] [address]., [id number] AST Date Value Ref Range Status 02/21/2025 36 10 - 50 Units/L Final Comment: Testing performed by: [address] [id number] Alk phos Date Value Ref Range Status 02/21/2025 276 (H) 40 - 130 Units/L Final Comment: Testing performed by: [facility], [address] [place] [address]., [id number] Lab Results Component Value Date HGBA1C 4.7 05/11/2024 HDL 29 (L) 05/12/2024 LDLCALC 64 05/12/2024 CHOL 109 05/12/2024 TRIG 78 05/12/2024 NURSING ASSESSMENT: Last BM Date: 02/21/25 Bowel Sounds (All Quadrants): Active Emesis Assessment Emesis Color/Appearance: Yellow Ivan Scale Score: 21 Skin Integrity: Other (Comment) Vital Signs BP: 106/66 Temp: 36.6 ??C (97.9 ??F) Pulse: 68 Resp: 18 SpO2: 97 % Intake/Output Summary (Last 24 hours) at 02/22/2025 1229 Last data filed at 02/22/2025 0905 Gross per 24 hour Intake 360 ml Output 600 ml Net -240 ml Adult Malnutrition Scoring Tool (MST) What diet do you follow at home?: none Have You Recently Lost Weight Without Trying?: [...] to get more.: Never true Anthropometrics Weight: 109.4 kg (241 lb 1.6 oz) Admission Weight : 109.4 kg Weight Change: 0.49 kg (1.10 lbs) IBW/kg (Calculated) : 75.3 kg Height: 177.8 cm (5' 10) Weight in (lb) to have BMI = 25: 173.9 BMI (Calculated): 34.6 Wt Readings from Last 10 Encounters: 02/15/25 109.4 kg (241 lb 1.6 oz) 02/14/25 108.9 kg (240 lb) 01/18/25 107.3 kg (236 lb 8.9 oz) 01/01/25 108.9 kg (240 lb) 12/23/24 110.9 kg (244 lb 7.8 oz) 12/22/24 110.9 kg (244 lb 7.8 oz) 12/08/24 105.2 kg (231 lb 14.4 oz) 11/01/24 106 kg (233 lb 11 oz) 10/16/24 111 kg (244 lb 11.4 oz) 09/21/24 108.4 kg (238 lb 15.7 oz) ESTIMATED NEEDS: Total Energy Needs: 2070 kcal Total Energy Needs + Fever Factor: 2070 Equation Chosen to Use by RD:Pedrito Todd Activity Factor: 1 Weight Used for Equation Calculations (RD Determined): 109.4 kg (241 lb 1.6 oz) . Total Protein Estimated Needs (gm): 131.23 Protein Needs Based on g/k.2 Type of Weight Used forEstimated Protein : Current Total Fluid Estimated Needs: 0 Fluid Needs Based on : 1 ml/kcal Type of Weight Used for Estimated Fluid Needs: Current Total Fluid Estimated Needs Comments:: 2070 mL (1 mL/kcal) Dietary Orders (From admission, onward) Start Ordered 02/15/25 1202 Adult Diet Regular; Gatorade Diet effective now Question Answer Comment (MHB/MHE) Diet type Regular Other Services: Gatorade 02/15/25 1202 Allergies: Reviewed. IMPRESSION: 02/22/25 - Patient is on a regular diet with gatorade, and consuming 72.5% for meals documented since 02/15. Patient not really forthcoming with information during RD visit. 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 Previous RD note from 02/12/25 at [facility] reports patient consumed 0-90% of meals, was getting THRIVE ice cream and gatorade for all meals. Patient denied any weight loss, UBW is around 250 lb. Weight history in EMR/Care Everywhere shows weight gain of + 37.1 lb since 02/25/24, + 11.1 lb since 08/23/24, + 8.1 lb since 12/07/24, + 1.1 lb since 02/14/25. RD confirmed with diet office, patient is ordering and consuming meals during hospital admission. At previousRD visit 01/10/25 , He usually eats pretty good. Intake depends on the day, usually eats when he ishungry. Does his own cooking and grocery shopping. Does not follow any dietary restrictions. Patient stated is not receiving gatorade- no meals documented yet today. Prefers blue gatorade- note added to [employer] software of preference. No needs or questions, reports he will be leaving tomorrow anyway. He denied any problems of chewing/swallowing. UOP 400. LBM 02/21. He is from home and will likely return after discharge. RD will continue to monitor. AAIM (ASPEN) MALNUTRITION ASSESSMENT: Date of completion: 02/22/25 ASPEN/AND Malnutrition Screening: Patient does not meet malnutrition criteria NUTRITION FOCUSED PHYSICAL EXAM: Not completed, no concerns for malnutrition at this time. NUTRITION DIAGNOSIS: Nutrition Diagnosis 1: Inadequate oral intake Related to: Nausea, Vomiting Evidenced by: Patient interview INTERVENTION(S): Summary: Assess for nutrition changes, Initial assessment, Encouragement 02/22/25 - RD ordered daily Wts per MNT Protocol. Preferences added to [employer] program. GOAL(S): Adequate nutrition to meet estimated needs by next assessment, Oral intake to meet 75% estimated nutritional needs by next assessment MONITORING/EVALUATION: Discharge plans, I/O, Labs, Plan of care, PO intake, Weight changes Diet Instructions Recommend to eat a generally healthy diet with foods that include a variety of fruits, vegetables, whole-grain breads, low-fat dairy products, beans, lean meats, and fish. Limit fast food, sugary drinks, excess salt, and desserts. Limit sugary drinks like lemonade, regular soda, Gatorade, and sweettea and drink water throughout the day. Call [phone] to speak with a dietitian about any diet related concerns. Additional resources are available online from the Academy of [employer]etics at www.eatright.org Claudia Hartmann RD * Brie Munroe DO - 02/22/2025 9:33 AM CDT General Medicine Daily Progress Subjective Chief complaint of Recurrent Sickle Cell Crisis. HPI/Summary: 29 y/o M w/ PMHx of Sickle Cell Disease, Hx of Avascular Necrosis who presented for SOB, CP, and generalized pain symptoms refractory to home percocet use. Hospital course notable for findings of recurrent sickle cell crisis w/ supportive care utilized for treatment along w/ pain control. Hematology/oncology consulted during hospital stay. Interval History: 1st hospital encounter this AM. Hospital course reviewed. Reviewed plans for de-escalation and cessation of IV narcotic use today w/ utilization of PO narcotic home therapy. Patientdisgruntled and frustrated as he was promised management of my own care by other doctor and requesting more IV pain medications and agreement for discharge tomorrow as planned. Educated patient that IV narcotics will not be utilized like this as they are to be used for severe/breakthrough pain and not a bridge to discharge. Educated that we are monitoring his symptoms on oral regiment which is what he will be discharged on. Past Medical History: Diagnosis Date Acute chest [...] Temp Min: 36.6 ??C (97.9 ??F) Max: 37 ??C (98.6 ??F) Pulse Min: 79 Max: 86 BP Min: 97/60 Max: 112/72 Resp Min: 18 Max: 18 SpO2 Min: 94 % Max: 98 % Most Recent : Vitals: 02/22/25 0803 BP: 97/60 Pulse: 82 Resp: 18 Temp: 36.6 ??C (97.9 ??F) SpO2: 97% I/O last 2 completed shifts: In: - Out: 400 [Urine:400] I/O this shift: In: 360 [P.O.:360] Out: 600 [Urine:600] Physical Exam: Physical Exam Vitals reviewed. Constitutional: General: He is not in acute distress. Appearance: He is obese. HENT: Head: Normocephalic and atraumatic. Eyes: General: No scleral icterus. Extraocular Movements: Extraocular movements intact. Conjunctiva/sclera: Conjunctivae normal. Pupils: Pupils are equal, round, and reactive to light. Cardiovascular: Rate and Rhythm: Normal rate. Abdominal: General: Bowel sounds are normal. There is no distension. Palpations: Abdomen is soft. Neurological: General: No focal deficit present. Mental Status: He is alert. Lab/Radiology/Diagnostic Review: Laboratory review: Lab results in the last 24 hours: Recent Results (from the past 24 hours) Comprehensive metabolic panel Collection Time: 02/21/25 2:14 PM Result Value Ref Range Sodium 137 135 - 145 mmol/L Potassium, pl 3.3 3.3 - 4.9 mmol/L Chloride 102 97 - 110 mmol/L CO2 24 22 - 32 mmol/L Anion gap 11 2 - 15 mmol/L BUN 3 (L) 6 - 25 mg/dL Creatinine 0.40 (L) 0.80 - 1.30 mg/dL Glucose 94 70 - 199 mg/dL Calcium 8.7 8.5 - 10.3 mg/dL Bilirubin, total 4.4 (H) 0.1 - 1.2 mg/dL Protein, pl 7.5 6.5 - 8.5 g/dL Albumin 4.1 3.5 - 5.0 g/dL Alk phos 276 (H) 40 - 130 Units/L ALT 26 7 - 55 Units/L AST 36 10 - 50 Units/L CBC with auto differential Collection Time: 02/21/25 2:14 PM Result Value Ref Range WBC 9.68 3.80 - 9.90 K/cumm Hgb 8.5 (L) 13.0 - 17.5 g/dL Hct 24.1 (L) 38.9 - 50.3 % Plt 349 150 - 400 K/cumm MPV 10.1 9.1 - 12.3 fL RBC 2.65 (L) 4.30 - 5.80 M/cumm MCV 90.9 81.3 - 96.4 fL MCH 32.1 27.1 - 33.3 pg MCHC 35.3 32.3 - 35.7 g/dL RDW CV 21.8 (H) 11.1 - 14.9 % RDW SD 72.1 (H) 35.7 - 48.1 fL NRBC abs 0.15 (H) 0.00 - 0.01 K/cumm Reticulocyte Count Collection Time: 02/21/25 2:14 PM Result Value Ref Range Retics, absolute 369 (H) 20 - 87 K/cumm Retics 13.9 (H) 0.4 - 2.9 % Reticulocyte Hgb 31.6 30.5 - 38.0 pg Lactate dehydrogenase (LD) Collection Time: 02/21/25 2:14 PM Result Value Ref Range Lactate dehydrogenase (LDH) 407 (H) 100 - 250 Units/L Differential, auto Collection Time: 02/21/25 2:14 PM Result Value Ref Range Neutrophil abs 5.30 1.50 - 6.50 K/cumm Imm gran abs 0.03 0.00 - 0.10 K/cumm Lymphocyte abs 2.98 0.80 - 3.30 K/cumm Monocyte abs 1.17 (H) 0.20 - 0.80 K/cumm Eosinophil abs 0.15 0.00 - 0.50 K/cumm Basophil abs 0.05 0.00 - 0.10 K/cumm Neutrophil pct 54.8 % Imm gran pct 0.3 % Lymphocyte pct 30.8 % Monocyte pct 12.1 % Eosinophil pct 1.5 % Basophil pct 0.5 % eGFR Collection Time: 02/21/25 2:14 PM Result Value Ref Range eGFR >90 >=60 mL/min/1.[address] Chest PE (CTA) Abdomen Pelvis W Contrast Result Date: 02/15/2025 Narrative: EXAM DESCRIPTION: CT CHEST PE (CTA) ABDOMEN PELVIS W CONTRAST REASON FOR STUDY: chest pain/sickle cell/diarrhea/nausea chest pain/sickle cell/diarrhea/nausea. Patient refused lowering jeans for scans. TECHNIQUE: CT angiogram of the chest with routine abdomen and pelvis performed with intr avenous and without oral contrast using helical scanning technique with dynamic intravenous contrast injection. Reconstructed coronal and sagittal MPR images reviewed. All images stored on PACS. 3D MIP images of the chest rendered on scanning unit and reviewed at time of interpretation. Automated exposure control was used as a dose optimization technique for this examination. CONTRAST TYPE/DOSE: 100mL of IOVERSOL 350 MG IODINE/ML INTRAVENOUS SYRINGE injected via intravenous COMPARISON: CT abdomen pelvis 01/08/2025 FINDINGS: CHEST CHEST VASCULATURE: No acute pulmonary thromboembolism. LUNGS: Bilateral ground-glass opacities with smooth interlobular septal thickening, greatest in the lower lob es may represent edema. No suspicious pulmonary nodule. No focal consolidation. PLEURA: No effusion. No pneumothorax. MEDIASTINUM/VICTORIANO: No identified masses or abnormal nodes. HEART: Heart size is normal with no pericardial effusion. AXILLA: No adenopathy. CHEST WALL: No masses. No subcutaneous air. HARDWARE/LINES/TUBES: None. MUSCULOSKELETAL CHEST: No significant abnormality. ABDOMEN/PELVIS LIVER: Normal size. No identified cystic or solid masses. GALLBLADDER: Surgically absent BILE DUCTS: No intrahepatic or extrahepatic ductal dilatation. SPLEEN: Auto splenectomy PANCREAS: No identified cystic or solid masses. No significant calcifications. No adjacent inflammation or peripancreatic fluidcollections. Pancreatic duct not dilated. ADRENALS: Normal. KIDNEYS/URINARY TRACT: No identified significant cystic or solid masses. No visualized stones. No hydronephrosis or hydroureter. Symmetric enhancement. Urinary bladder is unremarkable. GI: No dilated bowel loops. No obvious wall thickening. Normal appendix. No significant diverticular disease. PERITONEUM: No ascites or free air. RETROPERITONEUM: No mass or adenopathy. REPRODUCTIVE: No significant abnormality. VASCULATURE ABDOMEN: No abdominal aortic aneurysm. MUSCULOSKELETAL ABDOMEN PELVIS: No acute finding. OTHER: No significant abno rmality. IMPRESSION: No evidence of pulmonary embolism. No acute abnormality of the abdomen or pelvis. THIS IS AN ELECTRONICALLY VERIFIED FINAL REPORT 02/15/2025 8:24 PM - Electronically signed by Anne Merchant M.D. FT: FT Report ID: [id number] Reading Location: [id number] XR Chest 1Vw Portable Result Date: 01/30/2025 Narrative: PROCEDURE: XR CHEST 1VW PORTABLE DATE/TIME OF EXAM: 01/30/2025 6:40 AM INDICATION: R07.9: Chest pain, unspecified type COMPARISON: 12/24/2024 ADDITIONAL CLINICAL INFORMATION (if provided): Ordering Provider Reason For Exam: Findings: The heart is borderline enlarged. The aorta is normal in caliber. The lungs are now clear. There is no confluent infiltrate or effusion. There is no pneumothor ax. There is no mass or adenopathy.. . Impression: IMPRESSION: Borderline cardiac silhouette for age. No acute pulmonary infiltrate > Interpreting Provider: Leopoldo Martin MD on 01/30/2025 8:40 AM XR LUMB SPINE 3V Result Date: 01/29/2025 Narrative: [address] [address] Examination: XR LUMB SPINE 3V Exam time: 01/29/2025 5:12 PM Clinical history: Low back pain onset 3 days ago. History of sickle cell disease Comparison: Chest radiograph 01/18/2025. CT chest, abdomen, and pelvis 10/30/2024. Technique: 3 views of the lumbar spine. Findings: There are 5 nonrib- bearing lumbar-type vertebral bodies. There are chronic appearing superior and inferior endplate changes with an H shaped configuration in keeping with history of sickle cell. There is normal alignment of theanterior and posterior elements. Facet alignment is maintained. Intervertebral disc spaces are relat ively preserved. No definite acute displaced fractures identified in the lumbar spine. There is curvilinear sclerosis within the left femoral head suggestive of osteonecrosis. Somewhat heterogeneous sclerosis of the pelvis and sacrum, similar to CT 10/30/2024. Cholecystectomy clips are noted. Impression: IMPRESSION: 1. No acute osseous abnormality. 2. [...] By: Roland Oliva DO, 01/29/2025 6:11 PM Current Facility-Administered Medications Medication Dose Route Frequency Provider Last Rate Last Admin albuterol HFA (PROVENTIL HFA,VENTOLIN HFA,PROAIR HFA) 90 mcg/actuation inhaler 2 puff 2 puff inhalation PRN Deana Crandall PA albuterol HFA (PROVENTIL HFA,VENTOLIN HFA,PROAIR HFA) 90 mcg/actuation inhaler 2 puff 2 puff inhalation QID PRN (RT) Deana Crandall PA Carrier Fluids for Secondary Infusion - 0.9% Sodium Chloride 0-999 mL intravenous PRN Deana Crandall PA 25 mL/hr at 02/20/25 0423 Rate Verify at 02/20/25 0423 dextrose 5% and sodium chloride 0.45% infusion (premix) 100 mL/hr intravenous Continuous Ezequiel Carrizales MD Stopped at 02/20/25 1923 folic acid (FOLVITE) tablet 1 mg 1 mg oral Daily Munroe, Saim, DO 1 mg at 02/22/25 0814 guaiFENesin (ROBITUSSIN) 20 mg/mL oral liquid 200 mg 200 mg oral QID PRN Deana Crandall PA naloxone (NARCAN) 0.4 mg/mL injection 0.4 mg 0.4 mg intravenous Q10 Min PRN Deana Crandall PA ondansetron (ZOFRAN) injection 4 mg 4 mg intravenous Q4H PRN Deana Crandall PA 4 mg at 02/19/25 0759 oxyCODONE-acetaminophen (PERCOCET) 10-325 mg per tablet 3 tablet 3 tablet oral Q8H PRN Forrest Mason MD 3 tablet at 02/22/25 0818 ramelteon (ROZEREM) tablet 8 mg 8 mg oral Nightly PRN Deana Crandall PA senna-docusate (PERICOLACE) 8.6-50 mg per tablet 1 tablet 1 tablet oral Nightly Deana Crandall PA sodium chloride 0.9% flush 0.5-20 mL 0.5-20 mL intra-catheter Q8H MICHEAL (ALT) Deana Crandall PA 10mL at 02/21/25 2247 sodium chloride 0.9% flush 0.5-20 mL 0.5-20 mL intra-catheter PRN Deana Crandall PA 10 mL at 02/19/25 0621 Assessment/Plan Active Problems: Shortness of breath Diarrhea Abnormal chest x-ray Chest pain S/P splenectomy Sickle-cell crisis Cough PTSD (post-traumatic stress disorder) Plan: #Sickle Cell Crisis #Chronic Pain #Hx of Avascular Necrosis - baseline Hgb 7-9, Hgb on admission 7.7, current Hgb 8.5 - c/w folic acid supplement - oncology following during hospital stay, patient to follow-up w/ Dr. Gonzalez on discharge - no concern for active or acute blood loss - monitor H/H - transfuse for Hgb <7 - discussed pain regiment and educated patient on use/titration and current plans to keep IV narcotic discontinued. Reviewed MAR requirements. Patient wishing to dictate his care and requested IV Dilaudid w/ exact dosing of 1mg Q4H or 0.5mg Q3H. Discussed plans for use of PO therapy which we willplan to discharge him on. Discussed over saturation of pain receptors, opioid tolerance build up, ineffectiveness of oral regiments if he continues to utilize/request narcotics this way in future - anticipate discharge in 24 hours Code Status: Full Code DVT PPx: NA Stress Ulcer PPx: NA Catheter: NA Diet: Regular diet Disposition: pending pain control on oral regiments, anticipate discharge in 24 hours Medical Decision Making Complexity: Moderate Brie Munroe DO * Ezequiel Carrizales MD - 02/21/2025 9:05 AM CDT General Medicine Daily Progress SUBJECTIVE Chief complaint of sickle cell crisis. Interval History: 02/16: in pain OBJECTIVE Vitals: 24hr Min/Max: Temp Min: 36.6 ??C (97.9 ??F) Max: 36.8 ??C (98.2 ??F) Pulse Min: 68 Max: 88 BP Min: 97/56 Max: 127/80 Resp Min: 16 Max: 16 SpO2 Min: 93 % Max: 95 % Most Recent : Vitals: 02/21/25 0757 BP: 110/66 Pulse: 73 Resp: 16 Temp: 36.6 ??C (97.9 ??F) SpO2: 95% I/O last 2 completed shifts: In: 1156.7 [I.V.:1156.7] Out: 1250 [Urine:1250] No intake/output data recorded. Physical Exam: Eyes: EOMI, KATLYN, sclare non icteric Neck: supple, no nuchal ridigity, no gross carotid bruits appreciated Pharynx: No gross oral lesion, tongue midline, mucosa moist Lungs CTA Heart: [id number] Abd: +BS, Non Tender, Non distended, No gross hepatomegaly Lower Ext: No gross edema Neuro: No new gross deficits appreciated Musculoskeletal: no gross joint erythema, edema, tenderness Skin: No lesions Lab/Current Medication Review: Recent Results (from the past 24 hours) Comprehensive metabolic panel Collection Time: 02/20/25 6:47 PM Result Value Ref Range Sodium 139 135 - 145 mmol/L Potassium, pl 3.5 3.3 - 4.9 mmol/L Chloride 103 97 - 110 mmol/L CO2 25 22 - 32 mmol/L Anion gap 11 2 - 15 mmol/L BUN 2 (L) 6 - 25 mg/dL Creatinine 0.44 (L) 0.80 - 1.30 mg/dL Glucose 99 70 - 199 mg/dL Calcium 9.0 8.5 - 10.3 mg/dL Bilirubin, total 4.5 (H) 0.1 - 1.2 mg/dL Protein, pl 7.4 6.5 - 8.5 g/dL Albumin 4.2 3.5 - 5.0 g/dL Alk phos 286 (H) 40 - 130 Units/L ALT 32 7 - 55 Units/L AST 49 10 - 50 Units/L Lactate dehydrogenase (LD) Collection Time: 02/20/25 6:47 PM Result Value Ref Range Lactate dehydrogenase (LDH) 401 (H) 100 - 250 Units/L eGFR Collection Time: 02/20/25 6:47 PM Result Value Ref Range eGFR >90 >=60 mL/min/1.73 m2 Current Facility-Administered Medications Medication Dose Route Frequency Provider Last Rate Last Admin albuterol HFA (PROVENTIL HFA,VENTOLIN HFA,PROAIR HFA) 90 mcg/actuation inhaler 2 puff 2 puff inhalation PRN Deana Crandall PA albuterol HFA (PROVENTIL HFA,VENTOLIN HFA,PROAIR HFA) 90 mcg/actuation inhaler 2 puff 2 puff inhalation QID PRN (RT) Deana Crandall PA Carrier Fluids for Secondary Infusion - 0.9% Sodium Chloride 0-999 mL intravenous PRN Deana Crandall PA 25 mL/hr at 02/20/25 0423 Rate Verify at 02/20/25 0423 dextrose 5% and sodium chloride 0.45% infusion (premix) 100 mL/hr intravenous Continuous Ezequiel Carrizales MD Stopped at 02/20/25 1923 guaiFENesin (ROBITUSSIN) 20 mg/mL oral liquid 200 mg 200 mg oral QID PRN Deana Crandall PA HYDROmorphone (DILAUDID) injection 2 mg 2 mg intravenous Q3H PRN Ezequiel Carrizales MD 2 mg at 02/21/25 0654 naloxone (NARCAN) 0.4 mg/mL injection 0.4 mg 0.4 mg intravenous Q10 Min PRN Deana Crandall PA ondansetron (ZOFRAN) injection 4 mg 4 mg intravenous Q4H PRN Deana Crandall PA 4 mg at 02/19/25 0759 oxyCODONE-acetaminophen (PERCOCET) 10-325 mg per tablet 3 tablet 3 tablet oral Q8H PRN Ezequiel Carrizales MD 3 tablet at 02/20/25 0823 ramelteon (ROZEREM) tablet 8 mg 8 mg oral Nightly PRN Deana Crandall PA senna-docusate (PERICOLACE) 8.6-50 mg per tablet 1 tablet 1 tablet oral Nightly Deana Crandall PA sodium chloride 0.9% flush 0.5-20 mL 0.5-20 mL intra-catheter Q8H MICHEAL (ALT) Deana Crandall PA 10mL at 02/20/25 1405 sodium chloride 0.9% flush 0.5-20 mL 0.5-20 mL intra-catheter PRN Deana Crandall PA 10 mL at 02/19/25 0621 A/P: Sickle cell pain: on iv fluids, pain control CTPE is negative 2. Diarrheal illness: for stool studies, 3. PTSD: on home meds Had a very good conversation with the patient. He is os going to work on his pain regimena nd cooperate, He himself asked for his dilaudid dose to be reduced to 1.5 mg and cross taper to percocet 02/17: Doing well, pain relatively controlled by this regimen HB is stable at 7.8, added hypotonic iv fluids, retic count is good, LDH pending 02/18: More pain today increased dilaudid to 2 mg IV, on oxycodone, labs are pending. On iv fluids, continue 02/19: Visited him twice but he is in deep sleep. No labs yet, the same pattern per the RN 02/20: Reports the same pain levels,no labs yet. Contineu iv fludis and iv pain meds 02/21: Feeling better, no labs yet, stable ?LDH and HB . Agreed to reduce dilaudid iv to 1.5 mg and stop it tomorrow and likely DC on Active Problems: Shortness of breath Diarrhea Abnormal chest x-ray Chest pain S/P splenectomy Sickle-cell crisis Cough PTSD (post-traumatic stress disorder) Ezequiel Carrizales MD 02/21/2025 9:05 AM MDM complexity level: Moderate * Luciana Mahmood NP - 02/21/2025 8:14 AM CDT Oncology Medicine Daily Progress SUBJECTIVE: Chief complaint of uncontrolled pain. Interval History: Patient is examined resting in bed. When asked about his pain he statesI don't know He does not make eye contact today. He answers questions with one word answers. Review of Systems All other systems reviewed and are negative. OBJECTIVE: Vitals: 24hr Min/Max: Temp Min: 36.6 ??C (97.9 ??F) Max: 36.8 ??C (98.2 ??F) Pulse Min: 68 Max: 88 BP Min: 97/56 Max: 127/80 Resp Min: 16 Max: 18 SpO2 Min: 93 % Max: 95 % .Temp (24hrs), Av.7 ??C (98.1 ??F), Min:36.6 ??C (97.9 ??F), Max:36.8 ??C (98.2 ??F) Most Recent : Vitals: 02/20/25 2129 02/21/25 0029 02/21/25 0330 02/21/25 0757 BP: 121/70 127/80 115/74 110/66 BP Location: Right arm Patient Position: Lying Pulse: 80 88 75 73 Resp: 16 Temp: 36.8 ??C (98.2 ??F) 36.6 ??C (97.9 ??F) TempSrc: Oral SpO2: 95% 95% 94% 95% Weight: Height: ECO I/O last 2 completed shifts: In: 1156.7 [I.V.:1156.7] Out: 1250 [Urine:1250] No intake/output data recorded. Current Facility-Administered Medications Medication Dose Route Frequency Provider Last Rate Last Admin albuterol HFA (PROVENTIL HFA,VENTOLIN HFA,PROAIR HFA) 90 mcg/actuation inhaler 2 puff 2 puff inhalation PRN Deana Crandall PA albuterol HFA (PROVENTIL HFA,VENTOLIN HFA,PROAIR HFA) 90 mcg/actuation inhaler 2 puff 2 puff inhalation QID PRN (RT) Deana Crandall PA Carrier Fluids for Secondary Infusion - 0.9% Sodium Chloride 0-999 mL intravenous PRN Deana Crandall PA 25 mL/hr at 02/20/25 0423 Rate Verify at 02/20/25 0423 dextrose 5% and sodium chloride 0.45% infusion (premix) 100 mL/hr intravenous Continuous Ezequiel Carrizales MD Stopped at 02/20/25 1923 guaiFENesin (ROBITUSSIN) 20 mg/mL oral liquid 200 mg 200 mg oral QID PRN Deana Crandall PA HYDROmorphone (DILAUDID) injection 2 mg 2 mg intravenous Q3H PRN Ezequiel Carrizales MD 2 mg at 02/21/25 0654 naloxone (NARCAN) 0.4 mg/mL injection 0.4 mg 0.4 mg intravenous Q10 Min PRN Deana Crandall PA ondansetron (ZOFRAN) injection 4 mg 4 mg intravenous Q4H PRN Deana Crandall PA 4 mg at 02/19/25 0759 oxyCODONE-acetaminophen (PERCOCET) 10-325 mg per tablet 3 tablet 3 tablet oral Q8H PRN Ezequiel Carrizales MD 3 tablet at 02/20/25 0823 ramelteon (ROZEREM) tablet 8 mg 8 mg oral Nightly PRN Deana Crandall PA senna-docusate (PERICOLACE) 8.6-50 mg per tablet 1 tablet 1 tablet oral Nightly Deana Crandall PA sodium chloride 0.9% flush 0.5-20 mL 0.5-20 mL intra-catheter Q8H MICHEAL (ALT) Deana Crandall PA 10mL at 02/20/25 1405 sodium chloride 0.9% flush 0.5-20 mL 0.5-20 mL intra-catheter PRN Deana Crandall PA 10 mL at 02/19/25 0621 dextrose 5% and sodium chloride 0.45%, 100 mL/hr, Last Rate: Stopped (02/20/251922) senna-docusate, 1 tablet, oral, Nightly sodium chloride 0.9%, 0.5-20 mL, intra-catheter, Q8H MICHEAL (ALT) albuterol HFA albuterol HFA sodium chloride 0.9% guaiFENesin HYDROmorphone naloxone ondansetron oxyCODONE-acetaminophen ramelteon sodium chloride 0.9% Physical Exam: Physical Exam Vitals and nursing note reviewed. Constitutional: Appearance: Normal appearance. HENT: Head: Normocephalic and atraumatic. Cardiovascular: Rate [...] Cognition and Memory: Cognition normal. Lab/Radiology/Diagnostic Review: Recent Results (from the past 24 hours) Comprehensive metabolic panel Collection Time: 02/20/25 6:47 PM Result Value Ref Range Sodium 139 135 - 145 mmol/L Potassium, pl 3.5 3.3 - 4.9 mmol/L Chloride 103 97 - 110 mmol/L CO2 25 22 - 32 mmol/L Anion gap 11 2 - 15 mmol/L BUN 2 (L) 6 - 25 mg/dL Creatinine 0.44 (L) 0.80 - 1.30 mg/dL Glucose 99 70 - 199 mg/dL Calcium 9.0 8.5 - 10.3 mg/dL Bilirubin, total 4.5 (H) 0.1 - 1.2 mg/dL Protein, pl 7.4 6.5 - 8.5 g/dL Albumin 4.2 3.5 - 5.0 g/dL Alk phos 286 (H) 40 - 130 Units/L ALT 32 7 - 55 Units/L AST 49 10 - 50 Units/L Lactate dehydrogenase (LD) Collection Time: 02/20/25 6:47 PM Result Value Ref Range Lactate dehydrogenase (LDH) 401 (H) 100 - 250 Units/L eGFR Collection Time: 02/20/25 6:47 PM Result Value Ref Range eGFR >90 >=60 mL/min/1.[address] Chest PE (CTA) Abdomen Pelvis W Contrast Result Date: 02/15/2025 Narrative: EXAM DESCRIPTION: CT CHEST PE (CTA) ABDOMEN PELVIS W CONTRAST REASON FOR STUDY: chest pain/sickle cell/diarrhea/nausea chest pain/sickle cell/diarrhea/nausea. Patient refused lowering jeans for scans. TECHNIQUE: CT angiogram of the chest with routine abdomen and pelvis performed with intr avenous and without oral contrast using helical scanning technique with dynamic intravenous contrast injection. Reconstructed coronal and sagittal MPR images reviewed. All images stored on PACS. 3D MIP images of the chest rendered on scanning unit and reviewed at time of interpretation. Automated exposure control was used as a dose optimization technique for this examination. CONTRAST TYPE/DOSE: 100mL of IOVERSOL 350 MG IODINE/ML INTRAVENOUS SYRINGE injected via intravenous COMPARISON: CT abdomen pelvis 01/08/2025 FINDINGS: CHEST CHEST VASCULATURE: No acute pulmonary thromboembolism. LUNGS: Bilateral ground-glass opacities with smooth interlobular septal thickening, greatest in the lower lob es may represent edema. No suspicious pulmonary nodule. No focal consolidation. PLEURA: No effusion. No pneumothorax. MEDIASTINUM/VICTORIANO: No identified masses or abnormal nodes. HEART: Heart size is normal with no pericardial effusion. AXILLA: No adenopathy. CHEST WALL: No masses. No subcutaneous air. HARDWARE/LINES/TUBES: None. MUSCULOSKELETAL CHEST: No significant abnormality. ABDOMEN/PELVIS LIVER: Normal size. No identified cystic or solid masses. GALLBLADDER: Surgically absent BILE DUCTS: Nointrahepatic or extrahepatic ductal dilatation. SPLEEN: Auto splenectomy PANCREAS: No identified cystic or solid masses. No significant calcifications. No adjacent inflammation or peripancreatic fluid collections. Pancreatic duct not dilated. ADRENALS: Normal. KIDNEYS/URINARY TRACT: No identified significant cystic or solid masses. No visualized stones. No hydronephrosis or hydroureter. Symmetricenhancement. Urinary bladder is unremarkable. GI: No dilated bowel loops. No obvious wall thickening. Normal appendix. No significant diverticular disease. PERITONEUM: No ascites or free air. RETROPERITONEUM: No mass or adenopathy. REPRODUCTIVE: No significant abnormality. VASCULATURE ABDOMEN: No abdominal aortic aneurysm. MUSCULOSKELETAL ABDOMEN PELVIS: No acute finding. OTHER: No significant abn ormality. IMPRESSION: No evidence of pulmonary embolism. No acute abnormality of the abdomen or pelvis. THIS IS AN ELECTRONICALLY VERIFIED FINAL REPORT 02/15/2025 8:24 PM - Electronically signed by Anne Merchant M.D. FT: FT Report ID: [id number] Reading Location: [place] [address] ASSESSMENT/PLAN: Active Problems: Shortness of breath Diarrhea Abnormal chest x-ray Chest pain S/P splenectomy Sickle-cell crisis Cough PTSD (post-traumatic stress disorder) Mr. Villalpando is a 29 year old male admitted with sickle cell pain crisis. Sickle cell crisis Uncontrolled pain - Agree with using home dose of pain medication; percocet 10/325 x3 every 8 hours PRN. - Continue folic acid 1 mg daily. - Transfuse to maintain hemoglobin >7.0. - Daily CBC while admitted - Daily CMP while admitted - Daily reticulocyte count while admitted. 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 - H&H remains stable. Wean IV narcotics to work towards discharge. 02/21/2025 -Labs remain pending -Dilaudid will be reduced in attempts to get patient discharged in next 24-48 hours Luciana Mahmood NP Division of Medical Oncology [facility] [employer] I have discussed the assessment and plan of care of this patient with my collaborating physician. Cosigned by Humberto Serna DO at 02/21/2025 4:25 PM CDT * Ezequiel Carrizales MD - 02/20/2025 11:48 AM CDT General Medicine Daily Progress SUBJECTIVE Chief complaint of sickle cell crisis. Interval History: 02/16: in pain OBJECTIVE Vitals: 24hr Min/Max: Temp Min: 36.7 ??C (98.1 ??F) Max: 36.9 ??C (98.4 ??F) Pulse Min: 78 Max: 82 BP Min: 103/64 Max: 118/80 Resp Min: 16 Max: 20 SpO2 Min: 93 % Max: 97 % Most Recent : Vitals: 02/20/25 0825 BP: Pulse: Resp: 18 Temp: SpO2: I/O last 2 completed shifts: In: 2942.3 [P.O.:1020; I.V.:1922.3] Out: 2900 [Urine:2900] No intake/output data recorded. Physical Exam: Eyes: EOMI, KATLYN, sclare non icteric Neck: supple, no nuchal ridigity, no gross carotid bruits appreciated Pharynx: No gross oral lesion, tongue midline, mucosa moist Lungs CTA Heart: [id number] Abd: +BS, Non Tender, Non distended, No gross hepatomegaly Lower Ext: No gross edema Neuro: No new gross deficits appreciated Musculoskeletal: no gross joint erythema, edema, tenderness Skin: No lesions Lab/Current Medication Review: No results found for this or any previous visit (from the past 24 hours). Current Facility-Administered Medications Medication Dose Route Frequency Provider Last Rate Last Admin albuterol HFA (PROVENTIL HFA,VENTOLIN HFA,PROAIR HFA) 90 mcg/actuation inhaler 2 puff 2 puff inhalation PRN Deana Crandall PA albuterol HFA (PROVENTIL HFA,VENTOLIN HFA,PROAIR HFA) 90 mcg/actuation inhaler 2 puff 2 puff inhalation QID PRN (RT) Deana Crandall PA Carrier Fluids for Secondary Infusion - 0.9% Sodium Chloride 0-999 mL intravenous PRN Deana Crandall PA 25 mL/hr at 02/20/25 0423 Rate Verify at 02/20/25 0423 dextrose 5% and sodium chloride 0.45% infusion (premix) 100 mL/hr intravenous Continuous Ezequiel Carrizales MD 100 mL/hr at 02/20/25 0427 100 mL/hr at 02/20/25 0427 guaiFENesin (ROBITUSSIN) 20 mg/mL oral liquid 200 mg 200 mg oral QID PRN Deana Crandall PA HYDROmorphone (DILAUDID) injection 2 mg 2 mg intravenous Q3H PRN Ezequiel Carrizales MD 2 mg at 02/20/25 1043 naloxone (NARCAN) 0.4 mg/mL injection 0.4 mg 0.4 mg intravenous Q10 Min PRN Deana Crandall PA ondansetron (ZOFRAN) injection 4 mg 4 mg intravenous Q4H PRN Deana Crandall PA 4 mg at 02/19/25 0759 oxyCODONE-acetaminophen (PERCOCET) 10-325 mg per tablet 3 tablet 3 tablet oral Q8H PRN Ezequiel Carrizales MD 3 tablet at 02/20/25 0823 ramelteon (ROZEREM) tablet 8 mg 8 mg oral Nightly PRN Deana Crandall PA senna-docusate (PERICOLACE) 8.6-50 mg per tablet 1 tablet 1 tablet oral Nightly Deana Crandall PA sodium chloride 0.9% flush 0.5-20 mL 0.5-20 mL intra-catheter Q8H MICHEAL (ALT) Deana Crandall PA 10mL at 02/19/25 1425 sodium chloride 0.9% flush 0.5-20 mL 0.5-20 mL intra-catheter PRN Deana Crandall PA 10 mL at 02/19/25 0621 A/P: Sickle cell pain: on iv fluids, pain control CTPE is negative 2. Diarrheal illness: for stool studies, 3. PTSD: on home meds Had a very good conversation with the patient. He is os going to work on his pain regimena nd cooperate, He himself asked for his dilaudid dose to be reduced to 1.5 mg and cross taper to percocet 02/17: Doing well, pain relatively controlled by this regimen HB is stable at 7.8, added hypotonic iv fluids, retic count is good, LDH pending 02/18: More pain today increased dilaudid to 2 mg IV, on oxycodone, labs are pending. On iv fluids, continue 02/19: Visited him twice but he is in deep sleep. No labs yet, the same pattern per the RN 02/20: Reports the same pain levels,no labs yet. Contineu iv fludis and iv pain meds Active Problems: Shortness of breath Diarrhea Abnormal chest x-ray Chest pain S/P splenectomy Sickle-cell crisis Cough PTSD (post-traumatic stress disorder) Ezequiel Carrizales MD 02/20/2025 11:48 AM MDM complexity level: Moderate * Ezequiel Carrizales MD - 02/19/2025 12:22 PM CDT General Medicine Daily Progress SUBJECTIVE Chief complaint of sickle cell crisis. Interval History: 02/16: in pain OBJECTIVE Vitals: 24hr Min/Max: Temp Min: 36.6 ??C (97.9 ??F) Max: 36.8 ??C (98.2 ??F) Pulse Min: 79 Max: 84 BP Min: 91/57 Max: 118/74 Resp Min: 16 Max: 18 SpO2 Min: 94 % Max: 95 % Most Recent : Vitals: 02/19/25 0849 BP: 91/57 Pulse: 83 Resp: 16 Temp: 36.7 ??C (98.1 ??F) SpO2: 94% I/O last 2 completed shifts: In: 7200.3 [P.O.:2142; I.V.:4175; IV Piggyback:883.3] Out: 5750 [Urine:5750] No intake/output data recorded. Physical Exam: Eyes: EOMI, KATLYN, sclare non icteric Neck: supple, no nuchal ridigity, no gross carotid bruits appreciated Pharynx: No gross oral lesion, tongue midline, mucosa moist Lungs CTA Heart: [id number] Abd: +BS, Non Tender, Non distended, No gross hepatomegaly Lower Ext: No gross edema Neuro: No new gross deficits appreciated Musculoskeletal: no gross joint erythema, edema, tenderness Skin: No lesions Lab/Current Medication Review: No results found for this or any previous visit (from the past 24 hours). Current Facility-Administered Medications Medication Dose Route Frequency Provider Last Rate Last Admin albuterol HFA (PROVENTIL HFA,VENTOLIN HFA,PROAIR HFA) 90 mcg/actuation inhaler 2 puff 2 puff inhalation PRN Deana Crandall PA albuterol HFA (PROVENTIL HFA,VENTOLIN HFA,PROAIR HFA) 90 mcg/actuation inhaler 2 puff 2 puff inhalation QID PRN (RT) Deana Crandall PA Carrier Fluids for Secondary Infusion - 0.9% Sodium Chloride 0-999 mL intravenous PRN Deana Crandall PA 25 mL/hr at 02/18/25 1849 Rate Verify at 02/18/25 1849 dextrose 5% and sodium chloride 0.45% infusion (premix) 100 mL/hr intravenous Continuous Ezequiel Carrizales MD 100 mL/hr at 02/19/25 0534 100 mL/hr at 02/19/25 0534 guaiFENesin (ROBITUSSIN) 20 mg/mL oral liquid 200 mg 200 mg oral QID PRN Deana Crandall PA HYDROmorphone (DILAUDID) injection 2 mg 2 mg intravenous Q3H PRN Ezequiel Carrizales MD 2 mg at 02/19/25 0935 naloxone (NARCAN) 0.4 mg/mL injection 0.4 mg 0.4 mg intravenous Q10 Min PRN Deana Crandall PA ondansetron (ZOFRAN) injection 4 mg 4 mg intravenous Q4H PRN Deana Crandall PA 4 mg at 02/19/25 0759 oxyCODONE-acetaminophen (PERCOCET) 10-325 mg per tablet 3 tablet 3 tablet oral Q8H PRN Ezequiel Carrizales MD 3 tablet at 02/18/25 0100 ramelteon (ROZEREM) tablet 8 mg 8 mg oral Nightly PRN Deana Crandall PA senna-docusate (PERICOLACE) 8.6-50 mg per tablet 1 tablet 1 tablet oral Nightly Deana Crandall PA sodium chloride 0.9% flush 0.5-20 mL 0.5-20 mL intra-catheter Q8H MICHEAL (ALT) Deana Crandall PA 10mL at 02/19/25 0800 sodium chloride 0.9% flush 0.5-20 mL 0.5-20 mL intra-catheter PRN Deana Crandall PA 10 mL at 02/19/25 0621 A/P: Sickle cell pain: on iv fluids, pain control CTPE is negative 2. Diarrheal illness: for stool studies, 3. PTSD: on home meds Had a very good conversation with the patient. He is os going to work on his pain regimena nd cooperate, He himself asked for his dilaudid dose to be reduced to 1.5 mg and cross taper to percocet 02/17: Doing well, pain relatively controlled by this regimen HB is stable at 7.8, added hypotonic iv fluids, retic count is good, LDH pending 02/18: More pain today increased dilaudid to 2 mg IV, on oxycodone, labs are pending. On iv fluids, continue 02/19: Visited him twice but he is in deep sleep. No labs yet, the same pattern per the RN Active Problems: Shortness of breath Diarrhea Abnormal chest x-ray Chest pain S/P splenectomy Sickle-cell crisis Cough PTSD (post-traumatic stress disorder) Ezequiel Carrizales MD 02/19/2025 12:22 PM MDM complexity level: Moderate * Ezequiel Carrizales MD - 02/18/2025 12:10 PM CDT General Medicine Daily Progress SUBJECTIVE Chief complaint of sickle cell crisis. Interval History: 02/16: in pain OBJECTIVE Vitals: 24hr Min/Max: Temp Min: 36.6 ??C (97.9 ??F) Max: 36.9 ??C (98.4 ??F) Pulse Min: 71 Max: 82 BP Min: 105/69 Max: 146/96 Resp Min: 16 Max: 18 SpO2 Min: 92 % Max: 95 % Most Recent : Vitals: 02/18/25 0810 BP: 115/67 Pulse: 71 Resp: 18 Temp: 36.6 ??C (97.9 ??F) SpO2: 94% I/O last 2 completed shifts: In: 311 [P.O.:291; I.V.:20] Out: 5700 [Urine:5700] I/O this shift: In: 1940.7 [I.V.:1940.7] Out: 600 [Urine:600] Physical Exam: Eyes: EOMI, KATLYN, sclare non icteric Neck: supple, no nuchal ridigity, no gross carotid bruits appreciated Pharynx: No gross oral lesion, tongue midline, mucosa moist Lungs CTA Heart: [id number] Abd: +BS, Non Tender, Non distended, No gross hepatomegaly Lower Ext: No gross edema Neuro: No new gross deficits appreciated Musculoskeletal: no gross joint erythema, edema, tenderness Skin: No lesions Lab/Current Medication Review: Recent Results (from the past 24 hours) Comprehensive metabolic panel Collection Time: 02/17/25 1:04 PM Result Value Ref Range Sodium 139 135 - 145 mmol/L Potassium, pl 3.8 3.3 - 4.9 mmol/L Chloride 104 97 - 110 mmol/L CO2 24 22 - 32 mmol/L Anion gap 11 2 - 15 mmol/L BUN <2 (L) 6 - 25 mg/dL Creatinine 0.50 (L) 0.80 - 1.30 mg/dL Glucose 125 70 - 199 mg/dL Calcium 8.2 (L) 8.5 - 10.3 mg/dL Bilirubin, total 4.7 (H) 0.1 - 1.2 mg/dL Protein, pl 7.0 6.5 - 8.5 g/dL Albumin 4.1 3.5 - 5.0 g/dL Alk phos 261 (H) 40 - 130 Units/L ALT 31 7 - 55 Units/L AST 52 (H) 10 - 50 Units/L CBC with auto differential Collection Time: 02/17/25 1:04 PM Result Value Ref Range WBC 9.30 3.80 - 9.90 K/cumm Hgb 7.8 (L) 13.0 - 17.5 g/dL Hct 22.7 (L) 38.9 - 50.3 % Plt 294 150 - 400 K/cumm MPV 10.1 9.1 - 12.3 fL RBC 2.50 (L) 4.30 - 5.80 M/cumm MCV 90.8 81.3 - 96.4 fL MCH 31.2 27.1 - 33.3 pg MCHC 34.4 32.3 - 35.7 g/dL RDW CV 23.0 (H) 11.1 - 14.9 % RDW SD 73.4 (H) 35.7 - 48.1 fL NRBC abs 0.19 (H) 0.00 - 0.01 K/cumm Morphologic Screen Results confirmed by manual morphology review. Reticulocyte Count Collection Time: 02/17/25 1:04 PM Result Value Ref Range Retics, absolute 473 (H) 20 - 87 K/cumm Retics 18.9 (H) 0.4 - 2.9 % Reticulocyte Hgb 31.5 30.5 - 38.0 pg Thyroid Function Grant Collection Time: 02/17/25 1:04 PM Result Value Ref Range TSH 3.82 0.30 - 4.20 mcIUnit/mL Differential, auto Collection Time: 02/17/25 1:04 PM Result Value Ref Range Neutrophil abs 3.70 1.50 - 6.50 K/cumm Imm gran abs 0.08 0.00 - 0.10 K/cumm Lymphocyte abs 3.71 (H) 0.80 - 3.30 K/cumm Monocyte abs 1.31 (H) 0.20 - 0.80 K/cumm Eosinophil abs 0.43 0.00 - 0.50 K/cumm Basophil abs 0.07 0.00 - 0.10 K/cumm Neutrophil pct 39.7 % Imm gran pct 0.9 % Lymphocyte pct 39.9 % Monocyte pct 14.1 % Eosinophil pct 4.6 % Basophil pct 0.8 % eGFR Collection Time: 02/17/25 1:04 PM Result Value Ref Range eGFR >90 >=60 mL/min/1.73 m2 Current Facility-Administered Medications Medication Dose Route Frequency Provider Last Rate Last Admin albuterol HFA (PROVENTIL HFA,VENTOLIN HFA,PROAIR HFA) 90 mcg/actuation inhaler 2 puff 2 puff inhalation PRN Deana Crandall PA albuterol HFA (PROVENTIL HFA,VENTOLIN HFA,PROAIR HFA) 90 mcg/actuation inhaler 2 puff 2 puff inhalation QID PRN (RT) Deana Crandall PA Carrier Fluids for Secondary Infusion - 0.9% Sodium Chloride 0-999 mL intravenous PRN Deana Crandall PA 25 mL/hr at 02/17/25 0729 Rate Verify at 02/17/25 0729 dextrose 5% and sodium chloride 0.45% infusion (premix) 100 mL/hr intravenous Continuous Ezequiel Carrizales MD 100 mL/hr at 02/18/25 0714 100 mL/hr at 02/18/25 0714 guaiFENesin (ROBITUSSIN) 20 mg/mL oral liquid 200 mg 200 mg oral QID PRN Deana Crandall PA HYDROmorphone (DILAUDID) injection 2 mg 2 mg intravenous Q3H PRN Ezequiel Carrizales MD 2 mg at 02/18/25 0854 naloxone (NARCAN) 0.4 mg/mL injection 0.4 mg 0.4 mg intravenous Q10 Min PRN Deana Crandall PA ondansetron (ZOFRAN) injection 4 mg 4 mg intravenous Q4H PRN Deana Crandall PA oxyCODONE-acetaminophen (PERCOCET) 10-325 mg per tablet 3 tablet 3 tablet oral Q8H PRN Ezequiel Carrizales MD 3 tablet at 02/18/25 0100 ramelteon (ROZEREM) tablet 8 mg 8 mg oral Nightly PRN Deana Crandall PA senna-docusate (PERICOLACE) 8.6-50 mg per tablet 1 tablet 1 tablet oral Nightly Deana Crandall PA sodium chloride 0.9% flush 0.5-20 mL 0.5-20 mL intra-catheter Q8H MICHEAL (ALT) Deana Crandall PA 10mL at 02/17/25 1642 sodium chloride 0.9% flush 0.5-20 mL 0.5-20 mL intra-catheter PRN Deana Crandall PA A/P: Sickle cell pain: on iv fluids, pain control CTPE is negative 2. Diarrheal illness: for stool studies, 3. PTSD: on home meds Had a very good conversation with the patient. He is os going to work on his pain regimena nd cooperate, He himself asked for his dilaudid dose to be reduced to 1.5 mg and cross taper to percocet 02/17: Doing well, pain relatively controlled by this regimen HB is stable at 7.8, added hypotonic iv fluids, retic count is good, LDH pending 02/18: More pain today increased dilaudid to 2 mg IV, on oxycodone, labs are pending. On iv fluids, continue Active Problems: Shortness of breath Diarrhea Abnormal chest x-ray Chest pain S/P splenectomy Sickle-cell crisis Cough PTSD (post-traumatic stress disorder) Ezequiel Carrizales MD 02/18/2025 12:10 PM MDM complexity level: Moderate * Kassy George CERTIFIED TECHNICIAN - 02/18/2025 11:47 AM CDT Oncology Medicine Daily Progress SUBJECTIVE: Chief complaint of uncontrolled pain. Interval History: Mr. Villalpando seen and examined resting in bed. He continues to complain of uncontrolled pain. Denies fever, chills, chest pain, or dyspnea. Review of Systems All other systems reviewed and are negative. OBJECTIVE: Vitals: 24hr Min/Max: Temp Min: 36.6 ??C (97.9 ??F) Max: 36.9 ??C (98.4 ??F) Pulse Min: 71 Max: 86 BP Min: 105/69 Max: 146/96 Resp Min: 16 Max: 18 SpO2 Min: 92 % Max: 95 % .Temp (24hrs), Av.8 ??C (98.2 ??F), Min:36.6 ??C (97.9 ??F), Max:36.9 ??C (98.4 ??F) Most Recent : Vitals: 02/17/25 1533 02/17/25 1949 02/18/25 0404 02/18/25 0810 BP: 105/69 110/62 146/96 115/67 BP Location: Right arm Right arm Right arm Right arm Patient Position: Lying Lying Lying Lying Pulse: 80 81 82 71 Resp: 18 16 16 18 Temp: 36.8 ??C (98.2 ??F) 36.7 ??C (98.1 ??F) 36.9 ??C (98.4 ??F) 36.6 ??C (97.9 ??F) TempSrc: Oral Oral Oral Oral SpO2: 95% 95% 92% 94% Weight: Height: ECO 0 Fully active; [...] Adapted from: Nikkie MM, Kenzie RH, Lynne DC, et al. Toxicity and response criteria of the Eastern Cooperative Oncology Group. Am J Clin Oncol 1982; 5:649. I/O last 2 completed shifts: In: 311 [P.O.:291; I.V.:20] Out: 5700 [Urine:5700] I/O this shift: In: 1940.7 [I.V.:1940.7] Out: 600 [Urine:600] Current Facility-Administered Medications Medication Dose Route Frequency Provider Last Rate Last Admin albuterol HFA (PROVENTIL HFA,VENTOLIN HFA,PROAIR HFA) 90 mcg/actuation inhaler 2 puff 2 puff inhalation PRN Deana Crandall PA albuterol HFA (PROVENTIL HFA,VENTOLIN HFA,PROAIR HFA) 90 mcg/actuation inhaler 2 puff 2 puff inhalation QID PRN (RT) Deana Crandall PA Carrier Fluids for Secondary Infusion - 0.9% Sodium Chloride 0-999 mL intravenous PRN Deana Crandall PA 25 mL/hr at 02/17/25 0729 Rate Verify at 02/17/25 0729 dextrose 5% and sodium chloride 0.45% infusion (premix) 100 mL/hr intravenous Continuous Ezequiel Carrizales MD 100 mL/hr at 02/18/25 0714 100 mL/hr at 02/18/25 0714 guaiFENesin (ROBITUSSIN) 20 mg/mL oral liquid 200 mg 200 mg oral QID PRN Deana Crandall PA HYDROmorphone (DILAUDID) injection 2 mg 2 mg intravenous Q3H PRN Ezequiel Carrizales MD 2 mg at 02/18/25 0854 naloxone (NARCAN) 0.4 mg/mL injection 0.4 mg 0.4 mg intravenous Q10 Min PRN Deana Crandall PA ondansetron (ZOFRAN) injection 4 mg 4 mg intravenous Q4H PRN Deana Crandall PA oxyCODONE-acetaminophen (PERCOCET) 10-325 mg per tablet 3 tablet 3 tablet oral Q8H PRN Ezequiel Carrizales MD 3 tablet at 02/18/25 0100 ramelteon (ROZEREM) tablet 8 mg 8 mg oral Nightly PRN Deana Crandall PA senna-docusate (PERICOLACE) 8.6-50 mg per tablet 1 tablet 1 tablet oral Nightly Deana Crandall PA sodium chloride 0.9% flush 0.5-20 mL 0.5-20 mL intra-catheter Q8H MICHEAL (ALT) Deana Crandall PA 10mL at 02/17/25 1642 sodium chloride 0.9% flush 0.5-20 mL 0.5-20 mL intra-catheter PRN Deana Crandall PA dextrose 5% and sodium chloride 0.45%, 100 mL/hr, Last Rate: 100 mL/hr (02/18/25 0714) senna-docusate, 1 tablet, oral, Nightly sodium chloride 0.9%, 0.5-20 mL, intra-catheter, Q8H MICHEAL (ALT) albuterol HFA albuterol HFA sodium chloride 0.9% guaiFENesin HYDROmorphone naloxone ondansetron oxyCODONE-acetaminophen ramelteon sodium chloride 0.9% Physical Exam: Physical Exam Vitals reviewed. Constitutional: General: He is not in acute distress. Appearance: He is obese. HENT: Head: Normocephalic and atraumatic. Nose: Nose normal. Eyes: General: Scleral icterus present. Cardiovascular: Rate [...] Mood normal. Behavior: Behavior normal. Lab/Radiology/Diagnostic Review: Recent Results (from the past 24 hours) Comprehensive metabolic panel Collection Time: 02/17/25 1:04 PM Result Value Ref Range Sodium 139 135 - 145 mmol/L Potassium, pl 3.8 3.3 - 4.9 mmol/L Chloride 104 97 - 110 mmol/L CO2 24 22 - 32 mmol/L Anion gap 11 2 - 15 mmol/L BUN <2 (L) 6 - 25 mg/dL Creatinine 0.50 (L) 0.80 - 1.30 mg/dL Glucose 125 70 - 199 mg/dL Calcium 8.2 (L) 8.5 - 10.3 mg/dL Bilirubin, total 4.7 (H) 0.1 - 1.2 mg/dL Protein, pl 7.0 6.5 - 8.5 g/dL Albumin 4.1 3.5 - 5.0 g/dL Alk phos 261 (H) 40 - 130 Units/L ALT 31 7 - 55 Units/L AST 52 (H) 10 - 50 Units/L CBC with auto differential Collection Time: 02/17/25 1:04 PM Result Value Ref Range WBC 9.30 3.80 - 9.90 K/cumm Hgb 7.8 (L) 13.0 - 17.5 g/dL Hct 22.7 (L) 38.9 - 50.3 % Plt 294 150 - 400 K/cumm MPV 10.1 9.1 - 12.3 fL RBC 2.50 (L) 4.30 - 5.80 M/cumm MCV 90.8 81.3 - 96.4 fL MCH 31.2 27.1 - 33.3 pg MCHC 34.4 32.3 - 35.7 g/dL RDW CV 23.0 (H) 11.1 - 14.9 % RDW SD 73.4 (H) 35.7 - 48.1 fL NRBC abs 0.19 (H) 0.00 - 0.01 K/cumm Morphologic Screen Results confirmed by manual morphology review. Reticulocyte Count Collection Time: 02/17/25 1:04 PM Result Value Ref Range Retics, absolute 473 (H) 20 - 87 K/cumm Retics 18.9 (H) 0.4 - 2.9 % Reticulocyte Hgb 31.5 30.5 - 38.0 pg Thyroid Function Grant Collection Time: 02/17/25 1:04 PM Result Value Ref Range TSH 3.82 0.30 - 4.20 mcIUnit/mL Differential, auto Collection Time: 02/17/25 1:04 PM Result Value Ref Range Neutrophil abs 3.70 1.50 - 6.50 K/cumm Imm gran abs 0.08 0.00 - 0.10 K/cumm Lymphocyte abs 3.71 (H) 0.80 - 3.30 K/cumm Monocyte abs 1.31 (H) 0.20 - 0.80 K/cumm Eosinophil abs 0.43 0.00 - 0.50 K/cumm Basophil abs 0.07 0.00 - 0.10 K/cumm Neutrophil pct 39.7 % Imm gran pct 0.9 % Lymphocyte pct 39.9 % Monocyte pct 14.1 % Eosinophil pct 4.6 % Basophil pct 0.8 % eGFR Collection Time: 02/17/25 1:04 PM Result Value Ref Range eGFR >90 >=60 mL/min/1.[address] Chest PE (CTA) Abdomen Pelvis W Contrast Result Date: 02/15/2025 Narrative: EXAM DESCRIPTION: CT CHEST PE (CTA) ABDOMEN PELVIS W CONTRAST REASON FOR STUDY: chest pain/sickle cell/diarrhea/nausea chest pain/sickle cell/diarrhea/nausea. Patient refused lowering jeans for scans. TECHNIQUE: CT angiogram of the chest with routine abdomen and pelvis performed with intr avenous and without oral contrast using helical scanning technique with dynamic intravenous contrast injection. Reconstructed coronal and sagittal MPR images reviewed. All images stored on PACS. 3D MIP images of the chest rendered on scanning unit and reviewed at time of interpretation. Automated exposure control was used as a dose optimization technique for this examination. CONTRAST TYPE/DOSE: 100mL of IOVERSOL 350 MG IODINE/ML INTRAVENOUS SYRINGE injected via intravenous COMPARISON: CT abdomen pelvis 01/08/2025 FINDINGS: CHEST CHEST VASCULATURE: No acute pulmonary thromboembolism. LUNGS: Bilateral ground-glass opacities with smooth interlobular septal thickening, greatest in the lower lob es may represent edema. No suspicious pulmonary nodule. No focal consolidation. PLEURA: No effusion. No pneumothorax. MEDIASTINUM/VICTORIANO: No identified masses or abnormal nodes. HEART: Heart size is normal with no pericardial effusion. AXILLA: No adenopathy. CHEST WALL: No masses. No subcutaneous air. HARDWARE/LINES/TUBES: None. MUSCULOSKELETAL CHEST: No significant abnormality. ABDOMEN/PELVIS LIVER: Normal size. No identified cystic or solid masses. GALLBLADDER: Surgically absent BILE DUCTS: No intrahepatic or extrahepatic ductal dilatation. SPLEEN: Auto splenectomy PANCREAS: No identified cystic or solid masses. No significant calcifications. No adjacent inflammation or peripancreatic fluidcollections. Pancreatic duct not dilated. ADRENALS: Normal. KIDNEYS/URINARY TRACT: No identified significant cystic or solid masses. No visualized stones. No hydronephrosis or hydroureter. Symmetric enhancement. Urinary bladder is unremarkable. GI: No dilated bowel loops. No obvious wall thickening. Normal appendix. No significant diverticular disease. PERITONEUM: No ascites or free air. RETROPERITONEUM: No mass or adenopathy. REPRODUCTIVE: No significant abnormality. VASCULATURE ABDOMEN: No abdominal aortic aneurysm. MUSCULOSKELETAL ABDOMEN PELVIS: No acute finding. OTHER: No significant abno rmality. IMPRESSION: No evidence of pulmonary embolism. No acute abnormality of the abdomen or pelvis. THIS IS AN ELECTRONICALLY VERIFIED FINAL REPORT 02/15/2025 8:24 PM - Electronically signed by Anne Merchant M.D. FT: FT Report ID: [id number] Reading Location: [id number] XR Chest 1Vw Portable Result Date: 01/30/2025 Narrative: PROCEDURE: XR CHEST 1VW PORTABLE DATE/TIME OF EXAM: 01/30/2025 6:40 AM INDICATION: R07.9: Chest pain, unspecified type COMPARISON: 12/24/2024 ADDITIONAL CLINICAL INFORMATION (if provided): Ordering Provider Reason For Exam: Findings: The heart is borderline enlarged. The aorta is normal in caliber. The lungs are now clear. There is no confluent infiltrate or effusion. There is no pneumothor ax. There is no mass or adenopathy.. . Impression: IMPRESSION: Borderline cardiac silhouette for age. No acute pulmonary infiltrate > Interpreting Provider: Leopoldo Martin MD on 01/30/2025 8:40 AM XR LUMB SPINE 3V Result Date: 01/29/2025 Narrative: [address] [id number] Examination: XR LUMB SPINE 3V Exam time: 01/29/2025 5:12 PM Clinical history: Low back pain onset 3 days ago. History of sickle cell disease Comparison: Chest radiograph 01/18/2025. CT chest, abdomen, and pelvis 10/30/2024. Technique: 3 views of the lumbar spine. Findings: There are 5 nonrib- bearing lumbar-type vertebral bodies. There are chronic appearing superior and inferior endplate changes with an H shaped configuration in keeping with history of sickle cell. There is normal alignment of theanterior and posterior elements. Facet alignment is maintained. Intervertebral disc spaces are relat ively preserved. No definite acute displaced fractures identified in the lumbar spine. There is curvilinear sclerosis within the left femoral head suggestive of osteonecrosis. Somewhat heterogeneous sclerosis of the pelvis and sacrum, similar to CT 10/30/2024. Cholecystectomy clips are noted. Impression: IMPRESSION: 1. No acute osseous abnormality. 2. [...] Oliva DO, 01/29/2025 6:11 PM XR Chest 1 View Result Date: 01/18/2025 Narrative: [address] [id number] Examination: XR CHEST PORTABLE Exam time: 01/18/2025 4:24 PM Clinical history: Chest pain. Sicklecell disease. Comparison: 12/31/2024 AP view Technique: AP upright view Findings: Mild rotation to the left. Cardiac silhouette within normal limits. Stable slight prominence central pulmonary vasculature. No evidence of focal atelectasis or consolidation. No evidence of pleural effusion. Increased density superior aspect right humeral head appears stable and may represent avascular necrosis. Overall, no definitive radiographic evidence of active chest disease. Impression: IMPRESSION: No definitive radiographic evidence of active chest disease. Ordered By: VIVEK HUERTA Interpreted By: Emory Alvarado MD, 01/18/2025 4:40 PM * Cannot find OR log * ASSESSMENT/PLAN: Active Problems: Shortness of breath Diarrhea Abnormal chest x-ray Chest pain S/P splenectomy Sickle-cell crisis Cough PTSD (post-traumatic stress disorder) Mr. Villalpando is a 29 year old male admitted with sickle cell pain crisis. Sickle cell crisis Uncontrolled pain - Agree with using home dose of pain medication; percocet 10/325 x3 every 8 hours PRN. - Continue folic acid 1 mg daily. - Transfuse to maintain hemoglobin >7.0. - Daily CBC while admitted - Daily CMP while admitted - Daily reticulocyte count while admitted. 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 - H&H remains stable. Wean IV narcotics to work towards discharge. Kassy George, TICKET CHOPPER ASSEMBLER, CHIEF PASSENGER SHIP STEWARD/STEWARDESS-C, CCRN Division of Medical Oncology [facility] [employer] I have discussed the assessment and plan of care of this patient with my collaborating physician. Cosigned by Humberto Serna DO at 02/19/2025 10:16 AM CDT * Ezequiel Carrizales MD - 02/17/2025 10:59 AM CDT General Medicine Daily Progress SUBJECTIVE Chief complaint of sickle cell crisis. Interval History: 02/16: in pain OBJECTIVE Vitals: 24hr Min/Max: Temp Min: 36.3 ??C (97.3 ??F) Max: 37.3 ??C (99.1 ??F) Pulse Min: 76 Max: 95 BP Min: 97/65 Max: 133/96 Resp Min: 16 Max: 22 SpO2 Min: 92 % Max: 99 % Most Recent : Vitals: 02/17/25 0808 BP: 133/96 Pulse: 76 Resp: 18 Temp: 36.9 ??C (98.4 ??F) SpO2: 95% I/O last 2 completed shifts: In: 0 [P.O.:1740; I.V.:20] Out: 2024 [Urine:2024] I/O this shift: In: 10 [I.V.:10] Out: 700 [Urine:700] Physical Exam: Eyes: EOMI, KATLYN, sclare non icteric Neck: supple, no nuchal ridigity, no gross carotid bruits appreciated Pharynx: No gross oral lesion, tongue midline, mucosa moist Lungs CTA Heart: [id number] Abd: +BS, Non Tender, Non distended, No gross hepatomegaly Lower Ext: No gross edema Neuro: No new gross deficits appreciated Musculoskeletal: no gross joint erythema, edema, tenderness Skin: No lesions Lab/Current Medication Review: No results found for this or any previous visit (from the past 24 hours). Current Facility-Administered Medications Medication Dose Route Frequency Provider Last Rate Last Admin albuterol HFA (PROVENTIL HFA,VENTOLIN HFA,PROAIR HFA) 90 mcg/actuation inhaler 2 puff 2 puff inhalation PRN Deana Crandall PA albuterol HFA (PROVENTIL HFA,VENTOLIN HFA,PROAIR HFA) 90 mcg/actuation inhaler 2 puff 2 puff inhalation QID PRN (RT) Deana Crandall PA Carrier Fluids for Secondary Infusion - 0.9% Sodium Chloride 0-999 mL intravenous PRN Deana Crandall PA 25 mL/hr at 02/17/25 0729 Rate Verify at 02/17/25 0729 dextrose 5% and sodium chloride 0.45% infusion (premix) 100 mL/hr intravenous Continuous Mahasneh, Ezequiel Ali Adrienne, MD guaiFENesin (ROBITUSSIN) 20 mg/mL oral liquid 200 mg 200 mg oral QID PRN Deana Crandall PA HYDROmorphone (DILAUDID) injection 1.5 mg 1.5 mg intravenous Q3H PRN Ezequiel Carrizales MD 1.5 mg at 02/17/25 0904 ketorolac (TORADOL) 30 mg/mL injection 30 mg 30 mg intravenous Q6H [facility] Ezequiel Carrizales MD 30 mg at 02/16/25 2339 naloxone (NARCAN) 0.4 mg/mL injection 0.4 mg 0.4 mg intravenous Q10 Min PRN Deana Crandall PA ondansetron (ZOFRAN) injection 4 mg 4 mg intravenous Q4H PRN Deana Crandall PA oxyCODONE-acetaminophen (PERCOCET) 10-325 mg per tablet 3 tablet 3 tablet oral Q8H PRN Ezequiel Carrizales MD ramelteon (ROZEREM) tablet 8 mg 8 mg oral Nightly PRN Deana Crandall PA senna-docusate (PERICOLACE) 8.6-50 mg per tablet 1 tablet 1 tablet oral Nightly Deana Crandall PA sodium chloride 0.9% flush 0.5-20 mL 0.5-20 mL intra-catheter Q8H [facility] (ALT) Deana Crandall PA 10mL at 02/17/25 0800 sodium chloride 0.9% flush 0.5-20 mL 0.5-20 mL intra-catheter PRN Deana Crandall PA A/P: Sickle cell pain: on iv fluids, pain control CTPE is negative 2. Diarrheal illness: for stool studies, 3. PTSD: on home meds Had a very good conversation with the patient. He is os going to work on his pain regimena nd cooperate, He himself asked for his dilaudid dose to be reduced to 1.5 mg and cross taper to percocet 02/17: Doing well, pain relatively controlled by this regimen HB is stable at 7.8, added hypotonic iv fluids, retic count is good, LDH pending Active Problems: Shortness of breath Diarrhea Abnormal chest x-ray Chest pain S/P splenectomy Sickle-cell crisis Cough PTSD (post-traumatic stress disorder) Ezequiel Carrizales MD 02/17/2025 10:59 AM MDM complexity level: Moderate * Kassy George, CERTIFIED TECHNICIAN - 02/17/2025 9:09 AM CDT Oncology Medicine Daily Progress SUBJECTIVE: Chief complaint of uncontrolled pain. Interval History: Mr. Villalpando seen and examined resting in bed. He continues to complain of uncontrolled pain. Denies fever, chills, chest pain, or dyspnea. Review of Systems All other systems reviewed and are negative. OBJECTIVE: Vitals: 24hr Min/Max: Temp Min: 36.3 ??C (97.3 ??F) Max: 37.3 ??C (99.1 ??F) Pulse Min: 76 Max: 95 BP Min: 97/65 Max: 133/96 Resp Min: 16 Max: 22 SpO2 Min: 92 % Max: 99 % .Temp (24hrs), Av.8 ??C (98.3 ??F), Min:36.3 ??C (97.3 ??F), Max:37.3 ??C (99.1 ??F) Most Recent : Vitals: 02/16/25 2302 02/16/25 2344 02/17/25 0421 02/17/25 0808 BP: 121/81 120/79 133/96 BP Location: Right arm Right arm Right arm Patient Position: Lying Lying Lying Pulse: 82 88 83 76 Resp: 17 18 Temp: 37.3 ??C (99.1 ??F) 37.1 ??C (98.8 ??F) 36.9 ??C (98.4 ??F) TempSrc: Oral Oral Oral SpO2: 99% 95% Weight: Height: ECO 0 Fully active; no [...] 5:649. I/O last 2 completed shifts: In: 1759 [P.O.:1740; I.V.:20] Out: 2024 [Urine:2024] I/O this shift: In: 0 Out: 700 [Urine:700] Current Facility-Administered Medications Medication Dose Route Frequency Provider Last Rate Last Admin albuterol HFA (PROVENTIL HFA,VENTOLIN HFA,PROAIR HFA) 90 mcg/actuation inhaler 2 puff 2 puff inhalation PRN Deana Crandall PA albuterol HFA (PROVENTIL HFA,VENTOLIN HFA,PROAIR HFA) 90 mcg/actuation inhaler 2 puff 2 puff inhalation QID PRN (RT) Deana Crandall PA Carrier Fluids for Secondary Infusion - 0.9% Sodium Chloride 0-999 mL intravenous PRN Deana Crandall PA 25 mL/hr at 02/17/25 0729 Rate Verify at 02/17/25 0729 guaiFENesin (ROBITUSSIN) 20 mg/mL oral liquid 200 mg 200 mg oral QID PRN Deana Crandall PA HYDROmorphone (DILAUDID) injection 1.5 mg 1.5 mg intravenous Q3H PRN Ezequiel Carrizales MD 1.5 mg at 02/17/25 0904 ketorolac (TORADOL) 30 mg/mL injection 30 mg 30 mg intravenous Q6H [facility] Ezequiel Carrizales MD 30 mg at 02/16/25 2339 naloxone (NARCAN) 0.4 mg/mL injection 0.4 mg 0.4 mg intravenous Q10 Min PRN Deana Crandall PA ondansetron (ZOFRAN) injection 4 mg 4 mg intravenous Q4H PRN Deana Crandall PA oxyCODONE-acetaminophen (PERCOCET) 10-325 mg per tablet 3 tablet 3 tablet oral Q8H PRN Ezequiel Carrizales MD ramelteon (ROZEREM) tablet 8 mg 8 mg oral Nightly PRN Deana Crandall PA senna-docusate (PERICOLACE) 8.6-50 mg per tablet 1 tablet 1 tablet oral Nightly Deana Crandall PA sodium chloride 0.9% flush 0.5-20 mL 0.5-20 mL intra-catheter Q8H [facility] (ALT) Deana Crandall PA 10mL at 02/16/25 2339 sodium chloride 0.9% flush 0.5-20 mL 0.5-20 mL intra-catheter PRN Deana Crandall PA ketorolac, 30 mg, intravenous, Q6H [facility] senna-docusate, 1 tablet, oral, Nightly sodium chloride 0.9%, 0.5-20 mL, intra-catheter, Q8H [facility] (ALT) albuterol HFA albuterol HFA sodium chloride 0.9% guaiFENesin HYDROmorphone naloxone ondansetron oxyCODONE-acetaminophen ramelteon sodium chloride 0.9% Physical Exam: Physical Exam Vitals reviewed. Constitutional: General: He is not in acute distress. Appearance: He is obese. HENT: Head: Normocephalic and atraumatic. Nose: Nose normal. Eyes: General: Scleral icterus present. Cardiovascular: Rate [...] Mood normal. Behavior: Behavior normal. Lab/Radiology/Diagnostic Review: Recent Results (from the past 24 hours) Blood culture Blood Collection Time: 02/16/25 9:50 AM Specimen: Blood Result Value Ref Range Report Preliminary Report: No growth to date. Comprehensive metabolic panel Collection Time: 02/16/25 9:50 AM Result Value Ref Range Sodium 138 135 - 145 mmol/L Potassium, pl 3.8 3.3 - 4.9 mmol/L Chloride 104 97 - 110 mmol/L CO2 23 22 - 32 mmol/L Anion gap 11 2 - 15 mmol/L BUN 2 (L) 6 - 25 mg/dL Creatinine 0.52 (L) 0.80 - 1.30 mg/dL Glucose 104 70 - 199 mg/dL Calcium 8.5 8.5 - 10.3 mg/dL Bilirubin, total 5.6 (H) 0.1 - 1.2 mg/dL Protein, pl 6.7 6.5 - 8.5 g/dL Albumin 3.9 3.5 - 5.0 g/dL Alk phos 260 (H) 40 - 130 Units/L ALT 40 7 - 55 Units/L AST 61 (H) 10 - 50 Units/L eGFR Collection Time: 02/16/25 9:50 AM Result Value Ref Range eGFR >90 >=60 mL/min/1.73 m2 Lactate dehydrogenase (LD) Collection Time: 02/16/25 9:50 AM Result Value Ref Range Lactate dehydrogenase (LDH) 464 (H) 100 - 250 Units/L Blood culture Blood Collection Time: 02/16/25 10:02 AM Specimen: Blood Result Value Ref Range Report Preliminary Report: No growth to date. CBC with auto differential Collection Time: 02/16/25 10:46 AM Result Value Ref Range WBC 9.97 (H) 3.80 - 9.90 K/cumm Hgb 7.8 (L) 13.0 - 17.5 g/dL Hct 23.0 (L) 38.9 - 50.3 % Plt 280 150 - 400 K/cumm MPV 10.1 9.1 - 12.3 fL RBC 2.50 (L) 4.30 - 5.80 M/cumm MCV 92.0 81.3 - 96.4 fL MCH 31.2 27.1 - 33.3 pg MCHC 33.9 32.3 - 35.7 g/dL RDW CV 22.7 (H) 11.1 - 14.9 % RDW SD 74.2 (H) 35.7 - 48.1 fL NRBC abs 0.13 (H) 0.00 - 0.01 K/cumm Morphologic Screen Results confirmed by manual morphology review. Differential, auto Collection Time: 02/16/25 10:46 AM Result Value Ref Range Neutrophil abs 4.16 1.50 - 6.50 K/cumm Imm gran abs 0.05 0.00 - 0.10 K/cumm Lymphocyte abs 4.15 (H) 0.80 - 3.30 K/cumm Monocyte abs 1.13 (H) 0.20 - 0.80 K/cumm Eosinophil abs 0.41 0.00 - 0.50 K/cumm Basophil abs 0.07 0.00 - 0.10 K/cumm Neutrophil pct 41.8 % Imm gran pct 0.5 % Lymphocyte pct 41.6 % Monocyte pct 11.3 % Eosinophil pct 4.1 % Basophil pct 0.7 % Reticulocyte Count Collection Time: 02/16/25 10:46 AM Result Value Ref Range Retics, absolute 278 (H) 20 - 87 K/cumm Retics 19.0 (H) 0.4 - 2.9 % Reticulocyte Hgb 29.4 (L) 30.5 - 38.[address] Chest PE (CTA) Abdomen Pelvis W Contrast Result Date: 02/15/2025 Narrative: EXAM DESCRIPTION: CT CHEST PE (CTA) ABDOMEN PELVIS W CONTRAST REASON FOR STUDY: chest pain/sickle cell/diarrhea/nausea chest pain/sickle cell/diarrhea/nausea. Patient refused lowering jeans for scans. TECHNIQUE: CT angiogram of the chest with routine abdomen and pelvis performed with intr avenous and without oral contrast using helical scanning technique with dynamic intravenous contrast injection. Reconstructed coronal and sagittal MPR images reviewed. All images stored on PACS. 3D MIP images of the chest rendered on scanning unit and reviewed at time of interpretation. Automated exposure control was used as a dose optimization technique for this examination. CONTRAST TYPE/DOSE: 100mL of IOVERSOL 350 MG IODINE/ML INTRAVENOUS SYRINGE injected via intravenous COMPARISON: CT abdomen pelvis 01/08/2025 FINDINGS: CHEST CHEST VASCULATURE: No acute pulmonary thromboembolism. LUNGS: Bilateral ground-glass opacities with smooth interlobular septal thickening, greatest in the lower lob es may represent edema. No suspicious pulmonary nodule. No focal consolidation. PLEURA: No effusion. No pneumothorax. MEDIASTINUM/VICTORIANO: No identified masses or abnormal nodes. HEART: Heart size is normal with no pericardial effusion. AXILLA: No adenopathy. CHEST WALL: No masses. No subcutaneous air. HARDWARE/LINES/TUBES: None. MUSCULOSKELETAL CHEST: No significant abnormality. ABDOMEN/PELVIS LIVER: Normal size. No identified cystic or solid masses. GALLBLADDER: Surgically absent BILE DUCTS: No intrahepatic or extrahepatic ductal dilatation. SPLEEN: Auto splenectomy PANCREAS: No identified cystic or solid masses. No significant calcifications. No adjacent inflammation or peripancreatic fluidcollections. Pancreatic duct not dilated. ADRENALS: Normal. KIDNEYS/URINARY TRACT: No identified significant cystic or solid masses. No visualized stones. No hydronephrosis or hydroureter. Symmetric enhancement. Urinary bladder is unremarkable. GI: No dilated bowel loops. No obvious wall thickening. Normal appendix. No significant diverticular disease. PERITONEUM: No ascites or free air. RETROPERITONEUM: No mass or adenopathy. REPRODUCTIVE: No significant abnormality. VASCULATURE ABDOMEN: No abdominal aortic aneurysm. MUSCULOSKELETAL ABDOMEN PELVIS: No acute finding. OTHER: No significant abno rmality. IMPRESSION: No evidence of pulmonary embolism. No acute abnormality of the abdomen or pelvis. THIS IS AN ELECTRONICALLY VERIFIED FINAL REPORT 02/15/2025 8:24 PM - Electronically signed by Anne Merchant M.D. FT: FT Report ID: [id number] Reading Location: [id number] XR Chest 1Vw Portable Result Date: 01/30/2025 Narrative: PROCEDURE: XR CHEST 1VW PORTABLE DATE/TIME OF EXAM: 01/30/2025 6:40 AM INDICATION: R07.9: Chest pain, unspecified type COMPARISON: 12/24/2024 ADDITIONAL CLINICAL INFORMATION (if provided): Ordering Provider Reason For Exam: Findings: The heart is borderline enlarged. The aorta is normal in caliber. The lungs are now clear. There is no confluent infiltrate or effusion. There is no pneumothor ax. There is no mass or adenopathy.. . Impression: IMPRESSION: Borderline cardiac silhouette for age. No acute pulmonary infiltrate > Interpreting Provider: Leopoldo Martin MD on 01/30/2025 8:40 AM XR LUMB SPINE 3V Result Date: 01/29/2025 Narrative: [facility] [address] [place], [place] [address] Examination: XR LUMB SPINE 3V Exam time: 01/29/2025 5:12 PM Clinical history: Low back pain onset 3 days ago. History of sickle cell disease Comparison: Chest radiograph 01/18/2025. CT chest, abdomen, and pelvis 10/30/2024. Technique: 3 views of the lumbar spine. Findings: There are 5 nonrib- bearing lumbar-type vertebral bodies. There are chronic appearing superior and inferior endplate changes with an H shaped configuration in keeping with history of sickle cell. There is normal alignment of theanterior and posterior elements. Facet alignment is maintained. Intervertebral disc spaces are relat ively preserved. No definite acute displaced fractures identified in the lumbar spine. There is curvilinear sclerosis within the left femoral head suggestive of osteonecrosis. Somewhat heterogeneous sclerosis of the pelvis and sacrum, similar to CT 10/30/2024. Cholecystectomy clips are noted. Impression: IMPRESSION: 1. No acute osseous abnormality. 2. [...] Oliva DO, 01/29/2025 6:11 PM XR Chest 1 View Result Date: 01/18/2025 Narrative: [facility] [address] [place], [place] [address] Examination: XR CHEST PORTABLE Exam time: 01/18/2025 4:24 PM Clinical history: Chest pain. Sicklecell disease. Comparison: 12/31/2024 AP view Technique: AP upright view Findings: Mild rotation to the left. Cardiac silhouette within normal limits. Stable slight prominence central pulmonary vasculature. No evidence of focal atelectasis or consolidation. No evidence of pleural effusion. Increased density superior aspect right humeral head appears stable and may represent avascular necrosis. Overall, no definitive radiographic evidence of active chest disease. Impression: IMPRESSION: No definitive radiographic evidence of active chest disease. Ordered By: VIVEK HUERTA Interpreted By: Emory Alvarado MD, 01/18/2025 4:40 PM * Cannot find OR log * ASSESSMENT/PLAN: Active Problems: Shortness of breath Diarrhea Abnormal chest x-ray Chest pain S/P splenectomy Sickle-cell crisis Cough PTSD (post-traumatic stress disorder) Mr. Villalpando is a 29 year old male admitted with sickle cell pain crisis. Sickle cell crisis Uncontrolled pain - Agree with using home dose of pain medication; percocet 10/325 x3 every 8 hours PRN. - Continue folic acid 1 mg daily. - Transfuse to maintain hemoglobin >7.0. - Daily CBC while admitted - Daily CMP while admitted - Daily reticulocyte count while admitted. 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 - H&H remains stable. Wean IV narcotics to work towards discharge. Kassy George, [place], CHIEF PASSENGER SHIP STEWARD/STEWARDESS-C, CCRN Division of Medical Oncology [employer] [facility] [employer] I have discussed the assessment and plan of care of this patient with my collaborating physician. Cosigned by Vicente Laboy MD at 02/17/2025 4:18 PM CDT * Ezequiel Carrizales MD - 02/16/2025 1:38 PM CDT General Medicine Daily Progress SUBJECTIVE Chief complaint of sickle cell crisis. Interval History: 02/16: in pain OBJECTIVE Vitals: 24hr Min/Max: Temp Min: 36.3 ??C (97.3 ??F) Max: 37 ??C (98.6 ??F) Pulse Min: 77 Max: 95 BP Min: 97/65 Max: 133/81 Resp Min: 16 Max: 22 SpO2 Min: 91 % Max: 95 % Most Recent : Vitals: 02/16/25 1213 BP: 97/65 Pulse: 95 Resp: 22 Temp: 36.3 ??C (97.3 ??F) SpO2: 92% I/O last 2 completed shifts: In: 1260 [P.O.:1260] Out: 3100 [Urine:3100] I/O this shift: In: 250 [P.O.:240; I.V.:10] Out: 500 [Urine:500] Physical Exam: Eyes: EOMI, KATLYN, sclare non icteric Neck: supple, no nuchal ridigity, no gross carotid bruits appreciated Pharynx: No gross oral lesion, tongue midline, mucosa moist Lungs CTA Heart: [id number] Abd: +BS, Non Tender, Non distended, No gross hepatomegaly Lower Ext: No gross edema Neuro: No new gross deficits appreciated Musculoskeletal: no gross joint erythema, edema, tenderness Skin: No lesions Lab/Current Medication Review: Recent Results (from the past 24 hours) CBC with auto differential Collection Time: 02/15/25 2:20 PM Result Value Ref Range WBC 11.92 (H) 3.80 - 9.90 K/cumm Hgb 7.7 (L) 13.0 - 17.5 g/dL Hct 22.2 (L) 38.9 - 50.3 % Plt 292 150 - 400 K/cumm MPV 10.0 9.1 - 12.3 fL RBC 2.46 (L) 4.30 - 5.80 M/cumm MCV 90.2 81.3 - 96.4 fL MCH 31.3 27.1 - 33.3 pg MCHC 34.7 32.3 - 35.7 g/dL RDW CV 22.0 (H) 11.1 - 14.9 % RDW SD 71.7 (H) 35.7 - 48.1 fL NRBC abs 0.09 (H) 0.00 - 0.01 K/cumm Differential, auto Collection Time: 02/15/25 2:20 PM Result Value Ref Range Neutrophil abs 6.11 1.50 - 6.50 K/cumm Imm gran abs 0.03 0.00 - 0.10 K/cumm Lymphocyte abs 4.59 (H) 0.80 - 3.30 K/cumm Monocyte abs 1.00 (H) 0.20 - 0.80 K/cumm Eosinophil abs 0.14 0.00 - 0.50 K/cumm Basophil abs 0.05 0.00 - 0.10 K/cumm Neutrophil pct 51.2 % Imm gran pct 0.3 % Lymphocyte pct 38.5 % Monocyte pct 8.4 % Eosinophil pct 1.2 % Basophil pct 0.4 % Sepsis Lactate w/ Reflex Collection Time: 02/15/25 3:41 PM Result Value Ref Range Sepsis Lactate 1.4 0.7 - 2.0 mmol/L Comprehensive metabolic panel Collection Time: 02/15/25 3:53 PM Result Value Ref Range Sodium 142 135 - 145 mmol/L Potassium, pl 3.0 (L) 3.3 - 4.9 mmol/L Chloride 106 97 - 110 mmol/L CO2 24 22 - 32 mmol/L Anion gap 12 2 - 15 mmol/L BUN 3 (L) 6 - 25 mg/dL Creatinine 0.60 (L) 0.80 - 1.30 mg/dL Glucose 121 70 - 199 mg/dL Calcium 8.2 (L) 8.5 - 10.3 mg/dL Bilirubin, total 6.0 (H) 0.1 - 1.2 mg/dL Protein, pl 6.7 6.5 - 8.5 g/dL Albumin 3.8 3.5 - 5.0 g/dL Alk phos 261 (H) 40 - 130 Units/L ALT 36 7 - 55 Units/L AST 48 10 - 50 Units/L eGFR Collection Time: 02/15/25 3:53 PM Result Value Ref Range eGFR >90 >=60 mL/min/1.73 m2 Comprehensive metabolic panel Collection Time: 02/16/25 9:50 AM Result Value Ref Range Sodium 138 135 - 145 mmol/L Potassium, pl 3.8 3.3 - 4.9 mmol/L Chloride 104 97 - 110 mmol/L CO2 23 22 - 32 mmol/L Anion gap 11 2 - 15 mmol/L BUN 2 (L) 6 - 25 mg/dL Creatinine 0.52 (L) 0.80 - 1.30 mg/dL Glucose 104 70 - 199 mg/dL Calcium 8.5 8.5 - 10.3 mg/dL Bilirubin, total 5.6 (H) 0.1 - 1.2 mg/dL Protein, pl 6.7 6.5 - 8.5 g/dL Albumin 3.9 3.5 - 5.0 g/dL Alk phos 260 (H) 40 - 130 Units/L ALT 40 7 - 55 Units/L AST 61 (H) 10 - 50 Units/L eGFR Collection Time: 02/16/25 9:50 AM Result Value Ref Range eGFR >90 >=60 mL/min/1.73 m2 Lactate dehydrogenase (LD) Collection Time: 02/16/25 9:50 AM Result Value Ref Range Lactate dehydrogenase (LDH) 464 (H) 100 - 250 Units/L CBC with auto differential Collection Time: 02/16/25 10:46 AM Result Value Ref Range WBC 9.97 (H) 3.80 - 9.90 K/cumm Hgb 7.8 (L) 13.0 - 17.5 g/dL Hct 23.0 (L) 38.9 - 50.3 % Plt 280 150 - 400 K/cumm MPV 10.1 9.1 - 12.3 fL RBC 2.50 (L) 4.30 - 5.80 M/cumm MCV 92.0 81.3 - 96.4 fL MCH 31.2 27.1 - 33.3 pg MCHC 33.9 32.3 - 35.7 g/dL RDW CV 22.7 (H) 11.1 - 14.9 % RDW SD 74.2 (H) 35.7 - 48.1 fL NRBC abs 0.13 (H) 0.00 - 0.01 K/cumm Morphologic Screen Results confirmed by manual morphology review. Differential, auto Collection Time: 02/16/25 10:46 AM Result Value Ref Range Neutrophil abs 4.16 1.50 - 6.50 K/cumm Imm gran abs 0.05 0.00 - 0.10 K/cumm Lymphocyte abs 4.15 (H) 0.80 - 3.30 K/cumm Monocyte abs 1.13 (H) 0.20 - 0.80 K/cumm Eosinophil abs 0.41 0.00 - 0.50 K/cumm Basophil abs 0.07 0.00 - 0.10 K/cumm Neutrophil pct 41.8 % Imm gran pct 0.5 % Lymphocyte pct 41.6 % Monocyte pct 11.3 % Eosinophil pct 4.1 % Basophil pct 0.7 % Reticulocyte Count Collection Time: 02/16/25 10:46 AM Result Value Ref Range Retics, absolute 278 (H) 20 - 87 K/cumm Retics 19.0 (H) 0.4 - 2.9 % Reticulocyte Hgb 29.4 (L) 30.5 - 38.0 pg Current Facility-Administered Medications Medication Dose Route Frequency Provider Last Rate Last Admin albuterol HFA (PROVENTIL HFA,VENTOLIN HFA,PROAIR HFA) 90 mcg/actuation inhaler 2 puff 2 puff inhalation PRN Deana Crandall PA albuterol HFA (PROVENTIL HFA,VENTOLIN HFA,PROAIR HFA) 90 mcg/actuation inhaler 2 puff 2 puff inhalation QID PRN (RT) Deana Crandall PA azithromycin (ZITHROMAX) 500 mg/250 mL in sodium chloride 0.9% (premix) 500 mg 500 mg intravenous Q24H Ezequiel Bowden MD Stopped at 02/15/25 1412 Carrier Fluids for Secondary Infusion - 0.9% Sodium Chloride 0-999 mL intravenous PRN Deana Crandall PA 25 mL/hr at 02/16/25 0035 Rate Verify at 02/16/25 0035 guaiFENesin (ROBITUSSIN) 20 mg/mL oral liquid 200 mg 200 mg oral QID PRN Deana Crandall PA HYDROmorphone (DILAUDID) injection 2 mg 2 mg intravenous Q3H PRN Ezequiel Carrizales MD 2 mg at 02/16/25 1105 ketorolac (TORADOL) 30 mg/mL injection 30 mg 30 mg intravenous Q6H Ezequiel Bowden MD 30 mg at 02/16/25 1202 naloxone (NARCAN) 0.4 mg/mL injection 0.4 mg 0.4 mg intravenous Q10 Min PRN Deana Crandall PA ondansetron (ZOFRAN) injection 4 mg 4 mg intravenous Q4H PRN Deana Crandall PA oxyCODONE (ROXICODONE) tablet 15 mg 15 mg oral QID Deana Crandall PA 15 mg at 02/16/25 1232 ramelteon (ROZEREM) tablet 8 mg 8 mg oral Nightly PRN Deana Crandall PA senna-docusate (PERICOLACE) 8.6-50 mg per tablet 1 tablet 1 tablet oral Nightly Deana Crandall PA sodium chloride 0.9% flush 0.5-20 mL 0.5-20 mL intra-catheter Q8H MICHEAL (ALT) Deana Crandall PA 10mL at 02/16/25 0800 sodium chloride 0.9% flush 0.5-20 mL 0.5-20 mL intra-catheter PRN Deana Crandall PA A/P: Sickle cell pain: on iv fluids, pain control CTPE is negative 2. Diarrheal illness: for stool studies, 3. PTSD: on home meds Had a very good conversation with the patient. He is os going to work on his pain regimena nd cooperate, He himself asked for his dilaudid dose to be reduced to 1.5 mg and cross taper to percocet Active Problems: Shortness of breath Diarrhea Abnormal chest x-ray Chest pain S/P splenectomy Sickle-cell crisis Cough PTSD (post-traumatic stress disorder) Ezequiel Carrizales MD 02/16/2025 1:38 PM MDM complexity level: Moderate * Kassy George CERTIFIED TECHNICIAN - 02/16/2025 9:39 AM CDT Oncology Medicine Daily Progress SUBJECTIVE: Chief complaint of uncontrolled pain. Interval History: Mr. Villalpando seen and examined resting in bed. He reports that he continues to have uncontrolled pain. Denies chest pain, fever, chills, dyspnea. Review of Systems All other systems reviewed and are negative. OBJECTIVE: Vitals: 24hr Min/Max: Temp Min: 36.5 ??C (97.7 ??F) Max: 37 ??C (98.6 ??F) Pulse Min: 77 Max: 93 BP Min: 108/66 Max: 136/93 Resp Min: 16 Max: 20 SpO2 Min: 91 % Max: 95 % .Temp (24hrs), Av.8 ??C (98.2 ??F), Min:36.5 ??C (97.7 ??F), Max:37 ??C (98.6 ??F) Most Recent : Vitals: 02/15/25 2300 02/15/25 2352 02/16/25 0441 02/16/25 0912 BP: 111/85 119/85 115/66 BP Location: Right arm Right arm Right arm Patient Position: Lying Lying Lying Pulse: 93 82 85 78 Resp: 19 16 20 Temp: 37 ??C (98.6 ??F) 36.9 ??C (98.4 ??F) 36.6 ??C (97.9 ??F) TempSrc: Oral Oral Oral SpO2: 95% 93% 92% Weight: Height: ECO 0 Fully active; no [...] Adapted from: Nikkie MM, Kenzie RH, Lynne DC, et al. Toxicity and response criteria of the Eastern Cooperative Oncology Group. Am J Clin Oncol 1982; 5:649. I/O last 2 completed shifts: In: 1260 [P.O.:1260] Out: 3100 [Urine:3100] I/O this shift: In: 10 [I.V.:10] Out: - Current Facility-Administered Medications Medication Dose Route Frequency Provider Last Rate Last Admin albuterol HFA (PROVENTIL HFA,VENTOLIN HFA,PROAIR HFA) 90 mcg/actuation inhaler 2 puff 2 puff inhalation PRN Deana Crandall PA albuterol HFA (PROVENTIL HFA,VENTOLIN HFA,PROAIR HFA) 90 mcg/actuation inhaler 2 puff 2 puff inhalation QID PRN (RT) Deana Crandall PA azithromycin (ZITHROMAX) 500 mg/250 mL in sodium chloride 0.9% (premix) 500 mg 500 mg intravenous Q24H Ezequiel Bowden MD Stopped at 02/15/25 1412 Carrier Fluids for Secondary Infusion - 0.9% Sodium Chloride 0-999 mL intravenous PRN Deana Crandall PA 25 mL/hr at 02/16/25 0035 Rate Verify at 02/16/25 0035 guaiFENesin (ROBITUSSIN) 20 mg/mL oral liquid 200 mg 200 mg oral QID PRN Deana Crandall PA HYDROmorphone (DILAUDID) injection 2 mg 2 mg intravenous Q3H PRN Ezequiel Carrizales MD 2 mg at 02/16/25 0755 ketorolac (TORADOL) 30 mg/mL injection 30 mg 30 mg intravenous Q6H [facility] Ezequiel Carrizales MD 30 mg at 02/16/25 0554 naloxone (NARCAN) 0.4 mg/mL injection 0.4 mg 0.4 mg intravenous Q10 Min PRN Deana Crandall PA ondansetron (ZOFRAN) injection 4 mg 4 mg intravenous Q4H PRN Deana Crandall PA oxyCODONE (ROXICODONE) tablet 15 mg 15 mg oral QID Deana Crandall PA 15 mg at 02/16/25 0755 ramelteon (ROZEREM) tablet 8 mg 8 mg oral Nightly PRN Deana Crandall PA senna-docusate (PERICOLACE) 8.6-50 mg per tablet 1 tablet 1 tablet oral Nightly Deana Crandall PA sodium chloride 0.9% flush 0.5-20 mL 0.5-20 mL intra-catheter Q8H MICHEAL (ALT) Deana Crandall PA 10mL at 02/16/25 0800 sodium chloride 0.9% flush 0.5-20 mL 0.5-20 mL intra-catheter PRN Deana Crandall PA azithromycin, 500 mg, intravenous, Q24H MICHEAL ketorolac, 30 mg, intravenous, Q6H MICHEAL oxyCODONE, 15 mg, oral, QID senna-docusate, 1 tablet, oral, Nightly sodium chloride 0.9%, 0.5-20 mL, intra-catheter, Q8H MICHEAL (ALT) albuterol HFA albuterol HFA sodium chloride 0.9% guaiFENesin HYDROmorphone naloxone ondansetron ramelteon sodium chloride 0.9% Physical Exam: Physical Exam Vitals reviewed. Constitutional: General: He is not in acute distress. Appearance: He is obese. HENT: Head: Normocephalic and atraumatic. Nose: Nose normal. Eyes: General: Scleral icterus present. Cardiovascular: Rate [...] Mood normal. Behavior: Behavior normal. Lab/Radiology/Diagnostic Review: Recent Results (from the past 24 hours) ECG 12 lead Collection Time: 02/15/25 1:13 PM Result Value Ref Range Ventricular Rate EKG/Min 82 BPM Atrial Rate 82 BPM MI-Interval (MSEC) 174 ms QRS-Interval (MSEC) 80 ms QT-Interval (MSEC) 404 ms QTc 472 ms P [place] 62 degrees R [place] 15 degrees T [place] 24 degrees Diagnosis Normal sinus rhythm Normal ECG When compared with ECG of 16-JAN-2025 14:47, Nonspecific T wave abnormality, improved in Inferior leads Nonspecific T wave abnormality no longer evident in Anterolateral leads Confirmed by KEVON BYRD M.D. ([id number]) on 02/15/2025 2:52:50 PM Influenza A/B, RSV, and COVID-19 PCR Nasopharyngeal Collection Time: 02/15/25 1:35 PM Specimen: Nasopharyngeal Result Value Ref Range COVID-19 RNA Negative Negative Influenza A RNA Negative Negative Influenza B RNA Negative Negative RSV RNA Negative Negative CBC with auto differential Collection Time: 02/15/25 2:20 PM Result Value Ref Range WBC 11.92 (H) 3.80 - 9.90 K/cumm Hgb 7.7 (L) 13.0 - 17.5 g/dL Hct 22.2 (L) 38.9 - 50.3 % Plt 292 150 - 400 K/cumm MPV 10.0 9.1 - 12.3 fL RBC 2.46 (L) 4.30 - 5.80 M/cumm MCV 90.2 81.3 - 96.4 fL MCH 31.3 27.1 - 33.3 pg MCHC 34.7 32.3 - 35.7 g/dL RDW CV 22.0 (H) 11.1 - 14.9 % RDW SD 71.7 (H) 35.7 - 48.1 fL NRBC abs 0.09 (H) 0.00 - 0.01 K/cumm Differential, auto Collection Time: 02/15/25 2:20 PM Result Value Ref Range Neutrophil abs 6.11 1.50 - 6.50 K/cumm Imm gran abs 0.03 0.00 - 0.10 K/cumm Lymphocyte abs 4.59 (H) 0.80 - 3.30 K/cumm Monocyte abs 1.00 (H) 0.20 - 0.80 K/cumm Eosinophil abs 0.14 0.00 - 0.50 K/cumm Basophil abs 0.05 0.00 - 0.10 K/cumm Neutrophil pct 51.2 % Imm gran pct 0.3 % Lymphocyte pct 38.5 % Monocyte pct 8.4 % Eosinophil pct 1.2 % Basophil pct 0.4 % Sepsis Lactate w/ Reflex Collection Time: 02/15/25 3:41 PM Result Value Ref Range Sepsis Lactate 1.4 0.7 - 2.0 mmol/L Comprehensive metabolic panel Collection Time: 02/15/25 3:53 PM Result Value Ref Range Sodium 142 135 - 145 mmol/L Potassium, pl 3.0 (L) 3.3 - 4.9 mmol/L Chloride 106 97 - 110 mmol/L CO2 24 22 - 32 mmol/L Anion gap 12 2 - 15 mmol/L BUN 3 (L) 6 - 25 mg/dL Creatinine 0.60 (L) 0.80 - 1.30 mg/dL Glucose 121 70 - 199 mg/dL Calcium 8.2 (L) 8.5 - 10.3 mg/dL Bilirubin, total 6.0 (H) 0.1 - 1.2 mg/dL Protein, pl 6.7 6.5 - 8.5 g/dL Albumin 3.8 3.5 - 5.0 g/dL Alk phos 261 (H) 40 - 130 Units/L ALT 36 7 - 55 Units/L AST 48 10 - 50 Units/L eGFR Collection Time: 02/15/25 3:53 PM Result Value Ref Range eGFR >90 >=60 mL/min/1.[address] Chest PE (CTA) Abdomen Pelvis W Contrast Result Date: 02/15/2025 Narrative: EXAM DESCRIPTION: CT CHEST PE (CTA) ABDOMEN PELVIS W CONTRAST REASON FOR STUDY: chest pain/sickle cell/diarrhea/nausea chest pain/sickle cell/diarrhea/nausea. Patient refused lowering jeans for scans. TECHNIQUE: CT angiogram of the chest with routine abdomen and pelvis performed with intr avenous and without oral contrast using helical scanning technique with dynamic intravenous contrast injection. Reconstructed coronal and sagittal MPR images reviewed. All images stored on PACS. 3D MIP images of the chest rendered on scanning unit and reviewed at time of interpretation. Automated exposure control was used as a dose optimization technique for this examination. CONTRAST TYPE/DOSE: 100mL of IOVERSOL 350 MG IODINE/ML INTRAVENOUS SYRINGE injected via intravenous COMPARISON: CT abdomen pelvis 01/08/2025 FINDINGS: CHEST CHEST VASCULATURE: No acute pulmonary thromboembolism. LUNGS: Bilateral ground-glass opacities with smooth interlobular septal thickening, greatest in the lower lob es may represent edema. No suspicious pulmonary nodule. No focal consolidation. PLEURA: No effusion. No pneumothorax. MEDIASTINUM/VICTORIANO: No identified masses or abnormal nodes. HEART: Heart size is normal with no pericardial effusion. AXILLA: No adenopathy. CHEST WALL: No masses. No subcutaneous air. HARDWARE/LINES/TUBES: None. MUSCULOSKELETAL CHEST: No significant abnormality. ABDOMEN/PELVIS LIVER: Normal size. No identified cystic or solid masses. GALLBLADDER: Surgically absent BILE DUCTS: No intrahepatic or extrahepatic ductal dilatation. SPLEEN: Auto splenectomy PANCREAS: No identified cystic or solid masses. No significant calcifications. No adjacent inflammation or peripancreatic fluidcollections. Pancreatic duct not dilated. ADRENALS: Normal. KIDNEYS/URINARY TRACT: No identified significant cystic or solid masses. No visualized stones. No hydronephrosis or hydroureter. Symmetric enhancement. Urinary bladder is unremarkable. GI: No dilated bowel loops. No obvious wall thickening. Normal appendix. No significant diverticular disease. PERITONEUM: No ascites or free air. RETROPERITONEUM: No mass or adenopathy. REPRODUCTIVE: No significant abnormality. VASCULATURE ABDOMEN: No abdominal aortic aneurysm. MUSCULOSKELETAL ABDOMEN PELVIS: No acute finding. OTHER: No significant abno rmality. IMPRESSION: No evidence of pulmonary embolism. No acute abnormality of the abdomen or pelvis. THIS IS AN ELECTRONICALLY VERIFIED FINAL REPORT 02/15/2025 8:24 PM - Electronically signed by Anne Merchant M.D. FT: FT Report ID: [id number] Reading Location: [id number] XR Chest 1Vw Portable Result Date: 01/30/2025 Narrative: PROCEDURE: XR CHEST 1VW PORTABLE DATE/TIME OF EXAM: 01/30/2025 6:40 AM INDICATION: R07.9: Chest pain, unspecified type COMPARISON: 12/24/2024 ADDITIONAL CLINICAL INFORMATION (if provided): Ordering Provider Reason For Exam: Findings: The heart is borderline enlarged. The aorta is normal in caliber. The lungs are now clear. There is no confluent infiltrate or effusion. There is no pneumothor ax. There is no mass or adenopathy.. . Impression: IMPRESSION: Borderline cardiac silhouette for age. No acute pulmonary infiltrate > Interpreting Provider: Leopoldo Martin MD on 01/30/2025 8:40 AM XR LUMB SPINE 3V Result Date: 01/29/2025 Narrative: [address] [id number] Examination: XR LUMB SPINE 3V Exam time: 01/29/2025 5:12 PM Clinical history: Low back pain onset 3 days ago. History of sickle cell disease Comparison: Chest radiograph 01/18/2025. CT chest, abdomen, and pelvis 10/30/2024. Technique: 3 views of the lumbar spine. Findings: There are 5 nonrib- bearing lumbar-type vertebral bodies. There are chronic appearing superior and inferior endplate changes with an H shaped configuration in keeping with history of sickle cell. There is normal alignment of theanterior and posterior elements. Facet alignment is maintained. Intervertebral disc spaces are relat ively preserved. No definite acute displaced fractures identified in the lumbar spine. There is curvilinear sclerosis within the left femoral head suggestive of osteonecrosis. Somewhat heterogeneous sclerosis of the pelvis and sacrum, similar to CT 10/30/2024. Cholecystectomy clips are noted. Impression: IMPRESSION: 1. No acute osseous abnormality. 2. [...] Oliva DO, 01/29/2025 6:11 PM XR Chest 1 View Result Date: 01/18/2025 Narrative: [address] [id number] Examination: XR CHEST PORTABLE Exam time: 01/18/2025 4:24 PM Clinical history: Chest pain. Sicklecell disease. Comparison: 12/31/2024 AP view Technique: AP upright view Findings: Mild rotation to the left. Cardiac silhouette within normal limits. Stable slight prominence central pulmonary vasculature. No evidence of focal atelectasis or consolidation. No evidence of pleural effusion. Increased density superior aspect right humeral head appears stable and may represent avascular necrosis. Overall, no definitive radiographic evidence of active chest disease. Impression: IMPRESSION: No definitive radiographic evidence of active chest disease. Ordered By: VIVEK HUERTA Interpreted By: Emory Alvarado MD, 01/18/2025 4:40 PM * Cannot find OR log * ASSESSMENT/PLAN: Active Problems: Shortness of breath Diarrhea Abnormal chest x-ray Chest pain S/P splenectomy Sickle-cell crisis Cough PTSD (post-traumatic stress disorder) Mr. Villalpando is a 29 year old male admitted with sickle cell pain crisis. Sickle cell crisis Uncontrolled pain - Downtrend of H&H likely dilutional and has remained stable from yesterday to today. - Bilirubin has also improved. - Continue oxycodone. Patient reports that he takes percocet at home 30 mg every 8 hours. At this time, we can restart this dose. - Continue folic acid 1 mg daily. - Transfuse to maintain hemoglobin >7.0. - Daily CBC while admitted - Daily CMP while admitted - Daily reticulocyte count while admitted. 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 - Unlikely that pain will completely resolve. If VSS and counts stable tomorrow, consider dischargeand f/u with Dr. Gonzalez as previously scheduled. Kassy George, TICKET CH[employer]PER ASSEMBLER, CHIEF PASSENGER SHIP STEWARD/STEWARDESS-C, CCRN Division of Medical Oncology [facility] [employer] I have discussed the assessment and plan of care of this patient with my collaborating physician. Cosigned by Dominick Ramirez Jr., MD at 02/17/2025 7:22 AM CDT * Christiano Westbrook - 02/16/2025 8:52 AM CDT 02/16/25 0800 Time Spent Start Time 0815 Patient Spiritual Assessment Spirituality Assessed Yes Quaker Affiliation Yarsani Active in Orthodoxy No Clinical Encounter Type Visited With Patient Response Type Continuing visit Routine Visit Follow-up Continue Visiting Yes Reason for visit Advanced directive Referral From Patient Interventions Interventions Complete advance directive Advance Care Planning Patient completed the AD form. It was copied, distributed, charted, and scanned in. * Mima Villasenor, RN - 02/15/2025 7:02 PM CDT 1412: Pt asked this RN to stop infusing azithromycin. Pt stated it made him feel as though he was having an out of body experience, and he did not like how it was making him feel. VIC Leblanc notified. Asked pt if he would like to switch to oral abx, per VIC Leblanc, pt declined oral abx as well. 1800: Pt refused his scheduled evening doses of oxycodone and ketorolac. * Cha Wallace - 02/15/2025 1:46 PM CDT Spiritual Care Note Cha Wallace M.Div. [facility] Pt eating lunch at this time and would like to complete advance directive the next day. 02/15/25 1300 Time Spent Start Time 1430 Patient Spiritual Assessment Spirituality Assessed Yes Quaker Affiliation Yarsani Clinical Encounter Type Visited With Patient Response Type Routine visit Reason for visit Advanced directive Interventions Interventions Offer spiritual/mu-ism support * Forrest Mason MD - 02/15/2025 6:33 AM CDT Transferring facility: [facility] Reason for transfer: Sickle cell pain crisis, rule out acute chest syndrome ED signs out 21-year-old male with past medical history of sickle cell anemia who presents to [facility] with chief complaint of diffuse pain typical of sickle cell pain crisis. Vitals reported: Stable within normal limits (143/93, 18, 98, 95% on RA ) no acute hypoxemia ED workup reported: -Hemoglobin 7.4 grams/deciliter -reticulocyte count 14,700 -bilirubin 5.8 -Troponin within normal limits -EKG reported normal -chest x-ray reported with subtle patchy infiltrates Medications received outside facility: -multiple doses of IV Dilaudid -IV fluid support -IV Toradol -IV ceftriaxone being ordered for concern of possible acute chest syndrome with reported infiltrates and chest pain Transfer requested for concern of possible need for hematology management for exchange transfusions. Patient accepted medical telemetry full admission. Working diagnosis of: -sickle cell pain crisis ; rule out acute chest syndrome Awaiting patient transfer completion - Forrest Mason MD documented in this encounter H&P Notes * Deana Crandall PA - 02/15/2025 12:29 PM CDT Images from the original note were not included. History and Physical Date of Service: 02/15/2025 Date of Admission:02/15/2025 Primary Care Physician: Laurent Gonzalez MD [phone] CHIEF COMPLAINT: Patient is a 29 y.o. male with a PMHx significant for acute chest syndrome, asthma, C diff, PTSD, claustrophobia, heart murmur, sickle cell anemia. Presents with complaint of chest pain and shortnessof breath that has been progressively worsening over the last week. HPI: Patient reports over the last week he has had increasing shortness of breath. He reports initially he was short of breath with exertion but now feels short of breath even at rest. He has had chest discomfort to his right chest that feels like sharp pain in his worse with breathing. He has had this for about 3 days. He reports he is wheezing and has a dry cough at times. No fever or chills but he has had sweats. He reports his appetite has been decreased which is typical for his sickle cell flares. He has been taking Percocet PRN for pain without relief. He has noticed his urine is darker thannormal. He has also been having diarrhea for a few days 6 bouts total that is watery. He denies abdominal pain but has had nausea. Currently he rates his chest pain at 10/10. He was transferred from [facility] to here for possible acute chest syndrome. Patient did decline taking Levaquin inthe ED. He has multiple allergies to medication and was concerned to take the antibiotic as he has had anaphylactic reactions to multiple antibiotics. History provided by patient Past Medical History: Diagnosis Date Acute chest [...] day as needed for itching or allergies folic acid (FOLVITE) 1 mg tablet Take 1 tablet (1 mg total) by mouth daily 30 tablet 1 hydrocortisone (CORTEF) 10 mg tablet Take 1 tablet (10 mg total) by mouth daily 30 tablet 0 hydrocortisone (CORTEF) 5 mg tablet Take 1 tablet (5 mg total) by mouth nightly 30 tablet 0 naloxone (NARCAN) 4 mg/actuation spray,non-aerosol Administer 1 spray into affected nostril(s) as needed for opioid reversal or respiratory depression Call 911. Administer a single spray in one nostril. Repeat every 3 minutes as needed if no or minimal response. 3 each 2 oxyCODONE (ROXICODONE) 15 mg immediate release tablet Take 1 tablet (15 mg total) by mouth every 4 (four) hours for 10 days 60 tablet 0 oxyCODONE (ROXICODONE) 20 mg tablet Take 1 tablet (20 mg total) by mouth 4 (four) times a day as needed for pain for up to 5 days 12 tablet 0 oxyCODONE (ROXICODONE) 20 mg tablet Take 1 tablet (20 mg total) by mouth every 4 (four) hours for 4days 24 tablet 0 oxyCODONE (ROXICODONE) 5 mg immediate release tablet Take 2 tablets (10 mg total) by mouth every 4 (four) hours as needed for pain for up to 1 day 12 tablet 0 oxyCODONE ER (OxyCONTIN) 10 mg 12 hr abuse-deterrent tablet Take 1 tablet (10 mg total) by mouth every 12 (twelve) hours for 5 days 10 tablet 0 polyethylene glycol (MIRALAX) 17 gram packet Take 1 packet (17 g total) by mouth daily as needed for constipation Allergies Allergen Reactions Ceftriaxone Anaphylaxis, Itching, Shortness of breath and Palpitations Reports throat swelling, itching, unable to breathe. Received benadryl 50 mg IV with improvement insymptoms (10/20/23). Tolerated cefepime 10/2023 with benadryl 25 mg IV pre-medication. Fentanyl Other (See comments) and Anaphylaxis Numbness lower lip and teeth Morphine Hives, Itching, Urticaria, Anaphylaxis and Rash Tolerates Hydromorphone 04/20/22 Has tolerated hydromorphone Adhesive Itching tape allergy Cefepime Hives and Urticaria Chlorhexidine Towelette Itching and Rash Ketamine Anxiety and Hallucinations I freaked out Piperacillin-Tazobactam Other (See comments) and Rash Doxycycline Nausea And Vomiting Social History Tobacco Use Smoking status: Never Passive exposure: Never Smokeless tobacco: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 Acute Care Needs Identified No Home Care Services N/A OP Services N/A DME N/A Post Acute Care Facility N/A Discharge Additional Assistance Does the patient need discharge transport arranged? No Type of Transportation (Lift) Has discharge transport been arranged? No Details of Transportation Patient arranged for [facility] for self. Post Discharge Care Provider Post Discharge Care Plan Next level of care provider has access to complete EMR * Plan of Care - Rae Chase RN - 02/24/2025 12:05 PM CDT Goals: Clinical Goals for the Shift: stable vital signs, rest, comfort, safety, pain management [facility] Patient Centered Goal for Treatment: DC to home Problem: Lack of Knowledge Goal: Ability to develop a pain control plan will improve Outcome: Adequate for Discharge Problem: Medication Goal: Satisfaction with pain management medication regimen will improve Outcome: Adequate for Discharge Problem: Sensory Goal: Ability to identify factors that increase pain levels will improve while working to decrease the patient's pain levels Outcome: Adequate for Discharge Problem: Coping Goal: Ability to cope will improve Outcome: Adequate for Discharge Problem: Health Behavior Goal: Identification of resources available to assist in meeting health care needs will improve Outcome: Adequate for Discharge Problem: Discharge Planning Goal: Understanding discharge needs will improve Outcome: Adequate for Discharge Problem: Skin/Tissue Integrity Goal: Skin integrity remains intact Outcome: Adequate for Discharge Goal: Incisions, wounds, or drain sites healing without S/S of infection Outcome: Adequate for Discharge Problem: Musculoskeletal Goal: Return mobility to safest level of function Outcome: Adequate for Discharge Problem: Gastrointestinal Goal: Minimal or absence of nausea and vomiting Outcome: Adequate for Discharge Goal: Maintains or returns to baseline bowel function Outcome: Adequate for Discharge Goal: Maintains adequate nutritional intake Outcome: Adequate for Discharge Problem: Hematologic Goal: Maintains hematologic stability Outcome: Adequate for Discharge Problem: Cardiovascular Goal: Maintains optimal cardiac output and hemodynamic stability Outcome: Adequate for Discharge Problem: Respiratory Goal: Ability to maintain a clear airway will improve Outcome: Adequate for Discharge Problem: Fall Risk Goal: Ability to state ways to decrease the risk of falls will improve Outcome: Adequate for Discharge Goal: Will remain free from falls Outcome: Adequate for Discharge Goal: Will remain free from injury from falls Outcome: Adequate for Discharge * Plan of Care - Erica Daniel LCSW - 02/24/2025 12:04 PM CDT SW continuing to follow for complex case. Case discussed in IDR with team. Anticipate dc today. Dc orders noted. RN to speak with pt regarding transportation from the hospital. Per hospitalist , pt notes he has pain contract through Dr. Gonzalez's [facility] and we are not to prescribe opiates from other providers. Outpt apt noted for [facility] on 04/[address] Gonzalez. Message sent to BOUCHRA Steen Coordinator with Dr. Gonzalez's office to inquire about pt's statement of having established pain contract. Enio confirmed their office should be providing him with medications if possible. Enio planning to coordinate with Dr. Gonzalez regarding medications for pt. Regarding outpt support through [facility], 7 days must pass since a patients discharge date or last pain treatment before being considered to try IV pain medication in an outpt infusion center. Pt often does not meet this requirement d/t recurrent hospitalizations. Office could offer a maximum of 2 pain treatments per month. Per Enio. 12:04p-V/m left for Tash Fisher RN/CM with [email or web address] insurance ([phone]) to provide update on dc. Awaiting call back. PLAN: Anticipate dc today. Pt not interested in speaking with this FILM PAINTER regarding dc planning/transportation per RN. Appreciate continued outpatient f/u with [facility]. No further SW needs identified at this time. Erica Daniel LCSW [phone] 02/24/2025 12:05 PM * Plan of Care - Luciana Mahmood NP - 02/24/2025 7:56 AM CDT Images from the original note were not included. Follow up Hematology Note for uncontrolled pain related to SCD. I reviewed this patient's vital signs, pertinent lab data, imaging, and other provider notes. Pertinent Results Vitals: 24hr Min/Max: Temp Min: 36.6 ??C (97.9 ??F) Max: 37.1 ??C (98.8 ??F) Pulse Min: 71 Max: 86 BP Min: 98/60 Max: 125/70 Resp Min: 16 Max: 20 SpO2 Min: 95 % Max: 100 % Most Recent : Vitals: 02/24/25 0515 BP: 100/70 Pulse: 71 Resp: 16 Temp: 36.6 ??C (97.9 ??F) SpO2: 100% Lab/Radiology/Diagnostic Review: Laboratory review: reviewed the laboratory result(s) below No results found for this or any previous visit (from the past [address] Chest PE (CTA) Abdomen Pelvis W Contrast Result Date: 02/15/2025 Narrative: EXAM DESCRIPTION: CT CHEST PE (CTA) ABDOMEN PELVIS W CONTRAST REASON FOR STUDY: chest pain/sickle cell/diarrhea/nausea chest pain/sickle cell/diarrhea/nausea. Patient refused lowering jeans for scans. TECHNIQUE: CT angiogram of the chest with routine abdomen and pelvis performed with intr avenous and without oral contrast using helical scanning technique with dynamic intravenous contrast injection. Reconstructed coronal and sagittal MPR images reviewed. All images stored on PACS. 3D MIP images of the chest rendered on scanning unit and reviewed at time of interpretation. Automated exposure control was used as a dose optimization technique for this examination. CONTRAST TYPE/DOSE: 100mL of IOVERSOL 350 MG IODINE/ML INTRAVENOUS SYRINGE injected via intravenous COMPARISON: CT abdomen pelvis 01/08/2025 FINDINGS: CHEST CHEST VASCULATURE: No acute pulmonary thromboembolism. LUNGS: Bilateral ground-glass opacities with smooth interlobular septal thickening, greatest in the lower lob es may represent edema. No suspicious pulmonary nodule. No focal consolidation. PLEURA: No effusion. No pneumothorax. MEDIASTINUM/VICTORIANO: No identified masses or abnormal nodes. HEART: Heart size is normal with no pericardial effusion. AXILLA: No adenopathy. CHEST WALL: No masses. No subcutaneous air. HARDWARE/LINES/TUBES: None. MUSCULOSKELETAL CHEST: No significant abnormality. ABDOMEN/PELVIS LIVER: Normal size. No identified cystic or solid masses. GALLBLADDER: Surgically absent BILE DUCTS: No intrahepatic or extrahepatic ductal dilatation. SPLEEN: Auto splenectomy PANCREAS: No identified cystic or solid masses. No significant calcifications. No adjacent inflammation or peripancreatic fluidcollections. Pancreatic duct not dilated. ADRENALS: Normal. KIDNEYS/URINARY TRACT: No identified significant cystic or solid masses. No visualized stones. No hydronephrosis or hydroureter. Symmetric enhancement. Urinary bladder is unremarkable. GI: No dilated bowel loops. No obvious wall thickening. Normal appendix. No significant diverticular disease. PERITONEUM: No ascites or free air. RETROPERITONEUM: No mass or adenopathy. REPRODUCTIVE: No significant abnormality. VASCULATURE ABDOMEN: No abdominal aortic aneurysm. MUSCULOSKELETAL ABDOMEN PELVIS: No acute finding. OTHER: No significant abno rmality. IMPRESSION: No evidence of pulmonary embolism. No acute abnormality of the abdomen or pelvis. THIS IS AN ELECTRONICALLY VERIFIED FINAL REPORT 02/15/2025 8:24 PM - Electronically signed by Anne Merchant M.D. FT: FT Report ID: [id number] Reading Location: [id number] XR Chest 1Vw Portable Result Date: 01/30/2025 Narrative: PROCEDURE: XR CHEST 1VW PORTABLE DATE/TIME OF EXAM: 01/30/2025 6:40 AM INDICATION: R07.9: Chest pain, unspecified type COMPARISON: 12/24/2024 ADDITIONAL CLINICAL INFORMATION (if provided): Ordering Provider Reason For Exam: Findings: The heart is borderline enlarged. The aorta is normal in caliber. The lungs are now clear. There is no confluent infiltrate or effusion. There is no pneumothor ax. There is no mass or adenopathy.. . Impression: IMPRESSION: Borderline cardiac silhouette for age. No acute pulmonary infiltrate > Interpreting Provider: Leopoldo Martin MD on 01/30/2025 8:40 AM XR LUMB SPINE 3V Result Date: 01/29/2025 Narrative: [facility] [address] [place], [place] [address] Examination: XR LUMB SPINE 3V Exam time: 01/29/2025 5:12 PM Clinical history: Low back pain onset 3 days ago. History of sickle cell disease Comparison: Chest radiograph 01/18/2025. CT chest, abdomen, and pelvis 10/30/2024. Technique: 3 views of the lumbar spine. Findings: There are 5 nonrib- bearing lumbar-type vertebral bodies. There are chronic appearing superior and inferior endplate changes with an H shaped configuration in keeping with history of sickle cell. There is normal alignment of theanterior and posterior elements. Facet alignment is maintained. Intervertebral disc spaces are relatively preserved. No definite acute displaced fractures identified in the lumbar spine. There is curvilinear sclerosis within the left femoral head suggestive of osteonecrosis. Somewhat heterogeneous sclerosis of the pelvis and sacrum, similar to CT 10/30/2024. Cholecystectomy clips are noted. Impression: IMPRESSION: 1. No acute osseous abnormality. 2. [...] By: Roland Oliva DO, 01/29/2025 6:11 PM Active Problems: Shortness of breath Diarrhea Abnormal chest x-ray Chest pain S/P splenectomy Sickle-cell crisis Cough PTSD (post-traumatic stress disorder) Resolved Problems: No resolved hospital problems. ASSESSMENT/PLAN Mr. Villalpando is a 29 year old male admitted with sickle cell pain crisis. Sickle cell crisis Uncontrolled pain - Agree with using home dose of pain medication; percocet 10/325 x3 every 8 hours PRN. - Continue folic acid 1 mg daily. - Transfuse to maintain hemoglobin >7.0. - Daily CBC while admitted - Daily CMP while admitted - Daily reticulocyte count while admitted. 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 - H&H remains stable. Wean IV narcotics to work towards discharge. 02/21/2025 -Labs remain pending -Dilaudid will be reduced in attempts to get patient discharged in next 24-48 hours 02/22/2025 -Labs remain pending 02/23/2025 -He has not had labs drawn since 02/21 as it was reported he was refusing -Encouraged to allow lab to be drawn so we can monitor and to assess if transfusion needed. Hematology will continue to follow peripherally Luciana Mahmood APRN, CHIEF PASSENGER SHIP STEWARD/STEWARDESS- Nurse Practitioner Division of Oncology [address] [place] [address], [address] [facility] [address]. 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 Patient reassessed per order, unexpected findings and/or deviations from baseline are captured in flowsheets. Frequent safety checks and comfort rounds provided. Orders and/or nursing care completed as indicated. Patient monitored for response to interventions and treatments as documented in flowsheets. * Plan of Care - Betty Zuniga RN - 02/23/2025 3:57 PM CDT Goals: Clinical Goals for the Shift: Pain,Nutrition, Comfort [facility] Patient Centered Goal for Treatment: DC to home Summary: . Neuro: AO X4, 2-IV patent and saline locked Cardiac: denies any chest pain or heart palpitations Skin: clean, dry, and intact-keloids to back and upper chest Resp: RM Air, denies any SOB or resp distress GI/: last BM 02/22/25, continent of bowel/bladder Activity: independent, report slight SOB w/ exertion Pain being treated w/Percocet Q8 & Dauladid Q8 Problem: Lack of Knowledge Goal: Ability to develop a pain control plan will improve Outcome: Progressing Flowsheets (Taken 02/23/2025 1556) Ability to develop a pain control plan will improve: Explain causes of pain and how long pain can be expected to last Teach information regarding pain management Educate pain scale for assessing level of pain Teach notification to healthcare provider of episodes of pain Problem: Medication Goal: Satisfaction with pain management medication regimen will improve Outcome: Progressing Flowsheets (Taken 02/23/2025 1556) Satisfaction with pain management medication regimen will improve: Assess satisfaction with pain management regimen Evaluate medication effects Monitor patient controlled analgesia or anesthesia Manage analgesics Provide administration of medications prior to painful activities Report inadequate pain control to healthcare provider Problem: Sensory Goal: Ability to identify factors that increase pain levels will improve while working to decrease the patient's pain levels Outcome: Progressing Flowsheets (Taken 02/23/2025 155) Ability to identify factors that increase pain levels will improve while working to decrease patients pain levels: Assess pain status Observe non-verbal cues of discomfort, such as restlessness, muscle tension, or altered vital signs Explore and collaborate with complimentary and alternative therapies Explore factors that precipitate, worsens, or relieves pain or discomfort Encourage distraction activities Provide hot or cold therapy Evaluate treatment plan for related conditions Explore alternative treatments for pain from the patient's culture Problem: Coping Goal: Ability to cope will improve Outcome: Progressing Flowsheets (Taken 02/22/2025 1558 by Farrah Guillermo, BOUCHRA) Ability to cope will Improve: Encourage vebalization of feelings surrounding pain Assess beliefs of pain Problem: Health Behavior Goal: Identification of resources available to assist in meeting health care needs will improve Outcome: Progressing Flowsheets (Taken 02/20/2025 0559 by Deana Castrejon, BOUCHRA) Identification of resources available to assist in meeting health care needs will improve: Collaborate with pain management Refer to pain support group * Plan of Care - Erica Daniel LCSW - 02/23/2025 12:56 PM CDT SW continuing to follow for complex case. Case discussed with IDR team. Hospitalist change noted. Pt continues to require IV dilaudid for pain control. Anticipate plan to wean IV narcotics to work toward discharge. SW to continue to follow and assist with needs. Continue to recommend no IV Benadryl for patient during admission unless medically necessary. Erica Daniel LCSW [phone] 02/23/2025 12:56 PM * Plan of Care - Janeth Nicholson RN - 02/23/2025 1:42 AM CDT Goals: Clinical Goals for the Shift: safe environment free from falls. monitor vs, labs, and provide comfort. Summary: Assessment of patient???s baseline is established at the beginning of the shift in flowsheets. Patient reassessed per order, unexpected findings and/or deviations from baseline are captured in flowsheets. Frequent safety checks and comfort rounds provided. Orders and/or nursing care completed as indicated. Patient monitored for response to interventions and treatments as documented in flowsheets. * Significant Event - Salas Mancera MD - 02/23/2025 12:07 AM CDT I was notified by nurse that patient continues to complain of pain 03/04. When I went into the room, patient did not appear to be in significant distress, however this my 1st interaction with the patient so I am unaware of his baseline. Patient states that he specifically requested to be taken off of the Dilaudid a couple of days ago in preparation for discharge however he states that the pain persisted. After having an extensive conversation with the patient about opioid tolerance and the importance of reducing his risk of becoming dependent, patient understood. Will order patient 1 dose of 0.5 mg IV Dilaudid now and continue his aforementioned PRN pain regimen. PILAR MAHER * Plan of Care - Farrah Guillermo RN - 02/22/2025 3:58 PM CDT Problem: Lack of Knowledge Goal: Ability to develop a pain control plan will improve Outcome: Not Progressing Flowsheets (Taken 02/22/2025 0308 by Sofia Nicholson RN) Ability to develop a pain control plan will improve: Explain causes of pain and how long pain can be expected to last Teach information regarding pain management Educate pain scale for assessing level of pain Teach notification to healthcare provider of episodes of pain Problem: Coping Goal: Ability to cope will improve Outcome: Not Progressing Flowsheets (Taken 02/22/2025 1558) Ability to cope will Improve: Encourage vebalization of feelings surrounding pain Assess beliefs of pain Problem: Skin/Tissue Integrity Goal: Skin integrity remains intact Outcome: Progressing Flowsheets (Taken 02/17/2025 005 by Janeth Nicholson, RN) Skin integrity remains intact: Monitor for areas of redness and/or skin breakdown Problem: Hematologic Goal: Maintains hematologic stability Outcome: Progressing Flowsheets (Taken 02/17/2025 005 by Janeth Nicholson, RN) Maintains Hematologic Stability: Monitor labs Goals: Clinical Goals for the Shift: safe environment free from falls. monitor vs, labs, and provide comfort. * Plan of Care - Erica Daniel LCSW - 02/22/2025 12:12 PM CDT SW continuing to follow for complex case. Case discussed with IDR team. Per hospitalist , anticipate discontinuation of IV narcotic medication and plan for dc in the next 24 hrs. spoke with pt at bedside to discuss above plan. No SW needs identified at this time. Anticipate f/u with pt at bedside on day of dc to inquire about dc needs and to promote safe dc planning. Continue to recommend no IV Benadryl for patient during admission unless medically necessary. Erica Daniel LCSW [phone] 02/22/2025 1:13 PM * Plan of Care - Luciana Mahmood NP - 02/22/2025 7:55 AM CDT Images from the original note were not included. Follow up Hematology Note for uncontrolled pain I reviewed this patient's vital signs, pertinent lab data, imaging, and other provider notes. Pertinent Results Vitals: 24hr Min/Max: Temp Min: 36.6 ??C (97.9 ??F) Max: 37 ??C (98.6 ??F) Pulse Min: 73 Max: 86 BP Min: 101/55 Max: 112/72 Resp Min: 16 Max: 18 SpO2 Min: 94 % Max: 98 % Most Recent : Vitals: 02/22/25 0000 BP: 109/62 Pulse: 85 Resp: 18 Temp: 37 ??C (98.6 ??F) SpO2: 94% Lab/Radiology/Diagnostic Review: Laboratory review: reviewed the laboratory result(s) below Recent Results (from the past 24 hours) Comprehensive metabolic panel Collection Time: 02/21/25 2:14 PM Result Value Ref Range Sodium 137 135 - 145 mmol/L Potassium, pl 3.3 3.3 - 4.9 mmol/L Chloride 102 97 - 110 mmol/L CO2 24 22 - 32 mmol/L Anion gap 11 2 - 15 mmol/L BUN 3 (L) 6 - 25 mg/dL Creatinine 0.40 (L) 0.80 - 1.30 mg/dL Glucose 94 70 - 199 mg/dL Calcium 8.7 8.5 - 10.3 mg/dL Bilirubin, total 4.4 (H) 0.1 - 1.2 mg/dL Protein, pl 7.5 6.5 - 8.5 g/dL Albumin 4.1 3.5 - 5.0 g/dL Alk phos 276 (H) 40 - 130 Units/L ALT 26 7 - 55 Units/L AST 36 10 - 50 Units/L CBC with auto differential Collection Time: 02/21/25 2:14 PM Result Value Ref Range WBC 9.68 3.80 - 9.90 K/cumm Hgb 8.5 (L) 13.0 - 17.5 g/dL Hct 24.1 (L) 38.9 - 50.3 % Plt 349 150 - 400 K/cumm MPV 10.1 9.1 - 12.3 fL RBC 2.65 (L) 4.30 - 5.80 M/cumm MCV 90.9 81.3 - 96.4 fL MCH 32.1 27.1 - 33.3 pg MCHC 35.3 32.3 - 35.7 g/dL RDW CV 21.8 (H) 11.1 - 14.9 % RDW SD 72.1 (H) 35.7 - 48.1 fL NRBC abs 0.15 (H) 0.00 - 0.01 K/cumm Reticulocyte Count Collection Time: 02/21/25 2:14 PM Result Value Ref Range Retics, absolute 369 (H) 20 - 87 K/cumm Retics 13.9 (H) 0.4 - 2.9 % Reticulocyte Hgb 31.6 30.5 - 38.0 pg Lactate dehydrogenase (LD) Collection Time: 02/21/25 2:14 PM Result Value Ref Range Lactate dehydrogenase (LDH) 407 (H) 100 - 250 Units/L Differential, auto Collection Time: 02/21/25 2:14 PM Result Value Ref Range Neutrophil abs 5.30 1.50 - 6.50 K/cumm Imm gran abs 0.03 0.00 - 0.10 K/cumm Lymphocyte abs 2.98 0.80 - 3.30 K/cumm Monocyte abs 1.17 (H) 0.20 - 0.80 K/cumm Eosinophil abs 0.15 0.00 - 0.50 K/cumm Basophil abs 0.05 0.00 - 0.10 K/cumm Neutrophil pct 54.8 % Imm gran pct 0.3 % Lymphocyte pct 30.8 % Monocyte pct 12.1 % Eosinophil pct 1.5 % Basophil pct 0.5 % eGFR Collection Time: 02/21/25 2:14 PM Result Value Ref Range eGFR >90 >=60 mL/min/1.[address] Chest PE (CTA) Abdomen Pelvis W Contrast Result Date: 02/15/2025 Narrative: EXAM DESCRIPTION: CT CHEST PE (CTA) ABDOMEN PELVIS W CONTRAST REASON FOR STUDY: chest pain/sickle cell/diarrhea/nausea chest pain/sickle cell/diarrhea/nausea. Patient refused lowering jeans for scans. TECHNIQUE: CT angiogram of the chest with routine abdomen and pelvis performed with intr avenous and without oral contrast using helical scanning technique with dynamic intravenous contrast injection. Reconstructed coronal and sagittal MPR images reviewed. All images stored on PACS. 3D MIP images of the chest rendered on scanning unit and reviewed at time of interpretation. Automated exposure control was used as a dose optimization technique for this examination. CONTRAST TYPE/DOSE: 100mL of IOVERSOL 350 MG IODINE/ML INTRAVENOUS SYRINGE injected via intravenous COMPARISON: CT abdomen pelvis 01/08/2025 FINDINGS: CHEST CHEST VASCULATURE: No acute pulmonary thromboembolism. LUNGS: Bilateral ground-glass opacities with smooth interlobular septal thickening, greatest in the lower lob es may represent edema. No suspicious pulmonary nodule. No focal consolidation. PLEURA: No effusion. No pneumothorax. MEDIASTINUM/VICTORIANO: No identified masses or abnormal nodes. HEART: Heart size is normal with no pericardial effusion. AXILLA: No adenopathy. CHEST WALL: No masses. No subcutaneous air. HARDWARE/LINES/TUBES: None. MUSCULOSKELETAL CHEST: No significant abnormality. ABDOMEN/PELVIS LIVER: Normal size. No identified cystic or solid masses. GALLBLADDER: Surgically absent BILE DUCTS: No intrahepatic or extrahepatic ductal dilatation. SPLEEN: Auto splenectomy PANCREAS: No identified cystic or solid masses. No significant calcifications. No adjacent inflammation or peripancreatic fluidcollections. Pancreatic duct not dilated. ADRENALS: Normal. KIDNEYS/URINARY TRACT: No identified significant cystic or solid masses. No visualized stones. No hydronephrosis or hydroureter. Symmetric enhancement. Urinary bladder is unremarkable. GI: No dilated bowel loops. No obvious wall thickening. Normal appendix. No significant diverticular disease. PERITONEUM: No ascites or free air. RETROPERITONEUM: No mass or adenopathy. REPRODUCTIVE: No significant abnormality. VASCULATURE ABDOMEN: No abdominal aortic aneurysm. MUSCULOSKELETAL ABDOMEN PELVIS: No acute finding. OTHER: No significant abno rmality. IMPRESSION: No evidence of pulmonary embolism. No acute abnormality of the abdomen or pelvis. THIS IS AN ELECTRONICALLY VERIFIED FINAL REPORT 02/15/2025 8:24 PM - Electronically signed by Anne Merchant M.D. FT: FT Report ID: [id number] Reading Location: [id number] XR Chest 1Vw Portable Result Date: 01/30/2025 Narrative: PROCEDURE: XR CHEST 1VW PORTABLE DATE/TIME OF EXAM: 01/30/2025 6:40 AM INDICATION: R07.9: Chest pain, unspecified type COMPARISON: 12/24/2024 ADDITIONAL CLINICAL INFORMATION (if provided): Ordering Provider Reason For Exam: Findings: The heart is borderline enlarged. The aorta is normal in caliber. The lungs are now clear. There is no confluent infiltrate or effusion. There is no pneumothor ax. There is no mass or adenopathy.. . Impression: IMPRESSION: Borderline cardiac silhouette for age. No acute pulmonary infiltrate > Interpreting Provider: Leopoldo Martin MD on 01/30/2025 8:40 AM XR LUMB SPINE 3V Result Date: 01/29/2025 Narrative: [address] [address] Examination: XR LUMB SPINE 3V Exam time: 01/29/2025 5:12 PM Clinical history: Low back pain onset 3 days ago. History of sickle cell disease Comparison: Chest radiograph 01/18/2025. CT chest, abdomen, and pelvis 10/30/2024. Technique: 3 views of the lumbar spine. Findings: There are 5 nonrib- bearing lumbar-type vertebral bodies. There are chronic appearing superior and inferior endplate changes with an H shaped configuration in keeping with history of sickle cell. There is normal alignment of theanterior and posterior elements. Facet alignment is maintained. Intervertebral disc spaces are relatively preserved. No definite acute displaced fractures identified in the lumbar spine. There is curvilinear sclerosis within the left femoral head suggestive of osteonecrosis. Somewhat heterogeneous sclerosis of the pelvis and sacrum, similar to CT 10/30/2024. Cholecystectomy clips are noted. Impression: IMPRESSION: 1. No acute osseous abnormality. 2. Osseous stigmata of sickle cell disease. 3. Heterogeneous sclerosis of the pelvis and sacrum, possibly also related to osseous infarcts as a sequela of sickle cell disease, similar to CT 10/30/2024. Preliminary: Roland OlivaDO01/29/2025 6:15 PM The attending radiologist has reviewed the image(s) and agrees with the content of this report. Ordered By: NOE GROSS Interpreted By: Roland Oliva DO, 01/29/2025 6:11 PM Active Problems: Shortness of breath Diarrhea Abnormal chest x-ray Chest pain S/P splenectomy Sickle-cell crisis Cough PTSD (post-traumatic stress disorder) Resolved Problems: No resolved hospital problems. ASSESSMENT/PLAN Mr. Villalpando is a 29 year old male admitted with sickle cell pain crisis. Sickle cell crisis Uncontrolled pain - Agree with using home dose of pain medication; percocet 10/325 x3 every 8 hours PRN. - Continue folic acid 1 mg daily. - Transfuse to maintain hemoglobin >7.0. - Daily CBC while admitted - Daily CMP while admitted - Daily reticulocyte count while admitted. 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 - H&H remains stable. Wean IV narcotics to work towards discharge. 02/21/2025 -Labs remain pending -Dilaudid will be reduced in attempts to get patient discharged in next 24-48 hours 02/22/2025 -Labs remain pending Hematology will continue to follow peripherally Luciana Mahmood APRN, CHIEF PASSENGER [employer] STEWARD/STEWARDESS- Nurse Practitioner Division of Oncology [address] [place] [address], [address] [place] [address] , ext, 1, ext 1 Med Aide completed by using M*Modal Fluency Direct speaking software, therefore, transcriptionvariances may occur Cosigned by Justin Thompson MD PhD at 02/22/2025 10:38 AM CDT * Plan of Care - Sofia Nicholson RN - 02/22/2025 3:08 AM CDT Problem: Lack of Knowledge Goal: Ability to develop a pain control plan will improve Outcome: Progressing Flowsheets (Taken 02/22/2025 030) Ability to develop a pain control plan will improve: Explain causes of pain and how long pain can be expected to last Teach information regarding pain management Educate pain scale for assessing level of pain Teach notification to healthcare provider of episodes of pain Problem: Medication Goal: Satisfaction with pain management medication regimen will improve Outcome: Progressing Flowsheets (Taken 02/22/2025 030) Satisfaction with pain management medication regimen will improve: Assess satisfaction with pain management regimen Problem: Coping Goal: Ability to cope will improve Outcome: Progressing Flowsheets (Taken 02/22/2025 030) Ability to cope will Improve: Assess beliefs of pain Problem: Discharge Planning Goal: Understanding discharge needs will improve Outcome: Progressing Flowsheets (Taken 02/22/2025307) Understanding of discharge needs will improve: Discuss information regarding discharge instructions Goals: VSS, comfort, safety, remain free of falls, pain management * Plan of Care - Yue Frank RN - 02/21/2025 2:54 PM CDT CM Care Progression Expected Discharge Date and Time Expected Discharge Date Feb 22, 2025 Next steps with the transition plan: Patient continuing to have pain, IV Dilaudid at 2.0mg. Home noneeds via Medicaid car anticipated at discharge. This discharge plan has been discussed with patient and care team with agreement to the post-acute care plan and understanding of the expectations for discharge when medically ready. Yue Frank RN 02/21/25 1459 Discharge Planning Support System Friends/neighbors Anticipated discharge level of care Private residence Does the patient need discharge transport arranged? Yes Type of Transportation Medicaid transport Has discharge transport been arranged? No Post Acute Care Plan Post Acute Care Needs Identified No Home Care Services N/A OP Services N/A DME N/A Post Acute Care Facility N/A * Plan of Care - Erica Daniel LCSW - 02/21/2025 12:25 PM CDT SW continuing to follow for complex case. Case discussed in IDR. Per MD, pt requesting for transition to PO pain medication tomorrow and for dc on Wed. MD in agreement with plan. New Hospitalist will take over tomorrow, 02/22. Approx 12:00p-SW, nurse privacy manager and language assistant nurse privacy manager. Pt laying in bed and watching phone with volume on. Eye contact poor. Nurse privacy manager discussed concern with pt's behavior toward staff and [facility] pt and visitor code of conduct provided to pt. Pt argumentative with nurse privacy manager and denied disrespectful behavior to staff. Pt reported he requested to PCT to not put blood pressure cuff on RUE d/t avascular necrosis and PCTdid not respond well to this request. Nurse privacy manager verbalized understanding, noted documentation can be put in place and sign in room to alert all staff not to use RUE with blood pressure cuff, pt declined for documentation to be put in chart or for sign in room to alert staff of this. Pt noted heplans not to return to this facility. SW discussed plan noted in IDR for transition to PO pain med tomorrow with plan for dc home Fri. Ptstated he is aware and that he came up with the plan. SW inquired several times about safe dc planning and where pt planning to go at time of dc. Pt argumentative, stating he provided this FILM PAINTER with his address and does not understand need for personal questions such as where he will be going. SW discussed that this FILM PAINTER has not been given pt's address by pt this admission. Pt noted his address is what is on file in [facility] and when asked if pt lives there he stated who else would live there. Ptreported his address as [address] [facility] [facility] after some arguing. Pt stated he would inform SW if he needs assistance with transportation at time of dc. Conflicting information as earlier this stay (02/16), pt noted to this FILM PAINTER and that he resides at a downtown loft in [place]. Pt today noting he resides in [place]. SW to continue to follow and assist with needs. Continue to recommend no IV Benadryl for patient during admission unless medically necessary. Erica Daniel, FILM PAINTER [phone] 02/21/2025 3:36 PM * Incidental Note - Zeferino Gongora RN - 02/21/2025 12:17 PM CDT Responded to patient's room with Motorcycle Sales Associate and ANM. Attempted to speak with patient on reports of disrespectful and impolite behaviors towards staff. Patient denied but during conversation displayed these behaviors. Provided the [facility] patient and visitor code of conduct form to the patient. Expectation of service provided to the patient and expectations of conduct by the patient. Further violations of code of conduct patient was informed he may be asked to leave. Patient refused to make eye contact and refused any attempts of finding solutions to preventing hisaggravation. Patient stated he has necrosis in the right arm and should not have a blood pressure done in said arm. Offered to flag chart for no blood pressure in reported arm and signa-age above bed. Patient refused. knockout worker asked to discuss plan for discharge. Asked if he had a safe place for discharge. Patient continued to refuses to answer or make eye contact. When pressed for the information, became argumentative and refused to confirm if he has or has not a home or safe place for discharged. The patient eventually reported the address listed in [facility] is his personal home address that he lives at. * Plan of Care - Sofia Nicholson RN - 02/21/2025 5:46 AM CDT Problem: Lack of Knowledge Goal: Ability to develop a pain control plan will improve Outcome: Progressing Flowsheets (Taken 02/21/2025 0545) Ability to develop a pain control plan will improve: Explain causes of pain and how long pain can be expected to last Teach information regarding pain management Problem: Medication Goal: Satisfaction with pain management medication regimen will improve Outcome: Progressing Flowsheets (Taken 02/21/2025 0545) Satisfaction with pain management medication regimen will improve: Assess satisfaction with pain management regimen Goals: VSS, comfort, safety, pain management Summary: patient requiring dilaudid q3 with little to no pain relief through the night. * Plan of Care - Kateryna Romeo RN - 02/20/2025 4:38 PM CDT Goals: Clinical Goals for the Shift: safe environment free from falls. monitor vs, labs, and provide comfort. Problem: Lack of Knowledge Goal: Ability to [...] care needs will improve Outcome: Progressing Problem: Discharge Planning Goal: Understanding discharge needs will improve Outcome: Progressing Problem: Musculoskeletal Goal: Return mobility to safest level of function Outcome: Progressing Problem: Gastrointestinal Goal: Minimal or absence of nausea and vomiting Outcome: Progressing Goal: Maintains or returns to baseline bowel function Outcome: Progressing Goal: Maintains adequate nutritional intake Outcome: Progressing Problem: Respiratory Goal: Ability to maintain a clear airway will improve Outcome: Progressing Summary: Assessment of patient???s baseline is established at the beginning of the shift in flowsheets. Patient reassessed per order, unexpected findings and/or deviations from baseline are captured in flowsheets. Frequent safety checks and comfort rounds provided. Orders and/or nursing care completed as indicated. Patient monitored for response to interventions and treatments as documented in flowsheets. * Plan of Care - Deana Castrejon RN - 02/20/2025 5:32 AM CDT Goals: Clinical Goals for the Shift: safe environment free from falls. monitor vs, labs, and provide comfort. Summary: Problem: Lack of Knowledge Goal: Ability to develop a pain control plan will improve Outcome: Ongoing Flowsheets (Taken 02/20/2025 0524) Ability to develop a pain control plan will improve: Explain causes of pain and how long pain can be expected to last Teach information regarding pain management Educate pain scale for assessing level of pain Problem: Coping Goal: Ability to cope will improve Outcome: Ongoing Flowsheets (Taken 02/20/2025 05) Ability to cope will Improve: Encourage vebalization of feelings surrounding pain Provide emotional support Problem: Health Behavior Goal: Identification of resources available to assist in meeting health care needs will improve Outcome: Ongoing Flowsheets (Taken 02/20/2025 05) Identification of resources available to assist in meeting health care needs will improve: Collaborate with pain management Refer to pain support group * Plan of Care - Kateryna Romeo RN - 02/19/2025 5:31 PM CDT Goals: Clinical Goals for the Shift: VSS, comfort, safety, pain control Problem: Lack of Knowledge Goal: Ability to develop a pain control plan will improve Outcome: Progressing Problem: Medication Goal: Satisfaction with pain management medication regimen will improve Outcome: Progressing Problem: Sensory Goal: Ability to identify factors that increase pain levels will improve while working to decrease the patient's pain levels Outcome: Progressing Problem: Coping Goal: Ability to cope will improve Outcome: Progressing Summary: Assessment of patient???s baseline is established at the beginning of the shift in flowsheets. Patient reassessed per order, unexpected findings and/or deviations from baseline are captured in flowsheets. Frequent safety checks and comfort rounds provided. Orders and/or nursing care completed as indicated. Patient monitored for response to interventions and treatments as documented in flowsheets. * Plan of Care - Maximilian Patel RN - 02/19/2025 5:35 AM CDT Clinical Goals for the Shift: VSS, comfort, safety, pain control Summary: VSS, PRN IV pain medication x 3 at the time of this note, PRN antiemetic x 1, turns self and up ad ella, call light within reach, no acute events overnight, will continue to monitor Problem: Lack of Knowledge Goal: Ability to [...] care needs will improve Outcome: Progressing Problem: Discharge Planning Goal: Understanding discharge needs will improve Outcome: Progressing Problem: Skin/Tissue Integrity Goal: Skin integrity remains intact Outcome: Progressing Goal: Incisions, wounds, or drain sites healing without S/S of infection Outcome: Progressing Problem: Musculoskeletal Goal: Return mobility to safest level of function Outcome: Progressing Problem: Gastrointestinal Goal: Minimal or absence of nausea and vomiting Outcome: Progressing Goal: Maintains or returns to baseline bowel function Outcome: Progressing Goal: Maintains adequate nutritional intake Outcome: Progressing Problem: Hematologic Goal: Maintains hematologic stability Outcome: Progressing Problem: Cardiovascular Goal: Maintains optimal cardiac output and hemodynamic stability Outcome: Progressing Problem: Respiratory Goal: Ability to maintain a clear airway will improve Outcome: Progressing * Plan of Care - Yue Frank RN - 02/18/2025 1:53 PM CDT Care Progression Expected Discharge Date and Time Expected Discharge Date Feb 19, 2025 Next steps with the transition plan: Retic improving, Pain Control continued via IV Dilaudid. Home no needs via Medicaid car anticipated at discharge. This discharge plan has been discussed with patient and care team with agreement to the post-acute care plan and understanding of the expectations for discharge when medically ready. Yue Frank RN 02/18/25 [id number] Discharge Planning Support System Friends/neighbors Anticipated discharge level of care Private residence Does the patient need discharge transport arranged? Yes Type of Transportation Medicaid transport Has discharge transport been arranged? No Post Acute Care Plan Post Acute Care Needs Identified No Home Care Services N/A OP Services N/A DME N/A Post Acute Care Facility N/A * Plan of Care - Erica Daniel LCSW - 02/18/2025 1:05 PM CDT SW continuing to follow case. SW continuing to work to identify outpatient supports and barriers. SW noting outpt Hematology apt with Dr. Gonzalez on 04/11. Approx 3:00p-SW spoke with pt at bedside for f/u. BOUCHRA Cash at bedside for medication administration as contacted by pt requesting pain medication. Poor eye contact noted and mostly with 1-2 word answers. Pt noted no needs at this time. Stated he slept poorly overnight and stated he did not eat lunch today. Pt made aware of available SW over the weekend for needs. Per chart review in 11/2024 from OSH, pt noted to SW that he was working with child support case officer Vadim through [employer] for housing support. Approx 3:15p-V/m left for [place] [employer] ([phone]) requesting call back to inquire if pt is still involved with correctional case records supervisor Vadim for housing support. SW/CM to continue to follow and assist with needs. Continue to recommend no IV Benadryl for patient during admission unless medically necessary. Discussed with IDR team. Erica Dnaiel LCSW [phone] 02/18/2025 1:05 PM * Plan of Care - Shreya Salazar RN - 02/18/2025 8:45 AM CDT Problem: Lack of Knowledge Goal: Ability to [...] care needs will improve Outcome: Progressing Problem: Discharge Planning Goal: Understanding discharge needs will improve Outcome: Progressing Problem: Skin/Tissue Integrity Goal: Skin integrity remains intact Outcome: Progressing Goal: Incisions, wounds, or drain sites healing without S/S of infection Outcome: Progressing Problem: Musculoskeletal Goal: Return mobility to safest level of function Outcome: Progressing Problem: Gastrointestinal Goal: Minimal or absence of nausea and vomiting Outcome: Progressing Goal: Maintains or returns to baseline bowel function Outcome: Progressing Goal: Maintains adequate nutritional intake Outcome: Progressing Problem: Hematologic Goal: Maintains hematologic stability Outcome: Progressing Problem: Cardiovascular Goal: Maintains optimal cardiac output and hemodynamic stability Outcome: Progressing Goals: Clinical Goals for the Shift: VSS, comfort, safety, pain control * Plan of Care - Carole Ruffin RN - 02/18/2025 5:17 AM CDT Goals: Clinical Goals for the Shift: VSS, comfort, safety, pain control Summary: Problem: Lack of Knowledge Goal: Ability to [...] care needs will improve Outcome: Ongoing Problem: Discharge Planning Goal: Understanding discharge needs will improve Outcome: Ongoing Problem: Skin/Tissue Integrity Goal: Skin integrity remains intact Outcome: Ongoing Goal: Incisions, wounds, or drain sites healing without S/S of infection Outcome: Ongoing Problem: Musculoskeletal Goal: Return mobility to safest level of function Outcome: Ongoing * Plan of Care - Chitra Copeland RN - 02/17/2025 4:09 PM CDT Goals: Clinical Goals for the Shift: VSS, comfort, safety, pain control Summary: Assessment of patient's baseline established at beginning of the shift in flowsheets. Patient reassed per order, unexpected findings and/or deviations from baseline are captured in flowsheets. Frequent safety rounds and comfort checks provided. Orders and/or nursing care completed as indicated.Patient monitored for results and treatments as documented in flowsheets. Plan of care discussed with patient and/or call center representative, including as it relates to principle problem. Patient and/or call center representative verbalizes understanding. Will continue to monitor. Problem: Lack of Knowledge Goal: Ability to develop a pain control plan will improve Outcome: Progressing Flowsheets (Taken 02/17/202554 by Janeth Nicholson, RN) Ability to develop a pain control plan will improve: Educate pain scale for assessing level of pain Problem: Medication Goal: Satisfaction with pain management medication regimen will improve Outcome: Progressing Flowsheets (Taken 02/17/202554 by Janeth Nicholson, RN) Satisfaction with pain management medication regimen will improve: Assess satisfaction with pain management regimen Problem: Sensory Goal: Ability to identify factors that increase pain levels will improve while working to decrease the patient's pain levels Outcome: Progressing Problem: Coping Goal: Ability to cope will improve Outcome: Progressing Problem: Discharge Planning Goal: Understanding discharge needs will improve Outcome: Progressing Flowsheets (Taken 02/16/2025299 by Janeth Nicholson, RN) Understanding of discharge needs will improve: Identify discharge barriers Problem: Musculoskeletal Goal: Return mobility to safest level of function Outcome: Progressing Flowsheets (Taken 02/16/2025299 by Janeth Nicholson, RN) Return mobility to safest level of function: Assess patient stability and activity tolerance for standing, transferring and ambulating with or without assistive devices Problem: Gastrointestinal Goal: Minimal or absence of nausea and vomiting Outcome: Progressing Flowsheets (Taken 02/17/202554 by Janeth Nicholson, RN) Minimal or absence of nausea and vomiting: Assess gastrointestinal status Goal: Maintains or returns to baseline bowel function Outcome: Progressing Goal: Maintains adequate nutritional intake Outcome: Progressing Flowsheets (Taken 02/16/2025299 by Janeth Nicholson, RN) Maintains adequate nutritional intake: Assist with meals as needed Monitor percentage of each meal consumed Problem: Cardiovascular Goal: Maintains optimal cardiac output and hemodynamic stability Outcome: Progressing Flowsheets (Taken 02/17/202554 by Janeth Nicholson, RN) Maintain optimal cardiac output and hemodynamic Stability: Monitor vital signs, rhythm, and trends Problem: Hematologic Goal: Maintains hematologic stability Outcome: Progressing Flowsheets (Taken 02/17/202554 by Janeth Nicholson, RN) Maintains Hematologic Stability: Monitor labs * Provider Query - Ezequiel Carrizales MD - 02/17/2025 11:00 AM CDT Specify the significance of the abnormal BMI (body mass index) and document in the medical record and on the form below. ___Obesity, unspecified ___Other explanation of clinical findings, specify below Additional Provider Response: Obesity, counseled Clinical Indicators/Treatments: 29 y.o. male admitted 02/15/25 109.4 kg (241 lb 1.6 oz) 177.8 cm (5' 10) BMI 34.6 References: BMI definitions per www.NHLBI.nih.gov BMI Weight Status <18.5 Underweight 18.5 to 24.9 Normal/Healthy 25 to 29.9 Overweight 30 to 39.9 Obesity >40 Extreme Obesity (Morbid) From the ICD-10-CM Coding Guidelines, use of terms such as likely, suspected, possible, or probable(associated with a specific diagnosis that is being evaluated, monitored, or treated as if it exists) are acceptable and can be coded in the inpatient setting when documented at the time of discharge. This documentation will become part of the patient's medical record. Sincerely, Maggie Salomon Health Information Management * Provider Query - Ezequiel Carrizales MD - 02/17/2025 11:00 AM CDT Specify a diagnosis that accurately reflects the lab findings, and document in the medical record and on the form below. ___ Hypokalemia was monitored, evaluated, or treated ___ Abnormal laboratory finding, incidental or clinically insignificant ___ Other explanation of clinical findings, specify below Additional Provider Response: Hypokalemia, replaced Clinical Indicators/Treatments: 29 y.o. male admitted 02/15/25 Latest Reference Range & Units 02/15/25 15:53 02/16/25 09:50 Potassium, pl 3.3 - 4.9 mmol/L 3.0 (L) 3.8 (L): Data is abnormally low Treatment: klor con References: From the ICD-10-CM Coding Guidelines, use of terms such as likely, suspected, possible, or probable(associated with a specific diagnosis that is being evaluated, monitored, or treated as if it exists) are acceptable and can be coded in the inpatient setting when documented at the time of discharge. This documentation will become part of the patient???s medical record. Sincerely, Maggie Salomon RN BSN * Plan of Care - Erica Daniel LCSW - 02/17/2025 8:56 AM CDT SW continuing to follow. Complex case, readmission. Working to identify outpt pt supports and barriers. SW contacted [facility] transportation ([phone]) through [employer]. Informed pt has unlimited med car transportation rides on plan.Can accommodate pick pulling machine [place] with verbal approval when setting up trip. SW contacted ip.access services ([phone]). Pt has current insurance career center director: Tash Fisher ([phone]). SW contacted Tash to discuss case. Tash aware of pt's repeated hospitalizations and extended stays. Concern shared with possible housing insecurity and addition. Tash saw pt at bedside in October 2024 and last spoke to pt over the phone on 12/03/24. Stated in October that pt discussed having avascular necrosis and was planning to f/u with Orthopedics outpt for surgery. Since, pt has not been answering Tash's phone calls. Tash stated they feel stuck with what to do regarding pt's case. Tash noted insurance medical staff assistant has spoken with BOUCHRA Steen Coordinator with [facility] in 11/17 about pt's case. Concern noted about manipulation and pt dictating his care as well as addiction. Tash planning to contact pt today for follow up. VINNIE to coordinate with interdisciplinary team regarding pt's inpt care and assist with any outpt needs identified. UPDATE: Approx 9:30a-VINNIE spoke with pt at bedside along with BOUCHRA Buenrostro. Pt watching phone, poor eye contact with FILM PAINTER. Pt stated several times I don't want to talk. SW discussed above information regarding pt having transportation benefits and CM through [employer]. Pt stated he was already aware of this information. Also discussed [employer] Resource link program for assistance with housing, food, utilities and other services. Pt noted he does not need this information on community resources. SW attempted to provide written flyers and information on above insurance programs and pt declined for papers to be left in the room. Case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 [facility], [address] [place] [address]., [address] RDW CV 21.8(H) 11.1 - 14.9 % [place] SHETTY Comment:Testing performed by : [address] [address] RDW SD 72.1(H) 35.7 - 48.1 fL [place] SHETTY Comment:Testing performed by : [address] [address] NRBC abs 0.15(H) 0.00 - 0.01 K/cumm [facility] SHETTY Comment:Testing performed by : [address] [address] Blood 02/21/2025 2:14 PM CDT 02/21/2025 2:29 PM CDT us Deana HO LAB BLOOD ORDERABLES Final Re sult [facility] [address] [facility] [place] [address] * eGFR (02/20/2025 6:47 PM CDT) eGFR >90 >=60 mL/min/1. 73 [...] Inclusion of Race in Diagnosing Kidney Disease, DORIEN 2020). The CKD-EPI equation should not be used for patients with unstable renal function and has not been validated in children and those over 70. Current interpretive data was last reviewed 2021. Testing performed by: [address] [address] Blood 02/20/2025 6:47 PM CDT 02/20/2025 6:56 PM CDT Deana HO LAB BLOOD ORDERABLES Final Re sult Performing Organization Address [facility] Co de Phone Number [address] [place] [address] * (ABNORMAL) Lactate dehydrogenase (LD) (02/20/2025 6:47 PM CDT) Lactate dehydrogenase (LDH) 401(H) 100 - 250 Units/L Comment:Testing performed by : [address] [address] Blood 02/20/2025 6:47 PM CDT 02/20/2025 6:56 PM CDT Ezequiel Carrizales MD LAB BLOOD ORDERABL ES Final Result Performing Organization Address [facility] Co de Phone Number [address] [place] [place] [address] * (ABNORMAL) Comprehensive metabolic panel (02/20/2025 6:47 PM CDT) Sodium 139 135 - 145 mmol/L Comment:Testing performed by : [address] [address] Potassium, pl 3.5 3.3 - 4.9 mmol/L [facility] SHETTY Comment:Testing performed by : [address] [address] Chloride 103 97 - 110 mmol/L [facility] SHETTY Comment:Testing performed by : [address] [address] CO2 25 22 - 32 mmol/L [place] Comment:Testing performed by : [address] [address] Anion gap 11 2 - 15 mmol/L [place] Comment:Testing performed by : [address] [address] BUN 2(L) 6 - 25 mg/dL [facility] Comment:Testing performed by : [address] [address] Creatinine 0.44(L) 0.80 - 1.30 mg/dL [facility] Comment:Testing performed by : [address] [address] Glucose 99 70 - 199 mg/dL [facility] Comment: Interpretive Data Fasting glucose >/= 126 [...] was last revised 2022. Testing performed by: [address] [address] Calcium 9.0 8.5 - 10.3 mg/dL [facility] Comment:Testing performed by : [address] [address] Bilirubin, total 4.5(H) 0.1 - 1.2 mg/dL [facility] Comment:Testing performed by : [address] [address] Protein, pl 7.4 6.5 - 8.5 g/dL [facility] Comment:Testing performed by : [address] [address] Albumin 4.2 3.5 - 5.0 g/dL [place] Comment:Testing performed by : [address] [address] Alk phos 286(H) 40 - 130 Units/L [facility] SHETTY Comment:Testing performed by : [facility], [address] [place] [address]., [address] ALT 32 7 - 55 Units/L [facility] SHETTY Comment:Testing performed by : [address] [address] AST 49 10 - 50 Units/L [place] SHETTY Comment:Testing performed by : [address] [address] Blood 02/20/2025 6:47 PM CDT 02/20/2025 6:56 PM CDT us Deana HO LAB BLOOD ORDERABLES Final Re sult [facility] [address] [facility] [place] [address] * eGFR (02/18/2025 12:20 PM CDT) eGFR >90 >=60 mL/min/1. 73 [...] was last reviewed 2021. Testing performed by: [address] [address] Blood 02/18/2025 12:2 0 PM CDT 02/18/2025 12:37 PM CDT us Deana HO LAB BLOOD ORDERABLES Final Re sult [facility] [address] [facility] [place] [address] * (ABNORMAL) Differential, auto (02/18/2025 12:20 PM CDT) Neutrophil abs 5.20 1.50 - 6.50 K/cumm Comment:Testing performed by : [address] [address] Imm gran abs 0.06 0.00 - 0.10 K/cumm [facility] Comment:Testing performed by : [address] [address] Lymphocyte abs 3.74(H) 0.80 - 3.30 K/cumm [place] Comment:Testing performed by : [address] [address] Monocyte abs 1.06(H) 0.20 - 0.80 K/cumm [place] Comment:Testing performed by : [address] [address] Eosinophil abs 0.41 0.00 - 0.50 K/cumm [place] Comment:Testing performed by : [address] [address] Basophil abs 0.06 0.00 - 0.10 K/cumm [facility] Comment:Testing performed by : [address] [address] Neutrophil pct 49.3 % [facility] Comment: Interpretive Data Percent cell count reference ranges are not reported, since discordance with absolute values may lead to misinterpretation of CBC data. Current Interpretive Data was last revised on 2017. Testing performed by: [address] [address] Imm gran pct 0.6 % [facility] Comment: Interpretive Data Percent cell count reference ranges are not reported, since discordance with absolute values may lead to misinterpretation of CBC data. Current Interpretive Data was last revised on 2017. Testing performed by: [address] [address] Lymphocyte pct 35.5 % [facility] Comment: Interpretive Data Percent cell count reference ranges are not reported, since discordance with absolute values may lead to misinterpretation of CBC data. Current Interpretive Data was last revised on 2017. Testing performed by: [address] [address] Monocyte pct 10.1 % [facility] Comment: Interpretive Data Percent cell count reference ranges are not reported, since discordance with absolute values may lead to misinterpretation of CBC data. Current Interpretive Data was last revised on 2017. Testing performed by: [address] [address] Eosinophil pct 3.9 % [facility] Comment: Interpretive Data Percent cell count reference ranges are not reported, since discordance with absolute values may lead to misinterpretation of CBC data. Current Interpretive Data was last revised on 2017. Testing performed by: [address] [address] Basophil pct 0.6 % [facility] Comment: Interpretive Data Percent cell count reference ranges are not reported, since discordance with absolute values may lead to misinterpretation of CBC data. Current Interpretive Data was last revised on 2017. Testing performed by: [address] [address] Blood 02/18/2025 12:2 0 PM CDT 02/18/2025 12:37 PM CDT us Deana HO LAB BLOOD ORDERABLES Final Re sult [facility] [address] [facility] [place] [address] * (ABNORMAL) Lactate dehydrogenase (LD) (02/18/2025 12:20 PM CDT) Lactate dehydrogenase (LDH) 443(H) 100 - 250 Units/L Comment:Testing performed by : [address] [address] Blood 02/18/2025 12:2 0 PM CDT 02/18/2025 12:37 PM CDT Ezequiel Carrizales MD LAB BLOOD ORDERABL ES Final Result [facility] [place] [address] * (ABNORMAL) Comprehensive metabolic panel (02/18/2025 12:20 PM CDT) Sodium 138 135 - 145 mmol/L Comment:Testing performed by : [address] [address] Potassium, pl 3.3 3.3 - 4.9 mmol/L [facility] Comment:Testing performed by : [address] [address] Chloride 103 97 - 110 mmol/L [place] Comment:Testing performed by : [address] [address] CO2 24 22 - 32 mmol/L [place] Comment:Testing performed by : [address] [address] Anion gap 11 2 - 15 mmol/L [facility] Comment:Testing performed by : [address] [address] BUN <2(L) 6 - 25 mg/dL [place] Comment:Testing performed by : [address] [address] Creatinine 0.40(L) 0.80 - 1.30 mg/dL [facility] Comment:Testing performed by : [address] [address] Glucose 112 70 - 199 mg/dL [place] Comment: Interpretive [...] was last revised 2022. Testing performed by: [address] [address] Calcium 8.6 8.5 - 10.3 mg/dL [place] Comment:Testing performed by : [address] [address] Bilirubin, total 4.9(H) 0.1 - 1.2 mg/dL [facility] Comment:Testing performed by : [address] [address] Protein, pl 6.9 6.5 - 8.5 g/dL [place] Comment:Testing performed by : [address] [address] Albumin 4.0 3.5 - 5.0 g/dL [place] Comment:Testing performed by : [address] [address] Alk phos 274(H) 40 - 130 Units/L [place] Comment:Testing performed by : [address] [address] ALT 26 7 - 55 Units/L [place] Comment:Testing performed by : [address] [address] AST 39 10 - 50 Units/L [facility] Comment:Testing performed by : [address] [address] Blood 02/18/2025 12:2 0 PM CDT 02/18/2025 12:37 PM CDT us Deana HO LAB BLOOD ORDERABLES Final Re sult [facility] SHETTY [address] [facility] Department of Laboratories [place], [place] [id number] * (ABNORMAL) Reticulocyte Count (02/18/2025 12:20 PM CDT) Retics, absolute 457(H) 20 - 87 K/cumm Comment:Testing performed by : [address] [address] Retics 18.3(H) 0.4 - 2.9 % [facility] SHETTY Comment:Testing performed by : [address] [address] Reticulocyte Hgb 35.1 30.5 - 38.0 pg [place] SHETTY Comment:Testing performed by : [address] [address] Blood 02/18/2025 12:2 0 PM CDT 02/18/2025 12:37 PM CDT us Kassy George CERTIFIED TECHNICIAN LAB BLOOD ORDERABLES Final Re sult [facility] SHETT[facility] [place] [address] * (ABNORMAL) CBC with auto differential (02/18/2025 12:20 PM CDT) Pathologist [facility] WBC 10.53(H) 3.80 - 9.90 K/cumm Comment:Testing performed by : [address] [address] Hgb 7.9(L) 13.0 - 17.5 g/dL [place] SHETTY Comment:Testing performed by : [address] [address] Hct 23.2(L) 38.9 - 50.3 % [facility] SHETTY Comment:Testing performed by : [address] [address] Plt 297 150 - 400 K/cumm [place] SHETTY Comment:Testing performed by : [address] [address] MPV 9.9 9.1 - 12.3 fL [place] SHETT[facility] Comment:Testing performed by : [address] [address] RBC 2.50(L) 4.30 - 5.80 M/cumm [facility] SHETTY Comment:Testing performed by : [address] [address] MCV 92.8 81.3 - 96.4 fL [place] Comment:Testing performed by : [address], [address] MCH 31.6 27.1 - 33.3 pg [place] Comment:Testing performed by : [address] [address] MCHC 34.1 32.3 - 35.7 g/dL [place] Comment:Testing performed by : [address], [address] RDW CV 23.6(H) 11.1 - 14.9 % [facility] Comment:Testing performed by : [address], [address] RDW SD 77.2(H) 35.7 - 48.1 fL [place] Comment:Testing performed by : [address], [address] NRBC abs 0.21(H) 0.00 - 0.01 K/cumm [facility] Comment:Testing performed by : [address], [address] Blood 02/18/2025 12:2 0 PM CDT 02/18/2025 12:37 PM CDT us Deana HO LAB BLOOD ORDERABLES Final Re sult [facility] [address] [facility] [place] [address] * eGFR (02/17/2025 1:04 PM CDT) eGFR >90 >=60 mL/min/1. 73 [...] was last reviewed 2021. Testing performed by: [address] [address] Blood 02/17/2025 1:04 PM CDT 02/17/2025 1:07 PM CDT us Deana HO LAB BLOOD ORDERABLES Final Re sult [place] [id number] [facility] [place] [address] * (ABNORMAL) Differential, auto (02/17/2025 1:04 PM CDT) Neutrophil abs 3.70 1.50 - 6.50 K/cumm Comment:Testing performed by : [address] [address] Imm gran abs 0.08 0.00 - 0.10 K/cumm [place] Comment:Testing performed by : [address] [address] Lymphocyte abs 3.71(H) 0.80 - 3.30 K/cumm [place] Comment:Testing performed by : [address] [address] Monocyte abs 1.31(H) 0.20 - 0.80 K/cumm [place] Comment:Testing performed by : [address] [address] Eosinophil abs 0.43 0.00 - 0.50 K/cumm [place] Comment:Testing performed by : [address] [address] Basophil abs 0.07 0.00 - 0.10 K/cumm [place] Comment:Testing performed by : [address] [address] Neutrophil pct 39.7 % [facility] Comment: Interpretive Data Percent cell count reference ranges are not reported, since discordance with absolute values may lead to misinterpretation of CBC data. Current Interpretive Data was last revised on 2017. Testing performed by: [address] [address] Imm gran pct 0.9 % [facility] Comment: Interpretive Data Percent cell count reference ranges are not reported, since discordance with absolute values may lead to misinterpretation of CBC data. Current Interpretive Data was last revised on 2017. Testing performed by: [address] [address] Lymphocyte pct 39.9 % [facility] Comment: Interpretive Data Percent cell count reference ranges are not reported, since discordance with absolute values may lead to misinterpretation of CBC data. Current Interpretive Data was last revised on 2017. Testing performed by: [address] [address] Monocyte pct 14.1 % [facility] Comment: Interpretive Data Percent cell count reference ranges are not reported, since discordance with absolute values may lead to misinterpretation of CBC data. Current Interpretive Data was last revised on 2017. Testing performed by: [address] [address] Eosinophil pct 4.6 % [facility] Comment: Interpretive Data Percent cell count reference ranges are not reported, since discordance with absolute values may lead to misinterpretation of CBC data. Current Interpretive Data was last revised on 2017. Testing performed by: [address] [address] Basophil pct 0.8 % [facility] Comment: Interpretive Data Percent cell count reference ranges are not reported, since discordance with absolute values may lead to misinterpretation of CBC data. Current Interpretive Data was last revised on 2017. Testing performed by: [address] [address] Blood 02/17/2025 1:04 PM CDT 02/17/2025 1:07 PM CDT us Deana HO LAB BLOOD ORDERABLES Final Re sult Performing Organization Address [facility] Co de Phone Number [address] [address] * Thyroid Function Grant (02/17/2025 1:04 PM CDT) Pathologist [facility] TSH 3.82 0.30 - 4.20 mcIUnit/mL Comment:Testing performed by : [address] [address] Blood 02/17/2025 1:04 PM CDT 02/17/2025 1:07 PM CDT us Ezequiel Carrizales MD LAB BLOOD ORDERABL ES Final Result Performing Organization Address [facility] Co de Phone Number [address] [address] * (ABNORMAL) Comprehensive metabolic panel (02/17/2025 1:04 PM CDT) [facility] Sodium 139 135 - 145 mmol/L Comment:Testing performed by : [address] [address] Potassium, pl 3.8 3.3 - 4.9 mmol/L [place] Comment:Testing performed by : [address] [address] Chloride 104 97 - 110 mmol/L [place] Comment:Testing performed by : [address] [address] CO2 24 22 - 32 mmol/L [place] Comment:Testing performed by : [address] [address] Anion gap 11 2 - 15 mmol/L [place] Comment:Testing performed by : [address] [address] BUN <2(L) 6 - 25 mg/dL [place] Comment:Testing performed by : [address] [address] Creatinine 0.50(L) 0.80 - 1.30 mg/dL [place] Comment:Testing performed by : [address] [address] Glucose 125 70 - 199 mg/dL [facility] [...] was last revised 2022. Testing performed by: [address] [address] Calcium 8.2(L) 8.5 - 10.3 mg/dL [place] Comment:Testing performed by : [address] [address] Bilirubin, total 4.7(H) 0.1 - 1.2 mg/dL [facility] Comment:Testing performed by : [address] [address] Protein, pl 7.0 6.5 - 8.5 g/dL [facility] Comment:Testing performed by : [address] [address] Albumin 4.1 3.5 - 5.0 g/dL [facility] Comment:Testing performed by : [address] [address] Alk phos 261(H) 40 - 130 Units/L [facility] Comment:Testing performed by : [address] [address] ALT 31 7 - 55 Units/L [place] Comment:Testing performed by : [address] [address] AST 52(H) 10 - 50 Units/L [facility] Comment:Testing performed by : [address] [address] Blood 02/17/2025 1:04 PM CDT 02/17/2025 1:07 PM CDT Deana Crandall PA LAB BLOOD ORDERABLES Final Re sult Performing Organization Address [facility] Co de Phone Number [address] [address] * (ABNORMAL) Reticulocyte Count (02/17/2025 1:04 PM CDT) Retics, absolute 473(H) 20 - 87 K/cumm Comment: Retic verified by dilution. Testing performed by: [address] [address] Retics 18.9(H) 0.4 - 2.9 % [place] Comment: Retic verified by dilution. Testing performed by: [address] [address] Reticulocyte Hgb 31.5 30.5 - 38.0 pg [place] Comment:Testing performed by : [address] [address] Blood 02/17/2025 1:04 PM CDT 02/17/2025 1:07 PM CDT Kassy George CERTIFIED TECHNICIAN LAB BLOOD ORDERABLES Final Re sult Performing Organization Address [facility] Co de Phone Number [address] [address] * (ABNORMAL) CBC with auto differential (02/17/2025 1:04 PM CDT) Pathologist [facility] WBC 9.30 3.80 - 9.90 K/cumm Comment:Testing performed by : [address] [address] Hgb 7.8(L) 13.0 - 17.5 g/dL [place] Comment:Testing performed by : [address] [address] Hct 22.7(L) 38.9 - 50.3 % [place] Comment:Testing performed by : [address] [address] Plt 294 150 - 400 K/cumm [place] Comment:Testing performed by : [address] [address] MPV 10.1 9.1 - 12.3 fL [place] Comment:Testing performed by : [address] [address] RBC 2.50(L) 4.30 - 5.80 M/cumm [place] Comment:Testing performed by : [address] [address] MCV 90.8 81.3 - 96.4 fL [place] Comment:Testing performed by : [address] [address] MCH 31.2 27.1 - 33.3 pg [place] Comment:Testing performed by : [address] [address] MCHC 34.4 32.3 - 35.7 g/dL [place] Comment:Testing performed by : [address] [address] RDW CV 23.0(H) 11.1 - 14.9 % [place] Comment:Testing performed by : [address] [address] RDW SD 73.4(H) 35.7 - 48.1 fL [place] Comment:Testing performed by : [address] [address] NRBC abs 0.19(H) 0.00 - 0.01 K/cumm [place] Comment:Testing performed by : [address] [address] Morphologic Screen Results confirmed by manual morphology review. [place] Comment:Testing performed by : [address] [address] Blood 02/17/2025 1:04 PM CDT 02/17/2025 1:07 PM CDT Deana Crandall PA LAB BLOOD ORDERABLES Final Re sult Performing Organization Address [facility] Co de Phone Number [address] [place] [address] * (ABNORMAL) Reticulocyte Count (02/16/2025 10:46 AM CDT) Retics, absolute 278(H) 20 - 87 K/cumm Comment:Testing performed by : [address] [address] Retics 19.0(H) 0.4 - 2.9 % [place] Comment:Testing performed by : [address] [address] Reticulocyte Hgb 29.4(L) 30.5 - 38.0 pg [place] Comment:Testing performed by : [address] [address] Blood 02/16/2025 10:4 6 AM CDT 02/16/2025 10:56 AM CDT Kassy George CERTIFIED TECHNICIAN LAB BLOOD ORDERABLES Final Re sult Performing Organization Address [facility] de Phone Number [address] [place] [address] * (ABNORMAL) Differential, auto (02/16/2025 10:46 AM CDT) Pathologist [facility] Neutrophil abs 4.16 1.50 - 6.50 K/cumm Comment:Testing performed by : [address] [address] Imm gran abs 0.05 0.00 - 0.10 K/cumm [place] Comment:Testing performed by : [address] [address] Lymphocyte abs 4.15(H) 0.80 - 3.30 K/cumm [place] Comment:Testing performed by : [address] [address] Monocyte abs 1.13(H) 0.20 - 0.80 K/cumm [facility] Comment:Testing performed by : [address] [address] Eosinophil abs 0.41 0.00 - 0.50 K/cumm [facility] Comment:Testing performed by : [address] [address] Basophil abs 0.07 0.00 - 0.10 K/cumm [facility] Comment:Testing performed by : [address] [address] Neutrophil pct 41.8 % [facility] Comment: Interpretive Data Percent cell count reference ranges are not reported, since discordance with absolute values may lead to misinterpretation of CBC data. Current Interpretive Data was last revised on 2017. Testing performed by: [address] [address] Imm gran pct 0.5 % [facility] Comment: Interpretive Data Percent cell count reference ranges are not reported, since discordance with absolute values may lead to misinterpretation of CBC data. Current Interpretive Data was last revised on 2017. Testing performed by: [address] [address] Lymphocyte pct 41.6 % [facility] Comment: Interpretive Data Percent cell count reference ranges are not reported, since discordance with absolute values may lead to misinterpretation of CBC data. Current Interpretive Data was last revised on 2017. Testing performed by: [address] [address] Monocyte pct 11.3 % [facility] Comment: Interpretive Data Percent cell count reference ranges are not reported, since discordance with absolute values may lead to misinterpretation of CBC data. Current Interpretive Data was last revised on 2017. Testing performed by: [address] [address] Eosinophil pct 4.1 % [facility] Comment: Interpretive Data Percent cell count reference ranges are not reported, since discordance with absolute values may lead to misinterpretation of CBC data. Current Interpretive Data was last revised on 2017. Testing performed by: [address] [place] [address] Basophil pct 0.7 % [facility] Comment: Interpretive Data Percent cell count reference ranges are not reported, since discordance with absolute values may lead to misinterpretation of CBC data. Current Interpretive Data was last revised on 2017. Testing performed by: [address] [address] Blood 02/16/2025 10:4 6 AM CDT 02/16/2025 10:56 AM CDT us Ezequiel Carrizales MD LAB BLOOD ORDERABL ES Final Result [facility] [address] [facility] [place] [address] * (ABNORMAL) CBC with auto differential (02/16/2025 10:46 AM CDT) WBC 9.97(H) 3.80 - 9.90 K/cumm Comment:Testing performed by : [address] [address] Hgb 7.8(L) 13.0 - 17.5 g/dL [facility] Comment:Testing performed by : [address] [address] Hct 23.0(L) 38.9 - 50.3 % [facility] Comment:Testing performed by : [address] [address] Plt 280 150 - 400 K/cumm [facility] Comment:Testing performed by : [address] [address] MPV 10.1 9.1 - 12.3 fL [facility] SHETTY Comment:Testing performed by : [address] [address] RBC 2.50(L) 4.30 - 5.80 M/cumm [facility] SHETTY Comment:Testing performed by : [address] [address] MCV 92.0 81.3 - 96.4 fL [facility] SHETTY Comment:Testing performed by : [address] [address] MCH 31.2 27.1 - 33.3 pg [facility] SHETTY Comment:Testing performed by : [address] [address] MCHC 33.9 32.3 - 35.7 g/dL [facility] SHETTY Comment:Testing performed by : [address] [address] RDW CV 22.7(H) 11.1 - 14.9 % [facility] Comment:Testing performed by : [address] [address] RDW SD 74.2(H) 35.7 - 48.1 fL [facility] Comment:Testing performed by : [address] [address] NRBC abs 0.13(H) 0.00 - 0.01 K/cumm [facility] Comment:Testing performed by : [address] [address] Morphologic Screen Results confirmed by manual morphology review. [facility] Comment:Testing performed by : [address] [address] Blood 02/16/2025 10:4 6 AM CDT 02/16/2025 10:56 AM CDT Ezequiel Carrizales MD LAB BLOOD ORDERABL ES Edited Result - Final [facility] [address] [facility] Department of Laboratories [place], [place] [id number] * Blood culture Blood (02/16/2025 10:02 AM CDT) Report Final Report: No growth Comment:Testing performed by : [facility], [address] [facility] [place]., [address] Blood 02/16/2025 10:0 2 AM CDT 02/16/2025 2:03 PM CDT Narrative [facility] SHETTY - 02/20/2025 4:00 PM CDT From a different site than #1. [...] performance characteristics have been verified by the [facility] Microbiology Laboratory. For questions about this culture, contact the Microbiology Laboratory at [phone]. Interpretive data was last revised on 24. us Deana HO LAB MICROBIOLOGY - GENERAL OR DERABLES Final Result Performing Organization Address City/[facility]/ZIP Co de Phone Number [address] [place] [address] * (ABNORMAL) Lactate dehydrogenase (LD) (02/16/2025 9:50 AM CDT) [facility] Lactate dehydrogenase (LDH) 464(H) 100 - 250 Units/L Comment: Hemolyzed; result may be falsely elevated Testing performed by: [facility], [address] [place] [address]., [address] Blood 02/16/2025 9:50 AM CDT 02/16/2025 9:55 AM CDT Ezequiel Carrizales MD LAB BLOOD ORDERABL ES Final Result Performing Organization Address City/[facility]/ZIP Co de Phone Number [address] [place] [address] * eGFR (02/16/2025 9:50 AM CDT) eGFR >90 >=60 mL/min/1. [...] was last reviewed 2021. Testing performed by: [address] [address] Blood 02/16/2025 9:50 AM CDT 02/16/2025 9:55 AM CDT us Deana HO LAB BLOOD ORDERABLES Final Re sult [facility] [address] [facility] [place] [address] * (ABNORMAL) Comprehensive metabolic panel (02/16/2025 9:50 AM CDT) Sodium 138 135 - 145 mmol/L Comment:Testing performed by : [address] [address] Potassium, pl 3.8 3.3 - 4.9 mmol/L [facility] Comment: Hemolyzed; Potassium value may be falsely elevated by as much as 1.0 mmol/L. Suggest redraw and reanalysis. Testing performed by: [address] [address] Chloride 104 97 - 110 mmol/L [facility] Comment:Testing performed by : [address], [place]., [address] CO2 23 22 - 32 mmol/L [facility] Comment:Testing performed by : [address], [place]., [address] Anion gap 11 2 - 15 mmol/L [facility] Comment:Testing performed by : [address], [place]., [address] BUN 2(L) 6 - 25 mg/dL [facility] Comment:Testing performed by : [address], [place]., [address] Creatinine 0.52(L) 0.80 - 1.30 mg/dL [facility] Comment:Testing performed by : [address], [place]., [address] Glucose 104 70 - 199 mg/dL [facility] Comment: Interpretive Data Fasting glucose >/= 126 [...] was last revised 2022. Testing performed by: [address] [address] Calcium 8.5 8.5 - 10.3 mg/dL [facility] Comment:Testing performed by : [address] [address] Bilirubin, total 5.6(H) 0.1 - 1.2 mg/dL [facility] Comment:Testing performed by : [address], [place]., [address] Protein, pl 6.7 6.5 - 8.5 g/dL [facility] Comment:Testing performed by : [address] [address] Albumin 3.9 3.5 - 5.0 g/dL [facility] Comment:Testing performed by : [address] [address] Alk phos 260(H) 40 - 130 Units/L [facility] Comment:Testing performed by : [address] [address] ALT 40 7 - 55 Units/L [facility] Comment:Testing performed by : [address] [address] AST 61(H) 10 - 50 Units/L [facility] Comment: Hemolyzed; result may be falsely elevated Testing performed by: [address] [address] Blood 02/16/2025 9:50 AM CDT 02/16/2025 9:55 AM CDT Deana HO LAB BLOOD ORDERABLES Final Re sult [facility] [address] [facility] [place] [address] * Blood culture Blood (02/16/2025 9:50 AM CDT) Report Final Report: No growth Comment:Testing performed by : [facility], [address] [place]., [address] Blood 02/16/2025 9:50 AM CDT 02/16/2025 2:06 PM CDT Narrative [facility] - 02/20/2025 4:00 PM CDT Collection->Peripheral 1FA BLOOD BOTTLE 1. Blood cultures are incubated for 4 [...] performance characteristics have been verified by the [facility] Microbiology Laboratory. For questions about this culture, contact the Microbiology Laboratory at [phone]. Interpretive data was last revised on 24. us Deana HO LAB MICROBIOLOGY - GENERAL OR DERABLES Final Result [facility] [address] [facility] [place] [address] * CT Chest PE (CTA) Abdomen Pelvis W Contrast (02/15/2025 8:12 PM CDT) Anatomical Region Laterality Modality Body N/A Computed Tomogra phy 02/15/2025 8:20 PM CDT Narrative 02/15/2025 8:24 PM CDT EXAM DESCRIPTION: CT CHEST PE (CTA) ABDOMEN PELVIS W CONTRAST REASON FOR STUDY: chest pain/sickle cell/diarrhea/nausea chest pain/sickle cell/diarrhea/nausea. Patient refused lowering jeans for scans. TECHNIQUE: CT angiogram of the chest with routine abdomen and pelvis performed with intravenous and without oral contrast using helical scanning technique with dynamic intravenous contrast injection. Reconstructed coronal and sagittal MPR images reviewed. All images stored on PACS. 3D MIP images of the chest rendered on scanning unit and reviewed at time of interpretation. Automated exposure control was used as a dose optimization technique for this examination. CONTRAST TYPE/DOSE: 100mL of IOVERSOL 350 MG IODINE/ML INTRAVENOUS SYRINGE injected via intravenous COMPARISON: CT abdomen pelvis 01/08/2025 FINDINGS: CHEST CHEST VASCULATURE: No acute pulmonary thromboembolism. LUNGS: Bilateral ground-glass opacities with smooth interlobular septal thickening, greatest in the lower lobes may represent edema. No suspicious pulmonary nodule. No focal consolidation. PLEURA: No effusion. No pneumothorax. MEDIASTINUM/VICTORIANO: No identified masses or abnormal nodes. HEART: Heart size is normal with no pericardial effusion. AXILLA: No adenopathy. CHEST WALL: No masses. No subcutaneous air. HARDWARE/LINES/TUBES: None. MUSCULOSKELETAL CHEST: No significant abnormality. ABDOMEN/PELVIS LIVER: Normal size. No identified cystic or solid masses. GALLBLADDER: Surgically absent BILE DUCTS: No intrahepatic or extrahepatic ductal dilatation. SPLEEN: Auto splenectomy PANCREAS: No identified cystic or solid masses. No significant calcifications. No adjacent inflammation or peripancreatic fluid collections. Pancreatic duct not dilated. ADRENALS: Normal. KIDNEYS/URINARY TRACT: No identified significant cystic or solid masses. No visualized stones. No hydronephrosis or hydroureter. Symmetric enhancement. Urinary bladder is unremarkable. GI: No dilated bowel loops. No obvious wall thickening. Normal appendix. No significant diverticular disease. PERITONEUM: No ascites or free air. RETROPERITONEUM: No mass or adenopathy. REPRODUCTIVE: No significant abnormality. VASCULATURE ABDOMEN: No abdominal aortic aneurysm. MUSCULOSKELETAL ABDOMEN PELVIS: No acute finding. OTHER: No significant abnormality. IMPRESSION: No evidence of pulmonary embolism. No acute abnormality of the abdomen or pelvis. THIS IS AN ELECTRONICALLY VERIFIED FINAL REPORT 02/15/2025 8:24 PM - Electronically signed by Anne Merchant M.D. FT: FT Report ID: [id number] Reading Location: [place] [address] Procedure Note Anne Hernandes MD - 02/15/2025 EXAM DESCRIPTION: CT CHEST PE (CTA) ABDOMEN PELVIS W CONTRAST REASON FOR STUDY: chest pain/sickle cell/diarrhea/nausea chest pain/sickle cell/diarrhea/nausea. Patient refused lowering jeansfor scans. TECHNIQUE: CT angiogram of the chest with routine abdomen and pelvisperformed with intravenous and without oral contrast using helical scanningtechnique with dynamic intravenous contrast injection. Reconstructed coronal and sagittal MPR images reviewed. All images stored on PACS. 3D MIP images ofthe chest rendered on scanning unit and reviewed at time of interpretation. Automated exposure control was used as a dose optimization technique forthis examination. CONTRAST TYPE/DOSE: 100mL of IOVERSOL 350 MG IODINE/ML INTRAVENOUS SYRINGE injected via intravenous COMPARISON: CT abdomen pelvis 01/08/2025 FINDINGS: CHEST CHEST VASCULATURE: No acute pulmonary thromboembolism. LUNGS: Bilateral ground-glass opacities with smooth interlobular septal thickening, greatest in the lower lobes may represent edema. Nosuspicious pulmonary nodule. No focal consolidation. PLEURA: No effusion. No pneumothorax. MEDIASTINUM/VICTORIANO: No identified masses or abnormal nodes. HEART: Heart size is normal with no pericardial effusion. AXILLA: No adenopathy. CHEST WALL: No masses. No subcutaneous air. HARDWARE/LINES/TUBES: None. MUSCULOSKELETAL CHEST: No significant abnormality. ABDOMEN/PELVIS LIVER: Normal size. No identified cystic or solid masses. GALLBLADDER: Surgically absent BILE DUCTS: No intrahepatic or extrahepatic ductal dilatation. SPLEEN: Auto splenectomy PANCREAS: No identified cystic or solid masses. No significant calcifications. No adjacent inflammation or peripancreatic fluidcollections. Pancreatic duct not dilated. ADRENALS: Normal. KIDNEYS/URINARY TRACT: No identified significant cystic or solid masses.No visualized stones. No hydronephrosis or hydroureter. Symmetricenhancement. Urinary bladder is unremarkable. GI: No dilated bowel loops. No obvious wall thickening. Normal appendix.No significant diverticular disease. PERITONEUM: No ascites or free air. RETROPERITONEUM: No mass or adenopathy. REPRODUCTIVE: No significant abnormality. VASCULATURE ABDOMEN: No abdominal aortic aneurysm. MUSCULOSKELETAL ABDOMEN PELVIS: No acute finding. OTHER: No significant abnormality. IMPRESSION: No evidence of pulmonary embolism. No acute abnormality of the abdomen or pelvis. THIS IS AN ELECTRONICALLY VERIFIED FINAL REPORT 02/15/2025 8:24 PM - Electronically signed by Anne Merchant M.D. FT: FT Report ID: [id number] Reading Location: [place] [address] Deana HO [facility] CT PROCEDURES Final Resul t * eGFR (02/15/2025 3:53 PM CDT) eGFR >90 >=60 mL/min/1. 73 [...] was last reviewed 2021. Testing performed by: [address] [address] Blood 02/15/2025 3:53 PM CDT 02/15/2025 4:01 PM CDT Ezequiel Carrizales MD LAB BLOOD ORDERABL ES Final Result [place] [id number] [facility] [place] [address] * (ABNORMAL) Comprehensive metabolic panel (02/15/2025 3:53 PM CDT) Sodium 142 135 - 145 mmol/L Comment:Testing performed by : [address] [address] Potassium, pl 3.0(L) 3.3 - 4.9 mmol/L [facility] Comment:Testing performed by : [address] [address] Chloride 106 97 - 110 mmol/L [facility] Comment:Testing performed by : [address] [address] CO2 24 22 - 32 mmol/L [facility] Comment:Testing performed by : [address] [address] Anion gap 12 2 - 15 mmol/L [facility] Comment:Testing performed by : [address] [address] BUN 3(L) 6 - 25 mg/dL [facility] Comment:Testing performed by : [address] [address] Creatinine 0.60(L) 0.80 - 1.30 mg/dL [facility] Comment:Testing performed by : [address] [address] Glucose 121 70 - 199 mg/dL [facility] Comment: Interpretive [...] was last revised 2022. Testing performed by: [address] [address] Calcium 8.2(L) 8.5 - 10.3 mg/dL [facility] Comment:Testing performed by : [address] [address] Bilirubin, total 6.0(H) 0.1 - 1.2 mg/dL [facility] Comment:Testing performed by : [address] [address] Protein, pl 6.7 6.5 - 8.5 g/dL [facility] Comment:Testing performed by : [address] [address] Albumin 3.8 3.5 - 5.0 g/dL [facility] Comment:Testing performed by : [address] [address] Alk phos 261(H) 40 - 130 Units/L [facility] Comment:Testing performed by : [address] [address] ALT 36 7 - 55 Units/L [facility] Comment:Testing performed by : [address] [address] AST 48 10 - 50 Units/L [facility] Comment:Testing performed by : [address] [address] Blood 02/15/2025 3:53 PM CDT 02/15/2025 4:01 PM CDT us Ezequiel Carrizales MD LAB BLOOD ORDERABL ES Final Result Performing Organization Address [facility] Co de Phone Number [address] [place] [address] * Sepsis Lactate w/ Reflex (02/15/2025 3:41 PM CDT) [facility] Sepsis Lactate 1.4 0.7 - 2.0 mmol/L Comment:Testing performed by : [address] [address] Blood 02/15/2025 3:41 PM CDT 02/15/2025 3:59 PM CDT us Deana HO LAB BLOOD ORDERABLES Final Re sult Performing Organization Address [facility] de Phone Number [address] [place] [address] * (ABNORMAL) Differential, auto (02/15/2025 2:20 PM CDT) Pathologist [facility] Neutrophil abs 6.11 1.50 - 6.50 K/cumm Comment:Testing performed by : [address] [address] Imm gran abs 0.03 0.00 - 0.10 K/cumm [facility] SHETTY Comment:Testing performed by : [address] [address] Lymphocyte abs 4.59(H) 0.80 - 3.30 K/cumm [facility] SHETTY Comment:Testing performed by : [address] [address] Monocyte abs 1.00(H) 0.20 - 0.80 K/cumm [facility] Comment:Testing performed by : [address] [address] Eosinophil abs 0.14 0.00 - 0.50 K/cumm [facility] Comment:Testing performed by : [address] [address] Basophil abs 0.05 0.00 - 0.10 K/cumm [facility] Comment:Testing performed by : [address] [address] Neutrophil pct 51.2 % [facility] Comment: Interpretive Data Percent cell count reference ranges are not reported, since discordance with absolute values may lead to misinterpretation of CBC data. Current Interpretive Data was last revised on 2017. Testing performed by: [address] [address] Imm gran pct 0.3 % [facility] Comment: Interpretive Data Percent cell count reference ranges are not reported, since discordance with absolute values may lead to misinterpretation of CBC data. Current Interpretive Data was last revised on 2017. Testing performed by: [address] [address] Lymphocyte pct 38.5 % [facility] Comment: Interpretive Data Percent cell count reference ranges are not reported, since discordance with absolute values may lead to misinterpretation of CBC data. Current Interpretive Data was last revised on 2017. Testing performed by: [address] [address] Monocyte pct 8.4 % [facility] Comment: Interpretive Data Percent cell count reference ranges are not reported, since discordance with absolute values may lead to misinterpretation of CBC data. Current Interpretive Data was last revised on 2017. Testing performed by: [address] [address] Eosinophil pct 1.2 % [facility] Comment: Interpretive Data Percent cell count reference ranges are not reported, since discordance with absolute values may lead to misinterpretation of CBC data. Current Interpretive Data was last revised on 2017. Testing performed by: [address] [address] Basophil pct 0.4 % [facility] SHETTY Comment: Interpretive Data Percent cell count reference ranges are not reported, since discordance with absolute values may lead to misinterpretation of CBC data. Current Interpretive Data was last revised on 2017. Testing performed by: [address] [address] Blood 02/15/2025 2:20 PM CDT 02/15/2025 2:26 PM CDT Ezequiel Carrizales MD LAB BLOOD ORDERABL ES Final Result [facility] [address] [facility] [place] [address] * (ABNORMAL) CBC with auto differential (02/15/2025 2:20 PM CDT) WBC 11.92(H) 3.80 - 9.90 K/cumm Comment:Testing performed by : [address] [address] Hgb 7.7(L) 13.0 - 17.5 g/dL [facility] Comment:Testing performed by : [address] [address] Hct 22.2(L) 38.9 - 50.3 % [facility] SHETTY Comment:Testing performed by : [address] [address] Plt 292 150 - 400 K/cumm [facility] Comment:Testing performed by : [address] [address] MPV 10.0 9.1 - 12.3 fL [facility] Comment:Testing performed by : [address] [address] RBC 2.46(L) 4.30 - 5.80 M/cumm [facility] SHETTY Comment:Testing performed by : [address] [address] MCV 90.2 81.3 - 96.4 fL [facility] Comment:Testing performed by : [address] [address] MCH 31.3 27.1 - 33.3 pg [facility] Comment:Testing performed by : [address] [address] MCHC 34.7 32.3 - 35.7 g/dL [facility] SHETTY Comment:Testing performed by : [address] [address] RDW CV 22.0(H) 11.1 - 14.9 % [facility] Comment:Testing performed by : [address] [address] RDW SD 71.7(H) 35.7 - 48.1 fL [facility] Comment:Testing performed by : [address] [address] NRBC abs 0.09(H) 0.00 - 0.01 K/cumm [facility] Comment:Testing performed by : [address] [address] Blood 02/15/2025 2:20 PM CDT 02/15/2025 2:26 PM CDT Ezequiel Carrizales MD LAB BLOOD ORDERABL ES Final Result [facility] [address] [facility] Department of Laboratories [place], [place] [id number] * Influenza A/B, RSV, and COVID-19 PCR Nasopharyngeal (02/15/2025 1:35 PM CDT) COVID-19 RNA Negative Negative Comment:Testing performed by : [address] [address] Influenza A RNA Negative Negative [facility] Comment:Testing performed by : [address] [address] Influenza B RNA Negative Negative [facility] Comment:Testing performed by : [address] [address] RSV RNA Negative Negative [facility] Comment: Interpretive data: Testing performed by [facility]. This test is performed using the Cepheid Xpert Xpress CoV-2/Flu/RSV plus assay. This is a multiplex, real-time reverse transcriptase PCR assay intended for the qualitative detection of nucleic acid from SARS-CoV-2, influenza A, influenza B, and respiratory syncytial virus. This assay has been cleared by the [place] Food and Drug administration. The performance characteristics have been verified by the [facility]. Results must be considered in the clinical context, and a negative result does not rule out infection. Interpretive Data last revised 2023 Testing performed by: [facility], [address] [place] [address]., [address] Nasopharyngeal 02/15/2025 1: 35 PM CDT 02/15/2025 1:43 PM CDT Narrative [facility] - 02/15/2025 2:25 PM CDT Is the Patient experiencing symptoms consistent with COVID?->Yes Deana HO LAB MICROBIOLOGY - GENERAL OR DERABLES Final Result Performing Organization Address City/State/[facility] Co de Phone Number [facility] [address] [facility] Department of Laboratories [place], [place] [id number] * ECG 12 lead (02/15/2025 1:13 PM CDT) Pathologist [facility] Ventricular Rate EKG/Min 82 BPM [facility] Atrial Rate 82 BPM [facility] MI-Interval (MSEC) 174 ms [facility] QRS-Interval (MSEC) 80 ms [facility] QT-Interval (MSEC) 404 ms [facility] QTc 472 ms [facility] P [place] 62 degrees [facility] R [place] 15 degrees [facility] T [place] 24 degrees [facility] Diagnosis Normal sinus rhythm Normal ECG When compared with ECG of 16-JAN-2025 14:47, Nonspecific T wave abnormality, improved in Inferior leads Nonspecific T wave abnormality no longer evident in Anterolateral leads Confirmed by KEVON BYRD M.D. ([id number]) on 02/15/2025 2:52:50 PM [facility] 02/15/2025 1:13 PM CDT 02/15/2025 2:52 PM CDT Deana HO ECG ORDERABLES Final Result [facility] documented in this encounter Visit Diagnoses Diagnosis Vasoocclusive sickle cell crisis (HCC)- Primary Urine retention Unspecified retention of urine Thrombocytopenia Unspecified thrombocytopenia Sickle-cell crisis Hb-SS disease with crisis Chest pain Unspecified chest pain Shortness of breath Abnormal chest x-ray Nonspecific (abnormal) findings on radiological and other examination of lung field S/P splenectomy Other acquired absence of organ Diarrhea Cough PTSD (post-traumatic stress disorder) Posttraumatic stress disorder documented in this encounter Admitting Diagnoses Diagnosis Sickle cell pain crisis (HCC) documented in this encounter Administered Medications Active Administered Medications - up to 3 most recent administrations Medication Order MAR Action Action Date Dose Rate Site albuterol 2.5 mg/0.5 mL nebulizer solution 2.5 mg 2.5 mg, nebulization, Every 6 hours 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 (credit 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 clerk), wheezing, Starting on Fri02/23/25 at 0321 Given 02/23/2025 3:26 AM CDT 2.5 mg albuterol HFA (PROVENTIL HFA,VENTOLIN HFA,PROAIR HFA) 90 mcg/actuation inhaler 2 puff 2 puff, inhalation, As needed, wheezing, q 20 min prn wheezing/SOB, Starting on Fri02/15/25 at 1223 albuterol HFA (PROVENTIL HFA,VENTOLIN HFA,PROAIR HFA) 90 mcg/actuation inhaler 2 puff 2 puff, inhalation, 4 times daily PRN (credit 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 clerk), wheezing, Starting on Fri02/15/25 at 1456, q 20 min prn wheezing/SOB, Indications: Acute Asthma AttackIndications:Acute Asthma Attack Given 02/23/2025 3:11 AM CDT 2 puffs Carrier Fluids for Secondary Infusion - 0.9% Sodium Chloride 0-999 mL, intravenous, As needed, For priming tubing and/or flushing, Starting on Fri02/15/25 at 1227, Infuse 20 mL at the same rate as the secondary infusion to ensure full drug delivery. Run as primary IV not intended for KVO. Rate/Dose Verify 02/24/2025 6:32 AM CDT 25 mL/hr Rate/Dose Verify 02/23/2025 1:45 AM CDT 25 mL/h r Rate/Dose Verify 02/20/2025 4:23 AM CDT 25 mL/h r dextrose 5% and sodium chloride 0.45% infusion (premix) 100 mL/hr, intravenous, Continuous, Starting on Fara 02/17/25 at 1130 Rate/Dose Verify 02/20/2025 3:57 PM CDT 100 mL/hr 100 mL/hr New Bag 02/20/2025 4:27 AM CDT 100 mL/hr 100 mL/hr Rate/Dose Verify 02/20/2025 4:23 AM CDT 100 mL/hr 100 mL/ hr folic acid (FOLVITE) tablet 1 mg 1 mg, oral, Daily, First dose on Fri02/22/25 at 0900, Each tablet contains 1 mg of folic acid (1.67 mg DFE)., Indications: To prevent folic acid deficiency sickle cell diseaseIndications:To prevent folic acid deficiency sickle cell disease Given 02/23/2025 9:35 AM CDT 1 mg Given 02/22/2025 8:14 AM CDT 1 mg guaiFENesin (ROBITUSSIN) 20 mg/mL oral liquid 200 mg 200 mg, oral, 4 times daily PRN, cough, Starting on Fri02/15/25 at 1155 HYDROmorphone (DILAUDID) injection 0.5 mg 0.5 mg, intravenous, Administer over 2 Minutes, Every 8 hours PRN, 2nd line for pain, Starting on Fri02/23/25 at 1330, For 1 day Given 02/24/2025 5:59 AM CDT 0.5 mg Given 02/23/2025 9:53 PM CDT 0.5 mg naloxone (NARCAN) 0.4 mg/mL injection 0.4 mg 0.4 mg, intravenous, Every 10 min PRN, opioid reversal, respiratory depression, Starting on Fri02/15/25 at 1223, For IV, administer over 30 seconds. ondansetron (ZOFRAN) injection 4 mg 4 mg, intravenous, Administer over 2 Minutes, Every 4 hours PRN, nausea, vomiting, Starting on Fri02/15/25 at 1224 Given 02/19/2025 7:59 AM CDT 4 mg Given 02/19/2025 12:47 AM CDT 4 mg oxyCODONE (ROXICODONE) tablet 15 mg 15 mg, oral, Every 4 hours PRN, 2nd line for pain, Starting on Fri02/24/25 at 0703, May repeat in 1 hour if pain is uncontrolled or increasing. Max 2 doses within 1 dosing interval., Indications: PainIndications:Pain oxyCODONE-acetaminophen (PERCOCET) 10-325 mg per tablet 3 tablet 3 tablet, oral, Every 8 hours PRN, 1st line for pain, Starting on Fri02/22/25 at 0649, Indications: PainIndications:Pain Given 02/24/2025 11:10 AM CDT 3 tablets Given 02/23/2025 11:52 PM CDT 3 tablets Given 02/23/2025 9:35 AM CDT 3 tablets ramelteon (ROZEREM) tablet 8 mg 8 mg, oral, Nightly PRN, sleep, Starting on Fri02/15/25 at 1227, Indications: Sleep-Onset InsomniaIndications:Sleep-Onset Insomnia Given 02/23/2025 11:56 PM CDT 8 mg Given 02/23/2025 3:18 AM CDT 8 mg sodium chloride 0.9% flush 0.5-20 mL 0.5-20 mL, intra-catheter, Every 8 hours scheduled (alternate), First dose on Fri02/15/25 at 1600, Flush volume based on line type and size. Given 02/23/2025 6:37 PM CDT 10 mL Given 02/23/2025 9:36 AM CDT 10 mL Given 02/21/2025 10:47 PM CDT 10 mL sodium chloride 0.9% flush 0.5-20 mL 0.5-20 mL, intra-catheter, As needed, line care, Starting on Fri02/15/25 at 1227, Flush volume based on line type and size. Flush before and after each use. Given 02/19/2025 6:21 AM CDT 10 mL Given 02/19/2025 3:16 AM CDT 10 mL Given 02/18/2025 9:13 PM CDT 10 mL Inactive Administered Medications - up to 3 most recent administrations Medication Order MAR Action Action Date Dose Rate Site albuterol 2.5 mg/0.5 mL nebulizer solution - ADS Override Pull Starting on Fri02/23/25 at 0324, For 1 dose, Created by cabinet override albuterol HFA (PROVENTIL HFA,VENTOLIN HFA,PROAIR HFA) 90 mcg/actuation inhaler 2 puff 2 puff, inhalation, Every 4 hours while awake (credit 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 clerk), First dose on Fri02/15/25 at 1300, q 20 min prn wheezing/SOB, Indications: Acute Asthma AttackIndications:Acute Asthma Attack Given 02/15/2025 2:00 PM CDT 2 puffs azithromycin (ZITHROMAX) 500 mg/250 mL in sodium chloride 0.9% (premix) 500 mg 500 mg, intravenous, at 250 mL/hr, Administer over 60 Minutes, Every 24 hours scheduled, First dose on Fri02/15/25 at 1230, For 3 days, Indications: Pneumonia, Community AcquiredIndications:Pneumoni a, Community Acquired New Bag 02/15/2025 2:00 PM CDT 500 mg 250 mL/hr HYDROmorphone (DILAUDID) injection 0.2 mg 0.2 mg, intravenous, Administer over 2 Minutes, Every 8 hours PRN, 2nd line for pain, Starting on Fri02/23/25 at 1330, For 1 day Given 02/23/2025 1:16 PM CDT 0.2 mg HYDROmorphone (DILAUDID) injection 0.2 mg 0.2 mg, intravenous, Administer over 2 Minutes, Once, On Fri02/23/25 at 1415, For 1 dose Given 02/23/2025 1:44 PM CDT 0.2 mg HYDROmorphone (DILAUDID) injection 0.5 mg 0.5 mg, intravenous, Administer over 2 Minutes, Every 6 hours PRN, severe pain, Starting on Fri02/22/25 at 0416, Indications: PainIndications:Pain Given 02/22/2025 6:13 AM CDT 0.5 mg HYDROmorphone (DILAUDID) injection 0.5 mg 0.5 mg, intravenous, Administer over 2 Minutes, Once, On Fri02/23/25 at 0045, For 1 dose Given 02/23/2025 12:22 AM CDT 0.5 mg HYDROmorphone (DILAUDID) injection 0.5 mg 0.5 mg, intravenous, Administer over 2 Minutes, Once, On Fara 02/24/25 at 0930, For 1 dose Given 02/24/2025 9:23 AM CDT 0.5 mg HYDROmorphone (DILAUDID) injection 1.5 mg 1.5 mg, intravenous, Administer over 2 Minutes, Every 3 hours PRN, 1st line for pain, Starting on Fri02/16/25 at 1433 Given 02/18/2025 6:06 AM CDT 1.5 mg Given 02/18/2025 3:06 AM CDT 1.5 mg Given 02/17/2025 11:59 PM CDT 1.5 mg HYDROmorphone (DILAUDID) injection 1.5 mg 1.5 mg, intravenous, Administer over 2 Minutes, Every 3 hours PRN, 1st line for pain, Starting on Fri02/21/25 at 1551, For 1 day Given 02/21/2025 10:46 PM CDT 1.5 mg Given 02/21/2025 7:47 PM CDT 1.5 mg Given 02/21/2025 4:09 PM CDT 1.5 mg HYDROmorphone (DILAUDID) injection 2 mg 2 mg, intravenous, Administer over 2 Minutes, Every 3 hours PRN, 1st line for pain, Starting on Fri02/15/25 at 1145 Given 02/16/2025 2:30 PM CDT 2 mg Given 02/16/2025 11:05 AM CDT 2 mg Given 02/16/2025 7:55 AM CDT 2 mg HYDROmorphone (DILAUDID) injection 2 mg 2 mg, intravenous, Administer over 2 Minutes, Every 3 hours PRN, 1st line for pain, Starting on Fri02/18/25 at 0807 Given 02/21/2025 1:10 PM CDT 2 mg Given 02/21/2025 10:01 AM CDT 2 mg Given 02/21/2025 6:54 AM CDT 2 mg ioversoL (OPTIRAY 350) syringe 100 mL 100 mL, intravenous, Once in imaging, contrast, Starting on Fri02/15/25 at 2011, For 1 dose Contrast Given 02/15/2025 8:11 PM CDT 100 mL ketorolac (TORADOL) 30 mg/mL injection 30 mg 30 mg, intravenous, Every 6 hours scheduled, First dose on Fri02/15/25 at 1230, For 8 doses Given 02/16/2025 11:39 PM CDT 30 mg Given 02/16/2025 12:02 PM CDT 30 mg Given 02/16/2025 5:54 AM CDT 30 mg oxyCODONE (ROXICODONE) tablet 15 mg 15 mg, oral, 4 times daily, First dose on Fri02/15/25 at 1300, Indications: PainIndications:Pain Given 02/16/2025 12:32 PM CDT 15 mg Given 02/16/2025 7:55 AM CDT 15 mg Given 02/15/2025 9:57 PM CDT 15 mg oxyCODONE-acetaminophen (PERCOCET) 10-325 mg per tablet 3 tablet 3 tablet, oral, Every 8 hours PRN, 2nd line for pain, Starting on Fri02/16/25 at 1434, Indications: PainIndications:Pain Given 02/22/2025 12:02 AM CDT 3 tablets Given 02/20/2025 8:23 AM CDT 3 tablets Given 02/18/2025 1:00 AM CDT 3 tablets potassium chloride ER (KLOR-CON) extended release tablet 40 mEq 40 mEq, oral, Every 4 hours, First dose on Fri02/15/25 at 1830, For 2 doses, Total dose = 80 mEq Do not crush, chew, cut, dissolve, open or otherwise manipulate tablet/capsule. 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 0814 (Given - Provider: Farrah Guillermo RN) 0935 (Given - Provider: Betty Zuniga RN) 1240 (Not Given - Provider: Rae Chase RN - Reason: Patient/family refused) HYDROmorphone (DILAUDID) injection 0.2 mg (COMPLETED) 0.2 mg, intravenous, Administer over 2 Minutes, Once, On Fri02/23/25 at 1415, For 1 dose 1344 (Given - Provider: Betty Zuniga RN) HYDROmorphone (DILAUDID) injection 0.5 mg (COMPLETED) 0.5 mg, intravenous, Administer over 2 Minutes, Once, On Fri02/23/25 at 0045, For 1 dose 0022 (Given - Provider: Janeth Nicholson RN) HYDROmorphone (DILAUDID) injection 0.5 mg (COMPLETED) 0.5 mg, intravenous, Administer over 2 Minutes, Once, On Fri02/24/25 at 0930, For 1 dose 0923 (Given - Provider: Kateryna Francis RN) senna-docusate (PERICOLACE) 8.6-50 mg per tablet 1 tablet 1 tablet, oral, Nightly, First dose on Fri02/15/25 at 2100, Indications: constipation 2021 (Not Given - Provider: Janeth Nicholson RN - Reason: Patient/family refused) 211 (Not Given - Provider: Janeth Nicholson RN - Reason: Patient/family refused) 2100 (Due) sodium chloride 0.9% flush 0.5-20 mL 0.5-20 mL, intra-catheter, Every 8 hours scheduled (alternate), First dose on Fri02/15/25 at 1600, Flush volume based on line type and size. 0940 (Not Given - Provider: Farrah Guillermo RN - Reason: Patient/family refused)1618 (Not Given - Provider: Farrah Guillermo RN - Reason: Patient/family refused)2257 (Not Given - Provider: Janeth Nicholson RN - Reason: Patient/family refused) 0936 (Given - Provider: Betty Zuniga, RN)1837 (Given - Provider: Betty Zuniga, RN)2324 (Not Given - Provider: Janeth Nicholson RN - Reason: Patient/family refused) 1241 (Not Given - Provider: Rae Chase RN - Reason: Loss of IV access)1600 (Due) Continuous Medication Order 02/22/2025 02/23/2025 02/24/2025 dextrose 5% and sodium chloride 0.45% infusion (premix) 100 mL/hr, intravenous, Continuous, Starting on Fara 02/17/25 at 1130 PRN Medication Order 02/22/2025 02/23/2025 02/24/2025 albuterol 2.5 mg/0.5 mL nebulizer solution 2.5 mg 2.5 mg, nebulization, Every 6 hours PRN (credit 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 clerk), wheezing, Starting on Fri02/23/25 at 0321 0326 (Given - Provider: Des Arellano, BIOSECURITY OFFICER) albuterol HFA (PROVENTIL HFA,VENTOLIN HFA,PROAIR HFA) 90 mcg/actuation inhaler 2 puff 2 puff, inhalation, As needed, wheezing, q 20 min prn wheezing/SOB, Starting on Fri02/15/25 at 1223 albuterol HFA (PROVENTIL HFA,VENTOLIN HFA,PROAIR HFA) 90 mcg/actuation inhaler 2 puff 2 puff, inhalation, 4 times daily PRN (credit 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 clerk), wheezing, Starting on Fri02/15/25 at 1456, q 20 min prn wheezing/SOB, Indications: Acute Asthma Attack 0311 (Given - Provider: Verito Lin RN) Carrier Fluids for Secondary Infusion - 0.9% Sodium Chloride 0-999 mL, intravenous, As needed, For priming tubing and/or flushing, Starting on Fri02/15/25 at 1227, Infuse 20 mL at the same rate as the secondary infusion to ensure full drug delivery. Run as primary IV not intended for KVO. 0145 (Rate/Dose Verify - Provider: Janeth Nicholson RN) 0632 (Rate/Dose Verify - Provider: Janeth Nicholson RN) guaiFENesin (ROBITUSSIN) 20 mg/mL oral liquid 200 mg 200 mg, oral, 4 times daily PRN, cough, Starting on Fri02/15/25 at 1155 HYDROmorphone (DILAUDID) injection 0.2 mg (CANCELED) 0.2 mg, intravenous, Administer over 2 Minutes, Every 8 hours PRN, 2nd line for pain, Starting on Fri02/23/25 at 1330, For 1 day 1316 (Given - Provider: Betty Zuniga RN) HYDROmorphone (DILAUDID) injection 0.5 mg (CANCELED) 0.5 mg, intravenous, Administer over 2 Minutes, Every 6 hours PRN, severe pain, Starting on Fri02/22/25 at 0416, Indications: Pain 0613 (Given - Provider: Sofia Nicholson RN) HYDROmorphone (DILAUDID) injection 0.5 mg 0.5 mg, intravenous, Administer over 2 Minutes, Every 8 hours PRN, 2nd line for pain, Starting on Fri02/23/25 at 1330, For 1 day 2153 (Given - Provider: Janeth Nicholson RN) 0559 (Given - Provider: Janeth Nicholson RN) naloxone (NARCAN) 0.4 mg/mL injection 0.4 mg 0.4 mg, intravenous, Every 10 min PRN, opioid reversal, respiratory depression, Starting on Fri02/15/25 at 1223, For IV, administer over 30 seconds. ondansetron (ZOFRAN) injection 4 mg 4 mg, intravenous, Administer over 2 Minutes, Every 4 hours PRN, nausea, vomiting, Starting on Fri02/15/25 at 1224 oxyCODONE (ROXICODONE) tablet 15 mg 15 mg, oral, Every 4 hours PRN, 2nd line for pain, Starting on Fri02/24/25 at 0703, May repeat in 1 hour if pain is uncontrolled or increasing. Max 2 doses within 1 dosing interval., Indications: Pain 0800 (Not Given - Provider: Rae Chase RN - Reason: Patient/family refused) oxyCODONE-acetaminophen (PERCOCET) 10-325 mg per tablet 3 tablet (CANCELED) 3 tablet, oral, Every 8 hours PRN, 2nd line for pain, Starting on Fri02/16/25 at 1434, Indications: Pain 0002 (Given - Provider: Sofia Nicholson RN) oxyCODONE-acetaminophen (PERCOCET) 10-325 mg per tablet 3 tablet 3 tablet, oral, Every 8 hours PRN, 1st line for pain, Starting on Fri02/22/25 at 0649, Indications: Pain 0818 (Given - Provider: Farrah Guillermo, BOUCHRA)1726 (Given - Provider: Farrah Guillermo RN) 0130 (Given - Provider: Janeth Nicholson, BOUCHRA)0935 (Given - Provider: Betty Zuniga, RN)2352 (Given - Provider: Janeth Nicholson, BOUCHRA) 1110 (Given - Provider: Rae Chase RN) ramelteon (ROZEREM) tablet 8 mg 8 mg, oral, Nightly PRN, sleep, Starting on Fri02/15/25 at 1227, Indications: Sleep-Onset Insomnia 0318 (Given - Provider: Janeth Nicholson RN)2356 (Given - Provider: Janeth Nicholson RN) sodium chloride 0.9% flush 0.5-20 mL 0.5-20 mL, intra-catheter, As needed, line care, Starting on Fri02/15/25 at 1227, Flush volume based on line type and size. Flush before and after each use. documented in this encounter Orders Medications Ordered That Jayden ht Not Have Been Administered Count Last Ordered Date First Ordered Date oxyCODONE (ROXICODONE) tablet 15 mg 1 02/24 HYDROmorphone (DILAUDID) injection 0.5 mg 1 02/22/2025 albuterol 2.5 mg/0.5 mL nebu lizer solution 2.5 mg 1 02/15/2025 albuterol HFA (PROVENTIL HFA ,VENTOLIN HFA,PROAIR HFA) 90 mcg/actuation inhaler 2 puff 3 02/15/2025 diphenhydrAMINE (BENADRYL) 5 0 mg/mL injection 25 mg 1 02/15/2025 enoxaparin (LOVENOX) syringe 40 mg 1 2024 guaiFENesin (ROBITUSSIN) 20 mg/mL oral liquid 200 mg 1 02/15/2025 naloxone (NARCAN) 0.4 mg/mL injection 0.4 mg 1 02/15/2025 senna-docusate (PERICOLACE) 8.6-50 mg per tablet 1 tablet 1 02/15/2025 Lab Orders Without Results Count Last Ordered D ate First Ordered Date LACTATE DEHYDROGENASE 1 02/16/2025 RETICULOCYTES 2 02/16/2025 Diet Count Last Ordered Date First Orde red Date ADULT DIET 1 02/15/2025 Nursing Count Last Ordered Date First Orde red Date DAILY WEIGHTS 1 02/23/2025 ACTIVITY 1 02/15/2025 INCENTIVE SPIROMETRY NURSING 1 02/15/2025 INTAKE AND OUTPUT 1 02/15/2025 MAINTAIN IV ACCESS 1 02/15/2025 NOTIFY PROVIDER (SPECIFY) 1 02/15/[address] PL[address] SEQUENTIAL COMPRESSION DEVICE 1 02/15 VITAL SIGNS 1 02/15/2025 WEIGH PATIENT 1 02/15/2025 Code Status Count Last Ordered Date First Orde red Date FULL CODE 1 02/15/2025 Consult Count Last Ordered Date First Orde red Date IP CONSULT TO ONCOLOGY 1 02/15/2025 IP CONSULT TO SOCIAL WORK 1 02/15/2025 IP CONSULT TO SPIRITUAL CARE 1 02/15/2025 IV Count Last Ordered Date First Orde red Date INSERT PERIPHERAL IV 1 02/15/2025 Admission Count Last Ordered Date First Orde red Date ADMIT TO INPATIENT 1 02/15/2025 Discharge Count Last Ordered Date First Orde red Date DISCHARGE PATIENT 1 02/24/2025 Precaution Count Last Ordered Date First Orde red Date FALL PRECAUTIONS 1 02/15/2025 documented in this encounter Additional Health Concerns Infection Onset Date Last Indicated Resolved Time COVID: Suspected 02/15/2025 02/15/2025 02/15/2025 2:26 PM CDT documented as of this encounter Care Teams Bpm Architect Relationship Specialty Start Date End Date Laurent Gonzalez MD [address] [place] [address] PCP - General Hematology and Oncology 10/18/23 Ray Sainz MD [id number] [facility] [address] [place] [address] 02/10/[address] [place] [id number] [facility] [address] [place] [address] Consulting Physician Family Medicine 05/05/22 Miscellaneous, Not In File 12/14/22 [place] [id number] [facility] [address] [place] [address] Consulting Physician Orthopedic Surgery 08/18/24 documented as of this encounter
--- OUTSIDE RECORDS SUMMARY | 2025-02-15 10:49 | XMS_ITS | Encounter Summary ---
Author Organization [facility] Healthcare Address [address] [place] [address] Care Team Providers Care Nylon Operator Name Role Phone Ray Sainz MD Unavailable [phone] Gordo Herrera MD Unavailable [phone] Miscellaneous, Not In File Unavailable Unava ilable Laurent Gonzalez MD Primary Care Provider [phone] Tobin Terrell MD Unavailable [phone] Reason for Visit * Auth/Cert (Routine) Specialty Diagnoses / Procedures Referred By Contac t Referred To Contact Diagnoses Sickle cell pain crisis (HCC) Sickle Cell Crisis Procedures NA Referral ID Status Reason Start Date Expiration Date Visits Re quested Visits Authorized [id number] 1 1 Encounter Details Date Type Department Care Team (Latest Contact Info) Description 02/15/2025 10:49 AM CDT - 02/24/2025 12:10 PM CDT Hospital Encounter [facility] 5 Med Surg [address] [place] [address] Forrest Mason MD [address] [place] [address] Ezequiel Carrizales MD [address] [place] [address] Brie Munroe DO [address] [place] [address] Danay Higginbotham MD [address] [place] [place] [address] Vasoocclusive sickle cell crisis (HCC) (Primary Dx); Urine retention; Thrombocytopenia Discharge Disposition: Discharge to home or self [...] week 12/08/2024 How often do you attend [facility] or bahai services? Never 12/08/2024 Do you belong to [...] any time in the past 12 m [facility], were you homeless or living in a fpc (including now)? No 12/08/2024 Social Connection and Isolation Panel Answer Date Recorded In a typical week, how many times do you talk on the phone with family, friends, or neighbors? Patient declined 02/16/2025 How often do you get togethe r with friends or relatives? Patient declined 02/16/2025 How often do you attend jehovah's witness or bahai serv ices? Never 02/16/2025 Do you belong [...] money to buy more. Never true 02/17/20 Within the past 12 months, t he [...] any time in the past 12 m [facility], were you homeless or living in a fpc (including now)? 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 Call [phone] to speak with a dietitian about any diet related concerns. Additional resources are available online from the Academy of Nutrition and Dietetics at www.eatright.org * Discharge Instr - Other Orders* Erica Daniel LCSW - 02/17/2025 12:08 PM CDT [employer] Insurance: no-cost community resources near you [email or web address] Division Chair: Tash ([phone]) documented in this encounter Medications at Time of Discharge albuterol HFA (PROVENTIL HFA,VENTOLIN HFA,PROAIR HFA) 90 mcg/actuation inhaler Inhale 2 puffs as needed for wheezing (q 20 min prn wheezing/SOB) 1 each 02/24/2025 10/02/202 6 folic acid (FOLVITE) 1 mg tabletIndication s:To prevent folic acid deficiency sickle cell disease Take 1 tablet (1 mg total) by mouth daily 30 tablet 02/24/2025 5 naloxone (NARCAN) 0.4 mg/mL injection Infuse 1 mL (0.4 mg total) IV every 10 (ten) minutes as needed for opioid reversal or respiratory depression 1 mL 02/24/2025 documented as of this encounter Ordered Prescriptions [...] each 02/24/2025 6 documented in this encounter Discharge Disposition Disposition [...] need to routinely follow up with his foot specialist for ongoing management for these pain crises. He mentioned that his current Pain Contract with his foot specialist states that he can not receive opiates from other providers. I reached out to Dr Gonzalez to verify; pending response. But during IDR, this was confirmed. Patient also mentioned that he can only get appts with his foot specialist every 2-3 months. No labs were drawn [...] Anne Merchant M.D. FT: FT Report ID: [id number] Reading Location: [id number] XR Chest 1Vw Portable Result Date: 01/30/2025 [...] SPINE 3V Result Date: 01/29/2025 Narrative: [address] [address] Examination: XR LUMB SPINE 3V Exam time: [...] the content of this report. Ordered By: NEO GROSS Interpreted By: Roland Oliva DO, 01/29/2025 [...] Anne Merchant M.D. FT: FT Report ID: [id number] Reading Location: [id number] XR Chest 1Vw Portable Result Date: 01/30/2025 [...] SPINE 3V Result Date: 01/29/2025 Narrative: [address] [address] Examination: XR LUMB SPINE 3V Exam time: [...] 3 tablet 3 tablet oral Q8H PRN Frorest Mason MD 3 tablet at 02/22/25 0818 [...] Moderate Brie Munroe DO * Claudia Hartmann, DOROTA - 02/22/2025 12:29 PM CDT NUTRITION ASSESSMENT [...] RD services on previous admission 12/16-01/02/24 at [facility], 02/09-02/17/24, 03/30-04/05/24, 11/01-11/09/24 at [facility], 05/12-05/15/24 at [facility], 07/28-08/05/24, 04/15-04/28/24, 01/24-02/03/24, 10/20-10/29/24 at [facility], 10/05- 10/19/24, 01/01-01/18/25 at [facility],11/09-12/07/24, 12/13-12/22/24 at [facility], 01/29-02/12/25 at [facility]. Objective Past Medical History: Diagnosis Date Acute [...] Use: Not At Risk (01/29/2025) Received from [facility] Health AUDIT-C Q1: How often do [...] BUN SERUM mg/dL 3* CREATININE mg/dL 0.40* EZK-NDH-YPNSLEO mL/min/1.73 m2 >90 CALCIUM mg/dL 8.7 ALBUMIN g/dL 4.1 Recent Labs Lab Units 02/21/25 1414 02/20/25 1847 02/18/25 1220 02/17/25 1304 02/16/25 0950 02/15/25 1553 GLUCOSE mg/dL 94 99 112 125 104 121 ALT Date Value Ref Range Status 02/21/2025 26 7 - 55 Units/L Final Comment: Testing performed by: [address] [address] AST Date Value Ref Range Status 02/21/2025 36 10 - 50 Units/L Final Comment: Testing performed by: [address] [address] Alk phos Date Value Ref Range Status 02/21/2025 276 (H) 40 - 130 Units/L Final Comment: Testing performed by: [address] [address] Lab Results Component Value Date HGBA1C 4.7 [...] Factor: 2070 Equation Chosen to Use by RD:[place] Activity Factor: 1 Weight Used for Equation [...] during RD visit. 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 Previous RD note from 02/12/25 at [facility] reports patient consumed 0-90% of meals, was [...] today. Prefers blue gatorade- note added to Smart Balloon software of preference. No needs or questions, reports he will be leaving tomorrow anyway. He denied any problems of chewing/swallowing. UOP 400. LBM 02/21. He is from home and will likely return after discharge. RD will continue to monitor. ADA (ASPEN) MALNUTRITION ASSESSMENT: Date of completion: 02/22/25 [...] and drink water throughout the day. Call [phone] to speak with a dietitian about any [...] Anne Merchant M.D. FT: FT Report ID: [id number] Reading Location: [place] [address] XR Chest 1Vw Portable Result Date: 01/30/2025 [...] LUMB SPINE 3V Result Date: 01/29/2025 Narrative: [facility] [address], [place] [address] Examination: XR LUMB SPINE 3V Exam time: [...] tongue midline, mucosa moist Lungs CTA Heart: [id number] Abd: +BS, Non Tender, Non distended, No [...] ??C (98.2 ??F) Most Recent : Vitals: 02/20/25212825 0029 02/21/25 0330 02/21/25 0757 BP: 121/70 [...] Anne Merchant M.D. FT: FT Report ID: [id number] Reading Location: [place] [address] ASSESSMENT/PLAN: Active Problems: Shortness of breath Diarrhea [...] Luciana Mahmood NP Division of Medical Oncology [facility] I have discussed the [...] tongue midline, mucosa moist Lungs CTA Heart: [id number] Abd: +BS, Non Tender, Non distended, No [...] tongue midline, mucosa moist Lungs CTA Heart: [id number] Abd: +BS, Non Tender, Non distended, No [...] Out: 5700 [Urine:5700] I/O this shift: In: 1941.7 [I.V.:1941.7] Out: 600 [Urine:600] Physical Exam: Eyes: EOMI, KATLYN, sclare non icteric Neck: supple, no nuchal ridigity, no gross carotid bruits appreciated Pharynx: No gross oral lesion, tongue midline, mucosa moist Lungs CTA Heart: SDWS0C4 Abd: +BS, Non Tender, Non distended, No [...] 31.5 30.5 - 38.0 pg Thyroid Function [place] [facility] Time: 02/17/25 1:04 PM Result Value [...] PM MDM complexity level: Moderate * Kassy eGorge BARKER PEELER - 02/18/2025 11:47 AM CDT Oncology Medicine [...] 5700 [Urine:5700] I/O this shift: In: 1940.7 [I.V.:] Out: 600 [Urine:600] Current Facility-Administered Medications Medication [...] 31.5 30.5 - 38.0 pg Thyroid Function [place] [facility] Time: 02/17/25 1:04 PM Result Value [...] Anne Merchant M.D. FT: FT Report ID: [id number] Reading Location: [place] [address] XR Chest 1Vw Portable Result Date: 01/30/2025 [...] SPINE 3V Result Date: 01/29/2025 Narrative: [address] [address] Examination: XR LUMB SPINE 3V Exam time: [...] 1 View Result Date: 01/18/2025 Narrative: [address] [address] Examination: XR CHEST PORTABLE Exam time: 01/18/2025 [...] narcotics to work towards discharge. Kassy George, ADMINISTRATION ASSISTANT, CERTIFIED FIRST ASSISTANT-C, CCRN Division of Medical Oncology [facility] I have discussed the assessment and plan of care of this patient with my collaborating physician. Cosigned by Humberto Serna, at 02/19/2025 10:16 AM CDT * Ezequiel [...] tongue midline, mucosa moist Lungs CTA Heart: [id number] Abd: +BS, Non Tender, Non distended, No [...] 100 mL/hr intravenous Continuous Ezequiel Carrizales MD guaiFENesin (ROBITUSSIN) 20 mg/mL oral liquid 200 mg 200 mg oral QID PRN Deana Crandall PA HYDROmorphone (DILAUDID) injection 1.5 mg 1.5 mg intravenous Q3H PRN Ezequiel Carrizales MD 1.5 mg at 02/17/25 0904 ketorolac (TORADOL) 30 mg/mL injection 30 mg 30 mg intravenous Q6H [facility] Ezequiel Carrizales MD 30 mg at 02/16/25 [...] 0.5-20 mL intra-catheter Q8H MICHEAL (ALT) Deana rCandall PA 10mL at 02/17/25 0800 sodium chloride [...] AM MDM complexity level: Moderate * Kassy George NP - 02/17/2025 9:09 AM CDT Oncology Medicine [...] 5:649. I/O last 2 completed shifts: In: 1760 [P.O.:1740; I.V.:20] Out: 2024 [Urine:2024] I/O this [...] injection 30 mg 30 mg intravenous Q6H [facility] Ezequiel Carrizales MD 30 mg at 02/16/25 [...] Anne Merchant M.D. FT: FT Report ID: [id number] Reading Location: [id number] XR Chest 1Vw Portable Result Date: 01/30/2025 [...] SPINE 3V Result Date: 01/29/2025 Narrative: [address] [address] Examination: XR LUMB SPINE 3V Exam time: [...] 1 View Result Date: 01/18/2025 Narrative: [address] [address] Examination: XR CHEST PORTABLE Exam time: 01/18/2025 [...] narcotics to work towards discharge. Kassy George, ADMINISTRATION ASSISTANT, CERTIFIED FIRST ASSISTANT-C, CCRN Division of Medical Oncology [facility] I have discussed the [...] tongue midline, mucosa moist Lungs CTA Heart: [id number] Abd: +BS, Non Tender, Non distended, No [...] injection 30 mg 30 mg intravenous Q6H [facility] Ezequiel Carrizales MD 30 mg at 02/16/25 1202 naloxone [...] MDM complexity level: Moderate * Kassy George BARKER PEELER - 02/16/2025 9:39 AM CDT Oncology Medicine [...] Ezequiel Bowden MD 30 mg at 02/16/25 0554 naloxone [...] EKG/Min 82 BPM Atrial Rate 82 BPM AK-Interval (MSEC) 174 ms QRS-Interval (MSEC) 80 ms QT-Interval (MSEC) 404 ms QTc 472 ms P Shawnee 62 degrees R Shawnee 15 degrees T Shawnee 24 degrees Diagnosis Normal sinus rhythm Normal ECG When compared with ECG of 16-JAN-2025 14:47, Nonspecific T wave abnormality, improved in Inferior leads Nonspecific T wave abnormality no longer evident in Anterolateral leads Confirmed by KEVON BYRD M.D. ([id number]) on 02/15/2025 2:52:50 PM Influenza A/B, RSV, [...] Anne Merchant M.D. FT: FT Report ID: [id number] Reading Location: [id number] XR Chest 1Vw Portable Result Date: 01/30/2025 [...] SPINE 3V Result Date: 01/29/2025 Narrative: [address] [address] Examination: XR LUMB SPINE 3V Exam time: [...] 1 View Result Date: 01/18/2025 Narrative: [address] [address] Examination: XR CHEST PORTABLE Exam time: 01/18/2025 [...] Dr. Gonzalez as previously scheduled. Kassy George, ADMINISTRATION ASSISTANT, CERTIFIED FIRST ASSISTANT-C, CCRN Division of Medical Oncology [facility] I have discussed the assessment and plan of care of this patient with my collaborating physician. Cosigned by Dominick Ramirez Jr., MD at 02/17/2025 7:22 AM CDT * Christiano Westbrook - 02/16/2025 8:52 AM CDT 02/16/25 0800 Time Spent Start Time 0815 Patient Spiritual Assessment Spirituality Assessed Yes Christian Affiliation Gnosticism Active in Sabianism No Clinical Encounter Type Visited With Patient [...] CDT Spiritual Care Note Cha Wallace M.Div. [facility] Pt eating lunch at this time and would like to complete advance directive the next day. 02/15/25 1300 Time Spent Start Time 1430 Patient Spiritual Assessment Spirituality Assessed Yes Christian Affiliation Gnosticism Clinical Encounter Type Visited With Patient Response Type Routine visit Reason for visit Advanced directive Interventions Interventions Offer spiritual/bahai support * Forrest Mason MD - 02/15/2025 6:33 AM CDT Transferring facility: [facility] Reason for transfer: Sickle cell pain crisis, rule out acute chest syndrome ED signs out 21-year-old male with past medical history of sickle cell anemia who presents to [facility] with chief complaint of diffuse pain typical [...] Admission:02/15/2025 Primary Care Physician: Laurent Gonzalez MD [phone] CHIEF COMPLAINT: Patient is a 29 y.o. [...] pain at 10/10. He was transferred from [facility] to here for possible acute chest syndrome. Patient did decline taking Levaquin int ED. He has multiple allergies to medication [...] Use: Not At Risk (01/29/2025) Received from [facility] Health AUDIT-C Q1: How often do [...] SPINE 3V Result Date: 01/29/2025 Narrative: [address] [address] Examination: XR LUMB SPINE 3V Exam time: [...] 1 View Result Date: 01/18/2025 Narrative: [address] [address] Examination: XR CHEST PORTABLE Exam time: 01/18/2025 [...] MF: MFD: 01/16/2025 3:09 PM Report ID: [id number] Reading Location: [place] [address] These fluid and electrolyte abnormalities are being [...] ago. I reviewed ER paperwork sent from [facility] Chest x-ray showed cardiomegalywith mild pulmonary vascular congestion per Radiology. White blood cell count was [address], hemoglobin7.8 with hematocrit of 22.8. This is [...] As there is concern for possible acute chest syndrome I will start him on azithromycin 500 mg IV x3 days given his allergies will use this alone for now. I ordered an EKG, telemetry with SpO2 monitoring, a CBC, CMP, retic count, lactate, blood cultures, urinalysis. Patient reports he has had diarrhea x6 over the last 2 days I did order a stoolculture. He has not had recent antibiotics in the last month. Oxygen p.r.n. to maintain sats above 92%. Humidified oxygen as he did not tolerate without over in the ER. I ordered a CT of his chest per PE protocol with abdomen and pelvis due to diarrhea. This is pending. I placed a consult to Brenda nurse practitioner for Hematology and appreciate her [...] at 100 mL/hr times 10 hours. Regular diet. We will also check UA. It is likely dark due to bilirubin elevation. He is not icteric otherwise. Wewill obtain a 2D echo for further evaluation of shortness of breath. He did have 1 in July of 2024which showed ejection fraction of 65-70%. For cough patient will also be given Robitussin 200 mg q.i.d., spirometry q.2 hours and albuterol 2 puffs q.i.d. while awake as he has been wheezing Consult to social work and PT. Patient would like to make his sister is SOILA so spiritual care was consulted.Repeat CBC and CMP in the a.m. daily [...] past and had a bad experience at [facility] so he does not like to go [...] PT/OT: ordered Consult to Case Management and/or Concrete Mixer Loader Truck Mounted Voice recognition software MModal Fluency Direct may have been used to dictate and transcribe this document. Brake Lining Finisher variances may occur. Despite proofreading, typographical errors may occur. VIC Harrington 02/15/2025 12:36 PM For patients or family members viewing this note through ESL Consultinghart: This note was written as a communication [...] this encounter Consult Notes * Kassy George BARKER PEELER - 02/15/2025 12:49 PM CDT Oncology Medicine [...] of uncontrolled pain. He was transferred to [facility]. On arrival CMP remarkable for hyperbilirubinemia, [...] 500 mg intravenous Q24H Ezequiel Bowden MD Carrier Fluids for Secondary Infusion - [...] Q6H Ezequiel Bowden MD 30 mg at 02/15/25 1208 naloxone [...] intra-catheter Q8H MICHEAL (ALT) Deana Crandall PA sodium chloride 0.9% [...] Use: Not At Risk (01/29/2025) Received from [facility] Health AUDIT-C Q1: How often do [...] Andrew Stubbs M.D. AR: TOREY Report ID: [id number] Reading Location: [place] [address] XR Chest 1 View Result Date: 12/31/2024 Narrative: [address] [address] Examination: Chest 1 view portable History: Chest [...] Rate: 106 bpm RR Interval: 561 msec AK Interval: 160 msec QRS Duration: 90 msec QT Interval: 368 msec QTC Interval: 430 msec P-R-T Shawnee: 64 - 31 - 15 degrees IMPRESSION: SINUS TACHYCARDIA ABNORMAL RHYTHM ECG Electronically Signed By: Celestino Dunlap [employer] Card XR Chest Pa Lateral 2 Views Result Date: 12/22/2024 Narrative: XR CHEST PA AND LATERAL 2 VW Ordering provider: [facility] History: 29 years Male [...] Gina Betancur D.O. PS: PS Report ID: [id number] Reading Location: [id number] CT Chest W Contrast Result Date: 12/15/2024 Narrative: [address] [address] Examination: CT chest with IV contrast. Clinical [...] CHEST PA+LAT Result Date: 12/13/2024 Narrative: [address] [address] Examination: Chest 2 View History: Chest pain, [...] pulmonary disease. DICTATION LOCATION: Location 1 - [facility] * Cannot find OR log * ASSESSMENT/PLAN: Active Problems: Shortness of breath Diarrhea Abnormal chest x-ray Chest pain S/P splenectomy Sickle-cell crisis Cough PTSD (post-traumatic stress disorder) Mr. Villalpando is a 29 year old male admitted with sickle cell pain crisis. Sickle cell crisis Uncontrolled pain - Patient's counts are overall stable. - I have contacted his foot specialist, Dr. Gonzalez, since the patient was seen by him yesterday. - Continue folic acid 1 mg daily. - Daily CBC while admitted - Daily CMP while admitted - Daily reticulocyte count while admitted I have discussed the assessment and plan of care of this patient with my collaborating physician. Kassy George, GASTON, CERTIFIED FIRST ASSISTANT-C, CCRN Division of Medical Oncology [facility] Cosigned by Justin Thompson [...] refusing staff to attempt another IV access. BARKER PEELER Hammad Hu aware. documented in this encounter [...] AFTER HOURS, PLEASE REACH OUT TO THE CHILD WELFARE CONSULTANT SOCIAL WORK TEAM* 02/24/25 1249 Discharge Summary [...] vital signs, rest, comfort, safety, pain management Residential Patient Centered Goal for Treatment: DC to [...] he has pain contract through Dr. Gonzalez's [facility] and we are not to prescribe opiates from other providers. Outpt apt noted for [facility] on 04/[address] Gonzalez. Message sent to BOUCHRA Steen Coordinator with Dr. Gonzalez's office to inquire about pt's statement of having established pain contract. Enio confirmed their office should be providing him with medications if possible. Enio planning to coordinate with Dr. Gonzalez regarding medications for pt. Regarding outpt support through [facility], 7 days must pass since a patients discharge date or last pain treatment before being considered to try IV pain medication in an outpt infusion center. Pt often does not meet this requirement d/t recurrent hospitalizations. Office could offer a maximum of 2 pain treatments per month. Per Enio. 12:04p-V/m left for Tash Fisher RN/CM with [employer] insurance ([phone]) to provide update on dc. Awaiting call back. PLAN: Anticipate dc today. Pt not interested in speaking with this ELECTRONIC PREPRESS SYSTEM OPERATOR regarding dc planning/transportation per RN. Appreciate continued outpatient f/u with [facility]. No further SW needs identified at this time. Erica Daniel LCSW [phone] 02/24/2025 12:05 PM * Plan of Care - Luciana Mahmood BARKER PEELER - 02/24/2025 7:56 AM CDT Images from [...] Anne Merchant M.D. FT: FT Report ID: [id number] Reading Location: [place] [address] XR Chest 1Vw Portable Result Date: 01/30/2025 [...] SPINE 3V Result Date: 01/29/2025 Narrative: [address] [address] Examination: XR LUMB SPINE 3V Exam time: [...] continue to follow peripherally Luciana Mahmood APRN, CERTIFIED FIRST ASSISTANT- Nurse Practitioner Division of Oncology [address] [place] [address], [facility] [address] [place] [address] , ext, 1, ext [phone] Brake Lining Finisher completed by using M*Modal Fluency Direct speaking software, therefore, transcriptionvariances may occur Cosigned by Vicente Laboy MD at 02/24/2025 10:50 AM CDT * Plan of Care - Janeth Nicholson RN - 02/24/2025 2:16 AM CDT Goals: Clinical Goals for the Shift: stable vital signs, rest, comfort, safety, pain management Life Coach Patient Centered Goal for Treatment: DC to [...] Clinical Goals for the Shift: Pain,Nutrition, Comfort Life Coach Patient Centered Goal for Treatment: DC to [...] plan will improve Outcome: Progressing Flowsheets (Taken 02/23/20251555) Ability to develop a pain control plan will improve: Explain causes of pain and how long pain can be expected to last Teach information regarding pain management Educate pain scale for assessing level of pain Teach notification to healthcare provider of episodes of pain Problem: Medication Goal: Satisfaction with pain management medication regimen will improve Outcome: Progressing Flowsheets (Taken 02/23/20251555) Satisfaction with pain management medication regimen will [...] patient's pain levels Outcome: Progressing Flowsheets (Taken 02/23/20251555) Ability to identify factors that increase pain [...] Flowsheets (Taken 02/22/2025 1558 by Farrah Guillermo, RN) Ability to cope will Improve: Encourage vebalization of feelings surrounding pain Assess beliefs of pain Problem: Health Behavior Goal: Identification of resources available to assist in meeting health care needs will improve Outcome: Progressing Flowsheets (Taken 02/20/2025 0524 by Deana Castrejon, RN) Identification of resources available to assist in [...] admission unless medically necessary. Erica Daniel LCSW [phone] 02/23/2025 12:56 PM * Plan of Care [...] and continue his aforementioned PRN pain regimen. ONicholas MAHER * Plan of Care - Farrah [...] admission unless medically necessary. Erica Daniel LCSW [phone] 02/22/2025 1:13 PM * Plan of Care [...] Anne Merchant M.D. FT: FT Report ID: [id number] Reading Location: [id number] XR Chest 1Vw Portable Result Date: 01/30/2025 [...] LUMB SPINE 3V Result Date: 01/29/2025 Narrative: [facility] [address], [place] [address] Examination: XR LUMB SPINE 3V Exam time: [...] continue to follow peripherally Luciana Mahmood APRN, CERTIFIED FIRST ASSISTANT- Nurse Practitioner Division of Oncology [facility] [facility], [address] [place] [address] , ext, 1, ext 1 Brake Lining Finisher completed by using M*Modal Fluency Direct speaking [...] needs will improve Outcome: Progressing Flowsheets (Taken 02/22/2025 030) Understanding of discharge needs will improve: Discuss [...] when medically ready. Yue Frank RN 02/21/25 1453 Discharge Planning Support System Friends/neighbors Anticipated discharge [...] pain medication tomorrow and for dc on Fri. MD in agreement with plan. New Hospitalist will take over tomorrow, 02/22. Approx 12:00p-VINNIE, nurse business strategy manager and addictions counselor assistant nurse business strategy manager. Pt laying in bed and watching phone with volume on. Eye contact poor. Nurse business strategy manager discussed concern with pt's behavior toward staff and [facility] pt and visitor code of conduct provided to pt. Pt argumentative with nurse business strategy manager and denied disrespectful behavior to staff. Pt reported he requested to PCT to not put blood pressure cuff on RUE d/t avascular necrosis and PCTdid not respond well to this request. Nurse business strategy manager verbalized understanding, noted documentation can be put in place and sign in room to alert all staff not to use RUE with blood pressure cuff, pt declined for documentation to be put in chart or for sign in room to alert staff of this. Pt noted heplans not to return to this facility. VINNIE discussed plan noted in IDR for transition to PO pain med tomorrow with plan for dc home Fri. Ptstated he is aware and that he came up with the plan. SW inquired several times about safe dc planning and where pt planning to go at time of dc. Pt argumentative, stating he provided this ELECTRONIC PREPRESS SYSTEM OPERATOR with his address and does not understand need for personal questions such as where he will be going. SW discussed that this ELECTRONIC PREPRESS SYSTEM OPERATOR has not been given pt's address by pt this admission. Pt noted his address is what is on file in [facility] and when asked if pt lives there he stated who else would live there. Ptreported his address as [address] [place] after some arguing. Pt stated he would inform SW if he needs assistance with transportation at time of dc. Conflicting information as earlier this stay (02/16), pt noted to this ELECTRONIC PREPRESS SYSTEM OPERATOR and CM that he resides at a downtown [place]ft in [place]. Pt today noting he resides in [place]. SW to continue to follow and assist with needs. Continue to recommend no IV Benadryl for patient during admission unless medically necessary. Erica Daniel LCSW [phone] 02/21/2025 3:36 PM * Incidental Note - Zeferino Gonogra RN - 02/21/2025 12:17 PM CDT Responded to patient's room with [employer] and ANM. Attempted to speak with patient on reports of disrespectful and impolite behaviors towards staff. Patient denied but during conversation displayed these behaviors. Provided the [facility] patient and visitor code of conduct [...] arm and signa-age above bed. Patient refused. demurrage worker asked to discuss plan for discharge. Asked if he had a safe place for discharge. Patient continued to refuses to answer or make eye contact. When pressed for the information, became argumentative and refused to confirm if he has or has not a home or safe place for discharged. The patient eventually reported the address listed in [facility] is his personal home address that [...] plan will improve Outcome: Ongoing Flowsheets (Taken 02/20/2025523) Ability to develop a pain control plan will improve: Explain causes of pain and how long pain can be expected to last Teach information regarding pain management Educate pain scale for assessing level of pain Problem: Coping Goal: Ability to cope will improve Outcome: Ongoing Flowsheets (Taken 02/20/2025523) Ability to cope will Improve: Encourage vebalization of feelings surrounding pain Provide emotional support Problem: Health Behavior Goal: Identification of resources available to assist in meeting health care needs will improve Outcome: Ongoing Flowsheets (Taken 02/20/2025523) Identification of resources available to assist in [...] Frank RN - 02/18/2025 1:53 PM CDT CM Care Progression Expected Discharge [...] when medically ready. Yue Frank RN 02/18/25 1350 Discharge Planning Support System Friends/neighbors Anticipated discharge [...] to SW that he was working with family independence case manager Vadim through [facility] for housing support. Approx 3:15p-V/m left for [facility] ([phone]) requesting call back to inquire if pt is still involved with patient case manager Vadim for housing support. SW/CM to continue to follow and assist with needs. Continue to recommend no IV Benadryl for patient during admission unless medically necessary. Discussed with IDR team. Erica Daniel LCSW [phone] 02/18/2025 1:05 PM * Plan of Care [...] comfort, safety, pain control * Plan of Carole Carey RN - 02/18/2025 5:17 AM CDT Goals: [...] Plan of care discussed with patient and/or medical claims representative, including as it relates to principle problem. Patient and/or medical claims representative verbalizes understanding. Will continue to monitor. Problem: Lack of Knowledge Goal: Ability to develop a pain control plan will improve Outcome: Progressing Flowsheets (Taken 02/17/2025 005 by Janeth Nicholson, RN) Ability to develop a pain control plan will improve: Educate pain scale for assessing level of pain Problem: Medication Goal: Satisfaction with pain management medication regimen will improve Outcome: Progressing Flowsheets (Taken 02/17/2025 005 by Janeth Nicholson, RN) Satisfaction with pain [...] needs will improve Outcome: Progressing Flowsheets (Taken 02/16/2025 0300 by Janeth Nicholson, RN) Understanding of discharge needs will improve: Identify discharge barriers Problem: Musculoskeletal Goal: Return mobility to safest level of function Outcome: Progressing Flowsheets (Taken 02/16/2025 0300 by Janeth Nicholson, RN) Return mobility to safest level of function: Assess patient stability and activity tolerance for standing, transferring and ambulating with or without assistive devices Problem: Gastrointestinal Goal: Minimal or absence of nausea and vomiting Outcome: Progressing Flowsheets (Taken 02/17/2025 005 by Janeth Nicholson, RN) Minimal or absence of nausea and vomiting: Assess gastrointestinal status Goal: Maintains or returns to baseline bowel function Outcome: Progressing Goal: Maintains adequate nutritional intake Outcome: Progressing Flowsheets (Taken 02/16/2025 0300 by Janeth Nicholson, RN) Maintains adequate nutritional [...] 3.8 (L): Data is abnormally low Treatment: peggyor lynn References: From the ICD-10-CM Coding Guidelines, use of terms such as likely, suspected, possible, or probable(associated with a specific diagnosis that is being evaluated, monitored, or treated as if it exists) are acceptable and can be coded in the inpatient setting when documented at the time of discharge. This documentation will become part of the patient???s medical record. Sincerely, Maggie Salomon HEALTH WORKER * Plan of Care - Erica Daniel LCSW - 02/17/2025 8:56 AM CDT VINNIE continuing to follow. Complex case, readmission. Working to identify outpt pt supports and barriers. SW contacted [facility] transportation ([phone]) through [employer] insurance. Informed pt has unlimited med car transportation rides on plan.Can accommodate picker operator in [place] with verbal approval when setting up trip. SW contacted [employer] member services ([phone]). 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 SW contacted Tash to discuss case. Tash [...] do regarding pt's case. Tash noted insurance family practice medical doctor has spoken with BOUCHRA Steen Coordinator with [facility] in 11/17 about [...] Pt watching phone, poor eye contact with ELECTRONIC PREPRESS SYSTEM OPERATOR. Pt stated several times I don't want to talk. SW discussed above information regarding pt having transportation benefits and CM through [employer] insurance. Pt stated he was already aware of this information. Also discussed [employer] link program for assistance with housing, food, utilities and other services. Pt noted he does not need this information on community resources. SW attempted to provide written flyers and information on above insurance programs and pt declined for papers to be left in the room. Case discussed with CM. Information for [employer] CM and their Community Resource link program provided in AVS. Continue to recommend no IV Benadryl for patient during admission unless medically necessary. Erica Daniel LCSW [phone] 02/17/2025 8:57 AM * Plan of Care [...] Steen coordinator with Dr. Gonzalez's office through [facility]. Inquired about pt's claim of Dr. Gonzalez putting in place inpt medication regiment involving IV Benadryl. Per Enio, their office does not include IV Benadryl in care plans. Discussed with Hospitalist MD in IDR. Recommend no IV Benadryl for patient during admission unless medically necessary. Call to charge out clerk to make aware of above. 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 : Yes-DPOA DPOA Name/Phone: Albertina Vick (Sister) [phone] Payor Source: Medicaid Race: Black or -Nepalese Ethnicity: Non- Gender Identity: Male Service : [...] incarceration and parole. as charted by this ELECTRONIC PREPRESS SYSTEM OPERATOR 10/07/2024 (02/16/25955) Support Systems and Spirituality: Support Systems and Spirituality Other Family Member Name/Contact Information: Albertina Vick (Sister) [phone] Participation from Patient's Support System: Pt voiced no supports. Albertina (sister) is 18, pt provided limited information. Do you have a Christian Preference or Affiliation?: Yes Preference/Affiliation : Gnosticism Are there any Christian Practices that are important to maintain while admitted?: No Do you have Cultural Factors that are important to you?: No Description of Childhood: Pt adopted as an infant. Pt's adopted mother when he was 9.as charted by this ELECTRONIC PREPRESS SYSTEM OPERATOR 10/07/2024 (02/16/25955) Strengths, Assets, Liabilities and Stressors: Strengths, Assets, [...] Chronic illness, Non-compliance, Other (Comment) (recurrent hospitalizations) (02/16/25955) SDOH Transportation Needs: Patient Declined (02/16/2025) PRAPARE - Transportation Lack of Transportation (Medical): Patient declined Lack of Transportation (Non-Medical): Patient declined Financial Resource Strain: Low Risk (02/16/2025) Overall Financial Resource Strain (CARDIA) Difficulty of Paying Living Expenses: Not hard at all Recent Concern: Financial Resource Strain - High Risk (12/14/2024) [facility] from [facility] Overall Financial Resource Strain (CARDIA) How hard [...] Year: No Utilities: Not At Risk (02/16/2025) [facility] Utilities Threatened with loss of utilities: No Social Connections: Unknown (02/16/2025) Social Connection and Isolation Panel Frequency of Communication with Friends and Family: Patient declined Frequency of Social Gatherings with Friends and Family: Patient declined Attends Christian Services: Never Active Member of Clubs or Organizations: No Attends Club or Organization Meetings: Never Marital Status: Not on file Recent Concern: Social Connections - Socially Isolated (01/03/2025) Social Connection and Isolation Panel Frequency of Communication with Friends and Family: More than three times a week Frequency of Social Gatherings with Friends and Family: Twice a week Attends Christian Services: Never Active Member of Clubs or Organizations: No Attends Club or Organization Meetings: Never Marital Status: Never Food Insecurity: No Food Insecurity (02/16/2025) Hunger Vital Sign Worried About Running Out of Food in the Last Year: Never true Ran Out of Food in the Last Year: Never true Recent Concern: Food Insecurity - Food Insecurity Present (12/14/2024) Received from [facility] Hunger Vital Sign Within the past 12 [...] Use - Medium Risk (02/11/2025) Received from [facility] [employer] Patient History Smoking Tobacco Use: Former Smokeless Tobacco Use: Never Passive Exposure: Past Alcohol Use: Not At Risk (01/29/2025) Received from [facility] [employer] AUDIT-C Q1: How often do you have [...] to others? : Unable to assess (02/16/25 0998) Impressions and Recommendations: Consult: Patient identified for IP assessment due to readmission risk (57%), 30 day readmission and high utilizer (37). Impressions: Patient was assessed due to recent hospitalization related to pain, sickle cell disease with crisis, low back pain, bilateral foot pain. Pt recently seen at [facility] 01/29-02/14. SW and ELVIS Turner spoke [...] arrangement had changed since hospital stay at [facility], that per CM documentation on 01/31 charted that pt noted he was renting an AirBnB and partially staying with step mother. Pt stated he did not say this and this is not correct. Pt stated he recently moved to a [facility] in [place]. Pt stated he did not feel comfortable [...] Recommendations: Discharge Planning: Anticipate returning home at wa. Anticipate needing assistance with transportation at wa. Support Systems: Pt noting poor outpatient support. Encourage interdisciplinary team to align on inpatient care plan for this patient. Goal for consistency during hospitalizations regarding approaches if/when possible. Discussed in IDR with hospitalist and CM. Psychosocial Needs: SW to continue to follow and monitor psychosocial needs. Advance Care Planning: Healthcare POA completed and on file. Albertina Vick (sister) [phone] ? Continue to monitor psychosocial status. Coordinate with case management for ongoing discharge planning and resource linkage. Encourage patient participation in available support systems. Plan: Continue to monitor psychosocial needs and support coordination of resources. Erica Daniel LCSW [phone] 02/16/2025 3:04 PM * Plan of Care - Erica Daniel LCSW - 02/16/2025 2:52 PM CDT Social Work Chart Review - Readmission Date:02/16/2025 Reason for Readmission:Vasoocclusive sickle cell crisis (HCC) Chart Review Summary from last admission: Patient was admitted on 01/29-02/14 at [facility] for sickle cell disease with crisis. Additionally presented with low back pain and bilateral foot pain with pain rated 10/10and associated mild shortness of breath. Pain control during visit. Recent hospitalization noted; patient discharged home. Referral to [facility] Home Connections made for outpt f/u. Upcoming encounter: [facility]. Social Work involvement during prior admission included: NA. Pt seen by ELVIS for dc planning. Review of discharge summary indicates: pt [facility]. Per chart review, pt made scheduled apt. Pt transferred to [facility] from [facility] early on 02/15. Current admission may be [...] completed. Pt seen by Dr. Gonzalez with [facility] yesterday, 02/14. Message to BOUCHRA Steen with Dr. Gonzalez's group to discuss case. Active treatment plan located in [facility]. Message to treatment team, including hospitalist MD, CM, RN, and floor SW. SW to continue to follow and assist with needs. Planning for readmission assessment with pt on 02/16. Erica Daniel LCSW [phone] 02/15/2025 3:53 PM * Plan of Care [...] 02/16/2025 documented as of this encounter Procedures Procedure [...] Results * eGFR (02/21/2025 2:14 PM CDT) Pathologist [facility] eGFR >90 >=60 mL/min/1. 73 m2 Comment: [...] was last reviewed 2021. Testing performed by: [address] [address] Blood 02/21/2025 2:14 PM CDT 02/21/2025 2:29 PM CDT us Deana HO LAB BLOOD ORDERABLES Final Re sult [facility] Department [place] [address] * (ABNORMAL) Differential, auto (02/21/2025 2:14 PM CDT) Neutrophil abs 5.30 1.50 - 6.50 K/cumm Comment:Testing performed by : [address] [address] Imm gran abs 0.03 0.00 - 0.10 K/cumm [facility] Comment:Testing performed by : [address] [address] Lymphocyte abs 2.98 0.80 - 3.30 K/cumm [facility] Comment:Testing performed by : [address] [address] Monocyte abs 1.17(H) 0.20 - 0.80 K/cumm [facility] Comment:Testing performed by : [address] [address] Eosinophil abs 0.15 0.00 - 0.50 K/cumm [facility] Comment:Testing performed by : [address] [address] Basophil abs 0.05 0.00 - 0.10 K/cumm [facility] Comment:Testing performed by : [address] [address] Neutrophil pct 54.8 % [facility] Comment: Interpretive Data Percent cell count reference ranges are not reported, since discordance with absolute values may lead to misinterpretation of CBC data. Current Interpretive Data was last revised on 2017. Testing performed by: [address] [address] Imm gran pct 0.3 % [facility] Comment: Interpretive Data Percent cell count reference ranges are not reported, since discordance with absolute values may lead to misinterpretation of CBC data. Current Interpretive Data was last revised on 2017. Testing performed by: [address] [address] Lymphocyte pct 30.8 % [facility] Comment: Interpretive Data Percent cell count reference ranges are not reported, since discordance with absolute values may lead to misinterpretation of CBC data. Current Interpretive Data was last revised on 2017. Testing performed by: [address] [address] Monocyte pct 12.1 % [facility] Comment: Interpretive Data Percent cell count reference ranges are not reported, since discordance with absolute values may lead to misinterpretation of CBC data. Current Interpretive Data was last revised on 2017. Testing performed by: [address] [address] Eosinophil pct 1.5 % [facility] Comment: Interpretive Data Percent cell count reference ranges are not reported, since discordance with absolute values may lead to misinterpretation of CBC data. Current Interpretive Data was last revised on 2017. Testing performed by: [address] [address] Basophil pct 0.5 % [facility] Comment: Interpretive Data Percent cell count reference ranges are not reported, since discordance with absolute values may lead to misinterpretation of CBC data. Current Interpretive Data was last revised on 2017. Testing performed by: [address] [address] Blood 02/21/2025 2:14 PM CDT 02/21/2025 2:29 PM CDT us Deana HO LAB BLOOD ORDERABLES Final Re sult Performing Organization Address City/[facility] Co de Phone Number [address] [place] [address] * (ABNORMAL) Lactate dehydrogenase (LD) (02/21/2025 2:14 PM CDT) Lactate dehydrogenase (LDH) 407(H) 100 - 250 Units/L Comment:Testing performed by : [address] [address] Blood 02/21/2025 2:14 PM CDT 02/21/2025 2:29 PM CDT Ezequiel Carrizales MD LAB BLOOD ORDERABL ES Final Result Performing Organization Address [facility] Co de Phone Number [address] [place] [address] * (ABNORMAL) Comprehensive metabolic panel (02/21/2025 2:14 PM CDT) Pathologist [facility] Sodium 137 135 - 145 mmol/L Comment:Testing performed by : [address] [address] Potassium, pl 3.3 3.3 - 4.9 mmol/L [facility] Comment:Testing performed by : [address] [address] Chloride 102 97 - 110 mmol/L [facility] Comment:Testing performed by : [address] [address] CO2 24 22 - 32 mmol/L [facility] Comment:Testing performed by : [address] [address] Anion gap 11 2 - 15 mmol/L [facility] Comment:Testing performed by : [address] [address] BUN 3(L) 6 - 25 mg/dL [facility] Comment:Testing performed by : [address] [address] Creatinine 0.40(L) 0.80 - 1.30 mg/dL [facility] Comment:Testing performed by : [address] [address] Glucose 94 70 - 199 mg/dL [facility] Comment: Interpretive Data Fasting glucose >/= [...] was last revised 2022. Testing performed by: [address] [address] Calcium 8.7 8.5 - 10.3 mg/dL [facility] Comment:Testing performed by : [address] [address] Bilirubin, total 4.4(H) 0.1 - 1.2 mg/dL [facility] Comment:Testing performed by : [address] [address] Protein, pl 7.5 6.5 - 8.5 g/dL [facility] Comment:Testing performed by : [address] [address] Albumin 4.1 3.5 - 5.0 g/dL [facility] Comment:Testing performed by : [address] [address] Alk phos 276(H) 40 - 130 Units/L [facility] Comment:Testing performed by : [address] [address] ALT 26 7 - 55 Units/L [facility] Comment:Testing performed by : [address] [address] AST 36 10 - 50 Units/L [facility] Comment:Testing performed by : [address] [address] Blood 02/21/2025 2:14 PM CDT 02/21/2025 2:29 PM CDT Deana Crandall PA LAB BLOOD ORDERABLES Final Re sult Performing Organization Address [facility] Co de Phone Number [address] [address] * (ABNORMAL) Reticulocyte Count (02/21/2025 2:14 PM CDT) Retics, absolute 369(H) 20 - 87 K/cumm Comment:Testing performed by : [address] [address] Retics 13.9(H) 0.4 - 2.9 % [facility] Comment:Testing performed by : [address] [address] Reticulocyte Hgb 31.6 30.5 - 38.0 pg [facility] Comment:Testing performed by : [address] [address] Blood 02/21/2025 2:14 PM CDT 02/21/2025 2:29 PM CDT Kassy George BARKER PEELER LAB BLOOD ORDERABLES Final Re sult Performing Organization Address [facility] Co de Phone Number [address] [address] * (ABNORMAL) CBC with auto differential (02/21/2025 2:14 PM CDT) Pathologist [facility] WBC 9.68 3.80 - 9.90 K/cumm Comment:Testing performed by : [address] [address] Hgb 8.5(L) 13.0 - 17.5 g/dL [facility] SHETTY Comment:Testing performed by : [address] [address] Hct 24.1(L) 38.9 - 50.3 % [facility] DIOGENES Comment:Testing performed by : [address] [address] Plt 349 150 - 400 K/cumm [facility] SHETTY Comment:Testing performed by : [address] [address] MPV 10.1 9.1 - 12.3 fL [facility] SHETTY Comment:Testing performed by : [address] [address] RBC 2.65(L) 4.30 - 5.80 M/cumm [facility] Comment:Testing performed by : [address] [address] MCV 90.9 81.3 - 96.4 fL [facility] Comment:Testing performed by : [address] [address] MCH 32.1 27.1 - 33.3 pg [facility] SHETTY Comment:Testing performed by : [address] [address] MCHC 35.3 32.3 - 35.7 g/dL [facility] Comment:Testing performed by : [address] [address] RDW CV 21.8(H) 11.1 - 14.9 % [facility] Comment:Testing performed by : [address] [address] RDW SD 72.1(H) 35.7 - 48.1 fL [facility] Comment:Testing performed by : [address] [address] NRBC abs 0.15(H) 0.00 - 0.01 K/cumm [facility] Comment:Testing performed by : [address] [address] Blood 02/21/2025 2:14 PM CDT 02/21/2025 2:29 PM CDT us Deana HO LAB BLOOD ORDERABLES Final Re sult [facility] [address] [facility] Department [place] [address] * eGFR (02/20/2025 6:47 PM CDT) eGFR [...] was last reviewed 2021. Testing performed by: [address] [address] [address] Blood 02/20/2025 6:47 PM CDT 02/20/2025 6:56 PM CDT us Deana HO LAB BLOOD ORDERABLES Final Re sult [facility] [address] [facility] Department [place] [address] * (ABNORMAL) Lactate dehydrogenase (LD) (02/20/2025 6:47 PM CDT) Lactate dehydrogenase (LDH) 401(H) 100 - 250 Units/L Comment:Testing performed by : [address] [address] Blood 02/20/2025 6:47 PM CDT 02/20/2025 6:56 PM CDT us Ezequiel Carrizales MD LAB BLOOD ORDERABL ES Final Result [facility] [address] [facility] Department [place] [address] * (ABNORMAL) Comprehensive metabolic panel (02/20/2025 6:47 PM CDT) Sodium 139 135 - 145 mmol/L Comment:Testing performed by : [address] [address] Potassium, pl 3.5 3.3 - 4.9 mmol/L [facility] Comment:Testing performed by : [address] [address] Chloride 103 97 - 110 mmol/L [facility] Comment:Testing performed by : [address] [address] CO2 25 22 - 32 mmol/L [facility] Comment:Testing performed by : [address] [address] Anion gap 11 2 - 15 mmol/L [facility] Comment:Testing performed by : [address] [address] BUN 2(L) 6 - 25 mg/dL [facility] Comment:Testing performed by : [address] [address] Creatinine 0.44(L) 0.80 - 1.30 mg/dL [facility] Comment:Testing performed by : [address] [address] Glucose 99 70 - 199 mg/dL [facility] Comment: Interpretive [...] was last revised 2022. Testing performed by: [address] [address] Calcium 9.0 8.5 - 10.3 mg/dL [facility] Comment:Testing performed by : [address] [address] Bilirubin, total 4.5(H) 0.1 - 1.2 mg/dL [facility] Comment:Testing performed by : [address] [address] Protein, pl 7.4 6.5 - 8.5 g/dL [facility] Comment:Testing performed by : [address] [address] Albumin 4.2 3.5 - 5.0 g/dL [facility] Comment:Testing performed by : [address] [address] Alk phos 286(H) 40 - 130 Units/L [facility] Comment:Testing performed by : [address] [address] ALT 32 7 - 55 Units/L [facility] Comment:Testing performed by : [address] [address] AST 49 10 - 50 Units/L [facility] Comment:Testing performed by : [address] [address] Blood 02/20/2025 6:47 PM CDT 02/20/2025 6:56 PM CDT Deana HO LAB BLOOD ORDERABLES Final Re sult [facility] [address] [facility] Department [place] [address] * eGFR (02/18/2025 12:20 PM CDT) eGFR [...] was last reviewed 2021. Testing performed by: [address] [address] Blood 02/18/2025 12:2 0 PM CDT 02/18/2025 12:37 PM CDT us Deana HO LAB BLOOD ORDERABLES Final Re sult [facility] [address] [facility] Department of Laboratories [place], [place] [id number] * (ABNORMAL) Differential, auto (02/18/2025 12:20 PM CDT) Neutrophil abs 5.20 1.50 - 6.50 K/cumm Comment:Testing performed by : [address] [address] Imm gran abs 0.06 0.00 - 0.10 K/cumm [facility] Comment:Testing performed by : [address] [address] Lymphocyte abs 3.74(H) 0.80 - 3.30 K/cumm [facility] Comment:Testing performed by : [address] [address] Monocyte abs 1.06(H) 0.20 - 0.80 K/cumm [facility] Comment:Testing performed by : [address] [address] Eosinophil abs 0.41 0.00 - 0.50 K/cumm [facility] Comment:Testing performed by : [address] [address] Basophil abs 0.06 0.00 - 0.10 K/cumm [facility] Comment:Testing performed by : [address] [address] Neutrophil pct 49.3 % [facility] Comment: Interpretive Data Percent cell count reference ranges are not reported, since discordance with absolute values may lead to misinterpretation of CBC data. Current Interpretive Data was last revised on 2017. Testing performed by: [address] [address] Imm gran pct 0.6 % [facility] Comment: Interpretive Data Percent cell count reference ranges are not reported, since discordance with absolute values may lead to misinterpretation of CBC data. Current Interpretive Data was last revised on 2017. Testing performed by: [address] [address] Lymphocyte pct 35.5 % [facility] Comment: Interpretive Data Percent cell count reference ranges are not reported, since discordance with absolute values may lead to misinterpretation of CBC data. Current Interpretive Data was last revised on 2017. Testing performed by: [address] [address] Monocyte pct 10.1 % [facility] Comment: Interpretive Data Percent cell count reference ranges are not reported, since discordance with absolute values may lead to misinterpretation of CBC data. Current Interpretive Data was last revised on 2017. Testing performed by: [address] [address] Eosinophil pct 3.9 % [facility] Comment: Interpretive Data Percent cell count reference ranges are not reported, since discordance with absolute values may lead to misinterpretation of CBC data. Current Interpretive Data was last revised on 2017. Testing performed by: [address] [address] Basophil pct 0.6 % [facility] Comment: Interpretive Data Percent cell count reference ranges are not reported, since discordance with absolute values may lead to misinterpretation of CBC data. Current Interpretive Data was last revised on 2017. Testing performed by: [address] [address] Blood 02/18/2025 12:2 0 PM CDT 02/18/2025 12:37 PM CDT Deana HO LAB BLOOD ORDERABLES Final Re sult Performing Organization Address City/[facility]/ZIP Co de Phone Number [facility] [place] [address] * (ABNORMAL) Lactate dehydrogenase (LD) (02/18/2025 12:20 PM CDT) Lactate dehydrogenase (LDH) 443(H) 100 - 250 Units/L Comment:Testing performed by : [address] [address] Blood 02/18/2025 12:2 0 PM CDT 02/18/2025 12:37 PM CDT Ezequiel Carrizales MD LAB BLOOD ORDERABL ES Final Result Performing Organization Address [facility] Co de Phone Number KENYETTA[address] [address] * (ABNORMAL) Comprehensive metabolic panel (02/18/2025 12:20 PM CDT) Pathologist [facility] Sodium 138 135 - 145 mmol/L Comment:Testing performed by : [address] [address] Potassium, pl 3.3 3.3 - 4.9 mmol/L [facility] Comment:Testing performed by : [address] [address] Chloride 103 97 - 110 mmol/L [facility] Comment:Testing performed by : [address] [address] CO2 24 22 - 32 mmol/L [facility] Comment:Testing performed by : [address] [address] Anion gap 11 2 - 15 mmol/L [facility] Comment:Testing performed by : [address] [place]., [address] BUN <2(L) 6 - 25 mg/dL [facility] Comment:Testing performed by : [address] [address] Creatinine 0.40(L) 0.80 - 1.30 mg/dL [facility] Comment:Testing performed by : [address] [address] Glucose 112 70 - 199 mg/dL [facility] Comment: Interpretive Data Fasting glucose >/= [...] was last revised 2022. Testing performed by: [address] [address] Calcium 8.6 8.5 - 10.3 mg/dL [facility] Comment:Testing performed by : [address] [address] Bilirubin, total 4.9(H) 0.1 - 1.2 mg/dL [facility] Comment:Testing performed by : [address] [address] Protein, pl 6.9 6.5 - 8.5 g/dL [facility] Comment:Testing performed by : [address] [address] Albumin 4.0 3.5 - 5.0 g/dL [facility] Comment:Testing performed by : [address] [address] Alk phos 274(H) 40 - 130 Units/L [facility] Comment:Testing performed by : [address] [address] ALT 26 7 - 55 Units/L [facility] Comment:Testing performed by : [address] [address] AST 39 10 - 50 Units/L [facility] Comment:Testing performed by : [address] [address] Blood 02/18/2025 12:2 0 PM CDT 02/18/2025 12:37 PM CDT Deana Crandall PA LAB BLOOD ORDERABLES Final Re sult Performing Organization Address [facility] Co de Phone Number [address] [place] [address] * (ABNORMAL) Reticulocyte Count (02/18/2025 12:20 PM CDT) Pathologist [facility] Retics, absolute 457(H) 20 - 87 K/cumm Comment:Testing performed by : [address] [address] Retics 18.3(H) 0.4 - 2.9 % [facility] Comment:Testing performed by : [address] [address] Reticulocyte Hgb 35.1 30.5 - 38.0 pg [facility] Comment:Testing performed by : [address] [address] Blood 02/18/2025 12:2 0 PM CDT 02/18/2025 12:37 PM CDT Kassy George BARKER PEELER LAB BLOOD ORDERABLES Final Re sult Performing Organization Address [facility] Co de Phone Number [address] [place] [address] * (ABNORMAL) CBC with auto differential (02/18/2025 12:20 PM CDT) [facility] WBC 10.53(H) 3.80 - 9.90 K/cumm Comment:Testing performed by : [address] [address] Hgb 7.9(L) 13.0 - 17.5 g/dL [facility] Comment:Testing performed by : [address] [address] Hct 23.2(L) 38.9 - 50.3 % [facility] Comment:Testing performed by : [address] [address] Plt 297 150 - 400 K/cumm [facility] Comment:Testing performed by : [address] [address] MPV 9.9 9.1 - 12.3 fL [facility] Comment:Testing performed by : [address] [address] RBC 2.50(L) 4.30 - 5.80 M/cumm [facility] Comment:Testing performed by : [address] [address] MCV 92.8 81.3 - 96.4 fL [facility] Comment:Testing performed by : [address] [address] MCH 31.6 27.1 - 33.3 pg [facility] Comment:Testing performed by : [address] [address] MCHC 34.1 32.3 - 35.7 g/dL [facility] Comment:Testing performed by : [address] [address] RDW CV 23.6(H) 11.1 - 14.9 % [facility] Comment:Testing performed by : [address], [address] RDW SD 77.2(H) 35.7 - 48.1 fL [facility] Comment:Testing performed by : [address] [address] NRBC abs 0.21(H) 0.00 - 0.01 K/cumm [facility] Comment:Testing performed by : [address] [address] Blood 02/18/2025 12:2 0 PM CDT 02/18/2025 12:37 PM CDT Deana HO LAB BLOOD ORDERABLES Final Re sult Performing Organization Address [facility] Co de Phone Number [facility] [address] [employer], [place] [id number] * eGFR (02/17/2025 1:04 PM CDT) eGFR [...] was last reviewed 2021. Testing performed by: [address] [address] Blood 02/17/2025 1:04 PM CDT 02/17/2025 1:07 PM CDT Deana HO LAB BLOOD ORDERABLES Final Re sult Performing Organization Address City/[facility]/ZIP Co de Phone Number [facility] [address] [facility] [place] [address] * (ABNORMAL) Differential, auto (02/17/2025 1:04 PM CDT) Neutrophil abs 3.70 1.50 - 6.50 K/cumm Comment:Testing performed by : [address] [address] Imm gran abs 0.08 0.00 - 0.10 K/cumm [facility] Comment:Testing performed by : [address], [place]., [address] Lymphocyte abs 3.71(H) 0.80 - 3.30 K/cumm [facility] Comment:Testing performed by : [address], [place]., [address] Monocyte abs 1.31(H) 0.20 - 0.80 K/cumm [facility] Comment:Testing performed by : [address], [place]., [address] Eosinophil abs 0.43 0.00 - 0.50 K/cumm [facility] Comment:Testing performed by : [address] [address] Basophil abs 0.07 0.00 - 0.10 K/cumm [facility] Comment:Testing performed by : [address] [address] Neutrophil pct 39.7 % [facility] Comment: Interpretive Data Percent cell count reference ranges are not reported, since discordance with absolute values may lead to misinterpretation of CBC data. Current Interpretive Data was last revised on 2017. Testing performed by: [address] [address] Imm gran pct 0.9 % [facility] Comment: Interpretive Data Percent cell count reference ranges are not reported, since discordance with absolute values may lead to misinterpretation of CBC data. Current Interpretive Data was last revised on 2017. Testing performed by: [address] [address] Lymphocyte pct 39.9 % [facility] Comment: Interpretive Data Percent cell count reference ranges are not reported, since discordance with absolute values may lead to misinterpretation of CBC data. Current Interpretive Data was last revised on 2017. Testing performed by: [address] [address] Monocyte pct 14.1 % [facility] Comment: Interpretive Data Percent cell count reference ranges are not reported, since discordance with absolute values may lead to misinterpretation of CBC data. Current Interpretive Data was last revised on 2017. Testing performed by: [address] [address] Eosinophil pct 4.6 % [facility] Comment: Interpretive Data Percent cell count reference ranges are not reported, since discordance with absolute values may lead to misinterpretation of CBC data. Current Interpretive Data was last revised on 2017. Testing performed by: [address] [address] Basophil pct 0.8 % [facility] Comment: Interpretive Data Percent cell count reference ranges are not reported, since discordance with absolute values may lead to misinterpretation of CBC data. Current Interpretive Data was last revised on 2017. Testing performed by: [address] [address] Blood 02/17/2025 1:04 PM CDT 02/17/2025 1:07 PM CDT us Deana HO LAB BLOOD ORDERABLES Final Re sult Performing Organization Address City/[facility]/ZIP Co de Phone Number [address] [employer] [place] [address] * Thyroid Function [place] (02/17/2025 1:04 PM CDT) TSH 3.82 0.30 - 4.20 mcIUnit/mL Comment:Testing performed by : [address] [address] Blood 02/17/2025 1:04 PM CDT 02/17/2025 1:07 PM CDT us Ezequiel Carrizales MD LAB BLOOD ORDERABL ES Final Result Performing Organization Address City/[facility]/ZIP Co de Phone Number [address] [place] [address] * (ABNORMAL) Comprehensive metabolic panel (02/17/2025 1:04 PM CDT) Sodium 139 135 - 145 mmol/L Comment:Testing performed by : [address] [place]., [address] Potassium, pl 3.8 3.3 - 4.9 mmol/L [facility] Comment:Testing performed by : [address] [address] Chloride 104 97 - 110 mmol/L [facility] Comment:Testing performed by : [address], [place]., [address] CO2 24 22 - 32 mmol/L [facility] Comment:Testing performed by : [address] [address] Anion gap 11 2 - 15 mmol/L [facility] Comment:Testing performed by : [address], [place]., [address] BUN <2(L) 6 - 25 mg/dL [facility] Comment:Testing performed by : [address], [place]., [address] Creatinine 0.50(L) 0.80 - 1.30 mg/dL [facility] Comment:Testing performed by : [address] [address] Glucose 125 70 - 199 mg/dL [facility] Comment: Interpretive Data Fasting glucose >/= [...] was last revised 2022. Testing performed by: [address] [address] Calcium 8.2(L) 8.5 - 10.3 mg/dL [facility] Comment:Testing performed by : [address] [address] Bilirubin, total 4.7(H) 0.1 - 1.2 mg/dL [facility] Comment:Testing performed by : [address] [address] Protein, pl 7.0 6.5 - 8.5 g/dL [facility] Comment:Testing performed by : [address] [address] Albumin 4.1 3.5 - 5.0 g/dL [facility] Comment:Testing performed by : [address] [address] Alk phos 261(H) 40 - 130 Units/L [facility] Comment:Testing performed by : [address] [address] ALT 31 7 - 55 Units/L [facility] Comment:Testing performed by : [address] [address] AST 52(H) 10 - 50 Units/L [facility] Comment:Testing performed by : [address] [address] Blood 02/17/2025 1:04 PM CDT 02/17/2025 1:07 PM CDT us Deana HO LAB BLOOD ORDERABLES Final Re sult [facility] [address] [facility] Department [place] [address] * (ABNORMAL) Reticulocyte Count (02/17/2025 1:04 PM CDT) Retics, absolute 473(H) 20 - 87 K/cumm Comment: Retic verified by dilution. Testing performed by: [address] [address] Retics 18.9(H) 0.4 - 2.9 % [facility] Comment: Retic verified by dilution. Testing performed by: [address] [address] Reticulocyte Hgb 31.5 30.5 - 38.0 pg [facility] Comment:Testing performed by : [address] [address] Blood 02/17/2025 1:04 PM CDT 02/17/2025 1:07 PM CDT us Kassy George BARKER PEELER LAB BLOOD ORDERABLES Final Re sult [facility] [address] [facility] Department [place] [address] * (ABNORMAL) CBC with auto differential (02/17/2025 1:04 PM CDT) WBC 9.30 3.80 - 9.90 K/cumm Comment:Testing performed by : [address] [address] Hgb 7.8(L) 13.0 - 17.5 g/dL [facility] Comment:Testing performed by : [address] [address] Hct 22.7(L) 38.9 - 50.3 % [facility] Comment:Testing performed by : [address] [address] Plt 294 150 - 400 K/cumm [facility] Comment:Testing performed by : [address] [address] MPV 10.1 9.1 - 12.3 fL [facility] Comment:Testing performed by : [address] [address] RBC 2.50(L) 4.30 - 5.80 M/cumm [facility] Comment:Testing performed by : [address] [address] MCV 90.8 81.3 - 96.4 fL [facility] Comment:Testing performed by : [address] [address] MCH 31.2 27.1 - 33.3 pg [facility] Comment:Testing performed by : [address] [address] MCHC 34.4 32.3 - 35.7 g/dL [facility] Comment:Testing performed by : [address] [address] RDW CV 23.0(H) 11.1 - 14.9 % [facility] Comment:Testing performed by : [address] [address] RDW SD 73.4(H) 35.7 - 48.1 fL [facility] Comment:Testing performed by : [address] [address] NRBC abs 0.19(H) 0.00 - 0.01 K/cumm [facility] Comment:Testing performed by : [address] [address] Morphologic Screen Results confirmed by manual morphology review. [facility] Comment:Testing performed by : [address], [address] Blood 02/17/2025 1:04 PM CDT 02/17/2025 1:07 PM CDT Deana Crandall PA LAB BLOOD ORDERABLES Final Re sult Performing Organization Address [facility] de Phone Number [facility] [address] Department of Laboratories [place], [place] [id number] * (ABNORMAL) Reticulocyte Count (02/16/2025 10:46 AM CDT) Retics, absolute 278(H) 20 - 87 K/cumm Comment:Testing performed by : [address] [address] Retics 19.0(H) 0.4 - 2.9 % [facility] Comment:Testing performed by : [address] [address] Reticulocyte Hgb 29.4(L) 30.5 - 38.0 pg [facility] Comment:Testing performed by : [address] [address] Blood 02/16/2025 10:4 6 AM CDT 02/16/2025 10:56 AM CDT Kassy George BARKER PEELER LAB BLOOD ORDERABLES Final Re sult Performing Organization Address [facility]/State/ZIP Co de Phone Number [facility] [address] [facility] Department [place] [address] * (ABNORMAL) Differential, auto (02/16/2025 10:46 AM CDT) Neutrophil abs 4.16 1.50 - 6.50 K/cumm Comment:Testing performed by : [address] [address] Imm gran abs 0.05 0.00 - 0.10 K/cumm [facility] Comment:Testing performed by : [address] [address] Lymphocyte abs 4.15(H) 0.80 - 3.30 K/cumm [facility] Comment:Testing performed by : [address] [address] Monocyte abs 1.13(H) 0.20 - 0.80 K/cumm [facility] Comment:Testing performed by : [address] [address] Eosinophil abs 0.41 0.00 - 0.50 K/cumm [facility] Comment:Testing performed by : [address] [address] Basophil abs 0.07 0.00 - 0.10 K/cumm [facility] Comment:Testing performed by : [address] [address] Neutrophil pct 41.8 % [facility] Comment: Interpretive Data Percent cell count reference ranges are not reported, since discordance with absolute values may lead to misinterpretation of CBC data. Current Interpretive Data was last revised on 2017. Testing performed by: [address] [address] Imm gran pct 0.5 % [facility] Comment: Interpretive Data Percent cell count reference ranges are not reported, since discordance with absolute values may lead to misinterpretation of CBC data. Current Interpretive Data was last revised on 2017. Testing performed by: [address] [address] Lymphocyte pct 41.6 % [facility] Comment: Interpretive Data Percent cell count reference ranges are not reported, since discordance with absolute values may lead to misinterpretation of CBC data. Current Interpretive Data was last revised on 2017. Testing performed by: [address] [address] Monocyte pct 11.3 % [facility] Comment: Interpretive Data Percent cell count reference ranges are not reported, since discordance with absolute values may lead to misinterpretation of CBC data. Current Interpretive Data was last revised on 2017. Testing performed by: [address] [address] Eosinophil pct 4.1 % [facility] Comment: Interpretive Data Percent cell count reference ranges are not reported, since discordance with absolute values may lead to misinterpretation of CBC data. Current Interpretive Data was last revised on 2017. Testing performed by: [address] [address] Basophil pct 0.7 % [facility] Comment: Interpretive Data Percent cell count reference ranges are not reported, since discordance with absolute values may lead to misinterpretation of CBC data. Current Interpretive Data was last revised on 2017. Testing performed by: [address] [address] Blood 02/16/2025 10:4 6 AM CDT 02/16/2025 10:56 AM CDT Ezequiel Carrizales MD LAB BLOOD ORDERABL ES Final Result [facility] [address] [facility] Department [place] [address] * (ABNORMAL) CBC with auto differential (02/16/2025 10:46 AM CDT) WBC 9.97(H) 3.80 - 9.90 K/cumm Comment:Testing performed by : [address] [address] Hgb 7.8(L) 13.0 - 17.5 g/dL [facility] Comment:Testing performed by : [address] [address] Hct 23.0(L) 38.9 - 50.3 % [facility] Comment:Testing performed by : [address] [address] Plt 280 150 - 400 K/cumm [facility] Comment:Testing performed by : [address] [address] MPV 10.1 9.1 - 12.3 fL [facility] Comment:Testing performed by : [address], [address] RBC 2.50(L) 4.30 - 5.80 M/cumm [facility] Comment:Testing performed by : [address], [address] MCV 92.0 81.3 - 96.4 fL [facility] Comment:Testing performed by : [address] [address] MCH 31.2 27.1 - 33.3 pg [facility] Comment:Testing performed by : [address], [address] MCHC 33.9 32.3 - 35.7 g/dL [facility] Comment:Testing performed by : [address], [address] RDW CV 22.7(H) 11.1 - 14.9 % [facility] Comment:Testing performed by : [address], [address] RDW SD 74.2(H) 35.7 - 48.1 fL [facility] Comment:Testing performed by : [address] [address] NRBC abs 0.13(H) 0.00 - 0.01 K/cumm [facility] Comment:Testing performed by : [address], [address] Morphologic Screen Results confirmed by manual morphology review. [facility] Comment:Testing performed by : [address], [address] Blood 02/16/2025 10:4 6 AM CDT 02/16/2025 10:56 AM CDT Ezequiel Carrizales MD LAB BLOOD ORDERABL ES Edited Result - Final Performing Organization Address City/[facility]/ZIP Co de Phone Number [facility] SHETTY [address] [facility] Department [place] [address] * Blood culture Blood (02/16/2025 10:02 AM CDT) Report Final Report: No growth Comment:Testing performed by : [facility], [address] [place]., [address] Blood 02/16/2025 10:0 2 AM CDT 02/16/2025 2:03 PM CDT Narrative KENYETTAALEJANDRA - 02/20/2025 4:00 PM CDT From a [...] performance characteristics have been verified by the [facility]. For questions about this culture, contact the Microbiology Laboratory at [phone]. Interpretive data was last revised on 24. Deana HO LAB MICROBIOLOGY - GENERAL OR DERABLES Final Result [facility] [address] [place] [address] * (ABNORMAL) Lactate dehydrogenase (LD) (02/16/2025 9:50 AM CDT) [facility] Lactate dehydrogenase (LDH) 464(H) 100 - 250 Units/L Comment: Hemolyzed; result may be falsely elevated Testing performed by: [address] [address] Blood 02/16/2025 9:50 AM CDT 02/16/2025 9:55 AM CDT us Ezequiel Carrizales MD LAB BLOOD ORDERABL ES Final Result [facility] [address] [place] [address] * eGFR (02/16/2025 9:50 AM CDT) [facility] eGFR >90 [...] reviewed 2021. Testing performed by: [facility], [address] [place] [address]., [address] Blood 02/16/2025 9:50 AM CDT 02/16/2025 9:55 AM CDT us Deana HO LAB BLOOD ORDERABLES Final Re sult [facility] [address] [facility] Department [place] [address] * (ABNORMAL) Comprehensive metabolic panel (02/16/2025 9:50 AM CDT) Sodium 138 135 - 145 mmol/L Comment:Testing performed by : [address] [address] Potassium, pl 3.8 3.3 - 4.9 mmol/L [facility] Comment: Hemolyzed; Potassium value may be falsely elevated by as much as 1.0 mmol/L. Suggest redraw and reanalysis. Testing performed by: [address] [address] Chloride 104 97 - 110 mmol/L [facility] Comment:Testing performed by : [address] [address] CO2 23 22 - 32 mmol/L [place] Comment:Testing performed by : [address] [address] Anion gap 11 2 - 15 mmol/L [place] Comment:Testing performed by : [address] [address] BUN 2(L) 6 - 25 mg/dL [place] Comment:Testing performed by : [address] [address] Creatinine 0.52(L) 0.80 - 1.30 mg/dL [place] Comment:Testing performed by : [address] [address] Glucose 104 70 - 199 mg/dL [place] Comment: Interpretive [...] was last revised 2022. Testing performed by: [address] [address] Calcium 8.5 8.5 - 10.3 mg/dL [place] Comment:Testing performed by : [address] [address] Bilirubin, total 5.6(H) 0.1 - 1.2 mg/dL [facility] Comment:Testing performed by : [address] [address] Protein, pl 6.7 6.5 - 8.5 g/dL [place] Comment:Testing performed by : [address] [address] Albumin 3.9 3.5 - 5.0 g/dL [facility] Comment:Testing performed by : [address] [address] Alk phos 260(H) 40 - 130 Units/L [facility] Comment:Testing performed by : [address] [address] ALT 40 7 - 55 Units/L [place] Comment:Testing performed by : [address] [address] AST 61(H) 10 - 50 Units/L [facility] Comment: Hemolyzed; result may be falsely elevated Testing performed by: [address] [address] Blood 02/16/2025 9:50 AM CDT 02/16/2025 9:55 AM CDT us Deana HO LAB BLOOD ORDERABLES Final Re sult [facility] SHETT[facility] [address] [facility] Department of Laboratories [place], [place] [id number] * Blood culture Blood (02/16/2025 9:50 AM CDT) Report Final Report: No growth Comment:Testing performed by : [facility], [address] [facility], [place]., [address] Blood 02/16/2025 9:50 AM CDT 02/16/2025 2:06 PM CDT Narrative [facility] SHETT[facility] - 02/20/2025 4:00 PM CDT Collection->Peripheral 1FA [...] performance characteristics have been verified by the [facility]. For questions about this culture, contact the Microbiology Laboratory at [phone]. Interpretive data was last revised on 24. Deana HO LAB MICROBIOLOGY - GENERAL OR DERABLES Final Result [facility] [address] [facility] Department [place] [address] * CT Chest PE (CTA) Abdomen Pelvis [...] Anne Merchant M.D. FT: FT Report ID: [id number] Reading Location: [id number] Procedure Note Anne Hernandes MD - 02/15/2025 [...] Anne Merchant M.D. FT: FT Report ID: [id number] Reading Location: [place] [address] us Deana HO IMG CT PROCEDURES Final Resul t * eGFR [...] reviewed 2021. Testing performed by: [facility], [address] [place] [address]., [address] Blood 02/15/2025 3:53 PM CDT 02/15/2025 4:01 PM CDT us Ezequiel Carrizales MD LAB BLOOD ORDERABL ES Final Result [facility] [address] [facility] Department [place] [address] * (ABNORMAL) Comprehensive metabolic panel (02/15/2025 3:53 PM CDT) Sodium 142 135 - 145 mmol/L Comment:Testing performed by : [address] [address] Potassium, pl 3.0(L) 3.3 - 4.9 mmol/L [facility] Comment:Testing performed by : [address], [place]., [address] Chloride 106 97 - 110 mmol/L [facility] Comment:Testing performed by : [address], [place]., [address] CO2 24 22 - 32 mmol/L [facility] Comment:Testing performed by : [address], [place]., [address] Anion gap 12 2 - 15 mmol/L [facility] Comment:Testing performed by : [address], [place]., [address] BUN 3(L) 6 - 25 mg/dL [facility] Comment:Testing performed by : [address] [address] Creatinine 0.60(L) 0.80 - 1.30 mg/dL [facility] Comment:Testing performed by : [address] [address] Glucose 121 70 - 199 mg/dL [facility] Comment: Interpretive Data Fasting glucose >/= [...] was last revised 2022. Testing performed by: [address] [address] Calcium 8.2(L) 8.5 - 10.3 mg/dL [facility] Comment:Testing performed by : [address] [address] Bilirubin, total 6.0(H) 0.1 - 1.2 mg/dL [facility] Comment:Testing performed by : [address] [address] Protein, pl 6.7 6.5 - 8.5 g/dL [place] Comment:Testing performed by : [address] [address] Albumin 3.8 3.5 - 5.0 g/dL [facility] Comment:Testing performed by : [address] [address] Alk phos 261(H) 40 - 130 Units/L [facility] Comment:Testing performed by : [address] [address] ALT 36 7 - 55 Units/L [facility] Comment:Testing performed by : [address], [address] AST 48 10 - 50 Units/L [facility] Comment:Testing performed by : [address], [address] Blood 02/15/2025 3:53 PM CDT 02/15/2025 4:01 PM CDT Ezequiel Carrizales MD LAB BLOOD ORDERABL ES Final Result Performing Organization Address [facility]/ZIP Co de Phone Number [address] [place] [address] * Sepsis Lactate w/ Reflex (02/15/2025 3:41 PM CDT) Sepsis Lactate 1.4 0.7 - 2.0 mmol/L Comment:Testing performed by : [address] [address] Blood 02/15/2025 3:41 PM CDT 02/15/2025 3:59 PM CDT us Deana HO LAB BLOOD ORDERABLES Final Re sult Performing Organization Address City/[facility]/ZIP Co de Phone Number [address] [place] [address] * (ABNORMAL) Differential, auto (02/15/2025 2:20 PM CDT) Neutrophil abs 6.11 1.50 - 6.50 K/cumm Comment:Testing performed by : [address] [address] Imm gran abs 0.03 0.00 - 0.10 K/cumm [place] Comment:Testing performed by : [address] [address] Lymphocyte abs 4.59(H) 0.80 - 3.30 K/cumm [facility] Comment:Testing performed by : [address] [address] Monocyte abs 1.00(H) 0.20 - 0.80 K/cumm [facility] Comment:Testing performed by : [address] [address] Eosinophil abs 0.14 0.00 - 0.50 K/cumm [place] Comment:Testing performed by : [address] [address] Basophil abs 0.05 0.00 - 0.10 K/cumm [facility]:Testing performed by : [address] [address] Neutrophil pct 51.2 % [facility] Comment: Interpretive Data Percent cell count reference ranges are not reported, since discordance with absolute values may lead to misinterpretation of CBC data. Current Interpretive Data was last revised on 2017. Testing performed by: [address] [address] Imm gran pct 0.3 % [facility] Comment: Interpretive Data Percent cell count reference ranges are not reported, since discordance with absolute values may lead to misinterpretation of CBC data. Current Interpretive Data was last revised on 2017. Testing performed by: [address] [address] Lymphocyte pct 38.5 % [facility] Comment: Interpretive Data Percent cell count reference ranges are not reported, since discordance with absolute values may lead to misinterpretation of CBC data. Current Interpretive Data was last revised on 2017. Testing performed by: [address] [address] Monocyte pct 8.4 % [facility] Comment: Interpretive Data Percent cell count reference ranges are not reported, since discordance with absolute values may lead to misinterpretation of CBC data. Current Interpretive Data was last revised on 2017. Testing performed by: [address] [address] Eosinophil pct 1.2 % [facility] Comment: Interpretive Data Percent cell count reference ranges are not reported, since discordance with absolute values may lead to misinterpretation of CBC data. Current Interpretive Data was last revised on 2017. Testing performed by: [address] [address] Basophil pct 0.4 % [facility] Comment: Interpretive Data Percent cell count reference ranges are not reported, since discordance with absolute values may lead to misinterpretation of CBC data. Current Interpretive Data was last revised on 2017. Testing performed by: [address] [address] Blood 02/15/2025 2:20 PM CDT 02/15/2025 2:26 PM CDT Ezequiel Carrizales MD LAB BLOOD ORDERABL ES Final Result [facility] [address] [facility] Department [place] [address] * (ABNORMAL) CBC with auto differential (02/15/2025 2:20 PM CDT) WBC 11.92(H) 3.80 - 9.90 K/cumm Comment:Testing performed by : [address] [address] Hgb 7.7(L) 13.0 - 17.5 g/dL [facility] Comment:Testing performed by : [address] [address] Hct 22.2(L) 38.9 - 50.3 % [facility] Comment:Testing performed by : [address], [address] Plt 292 150 - 400 K/cumm [place] Comment:Testing performed by : [address], [address] MPV 10.0 9.1 - 12.3 fL [place] Comment:Testing performed by : [address], [address] RBC 2.46(L) 4.30 - 5.80 M/cumm [facility] [facility] Comment:Testing performed by : [address], [address] MCV 90.2 81.3 - 96.4 fL [place] Comment:Testing performed by : [address], [address] MCH 31.3 27.1 - 33.3 pg [place] Comment:Testing performed by : [address], [address] MCHC 34.7 32.3 - 35.7 g/dL [place] Comment:Testing performed by : [address], [address] RDW CV 22.0(H) 11.1 - 14.9 % [facility] Comment:Testing performed by : [address], [address] RDW SD 71.7(H) 35.7 - 48.1 fL [place] Comment:Testing performed by : [address], [address] NRBC abs 0.09(H) 0.00 - 0.01 K/cumm [facility] Comment:Testing performed by : [address], [address] Blood 02/15/2025 2:20 PM CDT 02/15/2025 2:26 PM CDT us Ezequiel Carrizales MD LAB BLOOD ORDERABL ES Final Result [facility] [address] [facility] Department [place] [address] * Influenza A/B, RSV, and COVID-19 PCR Nasopharyngeal (02/15/2025 1:35 PM CDT) [facility] COVID-19 RNA Negative Negative Comment:Testing performed by : [address] [address] Influenza A RNA Negative Negative [facility] Comment:Testing performed by : [address] [address] Influenza B RNA Negative Negative [facility] Comment:Testing performed by : [address] [address] RSV RNA Negative Negative [facility] Comment: Interpretive data: Testing performed by [facility]. This test is performed using the [employer] Xpert Xpress CoV-2/Flu/RSV plus assay. This is a multiplex, real-time reverse transcriptase PCR assay intended for the qualitative detection of nucleic acid from SARS-CoV-2, influenza A, influenza B, and respiratory syncytial virus. This assay has been cleared by the [place] Food and Drug administration. The performance characteristics have been verified by the [facility]. Results must be considered in the clinical context, and a negative result does not rule out infection. Interpretive Data last revised 2023 Testing performed by: [address] [address] Nasopharyngeal 02/15/2025 1: 35 PM CDT 02/15/2025 1:43 PM CDT Narrative [facility] - 02/15/2025 2:25 PM CDT Is the Patient experiencing symptoms consistent with COVID?->Yes us Deana HO LAB MICROBIOLOGY - GENERAL OR DERABLES Final Result [facility] [address] [facility] Department [place] [address] * ECG 12 lead (02/15/2025 1:13 PM CDT) [facility] Ventricular Rate EKG/Min 82 BPM [facility] Atrial Rate 82 BPM [facility] AK-Interval (MSEC) 174 ms [facility] QRS-Interval (MSEC) 80 ms [facility] QT-Interval (MSEC) 404 ms [facility] QTc 472 ms [facility] P [place] 62 degrees [facility] R [place] 15 degrees [facility] T [place] 24 degrees [facility] Diagnosis Normal sinus rhythm Normal ECG When compared with ECG of 16-JAN-2025 14:47, Nonspecific T wave abnormality, improved in Inferior leads Nonspecific T wave abnormality no longer evident in Anterolateral leads Confirmed by KEVON BYRD M.D. ([id number]) on 02/15/2025 2:52:50 PM [facility] 02/15/2025 1:13 PM CDT 02/15/2025 2:52 PM CDT us Deana HO ECG ORDERABLES Final Result [facility] documented in this encounter Visit [...] 2.5 mg, nebulization, Every 6 hours PRN (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 coordinator), wheezing, Starting on Fri02/23/25 at 0321 Given 02/23/2025 3:26 AM CDT 2.5 mg albuterol HFA (PROVENTIL HFA,VENTOLIN HFA,PROAIR HFA) 90 mcg/actuation inhaler 2 puff 2 puff, inhalation, As needed, wheezing, q 20 min prn wheezing/SOB, Starting on Fri02/15/25 at 1223 albuterol HFA (PROVENTIL HFA,VENTOLIN HFA,PROAIR HFA) 90 mcg/actuation inhaler 2 puff 2 puff, inhalation, 4 times daily PRN (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 coordinator), wheezing, Starting on Fri02/15/25 at 1456, q [...] (premix) 100 mL/hr, intravenous, Continuous, Starting on Fri02/17/25 at 1130 Rate/Dose Verify 02/20/2025 3:57 PM [...] PRN, cough, Starting on Fri02/15/25 at 1155 naloxone (NARCAN) 0.4 mg/mL injection 0.4 mg [...] PRN, 2nd line for pain, Starting on [facility] 02/24/25 at 0703, May repeat in 1 hour [...] puff, inhalation, Every 4 hours while awake (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 coordinator), First dose on Fri02/15/25 at 1300, q [...] Given 02/23/2025 9:53 PM CDT 0.5 mg HYDROmorphone (DILAUDID) injection 0.5 [...] mg total) by mouth daily 12/09/2024 02/24/2025 oxyCODONE (ROXICODONE) 15 mg immediate release tabletIndications:Britton n Take 1 tablet (15 mg total) by mouth every 4 (four) hours for 10 days Stop Taking at Discharge 09/13/2023 02/24/2025 oxyCODONE (ROXICODONE) 20 mg tabletIndications:Britton n Take 1 tablet (20 mg total) by mouth 4 (four) times a day as needed for pain for up to 5 days Stop Taking at Discharge 11/06/2023 02/24/2025 oxyCODONE (ROXICODONE) 20 mg tablet Take 1 tablet (20 mg total) by mouth every 4 (four) hours for 4 days Stop Taking at Discharge 01/02/2024 02/24/2025 oxyCODONE (ROXICODONE) 5 mg immediate release tabletIndications:Britton n Take 2 tablets (10 mg total) by mouth every 4 (four) hours as needed for pain for up to 1 day Stop Taking at Discharge 01/18/2024 02/24/2025 albuterol HFA (PROVENTIL HFA,VENTOLIN HFA,PROAIR HFA) 90 mcg/actuation inhalerIndications:Br onchospasm Prevention Inhale 2 puffs every 6 (six) hours as needed for wheezing or shortness of breath Stop Taking at Discharge 12/09/2024 02/24/2025 naloxone (NARCAN) 4 mg/actuation spray,non-aerosolIndi cations:Opiate-Induce d Respiratory Depression,Opioid Toxicity,risk mitigation for opioid overdose Administer 1 spray into affected nostril(s) as needed for opioid reversal or respiratory depression Call 911. Administer a single spray in one nostril. Repeat every 3 minutes as needed if no or minimal response. Stop Taking at Discharge 12/09/2024 02/24/2025 diphenhydrAMINE (BENADRYL) 25 mg capsule Take 1 tablet/capsule (25 mg total) by mouth 4 (four) times a day as needed for itching or allergies Stop Taking at Discharge 01/18/2025 02/24/2025 hydrocortisone (CORTEF) 10 mg tablet Take 1 tablet (10 mg total) by mouth daily Stop Taking at Discharge 01/19/2025 02/24/2025 hydrocortisone (CORTEF) 5 mg tablet Take 1 tablet (5 mg total) by mouth nightly Stop Taking at Discharge 01/18/2025 02/24/2025 oxyCODONE ER (OxyCONTIN) 10 mg 12 hr abuse-deterrent tablet Take 1 tablet (10 mg total) by mouth every 12 (twelve) hours for 5 days Stop Taking at Discharge 01/18/2025 02/24/2025 polyethylene glycol (MIRALAX) 17 gram packetIndications:con stipation Take 1 packet (17 g total) by mouth daily as needed for constipation Stop Taking at Discharge 01/18/2025 02/24/2025 documented as of this encounter Active [...] refused) 0936 (Given - Provider: Betty Zuniga, BOUCHRA)1837 (Given - Provider: Betty Zuniga RN)2324 (Not Given - Provider: Janeth Nicholson RN - Reason: Patient/family refused) 1241 (Not Given - Provider: Rae Chase RN - Reason: Loss of IV access)1600 (Due) Continuous Medication Order 02/22/2025 02/23/2025 02/24/2025 dextrose 5% and sodium chloride 0.45% infusion (premix) 100 mL/hr, intravenous, Continuous, Starting on Fri02/17/25 at 1130 PRN Medication Order 02/22/2025 02/23/2025 02/24/2025 albuterol 2.5 mg/0.5 mL nebulizer solution 2.5 mg 2.5 mg, nebulization, Every 6 hours PRN (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 coordinator), wheezing, Starting on Fri02/23/25 at 0321 0326 (Given - Provider: Des Arellano, WEAVER DOBBY LOOM) albuterol HFA (PROVENTIL HFA,VENTOLIN HFA,PROAIR HFA) 90 mcg/actuation inhaler 2 puff 2 puff, inhalation, As needed, wheezing, q 20 min prn wheezing/SOB, Starting on Fri02/15/25 at 1223 albuterol HFA (PROVENTIL HFA,VENTOLIN HFA,PROAIR HFA) 90 mcg/actuation inhaler 2 puff 2 puff, inhalation, 4 times daily PRN (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 coordinator), wheezing, Starting on Fri02/15/25 at 1456, q [...] Indications: Pain 0818 (Given - Provider: Farrah Guillermo RN)1726 (Given - Provider: Farrah Guillermo RN) 0130 (Given - Provider: Janeth Nicholson RN)0935 (Given - Provider: Betty Zuniga RN)2352 (Given - Provider: Janeth Nicholson RN) 1110 (Given - Provider: Rae Chase RN) [...] documented as of this encounter Care Teams Nylon Operator Relationship Specialty Start Date End Date Laurent Gonzalez MD [address] [place] [address] PCP - General Hematology and Oncology 10/18/23 aRy Sainz MD [address] [facility] [address] [place] [address] 02/10/20 [place] [address] [facility] [address] [place] [address] Consulting Physician Family Medicine 05/05/22 Miscellaneous, Not In File 12/14/22 [place] [address] [facility] [address] [place] [address] Consulting Physician Orthopedic Surgery 08/18/24 documented as of this encounter
[2025-02-24] VITALS (7 sets, daily range): BP systolic 102–134; BP diastolic 72–98; PULSE 73–92; RESP 18–20; TEMP 36.6–36.7; O2SAT 95–99; BMI 35.2
--- NOTE | ~2025-02-24 | XR_ITS ---
EXAMINATION: XR chest 2V, 02/24/2025 14:15 CDT HISTORY: Sickle cell pain history of acute chest COMPARISON: No comparisons available. Technique: 2 views obtained. Findings: The lungs are clear, no effusion. No pneumothorax. Heart is normal size. Mediastinal and hilar contours are within normal limits. Bony thorax no acute abnormality. Impression: No acute cardiopulmonary abnormality. Reviewed, dictated and finalized at location P. Impression: No acute cardiopulmonary abnormality.
--- OUTSIDE RECORDS SUMMARY | 2025-02-24 12:53 | XMS_ITS | Clinical Summary ---
Author Organization [facility] Address [address] [place] [address] Care Team Providers Care Draw Fire Operator Name Role Phone Laurent Gonzalez MD Primary Care Provider [phone] Source Comments [facility],non-owned Affiliates and Associated Physician Practices is amultiple site organization consisting of ambulatory clinics and hospital sitesin [place], [place], [place] and [place]. This disclosure is being madepursuant to the Care Everywhere program and may not contain all information available regarding this patient. Last updated 18.[facility] Allergies Active Allergy Reactions Criticality Noted Date [...] infection consistent with improvement Follow up at [facility] at discharge Please re-consult p.r.n. Sickle cell [...] Encounters Date Type Department Care Team Description 02/16/2025 3:00 AM CDT Home Care Visit [facility] [address] [place] [address] , [address] [place] [address] Rachel Sofia MD Reiser, Dolores P, RN HOME CONNETIONS NON-ADMIT 02/15/2025 Home Care Visit [facility] [facility] , [address] [place] [phone] Alyson Leonard, RN TELEPHONE ENCOUNTER 01/29/2025 10:31 PM CDT - 02/13/2025 9:55 PM CDT Hospital Encounter [facility] [address] [place] [address] Mohamud Palacio MD Ghazal-Albar, MD Bismark Lott Salman, MD Syamala, MD Brandi Rosales, MD Samantha Comer, MD [facility] Discharge Disposition: Home or Self Care 01/29/2025 Travel 12/23/2024 11:02 PM CDT - 12/31/2024 11:06 AM CDT Hospital Encounter [facility] [address] [place] [address] Mohamud Palacio MD Makhoul, MD Raúl Oropeza Sandhya, MD Inampudi, MD Percy Internal [...] and heating? Not hard at all 02/11/2025 [facility] - Occupational Stress [...] or slept in a longterm (including now)? No 01/23/2024 Housing Stability Vital Sign Answer Samy e Recorded In the last 12 months, was t here a time when you were not able to pay the mortgage or rent on time? No 02/11/2025 In the past 12 months, how m any times have you moved where you were living? 0 02/11/2025 At any time in the past 12 m [facility], were you homeless or living in a longterm (including now)? No 02/11/2025 Sex and Gender Information Value Date Recorded Sex Assigned at Not on file Legal Sex Male 5:02 AM SHIP BOSS Gender Identity Not on file Sexual Orientation [...] Oxygen Concentration 21% 04/13/2023 8 :31 PM SHIP BOSS Weight 108.8 kg (239 lb 14.4 oz) [...] Name Priority Date/Time Associated Diagnosis Comments CARDIAC RHYTHM STRIP ORDER 02/15/2025 3:57 PM CDT CARDIAC EKG ORDER 02/15/2025 2:0 6 PM CDT RETIC COUNT Routine 02/10/2025 4:10 PM CDT [...] DIFFERENTIAL AM Draw 02/02/2025 1:21 AM CDT CBC W/O DIFFERENTIAL Routine 01/31/2025 10:58 [...] MICROSCOPIC NO CULTURE STAT 05/16/2024 3:37 AM SHIP BOSS HIV-1 HIV-2 ANTIBODY + HIV P24 AG PANEL STAT 02/16/2019 7:33 PM CDT from Last 3 Months or Most Recently Relevant to Health Maintenance Results * CARDIAC RHYTHM STRIP ORDER (02/15/2025 3:57 PM CDT) Only the most recent of2 resultswithin the time period is included. Narrative 02/15/2025 3:57 PM CDT Ordered by an unspecified provider. us Scanned Document CARDIAC SERVICES ORDERABLES Rashaun missy Result - Final * CARDIAC EKG ORDER (02/15/2025 2:06 PM CDT) Only the most recent of3 resultswithin the time period is included. Narrative 02/15/2025 2:06 PM CDT Ordered by an unspecified provider. us Scanned Document CARDIAC SERVICES ORDERABLES Fin al Result * (ABNORMAL) RETIC COUNT (02/10/2025 4:10 PM CDT) Only the most recent of4 resultswithin the time period is included. Pathologist [facility] [place] Reticulocyte Percent 14.36(H) 0.50 - 2.40 % 02/10/2025 4:16 PM CDT [facility] Reticulocyte Absolute 0.3676(H) 0.0200 - 0.1100 x10E6/uL 02/10/2025 4:16 PM CDT [facility] Ret-HE 33.7 29.0 - 37.9 pg 02/10/2025 4:16 PM CDT -[facility] Immature Reticulocyte Fraction 39.3(H) 1.8 - 15.2 % 02/10/2025 4:16 PM CDT [facility] Blood BLOOD SPECIMEN / Unknown Lab Venipuncture / Unknown 02/10/2025 4:10 PM CDT 02/10/2025 4:13 PM CDT us Asm I Brandi MAHER LAB - HEMATOLOGY ORDERABLES F inal Result -[facility] [address] [place] [address] * (ABNORMAL) CBC W AUTO DIFFERENTIAL (02/10/2025 4:10 PM CDT) Only the most recent of5 resultswithin the time period is included. Pathologist [facility] [place] WBC 9.5 4.0 - 10.7 x10E9/L 02/10/2025 4:16 PM CDT [facility] RBC Count 2.56(L) 4.30 - 5.80 x10E12/L 02/10/2025 4:16 PM CDT [facility] Hemoglobin 8.0(L) 13.3 - 17.5 g/dL 02/10/2025 4:16 PM CDT [facility] Hematocrit 22.6(L) 38.7 - 51.1 % [...] - 0.60 x10E9/L 02/10/2025 4:16 PM CDT -[facility] Basophil Absolute 0.06 0.00 - 0.13 x10E9/L 02/10/2025 4:16 PM CDT [facility] NRBC 0.6(H) <=0.0 /100 WBC 02/10/2025 4:16 PM CDT [facility] Blood BLOOD SPECIMEN / Unknown Lab Venipuncture / Unknown 02/10/2025 4:10 PM CDT 02/10/2025 4:13 PM CDT us Asm I Brandi MAHER LAB - HEMATOLOGY ORDERABLES F inal Result [facility] [address] [place] [address] * (ABNORMAL) RENAL FUNCTION PANEL (02/10/2025 4:10 PM CDT) Only the most recent of2 resultswithin the time period is included. Glucose 108(H) 70 - 99 mg/dL 02/10/2025 4:26 PM CDT [facility] Sodium 139 136 - 145 mmol/L 02/10/2025 4:26 PM CDT [facility] Potassium 3.1(L) 3.5 - 5.1 mmol/L 02/10/2025 4:26 PM CDT [facility] Chloride 105 98 - 107 mmol/L 02/10/2025 4:26 PM CDT [facility] CO2 25 22 - 29 mmol/L 02/10/2025 4:26 PM CDT [facility] Calcium 8.4 8.4 - 10.4 mg/dL 02/10/2025 4:26 PM CDT [facility] Anion Gap 9 6 - 16 mmol/L 02/10/2025 4:26 PM CDT [facility] BUN <3(L) 5.3 - 18.7 mg/dL 02/10/2025 4:26 PM CDT [facility] Creatinine 0.57(L) 0.72 - 1.25 mg/dL 02/10/2025 4:26 PM CDT [facility] Albumin 3.6 3.1 - 4.5 gm/dL 02/10/2025 4:26 PM CDT [facility] Phosphorus 3.0 2.5 - 4.5 mg/dL 02/10/2025 4:26 PM CDT [facility] eGFR by CKD-EPI >90 >=90 mL/min/1.7 3 m2 02/10/2025 4:26 PM CDT [facility] Comment:Estimated Glomerular Filtration Rate (eGFR) calculated using the CKD-EPI Creatinine Equation (2020), per the National Kidney Foundation and [place] Society of Nephrology recommendations. Blood BLOOD SPECIMEN / Unknown Lab Venipuncture / Unknown 02/10/2025 4:10 PM CDT 02/10/2025 4:13 PM CDT us Thomas Paz MD LAB - CHEMISTRY ORDERABLES Fi nal Result Performing Organization Address [facility]/ZIP Co de Phone Number [facility] [address] [place] [address] * (ABNORMAL) HGB HCT PANEL (02/07/2025 9:58 AM CDT) Only the most recent of2 resultswithin the time period is included. [facility] Hemoglobin 8.3(L) 13.3 - 17.5 g/dL 02/07/2025 10:18 AM CDT [facility] Hematocrit 24.1(L) 38.7 - 51.1 % 02/07/2025 10:18 AM CDT [facility] Blood BLOOD SPECIMEN / Unknown Lab Venipuncture / Unknown 02/07/2025 9:58 AM CDT 02/07/2025 10:14 AM CDT us Amandeep Sheehan MD LAB - HEMATOLOGY OR DERABLES Final Result Performing Organization Address City/[facility]/ZIP Co de Phone Number [facility] [address] [place] [address] * (ABNORMAL) LDH BLOOD (02/07/2025 9:58 AM CDT) Only the most recent of4 resultswithin the time period is included. LDH 418(H) 125 - 220 U/L 02/07/2025 10:28 AM CDT [facility] Blood BLOOD SPECIMEN / Unknown Lab Venipuncture / Unknown 02/07/2025 9:58 AM CDT 02/07/2025 10:15 AM CDT Amandeep Sheehan MD LAB - CHEMISTRY ORD ERABLES Final Result [facility] [address] [place] [address] * (ABNORMAL) DIFFERENTIAL MANUAL (02/03/2025 6:56 AM [...] Cells MODERATE(A) (none) 02/03/2025 8:20 AM CDT [facility] Sickle Cells MODERATE(A) (none) 02/03/2025 8:20 AM CDT -[facility] Target Cells MODERATE(A) (none) 02/03/2025 8:20 AM CDT -[facility] Blood BLOOD SPECIMEN / Unknown Venipuncture / Unknown 02/03/2025 6:56 AM CDT 02/03/2025 7:09 AM CDT Amandeep Sheehan MD LAB - HEMATOLOGY OR DERABLES Final Result [facility] [address] [place] [address] * (ABNORMAL) BASIC METABOLIC PANEL (CALCIUM TOTAL) (02/03/2025 6:56 AM CDT) Only the most recent of5 resultswithin the time period is included. Glucose 89 70 - 99 mg/dL 02/03/2025 7:23 AM CDT -[facility] Sodium 141 136 - 145 mmol/L 02/03/2025 7:23 AM CDT -[facility] Potassium 3.8 3.5 - 5.1 mmol/L 02/03/2025 7:23 AM CDT [facility] Chloride 108(H) 98 - 107 mmol/L 02/03/2025 7:23 AM CDT -[facility] CO2 26 22 - 29 mmol/L 02/03/2025 7:23 AM CDT [facility] Calcium 8.0(L) 8.4 - 10.4 mg/dL 02/03/2025 7:23 AM CDT -[facility] Anion Gap 7 6 - 16 mmol/L 02/03/2025 7:23 AM CDT -[facility] BUN 4(L) 5.3 - 18.7 mg/dL 02/03/2025 7:23 AM CDT -[facility] Creatinine 0.57(L) 0.72 - 1.25 mg/dL 02/03/2025 7:23 AM CDT [facility] eGFR by CKD-EPI >90 >=90 mL/min/1.7 3 m2 02/03/2025 7:23 AM CDT [facility] Comment:Estimated Glomerular Filtration Rate (eGFR) calculated using the CKD-EPI Creatinine Equation (2020), per the National Kidney Foundation and [place] Society of Nephrology recommendations. Blood BLOOD SPECIMEN / Unknown Venipuncture / Unknown 02/03/2025 6:56 AM CDT 02/03/2025 7:09 AM CDT us Amandeep Sheehan MD LAB - CHEMISTRY ORD ERABLES Final Result [facility] [address] [place] [address] * (ABNORMAL) CBC W/O DIFFERENTIAL (02/02/2025 1:21 [...] - 420 x10E9/L 02/02/2025 1:49 AM CDT -[facility] MPV 9.9 7.8 - 11.4 fL 02/02/2025 1:49 AM CDT -[facility] NRBC 2.4(H) <=0.0 /100 WBC 02/02/2025 1:49 AM CDT -[facility] Blood BLOOD SPECIMEN / Unknown Lab Venipuncture / Unknown 02/02/2025 1:21 AM CDT 02/02/2025 1:25 AM CDT Rachel Sofia MD LAB - HEMATOLOGY ORDERABLES Stephanie l Result [facility] [address] [place] [address] * (ABNORMAL) CK BLOOD (02/02/2025 1:21 AM CDT) CK 29(L) 30 - 200 U/L 02/02/2025 1:41 AM CDT -[facility] Blood BLOOD SPECIMEN / Unknown Lab Venipuncture / Unknown 02/02/2025 1:21 AM CDT 02/02/2025 1:25 AM CDT Rachel Sofia MD LAB - CHEMISTRY ORDERABLES Final Result [facility] [address] [place] [address] * XR Chest 1Vw Portable (01/30/2025 6:39 [...] of2 resultswithin the time period is included. Troponin I High Sensitive <3 <=35 ng/L 01/30/2025 4:54 AM CDT -[facility] Delta Troponin I HS 01/30/2025 4:54 AM CDT -[facility] Comment:Delta value intentio tyrell not calculated. Baseline to 1 hour specimen collection interval exceeded. Blood BLOOD SPECIMEN / Unknown Lab Venipuncture / Unknown 01/30/2025 3:40 AM CDT 01/30/2025 4:33 AM CDT Mohamud Palacio MD LAB - CHEMISTRY ORDERABLES Stephanie l Result [facility] [address] [place] [address] * (ABNORMAL) SLIDE SCAN HEMATOLOGY (01/30/2025 3:40 AM CDT) [facility] RBC Morphology REVIEWED 01/30/2025 5:30 AM CDT [facility] Macrocytosis MANY(A) (none) 01/30/2025 5:30 AM CDT [facility] Polychromatic Cells MODERATE(A) (none) 01/30/2025 5:30 AM CDT [facility] Schistocytes MODERATE(A) (none) 01/30/2025 5:30 AM CDT [facility] Sickle Cells MODERATE(A) (none) 01/30/2025 5:30 AM CDT [facility] Blood BLOOD SPECIMEN / Unknown Lab Venipuncture / Unknown 01/30/2025 3:40 AM CDT 01/30/2025 3:43 AM CDT Mohamud Palacio MD LAB - HEMATOLOGY ORDERABLES Fin al Result Performing Organization Address [facility] de Phone Number [facility] [address] [place] [address] * TROPONIN-I HIGH SENSITIVE BASELINE + 1HR (01/29/2025 11:28 PM CDT) Only the most recent of2 resultswithin the time period is included. [facility] Troponin I High Sensitive <3 <=35 ng/L 01/29/2025 11:52 PM CDT [facility] Blood BLOOD SPECIMEN / Unknown Venipuncture / Unknown 01/29/2025 11:28 PM CDT 01/29/2025 11:28 PM CDT Mohamud Palacio MD LAB - CHEMISTRY ORDERABLES Stephanie l Result Performing Organization Address [facility]/ZIP Co de Phone Number [facility] [address] [place] [address] * (ABNORMAL) COMPREHENSIVE METABOLIC PANEL (01/29/2025 11:28 PM CDT) Only the most recent of3 resultswithin the time period is included. [facility] Glucose 86 70 - 99 mg/dL 01/29/2025 11:48 PM CDT [facility] Sodium 138 136 - 145 mmol/L 01/29/2025 11:48 PM CDT -[facility] Potassium 4.3 3.5 - 5.1 mmol/L 01/29/2025 11:48 PM CDT [facility] Chloride 110(H) 98 - 107 mmol/L 01/29/2025 11:48 PM CDT -[facility] CO2 18(L) 22 - 29 mmol/L 01/29/2025 11:48 PM CDT -[facility] Calcium 8.5 8.4 - 10.4 mg/dL 01/29/2025 11:48 PM CDT -[facility] Anion Gap 10 6 - 16 mmol/L 01/29/2025 11:48 PM T -[facility] BUN 3(L) 5.3 - 18.7 mg/dL 01/29/2025 11:48 PM T -[facility] Creatinine 0.60(L) 0.72 - 1.25 mg/dL 01/29/2025 11:48 PM CDT -[facility] Alkaline Phosphatase 253(H) 40 - 150 U/L 01/29/2025 11:48 PM CDT -[facility] ALT 26 6 - 57 U/L 01/29/2025 11:48 PM T -[facility] AST 72(H) 10 - 48 U/L 01/29/2025 11:48 PM CDT -[facility] Protein Total 7.9 6.4 - 8.3 gm/dL 01/29/2025 11:48 PM CDT -[facility] Albumin 3.8 3.1 - 4.5 gm/dL 01/29/2025 11:48 PM CDT -[facility] Bilirubin Total 5.7(H) 0.2 - 1.2 mg/dL 01/29/2025 11:48 PM CDT -[facility] eGFR by CKD-EPI >90 >=90 mL/min/1.7 3 m2 01/29/2025 11:48 PM CDT -[facility] Comment:Estimated Glomerular Filtration Rate (eGFR) calculated using the CKD-EPI Creatinine Equation (2020), per the National Kidney Foundation and [place] Society of Nephrology recommendations. Blood BLOOD SPECIMEN / Unknown Venipuncture / Unknown 01/29/2025 11:28 PM CDT 01/29/2025 11:28 PM CDT Mohamud Palacio MD LAB - CHEMISTRY ORDERABLES Stephanie l Result [facility] [address] [place] [address] * EKG 12-Lead (01/29/2025 10:02 PM CDT) Only the most recent of3 resultswithin the time period is included. Ventricular Rate 79 BPM [facility] Atrial Rate 79 BPM [facility] P-R Interval 200 ms [facility] QRS Duration ms 90 ms [facility] Q-T Interval ms 396 ms [facility] QTC Calculation (Bezet) 454 ms [facility] Calculated P [place] 32 degrees [facility] Calculated R [place] 17 degrees [facility] Calculated T [place] 20 degrees [facility] Interpretation EKG Normal sinus rhythm Normal ECG When compared with ECG of 24-DEC-2024 11:49, No significant change was found Confirmed by MK ROBERTSON MD ([id number]) on 01/31/2025 3:38:24 PM [facility] 01/29/2025 10:0 2 PM CDT 01/31/2025 3:38 PM CDT Mohamud Palacio MD ECG ORDERABLES Edited Result - Final Performing Organization Address City/[facility]/ZIP Co de Phone Number [facility] * XR Abdomen Kub (12/26/2024 5:53 PM [...] - 2.6 mg/dL 12/25/2024 12:31 PM CDT [facility] Blood BLOOD SPECIMEN / Unknown Lab Venipuncture / Unknown 12/25/2024 12:08 PM CDT 12/25/2024 12:11 PM CDT Maribel Adriana Ji MESSAGING ARCHITECT-CORPORATE ASSOCIATE ATTORNEY LAB - CHEMISTRY O RDERABLES Final Result [facility] [address] [place] [address] * (ABNORMAL) URINALYSIS REFLEX TO MICROSCOPIC NO CULTURE (05/16/2024 3:37 AM SHIP BOSS) Color UA Munira(A) Straw, Yellow 05/16/2024 4:04 AM [facility] Clarity UA Clear Clear 05/16/2024 4:04 AM [facility] Specific [place] UA 1.012 1.005 - 1.030 05/16/2024 4:04 AM [facility] pH UA 6.0 5.0 - 8.0 pH 05/16/2024 4:04 AM [facility] Protein UA 1+(A) Negative 05/16/2024 4:04 AM [facility] Glucose UA Negative Negative 05/16/2024 4:04 AM [facility] Ketone UA Negative Negative 05/16/2024 4:04 AM [facility] Bilirubin UA Negative Negative 05/16/2024 4:04 AM [facility] Blood UA Negative Negative 05/16/2024 4:04 AM [facility] Nitrite UA Negative Negative 05/16/2024 4:04 AM [facility] Leukocyte Esterase Trace(A) Negative 05/16/2024 4:04 AM [facility] Urobilinogen UA Negative Negative mg/dL 05/16/2024 4:04 AM [facility] RBC UA 0-2 None Seen, 0-2, 3-5 /HPF 05/16/2024 4:04 AM [facility] WBC UA 6-10(A) None Seen, 0-5 /HPF 05/16/2024 4:04 AM [facility] Squamous Epithelial Cells UA 0-2 None Seen, 0-2, 3-5 /HPF 05/16/2024 4:04 AM [facility] Mucus UA 2+ /LPF 05/16/2024 4:04 AM [facility] Hyaline Casts UA 0-2 None Seen, 0-2 /LPF 05/16/2024 4:04 AM SHIP BOSS [facility] Urine URINE SPECIMEN OBTAINED BY CLEAN CATCH PROCEDURE / Unknown Collection / Unknown 05/16/2024 3:37 AM SHIP BOSS 05/16/2024 3:48 AM SHIP BOSS Narrative [facility] - 05/16/2024 4:04 AM SHIP BOSS us Abena CLAYTONCORPORATE ASSOCIATE ATTORNEY LAB - URINALYSIS ORDERAB LES Final Result [facility] [address] [place] [address], [facility] [phone] * HIV-1 HIV-2 ANTIBODY + HIV P24 AG PANEL (02/16/2019 7:33 PM CDT) [facility] HIV1/2 Ab + P24 Ag Non Reactive Non Reactive 02/16/2019 8:22 PM CDT [facility] Blood BLOOD SPECIMEN / Unknown Venipuncture / Unknown 02/16/2019 7:33 PM CDT 02/16/2019 7:40 PM CDT Narrative [facility] - 02/16/2019 8:22 PM CDT No Laboratory evidence of HIV infection. us Steve Flynn MD LAB - CHEMISTRY ORDERA BLES Final Result Performing Organization Address City/[facility]/ZIP Co de Phone Number [facility] [address] [place] [address] from Last 3 Months or Most Recently Relevant to Health Maintenance Additional Health Concerns Infection Onset Date Last Indicated C Diff Hx 09/29/2023 09/29/2023 Insurance MEDICAID [employer] Advance Directives * Full Code (Latest Code [...] 1:36 AM 09/08/2024 1:39 AM Care Teams Draw Fire Operator Relationship Specialty Start Date End Date Laurent Gonzalez MD [address] [place] [address] PCP - General Hematology 01/15/24
--- OUTSIDE RECORDS SUMMARY | 2025-02-24 12:53 | XMS_ITS | Encounter Summary ---
Author Organization [facility] Healthcare Address [address] [place] [address] Care Team Providers Care Petroleum Inspector Supervisor Name Role Phone Ray Sainz MD Unavailable [phone] Gordo Herrera MD Unavailable [phone] Miscellaneous, Not In File Unavailable Unava ilable Laurent Gonzalez MD Primary Care Provider [phone] Mariam Hedrick Unavailable Unavailable Ning Lowery DNP Unavailable [phone] Ana Duran RN Unavailable [phone] Areli Zuniga Unavailable Unavailable Ning Lowery DNP Unavailable [phone] Tobin Terrell MD Unavailable [phone] Encounter Details Date Type Department Care Team (Late st Contact Info) Description 05/15/2024 Documentation [facility] Main [address] [address] Forrest Domínguez, BOUCHRA Social History Tobacco Use Types Packs/Day Years Used Date Smoking Tobacco: Never Smokeless Tobacco: Never Alcohol Use Standard Drinks/Week Comments Not Currently 0 (1 standard drink = 0.6 oz pur e alcohol) [facility] Utilities Answer Date Recorded In the [...] often do you attend chur ch or zoroastrian services? Never 05/13/2024 Do you belong to [...] place to sleep or slept in a skilled nursing (including now)? No 09/01/2023 Housing Stability Vital [...] in the past 12 m [facility], were you homeless or living in a skilled nursing (including now)? No 05/13/2024 Personal Safety Answer Date Recorded Have you ever been in or are you currently in a harmful physical or emotional relationship or is someone making you feel afraid or unsafe? Denies 05/11/2024 Sex and Gender Information Value Date Recorded Sex Assigned at Not on file Legal Sex Male 10:50 AM CLINICAL COURIER Gender Identity Male 12/06/2024 9:44 PM CDT Sexual Orientation Straight 12/06/2024 9: 44 PM CDT documented as of this encounter Plan of Treatment Not on file documented as of this encounter Visit Diagnoses Not on filedocumented in this encounter Additional Health Concerns Infection Onset Date Last Indicated Resolved Time COVID: Suspected 05/29/2024 05/29/2024 05/29/2024 10:06 PM CLINICAL COURIER COVID: Suspected 07/24/2024 07/24/2024 07/24/2024 5:44 AM CLINICAL COURIER Norovirus suspected 07/24/2024 07/24/2024 07/30/19 3:05 AM CLINICAL COURIER C. difficile suspected 07/24/2024 07/24/202407/29 3:05 AM CLINICAL COURIER COVID: Suspected 08/13/2024 08/13/2024 08/13/2024 1:30 PM CDT COVID: Suspected 11/01/2024 11/01/2024 11/01/2024 2:39 PM CDT Ring Surveillance: C. auris 11/08/2024 11/08/2024 11/15/2024 7:26 PM CDT COVID: Suspected 12/23/2024 12/23/2024 12/23/2024 5:12 PM CDT COVID: Suspected 02/15/2025 02/15/2025 02/15/2025 2:26 PM CDT documented as of this encounter Care Teams Petroleum Inspector Supervisor Relationship Specialty Start Date End Date Laurent Gonzalez MD [address] [place] [address] PCP - General Hematology and Oncology 10/18/23 Ray Sainz MD [address] [facility] [address] [place] [address] 02/10/20 [place] [address] [address] [facility] [address] [place] [address] Consulting Physician Family Medicine 05/05/22 Miscellaneous, Not In File 12/14/22 Mariam Hedrick Outpatient Field Installation Technician 05/31/24 08/15/24 Ning Lowery DNP [id number] [facility] [address] [place] [address] Nurse Practitioner Internal Medicine 05/31/24 08/15/24 Ana Duran, BOUCHRA [address] [facility] [address] [place] [address] [facility] Outpatient Field Installation Technician 07/29/24 08/02/24 Areli Zuniga Outpatient Field Installation Technician 08/16/24 09/23/24 Ning Lowery DNP [address] [facility] [address] [place] [address] Nurse Practitioner Internal Medicine 08/16/24 09/23/24 [place] [address] [address] Consulting Physician Orthopedic Surgery 08/18/24 documented as of this encounter
--- OUTSIDE RECORDS SUMMARY | 2025-02-24 12:53 | XMS_ITS | Encounter Summary ---
Author Organization [facility] Healthcare Address [address] [place] [address] Care Team Providers Care Small Engine Mechanic Name Role Phone Ray Sainz MD Unavailable [phone] Gordo Herrera MD Unavailable [phone] Miscellaneous, Not In File Unavailable Unava ilable Laurent Gonzalez MD Primary Care Provider [phone] Mariam Hedrick Unavailable Unavailable Ning Lowery DNP Unavailable [phone] Ana Duran RN Unavailable [phone] Areli Zuniga Unavailable Unavailable Ning Lowery DNP Unavailable [phone] Tobin Terrell MD Unavailable [phone] Encounter Details Date Type Department Care Team (Late st Contact Info) Description 08/02/2024 [facility] Sickle Cell CHW Initial Eligibility Review [facility] S[facility]le Cell Disease Community Health Worker [address] [place] [id number] Divya Wallace Social History Tobacco Use Types Packs/Day Years Used Date Smoking Tobacco: Never Smokeless Tobacco: Never Alcohol Use Standard Drinks/Week Comments Not Currently 0 (1 standard drink = 0.6 oz pur e alcohol) [facility] Utilities Answer Date Recorded In the past 12 months has [employer], gas, oil, or water [employer] threatened to shut off services in your home? No 07/26/2024 Social Connection and Isolation Panel Answer Date Recorded In a typical week, how many times do you talk on the phone with family, friends, or neighbors? Never 07/26/2024 How often do you get together with friends or re latives? Never 07/26/2024 How often do you attend anabaptism or holiness serv ices? Never 07/26/2024 Do you belong to any clubs o r organizations such as anabaptism groups, unions, fraternal or athletic groups, or [...] to sleep or slept in a senior care (including now)? No 09/01/2023 Housing Stability Vital Sign Answer Samy e Recorded In the last 12 months, was t here a time when you were not able to pay the mortgage or rent on time? No 07/26/2024 In the past 12 months, how m any times have you moved where you were living? 0 07/26/2024 At any time in the past 12 m [facility], were you homeless or living in a senior care (including now)? No 07/26/2024 Personal Safety Answer Date Recorded Have you ever been in or are you currently in a harmful physical or emotional relationship or is someone making you feel afraid or unsafe? Denies 07/23/2024 Sex and Gender Information Value Date Recorded Sex Assigned at Not on file Legal Sex Male 10:50 AM SHORE WORKER Gender Identity Male 12/06/2024 9:44 PM CDT [...] documented as of this encounter Care Teams Small Engine Mechanic Relationship Specialty Start Date End Date Laurent Gonzalez MD [address] [place] [address] PCP - General Hematology and Oncology 10/18/23 Ray Sainz MD [address] [facility] [address] [place] [address] 02/10/20 [place] [address] [facility] [address] [place] [address] Consulting Physician Family Medicine 05/05/22 Miscellaneous, Not In File 12/14/22 Mariam Hedrick Outpatient Air Gun Operator 05/31/24 08/15/24 Ning Lowery DNP [address] [facility] [address] [place] [address] Nurse Practitioner Internal Medicine 05/31/24 08/15/24 Ana Duran, RN [address] [facility] [address] [place] [address] SHOP Outpatient Air Gun Operator 07/29/24 08/02/24 Areli Zuniga Outpatient Air Gun Operator 08/16/24 09/23/24 Ning Lowery DNP [address] [facility] [address] [place] [address] Nurse Practitioner Internal Medicine 08/16/24 09/23/24 [place] [address] [facility] [address] [place] [address] Consulting Physician Orthopedic Surgery 08/18/24 documented as of this encounter
--- OUTSIDE RECORDS SUMMARY | 2025-02-24 12:53 | XMS_ITS | Encounter Summary ---
Author Organization [facility] Address [address] [place] [address] Care Team Providers Care Club Room Attendant Name Role Phone Nina Hines APRN-CIDER MAKER Primary Care Provider + Given, None Primary Care Provider Laurent Noel MD Primary Care Provider [phone] Reason for Visit * Reason Onset Date Comments MEDICATION REFILL 07/16/2023 Encounter Details Date Type Department Care Team (Late st Contact Info) Description 07/16/2023 Refill [facility] - Internal Medicine [address] , [address] [address] Nina Hines, GASTON-CIDER MAKER [address] [address] MEDICATION REFILL Social History Tobacco [...] medical care, and heating? Patient declined 06/16/2023 [facility] Occupat ional [facility] - Occupational Stress [...] or slept in a snf (including now)? 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 Male 5:02 AM OFFICE ENGINEER Gender Identity Not on file Sexual [...] of Assessment Author No 06/16/2023 2:45 PM OFFICE ENGINEER Redshaw, Radha K, RN * Does person [...] Under Investigation 05/15/2024 05/15/2024 05/16/2024 3:26 AM OFFICE ENGINEER COVID-19 Under Investigation 06/30/2024 06/30/2024 06/30/2024 7:12 PM OFFICE ENGINEER documented as of this encounter Care Teams Club Room Attendant Relationship Specialty Start Date End Date Nina Hines, GASTON-CIDER MAKER [address] [phone] PCP - General Nurse Practitioner 07/16/23 08/26/23 Given, None PCP - General 09/28/23 01/14/24 Laurent Gonzalez MD [address] [place] [address] PCP - General Hematology 01/15/24 documented as of this encounter
--- OUTSIDE RECORDS SUMMARY | 2025-02-24 12:54 | XMS_ITS | Clinical Summary ---
Author Organization [facility] Facility Address [address] [address] Care Team Providers Care Pumping Station Engineer Name Role Phone Laurent Gonzalez MD Primary Care Provider [phone] Social History Tobacco Use Types Packs/Day Years [...] Vaccine (#1) 2025 1, 05/03/2009, 05/03/2009 Insurance [employer] [place] ([id number]) Care Teams Pumping Station Engineer Relationship Specialty Start Date End Date Laurent Gonzalez MD PCP - General Hematology 11/08/24
--- OUTSIDE RECORDS SUMMARY | 2025-02-24 12:54 | XMS_ITS | Clinical Summary ---
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 Comment:Testing performed by : [address] [address] Chloride 103 97 - 110 mmol/L [place] Comment:Testing performed by : [address] [address] CO2 25 22 - 32 mmol/L [place] Comment:Testing performed by : [address] [address] Anion gap 11 2 - 15 mmol/L [place] Comment:Testing performed by : [address] [address] BUN 2(L) 6 - 25 mg/dL [place] Comment:Testing performed by : [address] [address] Creatinine 0.44(L) 0.80 - 1.30 mg/dL [place] Comment:Testing performed by : [address] [address] Glucose 99 70 - 199 mg/dL [facility] Comment: Interpretive Data Fasting glucose >/= 126 [...] was last revised 2022. Testing performed by: [address] [address] Calcium 9.0 8.5 - 10.3 mg/dL [facility] Comment:Testing performed by : [address] [address] Bilirubin, total 4.5(H) 0.1 - 1.2 mg/dL [place] Comment:Testing performed by : [address] [address] Protein, pl 7.4 6.5 - 8.5 g/dL [place] Comment:Testing performed by : [address] [address] Albumin 4.2 3.5 - 5.0 g/dL [place] Comment:Testing performed by : [address] [address] Alk phos 286(H) 40 - 130 Units/L [place] Comment:Testing performed by : [address] [address] ALT 32 7 - 55 Units/L [place] Comment:Testing performed by : [facility], [address] [place] [address]., [address] AST 49 10 - 50 Units/L [place] Comment:Testing performed by : [facility], [address] [place] [address]., [address] Blood 02/20/2025 6:47 PM CDT 02/20/2025 6:56 PM CDT Deana HO LAB BLOOD ORDERABLES Final Re sult Performing Organization Address [facility] Co de Phone Number [place] [address] [facility] [place] [address] * eGFR (02/18/2025 12:20 PM CDT) eGFR [...] was last reviewed 2021. Testing performed by: [address] [address] Blood 02/18/2025 12:2 0 PM CDT 02/18/2025 12:37 PM CDT Deana HO LAB BLOOD ORDERABLES Final Re sult Performing Organization Address City/[facility]/ZIP Co de Phone Number [place] 77[address] [facility] [place] [address] * (ABNORMAL) Differential, auto (02/18/2025 12:20 PM CDT) Neutrophil abs 5.20 1.50 - 6.50 K/cumm Comment:Testing performed by : [address] [address] Imm gran abs 0.06 0.00 - 0.10 K/cumm [place] Comment:Testing performed by : [address] [address] Lymphocyte abs 3.74(H) 0.80 - 3.30 K/cumm [place] Comment:Testing performed by : [address] [address] Monocyte abs 1.06(H) 0.20 - 0.80 K/cumm [place] Comment:Testing performed by : [address] [address] Eosinophil abs 0.41 0.00 - 0.50 K/cumm [place] Comment:Testing performed by : [address] [address] Basophil abs 0.06 0.00 - 0.10 K/cumm [place] Comment:Testing performed by : [address] [address] Neutrophil pct 49.3 % [place] Comment: Interpretive Data Percent cell count reference ranges are not reported, since discordance with absolute values may lead to misinterpretation of CBC data. Current Interpretive Data was last revised on 2017. Testing performed by: [address] [address] Imm gran pct 0.6 % [place] Comment: Interpretive Data Percent cell count reference ranges are not reported, since discordance with absolute values may lead to misinterpretation of CBC data. Current Interpretive Data was last revised on 2017. Testing performed by: [address] [address] Lymphocyte pct 35.5 % [place] Comment: Interpretive Data Percent cell count reference ranges are not reported, since discordance with absolute values may lead to misinterpretation of CBC data. Current Interpretive Data was last revised on 2017. Testing performed by: [address] [address] Monocyte pct 10.1 % [place] Comment: Interpretive Data Percent cell count reference ranges are not reported, since discordance with absolute values may lead to misinterpretation of CBC data. Current Interpretive Data was last revised on 2017. Testing performed by: [address] [address] Eosinophil pct 3.9 % [place] Comment: Interpretive Data Percent cell count reference ranges are not reported, since discordance with absolute values may lead to misinterpretation of CBC data. Current Interpretive Data was last revised on 2017. Testing performed by: [address] [address] Basophil pct 0.6 % [place] Comment: Interpretive Data Percent cell count reference ranges are not reported, since discordance with absolute values may lead to misinterpretation of CBC data. Current Interpretive Data was last revised on 2017. Testing performed by: [address] [address] Blood 02/18/2025 12:2 0 PM CDT 02/18/2025 12:37 PM CDT us Deana HO LAB BLOOD ORDERABLES Final Re sult [facility] [address] [facility] [place] [address] * (ABNORMAL) CBC with auto differential (02/18/2025 12:20 PM CDT) WBC 10.53(H) 3.80 - 9.90 K/cumm Comment:Testing performed by : [address] [address] Hgb 7.9(L) 13.0 - 17.5 g/dL [place] SHETYT Comment:Testing performed by : [address] [address] Hct 23.2(L) 38.9 - 50.3 % [place] Comment:Testing performed by : [address] [address] Plt 297 150 - 400 K/cumm [place] Comment:Testing performed by : [address] [address] MPV 9.9 9.1 - 12.3 fL [place] Comment:Testing performed by : [address], [address] RBC 2.50(L) 4.30 - 5.80 M/cumm [place] Comment:Testing performed by : [address], [address] MCV 92.8 81.3 - 96.4 fL [place] Comment:Testing performed by : [address] [address] MCH 31.6 27.1 - 33.3 pg [place] Comment:Testing performed by : [address], [address] MCHC 34.1 32.3 - 35.7 g/dL [place] Comment:Testing performed by : [address], [address] RDW CV 23.6(H) 11.1 - 14.9 % [place] Comment:Testing performed by : [address] [address] RDW SD 77.2(H) 35.7 - 48.1 fL [place] Comment:Testing performed by : [address], [address] NRBC abs 0.21(H) 0.00 - 0.01 K/cumm [place] Comment:Testing performed by : [address], [address] Blood 02/18/2025 12:2 0 PM CDT 02/18/2025 12:37 PM CDT us Deana HO LAB BLOOD ORDERABLES Final Re sult [facility] [address] * (ABNORMAL) Reticulocyte Count (02/18/2025 12:20 PM CDT) [facility] Retics, absolute 457(H) 20 - 87 K/cumm Comment:Testing performed by : [address] [address] Retics 18.3(H) 0.4 - 2.9 % [place] Comment:Testing performed by : [address] [address] Reticulocyte Hgb 35.1 30.5 - 38.0 pg [place] Comment:Testing performed by : [address] [address] Blood 02/18/2025 12:2 0 PM CDT 02/18/2025 12:37 PM CDT us Kassy George NP LAB BLOOD ORDERABLES Final Re sult Performing Organization Address [facility] Co de Phone Number [address] [address] * (ABNORMAL) Lactate dehydrogenase (LD) (02/18/2025 12:20 PM CDT) [facility] Lactate dehydrogenase (LDH) 443(H) 100 - 250 Units/L Comment:Testing performed by : [address] [address] Blood 02/18/2025 12:2 0 PM CDT 02/18/2025 12:37 PM CDT us Ezequiel Carrizales MD LAB BLOOD ORDERABL ES Final Result Performing Organization Address [facility] Co de Phone Number [address] [address] * (ABNORMAL) Comprehensive metabolic panel (02/18/2025 12:20 PM CDT) Sodium 138 135 - 145 mmol/L Comment:Testing performed by : [facility], [address] [place] [address], [place]., [address] Potassium, pl 3.3 3.3 - 4.9 mmol/L [place] Comment:Testing performed by : [address], [place]., [address] Chloride 103 97 - 110 mmol/L [place] Comment:Testing performed by : [address], [place]., [address] CO2 24 22 - 32 mmol/L [place] Comment:Testing performed by : [address], [place]., [address] Anion gap 11 2 - 15 mmol/L [place] Comment:Testing performed by : [address], [place]., [address] BUN <2(L) 6 - 25 mg/dL [place] Comment:Testing performed by : [address], [place]., [address] Creatinine 0.40(L) 0.80 - 1.30 mg/dL [place] Comment:Testing performed by : [address], [place]., [address] Glucose 112 70 - 199 mg/dL [facility] Comment: Interpretive Data Fasting glucose >/= 126 [...] was last revised 2022. Testing performed by: [address] [address] Calcium 8.6 8.5 - 10.3 mg/dL [place] Comment:Testing performed by : [address], [place]., [address] Bilirubin, total 4.9(H) 0.1 - 1.2 mg/dL [place] SHETTY Comment:Testing performed by : [address] [address] Protein, pl 6.9 6.5 - 8.5 g/dL [place] Comment:Testing performed by : [address] [address] Albumin 4.0 3.5 - 5.0 g/dL [place] Comment:Testing performed by : [address] [address] Alk phos 274(H) 40 - 130 Units/L [place] Comment:Testing performed by : [address], [place]., [address] ALT 26 7 - 55 Units/L [place] Comment:Testing performed by : [address] [address] AST 39 10 - 50 Units/L [place] Comment:Testing performed by : [address] [address] Blood 02/18/2025 12:2 0 PM CDT 02/18/2025 12:37 PM CDT us Deana HO LAB BLOOD ORDERABLES Final Re sult [place] 9[address] [facility] Department of Laboratories [place], [place] [id number] * eGFR (02/17/2025 1:04 PM CDT) eGFR [...] Inclusion of Race in Diagnosing Kidney Disease, JOSE MANUELSN 2020). The CKD-EPI equation should not be used for patients with unstable renal function and has not been validated in children and those over 70. Current interpretive data was last reviewed 2021. Testing performed by: [address] [address] Blood 02/17/2025 1:04 PM CDT 02/17/2025 1:07 PM CDT us Deana HO LAB BLOOD ORDERABLES Final Re sult [place] 280[address] [facility] [place] [address] * (ABNORMAL) Differential, auto (02/17/2025 1:04 PM CDT) Neutrophil abs 3.70 1.50 - 6.50 K/cumm Comment:Testing performed by : [address] [address] Imm gran abs 0.08 0.00 - 0.10 K/cumm [place] Comment:Testing performed by : [address] [address] Lymphocyte abs 3.71(H) 0.80 - 3.30 K/cumm [place] Comment:Testing performed by : [address] [address] Monocyte abs 1.31(H) 0.20 - 0.80 K/cumm [place] Comment:Testing performed by : [address] [address] Eosinophil abs 0.43 0.00 - 0.50 K/cumm [place] Comment:Testing performed by : [address] [address] Basophil abs 0.07 0.00 - 0.10 K/cumm [place] Comment:Testing performed by : [address] [address] Neutrophil pct 39.7 % [place] Comment: Interpretive Data Percent cell count reference ranges are not reported, since discordance with absolute values may lead to misinterpretation of CBC data. Current Interpretive Data was last revised on 2017. Testing performed by: [address] [address] Imm gran pct 0.9 % [facility] Comment: Interpretive Data Percent cell count reference ranges are not reported, since discordance with absolute values may lead to misinterpretation of CBC data. Current Interpretive Data was last revised on 2017. Testing performed by: [address] [address] Lymphocyte pct 39.9 % [facility] Comment: Interpretive Data Percent cell count reference ranges are not reported, since discordance with absolute values may lead to misinterpretation of CBC data. Current Interpretive Data was last revised on 2017. Testing performed by: [address] [address] Monocyte pct 14.1 % [facility] Comment: Interpretive Data Percent cell count reference ranges are not reported, since discordance with absolute values may lead to misinterpretation of CBC data. Current Interpretive Data was last revised on 2017. Testing performed by: [address] [address] Eosinophil pct 4.6 % [facility] Comment: Interpretive Data Percent cell count reference ranges are not reported, since discordance with absolute values may lead to misinterpretation of CBC data. Current Interpretive Data was last revised on 2017. Testing performed by: [address] [address] Basophil pct 0.8 % [facility] Comment: Interpretive Data Percent cell count reference ranges are not reported, since discordance with absolute values may lead to misinterpretation of CBC data. Current Interpretive Data was last revised on 2017. Testing performed by: [address] [address] Blood 02/17/2025 1:04 PM CDT 02/17/2025 1:07 PM CDT Deana HO LAB BLOOD ORDERABLES Final Re sult Performing Organization Address City/[facility] Co de Phone Number [place] [id number] [facility] [place] [address] * Thyroid Function [place] (02/17/2025 1:04 PM CDT) Pathologist [facility] [place] TSH 3.82 0.30 - 4.20 mcIUnit/mL Comment:Testing performed by : [address] [address] Blood 02/17/2025 1:04 PM CDT 02/17/2025 1:07 PM CDT Ezequiel Carrizales MD LAB BLOOD ORDERABL ES Final Result Performing Organization Address [facility] Co de Phone Number [place] [phone] [place] [address] * (ABNORMAL) CBC with auto differential (02/17/2025 1:04 PM CDT) [facility] WBC 9.30 3.80 - 9.90 K/cumm Comment:Testing performed by : [address] [address] Hgb 7.8(L) 13.0 - 17.5 g/dL [place] SHETTY Comment:Testing performed by : [address] [address] Hct 22.7(L) 38.9 - 50.3 % [place] Comment:Testing performed by : [address] [address] Plt 294 150 - 400 K/cumm [place] SHETTY Comment:Testing performed by : [address] [address] MPV 10.1 9.1 - 12.3 fL [place] SHETTY Comment:Testing performed by : [address] [address] RBC 2.50(L) 4.30 - 5.80 M/cumm [place] SHETTY Comment:Testing performed by : [address] [address] MCV 90.8 81.3 - 96.4 fL [place] Comment:Testing performed by : [address] [address] MCH 31.2 27.1 - 33.3 pg [place] Comment:Testing performed by : [address] [address] MCHC 34.4 32.3 - 35.7 g/dL [place] Comment:Testing performed by : [address] [address] RDW CV 23.0(H) 11.1 - 14.9 % [place] Comment:Testing performed by : [address] [address] RDW SD 73.4(H) 35.7 - 48.1 fL [place] Comment:Testing performed by : [address] [address] NRBC abs 0.19(H) 0.00 - 0.01 K/cumm [place] Comment:Testing performed by : [address] [address] Morphologic Screen Results confirmed by manual morphology review. [place] Comment:Testing performed by : [address] [address] Blood 02/17/2025 1:04 PM CDT 02/17/2025 1:07 PM CDT Deana HO LAB BLOOD ORDERABLES Final Re sult [place] 4[address] [facility] Department of Laboratories [place], [place] [id number] * (ABNORMAL) Reticulocyte Count (02/17/2025 1:04 PM CDT) Retics, absolute 473(H) 20 - 87 K/cumm Comment: Retic verified by dilution. Testing performed by: [address] [address] Retics 18.9(H) 0.4 - 2.9 % [place] Comment: Retic verified by dilution. Testing performed by: [address] [address] Reticulocyte Hgb 31.5 30.5 - 38.0 pg [place] Comment:Testing performed by : [address] [address] Blood 02/17/2025 1:04 PM CDT 02/17/2025 1:07 PM CDT Kassy George [employer] LAB BLOOD ORDERABLES Final Re sult [place] [facility] [place] [address] * (ABNORMAL) Comprehensive metabolic panel (02/17/2025 1:04 PM CDT) Sodium 139 135 - 145 mmol/L Comment:Testing performed by : [address] [address] Potassium, pl 3.8 3.3 - 4.9 mmol/L [place] Comment:Testing performed by : [address] [address] Chloride 104 97 - 110 mmol/L [place] Comment:Testing performed by : [address] [address] CO2 24 22 - 32 mmol/L [place] Comment:Testing performed by : [address] [address] Anion gap 11 2 - 15 mmol/L [place] Comment:Testing performed by : [address] [address] BUN <2(L) 6 - 25 mg/dL [place] Comment:Testing performed by : [address] [address] Creatinine 0.50(L) 0.80 - 1.30 mg/dL [place] Comment:Testing performed by : [address] [address] Glucose 125 70 - 199 mg/dL [place] [...] was last revised 2022. Testing performed by: [address] [address] Calcium 8.2(L) 8.5 - 10.3 mg/dL [facility] Comment:Testing performed by : [address] [address] Bilirubin, total 4.7(H) 0.1 - 1.2 mg/dL [facility] Comment:Testing performed by : [address] [address] Protein, pl 7.0 6.5 - 8.5 g/dL [facility] Comment:Testing performed by : [address] [address] Albumin 4.1 3.5 - 5.0 g/dL [facility] Comment:Testing performed by : [address] [address] Alk phos 261(H) 40 - 130 Units/L [facility] Comment:Testing performed by : [address] [address] ALT 31 7 - 55 Units/L [facility] Comment:Testing performed by : [address] [address] AST 52(H) 10 - 50 Units/L [facility] Comment:Testing performed by : [address] [address] Blood 02/17/2025 1:04 PM CDT 02/17/2025 1:07 PM CDT us Deana HO LAB BLOOD ORDERABLES Final Re sult [place] 45[address] [facility] [place] [address] * (ABNORMAL) Differential, auto (02/16/2025 10:46 AM CDT) Neutrophil abs 4.16 1.50 - 6.50 K/cumm Comment:Testing performed by : [address] [address] Imm gran abs 0.05 0.00 - 0.10 K/cumm [place] Comment:Testing performed by : [address] [address] Lymphocyte abs 4.15(H) 0.80 - 3.30 K/cumm [place] Comment:Testing performed by : [address] [address] Monocyte abs 1.13(H) 0.20 - 0.80 K/cumm [place] Comment:Testing performed by : [address] [address] Eosinophil abs 0.41 0.00 - 0.50 K/cumm [place] Comment:Testing performed by : [address] [address] Basophil abs 0.07 0.00 - 0.10 K/cumm [place] Comment:Testing performed by : [address] [address] Neutrophil pct 41.8 % [place] Comment: Interpretive Data Percent cell count reference ranges are not reported, since discordance with absolute values may lead to misinterpretation of CBC data. Current Interpretive Data was last revised on 2017. Testing performed by: [address] [address] Imm gran pct 0.5 % [place] Comment: Interpretive Data Percent cell count reference ranges are not reported, since discordance with absolute values may lead to misinterpretation of CBC data. Current Interpretive Data was last revised on 2017. Testing performed by: [address] [address] Lymphocyte pct 41.6 % [place] Comment: Interpretive Data Percent cell count reference ranges are not reported, since discordance with absolute values may lead to misinterpretation of CBC data. Current Interpretive Data was last revised on 2017. Testing performed by: [address] [address] Monocyte pct 11.3 % [place] Comment: Interpretive Data Percent cell count reference ranges are not reported, since discordance with absolute values may lead to misinterpretation of CBC data. Current Interpretive Data was last revised on 2017. Testing performed by: [address] [address] Eosinophil pct 4.1 % [place] Comment: Interpretive Data Percent cell count reference ranges are not reported, since discordance with absolute values may lead to misinterpretation of CBC data. Current Interpretive Data was last revised on 2017. Testing performed by: [address] [address] Basophil pct 0.7 % [place] Comment: Interpretive Data Percent cell count reference ranges are not reported, since discordance with absolute values may lead to misinterpretation of CBC data. Current Interpretive Data was last revised on 2017. Testing performed by: [address] [address] Blood 02/16/2025 10:4 6 AM CDT 02/16/2025 10:56 AM CDT Ezequiel Carrizales MD LAB BLOOD ORDERABL ES Final Result [facility] 3[address] [facility] [place] [address] * (ABNORMAL) CBC with auto differential (02/16/2025 10:46 AM CDT) WBC 9.97(H) 3.80 - 9.90 K/cumm Comment:Testing performed by : [address] [address] Hgb 7.8(L) 13.0 - 17.5 g/dL [place] Comment:Testing performed by : [address] [address] Hct 23.0(L) 38.9 - 50.3 % [place] Comment:Testing performed by : [address] [address] Plt 280 150 - 400 K/cumm [place] Comment:Testing performed by : [address] [address] MPV 10.1 9.1 - 12.3 fL [place] Comment:Testing performed by : [address], [address] RBC 2.50(L) 4.30 - 5.80 M/cumm [place] Comment:Testing performed by : [address], [address] MCV 92.0 81.3 - 96.4 fL [place] Comment:Testing performed by : [address] [address] MCH 31.2 27.1 - 33.3 pg [place] Comment:Testing performed by : [address], [address] MCHC 33.9 32.3 - 35.7 g/dL [place] Comment:Testing performed by : [address], [address] RDW CV 22.7(H) 11.1 - 14.9 % [place] Comment:Testing performed by : [address], [address] RDW SD 74.2(H) 35.7 - 48.1 fL [place] Comment:Testing performed by : [address], [address] NRBC abs 0.13(H) 0.00 - 0.01 K/cumm [place] Comment:Testing performed by : [address], [address] Morphologic Screen Results confirmed by manual morphology review. [place] Comment:Testing performed by : [address], [address] Blood 02/16/2025 10:4 6 AM CDT 02/16/2025 10:56 AM CDT Ezequiel Carrizales MD LAB BLOOD ORDERABL ES Edited Result - Final [place] [id number] [facility] [place] [address] * (ABNORMAL) Reticulocyte Count (02/16/2025 10:46 AM CDT) Retics, absolute 278(H) 20 - 87 K/cumm Comment:Testing performed by : [address] [address] Retics 19.0(H) 0.4 - 2.9 % [place] Comment:Testing performed by : [address] [address] Reticulocyte Hgb 29.4(L) 30.5 - 38.0 pg [place] Comment:Testing performed by : [address] [address] Blood 02/16/2025 10:4 6 AM CDT 02/16/2025 10:56 AM CDT Kassy George NP LAB BLOOD ORDERABLES Final Re sult Performing Organization Address [facility] Co de Phone Number K[place]YET[place] [place] [address] * Blood culture Blood (02/16/2025 10:02 AM CDT) Report Final Report: No growth Comment:Testing performed by : [facility], [address] [facility], [place]., [address] Blood 02/16/2025 10:0 2 AM CDT 02/16/2025 2:03 PM CDT Narrative [place] - 02/20/2025 4:00 PM CDT From a [...] performance characteristics have been verified by the [facility] Microbiology Laboratory. For questions about this culture, contact the Microbiology Laboratory at [phone]. Interpretive data was last revised on 24. Deana HO LAB MICROBIOLOGY - GENERAL OR DERABLES Final Result [place] 0[address] [facility] [place] [address] * eGFR (02/16/2025 9:50 AM CDT) eGFR [...] was last reviewed 2021. Testing performed by: [facility], [address] [place] [address], [place]., [address] Blood 02/16/2025 9:50 AM CDT 02/16/2025 9:55 AM CDT Deana HO LAB BLOOD ORDERABLES Final Re sult [place] 4500 [facility] [place] [address] * Blood culture Blood (02/16/2025 9:50 AM CDT) Report Final Report: No growth Comment:Testing performed by : [facility], [address] [place]., [address] Blood 02/16/2025 9:50 AM CDT 02/16/2025 2:06 [...] performance characteristics have been verified by the [facility] [facility]. For questions about this culture, contact the Microbiology Laboratory at [phone]. Interpretive data was last revised on 24. us Deana HO LAB MICROBIOLOGY - GENERAL OR DERABLES Final Result Performing Organization Address [facility] Co de Phone Number [address] [address] * (ABNORMAL) Lactate dehydrogenase (LD) (02/16/2025 9:50 AM CDT) [facility] Lactate dehydrogenase (LDH) 464(H) 100 - 250 Units/L Comment: Hemolyzed; result may be falsely elevated Testing performed by: [address] [address] Blood 02/16/2025 9:50 AM CDT 02/16/2025 9:55 AM CDT Ezequiel Carrizales MD LAB BLOOD ORDERABL ES Final Result Performing Organization Address [facility] Co de Phone Number [address] [address] * (ABNORMAL) Comprehensive metabolic panel (02/16/2025 9:50 AM CDT) [facility] Sodium 138 135 - 145 mmol/L Comment:Testing performed by : [address] [address] Potassium, pl 3.8 3.3 - 4.9 mmol/L [facility] Comment: Hemolyzed; Potassium value may be falsely elevated by as much as 1.0 mmol/L. Suggest redraw and reanalysis. Testing performed by: [address] [address] Chloride 104 97 - 110 mmol/L [facility] SHETTY Comment:Testing performed by : [address] [address] CO2 23 22 - 32 mmol/L [facility] Comment:Testing performed by : [address] [address] Anion gap 11 2 - 15 mmol/L [facility] SHE[facility] Comment:Testing performed by : [address] [address] BUN 2(L) 6 - 25 mg/dL [facility] Comment:Testing performed by : [address] [address] Creatinine 0.52(L) 0.80 - 1.30 mg/dL [facility] Comment:Testing performed by : [address] [address] Glucose 104 70 - 199 mg/dL [facility] [...] was last revised 2022. Testing performed by: [address] [address] Calcium 8.5 8.5 - 10.3 mg/dL [facility] Comment:Testing performed by : [address] [address] Bilirubin, total 5.6(H) 0.1 - 1.2 mg/dL [facility] Comment:Testing performed by : [address] [address] Protein, pl 6.7 6.5 - 8.5 g/dL [facility] Comment:Testing performed by : [address] [address] Albumin 3.9 3.5 - 5.0 g/dL [facility] Comment:Testing performed by : [address] [address] Alk phos 260(H) 40 - 130 Units/L [facility] Comment:Testing performed by : [address] [address] ALT 40 7 - 55 Units/L [facility] Comment:Testing performed by : [address], [place]., [address] AST 61(H) 10 - 50 Units/L [facility] SHETTY Comment: Hemolyzed; result may be falsely elevated Testing performed by: [facility], [address] [place] [address]., [address] Blood 02/16/2025 9:50 AM CDT 02/16/2025 9:55 AM CDT us Deana HO LAB BLOOD ORDERABLES Final Re sult [facility] SHETT[facility] [address] [facility] [place] [address] * CT Chest PE (CTA) Abdomen Pelvis [...] focal consolidation. PLEURA: No effusion. No pneumothorax. MEDIASTINUM/ANJANA: No identified masses or abnormal nodes. HEART: [...] Anne Merchant M.D. FT: FT Report ID: [id number] Reading Location: [place] [address] Procedure Note Anne Hernandes MD - 02/15/2025 [...] focal consolidation. PLEURA: No effusion. No pneumothorax. MEDIASTINUM/ANJANA: No identified masses or abnormal nodes. HEART: [...] Anne Merchant M.D. FT: FT Report ID: [id number] Reading Location: [place] [address] PROCEDURES Final Resul [...] was last reviewed 2021. Testing performed by: [address] [address] Blood 02/15/2025 3:53 PM CDT 02/15/2025 4:01 PM CDT Ezequiel Carrizales MD LAB BLOOD ORDERABL ES Final Result [facility] [place] [address] * (ABNORMAL) Comprehensive metabolic panel (02/15/2025 3:53 PM CDT) Sodium 142 135 - 145 mmol/L Comment:Testing performed by : [address] [address] Potassium, pl 3.0(L) 3.3 - 4.9 mmol/L [facility] Comment:Testing performed by : [address] [address] Chloride 106 97 - 110 mmol/L [facility] Comment:Testing performed by : [address] [address] CO2 24 22 - 32 mmol/L [facility] SHETTY Comment:Testing performed by : [address] [address] Anion gap 12 2 - 15 mmol/L [facility] Comment:Testing performed by : [address] [address] BUN 3(L) 6 - 25 mg/dL [facility] SHETTY Comment:Testing performed by : [address] [address] Creatinine 0.60(L) 0.80 - 1.30 mg/dL [facility] Comment:Testing performed by : [address] [address] Glucose 121 70 - 199 mg/dL [facility] Comment: Interpretive Data Fasting glucose >/= 126 [...] was last revised 2022. Testing performed by: [address] [address] Calcium 8.2(L) 8.5 - 10.3 mg/dL [facility] Comment:Testing performed by : [address] [address] Bilirubin, total 6.0(H) 0.1 - 1.2 mg/dL [facility] Comment:Testing performed by : [address] [address] Protein, pl 6.7 6.5 - 8.5 g/dL [facility] Comment:Testing performed by : [address] [address] Albumin 3.8 3.5 - 5.0 g/dL [facility] Comment:Testing performed by : [address] [address] Alk phos 261(H) 40 - 130 Units/L [facility] Comment:Testing performed by : [address] [address] ALT 36 7 - 55 Units/L [facility] Comment:Testing performed by : [address] [address] AST 48 10 - 50 Units/L [facility] Comment:Testing performed by : [address] [address] Blood 02/15/2025 3:53 PM CDT 02/15/2025 4:01 PM CDT Ezequiel Carrizales MD LAB BLOOD ORDERABL ES Final Result Performing Organization Address [facility]/ZIP Co de Phone Number [address] [address] * Sepsis Lactate w/ Reflex (02/15/2025 3:41 PM CDT) Pathologist [facility] Sepsis Lactate 1.4 0.7 - 2.0 mmol/L Comment:Testing performed by : [address] [address] Blood 02/15/2025 3:41 PM CDT 02/15/2025 3:59 PM CDT Deana HO LAB BLOOD ORDERABLES Final Re sult Performing Organization Address [facility] Co de Phone Number [address] [place] [address] * (ABNORMAL) Differential, auto (02/15/2025 2:20 PM CDT) Pathologist [facility] Neutrophil abs 6.11 1.50 - 6.50 K/cumm Comment:Testing performed by : [address] [address] Imm gran abs 0.03 0.00 - 0.10 K/cumm [facility] Comment:Testing performed by : [address] [address] Lymphocyte abs 4.59(H) 0.80 - 3.30 K/cumm [facility] Comment:Testing performed by : [address] [address] Monocyte abs 1.00(H) 0.20 - 0.80 K/cumm [facility] Comment:Testing performed by : [address] [address] Eosinophil abs 0.14 0.00 - 0.50 K/cumm [facility] Comment:Testing performed by : [address] [address] Basophil abs 0.05 0.00 - 0.10 K/cumm [facility] Comment:Testing performed by : [address] [address] Neutrophil pct 51.2 % [facility] Comment: Interpretive Data Percent cell count reference ranges are not reported, since discordance with absolute values may lead to misinterpretation of CBC data. Current Interpretive Data was last revised on 2017. Testing performed by: [address] [address] Imm gran pct 0.3 % [facility] Comment: Interpretive Data Percent cell count reference ranges are not reported, since discordance with absolute values may lead to misinterpretation of CBC data. Current Interpretive Data was last revised on 2017. Testing performed by: [address] [address] Lymphocyte pct 38.5 % [facility] Comment: Interpretive Data Percent cell count reference ranges are not reported, since discordance with absolute values may lead to misinterpretation of CBC data. Current Interpretive Data was last revised on 2017. Testing performed by: [address] [address] Monocyte pct 8.4 % [facility] Comment: Interpretive Data Percent cell count reference ranges are not reported, since discordance with absolute values may lead to misinterpretation of CBC data. Current Interpretive Data was last revised on 2017. Testing performed by: [address] [address] Eosinophil pct 1.2 % [facility] Comment: Interpretive Data Percent cell count reference ranges are not reported, since discordance with absolute values may lead to misinterpretation of CBC data. Current Interpretive Data was last revised on 2017. Testing performed by: [address] [address] Basophil pct 0.4 % [facility] Comment: Interpretive Data Percent cell count reference ranges are not reported, since discordance with absolute values may lead to misinterpretation of CBC data. Current Interpretive Data was last revised on 2017. Testing performed by: [address] [address] Blood 02/15/2025 2:20 PM CDT 02/15/2025 2:26 PM CDT Ezequiel Carrizales MD LAB BLOOD ORDERABL ES Final Result [facility] [address] [facility] [place] [address] * (ABNORMAL) CBC with auto differential (02/15/2025 2:20 PM CDT) WBC 11.92(H) 3.80 - 9.90 K/cumm Comment:Testing performed by : [address] [address] Hgb 7.7(L) 13.0 - 17.5 g/dL [facility] Comment:Testing performed by : [address] [address] Hct 22.2(L) 38.9 - 50.3 % [facility] Comment:Testing performed by : [address] [address] Plt 292 150 - 400 K/cumm [facility] Comment:Testing performed by : [address] [address] MPV 10.0 9.1 - 12.3 fL [facility] Comment:Testing performed by : [address] [address] RBC 2.46(L) 4.30 - 5.80 M/cumm [facility] Comment:Testing performed by : [address] [address] MCV 90.2 81.3 - 96.4 fL [facility] Comment:Testing performed by : [address] [address] MCH 31.3 27.1 - 33.3 pg [facility] Comment:Testing performed by : [address] [address] MCHC 34.7 32.3 - 35.7 g/dL [facility] Comment:Testing performed by : [address] [address] RDW CV 22.0(H) 11.1 - 14.9 % [facility] Comment:Testing performed by : [address] [address] RDW SD 71.7(H) 35.7 - 48.1 fL [facility] Comment:Testing performed by : [address] [address] NRBC abs 0.09(H) 0.00 - 0.01 K/cumm [facility] Comment:Testing performed by : [address] [address] Blood 02/15/2025 2:20 PM CDT 02/15/2025 2:26 PM CDT Ezequiel Carrizales MD LAB BLOOD ORDERABL ES Final Result [facility] [address] [facility] [place] [address] * Influenza A/B, RSV, and COVID-19 PCR Nasopharyngeal (02/15/2025 1:35 PM CDT) Pathologist [facility] COVID-19 RNA Negative Negative Comment:Testing performed by : [address] [address] Influenza A RNA Negative Negative [facility] Comment:Testing performed by : [address] [address] Influenza B RNA Negative Negative [facility] Comment:Testing performed by : [address] [address] RSV RNA Negative Negative [facility] Comment: Interpretive data: Testing performed by [facility]. This test is performed using the [employer] Xpert Xpress CoV-2/Flu/RSV plus assay. This is [...] Data last revised 2023 Testing performed by: [facility], [address] [place] [address]., [address] Nasopharyngeal 02/15/2025 1: 35 PM CDT 02/15/2025 1:43 PM CDT Narrative [facility] - 02/15/2025 2:25 PM CDT Is the Patient experiencing symptoms consistent with COVID?->Yes us Deana HO LAB MICROBIOLOGY - GENERAL OR DERABLES Final Result Performing Organization Address City/[facility]/ZIP Co de Phone Number [facility] [address] [facility] [place] [address] * ECG 12 lead (02/15/2025 1:13 PM CDT) Pathologist [facility] Ventricular Rate EKG/Min 82 BPM [facility] Atrial Rate 82 BPM [facility] ME-Interval (MSEC) 174 ms [facility] QRS-Interval (MSEC) 80 ms [facility] QT-Interval (MSEC) 404 ms [facility] QTc 472 ms [facility] P [place] 62 degrees [facility] R [place] 15 degrees [facility] T [place] 24 degrees [facility] Diagnosis Normal sinus rhythm Normal ECG When compared with ECG of 16-JAN-2025 14:47, Nonspecific T wave abnormality, improved in Inferior leads Nonspecific T wave abnormality no longer evident in Anterolateral leads Confirmed by KEVON BYRD M.D. ([id number]) on 02/15/2025 2:52:50 PM [facility] 02/15/2025 1:13 PM CDT 02/15/2025 2:52 PM CDT us Deana HO ECG ORDERABLES Final Result Performing Organization Address [facility] Co de Phone Number [facility] * eGFR (02/14/2025 2:49 PM CDT) [facility] eGFR >90 >=60 mL/min/1. 73 m2 Comment: [...] MD LAB BLOOD ORDERABLES Final R esult [facility] Department [place] [address] * (ABNORMAL) Differential, auto (02/14/2025 2:49 PM CDT) [facility] Neutrophil abs 7.49(H) 1.50 - 6.50 K/cumm Comment:Testing performed by : [facility], [address] [place] [phone] Lymphocyte abs 3.16 0.80 - 3.30 K/cumm [facility] JURADO Comment:Testing performed by : [facility], [address] [place] [phone] Monocyte abs 1.08(H) 0.20 - 0.80 K/cumm [facility] JURADO Comment:Testing performed by : [facility], [address] [place] [phone] Eosinophil abs 0.10 0.00 - 0.50 K/cumm [facility] Comment:Testing performed by : [facility], [address] [place] [phone] Basophil abs 0.16(H) 0.00 - 0.10 K/cumm [facility] Comment:Testing performed by : [facility], [address] [place] [phone] Neutrophil pct 62.5 % [facility] Comment: Interpretive Data Percent cell count reference ranges are not reported, since discordance with absolute values may lead to misinterpretation of CBC data. Current Interpretive Data was last revised on 2017. Testing performed by: [facility], [address] [place] [phone] Lymphocyte pct 26.4 % [facility] Comment: Interpretive Data Percent cell count reference ranges are not reported, since discordance with absolute values may lead to misinterpretation of CBC data. Current Interpretive Data was last revised on 2017. Testing performed by: [facility], [address] [place] [phone] Monocyte pct 9.0 % [facility] Comment: Interpretive Data Percent cell count reference ranges are not reported, since discordance with absolute values may lead to misinterpretation of CBC data. Current Interpretive Data was last revised on 2017. Testing performed by: [facility], [address] [place] [phone] Eosinophil pct 0.9 % [facility] Comment: Interpretive Data Percent cell count reference ranges are not reported, since discordance with absolute values may lead to misinterpretation of CBC data. Current Interpretive Data was last revised on 2017. Testing performed by: [facility], [address] [place] [phone] Basophil pct 1.3 % [facility] Comment: Interpretive Data Percent cell count reference ranges are not reported, since discordance with absolute values may lead to misinterpretation of CBC data. Current Interpretive Data was last revised on 2017. Testing performed by: [facility], [address] [place] [address] Blood 02/14/2025 2:49 PM CDT 02/14/2025 3:02 PM CDT us Laurent Gonzalez MD LAB BLOOD ORDERABLES Final R esult [facility] One [facility] Department [place] [address] * (ABNORMAL) CBC with auto differential (02/14/2025 2:49 PM CDT) WBC 11.99(H) 3.80 - 9.90 K/cumm Comment:Testing performed by : [facility], [address] [place] [address] Hgb 9.2(L) 13.0 - 17.5 g/dL [facility]UR[facility]O Comment:Testing performed by : [facility], [address] [place] [address] Hct 26.5(L) 38.9 - 50.3 % [facility] Comment:Testing performed by : [facility], [address] [place] [address] Plt 341 150 - 400 K/cumm [facility] Comment:Testing performed by : [facility], [address] [place] [address] MPV 8.5 6.8 - 10.4 fL [facility] Comment:Testing performed by : [facility], [address] [place] [address] RBC 2.86(L) 4.30 - 5.80 M/cumm [facility] Comment:Testing performed by : [facility], [address] [place] [address] MCV 92.6 81.3 - 96.4 fL [facility] Comment:Testing performed by : [facility], [address] [place] [address] MCH 32.0 27.1 - 33.3 pg [facility] Comment:Testing performed by : [facility], [address] [place] [phone] MCHC 34.5 32.3 - 35.7 g/dL [facility] Comment:Testing performed by : [facility], [address] [place] [phone] RDW CV 24.7(H) 11.1 - 14.9 % [facility] Comment:Testing performed by : [facility], [address] [place] [phone] NRBC abs 0.10(H) 0.00 - 0.01 K/cumm [facility] Comment:Testing performed by : [facility], [address] [place] [phone] Blood 02/14/2025 2:49 PM CDT 02/14/2025 3:02 PM CDT Laurent Gonzalez MD LAB BLOOD ORDERABLES Final R esult [facility] One [facility] Department [place] [address] * (ABNORMAL) Comprehensive metabolic panel (02/14/2025 2:49 PM CDT) Sodium 141 135 - 145 mmol/L Potassium, pl 3.3 3.3 - 4.9 mmol/L [facility] Chloride 106 97 - 110 mmol/L [facility] CO2 22 22 - 32 mmol/L [facility] Anion gap 13 2 - 15 mmol/L [facility] BUN 3(L) 6 - 25 mg/dL [facility] Creatinine 0.52(L) 0.80 - 1.30 mg/dL [facility] Glucose 121 70 - 199 mg/dL [facility] Comment: Interpretive Data Fasting glucose [...] 2022. Calcium 9.0 8.5 - 10.3 mg/dL [facility] Bilirubin, total 6.9(H) 0.1 - 1.2 mg/dL [facility] Protein, pl 8.2 6.5 - 8.5 g/dL [facility] Albumin 4.3 3.5 - 5.0 g/dL [facility] Alk phos 310(H) 40 - 130 Units/L [facility] ALT 51 7 - 55 Units/L [facility] AST 86(H) 10 - 50 Units/L [facility] Blood 02/14/2025 2:49 PM CDT 02/14/2025 3:06 PM CDT Laurent Gonzalez MD LAB BLOOD ORDERABLES Final R esult [facility] One [facility] Department [place] [address] * SCAN - RADIOLOGY/IMAGING (01/21/2025) Anatomical Region [...] was last reviewed 2021. Testing performed by: [address] [address] Blood 01/18/2025 6:14 AM CDT 01/18/2025 6:34 AM CDT us Rasta Garcia MD LAB BLOOD ORDERABLES Final Res ult [facility] [place] [address] * (ABNORMAL) Differential, auto (01/18/2025 6:14 AM CDT) Neutrophil abs 5.66 1.50 - 6.50 K/cumm Comment:Testing performed by : [address] [address] Imm gran abs 0.06 0.00 - 0.10 K/cumm [facility] Comment:Testing performed by : [address] [address] Lymphocyte abs 4.21(H) 0.80 - 3.30 K/cumm [facility] Comment:Testing performed by : [address] [address] Monocyte abs 1.53(H) 0.20 - 0.80 K/cumm [facility] Comment:Testing performed by : [address] [address] Eosinophil abs 0.32 0.00 - 0.50 K/cumm [facility] Comment:Testing performed by : [address] [address] Basophil abs 0.06 0.00 - 0.10 K/cumm [facility] Comment:Testing performed by : [address] [address] Neutrophil pct 47.8 % [facility] Comment: Interpretive Data Percent cell count reference ranges are not reported, since discordance with absolute values may lead to misinterpretation of CBC data. Current Interpretive Data was last revised on 2017. Testing performed by: [address] [address] Imm gran pct 0.5 % [facility] Comment: Interpretive Data Percent cell count reference ranges are not reported, since discordance with absolute values may lead to misinterpretation of CBC data. Current Interpretive Data was last revised on 2017. Testing performed by: [address] [address] Lymphocyte pct 35.6 % [facility] Comment: Interpretive Data Percent cell count reference ranges are not reported, since discordance with absolute values may lead to misinterpretation of CBC data. Current Interpretive Data was last revised on 2017. Testing performed by: [address] [address] Monocyte pct 12.9 % [facility] Comment: Interpretive Data Percent cell count reference ranges are not reported, since discordance with absolute values may lead to misinterpretation of CBC data. Current Interpretive Data was last revised on 2017. Testing performed by: [address] [address] Eosinophil pct 2.7 % [facility] Comment: Interpretive Data Percent cell count reference ranges are not reported, since discordance with absolute values may lead to misinterpretation of CBC data. Current Interpretive Data was last revised on 2017. Testing performed by: [address] [address] Basophil pct 0.5 % [facility] Comment: Interpretive Data Percent cell count reference ranges are not reported, since discordance with absolute values may lead to misinterpretation of CBC data. Current Interpretive Data was last revised on 2017. Testing performed by: [address] [address] Blood 01/18/2025 6:14 AM CDT 01/18/2025 6:34 AM CDT us Rasta Garcia MD LAB BLOOD ORDERABLES Final Res ult [facility] [address] [facility] [place] [address] * (ABNORMAL) CBC with auto differential (01/18/2025 6:14 AM CDT) WBC 11.84(H) 3.80 - 9.90 K/cumm Comment:Testing performed by : [address] [address] Hgb 8.3(L) 13.0 - 17.5 g/dL [facility] Comment:Testing performed by : [address] [address] Hct 24.3(L) 38.9 - 50.3 % [facility] Comment:Testing performed by : [address] [address] Plt 302 150 - 400 K/cumm [facility] Comment:Testing performed by : [address] [address] MPV 9.9 9.1 - 12.3 fL [facility] Comment:Testing performed by : [address] [address] RBC 2.79(L) 4.30 - 5.80 M/cumm [facility] Comment:Testing performed by : [address] [address] MCV 87.1 81.3 - 96.4 fL [facility] Comment:Testing performed by : [address] [address] MCH 29.7 27.1 - 33.3 pg [facility] SHETTY Comment:Testing performed by : [address] [address] MCHC 34.2 32.3 - 35.7 g/dL [facility] SHETT[facility] Comment:Testing performed by : [address] [address] RDW CV 21.2(H) 11.1 - 14.9 % [facility] Comment:Testing performed by : [address] [address] RDW SD 66.2(H) 35.7 - 48.1 fL [facility] Comment:Testing performed by : [address] [address] NRBC abs 0.05(H) 0.00 - 0.01 K/cumm [facility] Comment:Testing performed by : [address] [address] Morphologic Screen Results confirmed by manual morphology review. [facility] Comment:Testing performed by : [address] [address] Blood 01/18/2025 6:14 AM CDT 01/18/2025 6:34 AM CDT us Rasta Garcia MD LAB BLOOD ORDERABLES Edited Re sult - Final [facility] Department of Laboratories [place], [place] [id number] * (ABNORMAL) Reticulocyte Count (01/18/2025 6:14 AM CDT) Retics, absolute 362(H) 20 - 87 K/cumm Comment:Testing performed by : [address] [address] Retics 12.5(H) 0.4 - 2.9 % [facility] Comment:Testing performed by : [address] [address] Reticulocyte Hgb 31.6 30.5 - 38.0 pg [facility] Comment:Testing performed by : [address] [address] Blood 01/18/2025 6:14 AM CDT 01/18/2025 6:34 AM CDT us Rasta Garcia MD LAB BLOOD ORDERABLES Final Res ult [facility] [address] [facility] [place] [address] * (ABNORMAL) Basic metabolic panel (01/18/2025 6:14 AM CDT) Sodium 138 135 - 145 mmol/L Comment:Testing performed by : [address] [address] Potassium, pl 3.3 3.3 - 4.9 mmol/L [facility] Comment:Testing performed by : [address] [address] [address] Chloride 101 97 - 110 mmol/L [facility] Comment:Testing performed by : [address] [address] CO2 25 22 - 32 mmol/L [place] Comment:Testing performed by : [address] [address] Anion gap 12 2 - 15 mmol/L [place] Comment:Testing performed by : [address] [address] BUN 4(L) 6 - 25 mg/dL [place] Comment:Testing performed by : [address] [address] Creatinine 0.61(L) 0.80 - 1.30 mg/dL [place] Comment:Testing performed by : [address] [address] Glucose 105 70 - 199 mg/dL [place] [...] was last revised 2022. Testing performed by: [address] [address] Calcium 9.1 8.5 - 10.3 mg/dL [place] Comment:Testing performed by : [address] [address] Blood 01/18/2025 6:14 AM CDT 01/18/2025 6:34 AM CDT us Rasta Garcia MD LAB BLOOD ORDERABLES Final Res ult Performing Organization Address City/[facility]/ZIP Co de Phone Number [facility]0 [facility] [place] [address] * eGFR (01/17/2025 6:04 AM CDT) eGFR [...] was last reviewed 2021. Testing performed by: [address] [address] Blood 01/17/2025 6:04 AM CDT 01/17/2025 6:35 AM CDT us Rasta Garcia MD LAB BLOOD ORDERABLES Final Res ult Performing Organization Address City/[facility]/ZIP Co de Phone Number [place] [id number] [facility] [place] [address] * (ABNORMAL) Differential, auto (01/17/2025 6:04 AM CDT) Neutrophil abs 4.97 1.50 - 6.50 K/cumm Comment:Testing performed by : [address] [address] Imm gran abs 0.04 0.00 - 0.10 K/cumm [place] Comment:Testing performed by : [address] [address] Lymphocyte abs 3.73(H) 0.80 - 3.30 K/cumm [place] Comment:Testing performed by : [address] [address] Monocyte abs 1.04(H) 0.20 - 0.80 K/cumm [place] Comment:Testing performed by : [address] [address] Eosinophil abs 0.35 0.00 - 0.50 K/cumm [place] Comment:Testing performed by : [address] [address] Basophil abs 0.06 0.00 - 0.10 K/cumm [facility] Comment:Testing performed by : [address] [address] Neutrophil pct 48.8 % [facility] Comment: Interpretive Data Percent cell count reference ranges are not reported, since discordance with absolute values may lead to misinterpretation of CBC data. Current Interpretive Data was last revised on 2017. Testing performed by: [address] [address] Imm gran pct 0.4 % [facility] Comment: Interpretive Data Percent cell count reference ranges are not reported, since discordance with absolute values may lead to misinterpretation of CBC data. Current Interpretive Data was last revised on 2017. Testing performed by: [address] [address] Lymphocyte pct 36.6 % [facility] Comment: Interpretive Data Percent cell count reference ranges are not reported, since discordance with absolute values may lead to misinterpretation of CBC data. Current Interpretive Data was last revised on 2017. Testing performed by: [address] [address] Monocyte pct 10.2 % [facility] Comment: Interpretive Data Percent cell count reference ranges are not reported, since discordance with absolute values may lead to misinterpretation of CBC data. Current Interpretive Data was last revised on 2017. Testing performed by: [address] [address] Eosinophil pct 3.4 % [facility] Comment: Interpretive Data Percent cell count reference ranges are not reported, since discordance with absolute values may lead to misinterpretation of CBC data. Current Interpretive Data was last revised on 2017. Testing performed by: [address] [address] Basophil pct 0.6 % [facility] Comment: Interpretive Data Percent cell count reference ranges are not reported, since discordance with absolute values may lead to misinterpretation of CBC data. Current Interpretive Data was last revised on 2017. Testing performed by: [address] [address] Blood 01/17/2025 6:04 AM CDT 01/17/2025 6:35 AM CDT us Rasta Garcia MD LAB BLOOD ORDERABLES Final Res ult [facility] [address] [facility] [place] [address] * (ABNORMAL) CBC with auto differential (01/17/2025 6:04 AM CDT) WBC 10.19(H) 3.80 - 9.90 K/cumm Comment:Testing performed by : [address] [address] Hgb 8.3(L) 13.0 - 17.5 g/dL [facility] SHETTY Comment:Testing performed by : [address] [address] Hct 24.0(L) 38.9 - 50.3 % [facility] Comment:Testing performed by : [address] [address] Plt 329 150 - 400 K/cumm [facility] Comment:Testing performed by : [address] [address] MPV 10.6 9.1 - 12.3 fL [facility] SHETTY Comment:Testing performed by : [address] [address] RBC 2.77(L) 4.30 - 5.80 M/cumm [facility] Comment:Testing performed by : [address] [address] MCV 86.6 81.3 - 96.4 fL [place] Comment:Testing performed by : [address], [address] MCH 30.0 27.1 - 33.3 pg [place] Comment:Testing performed by : [address], [address] MCHC 34.6 32.3 - 35.7 g/dL [place] Comment:Testing performed by : [address] [address] RDW CV 21.2(H) 11.1 - 14.9 % [facility] Comment:Testing performed by : [address], [address] RDW SD 66.2(H) 35.7 - 48.1 fL [facility] Comment:Testing performed by : [address] [address] NRBC abs 0.06(H) 0.00 - 0.01 K/cumm [facility] Comment:Testing performed by : [address], [address] Morphologic Screen Results confirmed by manual morphology review. [facility] Comment:Testing performed by : [address] [address] Blood 01/17/2025 6:04 AM CDT 01/17/2025 6:35 AM CDT us Rasta Garcia MD LAB BLOOD ORDERABLES Edited Re sult - Final Performing Organization Address [facility] Co de Phone Number [place] [phone] [facility] [place] [address] * (ABNORMAL) Reticulocyte Count (01/17/2025 6:04 AM CDT) Pathologist [facility] Retics, absolute 468(H) 20 - 87 K/cumm Comment:Testing performed by : [address] [address] Retics 15.7(H) 0.4 - 2.9 % [place] Comment:Testing performed by : [address] [address] Reticulocyte Hgb 30.0(L) 30.5 - 38.0 pg [place] Comment:Testing performed by : [address] [address] Blood 01/17/2025 6:04 AM CDT 01/17/2025 6:35 AM CDT us Rasta Garcia MD LAB BLOOD ORDERABLES Final Res ult Performing Organization Address [facility] Co de Phone Number K[address]YET[address] [place] [address] * (ABNORMAL) Basic metabolic panel (01/17/2025 6:04 AM CDT) [facility] Sodium 137 135 - 145 mmol/L Comment:Testing performed by : [address] [address] Potassium, pl 3.1(L) 3.3 - 4.9 mmol/L [place] Comment:Testing performed by : [address] [address] Chloride 101 97 - 110 mmol/L [place] Comment:Testing performed by : [address] [address] CO2 24 22 - 32 mmol/L [place] SHETTY Comment:Testing performed by : [address] [address] Anion gap 12 2 - 15 mmol/L [facility] Comment:Testing performed by : [facility], [address] [place] [address]., [address] BUN 3(L) 6 - 25 mg/dL [place] Comment:Testing performed by : [address] [address] Creatinine 0.50(L) 0.80 - 1.30 mg/dL [place] Comment:Testing performed by : [address] [address] Glucose 125 70 - 199 mg/dL [place] [...] was last revised 2022. Testing performed by: [address] [address] Calcium 8.9 8.5 - 10.3 mg/dL [place] Comment:Testing performed by : [address] [address] Blood 01/17/2025 6:04 AM CDT 01/17/2025 6:35 AM CDT us Rasta Garcia MD LAB BLOOD ORDERABLES Final Res ult [facility] 35[address] [facility] [place] [address] * Troponin T high-sensitivity 4-hour (01/16/2025 6:37 PM CDT) Trop T hs 13 <=22 ng/L Comment: Interpretive Data For further hscTnT resources including the diagnostic algorithm and an aid in interpretation, copy and paste this link: https://nrl.testcatalog.org/show/hsTrop Current Interpretive Data last revised 2020. Testing performed by: [address] [address] Trop T hs delta 7 ng/L [place] SHETTY Comment:Testing performed by : [address] [address] Trop T hs interp Equivocal [place] Comment:Testing performed by : [address] [address] Blood 01/16/2025 6:37 PM CDT 01/16/2025 6:48 PM CDT Caesy Paz MD LAB BLOOD ORDERABLES Final Result Performing Organization Address City/[facility]/ZIP Co de Phone Number [place] [address] [facility] [place] [address] * Troponin T high-sensitivity 2-hour (01/16/2025 5:09 PM CDT) Trop T hs <6 <=22 ng/L Comment: Interpretive Data For further hscTnT resources including the diagnostic algorithm and an aid in interpretation, copy and paste this link: https://nrl.testcatTraitWare.org/show/hsTrop Current Interpretive Data last revised 2020. Testing performed by: [address] [address] Trop T hs delta 0 ng/L [place] SHETTY Comment:Testing performed by : [address] [address] Trop T hs interp Insignificant [facility] Comment:Testing performed by : [address] [address] Blood 01/16/2025 5:09 PM CDT 01/16/2025 5:15 PM CDT Casey Paz MD LAB BLOOD ORDERABLES Final Result Performing Organization Address City/[facility]/ZIP Co de Phone Number [facility] [address] [facility] [place] [address] * Post-Transfusion Reaction ABO/Rh (01/16/2025 3:58 PM CDT) ABO/Rh Post-Transfusi on Reaction A Positive Comment:Testing performed by : [address] [address] Blood 01/16/2025 3:58 PM CDT 01/16/2025 3:59 PM CDT Casey Paz MD LAB BLOOD BANK TEST ORDERA BLES Final Result [address] [place] [address] * Pre-Transfusion Reaction ABO/Rh (01/16/2025 3:58 PM CDT) ABO/Rh Pre-Transfusio n Reaction A Positive Comment:Testing performed by : [address] [address] Blood 01/16/2025 3:58 PM CDT 01/16/2025 3:59 PM CDT Casey Paz MD LAB BLOOD BANK TEST ORDERA BLES Final Result Performing Organization Address City/[facility]/ZIP Co de Phone Number [address] [address] * Post TRXN SAMY (01/16/2025 3:58 PM CDT) Yesenia, direct, post-transfusi on Negative Comment:Testing performed by : [address] [address] Blood 01/16/2025 3:58 PM CDT 01/16/2025 3:59 PM CDT us Casey Paz MD LAB BLOOD BANK TEST ORDERA BLES Final Result [place] 757[address] [facility] [place] [address] * Pre TRXN SAMY (01/16/2025 3:58 PM CDT) [facility] Direct yesenia pre-transfusio n reaction Negative Comment:Testing performed by : [facility], [address] [place] [address]., [address] Blood 01/16/2025 3:58 PM CDT 01/16/2025 3:59 PM CDT Casey Paz MD LAB BLOOD BANK TEST ORDERA BLES Final Result Performing Organization Address [facility] Co de Phone Number [place] 757250 [facility] [place] [address] * ECG 12 lead (01/16/2025 2:47 PM CDT) [facility] Ventricular Rate EKG/Min 79 BPM [facility] Atrial Rate 79 BPM [facility] ME-Interval (MSEC) 190 ms [facility] QRS-Interval (MSEC) 80 ms [facility] QT-Interval (MSEC) 410 ms [facility] QTc 470 ms [facility] P [place] 48 degrees [facility] R [place] 22 degrees [facility] T [place] -16 degrees [facility] Diagnosis Normal sinus rhythm Nonspecific T wave abnormality Abnormal ECG When compared with ECG of 31-DEC-2024 23:51, Nonspecific T wave abnormality now evident in Anterolateral leads Confirmed by MIRYAM GARCÍA M.D. ([id number]) on 01/16/2025 6:28:08 PM [facility] 01/16/2025 2:47 PM CDT 01/16/2025 6:28 PM CDT Casey Paz MD ECG ORDERABLES Final Resu lt Performing Organization Address City/[facility]/ZIP Co de Phone Number [facility] * Troponin T high-sensitivity series (baseline, 2hr, 4hr, 6hr) (01/16/2025 2:40 PM CDT) Trop T hs <6 <=22 ng/L Comment: Interpretive Data For further hscTnT resources including the diagnostic algorithm and an aid in interpretation, copy and paste this link: https://nrl.testcatalog.org/show/hsTrop Current Interpretive Data last revised 2020. Testing performed by: [facility], [address] [place] [address]., [address] Blood 01/16/2025 2:40 PM CDT 01/16/2025 2:55 PM CDT us Casey Paz MD LAB BLOOD ORDERABLES Final Result [facility] [address] [facility] [place] [address] * (ABNORMAL) Differential, auto (01/16/2025 2:40 PM CDT) [facility] Neutrophil abs 5.04 1.50 - 6.50 K/cumm Comment:Testing performed by : [address] [address] Imm gran abs 0.05 0.00 - 0.10 K/cumm [place] Comment:Testing performed by : [address] [address] Lymphocyte abs 2.46 0.80 - 3.30 K/cumm [facility] Comment:Testing performed by : [address] [address] Monocyte abs 0.91(H) 0.20 - 0.80 K/cumm [facility] Comment:Testing performed by : [address] [address] Eosinophil abs 0.41 0.00 - 0.50 K/cumm [place] Comment:Testing performed by : [address] [address] Basophil abs 0.04 0.00 - 0.10 K/cumm [place] Comment:Testing performed by : [address] [address] Neutrophil pct 56.6 % [facility] Comment: Interpretive Data Percent cell count reference ranges are not reported, since discordance with absolute values may lead to misinterpretation of CBC data. Current Interpretive Data was last revised on 2017. Testing performed by: [address] [address] Imm gran pct 0.6 % [facility] Comment: Interpretive Data Percent cell count reference ranges are not reported, since discordance with absolute values may lead to misinterpretation of CBC data. Current Interpretive Data was last revised on 2017. Testing performed by: [address] [address] Lymphocyte pct 27.6 % [facility] Comment: Interpretive Data Percent cell count reference ranges are not reported, since discordance with absolute values may lead to misinterpretation of CBC data. Current Interpretive Data was last revised on 2017. Testing performed by: [address] [address] Monocyte pct 10.2 % [facility] Comment: Interpretive Data Percent cell count reference ranges are not reported, since discordance with absolute values may lead to misinterpretation of CBC data. Current Interpretive Data was last revised on 2017. Testing performed by: [address] [address] Eosinophil pct 4.6 % [facility] Comment: Interpretive Data Percent cell count reference ranges are not reported, since discordance with absolute values may lead to misinterpretation of CBC data. Current Interpretive Data was last revised on 2017. Testing performed by: [address] [address] Basophil pct 0.4 % [facility] Comment: Interpretive Data Percent cell count reference ranges are not reported, since discordance with absolute values may lead to misinterpretation of CBC data. Current Interpretive Data was last revised on 2017. Testing performed by: [address] [address] Blood 01/16/2025 2:40 PM CDT 01/16/2025 2:55 PM CDT Casey Paz MD LAB BLOOD ORDERABLES Final Result [facility] [address] [facility] [place] [address] * (ABNORMAL) CBC with auto differential (01/16/2025 2:40 PM CDT) WBC 8.91 3.80 - 9.90 K/cumm Comment:Testing performed by : [address] [address] Hgb 8.3(L) 13.0 - 17.5 g/dL [place] Comment:Testing performed by : [address] [address] Hct 24.2(L) 38.9 - 50.3 % [facility] Comment:Testing performed by : [address] [address] Plt 316 150 - 400 K/cumm [place] Comment:Testing performed by : [address] [address] MPV 10.1 9.1 - 12.3 fL [place] Comment:Testing performed by : [address] [address] RBC 2.80(L) 4.30 - 5.80 M/cumm [facility] Comment:Testing performed by : [address] [address] MCV 86.4 81.3 - 96.4 fL [place] Comment:Testing performed by : [address] [address] MCH 29.6 27.1 - 33.3 pg [place] Comment:Testing performed by : [address] [address] MCHC 34.3 32.3 - 35.7 g/dL [place] Comment:Testing performed by : [address] [address] RDW CV 21.2(H) 11.1 - 14.9 % [facility] Comment:Testing performed by : [address] [address] RDW SD 66.2(H) 35.7 - 48.1 fL [facility] SHETTY Comment:Testing performed by : [facility], [address] [place] [address]., [address] NRBC abs 0.07(H) 0.00 - 0.01 K/cumm [facility] SHETTY Comment:Testing performed by : [address] [address] Morphologic Screen Results confirmed by manual morphology review. [facility] SHETTY Comment:Testing performed by : [address] [address] Blood 01/16/2025 2:40 PM CDT 01/16/2025 2:55 PM CDT us Casey Paz MD LAB BLOOD ORDERABLES Final Result Performing Organization Address City/State/[facility] Co de Phone Number [place] [address] [facility] [place] [address] * XR Chest 1 View (01/16/2025 2:20 [...] Bradley Rushing M.D. MF: CALDERON Report ID: [id number] Reading Location: [id number] Procedure Note Bradley Rushing, DO - 01/16/2025 [...] Bradley Rushing M.D. MF: CALDERON Report ID: [id number] Reading Location: [place] [address] Casey Paz MD IMG XR PROCEDURES Final Re sult * Transfuse RBC (01/16/2025 2:09 PM CDT) Blood Casey Paz MD BLOOD TRANSFUSION ORDERABL ES Final Result [facility] [address] [facility] [place] [address] * Prepare RBC: 1 Units (01/16/2025 11:30 AM CDT) Units requested 1 Comment:Testing performed by : [address] [address] Units requested Ready [place] Comment:Testing performed by : [address] [address] Unit Number [id number] Product code [id number] [facility] Blood Expiration Date [id number] [facility] Product Blood Type (for scanning) 6200 [place] Product Blood Type APOS [place] Dispense Status DISPENSED [place] Blood 01/16/2025 11:3 0 AM CDT 01/16/2025 11:29 AM CDT Casey Paz MD BLOOD BANK PRODUCT ORDERAB LES Final Result Performing Organization Address [facility] Co de Phone Number KENYETTA[address] [place] [address] * ABO/Rh (01/16/2025 10:42 AM CDT) ABO/Rh A Positive Comment:Testing performed by : [facility], [address] [place] [address]., [address] Blood 01/16/2025 10:4 2 AM CDT 01/16/2025 10:47 AM CDT Narrative [facility] - 01/16/2025 11:25 AM CDT Has the patient had Daratumumab or Isatuximab in the past 6 months?->Unknown Casey Paz MD LAB BLOOD BANK TEST ORDERA BLES Final Result Performing Organization Address [facility] de Phone Number [address] [place] [address] * Crossmatch (01/16/2025 10:42 AM CDT) Pathologist [facility] Crossmatch Compatible [facility] Unit number for crossmatch [id number] [facility] Crossmatch Compatible [facility] Unit number for crossmatch [id number] [facility] Blood 01/16/2025 10:4 2 AM CDT 01/16/2025 10:47 AM CDT Casey Paz MD LAB BLOOD BANK TEST ORDERA BLES Final Result Performing Organization Address [facility] Co de Phone Number [address] [place] [address] * Antibody screen (01/16/2025 10:42 AM CDT) Yesenia, indirect, Gel Interpretation Negative ABSC Comment:Testing performed by : [facility], [address] [place] [address]., [address] Blood 01/16/2025 10:4 2 AM CDT 01/16/2025 10:47 AM CDT Narrative [facility] - 01/16/2025 11:25 AM CDT Has the patient had Daratumumab or Isatuximab in the past 6 months?->Unknown Casey Paz MD LAB BLOOD BANK TEST ORDERA BLES Final Result [address] [place] [address] * eGFR (01/16/2025 2:59 AM CDT) eGFR >90 >=60 mL/min/1. 73 [...] was last reviewed 2021. Testing performed by: [facility], [address] [place] [address]., [address] Blood 01/16/2025 2:59 AM CDT 01/16/2025 3:12 AM CDT us Rasta Garcia MD LAB BLOOD ORDERABLES Final Res ult [address] [place] [address] * (ABNORMAL) Differential, auto (01/16/2025 2:59 AM CDT) Neutrophil abs 4.31 1.50 - 6.50 K/cumm Comment:Testing performed by : [address] [address] Imm gran abs 0.03 0.00 - 0.10 K/cumm [place] Comment:Testing performed by : [address] [address] Lymphocyte abs 3.04 0.80 - 3.30 K/cumm [place] Comment:Testing performed by : [address] [address] Monocyte abs 0.81(H) 0.20 - 0.80 K/cumm [place] Comment:Testing performed by : [address] [address] Eosinophil abs 0.38 0.00 - 0.50 K/cumm [place] Comment:Testing performed by : [address] [address] Basophil abs 0.04 0.00 - 0.10 K/cumm [facility] Comment:Testing performed by : [address] [address] Neutrophil pct 50.1 % [facility] Comment: Interpretive Data Percent cell count reference ranges are not reported, since discordance with absolute values may lead to misinterpretation of CBC data. Current Interpretive Data was last revised on 2017. Testing performed by: [address] [address] Imm gran pct 0.3 % [facility] Comment: Interpretive Data Percent cell count reference ranges are not reported, since discordance with absolute values may lead to misinterpretation of CBC data. Current Interpretive Data was last revised on 2017. Testing performed by: [address] [address] Lymphocyte pct 35.3 % [facility] Comment: Interpretive Data Percent cell count reference ranges are not reported, since discordance with absolute values may lead to misinterpretation of CBC data. Current Interpretive Data was last revised on 2017. Testing performed by: [address] [address] Monocyte pct 9.4 % [facility] Comment: Interpretive Data Percent cell count reference ranges are not reported, since discordance with absolute values may lead to misinterpretation of CBC data. Current Interpretive Data was last revised on 2017. Testing performed by: [address] [address] Eosinophil pct 4.4 % [facility] Comment: Interpretive Data Percent cell count reference ranges are not reported, since discordance with absolute values may lead to misinterpretation of CBC data. Current Interpretive Data was last revised on 2017. Testing performed by: [address] [address] Basophil pct 0.5 % [facility] Comment: Interpretive Data Percent cell count reference ranges are not reported, since discordance with absolute values may lead to misinterpretation of CBC data. Current Interpretive Data was last revised on 2017. Testing performed by: [address] [address] Blood 01/16/2025 2:59 AM CDT 01/16/2025 3:13 AM CDT us Rasta Garcia MD LAB BLOOD ORDERABLES Final Res ult [facility] [address] [facility] [place] [address] * (ABNORMAL) CBC with auto differential (01/16/2025 2:59 AM CDT) WBC 8.61 3.80 - 9.90 K/cumm Comment:Testing performed by : [address] [address] Hgb 7.0(L) 13.0 - 17.5 g/dL [place] Comment:Testing performed by : [address] [address] Hct 19.8(L) 38.9 - 50.3 % [facility] Comment:Testing performed by : [address] [place]., [address] Plt 276 150 - 400 K/cumm [place] Comment:Testing performed by : [address] [address] MPV 10.1 9.1 - 12.3 fL [place] Comment:Testing performed by : [address] [address] RBC 2.31(L) 4.30 - 5.80 M/cumm [place] Comment:Testing performed by : [address] [address] MCV 85.7 81.3 - 96.4 fL [place] Comment:Testing performed by : [address], [address] MCH 30.3 27.1 - 33.3 pg [place] Comment:Testing performed by : [address], [address] MCHC 35.4 32.3 - 35.7 g/dL [place] Comment:Testing performed by : [address] [address] RDW CV 21.6(H) 11.1 - 14.9 % [facility] Comment:Testing performed by : [address], [address] RDW SD 65.4(H) 35.7 - 48.1 fL [place] Comment:Testing performed by : [address], [address] NRBC abs 0.07(H) 0.00 - 0.01 K/cumm [facility] Comment:Testing performed by : [address], [address] Morphologic Screen Results confirmed by manual morphology review. [facility] Comment:Testing performed by : [address], [address] Blood 01/16/2025 2:59 AM CDT 01/16/2025 3:13 AM CDT us Rasta Garcia MD LAB BLOOD ORDERABLES Final Res ult Performing Organization Address City/State/[facility] Co de Phone Number KENYETTA[address] [place] [address] * (ABNORMAL) Reticulocyte Count (01/16/2025 2:59 AM CDT) Retics, absolute 431(H) 20 - 87 K/cumm Comment:Testing performed by : [address] [address] Retics 18.7(H) 0.4 - 2.9 % [place] Comment:Testing performed by : [address] [address] Reticulocyte Hgb 28.0(L) 30.5 - 38.0 pg [place] SHETTY Comment:Testing performed by : [address] [address] Blood 01/16/2025 2:59 AM CDT 01/16/2025 3:13 AM CDT Rasta Garcia MD LAB BLOOD ORDERABLES Final Res ult Performing Organization Address [facility] Co de Phone Number KENY[address] [place] [address] * (ABNORMAL) Basic metabolic panel (01/16/2025 2:59 AM CDT) [facility] Sodium 138 135 - 145 mmol/L Comment:Testing performed by : [address] [address] Potassium, pl 3.2(L) 3.3 - 4.9 mmol/L [place] SHETTY Comment:Testing performed by : [address] [address] Chloride 103 97 - 110 mmol/L [place] SHETTY Comment:Testing performed by : [address] [address] CO2 25 22 - 32 mmol/L [place] SHETTY Comment:Testing performed by : [address] [address] Anion gap 10 2 - 15 mmol/L [place] SHETTY Comment:Testing performed by : [address] [address] BUN 3(L) 6 - 25 mg/dL [place] Comment:Testing performed by : [address] [address] Creatinine 0.49(L) 0.80 - 1.30 mg/dL [place] Comment:Testing performed by : [address] [address] Glucose 154 70 - 199 mg/dL [place] [...] was last revised 2022. Testing performed by: [address] [address] Calcium 8.7 8.5 - 10.3 mg/dL [place] Comment:Testing performed by : [address] [address] Blood 01/16/2025 2:59 AM CDT 01/16/2025 3:12 AM CDT us Rasta Garcia MD LAB BLOOD ORDERABLES Final Res ult [place] 23[address] [facility] [place] [address] * (ABNORMAL) Blood smear review (01/15/2025 5:38 AM CDT) RBC morphology Present(A) Comment:Testing performed by : [address] [address] Hypochromasia 3-7/HPF(A) [place] SHETTY Comment:Testing performed by : [address] [place] [address] Anisocytosis Moderate(A) [place] Comment:Testing performed by : [facility], [address] [place] [address], [place]., [address] Schistocytes 1-2/HPF(A) [place] Comment:Testing performed by : [facility], [address] [place] [address], [place]., [address] Sickle cells 1-2/HPF(A) [place] Comment:Testing performed by : [address], [place]., [address] Elliptocytes 8-15/HPF(A) [place] Comment:Testing performed by : [facility], [address] [place] [address], [place]., [address] Target cells 3-7/HPF(A) [place] Comment:Testing performed by : [facility], [address] [place] [address], [place]., [address] Acanthocytes 3-7/HPF(A) [facility] Comment:Testing performed by : [facility], [address] [place] [address], [place]., [address] Platelet estimate Adequate [place] Comment:Testing performed by : [facility], [address] [place] [address], [place]., [address] Blood 01/15/2025 5:38 AM CDT 01/15/2025 6:12 AM CDT us Rasta Garcia MD LAB BLOOD ORDERABLES Final Res ult [place] 757255 [facility] [place] [address] * eGFR (01/15/2025 5:38 AM CDT) eGFR [...] was last reviewed 2021. Testing performed by: [address] [address] Blood 01/15/2025 5:3 8 AM CDT 01/15/2025 6:12 AM CDT us Rasta Garcia MD LAB BLOOD ORDERABLES Final Res ult [place] 757258 [facility] [place] [address] * (ABNORMAL) Differential, auto (01/15/2025 5:38 AM CDT) Neutrophil abs 3.92 1.50 - 6.50 K/cumm Comment:Testing performed by : [address] [address] Imm gran abs 0.07 0.00 - 0.10 K/cumm [place] Comment:Testing performed by : [address] [address] Lymphocyte abs 3.68(H) 0.80 - 3.30 K/cumm [place] Comment:Testing performed by : [address] [address] Monocyte abs 0.80 0.20 - 0.80 K/cumm [place] Comment:Testing performed by : [address] [address] Eosinophil abs 0.40 0.00 - 0.50 K/cumm [place] Comment:Testing performed by : [address] [address] Basophil abs 0.04 0.00 - 0.10 K/cumm [place] Comment:Testing performed by : [address] [address] Neutrophil pct 44.0 % [facility] Comment: Interpretive Data Percent cell count reference ranges are not reported, since discordance with absolute values may lead to misinterpretation of CBC data. Current Interpretive Data was last revised on 2017. Testing performed by: [address] [address] Imm gran pct 0.8 % [facility] Comment: Interpretive Data Percent cell count reference ranges are not reported, since discordance with absolute values may lead to misinterpretation of CBC data. Current Interpretive Data was last revised on 2017. Testing performed by: [address] [address] Lymphocyte pct 41.3 % [facility] Comment: Interpretive Data Percent cell count reference ranges are not reported, since discordance with absolute values may lead to misinterpretation of CBC data. Current Interpretive Data was last revised on 2017. Testing performed by: [address] [address] Monocyte pct 9.0 % [facility] Comment: Interpretive Data Percent cell count reference ranges are not reported, since discordance with absolute values may lead to misinterpretation of CBC data. Current Interpretive Data was last revised on 2017. Testing performed by: [address] [address] Eosinophil pct 4.5 % [facility] Comment: Interpretive Data Percent cell count reference ranges are not reported, since discordance with absolute values may lead to misinterpretation of CBC data. Current Interpretive Data was last revised on 2017. Testing performed by: [address] [address] Basophil pct 0.4 % [facility] Comment: Interpretive Data Percent cell count reference ranges are not reported, since discordance with absolute values may lead to misinterpretation of CBC data. Current Interpretive Data was last revised on 2017. Testing performed by: [address] [address] Blood 01/15/2025 5:38 AM CDT 01/15/2025 6:12 AM CDT us Rasta Garcia MD LAB BLOOD ORDERABLES Final Res ult [place] 9580 [facility] [place] [address] * (ABNORMAL) CBC with auto differential (01/15/2025 5:38 AM CDT) WBC 8.91 3.80 - 9.90 K/cumm Comment:Testing performed by : [address] [address] Hgb 7.3(L) 13.0 - 17.5 g/dL [place] Comment:Testing performed by : [address] [address] Hct 21.4(L) 38.9 - 50.3 % [place] Comment:Testing performed by : [address] [address] Plt 316 150 - 400 K/cumm [place] Comment:Testing performed by : [address] [address] MPV 10.1 9.1 - 12.3 fL [place] Comment:Testing performed by : [address] [address] RBC 2.46(L) 4.30 - 5.80 M/cumm [place] Comment:Testing performed by : [address] [address] MCV 87.0 81.3 - 96.4 fL [place] Comment:Testing performed by : [address] [address] MCH 29.7 27.1 - 33.3 pg [place] SHETTY Comment:Testing performed by : [address] [address] MCHC 34.1 32.3 - 35.7 g/dL [place] Comment:Testing performed by : [address] [address] RDW CV 21.6(H) 11.1 - 14.9 % [place] SHETTY Comment:Testing performed by : [facility], [address] [place] [address]., [address] RDW SD 67.9(H) 35.7 - 48.1 fL [place] SHETTY Comment:Testing performed by : [address] [address] NRBC abs 0.13(H) 0.00 - 0.01 K/cumm [place] SHETTY Comment:Testing performed by : [address] [address] Blood 01/15/2025 5:38 AM CDT 01/15/2025 6:12 AM CDT us Rasta Garcia MD LAB BLOOD ORDERABLES Edited Re sult - Final Performing Organization Address [facility] de Phone Number [place] [address] [place] [address] * (ABNORMAL) Reticulocyte Count (01/15/2025 5:38 AM CDT) Retics, absolute 497(H) 20 - 87 K/cumm Comment:Testing performed by : [address] [address] Retics 20.2(H) 0.4 - 2.9 % [place] SHETTY Comment:Testing performed by : [address] [address] Reticulocyte Hgb 28.3(L) 30.5 - 38.0 pg [place] SHETTY Comment:Testing performed by : [address] [address] Blood 01/15/2025 5:38 AM CDT 01/15/2025 6:12 AM CDT us Rasta Garcia MD LAB BLOOD ORDERABLES Final Res ult Performing Organization Address [facility] de Phone Number [place] [address] [place] [address] * (ABNORMAL) Basic metabolic panel (01/15/2025 5:38 AM CDT) Sodium 136 135 - 145 mmol/L Comment:Testing performed by : [address] [address] Potassium, pl 3.2(L) 3.3 - 4.9 mmol/L [place] Comment:Testing performed by : [address] [address] Chloride 102 97 - 110 mmol/L [place] Comment:Testing performed by : [address] [address] CO2 24 22 - 32 mmol/L [place] Comment:Testing performed by : [address] [address] Anion gap 10 2 - 15 mmol/L [facility] Comment:Testing performed by : [address] [address] BUN 3(L) 6 - 25 mg/dL [facility] Comment:Testing performed by : [address] [address] Creatinine 0.44(L) 0.80 - 1.30 mg/dL [facility] Comment:Testing performed by : [address] [address] Glucose 116 70 - 199 mg/dL [facility] Comment: Interpretive Data Fasting glucose >/= 126 [...] was last revised 2022. Testing performed by: [address] [address] Calcium 9.0 8.5 - 10.3 mg/dL [place] Comment:Testing performed by : [address] [address] Blood 01/15/2025 5:38 AM CDT 01/15/2025 6:12 AM CDT us Rasta Garcia MD LAB BLOOD ORDERABLES Final Res ult [place] [address] [place] [address] * eGFR (01/14/2025 6:18 AM CDT) eGFR [...] was last reviewed 2021. Testing performed by: [facility], [address] [place] [address]., [address] Blood 01/14/2025 6:18 AM CDT 01/14/2025 6:28 AM CDT us Rasta Garcia MD LAB BLOOD ORDERABLES Final Res ult [place] [facility] [place] [address] * Differential, auto (01/14/2025 6:18 AM CDT) Neutrophil abs 4.75 1.50 - 6.50 K/cumm Comment:Testing performed by : [address], [place]., [address] Imm gran abs 0.04 0.00 - 0.10 K/cumm [facility] Comment:Testing performed by : [address], [place]., [address] Lymphocyte abs 3.30 0.80 - 3.30 K/cumm [facility] Comment:Testing performed by : [address], [place]., [address] Monocyte abs 0.76 0.20 - 0.80 K/cumm [facility] Comment:Testing performed by : [address], [place]., [address] Eosinophil abs 0.14 0.00 - 0.50 K/cumm [facility] Comment:Testing performed by : [address], [place]., [address] Basophil abs 0.04 0.00 - 0.10 K/cumm [facility] Comment:Testing performed by : [address] [address] Neutrophil pct 52.7 % [facility] Comment: Interpretive Data Percent cell count reference ranges are not reported, since discordance with absolute values may lead to misinterpretation of CBC data. Current Interpretive Data was last revised on 2017. Testing performed by: [address] [address] Imm gran pct 0.4 % [facility] Comment: Interpretive Data Percent cell count reference ranges are not reported, since discordance with absolute values may lead to misinterpretation of CBC data. Current Interpretive Data was last revised on 2017. Testing performed by: [address] [address] Lymphocyte pct 36.5 % [facility] Comment: Interpretive Data Percent cell count reference ranges are not reported, since discordance with absolute values may lead to misinterpretation of CBC data. Current Interpretive Data was last revised on 2017. Testing performed by: [address] [address] Monocyte pct 8.4 % [facility] Comment: Interpretive Data Percent cell count reference ranges are not reported, since discordance with absolute values may lead to misinterpretation of CBC data. Current Interpretive Data was last revised on 2017. Testing performed by: [address] [address] Eosinophil pct 1.6 % [facility] Comment: Interpretive Data Percent cell count reference ranges are not reported, since discordance with absolute values may lead to misinterpretation of CBC data. Current Interpretive Data was last revised on 2017. Testing performed by: [address] [address] Basophil pct 0.4 % [facility] Comment: Interpretive Data Percent cell count reference ranges are not reported, since discordance with absolute values may lead to misinterpretation of CBC data. Current Interpretive Data was last revised on 2017. Testing performed by: [address] [address] Blood 01/14/2025 6:18 AM CDT 01/14/2025 6:28 AM CDT us Rasta Garcia MD LAB BLOOD ORDERABLES Final Res ult [facility] [address] [facility] [place] [address] * (ABNORMAL) CBC with auto differential (01/14/2025 6:18 AM CDT) WBC 9.03 3.80 - 9.90 K/cumm Comment:Testing performed by : [address] [address] Hgb 7.5(L) 13.0 - 17.5 g/dL [facility] Comment:Testing performed by : [address] [address] Hct 21.8(L) 38.9 - 50.3 % [facility] Comment:Testing performed by : [address] [address] Plt 287 150 - 400 K/cumm [facility] Comment:Testing performed by : [address] [address] MPV 10.1 9.1 - 12.3 fL [place] SHETTY Comment:Testing performed by : [address] [address] RBC 2.47(L) 4.30 - 5.80 M/cumm [facility] SHETTY Comment:Testing performed by : [address] [address] MCV 88.3 81.3 - 96.4 fL [place] SHETTY Comment:Testing performed by : [address] [address] MCH 30.4 27.1 - 33.3 pg [place] SHETTY Comment:Testing performed by : [address] [address] MCHC 34.4 32.3 - 35.7 g/dL [facility] SHETTY Comment:Testing performed by : [address] [address] RDW CV 22.0(H) 11.1 - 14.9 % [facility] SHETTY Comment:Testing performed by : [address] [address] RDW SD 69.9(H) 35.7 - 48.1 fL [place] SHETTY Comment:Testing performed by : [address] [address] NRBC abs 0.18(H) 0.00 - 0.01 K/cumm [facility] SHETTY Comment:Testing performed by : [address] [address] Morphologic Screen Results confirmed by manual morphology review. [place] SHETTY Comment:Testing performed by : [address] [address] Blood 01/14/2025 6:18 AM CDT 01/14/2025 6:28 AM CDT us Rasta Garcia MD LAB BLOOD ORDERABLES Edited Re sult - Final [place] 7075 [facility] [place] [address] * (ABNORMAL) Reticulocyte Count (01/14/2025 6:18 AM CDT) Pathologist [facility] Retics, absolute 537(H) 20 - 87 K/cumm Comment:Testing performed by : [address] [address] Retics 21.5(H) 0.4 - 2.9 % [place] Comment:Testing performed by : [address] [address] Reticulocyte Hgb 28.4(L) 30.5 - 38.0 pg [place] Comment:Testing performed by : [address] [address] Blood 01/14/2025 6:18 AM CDT 01/14/2025 6:28 AM CDT us Rasta Garcia MD LAB BLOOD ORDERABLES Final Res ult Performing Organization Address City/State/[facility] Co de Phone Number [place] [facility] [place] [address] * (ABNORMAL) Basic metabolic panel (01/14/2025 6:18 AM CDT) [facility] Sodium 137 135 - 145 mmol/L Comment:Testing performed by : [address] [address] Potassium, pl 3.5 3.3 - 4.9 mmol/L [place] SHETTY Comment:Testing performed by : [address] [address] Chloride 103 97 - 110 mmol/L [place] Comment:Testing performed by : [address] [address] CO2 24 22 - 32 mmol/L [place] SHETTY Comment:Testing performed by : [address] [address] Anion gap 10 2 - 15 mmol/L [place] SHETTY Comment:Testing performed by : [address] [address] BUN 2(L) 6 - 25 mg/dL [place] SHETTY Comment:Testing performed by : [address] [place] [address] Creatinine 0.45(L) 0.80 - 1.30 mg/dL [place] Comment:Testing performed by : [address] [address] Glucose 141 70 - 199 mg/dL [place] [...] was last revised 2022. Testing performed by: [address] [address] Calcium 8.8 8.5 - 10.3 mg/dL [place] Comment:Testing performed by : [address] [address] Blood 01/14/2025 6:18 AM CDT 01/14/2025 6:28 AM CDT us Rasta Garcia MD LAB BLOOD ORDERABLES Final Res ult [place] 3337 [facility] [place] [address] * XR Chest PA Lateral 2 Views [...] Gee Laboy D.O. AP: AP Report ID: [id number] Reading Location: [id number] Procedure Note Gee Laboy, DO - 01/11/2025 EXAM DESCRIPTION: XR CHEST [...] Gee Laboy D.O. AP: AP Report ID: [id number] Reading Location: [id number] us Casey Paz MD IMG XR PROCEDURES [...] was last reviewed 2021. Testing performed by: [address] [address] Blood 01/11/2025 1:12 PM CDT 01/11/2025 1:15 PM CDT us Rasta Garcia MD LAB BLOOD ORDERABLES Final Res ult [place] 8836 [facility] [place] [address] * (ABNORMAL) CBC with auto differential (01/11/2025 1:12 PM CDT) [facility] WBC 10.21(H) 3.80 - 9.90 K/cumm Comment:Testing performed by : [address] [address] Hgb 8.3(L) 13.0 - 17.5 g/dL [place] SHETTY Comment:Testing performed by : [address] [address] Hct 24.3(L) 38.9 - 50.3 % [facility] Comment:Testing performed by : [address] [address] Plt 379 150 - 400 K/cumm [place] SHETTY Comment:Testing performed by : [address] [address] MPV 9.9 9.1 - 12.3 fL [place] SHETTY Comment:Testing performed by : [address] [address] RBC 2.82(L) 4.30 - 5.80 M/cumm [place] SHETTY Comment:Testing performed by : [address], [address] MCV 86.2 81.3 - 96.4 fL [place] Comment:Testing performed by : [address], [address] MCH 29.4 27.1 - 33.3 pg [place] SHETTY Comment:Testing performed by : [address], [address] MCHC 34.2 32.3 - 35.7 g/dL [place] Comment:Testing performed by : [address], [address] RDW CV 23.4(H) 11.1 - 14.9 % [place] Comment:Testing performed by : [address], [address] RDW SD 70.7(H) 35.7 - 48.1 fL [place] Comment:Testing performed by : [address], [address] NRBC abs 0.23(H) 0.00 - 0.01 K/cumm [place] Comment:Testing performed by : [address], [address] Blood 01/11/2025 1:12 PM CDT 01/11/2025 1:15 PM CDT us Rasta Garcia MD LAB BLOOD ORDERABLES Edited Re sult - Final [place] 6750 [facility] Department of Laboratories [place], [place] [id number] * (ABNORMAL) Manual Differential (01/11/2025 1:12 PM CDT) Differential Manual Comment:Testing performed by : [address] [address] [facility]ed 100 [facility] Comment:Testing performed by : [address], [place]., [address] Neutrophil abs 4.90 1.50 - 6.50 K/cumm [place] Comment:Testing performed by : [address], [place]., [address] Lymphocyte abs 4.39(H) 0.80 - 3.30 K/cumm [place] Comment:Testing performed by : [address], [place]., [address] Monocyte abs 0.51 0.20 - 0.80 K/cumm [facility] Comment:Testing performed by : [address], [place]., [address] Eosinophil abs 0.41 0.00 - 0.50 K/cumm [place] Comment:Testing performed by : [address] [address] Neutrophil pct 48.0 % [facility] Comment: Interpretive Data Percent cell count reference ranges are not reported, since discordance with absolute values may lead to misinterpretation of CBC data. Current Interpretive Data was last revised on 2017. Testing performed by: [address] [address] Lymphocyte pct 43.0 % [facility] Comment: Interpretive Data Percent cell count reference ranges are not reported, since discordance with absolute values may lead to misinterpretation of CBC data. Current Interpretive Data was last revised on 2017. Testing performed by: [address] [address] Monocyte pct 5.0 % [facility] Comment: Interpretive Data Percent cell count reference ranges are not reported, since discordance with absolute values may lead to misinterpretation of CBC data. Current Interpretive Data was last revised on 2017. Testing performed by: [address] [address] Eosinophil pct 4.0 % [place] Comment: Interpretive Data Percent cell count reference ranges are not reported, since discordance with absolute values may lead to misinterpretation of CBC data. Current Interpretive Data was last revised on 2017. Testing performed by: [address] [address] RBC morphology Present(A) [place] Comment:Testing performed by : [address] [address] Polychromasia 3-7/HPF(A) [place] Comment:Testing performed by : [address] [address] Anisocytosis Marked(A) [place] Comment:Testing performed by : [address] [address] Sickle cells 1-2/HPF(A) [place] Comment:Testing performed by : [address] [address] Elliptocytes 8-15/HPF(A) [place] Comment:Testing performed by : [address] [address] Teardrop cells 3-7/HPF(A) [place] Comment:Testing performed by : [address] [address] Platelet morphology Normal [place] Comment:Testing performed by : [address] [address] Platelet estimate Adequate [place] Comment:Testing performed by : [address] [address] Blood 01/11/2025 1:12 PM CDT 01/11/2025 1:15 PM CDT us Rasta Garcia MD LAB BLOOD ORDERABLES Final Res ult [place] 6622 [facility] [place] [address] * (ABNORMAL) Reticulocyte Count (01/11/2025 1:12 PM CDT) Retics, absolute 585(H) 20 - 87 K/cumm Comment:Testing performed by : [address] [address] Retics 20.8(H) 0.4 - 2.9 % [place] Comment:Testing performed by : [address] [address] Reticulocyte Hgb 30.1(L) 30.5 - 38.0 pg [place] SHETTY Comment:Testing performed by : [address] [address] Blood 01/11/2025 1:12 PM CDT 01/11/2025 1:15 PM CDT us Rasta Garcia MD LAB BLOOD ORDERABLES Final Res ult [place] 4500 [facility] [place] [address] * (ABNORMAL) Basic metabolic panel (01/11/2025 1:12 PM CDT) Sodium 138 135 - 145 mmol/L Comment:Testing performed by : [address] [address] Potassium, pl 3.7 3.3 - 4.9 mmol/L [facility] Comment:Testing performed by : [address] [address] Chloride 103 97 - 110 mmol/L [place] Comment:Testing performed by : [address] [address] CO2 24 22 - 32 mmol/L [place] Comment:Testing performed by : [address] [address] Anion gap 11 2 - 15 mmol/L [facility] Comment:Testing performed by : [address] [address] BUN 2(L) 6 - 25 mg/dL [facility] Comment:Testing performed by : [address] [address] Creatinine 0.50(L) 0.80 - 1.30 mg/dL [place] Comment:Testing performed by : [address] [address] Glucose 110 70 - 199 mg/dL [place] SHETTY Comment: [...] was last revised 2022. Testing performed by: [facility], [address] [place] [address]., [address] Calcium 8.7 8.5 - 10.3 mg/dL [place] Comment:Testing performed by : [facility], [address] [place] [address]., [address] Blood 01/11/2025 1:12 PM CDT 01/11/2025 1:15 PM CDT us Rasta Garcia MD LAB BLOOD ORDERABLES Final Res ult [place] 1465 [facility] [place] [address] * XR Chest 1 View (01/10/2025 1:39 [...] Anne Merchant M.D. FT: FT Report ID: [id number] Reading Location: [id number] Procedure Note Anne Hernandes MD - 01/10/2025 [...] Anne Merchant M.D. FT: FT Report ID: [id number] Reading Location: [id number] Jayadoreen Garcia DO IMG XR PROCEDURES Final Result [...] was last reviewed 2021. Testing performed by: [address] [address] Blood 01/10/2025 10:2 9 AM CDT 01/10/2025 10:53 AM CDT us Rasta Garcia MD LAB BLOOD ORDERABLES Final Res ult [place] 7220 [facility] [place] [address] * (ABNORMAL) Differential, auto (01/10/2025 10:29 AM CDT) Neutrophil abs 4.63 1.50 - 6.50 K/cumm Comment:Testing performed by : [address] [address] Imm gran abs 0.08 0.00 - 0.10 K/cumm [place] Comment:Testing performed by : [address] [address] Lymphocyte abs 4.22(H) 0.80 - 3.30 K/cumm [place] Comment:Testing performed by : [address] [address] Monocyte abs 0.96(H) 0.20 - 0.80 K/cumm [place] Comment:Testing performed by : [address] [address] Eosinophil abs 0.20 0.00 - 0.50 K/cumm [facility] Comment:Testing performed by : [address] [address] Basophil abs 0.06 0.00 - 0.10 K/cumm [place] Comment:Testing performed by : [address] [address] Neutrophil pct 45.5 % [facility] Comment: Interpretive Data Percent cell count reference ranges are not reported, since discordance with absolute values may lead to misinterpretation of CBC data. Current Interpretive Data was last revised on 2017. Testing performed by: [address] [address] Imm gran pct 0.8 % [facility] Comment: Interpretive Data Percent cell count reference ranges are not reported, since discordance with absolute values may lead to misinterpretation of CBC data. Current Interpretive Data was last revised on 2017. Testing performed by: [address] [address] Lymphocyte pct 41.6 % [facility] Comment: Interpretive Data Percent cell count reference ranges are not reported, since discordance with absolute values may lead to misinterpretation of CBC data. Current Interpretive Data was last revised on 2017. Testing performed by: [address] [address] Monocyte pct 9.5 % [facility] Comment: Interpretive Data Percent cell count reference ranges are not reported, since discordance with absolute values may lead to misinterpretation of CBC data. Current Interpretive Data was last revised on 2017. Testing performed by: [address] [address] Eosinophil pct 2.0 % [facility] Comment: Interpretive Data Percent cell count reference ranges are not reported, since discordance with absolute values may lead to misinterpretation of CBC data. Current Interpretive Data was last revised on 2017. Testing performed by: [address] [address] Basophil pct 0.6 % [facility] Comment: Interpretive Data Percent cell count reference ranges are not reported, since discordance with absolute values may lead to misinterpretation of CBC data. Current Interpretive Data was last revised on 2017. Testing performed by: [address] [address] Blood 01/10/2025 10:2 9 AM CDT 01/10/2025 10:52 AM CDT us Rasta Garcia MD LAB BLOOD ORDERABLES Final Res ult [facility] [address] [facility] [place] [address] * (ABNORMAL) CBC with auto differential (01/10/2025 10:29 AM CDT) WBC 10.15(H) 3.80 - 9.90 K/cumm Comment:Testing performed by : [address] [address] Hgb 7.5(L) 13.0 - 17.5 g/dL [facility] Comment:Testing performed by : [address] [address] Hct 22.0(L) 38.9 - 50.3 % [facility] Comment:Testing performed by : [address] [address] Plt 324 150 - 400 K/cumm [facility] Comment:Testing performed by : [address] [address] MPV 10.3 9.1 - 12.3 fL [facility] Comment:Testing performed by : [address] [address] RBC 2.51(L) 4.30 - 5.80 M/cumm [facility] Comment:Testing performed by : [address] [address] MCV 87.6 81.3 - 96.4 fL [facility] Comment:Testing performed by : [address] [address] MCH 29.9 27.1 - 33.3 pg [facility] Comment:Testing performed by : [address] [address] MCHC 34.1 32.3 - 35.7 g/dL [facility] Comment:Testing performed by : [address] [address] RDW CV 22.9(H) 11.1 - 14.9 % [facility] Comment:Testing performed by : [address] [address] RDW SD 69.4(H) 35.7 - 48.1 fL [facility] Comment:Testing performed by : [address] [address] NRBC abs 0.15(H) 0.00 - 0.01 K/cumm [facility] SHETTY Comment:Testing performed by : [address] [address] Morphologic Screen Results confirmed by manual morphology review. [facility] Comment:Testing performed by : [address] [address] Blood 01/10/2025 10:2 9 AM CDT 01/10/2025 10:52 AM CDT us Rasta Garcia MD LAB BLOOD ORDERABLES Edited Re sult - Final Performing Organization Address [facility] de Phone Number [facility] [address] [place] [place] [address] * (ABNORMAL) Reticulocyte Count (01/10/2025 10:29 AM CDT) Retics, absolute 624(H) 20 - 87 K/cumm Comment:Testing performed by : [address] [address] Retics 21.5(H) 0.4 - 2.9 % [facility] Comment:Testing performed by : [address] [address] Reticulocyte Hgb 28.1(L) 30.5 - 38.0 pg [facility] Comment:Testing performed by : [address] [address] Blood 01/10/2025 10:2 9 AM CDT 01/10/2025 10:52 AM CDT us Rasta Garcia MD LAB BLOOD ORDERABLES Final Res ult Performing Organization Address [facility] de Phone Number [facility] [place] [address] * (ABNORMAL) Basic metabolic panel (01/10/2025 10:29 AM CDT) Sodium 138 135 - 145 mmol/L Comment:Testing performed by : [address] [address] Potassium, pl 3.5 3.3 - 4.9 mmol/L [facility] Comment:Testing performed by : [address] [address] Chloride 104 97 - 110 mmol/L [facility] Comment:Testing performed by : [address] [address] CO2 24 22 - 32 mmol/L [facility] Comment:Testing performed by : [address] [address] Anion gap 10 2 - 15 mmol/L [facility] Comment:Testing performed by : [address] [address] BUN 2(L) 6 - 25 mg/dL [facility] Comment:Testing performed by : [address] [address] Creatinine 0.50(L) 0.80 - 1.30 mg/dL [facility] Comment:Testing performed by : [address] [address] Glucose 98 70 - 199 mg/dL [facility] Comment: Interpretive Data Fasting glucose >/= 126 [...] was last revised 2022. Testing performed by: [address] [address] Calcium 8.4(L) 8.5 - 10.3 mg/dL [facility] Comment:Testing performed by : [address] [address] Blood 01/10/2025 10:2 9 AM CDT 01/10/2025 10:53 AM CDT Rasta Garcia MD LAB BLOOD ORDERABLES Final Res ult [facility] [address] [facility] [place] [address] * (ABNORMAL) Differential, auto (01/09/2025 4:55 AM CDT) Neutrophil abs 4.56 1.50 - 6.50 K/cumm Comment:Testing performed by : [address] [address] Imm gran abs 0.05 0.00 - 0.10 K/cumm [facility] Comment:Testing performed by : [address] [address] Lymphocyte abs 3.68(H) 0.80 - 3.30 K/cumm [facility] Comment:Testing performed by : [address] [address] Monocyte abs 1.48(H) 0.20 - 0.80 K/cumm [facility] Comment:Testing performed by : [address] [address] Eosinophil abs 0.24 0.00 - 0.50 K/cumm [facility] Comment:Testing performed by : [address] [address] Basophil abs 0.06 0.00 - 0.10 K/cumm [facility] Comment:Testing performed by : [address] [address] Neutrophil pct 45.3 % [facility] Comment: Interpretive Data Percent cell count reference ranges are not reported, since discordance with absolute values may lead to misinterpretation of CBC data. Current Interpretive Data was last revised on 2017. Testing performed by: [address] [address] Imm gran pct 0.5 % [facility] Comment: Interpretive Data Percent cell count reference ranges are not reported, since discordance with absolute values may lead to misinterpretation of CBC data. Current Interpretive Data was last revised on 2017. Testing performed by: [address] [address] Lymphocyte pct 36.5 % [facility] Comment: Interpretive Data Percent cell count reference ranges are not reported, since discordance with absolute values may lead to misinterpretation of CBC data. Current Interpretive Data was last revised on 2017. Testing performed by: [address] [address] Monocyte pct 14.7 % [facility] Comment: Interpretive Data Percent cell count reference ranges are not reported, since discordance with absolute values may lead to misinterpretation of CBC data. Current Interpretive Data was last revised on 2017. Testing performed by: [address] [address] Eosinophil pct 2.4 % [facility] Comment: Interpretive Data Percent cell count reference ranges are not reported, since discordance with absolute values may lead to misinterpretation of CBC data. Current Interpretive Data was last revised on 2017. Testing performed by: [address] [address] Basophil pct 0.6 % [facility] Comment: Interpretive Data Percent cell count reference ranges are not reported, since discordance with absolute values may lead to misinterpretation of CBC data. Current Interpretive Data was last revised on 2017. Testing performed by: [address] [address] Blood 01/09/2025 4:55 AM CDT 01/09/2025 4:59 AM CDT us Rasta Garcia MD LAB BLOOD ORDERABLES Final Res ult [facility] SHETT[facility] [address] [facility] [place] [address] * (ABNORMAL) CBC with auto differential (01/09/2025 4:55 AM CDT) WBC 10.07(H) 3.80 - 9.90 K/cumm Comment:Testing performed by : [address], [address] Hgb 7.3(L) 13.0 - 17.5 g/dL [facility] Comment:Testing performed by : [address] [address] Hct 21.4(L) 38.9 - 50.3 % [facility] Comment:Testing performed by : [address] [address] Plt 285 150 - 400 K/cumm [facility] Comment:Testing performed by : [address], [address] MPV 10.1 9.1 - 12.3 fL [facility] Comment:Testing performed by : [address], [address] RBC 2.44(L) 4.30 - 5.80 M/cumm [facility] Comment:Testing performed by : [address], [address] MCV 87.7 81.3 - 96.4 fL [facility] Comment:Testing performed by : [address], [address] MCH 29.9 27.1 - 33.3 pg [facility] Comment:Testing performed by : [address], [address] MCHC 34.1 32.3 - 35.7 g/dL [facility] Comment:Testing performed by : [address], [address] RDW CV 22.1(H) 11.1 - 14.9 % [facility] Comment:Testing performed by : [address], [address] RDW SD 67.3(H) 35.7 - 48.1 fL [facility] Comment:Testing performed by : [address], [address] NRBC abs 0.19(H) 0.00 - 0.01 K/cumm [facility] Comment:Testing performed by : [address] [address] Morphologic Screen Results confirmed by manual morphology review. [facility] Comment:Testing performed by : [address] [address] Blood 01/09/2025 4:55 AM CDT 01/09/2025 4:59 AM CDT Ratsa Garcia MD LAB BLOOD ORDERABLES Final Res ult Performing Organization Address [facility] de Phone Number [facility] [address] [place] [address] * (ABNORMAL) Reticulocyte Count (01/09/2025 4:55 AM CDT) Pathologist [facility] [place] Retics, absolute 566(H) 20 - 87 K/cumm Comment:Testing performed by : [address] [address] Retics 23.2(H) 0.4 - 2.9 % [facility] Comment:Testing performed by : [address] [address] Reticulocyte Hgb 28.1(L) 30.5 - 38.0 pg [facility] Comment:Testing performed by : [address] [address] Blood 01/09/2025 4:55 AM CDT 01/09/2025 4:59 AM CDT us Rasta Garcia MD LAB BLOOD ORDERABLES Final Res ult Performing Organization Address [facility] de Phone Number [address] [place] [address] * eGFR (01/09/2025 4:50 AM CDT) [facility] eGFR >90 >=60 mL/min/1. 73 m2 Comment: [...] was last reviewed 2021. Testing performed by: [address] [address] Blood 01/09/2025 4:50 AM CDT 01/09/2025 4:59 AM CDT Rasta Garcia MD LAB BLOOD ORDERABLES Final Res ult [facility] [address] [facility] Department of Laboratories [place], [place] [id number] * (ABNORMAL) Basic metabolic panel (01/09/2025 4:50 AM CDT) Sodium 137 135 - 145 mmol/L Comment:Testing performed by : [address] [address] Potassium, pl 3.9 3.3 - 4.9 mmol/L [facility] Comment:Testing performed by : [address] [address] Chloride 102 97 - 110 mmol/L [facility] Comment:Testing performed by : [address] [address] CO2 23 22 - 32 mmol/L [facility] Comment:Testing performed by : [address] [address] Anion gap 12 2 - 15 mmol/L [facility] Comment:Testing performed by : [address] [address] BUN 4(L) 6 - 25 mg/dL [facility] Comment:Testing performed by : [address] [address] Creatinine 0.56(L) 0.80 - 1.30 mg/dL [facility] Comment:Testing performed by : [address] [address] Glucose 109 70 - 199 mg/dL [facility] [...] was last revised 2022. Testing performed by: [address] [address] Calcium 8.8 8.5 - 10.3 mg/dL [facility] Comment:Testing performed by : [address] [address] Blood 01/09/2025 4:50 AM CDT 01/09/2025 4:59 AM CDT us Rasta Garcia MD LAB BLOOD ORDERABLES Final Res ult [facility] [address] [facility] [place] [address] * CT Abdomen Pelvis WO Contrast (01/08/2025 [...] Anival Cotton M.D. NS: NS Report ID: [id number] Reading Location: [place] [address] Procedure Note Anival Cotton MD - 01/08/2025 [...] Anival Cotton M.D. NS: NS Report ID: [id number] Reading Location: [id number] us Jaya Garcia DO IMG CT PROCEDURES Final Result * eGFR (01/07/2025 10:48 AM CDT) Pathologist [facility] eGFR >90 >=60 mL/min/1. 73 m2 Comment: [...] was last reviewed 2021. Testing performed by: [address] [address] Blood 01/07/2025 10:4 8 AM CDT 01/07/2025 11:07 AM CDT us Rasta Garcia MD LAB BLOOD ORDERABLES Final Res ult [facility] [address] [facility] Department [place] [address] * (ABNORMAL) CBC with auto differential (01/07/2025 10:48 AM CDT) [facility] WBC 8.71 3.80 - 9.90 K/cumm Comment:Testing performed by : [address] [address] Hgb 8.0(L) 13.0 - 17.5 g/dL [facility] SHETTY Comment:Testing performed by : [address] [address] Hct 23.2(L) 38.9 - 50.3 % [facility] Comment:Testing performed by : [address] [address]96 Plt 324 150 - 400 K/cumm [facility] Comment:Testing performed by : [address] [address] MPV 10.3 9.1 - 12.3 fL [facility] Comment:Testing performed by : [address], [address] RBC 2.58(L) 4.30 - 5.80 M/cumm [facility] Comment:Testing performed by : [address], [address] MCV 89.9 81.3 - 96.4 fL [facility] Comment:Testing performed by : [address], [address] MCH 31.0 27.1 - 33.3 pg [facility] Comment:Testing performed by : [address], [address] MCHC 34.5 32.3 - 35.7 g/dL [facility] Comment:Testing performed by : [address], [address] RDW CV 21.6(H) 11.1 - 14.9 % [facility] Comment:Testing performed by : [address], [address] RDW SD 68.9(H) 35.7 - 48.1 fL [facility] Comment:Testing performed by : [address], [address] NRBC abs 0.26(H) 0.00 - 0.01 K/cumm [facility] Comment:Testing performed by : [address], [address] Blood 01/07/2025 10:4 8 AM CDT 01/07/2025 11:07 AM CDT Jaya Garcia DO LAB BLOOD ORDERABLES Edited Resu lt - Final [facility] [address] [facility] [place] [address] * (ABNORMAL) Manual Differential (01/07/2025 10:48 AM CDT) Differential Manual Comment:Testing performed by : [address] [address] Cells Counted 100 [facility] Comment:Testing performed by : [address] [address] Neutrophil abs 3.92 1.50 - 6.50 K/cumm [facility] Comment:Testing performed by : [address] [address] Lymphocyte abs 4.44(H) 0.80 - 3.30 K/cumm [facility] Comment:Testing performed by : [address] [address] Monocyte abs 0.26 0.20 - 0.80 K/cumm [facility] Comment:Testing performed by : [address] [address] Eosinophil abs 0.09 0.00 - 0.50 K/cumm [facility] Comment:Testing performed by : [address] [address] Neutrophil pct 45.0 % [facility] Comment: Interpretive Data Percent cell count reference ranges are not reported, since discordance with absolute values may lead to misinterpretation of CBC data. Current Interpretive Data was last revised on 2017. Testing performed by: [address] [address] Lymphocyte pct 51.0 % [facility] Comment: Interpretive Data Percent cell count reference ranges are not reported, since discordance with absolute values may lead to misinterpretation of CBC data. Current Interpretive Data was last revised on 2017. Testing performed by: [address] [address] Monocyte pct 3.0 % [facility] Comment: Interpretive Data Percent cell count reference ranges are not reported, since discordance with absolute values may lead to misinterpretation of CBC data. Current Interpretive Data was last revised on 2017. Testing performed by: [facility], [address] [place] [address]., [address] Eosinophil pct 1.0 % [facility] Comment: Interpretive Data Percent cell count reference ranges are not reported, since discordance with absolute values may lead to misinterpretation of CBC data. Current Interpretive Data was last revised on 2017. Testing performed by: [address], [place]., [address] RBC morphology Present(A) [facility] Comment:Testing performed by : [address], [place]., [address] Anisocytosis Marked(A) [facility] Comment:Testing performed by : [address] [address] Sickle cells 1-2/HPF(A) [facility] Comment:Testing performed by : [address] [address] Elliptocytes 3-7/HPF(A) [facility] Comment:Testing performed by : [address], [place]., [address] Target cells 3-7/HPF(A) [facility] Comment:Testing performed by : [address] [address] Platelet morphology Normal [facility] Comment:Testing performed by : [address] [address] Platelet estimate Adequate [facility] Comment:Testing performed by : [address] [address] Blood 01/07/2025 10:4 8 AM CDT 01/07/2025 11:07 AM CDT us Jaya Garcia DO LAB BLOOD ORDERABLES Final Resul t [facility] [address] [facility] Department [place] [address] * (ABNORMAL) Reticulocyte Count (01/07/2025 10:48 AM CDT) Retics, absolute 559(H) 20 - 87 K/cumm Comment:Testing performed by : [facility], [address] [place] [address]., [address] Retics 20.7(H) 0.4 - 2.9 % [facility] Comment:Testing performed by : [address] [address] Reticulocyte Hgb 28.5(L) 30.5 - 38.0 pg [facility] Comment:Testing performed by : [address] [address] Blood 01/07/2025 10:4 8 AM CDT 01/07/2025 11:07 AM CDT us Rasta Garcia MD LAB BLOOD ORDERABLES Final Res ult [facility] [address] [facility] [place] [address] * (ABNORMAL) Basic metabolic panel (01/07/2025 10:48 AM CDT) Sodium 141 135 - 145 mmol/L Comment:Testing performed by : [address] [address] Potassium, pl 3.3 3.3 - 4.9 mmol/L [facility] Comment:Testing performed by : [address] [address] Chloride 104 97 - 110 mmol/L [facility] Comment:Testing performed by : [address] [address] CO2 25 22 - 32 mmol/L [facility] Comment:Testing performed by : [address] [address] Anion gap 12 2 - 15 mmol/L [facility] Comment:Testing performed by : [address] [address] BUN 2(L) 6 - 25 mg/dL [facility] Comment:Testing performed by : [address] [address] Creatinine 0.50(L) 0.80 - 1.30 mg/dL [facility] Comment:Testing performed by : [address] [address] Glucose 162 70 - 199 mg/dL [facility] [...] was last revised 2022. Testing performed by: [address] [address] Calcium 8.6 8.5 - 10.3 mg/dL [facility] Comment:Testing performed by : [address] [address] Blood 01/07/2025 10:4 8 AM CDT 01/07/2025 11:07 AM CDT us Rasta Garcia MD LAB BLOOD ORDERABLES Final Res ult [facility] [address] [facility] [place] [address] * eGFR (01/06/2025 6:52 AM CDT) eGFR [...] was last reviewed 2021. Testing performed by: [address] [address] Blood 01/06/2025 6:52 AM CDT 01/06/2025 7:14 AM CDT us Rasta Garcia MD LAB BLOOD ORDERABLES Final Res ult [facility] [address] [facility] [place] [address] * (ABNORMAL) Basic metabolic panel (01/06/2025 6:52 AM CDT) Sodium 139 135 - 145 mmol/L Comment:Testing performed by : [address] [address] Potassium, pl 3.7 3.3 - 4.9 mmol/L [facility] Comment:Testing performed by : [address] [address] Chloride 103 97 - 110 mmol/L [facility] Comment:Testing performed by : [address] [address] CO2 23 22 - 32 mmol/L [facility] Comment:Testing performed by : [address] [address] Anion gap 13 2 - 15 mmol/L [facility] Comment:Testing performed by : [address] [address] BUN 2(L) 6 - 25 mg/dL [facility] Comment:Testing performed by : [address] [address] Creatinine 0.50(L) 0.80 - 1.30 mg/dL [facility] Comment:Testing performed by : [address] [address] Glucose 95 70 - 199 mg/dL [facility] SHETTY Comment: [...] was last revised 2022. Testing performed by: [facility], [address] [place] [address]., [address] Calcium 8.6 8.5 - 10.3 mg/dL [facility] SHETT[facility] Comment:Testing performed by : [facility], [address] [place] [address]., [address] Blood 01/06/2025 6:52 AM CDT 01/06/2025 7:14 AM CDT us Rasta Garcia MD LAB BLOOD ORDERABLES Final Res ult [facility] [address] [facility] [place] [address] * eGFR (01/04/2025 7:27 AM [...] was last reviewed 2021. Testing performed by: [address] [address] Blood 01/04/2025 7:27 AM CDT 01/04/2025 7:34 AM CDT us Rasta Garcia MD LAB BLOOD ORDERABLES Final Res ult [facility] [address] [facility] [place] [address] * (ABNORMAL) CBC with auto differential (01/04/2025 7:27 AM CDT) WBC 10.50(H) 3.80 - 9.90 K/cumm Comment:Testing performed by : [address] [address] Hgb 8.4(L) 13.0 - 17.5 g/dL [facility] Comment:Testing performed by : [address] [address] Hct 25.3(L) 38.9 - 50.3 % [facility] Comment:Testing performed by : [address] [address] Plt 299 150 - 400 K/cumm [facility] Comment:Testing performed by : [address] [address] MPV 9.8 9.1 - 12.3 fL [facility] Comment:Testing performed by : [address] [address] RBC 2.76(L) 4.30 - 5.80 M/cumm [facility] Comment:Testing performed by : [address] [address] MCV 91.7 81.3 - 96.4 fL [facility] Comment:Testing performed by : [address] [address] MCH 30.4 27.1 - 33.3 pg [facility] SHETT[facility] Comment:Testing performed by : [address] [address] MCHC 33.2 32.3 - 35.7 g/dL [facility] SHE[facility] Comment:Testing performed by : [address] [address] RDW CV 23.3(H) 11.1 - 14.9 % [facility] Comment:Testing performed by : [address] [address] RDW SD 74.0(H) 35.7 - 48.1 fL [facility] Comment:Testing performed by : [address] [address] NRBC abs 0.21(H) 0.00 - 0.01 K/cumm [facility] Comment:Testing performed by : [address] [address] Blood 01/04/2025 7:27 AM CDT 01/04/2025 7:34 AM CDT us Rasta Garcia MD LAB BLOOD ORDERABLES Edited Re sult - Final [facility] [address] [facility] Department of Laboratories [place], [place] [id number] * (ABNORMAL) Manual Differential (01/04/2025 7:27 AM CDT) Differential Manual Comment:Testing performed by : [address] [address] Cells Counted 100 [facility] SHETT[facility] Comment:Testing performed by : [address] [address] Neutrophil abs 3.26 1.50 - 6.50 K/cumm [facility] SHE[facility] Comment:Testing performed by : [address] [address] Lymphocyte abs 5.88(H) 0.80 - 3.30 K/cumm [facility] Comment:Testing performed by : [address] [address] Monocyte abs 0.63 0.20 - 0.80 K/cumm [facility] Comment:Testing performed by : [address], [place]., [address] Eosinophil abs 0.53(H) 0.00 - 0.50 K/cumm [facility] Comment:Testing performed by : [address], [place]., [address] Basophil abs 0.21(H) 0.00 - 0.10 K/cumm [facility] Comment:Testing performed by : [address] [address] Neutrophil pct 31.0 % [facility] Comment: Interpretive Data Percent cell count reference ranges are not reported, since discordance with absolute values may lead to misinterpretation of CBC data. Current Interpretive Data was last revised on 2017. Testing performed by: [address] [address] Lymphocyte pct 56.0 % [facility] Comment: Interpretive Data Percent cell count reference ranges are not reported, since discordance with absolute values may lead to misinterpretation of CBC data. Current Interpretive Data was last revised on 2017. Testing performed by: [address] [address] Monocyte pct 6.0 % [facility] Comment: Interpretive Data Percent cell count reference ranges are not reported, since discordance with absolute values may lead to misinterpretation of CBC data. Current Interpretive Data was last revised on 2017. Testing performed by: [address] [address] Eosinophil pct 5.0 % [facility] Comment: Interpretive Data Percent cell count reference ranges are not reported, since discordance with absolute values may lead to misinterpretation of CBC data. Current Interpretive Data was last revised on 2017. Testing performed by: [address] [address] Basophil pct 2.0 % [facility] Comment: Interpretive Data Percent cell count reference ranges are not reported, since discordance with absolute values may lead to misinterpretation of CBC data. Current Interpretive Data was last revised on 2017. Testing performed by: [address] [address] Vacuolation Present(A) [facility] Comment:Testing performed by : [facility], [address] [place] [address], [place]., [address] RBC morphology Present(A) [facility] Comment:Testing performed by : [facility], [address] [place] [address], [place], [place]., [id number] Polychromasia 3-7/HPF(A) [facility] Comment:Testing performed by : [address], [place]., [address] Anisocytosis Marked(A) [facility] Comment:Testing performed by : [address], [place]., [address] Macrocytes 3-7/HPF(A) [facility] Comment:Testing performed by : [address], [place]., [address] Schistocytes 1-2/HPF(A) [facility] Comment:Testing performed by : [address], [place]., [address] Sickle cells 3-7/HPF(A) [facility] Comment:Testing performed by : [address], [place]., [address] Platelet estimate Adequate [facility] Comment:Testing performed by : [address], [place]., [address] Giant platelets Present(A) [facility] Comment:Testing performed by : [address], [place]., [address] Blood 01/04/2025 7:27 AM CDT 01/04/2025 7:34 AM CDT us Rasta Garcia MD LAB BLOOD ORDERABLES Final Res ult [facility]8 [facility] [place] [address] * (ABNORMAL) Reticulocyte Count (01/04/2025 7:27 AM CDT) Retics, absolute 532(H) 20 - 87 K/cumm Comment:Testing performed by : [address], [place]., [address] Retics 19.3(H) 0.4 - 2.9 % [facility] Comment:Testing performed by : [address] [address] Reticulocyte Hgb 34.7 30.5 - 38.0 pg [facility] Comment:Testing performed by : [address] [address] Blood 01/04/2025 7:27 AM CDT 01/04/2025 7:34 AM CDT us Rasta Garcia MD LAB BLOOD ORDERABLES Final Res ult [facility] 4500 [facility] [place] [address] * (ABNORMAL) Basic metabolic panel (01/04/2025 7:27 AM CDT) Sodium 137 135 - 145 mmol/L Comment:Testing performed by : [address] [address] Potassium, pl 3.5 3.3 - 4.9 mmol/L [facility] Comment:Testing performed by : [address] [address] Chloride 100 97 - 110 mmol/L [facility] Comment:Testing performed by : [address] [address] CO2 25 22 - 32 mmol/L [facility] Comment:Testing performed by : [address] [address] Anion gap 12 2 - 15 mmol/L [facility] Comment:Testing performed by : [address] [address] BUN 2(L) 6 - 25 mg/dL [facility] Comment:Testing performed by : [address] [address] Creatinine 0.49(L) 0.80 - 1.30 mg/dL [facility] Comment:Testing performed by : [address] [address] Glucose 106 70 - 199 mg/dL [facility] [...] was last revised 2022. Testing performed by: [address] [address] Calcium 9.1 8.5 - 10.3 mg/dL [facility] Comment:Testing performed by : [address] [address] Blood 01/04/2025 7:27 AM CDT 01/04/2025 7:34 AM CDT Rasta Garcia MD LAB BLOOD ORDERABLES Final Res ult [facility] 9905 [facility] [place] [address] * (ABNORMAL) Blood smear review (01/03/2025 7:30 AM CDT) RBC morphology Present(A) Comment:Testing performed by : [address] [address] Polychromasia 3-7/HPF(A) [facility] Comment:Testing performed by : [address] [address] Anisocytosis Slight(A) [facility] Comment:Testing performed by : [address] [address] Poikilocytosis Slight(A) [facility] Comment:Testing performed by : [address] [address] Sickle cells 1-2/HPF(A) [facility] Comment:Testing performed by : [address] [address] Elliptocytes 3-7/HPF(A) [facility] Comment:Testing performed by : [address] [address] Target cells 3-7/HPF(A) [facility] Comment:Testing performed by : [facility], [address] [place] [address]., [address] Platelet estimate Adequate [facility] Comment:Testing performed by : [address] [address] Blood 01/03/2025 7:30 AM CDT 01/03/2025 7:44 AM CDT us Rasta Garcia MD LAB BLOOD ORDERABLES Final Res ult [facility] 5226 [facility] [place] [address] * eGFR (01/03/2025 7:30 AM CDT) eGFR [...] was last reviewed 2021. Testing performed by: [address] [address] Blood 01/03/2025 7:30 AM CDT 01/03/2025 7:44 AM CDT us Rasta Garcia MD LAB BLOOD ORDERABLES Final Res ult [facility] 2022 [facility] [place] [address] * (ABNORMAL) Differential, auto (01/03/2025 7:30 AM CDT) Neutrophil abs 5.76 1.50 - 6.50 K/cumm Comment:Testing performed by : [address] [address] Imm gran abs 0.13(H) 0.00 - 0.10 K/cumm [facility] Comment:Testing performed by : [address] [address] Lymphocyte abs 3.10 0.80 - 3.30 K/cumm [facility] Comment:Testing performed by : [address] [address] Monocyte abs 0.98(H) 0.20 - 0.80 K/cumm [facility] Comment:Testing performed by : [address] [address] Eosinophil abs 0.21 0.00 - 0.50 K/cumm [facility] Comment:Testing performed by : [address] [address] Basophil abs 0.07 0.00 - 0.10 K/cumm [facility] Comment:Testing performed by : [address] [address] Neutrophil pct 56.2 % [facility] Comment: Interpretive Data Percent cell count reference ranges are not reported, since discordance with absolute values may lead to misinterpretation of CBC data. Current Interpretive Data was last revised on 2017. Testing performed by: [address] [address] Imm gran pct 1.3 % [facility] Comment: Interpretive Data Percent cell count reference ranges are not reported, since discordance with absolute values may lead to misinterpretation of CBC data. Current Interpretive Data was last revised on 2017. Testing performed by: [address] [address] Lymphocyte pct 30.2 % [facility] Comment: Interpretive Data Percent cell count reference ranges are not reported, since discordance with absolute values may lead to misinterpretation of CBC data. Current Interpretive Data was last revised on 2017. Testing performed by: [address] [address] Monocyte pct 9.6 % [facility] Comment: Interpretive Data Percent cell count reference ranges are not reported, since discordance with absolute values may lead to misinterpretation of CBC data. Current Interpretive Data was last revised on 2017. Testing performed by: [address] [address] Eosinophil pct 2.0 % [facility] Comment: Interpretive Data Percent cell count reference ranges are not reported, since discordance with absolute values may lead to misinterpretation of CBC data. Current Interpretive Data was last revised on 2017. Testing performed by: [address] [address] Basophil pct 0.7 % [facility] Comment: Interpretive Data Percent cell count reference ranges are not reported, since discordance with absolute values may lead to misinterpretation of CBC data. Current Interpretive Data was last revised on 2017. Testing performed by: [address] [address] Blood 01/03/2025 7:30 AM CDT 01/03/2025 7:44 AM CDT us Rasta Garcia MD LAB BLOOD ORDERABLES Final Res ult [facility] 7764 [facility] [place] [address] * (ABNORMAL) CBC with auto differential (01/03/2025 7:30 AM CDT) WBC 10.25(H) 3.80 - 9.90 K/cumm Comment:Testing performed by : [address] [address] Hgb 7.7(L) 13.0 - 17.5 g/dL [facility] Comment:Testing performed by : [address] [address] Hct 22.5(L) 38.9 - 50.3 % [facility] Comment:Testing performed by : [address] [address] Plt 350 150 - 400 K/cumm [facility] Comment:Testing performed by : [address] [address] MPV 10.1 9.1 - 12.3 fL [facility] Comment:Testing performed by : [address] [address] RBC 2.55(L) 4.30 - 5.80 M/cumm [facility] Comment:Testing performed by : [address] [address] MCV 88.2 81.3 - 96.4 fL [facility] Comment:Testing performed by : [address] [address] MCH 30.2 27.1 - 33.3 pg [facility] Comment:Testing performed by : [address] [address] MCHC 34.2 32.3 - 35.7 g/dL [facility] Comment:Testing performed by : [address] [address] RDW CV 22.1(H) 11.1 - 14.9 % [facility] Comment:Testing performed by : [address] [address] RDW SD 67.4(H) 35.7 - 48.1 fL [facility] Comment:Testing performed by : [address] [address] NRBC abs 0.35(H) 0.00 - 0.01 K/cumm [facility] Comment:Testing performed by : [address] [address] Blood 01/03/2025 7:30 AM CDT 01/03/2025 7:44 AM CDT us Rasta Garcia MD LAB BLOOD ORDERABLES Edited Re sult - Final Performing Organization Address [facility]/ZIP Co de Phone Number [facility] [address] [address] * (ABNORMAL) Reticulocyte Count (01/03/2025 7:30 AM CDT) Pathologist [facility] Retics, absolute 471(H) 20 - 87 K/cumm Comment:Testing performed by : [address] [address] Retics 18.5(H) 0.4 - 2.9 % [facility] SHETTY Comment:Testing performed by : [address] [address] Reticulocyte Hgb 31.1 30.5 - 38.0 pg [facility] SHETTY Comment:Testing performed by : [address] [address] Blood 01/03/2025 7:30 AM CDT 01/03/2025 7:44 AM CDT us Rasta Garcia MD LAB BLOOD ORDERABLES Final Res ult Performing Organization Address [facility] Co de Phone Number [facility] [address] [address] * (ABNORMAL) Basic metabolic panel (01/03/2025 7:30 AM CDT) Pathologist [facility] Sodium 138 135 - 145 mmol/L Comment:Testing performed by : [address] [address] Potassium, pl 3.5 3.3 - 4.9 mmol/L [facility] SHETTY Comment:Testing performed by : [address] [address] Chloride 101 97 - 110 mmol/L [facility] SHETTY Comment:Testing performed by : [address] [address] CO2 26 22 - 32 mmol/L [facility] SHETTY Comment:Testing performed by : [address] [address] Anion gap 11 2 - 15 mmol/L [facility] Comment:Testing performed by : [address] [address] BUN <2(L) 6 - 25 mg/dL [facility] Comment:Testing performed by : [address] [address] Creatinine 0.50(L) 0.80 - 1.30 mg/dL [facility] Comment:Testing performed by : [address] [address] Glucose 106 70 - 199 mg/dL [facility] [...] was last revised 2022. Testing performed by: [address] [address] Calcium 8.8 8.5 - 10.3 mg/dL [facility] Comment:Testing performed by : [address] [address] Blood 01/03/2025 7:30 AM CDT 01/03/2025 7:44 AM CDT us Rasta Garcai MD LAB BLOOD ORDERABLES Final Res ult [facility] 7541 [facility] [place] [address] * Troponin T high-sensitivity 4-hour (01/01/2025 4:09 AM CDT) Trop T hs <6 <=22 ng/L Comment: Interpretive Data For further hscTnT resources including the diagnostic algorithm and an aid in interpretation, copy and paste this link: https://nrl.testcatalog.org/show/hsTrop Current Interpretive Data last revised 2020. Testing performed by: [facility], [address] [place] [address]., [address] Trop T hs delta -2 ng/L [facility] SHETTY Comment:Testing performed by : [address] [address] Trop T hs interp Insignificant [facility] SHETTY Comment:Testing performed by : [facility], [address] [place] [address]., [address] Blood 01/01/2025 4:09 AM CDT 01/01/2025 4:16 AM CDT us Bill Carrasquillo DO LAB BLOOD ORDERABLES Final Res ult [facility] 9886 [facility] Department of Laboratories [place], [place] [id number] * XR Chest 1 Vw Portable (01/01/2025 [...] Andrew Stubbs M.D. AR: TOREY Report ID: [id number] Reading Location: [id number] Procedure Note Andrew Stubbs MD - 01/01/2025 [...] Andrew Stubbs M.D. AR: TOREY Report ID: [id number] Reading Location: [id number] us Bill Carrasquillo DO IMG XR PROCEDURES Final Result * Troponin T high-sensitivity series (baseline, 2hr, 4hr, 6hr) (12/31/2024 11:57 PM CDT) Trop T hs 8 <=22 ng/L Comment: Interpretive Data For further hscTnT resources including the diagnostic algorithm and an aid in interpretation, copy and paste this link: https://nrl.testcatalog.org/show/hsTrop Current Interpretive Data last revised 2020. Testing performed by: [facility], [address] [place] [address], [place]., [address] Blood 12/31/2024 11:5 7 PM CDT 01/01/2025 12:09 AM CDT us Bill Carrasquillo DO LAB BLOOD ORDERABLES Final Res ult [facility]0 [facility] [place] [address] * eGFR (12/31/2024 11:57 PM CDT) [facility] eGFR >90 >=60 mL/min/1. 73 m2 Comment: [...] was last reviewed 2021. Testing performed by: [address] [address] Blood 12/31/2024 11:5 7 PM CDT 01/01/2025 12:09 AM CDT us Bill Carrasquillo DO LAB BLOOD ORDERABLES Final Res ult [place] [facility]0 [facility] [place] [address] * (ABNORMAL) Differential, auto (12/31/2024 11:57 PM CDT) [facility] Neutrophil abs 6.19 1.50 - 6.50 K/cumm Comment:Testing performed by : [address] [address] Imm gran abs 0.07 0.00 - 0.10 K/cumm [facility] SHETTY Comment:Testing performed by : [address] [address] Lymphocyte abs 4.31(H) 0.80 - 3.30 K/cumm [facility] Comment:Testing performed by : [address] [address] Monocyte abs 1.49(H) 0.20 - 0.80 K/cumm [facility] Comment:Testing performed by : [address], [place]., [address] Eosinophil abs 0.14 0.00 - 0.50 K/cumm [facility] Comment:Testing performed by : [address], [place]., [address] Basophil abs 0.08 0.00 - 0.10 K/cumm [facility] Comment:Testing performed by : [address] [address] Neutrophil pct 50.4 % [facility] Comment: Interpretive Data Percent cell count reference ranges are not reported, since discordance with absolute values may lead to misinterpretation of CBC data. Current Interpretive Data was last revised on 2017. Testing performed by: [address] [address] Imm gran pct 0.6 % [facility] Comment: Interpretive Data Percent cell count reference ranges are not reported, since discordance with absolute values may lead to misinterpretation of CBC data. Current Interpretive Data was last revised on 2017. Testing performed by: [address] [address] Lymphocyte pct 35.1 % [facility] Comment: Interpretive Data Percent cell count reference ranges are not reported, since discordance with absolute values may lead to misinterpretation of CBC data. Current Interpretive Data was last revised on 2017. Testing performed by: [address] [address] Monocyte pct 12.1 % [facility] Comment: Interpretive Data Percent cell count reference ranges are not reported, since discordance with absolute values may lead to misinterpretation of CBC data. Current Interpretive Data was last revised on 2017. Testing performed by: [address] [address] Eosinophil pct 1.1 % [facility] Comment: Interpretive Data Percent cell count reference ranges are not reported, since discordance with absolute values may lead to misinterpretation of CBC data. Current Interpretive Data was last revised on 2017. Testing performed by: [address] [address] Basophil pct 0.7 % [facility] SHETTY Comment: Interpretive Data Percent cell count reference ranges are not reported, since discordance with absolute values may lead to misinterpretation of CBC data. Current Interpretive Data was last revised on 2017. Testing performed by: [address] [address] Blood 12/31/2024 11:5 7 PM CDT 01/01/2025 12:09 AM CDT us Bill Carrasquillo DO LAB BLOOD ORDERABLES Final Res ult [place] [facility] [place] [address] * (ABNORMAL) CBC with auto differential (12/31/2024 11:57 PM CDT) WBC 12.28(H) 3.80 - 9.90 K/cumm Comment:Testing performed by : [address] [address] Hgb 7.8(L) 13.0 - 17.5 g/dL [facility] SHETTY Comment:Testing performed by : [address] [address] Hct 23.2(L) 38.9 - 50.3 % [facility] SHETTY Comment:Testing performed by : [address] [address] Plt 277 150 - 400 K/cumm [facility] SHETTY Comment:Testing performed by : [address] [address] MPV 10.0 9.1 - 12.3 fL [facility] SHETTY Comment:Testing performed by : [address] [address] RBC 2.65(L) 4.30 - 5.80 M/cumm [facility] SHETTY Comment:Testing performed by : [address] [address] MCV 87.5 81.3 - 96.4 fL [facility] SHETTY Comment:Testing performed by : [address] [address] MCH 29.4 27.1 - 33.3 pg [facility] SHETTY Comment:Testing performed by : [address] [address] MCHC 33.6 32.3 - 35.7 g/dL [facility] SHETTY Comment:Testing performed by : [address] [address] RDW CV 20.6(H) 11.1 - 14.9 % [facility] Comment:Testing performed by : [address] [address] RDW SD 64.0(H) 35.7 - 48.1 fL [facility] Comment:Testing performed by : [address], [address] NRBC abs 0.06(H) 0.00 - 0.01 K/cumm [facility] Comment:Testing performed by : [address], [address] Morphologic Screen Results confirmed by manual morphology review. [facility] Comment:Testing performed by : [address] [address] Blood 12/31/2024 11:5 7 PM CDT 01/01/2025 12:09 AM CDT Bill Carrasquillo DO LAB BLOOD ORDERABLES Final Res ult [facility] 6842 [facility] [place] [address] * (ABNORMAL) Reticulocyte Count (12/31/2024 11:57 PM CDT) Retics, absolute 410(H) 20 - 87 K/cumm Comment:Testing performed by : [address], [address] Retics 15.5(H) 0.4 - 2.9 % [facility] Comment:Testing performed by : [address] [address] Reticulocyte Hgb 30.8 30.5 - 38.0 pg [facility] Comment:Testing performed by : [address] [address] Blood 12/31/2024 11:5 7 PM CDT 01/01/2025 12:09 AM CDT Bill Carrasquillo DO LAB BLOOD ORDERABLES Final Res ult [facility] 4500 [facility] [place] [address] * (ABNORMAL) Comprehensive metabolic panel (12/31/2024 11:57 PM CDT) Sodium 137 135 - 145 mmol/L Comment:Testing performed by : [address] [address] Potassium, pl 3.2(L) 3.3 - 4.9 mmol/L [facility] Comment:Testing performed by : [address] [address] Chloride 103 97 - 110 mmol/L [facility] Comment:Testing performed by : [address] [address] CO2 23 22 - 32 mmol/L [facility] Comment:Testing performed by : [address] [address] Anion gap 11 2 - 15 mmol/L [facility] Comment:Testing performed by : [address] [address] BUN 4(L) 6 - 25 mg/dL [facility] Comment:Testing performed by : [address] [address] Creatinine 0.60(L) 0.80 - 1.30 mg/dL [facility] Comment:Testing performed by : [address] [address] Glucose 115 70 - 199 mg/dL [facility] [...] was last revised 2022. Testing performed by: [address] [address] Calcium 9.1 8.5 - 10.3 mg/dL [facility] Comment:Testing performed by : [address] [address] Bilirubin, total 5.6(H) 0.1 - 1.2 mg/dL [facility] Comment:Testing performed by : [address] [address] Protein, pl 7.9 6.5 - 8.5 g/dL [facility] Comment:Testing performed by : [address] [address] Albumin 4.1 3.5 - 5.0 g/dL [facility] Comment:Testing performed by : [address] [address] Alk phos 353(H) 40 - 130 Units/L [facility] Comment:Testing performed by : [address] [address] ALT 27 7 - 55 Units/L [facility] Comment:Testing performed by : [address] [address] AST 53(H) 10 - 50 Units/L [facility] Comment:Testing performed by : [address] [address] Blood 12/31/2024 11:5 7 PM CDT 01/01/2025 12:09 AM CDT Bill Carrasqulilo DO LAB BLOOD ORDERABLES Final Res ult Performing Organization Address [facility]/ZIP Co de Phone Number [facility] 4500 [facility] [place] [address] * ECG 12 lead (12/31/2024 11:51 PM CDT) Ventricular Rate EKG/Min 107 BPM [facility] Atrial Rate 107 BPM [facility] ME-Interval (MSEC) 178 ms [facility] QRS-Interval (MSEC) 80 ms [facility] QT-Interval (MSEC) 344 ms [facility] QTc 459 ms [facility] P [place] 51 degrees [facility] R [place] 4 degrees [facility] T [place] 15 degrees [facility] Diagnosis Sinus tachycardia Otherwise normal ECG When compared with ECG of 22-DEC-2024 13:08, Nonspecific T wave abnormality no longer evident in Lateral leads Confirmed by Rodrigue Fonseca M.D. ([id number]) on 01/03/2025 8:51:05 AM [facility] 12/31/2024 11:5 1 PM CDT 01/03/2025 8:51 AM CDT us Bill Carrasquillo DO ECG ORDERABLES Final Result Performing Organization Address [facility] de Phone Number [facility] [employer] [facility] * CT Chest PE (CTA) W [...] by: Tianna Shepard M.D. Elijah Ramirez MD IM CT PROCEDURES Final Result * Respiratory pathogen panel Nasopharyngeal (12/23/2024 4:03 PM CDT) Influenza A RNA Not Detected Not Detected [facility] Influenza B RNA Not Detected Not Detected [facility] RSV RNA Not Detected Not Detected [facility] COVID-19 RNA Not Detected Not Detected [facility] Coronavirus 229E RNA Not Detected Not Detected [facility] Coronavirus HKU1 RNA Not Detected Not Detected [facility] Coronavirus NL63 RNA Not Detected Not Detected [facility] Coronavirus OC43 RNA Not Detected Not Detected [facility] Adenovirus DNA Not Detected Not Detected [facility] Metapneumovirus RNA Not Detected Not Detected [facility] Rhinovirus/Enterov irus RNA Not Detected Not Detected [facility] Parainfluenza 1 RNA Not Detected Not Detected [facility] Parainfluenza 2 RNA Not Detected Not Detected [facility] Parainfluenza 3 RNA Not Detected Not Detected [facility] Parainfluenza 4 RNA Not Detected Not Detected [facility] B. pertussis DNA Not Detected Not Detected [facility] B. parapertussis DNA Not Detected Not Detected [facility] C. pneumoniae DNA Not Detected Not Detected [facility] M. pneumoniae DNA Not Detected Not Detected [facility] Comment: Interpretive Data [employer] FilmArray Respiratory Panel (RP2.1) assay is a [...] assay has FDA clearance for testing of MULTI P[employer]CH OPERATOR swabs. The performance characteristics of this assay have been determined by [facility]. Current interpretive data was last revised on 2020. Nasopharyngeal 12/23/2024 4: 03 PM CDT 12/23/2024 4:10 PM CDT Narrative [facility] - 12/23/2024 5:11 PM CDT Is the Patient experiencing symptoms consistent with COVID?->Yes Surveillance testing for transplant patient?->No Elijah Ramirez MD LAB MICROBIOLOGY - GENER AL ORDERABLES Final Result [facility] [address] Department [place] [address] [facility] * XR Chest Pa Lateral 2 Vw [...] García DO LAB BLOOD ORDERABLES Final Result [facility] [address] Department [place] [address] * (ABNORMAL) Differential, auto (12/23/2024 2:44 PM CDT) Neutrophil abs 4.91 1.50 - 6.50 K/cumm Imm gran abs 0.09 0.00 - 0.10 K/cumm [facility] Lymphocyte abs 3.14 0.80 - 3.30 K/cumm [facility] Monocyte abs 1.13(H) 0.20 - 0.80 K/cumm [facility] Eosinophil abs 0.17 0.00 - 0.50 K/cumm [facility] Basophil abs 0.07 0.00 - 0.10 K/cumm [facility] Neutrophil pct 51.7 % [facility] Comment: Interpretive Data Percent cell count reference ranges are not reported, since discordance with absolute values may lead to misinterpretation of CBC data. Current Interpretive Data was last revised on 2017. Imm gran pct 0.9 % [facility] Comment: Interpretive Data Percent cell count reference ranges are not reported, since discordance with absolute values may lead to misinterpretation of CBC data. Current Interpretive Data was last revised on 2017. Lymphocyte pct 33.0 % [facility] Comment: Interpretive Data Percent cell count reference ranges are not reported, since discordance with absolute values may lead to misinterpretation of CBC data. Current Interpretive Data was last revised on 2017. Monocyte pct 11.9 % [facility] Comment: Interpretive Data Percent cell count reference ranges are not reported, since discordance with absolute values may lead to misinterpretation of CBC data. Current Interpretive Data was last revised on 2017. Eosinophil pct 1.8 % [facility] Comment: Interpretive Data Percent cell count reference ranges are not reported, since discordance with absolute values may lead to misinterpretation of CBC data. Current Interpretive Data was last revised on 2017. Basophil pct 0.7 % [facility] Comment: Interpretive Data Percent cell count reference ranges are not reported, since discordance with absolute values may lead to misinterpretation of CBC data. Current Interpretive Data was last revised on 2017. Blood 12/23/2024 2:44 PM CDT 12/23/2024 2:56 PM CDT us Steve García DO LAB BLOOD ORDERABLES Final Result Performing Organization Address City/[facility]/ZIP Co de Phone Number [facility] [address] Department [place] [address] * (ABNORMAL) Urinalysis reflex to microscopic and culture Urine (12/23/2024 2:44 PM CDT) Color, ur Yellow Yellow Clarity, ur Clear Clear [facility] Specific gravity, ur 1.010 1.003 - 1.030 [facility] pH, urine 7.0 [facility] Comment: Interpretive Data U rine pH is affected by diet, medications, systemic acid-base disturbances, and renal tubular function. pH may affect urinary stone formation. For example, urine pH below 6.0 may help reduce the tendency for calcium phosphate stones and pH greater than 6.0 may reduce the tendency for uric acid stone formation. Source: [facility] Current Interpretive Data was last revised on 2017 Protein, ur ql Negative Negative [facility] Glucose, ur ql Negative Negative [facility] Ketones, ur Negative Negative [facility] Bilirubin, ur Negative Negative [facility] Blood, ur Negative Negative [facility] Urobilinogen, ur 4.0(A) <2.0 mg/dL [facility] Nitrite, ur Negative Negative [facility] Leukocyte esterase, ur Negative Negative [facility] UA reflex comment Reflex conditions for microscopic UA and culture not met. [facility] Urine 12/23/2024 2:44 PM CDT 12/23/2024 2:45 PM CDT us Elijah Ramirez MD LAB MICROBIOLOGY - GENER AL ORDERABLES Final Result Performing Organization Address City/[facility]/ZIP Co de Phone Number [facility] [address] Department [place] [address] * (ABNORMAL) CBC with auto differential (12/23/2024 2:44 PM CDT) [facility] WBC 9.51 3.80 - 9.90 K/cumm Hgb 8.4(L) 13.0 - 17.5 g/dL [facility] Hct 25.6(L) 38.9 - 50.3 % [facility] Plt 343 150 - 400 K/cumm [facility] MPV 10.3 9.1 - 12.3 fL [facility] RBC 2.84(L) 4.30 - 5.80 M/cumm [facility] MCV 90.1 81.3 - 96.4 fL [facility] MCH 29.6 27.1 - 33.3 pg [facility] MCHC 32.8 32.3 - 35.7 g/dL [facility] RDW CV 19.9(H) 11.1 - 14.9 % [facility] RDW SD 64.4(H) 35.7 - 48.1 fL [facility] NRBC abs 0.10(H) 0.00 - 0.01 K/cumm [facility] Morphologic Screen Results confirmed by manual morphology review. [facility] Blood 12/23/2024 2:44 PM CDT 12/23/2024 2:56 PM CDT us Elijah Ramirez MD LAB BLOOD ORDERABLES Rashaun missy Result - Final [facility] [address] Department [place] [address] * (ABNORMAL) Reticulocyte Count (12/23/2024 2:44 PM CDT) [facility] Retics, absolute 450(H) 20 - 87 K/cumm Comment:Retic verified by di lution. Retics 14.5(H) 0.4 - 2.9 % [facility] Comment:Retic verified by di lution. Reticulocyte Hgb 32.5 30.5 - 38.0 pg [facility] Blood 12/23/2024 2:44 PM CDT 12/23/2024 2:56 PM CDT us Elijah Ramirez MD LAB BLOOD ORDERABLES Fin al Result [facility] [address] Department [place] [address] * (ABNORMAL) Comprehensive metabolic panel (12/23/2024 2:44 PM CDT) Sodium 138 135 - 145 mmol/L Potassium, pl 3.6 3.3 - 4.9 mmol/L [facility] Chloride 104 97 - 110 mmol/L [facility] CO2 24 22 - 32 mmol/L [facility] Anion gap 10 2 - 15 mmol/L [facility] BUN 3(L) 6 - 25 mg/dL [facility] Creatinine 0.51(L) 0.80 - 1.30 mg/dL [facility] Glucose 93 70 - 199 mg/dL [facility] Comment: Interpretive Data Fasting glucose [...] 2022. Calcium 9.0 8.5 - 10.3 mg/dL [facility] Bilirubin, total 5.9(H) 0.1 - 1.2 mg/dL [facility] Protein, pl 7.5 6.5 - 8.5 g/dL [facility] Albumin 3.9 3.5 - 5.0 g/dL [facility] Alk phos 392(H) 40 - 130 Units/L [facility] ALT 45 7 - 55 Units/L [facility] AST 71(H) 10 - 50 Units/L [facility] Blood 12/23/2024 2:44 PM CDT 12/23/2024 2:56 PM CDT us Elijah Ramirez MD LAB BLOOD ORDERABLES Fin al Result Performing Organization Address [facility] Co de Phone Number [facility] [address] Department [place] [address] * ECG 12 lead (12/23/2024 12:42 PM CDT) 12/23/2024 12:4 2 PM CDT Narrative [facility] - 12/23/2024 1:33 PM CDT Vent Rate: 106 bpm RR Interval: 561 msec ME Interval: 160 msec QRS Duration: 90 msec QT Interval: 368 msec QTC Interval: 430 msec P-R-T [place]: 64 - 31 - 15 degrees IMPRESSION: SINUS TACHYCARDIA ABNORMAL RHYTHM ECG Electronically Signed By: Celestino Dunlap [facility] Card Elijah Ramirez MD ECG ORDERABLES Final Re sult Performing Organization Address [facility] de Phone Number [facility] [employer] [facility] * XR Chest 1 Vw Portable [...] Gina Betancur D.O. PS: PS Report ID: [id number] Reading Location: [place] [address] Procedure Note Gina Betancur DO - 12/22/2024 [...] Gina Betancur D.O. PS: PS Report ID: [id number] Reading Location: [place] [address] Cheyanne Johnson [employer] OPERATOR IMG XR PROCEDURES Final Result * ECG 12 lead (12/22/2024 1:08 PM CDT) Ventricular Rate EKG/Min 97 BPM [facility] Atrial Rate 97 BPM [facility] ME-Interval (MSEC) 176 ms [facility] QRS-Interval (MSEC) 88 ms [facility] QT-Interval (MSEC) 368 ms [facility] QTc 467 ms [facility] P [place] 59 degrees [facility] R [place] 11 degrees [facility] T [place] 49 degrees [facility] Diagnosis Normal sinus rhythm Nonspecific T wave abnormality Prolonged QT When compared with ECG of 07-DEC-2024 21:21, No significant change was found Confirmed by SULTAN PARHAM M.D. ([id number]) on 12/22/2024 5:48:18 PM [facility] 12/22/2024 1:08 PM CDT 12/22/2024 5:48 PM CDT us Cheyanne Johnson [employer] OPERATOR ECG ORDERABLES Final Re sult Performing Organization Address [facility] Co de Phone Number [facility] * (ABNORMAL) Blood smear review (12/22/2024 12:19 PM CDT) Pathologist [facility] RBC morphology Present(A) Comment:Testing performed by : [facility], [address] [place] [address]., [id number] Elliptocytes 3-7/HPF(A) [facility] Comment:Testing performed by : [facility], [address] [place] [address]., [address] Platelet estimate Adequate [facility] Comment:Testing performed by : [address] [address] Blood 12/22/2024 12:1 9 PM CDT 12/22/2024 12:23 PM CDT us Ang Rick MD LAB BLOOD ORDERABLES Final Result Performing Organization Address [facility] Co de Phone Number [facility] [address] [facility] [place] [address] * eGFR (12/22/2024 12:19 PM CDT) eGFR [...] was last reviewed 2021. Testing performed by: [address] [address] Blood 12/22/2024 12:1 9 PM CDT 12/22/2024 12:23 PM CDT us Ang Rick MD LAB BLOOD ORDERABLES Final Result [facility] [place] [address] * (ABNORMAL) Differential, auto (12/22/2024 12:19 PM CDT) Neutrophil abs 4.68 1.50 - 6.50 K/cumm Comment:Testing performed by : [address] [address] Imm gran abs 0.07 0.00 - 0.10 K/cumm [facility] Comment:Testing performed by : [address] [address] Lymphocyte abs 3.02 0.80 - 3.30 K/cumm [facility] Comment:Testing performed by : [address] [address] Monocyte abs 0.87(H) 0.20 - 0.80 K/cumm [facility] Comment:Testing performed by : [address] [address] Eosinophil abs 0.19 0.00 - 0.50 K/cumm [facility] Comment:Testing performed by : [address] [address] Basophil abs 0.05 0.00 - 0.10 K/cumm [facility] Comment:Testing performed by : [address] [address] Neutrophil pct 52.7 % [facility] Comment: Interpretive Data Percent cell count reference ranges are not reported, since discordance with absolute values may lead to misinterpretation of CBC data. Current Interpretive Data was last revised on 2017. Testing performed by: [address] [address] Imm gran pct 0.8 % [facility] Comment: Interpretive Data Percent cell count reference ranges are not reported, since discordance with absolute values may lead to misinterpretation of CBC data. Current Interpretive Data was last revised on 2017. Testing performed by: [address] [address] Lymphocyte pct 34.0 % [facility] Comment: Interpretive Data Percent cell count reference ranges are not reported, since discordance with absolute values may lead to misinterpretation of CBC data. Current Interpretive Data was last revised on 2017. Testing performed by: [address] [address] Monocyte pct 9.8 % [facility] Comment: Interpretive Data Percent cell count reference ranges are not reported, since discordance with absolute values may lead to misinterpretation of CBC data. Current Interpretive Data was last revised on 2017. Testing performed by: [address] [address] Eosinophil pct 2.1 % [facility] Comment: Interpretive Data Percent cell count reference ranges are not reported, since discordance with absolute values may lead to misinterpretation of CBC data. Current Interpretive Data was last revised on 2017. Testing performed by: [address] [address] Basophil pct 0.6 % [facility] Comment: Interpretive Data Percent cell count reference ranges are not reported, since discordance with absolute values may lead to misinterpretation of CBC data. Current Interpretive Data was last revised on 2017. Testing performed by: [address] [address] Blood 12/22/2024 12:1 9 PM CDT 12/22/2024 12:23 PM CDT us Ang Rick MD LAB BLOOD ORDERABLES Final Result [facility] [address] [facility] [place] [address] * (ABNORMAL) CBC with auto differential (12/22/2024 12:19 PM CDT) WBC 8.88 3.80 - 9.90 K/cumm Comment:Testing performed by : [address] [address] Hgb 8.4(L) 13.0 - 17.5 g/dL [facility] Comment:Testing performed by : [address] [address] Hct 24.6(L) 38.9 - 50.3 % [facility] Comment:Testing performed by : [address] [address] Plt 356 150 - 400 K/cumm [facility] Comment:Testing performed by : [address] [address] MPV 10.1 9.1 - 12.3 fL [facility] Comment:Testing performed by : [address] [address] RBC 2.82(L) 4.30 - 5.80 M/cumm [facility] Comment:Testing performed by : [address] [address] MCV 87.2 81.3 - 96.4 fL [facility] Comment:Testing performed by : [address] [address] MCH 29.8 27.1 - 33.3 pg [facility] SHETTY Comment:Testing performed by : [address] [address] MCHC 34.1 32.3 - 35.7 g/dL [facility] SHETTY Comment:Testing performed by : [address] [address] RDW CV 19.9(H) 11.1 - 14.9 % [facility] Comment:Testing performed by : [address] [address] RDW SD 62.7(H) 35.7 - 48.1 fL [facility] Comment:Testing performed by : [address] [address] NRBC abs 0.12(H) 0.00 - 0.01 K/cumm [facility] Comment:Testing performed by : [address] [address] Blood 12/22/2024 12:1 9 PM CDT 12/22/2024 12:23 PM CDT us Ang Rick MD LAB BLOOD ORDERABLES Edite d Result - Final Performing Organization Address [facility] Co de Phone Number [facility] [address] [place] [address] * (ABNORMAL) Reticulocyte Count (12/22/2024 12:19 PM CDT) Retics, absolute 415(H) 20 - 87 K/cumm Comment:Testing performed by : [address] [address] Retics 14.7(H) 0.4 - 2.9 % [facility] Comment:Testing performed by : [address] [address] Reticulocyte Hgb 27.9(L) 30.5 - 38.0 pg [facility] Comment:Testing performed by : [address] [address] Blood 12/22/2024 12:1 9 PM CDT 12/22/2024 12:23 PM CDT Ang Rick MD LAB BLOOD ORDERABLES Final Result Performing Organization Address [facility] Co de Phone Number [facility] [address] [place] [address] * (ABNORMAL) Comprehensive metabolic panel (12/22/2024 12:19 PM CDT) Sodium 139 135 - 145 mmol/L Comment:Testing performed by : [address] [address] Potassium, pl 3.5 3.3 - 4.9 mmol/L [facility] Comment:Testing performed by : [address] [address] Chloride 103 97 - 110 mmol/L [facility] Comment:Testing performed by : [address], [place]., [address] CO2 24 22 - 32 mmol/L [facility] Comment:Testing performed by : [address] [address] Anion gap 12 2 - 15 mmol/L [facility] Comment:Testing performed by : [address] [address] BUN 3(L) 6 - 25 mg/dL [facility] Comment:Testing performed by : [address] [address] Creatinine 0.57(L) 0.80 - 1.30 mg/dL [facility] Comment:Testing performed by : [address] [address] Glucose 141 70 - 199 mg/dL [facility] [...] was last revised 2022. Testing performed by: [address] [address] Calcium 9.1 8.5 - 10.3 mg/dL [facility] Comment:Testing performed by : [address] [address] Bilirubin, total 5.4(H) 0.1 - 1.2 mg/dL [facility] Comment:Testing performed by : [address] [address] Protein, pl 7.9 6.5 - 8.5 g/dL [facility] Comment:Testing performed by : [address] [address] Albumin 4.4 3.5 - 5.0 g/dL [facility] Comment:Testing performed by : [address] [address] Alk phos 391(H) 40 - 130 Units/L [facility] Comment:Testing performed by : [address] [address] ALT 50 7 - 55 Units/L [facility] Comment:Testing performed by : [address] [address] AST 86(H) 10 - 50 Units/L [facility] Comment:Testing performed by : [address] [address] Blood 12/22/2024 12:1 9 PM CDT 12/22/2024 12:23 PM CDT Ang Rick MD LAB BLOOD ORDERABLES Final Result Performing Organization Address City/State/[facility] Co de Phone Number [facility] [address] [facility] [place] [address] * eGFR (12/08/2024 9:50 AM CDT) eGFR [...] MD LAB BLOOD ORDERABLES Final Res ult [facility] [address] [facility] [place] [address] * (ABNORMAL) Comprehensive metabolic panel (12/08/2024 9:50 AM CDT) Sodium 137 135 - 145 mmol/L Potassium, pl 3.7 3.3 - 4.9 mmol/L [facility] Comment:Hemolyzed; Potassium value may be falsely elevated by as much as 1.0 mmol/L. Suggest redraw and reanalysis. Chloride 101 97 - 110 mmol/L [facility] CO2 24 22 - 32 mmol/L [facility] Anion gap 12 2 - 15 mmol/L [facility] BUN 4(L) 6 - 25 mg/dL [facility] Creatinine 0.53(L) 0.80 - 1.30 mg/dL [facility] Glucose 109 70 - 199 mg/dL [facility] Comment: Interpretive Data Fasting glucose >/= 126 [...] 2022. Calcium 8.8 8.5 - 10.3 mg/dL [facility] Bilirubin, total 3.3(H) 0.1 - 1.2 mg/dL [facility] Protein, pl 7.8 6.5 - 8.5 g/dL [facility] Albumin 3.9 3.5 - 5.0 g/dL [facility] Alk phos 416(H) 40 - 130 Units/L [facility] ALT 35 7 - 55 Units/L [facility] AST 63(H) 10 - 50 Units/L [facility] Comment:Hemolyzed; result ma y be falsely elevated Blood 12/08/2024 9:50 AM CDT 12/08/2024 9:55 AM CDT Rasta Garcia MD LAB BLOOD ORDERABLES Final Res ult Performing Organization Address [facility]/ZIP Co de Phone Number [address] [place] [address] * Troponin T high-sensitivity series (baseline, 2hr, 4hr, 6hr) (12/07/2024 9:52 PM CDT) [facility] Trop T hs <6 <=22 ng/L Comment: Interpretive Data For further hscTnT resources including the diagnostic algorithm and an aid in interpretation, copy and paste this link: https://nrl.testcatalog.org/show/hsTrop Current Interpretive Data last revised 2020. Blood 12/07/2024 9:52 PM CDT 12/07/2024 9:57 PM CDT us Guy HO LAB BLOOD ORDERABLES Final R esult Performing Organization Address City/[facility]/ZIP Co de Phone Number [address] [employer] [place], [place] [id number] * Sepsis Lactate w/ Reflex (12/07/2024 9:52 PM CDT) [facility] Sepsis Lactate 1.5 0.7 - 2.0 mmol/L Blood 12/07/2024 9:52 PM CDT 12/07/2024 9:57 PM CDT us Guy HO LAB BLOOD ORDERABLES Final R esult Performing Organization Address [facility] Co de Phone Number [facility] [address] [address] * eGFR (12/07/2024 9:52 PM CDT) Pathologist [facility] eGFR >90 >=60 mL/min/1. 73 m2 Comment: [...] ORDERABLES F inal Result Performing Organization Address [facility]/ZIP Co de Phone Number [facility] [place] [address] * (ABNORMAL) CBC with auto differential (12/07/2024 9:52 PM CDT) [facility] WBC 15.51(H) 3.80 - 9.90 K/cumm Hgb 8.8(L) 13.0 - 17.5 g/dL [facility] Hct 26.3(L) 38.9 - 50.3 % [facility] Plt 368 150 - 400 K/cumm [facility] MPV 9.7 9.1 - 12.3 fL [facility] RBC 3.04(L) 4.30 - 5.80 M/cumm [facility] MCV 86.5 81.3 - 96.4 fL [facility] MCH 28.9 27.1 - 33.3 pg [facility] MCHC 33.5 32.3 - 35.7 g/dL [facility] RDW CV 18.3(H) 11.1 - 14.9 % [facility] RDW SD 57.4(H) 35.7 - 48.1 fL [facility] NRBC abs 0.05(H) 0.00 - 0.01 K/cumm [facility] Blood 12/07/2024 9:52 PM CDT 12/07/2024 9:57 PM CDT us Lala Ace MD LAB BLOOD ORDERABLES Rashaun missy Result - Final [address] [place] [address] * (ABNORMAL) Manual Differential (12/07/2024 9:52 PM CDT) Differential Manual Cells Counted 100 [facility] Neutrophil abs 12.10(H) 1.50 - 6.50 K/cumm [facility] Lymphocyte abs 2.64 0.80 - 3.30 K/cumm [facility] Monocyte abs 0.78 0.20 - 0.80 K/cumm [facility] Neutrophil pct 78.0 % [facility] Comment: Interpretive Data Percent cell count reference ranges are not reported, since discordance with absolute values may lead to misinterpretation of CBC data. Current Interpretive Data was last revised on 2017. Lymphocyte pct 17.0 % [facility] Comment: Interpretive Data Percent cell count reference ranges are not reported, since discordance with absolute values may lead to misinterpretation of CBC data. Current Interpretive Data was last revised on 2017. Monocyte pct 5.0 % [facility] Comment: Interpretive Data Percent cell count reference ranges are not reported, since discordance with absolute values may lead to misinterpretation of CBC data. Current Interpretive Data was last revised on 2017. RBC morphology Present(A) [facility] Polychromasia 8-15/HPF(A) [facility] Sickle cells 1-2/HPF(A) [facility] Elliptocytes 8-15/HPF(A) [facility] Platelet estimate Automated Count Confirmed [facility] Giant platelets Present(A) [facility] Blood 12/07/2024 9:52 PM CDT 12/07/2024 9:57 PM CDT Lala Ace MD LAB BLOOD ORDERABLES Fin al Result Performing Organization Address City/[facility] Co de Phone Number [facility] [address] [place] [address] * (ABNORMAL) Reticulocyte Count (12/07/2024 9:52 PM CDT) [facility] Retics, absolute 237(H) 20 - 87 K/cumm Retics 7.8(H) 0.4 - 2.9 % [facility] Reticulocyte Hgb 35.9 30.5 - 38.0 pg [facility] Blood 12/07/2024 9:52 PM CDT 12/07/2024 9:57 PM CDT Lala Ace MD LAB BLOOD ORDERABLES Fin al Result Performing Organization Address City/[facility] Co de Phone Number [address] [place] [address] * (ABNORMAL) Comprehensive metabolic panel (12/07/2024 9:52 PM CDT) [facility] Sodium 137 135 - 145 mmol/L Potassium, pl 3.5 3.3 - 4.9 mmol/L [facility] Chloride 102 97 - 110 mmol/L [facility] CO2 24 22 - 32 mmol/L [facility] Anion gap 11 2 - 15 mmol/L [facility] BUN 4(L) 6 - 25 mg/dL [facility] Creatinine 0.56(L) 0.80 - 1.30 mg/dL [facility] Glucose 114 70 - 199 mg/dL [facility] Comment: Interpretive Data Fasting glucose >/= 126 [...] 2022. Calcium 9.3 8.5 - 10.3 mg/dL [facility] Bilirubin, total 3.1(H) 0.1 - 1.2 mg/dL [facility] Protein, pl 8.8(H) 6.5 - 8.5 g/dL [facility] Albumin 4.5 3.5 - 5.0 g/dL [facility] Alk phos 472(H) 40 - 130 Units/L [facility] ALT 44 7 - 55 Units/L [facility] AST 73(H) 10 - 50 Units/L [facility] Blood 12/07/2024 9:52 PM CDT 12/07/2024 9:57 PM CDT us Nitza Oliver MD LAB BLOOD ORDERABLES F inal Result [facility] [address] [facility] [place] [address] * XR Chest 1 View (12/07/2024 9:35 PM CDT) Anatomical Region Laterality Modality Body, Chest N/A Computed Radiogr aphy 12/07/2024 9:51 PM CDT Narrative 12/07/2024 9:57 PM CDT EXAM DESCRIPTION: XR CHEST 1 VIEW REASON FOR STUDY: chest pain Pt states, I was just at [facility] from October 29 until yesterday when [...] Andrew Stubbs M.D. AR T: Report ID: [id number] Reading Location: [id number] Procedure Note Andrew Stubbs MD - 12/07/2024 EXAM DESCRIPTION: XR CHEST 1 VIEW REASON FOR STUDY: chest pain Pt states, I was just at [facility] from October 29 until yesterdaywhen he was [...] Andrew Stubbs M.D. AR T: Report ID: [id number] Reading Location: [id number] Nitza Oliver MD IMG XR PROCEDURES Stephanie l Result * (ABNORMAL) Urinalysis reflex to microscopic and culture Urine (12/07/2024 9:33 PM CDT) Color, ur Yellow Yellow Clarity, ur Clear Clear [facility] Specific gravity, ur 1.011 1.003 - 1.030 [facility] pH, urine 6.5 [facility] Comment: Interpretive Data U rine pH is affected by diet, medications, systemic acid-base disturbances, and renal tubular function. pH may affect urinary stone formation. For example, urine pH below 6.0 may help reduce the tendency for calcium phosphate stones and pH greater than 6.0 may reduce the tendency for uric acid stone formation. Source: [facility] Current Interpretive Data was last revised on 2017 Protein, ur ql Negative Negative [facility] Glucose, ur ql Negative Negative [facility] Ketones, ur Negative Negative [facility] Bilirubin, ur Negative Negative [facility] Blood, ur Negative Negative [facility] Urobilinogen, ur 2.0(A) <2.0 mg/dL [facility] Nitrite, ur Negative Negative [facility] Leukocyte esterase, ur Negative Negative [facility] UA reflex comment Reflex conditions for microscopic UA and culture not met. [facility] Urine 12/07/2024 9:33 PM CDT 12/07/2024 9:41 PM CDT us Lala Ace MD LAB MICROBIOLOGY - GENER AL ORDERABLES Final Result [facility] [address] [facility] [place] [address] * ECG 12 lead (12/07/2024 9:21 PM CDT) Ventricular Rate EKG/Min 115 BPM [facility] Atrial Rate 115 BPM [facility] ME-Interval (MSEC) 180 ms [facility] QRS-Interval (MSEC) 82 ms [facility] QT-Interval (MSEC) 328 ms [facility] QTc 453 ms [facility] P [place] 44 degrees [facility] R [place] 11 degrees [facility] T [place] 16 degrees [facility] Diagnosis Sinus tachycardia Otherwise normal ECG When compared with ECG of 05-OCT-2024 05:33, Limb lead reversal corrected Confirmed by NING LEON M.D. ([id number]) on 12/08/2024 8:06:53 PM [facility] 12/07/2024 9:21 PM CDT 12/08/2024 8:06 PM CDT us Lala Ace MD ECG ORDERABLES Final Re sult [facility] * Hepatitis C antibody Blood (08/29/2023 9:51 PM CDT) Hep C Ab Nonreactive Nonreactive Comment:Antibodies to HCV no t detected. Does NOT exclude the possibility of recent exposure to HCV. Current interpretive data was last revised on 22 Blood 08/29/2023 9:51 PM CDT 08/29/2023 10:10 PM CDT us Gordo Soliz MD LAB MICROBIOLOGY - GENE RAL ORDERABLES Final Result Performing Organization Address City/State/[facility] Co de Phone Number [facility] Department [place] [address] from Last 3 Months or Most Recently Relevant to Health Maintenance Insurance [facility] Prompt[employer]ly [employer] Member Subscriber Plan / Payer (Ef fective 2024-Present) Name:Zaid Villalpandojon Relation to Subscriber:Self Name:Zaid Villalpandojon Payer ID:[id number] (NAIC) Group ID:Not on file Type:MEDICAID RISK OTHER Address: [place] [id number] Advance Directives For more information, please contact: [phone] Documents on File Type Date Recorded Patient Puttier Expl anation ADVANCE DIRECTIVE 02/16/2025 8:54 AM Power of Production Support Manager-Medical * Full Code (Latest Code Status on File) Date Activated Date Inactivated Comments 02/15/2025 12:28 PM * Full Code Date Activated Date Inactivated Comments 01/01/2025 4:20 AM 01/18/2025 5:24 PM * Full Code Date Activated Date Inactivated Comments 12/08/2024 3:58 AM 12/09/2024 2:55 PM * Full Code Date Activated Date Inactivated Comments 11/01/2024 1:11 PM 11/09/2024 4:40 PM * Full Code Date Activated Date Inactivated Comments 10/05/2024 2:42 PM 10/19/2024 5:43 PM Care 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
--- OUTSIDE RECORDS SUMMARY | 2025-02-24 12:54 | XMS_ITS | CCD ---
Author Name Interface, [address] Address More breakthroughs. More victories. [address] Oncology Address 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
--- OUTSIDE RECORDS SUMMARY | 2025-02-24 12:54 | XMS_ITS | Clinical Summary ---
Author Organization [facility] Address [address] [place] [id number] Care Team Providers Care Foam Tank Laminator Name Role Phone None, Provider MD Primary Care Provider Braeden Downs MD Unavailable [phone] Allergies Active Allergy Reactions Criticality Noted Date [...] Noted Date Diagnosed Date Sickle cell crisis ([facility]) 12/13/2024 Sickle cell anemia ([facility]) 11/09/2024 Sickle cell anemia with crisis ([facility]) 10/29/2024 Sickle cell pain crisis ([facility]) 2024 Encounters Date Type Department Care Team Description 01/29/2025 4:57 PM CDT - 01/29/2025 8:55 PM CDT Emergency [facility] [place] [address] Noe Gross NP Back Pain Discharge Disposition: Home or Self Care (Routine Discharge) 01/29/2025 Travel 01/18/2025 3:27 PM CDT - 01/18/2025 7:53 PM CDT Emergency [facility] [place] [address] Deo Cantrell MD Sickle Cell Pain Discharge Disposition: Home or Self Care (Routine Discharge) 01/18/2025 Travel 12/31/2024 3:41 PM CDT - 12/31/2024 11:27 PM CDT Emergency [facility] [place] [address] Navi Saenz MD Sickle Cell Pain Discharge Disposition: Home or Self Care (Routine Discharge) 12/31/2024 Travel 12/13/2024 2:12 PM CDT - 12/22/2024 11:28 AM CDT [facility] [place] [address] Stephan Galicia MD Romick, Jordan K, MD Wagner, Roy M, DO Sickle Cell Pain Discharge Disposition: Home or Self Care (Routine Discharge) 12/13/2024 Travel 12/10/2024 Hospital Follow-up Call [facility] [place] [address] Renetta Espinoza LPN Follow Up Call (ANJELICA 11/09-12/07/24) 11/09/2024 12:31 PM CDT - 12/07/2024 4:17 PM CDT Hospital Encounter [facility] 5th [place] [address] Jovel, Audra C, Jany Yañez MD Jerkovich, Adria, MD Simpson, Alina Thao, Franco Fitzgerald, MD Box, Palak Thao, GASTON Mcallister, Ivy Goldberg, GASTON Moeller, Marina Mendes, VIC Casanova, MD Veronica Menezes Nelson E, MD Sickle Cell Pain Discharge Disposition: Home or Self Care (Routine Discharge) from Last 3 Months Social History Tobacco Use Types Packs/Day Years Used Date Smoking Tobacco: Never Smokeless Tobacco: Never Tobacco Cessation:Counseling Given: Not Answered Alcohol Use Standard Drinks/Week Comments Never 0 (1 standard drink = 0.6 oz pur e alcohol) [facility] Utilities Answer Date Recorded In the past 12 months has e electric, gas, oil, or water [employer] threatened to shut off services in your [...] time in the past 12 m [facility], were you homeless or living in a usp (including now)? No 12/14/2024 Sex and Gender [...] SCDM series) 11/06/2023 COVID-19 Vaccine (2 - 2024- season) 2025 01/23/2022 Influenza Adult (#1) 2025 02/20/2011, 05/03/2009, 05/03/2009 DTaP, Tdap and Td Vaccines (5 - [...] METABOLIC PANEL Routine 11/24/2024 11:33 AM CDT from Last 3 Months Results * (ABNORMAL) URINALYSIS (01/29/2025 6:37 PM CDT) SPECIMEN TYPE URINE CLEAN CATCH 01/29/2025 6:43 PM CDT [facility] COLOR (U) YELLOW 01/29/2025 7:00 PM CDT [facility] TRANSPARENCY CLEAR 01/29/2025 7:00 PM CDT [facility] SPECIFIC GRAVITY (U) 1.011 1.001 - 1.030 01/29/2025 7:00 PM CDT [facility] U PH 6.0 5.0 - 9.0 01/29/2025 7:00 PM CDT [facility] LEUKOCYTES (U) NEGATIVE NEGATIVE 01/29/2025 7:00 PM CDT [facility] NITRITES NEGATIVE NEGATIVE 01/29/2025 7:00 PM T [facility] PROTEIN RANDOM (U) NEGATIVE <30 MG/DL 01/29/2025 7:00 PM CDT [facility] GLUCOSE (U) NORMAL NORMAL MG/DL 01/29/2025 7:00 PM CDT [facility] KETONES MG/DL (U) NEGATIVE NEGATIVE MG/DL 01/29/2025 7:00 PM T [facility] UROBILINOGEN 2.0(A) NORMAL MG/DL 01/29/2025 7:00 PM CDT [facility] BILIRUBIN (U) NEGATIVE NEGATIVE MG/DL 01/29/2025 7:00 PM CDT [facility] BLOOD (U) NEGATIVE NEGATIVE 01/29/2025 7:00 PM CDT [facility] URINE SPECIMEN OBTAINED BY CLEAN CATCH PROCEDURE / Unknown 01/29/2025 6:37 PM CDT Noe Gross ORDNANCE MECHANIC URINE ORDERABLES Final Result [facility] [address] [place] [address], [place] [phone] * XR LUMB SPINE 3V (01/29/2025 5:58 [...] 6:11 PM Narrative 01/29/2025 7:28 PM CDT [facility] [address] [place], [place] [address] Examination: XR LUMB SPINE 3V Exam time: [...] Procedure Note Hilton Watkins MD - 01/29/[address] [address] Examination: XR LUMB SPINE 3V Exam time: [...] cell disease, similar to CT10/30/2024. Preliminary: Roland Oliva, DO01/29/2025 6:15 PM The attending radiologist has reviewed the image(s) and agrees with thecontent of this report. Ordered By: NOE GROSS Interpreted By: Roland Oliva DO, 01/29/2025 6:11 PM us Noe Gross ORDNANCE MECHANIC GENERAL IMAGING Final Result * (ABNORMAL) RETICULOCYTE CT, AUTO (01/29/2025 5:05 PM CDT) Only the most recent of19 resultswithin the time period is included. RETICULOCYTE COUNT 14.7(H) 0.8 - 2.1 % 01/29/2025 5:50 PM CDT [facility] Comment:Verified by dilution . ABSOLUTE RETICULOCYTE 0.40(H) 0.03 - 0.11 x10'6/uL 01/29/2025 5:50 PM CDT [facility] IMMATURE RETIC FRACTION 41.6(H) 2.3 - 13.4 % 01/29/2025 5:50 PM CDT [facility] RETIC HGB 31.0 28.0 - 35.0 PG 01/29/2025 5:50 PM CDT [facility] 01/29/2025 5:05 PM CDT us Noe Gross NP LABORATORY Final Result [facility] [address] [place] [address], [place] [phone] * (ABNORMAL) COMPREHENSIVE METABOLIC PANEL (01/29/2025 5:05 PM CDT) Only the most recent of14 resultswithin the time period is included. GLUCOSE 135(H) 70 - 99 MG/DL 01/29/2025 5:55 PM CDT [facility] BUN 2(L) 7 - 18 MG/DL 01/29/2025 5:55 PM CDT [facility] CREATININE S/P/B 0.54(L) 0.7 - 1.3 MG/DL 01/29/2025 5:55 PM CDT [facility] SODIUM S/P/B 139 136 - 145 MMOL/L 01/29/2025 5:55 PM CDT [facility] POTASSIUM S/P/B 3.5 3.5 - 5.1 MMOL/L 01/29/2025 5:55 PM CDT [facility] CHLORIDE S/P/B 110 97 - 115 MMOL/L 01/29/2025 5:55 PM CDT [facility] CO2 23.6 21 - 32 MMOL/L 01/29/2025 5:55 PM CDT [facility] CALCIUM S/P/B 8.7 8.5 - 10.1 MG/DL 01/29/2025 5:55 PM CDT [facility] BILIRUBIN TOTAL S/P/B 5.4(H) 0.2 - 1.2 MG/DL 01/29/2025 5:55 PM CDT [facility] Comment: THIS ASSAY IS NOT RECOMMENDED FOR PATIENTS UNDERGOING TREATMENT WITH ELTROMBOPAG DUE TO THE POTENTIAL FOR FALSELY ELEVATED RESULTS. TOTAL PROTEIN S/P/B 8.1 6.4 - 8.2 G/DL 01/29/2025 5:55 PM CDT [facility] ALBUMIN S/P/B 3.7 3.4 - 5.0 G/DL 01/29/2025 5:55 PM CDT [facility] AST 59(H) 15 - 37 U/L 01/29/2025 5:55 PM CDT [facility] ALT 31 16 - 60 U/L 01/29/2025 5:55 PM CDT [facility] ALKALINE PHOSPHATASE S/P/B 307(H) 50 - 136 U/L 01/29/2025 5:55 PM CDT [facility] ANION GAP 5.4 2 - 10 MMOL/L 01/29/2025 5:55 PM CDT [facility] BUN CREATININE RATIO 3.7(L) 6 - 26 01/29/2025 5:55 PM CDT [facility] A/G RATIO 0.8(L) 1.0 - 2.0 RATIO 01/29/2025 5:55 PM CDT [facility] GFR ESTIMATE >90 >90 ML/MIN/1.7 3 M2 01/29/2025 5:55 PM CDT [facility] Comment: NOTE: eGFR is not calculated for patients <18 years of age or gender unknown. This is an estimated GFR calculation using the new CKD EPI creatinine equation without race and so does not require a correction factor for race. This estimated GFR should not be used for calculating drug doses. 01/29/2025 5:05 PM CDT Noe Gross NP LABORATORY Final Result [facility] [address] [place] [address], * (ABNORMAL) CBC W/DIFF AUTOMATED (01/29/2025 5:05 PM CDT) Only the most recent of22 resultswithin the time period is included. WBC 11.82(H) 4.5 - 11.0 x10'3/uL 01/29/2025 5:50 PM CDT [facility] RBC 2.74(L) 4.70 - 6.10 x10'6/uL 01/29/2025 5:50 PM CDT [facility] HGB 8.4(L) 14.0 - 18.0 G/DL 01/29/2025 5:50 PM CDT [facility] HCT 24.0(L) 43.0 - 54.0 % 01/29/2025 5:50 PM CDT [facility] MCV 87.6 80.0 - 94.0 FL 01/29/2025 5:50 PM CDT [facility] MCH 30.7 27.0 - 31.0 PG 01/29/2025 5:50 PM CDT [facility] MCHC 35.0 32.0 - 36.0 G/DL 01/29/2025 5:50 PM CDT [facility] RDW 23.0(H) 11.5 - 14.5 % 01/29/2025 5:50 PM CDT [facility] PLT 300 130 - 400 x10'3/uL 01/29/2025 5:50 PM CDT [facility] MPV 10.2 9.3 - 12.2 FL 01/29/2025 5:50 PM CDT [facility] DIFFERENTIAL TYPE MANUAL DIFFERENTIAL 01/29/2025 6:06 PM CDT [facility] SEG NEUTROPHILS 59 % 6:06 PM CDT [facility] LYMPHOCYTES 27 % 01/29/2025 6:06 PM CDT [facility] ATYP. LYMPHS 1 % 01/29/2025 6:06 PM CDT [facility] MONOCYTES 9 % 01/29/2025 6:06 PM CDT [facility] EOSINOPHILS 2 % 01/29/2025 6:06 PM CDT [facility] BASOPHILS 1 % 01/29/2025 6:06 PM CDT [facility] MYELOCYTES 1 % 01/29/2025 6:06 PM CDT [facility] NRBC 2(H) 0 /100 WBC 01/29/2025 6:06 PM CDT [facility] ABS. NEUTROPHILS 6.97 1.80 - 7.70 x10'3/uL 01/29/2025 6:06 PM CDT [facility] ABS. LYMPHOCYTES 3.31 1.00 - 4.80 x10'3/uL 01/29/2025 6:06 PM CDT [facility] ABS. MONOCYTES 1.06(H) 0.30 - 0.82 x10'3/uL 01/29/2025 6:06 PM CDT [facility] ABS. EOSINOPHILS 0.24 0.04 - 0.54 x10'3/uL 01/29/2025 6:06 PM CDT [facility] ABS. BASOPHILS 0.12(H) 0.01 - 0.08 x10'3/uL 01/29/2025 6:06 PM CDT [facility] ABS. MYELOCYTES 0.12(H) 0.00 x10'3/uL 01/29/2025 6:06 PM CDT [facility] ABS. NUCLEATED RBC'S 0.24(H) 0.00 - 0.01 x10'3/uL 01/29/2025 6:06 PM CDT [facility] RBC MORPHOLOGY SLIDE REVIEWED 2024 6:06 PM CDT [facility] ANISO 2+ 01/29/2025 6:06 PM CDT [facility] POIKLO 1+ 01/29/2025 6:06 PM CDT [facility] TARGET CELLS 1+ 01/29/2025 6:06 PM CDT [facility] SICKLE CELL 1+ 01/29/2025 6:06 PM CDT [facility] PLT EST. ADEQUATE 01/29/2025 6:06 PM CDT [facility] 01/29/2025 5:05 PM CDT us Noe Gross ORDNANCE MECHANIC LABORATORY Final Result [facility] [address] [place] [address], [place] [phone] * EKG Reading (01/18/2025 4:52 PM CDT) [...] 95. No ectopy us Deo Cantrell MD IN CARDIOVASCULAR SYSTEM SERVI BLAYNE Final Result * ECG 12 lead (01/18/2025 4:46 PM CDT) Only the most recent of3 resultswithin the time period is included. 01/18/2025 4:46 PM CDT Narrative [facility] ([facility] RAD - 01/19/2025 6:57 AM CDT [address] Test Date: 2025-01-18 Pat Name: JOHNNY SIMON Department: 41 Room: [facility] Gender: Male Transition Of Care Specialist: [id number] : 1995 Requested By: VIPUL MURCIA Order Number: [id number] Reading MD: Humberto Blake Measurements Intervals Chambers Rate: 95 P: 4 IN: 184 QRS: 39 QRSD: 90 T: 29 QT: 366 QTc: 461 Interpretive Statements SINUS RHYTHM WITH SINUS ARRHYTHMIA NONSPECIFIC T-WAVE ABNORMALITY Compared to ECG 12/31/2024 15:39:50 Sinus tachycardia no longer present T-wave abnormality still present Procedure Note Humberto Blake MD - 01/19/[address] Test Date: 2025-01-18 Pat Name: JOHNNY SIMON Department: 41 Room: [facility] Gender: Male Transition Of Care Specialist: [id number] : 1995 Requested By: VIPUL MURCIA Order Number: [id number] Reading MD: Humberto Blake Measurements Intervals Chambers Rate: 95 P: 4 IN: 184 QRS: 39 QRSD: 90 T: 29 QT: 366 QTc: 461 Interpretive Statements SINUS RHYTHM WITH SINUS ARRHYTHMIA NONSPECIFIC T-WAVE ABNORMALITY Compared to ECG 12/31/2024 15:39:50 Sinus tachycardia no longer present T-wave abnormality still present Vipul Murcia HEATING AND BLENDING SUPERVISOR ECG ORDERABLES Final Result [facility] ([facility] RAD * XR CHEST PORTABLE (01/18/2025 4:39 PM CDT) Only the most recent of3 resultswithin the time period is included. Anatomical Region Laterality Modality Chest Radiographic Mireya ging 01/18/2025 4:40 PM CDT Impressions 01/18/2025 4:41 PM CDT IMPRESSION: No definitive radiographic evidence of active chest disease. Ordered By: DEO CANTRELL Interpreted By: Emory Beyer MD, 01/18/2025 4:40 PM Narrative 01/18/2025 4:41 PM [address] [address] Examination: XR CHEST PORTABLE Exam time: 01/18/2025 [...] Procedure Note Emory Beyer MD - 01/18/[address] [address] Examination: XR CHEST PORTABLE Exam time: 01/18/2025 [...] 3:46 PM CDT) Only the most recent of3 resultswithin the time period is included. TROPONIN I HIGH SENSITIVITY 7 <79 ng/L 01/18/2025 6:01 PM CDT [facility] Comment: HIGH DOSES OF BIOTIN, TROPONIN-SPECIFIC AUTOANTIBODIES, AND ANTIBODY THERAPY CONTAINING HAMA MAY INTERFERE WITH THIS TEST RESULT. CORRELATION TO CLINICAL HISTORY AND PRESENTATION RECOMMENDED. 01/18/2025 3:46 PM CDT Vipul Murcia APRN LABORATORY Final Result [facility] [address] [place] [address], * MAGNESIUM (12/16/2024 6:36 AM CDT) MAGNESIUM 2.1 1.8 - 2.4 MG/DL 12/16/2024 12:30 PM CDT [facility] 12/16/2024 6:36 AM CDT Brenden Steel DO LABORATORY Final Result Performing Organization Address [facility] Co de Phone Number [facility] [address] [place] [address], * CT CHEST W CON (12/14/2024 9:13 PM CDT) Anatomical Region Laterality Modality Chest Computed Tomogra phy 12/15/2024 12:5 5 AM CDT Impressions 12/15/2024 1:01 AM CDT Impression: 1. No acute cardiopulmonary abnormalities. 2. Mild bilateral dependent atelectasis. 3. Additional chronic findings as above. Referred By: Interpreted By: Ryley Lane MD, 12/15/2024 12:55 AM Narrative 12/15/2024 1:01 AM CDT [facility] [address] [place], [place] [address] Examination: CT chest with IV contrast. Clinical [...] Procedure Note Ryley Lane DO - 12/15/2024 [place] [address] Examination: CT chest with IV contrast. Clinical [...] 2:15 PM Narrative 12/13/2024 2:18 PM CDT [place] [address] Examination: Chest 2 View History: Chest pain, sickle cell anemia DATE/TIME: 12/13/2024 2:02 PM Comparison: November 27, 2024 Technique: PA and lateral views were obtained. Findings: Heart size, mediastinal contours and pulmonary vasculature are within normal limits. No pulmonary consolidation, pleural effusion or pneumothorax. No acute osseous abnormality. Procedure Note Jose Tran MD - 12/13/2024 [place] [address] Examination: Chest 2 View History: Chest pain, [...] - 18.0 G/DL 12/06/2024 3:43 PM CDT [facility] HCT 24.6(L) 43.0 - 54.0 % 12/06/2024 3:43 PM CDT [facility] 12/06/2024 2:34 PM CDT Anival Lacey DO LABORATORY Final Resul t [facility] [address] [place] [address], [place] [phone] * XR SHOULDER RT MIN 2V (12/04/2024 4:18 PM CDT) Anatomical Region Laterality Modality Shoulder Radiographic Mireya ging 12/04/2024 4:17 PM CDT Impressions 12/04/2024 4:20 PM CDT IMPRESSION: 1) Abnormal study again demonstrating 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 Ordered By: SANA MARTIN Interpreted By: Robert Vera MD, 12/04/2024 4:17 PM Narrative 12/04/2024 4:20 PM CDT [facility] [address] [place], [place] [address] Examination: XR SHOULDER RT MIN 2V Exam [...] Procedure Note Robert Vera MD - 12/04/[address] [address] Examination: XR SHOULDER RT MIN 2V Exam [...] 6:00 AM CDT) Only the most recent of6 resultswithin the time period is included. GLUCOSE 117(H) 70 - 99 MG/DL 11/29/2024 6:38 AM CDT [facility] BUN 3(L) 7 - 18 MG/DL 11/29/2024 6:38 AM T [facility] CREATININE S/P/B 0.61(L) 0.7 - 1.3 MG/DL 11/29/2024 6:38 AM T [facility] SODIUM S/P/B 135(L) 136 - 145 MMOL/L 11/29/2024 6:38 AM T [facility] POTASSIUM S/P/B 3.6 3.5 - 5.1 MMOL/L 11/29/2024 6:38 AM T [facility] CHLORIDE S/P/B 105 97 - 115 MMOL/L 11/29/2024 6:38 AM T [facility] CO2 25.4 21 - 32 MMOL/L 11/29/2024 6:38 AM T [facility] CALCIUM S/P/B 8.7 8.5 - 10.1 MG/DL 11/29/2024 6:38 AM T [facility] ANION GAP 4.6 2 - 10 MMOL/L 11/29/2024 6:38 AM T [facility] BUN CREATININE RATIO 4.9(L) 6 - 26 11/29/2024 6:38 AM T [facility] GFR ESTIMATE >90 >90 ML/MIN/1.7 3 M2 11/29/2024 6:38 AM T [facility] Comment: NOTE: eGFR is not calculated for patients <18 years of age or gender unknown. This is an estimated GFR calculation using the new CKD EPI creatinine equation without race and so does not require a correction factor for race. This estimated GFR should not be used for calculating drug doses. 11/29/2024 6:00 AM CDT us Anival Tolbert DO LABORATORY Final Resul t [facility] [address] [place] [address], * CT HEAD WO CON (11/27/2024 5:46 PM CDT) Anatomical Region Laterality Modality Head Computed Tomogra phy 11/28/2024 2:02 AM CDT Impressions 11/28/2024 2:06 AM CDT IMPRESSION: 1. No CT evidence of an acute intracranial abnormality. 2. No maxillofacial bone fracture. Referred By: Interpreted By: Mohamud Stubbs MD, 11/28/2024 2:02 AM Narrative 11/28/2024 2:06 AM CDT [facility] [address] [place], [place] [address] EXAMINATION: CT HEAD WO CON, CT FACIAL [...] Procedure Note Mohamud Stubbs MD - 11/28/2024 [facility] [address] [place], [place] [address] EXAMINATION: CT HEAD WO CON, CT FACIAL [...] By: Mohamud Stubbs MD, 11/28/2024 2:02 AM Anvial Tolbert DO CT Final Resul t * CT FACIAL BONES WO CON (11/27/2024 5:46 PM CDT) Anatomical Region Laterality Modality Facial Computed Tomogra phy 11/28/2024 2:02 AM CDT Impressions 11/28/2024 2:06 AM CDT IMPRESSION: 1. No CT evidence of an acute intracranial abnormality. 2. No maxillofacial bone fracture. Referred By: Interpreted By: Mohamud Stubbs MD, 11/28/2024 2:02 AM Narrative 11/28/2024 2:06 AM CDT [address] [address] EXAMINATION: CT HEAD WO CON, CT FACIAL [...] Procedure Note Mohamud Stubbs MD - 11/28/[address] [address] EXAMINATION: CT HEAD WO CON, CT FACIAL [...] (ABNORMAL) HAPTOGLOBIN, QUANT (11/27/2024 8:45 AM CDT) HAPTOGLOBIN <7.8(L) 30.0 - 200.0 MG/DL 11/27/2024 9:40 AM CDT [facility] 11/27/2024 8:45 AM CDT Anival Tolbert DO LABORATORY Final Resul t [facility] [address] [place] [address], [place] [phone] * (ABNORMAL) LDH, LACTATE DEHYDROGENASE (11/27/2024 8:45 AM CDT) LDH 279(H) 87 - 241 UNITS/L 11/27/2024 1:28 PM CDT [facility] 11/27/2024 8:45 AM CDT us Anival Tolbert DO LABORATORY Final Resul t [facility] [address] [place] [address], from Last 3 Months Insurance [employer] Member Subscriber Plan / Payer (Ef fective 2024-Present) Name:Johnny Simon Relation to Subscriber:Self Name:Johnny Simon Payer ID:Not on file Group ID:[id number] Type:Not on file Address: [place] [phone] Advance Directives * Full Code (Latest Code [...] 11:13 PM 10/04/2024 4:31 PM Care Teams Foam Tank Laminator Relationship Specialty Start Date End Date None, Provider, MD PCP - General UNKNOWN PHYSICIAN SPECIALTY 09/28/24 Braeden Somers MD [address] [place] [address] Medical Oncologist HEMATOLOGY/ONCOLOGY 12/07/24 6
--- OUTSIDE RECORDS SUMMARY | 2025-02-24 12:54 | XMS_ITS | Encounter Summary ---
Author Organization [facility] Healthcare Address [address] [place] [address] Care Team Providers Care Fur Drummer Name Role Phone Ray Sainz MD Unavailable [phone] Miscellaneous, Not In File Primary Care Provider Unavailable Laurent Gonzalez MD Primary Care Provider [phone] Gordo Herrera MD Unavailable [phone] Travis Richards MD Primary Care Provider [phone] Miscellaneous, Not In File Unavailable Unava ilable Daily Cooper MD Primary Care Provider [phone] Laurent Gonzalez MD Primary Care Provider [phone] Mariam Hedrick Unavailable Unavailable Ning Lowery DNP Unavailable [phone] Mariam Hedrick Unavailable Unavailable Ning Lowery DNP Unavailable [phone] Ana Duran RN Unavailable [phone] Areli Zuniga Unavailable Unavailable Ning Lowery DNP Unavailable [phone] Tobin Terrell MD Unavailable [phone] Encounter Details Date Type Department Care Team (Late st Contact Info) Description 11/22/2020 Documentation [facility] Case Management [address] [place] [address] Roula Llanos MSW Social History Tobacco Use Types Packs/Day Years Used Date Smoking Tobacco: Never Smokeless Tobacco: Never Alcohol Use Standard Drinks/Week Comments Not Currently 0 (1 standard drink = 0.6 oz pur e alcohol) Sex and Gender Information Value Date Recorded Sex Assigned at Not on file Legal Sex Male 10:50 AM CAREER DEVELOPMENT SPECIALIST Gender Identity Male 12/06/2024 9:44 PM CDT Sexual Orientation Straight 12/06/2024 9: 44 PM CDT documented as of this encounter Miscellaneous Notes * Plan of Care - Roula Llanos MSW - 11/22/2020 12:01 PM CDT [facility] was able to fill patient prescription under [facility]. Roula Llanos LMSW [phone] documented in this encounter Plan of Treatment [...] antipyretics, immunocompetent pt. Flag removed. Talat Shay [phone] 02/09/2023 02/09/2023 02/12/2023 11 :55 AM CDT COVID: Recovered 02/12/2023 02/12/2023 05/13/2023 3:05 AM CAREER DEVELOPMENT SPECIALIST COVID: Suspected 04/27/2023 04/27/2023 04/27/2023 4:11 AM CAREER DEVELOPMENT SPECIALIST COVID: Suspected 06/26/2023 06/26/2023 06/26/2023 11:44 PM CAREER DEVELOPMENT SPECIALIST Diarrhea 06/26/2023 06/26/2023 07/10/2023 3:05 AM CAREER DEVELOPMENT SPECIALIST C. difficile suspected 08/30/2023 08/30/202308/30 2:37 PM [...] COVID: Suspected 03/30/2024 03/30/2024 03/30/2024 1:29 PM CAREER DEVELOPMENT SPECIALIST C. difficile suspected 05/12/2024 05/14/202405/14 7:10 AM CAREER DEVELOPMENT SPECIALIST COVID: Suspected 05/29/2024 05/29/2024 05/29/2024 10:06 PM CAREER DEVELOPMENT SPECIALIST COVID: Suspected 07/24/2024 07/24/2024 07/24/2024 5:44 AM CAREER DEVELOPMENT SPECIALIST Norovirus suspected 07/24/2024 07/24/2024 07/30/19 3:05 AM CAREER DEVELOPMENT SPECIALIST C. difficile suspected 07/24/2024 07/24/202407/29 3:05 AM CAREER DEVELOPMENT SPECIALIST COVID: Suspected 08/13/2024 08/13/2024 08/13/2024 1:30 PM CDT COVID: Suspected 11/01/2024 11/01/2024 11/01/2024 2:39 PM CDT Ring Surveillance: C. auris 11/08/2024 11/08/2024 11/15/2024 7:26 PM CDT COVID: Suspected 12/23/2024 12/23/2024 12/23/2024 5:12 PM CDT COVID: Suspected 02/15/2025 02/15/2025 02/15/2025 2:26 PM CDT documented as of this encounter Care Teams Fur Drummer Relationship Specialty Start Date End Date Miscellaneous, Not In File PCP - General 11/22/20 11/20/21 Laurent Gonzalez MD [address] [place] [address] PCP - General 11/21/21 08/11/22 Travis Richards MD [address] [place] [address] PCP - General Pediatric Hematology and Oncology 08/12/22 12/18/22 Daily Cooper MD [address] [place] [address] PCP - General Internal Medicine 12/19/22 10/17/23 Laurent Gonzalez MD [address] [place], [place] [id number] PCP - General Hematology and Oncology 10/18/23 Ray Sainz MD [address] [facility] [address] [place] [address] 02/10/20 [place] [address] [facility] [address] [place] [address] Consulting Physician Family Medicine 05/05/22 Miscellaneous, Not In File 12/14/22 Mariam Hedrick Outpatient Systems Project Manager 03/31/24 04/04/24 Ning Lowery DNP [address] [facility] [address] [place] [address] Nurse Practitioner Internal Medicine 03/31/24 04/04/24 Mariam Hedrick Outpatient Systems Project Manager 05/31/24 08/15/24 Ning Lowery DNP [address] [facility] [address] [place] [address] Nurse Practitioner Internal Medicine 05/31/24 08/15/24 Ana Duran, BOUCHRA [address] [facility] [address] [place] [address] [facility] Outpatient Systems Project Manager 07/29/24 08/02/24 Areli Zuniga Outpatient Systems Project Manager 08/16/24 09/23/24 Ning Lowery DNP [address] [facility] [address] [place] [address] Nurse Practitioner Internal Medicine 08/16/24 09/23/24 [place] [address] [address] Consulting Physician Orthopedic Surgery 08/18/24 documented as of this encounter
--- OUTSIDE RECORDS SUMMARY | 2025-02-24 12:55 | XMS_ITS | Clinical Summary ---
Author Organization [facility] Address [address] [place] [address] Phone Care Team Providers Care Agronomy Supervisor Name Role Phone Unavailable Primary Care Provider [...] mouth daily. Active naloxone (NARCAN) 4 mg/spray [place], Non-Aerosol EMERGENCY USE ONLY: Administer 1 spray [...] hours as needed for Pain 10 Tablet 02/24/2025 10:41 AM CDT 5 Active Active Problems Problem Noted Date [...] 09/0 05/2023 Shortness of breath 02/20/2023 01/25/20 Rectal bleeding 12/06/2022 01/25/2024 Elevated LFTs 08/02/2022 [...] Encounters Date Type Department Care Team Description 02/15/2025 External Device Data [facility] ABSTRACTION Provider, Abstract 02/15/2025 External Device Data [facility] ABSTRACTION Provider, Abstract 01/25/2025 External Device Data [facility] ABSTRACTION Provider, [...] CDT - 12/23/2024 12:06 PM CDT Emergency [facility] [address] [place] [place] [address] Thien Narayan MD Sickle cell pain crisis (CMS/HCC) (Primary Dx) Discharge Disposition: Home or Self Care 12/14/2024 External Device Data [facility] ABSTRACTION Provider, Abstract 12/09/2024 8:20 PM CDT - 12/13/2024 11:30 AM CDT Hospital Encounter [facility] Tele[facility] [address] [place] [address] Guy Lowery MD Abduljaber, MD Marlin Gale, [...] on file 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 Procedures Procedure Name Priority Date/Time Associated Diagnosis [...] CDT 12/23/2024 9:19 AM CDT us Protocol [facility] Emergency MD URINE ORDERABLES Fin al Result Performing Organization Address City/State/[facility] Co de Phone Number [facility]# [id number] [address] [place], [place] [id number] * (ABNORMAL) CBC WITH DIFFERENTIAL (12/23/2024 1:41 AM CDT) Only the most recent of4 resultswithin the time period is included. WBC 10.9(H) 4.0 - 9.8 K/uL 12/23/2024 2:39 AM CDT [facility] SERVICES [facility] NRBCS 1 % 12/23/2024 2:39 AM CDT [facility] RBC 2.86(L) 4.50 - 5.40 M/uL 12/23/2024 2:39 AM CDT [facility] HEMOGLOBIN 8.4(L) 13.6 - 16.5 g/dL 12/23/2024 2:39 AM CDT [facility] HEMATOCRIT 25.2(L) 40.0 - 48.0 % 12/23/2024 2:39 AM CDT [facility] MCV 88.1 82.0 - 99.0 fL 12/23/2024 2:39 AM CDT [facility] - . [place] MCH 29.4 27.2 - 32.6 pg 12/23/2024 2:39 AM CDT [facility] - [facility] MCHC 33.3 31.5 - 35.5 g/dL 12/23/2024 2:39 AM CDT [facility] - . [place] RDW 19.3(H) 11.5 - 14.5 % 12/23/2024 2:39 AM CDT [facility] - [facility] RDW-STDEV 62.1(H) 37.1 - 48.7 fL 12/23/2024 2:39 AM CDT [facility] - [facility] PLATELETS 359(H) 140 - 350 K/uL 12/23/2024 2:39 AM CDT [facility] - [facility] MPV 10.5 9.3 - 12.4 fL 12/23/2024 2:39 AM CDT [facility] NEUTROPHILS 60 % 12/23/2024 2:39 AM CDT [facility] LYMPHOCYTES 29 % 12/23/2024 2:39 AM CDT [facility] MONOCYTES 10 % 12/23/2024 2:39 AM CDT [facility] EOSINOPHILS 1 % 12/23/2024 2:39 AM CDT [facility] BASOPHILS 1 % 12/23/2024 2:39 AM CDT [facility] IMMATURE GRANULOCYTES 0 % 12/23/2024 2:39 AM CDT [facility] NEUTROPHIL ABSOLUTE 6.56 1.90 - 7.00 K/uL 12/23/2024 2:39 AM CDT [facility] LYMPHOCYTE ABSOLUTE 3.10 0.70 - 4.50 K/uL 12/23/2024 2:39 AM CDT [facility] MONOCYTE ABSOLUTE 1.03 0.10 - 1.30 K/uL 12/23/2024 2:39 AM CDT [facility] EOSINOPHIL ABSOLUTE 0.08 0.00 - 0.70 K/uL 12/23/2024 2:39 AM CDT [facility] BASOPHILS ABSOLUTE 0.05 0.00 - 0.20 K/uL 12/23/2024 2:39 AM CDT [facility] - . [facility] IMMATURE GRANULOCYTES ABSOLUTE 0.03 0.00 - 0.03 K/uL 12/23/2024 2:39 AM CDT [facility] - . [facility] Blood Venipuncture / Unknown 12/23/2024 1:41 AM CDT 12/23/2024 1:47 AM CDT Bk Luke IV, DO HEMATOLOGY ORDERA BLES Final Result [facility] CLIA# [id number] [address] [place] [address] * (ABNORMAL) RETICULOCYTES (12/23/2024 1:41 AM CDT) Only the most recent of2 resultswithin the time period is included. [facility] RETICULOCYTES 13.0(H) 0.7 - 2.9 % 12/23/2024 3:04 AM CDT [facility] SERVICES - [facility] IMMATURE RETIC FRACTION 37.2(H) 3.0 - 18.0 % 12/23/2024 3:04 AM CDT [facility] - [facility] RETICULOCYTE, ABSOLUTE 0.3656 10e6/uL 12/23/2024 3:04 AM CDT [facility] - [facility] Comment:Quantitated by pita benjamin. Blood Venipuncture / Unknown 12/23/2024 1:41 AM CDT 12/23/2024 1:47 AM CDT Bk Luke IV, DO HEMATOLOGY ORDERA BLES Final Result [facility] CLIA# [id number] [address] [place] [address] * (ABNORMAL) COMPREHENSIVE METABOLIC PANEL (12/23/2024 1:41 AM CDT) Only the most recent of4 resultswithin the time period is included. [facility] Signature SODIUM 136 136 - 145 mmol/L 12/23/2024 2:23 AM T [facility] - . [facility] POTASSIUM 3.5 3.5 - 5.0 mmol/L 12/23/2024 2:23 AM [facility] CHLORIDE 102 98 - 107 mmol/L 12/23/2024 2:23 AM T [facility] CO2 24 22 - 29 mmol/L 12/23/2024 2:23 AM [facility] CALCIUM 9.2 8.6 - 10.2 mg/dL 12/23/2024 2:23 AM [facility] - . [place] BUN 3(L) 6 - 20 mg/dL 12/23/2024 2:23 AM [facility] - . [facility] CREATININE 0.49(L) 0.67 - 1.17 mg/dL 12/23/2024 2:23 AM [facility] - . [place] GLUCOSE 101(H) 74 - 99 mg/dL 12/23/2024 2:23 AM [facility] - . [place] TOTAL PROTEIN 8.0 6.7 - 8.6 g/dL 12/23/2024 2:23 AM [facility] ALBUMIN 4.1 3.5 - 5.2 g/dL 12/23/2024 2:23 AM [facility] - . [place] BILIRUBIN TOTAL 5.7(H) 0.0 - 1.2 mg/dL 12/23/2024 2:23 AM [facility] - . [facility] ALKALINE PHOSPHATASE 403(H) 40 - 129 U/L 12/23/2024 2:23 AM T [facility] - . [place] AST 78(H) <41 U/L 12/23/2024 2:23 AM [facility]. [place] ALT 49(H) <42 U/L 12/23/2024 2:23 AM [facility] - . [place] GFR >60 >=60 mL/min/1.7 3 sq meter 12/23/2024 2:23 AM CDT [facility] Comment:eGFR calculated with 2020 CKD-EPI equation. Vegetarian diet, extremely high or low muscle mass, and may affect results. Cystatin C with Glomerular Filtration Rate is a suitable alternative for these patients. ANION GAP 10 8 - 16 mmol/L 12/23/2024 2:[address] [facility] Blood Venipuncture / Unknown 12/23/2024 1:41 AM CDT 12/23/2024 1:47 AM CDT Narrative [facility] - 12/23/2024 2:23 AM CDT Samples containing indocyanine green cause interferences on Total and/or Direct Bilirubin and must not be measured. us Bk Luke IV, DO CHEMISTRY ORDERAB LES Final Result [facility]# [id number] [address] [facility] [place] [address] * XR CHEST PA AND LATERAL 2 [...] PA AND LATERAL 2 VW Ordering provider: [facility] History: 29 years Male with Chest Pain. See Reason for Exam. Comparison: 12/10/2024 Procedure Note Saeid Higgins MD - 12/22/2024 XR CHEST PA AND LATERAL 2 VW Ordering provider: [facility] History: 29 years Male [...] INTERFACE SYSTEM - 12/23/2024 6:03 AM CDT [place] [id number] Test Date: 2024-12-22 Pat Name: JOHNNY RIDGEWAY Department: 37 Room: Gender: Male Transfer Operator: rc : 1995 Requested By: Order Number: [id number] Reading MD: Jame Hernandez Measurements Intervals [place] Rate: 93 P: 24 AL: 202 QRS: 26 QRSD: 87 T: 24 QT: 379 QTc: 472 Interpretive Statements Sinus rhythm Borderline prolonged AL interval Possible left atrial enlargement Borderline prolonged QT interval Electronically Signed On 12-23-2024 6:03:06 CDT by Jame Hernandez Procedure Note Jame Hernandez MD - 12/23/[address] [address] Test Date: 2024-12-22 Pat Name: JOHNNY SIMON Department: 37 Room: Gender: Male Transfer Operator: rc : 1995 Requested By: Order Number: [id number] Reading : Jame Hernandez Measurements Intervals [place] Rate: 93 P: 24 AL: 202 QRS: 26 QRSD: 87 T: 24 QT: 379 QTc: 472 Interpretive Statements Sinus rhythm Borderline prolonged AL interval Possible left atrial enlargement Borderline prolonged [...] <6 <=15 ng/L 12/10/2024 9:24 AM CDT [facility] [facility] Blood Venipuncture / Unknown 12/10/2024 8:19 AM CDT 12/10/2024 8:36 AM CDT [facility]ative [facility] - 12/10/2024 9:24 AM CDT Troponin Undetectable Iglesia Rausch PA-C CHEMISTRY ORDERABLES Fin al Result Performing Organization Address City/[facility] Co de Phone Number [facility] [employer] [facility]# [id number] [address] [facility] [place] [address] * (ABNORMAL) LACTATE DEHYDROGENASE (12/10/2024 8:19 AM CDT) Pathologist [facility] LD (LACTATE DEHYDROGENASE) 438(H) 135 - 225 U/L 12/10/2024 9:24 AM CDT [facility] Comment:Moderate hemolysis p resent. Can cause significant falsely elevated result. Redraw if indicated. Blood Venipuncture / Unknown 12/10/2024 8:19 AM CDT 12/10/2024 8:36 AM CDT Iglesia Rausch PA-C CHEMISTRY ORDERABLES Fin al Result [facility] [employer] [facility]# [id number] [address] [place] [address] * (ABNORMAL) HAPTOGLOBIN (12/10/2024 8:19 AM CDT) HAPTOGLOBIN <10(L) 30 - 200 mg/dL 12/10/2024 9:42 AM CDT [facility] Comment:Hemolysis present. R esult may be falsely decreased. Blood Venipuncture / Unknown 12/10/2024 8:19 AM CDT 12/10/2024 8:34 AM CDT Iglesia Rausch PA-C CHEMISTRY ORDERABLES Fin al Result [facility]# [id number] [address] [place] [address] from Last 3 Months Insurance [employer] [facility] MEDICAID RX INFOCROSSING Medicaid RX [employer] PLANS (INTERNAL) [facility] Internal Plans Advance Directives For more information, please contact: [phone] * Full Code (Latest Code Status on [...]
--- OUTSIDE RECORDS SUMMARY | 2025-02-24 14:08 | XMS_ITS | Clinical Summary ---
Author Organization [facility] Address [address] [place] [address] Care Team Providers Care Mail Processor Name Role Phone None, Provider MD Primary Care Provider Braeden Downs MD Unavailable [phone] Allergies Active Allergy Reactions Criticality Noted Date [...] Noted Date Diagnosed Date Sickle cell crisis ([facility]) 12/13/2024 Sickle cell anemia ([facility]) 11/09/2024 Sickle cell anemia with crisis ([facility]) 10/29/2024 Sickle cell pain crisis ([facility]) 2024 Encounters Date Type Department Care Team Description 01/29/2025 4:57 PM CDT - 01/29/2025 8:55 PM CDT Emergency [facility] [place] [address] Noe Gross NP Back Pain Discharge Disposition: Home or Self Care (Routine Discharge) 01/29/2025 Travel 01/18/2025 3:27 PM CDT - 01/18/2025 7:53 PM CDT Emergency [facility] [place] [address] Deo Cantrell MD Sickle Cell Pain Discharge Disposition: Home or Self Care (Routine Discharge) 01/18/2025 Travel 12/31/2024 3:41 PM CDT - 12/31/2024 11:27 PM CDT Emergency [facility] [place] [address] Navi Saenz MD Sickle Cell Pain Discharge Disposition: Home or Self Care (Routine Discharge) 12/31/2024 Travel 12/13/2024 2:12 PM CDT - 12/22/2024 11:28 AM CDT [facility] [address] [place] [address] Stephan Galicia MD Romick, Jordan K, MD Wagner, Roy M, DO Sickle Cell Pain Discharge Disposition: Home or Self Care (Routine Discharge) 12/13/2024 Travel 12/10/2024 Hospital Follow-up Call [facility] [place] [address] Renetta Espinoza LPN Follow Up Call (ANJELICA 11/09-12/07/24) 11/09/2024 12:31 PM CDT - 12/07/2024 4:17 PM CDT Hospital Encounter [facility] [address] [place] [address] Jovel, Audra C, Jany Yañez MD [place], [...] has e electric, gas, oil, or water [employer] threatened to shut off services in your [...] in a long term (including now)? No 12/14/2024 Sex and Gender [...] URINE CLEAN CATCH 01/29/2025 6:43 PM CDT [facility] COLOR (U) YELLOW 01/29/2025 7:00 PM CDT [facility] TRANSPARENCY CLEAR 01/29/2025 7:00 PM CDT [facility] SPECIFIC GRAVITY (U) 1.011 1.001 - 1.030 01/29/2025 7:00 PM CDT [facility] U PH 6.0 5.0 - 9.0 01/29/2025 7:00 PM CDT [facility] LEUKOCYTES (U) NEGATIVE NEGATIVE 01/29/2025 7:00 PM CDT [facility] NITRITES NEGATIVE NEGATIVE 01/29/2025 7:00 PM T [facility] PROTEIN RANDOM (U) NEGATIVE <30 MG/DL 01/29/2025 7:00 PM CDT [facility] GLUCOSE (U) NORMAL NORMAL MG/DL 01/29/2025 7:00 PM CDT [facility] KETONES MG/DL (U) NEGATIVE NEGATIVE MG/DL 01/29/2025 7:00 PM T [facility] UROBILINOGEN 2.0(A) NORMAL MG/DL 01/29/2025 7:00 PM CDT [facility] BILIRUBIN (U) NEGATIVE NEGATIVE MG/DL 01/29/2025 7:00 PM CDT [facility] BLOOD (U) NEGATIVE NEGATIVE 01/29/2025 7:00 PM CDT [facility] URINE SPECIMEN OBTAINED BY CLEAN CATCH PROCEDURE / Unknown 01/29/2025 6:37 PM CDT Noe Gross STOCKBROKING DEALER URINE ORDERABLES Final Result [facility] [address] [place] [address], [place] [phone] * XR LUMB SPINE 3V (01/29/2025 5:58 [...] 6:11 PM Narrative 01/29/2025 7:28 PM CDT [facility] [address] [place], [place] [address] Examination: XR LUMB SPINE 3V Exam time: [...] Procedure Note Hilton Watkins MD - 01/29/[address] [address] Examination: XR LUMB SPINE 3V Exam time: [...] DO, 01/29/2025 6:11 PM us Noe Gross STOCKBROKING DEALER GENERAL IMAGING Final Result * (ABNORMAL) RETICULOCYTE CT, AUTO (01/29/2025 5:05 PM CDT) Only the most recent of19 resultswithin the time period is included. RETICULOCYTE COUNT 14.7(H) 0.8 - 2.1 % 01/29/2025 5:50 PM CDT [facility] Comment:Verified by dilution . ABSOLUTE RETICULOCYTE 0.40(H) 0.03 - 0.11 x10'6/uL 01/29/2025 5:50 PM CDT [facility] IMMATURE RETIC FRACTION 41.6(H) 2.3 - 13.4 % 01/29/2025 5:50 PM CDT [facility] RETIC HGB 31.0 28.0 - 35.0 PG 01/29/2025 5:50 PM CDT [facility] 01/29/2025 5:05 PM CDT us Noe Gross NP LABORATORY Final Result [facility] [address] [place] [address], [place] [phone] * (ABNORMAL) COMPREHENSIVE METABOLIC PANEL (01/29/2025 5:05 PM CDT) Only the most recent of14 resultswithin the time period is included. GLUCOSE 135(H) 70 - 99 MG/DL 01/29/2025 5:55 PM CDT [facility] BUN 2(L) 7 - 18 MG/DL 01/29/2025 5:55 PM CDT [facility] CREATININE S/P/B 0.54(L) 0.7 - 1.3 MG/DL 01/29/2025 5:55 PM CDT [facility] SODIUM S/P/B 139 136 - 145 MMOL/L 01/29/2025 5:55 PM CDT [facility] POTASSIUM S/P/B 3.5 3.5 - 5.1 MMOL/L 01/29/2025 5:55 PM CDT [facility] CHLORIDE S/P/B 110 97 - 115 MMOL/L 01/29/2025 5:55 PM CDT [facility] CO2 23.6 21 - 32 MMOL/L 01/29/2025 5:55 PM CDT [facility] CALCIUM S/P/B 8.7 8.5 - 10.1 MG/DL 01/29/2025 5:55 PM CDT [facility] BILIRUBIN TOTAL S/P/B 5.4(H) 0.2 - 1.2 MG/DL 01/29/2025 5:55 PM CDT [facility] Comment: THIS ASSAY IS NOT RECOMMENDED FOR PATIENTS UNDERGOING TREATMENT WITH ELTROMBOPAG DUE TO THE POTENTIAL FOR FALSELY ELEVATED RESULTS. TOTAL PROTEIN S/P/B 8.1 6.4 - 8.2 G/DL 01/29/2025 5:55 PM CDT [facility] ALBUMIN S/P/B 3.7 3.4 - 5.0 G/DL 01/29/2025 5:55 PM CDT [facility] AST 59(H) 15 - 37 U/L 01/29/2025 5:55 PM CDT [facility] ALT 31 16 - 60 U/L 01/29/2025 5:55 PM CDT [facility] ALKALINE PHOSPHATASE S/P/B 307(H) 50 - 136 U/L 01/29/2025 5:55 PM CDT [facility] ANION GAP 5.4 2 - 10 MMOL/L 01/29/2025 5:55 PM CDT [facility] BUN CREATININE RATIO 3.7(L) 6 - 26 01/29/2025 5:55 PM CDT [facility] A/G RATIO 0.8(L) 1.0 - 2.0 RATIO 01/29/2025 5:55 PM CDT [facility] GFR ESTIMATE >90 >90 ML/MIN/1.7 3 M2 01/29/2025 5:55 PM CDT [facility] Comment: NOTE: eGFR is not calculated for patients <18 years of age or gender unknown. This is an estimated GFR calculation using the new CKD EPI creatinine equation without race and so does not require a correction factor for race. This estimated GFR should not be used for calculating drug doses. 01/29/2025 5:05 PM CDT Noe Gross NP LABORATORY Final Result [facility] [address] [place] [address], * (ABNORMAL) CBC W/DIFF AUTOMATED (01/29/2025 5:05 PM CDT) Only the most recent of22 resultswithin the time period is included. WBC 11.82(H) 4.5 - 11.0 x10'3/uL 01/29/2025 5:50 PM CDT [facility] RBC 2.74(L) 4.70 - 6.10 x10'6/uL 01/29/2025 5:50 PM CDT [facility] HGB 8.4(L) 14.0 - 18.0 G/DL 01/29/2025 5:50 PM CDT [facility] HCT 24.0(L) 43.0 - 54.0 % 01/29/2025 5:50 PM CDT [facility] MCV 87.6 80.0 - 94.0 FL 01/29/2025 5:50 PM CDT [facility] MCH 30.7 27.0 - 31.0 PG 01/29/2025 5:50 PM CDT [facility] MCHC 35.0 32.0 - 36.0 G/DL 01/29/2025 5:50 PM CDT [facility] RDW 23.0(H) 11.5 - 14.5 % 01/29/2025 5:50 PM CDT [facility] PLT 300 130 - 400 x10'3/uL 01/29/2025 5:50 PM CDT [facility] MPV 10.2 9.3 - 12.2 FL 01/29/2025 5:50 PM CDT [facility] DIFFERENTIAL TYPE MANUAL DIFFERENTIAL 01/29/2025 6:06 PM CDT [facility] SEG NEUTROPHILS 59 % 6:06 PM CDT [facility] LYMPHOCYTES 27 % 01/29/2025 6:06 PM CDT [facility] ATYP. LYMPHS 1 % 01/29/2025 6:06 PM CDT [facility] MONOCYTES 9 % 01/29/2025 6:06 PM CDT [facility] EOSINOPHILS 2 % 01/29/2025 6:06 PM CDT [facility] BASOPHILS 1 % 01/29/2025 6:06 PM CDT [facility] MYELOCYTES 1 % 01/29/2025 6:06 PM CDT [facility] NRBC 2(H) 0 /100 WBC 01/29/2025 6:06 PM CDT [facility] ABS. NEUTROPHILS 6.97 1.80 - 7.70 x10'3/uL 01/29/2025 6:06 PM CDT [facility] ABS. LYMPHOCYTES 3.31 1.00 - 4.80 x10'3/uL 01/29/2025 6:06 PM CDT [facility] ABS. MONOCYTES 1.06(H) 0.30 - 0.82 x10'3/uL 01/29/2025 6:06 PM CDT [facility] ABS. EOSINOPHILS 0.24 0.04 - 0.54 x10'3/uL 01/29/2025 6:06 PM CDT [facility] ABS. BASOPHILS 0.12(H) 0.01 - 0.08 x10'3/uL 01/29/2025 6:06 PM CDT [facility] ABS. MYELOCYTES 0.12(H) 0.00 x10'3/uL 01/29/2025 6:06 PM CDT [facility] ABS. NUCLEATED RBC'S 0.24(H) 0.00 - 0.01 x10'3/uL 01/29/2025 6:06 PM CDT [facility] RBC MORPHOLOGY SLIDE REVIEWED 2024 6:06 PM CDT [facility] ANISO 2+ 01/29/2025 6:06 PM CDT [facility] POIKLO 1+ 01/29/2025 6:06 PM CDT [facility] TARGET CELLS 1+ 01/29/2025 6:06 PM CDT [facility] SICKLE CELL 1+ 01/29/2025 6:06 PM CDT [facility] PLT EST. ADEQUATE 01/29/2025 6:06 PM CDT [facility] 01/29/2025 5:05 PM CDT us Noe Gross STOCKBROKING DEALER LABORATORY Final Result [facility] [address] [place] [address], [place] [phone] * EKG Reading (01/18/2025 4:52 PM CDT) [...] 95. No ectopy us Deo Cantrell MD MA CARDIOVASCULAR SYSTEM SERVI BLAYNE Final Result * ECG 12 lead (01/18/2025 4:46 PM CDT) Only the most recent of3 resultswithin the time period is included. 01/18/2025 4:46 PM CDT Narrative [facility] ([facility] RAD - 01/19/2025 6:57 AM CDT [address] Test Date: 2025-01-18 Pat Name: JOHNNY SIMON Department: 41 Room: [facility] Gender: Male Intertype Operator: [id number] : 1995 Requested By: VIPUL MURCIA Order Number: [id number] Reading MD: Humberto Blake Measurements Intervals [place] Rate: 95 P: 4 MA: 184 QRS: 39 QRSD: 90 T: 29 QT: 366 QTc: 461 Interpretive Statements SINUS RHYTHM WITH SINUS ARRHYTHMIA NONSPECIFIC T-WAVE ABNORMALITY Compared to ECG 12/31/2024 15:39:50 Sinus tachycardia no longer present T-wave abnormality still present Procedure Note Humberto Blake MD - 01/19/[address] Test Date: 2025-01-18 Pat Name: JOHNNY SIMON Department: 41 Room: [facility] Gender: Male Intertype Operator: [id number] : 1995 Requested By: VIPUL MURCIA Order Number: [id number] Reading MD: Humberto Blake Measurements Intervals [place] Rate: 95 P: 4 MA: 184 QRS: 39 QRSD: 90 T: 29 QT: 366 QTc: 461 Interpretive Statements SINUS RHYTHM WITH SINUS ARRHYTHMIA NONSPECIFIC T-WAVE ABNORMALITY Compared to ECG 12/31/2024 15:39:50 Sinus tachycardia no longer present T-wave abnormality still present Vipul Murcia ADVERTISING TEACHER ECG ORDERABLES Final Result [facility] ([facility]) RAD * XR CHEST PORTABLE (01/18/2025 4:39 PM CDT) Only the most recent of3 resultswithin the time period is included. Anatomical Region Laterality Modality Chest Radiographic Mireya ging 01/18/2025 4:40 PM CDT Impressions 01/18/2025 4:41 PM CDT IMPRESSION: No definitive radiographic evidence of active chest disease. Ordered By: DEO CANTRELL Interpreted By: Emory Beyer MD, 01/18/2025 4:40 PM Narrative 01/18/2025 4:[address] PM [address] [address] Examination: XR CHEST PORTABLE Exam time: 01/18/2025 [...] Procedure Note Emory Beyer MD - 01/18/[address] [address] Examination: XR CHEST PORTABLE Exam time: 01/18/2025 [...] 7 <79 ng/L 01/18/2025 6:01 PM CDT [facility] Comment: HIGH DOSES OF BIOTIN, TROPONIN-SPECIFIC AUTOANTIBODIES, AND ANTIBODY THERAPY CONTAINING HAMA MAY INTERFERE WITH THIS TEST RESULT. CORRELATION TO CLINICAL HISTORY AND PRESENTATION RECOMMENDED. 01/18/2025 3:46 PM CDT Vipul Murcia APRN LABORATORY Final Result [facility] [address] [place] [address], * MAGNESIUM (12/16/2024 6:36 AM CDT) MAGNESIUM 2.1 1.8 - 2.4 MG/DL 12/16/2024 12:30 PM CDT [facility] 12/16/2024 6:36 AM CDT Brenden Steel DO LABORATORY Final Result Performing Organization Address [facility] Co de Phone Number [facility] [address] [place] [address], * CT CHEST W CON (12/14/2024 9:13 PM CDT) Anatomical Region Laterality Modality Chest Computed Tomogra phy 12/15/2024 12:5 5 AM CDT Impressions 12/15/2024 1:01 AM CDT Impression: 1. No acute cardiopulmonary abnormalities. 2. Mild bilateral dependent atelectasis. 3. Additional chronic findings as above. Referred By: Interpreted By: Ryley Lane MD, 12/15/2024 12:55 AM Narrative 12/15/2024 1:01 AM CDT [facility] [address] [place], [place] [address] Examination: CT chest with IV contrast. Clinical [...] Procedure Note Ryley Lane DO - 12/15/2024 [place] [address] Examination: CT chest with IV contrast. Clinical [...] 2:15 PM Narrative 12/13/2024 2:18 PM CDT [place] [address] Examination: Chest 2 View History: Chest pain, sickle cell anemia DATE/TIME: 12/13/2024 2:02 PM Comparison: November 27, 2024 Technique: PA and lateral views were obtained. Findings: Heart size, mediastinal contours and pulmonary vasculature are within normal limits. No pulmonary consolidation, pleural effusion or pneumothorax. No acute osseous abnormality. Procedure Note Jose Tran MD - 12/13/2024 [place] [address] Examination: Chest 2 View History: Chest pain, [...] - 18.0 G/DL 12/06/2024 3:43 PM CDT [facility] HCT 24.6(L) 43.0 - 54.0 % 12/06/2024 3:43 PM CDT [facility] 12/06/2024 2:34 PM CDT Anival Lacey DO LABORATORY Final Resul t [facility] [address] [place] [address], [place] [phone] * XR SHOULDER RT MIN 2V (12/04/2024 4:18 PM CDT) Anatomical Region Laterality Modality Shoulder Radiographic Mireya ging 12/04/2024 4:17 PM CDT Impressions 12/04/2024 4:20 PM CDT IMPRESSION: 1) Abnormal study again demonstrating 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 Ordered By: SANA MARTIN Interpreted By: Robert Vera MD, 12/04/2024 4:17 PM Narrative 12/04/2024 4:20 PM CDT [facility] [address] [place], [place] [address] Examination: XR SHOULDER RT MIN 2V Exam [...] Procedure Note Robert Vera MD - 12/04/[address] [address] Examination: XR SHOULDER RT MIN 2V Exam [...] - 99 MG/DL 11/29/2024 6:38 AM CDT [facility] BUN 3(L) 7 - 18 MG/DL 11/29/2024 6:38 AM T [facility] CREATININE S/P/B 0.61(L) 0.7 - 1.3 MG/DL 11/29/2024 6:38 AM T [facility] SODIUM S/P/B 135(L) 136 - 145 MMOL/L 11/29/2024 6:38 AM T [facility] POTASSIUM S/P/B 3.6 3.5 - 5.1 MMOL/L 11/29/2024 6:38 AM T [facility] CHLORIDE S/P/B 105 97 - 115 MMOL/L 11/29/2024 6:38 AM T [facility] CO2 25.4 21 - 32 MMOL/L 11/29/2024 6:38 AM T [facility] CALCIUM S/P/B 8.7 8.5 - 10.1 MG/DL 11/29/2024 6:38 AM T [facility] ANION GAP 4.6 2 - 10 MMOL/L 11/29/2024 6:38 AM T [facility] BUN CREATININE RATIO 4.9(L) 6 - 26 11/29/2024 6:38 AM T [facility] GFR ESTIMATE >90 >90 ML/MIN/1.7 3 M2 11/29/2024 6:38 AM T [facility] Comment: NOTE: eGFR is not calculated [...] Anival Tolbert DO LABORATORY Final Resul t [facility] [address] [place] [address], * CT HEAD WO CON (11/27/2024 5:46 PM CDT) Anatomical Region Laterality Modality Head Computed Tomogra phy 11/28/2024 2:02 AM CDT Impressions 11/28/2024 2:06 AM CDT IMPRESSION: 1. No CT evidence of an acute intracranial abnormality. 2. No maxillofacial bone fracture. Referred By: Interpreted By: Mohamud Stubbs MD, 11/28/2024 2:02 AM Narrative 11/28/2024 2:06 AM CDT [facility] [address] [place], [place] [address] EXAMINATION: CT HEAD WO CON, CT FACIAL [...] Procedure Note Mohamud Stubbs MD - 11/28/2024 [facility] [address] [place], [place] [address] EXAMINATION: CT HEAD WO CON, CT FACIAL [...] 2:02 AM Narrative 11/28/2024 2:06 AM CDT [address] [address] EXAMINATION: CT HEAD WO CON, CT FACIAL [...] Procedure Note Mohamud Stubbs MD - 11/28/[address] [address] EXAMINATION: CT HEAD WO CON, CT FACIAL [...] maxillofacial bone fracture. Referred By: Interpreted By: Mohmaud Stubbs MD, 11/28/2024 2:02 AM Anival Tolbert DO CT Final Resul t * (ABNORMAL) HAPTOGLOBIN, QUANT (11/27/2024 8:45 AM CDT) HAPTOGLOBIN <7.8(L) 30.0 - 200.0 MG/DL 11/27/2024 9:40 AM CDT [facility] 11/27/2024 8:45 AM CDT Anival Tolbert DO LABORATORY Final Resul t [facility] [address] [place] [address], [place] [phone] * (ABNORMAL) LDH, LACTATE DEHYDROGENASE (11/27/2024 8:45 AM CDT) LDH 279(H) 87 - 241 UNITS/L 11/27/2024 1:28 PM CDT [facility] 11/27/2024 8:45 AM CDT us Anival Tolbert DO LABORATORY Final Resul t [facility] [address] [place] [address], from Last 3 Months Insurance BLUE [employer] MEDICAID Member Subscriber Plan / Payer (Ef fective 2024-Present) Name:Johnny Simon Relation to Subscriber:Self Name:Johnny Simon Payer ID:Not on file Group ID:[id number] Type:Not on file Address: [place] [id number] Advance Directives * Full Code (Latest Code [...] 11:13 PM 10/04/2024 4:31 PM Care Teams Mail Processor Relationship Specialty Start Date End Date None, Provider, MD PCP - General UNKNOWN PHYSICIAN SPECIALTY 09/28/24 Braeden Somers MD [address] [place] [address] Medical Oncologist HEMATOLOGY/ONCOLOGY 12/07/24 6
--- OUTSIDE RECORDS SUMMARY | 2025-02-24 14:08 | XMS_ITS | Encounter Summary ---
Author Organization [facility] Address [address] [place] [address] Care Team Providers Care Vat House Supervisor Name Role Phone Ray Sainz MD Unavailable [phone] Gordo Herrera MD Unavailable [phone] Miscellaneous, Not In File Unavailable Unava ilable Laurent Gonzalez MD Primary Care Provider [phone] Mariam Hedrick Unavailable Unavailable Ning Lowery DNP Unavailable [phone] Ana Duran RN Unavailable [phone] Areli Zuniga Unavailable Unavailable Ning Lowery DNP Unavailable [phone] Tobin Terrell MD Unavailable [phone] Encounter Details Date Type Department Care Team (Late st Contact Info) Description 08/02/2024 [facility] Sickle Cell CHW Initial Eligibility Review [facility] Sickle Cell Disease Community Health Worker [address] [place] [phone] Divya Wallace Social History Tobacco Use Types Packs/Day Years Used Date Smoking Tobacco: Never Smokeless Tobacco: Never Alcohol Use Standard Drinks/Week Comments Not Currently 0 (1 standard drink = 0.6 oz pur e alcohol) [facility] Utilities Answer Date Recorded In the past 12 months has [employer], gas, oil, or water [employer] threatened to shut off services in your home? No 07/26/2024 Social Connection and Isolation Panel Answer Date Recorded In a typical week, how many times do you talk on the phone with family, friends, or neighbors? Never 07/26/2024 How often do you get together with friends or re latives? Never 07/26/2024 How often do you attend restorationist or catholic serv ices? Never 07/26/2024 Do you belong to any clubs o r organizations such as restorationist groups, unions, fraternal or athletic groups, or [...] place to sleep or slept in a usp (including now)? No 09/01/2023 Housing Stability Vital [...] living in a usp (including now)? No 07/26/2024 Personal Safety Answer Date Recorded Have you ever been in or are you currently in a harmful physical or emotional relationship or is someone making you feel afraid or unsafe? 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[employer] Gender Identity Male 12/06/2024 9:44 PM CDT [...] documented as of this encounter Care Teams Vat House Supervisor Relationship Specialty Start Date End Date Laurent Gonzalez MD [address] [place] [address] PCP - General Hematology and Oncology 10/18/23 Ray Sainz MD [address] [facility] [address] [place] [address] 02/10/20 [place] [address] [facility] [address] [place] [address] Consulting Physician Family Medicine 05/05/22 Miscellaneous, Not In File 12/14/22 Mariam Hedrick Outpatient [employer] Clerk 05/31/24 08/15/24 Ning Lowery DNP [address] [facility] [address] [place] [address] Nurse Practitioner Internal Medicine 05/31/24 08/15/24 Ana Duran, RN [address] [facility] [address] [place] [address] SHOP Outpatient [employer] Clerk 07/29/24 08/02/24 Areli Zuniga Outpatient [employer] Clerk 08/16/24 09/23/24 Ning Lowery DNP [address] [facility] [address] [place] [address] Nurse Practitioner Internal Medicine 08/16/24 09/23/24 [place] [address] [facility] [address] [place] [address] Consulting Physician Orthopedic Surgery 08/18/24 documented as of this encounter
--- OUTSIDE RECORDS SUMMARY | 2025-02-24 14:08 | XMS_ITS | Encounter Summary ---
Author Organization [facility] Healthcare Address [address] [place] [address] Care Team Providers Care Industry Segment Specialist Name Role Phone Ray Sainz MD Unavailable [phone] Gordo Herrera MD Unavailable [phone] Miscellaneous, Not In File Unavailable Unava ilable Laurent Gonzalez MD Primary Care Provider [phone] Mariam Hedrick Unavailable Unavailable Ning Lowery DNP Unavailable [phone] Ana Duran RN Unavailable [phone] Areli Zuniga Unavailable Unavailable Ning Lowery DNP Unavailable [phone] Tobin Terrell MD Unavailable [phone] Encounter Details Date Type Department Care Team (Late st Contact Info) Description 05/15/2024 Documentation [facility] Main [address] [address] Forrest Domínguez, BOUCHRA Social History Tobacco Use Types Packs/Day Years Used Date Smoking Tobacco: Never Smokeless Tobacco: Never Alcohol Use Standard Drinks/Week Comments Not Currently 0 (1 standard drink = 0.6 oz pur e alcohol) [facility] Utilities Answer Date Recorded In the [...] often do you attend chur ch or congregation services? Never 05/13/2024 Do you belong to any clubs o r organizations such as temple groups, unions, fraternal or athletic groups, or [...] slept in a assisted (including now)? No 09/01/2023 Housing Stability Vital Sign Answer Samy e Recorded In the last 12 months, was t here a time when you were not able to pay the mortgage or rent on time? No 05/13/2024 In the past 12 months, how m any times have you moved where you were living? 0 05/13/2024 At any time in the past 12 m [facility], were you homeless or living in a assisted (including now)? No 05/13/2024 Personal Safety Answer Date Recorded Have you ever been in or are you currently in a harmful physical or emotional relationship or is someone making you feel afraid or unsafe? Denies 05/11/2024 Sex and Gender Information Value Date Recorded Sex Assigned at Not on file Legal Sex Male 10:50 AM [employer] Gender Identity Male 12/06/2024 9:44 PM CDT Sexual Orientation Straight 12/06/2024 9: 44 PM CDT documented as of this encounter Plan of Treatment Not on file documented as of this encounter Visit Diagnoses Not on filedocumented in this encounter Additional Health Concerns Infection Onset Date Last Indicated Resolved Time COVID: Suspected 05/29/2024 05/29/2024 05/29/2024 10:06 PM [employer] COVID: Suspected 07/24/2024 07/24/2024 07/24/2024 5:44 AM [employer] Norovirus suspected 07/24/2024 07/24/2024 07/30/19 3:05 AM [employer] C. difficile suspected 07/24/2024 07/24/202407/29 3:05 AM [employer] COVID: Suspected 08/13/2024 08/13/2024 08/13/2024 1:30 PM CDT COVID: Suspected 11/01/2024 11/01/2024 11/01/2024 2:39 PM CDT Ring Surveillance: C. auris 11/08/2024 11/08/2024 11/15/2024 7:26 PM CDT COVID: Suspected 12/23/2024 12/23/2024 12/23/2024 5:12 PM CDT COVID: Suspected 02/15/2025 02/15/2025 02/15/2025 2:26 PM CDT documented as of this encounter Care Teams Industry Segment Specialist Relationship Specialty Start Date End Date Laurent Gonzalez MD [address] [place] [address] PCP - General Hematology and Oncology 10/18/23 Ray Sainz MD [address] [facility] [address] [place] [address] 02/10/20 [place] [address] [address] [facility] [address] [place] [address] Consulting Physician Family Medicine 05/05/22 Miscellaneous, Not In File 12/14/22 Mariam Hedrick Outpatient Third Officer 05/31/24 08/15/24 Ning Lowery DNP [address] [address] [facility] [address] [place] [address] Nurse Practitioner Internal Medicine 05/31/24 08/15/24 Ana Duran, BOUCHRA [address] [facility] [address] [place] [address] [facility] Outpatient Third Officer 07/29/24 08/02/24 Areli Zuniga Outpatient Third Officer 08/16/24 09/23/24 Ning Lowery DNP [address] [facility] [address] [place] [address] Nurse Practitioner Internal Medicine 08/16/24 09/23/24 [place] [address] [address] Consulting Physician Orthopedic Surgery 08/18/24 documented as of this encounter
--- OUTSIDE RECORDS SUMMARY | 2025-02-24 14:08 | XMS_ITS | Encounter Summary ---
Author Organization [facility] Address [address] [facility] [place] [address] Care Team Providers Care Grid Caster Name Role Phone Nina Hines APRN-MACHINE SETTER [employer]ATIC Primary Care Provider + Given, None Primary Care Provider Laurent Noel MD Primary Care Provider [phone] Reason for Visit * Reason Onset Date Comments MEDICATION REFILL 07/16/2023 Encounter Details Date Type Department Care Team (Late st Contact Info) Description 07/16/2023 Refill [facility] - Internal Medicine [address] , [address] [address] Nina Hines, GASTON-[employer] [address] [address] MEDICATION REFILL Social History Tobacco [...] medical care, and heating? Patient declined 06/16/2023 [facility] [place] of Occupat ional Health - Occupational Stress [...] or slept in a usp (including now)? 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 Male 5:02 AM [employer]ACHINE [employer] HEL[employer] Gender Identity Not on file Sexual Orientation Not on file documented as of this encounter Functional Status * Is person deaf or have serious hearing difficulty? Answer Date of Assessment Author No 06/16/2023 2:45 PM Rahda Arzate RN * Is person blind or have serious difficulty seeing? Answer Date of Assessment Author No 06/16/2023 2:45 PM Radha Arzate RN * Does person have serious difficulty walking/climbing stairs? Answer Date of Assessment Author No 06/16/2023 2:45 PM Radha Arzate RN * Does person have difficulty dressing/bathing? Answer Date of Assessment Author No 06/16/2023 2:45 PM MACHINE B[employer]ER [employer] CE[employer] HELPER Redshaw, Radha K, RN * Does person have difficulty doing errands alone? Answer Date of Assessment Author No 06/16/2023 2:45 PM Radha Arzate RN documented as of this encounter Mental Status * Does person have difficulty concentrating/remembering/making decisions? Answer Entry Date Author No 06/16/2023 2:45 PM Radha Arazte RN documented in this encounter Plan of [...] Under Investigation 05/15/2024 05/15/2024 05/16/2024 3:26 AM MACHINE [employer] HELPER COVID-19 Under Investigation 06/30/2024 06/30/2024 06/30/2024 7:12 PM MACHINE B[employer]ER AND CE[employer]ER HELPER documented as of this encounter Care Teams Grid Caster Relationship Specialty Start Date End Date Nina Hines, GASTON[employer] [address] [address] PCP - General Nurse Practitioner 07/16/23 08/26/23 Given, None PCP - General 09/28/23 01/14/24 Laurent Gonzalez MD [address] [place] [address] PCP - General Hematology 01/15/24 documented as of this encounter
--- OUTSIDE RECORDS SUMMARY | 2025-02-24 14:08 | XMS_ITS | Clinical Summary ---
Author Organization [facility] Address [address] [place] [address] Care Team Providers Care Author'S Agent Name Role Phone Ray Sainz MD Unavailable [phone] Gordo Herrera MD Unavailable Miscellaneous, Not In File Unavailable Unava ilable Laurent Gonzalez MD Primary Care Provider [phone] Tobin Terrell MD Unavailable [phone] Allergies Active Allergy Reactions Criticality Noted [...] hours for 10 days 60 tablet 024 2024 Discontinued(S top Taking at Discharge) oxyCODONE (ROXICODONE) 20 mg tabletIndications :Pain Take 1 tablet (20 mg total) by mouth 4 (four) times a day as needed for pain for up to 5 days 12 tablet 024 2024 Discontinued(S top Taking at Discharge) oxyCODONE (ROXICODONE) 20 mg tablet Take 1 tablet (20 mg total) by mouth every 4 (four) hours for 4 days 24 tablet 024 2024 Discontinued(S top Taking at Discharge) oxyCODONE (ROXICODONE) 5 mg immediate release tabletIndications :Pain Take 2 tablets (10 mg total) by mouth every 4 (four) hours as needed for pain for up to 1 day 12 tablet 024 2024 Discontinued(S top Taking at Discharge) folic acid (FOLVITE) 1 mg tabletIndications :To prevent folic acid deficiency sickle cell disease Take 1 tablet (1 mg total) by mouth daily 30 tablet 1 07/172024 Discontinued albuterol HFA (PROVENTIL HFA,VENTOLIN HFA,PROAIR HFA) 90 mcg/actuation inhalerIndication s:Bronchospasm Prevention Inhale 2 puffs every 6 (six) hours as needed for wheezing or shortness of breath 1 each 1 2024 Discontinued(S top Taking at Discharge) naloxone (NARCAN) 4 mg/actuation spray,non-aerosol Indications:Opiat e-Induced Respiratory Depression,Opioid Toxicity,risk mitigation for opioid overdose Administer 1 spray into affected nostril(s) as needed for opioid reversal or respiratory depression Call 911. Administer a single spray in one nostril. Repeat every 3 minutes as needed if no or minimal response. 3 each 2 2024 Discontinued(S top Taking at Discharge) diphenhydrAMINE (BENADRYL) 25 mg capsule Take 1 tablet/capsule (25 mg total) by mouth 4 (four) times a day as needed for itching or allergies 2024 Discontinued(S top Taking at Discharge) hydrocortisone (CORTEF) 10 mg tablet Take 1 tablet (10 mg total) by mouth daily 30 tablet 2024 Discontinued(S top Taking at Discharge) hydrocortisone (CORTEF) 5 mg tablet Take 1 tablet (5 mg total) by mouth nightly 30 tablet 2024 Discontinued(S top Taking at Discharge) ondansetron ODT (ZOFRAN-ODT) 4 [...] (twelve) hours for 5 days 10 tablet 2024 Discontinued(S top Taking at Discharge) polyethylene glycol (MIRALAX) 17 gram packetIndications :constipation Take 1 packet (17 g total) by mouth daily as needed for constipation 2024 Discontinued(S top Taking at Discharge) Active Problems Problem Noted Date Diagnosed Date [...] Monitor Assessment & Plan (07/24/2024 3:17 AM DRYWALL MECHANIC): Repleted by ER Monitor Sickle-cell crisis 05/11/2024 Assessment & Plan (07/24/2024 3:19 AM DRYWALL MECHANIC): Patient presenting with pain in the back, [...] - Patient requesting dilaudid pushes instead of BALLOON SANDER - Changed to dilaudid 2 mg q3hr [...] still. 12/26 pt now refusing with anesthesia 2/ fear of risks of sedation and wants to try again with premeds. 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 Consideration [...] 05/25/2023 Assessment & Plan (05/27/2023 5:37 PM DRYWALL MECHANIC): Prior MD noted him refusing lab draws and all meds except opioids, similar to last admission. Also documented non-compliance with recommended outpatient hematology f/u and methadone dosing. Mouth pain 05/01/2023 Assessment & Plan (05/01/2023 5:35 PM DRYWALL MECHANIC): No lesion or signs of infxn seen. He will need to arrange outpatient dental f/u. - viscous lidocaine prn Insomnia 02/07/2023 Assessment & Plan (02/09/2023 2:08 PM CDT): - ramelteon not effective, trial of trazodone on 02/07 Acute on chronic pain 01/30/2023 Assessment & Plan (05/31/2023 1:59 PM DRYWALL MECHANIC): P/w complaints of acute on chronic pain. [...] admission would be 48h of IV Dilaudid BALLOON SANDER. He demanded that IV pushes of dilaudid be used instead. This request was refused. -IV Dilaudid BALLOON SANDER 1mg q15min. Discharge later today. -Scheduled tylenol [...] Started on bowel regimen. - Continue dilaudid BALLOON SANDER 2mg q20 min. Weaned dPCA 2mg to q30 min on 02/09. Added ketorolac (02/08). Added percocet 10 q6 h and lidocaine patches to chest (refused) on 02/09. Added Ibuprofen on 02/10. Weaned dPCA to 1mg q30 min. Pain improved. - Continue methadone 5mg BID. - [facility] wants to eventually restart Hydrea, but will [...] dizziness. He was initially established with [facility], saw Dr. Gonzalez once since his transition to adult care then was following intermittently at [facility] given proximity to his place. There was concern by his child protective services specialist Dr. Bryon marquis: opioid use disorder, having [...] conflict and refused to continue care at [facility]. -He has been hospitalized near continuously for the last 2 months. -Hematology and pain team consulted, discussed pain management w/ them -Pain regimen: on 12/21- continue scheduled Tylenol 1 g q.6 hours, switch Oxy 30 mg to q.4 hours instead of p.r.n., added IV toradol 15 g q6hrs and switched his IV dilaudid to BALLOON SANDER (0.2 mg q15 mins) to prevent the euphoric effect. BALLOON SANDER to 0.5 Q20 on 12/22. Discussed with pt no further uptitrations of BALLOON SANDER. Some mild somnolence noted 12/23. Starting lidocaine infusion on 12/24 -Ongoing concerns for pain seeking behavior. Pain should be controlled within few days on the BALLOON SANDER or lido gtt then switched to po regimen. Pt agreed to hard deadline of 12/25 for start weaning of the BALLOON SANDER and scheduled oxycodone. - 12/25 weaned off BALLOON SANDER. Regimen changed to oxycodone Q4+APAP 650 Q4. [...] appointment Assessment & Plan (05/29/2023 3:54 PM DRYWALL MECHANIC): Hgb at baseline on admission. No chest pain or shortness of breath to suggest acute chest. Continue folic acid. Per chart review, hydroxyurea was discontinued. Has missed appointments to get crizanlizumab infusion. -He plans to F/U with [facility] later this month Assessment & Plan (05/06/2023 1:09 PM DRYWALL MECHANIC): Pt presents with acute on chronic pain [...] taken for days - had started dilaudid BALLOON SANDER at outpatient heme recommendation, pt with unrelenting [...] outpatient heme note would not recommend cont BALLOON SANDER past 5-6 days, may need pain consult if unable to be weaned for consideration of lidocaine gtt which is not available at [facility] - Hgb has slowly decreased [...] regimen (oxycodone) - Home folic acid - BALLOON SANDER at 0.5mg IV, lockout q15m, 1h limit 2.0mg; telemetry with pulse ox while on BALLOON SANDER. Transitioned to IV pushes instead of BALLOON SANDER, 2 mg Q3 hours . - Given prior history of inappropriate refusal to wean and per hematology recommendations previously, would look to wean off BALLOON SANDER by day 3-4 as clinically appropriate and recommend to avoid continuing BALLOON SANDER beyond 5-6 days with consideration of lidocaine [...] hips/back/long bones/joints including feet. Recently hospitalized at [facility] in [place]. Notes dehydration related to GI losses. Admitted for fluids, pain control. - S/p BALLOON SANDER - On 09/01, he is agreeable to transitioning off BALLOON SANDER to Dilaudid now at 0.5 mg IV q4h PRN alternating with oxy-APAP 10-325 q4h PRN - Continue on scheduled oxycodone to 15 mg Q4 hours - Increase Gabapentin to 300 mg TID, continue flexeril 10 mg TID and start on amitriptyline 10 mg daily (uptitrate as needed), meloxicam daily. - LR 75 cc/h - Folic acid - Has had concerning behavior in [facility] sickle cell clinic previously, no longer will be seeing his prior child protective services specialist Dr. Hernandez - Hematology consulted: He has [...] Reviewed PDMP: On 08/22 on discharge from [facility] by Dr. Shannon Russell received oxycodone 10 mg #30 tablets and Percocet 10-325 mg #90 tablets. 09/11/23- Hb 6.6, Ordered 1PRBC Assessment & Plan (01/16/2023 4:40 PM CDT): Keep child protective services specialist apt on 01/29/23. Emergency room today for Sickle Cell Crisis pain relief. 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 Fired from prior child protective services specialist due to pain seeking behaviors -percocet 10 q6 hours prn for pain. Dilaudid second line Gastroesophageal reflux disease 06/23/2022 Avascular necrosis of bone of hip, left 05/30/19 Chest pain in adult 05/12/2022 Shortness of [...] imodium, bentyl - Seen by gastrotenerologist at [facility], recommended outpatient follow up & colonoscopy; no need to pursue inpatient based on findings/data thus far Assessment & Plan (09/02/2022 3:18 PM CDT): C diff negative, stool cultures negative Assessment & Plan (09/01/2022 10:39 AM CDT): Pending stool culture and cdiff Black stools 05/12/2022 Dysuria 05/12/2022 Hypokalemia 05/12/2022 Assessment & Plan (07/24/2024 3:17 AM DRYWALL MECHANIC): Repleted by ER Monitor Assessment & Plan [...] complication Assessment & Plan (04/27/2023 1:33 AM DRYWALL MECHANIC): No c/f exacerbation -cont albuterol PRN Assessment [...] Date Resolved Date Abnormal urinalysis 12/17/2023 12/21/19 Assessment & Plan (12/18/2023 2:21 PM CDT): [...] Department Care Team Description 02/16/2025 Orders Only [facility] Medicine Hematology [address] [place] [phone] Enio Chandra RN Sickle cell disease with crisis (HCC) (Primary Dx) 02/15/2025 10:49 AM CDT - 02/24/2025 12:10 PM CDT Hospital Encounter [place] [address] [address] [place] [address] Forrest Mason MD Mahasneh, Omar Ali Mohammed, MD Mustafa, Saim, DO Okeke, Danay Henry MD Vasoocclusive sickle cell crisis (HCC) (Primary Dx); Urine retention; Thrombocytopenia Discharge Disposition: Discharge to home or self care 02/14/2025 3:45 PM CDT Office Visit [facility] Medicine Hematology [address] [place] [phone] 02/14/2025 3:00 PM CDT Lab [facility] Cancer [place] - Lab Collection [address] [place] [id number] Sickle cell disease with crisis (HCC) 02/14/2025 2:45 PM CDT Lab [facility] Medicine Oncology Lab [address] [place] [phone] 02/14/2025 Telephone [facility] Medicine Hematology [address] [place] [address] [phone] Antonina High 01/21/2025 Orders Only [facility] Scanning, Provider 01/19/2025 Orders Only [facility] Scanning, Provider 01/18/2025 10:54 PM CDT - 01/19/2025 12:13 AM CDT Emergency [facility] Emergency Department [address] [place] [address] Abena Diego MD Malingering (Primary Dx); H/O sickle cell disease Discharge Disposition: Discharge to home or self care 01/01/2025 12:47 AM CDT - 01/18/2025 1:24 PM CDT Hospital Encounter [facility] 5 Med Surg [address] [place] [address] Bill Carrasquillo DO Medavaram, Atul, MD Kruse, DO Radha Ledbetter Kevin, DO Chowdhury, Farhanaz, MD Lopez, Manuel Emilio, MD Acute sickle cell crisis (HCC) (Primary Dx) Discharge Disposition: Discharge to home or self care 12/23/2024 2:02 PM CDT - 12/23/2024 8:39 PM CDT Emergency [facility] Emergency Department [address] [place] [phone] Elijah Ramirez MD 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) Discharge Disposition: Discharge to home or self care 12/22/2024 12:38 PM CDT - 12/22/2024 5:06 PM CDT Emergency [facility] Emergency Department [address] [place] [address] 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 Never 12/08/2024 Do you belong to any clubs o r organizations such as adventist groups, unions, fraternal or athletic groups, or [...] a senior living (including now)? No 09/01/2023 PHQ-9 Answer Date [...] any time in the past 12 m [facility], were you homeless or living in a senior living (including now)? No 12/08/2024 Social Connection and Isolation Panel Answer Date Recorded In a typical week, how many times do you talk on the phone with family, friends, or neighbors? Patient declined 02/16/2025 How often do you get togethe r with friends or relatives? Patient declined 02/16/2025 How often do you attend adventist or alevism serv ices? Never 02/16/2025 Do you belong to any clubs o r organizations such as adventist groups, unions, fraternal or athletic groups, or [...] any time in the past 12 m [facility], were you homeless or living in a senior living (including now)? No 02/16/2025 [facility] Utilities Answer Date Recorded In the [...] on file Legal Sex Male 10:50 AM DRYWALL MECHANIC Gender Identity Male 12/06/2024 9:44 PM [...] was last reviewed 2021. Testing performed by: [facility], [address] [place] [address]., [address] Blood 02/21/2025 2:14 PM CDT 02/21/2025 2:29 PM CDT Deana HO LAB BLOOD ORDERABLES Final Re sult [facility] [address] [facility] Department [place] [address] * (ABNORMAL) Differential, auto (02/21/2025 2:14 PM CDT) Neutrophil abs 5.30 1.50 - 6.50 K/cumm Comment:Testing performed by : [address] [address] Imm gran abs 0.03 0.00 - 0.10 K/cumm [facility] Comment:Testing performed by : [address] [address] Lymphocyte abs 2.98 0.80 - 3.30 K/cumm [facility] Comment:Testing performed by : [address] [address] Monocyte abs 1.17(H) 0.20 - 0.80 K/cumm [facility] Comment:Testing performed by : [address] [address] Eosinophil abs 0.15 0.00 - 0.50 K/cumm [facility] Comment:Testing performed by : [address] [address] Basophil abs 0.05 0.00 - 0.10 K/cumm [facility] Comment:Testing performed by : [address] [address] Neutrophil pct 54.8 % [facility] Comment: Interpretive Data Percent cell count reference ranges are not reported, since discordance with absolute values may lead to misinterpretation of CBC data. Current Interpretive Data was last revised on 2017. Testing performed by: [address] [address] Imm gran pct 0.3 % [facility] Comment: Interpretive Data Percent cell count reference ranges are not reported, since discordance with absolute values may lead to misinterpretation of CBC data. Current Interpretive Data was last revised on 2017. Testing performed by: [address] [address] Lymphocyte pct 30.8 % [facility] Comment: Interpretive Data Percent cell count reference ranges are not reported, since discordance with absolute values may lead to misinterpretation of CBC data. Current Interpretive Data was last revised on 2017. Testing performed by: [address] [address] Monocyte pct 12.1 % [facility] Comment: Interpretive Data Percent cell count reference ranges are not reported, since discordance with absolute values may lead to misinterpretation of CBC data. Current Interpretive Data was last revised on 2017. Testing performed by: [address] [address] Eosinophil pct 1.5 % [facility] Comment: Interpretive Data Percent cell count reference ranges are not reported, since discordance with absolute values may lead to misinterpretation of CBC data. Current Interpretive Data was last revised on 2017. Testing performed by: [address] [address] Basophil pct 0.5 % [facility] Comment: Interpretive Data Percent cell count reference ranges are not reported, since discordance with absolute values may lead to misinterpretation of CBC data. Current Interpretive Data was last revised on 2017. Testing performed by: [address] [address] Blood 02/21/2025 2:14 PM CDT 02/21/2025 2:29 PM CDT us Deana HO LAB BLOOD ORDERABLES Final Re sult [facility] [address] [facility] Department [place] [address] * (ABNORMAL) CBC with auto differential (02/21/2025 2:14 PM CDT) WBC 9.68 3.80 - 9.90 K/cumm Comment:Testing performed by : [address] [address] Hgb 8.5(L) 13.0 - 17.5 g/dL [facility] Comment:Testing performed by : [address] [address] Hct 24.1(L) 38.9 - 50.3 % [facility] Comment:Testing performed by : [address] [address] Plt 349 150 - 400 K/cumm [facility] Comment:Testing performed by : [address] [address] MPV 10.1 9.1 - 12.3 fL [facility] Comment:Testing performed by : [address], [address] RBC 2.65(L) 4.30 - 5.80 M/cumm [facility] Comment:Testing performed by : [address] [address] MCV 90.9 81.3 - 96.4 fL [facility] Comment:Testing performed by : [address] [address] MCH 32.1 27.1 - 33.3 pg [facility] Comment:Testing performed by : [address] [address] MCHC 35.3 32.3 - 35.7 g/dL [facility] Comment:Testing performed by : [address] [address] RDW CV 21.8(H) 11.1 - 14.9 % [facility] Comment:Testing performed by : [address], [address] RDW SD 72.1(H) 35.7 - 48.1 fL [facility] Comment:Testing performed by : [address], [address] NRBC abs 0.15(H) 0.00 - 0.01 K/cumm [facility] Comment:Testing performed by : [address] [address] Blood 02/21/2025 2:14 PM CDT 02/21/2025 2:29 PM CDT Deana Crandall PA LAB BLOOD ORDERABLES Final Re sult Performing Organization Address [facility] Co de Phone Number [address] [address] * (ABNORMAL) Reticulocyte Count (02/21/2025 2:14 PM CDT) Retics, absolute 369(H) 20 - 87 K/cumm Comment:Testing performed by : [address] [address] Retics 13.9(H) 0.4 - 2.9 % [facility] Comment:Testing performed by : [address] [address] Reticulocyte Hgb 31.6 30.5 - 38.0 pg [facility] Comment:Testing performed by : [address] [address] Blood 02/21/2025 2:14 PM CDT 02/21/2025 2:29 PM CDT Kassy George [employer] LAB BLOOD ORDERABLES Final Re sult Performing Organization Address [facility] de Phone Number [address] [address] * (ABNORMAL) Lactate dehydrogenase (LD) (02/21/2025 2:14 PM CDT) Lactate dehydrogenase (LDH) 407(H) 100 - 250 Units/L Comment:Testing performed by : [address] [address] Blood 02/21/2025 2:14 PM CDT 02/21/2025 2:29 PM CDT Ezequiel Carrizales MD LAB BLOOD ORDERABL ES Final Result [facility] [address] [facility] Department [place] [address] * (ABNORMAL) Comprehensive metabolic panel (02/21/2025 2:14 PM CDT) Sodium 137 135 - 145 mmol/L Comment:Testing performed by : [address] [address] Potassium, pl 3.3 3.3 - 4.9 mmol/L [facility] Comment:Testing performed by : [address] [address] Chloride 102 97 - 110 mmol/L [facility] Comment:Testing performed by : [address] [address] CO2 24 22 - 32 mmol/L [facility] Comment:Testing performed by : [address] [address] Anion gap 11 2 - 15 mmol/L [facility] Comment:Testing performed by : [address] [address] BUN 3(L) 6 - 25 mg/dL [facility] Comment:Testing performed by : [address] [address] Creatinine 0.40(L) 0.80 - 1.30 mg/dL [facility] Comment:Testing performed by : [address] [address] Glucose 94 70 - 199 mg/dL [facility] [...] was last revised 2022. Testing performed by: [address] [place]., [address] Calcium 8.7 8.5 - 10.3 mg/dL [facility] Comment:Testing performed by : [address] [address] Bilirubin, total 4.4(H) 0.1 - 1.2 mg/dL [facility] Comment:Testing performed by : [address] [address] Protein, pl 7.5 6.5 - 8.5 g/dL [facility] Comment:Testing performed by : [address] [address] Albumin 4.1 3.5 - 5.0 g/dL [facility] Comment:Testing performed by : [address] [address] Alk phos 276(H) 40 - 130 Units/L [facility] Comment:Testing performed by : [address] [address] ALT 26 7 - 55 Units/L [facility] Comment:Testing performed by : [address] [address] AST 36 10 - 50 Units/L [facility] Comment:Testing performed by : [address] [address] Blood 02/21/2025 2:14 PM CDT 02/21/2025 2:29 PM CDT Deana HO LAB BLOOD ORDERABLES Final Re sult [facility] [address] [facility] Department of Laboratories [place], [place] [id number] * eGFR (02/20/2025 6:47 PM CDT) eGFR [...] was last reviewed 2021. Testing performed by: [address] [address] Blood 02/20/2025 6:47 PM CDT 02/20/2025 6:56 PM CDT us Deana HO LAB BLOOD ORDERABLES Final Re sult Performing Organization Address City/[facility]/ZIP Co de Phone Number [facility] [address] [place] [address] * (ABNORMAL) Lactate dehydrogenase (LD) (02/20/2025 6:47 PM CDT) Lactate dehydrogenase (LDH) 401(H) 100 - 250 Units/L Comment:Testing performed by : [address] [address] Blood 02/20/2025 6:47 PM CDT 02/20/2025 6:56 PM CDT us Ezequiel Carrizales MD LAB BLOOD ORDERABL ES Final Result Performing Organization Address City/[facility]/ZIP Co de Phone Number KENYETTA[address] [place] [address] * (ABNORMAL) Comprehensive metabolic panel (02/20/2025 6:47 PM CDT) Sodium 139 135 - 145 mmol/L Comment:Testing performed by : [address] [address] Potassium, pl 3.5 3.3 - 4.9 mmol/L [facility] Comment:Testing performed by : [address] [address] Chloride 103 97 - 110 mmol/L [facility] Comment:Testing performed by : [address], [place]., [address] CO2 25 22 - 32 mmol/L [facility] Comment:Testing performed by : [address] [address] Anion gap 11 2 - 15 mmol/L [facility] Comment:Testing performed by : [address], [place]., [address] BUN 2(L) 6 - 25 mg/dL [facility] Comment:Testing performed by : [address], [place]., [address] Creatinine 0.44(L) 0.80 - 1.30 mg/dL [facility] Comment:Testing performed by : [address] [address] Glucose 99 70 - 199 mg/dL [facility] Comment: Interpretive Data Fasting glucose >/= [...] was last revised 2022. Testing performed by: [address] [address] Calcium 9.0 8.5 - 10.3 mg/dL [facility] Comment:Testing performed by : [address] [address] Bilirubin, total 4.5(H) 0.1 - 1.2 mg/dL [facility] Comment:Testing performed by : [address] [address] Protein, pl 7.4 6.5 - 8.5 g/dL [facility] Comment:Testing performed by : [address] [address] Albumin 4.2 3.5 - 5.0 g/dL [facility] Comment:Testing performed by : [address] [address] Alk phos 286(H) 40 - 130 Units/L [facility] Comment:Testing performed by : [address] [address] ALT 32 7 - 55 Units/L [facility] Comment:Testing performed by : [address] [address] AST 49 10 - 50 Units/L [facility] Comment:Testing performed by : [address] [address] Blood 02/20/2025 6:47 PM CDT 02/20/2025 6:56 PM CDT Deana HO LAB BLOOD ORDERABLES Final Re sult [facility] [address] [facility] Department of Laboratories [place], [place] [id number] * eGFR (02/18/2025 12:20 PM CDT) eGFR [...] was last reviewed 2021. Testing performed by: [address] [address] Blood 02/18/2025 12:2 0 PM CDT 02/18/2025 12:37 PM CDT us Deana HO LAB BLOOD ORDERABLES Final Re sult [facility] [facility] Department [place] [address] * (ABNORMAL) Differential, auto (02/18/2025 12:20 PM CDT) Neutrophil abs 5.20 1.50 - 6.50 K/cumm Comment:Testing performed by : [address] [address] Imm gran abs 0.06 0.00 - 0.10 K/cumm [facility] Comment:Testing performed by : [address] [address] Lymphocyte abs 3.74(H) 0.80 - 3.30 K/cumm [place] Comment:Testing performed by : [address] [address] Monocyte abs 1.06(H) 0.20 - 0.80 K/cumm [facility] Comment:Testing performed by : [address] [address] Eosinophil abs 0.41 0.00 - 0.50 K/cumm [facility] Comment:Testing performed by : [address] [address] Basophil abs 0.06 0.00 - 0.10 K/cumm [facility] Comment:Testing performed by : [address] [address] Neutrophil pct 49.3 % [facility] Comment: Interpretive Data Percent cell count reference ranges are not reported, since discordance with absolute values may lead to misinterpretation of CBC data. Current Interpretive Data was last revised on 2017. Testing performed by: [address] [address] Imm gran pct 0.6 % [facility] Comment: Interpretive Data Percent cell count reference ranges are not reported, since discordance with absolute values may lead to misinterpretation of CBC data. Current Interpretive Data was last revised on 2017. Testing performed by: [address] [address] Lymphocyte pct 35.5 % [facility] Comment: Interpretive Data Percent cell count reference ranges are not reported, since discordance with absolute values may lead to misinterpretation of CBC data. Current Interpretive Data was last revised on 2017. Testing performed by: [address] [address] Monocyte pct 10.1 % [facility] Comment: Interpretive Data Percent cell count reference ranges are not reported, since discordance with absolute values may lead to misinterpretation of CBC data. Current Interpretive Data was last revised on 2017. Testing performed by: [address] [address] Eosinophil pct 3.9 % [facility] Comment: Interpretive Data Percent cell count reference ranges are not reported, since discordance with absolute values may lead to misinterpretation of CBC data. Current Interpretive Data was last revised on 2017. Testing performed by: [address] [address] Basophil pct 0.6 % [facility] Comment: Interpretive Data Percent cell count reference ranges are not reported, since discordance with absolute values may lead to misinterpretation of CBC data. Current Interpretive Data was last revised on 2017. Testing performed by: [address] [address] Blood 02/18/2025 12:2 0 PM CDT 02/18/2025 12:37 PM CDT us Deana HO LAB BLOOD ORDERABLES Final Re sult [facility] [address] [facility] Department [place] [address] * (ABNORMAL) CBC with auto differential (02/18/2025 12:20 PM CDT) [facility] WBC 10.53(H) 3.80 - 9.90 K/cumm Comment:Testing performed by : [address] [address] Hgb 7.9(L) 13.0 - 17.5 g/dL [facility] Comment:Testing performed by : [address] [address] Hct 23.2(L) 38.9 - 50.3 % [facility] Comment:Testing performed by : [address], [address] Plt 297 150 - 400 K/cumm [facility] Comment:Testing performed by : [address], [address] MPV 9.9 9.1 - 12.3 fL [facility] Comment:Testing performed by : [address], [address] RBC 2.50(L) 4.30 - 5.80 M/cumm [facility] Comment:Testing performed by : [address] [address] MCV 92.8 81.3 - 96.4 fL [facility] Comment:Testing performed by : [address] [address] MCH 31.6 27.1 - 33.3 pg [facility] Comment:Testing performed by : [address], [address] MCHC 34.1 32.3 - 35.7 g/dL [facility] Comment:Testing performed by : [address], [address] RDW CV 23.6(H) 11.1 - 14.9 % [facility] Comment:Testing performed by : [address] [address] RDW SD 77.2(H) 35.7 - 48.1 fL [facility] Comment:Testing performed by : [address], [address] NRBC abs 0.21(H) 0.00 - 0.01 K/cumm [facility] Comment:Testing performed by : [address] [address] Blood 02/18/2025 12:2 0 PM CDT 02/18/2025 12:37 PM CDT Deana Crandall PA LAB BLOOD ORDERABLES Final Re sult Performing Organization Address [facility] Co de Phone Number [facility] [address] [facility] [place] [address] * (ABNORMAL) Reticulocyte Count (02/18/2025 12:20 PM CDT) [facility] Retics, absolute 457(H) 20 - 87 K/cumm Comment:Testing performed by : [address] [address] Retics 18.3(H) 0.4 - 2.9 % [facility] Comment:Testing performed by : [address] [address] Reticulocyte Hgb 35.1 30.5 - 38.0 pg [facility] Comment:Testing performed by : [address] [address] Blood 02/18/2025 12:2 0 PM CDT 02/18/2025 12:37 PM CDT Kassy George [employer] LAB BLOOD ORDERABLES Final Re sult Performing Organization Address [facility] Co de Phone Number [facility] [address] [facility] [place] [address] * (ABNORMAL) Lactate dehydrogenase (LD) (02/18/2025 12:20 PM CDT) Pathologist [facility] Lactate dehydrogenase (LDH) 443(H) 100 - 250 Units/L Comment:Testing performed by : [address] [address] Blood 02/18/2025 12:2 0 PM CDT 02/18/2025 12:37 PM CDT Ezequiel Carrizales MD LAB BLOOD ORDERABL ES Final Result [facility]JAN[facility] [address] [facility] Department [place] [address] * (ABNORMAL) Comprehensive metabolic panel (02/18/2025 12:20 PM CDT) Sodium 138 135 - 145 mmol/L Comment:Testing performed by : [address] [address] Potassium, pl 3.3 3.3 - 4.9 mmol/L [facility] Comment:Testing performed by : [address] [address] Chloride 103 97 - 110 mmol/L [facility] Comment:Testing performed by : [address] [address] CO2 24 22 - 32 mmol/L [facility] Comment:Testing performed by : [address] [address] Anion gap 11 2 - 15 mmol/L [facility] Comment:Testing performed by : [address] [address] BUN <2(L) 6 - 25 mg/dL [facility] Comment:Testing performed by : [address] [address] Creatinine 0.40(L) 0.80 - 1.30 mg/dL [facility] Comment:Testing performed by : [address] [address] Glucose 112 70 - 199 mg/dL [facility] [...] was last revised 2022. Testing performed by: [address] [address] Calcium 8.6 8.5 - 10.3 mg/dL [facility] Comment:Testing performed by : [address] [address] Bilirubin, total 4.9(H) 0.1 - 1.2 mg/dL [facility] Comment:Testing performed by : [address] [address] Protein, pl 6.9 6.5 - 8.5 g/dL [facility] Comment:Testing performed by : [address] [address] Albumin 4.0 3.5 - 5.0 g/dL [facility] Comment:Testing performed by : [address] [address] Alk phos 274(H) 40 - 130 Units/L [facility] Comment:Testing performed by : [address] [address] ALT 26 7 - 55 Units/L [facility] Comment:Testing performed by : [address] [address] AST 39 10 - 50 Units/L [facility] Comment:Testing performed by : [address] [address] Blood 02/18/2025 12:2 0 PM CDT 02/18/2025 12:37 PM CDT us Deana HO LAB BLOOD ORDERABLES Final Re sult [facility] SHETTY [address] [facility] Department of Laboratories [place], [place] [id number] * eGFR (02/17/2025 1:04 PM CDT) eGFR [...] was last reviewed 2021. Testing performed by: [address] [address] Blood 02/17/2025 1:04 PM CDT 02/17/2025 1:07 PM CDT us Deana HO LAB BLOOD ORDERABLES Final Re sult [facility] [address] [facility] Department [place] [address] * (ABNORMAL) Differential, auto (02/17/2025 1:04 PM CDT) Neutrophil abs 3.70 1.50 - 6.50 K/cumm Comment:Testing performed by : [address] [address] Imm gran abs 0.08 0.00 - 0.10 K/cumm [facility] SHETTY Comment:Testing performed by : [address] [address] Lymphocyte abs 3.71(H) 0.80 - 3.30 K/cumm [facility] SHETTY Comment:Testing performed by : [address] [address] Monocyte abs 1.31(H) 0.20 - 0.80 K/cumm [facility] SHETTY Comment:Testing performed by : [address] [address] Eosinophil abs 0.43 0.00 - 0.50 K/cumm [facility] Comment:Testing performed by : [address], [place]., [address] Basophil abs 0.07 0.00 - 0.10 K/cumm [facility] Comment:Testing performed by : [address] [address] Neutrophil pct 39.7 % [facility] Comment: Interpretive Data Percent cell count reference ranges are not reported, since discordance with absolute values may lead to misinterpretation of CBC data. Current Interpretive Data was last revised on 2017. Testing performed by: [address] [address] Imm gran pct 0.9 % [facility] Comment: Interpretive Data Percent cell count reference ranges are not reported, since discordance with absolute values may lead to misinterpretation of CBC data. Current Interpretive Data was last revised on 2017. Testing performed by: [address] [address] Lymphocyte pct 39.9 % [facility] Comment: Interpretive Data Percent cell count reference ranges are not reported, since discordance with absolute values may lead to misinterpretation of CBC data. Current Interpretive Data was last revised on 2017. Testing performed by: [address] [address] Monocyte pct 14.1 % [facility] Comment: Interpretive Data Percent cell count reference ranges are not reported, since discordance with absolute values may lead to misinterpretation of CBC data. Current Interpretive Data was last revised on 2017. Testing performed by: [address] [address] Eosinophil pct 4.6 % [facility] Comment: Interpretive Data Percent cell count reference ranges are not reported, since discordance with absolute values may lead to misinterpretation of CBC data. Current Interpretive Data was last revised on 2017. Testing performed by: [address] [address] Basophil pct 0.8 % [facility] Comment: Interpretive Data Percent cell count reference ranges are not reported, since discordance with absolute values may lead to misinterpretation of CBC data. Current Interpretive Data was last revised on 2017. Testing performed by: [address] [address] Blood 02/17/2025 1:04 PM CDT 02/17/2025 1:07 PM CDT Deana HO LAB BLOOD ORDERABLES Final Re sult Performing Organization Address City/[facility] Co de Phone Number [address] [place] [address] * Thyroid Function [place] (02/17/2025 1:04 PM CDT) TSH 3.82 0.30 - 4.20 mcIUnit/mL Comment:Testing performed by : [address] [address] Blood 02/17/2025 1:04 PM CDT 02/17/2025 1:07 PM CDT Ezequiel Carrizales MD LAB BLOOD ORDERABL ES Final Result Performing Organization Address [facility] Co de Phone Number [address] [address] * (ABNORMAL) CBC with auto differential (02/17/2025 1:04 PM CDT) WBC 9.30 3.80 - 9.90 K/cumm Comment:Testing performed by : [address] [address] Hgb 7.8(L) 13.0 - 17.5 g/dL [facility] SHETTY Comment:Testing performed by : [address] [address] Hct 22.7(L) 38.9 - 50.3 % [facility] Comment:Testing performed by : [address] [address] Plt 294 150 - 400 K/cumm [facility] Comment:Testing performed by : [address] [address] MPV 10.1 9.1 - 12.3 fL [facility] SHETTY Comment:Testing performed by : [address] [address] RBC 2.50(L) 4.30 - 5.80 M/cumm [facility] SHETTY Comment:Testing performed by : [address] [address] MCV 90.8 81.3 - 96.4 fL [facility] Comment:Testing performed by : [address], [address] MCH 31.2 27.1 - 33.3 pg [facility] SHETTY Comment:Testing performed by : [address] [address] MCHC 34.4 32.3 - 35.7 g/dL [facility] SHETTY Comment:Testing performed by : [address] [address] RDW CV 23.0(H) 11.1 - 14.9 % [facility] Comment:Testing performed by : [address], [address] RDW SD 73.4(H) 35.7 - 48.1 fL [facility] Comment:Testing performed by : [address] [address] NRBC abs 0.19(H) 0.00 - 0.01 K/cumm [facility] Comment:Testing performed by : [address] [address] Morphologic Screen Results confirmed by manual morphology review. [facility] Comment:Testing performed by : [address], [address] Blood 02/17/2025 1:04 PM CDT 02/17/2025 1:07 PM CDT us Deana HO LAB BLOOD ORDERABLES Final Re sult [place] [address] [facility] [place] [address] * (ABNORMAL) Reticulocyte Count (02/17/2025 1:04 PM CDT) Pathologist [facility] Retics, absolute 473(H) 20 - 87 K/cumm Comment: Retic verified by dilution. Testing performed by: [address] [address] Retics 18.9(H) 0.4 - 2.9 % [facility] Comment: Retic verified by dilution. Testing performed by: [address] [address] Reticulocyte Hgb 31.5 30.5 - 38.0 pg [facility] Comment:Testing performed by : [address] [address] Blood 02/17/2025 1:04 PM CDT 02/17/2025 1:07 PM CDT us Kassy George [employer] LAB BLOOD ORDERABLES Final Re sult [address] [place] [address] * (ABNORMAL) Comprehensive metabolic panel (02/17/2025 1:04 PM CDT) [facility] Sodium 139 135 - 145 mmol/L Comment:Testing performed by : [address] [address] Potassium, pl 3.8 3.3 - 4.9 mmol/L [facility] SHETTY Comment:Testing performed by : [address] [address] Chloride 104 97 - 110 mmol/L [facility] Comment:Testing performed by : [address] [address] CO2 24 22 - 32 mmol/L [facility] SHETTY Comment:Testing performed by : [address] [address] Anion gap 11 2 - 15 mmol/L [facility] SHETT[place] Comment:Testing performed by : [address] [address] BUN <2(L) 6 - 25 mg/dL [facility] Comment:Testing performed by : [address] [address] Creatinine 0.50(L) 0.80 - 1.30 mg/dL [facility] Comment:Testing performed by : [address] [address] Glucose 125 70 - 199 mg/dL [facility] [...] was last revised 2022. Testing performed by: [address] [address] Calcium 8.2(L) 8.5 - 10.3 mg/dL [facility] Comment:Testing performed by : [address] [address] Bilirubin, total 4.7(H) 0.1 - 1.2 mg/dL [facility] Comment:Testing performed by : [address] [address] Protein, pl 7.0 6.5 - 8.5 g/dL [facility] Comment:Testing performed by : [address] [address] Albumin 4.1 3.5 - 5.0 g/dL [facility] Comment:Testing performed by : [address] [address] Alk phos 261(H) 40 - 130 Units/L [facility] Comment:Testing performed by : [address] [address] ALT 31 7 - 55 Units/L [facility] Comment:Testing performed by : [address] [address] AST 52(H) 10 - 50 Units/L [facility] Comment:Testing performed by : [address] [address] Blood 02/17/2025 1:04 PM CDT 02/17/2025 1:07 PM CDT Deana HO LAB BLOOD ORDERABLES Final Re sult [facility] [address] [facility] Department [place] [address] * (ABNORMAL) Differential, auto (02/16/2025 10:46 AM CDT) Neutrophil abs 4.16 1.50 - 6.50 K/cumm Comment:Testing performed by : [address] [address] Imm gran abs 0.05 0.00 - 0.10 K/cumm [facility] Comment:Testing performed by : [address] [address] Lymphocyte abs 4.15(H) 0.80 - 3.30 K/cumm [facility] Comment:Testing performed by : [address] [address] Monocyte abs 1.13(H) 0.20 - 0.80 K/cumm [facility] Comment:Testing performed by : [address] [address] Eosinophil abs 0.41 0.00 - 0.50 K/cumm [facility] Comment:Testing performed by : [address] [address] Basophil abs 0.07 0.00 - 0.10 K/cumm [facility] Comment:Testing performed by : [address] [address] Neutrophil pct 41.8 % [facility] Comment: Interpretive Data Percent cell count reference ranges are not reported, since discordance with absolute values may lead to misinterpretation of CBC data. Current Interpretive Data was last revised on 2017. Testing performed by: [address] [address] Imm gran pct 0.5 % [facility] Comment: Interpretive Data Percent cell count reference ranges are not reported, since discordance with absolute values may lead to misinterpretation of CBC data. Current Interpretive Data was last revised on 2017. Testing performed by: [address] [address] Lymphocyte pct 41.6 % [facility] Comment: Interpretive Data Percent cell count reference ranges are not reported, since discordance with absolute values may lead to misinterpretation of CBC data. Current Interpretive Data was last revised on 2017. Testing performed by: [address] [address] Monocyte pct 11.3 % [facility] Comment: Interpretive Data Percent cell count reference ranges are not reported, since discordance with absolute values may lead to misinterpretation of CBC data. Current Interpretive Data was last revised on 2017. Testing performed by: [address] [address] Eosinophil pct 4.1 % [facility] Comment: Interpretive Data Percent cell count reference ranges are not reported, since discordance with absolute values may lead to misinterpretation of CBC data. Current Interpretive Data was last revised on 2017. Testing performed by: [address] [address] Basophil pct 0.7 % [facility] Comment: Interpretive Data Percent cell count reference ranges are not reported, since discordance with absolute values may lead to misinterpretation of CBC data. Current Interpretive Data was last revised on 2017. Testing performed by: [address] [address] Blood 02/16/2025 10:4 6 AM CDT 02/16/2025 10:56 AM CDT us Ezequiel Carrizales MD LAB BLOOD ORDERABL ES Final Result [facility] [address] [facility] Department [place] [address] * (ABNORMAL) CBC with auto differential (02/16/2025 10:46 AM CDT) [facility] WBC 9.97(H) 3.80 - 9.90 K/cumm Comment:Testing performed by : [address] [address] Hgb 7.8(L) 13.0 - 17.5 g/dL [facility] Comment:Testing performed by : [address] [address] Hct 23.0(L) 38.9 - 50.3 % [facility] Comment:Testing performed by : [address] [address] Plt 280 150 - 400 K/cumm [facility] Comment:Testing performed by : [address] [address] MPV 10.1 9.1 - 12.3 fL [facility] Comment:Testing performed by : [address], [address] RBC 2.50(L) 4.30 - 5.80 M/cumm [facility] Comment:Testing performed by : [address] [address] MCV 92.0 81.3 - 96.4 fL [facility] Comment:Testing performed by : [address] [address] MCH 31.2 27.1 - 33.3 pg CERALEJANDRA Comment:Testing performed by : [address], [address] MCHC 33.9 32.3 - 35.7 g/dL [facility] Comment:Testing performed by : [address], [address] RDW CV 22.7(H) 11.1 - 14.9 % [facility] Comment:Testing performed by : [address] [address] RDW SD 74.2(H) 35.7 - 48.1 fL [facility] Comment:Testing performed by : [address] [address] NRBC abs 0.13(H) 0.00 - 0.01 K/cumm [facility] Comment:Testing performed by : [address] [address] Morphologic Screen Results confirmed by manual morphology review. [facility] Comment:Testing performed by : [address] [address] Blood 02/16/2025 10:4 6 AM CDT 02/16/2025 10:56 AM CDT us Ezequiel Carrizales MD LAB BLOOD ORDERABL ES Edited Result - Final Performing Organization Address City/[facility]/ZIP Co de Phone Number [address] [place] [address] * (ABNORMAL) Reticulocyte Count (02/16/2025 10:46 AM CDT) Retics, absolute 278(H) 20 - 87 K/cumm Comment:Testing performed by : [address] [address] Retics 19.0(H) 0.4 - 2.9 % [facility] Comment:Testing performed by : [address] [address] Reticulocyte Hgb 29.4(L) 30.5 - 38.0 pg [facility] Comment:Testing performed by : [address] [address] Blood 02/16/2025 10:4 6 AM CDT 02/16/2025 10:56 AM CDT us Kassy George NP LAB BLOOD ORDERABLES Final Re sult KENYETTA[address] [place] [address] * Blood culture Blood (02/16/2025 10:02 AM CDT) Report Final Report: No growth Comment:Testing performed by : [facility], [address] [facility], [place]., [address] Blood 02/16/2025 10:0 2 AM CDT 02/16/2025 2:03 PM CDT Ruthy SHETTY - 02/20/2025 4:00 PM CDT From [...] characteristics have been verified by the [facility] Microbiology Laboratory. For questions about this culture, contact the Microbiology Laboratory at [phone]. Interpretive data was last revised on 24. Deana HO LAB MICROBIOLOGY - GENERAL OR DERABLES Final Result [facility] [address] [facility] Department [place] [address] * eGFR (02/16/2025 9:50 AM [...] was last reviewed 2021. Testing performed by: [facility], [address] [place] [address], [place]., [address] Blood 02/16/2025 9:50 AM CDT 02/16/2025 9:55 AM CDT Deana HO LAB BLOOD ORDERABLES Final Re sult [facility] [address] [facility] Department [place] [address] * Blood culture Blood (02/16/2025 9:50 AM CDT) Report Final Report: No growth Comment:Testing performed by : [facility], [address] [facility], [place]., [address] Blood 02/16/2025 9:50 AM CDT 02/16/2025 2:06 [...] characteristics have been verified by the [facility] Microbiology Laboratory. For questions about this culture, contact the Microbiology Laboratory at [phone]. Interpretive data was last revised on 24. Deana HO LAB MICROBIOLOGY - GENERAL OR DERABLES Final Result Performing Organization Address City/[facility] Co de Phone Number [address] [employer] [place] [address] * (ABNORMAL) Lactate dehydrogenase (LD) (02/16/2025 9:50 AM CDT) [facility] Lactate dehydrogenase (LDH) 464(H) 100 - 250 Units/L Comment: Hemolyzed; result may be falsely elevated Testing performed by: [address] [address] Blood 02/16/2025 9:50 AM CDT 02/16/2025 9:55 AM CDT Ezequeil Carrizales MD LAB BLOOD ORDERABL ES Final Result Performing Organization Address [facility] Co de Phone Number [address] [place] [address] * (ABNORMAL) Comprehensive metabolic panel (02/16/2025 9:50 AM CDT) [facility] Sodium 138 135 - 145 mmol/L Comment:Testing performed by : [address] [address] Potassium, pl 3.8 3.3 - 4.9 mmol/L [facility] Comment: Hemolyzed; Potassium value may be falsely elevated by as much as 1.0 mmol/L. Suggest redraw and reanalysis. Testing performed by: [address] [address] Chloride 104 97 - 110 mmol/L [facility] Comment:Testing performed by : [address], [place]., [address] CO2 23 22 - 32 mmol/L [facility] Comment:Testing performed by : [address] [address] Anion gap 11 2 - 15 mmol/L [facility] Comment:Testing performed by : [address], [place]., [address] BUN 2(L) 6 - 25 mg/dL [facility] Comment:Testing performed by : [address], [place]., [address] Creatinine 0.52(L) 0.80 - 1.30 mg/dL [facility] Comment:Testing performed by : [address] [address] Glucose 104 70 - 199 mg/dL [facility] [...] was last revised 2022. Testing performed by: [address] [address] Calcium 8.5 8.5 - 10.3 mg/dL [facility] Comment:Testing performed by : [address] [address] Bilirubin, total 5.6(H) 0.1 - 1.2 mg/dL [facility] Comment:Testing performed by : [address] [address] Protein, pl 6.7 6.5 - 8.5 g/dL [facility] SHETTY Comment:Testing performed by : [facility], [address] [place] [address]., [address] Albumin 3.9 3.5 - 5.0 g/dL [facility] Comment:Testing performed by : [address] [address] Alk phos 260(H) 40 - 130 Units/L [facility] Comment:Testing performed by : [address] [address] ALT 40 7 - 55 Units/L [facility] Comment:Testing performed by : [address] [address] AST 61(H) 10 - 50 Units/L [facility] Comment: Hemolyzed; result may be falsely elevated Testing performed by: [address] [address] Blood 02/16/2025 9:50 AM CDT 02/16/2025 9:55 AM CDT us Deana HO LAB BLOOD ORDERABLES Final Re sult [facility] [address] [facility] Department of Laboratories [place], [place] [id number] * CT Chest PE (CTA) Abdomen Pelvis [...] Anne Merchant M.D. FT: FT Report ID: [id number] Reading Location: [id number] Procedure Note Anne Hernandes MD - 02/15/2025 [...] Anne Merchant M.D. FT: FT Report ID: [id number] Reading Location: [place] [address] Deana Crandall PA IMG CT PROCEDURES Final Resul t * [...] was last reviewed 2021. Testing performed by: [address] [address] Blood 02/15/2025 3:53 PM CDT 02/15/2025 4:01 PM CDT Ezequiel Carrizales MD LAB BLOOD ORDERABL ES Final Result [facility] 2714 [facility] Department [place] [address] * (ABNORMAL) Comprehensive metabolic panel (02/15/2025 3:53 PM CDT) Sodium 142 135 - 145 mmol/L Comment:Testing performed by : [address] [address] Potassium, pl 3.0(L) 3.3 - 4.9 mmol/L [facility] Comment:Testing performed by : [address] [address] Chloride 106 97 - 110 mmol/L [facility] Comment:Testing performed by : [address] [address] CO2 24 22 - 32 mmol/L [facility] Comment:Testing performed by : [address] [address] Anion gap 12 2 - 15 mmol/L [place] Comment:Testing performed by : [address] [address] BUN 3(L) 6 - 25 mg/dL [place] Comment:Testing performed by : [address] [address] Creatinine 0.60(L) 0.80 - 1.30 mg/dL [facility] Comment:Testing performed by : [address] [address] Glucose 121 70 - 199 mg/dL [facility] [...] was last revised 2022. Testing performed by: [address] [address] Calcium 8.2(L) 8.5 - 10.3 mg/dL [facility] Comment:Testing performed by : [address] [address] Bilirubin, total 6.0(H) 0.1 - 1.2 mg/dL [facility] Comment:Testing performed by : [address] [address] Protein, pl 6.7 6.5 - 8.5 g/dL [facility] Comment:Testing performed by : [address] [address] Albumin 3.8 3.5 - 5.0 g/dL [facility] Comment:Testing performed by : [address] [address] Alk phos 261(H) 40 - 130 Units/L [place] Comment:Testing performed by : [address] [address] ALT 36 7 - 55 Units/L [place] Comment:Testing performed by : [address] [address] AST 48 10 - 50 Units/L [facility] Comment:Testing performed by : [address], [address] Blood 02/15/2025 3:53 PM CDT 02/15/2025 4:01 PM CDT Ezequiel Carrizales MD LAB BLOOD ORDERABL ES Final Result Performing Organization Address [facility] Co de Phone Number [address] [place] [address] * Sepsis Lactate w/ Reflex (02/15/2025 3:41 PM CDT) Pathologist [facility] Sepsis Lactate 1.4 0.7 - 2.0 mmol/L Comment:Testing performed by : [address], [address] Blood 02/15/2025 3:41 PM CDT 02/15/2025 3:59 PM CDT us Deana HO LAB BLOOD ORDERABLES Final Re sult Performing Organization Address [facility]/ZIP Co de Phone Number [address] [place] [address] * (ABNORMAL) Differential, auto (02/15/2025 2:20 PM CDT) Pathologist [facility] Neutrophil abs 6.11 1.50 - 6.50 K/cumm Comment:Testing performed by : [address] [address] Imm gran abs 0.03 0.00 - 0.10 K/cumm [facility] Comment:Testing performed by : [address] [address] Lymphocyte abs 4.59(H) 0.80 - 3.30 K/cumm [facility] Comment:Testing performed by : [address] [address] Monocyte abs 1.00(H) 0.20 - 0.80 K/cumm [facility] Comment:Testing performed by : [address], [place]., [address] Eosinophil abs 0.14 0.00 - 0.50 K/cumm [facility] Comment:Testing performed by : [address] [address] Basophil abs 0.05 0.00 - 0.10 K/cumm [facility] Comment:Testing performed by : [address] [address] Neutrophil pct 51.2 % [facility] Comment: Interpretive Data Percent cell count reference ranges are not reported, since discordance with absolute values may lead to misinterpretation of CBC data. Current Interpretive Data was last revised on 2017. Testing performed by: [address] [address] Imm gran pct 0.3 % [facility] Comment: Interpretive Data Percent cell count reference ranges are not reported, since discordance with absolute values may lead to misinterpretation of CBC data. Current Interpretive Data was last revised on 2017. Testing performed by: [address] [address] Lymphocyte pct 38.5 % [facility] Comment: Interpretive Data Percent cell count reference ranges are not reported, since discordance with absolute values may lead to misinterpretation of CBC data. Current Interpretive Data was last revised on 2017. Testing performed by: [address] [address] Monocyte pct 8.4 % [facility] Comment: Interpretive Data Percent cell count reference ranges are not reported, since discordance with absolute values may lead to misinterpretation of CBC data. Current Interpretive Data was last revised on 2017. Testing performed by: [address] [address] Eosinophil pct 1.2 % [facility] Comment: Interpretive Data Percent cell count reference ranges are not reported, since discordance with absolute values may lead to misinterpretation of CBC data. Current Interpretive Data was last revised on 2017. Testing performed by: [address] [address] Basophil pct 0.4 % [facility] Comment: Interpretive Data Percent cell count reference ranges are not reported, since discordance with absolute values may lead to misinterpretation of CBC data. Current Interpretive Data was last revised on 2017. Testing performed by: [address] [address] Blood 02/15/2025 2:20 PM CDT 02/15/2025 2:26 PM CDT Ezequiel Carrizales MD LAB BLOOD ORDERABL ES Final Result [facility] Department [place] [address] * (ABNORMAL) CBC with auto differential (02/15/2025 2:20 PM CDT) WBC 11.92(H) 3.80 - 9.90 K/cumm Comment:Testing performed by : [address] [address] Hgb 7.7(L) 13.0 - 17.5 g/dL [facility] Comment:Testing performed by : [address] [address] Hct 22.2(L) 38.9 - 50.3 % [facility] Comment:Testing performed by : [address] [address] Plt 292 150 - 400 K/cumm [facility] Comment:Testing performed by : [address] [address] MPV 10.0 9.1 - 12.3 fL [facility] Comment:Testing performed by : [address] [address] RBC 2.46(L) 4.30 - 5.80 M/cumm [facility] Comment:Testing performed by : [address] [address] MCV 90.2 81.3 - 96.4 fL [place] Comment:Testing performed by : [address] [address] MCH 31.3 27.1 - 33.3 pg [place] Comment:Testing performed by : [address] [address] MCHC 34.7 32.3 - 35.7 g/dL [place] Comment:Testing performed by : [address], [address] RDW CV 22.0(H) 11.1 - 14.9 % [facility] Comment:Testing performed by : [address], [address] RDW SD 71.7(H) 35.7 - 48.1 fL [place] Comment:Testing performed by : [address], [address] NRBC abs 0.09(H) 0.00 - 0.01 K/cumm [place] Comment:Testing performed by : [address] [address] Blood 02/15/2025 2:20 PM CDT 02/15/2025 2:26 PM CDT Ezequiel Carrizales MD LAB BLOOD ORDERABL ES Final Result [facility] [address] [facility] Department [place] [address] * Influenza A/B, RSV, and COVID-19 PCR Nasopharyngeal (02/15/2025 1:35 PM CDT) Pathologist [facility] COVID-19 RNA Negative Negative Comment:Testing performed by : [address], [address] Influenza A RNA Negative Negative [place] Comment:Testing performed by : [address] [address] Influenza B RNA Negative Negative [facility] Comment:Testing performed by : [address] [address] RSV RNA Negative Negative [facility] Comment: Interpretive data: Testing performed by [facility]. This test is performed using the [employer] Xpert Xpress CoV-2/Flu/RSV plus assay. This is a multiplex, real-time reverse transcriptase PCR assay intended for the qualitative detection of nucleic acid from SARS-CoV-2, influenza A, influenza B, and respiratory syncytial virus. This assay has been cleared by the [place] Food and Drug administration. The performance characteristics have been verified by the [facility]. Results must be considered in the clinical context, and a negative result does not rule out infection. Interpretive Data last revised 2023 Testing performed by: [address] [address] Nasopharyngeal 02/15/2025 1: 35 PM CDT 02/15/2025 1:43 PM CDT Narrative [facility] - 02/15/2025 2:25 PM CDT Is the Patient experiencing symptoms consistent with COVID?->Yes Deana HO LAB MICROBIOLOGY - GENERAL OR DERABLES Final Result Performing Organization Address City/State/[facility] Co de Phone Number [facility] [address] [facility] Department of Laboratories [place], [place] [id number] * ECG 12 lead (02/15/2025 1:13 PM CDT) Pathologist [facility] Ventricular Rate EKG/Min 82 BPM [facility] Atrial Rate 82 BPM [facility] ND-Interval (MSEC) 174 ms [facility] QRS-Interval (MSEC) 80 ms [facility] QT-Interval (MSEC) 404 ms [facility] QTc 472 ms [facility] P [place] 62 degrees [facility] R [place] 15 degrees [facility] T [place] 24 degrees [facility] Diagnosis Normal sinus rhythm Normal ECG When compared with ECG of 16-JAN-2025 14:47, Nonspecific T wave abnormality, improved in Inferior leads Nonspecific T wave abnormality no longer evident in Anterolateral leads Confirmed by KEVON BYRD M.D. ([id number]) on 02/15/2025 2:52:50 PM [facility] 02/15/2025 1:13 PM CDT 02/15/2025 2:52 PM CDT Deana HO ECG ORDERABLES Final Result [facility] * eGFR (02/14/2025 2:49 PM CDT) eGFR [...] LAB BLOOD ORDERABLES Final R esult [place] [facility] One [facility] Department [place] [address] * (ABNORMAL) Differential, auto (02/14/2025 2:49 PM CDT) Neutrophil abs 7.49(H) 1.50 - 6.50 K/cumm Comment:Testing performed by : [facility], [address] [place], [place] [id number] Lymphocyte abs 3.16 0.80 - 3.30 K/cumm [facility] Comment:Testing performed by : [facility], [address] [place], [place] [id number] Monocyte abs 1.08(H) 0.20 - 0.80 K/cumm [facility] Comment:Testing performed by : [facility], [address] [place], [place] [id number] Eosinophil abs 0.10 0.00 - 0.50 K/cumm [facility] Comment:Testing performed by : [facility], [address] [place], [place] [id number] Basophil abs 0.16(H) 0.00 - 0.10 K/cumm [facility] Comment:Testing performed by : [facility], [address] [place], [place] [id number] Neutrophil pct 62.5 % [facility] Comment: Interpretive Data Percent cell count reference ranges are not reported, since discordance with absolute values may lead to misinterpretation of CBC data. Current Interpretive Data was last revised on 2017. Testing performed by: [facility], [address] [place], [place] [id number] Lymphocyte pct 26.4 % [facility] Comment: Interpretive Data Percent cell count reference ranges are not reported, since discordance with absolute values may lead to misinterpretation of CBC data. Current Interpretive Data was last revised on 2017. Testing performed by: [facility], [address] [place], [place] [phone] Monocyte pct 9.0 % [facility] Comment: Interpretive Data Percent cell count reference ranges are not reported, since discordance with absolute values may lead to misinterpretation of CBC data. Current Interpretive Data was last revised on 2017. Testing performed by: [facility], [address] [place], [place] [id number] Eosinophil pct 0.9 % [facility] Comment: Interpretive Data Percent cell count reference ranges are not reported, since discordance with absolute values may lead to misinterpretation of CBC data. Current Interpretive Data was last revised on 2017. Testing performed by: [facility], [address] [place] [phone] Basophil pct 1.3 % [facility] Comment: Interpretive Data Percent cell count reference ranges are not reported, since discordance with absolute values may lead to misinterpretation of CBC data. Current Interpretive Data was last revised on 2017. Testing performed by: [facility], [address] [place] [phone] Blood 02/14/2025 2:49 PM CDT 02/14/2025 3:02 PM CDT us Laurent Gonzalez MD LAB BLOOD ORDERABLES Final R esult [facility] Department [place] [address] * (ABNORMAL) CBC with auto differential (02/14/2025 2:49 PM CDT) WBC 11.99(H) 3.80 - 9.90 K/cumm Comment:Testing performed by : [facility], [address] [place] [address] Hgb 9.2(L) 13.0 - 17.5 g/dL [facility] J[facility] Comment:Testing performed by : [facility], [address] [place] [address] Hct 26.5(L) 38.9 - 50.3 % [facility] Comment:Testing performed by : [facility], [address] [place] [address] Plt 341 150 - 400 K/cumm [facility] JUR[facility] Comment:Testing performed by : [facility], [address] [place] [address] MPV 8.5 6.8 - 10.4 fL [facility] Comment:Testing performed by : [facility], [address] [place] [address] RBC 2.86(L) 4.30 - 5.80 M/cumm [facility] Comment:Testing performed by : [facility], [address] [place] [address] MCV 92.6 81.3 - 96.4 fL [facility] [facility] Comment:Testing performed by : [facility], [address] [place] [address] MCH 32.0 27.1 - 33.3 pg [facility] Comment:Testing performed by : [facility], [address] [place] [address] MCHC 34.5 32.3 - 35.7 g/dL [place] [facility] Comment:Testing performed by : [facility], [address] [place] [address] RDW CV 24.7(H) 11.1 - 14.9 % [facility] Comment:Testing performed by : [facility], [address] [place] [address] NRBC abs 0.10(H) 0.00 - 0.01 K/cumm [facility] [facility] Comment:Testing performed by : [facility], [address] [place] [address] Blood 02/14/2025 2:49 PM CDT 02/14/2025 3:02 PM CDT Laurent Gonzalez MD LAB BLOOD ORDERABLES Final R esult [facility] Department of Laboratories [place], [place] [id number] * (ABNORMAL) Comprehensive metabolic panel (02/14/2025 2:49 PM CDT) Sodium 141 135 - 145 mmol/L Potassium, pl 3.3 3.3 - 4.9 mmol/L [facility] Chloride 106 97 - 110 mmol/L [facility] CO2 22 22 - 32 mmol/L [facility] Anion gap 13 2 - 15 mmol/L [facility] BUN 3(L) 6 - 25 mg/dL [facility] Creatinine 0.52(L) 0.80 - 1.30 mg/dL [facility] Glucose 121 70 - 199 mg/dL [facility] Comment: Interpretive Data Fasting glucose [...] 2022. Calcium 9.0 8.5 - 10.3 mg/dL [facility] Bilirubin, total 6.9(H) 0.1 - 1.2 mg/dL [facility] Protein, pl 8.2 6.5 - 8.5 g/dL [facility] Albumin 4.3 3.5 - 5.0 g/dL [facility] Alk phos 310(H) 40 - 130 Units/L [facility] ALT 51 7 - 55 Units/L [facility] AST 86(H) 10 - 50 Units/L [facility] Blood 02/14/2025 2:49 PM CDT 02/14/2025 3:06 PM CDT Laurent Gonzalez MD LAB BLOOD ORDERABLES Final R esult [facility] One [facility] Department [place] [address] * SCAN - RADIOLOGY/IMAGING (01/21/2025) Anatomical Region [...] was last reviewed 2021. Testing performed by: [address] [address] Blood 01/18/2025 6:14 AM CDT 01/18/2025 6:34 AM CDT us Rasta Garcia MD LAB BLOOD ORDERABLES Final Res ult [facility] [facility] Department [place] [address] * (ABNORMAL) Differential, auto (01/18/2025 6:14 AM CDT) Pathologist [facility] Neutrophil abs 5.66 1.50 - 6.50 K/cumm Comment:Testing performed by : [address] [address] Imm gran abs 0.06 0.00 - 0.10 K/cumm [facility] Comment:Testing performed by : [address] [address] Lymphocyte abs 4.21(H) 0.80 - 3.30 K/cumm [facility] Comment:Testing performed by : [address], [place]., [address] Monocyte abs 1.53(H) 0.20 - 0.80 K/cumm [facility] Comment:Testing performed by : [address], [place]., [address] Eosinophil abs 0.32 0.00 - 0.50 K/cumm [facility] Comment:Testing performed by : [address], [place]., [address] Basophil abs 0.06 0.00 - 0.10 K/cumm [facility] Comment:Testing performed by : [address] [address] Neutrophil pct 47.8 % [facility] Comment: Interpretive Data Percent cell count reference ranges are not reported, since discordance with absolute values may lead to misinterpretation of CBC data. Current Interpretive Data was last revised on 2017. Testing performed by: [address] [address] Imm gran pct 0.5 % [facility] Comment: Interpretive Data Percent cell count reference ranges are not reported, since discordance with absolute values may lead to misinterpretation of CBC data. Current Interpretive Data was last revised on 2017. Testing performed by: [address] [address] Lymphocyte pct 35.6 % [facility] Comment: Interpretive Data Percent cell count reference ranges are not reported, since discordance with absolute values may lead to misinterpretation of CBC data. Current Interpretive Data was last revised on 2017. Testing performed by: [address] [address] Monocyte pct 12.9 % [facility] Comment: Interpretive Data Percent cell count reference ranges are not reported, since discordance with absolute values may lead to misinterpretation of CBC data. Current Interpretive Data was last revised on 2017. Testing performed by: [address] [address] Eosinophil pct 2.7 % [facility] Comment: Interpretive Data Percent cell count reference ranges are not reported, since discordance with absolute values may lead to misinterpretation of CBC data. Current Interpretive Data was last revised on 2017. Testing performed by: [address] [address] Basophil pct 0.5 % [facility] Comment: Interpretive Data Percent cell count reference ranges are not reported, since discordance with absolute values may lead to misinterpretation of CBC data. Current Interpretive Data was last revised on 2017. Testing performed by: [address] [address] Blood 01/18/2025 6:14 AM CDT 01/18/2025 6:34 AM CDT us Rasta Garcia MD LAB BLOOD ORDERABLES Final Res ult [place] [facility] Department [place] [address] * (ABNORMAL) CBC with auto differential (01/18/2025 6:14 AM CDT) WBC 11.84(H) 3.80 - 9.90 K/cumm Comment:Testing performed by : [address] [address] Hgb 8.3(L) 13.0 - 17.5 g/dL [facility] Comment:Testing performed by : [address] [address] Hct 24.3(L) 38.9 - 50.3 % [facility] Comment:Testing performed by : [address] [address] Plt 302 150 - 400 K/cumm [facility] Comment:Testing performed by : [address] [address] MPV 9.9 9.1 - 12.3 fL [facility] Comment:Testing performed by : [address] [address] RBC 2.79(L) 4.30 - 5.80 M/cumm [facility] Comment:Testing performed by : [address] [address] MCV 87.1 81.3 - 96.4 fL [place] Comment:Testing performed by : [address], [address] MCH 29.7 27.1 - 33.3 pg [facility] [facility] Comment:Testing performed by : [address] [address] MCHC 34.2 32.3 - 35.7 g/dL [facility] [facility] Comment:Testing performed by : [address], [address] RDW CV 21.2(H) 11.1 - 14.9 % [facility] Comment:Testing performed by : [address], [address] RDW SD 66.2(H) 35.7 - 48.1 fL [facility] [facility] Comment:Testing performed by : [address], [address] NRBC abs 0.05(H) 0.00 - 0.01 K/cumm [facility] Comment:Testing performed by : [address], [address] Morphologic Screen Results confirmed by manual morphology review. [facility] Comment:Testing performed by : [address], [address] Blood 01/18/2025 6:14 AM CDT 01/18/2025 6:34 AM CDT Rasta Garcia MD LAB BLOOD ORDERABLES Edited Re sult - Final [facility] [address] [facility] Department [place] [address] * (ABNORMAL) Reticulocyte Count (01/18/2025 6:14 AM CDT) Retics, absolute 362(H) 20 - 87 K/cumm Comment:Testing performed by : [address], [address] Retics 12.5(H) 0.4 - 2.9 % [facility] [facility] Comment:Testing performed by : [address] [address] Reticulocyte Hgb 31.6 30.5 - 38.0 pg [place] Comment:Testing performed by : [address] [address] Blood 01/18/2025 6:14 AM CDT 01/18/2025 6:34 AM CDT us Rasta Garcia MD LAB BLOOD ORDERABLES Final Res ult [facility] [address] [facility] Department [place] [address] * (ABNORMAL) Basic metabolic panel (01/18/2025 6:14 AM CDT) Sodium 138 135 - 145 mmol/L Comment:Testing performed by : [address] [address] Potassium, pl 3.3 3.3 - 4.9 mmol/L [facility] Comment:Testing performed by : [address] [address] Chloride 101 97 - 110 mmol/L [place] Comment:Testing performed by : [address] [address] CO2 25 22 - 32 mmol/L [place] Comment:Testing performed by : [address] [address] Anion gap 12 2 - 15 mmol/L [facility] Comment:Testing performed by : [address] [address] BUN 4(L) 6 - 25 mg/dL [place] Comment:Testing performed by : [address] [address] Creatinine 0.61(L) 0.80 - 1.30 mg/dL [facility] Comment:Testing performed by : [address] [address] Glucose 105 70 - 199 mg/dL [facility] [...] was last revised 2022. Testing performed by: [facility], [address] [place] [address]., [address] Calcium 9.1 8.5 - 10.3 mg/dL [facility] [facility] Comment:Testing performed by : [facility], [address] [place] [address]., [address] Blood 01/18/2025 6:14 AM CDT 01/18/2025 6:34 AM CDT Rasta Garcia MD LAB BLOOD ORDERABLES Final Res ult [facility] [address] [facility] Department of Laboratories [place], [place] [id number] * eGFR (01/17/2025 6:04 AM CDT) eGFR [...] was last reviewed 2021. Testing performed by: [address] [address] Blood 01/17/2025 6:04 AM CDT 01/17/2025 6:35 AM CDT us Rasta Garcia MD LAB BLOOD ORDERABLES Final Res ult [facility] [address] [facility] Department [place] [address] * (ABNORMAL) Differential, auto (01/17/2025 6:04 AM CDT) Neutrophil abs 4.97 1.50 - 6.50 K/cumm Comment:Testing performed by : [address] [address] Imm gran abs 0.04 0.00 - 0.10 K/cumm [place] Comment:Testing performed by : [address] [address] Lymphocyte abs 3.73(H) 0.80 - 3.30 K/cumm [place] Comment:Testing performed by : [address] [address] Monocyte abs 1.04(H) 0.20 - 0.80 K/cumm [place] Comment:Testing performed by : [address] [address] Eosinophil abs 0.35 0.00 - 0.50 K/cumm [place] Comment:Testing performed by : [address] [address] Basophil abs 0.06 0.00 - 0.10 K/cumm [place] Comment:Testing performed by : [address] [address] Neutrophil pct 48.8 % [facility] Comment: Interpretive Data Percent cell count reference ranges are not reported, since discordance with absolute values may lead to misinterpretation of CBC data. Current Interpretive Data was last revised on 2017. Testing performed by: [address] [address] Imm gran pct 0.4 % [facility] Comment: Interpretive Data Percent cell count reference ranges are not reported, since discordance with absolute values may lead to misinterpretation of CBC data. Current Interpretive Data was last revised on 2017. Testing performed by: [address] [address] Lymphocyte pct 36.6 % [facility] Comment: Interpretive Data Percent cell count reference ranges are not reported, since discordance with absolute values may lead to misinterpretation of CBC data. Current Interpretive Data was last revised on 2017. Testing performed by: [address] [address] Monocyte pct 10.2 % [facility] Comment: Interpretive Data Percent cell count reference ranges are not reported, since discordance with absolute values may lead to misinterpretation of CBC data. Current Interpretive Data was last revised on 2017. Testing performed by: [address] [address] Eosinophil pct 3.4 % [facility] Comment: Interpretive Data Percent cell count reference ranges are not reported, since discordance with absolute values may lead to misinterpretation of CBC data. Current Interpretive Data was last revised on 2017. Testing performed by: [address] [address] Basophil pct 0.6 % [facility] Comment: Interpretive Data Percent cell count reference ranges are not reported, since discordance with absolute values may lead to misinterpretation of CBC data. Current Interpretive Data was last revised on 2017. Testing performed by: [address] [address] Blood 01/17/2025 6:04 AM CDT 01/17/2025 6:35 AM CDT us Rasta Garcia MD LAB BLOOD ORDERABLES Final Res ult [facility] [address] [facility] Department [place] [address] * (ABNORMAL) CBC with auto differential (01/17/2025 6:04 AM CDT) [facility] Signature WBC 10.19(H) 3.80 - 9.90 K/cumm Comment:Testing performed by : [address], [address] Hgb 8.3(L) 13.0 - 17.5 g/dL [facility] Comment:Testing performed by : [address], [address] Hct 24.0(L) 38.9 - 50.3 % [facility] Comment:Testing performed by : [address] [address] Plt 329 150 - 400 K/cumm [facility] Comment:Testing performed by : [address], [address] MPV 10.6 9.1 - 12.3 fL [facility] Comment:Testing performed by : [address], [address] RBC 2.77(L) 4.30 - 5.80 M/cumm [facility] Comment:Testing performed by : [address], [address] MCV 86.6 81.3 - 96.4 fL [facility] Comment:Testing performed by : [address], [address] MCH 30.0 27.1 - 33.3 pg [facility] Comment:Testing performed by : [address], [address] MCHC 34.6 32.3 - 35.7 g/dL [facility] Comment:Testing performed by : [address], [address] RDW CV 21.2(H) 11.1 - 14.9 % [facility] Comment:Testing performed by : [address], [address] RDW SD 66.2(H) 35.7 - 48.1 fL [facility] Comment:Testing performed by : [address], [address] NRBC abs 0.06(H) 0.00 - 0.01 K/cumm [facility] SHETTY Comment:Testing performed by : [address] [address] Morphologic Screen Results confirmed by manual morphology review. [facility] Comment:Testing performed by : [address] [address] Blood 01/17/2025 6:04 AM CDT 01/17/2025 6:35 AM CDT us Rasta Garcia MD LAB BLOOD ORDERABLES Edited Re sult - Final Performing Organization Address [facility] Co de Phone Number KENYETTAALEJANDRA [address] [place] [address] * (ABNORMAL) Reticulocyte Count (01/17/2025 6:04 AM CDT) Retics, absolute 468(H) 20 - 87 K/cumm Comment:Testing performed by : [address] [address] Retics 15.7(H) 0.4 - 2.9 % [facility] Comment:Testing performed by : [address] [address] Reticulocyte Hgb 30.0(L) 30.5 - 38.0 pg [facility] Comment:Testing performed by : [address] [address] Blood 01/17/2025 6:04 AM CDT 01/17/2025 6:35 AM CDT us Rasta Garcia MD LAB BLOOD ORDERABLES Final Res ult Performing Organization Address [facility] Co de Phone Number [facility] [address] [place] [address] * (ABNORMAL) Basic metabolic panel (01/17/2025 6:04 AM CDT) Sodium 137 135 - 145 mmol/L Comment:Testing performed by : [address] [address] Potassium, pl 3.1(L) 3.3 - 4.9 mmol/L [facility] Comment:Testing performed by : [address] [address] Chloride 101 97 - 110 mmol/L [facility] Comment:Testing performed by : [address] [address] CO2 24 22 - 32 mmol/L [facility] Comment:Testing performed by : [address] [address] Anion gap 12 2 - 15 mmol/L [facility] Comment:Testing performed by : [address] [address] BUN 3(L) 6 - 25 mg/dL [facility] Comment:Testing performed by : [address] [address] Creatinine 0.50(L) 0.80 - 1.30 mg/dL [facility] Comment:Testing performed by : [address] [address] Glucose 125 70 - 199 mg/dL [facility] Comment: Interpretive Data Fasting glucose >/= [...] was last revised 2022. Testing performed by: [address] [address] Calcium 8.9 8.5 - 10.3 mg/dL [facility] Comment:Testing performed by : [address] [address] Blood 01/17/2025 6:04 AM CDT 01/17/2025 6:35 AM CDT us Rasta Garcia MD LAB BLOOD ORDERABLES Final Res ult [place] [address] [place] [address] * Troponin T high-sensitivity 4-hour (01/16/2025 6:37 PM CDT) Trop T hs 13 <=22 ng/L Comment: Interpretive Data For further hscTnT resources including the diagnostic algorithm and an aid in interpretation, copy and paste this link: [email or web address]/show/[email or web address] Current Interpretive Data last revised 2020. Testing performed by: [address] [address] Trop T hs delta 7 ng/L [facility] SHETT[facility] Comment:Testing performed by : [address] [address] Trop T hs interp Equivocal [facility] Comment:Testing performed by : [address] [address] Blood 01/16/2025 6:37 PM CDT 01/16/2025 6:48 PM CDT Casey Paz MD LAB BLOOD ORDERABLES Final Result Performing Organization Address City/[facility] Co de Phone Number [facility] [address] [facility] [place] [address] * Troponin T high-sensitivity 2-hour (01/16/2025 5:09 PM CDT) Trop T hs <6 <=22 ng/L Comment: Interpretive Data For further hscTnT resources including the diagnostic algorithm and an aid in interpretation, copy and paste this link: [email or web address]://[email or web address].[email or web address]/show/[email or web address] Current Interpretive Data last revised 2020. Testing performed by: [address] [address] Trop T hs delta 0 ng/L [facility] SHE[facility] Comment:Testing performed by : [address] [address] Trop T hs interp Insignificant [facility] Comment:Testing performed by : [facility], [address] [place] [address]., [address] Blood 01/16/2025 5:09 PM CDT 01/16/2025 5:15 PM CDT Casey Paz MD LAB BLOOD ORDERABLES Final Result Performing Organization Address City/[facility]/ZIP Co de Phone Number KENYETTA[address] [place] [address] * Post-Transfusion Reaction ABO/Rh (01/16/2025 3:58 PM CDT) ABO/Rh Post-Transfusi on Reaction A Positive Comment:Testing performed by : [address] [address] Blood 01/16/2025 3:58 PM CDT 01/16/2025 3:59 PM CDT Casey Paz MD LAB BLOOD BANK TEST ORDERA BLES Final Result Performing Organization Address [facility] Co de Phone Number [address] [address] * Pre-Transfusion Reaction ABO/Rh (01/16/2025 3:58 PM CDT) ABO/Rh Pre-Transfusio n Reaction A Positive Comment:Testing performed by : [address] [address] Blood 01/16/2025 3:58 PM CDT 01/16/2025 3:59 PM CDT Casey Paz MD LAB BLOOD BANK TEST ORDERA BLES Final Result Performing Organization Address City/[facility]/ZIP Co de Phone Number [address] [place] [address] * Post TRXN SAMY (01/16/2025 3:58 PM CDT) Yesenia, direct, post-transfusi on Negative Comment:Testing performed by : [facility], [address] [place] [address]., [address] Blood 01/16/2025 3:58 PM CDT 01/16/2025 3:59 PM CDT Casey Paz MD LAB BLOOD BANK TEST ORDERA BLES Final Result Performing Organization Address [facility] de Phone Number KENYETTA[address] [address] * Pre TRXN SAMY (01/16/2025 3:58 PM CDT) Direct yesenia pre-transfusio n reaction Negative Comment:Testing performed by : [facility], [address] [place] [address]., [address] Blood 01/16/2025 3:58 PM CDT 01/16/2025 3:59 PM CDT Casey Paz MD LAB BLOOD BANK TEST ORDERA BLES Final Result Performing Organization Address [facility] de Phone Number [address] [address] * ECG 12 lead (01/16/2025 2:47 PM CDT) Pathologist [facility] Ventricular Rate EKG/Min 79 BPM [facility] Atrial Rate 79 BPM [facility] ND-Interval (MSEC) 190 ms [facility] QRS-Interval (MSEC) 80 ms [facility] QT-Interval (MSEC) 410 ms [facility] QTc 470 ms [facility] P [place] 48 degrees [facility] R [place] 22 degrees [facility] T [place] -16 degrees [facility] Diagnosis Normal sinus rhythm Nonspecific T wave abnormality Abnormal ECG When compared with ECG of 31-DEC-2024 23:51, Nonspecific T wave abnormality now evident in Anterolateral leads Confirmed by MIRYAM GARCÍA M.D. ([id number]) on 01/16/2025 6:28:08 PM [facility] 01/16/2025 2:47 PM CDT 01/16/2025 6:28 PM CDT Casey Paz MD ECG ORDERABLES Final Resu lt Performing Organization Address City/[facility]/ZIP Co de Phone Number [facility] * Troponin T high-sensitivity series (baseline, 2hr, 4hr, 6hr) (01/16/2025 2:40 PM CDT) Pathologist [facility] Trop T hs <6 <=22 ng/L Comment: Interpretive Data For further hscTnT resources including the diagnostic algorithm and an aid in interpretation, copy and paste this link: https://nrl.testcatalog.org/show/[email or web address] Current Interpretive Data last revised 2020. Testing performed by: [address] [address] Blood 01/16/2025 2:40 PM CDT 01/16/2025 2:55 PM CDT Casey Paz MD LAB BLOOD ORDERABLES Final Result Performing Organization Address [facility] Co de Phone Number [facility] [address] Department [place] [address] * (ABNORMAL) Differential, auto (01/16/2025 2:40 PM CDT) Pathologist [facility] Neutrophil abs 5.04 1.50 - 6.50 K/cumm Comment:Testing performed by : [address] [address] Imm gran abs 0.05 0.00 - 0.10 K/cumm [facility] Comment:Testing performed by : [address] [address] Lymphocyte abs 2.46 0.80 - 3.30 K/cumm [facility] Comment:Testing performed by : [address] [address] Monocyte abs 0.91(H) 0.20 - 0.80 K/cumm [facility] SHETT[facility] Comment:Testing performed by : [address] [address] Eosinophil abs 0.41 0.00 - 0.50 K/cumm [facility] Comment:Testing performed by : [address] [address] Basophil abs 0.04 0.00 - 0.10 K/cumm [facility] Comment:Testing performed by : [address] [address] Neutrophil pct 56.6 % [facility] Comment: Interpretive Data Percent cell count reference ranges are not reported, since discordance with absolute values may lead to misinterpretation of CBC data. Current Interpretive Data was last revised on 2017. Testing performed by: [address] [address] Imm gran pct 0.6 % [facility] Comment: Interpretive Data Percent cell count reference ranges are not reported, since discordance with absolute values may lead to misinterpretation of CBC data. Current Interpretive Data was last revised on 2017. Testing performed by: [address] [address] Lymphocyte pct 27.6 % [facility] Comment: Interpretive Data Percent cell count reference ranges are not reported, since discordance with absolute values may lead to misinterpretation of CBC data. Current Interpretive Data was last revised on 2017. Testing performed by: [address] [address] Monocyte pct 10.2 % [facility] Comment: Interpretive Data Percent cell count reference ranges are not reported, since discordance with absolute values may lead to misinterpretation of CBC data. Current Interpretive Data was last revised on 2017. Testing performed by: [address] [address] Eosinophil pct 4.6 % [facility] Comment: Interpretive Data Percent cell count reference ranges are not reported, since discordance with absolute values may lead to misinterpretation of CBC data. Current Interpretive Data was last revised on 2017. Testing performed by: [address] [address] Basophil pct 0.4 % [facility] Comment: Interpretive Data Percent cell count reference ranges are not reported, since discordance with absolute values may lead to misinterpretation of CBC data. Current Interpretive Data was last revised on 2017. Testing performed by: [address] [address] Blood 01/16/2025 2:40 PM CDT 01/16/2025 2:55 PM CDT Casey Paz MD LAB BLOOD ORDERABLES Final Result [facility] [address] [facility] Department [place] [address] * (ABNORMAL) CBC with auto differential (01/16/2025 2:40 PM CDT) WBC 8.91 3.80 - 9.90 K/cumm Comment:Testing performed by : [address] [address] Hgb 8.3(L) 13.0 - 17.5 g/dL [facility] Comment:Testing performed by : [address] [address] Hct 24.2(L) 38.9 - 50.3 % [facility] Comment:Testing performed by : [address] [address] Plt 316 150 - 400 K/cumm [facility] Comment:Testing performed by : [address] [address] MPV 10.1 9.1 - 12.3 fL [facility] Comment:Testing performed by : [address] [address] RBC 2.80(L) 4.30 - 5.80 M/cumm [facility] Comment:Testing performed by : [address] [address] MCV 86.4 81.3 - 96.4 fL [facility] Comment:Testing performed by : [address] [address] MCH 29.6 27.1 - 33.3 pg [facility] SHE[facility] Comment:Testing performed by : [facility], [address] [place] [address]., [address] MCHC 34.3 32.3 - 35.7 g/dL [facility] Comment:Testing performed by : [address] [address] RDW CV 21.2(H) 11.1 - 14.9 % [facility] Comment:Testing performed by : [address] [address] RDW SD 66.2(H) 35.7 - 48.1 fL [facility] Comment:Testing performed by : [address] [address] NRBC abs 0.07(H) 0.00 - 0.01 K/cumm [facility] Comment:Testing performed by : [address] [address] Morphologic Screen Results confirmed by manual morphology review. [facility] Comment:Testing performed by : [address] [address] Blood 01/16/2025 2:40 PM CDT 01/16/2025 2:55 PM CDT Casey Paz MD LAB BLOOD ORDERABLES Final Result Performing Organization Address City/State/[facility] Co de Phone Number [facility] [address] [facility] Department [place] [address] * XR Chest 1 View (01/16/2025 2:20 [...] Bradley Rushing M.D. MF: CALDERON Report ID: [id number] Reading Location: [id number] Procedure Note Bradley Rushing, DO - 01/16/2025 [...] Bradley Rushing M.D. MF: CALDERON Report ID: [id number] Reading Location: [id number] Casey Paz MD IMG XR PROCEDURES Final Re sult * Transfuse RBC (01/16/2025 2:09 PM CDT) Blood Casey Paz MD BLOOD TRANSFUSION ORDERABL ES Final Result [facility] SHE[facility] [address] [facility] Department [place] [address] * Prepare RBC: 1 Units (01/16/2025 11:30 AM CDT) Units requested 1 Comment:Testing performed by : [facility], [address] [place] [address]., [address] Units requested Ready [facility] SHETT[facility] Comment:Testing performed by : [facility], [address] [place] [address]., [address] Unit Number [id number] Product code [id number] [facility] Blood Expiration Date [id number] [facility] Product Blood Type (for scanning) 6200 [facility] Product Blood Type APOS [facility] Dispense Status DISPENSED [facility] Blood 01/16/2025 11:3 0 AM CDT 01/16/2025 11:29 AM CDT Casey Paz MD BLOOD BANK PRODUCT ORDERAB LES Final Result Performing Organization Address [facility] Co de Phone Number [address] [place] [address] * ABO/Rh (01/16/2025 10:42 AM CDT) ABO/Rh A Positive Comment:Testing performed by : [facility], [address] [place] [address]., [address] Blood 01/16/2025 10:4 2 AM CDT 01/16/2025 10:47 AM CDT Narrative [facility] - 01/16/2025 11:25 AM CDT Has the patient had Daratumumab or Isatuximab in the past 6 months?->Unknown Casey Paz MD LAB BLOOD BANK TEST ORDERA BLES Final Result Performing Organization Address [facility] Co de Phone Number [address] [place] [address] * Crossmatch (01/16/2025 10:42 AM CDT) Crossmatch Compatible [facility] Unit number for crossmatch [id number] [facility] Crossmatch Compatible [facility] Unit number for crossmatch [id number] [facility] Blood 01/16/2025 10:4 2 AM CDT 01/16/2025 10:47 AM CDT Casey Paz MD LAB BLOOD BANK TEST ORDERA BLES Final Result Performing Organization Address City/[facility]/ZIP Co de Phone Number KENYETTA[address] [employer] [place] [address] * Antibody screen (01/16/2025 10:42 AM CDT) Yesenia, indirect, Gel Interpretation Negative [facility] Comment:Testing performed by : [facility], [address] [place] [address]., [address] Blood 01/16/2025 10:4 2 AM CDT 01/16/2025 10:47 AM CDT Narrative [facility] - 01/16/2025 11:25 AM CDT Has the patient had Daratumumab or Isatuximab in the past 6 months?->Unknown Casey Paz MD LAB BLOOD BANK TEST ORDERA BLES Final Result Performing Organization Address City/[facility] Co de Phone Number [facility] [address] [place] [address] * eGFR (01/16/2025 2:59 AM CDT) Pathologist [facility] [...] was last reviewed 2021. Testing performed by: [address] [address] Blood 01/16/2025 2:59 AM CDT 01/16/2025 3:12 AM CDT us Rasta Garcia MD LAB BLOOD ORDERABLES Final Res ult [facility] [address] [facility] Department [place] [address] * (ABNORMAL) Differential, auto (01/16/2025 2:59 AM CDT) Neutrophil abs 4.31 1.50 - 6.50 K/cumm Comment:Testing performed by : [address] [address] Imm gran abs 0.03 0.00 - 0.10 K/cumm [facility] Comment:Testing performed by : [address] [address] Lymphocyte abs 3.04 0.80 - 3.30 K/cumm [facility] Comment:Testing performed by : [address] [address] Monocyte abs 0.81(H) 0.20 - 0.80 K/cumm [facility] Comment:Testing performed by : [address] [address] Eosinophil abs 0.38 0.00 - 0.50 K/cumm [facility] Comment:Testing performed by : [address] [address] Basophil abs 0.04 0.00 - 0.10 K/cumm [facility] Comment:Testing performed by : [address] [address] Neutrophil pct 50.1 % [facility] Comment: Interpretive Data Percent cell count reference ranges are not reported, since discordance with absolute values may lead to misinterpretation of CBC data. Current Interpretive Data was last revised on 2017. Testing performed by: [address] [address] Imm gran pct 0.3 % [facility] Comment: Interpretive Data Percent cell count reference ranges are not reported, since discordance with absolute values may lead to misinterpretation of CBC data. Current Interpretive Data was last revised on 2017. Testing performed by: [address] [address] Lymphocyte pct 35.3 % [facility] Comment: Interpretive Data Percent cell count reference ranges are not reported, since discordance with absolute values may lead to misinterpretation of CBC data. Current Interpretive Data was last revised on 2017. Testing performed by: [address] [address] Monocyte pct 9.4 % [facility] Comment: Interpretive Data Percent cell count reference ranges are not reported, since discordance with absolute values may lead to misinterpretation of CBC data. Current Interpretive Data was last revised on 2017. Testing performed by: [address] [address] Eosinophil pct 4.4 % [facility] Comment: Interpretive Data Percent cell count reference ranges are not reported, since discordance with absolute values may lead to misinterpretation of CBC data. Current Interpretive Data was last revised on 2017. Testing performed by: [address] [address] Basophil pct 0.5 % [facility] Comment: Interpretive Data Percent cell count reference ranges are not reported, since discordance with absolute values may lead to misinterpretation of CBC data. Current Interpretive Data was last revised on 2017. Testing performed by: [address] [address] Blood 01/16/2025 2:59 AM CDT 01/16/2025 3:13 AM CDT us Rasta Garcia MD LAB BLOOD ORDERABLES Final Res ult [facility] SHETT[facility] [address] [facility] Department [place] [address] * (ABNORMAL) CBC with auto differential (01/16/2025 2:59 AM CDT) [facility] WBC 8.61 3.80 - 9.90 K/cumm Comment:Testing performed by : [address], [address] Hgb 7.0(L) 13.0 - 17.5 g/dL [facility] Comment:Testing performed by : [address], [address] Hct 19.8(L) 38.9 - 50.3 % [facility] Comment:Testing performed by : [address], [address] Plt 276 150 - 400 K/cumm [facility] Comment:Testing performed by : [address], [address] MPV 10.1 9.1 - 12.3 fL [facility] Comment:Testing performed by : [address], [address] RBC 2.31(L) 4.30 - 5.80 M/cumm [facility] Comment:Testing performed by : [address], [address] MCV 85.7 81.3 - 96.4 fL [facility] Comment:Testing performed by : [address], [address] MCH 30.3 27.1 - 33.3 pg [facility] Comment:Testing performed by : [address], [address] MCHC 35.4 32.3 - 35.7 g/dL [facility] Comment:Testing performed by : [address], [address] RDW CV 21.6(H) 11.1 - 14.9 % [facility] Comment:Testing performed by : [address], [address] RDW SD 65.4(H) 35.7 - 48.1 fL [facility] Comment:Testing performed by : [address], [address] NRBC abs 0.07(H) 0.00 - 0.01 K/cumm [facility] Comment:Testing performed by : [address] [address] Morphologic Screen Results confirmed by manual morphology review. [facility] Comment:Testing performed by : [address] [address] Blood 01/16/2025 2:59 AM CDT 01/16/2025 3:13 AM CDT us Rasta Garcia MD LAB BLOOD ORDERABLES Final Res ult Performing Organization Address [facility] Co de Phone Number KENYETTA[address] [place] [address] * (ABNORMAL) Reticulocyte Count (01/16/2025 2:59 AM CDT) [facility] Retics, absolute 431(H) 20 - 87 K/cumm Comment:Testing performed by : [address] [address] Retics 18.7(H) 0.4 - 2.9 % [facility] Comment:Testing performed by : [address] [address] Reticulocyte Hgb 28.0(L) 30.5 - 38.0 pg [facility] Comment:Testing performed by : [address] [address] Blood 01/16/2025 2:59 AM CDT 01/16/2025 3:13 AM CDT us Rasta Garcia MD LAB BLOOD ORDERABLES Final Res ult Performing Organization Address [facility] de Phone Number [place] [id number] [facility] [place] [address] * (ABNORMAL) Basic metabolic panel (01/16/2025 2:59 AM CDT) [facility] Sodium 138 135 - 145 mmol/L Comment:Testing performed by : [address] [address] Potassium, pl 3.2(L) 3.3 - 4.9 mmol/L [facility] Comment:Testing performed by : [address] [address] Chloride 103 97 - 110 mmol/L [facility] Comment:Testing performed by : [address] [address] CO2 25 22 - 32 mmol/L [facility] Comment:Testing performed by : [address] [address] Anion gap 10 2 - 15 mmol/L [facility] Comment:Testing performed by : [address] [address] BUN 3(L) 6 - 25 mg/dL [facility] Comment:Testing performed by : [address] [address] Creatinine 0.49(L) 0.80 - 1.30 mg/dL [facility] Comment:Testing performed by : [address] [address] Glucose 154 70 - 199 mg/dL [facility] Comment: Interpretive Data Fasting glucose >/= [...] was last revised 2022. Testing performed by: [address] [address] Calcium 8.7 8.5 - 10.3 mg/dL [facility] Comment:Testing performed by : [address] [address] Blood 01/16/2025 2:59 AM CDT 01/16/2025 3:12 AM CDT us Rasta Garcia MD LAB BLOOD ORDERABLES Final Res ult Performing Organization Address City/State/[facility] Co de Phone Number [facility] [address] [facility] Department [place] [address] * (ABNORMAL) Blood smear review (01/15/2025 5:38 AM CDT) RBC morphology Present(A) Comment:Testing performed by : [facility], [address] [place] [address], [place]., [address] Hypochromasia 3-7/HPF(A) [facility] Comment:Testing performed by : [facility], [address] [place] [address], [place]., [address] Anisocytosis Moderate(A) [facility] Comment:Testing performed by : [address], [place]., [address] Schistocytes 1-2/HPF(A) [facility] Comment:Testing performed by : [address], [place]., [address] Sickle cells 1-2/HPF(A) [facility] Comment:Testing performed by : [address], [place]., [address] Elliptocytes 8-15/HPF(A) [facility] Comment:Testing performed by : [address], [place]., [address] Target cells 3-7/HPF(A) [facility] Comment:Testing performed by : [address], [place]., [address] Acanthocytes 3-7/HPF(A) [facility] Comment:Testing performed by : [address], [place] [address] Platelet estimate Adequate [facility] Comment:Testing performed by : [address], [place]., [address] Blood 01/15/2025 5:38 AM CDT 01/15/2025 6:12 AM CDT us Rasta Garcia MD LAB BLOOD ORDERABLES Final Res ult Performing Organization Address City/[facility] Co de Phone Number [facility] [address] [facility] Department [place] [address] * eGFR (01/15/2025 5:38 AM CDT) eGFR [...] was last reviewed 2021. Testing performed by: [address] [address] Blood 01/15/2025 5:38 AM CDT 01/15/2025 6:12 AM CDT us Rasta Garcia MD LAB BLOOD ORDERABLES Final Res ult [facility] [address] [facility] Department [place] [address] * (ABNORMAL) Differential, auto (01/15/2025 5:38 AM CDT) Pathologist [facility] Neutrophil abs 3.92 1.50 - 6.50 K/cumm Comment:Testing performed by : [address] [address] Imm gran abs 0.07 0.00 - 0.10 K/cumm [facility] Comment:Testing performed by : [address] [address] Lymphocyte abs 3.68(H) 0.80 - 3.30 K/cumm [place] Comment:Testing performed by : [address] [address] Monocyte abs 0.80 0.20 - 0.80 K/cumm [facility] Comment:Testing performed by : [address] [address] Eosinophil abs 0.40 0.00 - 0.50 K/cumm [facility] Comment:Testing performed by : [address], [place]., [address] Basophil abs 0.04 0.00 - 0.10 K/cumm [facility] Comment:Testing performed by : [address] [address] Neutrophil pct 44.0 % [facility] Comment: Interpretive Data Percent cell count reference ranges are not reported, since discordance with absolute values may lead to misinterpretation of CBC data. Current Interpretive Data was last revised on 2017. Testing performed by: [address] [address] Imm gran pct 0.8 % [facility] Comment: Interpretive Data Percent cell count reference ranges are not reported, since discordance with absolute values may lead to misinterpretation of CBC data. Current Interpretive Data was last revised on 2017. Testing performed by: [address] [address] Lymphocyte pct 41.3 % [facility] Comment: Interpretive Data Percent cell count reference ranges are not reported, since discordance with absolute values may lead to misinterpretation of CBC data. Current Interpretive Data was last revised on 2017. Testing performed by: [address] [address] Monocyte pct 9.0 % [facility] Comment: Interpretive Data Percent cell count reference ranges are not reported, since discordance with absolute values may lead to misinterpretation of CBC data. Current Interpretive Data was last revised on 2017. Testing performed by: [address] [address] Eosinophil pct 4.5 % [facility] Comment: Interpretive Data Percent cell count reference ranges are not reported, since discordance with absolute values may lead to misinterpretation of CBC data. Current Interpretive Data was last revised on 2017. Testing performed by: [address] [address] Basophil pct 0.4 % [facility] SHE[facility] Comment: Interpretive Data Percent cell count reference ranges are not reported, since discordance with absolute values may lead to misinterpretation of CBC data. Current Interpretive Data was last revised on 2017. Testing performed by: [address] [address] Blood 01/15/2025 5:38 AM CDT 01/15/2025 6:12 AM CDT us Rasta Garcia MD LAB BLOOD ORDERABLES Final Res ult [facility] [address] [facility] Department [place] [address] * (ABNORMAL) CBC with auto differential (01/15/2025 5:38 AM CDT) WBC 8.91 3.80 - 9.90 K/cumm Comment:Testing performed by : [address] [address] Hgb 7.3(L) 13.0 - 17.5 g/dL [facility] SHETT[facility] Comment:Testing performed by : [address] [address] Hct 21.4(L) 38.9 - 50.3 % [facility] Comment:Testing performed by : [address] [address] Plt 316 150 - 400 K/cumm [facility] SHETT[facility] Comment:Testing performed by : [address] [address] MPV 10.1 9.1 - 12.3 fL [facility] SHE[facility] Comment:Testing performed by : [address] [address] RBC 2.46(L) 4.30 - 5.80 M/cumm [facility] SHETT[facility] Comment:Testing performed by : [address] [address] MCV 87.0 81.3 - 96.4 fL [facility] Comment:Testing performed by : [address] [address] MCH 29.7 27.1 - 33.3 pg [facility] SHE[facility] Comment:Testing performed by : [address] [address] MCHC 34.1 32.3 - 35.7 g/dL [facility] SHETT[facility] Comment:Testing performed by : [address] [address] RDW CV 21.6(H) 11.1 - 14.9 % [facility] Comment:Testing performed by : [address] [address] RDW SD 67.9(H) 35.7 - 48.1 fL [facility] SHE[facility] Comment:Testing performed by : [address] [address] NRBC abs 0.13(H) 0.00 - 0.01 K/cumm [facility] Comment:Testing performed by : [address] [address] Blood 01/15/2025 5:38 AM CDT 01/15/2025 6:12 AM CDT us Rasta Garcia MD LAB BLOOD ORDERABLES Edited Re sult - Final [facility] [address] [facility] Department of Laboratories [place], [place] [id number] * (ABNORMAL) Reticulocyte Count (01/15/2025 5:38 AM CDT) Retics, absolute 497(H) 20 - 87 K/cumm Comment:Testing performed by : [address] [address] Retics 20.2(H) 0.4 - 2.9 % [facility] SHETT[facility] Comment:Testing performed by : [address] [address] Reticulocyte Hgb 28.3(L) 30.5 - 38.0 pg [facility] SHETT[facility] Comment:Testing performed by : [address] [address] Blood 01/15/2025 5:38 AM CDT 01/15/2025 6:12 AM CDT us Rasta Garcia MD LAB BLOOD ORDERABLES Final Res ult [facility] [address] [facility] Department [place] [address] * (ABNORMAL) Basic metabolic panel (01/15/2025 5:38 AM CDT) Sodium 136 135 - 145 mmol/L Comment:Testing performed by : [address] [address] Potassium, pl 3.2(L) 3.3 - 4.9 mmol/L [facility] Comment:Testing performed by : [address] [address] Chloride 102 97 - 110 mmol/L [facility] Comment:Testing performed by : [address] [address] CO2 24 22 - 32 mmol/L [facility] Comment:Testing performed by : [address] [address] Anion gap 10 2 - 15 mmol/L [facility] Comment:Testing performed by : [address] [address] BUN 3(L) 6 - 25 mg/dL [facility] Comment:Testing performed by : [address] [address] Creatinine 0.44(L) 0.80 - 1.30 mg/dL [facility] Comment:Testing performed by : [address] [address] Glucose 116 70 - 199 mg/dL [facility] [...] was last revised 2022. Testing performed by: [facility], [address] [place] [address]., [address] Calcium 9.0 8.5 - 10.3 mg/dL [facility] SHETTY Comment:Testing performed by : [address] [address] Blood 01/15/2025 5:38 AM CDT 01/15/2025 6:12 AM CDT us Rasta Garcia MD LAB BLOOD ORDERABLES Final Res ult [facility] [address] [facility] Department [place] [address] * eGFR (01/14/2025 6:18 AM [...] was last reviewed 2021. Testing performed by: [address] [address] Blood 01/14/2025 6:18 AM CDT 01/14/2025 6:28 AM CDT us Rasta Garcia MD LAB BLOOD ORDERABLES Final Res ult [facility] [address] [facility] Department [place] [address] * Differential, auto (01/14/2025 6:18 AM CDT) Neutrophil abs 4.75 1.50 - 6.50 K/cumm Comment:Testing performed by : [address] [address] Imm gran abs 0.04 0.00 - 0.10 K/cumm [facility] Comment:Testing performed by : [address] [address] Lymphocyte abs 3.30 0.80 - 3.30 K/cumm [facility] Comment:Testing performed by : [address] [address] Monocyte abs 0.76 0.20 - 0.80 K/cumm [facility] Comment:Testing performed by : [address] [address] Eosinophil abs 0.14 0.00 - 0.50 K/cumm [facility] Comment:Testing performed by : [address] [address] Basophil abs 0.04 0.00 - 0.10 K/cumm [facility] Comment:Testing performed by : [address] [address] Neutrophil pct 52.7 % [facility] Comment: Interpretive Data Percent cell count reference ranges are not reported, since discordance with absolute values may lead to misinterpretation of CBC data. Current Interpretive Data was last revised on 2017. Testing performed by: [address] [address] Imm gran pct 0.4 % [facility] Comment: Interpretive Data Percent cell count reference ranges are not reported, since discordance with absolute values may lead to misinterpretation of CBC data. Current Interpretive Data was last revised on 2017. Testing performed by: [address] [address] Lymphocyte pct 36.5 % [facility] Comment: Interpretive Data Percent cell count reference ranges are not reported, since discordance with absolute values may lead to misinterpretation of CBC data. Current Interpretive Data was last revised on 2017. Testing performed by: [address] [address] Monocyte pct 8.4 % [facility] Comment: Interpretive Data Percent cell count reference ranges are not reported, since discordance with absolute values may lead to misinterpretation of CBC data. Current Interpretive Data was last revised on 2017. Testing performed by: [address] [address] Eosinophil pct 1.6 % [facility] Comment: Interpretive Data Percent cell count reference ranges are not reported, since discordance with absolute values may lead to misinterpretation of CBC data. Current Interpretive Data was last revised on 2017. Testing performed by: [address] [address] Basophil pct 0.4 % [facility] Comment: Interpretive Data Percent cell count reference ranges are not reported, since discordance with absolute values may lead to misinterpretation of CBC data. Current Interpretive Data was last revised on 2017. Testing performed by: [address] [address] Blood 01/14/2025 6:18 AM CDT 01/14/2025 6:28 AM CDT us Rasta Garcia MD LAB BLOOD ORDERABLES Final Res ult [facility] [address] [facility] Department [place] [address] * (ABNORMAL) CBC with auto differential (01/14/2025 6:18 AM CDT) WBC 9.03 3.80 - 9.90 K/cumm Comment:Testing performed by : [address] [address] Hgb 7.5(L) 13.0 - 17.5 g/dL [facility] Comment:Testing performed by : [address] [address] Hct 21.8(L) 38.9 - 50.3 % [facility] Comment:Testing performed by : [address] [address] Plt 287 150 - 400 K/cumm [facility] Comment:Testing performed by : [address] [address] MPV 10.1 9.1 - 12.3 fL [facility] Comment:Testing performed by : [address], [address] RBC 2.47(L) 4.30 - 5.80 M/cumm [facility] Comment:Testing performed by : [address] [address] MCV 88.3 81.3 - 96.4 fL [place] Comment:Testing performed by : [address] [address] MCH 30.4 27.1 - 33.3 pg [facility] Comment:Testing performed by : [address] [address] MCHC 34.4 32.3 - 35.7 g/dL [facility] Comment:Testing performed by : [address] [address] RDW CV 22.0(H) 11.1 - 14.9 % [facility] Comment:Testing performed by : [address], [address] RDW SD 69.9(H) 35.7 - 48.1 fL [facility] Comment:Testing performed by : [address] [address] NRBC abs 0.18(H) 0.00 - 0.01 K/cumm [facility] Comment:Testing performed by : [address], [address] Morphologic Screen Results confirmed by manual morphology review. [facility] Comment:Testing performed by : [address] [address] Blood 01/14/2025 6:18 AM CDT 01/14/2025 6:28 AM CDT Rasta Garcia MD LAB BLOOD ORDERABLES Edited Re sult - Final Performing Organization Address [facility] Co de Phone Number [facility] [address] [address] * (ABNORMAL) Reticulocyte Count (01/14/2025 6:18 AM CDT) Pathologist [facility] Retics, absolute 537(H) 20 - 87 K/cumm Comment:Testing performed by : [address] [address] Retics 21.5(H) 0.4 - 2.9 % [facility] Comment:Testing performed by : [address] [address] Reticulocyte Hgb 28.4(L) 30.5 - 38.0 pg [facility] Comment:Testing performed by : [address] [address] Blood 01/14/2025 6:18 AM CDT 01/14/2025 6:28 AM CDT us Rasta Garcia MD LAB BLOOD ORDERABLES Final Res ult Performing Organization Address [facility] Co de Phone Number [address] [address] * (ABNORMAL) Basic metabolic panel (01/14/2025 6:18 AM CDT) Pathologist [facility] Sodium 137 135 - 145 mmol/L Comment:Testing performed by : [address] [address] Potassium, pl 3.5 3.3 - 4.9 mmol/L [facility] SHETTY Comment:Testing performed by : [address] [address] Chloride 103 97 - 110 mmol/L [facility] Comment:Testing performed by : [address] [address] CO2 24 22 - 32 mmol/L [facility] Comment:Testing performed by : [address] [address] Anion gap 10 2 - 15 mmol/L [facility] Comment:Testing performed by : [address] [address] BUN 2(L) 6 - 25 mg/dL [facility] Comment:Testing performed by : [address] [address] Creatinine 0.45(L) 0.80 - 1.30 mg/dL [facility] Comment:Testing performed by : [address] [address] Glucose 141 70 - 199 mg/dL [facility] [...] was last revised 2022. Testing performed by: [address] [address] Calcium 8.8 8.5 - 10.3 mg/dL [facility] Comment:Testing performed by : [address] [address] Blood 01/14/2025 6:18 AM CDT 01/14/2025 6:28 AM CDT us Rasta Garcia MD LAB BLOOD ORDERABLES Final Res ult [facility] [address] [facility] Department [place] [address] * XR Chest PA Lateral 2 Views [...] Gee Laboy D.O. AP: AP Report ID: [id number] Reading Location: [id number] Procedure Note Gee Laboy, DO - 01/11/2025 [...] Electronically signed by Gee Laboy D.O. AP: MICK Report ID: [id number] Reading Location: [place] [address] us Casey Paz MD IMG XR PROCEDURES [...] was last reviewed 2021. Testing performed by: [facility], [address] [place] [address]., [address] Blood 01/11/2025 1:12 PM CDT 01/11/2025 1:15 PM CDT us Rasta Garcia MD LAB BLOOD ORDERABLES Final Res ult [facility] [address] [facility] Department [place] [address] * (ABNORMAL) CBC with auto differential (01/11/2025 1:12 PM CDT) WBC 10.21(H) 3.80 - 9.90 K/cumm Comment:Testing performed by : [address] [address] Hgb 8.3(L) 13.0 - 17.5 g/dL [facility] Comment:Testing performed by : [address] [address] Hct 24.3(L) 38.9 - 50.3 % [facility] Comment:Testing performed by : [address] [address] Plt 379 150 - 400 K/cumm [facility] Comment:Testing performed by : [address], [address] MPV 9.9 9.1 - 12.3 fL [facility] Comment:Testing performed by : [address], [address] RBC 2.82(L) 4.30 - 5.80 M/cumm [facility] Comment:Testing performed by : [address] [address] MCV 86.2 81.3 - 96.4 fL [facility] Comment:Testing performed by : [address], [address] MCH 29.4 27.1 - 33.3 pg [facility] Comment:Testing performed by : [address] [address] MCHC 34.2 32.3 - 35.7 g/dL [facility] Comment:Testing performed by : [address], [address] RDW CV 23.4(H) 11.1 - 14.9 % [facility] Comment:Testing performed by : [address], [address] RDW SD 70.7(H) 35.7 - 48.1 fL [facility] Comment:Testing performed by : [address] [address] NRBC abs 0.23(H) 0.00 - 0.01 K/cumm [facility] Comment:Testing performed by : [address] [place] [address] Blood 01/11/2025 1:12 PM CDT 01/11/2025 1:15 PM CDT Rasta Garcia MD LAB BLOOD ORDERABLES Edited Re sult - Final [facility] [address] [facility] Department [place] [address] * (ABNORMAL) Manual Differential (01/11/2025 1:12 PM CDT) Differential Manual Comment:Testing performed by : [address] [address] Cells Counted 100 [facility] Comment:Testing performed by : [address] [address] Neutrophil abs 4.90 1.50 - 6.50 K/cumm [facility] Comment:Testing performed by : [address] [address] Lymphocyte abs 4.39(H) 0.80 - 3.30 K/cumm [facility] Comment:Testing performed by : [address] [address] Monocyte abs 0.51 0.20 - 0.80 K/cumm [facility] Comment:Testing performed by : [address] [address] Eosinophil abs 0.41 0.00 - 0.50 K/cumm [facility] Comment:Testing performed by : [address] [address] Neutrophil pct 48.0 % [facility] Comment: Interpretive Data Percent cell count reference ranges are not reported, since discordance with absolute values may lead to misinterpretation of CBC data. Current Interpretive Data was last revised on 2017. Testing performed by: [address] [address] Lymphocyte pct 43.0 % [facility] Comment: Interpretive Data Percent cell count reference ranges are not reported, since discordance with absolute values may lead to misinterpretation of CBC data. Current Interpretive Data was last revised on 2017. Testing performed by: [facility], [address] [place] [address], [place]., [address] Monocyte pct 5.0 % [facility] Comment: Interpretive Data Percent cell count reference ranges are not reported, since discordance with absolute values may lead to misinterpretation of CBC data. Current Interpretive Data was last revised on 2017. Testing performed by: [address], [place]., [address] Eosinophil pct 4.0 % [facility] Comment: Interpretive Data Percent cell count reference ranges are not reported, since discordance with absolute values may lead to misinterpretation of CBC data. Current Interpretive Data was last revised on 2017. Testing performed by: [address], [place]., [address] RBC morphology Present(A) [facility] Comment:Testing performed by : [address], [place]., [address] Polychromasia 3-7/HPF(A) [facility] Comment:Testing performed by : [address], [place]., [address] Anisocytosis Marked(A) [facility] Comment:Testing performed by : [address], [place]., [address] Sickle cells 1-2/HPF(A) [facility] Comment:Testing performed by : [address], [place]., [address] Elliptocytes 8-15/HPF(A) [facility] Comment:Testing performed by : [address] [address] Teardrop cells 3-7/HPF(A) [facility] Comment:Testing performed by : [address], [place]., [address] Platelet morphology Normal [facility] Comment:Testing performed by : [address], [place]., [address] Platelet estimate Adequate [facility] Comment:Testing performed by : [address], [place]., [address] Blood 01/11/2025 1:12 PM CDT 01/11/2025 1:15 PM CDT us Rasta Garcia MD LAB BLOOD ORDERABLES Final Res ult Performing Organization Address [facility] Co de Phone Number [facility] [address] [place] [address] * (ABNORMAL) Reticulocyte Count (01/11/2025 1:12 PM CDT) [facility] Retics, absolute 585(H) 20 - 87 K/cumm Comment:Testing performed by : [address] [address] Retics 20.8(H) 0.4 - 2.9 % [facility] SHETT[facility] Comment:Testing performed by : [address] [address] Reticulocyte Hgb 30.1(L) 30.5 - 38.0 pg [facility] SHETT[facility] Comment:Testing performed by : [address] [address] Blood 01/11/2025 1:12 PM CDT 01/11/2025 1:15 PM CDT us Rasta Garcia MD LAB BLOOD ORDERABLES Final Res ult Performing Organization Address [facility] de Phone Number [facility] [address] [place] [address] * (ABNORMAL) Basic metabolic panel (01/11/2025 1:12 PM CDT) [facility] Sodium 138 135 - 145 mmol/L Comment:Testing performed by : [address] [address] Potassium, pl 3.7 3.3 - 4.9 mmol/L [facility] SHETT[facility] Comment:Testing performed by : [address] [address] Chloride 103 97 - 110 mmol/L [facility] Comment:Testing performed by : [address] [address] CO2 24 22 - 32 mmol/L [facility] Comment:Testing performed by : [address] [address] Anion gap 11 2 - 15 mmol/L [facility] Comment:Testing performed by : [address] [address] BUN 2(L) 6 - 25 mg/dL [facility] Comment:Testing performed by : [address] [address] Creatinine 0.50(L) 0.80 - 1.30 mg/dL [facility] Comment:Testing performed by : [address] [address] Glucose 110 70 - 199 mg/dL [facility] [...] was last revised 2022. Testing performed by: [address] [address] Calcium 8.7 8.5 - 10.3 mg/dL [facility] Comment:Testing performed by : [address] [address] Blood 01/11/2025 1:12 PM CDT 01/11/2025 1:15 PM CDT us Rasta Garcia MD LAB BLOOD ORDERABLES Final Res ult [facility] [address] [facility] Department [place] [address] * XR Chest 1 View [...] Anne Merchant M.D. FT: FT Report ID: [id number] Reading Location: [id number] Procedure Note Anne Hernandes MD - 01/10/2025 [...] Anne Merchant M.D. FT: FT Report ID: [id number] Reading Location: [id number] Jaya Garcia DO IMG XR PROCEDURES Final [...] was last reviewed 2021. Testing performed by: [address] [address] Blood 01/10/2025 10:2 9 AM CDT 01/10/2025 10:53 AM CDT us Rasta Garcia MD LAB BLOOD ORDERABLES Final Res ult [facility] [address] [facility] Department [place] [address] * (ABNORMAL) Differential, auto (01/10/2025 10:29 AM CDT) Neutrophil abs 4.63 1.50 - 6.50 K/cumm Comment:Testing performed by : [address] [address] Imm gran abs 0.08 0.00 - 0.10 K/cumm [facility] SHETT[facility] Comment:Testing performed by : [address] [address] Lymphocyte abs 4.22(H) 0.80 - 3.30 K/cumm [facility] Comment:Testing performed by : [address] [address] Monocyte abs 0.96(H) 0.20 - 0.80 K/cumm [facility] Comment:Testing performed by : [address] [address] Eosinophil abs 0.20 0.00 - 0.50 K/cumm [facility] Comment:Testing performed by : [address] [address] Basophil abs 0.06 0.00 - 0.10 K/cumm [facility] Comment:Testing performed by : [address] [address] Neutrophil pct 45.5 % [facility] Comment: Interpretive Data Percent cell count reference ranges are not reported, since discordance with absolute values may lead to misinterpretation of CBC data. Current Interpretive Data was last revised on 2017. Testing performed by: [address] [address] Imm gran pct 0.8 % [facility] Comment: Interpretive Data Percent cell count reference ranges are not reported, since discordance with absolute values may lead to misinterpretation of CBC data. Current Interpretive Data was last revised on 2017. Testing performed by: [address] [address] Lymphocyte pct 41.6 % [facility] Comment: Interpretive Data Percent cell count reference ranges are not reported, since discordance with absolute values may lead to misinterpretation of CBC data. Current Interpretive Data was last revised on 2017. Testing performed by: [address] [address] Monocyte pct 9.5 % [facility] Comment: Interpretive Data Percent cell count reference ranges are not reported, since discordance with absolute values may lead to misinterpretation of CBC data. Current Interpretive Data was last revised on 2017. Testing performed by: [address] [address] Eosinophil pct 2.0 % [facility] Comment: Interpretive Data Percent cell count reference ranges are not reported, since discordance with absolute values may lead to misinterpretation of CBC data. Current Interpretive Data was last revised on 2017. Testing performed by: [address] [address] Basophil pct 0.6 % [facility] Comment: Interpretive Data Percent cell count reference ranges are not reported, since discordance with absolute values may lead to misinterpretation of CBC data. Current Interpretive Data was last revised on 2017. Testing performed by: [address] [address] Blood 01/10/2025 10:2 9 AM CDT 01/10/2025 10:52 AM CDT us Rasta Garcia MD LAB BLOOD ORDERABLES Final Res ult [facility] Department [place] [address] * (ABNORMAL) CBC with auto differential (01/10/2025 10:29 AM CDT) WBC 10.15(H) 3.80 - 9.90 K/cumm Comment:Testing performed by : [address] [address] Hgb 7.5(L) 13.0 - 17.5 g/dL [place] Comment:Testing performed by : [address] [address] Hct 22.0(L) 38.9 - 50.3 % [place] Comment:Testing performed by : [address] [address] Plt 324 150 - 400 K/cumm [place] Comment:Testing performed by : [address] [address] MPV 10.3 9.1 - 12.3 fL [place] Comment:Testing performed by : [address] [address] RBC 2.51(L) 4.30 - 5.80 M/cumm [place] Comment:Testing performed by : [address] [address] MCV 87.6 81.3 - 96.4 fL [place] Comment:Testing performed by : [address] [address] MCH 29.9 27.1 - 33.3 pg [place] SHETTY Comment:Testing performed by : [address] [address] MCHC 34.1 32.3 - 35.7 g/dL [place] SHETTY Comment:Testing performed by : [address] [address] RDW CV 22.9(H) 11.1 - 14.9 % [place] SHETTY Comment:Testing performed by : [address] [address] RDW SD 69.4(H) 35.7 - 48.1 fL [place] SHETTY Comment:Testing performed by : [address] [address] NRBC abs 0.15(H) 0.00 - 0.01 K/cumm [place] SHETTY Comment:Testing performed by : [address] [address] Morphologic Screen Results confirmed by manual morphology review. [place] Comment:Testing performed by : [address] [address] Blood 01/10/2025 10:2 9 AM CDT 01/10/2025 10:52 AM CDT us Rasta Garcia MD LAB BLOOD ORDERABLES Edited Re sult - Final [facility] [facility] Department of Laboratories [place], [place] [id number] * (ABNORMAL) Reticulocyte Count (01/10/2025 10:29 AM CDT) Retics, absolute 624(H) 20 - 87 K/cumm Comment:Testing performed by : [address] [address] Retics 21.5(H) 0.4 - 2.9 % [place] SHETTY Comment:Testing performed by : [address] [address] Reticulocyte Hgb 28.1(L) 30.5 - 38.0 pg [place] SHETTY Comment:Testing performed by : [address] [address] Blood 01/10/2025 10:2 9 AM CDT 01/10/2025 10:52 AM CDT us Rasta Garcia MD LAB BLOOD ORDERABLES Final Res ult [facility] [facility] [facility] Department [place] [address] * (ABNORMAL) Basic metabolic panel (01/10/2025 10:29 AM CDT) Sodium 138 135 - 145 mmol/L Comment:Testing performed by : [address] [address] Potassium, pl 3.5 3.3 - 4.9 mmol/L [place] Comment:Testing performed by : [address] [address] Chloride 104 97 - 110 mmol/L [place] Comment:Testing performed by : [address] [address] CO2 24 22 - 32 mmol/L [place] Comment:Testing performed by : [address] [address] Anion gap 10 2 - 15 mmol/L [place] Comment:Testing performed by : [address] [address] BUN 2(L) 6 - 25 mg/dL [place] Comment:Testing performed by : [address] [address] Creatinine 0.50(L) 0.80 - 1.30 mg/dL [place] Comment:Testing performed by : [address] [address] Glucose 98 70 - 199 mg/dL [place] [...] was last revised 2022. Testing performed by: [facility], [address] [place] [address]., [address] Calcium 8.4(L) 8.5 - 10.3 mg/dL [place] Comment:Testing performed by : [address] [address] Blood 01/10/2025 10:2 9 AM CDT 01/10/2025 10:53 AM CDT us Rasta Garcia MD LAB BLOOD ORDERABLES Final Res ult [place] [address] [facility] Department [place] [address] * (ABNORMAL) Differential, auto (01/09/2025 4:55 AM CDT) Neutrophil abs 4.56 1.50 - 6.50 K/cumm Comment:Testing performed by : [address] [address] Imm gran abs 0.05 0.00 - 0.10 K/cumm [place] Comment:Testing performed by : [address] [address] Lymphocyte abs 3.68(H) 0.80 - 3.30 K/cumm [place] Comment:Testing performed by : [address] [address] Monocyte abs 1.48(H) 0.20 - 0.80 K/cumm [place] Comment:Testing performed by : [address] [address] Eosinophil abs 0.24 0.00 - 0.50 K/cumm [place] Comment:Testing performed by : [address] [address] Basophil abs 0.06 0.00 - 0.10 K/cumm [place] Comment:Testing performed by : [address] [address] Neutrophil pct 45.3 % [place] Comment: Interpretive Data Percent cell count reference ranges are not reported, since discordance with absolute values may lead to misinterpretation of CBC data. Current Interpretive Data was last revised on 2017. Testing performed by: [address] [address] Imm gran pct 0.5 % [place] Comment: Interpretive Data Percent cell count reference ranges are not reported, since discordance with absolute values may lead to misinterpretation of CBC data. Current Interpretive Data was last revised on 2017. Testing performed by: [address] [address] Lymphocyte pct 36.5 % [facility] Comment: Interpretive Data Percent cell count reference ranges are not reported, since discordance with absolute values may lead to misinterpretation of CBC data. Current Interpretive Data was last revised on 2017. Testing performed by: [address] [address] Monocyte pct 14.7 % [facility] Comment: Interpretive Data Percent cell count reference ranges are not reported, since discordance with absolute values may lead to misinterpretation of CBC data. Current Interpretive Data was last revised on 2017. Testing performed by: [address] [address] Eosinophil pct 2.4 % [facility] Comment: Interpretive Data Percent cell count reference ranges are not reported, since discordance with absolute values may lead to misinterpretation of CBC data. Current Interpretive Data was last revised on 2017. Testing performed by: [address] [address] Basophil pct 0.6 % [facility] Comment: Interpretive Data Percent cell count reference ranges are not reported, since discordance with absolute values may lead to misinterpretation of CBC data. Current Interpretive Data was last revised on 2017. Testing performed by: [address] [address] Blood 01/09/2025 4:55 AM CDT 01/09/2025 4:59 AM CDT us Rasta Garcia MD LAB BLOOD ORDERABLES Final Res ult [place] [address] [facility] Department [place] [address] * (ABNORMAL) CBC with auto differential (01/09/2025 4:55 AM CDT) WBC 10.07(H) 3.80 - 9.90 K/cumm Comment:Testing performed by : [address] [address] Hgb 7.3(L) 13.0 - 17.5 g/dL [place] Comment:Testing performed by : [address] [address] Hct 21.4(L) 38.9 - 50.3 % [place] Comment:Testing performed by : [address] [address] Plt 285 150 - 400 K/cumm [place] Comment:Testing performed by : [address] [address] MPV 10.1 9.1 - 12.3 fL [place] Comment:Testing performed by : [address] [address] RBC 2.44(L) 4.30 - 5.80 M/cumm [place] Comment:Testing performed by : [address] [address] MCV 87.7 81.3 - 96.4 fL [place] Comment:Testing performed by : [address] [address] MCH 29.9 27.1 - 33.3 pg [place] SHETTY Comment:Testing performed by : [address] 25568 MCHC 34.1 32.3 - 35.7 g/dL [place] Comment:Testing performed by : [address] [address] RDW CV 22.1(H) 11.1 - 14.9 % [place] Comment:Testing performed by : [address] [address] RDW SD 67.3(H) 35.7 - 48.1 fL [place] Comment:Testing performed by : [address] [address]16 NRBC abs 0.19(H) 0.00 - 0.01 K/cumm [place] Comment:Testing performed by : [address] [address] Morphologic Screen Results confirmed by manual morphology review. [place] Comment:Testing performed by : [address] [address] Blood 01/09/2025 4:55 AM CDT 01/09/2025 4:59 AM CDT us Rasta Garcia MD LAB BLOOD ORDERABLES Final Res ult [place] [facility] Department of Laboratories [place], [place] [id number] * (ABNORMAL) Reticulocyte Count (01/09/2025 4:55 AM CDT) Retics, absolute 566(H) 20 - 87 K/cumm Comment:Testing performed by : [address] [address] Retics 23.2(H) 0.4 - 2.9 % [place] Comment:Testing performed by : [address] [address] Reticulocyte Hgb 28.1(L) 30.5 - 38.0 pg [place] Comment:Testing performed by : [address] [address] Blood 01/09/2025 4:55 AM CDT 01/09/2025 4:59 AM CDT us Rasta Garcia MD LAB BLOOD ORDERABLES Final Res ult Performing Organization Address [facility] de Phone Number [place] [facility] [place] [address] * eGFR (01/09/2025 4:50 AM CDT) eGFR [...] was last reviewed 2021. Testing performed by: [address] [address] Blood 01/09/2025 4:50 AM CDT 01/09/2025 4:59 AM CDT Rasta Garcia MD LAB BLOOD ORDERABLES Final Res ult Performing Organization Address [facility] Co de Phone Number [facility] [address] [facility] [place] [address] * (ABNORMAL) Basic metabolic panel (01/09/2025 4:50 AM CDT) Pathologist [facility] Sodium 137 135 - 145 mmol/L Comment:Testing performed by : [address] [address] Potassium, pl 3.9 3.3 - 4.9 mmol/L [place] Comment:Testing performed by : [address] [place]., [address] Chloride 102 97 - 110 mmol/L [place] Comment:Testing performed by : [address] [address] CO2 23 22 - 32 mmol/L [place] Comment:Testing performed by : [address] [address] Anion gap 12 2 - 15 mmol/L [place] Comment:Testing performed by : [address] [address] BUN 4(L) 6 - 25 mg/dL [place] Comment:Testing performed by : [address] [address] Creatinine 0.56(L) 0.80 - 1.30 mg/dL [place] Comment:Testing performed by : [address] [address] Glucose 109 70 - 199 mg/dL [facility] Comment: Interpretive Data Fasting glucose >/= 126 [...] was last revised 2022. Testing performed by: [address] [address] Calcium 8.8 8.5 - 10.3 mg/dL [place] Comment:Testing performed by : [address] [address] Blood 01/09/2025 4:50 AM CDT 01/09/2025 4:59 AM CDT us Rasta Garcia MD LAB BLOOD ORDERABLES Final Res ult [place] [address] [facility] Department [place] [address] * CT Abdomen Pelvis WO Contrast (01/08/2025 [...] Anival Cotton M.D. NS: NS Report ID: [id number] Reading Location: [id number] Procedure Note Anival Cotton MD - 01/08/2025 [...] Anival Cotton M.D. NS: NS Report ID: [id number] Reading Location: [place] [address] us Jaya Garcia DO IMG CT PROCEDURES [...] was last reviewed 2021. Testing performed by: [facility], [address] [place] [address], [place]., [address] Blood 01/07/2025 10:4 8 AM CDT 01/07/2025 11:07 AM CDT us Rasta Garcia MD LAB BLOOD ORDERABLES Final Res ult [place] 3502 [facility] Department [place] [address] * (ABNORMAL) CBC with auto differential (01/07/2025 10:48 AM CDT) WBC 8.71 3.80 - 9.90 K/cumm Comment:Testing performed by : [address] [address] Hgb 8.0(L) 13.0 - 17.5 g/dL [place] Comment:Testing performed by : [address] [address] Hct 23.2(L) 38.9 - 50.3 % [place] Comment:Testing performed by : [address] [address]274 Plt 324 150 - 400 K/cumm [place] Comment:Testing performed by : [address] [address] MPV 10.3 9.1 - 12.3 fL [place] Comment:Testing performed by : [address], [address] RBC 2.58(L) 4.30 - 5.80 M/cumm [place] Comment:Testing performed by : [address] [address] MCV 89.9 81.3 - 96.4 fL [place] Comment:Testing performed by : [address] [address] MCH 31.0 27.1 - 33.3 pg [place] Comment:Testing performed by : [address] [address] MCHC 34.5 32.3 - 35.7 g/dL [place] Comment:Testing performed by : [address] [address] RDW CV 21.6(H) 11.1 - 14.9 % [place] Comment:Testing performed by : [address], [address] RDW SD 68.9(H) 35.7 - 48.1 fL [place] Comment:Testing performed by : [address] [address] NRBC abs 0.26(H) 0.00 - 0.01 K/cumm [place] Comment:Testing performed by : [address] [address] Blood 01/07/2025 10:4 8 AM CDT 01/07/2025 11:07 AM CDT Jaya Garcia DO LAB BLOOD ORDERABLES Edited Resu lt - Final [place] 4503 [facility] Department [place] [address] * (ABNORMAL) Manual Differential (01/07/2025 10:48 AM CDT) Differential Manual Comment:Testing performed by : [address] [address] Cells Counted 100 [place] Comment:Testing performed by : [address] [address] Neutrophil abs 3.92 1.50 - 6.50 K/cumm [place] Comment:Testing performed by : [address] [address] Lymphocyte abs 4.44(H) 0.80 - 3.30 K/cumm [place] Comment:Testing performed by : [address] [address] Monocyte abs 0.26 0.20 - 0.80 K/cumm [place] Comment:Testing performed by : [address] [address] Eosinophil abs 0.09 0.00 - 0.50 K/cumm [place] Comment:Testing performed by : [address] [address] Neutrophil pct 45.0 % [place] Comment: Interpretive Data Percent cell count reference ranges are not reported, since discordance with absolute values may lead to misinterpretation of CBC data. Current Interpretive Data was last revised on 2017. Testing performed by: [address], [place]., [address] Lymphocyte pct 51.0 % [facility] Comment: Interpretive Data Percent cell count reference ranges are not reported, since discordance with absolute values may lead to misinterpretation of CBC data. Current Interpretive Data was last revised on 2017. Testing performed by: [address], [place]., [address] Monocyte pct 3.0 % [place] Comment: Interpretive Data Percent cell count reference ranges are not reported, since discordance with absolute values may lead to misinterpretation of CBC data. Current Interpretive Data was last revised on 2017. Testing performed by: [address], [place]., [address] Eosinophil pct 1.0 % [facility] Comment: Interpretive Data Percent cell count reference ranges are not reported, since discordance with absolute values may lead to misinterpretation of CBC data. Current Interpretive Data was last revised on 2017. Testing performed by: [address], [place]., [address] RBC morphology Present(A) [place] Comment:Testing performed by : [address], [place]., [address] Anisocytosis Marked(A) [place] Comment:Testing performed by : [address], [place]., [address] Sickle cells 1-2/HPF(A) [place] Comment:Testing performed by : [address], [place]., [address] Elliptocytes 3-7/HPF(A) [place] Comment:Testing performed by : [address], [place]., [address] Target cells 3-7/HPF(A) [place] Comment:Testing performed by : [address], [place]., [address] Platelet morphology Normal [place] Comment:Testing performed by : [address], [place]., [address] Platelet estimate Adequate [place] Comment:Testing performed by : [address], [place]., [address] Blood 01/07/2025 10:4 8 AM CDT 01/07/2025 11:07 AM CDT us Jaya Garcia DO LAB BLOOD ORDERABLES Final Resul t Performing Organization Address [facility] Co de Phone Number [place] [id number] [facility] [place] [address] * (ABNORMAL) Reticulocyte Count (01/07/2025 10:48 AM CDT) Retics, absolute 559(H) 20 - 87 K/cumm Comment:Testing performed by : [address] [address] Retics 20.7(H) 0.4 - 2.9 % [place] SHETTY Comment:Testing performed by : [address] [address] Reticulocyte Hgb 28.5(L) 30.5 - 38.0 pg [place] SHETTY Comment:Testing performed by : [address] [address] Blood 01/07/2025 10:4 8 AM CDT 01/07/2025 11:07 AM CDT us Rasta Garcia MD LAB BLOOD ORDERABLES Final Res ult Performing Organization Address [facility] de Phone Number [address] [place] [address] * (ABNORMAL) Basic metabolic panel (01/07/2025 10:48 AM CDT) Pathologist [facility] Sodium 141 135 - 145 mmol/L Comment:Testing performed by : [address] [address] Potassium, pl 3.3 3.3 - 4.9 mmol/L [place] SHETTY Comment:Testing performed by : [address] [address] Chloride 104 97 - 110 mmol/L [place] SHETTY Comment:Testing performed by : [address] [address] CO2 25 22 - 32 mmol/L [place] Comment:Testing performed by : [address] [address] Anion gap 12 2 - 15 mmol/L [place] Comment:Testing performed by : [address] [address] BUN 2(L) 6 - 25 mg/dL [place] Comment:Testing performed by : [address] [address] Creatinine 0.50(L) 0.80 - 1.30 mg/dL [place] Comment:Testing performed by : [address] [address] Glucose 162 70 - 199 mg/dL [place] [...] was last revised 2022. Testing performed by: [address] [address] Calcium 8.6 8.5 - 10.3 mg/dL [place] Comment:Testing performed by : [address] [address] Blood 01/07/2025 10:4 8 AM CDT 01/07/2025 11:07 AM CDT us Rasta Garcia MD LAB BLOOD ORDERABLES Final Res ult [place] [address] [facility] Department of Laboratories [place], [place] [id number] * eGFR (01/06/2025 6:52 AM CDT) eGFR [...] was last reviewed 2021. Testing performed by: [address] [address] Blood 01/06/2025 6:52 AM CDT 01/06/2025 7:14 AM CDT us Rasta Garcia MD LAB BLOOD ORDERABLES Final Res ult [place] SHETTY 9644 [facility] Department [place] [address] * (ABNORMAL) Basic metabolic panel (01/06/2025 6:52 AM CDT) Sodium 139 135 - 145 mmol/L Comment:Testing performed by : [address] [address] Potassium, pl 3.7 3.3 - 4.9 mmol/L [place] SHETTY Comment:Testing performed by : [address] [address] Chloride 103 97 - 110 mmol/L [place] SHETTY Comment:Testing performed by : [address] [address] CO2 23 22 - 32 mmol/L [place] SHETT[place] Comment:Testing performed by : [address] [address] Anion gap 13 2 - 15 mmol/L [place] Comment:Testing performed by : [address] [address] BUN 2(L) 6 - 25 mg/dL [place] Comment:Testing performed by : [address] [address] Creatinine 0.50(L) 0.80 - 1.30 mg/dL [place] Comment:Testing performed by : [address] [address] Glucose 95 70 - 199 mg/dL [place] [...] was last revised 2022. Testing performed by: [address] [address] Calcium 8.6 8.5 - 10.3 mg/dL [place] Comment:Testing performed by : [address] [address] Blood 01/06/2025 6:52 AM CDT 01/06/2025 7:14 AM CDT us Rasta Garcia MD LAB BLOOD ORDERABLES Final Res ult [place] 12[address] [facility] Department [place] [address] * eGFR (01/04/2025 7:27 AM [...] was last reviewed 2021. Testing performed by: [address] [address] Blood 01/04/2025 7:27 AM CDT 01/04/2025 7:34 AM CDT us Rasta Garcia MD LAB BLOOD ORDERABLES Final Res ult [place] [facility] Department [place] [address] * (ABNORMAL) CBC with auto differential (01/04/2025 7:27 AM CDT) WBC 10.50(H) 3.80 - 9.90 K/cumm Comment:Testing performed by : [address] [address] Hgb 8.4(L) 13.0 - 17.5 g/dL [place] SHETTY Comment:Testing performed by : [address] [address] Hct 25.3(L) 38.9 - 50.3 % [place] SHETTY Comment:Testing performed by : [address] [address]215 Plt 299 150 - 400 K/cumm [place] SHETTY Comment:Testing performed by : [address] [address] MPV 9.8 9.1 - 12.3 fL [place] SHETTY Comment:Testing performed by : [address] [address] RBC 2.76(L) 4.30 - 5.80 M/cumm [place] SHETTY Comment:Testing performed by : [address] [address] MCV 91.7 81.3 - 96.4 fL [place] Comment:Testing performed by : [address] [address] MCH 30.4 27.1 - 33.3 pg [place] Comment:Testing performed by : [address] [address]271 MCHC 33.2 32.3 - 35.7 g/dL [place] Comment:Testing performed by : [address] [address] RDW CV 23.3(H) 11.1 - 14.9 % [place] Comment:Testing performed by : [address], [address] RDW SD 74.0(H) 35.7 - 48.1 fL [place] Comment:Testing performed by : [address] [address] NRBC abs 0.21(H) 0.00 - 0.01 K/cumm [place] Comment:Testing performed by : [address] [address] Blood 01/04/2025 7:27 AM CDT 01/04/2025 7:34 AM CDT us Rasta Garcia MD LAB BLOOD ORDERABLES Edited Re sult - Final [place] 9365 [facility] Department [place] [address] * (ABNORMAL) Manual Differential (01/04/2025 7:27 AM CDT) Differential Manual Comment:Testing performed by : [address] [address] Cells Counted 100 [facility] Comment:Testing performed by : [facility], [address] [place] [address], [place]., [address] Neutrophil abs 3.26 1.50 - 6.50 K/cumm [place] Comment:Testing performed by : [address], [place]., [address] Lymphocyte abs 5.88(H) 0.80 - 3.30 K/cumm [place] Comment:Testing performed by : [address], [place]., [address] Monocyte abs 0.63 0.20 - 0.80 K/cumm [facility] Comment:Testing performed by : [address], [place]., [address] Eosinophil abs 0.53(H) 0.00 - 0.50 K/cumm [place] Comment:Testing performed by : [address], [place]., [address] Basophil abs 0.21(H) 0.00 - 0.10 K/cumm [facility] Comment:Testing performed by : [address] [address] Neutrophil pct 31.0 % [facility] Comment: Interpretive Data Percent cell count reference ranges are not reported, since discordance with absolute values may lead to misinterpretation of CBC data. Current Interpretive Data was last revised on 2017. Testing performed by: [address] [address] Lymphocyte pct 56.0 % [facility] Comment: Interpretive Data Percent cell count reference ranges are not reported, since discordance with absolute values may lead to misinterpretation of CBC data. Current Interpretive Data was last revised on 2017. Testing performed by: [address] [address] Monocyte pct 6.0 % [facility] Comment: Interpretive Data Percent cell count reference ranges are not reported, since discordance with absolute values may lead to misinterpretation of CBC data. Current Interpretive Data was last revised on 2017. Testing performed by: [address] [address] Eosinophil pct 5.0 % [facility] Comment: Interpretive Data Percent cell count reference ranges are not reported, since discordance with absolute values may lead to misinterpretation of CBC data. Current Interpretive Data was last revised on 2017. Testing performed by: [address] [address] Basophil pct 2.0 % [place] Comment: Interpretive Data Percent cell count reference ranges are not reported, since discordance with absolute values may lead to misinterpretation of CBC data. Current Interpretive Data was last revised on 2017. Testing performed by: [address], [place]., [address] Vacuolation Present(A) [place] Comment:Testing performed by : [address] [address] RBC morphology Present(A) [place] Comment:Testing performed by : [address] [address] Polychromasia 3-7/HPF(A) [place] Comment:Testing performed by : [address] [address] Anisocytosis Marked(A) [place] Comment:Testing performed by : [address], [place]., [address] Macrocytes 3-7/HPF(A) [place] Comment:Testing performed by : [address] [address] Schistocytes 1-2/HPF(A) [place] Comment:Testing performed by : [address] [address] Sickle cells 3-7/HPF(A) [place] Comment:Testing performed by : [address] [address] Platelet estimate Adequate [place] Comment:Testing performed by : [address] [address] Giant platelets Present(A) [place] Comment:Testing performed by : [address] [address] Blood 01/04/2025 7:27 AM CDT 01/04/2025 7:34 AM CDT us Rasta Garcia MD LAB BLOOD ORDERABLES Final Res ult Performing Organization Address City/[facility]/ZIP Co de Phone Number [place] [address] [place] [address] * (ABNORMAL) Reticulocyte Count (01/04/2025 7:27 AM CDT) [facility] Retics, absolute 532(H) 20 - 87 K/cumm Comment:Testing performed by : [address] [address] Retics 19.3(H) 0.4 - 2.9 % [place] Comment:Testing performed by : [address] [address] Reticulocyte Hgb 34.7 30.5 - 38.0 pg [place] SHETTY Comment:Testing performed by : [address] [address] Blood 01/04/2025 7:27 AM CDT 01/04/2025 7:34 AM CDT us Rasta Garcia MD LAB BLOOD ORDERABLES Final Res ult Performing Organization Address City/[facility] Co de Phone Number [place] [address] [place] [address] * (ABNORMAL) Basic metabolic panel (01/04/2025 7:27 AM CDT) [facility] Sodium 137 135 - 145 mmol/L Comment:Testing performed by : [address] [address] Potassium, pl 3.5 3.3 - 4.9 mmol/L [place] SHETTY Comment:Testing performed by : [address] [address] Chloride 100 97 - 110 mmol/L [place] SHETT[facility] Comment:Testing performed by : [address] [address] CO2 25 22 - 32 mmol/L [place] SHE[facility] Comment:Testing performed by : [address] [address] Anion gap 12 2 - 15 mmol/L [place] SHETT[facility] Comment:Testing performed by : [address] [address] BUN 2(L) 6 - 25 mg/dL [place] Comment:Testing performed by : [address] [address] Creatinine 0.49(L) 0.80 - 1.30 mg/dL [place] Comment:Testing performed by : [address] [address] Glucose 106 70 - 199 mg/dL [facility] [...] was last revised 2022. Testing performed by: [address] [address] Calcium 9.1 8.5 - 10.3 mg/dL [facility] Comment:Testing performed by : [address] [address] Blood 01/04/2025 7:27 AM CDT 01/04/2025 7:34 AM CDT us Rasta Garcia MD LAB BLOOD ORDERABLES Final Res ult [facility] [address] [facility] Department [place] [address] * (ABNORMAL) Blood smear review (01/03/2025 7:30 AM CDT) RBC morphology Present(A) Comment:Testing performed by : [address] [address] Polychromasia 3-7/HPF(A) [facility] Comment:Testing performed by : [address], [place]., [address] Anisocytosis Slight(A) [facility] Comment:Testing performed by : [address] [address] Poikilocytosis Slight(A) [facility] Comment:Testing performed by : [address], [place]., [address] Sickle cells 1-2/HPF(A) [facility] Comment:Testing performed by : [address], [place]., [address] Elliptocytes 3-7/HPF(A) [facility] Comment:Testing performed by : [address], [place]., [address] Target cells 3-7/HPF(A) [facility] Comment:Testing performed by : [address], [place]., [address] Platelet estimate Adequate [facility] Comment:Testing performed by : [address] [address] Blood 01/03/2025 7:30 AM CDT 01/03/2025 7:44 AM CDT us Rasta Garcia MD LAB BLOOD ORDERABLES Final Res ult [facility] Department of Laboratories [place], [place] [id number] * eGFR (01/03/2025 7:30 AM CDT) eGFR [...] was last reviewed 2021. Testing performed by: [address] [address] Blood 01/03/2025 7:30 AM CDT 01/03/2025 7:44 AM CDT us Rasta Garcia MD LAB BLOOD ORDERABLES Final Res ult [facility] Department [place] [address] * (ABNORMAL) Differential, auto (01/03/2025 7:30 AM CDT) Neutrophil abs 5.76 1.50 - 6.50 K/cumm Comment:Testing performed by : [address] [address] Imm gran abs 0.13(H) 0.00 - 0.10 K/cumm [facility] Comment:Testing performed by : [address] [address] Lymphocyte abs 3.10 0.80 - 3.30 K/cumm [facility] Comment:Testing performed by : [address] [address] Monocyte abs 0.98(H) 0.20 - 0.80 K/cumm [facility] Comment:Testing performed by : [address] [address] Eosinophil abs 0.21 0.00 - 0.50 K/cumm [facility] Comment:Testing performed by : [address] [address] Basophil abs 0.07 0.00 - 0.10 K/cumm [facility] Comment:Testing performed by : [address] [address] Neutrophil pct 56.2 % [facility] Comment: Interpretive Data Percent cell count reference ranges are not reported, since discordance with absolute values may lead to misinterpretation of CBC data. Current Interpretive Data was last revised on 2017. Testing performed by: [address] [address] Imm gran pct 1.3 % [facility] Comment: Interpretive Data Percent cell count reference ranges are not reported, since discordance with absolute values may lead to misinterpretation of CBC data. Current Interpretive Data was last revised on 2017. Testing performed by: [address] [address] Lymphocyte pct 30.2 % [facility] Comment: Interpretive Data Percent cell count reference ranges are not reported, since discordance with absolute values may lead to misinterpretation of CBC data. Current Interpretive Data was last revised on 2017. Testing performed by: [address] [address] Monocyte pct 9.6 % [facility] Comment: Interpretive Data Percent cell count reference ranges are not reported, since discordance with absolute values may lead to misinterpretation of CBC data. Current Interpretive Data was last revised on 2017. Testing performed by: [address] [address] Eosinophil pct 2.0 % [facility] Comment: Interpretive Data Percent cell count reference ranges are not reported, since discordance with absolute values may lead to misinterpretation of CBC data. Current Interpretive Data was last revised on 2017. Testing performed by: [address] [address] Basophil pct 0.7 % [facility] Comment: Interpretive Data Percent cell count reference ranges are not reported, since discordance with absolute values may lead to misinterpretation of CBC data. Current Interpretive Data was last revised on 2017. Testing performed by: [address] [address] Blood 01/03/2025 7:30 AM CDT 01/03/2025 7:44 AM CDT us Rasta Garcia MD LAB BLOOD ORDERABLES Final Res ult [facility] [address] [facility] Department [place] [address] * (ABNORMAL) CBC with auto differential (01/03/2025 7:30 AM CDT) WBC 10.25(H) 3.80 - 9.90 K/cumm Comment:Testing performed by : [address] [address] Hgb 7.7(L) 13.0 - 17.5 g/dL [facility] Comment:Testing performed by : [address], [address] Hct 22.5(L) 38.9 - 50.3 % [facility] Comment:Testing performed by : [address] [address] Plt 350 150 - 400 K/cumm [facility] Comment:Testing performed by : [address] [address] MPV 10.1 9.1 - 12.3 fL [facility] Comment:Testing performed by : [address], [address] RBC 2.55(L) 4.30 - 5.80 M/cumm [facility] Comment:Testing performed by : [address] [address] MCV 88.2 81.3 - 96.4 fL [facility] Comment:Testing performed by : [address] [address] MCH 30.2 27.1 - 33.3 pg [facility] Comment:Testing performed by : [address], [address] MCHC 34.2 32.3 - 35.7 g/dL [facility] Comment:Testing performed by : [address] [address] RDW CV 22.1(H) 11.1 - 14.9 % [facility] Comment:Testing performed by : [address], [address] RDW SD 67.4(H) 35.7 - 48.1 fL [facility] SHETTY Comment:Testing performed by : [facility], [address] [place] [address]., [address] NRBC abs 0.35(H) 0.00 - 0.01 K/cumm [facility] SHETTY Comment:Testing performed by : [address] [address] Blood 01/03/2025 7:30 AM CDT 01/03/2025 7:44 AM CDT us Rasta Garcia MD LAB BLOOD ORDERABLES Edited Re sult - Final Performing Organization Address [facility] Co de Phone Number [facility] [address] [place] [address] * (ABNORMAL) Reticulocyte Count (01/03/2025 7:30 AM CDT) [facility] Retics, absolute 471(H) 20 - 87 K/cumm Comment:Testing performed by : [facility], [address] [place] [address]., [address] Retics 18.5(H) 0.4 - 2.9 % [facility] SHETTY Comment:Testing performed by : [address] [address] Reticulocyte Hgb 31.1 30.5 - 38.0 pg [facility] SHETTY Comment:Testing performed by : [address] [address] Blood 01/03/2025 7:30 AM CDT 01/03/2025 7:44 AM CDT us Rasta Garcia MD LAB BLOOD ORDERABLES Final Res ult Performing Organization Address [facility] de Phone Number KENYETTA[address] [place] [address] * (ABNORMAL) Basic metabolic panel (01/03/2025 7:30 AM CDT) Sodium 138 135 - 145 mmol/L Comment:Testing performed by : [facility], [address] [place] [address]., [address] Potassium, pl 3.5 3.3 - 4.9 mmol/L [facility] Comment:Testing performed by : [address], [place]., [address] Chloride 101 97 - 110 mmol/L [facility] Comment:Testing performed by : [address], [place]., [address] CO2 26 22 - 32 mmol/L [facility] Comment:Testing performed by : [address], [place]., [address] Anion gap 11 2 - 15 mmol/L [facility] Comment:Testing performed by : [address] [address] BUN <2(L) 6 - 25 mg/dL [facility] Comment:Testing performed by : [address], [place]., [address] Creatinine 0.50(L) 0.80 - 1.30 mg/dL [facility] Comment:Testing performed by : [address] [address] Glucose 106 70 - 199 mg/dL [facility] Comment: Interpretive Data Fasting glucose >/= [...] was last revised 2022. Testing performed by: [address] [address] Calcium 8.8 8.5 - 10.3 mg/dL [facility] Comment:Testing performed by : [address], [place]., [address] Blood 01/03/2025 7:30 AM CDT 01/03/2025 7:44 AM CDT us Rasta Garcia MD LAB BLOOD ORDERABLES Final Res ult Performing Organization Address [facility] Co de Phone Number [facility] [address] [place] [address] * Troponin T high-sensitivity 4-hour (01/01/2025 4:09 AM CDT) Trop T hs <6 <=22 ng/L Comment: Interpretive Data For further hscTnT resources including the diagnostic algorithm and an aid in interpretation, copy and paste this link: https://nrl.testcatalog.org/show/hsTrop Current Interpretive Data last revised 2020. Testing performed by: [facility], [address] [place] [address]., [address] Trop T hs delta -2 ng/L [facility] Comment:Testing performed by : [facility], [address] [place] [address]., [address] Trop T hs interp Insignificant [facility] Comment:Testing performed by : [facility], [address] [place] [address]., [address] Blood 01/01/2025 4:09 AM CDT 01/01/2025 4:16 AM CDT us Bill Carrasquillo DO LAB BLOOD ORDERABLES Final Res ult Performing Organization Address [facility] Co de Phone Number [facility] [address] [place] [address] * XR Chest 1 Vw Portable (01/01/2025 [...] Andrew Stubbs M.D. AR: TOREY Report ID: [id number] Reading Location: [place] [address] Procedure Note Andrew Stubbs MD - 01/01/2025 [...] Andrew Stubbs M.D. AR: TOREY Report ID: [id number] Reading Location: [id number] us Bill Carrasquillo DO IMG XR PROCEDURES Final Result * Troponin T high-sensitivity series (baseline, 2hr, 4hr, 6hr) (12/31/2024 11:57 PM CDT) Trop T hs 8 <=22 ng/L Comment: Interpretive Data For further hscTnT resources including the diagnostic algorithm and an aid in interpretation, copy and paste this link: https://nrl.testcatalog.org/show/hsTrop Current Interpretive Data last revised 2020. Testing performed by: [address] [address] Blood 12/31/2024 11:5 7 PM CDT 01/01/2025 12:09 AM CDT Bill Carrasquillo DO LAB BLOOD ORDERABLES Final Res ult Performing Organization Address City/[facility]/ZIP Co de Phone Number [facility] [address] [place] [address] * eGFR (12/31/2024 11:57 PM CDT) eGFR [...] was last reviewed 2021. Testing performed by: [address] [address] Blood 12/31/2024 11:5 7 PM CDT 01/01/2025 12:09 AM CDT us Bill Jose Rafaelik DO LAB BLOOD ORDERABLES Final Res ult Performing Organization Address City/[facility]/ZIP Co de Phone Number [facility] [address] [place] [address] * (ABNORMAL) Differential, auto (12/31/2024 11:57 PM CDT) Neutrophil abs 6.19 1.50 - 6.50 K/cumm Comment:Testing performed by : [address] [address] Imm gran abs 0.07 0.00 - 0.10 K/cumm [facility] Comment:Testing performed by : [address] [address] Lymphocyte abs 4.31(H) 0.80 - 3.30 K/cumm [facility] Comment:Testing performed by : [address] [address] Monocyte abs 1.49(H) 0.20 - 0.80 K/cumm [facility] Comment:Testing performed by : [address] [address] Eosinophil abs 0.14 0.00 - 0.50 K/cumm [facility] Comment:Testing performed by : [address] [address] Basophil abs 0.08 0.00 - 0.10 K/cumm [facility] Comment:Testing performed by : [address] [address] Neutrophil pct 50.4 % [facility] Comment: Interpretive Data Percent cell count reference ranges are not reported, since discordance with absolute values may lead to misinterpretation of CBC data. Current Interpretive Data was last revised on 2017. Testing performed by: [address] [address] Imm gran pct 0.6 % [facility] Comment: Interpretive Data Percent cell count reference ranges are not reported, since discordance with absolute values may lead to misinterpretation of CBC data. Current Interpretive Data was last revised on 2017. Testing performed by: [address] [address] Lymphocyte pct 35.1 % [facility] Comment: Interpretive Data Percent cell count reference ranges are not reported, since discordance with absolute values may lead to misinterpretation of CBC data. Current Interpretive Data was last revised on 2017. Testing performed by: [address] [address] Monocyte pct 12.1 % [facility] Comment: Interpretive Data Percent cell count reference ranges are not reported, since discordance with absolute values may lead to misinterpretation of CBC data. Current Interpretive Data was last revised on 2017. Testing performed by: [address] [address] Eosinophil pct 1.1 % [facility] Comment: Interpretive Data Percent cell count reference ranges are not reported, since discordance with absolute values may lead to misinterpretation of CBC data. Current Interpretive Data was last revised on 2017. Testing performed by: [address] [address] Basophil pct 0.7 % [facility] Comment: Interpretive Data Percent cell count reference ranges are not reported, since discordance with absolute values may lead to misinterpretation of CBC data. Current Interpretive Data was last revised on 2017. Testing performed by: [address] [address] Blood 12/31/2024 11:5 7 PM CDT 01/01/2025 12:09 AM CDT us Bill Carrasquillo DO LAB BLOOD ORDERABLES Final Res ult [facility] [address] [facility] Department of Laboratories [place], [place] [id number] * (ABNORMAL) CBC with auto differential (12/31/2024 11:57 PM CDT) WBC 12.28(H) 3.80 - 9.90 K/cumm Comment:Testing performed by : [address] [address] Hgb 7.8(L) 13.0 - 17.5 g/dL [facility] SHETTY Comment:Testing performed by : [address] [address] Hct 23.2(L) 38.9 - 50.3 % [facility] SHETTY Comment:Testing performed by : [address] [address] Plt 277 150 - 400 K/cumm [facility] SHETTY Comment:Testing performed by : [address] [address] MPV 10.0 9.1 - 12.3 fL [facility] SHETTY Comment:Testing performed by : [address] [address] RBC 2.65(L) 4.30 - 5.80 M/cumm [facility] SHETTY Comment:Testing performed by : [address] [address] MCV 87.5 81.3 - 96.4 fL [facility] SHETTY Comment:Testing performed by : [address] [address] MCH 29.4 27.1 - 33.3 pg [facility] SHETTY Comment:Testing performed by : [address] [address] MCHC 33.6 32.3 - 35.7 g/dL [facility] Comment:Testing performed by : [address] [address] RDW CV 20.6(H) 11.1 - 14.9 % [facility] Comment:Testing performed by : [address], [address] RDW SD 64.0(H) 35.7 - 48.1 fL [facility] Comment:Testing performed by : [address] [address] NRBC abs 0.06(H) 0.00 - 0.01 K/cumm [facility] SHETTY Comment:Testing performed by : [address] [address] Morphologic Screen Results confirmed by manual morphology review. [facility] Comment:Testing performed by : [address] [address] Blood 12/31/2024 11:5 7 PM CDT 01/01/2025 12:09 AM CDT Bill Carrasquillo DO LAB BLOOD ORDERABLES Final Res ult Performing Organization Address [facility] Co de Phone Number [facility] [place] [address] * (ABNORMAL) Reticulocyte Count (12/31/2024 11:57 PM CDT) Pathologist [facility] Retics, absolute 410(H) 20 - 87 K/cumm Comment:Testing performed by : [address] [address] Retics 15.5(H) 0.4 - 2.9 % [facility] SHETTY Comment:Testing performed by : [address] [address] Reticulocyte Hgb 30.8 30.5 - 38.0 pg [facility] SHETTY Comment:Testing performed by : [address] [address] Blood 12/31/2024 11:5 7 PM CDT 01/01/2025 12:09 AM CDT us [place] LAB BLOOD ORDERABLES Final Res ult Performing Organization Address [facility] Co de Phone Number [facility] [address] [place] [address] * (ABNORMAL) Comprehensive metabolic panel (12/31/2024 11:57 PM CDT) [facility] Sodium 137 135 - 145 mmol/L Comment:Testing performed by : [address] [address] Potassium, pl 3.2(L) 3.3 - 4.9 mmol/L [facility] SHETTY Comment:Testing performed by : [address] [address] Chloride 103 97 - 110 mmol/L [facility] SHETTY Comment:Testing performed by : [address] [address] CO2 23 22 - 32 mmol/L [facility] SHETT[facility] Comment:Testing performed by : [address] [address] Anion gap 11 2 - 15 mmol/L [facility] SHETTY Comment:Testing performed by : [address] [address] BUN 4(L) 6 - 25 mg/dL [facility] Comment:Testing performed by : [address] [address] Creatinine 0.60(L) 0.80 - 1.30 mg/dL [facility] Comment:Testing performed by : [address] [address] Glucose 115 70 - 199 mg/dL [facility] Comment: Interpretive Data Fasting glucose >/= [...] was last revised 2022. Testing performed by: [address] [address] Calcium 9.1 8.5 - 10.3 mg/dL [facility] Comment:Testing performed by : [address] [address] Bilirubin, total 5.6(H) 0.1 - 1.2 mg/dL [facility] Comment:Testing performed by : [address] [address] Protein, pl 7.9 6.5 - 8.5 g/dL [facility] Comment:Testing performed by : [address] [address] Albumin 4.1 3.5 - 5.0 g/dL [facility] Comment:Testing performed by : [address] [address] Alk phos 353(H) 40 - 130 Units/L [facility] Comment:Testing performed by : [address] [address] ALT 27 7 - 55 Units/L [facility] Comment:Testing performed by : [facility], [address] [place] [address]., [address] AST 53(H) 10 - 50 Units/L [facility] Comment:Testing performed by : [facility], [address] [place] [address]., [address] Blood 12/31/2024 11:5 7 PM CDT 01/01/2025 12:09 AM CDT Bill Carrasquillo DO LAB BLOOD ORDERABLES Final Res ult [facility] [address] [facility] Department [place] [address] * ECG 12 lead (12/31/2024 11:51 PM CDT) Ventricular Rate EKG/Min 107 BPM [facility] Atrial Rate 107 BPM [facility] ND-Interval (MSEC) 178 ms [facility] QRS-Interval (MSEC) 80 ms [facility] QT-Interval (MSEC) 344 ms [facility] QTc 459 ms [facility] P [place] 51 degrees [facility] R [place] 4 degrees [facility] T [place] 15 degrees [facility] Diagnosis Sinus tachycardia Otherwise normal ECG When compared with ECG of 22-DEC-2024 13:08, Nonspecific T wave abnormality no longer evident in Lateral leads Confirmed by Rodrigue Fonseca M.D. ([id number]) on 01/03/2025 8:51:05 AM [facility] 12/31/2024 11:5 1 PM CDT 01/03/2025 8:51 AM CDT Bill Carrasquillo DO ECG ORDERABLES Final Result Performing Organization Address City/[facility]/ZIP Co de Phone Number [employer] [facility] * CT Chest PE (CTA) W Contrast (12/23/2024 5:57 PM CDT) Anatomical Region Laterality Modality Body N/A Computed Tomogra phy 12/23/2024 6:07 PM CDT Impressions 12/23/2024 6:07 PM CDT 1. No large occlusive central pulmonary embolism. 2. No acute process in the chest on this motion degraded exam. Electronically signed by: Tinana Shepard M.D. Narrative 12/23/2024 6:07 PM CDT [...] by: Tianna Shepard M.D. Elijah Ramirez MD [facility] [place] PROCEDURES Final Result * Respiratory pathogen panel Nasopharyngeal (12/23/2024 4:03 PM CDT) Pathologist [facility] Influenza A RNA Not Detected Not Detected [facility] Influenza B RNA Not Detected Not Detected [facility] RSV RNA Not Detected Not Detected [facility] COVID-19 RNA Not Detected Not Detected [facility] Coronavirus 229E RNA Not Detected Not Detected [facility] Coronavirus HKU1 RNA Not Detected Not Detected [facility] Coronavirus NL63 RNA Not Detected Not Detected [facility] Coronavirus OC43 RNA Not Detected Not Detected [facility] Adenovirus DNA Not Detected Not Detected [facility] Metapneumovirus RNA Not Detected Not Detected [facility] Rhinovirus/Enterov irus RNA Not Detected Not Detected [facility] Parainfluenza 1 RNA Not Detected Not Detected [facility] Parainfluenza 2 RNA Not Detected Not Detected [facility] Parainfluenza 3 RNA Not Detected Not Detected [facility] Parainfluenza 4 RNA Not Detected Not Detected [facility] B. pertussis DNA Not Detected Not Detected [facility] B. parapertussis DNA Not Detected Not Detected [facility] C. pneumoniae DNA Not Detected Not Detected [facility] M. pneumoniae DNA Not Detected Not Detected [facility] Comment: Interpretive Data The [employer] FilmArray Respiratory Panel (RP2.1) assay is a [...] assay has FDA clearance for testing of [employer] swabs. The performance characteristics of this assay have been determined by [facility]. Current interpretive data was last revised on 2020. Nasopharyngeal 12/23/2024 4: 03 PM CDT 12/23/2024 4:10 PM CDT Narrative [facility] - 12/23/2024 5:11 PM CDT Is the Patient experiencing symptoms consistent with COVID?->Yes Surveillance testing for transplant patient?->No us Elijah Ramirez MD LAB MICROBIOLOGY - GENER AL ORDERABLES Final Result [facility] [address] Department of Laboratories [place], [place] [id number] MBC * XR Chest Pa Lateral 2 Vw [...] noted. Electronically signed by: Tianna Shepard M.D. Elijah Ramirez MD IMG XR PROCEDURES Final [...] of Race in Diagnosing Kidney Disease, JOSE MANUELSArchana 2020). The CKD-EPI equation should not be used for patients with unstable renal function and has not been validated in children and those over 70. Current interpretive data was last reviewed 2021. Blood 12/23/2024 2:44 PM CDT 12/23/2024 2:56 PM CDT us Steve García DO LAB BLOOD ORDERABLES Final Result [facility] [address] Department [place] [address] * (ABNORMAL) Differential, auto (12/23/2024 2:44 PM CDT) Neutrophil abs 4.91 1.50 - 6.50 K/cumm Imm gran abs 0.09 0.00 - 0.10 K/cumm [facility] Lymphocyte abs 3.14 0.80 - 3.30 K/cumm [facility] Monocyte abs 1.13(H) 0.20 - 0.80 K/cumm [facility] Eosinophil abs 0.17 0.00 - 0.50 K/cumm [facility] Basophil abs 0.07 0.00 - 0.10 K/cumm [facility] Neutrophil pct 51.7 % [facility] Comment: Interpretive Data Percent cell count reference ranges are not reported, since discordance with absolute values may lead to misinterpretation of CBC data. Current Interpretive Data was last revised on 2017. Imm gran pct 0.9 % [facility] Comment: Interpretive Data Percent cell count reference ranges are not reported, since discordance with absolute values may lead to misinterpretation of CBC data. Current Interpretive Data was last revised on 2017. Lymphocyte pct 33.0 % [facility] Comment: Interpretive Data Percent cell count reference ranges are not reported, since discordance with absolute values may lead to misinterpretation of CBC data. Current Interpretive Data was last revised on 2017. Monocyte pct 11.9 % [facility] Comment: Interpretive Data Percent cell count reference ranges are not reported, since discordance with absolute values may lead to misinterpretation of CBC data. Current Interpretive Data was last revised on 2017. Eosinophil pct 1.8 % [facility] Comment: Interpretive Data Percent cell count reference ranges are not reported, since discordance with absolute values may lead to misinterpretation of CBC data. Current Interpretive Data was last revised on 2017. Basophil pct 0.7 % [facility] Comment: Interpretive Data Percent cell count reference ranges are not reported, since discordance with absolute values may lead to misinterpretation of CBC data. Current Interpretive Data was last revised on 2017. Blood 12/23/2024 2:44 PM CDT 12/23/2024 2:56 PM CDT us Steve García DO LAB BLOOD ORDERABLES Final Result [facility] [address] Department of Laboratories [place] [address] * (ABNORMAL) Urinalysis reflex to microscopic and culture Urine (12/23/2024 2:44 PM CDT) Color, ur Yellow Yellow Clarity, ur Clear Clear [facility] Specific gravity, ur 1.010 1.003 - 1.030 [facility] pH, urine 7.0 [facility] Comment: Interpretive Data U rine pH is affected by diet, medications, systemic acid-base disturbances, and renal tubular function. pH may affect urinary stone formation. For example, urine pH below 6.0 may help reduce the tendency for calcium phosphate stones and pH greater than 6.0 may reduce the tendency for uric acid stone formation. Source: [facility] [employer] Current Interpretive Data was last revised on 2017 Protein, ur ql Negative Negative [facility] Glucose, ur ql Negative Negative [facility] Ketones, ur Negative Negative [facility] Bilirubin, ur Negative Negative [facility] Blood, ur Negative Negative [facility] Urobilinogen, ur 4.0(A) <2.0 mg/dL [facility] Nitrite, ur Negative Negative [facility] Leukocyte esterase, ur Negative Negative [facility] UA reflex comment Reflex conditions for microscopic UA and culture not met. [facility] Urine 12/23/2024 2:44 PM CDT 12/23/2024 2:45 PM CDT us Elijah Ramirez MD LAB MICROBIOLOGY - GENER AL ORDERABLES Final Result [facility] [address] [place] [address] * (ABNORMAL) CBC with auto differential (12/23/2024 2:44 PM CDT) WBC 9.51 3.80 - 9.90 K/cumm Hgb 8.4(L) 13.0 - 17.5 g/dL [facility] Hct 25.6(L) 38.9 - 50.3 % [facility] Plt 343 150 - 400 K/cumm [facility] MPV 10.3 9.1 - 12.3 fL [facility] RBC 2.84(L) 4.30 - 5.80 M/cumm [facility] MCV 90.1 81.3 - 96.4 fL [facility] MCH 29.6 27.1 - 33.3 pg [facility] MCHC 32.8 32.3 - 35.7 g/dL [facility] RDW CV 19.9(H) 11.1 - 14.9 % [facility] RDW SD 64.4(H) 35.7 - 48.1 fL [facility] NRBC abs 0.10(H) 0.00 - 0.01 K/cumm [facility] Morphologic Screen Results confirmed by manual morphology review. [facility] Blood 12/23/2024 2:44 PM CDT 12/23/2024 2:56 PM CDT us Elijah Ramirez MD LAB BLOOD ORDERABLES Rashaun missy Result - Final [facility] [address] [place] [address] * (ABNORMAL) Reticulocyte Count (12/23/2024 2:44 PM CDT) [facility] Retics, absolute 450(H) 20 - 87 K/cumm Comment:Retic verified by di lution. Retics 14.5(H) 0.4 - 2.9 % [facility] Comment:Retic verified by di lution. Reticulocyte Hgb 32.5 30.5 - 38.0 pg [facility] Blood 12/23/2024 2:44 PM CDT 12/23/2024 2:56 PM CDT us Elijah Ramirez MD LAB BLOOD ORDERABLES Fin al Result [facility] [address] Department [place] [address] * (ABNORMAL) Comprehensive metabolic panel (12/23/2024 2:44 PM CDT) [facility] Sodium 138 135 - 145 mmol/L Potassium, pl 3.6 3.3 - 4.9 mmol/L [facility] Chloride 104 97 - 110 mmol/L [facility] CO2 24 22 - 32 mmol/L [facility] Anion gap 10 2 - 15 mmol/L [facility] BUN 3(L) 6 - 25 mg/dL [facility] Creatinine 0.51(L) 0.80 - 1.30 mg/dL [facility] Glucose 93 70 - 199 mg/dL [facility] Comment: Interpretive Data Fasting glucose [...] 2022. Calcium 9.0 8.5 - 10.3 mg/dL [facility] Bilirubin, total 5.9(H) 0.1 - 1.2 mg/dL [facility] Protein, pl 7.5 6.5 - 8.5 g/dL [facility] Albumin 3.9 3.5 - 5.0 g/dL [facility] Alk phos 392(H) 40 - 130 Units/L [facility] ALT 45 7 - 55 Units/L [facility] AST 71(H) 10 - 50 Units/L [facility] Blood 12/23/2024 2:44 PM CDT 12/23/2024 2:56 PM CDT Elijah Ramirez MD LAB BLOOD ORDERABLES Fin al Result Performing Organization Address [facility] Co de Phone Number [facility] [address] Department [place] [address] * ECG 12 lead (12/23/2024 12:42 PM CDT) 12/23/2024 12:4 2 PM CDT Narrative [facility] - 12/23/2024 1:33 PM CDT Vent Rate: 106 bpm RR Interval: 561 msec ND Interval: 160 msec QRS Duration: 90 msec QT Interval: 368 msec QTC Interval: 430 msec P-R-T [place]: 64 - 31 - 15 degrees IMPRESSION: SINUS TACHYCARDIA ABNORMAL RHYTHM ECG Electronically Signed By: Celestino Dunlap [facility] Card us Elijah Ramirez MD ECG ORDERABLES Final Re sult Performing Organization Address [facility] Co de Phone Number [facility] [employer] [facility] * XR Chest 1 Vw [...] Gina Betancur D.O. PS: PS Report ID: [id number] Reading Location: [place] [address] Procedure Note Gina Betancur, DO - 12/22/2024 [...] Gina Betancur D.O. PS: PS Report ID: [id number] Reading Location: [place] [address] Cheyanne Johnson [employer] IMG XR PROCEDURES Final Result * ECG 12 lead (12/22/2024 1:08 PM CDT) Ventricular Rate EKG/Min 97 BPM [facility] Atrial Rate 97 BPM [facility] ND-Interval (MSEC) 176 ms [facility] QRS-Interval (MSEC) 88 ms [facility] QT-Interval (MSEC) 368 ms [facility] QTc 467 ms [facility] P [place] 59 degrees [facility] R [place] 11 degrees [facility] T [place] 49 degrees [facility] Diagnosis Normal sinus rhythm Nonspecific T wave abnormality Prolonged QT When compared with ECG of 07-DEC-2024 21:21, No significant change was found Confirmed by SULTAN PARHAM M.D. ([id number]) on 12/22/2024 5:48:18 PM [facility] 12/22/2024 1:08 PM CDT 12/22/2024 5:48 PM CDT us Cheyanne Johnson [employer] ECG ORDERABLES Final Re sult Performing Organization Address City/[facility]/ZIP Co de Phone Number [facility] * (ABNORMAL) Blood smear review (12/22/2024 12:19 PM CDT) Pathologist [facility] RBC morphology Present(A) Comment:Testing performed by : [address] [address] Elliptocytes 3-7/HPF(A) [facility] Comment:Testing performed by : [address] [address] Platelet estimate Adequate [facility] Comment:Testing performed by : [address] [address] Blood 12/22/2024 12:1 9 PM CDT 12/22/2024 12:23 PM CDT Ang Rick MD LAB BLOOD ORDERABLES Final Result Performing Organization Address City/[facility]/ZIP Co de Phone Number [facility] [address] [facility] Department [place] [address] * eGFR (12/22/2024 12:19 PM CDT) eGFR [...] was last reviewed 2021. Testing performed by: [address] [address] Blood 12/22/2024 12:1 9 PM CDT 12/22/2024 12:23 PM CDT us Ang Rick MD LAB BLOOD ORDERABLES Final Result [facility] [address] [facility] Department [place] [address] * (ABNORMAL) Differential, auto (12/22/2024 12:19 PM CDT) Pathologist [facility] Neutrophil abs 4.68 1.50 - 6.50 K/cumm Comment:Testing performed by : [address] [address] Imm gran abs 0.07 0.00 - 0.10 K/cumm [facility] Comment:Testing performed by : [address] [address] Lymphocyte abs 3.02 0.80 - 3.30 K/cumm [facility] Comment:Testing performed by : [address], [place]., [address] Monocyte abs 0.87(H) 0.20 - 0.80 K/cumm [facility] Comment:Testing performed by : [address], [place]., [address] Eosinophil abs 0.19 0.00 - 0.50 K/cumm [facility] Comment:Testing performed by : [address], [place]., [address] Basophil abs 0.05 0.00 - 0.10 K/cumm [facility] Comment:Testing performed by : [address] [address] Neutrophil pct 52.7 % [facility] Comment: Interpretive Data Percent cell count reference ranges are not reported, since discordance with absolute values may lead to misinterpretation of CBC data. Current Interpretive Data was last revised on 2017. Testing performed by: [address] [address] Imm gran pct 0.8 % [facility] Comment: Interpretive Data Percent cell count reference ranges are not reported, since discordance with absolute values may lead to misinterpretation of CBC data. Current Interpretive Data was last revised on 2017. Testing performed by: [address] [address] Lymphocyte pct 34.0 % [facility] Comment: Interpretive Data Percent cell count reference ranges are not reported, since discordance with absolute values may lead to misinterpretation of CBC data. Current Interpretive Data was last revised on 2017. Testing performed by: [address] [address] Monocyte pct 9.8 % [facility] Comment: Interpretive Data Percent cell count reference ranges are not reported, since discordance with absolute values may lead to misinterpretation of CBC data. Current Interpretive Data was last revised on 2017. Testing performed by: [address] [address] Eosinophil pct 2.1 % [facility] Comment: Interpretive Data Percent cell count reference ranges are not reported, since discordance with absolute values may lead to misinterpretation of CBC data. Current Interpretive Data was last revised on 2017. Testing performed by: [address] [address] Basophil pct 0.6 % [facility] Comment: Interpretive Data Percent cell count reference ranges are not reported, since discordance with absolute values may lead to misinterpretation of CBC data. Current Interpretive Data was last revised on 2017. Testing performed by: [address] [address] Blood 12/22/2024 12:1 9 PM CDT 12/22/2024 12:23 PM CDT us Ang Rick MD LAB BLOOD ORDERABLES Final Result Performing Organization Address City/State/[facility] Co de Phone Number [facility] Department [place] [address] * (ABNORMAL) CBC with auto differential (12/22/2024 12:19 PM CDT) WBC 8.88 3.80 - 9.90 K/cumm Comment:Testing performed by : [address] [address] Hgb 8.4(L) 13.0 - 17.5 g/dL [facility] Comment:Testing performed by : [address] [address] Hct 24.6(L) 38.9 - 50.3 % [facility] Comment:Testing performed by : [address] [address] Plt 356 150 - 400 K/cumm [facility] Comment:Testing performed by : [address] [address] MPV 10.1 9.1 - 12.3 fL [facility] Comment:Testing performed by : [address] [address] RBC 2.82(L) 4.30 - 5.80 M/cumm [facility] Comment:Testing performed by : [address] [address] MCV 87.2 81.3 - 96.4 fL [facility] Comment:Testing performed by : [address] [address] MCH 29.8 27.1 - 33.3 pg [facility] Comment:Testing performed by : [address] [address] MCHC 34.1 32.3 - 35.7 g/dL [facility] Comment:Testing performed by : [address] [address] RDW CV 19.9(H) 11.1 - 14.9 % [facility] Comment:Testing performed by : [address] [address] RDW SD 62.7(H) 35.7 - 48.1 fL [facility] Comment:Testing performed by : [address] [address] NRBC abs 0.12(H) 0.00 - 0.01 K/cumm [facility] Comment:Testing performed by : [address] [address] Blood 12/22/2024 12:1 9 PM CDT 12/22/2024 12:23 PM CDT us Ang Rick MD LAB BLOOD ORDERABLES Edite d Result - Final [facility] [address] [facility] Department [place] [address] * (ABNORMAL) Reticulocyte Count (12/22/2024 12:19 PM CDT) Retics, absolute 415(H) 20 - 87 K/cumm Comment:Testing performed by : [address] [address] Retics 14.7(H) 0.4 - 2.9 % [facility] Comment:Testing performed by : [address] [address] Reticulocyte Hgb 27.9(L) 30.5 - 38.0 pg [facility] Comment:Testing performed by : [address] [address] Blood 12/22/2024 12:1 9 PM CDT 12/22/2024 12:23 PM CDT us Ang Rick MD LAB BLOOD ORDERABLES Final Result [facility] [address] [facility] Department [place] [address] * (ABNORMAL) Comprehensive metabolic panel (12/22/2024 12:19 PM CDT) Sodium 139 135 - 145 mmol/L Comment:Testing performed by : [address] [address] Potassium, pl 3.5 3.3 - 4.9 mmol/L [facility] Comment:Testing performed by : [address] [address] Chloride 103 97 - 110 mmol/L [facility] Comment:Testing performed by : [address] [address] CO2 24 22 - 32 mmol/L [facility] Comment:Testing performed by : [address] [address] Anion gap 12 2 - 15 mmol/L [facility] Comment:Testing performed by : [address] [address] BUN 3(L) 6 - 25 mg/dL [facility] Comment:Testing performed by : [address] [address] Creatinine 0.57(L) 0.80 - 1.30 mg/dL [facility] Comment:Testing performed by : [address] [address] Glucose 141 70 - 199 mg/dL [facility] Comment: Interpretive Data Fasting glucose >/= 126 [...] was last revised 2022. Testing performed by: [facility], [address] [place] [address]., [address] Calcium 9.1 8.5 - 10.3 mg/dL [facility] Comment:Testing performed by : [address] [address] Bilirubin, total 5.4(H) 0.1 - 1.2 mg/dL [facility] Comment:Testing performed by : [address] [address] Protein, pl 7.9 6.5 - 8.5 g/dL [facility] Comment:Testing performed by : [address] [address] Albumin 4.4 3.5 - 5.0 g/dL [facility] Comment:Testing performed by : [address] [address] Alk phos 391(H) 40 - 130 Units/L [facility] Comment:Testing performed by : [address] [address] ALT 50 7 - 55 Units/L [facility] Comment:Testing performed by : [address] [address] AST 86(H) 10 - 50 Units/L [facility] Comment:Testing performed by : [address] [address] Blood 12/22/2024 12:1 9 PM CDT 12/22/2024 12:23 PM CDT us Ang Rick MD LAB BLOOD ORDERABLES Final Result [facility] [address] [facility] Department [place] [address] * eGFR (12/08/2024 9:50 AM CDT) [facility] eGFR >90 >=60 mL/min/1. 73 m2 [...] MD LAB BLOOD ORDERABLES Final Res ult [facility] [address] [facility] Department [place] [address] * (ABNORMAL) Comprehensive metabolic panel (12/08/2024 9:50 AM CDT) [facility] Sodium 137 135 - 145 mmol/L Potassium, pl 3.7 3.3 - 4.9 mmol/L [facility] Comment:Hemolyzed; Potassium value may be falsely elevated by as much as 1.0 mmol/L. Suggest redraw and reanalysis. Chloride 101 97 - 110 mmol/L [facility] CO2 24 22 - 32 mmol/L [facility] Anion gap 12 2 - 15 mmol/L [facility] BUN 4(L) 6 - 25 mg/dL [facility] Creatinine 0.53(L) 0.80 - 1.30 mg/dL [facility] Glucose 109 70 - 199 mg/dL [facility] Comment: Interpretive Data Fasting glucose >/= [...] 2022. Calcium 8.8 8.5 - 10.3 mg/dL [facility] Bilirubin, total 3.3(H) 0.1 - 1.2 mg/dL [facility] Protein, pl 7.8 6.5 - 8.5 g/dL [facility] Albumin 3.9 3.5 - 5.0 g/dL [facility] Alk phos 416(H) 40 - 130 Units/L [facility] ALT 35 7 - 55 Units/L [facility] AST 63(H) 10 - 50 Units/L [facility] Comment:Hemolyzed; result ma y be falsely elevated Blood 12/08/2024 9:50 AM CDT 12/08/2024 9:55 AM CDT Rasta Garcia MD LAB BLOOD ORDERABLES Final Res ult [facility] [address] [facility] Department [place] [address] * Troponin T high-sensitivity series [...] LAB BLOOD ORDERABLES Final R esult [facility] [address] [place] [address] * Sepsis Lactate w/ Reflex (12/07/2024 9:52 PM CDT) Sepsis Lactate 1.5 0.7 - 2.0 mmol/L Blood 12/07/2024 9:52 PM CDT 12/07/2024 9:57 PM CDT us Guy HO LAB BLOOD ORDERABLES Final R esult Performing Organization Address City/[facility] Co de Phone Number [facility] [address] [address] * eGFR (12/07/2024 9:52 PM CDT) eGFR [...] ORDERABLES F inal Result Performing Organization Address [facility] de Phone Number [address] [place] [address] * (ABNORMAL) CBC with auto differential (12/07/2024 9:52 PM CDT) [facility] WBC 15.51(H) 3.80 - 9.90 K/cumm Hgb 8.8(L) 13.0 - 17.5 g/dL [facility] Hct 26.3(L) 38.9 - 50.3 % [facility] Plt 368 150 - 400 K/cumm [facility] MPV 9.7 9.1 - 12.3 fL [facility] RBC 3.04(L) 4.30 - 5.80 M/cumm [facility] MCV 86.5 81.3 - 96.4 fL [facility] MCH 28.9 27.1 - 33.3 pg [facility] MCHC 33.5 32.3 - 35.7 g/dL [facility] RDW CV 18.3(H) 11.1 - 14.9 % [facility] RDW SD 57.4(H) 35.7 - 48.1 fL [facility] NRBC abs 0.05(H) 0.00 - 0.01 K/cumm [facility] Blood 12/07/2024 9:52 PM CDT 12/07/2024 9:57 PM CDT Lala Ace MD LAB BLOOD ORDERABLES Rashaun missy Result - Final Performing Organization Address [facility] Co de Phone Number [address] [employer] [place] [address] * (ABNORMAL) Manual Differential (12/07/2024 9:52 PM CDT) [facility] Differential Manual Cells Counted 100 [facility] Neutrophil abs 12.10(H) 1.50 - 6.50 K/cumm [facility] Lymphocyte abs 2.64 0.80 - 3.30 K/cumm [facility] Monocyte abs 0.78 0.20 - 0.80 K/cumm [facility] Neutrophil pct 78.0 % [facility] Comment: Interpretive Data Percent cell count reference ranges are not reported, since discordance with absolute values may lead to misinterpretation of CBC data. Current Interpretive Data was last revised on 2017. Lymphocyte pct 17.0 % [facility] Comment: Interpretive Data Percent cell count reference ranges are not reported, since discordance with absolute values may lead to misinterpretation of CBC data. Current Interpretive Data was last revised on 2017. Monocyte pct 5.0 % [facility] Comment: Interpretive Data Percent cell count reference ranges are not reported, since discordance with absolute values may lead to misinterpretation of CBC data. Current Interpretive Data was last revised on 2017. RBC morphology Present(A) [facility] Polychromasia 8-15/HPF(A) [facility] Sickle cells 1-2/HPF(A) [facility] Elliptocytes 8-15/HPF(A) [facility] Platelet estimate Automated Count Confirmed [facility] Giant platelets Present(A) [facility] Blood 12/07/2024 9:52 PM CDT 12/07/2024 9:57 PM CDT Lala Ace MD LAB BLOOD ORDERABLES Fin al Result Performing Organization Address [facility] Co de Phone Number [address] [place] [address] * (ABNORMAL) Reticulocyte Count (12/07/2024 9:52 PM CDT) Retics, absolute 237(H) 20 - 87 K/cumm Retics 7.8(H) 0.4 - 2.9 % [facility] Reticulocyte Hgb 35.9 30.5 - 38.0 pg [facility] Blood 12/07/2024 9:52 PM CDT 12/07/2024 9:57 PM CDT Lala Ace MD LAB BLOOD ORDERABLES Fin al Result Performing Organization Address City/[facility] Co de Phone Number [address] [place] [address] * (ABNORMAL) Comprehensive metabolic panel (12/07/2024 9:52 PM CDT) Sodium 137 135 - 145 mmol/L Potassium, pl 3.5 3.3 - 4.9 mmol/L [facility] Chloride 102 97 - 110 mmol/L [facility] CO2 24 22 - 32 mmol/L [facility] Anion gap 11 2 - 15 mmol/L [facility] BUN 4(L) 6 - 25 mg/dL [facility] Creatinine 0.56(L) 0.80 - 1.30 mg/dL [facility] Glucose 114 70 - 199 mg/dL [facility] Comment: Interpretive Data Fasting glucose >/= [...] 2022. Calcium 9.3 8.5 - 10.3 mg/dL [facility] Bilirubin, total 3.1(H) 0.1 - 1.2 mg/dL [facility] Protein, pl 8.8(H) 6.5 - 8.5 g/dL [facility] Albumin 4.5 3.5 - 5.0 g/dL [facility] Alk phos 472(H) 40 - 130 Units/L [facility] ALT 44 7 - 55 Units/L [facility] AST 73(H) 10 - 50 Units/L [facility] Blood 12/07/2024 9:52 PM CDT 12/07/2024 9:57 PM CDT us Nitza Oliver MD LAB BLOOD ORDERABLES F inal Result [facility] [address] [facility] Department [place] [address] * XR Chest 1 View (12/07/2024 9:35 [...] signed by Andrew LEMA T: Report ID: [id number] Reading Location: [place] [address] Procedure Note Andrew Stubbs MD - 12/07/2024 [...] Andrew Stubbs M.D. AR T: Report ID: [id number] Reading Location: [place] [address] us Nitza Oliver MD IMG XR PROCEDURES Stephanie l Result * (ABNORMAL) Urinalysis reflex to microscopic and culture Urine (12/07/2024 9:33 PM CDT) Color, ur Yellow Yellow Clarity, ur Clear Clear [facility] Specific gravity, ur 1.011 1.003 - 1.030 [facility] pH, urine 6.5 [facility] Comment: Interpretive Data U rine pH is affected by diet, medications, systemic acid-base disturbances, and renal tubular function. pH may affect urinary stone formation. For example, urine pH below 6.0 may help reduce the tendency for calcium phosphate stones and pH greater than 6.0 may reduce the tendency for uric acid stone formation. Source: [facility] Current Interpretive Data was last revised on 2017 Protein, ur ql Negative Negative [facility] Glucose, ur ql Negative Negative [facility] Ketones, ur Negative Negative [facility] Bilirubin, ur Negative Negative [facility] Blood, ur Negative Negative [facility] Urobilinogen, ur 2.0(A) <2.0 mg/dL [facility] Nitrite, ur Negative Negative [facility] Leukocyte esterase, ur Negative Negative [facility] UA reflex comment Reflex conditions for microscopic UA and culture not met. [facility] Urine 12/07/2024 9:33 PM CDT 12/07/2024 9:41 PM CDT us Lala Ace MD LAB MICROBIOLOGY - GENER AL ORDERABLES Final Result [facility] [address] [facility] Department [place] [address] * ECG 12 lead (12/07/2024 9:21 PM CDT) Ventricular Rate EKG/Min 115 BPM [facility] Atrial Rate 115 BPM [facility] ND-Interval (MSEC) 180 ms [facility] QRS-Interval (MSEC) 82 ms [facility] QT-Interval (MSEC) 328 ms [facility] QTc 453 ms [facility] P [place] 44 degrees [facility] R [place] 11 degrees [facility] T [place] 16 degrees [facility] Diagnosis Sinus tachycardia Otherwise normal ECG When compared with ECG of 05-OCT-2024 05:33, Limb lead reversal corrected Confirmed by NING LEON M.D. ([id number]) on 12/08/2024 8:06:53 PM [facility] 12/07/2024 9:21 PM CDT 12/08/2024 8:06 PM CDT us Lala Ace MD ECG ORDERABLES Final Re sult [facility] * Hepatitis C antibody Blood (08/29/2023 9:51 PM CDT) Pathologist [facility] Hep C Ab Nonreactive Nonreactive Comment:Antibodies to HCV no t detected. Does NOT exclude the possibility of recent exposure to HCV. Current interpretive data was last revised on 22 Blood 08/29/2023 9:51 PM CDT 08/29/2023 10:10 PM CDT Gordo Soliz MD LAB MICROBIOLOGY - GENE RAL ORDERABLES Final Result [facility] [address] [facility] Department [place] [address] from Last 3 Months or Most Recently Relevant to Health Maintenance Insurance [facility] Advance Directives For more information, please contact: [phone] Documents on File Type Date Recorded Patient Insurance Office Supervisor Expl anation ADVANCE DIRECTIVE 02/16/2025 8:54 AM Power of Station Engineer Chief-Medical * Full Code (Latest Code Status on [...] 2:42 PM 10/19/2024 5:43 PM Care Teams Author'S Agent Relationship Specialty Start Date End Date Laurent Gonzalez MD [address] [place] [address] PCP - General Hematology and Oncology 10/18/23 Ray Sainz MD [address] [facility] [address] [place] [address] 02/10/20 [place] [id number] [place] [facility] [address] [place] [address] Consulting Physician Family Medicine 05/05/22 Miscellaneous, Not In File 12/14/22 [place] [address] [facility] [facility] [address] [place] [address] Consulting Physician Orthopedic Surgery 08/18/24
--- OUTSIDE RECORDS SUMMARY | 2025-02-24 14:09 | XMS_ITS | CCD ---
Author Name Interface, [address] Address More breakthroughs. More victories. [address] Oncology Address 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
--- OUTSIDE RECORDS SUMMARY | 2025-02-24 14:09 | XMS_ITS | CCD ---
Author Name Interface, [address] Address More breakthroughs. More victories. [address] Oncology Address 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
--- OUTSIDE RECORDS SUMMARY | 2025-02-24 14:09 | XMS_ITS | Clinical Summary ---
Author Organization [facility] Facility Address [address] [address] Care Team Providers Care Button Tufter Name Role Phone Laurent Gonzalez MD Primary Care Provider [phone] Social History Tobacco Use Types Packs/Day Years [...] Vaccine (#1) 2025 1, 05/03/2009, 05/03/2009 Insurance Travel Notes [place] ([id number]) Care Teams Button Tufter Relationship Specialty Start Date End Date Laurent Gonzalez MD PCP - General Hematology 11/08/24
--- OUTSIDE RECORDS SUMMARY | 2025-02-24 14:09 | XMS_ITS | Encounter Summary ---
Author Organization [facility] Healthcare Address [address] [place] [address] Care Team Providers Care Water Resource Agent Name Role Phone Ray Sainz MD Unavailable [phone] Miscellaneous, Not In File Primary Care Provider Unavailable Laurent Gonzalez MD Primary Care Provider [phone] Gordo Herrera MD Unavailable [phone] Travis Richards MD Primary Care Provider [phone] Miscellaneous, Not In File Unavailable Unava ilable Daily Cooper MD Primary Care Provider [phone] Laurent Gonzalez MD Primary Care Provider [phone] Mariam Hedrick Unavailable Unavailable Ning Lowery DNP Unavailable [phone] Mariam Hedrick Unavailable Unavailable Ning Lowery DNP Unavailable [phone] Ana Duran RN Unavailable [phone] Areli Zuniga Unavailable Unavailable Ning Lowery DNP Unavailable [phone] Tobin Terrell MD Unavailable [phone] Encounter Details Date Type Department Care Team (Late st Contact Info) Description 11/22/2020 Documentation [facility] Case Management [address] [place] [address] Roula Llanos MSW Social History Tobacco Use Types Packs/Day Years Used Date Smoking Tobacco: Never Smokeless Tobacco: Never Alcohol Use Standard Drinks/Week Comments Not Currently 0 (1 standard drink = 0.6 oz pur e alcohol) Sex and Gender Information Value Date Recorded Sex Assigned at Not on file Legal Sex Male 10:50 AM NURSE'S AIDES TEACHER Gender Identity Male 12/06/2024 9:44 PM CDT Sexual Orientation Straight 12/06/2024 9: 44 PM CDT documented as of this encounter Miscellaneous Notes * Plan of Care - Roula Llanos MSW - 11/22/2020 12:01 PM CDT DIMITRI was able to fill patient prescription under [facility]. Roula Llanos LMSW [phone] documented in this encounter Plan of Treatment [...] antipyretics, immunocompetent pt. Flag removed. Talat Shay [phone] 02/09/2023 02/09/2023 02/12/2023 11 :55 AM CDT COVID: Recovered 02/12/2023 02/12/2023 05/13/2023 3:05 AM NURSE'S AIDES TEACHER COVID: Suspected 04/27/2023 04/27/2023 04/27/2023 4:11 AM NURSE'S AIDES TEACHER COVID: Suspected 06/26/2023 06/26/2023 06/26/2023 11:44 PM NURSE'S AIDES TEACHER Diarrhea 06/26/2023 06/26/2023 07/10/2023 3:05 AM NURSE'S AIDES TEACHER C. difficile suspected 08/30/2023 08/30/202308/30 2:37 PM [...] COVID: Suspected 03/30/2024 03/30/2024 03/30/2024 1:29 PM NURSE'S AIDES TEACHER C. difficile suspected 05/12/2024 05/14/202405/14 7:10 AM NURSE'S AIDES TEACHER COVID: Suspected 05/29/2024 05/29/2024 05/29/2024 10:06 PM NURSE'S AIDES TEACHER COVID: Suspected 07/24/2024 07/24/2024 07/24/2024 5:44 AM NURSE'S AIDES TEACHER Norovirus suspected 07/24/2024 07/24/2024 07/30/19 3:05 AM NURSE'S AIDES TEACHER C. difficile suspected 07/24/2024 07/24/202407/29 3:05 AM NURSE'S AIDES TEACHER COVID: Suspected 08/13/2024 08/13/2024 08/13/2024 1:30 PM CDT COVID: Suspected 11/01/2024 11/01/2024 11/01/2024 2:39 PM CDT Ring Surveillance: C. auris 11/08/2024 11/08/2024 11/15/2024 7:26 PM CDT COVID: Suspected 12/23/2024 12/23/2024 12/23/2024 5:12 PM CDT COVID: Suspected 02/15/2025 02/15/2025 02/15/2025 2:26 PM CDT documented as of this encounter Care Teams Water Resource Agent Relationship Specialty Start Date End Date Miscellaneous, Not In File PCP - General 11/22/20 11/20/21 Laurent Gonzalez MD [address] [place] [address] PCP - General 11/21/21 08/11/22 Travis Richards MD [address] [place] [address] PCP - General Pediatric Hematology and Oncology 08/12/22 12/18/22 Daily Cooper MD [address] [place] [address] PCP - General Internal Medicine 12/19/22 10/17/23 Laurent Gonzalez MD [address] [place], [place] [id number] PCP - General Hematology and Oncology 10/18/23 Ray Sainz MD [address] [facility] [address] [place] [address] 02/10/20 [place] [address] [facility] [address] [place] [address] Consulting Physician Family Medicine 05/05/22 Miscellaneous, Not In File 12/14/22 Mariam Hedrick Outpatient Sap Basis Administrator 03/31/24 04/04/24 Ning Lowery DNP [address] [facility] [address] [place] [address] Nurse Practitioner Internal Medicine 03/31/24 04/04/24 Mariam Hedrick Outpatient Sap Basis Administrator 05/31/24 08/15/24 Ning Lowery DNP [address] [facility] [address] [place] [address] Nurse Practitioner Internal Medicine 05/31/24 08/15/24 Ana Duran, BOUCHRA [address] [facility] [address] [place] [address] [facility] Outpatient Sap Basis Administrator 07/29/24 08/02/24 Areli Zuniga Outpatient Sap Basis Administrator 08/16/24 09/23/24 Ning Lowery DNP [address] [facility] [address] [place] [address] Nurse Practitioner Internal Medicine 08/16/24 09/23/24 [place] [address] [address] Consulting Physician Orthopedic Surgery 08/18/24 documented as of this encounter
--- OUTSIDE RECORDS SUMMARY | 2025-02-24 14:09 | XMS_ITS | Clinical Summary ---
Author Organization [facility] Address [address] [place] [address] Phone Care Team Providers Care Industrial Trainer Name Role Phone Unavailable Primary Care Provider [...] mouth daily. Active naloxone (NARCAN) 4 mg/spray [place], Non-Aerosol EMERGENCY USE ONLY: Administer 1 spray [...] CDT - 12/23/2024 12:06 PM CDT Emergency [facility] Emergency Department [address] [facility] [place] [address] Thien Narayan MD Sickle cell pain crisis (CMS/HCC) (Primary Dx) Discharge Disposition: Home or Self Care 12/14/2024 External Device Data STL ABSTRACTION Provider, Abstract 12/09/2024 8:20 PM CDT - 12/13/2024 11:30 AM CDT Hospital Encounter [facility] Telemetry [address] [place] [address] Guy Lowery MD Abduljaber, MD Marlin Gale, [...] on file Legal Sex Male 7:02 AM BREAKER OILER Gender Identity Not on file Sexual Orientation [...] history exists Medical Devices Implanted Type Area Chapter Relations Administrator Device Identifier Shelf Expiration Date Model / Serial / Lot Core Decompression Procedure Kit Pro Dense Implanted:Qty: 1 on 06/30/2022 by Gordo Suazo MD at [facility] Left: Hip [place] [place] [employer] [id number] 04/28/2027 [id number] / / [id number] Description:Requisition # [id number]. Procedures Procedure Name Priority Date/Time Associated Diagnosis [...] CDT 12/23/2024 9:19 AM CDT us Protocol [facility] Emergency MD URINE ORDERABLES Fin al Result Performing Organization Address City/State/[facility] Co de Phone Number [facility]# [id number] [address] [place], [place] [address] * (ABNORMAL) CBC WITH DIFFERENTIAL (12/23/2024 1:41 AM CDT) Only the most recent of4 resultswithin the time period is included. WBC 10.9(H) 4.0 - 9.8 K/uL 12/23/2024 2:39 AM CDT [facility] NRBCS 1 % 12/23/2024 2:39 AM CDT [facility] RBC 2.86(L) 4.50 - 5.40 M/uL 12/23/2024 2:39 AM CDT [facility] HEMOGLOBIN 8.4(L) 13.6 - 16.5 g/dL 12/23/2024 2:39 AM CDT [facility] HEMATOCRIT 25.2(L) 40.0 - 48.0 % 12/23/2024 2:39 AM CDT [facility] MCV 88.1 82.0 - 99.0 fL 12/23/2024 2:39 AM CDT [facility] MCH 29.4 27.2 - 32.6 pg 12/23/2024 2:39 AM CDT [facility] MCHC 33.3 31.5 - 35.5 g/dL 12/23/2024 2:39 AM CDT [facility] RDW 19.3(H) 11.5 - 14.5 % 12/23/2024 2:39 AM CDT [facility] RDW-STDEV 62.1(H) 37.1 - 48.7 fL 12/23/2024 2:39 AM CDT [facility] PLATELETS 359(H) 140 - 350 K/uL 12/23/2024 2:39 AM CDT [facility] MPV 10.5 9.3 - 12.4 fL 12/23/2024 2:39 AM CDT [facility] NEUTROPHILS 60 % 12/23/2024 2:39 AM CDT [facility] LYMPHOCYTES 29 % 12/23/2024 2:39 AM CDT [facility] MONOCYTES 10 % 12/23/2024 2:39 AM CDT [facility] EOSINOPHILS 1 % 12/23/2024 2:39 AM CDT [facility] BASOPHILS 1 % 12/23/2024 2:39 AM CDT [facility] IMMATURE GRANULOCYTES 0 % 12/23/2024 2:39 AM CDT [facility] NEUTROPHIL ABSOLUTE 6.56 1.90 - 7.00 K/uL 12/23/2024 2:39 AM CDT [facility] LYMPHOCYTE ABSOLUTE 3.10 0.70 - 4.50 K/uL 12/23/2024 2:39 AM CDT [facility] MONOCYTE ABSOLUTE 1.03 0.10 - 1.30 K/uL 12/23/2024 2:39 AM CDT [facility] EOSINOPHIL ABSOLUTE 0.08 0.00 - 0.70 K/uL 12/23/2024 2:39 AM CDT [facility] BASOPHILS ABSOLUTE 0.05 0.00 - 0.20 K/uL 12/23/2024 2:39 AM CDT [facility] - . [facility] IMMATURE GRANULOCYTES ABSOLUTE 0.03 0.00 - 0.03 K/uL 12/23/2024 2:39 AM CDT [facility] - . [facility] Blood Venipuncture / Unknown 12/23/2024 1:41 AM CDT 12/23/2024 1:47 AM CDT Bk Luke IV, DO HEMATOLOGY ORDERA BLES Final Result [facility] CLIA# [id number] [address] [place] [address] * (ABNORMAL) RETICULOCYTES (12/23/2024 1:41 AM CDT) Only the most recent of2 resultswithin the time period is included. [facility] RETICULOCYTES 13.0(H) 0.7 - 2.9 % 12/23/2024 3:04 AM CDT [facility] - [facility] IMMATURE RETIC FRACTION 37.2(H) 3.0 - 18.0 % 12/23/2024 3:04 AM CDT [facility] - [facility] RETICULOCYTE, ABSOLUTE 0.3656 10e6/uL 12/23/2024 3:04 AM CDT [facility] Comment:Quantitated by pita benjamin. Blood Venipuncture / Unknown 12/23/2024 1:41 AM CDT 12/23/2024 1:47 AM CDT Bk Luke IV, DO HEMATOLOGY ORDERA BLES Final Result [facility] CLIA# [id number] [address] [place] [address] * (ABNORMAL) COMPREHENSIVE METABOLIC PANEL (12/23/2024 1:41 AM CDT) Only the most recent of4 resultswithin the time period is included. [facility] Signature SODIUM 136 136 - 145 mmol/L 12/23/2024 2:23 AM [facility]ORAT[facility] SERVICES - . [facility] POTASSIUM 3.5 3.5 - 5.0 mmol/L 12/23/2024 2:23 AM [facility] CHLORIDE 102 98 - 107 mmol/L 12/23/2024 2:23 AM [facility] CO2 24 22 - 29 mmol/L 12/23/2024 2:23 AM [facility] CALCIUM 9.2 8.6 - 10.2 mg/dL 12/23/2024 2:23 AM [facility] - [facility] BUN 3(L) 6 - 20 mg/dL 12/23/2024 2:23 AM [facility] SERVICES - . [facility] CREATININE 0.49(L) 0.67 - 1.17 mg/dL 12/23/2024 2:23 AM [facility] - [facility] GLUCOSE 101(H) 74 - 99 mg/dL 12/23/2024 2:23 AM [facility] - [facility] TOTAL PROTEIN 8.0 6.7 - 8.6 g/dL 12/23/2024 2:23 AM [facility] ALBUMIN 4.1 3.5 - 5.2 g/dL 12/23/2024 2:23 AM [facility] - [facility] BILIRUBIN TOTAL 5.7(H) 0.0 - 1.2 mg/dL 12/23/2024 2:23 AM [facility]OR[facility] SERVICES - . [facility] ALKALINE PHOSPHATASE 403(H) 40 - 129 U/L 12/23/2024 2:23 AM [facility] - [facility] [place] AST 78(H) <41 U/L 12/23/2024 2:23 AM [facility]ORATORY SERVICES [facility]. [facility] ALT 49(H) <42 U/L 12/23/2024 2:23 AM [facility] - [facility] GFR >60 >=60 mL/min/1.7 3 sq meter 12/23/2024 2:23 AM CDT [facility] Comment:eGFR calculated with 2020 CKD-EPI equation. Vegetarian diet, extremely high or low muscle mass, and may affect results. Cystatin C with Glomerular Filtration Rate is a suitable alternative for these patients. ANION GAP 10 8 - 16 mmol/L 12/23/2024 2:23 AM CDT [facility] Blood Venipuncture / Unknown 12/23/2024 1:41 AM CDT 12/23/2024 1:47 AM CDT Narrative [facility] - 12/23/2024 2:23 AM CDT Samples containing indocyanine green cause interferences on Total and/or Direct Bilirubin and must not be measured. us kB Luke IV, DO CHEMISTRY ORDERAB LES Final Result [facility]# [id number] [address] [facility] [place] [address] * XR CHEST PA AND LATERAL 2 VW (12/22/2024 8:54 PM CDT) Only the most recent of2 resultswithin the time period is included. Anatomical Region Laterality Modality Chest Computed Radiogr aphy 12/22/2024 8:5 5 PM CDT Impressions 12/22/2024 9:02 PM CDT FINDINGS/IMPRESSION: MEDIASTINUM: Stable cardiomediastinal contours. Cardiac silhouette is mildly enlarged. Suggestion of pulmonary vascular congestion. LUNGS: No focal consolidation, pleural effusion or pneumothorax. OTHER: Osteonecrosis of the humeral heads again noted, right greater than left. DICTATION LOCATION: Location 4 Narrative 12/22/2024 9:02 PM CDT XR CHEST PA AND LATERAL 2 VW Ordering provider: [facility] History: 29 years Male with Chest Pain. See Reason for Exam. Comparison: 12/10/2024 Procedure Note Saeid Higgins MD - 12/22/2024 XR CHEST PA AND LATERAL 2 VW Ordering provider: [facility] History: 29 years Male with [...] INTERFACE SYSTEM - 12/23/2024 6:03 AM CDT [place] [id number] Test Date: 2024-12-22 Pat Name: JOHNNY SIMON Department: 37 Room: Gender: Male Oxygen Furnace Operator: [email or web address] : 1995 Requested By: Order Number: [id number] Reading MD: Jame Hernandez Measurements Intervals [place] Rate: 93 P: 24 MN: 202 QRS: 26 QRSD: 87 T: 24 QT: 379 QTc: 472 Interpretive Statements Sinus rhythm Borderline prolonged MN interval Possible left atrial enlargement Borderline prolonged QT interval Electronically Signed On 12-23-2024 6:03:06 CDT by Jame Hernandez Procedure Note Jame Hernandez MD - 12/23/[address] [address] Test Date: 2024-12-22 Pat Name: JOHNNY SIMON Department: 37 Room: Gender: Male Oxygen Furnace Operator: [email or web address] : 1995 Requested By: Order Number: [id number] Reading : Jame Hernandez Measurements Intervals [place] Rate: 93 P: 24 MN: 202 QRS: 26 QRSD: 87 T: 24 QT: 379 QTc: 472 Interpretive Statements Sinus rhythm Borderline prolonged MN interval Possible left atrial enlargement Borderline prolonged [...] <6 <=15 ng/L 12/10/2024 9:24 AM CDT [facility] Blood Venipuncture / Unknown 12/10/2024 8:19 AM CDT 12/10/2024 8:36 AM CDT Narrative [facility] - 12/10/2024 9:24 AM CDT Troponin Undetectable Iglesia Rausch PA-C CHEMISTRY ORDERABLES Fin al Result Performing Organization Address City/[facility] Co de Phone Number [facility] CLIA# [id number] [address] [facility] [place] [address] * (ABNORMAL) LACTATE DEHYDROGENASE (12/10/2024 8:19 AM CDT) Pathologist [facility] LD (LACTATE DEHYDROGENASE) 438(H) 135 - 225 U/L 12/10/2024 9:24 AM CDT [facility] Comment:Moderate hemolysis p resent. Can cause significant falsely elevated result. Redraw if indicated. Blood Venipuncture / Unknown 12/10/2024 8:19 AM CDT 12/10/2024 8:36 AM CDT Iglesia Rausch PA-C CHEMISTRY ORDERABLES Fin al Result [facility]# [id number] [address] [place] [address] * (ABNORMAL) HAPTOGLOBIN (12/10/2024 8:19 AM CDT) HAPTOGLOBIN <10(L) 30 - 200 mg/dL 12/10/2024 9:42 AM CDT [facility] Comment:Hemolysis present. R esult may be falsely decreased. Blood Venipuncture / Unknown 12/10/2024 8:19 AM CDT 12/10/2024 8:34 AM CDT Iglesia Rausch PA-C CHEMISTRY ORDERABLES Fin al Result [facility]# [id number] [address] [place] [address] from Last 3 Months Insurance BCBS [facility] MEDICAID RX INFOCROSSING Medicaid RX ZELAYA PLANS (INTERNAL) [facility] Internal Plans Advance Directives For more information, please contact: [phone] * Full Code (Latest Code Status on [...]
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
[2025-02-24 15:10] LABS: Hematocrit 24.4 % (42.0-52.0); Hemoglobin 8.3 g/dL (14.0-18.0); Immature Granulocyte Percent A 0.3 % (0-0.5); Immature Reticulocyte Fraction 36.7 % (3.0-15.9); Lymphocytes Absolute Auto 4.01 K/mm3 (0.9-3.2); Mean Corpuscular HGB Conc 34.0 g/dl (32-36); Mean Corpuscular Hemoglobin 30.7 pg (26-34); Mean Corpuscular Volume 90.4 fl (80-100); Nucleated Red Blood Cells Absolute Auto 0.060 K/mm3 (0.0-0.012); Nucleated Red Blood Cells Perc 0.7 % (0.0-0.2); Platelet Count Result 308 k/mm3 (150-375); Red Blood Count 2.70 M/mm3 (4.6-6.20); Reticulocyte Hemoglobin Conten 33.2 pg (28.2-36.6); Reticulocytes Absolute 0.37 10^6/uL (0.02-0.10); White Blood Count 9.0 K/mm3 (4.5-10.0)
[2025-02-24] MEDS: LACTATED RINGERS 2,000 ML 999 ML IV CONT (15:17)
[2025-02-24] MEDS: LACTATED RINGERS 1,000 ML 999 ML IV CONT ×2 (15:19→18:09)
[2025-02-24] MEDS: HYDROmorphone HCL INJ (*CRX) 1 MG/ML SYR IV PUSH ×3 (15:20→22:06)
[2025-02-24 15:21] LABS: Alanine Aminotransferase 38 U/L (6-50); Albumin Level 4.4 g/dL (3.5-5.1); Alkaline Phosphatase 253 U/L (38-126); Anion Gap 9 mmol/L (4-12); Aspartate Amino Transferase 63 U/L (17-59); Bilirubin,Total 5.4 mg/dL (0.2-1.3); Blood Urea Nitrogen 2 mg/dL (9-20); Calcium 8.5 mg/dL (8.4-10.2); Carbon Dioxide 26 mmol/L (22-30); Chloride 103 mmol/L (98-107); Estimated CRCL calculation 219 ml/min; Estimated Glomerular Filt Rate > 60; Glucose 113 mg/dL (65-110); Potassium 3.3 mmol/L (3.4-5.0); Sodium 138 mmol/L (137-145); Total Protein 8.6 g/dL (6.3-8.2)
[2025-02-24 15:25] LABS: INR 1.3; Prothrombin Time 15.6 Seconds (11.1-14.7)
[2025-02-24 15:26] LABS: Partial Thromboplastin Time 27.6 Seconds (22.3-36.8)
[2025-02-24 15:32] LABS: Troponin I < 0.012 ng/mL (0.000-0.034)
[2025-02-24] MEDS: KETOROLAC 30 MG/ML VIAL (*BKC) IV PUSH (17:14)
[2025-02-24] MEDS: HYDROmorphone HCL INJ (*CRX) 2 MG/ML VIAL IV PUSH (18:10)
--- NOTE | 2025-02-24 18:42 | ECG_ITS ---
Test Date: 2025-02-24 19:09:21 Measurements Intervals [place] Rate: 88 P: 54 [place]: 220 QRS: 13 QRSD: 91 T: 8 QT: 396 QTc: 480 Interpretive Statements SINUS RHYTHM WITH FIRST DEGREE AV BLOCK BORDERLINE ECG Compared to ECG 02/14/2025 21:06:13 First degree AV block now present Electronically Signed On 02-24-2025 19:33:29 CDT by Milton Presley D.O.
[2025-02-24] MEDS: HYDROmorphone HCL INJ (*CRX) 1 MG/ML SYR 0.5 MG IV PUSH (21:06)
[2025-02-24] MEDS: LACTATED RINGERS 1,000 ML 125 ML IV CONT (22:05)
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
[2025-02-25] VITALS: PULSE 96
[2025-02-25] MEDS: HYDROmorphone HCL INJ (*CRX) 1 MG/ML SYR 2 MG IV PUSH ×10 (00:37→22:10)
[2025-02-25] MEDS: POTASSIUM CHLORIDE 20 MEQ PACKET (FOR LIQUID) PO (03:02)
[2025-02-25 04:00] VITALS: PULSE 93
[2025-02-25] MEDS: LACTATED RINGERS 1,000 ML 125 ML IV CONT ×3 (05:19→21:11)
[2025-02-25 06:00] VITALS: BP 117/73; PULSE 90; RESP 18; TEMP 36.6; O2SAT 97
[2025-02-25 06:12] LABS: Hematocrit 21.3 % (42.0-52.0); Hemoglobin 7.3 g/dL (14.0-18.0); Mean Corpuscular HGB Conc 34.3 g/dl (32-36); Mean Corpuscular Hemoglobin 31.6 pg (26-34); Mean Corpuscular Volume 92.2 fl (80-100); Platelet Count Result 278 k/mm3 (150-375); Red Blood Count 2.31 M/mm3 (4.6-6.20); White Blood Count 9.5 K/mm3 (4.5-10.0)
[2025-02-25 07:46] LABS: Anion Gap 5 mmol/L (4-12); Calcium 8.0 mg/dL (8.4-10.2); Carbon Dioxide 26 mmol/L (22-30); Chloride 107 mmol/L (98-107); Estimated CRCL calculation 233 ml/min; Estimated Glomerular Filt Rate > 60; Glucose 88 mg/dL (65-110); Potassium 3.4 mmol/L (3.4-5.0); Sodium 138 mmol/L (137-145)
[2025-02-25 07:49] LABS: Blood Urea Nitrogen < 2 mg/dL (9-20)
[2025-02-25 08:00] VITALS: PULSE 95
[2025-02-25] MEDS: FOLIC ACID 1 MG TABLET PO (09:13)
[2025-02-25] MEDS: oxyCODONE/ACETAMINOPHEN (*CRX) 10-325 MG TABLET 1 TAB PO ×2 (09:13→22:55)
[2025-02-25 14:00] VITALS: BP 103/64; PULSE 86; RESP 16; TEMP 36.3; O2SAT 96
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
[2025-02-25 21:16] VITALS: BP 132/69; PULSE 106; RESP 20; TEMP 36.9; O2SAT 94
[2025-02-26] MEDS: HYDROmorphone HCL INJ (*CRX) 1 MG/ML SYR 2 MG IV PUSH ×10 (00:13→22:11)
[2025-02-26] MEDS: LACTATED RINGERS 1,000 ML 125 ML IV CONT ×3 (05:19→20:57)
[2025-02-26 06:00] VITALS: BP 110/68; PULSE 88; RESP 20; TEMP 36.9; O2SAT 96
[2025-02-26 06:08] LABS: Hematocrit 22.0 % (42.0-52.0); Hemoglobin 7.6 g/dL (14.0-18.0); Immature Granulocyte Percent A 0.7 % (0-0.5); Lymphocytes Absolute Auto 4.41 K/mm3 (0.9-3.2); Mean Corpuscular HGB Conc 34.5 g/dl (32-36); Mean Corpuscular Hemoglobin 31.9 pg (26-34); Mean Corpuscular Volume 92.4 fl (80-100); Nucleated Red Blood Cells Absolute Auto 0.220 K/mm3 (0.0-0.012); Nucleated Red Blood Cells Perc 2.0 % (0.0-0.2); Platelet Count Result 318 k/mm3 (150-375); Red Blood Count 2.38 M/mm3 (4.6-6.20); White Blood Count 11.1 K/mm3 (4.5-10.0)
[2025-02-26 06:46] LABS: Alanine Aminotransferase 27 U/L (6-50); Albumin Level 3.8 g/dL (3.5-5.1); Alkaline Phosphatase 229 U/L (38-126); Anion Gap 8 mmol/L (4-12); Aspartate Amino Transferase 53 U/L (17-59); Bilirubin,Total 4.3 mg/dL (0.2-1.3); Calcium 8.3 mg/dL (8.4-10.2); Carbon Dioxide 24 mmol/L (22-30); Chloride 107 mmol/L (98-107); Estimated CRCL calculation 247 ml/min; Estimated Glomerular Filt Rate > 60; Glucose 89 mg/dL (65-110); Potassium 3.7 mmol/L (3.4-5.0); Sodium 139 mmol/L (137-145); Total Protein 7.2 g/dL (6.3-8.2)
[2025-02-26 06:54] LABS: Acanthocytes 1+; Anisocytosis 3+; Basophilic Stippling Occasional; Hypochromasia 2+; Poikilocytosis 2+; Polychromasia 1+; Sickle Cells 2+; Target Cells 3+
[2025-02-26 07:03] LABS: Schistocytes 1+
[2025-02-26 07:14] LABS: Blood Urea Nitrogen < 2 mg/dL (9-20)
[2025-02-26] MEDS: oxyCODONE/ACETAMINOPHEN (*CRX) 10-325 MG TABLET 1 TAB PO ×2 (08:16→23:10)
[2025-02-26] MEDS: FOLIC ACID 1 MG TABLET PO (08:17)
--- NOTE | 2025-02-26 09:37 | PC.NURSE ---
Called for Dilaudid. Resting with eyes closed and snoring respirations upon entering the room. Continue to monitor.
[2025-02-26 14:00] VITALS: BP 118/85; PULSE 90; RESP 18; TEMP 37.1; O2SAT 96
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
[2025-02-26 21:56] VITALS: BP 123/83; PULSE 85; RESP 20; TEMP 37.1; O2SAT 98
[2025-02-27] MEDS: HYDROmorphone HCL INJ (*CRX) 1 MG/ML SYR 2 MG IV PUSH ×11 (00:29→22:47)
[2025-02-27] MEDS: LACTATED RINGERS 1,000 ML 125 ML IV CONT ×3 (04:43→20:27)
[2025-02-27 04:52] VITALS: BP 115/74; PULSE 75; RESP 20; TEMP 36.8; O2SAT 95
[2025-02-27] MEDS: oxyCODONE/ACETAMINOPHEN (*CRX) 10-325 MG TABLET 1 TAB PO ×2 (05:29→16:35)
[2025-02-27] MEDS: FOLIC ACID 1 MG TABLET PO (09:08)
[2025-02-27 09:35] LABS: Hematocrit 22.9 % (42.0-52.0); Hemoglobin 7.9 g/dL (14.0-18.0); Immature Granulocyte Percent A 0.4 % (0-0.5); Immature Reticulocyte Fraction 46.4 % (3.0-15.9); Lymphocytes Absolute Auto 3.91 K/mm3 (0.9-3.2); Mean Corpuscular HGB Conc 34.5 g/dl (32-36); Mean Corpuscular Hemoglobin 31.9 pg (26-34); Mean Corpuscular Volume 92.3 fl (80-100); Nucleated Red Blood Cells Absolute Auto 0.250 K/mm3 (0.0-0.012); Nucleated Red Blood Cells Perc 2.6 % (0.0-0.2); Platelet Count Result 314 k/mm3 (150-375); Red Blood Count 2.48 M/mm3 (4.6-6.20); Reticulocyte Hemoglobin Conten 34.8 pg (28.2-36.6); Reticulocytes Absolute 0.34 10^6/uL (0.02-0.10); White Blood Count 9.8 K/mm3 (4.5-10.0)
[2025-02-27 09:55] LABS: Alanine Aminotransferase 26 U/L (6-50); Albumin Level 4.0 g/dL (3.5-5.1); Alkaline Phosphatase 238 U/L (38-126); Anion Gap 6 mmol/L (4-12); Aspartate Amino Transferase 51 U/L (17-59); Bilirubin,Total 4.6 mg/dL (0.2-1.3); Calcium 8.3 mg/dL (8.4-10.2); Carbon Dioxide 27 mmol/L (22-30); Chloride 105 mmol/L (98-107); Estimated CRCL calculation 247 ml/min; Estimated Glomerular Filt Rate > 60; Glucose 97 mg/dL (65-110); Potassium 3.6 mmol/L (3.4-5.0); Sodium 138 mmol/L (137-145); Total Protein 7.8 g/dL (6.3-8.2)
[2025-02-27 10:00] LABS: Anisocytosis 2+; Hypochromasia 2+; Macrocytosis 1+ (NORMAL); Poikilocytosis 1+; Polychromasia 1+; Sickle Cells 2+; Target Cells 2+
[2025-02-27 10:01] LABS: Basophilic Stippling 1+; Schistocytes 1+
--- NOTE | 2025-02-27 10:09 | PC.NURSE ---
Bed elevated in air per patient request. Pt. was educated on the risk of falls. Care Giver was notified.
[2025-02-27 10:17] LABS: Blood Urea Nitrogen < 2 mg/dL (9-20)
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
[2025-02-27 14:00] VITALS: BP 103/67; PULSE 79; RESP 16; TEMP 36.6; O2SAT 98
[2025-02-27 20:00] VITALS: PULSE 80; RESP 20; O2SAT 98
[2025-02-27 20:19] VITALS: BP 125/74; PULSE 80; RESP 20; TEMP 36.9; O2SAT 98
[2025-02-27] MEDS: MELATONIN 3 MG TABLET PO (20:20)
[2025-02-28] MEDS: HYDROmorphone HCL INJ (*CRX) 1 MG/ML SYR 2 MG IV PUSH ×5 (01:07→11:20)
[2025-02-28] MEDS: LACTATED RINGERS 1,000 ML 125 ML IV CONT ×2 (03:43→12:34)
[2025-02-28 05:54] VITALS: BP 126/73; PULSE 81; RESP 20; TEMP 36.6; O2SAT 96
[2025-02-28] MEDS: FOLIC ACID 1 MG TABLET PO (09:24)
[2025-02-28 10:25] LABS: Hematocrit 23.4 % (42.0-52.0); Hemoglobin 7.9 g/dL (14.0-18.0); Immature Granulocyte Percent A 0.2 % (0-0.5); Lymphocytes Absolute Auto 3.26 K/mm3 (0.9-3.2); Mean Corpuscular HGB Conc 33.8 g/dl (32-36); Mean Corpuscular Hemoglobin 31.2 pg (26-34); Mean Corpuscular Volume 92.5 fl (80-100); Nucleated Red Blood Cells Absolute Auto 0.150 K/mm3 (0.0-0.012); Nucleated Red Blood Cells Perc 1.6 % (0.0-0.2); Platelet Count Result 287 k/mm3 (150-375); Red Blood Count 2.53 M/mm3 (4.6-6.20); White Blood Count 9.2 K/mm3 (4.5-10.0)
[2025-02-28 10:50] LABS: Alanine Aminotransferase 26 U/L (6-50); Albumin Level 3.9 g/dL (3.5-5.1); Alkaline Phosphatase 232 U/L (38-126); Anion Gap 6 mmol/L (4-12); Aspartate Amino Transferase 59 U/L (17-59); Bilirubin,Total 4.6 mg/dL (0.2-1.3); Blood Urea Nitrogen 2 mg/dL (9-20); Calcium 8.3 mg/dL (8.4-10.2); Carbon Dioxide 25 mmol/L (22-30); Chloride 104 mmol/L (98-107); Estimated CRCL calculation 247 ml/min; Estimated Glomerular Filt Rate > 60; Glucose 89 mg/dL (65-110); Potassium 3.8 mmol/L (3.4-5.0); Sodium 135 mmol/L (137-145); Total Protein 7.8 g/dL (6.3-8.2)
[2025-02-28 11:06] LABS: Reticulocytes Absolute 0.29 10^6/uL (0.02-0.10)
[2025-02-28 11:10] LABS: Immature Reticulocyte Fraction 47.1 % (3.0-15.9); Reticulocyte Hemoglobin Conten 31.3 pg (28.2-36.6)
[2025-02-28 11:14] LABS: Sickle Cells 2+
[2025-02-28 11:15] LABS: Target Cells 2+
[2025-02-28 11:16] LABS: Polychromasia Occasional
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
[2025-02-28] MEDS: HYDROmorphone HCL INJ (*CRX) 2 MG/ML VIAL IV PUSH ×3 (13:35→21:14)
[2025-02-28 13:44] VITALS: BP 109/75; PULSE 87; RESP 18; TEMP 36.9; O2SAT 95
[2025-02-28] MEDS: oxyCODONE/ACETAMINOPHEN (*CRX) 10-325 MG TABLET 1 TAB PO ×2 (15:51→23:53)
[2025-02-28 20:34] VITALS: PULSE 95; RESP 20; O2SAT 95
[2025-02-28 21:16] VITALS: BP 118/66; PULSE 84; RESP 20; TEMP 36.7; O2SAT 97
[2025-03-01] MEDS: HYDROmorphone HCL INJ (*CRX) 2 MG/ML VIAL IV PUSH ×4 (02:45→14:35)
--- NOTE | 2025-03-01 02:45 | PC.NURSE ---
Patient requested to speak to chargemaster analyst. Stated that when BOUCHRA Marx gave IV Dilaudid, that most of it leaked out. RN stated that she flushed line, gave IV med, flushed again and then patient stated it leaked out. He wanted the RN to order another one time dose of Dilaudid. RN called night WEAPONS [employer] TACTICS INSTRUCTOR Kassy, she stated there would not be ordering another one time dose of Dilaudid. Patient was informed of this, and was given his PO Percocet. BOUCHRA Chen tried to save the current IV access, but it was leaking too much, so I contacted greenhouse grower of the need for US guided IV placement. Patient had stated that he was a hard stick and did not want anyone just poking around on him and that we would need to use the US. BROKE BEATER OPERATOR came to the floor to attempt IV placement, without US. He was not certified to us US, Attempt was unsuccessful. Patient requested to speak to chargemaster analyst again, I called Talat the greenhouse grower to see if anyone else was coming to try for the IV with US, he informed me that nobody was certified tonight to use the US for IV placement. I informed patient along with BOUCHRA Chen that he would have to wait until morning for someone to try IV with US. He was obviously not happy, so another RN tried for an IV and missed. Chrystal SHOOK worked with IV and was able to temporarily keep IV. Will reassess in am, and Dr Sunshine was not comfortable changing any orders for pain meds.
[2025-03-01 04:20] VITALS: BP 106/59; PULSE 96; RESP 18; TEMP 37; O2SAT 95
--- NOTE | 2025-03-01 08:15 | PC.NURSE ---
BOUCHRA Duncan, at bedside performing IV insertion using ultrasound machine.
[2025-03-01 08:42] LABS: Hematocrit 25.0 % (42.0-52.0); Hemoglobin 8.5 g/dL (14.0-18.0); Immature Granulocyte Percent A 0.4 % (0-0.5); Immature Platelet Fraction Pct 3.2 % (0.9-11.2); Immature Reticulocyte Fraction 39.4 % (3.0-15.9); Lymphocytes Absolute Auto 3.51 K/mm3 (0.9-3.2); Mean Corpuscular HGB Conc 34.0 g/dl (32-36); Mean Corpuscular Hemoglobin 31.4 pg (26-34); Mean Corpuscular Volume 92.3 fl (80-100); Nucleated Red Blood Cells Absolute Auto 0.120 K/mm3 (0.0-0.012); Nucleated Red Blood Cells Perc 1.3 % (0.0-0.2); Platelet Count Result 312 k/mm3 (150-375); Red Blood Count 2.71 M/mm3 (4.6-6.20); Reticulocyte Hemoglobin Conten 30.2 pg (28.2-36.6); Reticulocytes Absolute 0.40 10^6/uL (0.02-0.10); White Blood Count 9.4 K/mm3 (4.5-10.0)
[2025-03-01 09:01] LABS: Alanine Aminotransferase 35 U/L (6-50); Albumin Level 4.2 g/dL (3.5-5.1); Alkaline Phosphatase 256 U/L (38-126); Anion Gap 7 mmol/L (4-12); Aspartate Amino Transferase 76 U/L (17-59); Bilirubin,Total 5.1 mg/dL (0.2-1.3); Blood Urea Nitrogen 3 mg/dL (9-20); Calcium 8.5 mg/dL (8.4-10.2); Carbon Dioxide 26 mmol/L (22-30); Chloride 103 mmol/L (98-107); Estimated CRCL calculation 233 ml/min; Estimated Glomerular Filt Rate > 60; Glucose 102 mg/dL (65-110); Potassium 4.0 mmol/L (3.4-5.0); Sodium 136 mmol/L (137-145); Total Protein 8.3 g/dL (6.3-8.2)
[2025-03-01] MEDS: LACTATED RINGERS 1,000 ML 125 ML IV CONT ×2 (09:04→16:49)
[2025-03-01] MEDS: FOLIC ACID 1 MG TABLET PO (09:06)
[2025-03-01 09:09] LABS: Anisocytosis 2+; Hypochromasia 1+; Ovalocytes 1+; Polychromasia 1+; Schistocytes 1+; Sickle Cells 2+; Target Cells 2+
[2025-03-01] MEDS: oxyCODONE/ACETAMINOPHEN (*CRX) 10-325 MG TABLET 1 TAB PO (11:34)
--- NOTE | 2025-03-01 12:23 | PC.NURSE ---
This nurse took over care of patient at 1200 and agrees with previous nurse shift assessment.
[2025-03-01 13:55] VITALS: BP 116/68; PULSE 96; RESP 18; TEMP 36.5; O2SAT 95
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
[2025-03-01] MEDS: oxyCODONE/ACETAMINOPHEN (*CRX) 5-325 MG TABLET 1 TABLET PO (17:03)
[2025-03-01] MEDS: HYDROmorphone HCL INJ (*CRX) 1 MG/ML SYR IV PUSH ×2 (18:37→22:33)
[2025-03-01 20:04] VITALS: BP 118/69; PULSE 89; RESP 20; TEMP 36.4; O2SAT 97
[2025-03-02] MEDS: HYDROmorphone HCL INJ (*CRX) 1 MG/ML SYR IV PUSH ×5 (02:34→22:57)
[2025-03-02] MEDS: LACTATED RINGERS 1,000 ML 125 ML IV CONT ×2 (02:36→08:24)
[2025-03-02 06:00] VITALS: BP 110/70; PULSE 92; RESP 20; TEMP 36.6; O2SAT 95
[2025-03-02] MEDS: FOLIC ACID 1 MG TABLET PO (08:25)
[2025-03-02 08:47] LABS: Hematocrit 24.4 % (42.0-52.0); Hemoglobin 8.2 g/dL (14.0-18.0); Immature Granulocyte Percent A 0.3 % (0-0.5); Lymphocytes Absolute Auto 2.93 K/mm3 (0.9-3.2); Mean Corpuscular HGB Conc 33.6 g/dl (32-36); Mean Corpuscular Hemoglobin 30.8 pg (26-34); Mean Corpuscular Volume 91.7 fl (80-100); Nucleated Red Blood Cells Absolute Auto 0.090 K/mm3 (0.0-0.012); Nucleated Red Blood Cells Perc 1.0 % (0.0-0.2); Platelet Count Result 302 k/mm3 (150-375); Red Blood Count 2.66 M/mm3 (4.6-6.20); White Blood Count 8.8 K/mm3 (4.5-10.0)
[2025-03-02] MEDS: oxyCODONE/ACETAMINOPHEN (*CRX) 5-325 MG TABLET 1 TABLET PO (09:03)
[2025-03-02 09:55] LABS: Alanine Aminotransferase 39 U/L (6-50); Albumin Level 4.1 g/dL (3.5-5.1); Alkaline Phosphatase 282 U/L (38-126); Anion Gap 10 mmol/L (4-12); Aspartate Amino Transferase 88 U/L (17-59); Bilirubin,Total 5.5 mg/dL (0.2-1.3); Blood Urea Nitrogen 2 mg/dL (9-20); Calcium 8.5 mg/dL (8.4-10.2); Carbon Dioxide 22 mmol/L (22-30); Chloride 105 mmol/L (98-107); Estimated CRCL calculation 238 ml/min; Estimated Glomerular Filt Rate > 60; Glucose 109 mg/dL (65-110); Potassium 4.2 mmol/L (3.4-5.0); Sodium 137 mmol/L (137-145); Total Protein 8.2 g/dL (6.3-8.2)
--- NOTE | 2025-03-02 10:04 | P.PNIM_ITS ---
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 Gonzalez, Hematology. Patient was recently admitted to [facility] 02/15-02/24. He initially presented to [facility] with increased shortness of breath and wheezing for 3 days. Transferred for concern for acute chest. Acute chest was ruled out. Narcotics were not prescribed at discharge in order to maintain his pain contract with Dr. Gonzalez. Per outside hospital notes, he can receive outpatient narcotics (up to twice per month) at an infusion center if he can remain out of the hospital for at least 7 days. There were opiates prescribed for him at discharge chronically 02/24. Patient reported that he was receiving 30mg Percocet 3 times a day scheduled and that his pain plan is 2mg IV dialydid q2 hours for 5 days followed by 1.5mg and weaning slowly. Left a message for the Hematology office 03/02 and waiting for a call back. Reviewed PDMP and recent prescriptions include: Oxycodone 10/325 (10 tabs on 02/18, 30 tabs 01/29, 30 tabs 12/31, 12/09 30 tabs, 11/11 21 tabs). 08/30/2024 Dr. Gonzalez prescribed 63 tabs for 7 days on 08/30/24 but there are no prescriptions from Dr Gonzalez since then. There is no evidence that he is getting regular prescriptions of Oxycodone 30mg. These are short courses per PDMP He has been admitted since 02/24. Initially on Dialudid 2mg q2, oxycodone 5/325, IV benadryl. Dilaudid Weaned to 1mg q4 yesterday He was prescribed Celebrex in September per review of [facility] note. 03/02 He feels that his pain has not been controlled with 1mg dilaudid. Reports pain to right abdomen and legs. Scheduled tyenol and toradol but he initially refused today. Subsequently agreed to take it in addition to other medications. Blood pressure is soft. 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 PLAN Scheduling Toradol 30mg q6 and Tylenol 1000mg TID Changed Benadryl IV to PO since there is no indication for IV benadryl Add zofran/Compazine prn for nausea Decrease dilaudid from 1mg to 0.5mg q4 prn. Offered a AUTOMATIC TRIMMING SEWER pump if he feels he needs it more frequently but he said he prefers that his nurse bring him the medication as an IV push and does not feel it works when it is in a AUTOMATIC TRIMMING SEWER. Not planning to escalate IV opiates unless starting a AUTOMATIC TRIMMING SEWER since high risk for opiate dependence and chronic pain Verfiying pain plan with Dr. Gonzalez at the hematology office [phone]. Will confirm pain plan with instructor dramatic arts but reviewed outpatient records as above IV fluids overnight Check LDH, Haptoglobin, follow bilirubin and direct bilirubin, retic, CBC. Blood count has been stable No longer able to take Hydrea as per patient. He stated that his instructor dramatic arts took him off (2) Hypokalemia: Code(s): E87.6 - Hypokalemia Status: Acute Assessment and Plan: Normalized -daily BMPs -patient was given a dose of potassium supplement p.o. -replace as necessary. (3) Elevated bilirubin: Code(s): R17 - Unspecified jaundice Status: Acute Assessment and Plan: Bilirubin elevated to 5.5. Alk phos trending up to 282. ALT normal, AST 88 NPO in AM for RUQ US Check total and direct bili Follow alk phos, RUQ/side pain Plan Pain control--weaning opiates. Time Spent With Patient Time: 67 minutes Subjective Date/time seen: 03/02/25 10:04 Interval history: Reporting right side pain, intermittent epigastric/chest pain, leg pain Patient refusing tylenol and toradol Offered a dilaudid AUTOMATIC TRIMMING SEWER but he feels that dilaudid pushes at higher doses are more effective than dilaudid AUTOMATIC TRIMMING SEWER's with smaller doses. Blood pressure soft, 99/59 Reports emesis overnight twice but did not need antiemetics overnight. Is drinking well Bilirubin trending up, checking a RUQ US in AM Exam Narrative: General - Awake and alert. No acute distress Eyes - PERRLA, EOM intact ENT - No thrush, No erythema Neck - No noticeable or palpable swelling Lymph Nodes - No lymphadenopathy Cardiovascular - RRR no m/r/g, no JVD Lungs: Clear to auscultation, No wheezing, use of accessory muscles, no crackles Skin - Skin warm and dry, no wounds or rashes Abdomen - Normal bowel sounds, abdomen soft, tender to palpation right side/laterally Extremities - No edema, cyanosis or clubbing Musculoskeletal - 5/5 strength, normal range of motion, no swollen or erythematous joints. Neurological ? Alert and oriented x 3, CN 2-12 grossly intact. Psych: Normal mood and affect Const: General: cooperative, healthy appearing, no acute distress, well developed, awake, Physically active, average body habitus and well nourished Objective Data Vital Signs Vital Signs: Vital Signs - 24 hr 03/01/25 13:55 03/01/25 20:00 03/01/25 20:04 Temperature 97.7 F 97.6 F Pulse Rate 96 89 Respiratory Rate 18 20 Blood Pressure 116/68 118/69 Pulse Oximetry 95 97 Oxygen Delivery Room Air 03/02/25 06:00 03/02/25 07:53 Temperature 97.9 F Pulse Rate 92 Respiratory Rate 20 Blood Pressure 110/70 Pulse Oximetry 95 Oxygen Delivery Room Air Intake/Output Intake/Output: Intake & Output 02/27/25 02/28/25 03/01/25 03/02/25 23:59 23:59 23:59 23:59 Intake Total 3950.8 3108.3 1508.8 2200 Output Total 5150 3650 2825 900 Balance -1199.2 -541.7 -1316.2 1300 Meds/Results Medications: Active Medications Generic Name Dose Route Start Last Admin Trade Name Freq PRN Reason Stop Dose Admin Diphenhydramine HCl 25 mg 02/24/25 21:38 03/02/25 06:49 Diphenhydramine Hcl Inj 50 Mg/Ml Vial IV PUSH 25 mg Q4H PRN Administration Itching Folic Acid 1 mg 02/25/25 09:00 03/02/25 08:25 Folic Acid 1 Mg Tablet PO 1 mg DAILY MICHEAL Administration Hydromorphone HCl 1 mg 03/01/25 18:35 03/02/25 06:49 Hydromorphone Hcl Inj (*Crx) 1 Mg/Ml Syr IV PUSH 1 mg Q4H PRN Administration Pain Rated 7-10 IF NPO Lactated Ringer's 1,000 mls @ 125 mls/hr 02/24/25 18:50 03/02/25 08:24 Lr - Lactated Ringers Iv IV CONT 125 mls/hr .Q8H MICHEAL Administration Melatonin 3 mg 02/25/25 21:00 03/01/25 22:40 Melatonin 3 Mg Tablet PO Not Given HS MICHEAL Oxycodone/Acetaminophen 1 tablet 03/01/25 20:30 03/02/25 09:03 Oxycodone/Acetaminophen (*Crx) 5-325 Mg Tablet PO 1 tablet Q6H PRN Administration Pain Rated 7-10 Radiology Results: ITS Impressions Chest X-Ray 02/24/25 14:25 Impression: No acute cardiopulmonary abnormality. Labs Labs: Laboratory Results - last 24 hr 03/02/25 08:41 WBC 8.8 RBC 2.66 L Hgb 8.2 L Hct 24.4 L MCV 91.7 MCH 30.8 MCHC 33.6 RDW 21.8 H Plt Count 302 MPV 9.9 Immature Gran % (Auto) 0.3 Neut % (Auto) 54.2 Lymph % (Auto) 33.3 [place] % (Auto) 9.1 H Eos % (Auto) 2.5 Baso % (Auto) 0.6 Lymph # (Auto) 2.93 [place] # (Auto) 0.8 H Eos # (Auto) 0.2 Baso # (Auto) 0.1 Abs Immat Gran (auto) 0.03 Absolute Neuts (auto) 4.8 Absolute Nucleated RBC 0.090 H Nucleated RBC % 1.0 H Sodium 137 Potassium 4.2 Chloride 105 Carbon Dioxide 22 Anion Gap 10 BUN 2 L Creatinine 0.48 L Estim Creat Clear Calc 238 Estimated GFR > 60 Glucose 109 Calcium 8.5 Total Bilirubin 5.5 H AST 88 H ALT 39 Alkaline Phosphatase 282 H Total Protein 8.2 Albumin 4.1 Quality VTE Prophylaxis VTE prophylaxis: mechanical ordered and pharmacologic ordered (Walking frequently ) Hospitalist MIPS Advance Care Plan I have confirmed that the patient's Advanced Care Plan is present, code status is documented, or surrogate decision maker is listed in patient medical record.: Yes
--- NOTE | 2025-03-02 13:32 | PC.NURSE ---
Offered Tylenol and Toradol as ordered for pain and patient refused. Stated, It's not going to help.
[2025-03-02 13:38] VITALS: BP 99/59; PULSE 84; RESP 16; TEMP 36.4; O2SAT 99
--- NOTE | 2025-03-02 14:57 | PC.NURSE ---
Refused Miralax and Benadryl 50mg.
[2025-03-02] MEDS: HYDROmorphone HCL INJ (*CRX) 1 MG/ML SYR 0.5 MG IV PUSH (18:50)
[2025-03-02 20:00] VITALS: PULSE 87; RESP 12; O2SAT 98
[2025-03-02 21:32] VITALS: BP 126/66; PULSE 87; RESP 14; TEMP 36.9; O2SAT 98
[2025-03-02 21:54] VITALS: RESP 12; O2SAT 98
[2025-03-02] MEDS: HYDROmorphon 0.2MG/ML PCA(*CRX 6 MG/30 ML PCA.VIAL IV CONT (21:54)
--- NOTE | 2025-03-02 22:39 | PC.NURSE ---
Attempted to set up CUSTOMER SERVICE ASSOCIATE dilaudid pump with 0.3 mg with 10 minute lock out. Max dose of 3 mg per 2 hours. CUSTOMER SERVICE ASSOCIATE pump asking for max dose for every 4 hours. Max dose Pt. can receive would be 6 mg every 4 hours. CUSTOMER SERVICE ASSOCIATE pump stated that max dose that can be given is 4 mg every 4 hours and we cannot adjust to set up what has been ordered for Pt. Pt. is asking to have dilaudid 1 mg every 4 hours restarted as he states that he has had a CUSTOMER SERVICE ASSOCIATE before and did not have much relief from it. Pt. states that what he is asking for is less than what the CUSTOMER SERVICE ASSOCIATE would be giving him. I spoke with Cristina Parry NP and explained this to her. Per telephone order from Cristina Parry NP: Pt. may have dilaudid 1 mg every 4 hours PRN for pain.
[2025-03-02] MEDS: KETOROLAC 30 MG/ML VIAL (*BKC) IV PUSH (22:46)
[2025-03-02] MEDS: oxyCODONE HCL (*CRX) 5 MG TAB IR 10 MG PO (22:47)
[2025-03-02] MEDS: LACTATED RINGERS 1,000 ML 50 ML IV CONT (23:01)
[2025-03-03] MEDS: HYDROmorphone HCL INJ (*CRX) 1 MG/ML SYR IV PUSH ×6 (02:55→23:40)
[2025-03-03] MEDS: KETOROLAC 30 MG/ML VIAL (*BKC) IV PUSH ×2 (05:34→13:48)
[2025-03-03 05:59] VITALS: BP 108/49; PULSE 82; RESP 16; TEMP 36.6; O2SAT 99
--- NOTE | 2025-03-03 08:00 | PC.NURSE ---
Patient refusing to do abdominal ultrasound.
--- NOTE | 2025-03-03 10:01 | PC.NURSE ---
Patient refusing labs
[2025-03-03] MEDS: FOLIC ACID 1 MG TABLET PO (11:18)
[2025-03-03] MEDS: LACTATED RINGERS 1,000 ML 125 ML IV CONT (11:20)
[2025-03-03 13:19] VITALS: BMI 35.2
[2025-03-03 14:00] VITALS: BP 133/86; PULSE 98; RESP 15; TEMP 36.2; O2SAT 98
--- NOTE | 2025-03-03 18:12 | PC.NURSE ---
Patient refusing lab drawls, hospitalist Umesh vivar.
--- NOTE | 2025-03-03 19:04 | P.PNIM_ITS ---
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 Gonzalez, Hematology. Patient was recently admitted to [facility] 02/15-02/24. He initially presented to [facility] with increased shortness of breath and wheezing for 3 days. Transferred for concern for acute chest. Acute chest was ruled out. Narcotics were not prescribed at discharge in order to maintain his pain contract with Dr. Gonzalez. Per outside hospital notes, he can receive outpatient narcotics (up to twice per month) at an infusion center if he can remain out of the hospital for at least 7 days. There were opiates prescribed for him at discharge chronically 02/24. Patient reported that he was receiving 30mg Percocet 3 times a day scheduled and that his pain plan is 2mg IV dialydid q2 hours for 5 days followed by 1.5mg and weaning slowly. Left a message for the Hematology office 03/02 and waiting for a call back. Reviewed PDMP and recent prescriptions include: Oxycodone 10/325 (10 tabs on 02/18, 30 tabs 01/29, 30 tabs 12/31, 12/09 30 tabs, 11/11 21 tabs). 08/30/2024 Dr. Gonzalez prescribed 63 tabs for 7 days on 08/30/24 but there are no prescriptions from Dr Gonzalez since then. There is no evidence that he is getting regular prescriptions of Oxycodone 30mg. These are short courses per PDMP He has been admitted since 02/24. Initially on Dialudid 2mg q2, oxycodone 5/325, IV benadryl. Dilaudid Weaned to 1mg q4 yesterday He was prescribed Celebrex in September per review of [facility] note. 03/02 He feels that his pain has not been controlled with 1mg dilaudid. Reports pain to right abdomen and legs. Scheduled tyenol and toradol but he initially refused today. Subsequently agreed to take it in addition to other medications. Blood pressure is soft. 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 PLAN Scheduling Toradol 30mg q6 and Tylenol 1000mg TID Changed Benadryl IV to PO since there is no indication for IV benadryl Add zofran/Compazine prn for nausea Decrease dilaudid from 1mg to 0.5mg q4 prn. Offered a UNDERWRITING INTERN pump if he feels he needs it more frequently but he said he prefers that his nurse bring him the medication as an IV push and does not feel it works when it is in a UNDERWRITING INTERN. Not planning to escalate IV opiates unless starting a UNDERWRITING INTERN since high risk for opiate dependence and chronic pain Verfiying pain plan with Dr. Gonzalez at the hematology office [phone]. Will confirm pain plan with aircraft mechanic armament but reviewed outpatient records as above IV fluids overnight Check LDH, Haptoglobin, follow bilirubin and direct bilirubin, retic, CBC. Blood count has been stable No longer able to take Hydrea as per patient. He stated that his aircraft mechanic armament took him off (2) Hypokalemia: Code(s): E87.6 - Hypokalemia Status: Acute Assessment and Plan: Normalized -daily BMPs -patient was given a dose of potassium supplement p.o. -replace as necessary. (3) Elevated bilirubin: Code(s): R17 - Unspecified jaundice Status: Acute Assessment and Plan: Bilirubin elevated to 5.5. Alk phos trending up to 282. 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 patient remains clinically stable, patient retic counts remains high, will monitor. Reporting right side pain, intermittent epigastric/chest pain, leg pain Pain control--weaning opiates. 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 patient remains clinically stable, patient retic counts remains high, will monitor. Reporting right side pain, intermittent epigastric/chest pain, leg pain Patient refusing tylenol and toradol Offered a dilaudid UNDERWRITING INTERN but he feels that dilaudid pushes at higher doses are more effective than dilaudid UNDERWRITING INTERN's with smaller doses. Blood pressure soft, 99/59 Reports emesis overnight twice but did not need antiemetics overnight. Is drinking well Bilirubin trending up, checking a RUQ US in AM, patient refused RUQ US. Review of Systems Review of Systems: All systems reviewed & are unremarkable except as noted in HPI and below Exam Narrative: Patient is comfortable, NAD HEENT: eyes are clear and none icteric LUNGS:CTA HEART: RR S1S2 ABD: BS+, Soft and nontender Lower extremities: no edema SKIN: nonjaundiced Neuro: grossly intact. Objective Data Vital Signs Vital Signs: Vital Signs - 24 hr 03/02/25 20:00 03/02/25 21:32 03/02/25 21:54 Temperature 36.9 C Pulse Rate 87 87 Respiratory Rate 12 14 12 Blood Pressure 126/66 Pulse Oximetry 98 98 98 Oxygen Delivery Room Air Fraction of Inspired Oxygen 21 03/03/25 05:59 03/03/25 08:00 03/03/25 14:00 Temperature 36.6 C 36.2 C L Pulse Rate 82 98 Respiratory Rate 16 15 Blood Pressure 108/49 L 133/86 Pulse Oximetry 99 98 Oxygen Delivery Room Air Fraction of Inspired Oxygen Intake/Output Intake/Output: Intake & Output 02/28/25 03/01/25 03/02/25 03/03/25 23:59 23:59 23:59 23:59 Intake Total 3108.3 1508.8 4680.0 322 Output Total 3650 2825 1500 600 Balance -541.7 -1316.2 3180.0 -278 Meds/Results Medications: Active Medications Generic Name Dose Route Start Last Admin Trade Name Freq PRN Reason Stop Dose Admin Acetaminophen 1,000 mg 03/02/25 13:30 03/03/25 16:46 Acetaminophen 500 Mg Tablet PO Not Given QID [facility] Diphenhydramine HCl 50 mg 03/02/25 13:25 Diphenhydramine Hcl Cap 25 Mg Capsule PO Q6H PRN Itching Enoxaparin Sodium 40 mg 03/03/25 09:00 03/03/25 11:20 Enoxaparin 40 Mg/0.4 Ml Syringe SUB-Q Not Given DAILY MICHEAL Folic Acid 1 mg 02/25/25 09:00 03/03/25 11:18 Folic Acid 1 Mg Tablet PO 1 mg DAILY MICHEAL Administration Hydromorphone HCl 1 mg 03/02/25 22:38 03/03/25 15:04 Hydromorphone Hcl Inj (*Crx) 1 Mg/Ml Syr IV PUSH 1 mg Q4H PRN Administration Pain Rated 7-10 Lactated Ringer's 1,000 mls @ 125 mls/hr 03/03/25 10:55 03/03/25 11:20 Lr - Lactated Ringers Iv IV CONT 125 mls/hr .Q8H MICHEAL Administration Ketorolac Tromethamine 30 mg 03/02/25 13:25 03/03/25 13:48 Ketorolac 30 Mg/Ml Vial (*Bkc) IV PUSH 30 mg Q6HR MICHEAL Administration Melatonin 3 mg 02/25/25 21:00 03/02/25 20:57 Melatonin 3 Mg Tablet PO Not Given HS [facility] Ondansetron HCl 4 mg 03/02/25 14:43 Ondansetron Inj 4 Mg/2 Ml Vial IV PUSH Q6H PRN Nausea And Vomiting Oxycodone HCl 10 mg 03/02/25 13:27 03/02/25 22:47 Oxycodone Hcl (*Crx) 5 Mg Tab Ir PO 10 mg Q4H PRN Administration 1st line for pain Polyethylene Glycol 17 gm 03/02/25 14:45 03/03/25 10:48 Polyethylene Glycol 3350 17 Gm Powd.Pack PO Not Given QAM [facility] Prochlorperazine Edisylate 10 mg 03/02/25 14:43 Prochlorperazine Edisylate 10 Mg/2 Ml Vial IM Q6H PRN Nausea And Vomiting Radiology Results: ITS Impressions Chest X-Ray 02/24/25 14:25 Impression: No acute cardiopulmonary abnormality.
[2025-03-03 20:00] VITALS: PULSE 83; RESP 18; O2SAT 100
[2025-03-03 21:44] VITALS: BP 125/81; PULSE 83; RESP 18; TEMP 36.8; O2SAT 100
[2025-03-04] MEDS: oxyCODONE HCL (*CRX) 5 MG TAB IR 10 MG PO ×2 (01:51→18:23)
[2025-03-04] MEDS: KETOROLAC 30 MG/ML VIAL (*BKC) IV PUSH ×4 (01:52→18:24)
[2025-03-04] MEDS: LACTATED RINGERS 1,000 ML 125 ML IV CONT ×3 (02:04→18:32)
[2025-03-04] MEDS: HYDROmorphone HCL INJ (*CRX) 1 MG/ML SYR IV PUSH ×4 (03:39→16:11)
[2025-03-04 06:00] VITALS: BP 119/81; PULSE 81; RESP 18; TEMP 36.6; O2SAT 98
[2025-03-04 07:41] LABS: Hematocrit 21.8 % (42.0-52.0); Hemoglobin 7.5 g/dL (14.0-18.0); Immature Granulocyte Percent A 0.2 % (0-0.5); Lymphocytes Absolute Auto 4.29 K/mm3 (0.9-3.2); Mean Corpuscular HGB Conc 34.4 g/dl (32-36); Mean Corpuscular Hemoglobin 30.9 pg (26-34); Mean Corpuscular Volume 89.7 fl (80-100); Nucleated Red Blood Cells Absolute Auto 0.040 K/mm3 (0.0-0.012); Nucleated Red Blood Cells Perc 0.4 % (0.0-0.2); Platelet Count Result 279 k/mm3 (150-375); Red Blood Count 2.43 M/mm3 (4.6-6.20); White Blood Count 9.3 K/mm3 (4.5-10.0)
[2025-03-04 08:01] LABS: Alanine Aminotransferase 30 U/L (6-50); Albumin Level 3.8 g/dL (3.5-5.1); Alkaline Phosphatase 229 U/L (38-126); Anion Gap 3 mmol/L (4-12); Aspartate Amino Transferase 53 U/L (17-59); Bilirubin,Total 3.9 mg/dL (0.2-1.3); Blood Urea Nitrogen 2 mg/dL (9-20); Calcium 8.3 mg/dL (8.4-10.2); Carbon Dioxide 25 mmol/L (22-30); Chloride 105 mmol/L (98-107); Estimated CRCL calculation 229 ml/min; Estimated Glomerular Filt Rate > 60; Glucose 145 mg/dL (65-110); Potassium 3.7 mmol/L (3.4-5.0); Sodium 133 mmol/L (137-145); Total Protein 7.4 g/dL (6.3-8.2)
[2025-03-04 08:20] LABS: Anisocytosis 2+; Burr Cells 1+; Hypochromasia 2+; Ovalocytes 1+; Poikilocytosis 1+; Schistocytes 1+; Sickle Cells 1+; Target Cells Occasional
[2025-03-04 09:27] LABS: Immature Reticulocyte Fraction 39.7 % (3.0-15.9); Reticulocyte Hemoglobin Conten 32.4 pg (28.2-36.6); Reticulocytes Absolute 0.22 10^6/uL (0.02-0.10)
[2025-03-04] MEDS: FOLIC ACID 1 MG TABLET PO (10:00)
--- NOTE | 2025-03-04 10:00 | PC.NURSE ---
Refused Lovenox. Explained importance of Lovenox and reported patient's refusal to Dr. Calvo.
[2025-03-04 14:00] VITALS: BP 108/55; PULSE 64; RESP 17; TEMP 36.3; O2SAT 96
--- NOTE | 2025-03-04 15:50 | P.PNIM_ITS ---
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 Gonzalez, Hematology. Patient was recently admitted to [facility] 02/15-02/24. He initially presented to [facility] with increased shortness of breath and wheezing for 3 days. Transferred for concern for acute chest. Acute chest was ruled out. Narcotics were not prescribed at discharge in order to maintain his pain contract with Dr. Gonzalez. Per outside hospital notes, he can receive outpatient narcotics (up to twice per month) at an infusion center if he can remain out of the hospital for at least 7 days. There were opiates prescribed for him at discharge chronically 02/24. Patient reported that he was receiving 30mg Percocet 3 times a day scheduled and that his pain plan is 2mg IV dialydid q2 hours for 5 days followed by 1.5mg and weaning slowly. Left a message for the Hematology office 03/02 and waiting for a call back. Reviewed PDMP and recent prescriptions include: Oxycodone 10/325 (10 tabs on 02/18, 30 tabs 01/29, 30 tabs 12/31, 12/09 30 tabs, 11/11 21 tabs). 08/30/2024 Dr. Gonzalez prescribed 63 tabs for 7 days on 08/30/24 but there are no prescriptions from Dr Gonzalez since then. There is no evidence that he is getting regular prescriptions of Oxycodone 30mg. These are short courses per PDMP He has been admitted since 02/24. Initially on Dialudid 2mg q2, oxycodone 5/325, IV benadryl. Dilaudid Weaned to 1mg q4 yesterday He was prescribed Celebrex in September per review of [facility] note. 03/02 He feels that his pain has not been controlled with 1mg dilaudid. Reports pain to right abdomen and legs. Scheduled tyenol and toradol but he initially refused today. Subsequently agreed to take it in addition to other medications. Blood pressure is soft. 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 PLAN Scheduling Toradol 30mg q6 and Tylenol 1000mg TID Changed Benadryl IV to PO since there is no indication for IV benadryl Add zofran/Compazine prn for nausea Decrease dilaudid from 1mg to 0.5mg q4 prn. Offered a QUARRYMAN pump if he feels he needs it more frequently but he said he prefers that his nurse bring him the medication as an IV push and does not feel it works when it is in a QUARRYMAN. Not planning to escalate IV opiates unless starting a QUARRYMAN since high risk for opiate dependence and chronic pain Verfiying pain plan with Dr. Gonzalez at the hematology office [phone]. Will confirm pain plan with naval inspector but reviewed outpatient records as above IV fluids overnight Check LDH, Haptoglobin, follow bilirubin and direct bilirubin, retic, CBC. Blood count has been stable No longer able to take Hydrea as per patient. He stated that his naval inspector took him off (2) Hypokalemia: Code(s): E87.6 - Hypokalemia Status: Acute Assessment and Plan: Normalized -daily BMPs -patient was given a dose of potassium supplement p.o. -replace as necessary. (3) Elevated bilirubin: Code(s): R17 - Unspecified jaundice Status: Acute Assessment and Plan: Bilirubin elevated to 5.5. Alk phos trending up to 282. 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 Reporting right side pain, intermittent epigastric/chest pain, leg pain Reporting right side pain, intermittent epigastric/chest pain, leg pain Pain control--weaning opiates. 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 Reporting right side pain, intermittent epigastric/chest pain, leg pain Patient refusing tylenol and toradol Offered a dilaudid QUARRYMAN but he feels that dilaudid pushes at higher doses are more effective than dilaudid QUARRYMAN's with smaller doses. Blood pressure soft, 99/59 Reports emesis overnight twice but did not need antiemetics overnight. Is drinking well Bilirubin trending up, checking a RUQ US in AM, patient refused RUQ US. Review of Systems Review of Systems: All systems reviewed & are unremarkable except as noted in HPI and below Exam Narrative: Patient is comfortable, NAD HEENT: eyes are clear and none icteric LUNGS:CTA HEART: RR S1S2 ABD: BS+, Soft and nontender Lower extremities: no edema SKIN: nonjaundiced Neuro: grossly intact. Objective Data Vital Signs Vital Signs: Vital Signs - 24 hr 03/03/25 20:00 03/03/25 21:44 03/04/25 06:00 Temperature 36.8 C 36.6 C Pulse Rate 83 83 81 Respiratory Rate 18 18 18 Blood Pressure 125/81 119/81 Pulse Oximetry 100 100 98 Oxygen Delivery Room Air Fraction of Inspired Oxygen 21 03/04/25 08:00 03/04/25 14:00 Temperature 36.3 C L Pulse Rate 64 Respiratory Rate 17 Blood Pressure 108/55 L Pulse Oximetry 96 Oxygen Delivery Room Air Fraction of Inspired Oxygen Intake/Output Intake/Output: Intake & Output 03/01/25 03/02/25 03/03/25 03/04/25 23:59 23:59 23:59 23:59 Intake Total 1508.8 4680.0 1962 1231.7 Output Total 2825 1500 1925 875 Balance -1316.2 3180.0 37 356.7 Meds/Results Medications: Active Medications Generic Name Dose Route Start Last Admin Trade Name Freq PRN Reason Stop Dose Admin Acetaminophen 1,000 mg 03/02/25 13:30 03/04/25 14:01 Acetaminophen 500 Mg Tablet PO Not Given QID MICHEAL Diphenhydramine HCl 50 mg 03/02/25 13:25 Diphenhydramine Hcl Cap 25 Mg Capsule PO Q6H PRN Itching Enoxaparin Sodium 40 mg 03/03/25 09:00 03/04/25 10:01 Enoxaparin 40 Mg/0.4 Ml Syringe SUB-Q Not Given DAILY MICHEAL Folic Acid 1 mg 02/25/25 09:00 03/04/25 10:00 Folic Acid 1 Mg Tablet PO 1 mg DAILY MICHEAL Administration Hydromorphone HCl 1 mg 03/02/25 22:38 03/04/25 11:59 Hydromorphone Hcl Inj (*Crx) 1 Mg/Ml Syr IV PUSH 1 mg Q4H PRN Administration Pain Rated 7-10 Lactated Ringer's 1,000 mls @ 125 mls/hr 03/03/25 10:55 03/04/25 12:04 Lr - Lactated Ringers Iv IV CONT Not Given .Q8H [facility] Ketorolac Tromethamine 30 mg 03/02/25 13:25 03/04/25 12:01 Ketorolac 30 Mg/Ml Vial (*Bkc) IV PUSH 30 mg Q6HR [facility] Administration Melatonin 3 mg 02/25/25 21:00 03/03/25 20:37 Melatonin 3 Mg Tablet PO Not Given HS MICHEAL Ondansetron HCl 4 mg 03/02/25 14:43 Ondansetron Inj 4 Mg/2 Ml Vial IV PUSH Q6H PRN Nausea And Vomiting Oxycodone HCl 10 mg 03/02/25 13:27 03/04/25 01:51 Oxycodone Hcl (*Crx) 5 Mg Tab Ir PO 10 mg Q4H PRN Administration 1st line for pain Polyethylene Glycol 17 gm 03/02/25 14:45 03/04/25 10:01 Polyethylene Glycol 3350 17 Gm Powd.Pack PO Not Given QAM [facility] Prochlorperazine Edisylate 10 mg 03/02/25 14:43 Prochlorperazine Edisylate 10 Mg/2 Ml Vial IM Q6H PRN Nausea And Vomiting Radiology Results: ITS Impressions Chest X-Ray 02/24/25 14:25 Impression: No acute cardiopulmonary abnormality. Labs Labs: Laboratory Results - last 24 hr 03/04/25 03/04/25 07:20 07:26 WBC 9.3 RBC 2.43 L Hgb 7.5 L Hct 21.8 L MCV 89.7 MCH 30.9 MCHC 34.4 RDW 20.4 H Plt Count 279 MPV 10.0 Immature Gran % (Auto) 0.2 Neut % (Auto) 39.0 L Lymph % (Auto) 46.1 H [place] % (Auto) 11.3 H Eos % (Auto) 2.9 Baso % (Auto) 0.5 Lymph # (Auto) 4.29 H [place] # (Auto) 1.1 H Eos # (Auto) 0.3 Baso # (Auto) 0.1 Abs Immat Gran (auto) 0.02 Absolute Neuts (auto) 3.6 Absolute Nucleated RBC 0.040 H Band Neutrophils % Not Reportable Nucleated RBC % 0.4 H Platelet Estimate Adequate Hypochromasia 2+ Poikilocytosis 1+ Anisocytosis 2+ Sickle Cells 1+ Target Cells Occasional Ovalocytes 1+ [place]ona Cells 1+ Schistocytes 1+ Absolute Retic 0.22 H Percent Retic 8.96 H Immature Retic Fraction 39.7 H Retic Hgb Content 32.4 Sodium 133 L Potassium 3.7 Chloride 105 Carbon Dioxide 25 Anion Gap 3 L BUN 2 L Creatinine 0.50 L Estim Creat Clear Calc 229 Estimated GFR > 60 Glucose 145 H Calcium 8.3 L Total Bilirubin 3.9 H AST 53 ALT 30 Alkaline Phosphatase 229 H Total Protein 7.4 Albumin 3.8
[2025-03-04 20:00] VITALS: PULSE 64; RESP 17; O2SAT 96
[2025-03-04 20:05] VITALS: BP 120/72; PULSE 78; RESP 18; TEMP 36.8; O2SAT 98
[2025-03-04] MEDS: HYDROmorphone HCL INJ (*CRX) 1 MG/ML SYR 0.5 MG IV PUSH (20:24)
[2025-03-05] MEDS: HYDROmorphone HCL INJ (*CRX) 1 MG/ML SYR 0.5 MG IV PUSH ×4 (00:27→13:10)
[2025-03-05] MEDS: LACTATED RINGERS 1,000 ML 125 ML IV CONT ×2 (04:32→12:14)
[2025-03-05 04:40] VITALS: BP 104/51; PULSE 89; RESP 20; TEMP 36.2; O2SAT 98
[2025-03-05] MEDS: FOLIC ACID 1 MG TABLET PO (09:05)
--- NOTE | 2025-03-05 12:37 | PM.IMPN ---
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 Gonzalez, Hematology. Patient was recently admitted to [facility] 02/15-02/24. He initially presented to [facility] with increased shortness of breath and wheezing for 3 days. Transferred for concern for acute chest. Acute chest was ruled out. Narcotics were not prescribed at discharge in order to maintain his pain contract with Dr. Gonzalez. Per outside hospital notes, he can receive outpatient narcotics (up to twice per month) at an infusion center if he can remain out of the hospital for at least 7 days. There were opiates prescribed for him at discharge chronically 02/24. Patient reported that he was receiving 30mg Percocet 3 times a day scheduled and that his pain plan is 2mg IV dialydid q2 hours for 5 days followed by 1.5mg and weaning slowly. Left a message for the Hematology office 03/02 and waiting for a call back. Reviewed PDMP and recent prescriptions include: Oxycodone 10/325 (10 tabs on 02/18, 30 tabs 01/29, 30 tabs 12/31, 12/09 30 tabs, 11/11 21 tabs). 08/30/2024 Dr. Gonzalez prescribed 63 tabs for 7 days on 08/30/24 but there are no prescriptions from Dr Gonzalez since then. There is no evidence that he is getting regular prescriptions of Oxycodone 30mg. These are short courses per PDMP He has been admitted since 02/24. Initially on Dialudid 2mg q2, oxycodone 5/325, IV benadryl. Dilaudid Weaned to 1mg q4 yesterday He was prescribed Celebrex in September per review of [facility] note. 03/02 He feels that his pain has not been controlled with 1mg dilaudid. Reports pain to right abdomen and legs. Scheduled tyenol and toradol but he initially refused today. Subsequently agreed to take it in addition to other medications. Blood pressure is soft. 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 PLAN Scheduling Toradol 30mg q6 and Tylenol 1000mg TID Changed Benadryl IV to PO since there is no indication for IV benadryl Add zofran/Compazine prn for nausea Decrease dilaudid from 1mg to 0.5mg q4 prn. Offered a ASSISTANT TO THE PRESIDENT pump if he feels he needs it more frequently but he said he prefers that his nurse bring him the medication as an IV push and does not feel it works when it is in a ASSISTANT TO THE PRESIDENT. Not planning to escalate IV opiates unless starting a ASSISTANT TO THE PRESIDENT since high risk for opiate dependence and chronic pain Verfiying pain plan with Dr. Gonzalez at the hematology office [phone]. Will confirm pain plan with fruit picker machine operator but reviewed outpatient records as above IV fluids overnight Check LDH, Haptoglobin, follow bilirubin and direct bilirubin, retic, CBC. Blood count has been stable No longer able to take Hydrea as per patient. He stated that his fruit picker machine operator took him off (2) Hypokalemia: Code(s): E87.6 - Hypokalemia Status: Acute Assessment and Plan: Normalized -daily BMPs -patient was given a dose of potassium supplement p.o. -replace as necessary. (3) Elevated bilirubin: Code(s): R17 - Unspecified jaundice Status: Acute Assessment and Plan: Bilirubin elevated to 5.5. Alk phos trending up to 282. 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 today patient is asking to stay one more day on this regiment before discharging either tomorrow or Friday, will monitor. Reporting right side pain, intermittent epigastric/chest pain, leg pain Patient refusing tylenol and toradol Offered a dilaudid ASSISTANT TO THE PRESIDENT but he feels that dilaudid pushes at higher doses are more effective than dilaudid ASSISTANT TO THE PRESIDENT's with smaller doses. Blood pressure soft, 99/59 Reports emesis overnight twice but did not need antiemetics overnight. Is drinking well Bilirubin trending up, checking a RUQ US in AM, patient refused RUQ US. Reporting right side pain, intermittent epigastric/chest pain, leg pain Pain control--weaning opiates. 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 today patient is asking to stay one more day on this regiment before discharging either tomorrow or Friday, will monitor. Reporting right side pain, intermittent epigastric/chest pain, leg pain Patient refusing tylenol and toradol Offered a dilaudid ASSISTANT TO THE PRESIDENT but he feels that dilaudid pushes at higher doses are more effective than dilaudid ASSISTANT TO THE PRESIDENT's with smaller doses. Blood pressure soft, 99/59 Reports emesis overnight twice but did not need antiemetics overnight. Is drinking well Bilirubin trending up, checking a RUQ US in AM, patient refused RUQ US. Review of Systems Review of Systems: All systems reviewed & are unremarkable except as noted in HPI and below Exam Narrative: Patient is comfortable, NAD HEENT: eyes are clear and none icteric LUNGS:CTA HEART: RR S1S2 ABD: BS+, Soft and nontender Lower extremities: no edema SKIN: nonjaundiced Neuro: grossly intact. Objective Data Vital Signs Vital Signs: Vital Signs - 24 hr 03/04/25 14:00 03/04/25 20:00 03/04/25 20:05 Temperature 36.3 C L 36.8 C Pulse Rate 64 64 78 Respiratory Rate 17 17 18 Blood Pressure 108/55 L 120/72 Pulse Oximetry 96 96 98 Oxygen Delivery Room Air Fraction of Inspired Oxygen 21 03/05/25 04:40 03/05/25 08:00 Temperature 36.2 C L Pulse Rate 89 Respiratory Rate 20 Blood Pressure 104/51 L Pulse Oximetry 98 Oxygen Delivery Room Air Fraction of Inspired Oxygen Intake/Output Intake/Output: Intake & Output 03/02/25 03/03/25 03/04/25 03/05/25 23:59 23:59 23:59 23:59 Intake Total 4680.0 1962 2631.7 4604 Output Total 1500 1925 1275 3850 Balance 3180.0 37 1356.7 754 Meds/Results Medications: Active Medications Generic Name Dose Route Start Last Admin Trade Name Freq PRN Reason Stop Dose Admin Acetaminophen 1,000 mg 03/02/25 13:30 03/05/25 11:54 Acetaminophen 500 Mg Tablet PO Not Given QID MICHEAL Diphenhydramine HCl 50 mg 03/02/25 13:25 Diphenhydramine Hcl Cap 25 Mg Capsule PO Q6H PRN Itching Enoxaparin Sodium 40 mg 03/03/25 09:00 03/05/25 08:31 Enoxaparin 40 Mg/0.4 Ml Syringe SUB-Q Not Given DAILY MICHEAL Folic Acid 1 mg 02/25/25 09:00 03/05/25 09:05 Folic Acid 1 Mg Tablet PO 1 mg DAILY MICHEAL Administration Hydromorphone HCl 0.5 mg 03/04/25 16:00 03/05/25 09:07 Hydromorphone Hcl Inj (*Crx) 1 Mg/Ml Syr IV PUSH 0.5 mg Q4H PRN Administration Pain Rated 7-10 Lactated Ringer's 1,000 mls @ 125 mls/hr 03/03/25 10:55 03/05/25 12:14 Lr - Lactated Ringers Iv IV CONT 125 mls/hr .Q8H MICHEAL Administration Ketorolac Tromethamine 30 mg 03/02/25 13:25 03/05/25 12:16 Ketorolac 30 Mg/Ml Vial (*Bkc) IV PUSH Not Given Q6HR MICHEAL Melatonin 3 mg 02/25/25 21:00 03/04/25 20:25 Melatonin 3 Mg Tablet PO Not Given HS MICHEAL Ondansetron HCl 4 mg 03/02/25 14:43 Ondansetron Inj 4 Mg/2 Ml Vial IV PUSH Q6H PRN Nausea And Vomiting Oxycodone HCl 10 mg 03/02/25 13:27 03/04/25 18:23 Oxycodone Hcl (*Crx) 5 Mg Tab Ir PO 10 mg Q4H PRN Administration 1st line for pain Polyethylene Glycol 17 gm 03/02/25 14:45 03/05/25 08:31 Polyethylene Glycol 3350 17 Gm Powd.Pack PO Not Given QAM [facility] Prochlorperazine Edisylate 10 mg 03/02/25 14:43 Prochlorperazine Edisylate 10 Mg/2 Ml Vial IM Q6H PRN Nausea And Vomiting Radiology Results: ITS Impressions Chest X-Ray 02/24/25 14:25 Impression: No acute cardiopulmonary abnormality. Quality VTE Prophylaxis VTE prophylaxis: mechanical ordered and pharmacologic ordered (Walking frequently )
[2025-03-05 14:00] VITALS: BP 118/62; PULSE 91; RESP 18; TEMP 36.7; O2SAT 98
[2025-03-05] MEDS: oxyCODONE HCL (*CRX) 5 MG TAB IR 10 MG PO (14:24)
--- NOTE | 2025-03-05 15:19 | PC.NURSE ---
Called to room by patient. Patient requesting to leave AMA. Busch, Charge Nurse, at bedside.
--- NOTE | 2025-03-06 09:11 | PM.DS ---
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 Gonzalez, Hematology. Patient was recently admitted to [facility] 02/15-02/24. He initially presented to [facility] with increased shortness of breath and wheezing for 3 days. Transferred for concern for acute chest. Acute chest was ruled out. Narcotics were not prescribed at discharge in order to maintain his pain contract with Dr. Gonzalez. Per outside hospital notes, he can receive outpatient narcotics (up to twice per month) at an infusion center if he can remain out of the hospital for at least 7 days. There were opiates prescribed for him at discharge chronically 02/24. Patient reported that he was receiving 30mg Percocet 3 times a day scheduled and that his pain plan is 2mg IV dialydid q2 hours for 5 days followed by 1.5mg and weaning slowly. Left a message for the Hematology office 03/02 and waiting for a call back. Reviewed PDMP and recent prescriptions include: Oxycodone 10/325 (10 tabs on 02/18, 30 tabs 01/29, 30 tabs 12/31, 12/09 30 tabs, 11/11 21 tabs). 08/30/2024 Dr. Gonzalez prescribed 63 tabs for 7 days on 08/30/24 but there are no prescriptions from Dr Gonzalez since then. There is no evidence that he is getting regular prescriptions of Oxycodone 30mg. These are short courses per PDMP He has been admitted since 02/24. Initially on Dialudid 2mg q2, oxycodone 5/325, IV benadryl. Dilaudid Weaned to 1mg q4 yesterday He was prescribed Celebrex in September per review of [facility] note. 03/02 He feels that his pain has not been controlled with 1mg dilaudid. Reports pain to right abdomen and legs. Scheduled tyenol and toradol but he initially refused today. Subsequently agreed to take it in addition to other medications. Blood pressure is soft. 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 PLAN Scheduling Toradol 30mg q6 and Tylenol 1000mg TID Changed Benadryl IV to PO since there is no indication for IV benadryl Add zofran/Compazine prn for nausea Decrease dilaudid from 1mg to 0.5mg q4 prn. Offered a TANKAGE SUPERVISOR pump if he feels he needs it more frequently but he said he prefers that his nurse bring him the medication as an IV push and does not feel it works when it is in a TANKAGE SUPERVISOR. Not planning to escalate IV opiates unless starting a TANKAGE SUPERVISOR since high risk for opiate dependence and chronic pain Verfiying pain plan with Dr. Gonzalez at the hematology office [phone]. Will confirm pain plan with nurse administrator but reviewed outpatient records as above IV fluids overnight Check LDH, Haptoglobin, follow bilirubin and direct bilirubin, retic, CBC. Blood count has been stable No longer able to take Hydrea as per patient. He stated that his nurse administrator took him off (2) Hypokalemia: Code(s): E87.6 - Hypokalemia Status: Acute Assessment and Plan: Normalized -daily BMPs -patient was given a dose of potassium supplement p.o. -replace as necessary. (3) Elevated bilirubin: Code(s): R17 - Unspecified jaundice Status: Acute Assessment and Plan: Bilirubin elevated to 5.5. Alk phos trending up to 282. 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 today patient is asking to stay one more day on this regiment before discharging either tomorrow or Friday, will monitor. Reporting right side pain, intermittent epigastric/chest pain, leg pain Patient refusing tylenol and toradol Offered a dilaudid TANKAGE SUPERVISOR but he feels that dilaudid pushes at higher doses are more effective than dilaudid TANKAGE SUPERVISOR's with smaller doses. Blood pressure soft, 99/59 Reports emesis overnight twice but did not need antiemetics overnight. Is drinking well Bilirubin trending up, checking a RUQ US in AM, patient refused RUQ US. Reporting right side pain, intermittent epigastric/chest pain, leg pain Pain control--weaning opiates. 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 today patient is asking to stay one more day on this regiment before discharging either tomorrow or Friday, will monitor. Reporting right side pain, intermittent epigastric/chest pain, leg pain however patient left AMA Time Spent with Patient Time attestation: Total time spent providing and/or coordinating discharge services: Discharge Plan Discharge Attending physician on discharge: Felix Og Consulting providers: Malka Davalos; Tila Pradhan Discharging Clinician: Adrienne Calvo Patient Disposition: Left Against Medical Advice Discharge Instructions: left AMA Patient Language: Hungarian Discharge Medications: No Action folic acid 1 mg tablet 1 mg PO DAILY oxycodone-acetaminophen 10-325 mg Tablet 3 tablet PO Q8H PRN (Reason: Pain Rated 7-10) Qty: 30 0RF Date of admission: 02/26/25 09:34 Primary Care Provider: Carlos,Laurent Lugo Admitting Provider: Felix Og Attending physician on admission: Felix Og Condition: Serious
== END 2025-03-05 16:06 | disposition left against medical advice (07) | DRG 662 ==
LOC: ANHED 18:32 → ANH3MEDSUR 20:18
PROVIDERS: Nurse Practitioner; Admitting Provider Internal Medicine; Emergency Provider Emergency Medicine; PCP Pathology Blood Banking & Transfusion Medicine; Visit Provider Family Medicine
DX: D57.00 Hb-SS disease with crisis, unspecified (principal); M87.812 Other osteonecrosis, left shoulder; M87.811 Other osteonecrosis, right shoulder; M87.851 Other osteonecrosis, right femur; M87.852 Other osteonecrosis, left femur; L91.0 Hypertrophic scar; W45.8XXS Other foreign body or object entering through skin, sequela; E87.6 Hypokalemia; G89.29 Other chronic pain; R17 Unspecified jaundice; R11.10 Vomiting, unspecified; Z53.29 Procedure and treatment not carried out because of patient's decision for other reasons; Z87.828 Personal history of other (healed) physical injury and trauma; Z79.891 Long term (current) use of opiate analgesic; Z86.19 Personal history of other infectious and parasitic diseases; I69.311 Memory deficit following cerebral infarction
CPT/HCPCS: 36415; 71046; 80048; 80053; 83605; 84484; 85025; 85027; 85046; 85055; 85610; 85730; 93005; 96361; 96374; 96375; 96376; 99285; A9270; G0378; J1171; J1200; J1885; J7120

== ENCOUNTER 2025-03-31 05:41 | Emergency (ER) | payer MEDICAID, SELFPAY ==
--- OUTSIDE RECORDS SUMMARY | 2025-03-18 18:15 | XMS_ITS | Encounter Summary ---
Author Organization [facility] Address [address] [place] [address] Care Team Providers Care Auto Tech Name Role Phone Unavailable Primary Care Provider Unavailabl e Reason for Visit * Auth/Cert (Routine) Specialty Diagnoses / Procedures Referred By Contkimber t Referred To Contact Oncology Diagnoses Sickle Cell Pain Adore Quinonez MD [address] [address] Phone: tel: fax: [facility] [address] [place] [address] Phone: tel: fax: Referral ID Status Reason Start Date Expiration Date Visits Re quested Visits Authorized [id number] 1 1 Encounter Details Date Type Department Care Team (Latest Contact Info) Description 03/18/2025 7:15 PM CDT - 03/30/2025 1:20 PM DOCUMENT REVIEW SPECIALIST Hospital Encounter [facility] [address] [place] [address] Adore Quinonez MD [address] [address] Guadalupe Yates MD [address] [address] Freda Crowder DO [address] [facility] [address] [place] [address] Jamir Armas MD [address] [place] [address] Sickle cell pain crisis (CMS/HCC) Discharge Disposition: Home or Self Care Social History Tobacco Use Types Packs/Day Years Used Date Smoking Tobacco: Never Smokeless Tobacco: Never Alcohol Use Standard Drinks/Week Comments Not Currently 0 (1 standard drink = 0.6 oz pur e alcohol) Food Insecurity Answer Date Recorded Do you find you are eating l ess than you should because you can t pay for food? No 03/19/2025 Transportation Needs Answer Date Record ed Have you gone without health care because you didn t have a way to get there? Or worry about transportation for future doctor visits, pick and shovel worker medication, etc.? No 2024 Housing Stability Answer Date Recorded Do you worry you won t have a steady place to sleep or struggle to pay rent or mortgage? No 03/19/2025 Utility Needs Answer Date Recorded Do you have difficulty payin g for utility costs (electric, water or gas bills)? No 03/19/2025 Medication Needs Answer Date Recorded Have you skipped taking medi cation due to cost or worry you can t afford new medications? No 03/19/2025 Feeling Safe Answer Date Recorded Are you in a relationship wi th someone who hurts you emotionally and/or physically? No 03/19/2025 Food Insecurity Answer Date Recorded Patient needs follow up regardin 12/09/2024 Transportation Needs Answer Date Record ed Patient needs follow up regardin 10/22/2024 Housing Stability Answer Date Recorded Social/Environmental Concerns No concerns Utility Needs Answer Date Recorded Patient needs follow up regardin 12/09/2024 Sex and Gender Information Value Date Recorded Sex Assigned at Not on file Legal Sex Male 7:02 AM DOCUMENT REVIEW SPECIALIST Gender Identity Not on file Sexual Orientation Not on file documented as of this encounter Last Filed Vital Signs Vital Sign Reading Time Taken Comments Blood Pressure 132/86 03/30/2025 12:22 PM DOCUMENT REVIEW SPECIALIST Pulse 77 03/30/2025 12:22 PM DOCUMENT REVIEW SPECIALIST Temperature 36.7 C (98.1 F) 03/30/2025 12:22 PM DOCUMENT REVIEW SPECIALIST Respiratory Rate 22 03/30/2025 12:22 PM DOCUMENT REVIEW SPECIALIST Oxygen Saturation 98% 03/30/2025 12:22 PM DOCUMENT REVIEW SPECIALIST Inhaled Oxygen Concentration - - Weight 106.6 kg (235 lb) 03/21/2025 6:06 PM CDT Height 177.8 cm (5' 10) 03/21/2025 6:06 PM CDT Body Mass Index 33.72 03/21/2025 6:06 PM CDT documented in this encounter Discharge Summaries * Jamir Armas MD - 03/30/2025 10:45 AM CST [facility] Adult Hospitalist Discharge Summary Johnny Simon 29 y.o. male 1995 CSN: [id number] Date of Admission: 03/18/2025 Date of Discharge: See Date of Service Discharging Physician: Jamir Armas MD LOS: 12 days PCP: No primary care provider on file. Activity: activity as tolerated. Dispo: home Diet: DIET GENERAL Effective Now Code Status at Discharge: Full Code Wound Care: None needed Admitting Dx: <principal problem not specified> Discharge Diagnoses: Active Hospital Problems Diagnosis S/P splenectomy Sickle cell pain crisis (CMS/[facility]) Resolved Hospital Problems No resolved problems to display. Discharge medications and new prescriptions: Medication List CHANGE how you take these medications oxyCODONE-acetaminophen 10-325 mg Tablet Commonly known as: PERCOCET What changed: how much to take how to take this when to take this reasons to take this Another medication with the same name was removed. Continue taking this medication, and follow the directions you see here. Take 3 Tablets by mouth every 8 hours as needed for Pain, Severe for up to 11 days. Max Daily Amount: 9 Tablets. Signed by: Dr. Jerry Armas Quantity: 99 Tablet Refills: 0 CONTINUE taking these medications folic acid 1 mg tablet Commonly known as: FOLVITE Take 1 mg by mouth daily. Refills: 0 naloxone 4 mg/spray Gary, Non-Aerosol Commonly known as: NARCAN EMERGENCY USE ONLY: Administer 1 spray (4 mg) in one nostril one time. May repeat in alternating nostrils every 2-3 min until responsive or EMS arrives. Signed by: Dr. Connor Smith Quantity: 2 Each Refills: 3 Where to Get Your Medications These medications were sent to [address] [place] ., [facility] [address] Hours: Open Daily 8 am - 12 am (midnight) oxyCODONE-acetaminophen 10-325 mg Tablet Consultants: IP CONSULT TO IV TEAM IP CONSULT TO IV TEAM Significant Diagnostic Studies This Admission: Results for orders placed during the hospital encounter of 03/18/25 XR CHEST PA OR AP 1 VW Narrative EXAM: PORTABLE AP CHEST DATE: 03/25/2025 6:34 AM HISTORY: Chest Pain. See Reason for Exam FINDINGS: There is marked cardiomegaly increased from December 22, 2024. There is interstitial edema. There is no consolidation. There is no pleural effusion or pneumothorax DICTATION LOCATION: Location 1 - [facility] .lastus Results for orders placed during the hospital encounter of 09/23/24 CT ABDOMEN PELVIS W CONTRAST Narrative EXAM: CT ABDOMEN PELVIS W CONTRAST, 09/23/2024 11:01 PM HISTORY: 28 years Male RLQ abdominal pain TECHNIQUE: Axial CT of the abdomen and pelvis after the intravenous administration of IOPAMIDOL 61 % INTRAVENOUS SOLUTION (MULTI-DOSE BULK PACK) Given:90 mL IV. Oral contrast was not administered for the study. Sagittal and coronal reformats were generated. In accordance with CT policies/protocols and the ALARA principal, radiation dose reduction techniques (such as automated exposure control, adjustment of mA/kV according to patient's size and/or iterative reconstruction technique) were utilized for this examination. COMPARISONS: 11/06/2023 FINDINGS: Lung bases: Unremarkable. Liver: Unremarkable. Gallbladder/biliary:Cholecystectomy. No biliary dilatation. Spleen: Autoinfarcted spleen. Adrenal glands: Unremarkable. Pancreas: Unremarkable. Kidneys: No renal stones or hydronephrosis. Bowel: No bowel obstruction or acute inflammatory changes. No diverticulitis or appendicitis. No free air. Vascular/aorta: Normal caliber abdominal aorta. Lymph nodes: Prominent mesenteric lymph nodes similar to prior. Bladder: Unremarkable. Reproductive: Unremarkable as visualized. Abdominal wall: No hernia identified. Osseous structures: No destructive bone lesions. Bone changes of sickle cell disease. Impression : * No acute findings within the abdomen/pelvis. No appendicitis. * Prominent mesenteric lymph nodes similar to prior. DICTATION LOCATION: Location 4 Labs from this Hospitalization Needing Follow Up: none Discharge Lab Data: Lab Results Component Value Date WBC 8.6 03/29/2025 HGB 8.4 (L) 03/29/2025 HCT 24.9 (L) 03/29/2025 PLT 292 03/29/2025 NA 139 03/29/2025 CL 106 03/29/2025 K 3.6 03/29/2025 CO2 23 03/29/2025 BUN 2 (L) 03/29/2025 CREAT 0.51 (L) 03/29/2025 GLUCOSE 94 03/29/2025 AST 57 (H) 03/23/2025 ALT 25 03/23/2025 CRP 3.2 04/16/2024 Discharge Exam: BP 136/64 (BP Location: Right arm, Patient Position (BP): Supine) Pulse 88 Temp 98.5 ??F (36.9 ??C) (Oral) Resp 18 Ht 5' 10 (1.778 m) Wt 106.6 kg (235 lb) SpO2 97% BMI 33.72 kg/m?? Physical Exam: General appearance alert, cooperative, no distress, appears stated age Lungs clear to auscultation bilaterally Heart regular rate and rhythm, S1, S2 normal, no murmur, click, rub or gallop Abdomen soft, non-tender. Bowel sounds normal. No masses, No organomegaly Extremities extremities normal, atraumatic, no cyanosis or edema Skin Skin color, texture, turgor normal. No rashes or lesions Hospital Course: 29-year-old male admitted to the hospital secondary to sickle cell crisis. Patient was transferred from outside hospital for us to take care of the patient sickle cell crisis. Patient's pain medications had different variability due to different providers taking care of the patient. Patient received a total of 10 days of IV narcotics and was no longer in pain his blood work looks back to better than baseline and he will follow-up with his residential tech on March 11, 2025. Patient was given enough Percocet until his appointment with his residential tech. Of note after looking through [employer] aware patient was noted to have 60 pills that he had picked up from between February 13 to today even thoughhe was admitted to the hospital when asking the patient about who was getting his pain medications he stated to me that he does not know who is picking up his medications and unable to tell me where they are at. Did discuss with the patient in detail that he needs to speak to his residential tech to make sure thathis medical reconciliation is accurate in his visits because currently they are inaccurate and he is stated to be taking OxyContin and oxycodone now Percocet for his pain management. This needs to be updated in fixed by his primary residential tech Dr. Gonzalez Explained to the patient that if he gets readmitted again we will have better pain management for up to 48 to 72 hours and transition him over to orals quicker to reduce his length of stay on his next admission Nutritional status and in-house recommendations: Current Diet and/or Nutritional Supplementation ordered: DIET GENERAL Effective Now Discharge Condition: improving. Follow-up: No primary care provider on file. in 5 days. More than 30 minutes were spent in this discharge activity. Signed: Jamir Armas MD 03/30/2025, 10:45 AM MENT REVIEW SPECIALIST documented in this encounter Medications at Time of Discharge oxyCODONE-acetam inophen (PERCOCET) 10-325 mg TabletIndication s:Sickle cell pain crisis (CMS/HCC) Take 3 Tablets by mouth every 8 hours as needed for severe pain for up to 11 days. Max Daily Amount: 9 Tablets. 99 Tablet 03/30/2025 1:11 PM DOCUMENT REVIEW SPECIALIST 03/30/2025 naloxone (NARCAN) 4 mg/spray Gary, Non-Aerosol EMERGENCY USE ONLY: Administer 1 spray (4 mg) in one nostril one time. May repeat in alternating nostrils every 2-3 min until responsive or EMS arrives. 2 Each 3 09/07/2024 folic acid (FOLVITE) 1 mg tablet Take 1 mg by mouth daily. documented as of this encounter Progress Notes * Zunilda Rodriguez LPN - 03/30/2025 1:32 PM CST Johnny Simon will be discharged via wheelchair to home. Johnny Simon is accompanied by and will be transported via cab. MENT REVIEW SPECIALIST * Jamir Armas MD - 03/29/2025 12:12 PM CST [facility] Adult Hospitalist Progress Note Admit Date: 03/18/2025 Date of Note: 03/29/2025, 12:14 PM LOS: 11 days Assessment and Plan: Sickle cell disease with a history of Avascular necrosis s/p hip sx and asplenia - Continue scheduled percocet 10-325mg 2 tabs->3 tabs TID (back to USER EXPERIENCE LEAD dosing) + IV dilaudid 1.5->1mg Q3 hours PRN spoke to the patient this morning and this IV dilaudid will be discontinued today and he will not have it overnight. Do not restart IV meds I have a phone call out to Dr. Gonzalez but the nurse stated he may not get back to me today. He is a patient at that clinic and saw them in January and has another appointment on April 11 2025 Pt is eating and drinking fine unclear why he is on IVF as he has no signs of sickling at this timeso will stop at 7 pm tonight CTA from [facility] USER EXPERIENCE LEAD without acute abnl, no PNA - Pt states he has a pain contract with Dr. Gonzalez and other providers are unable to order opioidsfor him; team is looking into this as pt states he does not currently have any pain meds at home. Looking at PMPD you will find patient has received 60 pills of Oxycodone- Acetaminophen from 02/15/2025-03/15/2025 which is peculiar to me Because the patient was admitted at [facility] from03/06 to 03/17 and after he was discharged from [facility] he presented to [facility] and then into our hospital for the remainder of the time. When asked patient states that hehas no pain medications at home unclear where the pills that were picked up from the pharmacy are currently located Chronic Conditions. Acute on chronic anemia - s/p 1u PRBC 03/22 and H/H ~ 8->9->10s; retic count is coming down and is the best it has been for >1 year Complex pain syndrome - see above Multiple hospital stays - Not allowed at several hospitals. Hydrea toxicity - Noted Morphine allergy - Noted Pain seeking behaviors - Noted Mild hypokalemia - improved with replacement Nutrition: Current Diet and/or Nutritional Supplementation ordered: DIET GENERAL Effective Now Quality/Safety/Core Measures/Disposition Planning: DVT Prophylaxis - heparin PT POC OT POC Clark catheter:absent Current Code Status -Full Code Plan discussed with patient, questions answered. Estimated Discharge Day: 03/29/2025 Current Planned Disposition - Dispo: home tomorrow morning. Subjective Previous history of present illness and review of systems have been reviewed today as documented inthe H&P on 03/18/2025; medications, labs, studies, notes, orders and consults have been reviewed. I have reviewed the notes from admission. Spoke to the patient this morning he stated that he wants 1 more day of IV narcotics and will be discharged home tomorrow. Told him that this will be the game plan IV narcotics will be discontinued at 9 PM tonight and he will be discharged home tomorrow morning. Objective BP 126/78 Pulse 82 Temp 98.1 ??F (36.7 ??C) (Oral) Resp 16 Ht 5' 10 (1.778 m) Wt 106.6 kg (235 lb) SpO2 100% BMI 33.72 kg/m?? Temp (24hrs), Av.4 ??F (36.9 ??C), Min:98.1 ??F (36.7 ??C), Max:98.7 ??F (37.1 ??C) Moderate amount stool (03/23/25 1217) Exam: Gen alert, cooperative, no distress, appears stated age Lungs clear to auscultation bilaterally Heart regular rate and rhythm, S1, S2 normal, no murmur, click, rub or gallop Abdomen soft, non-tender. Bowel sounds normal. No masses, No organomegaly Extremities extremities normal, atraumatic, no cyanosis or edema Mental Status Alert and oriented x 4 Data: I have reviewed all new labs and studies resulted and pertinent ones are noted above On the day of the visit, I spent 50 minutes providing care to this patient including Preparing to see the patient, Obtaining and/or reviewing separately obtained history, Performing a medically appropriate examination and/or evaluation, Counseling and educating the patient/family/caregiver, Ordering medications, tests or procedures, Documenting clinical information in the medical record, Referring and communication with other health healthcare educator (not separately reported), Independently interpreting results and communicating results to the patient/family/caregiver (not separately reported), and Care coordination (not separately reported). Jamir Armas MD Please contact me via [email or web address] Secure Chat from 7am-7pm After hours please place E-ticket to [facility] MENT REVIEW SPECIALIST * Freda Crowder DO - 03/28/2025 12:00 PM CST [facility] Adult Hospitalist Progress Note Admit Date: 03/18/2025 Date of Note: 03/28/2025, 12:32 PM LOS: 10 days Assessment and Plan: Sickle cell disease H/o acute chest syndrome Asplenic Avascular necrosis s/p hip sx - Continue scheduled percocet 10-325mg 2 tabs->3 tabs TID (back to USER EXPERIENCE LEAD dosing) + IV dilaudid 1.5->1mg Q3 hours PRN + scheduled IV toradol 10mg Q12h (per pt preference). - Continue IVF (which was not running despite it being ordered); discussed with nursing - CTA from [facility] EXPERIENCE LEAD without acute abnl, no PNA - No hypoxia noted - Wean down IV pain meds as able - Follows outpatient with Dr. Gonzalez, hematology at [facility]; next appt has been confirmed to be 04/11 and team has left a message to see if this can be moved up - Dr. Santiago is following; appreciate her assistance; agree it would be useful to have an acute care plan that can be used consistently when pt comes to [facility] - Pt states he has a pain contract with Dr. Gonzalez and other providers are unable to order opioidsfor him; team is looking into this as pt states he does not currently have any pain meds at home Acute on chronic anemia - s/p 1u PRBC 03/22 and H/H ~ 8->9->10s; retic count is coming down and is the best it has been for >1 year Complex pain syndrome - see above Multiple hospital stays - Not allowed at several hospitals. Hydrea toxicity - Noted Morphine allergy - Noted Pain seeking behaviors - Noted Mild hypokalemia - improved with replacement Chest wall pain - like related to above sickle cell pain crisis; is reproducible on exam and located more so on R side thus likely MSK related; EKG w/o ST-T wave changes and troponin neg; cxray w/o consolidations although revealing cardiomegaly; TTE with normal EF; lidocaine patch Diarrhea? - GI path panel was canceled yesterday; C.diff pending Nutrition: Current Diet and/or Nutritional Supplementation ordered: DIET GENERAL Effective Now Quality/Safety/Core Measures/Disposition Planning: DVT Prophylaxis - heparin PT POC OT POC Clark catheter:absent Current Code Status -Full Code Plan discussed with patient and nurse, questions answered. Estimated Discharge Day: ~1d Current Planned Disposition - Dispo: home Subjective Previous history of present illness and review of systems have been reviewed today as documented inthe H&P on 03/18/2025; medications, labs, studies, notes, orders and consults have been reviewed. I have reviewed the notes from admission. Today the pt reports that he is still having diffuse pain; states some confusion with nursing staffyesterday not giving his pain meds on time and staying on top of pain. Pt also asks about IVF; theywere not running despite them being ordered. Extensive discussion was had with pt about discharge planning, including current labs including hgb/retic count that are improving. He says that despite this he is still having significant pain. He states that he does not have any pain medications at home and has a pain contract with Dr. Gonzalez. After extensive discussions he feels he would be ready to go home tomorrow. Objective BP 128/88 (BP Location: Right arm, Patient Position (BP): Sitting) Pulse 65 Temp 98.4 ??F (36.9??C) (Oral) Resp 16 Ht 5' 10 (1.778 m) Wt 106.6 kg (235 lb) SpO2 98% BMI 33.72 kg/m?? Nodata recorded. Moderate amount stool (03/23/25 1217) Exam: Gen alert, cooperative, no distress, appears stated age Lungs clear to auscultation bilaterally Heart regular rate and rhythm, no murmur; some chest wall TTP Abdomen soft, non-tender. Bowel sounds normal. Extremities extremities normal, atraumatic, no cyanosis or edema Data: I have reviewed all new labs and studies resulted and pertinent ones are noted above On the day of the visit, I spent 60 minutes providing care to this patient including Preparing to see the patient, Obtaining and/or reviewing separately obtained history, Performing a medically appropriate examination and/or evaluation, Counseling and educating the patient/family/caregiver, Ordering medications, tests or procedures, Documenting clinical information in the medical record, Referring and communication with other health healthcare educator (not separately reported), Independently interpreting results and communicating results to the patient/family/caregiver (not separately reported), Care coordination (not separately reported), and Excluding time spent performing separately billed procedures and/or services. Freda Crowder DO Please contact me via [employer] Secure Chat from 7am-7pm After hours please place [facility] MENT REVIEW SPECIALIST MENT REVIEW SPECIALIST MENT REVIEW SPECIALIST * Zahida Ramos RD - 03/28/2025 10:08 AM CST Images from the original note were not included. CLINICAL DIETITIAN PROGRESS NOTE [facility] Nutrition Risk Screen (LOS) Pt screened for length of stay. Pt with adequate po intake- currently eating 100% at meals. Alloweddouble protein at meals. No nutrition intervention planned unless consulted or pt falls into nutrition risk. Declines Ensure and 10oz shakse previous admissions. Will monitor po intake PRN. MENT REVIEW SPECIALIST * Freda Crowder DO - 03/27/2025 11:59 AM CST [facility] Adult Hospitalist Progress Note Admit Date: 03/18/2025 Date of Note: 03/27/2025, 1:59 PM LOS: 9 days Assessment and Plan: Sickle cell disease H/o acute chest syndrome Asplenic Avascular necrosis s/p hip sx - Continue scheduled percocet 10-325mg 2 tabs TID (USER EXPERIENCE LEAD on 3 tabs TID) + IV dilaudid 1.5mg Q3 hours PRN (increased dose to 2mg for a few doses and then back down per our extensive discussion) + scheduled IV toradol 10mg Q12h (per pt preference). - Continue IVF - CTA from [facility]ER EXPERIENCE LEAD without acute abnl, no PNA - No hypoxia noted - Wean down IV pain meds as able - Follows outpatient with Dr. Gonzalez, hematology at [facility]; trying to confirm when his next appt is but he tells me it is 04/11 - Dr. Santiago is following; appreciate her assistance; agree it would be useful to have an acute care plan that can be used consistently when pt comes to [facility] on chronic anemia - H/H ~ 7 with elevated retic count which is compensatory; s/p 1u PRBC 03/22 and hgb is now 8s with elevated retic count; some labs still pending today but overall is stable Complex pain syndrome - see above Multiple hospital stays - Not allowed at several hospitals. Hydrea toxicity - Noted Morphine allergy - Noted Pain seeking behaviors - Noted Mild hypokalemia - improved with replacement Chest wall pain - like related to above sickle cell pain crisis; is reproducible on exam and located more so on R side thus likely MSK related; EKG w/o ST-T wave changes and troponin neg; cxray w/o consolidations although revealing cardiomegaly; TTE with normal EF; lidocaine patch Diarrhea? - GI path panel was canceled yesterday; will order C.diff Nutrition: Current Diet and/or Nutritional Supplementation ordered: DIET GENERAL Effective Now Quality/Safety/Core Measures/Disposition Planning: DVT Prophylaxis - heparin PT POC OT POC Clark catheter:absent Current Code Status -Full Code Plan discussed with patient and nurse, questions answered. Estimated Discharge Day: ~1d Current Planned Disposition - Dispo: home Subjective Previous history of present illness and review of systems have been reviewed today as documented inthe H&P on 03/18/2025; medications, labs, studies, notes, orders and consults have been reviewed. I have reviewed the notes from admission. Today the pt reports that he is still having discomfort and that is pain is not controlled. States that his next heme/onc appointment with Dr. Gonzalez is not tomorrow and that it is 04/11 however apparently unable to access his mychart to let me confirm this. Still notes some diarrhea. Objective BP 109/68 (BP Location: Right arm, Patient Position (BP): Supine) Pulse 67 Temp 98.4 ??F (36.9 ??C) (Oral) Resp 18 Ht 5' 10 (1.778 m) Wt 106.6 kg (235 lb) SpO2 94% BMI 33.72 kg/m?? Temp (24hrs), Av.2 ??F (36.8 ??C), Min:97.8 ??F (36.6 ??C), Max:98.4 ??F (36.9 ??C) Moderate amount stool (03/23/25 1217) Exam: Gen alert, cooperative, no distress, appears stated age Lungs clear to auscultation bilaterally Heart regular rate and rhythm, no murmur; some chest wall TTP Abdomen soft, non-tender. Bowel sounds normal. Extremities extremities normal, atraumatic, no cyanosis or edema Data: I have reviewed all new labs and studies resulted and pertinent ones are noted above On the day of the visit, I spent 50 minutes providing care to this patient including Preparing to see the patient, Obtaining and/or reviewing separately obtained history, Performing a medically appropriate examination and/or evaluation, Counseling and educating the patient/family/caregiver, Ordering medications, tests or procedures, Documenting clinical information in the medical record, Referring and communication with other health healthcare educator (not separately reported), Independently interpreting results and communicating results to the patient/family/caregiver (not separately reported), Care coordination (not separately reported), and Excluding time spent performing separately billed procedures and/or services. Freda Crowder DO Please contact me via S3Bubble Secure Chat from 7am-7pm After hours please place [facility] * Freda Crowder DO - 03/26/2025 12:14 PM CDT [facility] Adult Hospitalist Progress Note Admit Date: 03/18/2025 Date of Note: 03/26/2025, 1:14 PM LOS: 8 days Assessment and Plan: Sickle cell disease H/o acute chest syndrome Asplenic Avascular necrosis s/p hip sx - Continue scheduled percocet 10-325mg 2 tabs TID (USER EXPERIENCE LEAD on 3 tabs TID) + IV dilaudid 1.5mg Q3 hours PRN + scheduled IV toradol 10mg Q12h (per pt preference). - Continue IVF - CTA from [facility] USER EXPERIENCE LEAD without acute abnl, no PNA - No hypoxia noted - Wean down IV pain meds as able - Follows outpatient with Dr. Gonzalez, hematology at [facility] - Dr. Santiago is following; appreciate her assistance; agree it would be useful to have an acute care plan that can be used consistently when pt comes to [facility] on chronic anemia - H/H ~ 7 with elevated retic count which is compensatory; s/p 1u PRBC 03/22 and hgb is now 8s with elevated retic count; some labs still pending today Complex pain syndrome - see above Multiple hospital stays - Not allowed at several hospitals. Hydrea toxicity - Noted Morphine allergy - Noted Pain seeking behaviors - Noted Mild hypokalemia - improved with IVF Chest wall pain - like related to above sickle cell pain crisis; is reproducible on exam and located more so on R side thus likely MSK related; EKG w/o ST-T wave changes and troponin neg; cxray w/o consolidations although revealing cardiomegaly; will order TTE for further evaluation and pt would like to get another cxray; lidocaine patch Diarrhea? - Ordered GI path panel Nutrition: Current Diet and/or Nutritional Supplementation ordered: DIET GENERAL Effective Now Quality/Safety/Core Measures/Disposition Planning: DVT Prophylaxis - heparin PT POC OT POC Clark catheter:absent Current Code Status -Full Code Plan discussed with patient and nurse, questions answered. Estimated Discharge Day: ~2d Current Planned Disposition - Dispo: home Subjective Previous history of present illness and review of systems have been reviewed today as documented inthe H&P on 03/18/2025; medications, labs, studies, notes, orders and consults have been reviewed. I have reviewed the notes from admission. Today the pt reports that he has some discomfort throughout including his R chest wall and also notes some diarrhea. No abd pain or emesis but some mild nausea. Objective BP 115/62 (BP Location: Right arm, Patient Position (BP): Lying right side) Comment (BP Location): forearm Pulse 78 Temp 98.3 ??F (36.8 ??C) (Oral) Resp 16 Ht 5' 10 (1.778 m) Wt 106.6 kg (235 lb) SpO2 96% BMI 33.72 kg/m?? Temp (24hrs), Av.4 ??F (36.9 ??C), Min:98 ??F (36.7 ??C), Max:98.9 ??F (37.2 ??C) Moderate amount stool (03/23/25 1217) Exam: Gen alert, cooperative, no distress, appears stated age Lungs clear to auscultation bilaterally Heart regular rate and rhythm, no murmur; some chest wall TTP Abdomen soft, non-tender. Bowel sounds normal. Extremities extremities normal, atraumatic, no cyanosis or edema Data: I have reviewed all new labs and studies resulted and pertinent ones are noted above On the day of the visit, I spent 50 minutes providing care to this patient including Preparing to see the patient, Obtaining and/or reviewing separately obtained history, Performing a medically appropriate examination and/or evaluation, Counseling and educating the patient/family/caregiver, Ordering medications, tests or procedures, Documenting clinical information in the medical record, Referring and communication with other health healthcare educator (not separately reported), Independently interpreting results and communicating results to the patient/family/caregiver (not separately reported), Care coordination (not separately reported), and Excluding time spent performing separately billed procedures and/or services. Freda Crowder DO Please contact me via S3Bubble Secure Chat from 7am-7pm After hours please place [facility] * Freda Crowder DO - 03/25/2025 10:49 AM CDT [facility] Adult Hospitalist Progress Note Admit Date: 03/18/2025 Date of Note: 03/25/2025, 11:49 AM LOS: 7 days Assessment and Plan: Sickle cell disease H/o acute chest syndrome Asplenic Avascular necrosis s/p hip sx - Continue scheduled percocet 10-325mg 2 tabs TID (USER EXPERIENCE LEAD on 3 tabs TID) + IV dilaudid 1.5mg Q3 hours PRN + scheduled IV toradol 10mg Q12h (per pt preference). - Continue IVF - CTA from OSH USER EXPERIENCE LEAD without acute abnl, no PNA - No hypoxia noted - Wean down IV pain meds as able - Follows outpatient with Dr. Gonzalez, hematology at [facility] - Dr. Santiago is following; appreciate her assistance; agree it would be useful to have an acute care plan that can be used consistently when pt comes to [facility] Acute on chronic anemia - H/H ~ 7 with elevated retic count which is compensatory; s/p 1u PRBC 03/22 and hgb is now 8s with elevated retic count; labs still pending today Complex pain syndrome - see above Multiple hospital stays - Not allowed at several hospitals. Hydrea toxicity - Noted Morphine allergy - Noted Pain seeking behaviors - Noted Mild hypokalemia - labs still pending today; looks like he refused 1/2 of his po Kcl ordered yesterday Chest wall pain - like related to above sickle cell pain crisis; is reproducible on exam and located more so on R side thus likely MSK related; EKG w/o ST-T wave changes; cxray w/o consolidations although revealing cardiomegaly; will order TTE and troponin for further evaluation Nutrition: Current Diet and/or Nutritional Supplementation ordered: DIET GENERAL Effective Now Quality/Safety/Core Measures/Disposition Planning: DVT Prophylaxis - heparin PT POC OT POC Clark catheter:absent Current Code Status -Full Code Plan discussed with patient and nurse, questions answered. Estimated Discharge Day: ~2d Current Planned Disposition - Dispo: home Subjective Previous history of present illness and review of systems have been reviewed today as documented inthe H&P on 03/18/2025; medications, labs, studies, notes, orders and consults have been reviewed. I have reviewed the notes from admission. Today the pt reports that he has some diffuse body pains but overall not worsening. Does note some R sided chest wall pain currently as well as a runny nose. No cough, SOB. Objective BP 113/88 (BP Location: Right arm, Patient Position (BP): Supine) Pulse 80 Temp 98.3 ??F (36.8 ??C) (Oral) Resp 16 Ht 5' 10 (1.778 m) Wt 106.6 kg (235 lb) SpO2 98% BMI 33.72 kg/m?? Temp (24hrs), Av.5 ??F (36.9 ??C), Min:98 ??F (36.7 ??C), Max:99.1 ??F (37.3 ??C) Moderate amount stool (03/23/25 1217) Exam: Gen alert, cooperative, no distress, appears stated age Lungs clear to auscultation bilaterally Heart regular rate and rhythm, no murmur; some chest wall TTP Abdomen soft, non-tender. Bowel sounds normal. Extremities extremities normal, atraumatic, no cyanosis or edema Data: I have reviewed all new labs and studies resulted and pertinent ones are noted above On the day of the visit, I spent 51 minutes providing care to this patient including Preparing to see the patient, Obtaining and/or reviewing separately obtained history, Performing a medically appropriate examination and/or evaluation, Counseling and educating the patient/family/caregiver, Ordering medications, tests or procedures, Documenting clinical information in the medical record, Referring and communication with other health healthcare educator (not separately reported), Independently interpreting results and communicating results to the patient/family/caregiver (not separately reported), Care coordination (not separately reported), and Excluding time spent performing separately billed procedures and/or services. Freda Crowder, DO Please contact me via S3Bubble Secure Chat from 7am-7pm After hours please place E-ticket to [facility] * Marina Negrete APRN - 03/25/2025 4:39 AM CDT [facility] CR[facility] COVER NOTE 03/25/25 4:40 AM Contacted for: pt came in for SSC. he is complaining of stabbing chest pain, he said when he breathes in it does feel right vitals: HR 75 O298 BP 138/98 MAP 111 Vitals: 03/25/25 0420 BP: (!) 138/98 Pulse: 98 Resp: 18 Temp: 99.1 ??F (37.3 ??C) SpO2: 95% Intervention/Follow up/Discussion: Reviewed chart, patient here for sickle cell crisis, h/o acute chest syndrome Pt was just given pain medicine. CXR Marina Negrete APRN Cosigned by Mati Locke MD at 03/25/2025 6:54 AM CDT * Freda Crowder DO - 03/24/2025 11:38 AM CDT [facility] Adult Hospitalist Progress Note Admit Date: 03/18/2025 Date of Note: 03/24/2025, 1:38 PM LOS: 6 days Assessment and Plan: Sickle cell disease H/o acute chest syndrome Asplenic Avascular necrosis s/p hip sx - Continue scheduled percocet 10-325mg 2 tabs TID (USER EXPERIENCE LEAD on 3 tabs TID) + IV dilaudid 2->1.5mg Q3 hours PRN + scheduled IV toradol 10mg Q12h (per pt preference). - Continue IVF - CTA from OSH USER EXPERIENCE LEAD without acute abnl, no PNA - No hypoxia noted - Wean down IV pain meds as able - Follows outpatient with Dr. Gonzalez, hematology at [facility] - Dr. Santiago is following; appreciate her assistance; agree it would be useful to have an acute care plan that can be used consistently when pt comes to [facility] chronic anemia - H/H ~ 7 with elevated retic count which is compensatory; s/p 1u PRBC 03/22 and hgb is now 8s with elevated retic count Complex pain syndrome - see above Multiple hospital stays - Not allowed at several hospitals. Hydrea toxicity - Noted Morphine allergy - Noted Pain seeking behaviors - Noted Mild hypokalemia - K 3.2; received only one of his Kcl doses yesterday; will re- order twice today Nutrition: Current Diet and/or Nutritional Supplementation ordered: DIET GENERAL Effective Now Quality/Safety/Core Measures/Disposition Planning: DVT Prophylaxis - heparin PT POC OT POC Clark catheter:absent Current Code Status -Full Code Plan discussed with patient and nurse, questions answered. Estimated Discharge Day: ~2d Current Planned Disposition - Dispo: home Subjective Previous history of present illness and review of systems have been reviewed today as documented inthe H&P on 03/18/2025; medications, labs, studies, notes, orders and consults have been reviewed. I have reviewed the notes from admission. Today the pt reports that he has some diffuse body pains but feels ready to wean down on his IV dilaudid by the end of today. Objective BP 109/67 (BP Location: Right arm, Patient Position (BP): Lying left side) Pulse 67 Temp 98 ??F(36.7 ??C) (Oral) Resp 18 Ht 5' 10 (1.778 m) Wt 106.6 kg (235 lb) SpO2 96% BMI 33.72 kg/m?? Temp (24hrs), Av.2 ??F (36.8 ??C), Min:98 ??F (36.7 ??C), Max:98.4 ??F (36.9 ??C) Moderate amount stool (03/23/25 1217) Exam: Gen alert, cooperative, no distress, appears stated age Lungs clear to auscultation bilaterally Heart regular rate and rhythm, no murmur Abdomen soft, non-tender. Bowel sounds normal. Extremities extremities normal, atraumatic, no cyanosis or edema Data: I have reviewed all new labs and studies resulted and pertinent ones are noted above On the day of the visit, I spent 45 minutes providing care to this patient including Preparing to see the patient, Obtaining and/or reviewing separately obtained history, Performing a medically appropriate examination and/or evaluation, Counseling and educating the patient/family/caregiver, Ordering medications, tests or procedures, Documenting clinical information in the medical record, Referring and communication with other health healthcare educator (not separately reported), Independently interpreting results and communicating results to the patient/family/caregiver (not separately reported), Care coordination (not separately reported), and Excluding time spent performing separately billed procedures and/or services. Freda Crowder DO Please contact me via S[employer]Bubble Secure Chat from 7am-7pm After hours please place E-ticket to [facility] * Freda Crowder DO - 03/23/2025 11:03 AM CDT [facility] Adult Hospitalist Progress Note Admit Date: 03/18/2025 Date of Note: 03/23/2025, 3:03 PM LOS: 5 days Assessment and Plan: Sickle cell disease H/o acute chest syndrome Asplenic Avascular necrosis s/p hip sx - Continue scheduled percocet 10-325mg 2 tabs TID (USER EXPERIENCE LEAD on 3 tabs TID) + IV dilaudid 2mg Q3 hours PRN + scheduled IV toradol 10mg Q6 hours. - Continue IVF - CTA from OSH USER EXPERIENCE LEAD without acute abnl, no PNA - No hypoxia noted - Wean down IV pain meds as able; still using consistently today but states he thinks he may be able to go down to IV dilaudid 1.5mg tomorrow - Follows outpatient with Dr. Gonzalez, hematology at [facility] - Discussed pt's plan of care with Dr. Santiago, who will plan to see as well to help with pain control Acute on chronic anemia - H/H ~ 7 with elevated retic count which is compensatory; s/p 1u PRBC 03/22 and hgb is now 8.6 with decreasing retic count Complex pain syndrome - see above Multiple hospital stays - Not allowed at several hospitals. Hydrea toxicity - Noted Morphine allergy - Noted Pain seeking behaviors - Noted Mild hypokalemia - K 3.1; he refused po K yesterday but states to me he would prefer po K over IV Kcl today which will order Nutrition: Current Diet and/or Nutritional Supplementation ordered: DIET GENERAL Effective Now Quality/Safety/Core Measures/Disposition Planning: DVT Prophylaxis - heparin PT POC OT POC Clark catheter:absent Current Code Status -Full Code Plan discussed with patient and nurse, questions answered. Estimated Discharge Day: ~2d Current Planned Disposition - Dispo: home Subjective Previous history of present illness and review of systems have been reviewed today as documented inthe H&P on 03/18/2025; medications, labs, studies, notes, orders and consults have been reviewed. I have reviewed the notes from admission. Today the pt reports that he has some diffuse body pains and does not feel ready to wean down on his pain meds. Received 1u PRBC last night. Objective BP 123/75 (BP Location: Right arm, Patient Position (BP): Supine) Pulse 74 Temp 98.3 ??F (36.8 ??C) (Oral) Resp 20 Ht 5' 10 (1.778 m) Wt 106.6 kg (235 lb) SpO2 94% BMI 33.72 kg/m?? Temp (24hrs), Av.1 ??F (36.7 ??C), Min:97.7 ??F (36.5 ??C), Max:98.4 ??F (36.9 ??C) Moderate amount stool (03/23/25 1217) Exam: Gen alert, cooperative, no distress, appears stated age Lungs clear to auscultation bilaterally Heart regular rate and rhythm, no murmur Abdomen soft, non-tender. Bowel sounds normal. Extremities extremities normal, atraumatic, no cyanosis or edema Data: I have reviewed all new labs and studies resulted and pertinent ones are noted above On the day of the visit, I spent 43 minutes providing care to this patient including Preparing to see the patient, Obtaining and/or reviewing separately obtained history, Performing a medically appropriate examination and/or evaluation, Counseling and educating the patient/family/caregiver, Ordering medications, tests or procedures, Documenting clinical information in the medical record, Referring and communication with other health healthcare educator (not separately reported), Independently interpreting results and communicating results to the patient/family/caregiver (not separately reported), Care coordination (not separately reported), and Excluding time spent performing separately billed procedures and/or services. Freda Crowder DO Please contact me via S3Bubble Secure Chat from 7am-7pm After hours please place E-ticket to [facility] * Freda Crowder DO - 03/22/2025 11:10 AM CDT [facility] Adult Hospitalist Progress Note Admit Date: 03/18/2025 Date of Note: 03/22/2025, 3:10 PM LOS: 4 days Assessment and Plan: Sickle cell disease H/o acute chest syndrome Asplenic Avascular necrosis s/p hip sx - Continue scheduled percocet 10-325mg 2 tabs TID (USER EXPERIENCE LEAD on 3 tabs TID) + IV dilaudid 2mg Q3 hours PRN + scheduled IV toradol 10mg Q6 hours. - Continue IVF - CTA from OSH USER EXPERIENCE LEAD without acute abnl, no PNA - No hypoxia noted - Wean down IV pain meds as able; still using consistently today but states he thinks he may be able to go down to IV dilaudid 1.5mg tomorrow - Follows outpatient with Dr. Gonzalez, hematology at [facility] Acute on chronic anemia - H/H ~ 7 with elevated retic count which is compensatory; will transfuse 1u PRBC given borderline hgb; monitor daily Complex pain syndrome - see above Multiple hospital stays - Not allowed at several hospitals. Hydrea toxicity - Noted Morphine allergy - Noted Pain seeking behaviors - Noted Mild hypokalemia - K 3.4 and will give po Kcl if pt is amenable (per notes in the past he has refused) Nutrition: Current Diet and/or Nutritional Supplementation ordered: DIET GENERAL Effective Now Quality/Safety/Core Measures/Disposition Planning: DVT Prophylaxis - heparin PT POC OT POC Clark catheter:absent Current Code Status -Full Code Plan discussed with patient and nurse, questions answered. Estimated Discharge Day: 03/24/2025 Current Planned Disposition - Dispo: home Subjective Previous history of present illness and review of systems have been reviewed today as documented inthe H&P on 03/18/2025; medications, labs, studies, notes, orders and consults have been reviewed. I have reviewed the notes from admission. Today the pt reports that he has some pain at his back, legs/feet, hands. Objective BP 107/64 (BP Location: Right arm, Patient Position (BP): Lying right side) Pulse 74 Temp 98.5 ??F (36.9 ??C) (Oral) Resp 14 Ht 5' 10 (1.778 m) Wt 106.6 kg (235 lb) SpO2 98% BMI 33.72 kg/m?? Temp (24hrs), Av.7 ??F (37.1 ??C), Min:98.5 ??F (36.9 ??C), Max:99 ??F (37.2 ??C) Exam: Gen alert, cooperative, no distress, appears stated age Lungs clear to auscultation bilaterally Heart regular rate and rhythm, no murmur Abdomen soft, non-tender. Bowel sounds normal. Extremities extremities normal, atraumatic, no cyanosis or edema Data: I have reviewed all new labs and studies resulted and pertinent ones are noted above On the day of the visit, I spent 51 minutes providing care to this patient including Preparing to see the patient, Obtaining and/or reviewing separately obtained history, Performing a medically appropriate examination and/or evaluation, Counseling and educating the patient/family/caregiver, Ordering medications, tests or procedures, Documenting clinical information in the medical record, Referring and communication with other health healthcare educator (not separately reported), Independently interpreting results and communicating results to the patient/family/caregiver (not separately reported), Care coordination (not separately reported), and Excluding time spent performing separately billed procedures and/or services. Freda Crowder DO Please contact me via S[employer] Secure Chat from 7am-7pm After hours please place [facility] * Guadalupe Yates MD - 03/21/2025 12:15 PM CDT [facility] Adult Hospitalist Progress Note Admit Date: 03/18/2025 Date of Note: 03/21/2025, 12:15 PM LOS: 3 days Assessment and Plan: Sickle cell disease H/o acute chest syndrome Asplenic Avascular necrosis s/p hip sx - Continue USER EXPERIENCE LEAD meds scheduled percocet 10-325mg 3 tabs TID + IV dilaudid 2mg Q3 hours PRN + scheduled IV toradol 10mg Q6 hours. - Continue IVF - CTA yesterday without acute abnl, no PNA - No hypoxia noted - Patient has had consistent IV and pain meds regularly - he reports he is doing much better and expects that he will likely wean dilaudid down to 1.5mg tomorrow. - Awaiting CBC/CMP from today - check labs Q48 hours - patient is a hard stick. He does not have a port. Acute on chronic anemia - H/H ~ 7 03/19 with elevated retic count, monitor daily Complex pain syndrome - see above Multiple hospital stays - Not allowed at several hospitals. Hydrea toxicity - Noted Morphine allergy - Noted Pain seeking behaviors - Noted Nutrition: Current Diet and/or Nutritional Supplementation ordered: DIET GENERAL Effective Now Quality/Safety/Core Measures/Disposition Planning: DVT Prophylaxis - heparin PT POC OT POC Clark catheter:absent Current Code Status -Full Code Plan discussed with patient, questions answered. Estimated Discharge Day: 03/22/2025 Current Planned Disposition - Dispo: home pending pain control. Subjective Previous history of present illness and review of systems have been reviewed today as documented inthe H&P on 03/18/2025; medications, labs, studies, notes, orders and consults have been reviewed. I have reviewed the notes from admission. Overnight patient is back on track for pain control. He is feeling better he tells me. Objective BP 103/56 (BP Location: Left arm, Patient Position (BP): Lying right side) Pulse 93 Temp 97.8 ??F (36.6 ??C) (Oral) Resp 16 SpO2 96% Temp (24hrs), Av ??F (36.7 ??C), Min:97.7 ??F (36.5 ??C), Max:98.6 ??F (37 ??C) Exam: Gen alert, cooperative, no distress, appears stated age, he is disheveled, poor hygiene Lungs clear to auscultation bilaterally Heart regular rate and rhythm, S1, S2 normal, no murmur, click, rub or gallop Abdomen soft, non-tender. Bowel sounds normal. No masses, No organomegaly Extremities extremities normal, atraumatic, no cyanosis or edema Neuro nonfocal Data: I have reviewed all new labs and studies resulted and pertinent ones are noted above Guadalupe Yates MD Please contact me via S[employer] Secure Chat from 7am-7pm After hours please place [facility] * Guadalupe Yates MD - 03/20/2025 2:45 PM CDT [facility] Adult Hospitalist Progress Note Admit Date: 03/18/2025 Date of Note: 03/20/2025, 2:45 PM LOS: 2 days Assessment and Plan: Sickle cell disease H/o acute chest syndrome Asplenic Avascular necrosis s/p hip sx - Continue USER EXPERIENCE LEAD meds scheduled percocet 10-325mg 3 tabs TID + IV dilaudid 2mg Q3 hours PRN + scheduled IV toradol 10mg Q6 hours. - IVF - CTA yesterday without acute abnl, no PNA - No hypoxia noted Acute on chronic anemia - H/H ~ 7 yesterday with elevated retic count, monitor daily Complex pain syndrome - see above Multiple hospital stays - Not allowed at several hospitals. Hydrea toxicity - Noted Morphine allergy - Noted Pain seeking behaviors - Noted Nutrition: Current Diet and/or Nutritional Supplementation ordered: DIET GENERAL Effective Now Quality/Safety/Core Measures/Disposition Planning: DVT Prophylaxis - heparin PT POC OT POC Clark catheter:absent Current Code Status -Full Code Plan discussed with patient, questions answered. Estimated Discharge Day: 03/21/2025 Current Planned Disposition - Dispo: home pending pain control. Subjective Previous history of present illness and review of systems have been reviewed today as documented inthe H&P on 03/18/2025; medications, labs, studies, notes, orders and consults have been reviewed. I have reviewed the notes from admission. Overnight patient upset about losing IV yesterday Objective BP 102/58 (BP Location: Left arm, Patient Position (BP): Supine) Comment: initial reading was 99/62 Pulse 70 Temp 97.9 ??F (36.6 ??C) (Oral) Resp 20 SpO2 95% Temp (24hrs), Av.2 ??F (36.8 ??C), Min:97.9 ??F (36.6 ??C), Max:98.5 ??F (36.9 ??C) Exam: Gen alert, cooperative, no distress, appears stated age Lungs clear to auscultation bilaterally Heart regular rate and rhythm, S1, S2 normal, no murmur, click, rub or gallop Abdomen soft, non-tender. Bowel sounds normal. No masses, No organomegaly Extremities extremities normal, atraumatic, no cyanosis or edema Neuro nonfocal Data: I have reviewed all new labs and studies resulted and pertinent ones are noted above Guadalupe Yates MD Please contact me via S3Bubble Secure Chat from 7am-7pm After hours please place [facility] * Enoc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 administered multiple times for severe pain, with pain remaining high throughout the shift. Heparin was refused during the shift. Safety checks and high fall risk interventions were completed, with no reported falls or injuries. Mobility and independence in activities of daily living were maintained, with mild muscle weakness but no change in ambulation status. Overall, comfort needs required frequent intervention, and musculoskeletal and skin status remainedstable. Pt A&ox4. Pt complained of pain, received PRN pain meds. decreased dilaudid dose today. Pt tolerating diet. Pt independent in room. Pt resting in bed, call light in reach. Verbalizes/displays acceptable comfort level or baseline comfort level: Pain remained severe throughout the shift, with ratings fluctuating between 9 and 10 despite multiple administrations of HYDROmorphone; pain location shifted from abdomen to back and leg, and interventions included medication and repositioning. Infection Risk/Actual: Infection prevention, control, or resolution by discharge: No fever was present and skin assessments remained within defined limits, with no changes in wound characteristics ornew findings. Safety/Fall: Absence of fall, injury, harm during hospitalization: High fall risk interventions were completed and safety checks were performed throughout the shift, with no reported falls or injuries. Achieve optimal musculoskeletal function by discharge or maintain baseline function: Mobility and independence in activities of daily living were maintained, with mild generalized muscle weakness noted but no change in ambulation status. Maintain skin integrity and/or promote wound healing by discharge: Skin integrity was stable with ascar noted and no new breakdowns; skin remained within defined limits and repositioning was encouraged. MENT REVIEW SPECIALIST * Care Plan - Kimber Tamayo RN - 03/28/2025 6:38 AM CST Shift Summary Multiple PRN HYDROmorphone doses were administered for severe pain, with pain management interventions utilized. Pain remained high throughout the shift despite interventions. Musculoskeletal function and mobility were maintained at baseline, with independent ambulation and mild weakness noted. Skin integrity was preserved, and Ivan score reflected low risk for breakdown. Overall, comfort level was achieved, but other baseline functions were maintained. Verbalizes/displays acceptable comfort level or baseline comfort level: Pain was severe at the start of the shift, with multiple PRN HYDROmorphone doses administered and pain management interventionsutilized; pain relief factors included medications, but pain ratings remained high throughout the shift. Achieve optimal musculoskeletal function by discharge or maintain baseline function: Musculoskeletal status remained mildly weak but independent, with no change in activity level or assistive device use, and positioning was consistently on the left side. Maintain skin integrity and/or promote wound healing by discharge: Skin was documented as within defined limits and Ivan score indicated low risk for breakdown, with no apparent problems related tomoisture, friction, or shear. Achieve optimal nutrition and fluid status to meet metabolic needs throughout hospitalization: Nutrition was assessed as adequate and urine remained clear, supporting maintenance of metabolic needs. Achieve optimal respiratory function by discharge and/or maintain baseline function: Respiratory status remained stable with consistent SpO2 on room air and no changes in respiratory rate or device use. MENT REVIEW SPECIALIST * Care Plan - Berenice Man RN - 03/27/2025 6:35 PM CST Patient noncompliant to protocol for pain medication administration. This RN attempted to explain the protocol of administering scheduled PO medications before PRN IV medications to pt. Pt refused tolisten to this RN requesting my charge nurse. warp placer explained same to pt without understanding from pt. This RN messaged DO about situation and DO stated it was okay to give dilaudid before the PO percocet. Later this shift, patient refused scheduled IV toradol. This RN attempted to explain same situation as before, but pt requested this RN leave the room. Pt told tech that he would crash out if this RN entered the room again. Shift Summary Pain remained severe and unchanged despite administration of HYDROmorphone and cyclobenzaprine, with multiple pain medications refused. No falls or injuries occurred, and safety checks were completed. Laboratory results showed low hemoglobin and hematocrit, high reticulocyte count, and abnormal red cell morphology. Patient remained independent in mobility and activities, with no assistive devices required. Overall, patient maintained independence and safety during the shift. Infection Risk/Actual: Infection prevention, control, or resolution by discharge: Laboratory results showed low hemoglobin and hematocrit, high reticulocyte count, and abnormal red cell morphology, but no new symptoms or changes in temperature or WBC were documented during the shift. Safety/Fall: Absence of fall, injury, harm during hospitalization: No falls or injuries occurred; safety checks were completed and patient remained independent with ambulation and no apparent mobility or friction/shear problems. MENT REVIEW SPECIALIST MENT REVIEW SPECIALIST * Care Plan - Zunilda Rodriguez LPN - 03/26/2025 5:56 PM CDT Shift Summary HYDROmorphone was administered PRN for severe pain at three intervals, with pain remaining at baseline and content/relaxed after each dose. Vital signs and oxygenation remained stable throughout the shift, with no escalation in respiratorysupport. Cardiac function was assessed with echocardiogram, which described normal anatomy and function. Hygiene care was provided with [facility] in the morning. Overall, comfort and cardiopulmonary status were maintained during the shift. Verbalizes/displays acceptable comfort level or baseline comfort level: Pain scores remained at baseline and content/relaxed throughout the shift, with HYDROmorphone administered PRN for severe pain at three intervals and no reported increase in discomfort. Achieve optimal respiratory function by discharge and/or maintain baseline function: Respiratory rate and SpO2 remained stable on room air, with no changes in oxygen therapy required during the shift. Achieve optimal cardiovascular function by discharge or maintain baseline function: Blood pressure,pulse, and mean arterial pressure remained within expected ranges, and echocardiogram findings described normal cardiac anatomy and function. * Care Plan - Kimber Tamayo RN - 03/26/2025 6:46 AM CDT Shift Summary Severe pain persisted throughout the shift, requiring multiple administrations of HYDROmorphone andone dose of oxyCODONE-acetaminophen, with some pain medications refused. No falls or injuries occurred, and all safety protocols were followed. Mild muscle weakness and slightly limited mobility were present, but independence and mobility weresupported with appropriate interventions. Respiratory and cardiovascular status remained within defined limits, with improvement in oxygen saturation and stable vital signs. Overall, the shift was marked by ongoing pain management needs and stable safety, musculoskeletal, respiratory, and cardiovascular status. Verbalizes/displays acceptable comfort level or baseline comfort level: Pain remained severe throughout the shift, with multiple administrations of HYDROmorphone and one dose of oxyCODONE-acetaminophen given, but pain persisted at a high level; single medication modality was used for pain management and medications were reported as a factor that relieves pain. Safety/Fall: Absence of fall, injury, harm during hospitalization: No falls or injuries documented during the shift; safety checks were completed and no additional high fall risk interventions were needed. Achieve optimal musculoskeletal function by discharge or maintain baseline function: Mild generalized muscle weakness and slightly limited mobility were noted, but independence in ADLs was promoted and mobility interventions were implemented; patient was able to turn independently and had no weight-bearing restrictions. Achieve optimal respiratory function by discharge and/or maintain baseline function: Respiratory status remained within defined limits, with SpO2 improving from 94% to 100% on room air and no additional respiratory interventions required. Achieve optimal cardiovascular function by discharge or maintain baseline function: Blood pressure and mean arterial pressure trended upward but remained within an acceptable range, and cardiac assessments were within defined limits with no additional concerns documented. * Care Plan - Nina Dsouza RN - 03/25/2025 7:54 AM CDT Shift Summary Pain remained severe and required multiple administrations of HYDROmorphone, with non-pharmacologicinterventions also utilized. Blood pressure and mean arterial pressure were elevated at one point, and the RN was notified. Patient refused heparin and sequential compression device, and independently performed hygiene carewith CHG shower. Mobility and ambulation were maintained at baseline, with no assistive devices needed. Overall, patient remained alert and responsive, with no falls, injuries, or delirium documented during the shift. Infection Risk/Actual: Infection prevention, control, or resolution by discharge: No fever was present and hygiene care was performed independently with CHG shower supplies provided; patient refused heparin twice and sequential compression device throughout the shift. Safety/Fall: Absence of fall, injury, harm during hospitalization: Safety checks were completed at all scheduled times, and fall risk was reviewed and agreed upon; no falls or injuries were documented. * Care Plan - Deepa Petit LPN - 03/24/2025 6:48 PM CDT Shift Summary Severe pain persisted throughout the shift, requiring multiple administrations of HYDROmorphone andketorolac, with only brief periods of relief. Sodium chloride infusion was decreased to 75 ml/hr. Potassium chloride was administered in the afternoon following identification of low potassium levels on lab results. Heparin was refused during the shift. Overall, musculoskeletal and respiratory function remained stable, and no new infection-related concerns were documented. * Care Plan - Vivi Veloz RN - 03/23/2025 9:10 PM CDT Shift Summary Multiple pain management interventions were attempted, including HYDROmorphone and ketorolac, but pain ratings remained unchanged at 10 throughout the shift. Non-pharmacological interventions such as positioning and relaxation were also utilized without improvement in comfort level. Patient refused heparin twice and potassium chloride once during the shift. Vitals remained stable with slight improvement in SpO2 and no significant changes in temperature orrespiratory rate. Overall, pain control was not achieved and comfort level did not improve during the shift. Unable to complete full assessment as patient stated he didn't want to be touched. Documented in flowsheets. Verbalizes/displays acceptable comfort level or baseline comfort level: Pain remained at a high level throughout the shift despite multiple medication modalities and non-pharmacological interventions, with no reported improvement after interventions. * Care Plan - Varsha Bustillos MSW - 03/23/2025 11:59 AM CDT SW met with pt at bedside. Pt expressed frustration that during initial assessment when he admittedCM asked if he was unhoused. SW apologized and provided empathetic listening. Pt states he lives at([address] [place] [address]). Pt did not want to answer any further CM assessment questions at this time. Pt did not have any further questions or concerns for SW. SW will continue to follow and assist. AMANDA Seals [id number] Problem: Discharge Planning Goal: Identify discharge needs upon admission and through discharge Description: Outcome: Progressing * Care Plan - Norberto Higgins RN - 03/23/2025 7:40 AM CDT Shift Summary Pain management interventions included multiple administrations of HYDROmorphone and ketorolac, with one refusal of ketorolac and continued high pain ratings. Safety measures were maintained with regular safety checks and appropriate armband use for identification, allergy, and fall risk. Nutrition status was monitored, with oral intake remaining inadequate but feeding tolerance described as fair. No falls, injuries, or harm occurred during the shift. Overall, patient remained under close observation with ongoing pain and nutrition concerns. Verbalizes/displays acceptable comfort level or baseline comfort level: Pain ratings remained high throughout the shift despite administration of ketorolac and HYDROmorphone, with brief periods of relaxation noted after interventions; patient refused ketorolac once and continued to report generalized pain. Safety/Fall: Absence of fall, injury, harm during hospitalization: No falls or injuries occurred during the shift, safety checks were consistently completed, and fall risk armbands remained in place. Achieve optimal nutrition and fluid status to meet metabolic needs throughout hospitalization: Oralintake was noted as inadequate, but feeding tolerance remained fair and no additional nutrition assessments were required. * Care Plan - Nina Dsouza RN - 03/23/2025 4:00 AM CDT Received 1 unit PRBC from the blood bank at 2325, vitals obtained. Attempted to scan all bar codes on 2 phones and 2 COWs. When scanning the unit number on all devices, error popped up stating unit does not match blood bank information for this transfusion. Blood bank called and stated to manually enter unit number, tried multiple times, did not work. blood bank called again and verified all inf ormation is correct. Blood bank stated to override and give unit. Messaged Tsering Anderson PA-C to verify that it was okay to start unit without scanning. Okay by BRADLEY verified with hide mill worker Norberto Mancini RN, and Yeni RN.Blood started at 0030 and finished infusing at 0325, vital signs obtained and no signs of transfusion reaction. Unit number [id number] Component [id number] EXP 04/14/2025 * Care Plan - Miguel Oneil GN - 03/22/2025 7:52 PM CDT Shift Summary Pain remained severe and unchanged despite three administrations of HYDROmorphone during the shift. Oral intake was poor, with no lunch consumed and ongoing decreased appetite despite nutrition interventions. No falls or injuries occurred, and safety checks were completed. Heparin and potassium chloride were refused during the shift. Overall, comfort and nutrition goals were not met, but safety was maintained. Verbalizes/displays acceptable comfort level or baseline comfort level: Pain remained severe and unchanged throughout the shift despite multiple administrations of HYDROmorphone; patient consistentlyreported no improvement in pain after interventions. Infection Risk/Actual: Infection prevention, control, or resolution by discharge: No new symptoms or changes in temperature, WBC count, or other infection-related parameters were noted during the shift. Safety/Fall: Absence of fall, injury, harm during hospitalization: No falls or injuries occurred; safety checks were completed and fall risk precautions maintained. Achieve optimal nutrition and fluid status to meet metabolic needs throughout hospitalization: Oralintake remained inadequate with decreased appetite and poor meal consumption; nutrition interventions were provided but intake declined to 0% at lunch. * Care Plan - Papa Myrick RN - 03/22/2025 7:48 AM CDT Shift Summary Pain remained severe and constant, requiring multiple administrations of HYDROmorphone and resulting in intermittent verbalized relief. Ketorolac was administered early in the shift, but later refused, and heparin was refused throughout the shift. Safety checks were completed and no falls or injuries occurred. Mobility and independence in ambulation were maintained, with mild generalized muscle weakness noted. Overall, pain control remained a challenge and musculoskeletal function was maintained at baseline. Infection Risk/Actual: Infection prevention, control, or resolution by discharge: No new findings related to infection risk or symptoms were documented during the shift. Safety/Fall: Absence of fall, injury, harm during hospitalization: Safety checks were completed regularly and no falls or injuries were documented; fall risk status remained unchanged. * Care Plan - Miguel Oneil GN - 03/21/2025 6:26 PM CDT Shift Summary Pain remained severe and required multiple administrations of HYDROmorphone, with no improvement inpain scores. CHG was applied around IV sites. IV sites remained patent and WDL, with sodium chloride 0.9% infusing continuously (rate 100). IV consulted per patient request. Pt stated that his right arm was burning. New IV is placed in left lower posterior arm (20 G). Safety checks and fall risk reviews were completed, and patient stayed alert and oriented throughout the shift. Patient was independent in mobility and ADLs, and no family or caregiver contact occurred during the shift. Skin integrity was maintained except for a stable chest scar/keloid Overall, patient remained alert, independent, and free from injury during the shift. Infection Risk/Actual: Infection prevention, control, or resolution by discharge: CHG bath was performed around the IV site and IV lines remained WDL and patent; no changes in skin integrity or IV site condition were noted, and sodium chloride 0.9% was administered intermittently. Safety/Fall: Absence of fall, injury, harm during hospitalization: Safety checks were completed at the beginning and end of the shift, and fall risk was reviewed with agreement documented; patient remained alert and oriented throughout the shift. * Care Plan - Kimber Tamayo RN - 03/21/2025 6:55 AM CDT Shift Summary Pain persisted at a high level throughout the shift despite multiple administrations of HYDROmorphone and ketorolac. No fever or new skin or IV concerns were documented, and infection-related assessments remained within defined limits. Safety checks were consistently performed and no falls or injuries were reported during the shift. Mild muscle weakness continued, but independence in mobility and activity was maintained without assistive devices. Overall, the shift was notable for persistent pain and stable status in other monitored areas. Infection Risk/Actual: Infection prevention, control, or resolution by discharge: No fever was present and skin, peripheral IV, and neurovascular assessments remained within defined limits during theshift. Safety/Fall: Absence of fall, injury, harm during hospitalization: Safety checks were completed at all documented intervals and fall risk was acknowledged each shift with no reported incidents. * Care Plan - Michelle Corbett RN - 03/20/2025 7:04 PM CDT Shift Summary HYDROmorphone was administered multiple times for persistent chest pain, but pain ratings remained high. Sodium chloride 0.9 % was administered and stopped twice during the shift. Ondansetron was given PRN for nausea/emesis in the afternoon. Heparin was offered but refused. Overall, pain management was challenging and comfort levels did not improve during the shift. Verbalizes/displays acceptable comfort level or baseline comfort level: Pain in the chest region persisted throughout the shift with ratings remaining high (9- 10), despite multiple administrations ofHYDROmorphone; no significant improvement in comfort was noted. * Care Plan - Papa Myrick RN - 03/20/2025 6:56 AM CDT Shift Summary HYDROmorphone was administered three times for persistent severe pain, but pain scores did not decrease. Heparin and ketorolac were refused during the shift, and sodium chloride 0.9% was both stopped and later administered. Hygiene care was completed independently, including a CHG shower, and mobility remained independentdespite mild muscle weakness. Safety checks were performed and no falls or injuries were documented. Remained independent in mobility and ADLs, with ongoing pain and mild generalized muscle weakness noted. Infection Risk/Actual: Infection prevention, control, or resolution by discharge: No fever was present and hygiene care was completed independently, including a CHG shower; sodium chloride 0.9% was administered and heparin was refused, with no documentation of infection-related concerns during the shift. Safety/Fall: Absence of fall, injury, harm during hospitalization: Safety checks were completed throughout the shift, fall risk was reviewed and agreed with, and no falls or injuries were documented. * Care Plan - Enoc Hernandez RN - 03/20/2025 6:36 AM CDT Shift Summary HYDROmorphone was administered three times for persistent severe pain, but pain scores did not decrease. Heparin and ketorolac were refused during the shift, and sodium chloride 0.9% was both stopped and later administered. Hygiene care was completed independently, including a CHG shower, and mobility remained independentdespite mild muscle weakness. Safety checks were performed and no falls or injuries were documented. Remained independent in mobility and ADLs, with ongoing pain and mild generalized muscle weakness noted. Infection Risk/Actual: Infection prevention, control, or resolution by discharge: No fever was present and hygiene care was completed independently, including a CHG shower; sodium chloride 0.9% was administered and heparin was refused, with no documentation of infection-related concerns during the shift. Safety/Fall: Absence of fall, injury, harm during hospitalization: Safety checks were completed throughout the shift, fall risk was reviewed and agreed with, and no falls or injuries were documented. * Care Plan - Rodrigo Partida RN - 03/20/2025 4:09 AM CDT Shift Summary A&O X4. Refuse to take scheduled oral pain meds and just wants IV dilaudid. Charge nurse, housesup and hospitalist notified. HYDROmorphone was administered twice for severe pain, with pain rating remaining at 10 after each dose. Ketorolac was refused twice during the shift, and heparin was also refused. Sodium chloride 0.9% infusion was stopped as ordered. Safety checks were completed and patient ambulated independently without incident. Patient continued to report pain/discomfort and remained in bed for most of the shift. Verbalizes/displays acceptable comfort level or baseline comfort level: Pain rating remained at 10 throughout the shift despite administration of HYDROmorphone twice; patient continued to report pain/discomfort and refused ketorolac, with intermittent periods of content/relaxed response after interv entions. Infection Risk/Actual: Infection prevention, control, or resolution by discharge: No temperature elevation or other abnormal vital signs were documented during the shift, and hygiene care was performed. Safety/Fall: Absence of fall, injury, harm during hospitalization: Safety checks were completed regularly, and patient remained in bed and ambulated independently without assistive devices or reported incidents. * Care Plan - Eugenia Kemp RN - 03/19/2025 5:27 PM CDT Shift Summary Multiple PRN pain medications were administered throughout the shift, but pain scores remained at 10 and patient continued to report severe discomfort and request additional pain relief. Pain was described as constant, stabbing, and tight, with generalized location reported later in the shift. Patient reported that pain medications were ineffective and requested more IV dilaudid. Pain was present at all assessment times, with no improvement noted after interventions. Overall, pain management remained a significant challenge during the shift, with persistent high pain scores and ongoing requests for additional relief. Verbalizes/displays acceptable comfort level or baseline comfort level: Pain remained severe and constant throughout the shift, with multiple PRN pain medications administered and no reported relief;pain scores consistently at 10 both at rest and with activity, and patient continued to request additional pain management interventions. * Care Plan - Deana Thayer RN - 03/19/2025 2:53 PM CDT Care Management Initial Assessment Initial Discharge Planning Assessment completed. Discussed Care Management's role and Discharge planning. Does the patient have family and/or a caregiver that is willing, able and available to assist if needed? No - Reason: Patient states nothing has changed since his previous assessment. This RN went byprevious assessment. Patient Discharge Planning Goal: Homeless Patient will potentially discharge to a SNF/NH? No Care Management visited with: patient via in person.states his assessment has not changed. Prior to admission, patient resides at: Homeless. Prior to admission, living arrangements: Home less. Prior to admission, patient's functional level:independent; uses unknown for mobility; needs assistance with iADLs: N/A Community Ambulator: unknown Prior to admission, the patient has the following DME? unknown Services in the home/community: unknown Receives hemodialysis? No Emergency contact(s): Extended Emergency Contact Information Primary Emergency Contact: Albertina Vick Mobile Relation: Sister Preferred language: [place] Assistant Plant Controller needed? No Prescription coverage: unknown Preferred Pharmacy verified: [facility] [id number] IN [place], [place] - [address] Insurance coverage verified: Payor: [facility] MEDICAID / Plan: [facility] [employer] [facility] MEDICAID / Product Type: HMO / Secondary Insurance:N/A Medicaid Status: unknown Has VA Benefits: no Employment Status: not employed PCP verified as: States I have a Hemotologist would not give name Patient has had a stay at an acute care hospital in the last 30 days. Recent Falls?: Last Known Fall: No falls Plan for transportation at discharge: Homeless Care Management contact information provided. Care Management will continue to follow and assist asneeded. Deana Thayer RN BSN Oncology/Tele Med/ [address] * Care Plan - Rodrigo Partida RN - 03/19/2025 6:05 AM CDT Shift Summary Multiple PRN pain medications (oxyCODONE and HYDROmorphone) were administered throughout the shift,with eventual improvement. Pain management required frequent reassessment and interventions, with initial high pain scores decreasing after medication. Safety checks were consistently performed, and mobility remained independent with no falls or injuries reported. Discharge planning included assessment of needs, with no barriers identified and interest in medication bedside delivery; overall, remained stable with improved comfort by end of shift. Infection Risk/Actual: Infection prevention, control, or resolution by discharge: No fever or abnormal temperature trends were observed, and perineal hygiene was performed during the shift; no redness was noted on skin check. Safety/Fall: Absence of fall, injury, harm during hospitalization: Remained independent with mobility and ambulation, safety checks were completed throughout the shift, and no falls or injuries were documented. documented in this encounter Plan of Treatment Not on file documented as of this encounter Procedures Procedure Name Priority Date/Time Associated Diagnosis Comments DIFFERENTIAL, MANUAL Routine 03/29/2025 9:19 PM DOCUMENT REVIEW SPECIALIST CBC WITH DIFFERENTIAL Routine 03/29/2025 9:19 PM DOCUMENT REVIEW SPECIALIST RETICULOCYTES Routine 03/29/2025 9:19 PM DOCUMENT REVIEW SPECIALIST BASIC METABOLIC PANEL Routine 03/29/2025 9:19 PM DOCUMENT REVIEW SPECIALIST DIFFERENTIAL, MANUAL Stat 03/27/2025 3:34 PM DOCUMENT REVIEW SPECIALIST CBC WITH DIFFERENTIAL Stat 03/27/2025 3:34 PM DOCUMENT REVIEW SPECIALIST RETICULOCYTES Stat 03/27/2025 3:34 PM DOCUMENT REVIEW SPECIALIST ECHO COMPLETE Routine 03/26/2025 12:20 PM CDT RETICULOCYTES Routine 03/26/2025 11:43 AM CDT CBC WITHOUT DIFFERENTIAL Routine 03/26/2025 11:43 AM CDT BASIC METABOLIC PANEL Routine 03/26/2025 11:43 AM CDT RETICULOCYTES Stat 03/25/2025 1:31 PM CDT CBC WITHOUT DIFFERENTIAL Stat 03/25/2025 1:31 PM CDT TROPONIN Routine 03/25/2025 1:31 PM CDT BASIC METABOLIC PANEL Stat 03/25/2025 1:31 PM CDT EKG 12-LEAD Stat 03/25/2025 10:46 AM CDT XR CHEST PA OR AP 1 VW Stat 6:34 AM CDT DIFFERENTIAL, MANUAL Routine 03/24/2025 12:08 PM CDT CBC WITH DIFFERENTIAL Routine 03/24/2025 12:08 PM CDT RETICULOCYTES Routine 03/24/2025 12:08 PM CDT TSH Routine 03/24/2025 12:08 PM CDT BASIC METABOLIC PANEL Routine 03/24/2025 12:08 PM CDT DIFFERENTIAL, MANUAL Routine 03/23/2025 5:23 AM CDT CBC WITH DIFFERENTIAL Routine 03/23/2025 5:23 AM CDT RETICULOCYTES Routine 03/23/2025 5:23 AM CDT COMPREHENSIVE METABOLIC PANEL Routine 03/23/2025 5:23 AM CDT TYPE AND SCREEN Routine 03/22/2025 8:24 PM CDT PREPARE RED BLOOD CELLS Routine 03/22/2025 4:15 PM CDT DIFFERENTIAL, MANUAL Routine 03/22/2025 12:37 PM CDT CBC WITH DIFFERENTIAL Routine 03/22/2025 12:37 PM CDT RETICULOCYTES Routine 03/22/2025 12:37 PM CDT COMPREHENSIVE METABOLIC PANEL Routine 03/22/2025 12:37 PM CDT DIFFERENTIAL, MANUAL Routine 03/21/2025 12:40 PM CDT CBC WITH DIFFERENTIAL Routine 03/21/2025 12:40 PM CDT COMPREHENSIVE METABOLIC PANEL Routine 03/21/2025 12:40 PM CDT DIFFERENTIAL, MANUAL Routine 03/19/2025 3:01 PM CDT CBC WITH DIFFERENTIAL Routine 03/19/2025 3:01 PM CDT RETICULOCYTES Routine 03/19/2025 3:01 PM CDT BASIC METABOLIC PANEL Routine 03/19/2025 9:30 AM CDT documented in this encounter Results * MANUAL DIFFERENTIAL (03/29/2025 9:19 PM DOCUMENT REVIEW SPECIALIST) PLATELET EST. Consistent w Count 03/29/2025 10:23 PM DOCUMENT REVIEW SPECIALIST [facility] ANISOCYTOSIS 2+ /hpf 03/29/2025 10:23 PM DOCUMENT REVIEW SPECIALIST [facility] POIKILOCYTES 2+ /hpf 03/29/2025 10:23 PM DOCUMENT REVIEW SPECIALIST [facility] MACROCYTES 2+ /hpf 03/29/2025 10:23 PM DOCUMENT REVIEW SPECIALIST [facility] TARGET CELLS 1+ /hpf 03/29/2025 10:23 PM DOCUMENT REVIEW SPECIALIST [facility] OVALOCYTES 1+ /hpf 03/29/2025 10:23 PM DOCUMENT REVIEW SPECIALIST [facility] SICKLE CELLS 1+ /hpf 03/29/2025 10:23 PM DOCUMENT REVIEW SPECIALIST [facility] PAPPENHEIMER BODIES Present 03/29/2025 10:23 PM DOCUMENT REVIEW SPECIALIST [facility] Blood Venipuncture / Unknown 03/29/2025 9:19 PM DOCUMENT REVIEW SPECIALIST 03/29/2025 9:22 PM DOCUMENT REVIEW SPECIALIST us Freda Crowder DO HEMATOLOGY ORDERABLES COM Final Result [facility] [place] [employer] [facility]# [id number] [address] [address] * (ABNORMAL) RETICULOCYTES (03/29/2025 9:19 PM DOCUMENT REVIEW SPECIALIST) Pathologist [facility] [place] RETICULOCYTES 5.9(H) 0.7 - 2.9 % 03/29/2025 9:35 PM DOCUMENT REVIEW SPECIALIST [facility] IMMATURE RETIC FRACTION 21.7(H) 3.0 - 18.0 % 03/29/2025 9:35 PM DOCUMENT REVIEW SPECIALIST [facility] RETICULOCYTE, ABSOLUTE 0.1600 10e6/uL 03/29/2025 9:35 PM DOCUMENT REVIEW SPECIALIST [facility] Blood Venipuncture / Unknown 03/29/2025 9:19 PM DOCUMENT REVIEW SPECIALIST 03/29/2025 9:22 PM DOCUMENT REVIEW SPECIALIST Freda Crowder DO HEMATOLOGY ORDERABLES Final Resu lt [facility] [place] [employer] [facility]# [id number] [address] [place] [address] * (ABNORMAL) BASIC METABOLIC PANEL (03/29/2025 9:19 PM DOCUMENT REVIEW SPECIALIST) SODIUM 139 136 - 145 mmol/L 03/29/2025 10:03 PM [facility] POTASSIUM 3.6 3.5 - 5.0 mmol/L 03/29/2025 10:03 PM [facility] [place] [employer] [facility] CHLORIDE 106 98 - 107 mmol/L 03/29/2025 10:03 PM [facility] [place] [employer] [facility] CO2 23 22 - 29 mmol/L 03/29/2025 10:03 PM [facility] [place] [employer] [facility] CALCIUM 8.3(L) 8.6 - 10.2 mg/dL 03/29/2025 10:03 PM [facility] [place] [employer] [facility] BUN 2(L) 6 - 20 mg/dL 03/29/2025 10:03 PM [facility] [place] [employer] [facility] CREATININE 0.51(L) 0.67 - 1.17 mg/dL 03/29/2025 10:03 PM [facility] [place] [employer] [facility] GLUCOSE 94 74 - 99 mg/dL 03/29/2025 10:03 PM [facility] [place] [employer] [facility] GFR >60 >=60 mL/min/1.7 3 sq meter 03/29/2025 10:03 PM [facility] [place] [employer] [facility] Comment:eGFR calculated with 2020 CKD-EPI equation. Vegetarian diet, extremely high or low muscle mass, and may affect results. Cystatin C with Glomerular Filtration Rate is a suitable alternative for these patients. ANION GAP 10 8 - 16 mmol/L 03/29/2025 10:03 PM [facility] Blood Venipuncture / Unknown 03/29/2025 9:19 PM DOCUMENT REVIEW SPECIALIST 03/29/2025 9:23 PM DOCUMENT REVIEW SPECIALIST us Freda Crowder DO CHEMISTRY ORDERABLES Final Resul t [facility] - [facility] CLIA# [id number] [address] [place] [address] * (ABNORMAL) CBC WITH DIFFERENTIAL (03/29/2025 9:19 PM DOCUMENT REVIEW SPECIALIST) WBC 8.6 4.0 - 9.8 K/uL 03/29/2025 9:45 PM DOCUMENT REVIEW SPECIALIST [facility] RBC 2.74(L) 4.50 - 5.40 M/uL 03/29/2025 9:45 PM DOCUMENT REVIEW SPECIALIST [facility] - . [facility] HEMOGLOBIN 8.4(L) 13.6 - 16.5 g/dL 03/29/2025 9:45 PM DOCUMENT REVIEW SPECIALIST [facility] HEMATOCRIT 24.9(L) 40.0 - 48.0 % 03/29/2025 9:45 PM DOCUMENT REVIEW SPECIALIST [facility] MCV 90.9 82.0 - 99.0 fL 03/29/2025 9:45 PM DOCUMENT REVIEW SPECIALIST [facility] MCH 30.7 27.2 - 32.6 pg 03/29/2025 9:45 PM DOCUMENT REVIEW SPECIALIST [facility] MCHC 33.7 31.5 - 35.5 g/dL 03/29/2025 9:45 PM DOCUMENT REVIEW SPECIALIST [facility] [place] RDW 19.8(H) 11.5 - 14.5 % 03/29/2025 9:45 PM DOCUMENT REVIEW SPECIALIST [facility] - . [facility] RDW-STDEV 65.3(H) 37.1 - 48.7 fL 03/29/2025 9:45 PM DOCUMENT REVIEW SPECIALIST [facility] PLATELETS 292 140 - 350 K/uL 03/29/2025 9:45 PM DOCUMENT REVIEW SPECIALIST [facility] - . [facility] MPV 10.2 9.3 - 12.4 fL 03/29/2025 9:45 PM DOCUMENT REVIEW SPECIALIST [facility] [place] NEUTROPHILS 40 % 03/29/2025 9:45 PM DOCUMENT REVIEW SPECIALIST [facility] LYMPHOCYTES 41 % 03/29/2025 9:45 PM DOCUMENT REVIEW SPECIALIST [facility] MONOCYTES 12 % 03/29/2025 9:45 PM [facility] EOSINOPHILS 6 % 03/29/2025 9:45 PM [facility] BASOPHILS 1 % 03/29/2025 9:45 PM [facility] IMMATURE GRANULOCYTES 0 % 03/29/2025 9:45 PM [facility] NEUTROPHIL ABSOLUTE 3.43 1.90 - 7.00 K/uL 03/29/2025 9:45 PM [facility] LYMPHOCYTE ABSOLUTE 3.53 0.70 - 4.50 K/uL 03/29/2025 9:45 PM [facility] MONOCYTE ABSOLUTE 1.01 0.10 - 1.30 K/uL 03/29/2025 9:45 PM [facility] EOSINOPHIL ABSOLUTE 0.51 0.00 - 0.70 K/uL 03/29/2025 9:45 PM [facility] BASOPHILS ABSOLUTE 0.07 0.00 - 0.20 K/uL 03/29/2025 9:45 PM [facility] IMMATURE GRANULOCYTES ABSOLUTE 0.01 0.00 - 0.03 K/uL 03/29/2025 9:45 PM [facility] Blood Venipuncture / Unknown 03/29/2025 9:19 PM DOCUMENT REVIEW SPECIALIST 03/29/2025 9:22 PM DOCUMENT REVIEW SPECIALIST us Freda Crowder DO HEMATOLOGY ORDERABLES Final Resu lt [facility] CLIA# [id number] [address] [place] [address] * MANUAL DIFFERENTIAL (03/27/2025 3:34 PM DOCUMENT REVIEW SPECIALIST) PLATELET EST. Consistent w Count 03/27/2025 4:28 PM DOCUMENT REVIEW SPECIALIST [facility] ANISOCYTOSIS 2+ /hpf 03/27/2025 4:28 PM DOCUMENT REVIEW SPECIALIST [facility] POIKILOCYTES 2+ /hpf 03/27/2025 4:28 PM DOCUMENT REVIEW SPECIALIST [facility] MACROCYTES 1+ /hpf 03/27/2025 4:28 PM DOCUMENT REVIEW SPECIALIST [facility] POLYCHROMASIA 1+ /hpf 03/27/2025 4:28 PM DOCUMENT REVIEW SPECIALIST [facility] HYPOCHROMIA 1+ /hpf 03/27/2025 4:28 PM DOCUMENT REVIEW SPECIALIST [facility] TARGET CELLS 1+ /hpf 03/27/2025 4:28 PM DOCUMENT REVIEW SPECIALIST [facility] SICKLE CELLS 1+ /hpf 03/27/2025 4:28 PM DOCUMENT REVIEW SPECIALIST [facility] . [facility] Blood Venipuncture / Unknown 03/27/2025 3:34 PM DOCUMENT REVIEW SPECIALIST 03/27/2025 3:40 PM DOCUMENT REVIEW SPECIALIST us ATEMEa DO HEMATOLOGY ORDERABLES COM Final Result [facility] [employer] [place] [employer] [facility] CLIA# [id number] [address] [address] * (ABNORMAL) RETICULOCYTES (03/27/2025 3:34 PM DOCUMENT REVIEW SPECIALIST) RETICULOCYTES 8.1(H) 0.7 - 2.9 % 03/27/2025 4:10 PM DOCUMENT REVIEW SPECIALIST [facility] IMMATURE RETIC FRACTION 29.6(H) 3.0 - 18.0 % 03/27/2025 4:10 PM DOCUMENT REVIEW SPECIALIST [facility] RETICULOCYTE, ABSOLUTE 0.2805 10e6/uL 03/27/2025 4:10 PM DOCUMENT REVIEW SPECIALIST [facility] Comment:Quantitated by dilut ion. Blood Venipuncture / Unknown 03/27/2025 3:34 PM DOCUMENT REVIEW SPECIALIST 03/27/2025 3:40 PM DOCUMENT REVIEW SPECIALIST us [employer] DO HEMATOLOGY ORDERABLES Final Resu lt [facility] [place] [employer] [facility] CLIA# [id number] [address] [place] [address] * (ABNORMAL) CBC WITH DIFFERENTIAL (03/27/2025 3:34 PM DOCUMENT REVIEW SPECIALIST) [facility] WBC 8.5 4.0 - 9.8 K/uL 03/27/2025 4:01 PM DOCUMENT REVIEW SPECIALIST [facility] RBC 3.33(L) 4.50 - 5.40 M/uL 03/27/2025 4:01 PM DOCUMENT REVIEW SPECIALIST [facility] HEMOGLOBIN 10.3(L) 13.6 - 16.5 g/dL 03/27/2025 4:01 PM DOCUMENT REVIEW SPECIALIST [facility] HEMATOCRIT 29.2(L) 40.0 - 48.0 % 03/27/2025 4:01 PM DOCUMENT REVIEW SPECIALIST [facility] MCV 87.7 82.0 - 99.0 fL 03/27/2025 4:01 PM DOCUMENT REVIEW SPECIALIST [facility] MCH 30.9 27.2 - 32.6 pg 03/27/2025 4:01 PM DOCUMENT REVIEW SPECIALIST [facility] MCHC 35.3 31.5 - 35.5 g/dL 03/27/2025 4:01 PM DOCUMENT REVIEW SPECIALIST [facility] RDW 20.5(H) 11.5 - 14.5 % 03/27/2025 4:01 PM DOCUMENT REVIEW SPECIALIST [facility] RDW-STDEV 64.2(H) 37.1 - 48.7 fL 03/27/2025 4:01 PM DOCUMENT REVIEW SPECIALIST [facility] PLATELETS 183 140 - 350 K/uL 03/27/2025 4:01 PM DOCUMENT REVIEW SPECIALIST [facility] MPV 11.2 9.3 - 12.4 fL 03/27/2025 4:01 PM DOCUMENT REVIEW SPECIALIST [facility] NEUTROPHILS 52 % 03/27/2025 4:01 PM DOCUMENT REVIEW SPECIALIST [facility] LYMPHOCYTES 33 % 03/27/2025 4:01 PM DOCUMENT REVIEW SPECIALIST [facility] MONOCYTES 13 % 03/27/2025 4:01 PM DOCUMENT REVIEW SPECIALIST [facility] EOSINOPHILS 2 % 03/27/2025 4:01 PM [facility] BASOPHILS 1 % 03/27/2025 4:01 PM [facility] IMMATURE GRANULOCYTES 0 % 03/27/2025 4:01 PM [facility] NEUTROPHIL ABSOLUTE 4.39 1.90 - 7.00 K/uL 03/27/2025 4:01 PM [facility] LYMPHOCYTE ABSOLUTE 2.81 0.70 - 4.50 K/uL 03/27/2025 4:01 PM [facility] MONOCYTE ABSOLUTE 1.08 0.10 - 1.30 K/uL 03/27/2025 4:01 PM [facility] EOSINOPHIL ABSOLUTE 0.17 0.00 - 0.70 K/uL 03/27/2025 4:01 PM [facility] BASOPHILS ABSOLUTE 0.05 0.00 - 0.20 K/uL 03/27/2025 4:01 PM [facility] - [facility] IMMATURE GRANULOCYTES ABSOLUTE 0.02 0.00 - 0.03 K/uL 03/27/2025 4:01 PM [facility] Blood Venipuncture / Unknown 03/27/2025 3:34 PM DOCUMENT REVIEW SPECIALIST 03/27/2025 3:40 PM DOCUMENT REVIEW SPECIALIST us Freda Crowder DO HEMATOLOGY ORDERABLES [id number] [address] [place] [address] * ECHO COMPLETE - CONTRAST AND STRAIN IF INDICATED (03/26/2025 12:20 PM CDT) EJECTION FRACTION 67 INTERFACE SYSTEM 03/26/2025 11:4 7 AM CDT Narrative INTERFACE SYSTEM - 03/26/2025 1:17 PM CDT [facility] [address] [place] [address] [email or web address] Transthoracic Echocardiogram Patient: Johnny Simon Study ID: ECHO COMPLETE - Gender: M : 1995 Age: 29 Race: PARISH Height 177.8cm Study Date: 03/26/2025 Weight: 106.6kg Access. #: [id number] BP: *Referring Physician:Freda Hall *Ordering Physician:Freda Hall tobacco sprayer: Nurse: Indications: Chest pain. STUDY CONCLUSIONS: SUMMARY: - Left ventricle: The cavity size was normal. Wall thickness was normal. Global systolic function is normal. For Epic reporting: the left ventricular ejection fraction is 67% . Left ventricular diastolic function parameters are normal. - Left atrium: The atrium is normal in size. - Right ventricle: The cavity size is normal. Systolic function is normal. Cardiac Anatomy: LEFT VENTRICLE: The cavity size was normal. Wall thickness was normal. Global systolic function is normal. For Epic reporting: the left ventricular ejection fraction is 67% . Wall motion is normal; there are no regional wall motion abnormalities. Global longitudinal strain was -14.8% (GLS is abnormal if greater than -16, i.e. -15). Left ventricular diastolic function parameters are normal. AORTIC VALVE: Structurally normal valve. Trileaflet. There was no stenosis. No significant regurgitation. The mean systolic gradient is 4mm Hg. The peak systolic gradient is 7mm Hg. The LVOT to aortic valve VTI ratio is 0.7. The valve area is 2.2cm^2. The ratio of LVOT to aortic valve peak velocity is 0.77. AORTA: Aortic root: The root is normal-sized. MITRAL VALVE: Structurally normal valve. There is no evidence for stenosis. No significant regurgitation. The mean diastolic gradient is 1mm Hg. The peak diastolic gradient is 4mm Hg. LEFT ATRIUM: The atrium is normal in size. RIGHT VENTRICLE: The cavity size is normal. Systolic function is normal. PULMONIC VALVE: Structurally normal valve. No significant regurgitation. TRICUSPID VALVE: Structurally normal valve. No significant regurgitation. PULMONARY ARTERY: Systolic pressure could not be accurately estimated. RIGHT ATRIUM: The atrium was normal in size. SYSTEMIC VEINS: Inferior vena cava: The IVC is normal-sized. PERICARDIUM: There is no pericardial effusion. Measurements Left ventricle Value Ref 04/18/2024 GLS, 2D -14.8 % --------- IVS, ED, LAX (H) 1.4 cm 0.6 - 1.0 JOSE, LAX (L) 2.0 cm 4.2 - 5.8 JOSE/bsa, LAX (L) 0.9 cm/m^2 2.2 - 3.0 JOSE, LAX chord (N) 4.3 cm 4.2 - 5.8 5.1 ESD, LAX chord (L) 2.0 cm 2.5 - 4.0 JOSE/bsa, LAX chord (L) 1.9 cm/m^2 2.2 - 3.0 ESD/bsa, LAX chord (L) 0.9 cm/m^2 1.3 - 2.1 FS, LAX chord (H) 54 % 25 - 43 PW, ED (N) 1.0 cm 0.6 - 1.0 1.2 EDV, 2-p (N) 86 ml 62 - 150 ESV, 2-p (N) 28 ml 21 - 61 EF, 2-p (N) 67 % 52 - 72 SV, 2-p 58 ml --------- SV/bsa, 2-p 25.8 ml/m^2 --------- E', lat kimber, TDI (N) 10.8 cm/sec >=10.0 15.0 E/e', lat kimber, TDI (N) 9 <=13 8 E', med kimber, TDI (N) 8.8 cm/sec >=7.0 9.5 E/e', med kimbre, TDI 11 --------- 12 E', avg, TDI 9.8 cm/sec --------- 12.2 E/e', avg, TDI (N) 10 <=14 10 LVOT Value Ref 04/18/2024 Diam, S 2.0 cm --------- 2.1 Area 3.1 cm^2 --------- 3.5 Peak cathy, S 0.99 m/sec --------- 1.29 VTI, S 17.8 cm --------- 23.8 Right ventricle Value Ref 04/18/2024 JOSE minor ax, A4C base (N) 3.7 cm 2.5 - 4.1 JOSE minor ax, A4C mid (H) 3.6 cm 1.9 - 3.5 JOSE major ax, A4C (N) 6.8 cm 5.9 - 8.3 TAPSE, MM (N) 3.9 cm >=1.7 2.4 S' lateral (N) 19.0 cm/sec >=9.5 20.4 Left atrium Value Ref 04/18/2024 AP dim, ES (N) 3.7 cm 3.0 - 4.0 4.2 AP dim index, ES (N) 1.7 cm/m^2 1.5 - 2.3 1.9 SI dim, A4C 5.7 cm --------- 6.1 Area ES, A4C (N) 17 cm^2 <=20 18 Area/bsa ES, A4C 7.72 cm^2/m^2 --------- 8.44 SI dim, A2C 5.2 cm --------- 6.3 SI dim, shorter 5.2 cm --------- 6.1 Vol, ES, 1-p A2C (N) 27 ml 18 - 58 74 Vol/bsa, ES, 1-p A2C (N) 12 ml/m^2 11 - 43 34 Vol, ES, 2-p 35 ml --------- 56 Vol/bsa, ES, 2-p (N) 16 ml/m^2 16 - 34 26 LA/Ao root ratio 1.06 --------- 1.24 Right atrium Value Ref 04/18/2024 SI dim, ES, A4C (N) 4.7 cm 3.4 - 5.3 5.8 SI dim/bsa, ES, A4C (N) 2.1 cm/m^2 1.8 - 3.0 2.7 Area, ES, A4C (N) 12 cm^2 10 - 18 21 Vol, ES, 1-p A4C 23 ml --------- 60 Vol/bsa, ES, 1-p A4C (L) 10 ml/m^2 28 Aortic valve Value Ref 04/18/2024 Peak v, S 1.3 m/sec --------- 1.7 Mean v, S 0.86 m/sec --------- 1.28 VTI, S 25.6 cm --------- 29.5 Mean grad, S 4 mm Hg --------- 7 Peak grad, S 7 mm Hg --------- 11 LVOT/AV, VTI ratio 0.7 --------- 0.81 ASHISH, VTI 2.2 cm^2 --------- 2.8 ASHISH/bsa, VTI 0.97 cm^2/m^2 --------- 1.28 LVOT/AV, Vpeak ratio 0.77 --------- 0.77 ASHISH, Vmax 2.3 cm^2 --------- 2.6 ASHISH/bsa, Vmax 1.04 cm^2/m^2 --------- 1.21 Mitral valve Value Ref 04/18/2024 Mean v, D 0.52 m/sec --------- Peak E 1.01 m/sec --------- 1.17 Peak A 0.76 m/sec --------- Decel time 180 ms --------- Mean grad, D 1 mm Hg --------- Peak grad, D 4 mm Hg --------- Peak E/A ratio 1.3 --------- A-VTI 24.6 cm --------- Pulmonic valve Value Ref 04/18/2024 Peak v, S 1.41 m/sec --------- 1.49 Peak grad, S 7 mm Hg --------- 9 Aortic root Value Ref 04/18/2024 Root diam, 3.5 cm --------- 3.4 Ascending aorta Value Ref 04/18/2024 AAo AP diam, S 3.7 cm --------- AAo AP diam/bsa, S 1.7 cm/m^2 --------- Legend: (L) and (H) braeden values outside specified reference range. (N) barrow values inside specified reference range. Procedure data: Procedure information: A transthoracic echocardiogram was performed. Scanning was performed from the parasternal, apical, and subcostal acoustic windows. Transthoracic echocardiogram. Complete 2D, complete spectral Doppler, and color Doppler. Birthdate: Patient birthdate: 1995. Age: Patient is 29year(s) old. Sex: gender: male. Height: 177.8cm. 70in. Weight: 106.6kg. 235lb. Body mass index: 33.7kg/m^2. Body surface area: 2.24m^2. Study date: Study date: 03/26/2025. Study time: 11:47 AM. Prepared and Electronically Authenticated Blaise Knowles MD [id number]:09 Procedure Note Blaise Knowles MD - 03/26/[address] [address] [email or web address] Transthoracic Echocardiogram Patient: Johnny Simon Study ID: ECHO COMPLETE - Gender: Lacy : 1995 Age: 29 Race: PARISH Height 177.8cm Study Date: 03/26/2025 Weight: 106.6kg Access. #: [id number] BP: *Referring Physician:Freda Hall *Ordering Physician:Freda Hall tobacco sprayer: Nurse: Indications: Chest pain. STUDY CONCLUSIONS: SUMMARY: - Left ventricle: The cavity size was normal. Wall thickness was normal. Global systolic function is normal. For Epic reporting: the leftventricular ejection fraction is 67% . Left ventricular diastolic functionparameters are normal. - Left atrium: The atrium is normal in size. - Right ventricle: The cavity size is normal. Systolic function isnormal. Cardiac Anatomy: LEFT VENTRICLE: The cavity size was normal. Wall thickness was normal.Global systolic function is normal. For Epic reporting: the left ventricularejection fraction is 67% . Wall motion is normal; there are no regional wallmotion abnormalities. Global longitudinal strain was -14.8% (GLS is abnormal if greater than -16, i.e. -15). Left ventricular diastolic functionparameters are normal. AORTIC VALVE: Structurally normal valve. Trileaflet. There was nostenosis. No significant regurgitation. The mean systolic gradient is 4mm Hg.The peak systolic gradient is 7mm Hg. The LVOT to aortic valve VTI ratio is0.7. The valve area is 2.2cm^2. The ratio of LVOT to aortic valve peak velocityis 0.77. AORTA: Aortic root: The root is normal-sized. MITRAL VALVE: Structurally normal valve. There is no evidence for stenosis. No significant regurgitation. The mean diastolic gradient is1mm Hg. The peak diastolic gradient is 4mm Hg. LEFT ATRIUM: The atrium is normal in size. RIGHT VENTRICLE: The cavity size is normal. Systolic function isnormal. PULMONIC VALVE: Structurally normal valve. No significantregurgitation. TRICUSPID VALVE: Structurally normal valve. No significantregurgitation. PULMONARY ARTERY: Systolic pressure could not be accurately estimated. RIGHT ATRIUM: The atrium was normal in size. SYSTEMIC VEINS: Inferior vena cava: The IVC is normal-sized. PERICARDIUM: There is no pericardial effusion. Measurements Left ventricle Value Ref 04/18/2024 GLS, 2D -14.8 % --------- IVS, ED, LAX (H) 1.4 cm 0.6 - 1.0 JOSE, LAX (L) 2.0 cm 4.2 - 5.8 JOSE/bsa, LAX (L) 0.9 cm/m^2 2.2 - 3.0 JOSE, LAX chord (N) 4.3 cm 4.2 - 5.8 5.1 ESD, LAX chord (L) 2.0 cm 2.5 - 4.0 JOSE/bsa, LAX chord (L) 1.9 cm/m^2 2.2 - 3.0 ESD/bsa, LAX chord (L) 0.9 cm/m^2 1.3 - 2.1 FS, LAX chord (H) 54 % 25 - 43 PW, ED (N) 1.0 cm 0.6 - 1.0 1.2 EDV, 2-p (N) 86 ml 62 - 150 ESV, 2-p (N) 28 ml 21 - 61 EF, 2-p (N) 67 % 52 - 72 SV, 2-p 58 ml --------- SV/bsa, 2-p 25.8 ml/m^2 --------- E', lat kimber, TDI (N) 10.8 cm/sec >=10.0 15.0 E/e', lat kimber, TDI (N) 9 <=13 8 E', med kimber, TDI (N) 8.8 cm/sec >=7.0 9.5 E/e', med kimber, TDI 11 --------- 12 E', avg, TDI 9.8 cm/sec --------- 12.2 E/e', avg, TDI (N) 10 <=14 10 LVOT Value Ref 04/18/2024 Diam, S 2.0 cm --------- 2.1 Area 3.1 cm^2 --------- 3.5 Peak cathy, S 0.99 m/sec --------- 1.29 VTI, S 17.8 cm --------- 23.8 Right ventricle Value Ref 04/18/2024 JOSE minor ax, A4C base (N) 3.7 cm 2.5 - 4.1 JOSE minor ax, A4C mid (H) 3.6 cm 1.9 - 3.5 JOSE major ax, A4C (N) 6.8 cm 5.9 - 8.3 TAPSE, MM (N) 3.9 cm >=1.7 2.4 S' lateral (N) 19.0 cm/sec >=9.5 20.4 Left atrium Value Ref 04/18/2024 AP dim, ES (N) 3.7 cm 3.0 - 4.0 4.2 AP dim index, ES (N) 1.7 cm/m^2 1.5 - 2.3 1.9 SI dim, A4C 5.7 cm --------- 6.1 Area ES, A4C (N) 17 cm^2 <=20 18 Area/bsa ES, A4C 7.72 cm^2/m^2 --------- 8.44 SI dim, A2C 5.2 cm --------- 6.3 SI dim, shorter 5.2 cm --------- 6.1 Vol, ES, 1-p A2C (N) 27 ml 18 - 58 74 Vol/bsa, ES, 1-p A2C (N) 12 ml/m^2 11 - 43 34 Vol, ES, 2-p 35 ml --------- 56 Vol/bsa, ES, 2-p (N) 16 ml/m^2 16 - 34 26 LA/Ao root ratio 1.06 --------- 1.24 Right atrium Value Ref 04/18/2024 SI dim, ES, A4C (N) 4.7 cm 3.4 - 5.3 5.8 SI dim/bsa, ES, A4C (N) 2.1 cm/m^2 1.8 - 3.0 2.7 Area, ES, A4C (N) 12 cm^2 10 - 18 21 Vol, ES, 1-p A4C 23 ml --------- 60 Vol/bsa, ES, 1-p A4C (L) 10 ml/m^2 28 Aortic valve Value Ref 04/18/2024 Peak v, S 1.3 m/sec --------- 1.7 Mean v, S 0.86 m/sec --------- 1.28 VTI, S 25.6 cm --------- 29.5 Mean grad, S 4 mm Hg --------- 7 Peak grad, S 7 mm Hg --------- 11 LVOT/AV, VTI ratio 0.7 --------- 0.81 ASHISH, VTI 2.2 cm^2 --------- 2.8 ASHISH/bsa, VTI 0.97 cm^2/m^2 --------- 1.28 LVOT/AV, Vpeak ratio 0.77 --------- 0.77 ASHISH, Vmax 2.3 cm^2 --------- 2.6 ASHISH/bsa, Vmax 1.04 cm^2/m^2 --------- 1.21 Mitral valve Value Ref 04/18/2024 Mean v, D 0.52 m/sec --------- Peak E 1.01 m/sec --------- 1.17 Peak A 0.76 m/sec --------- Decel time 180 ms --------- Mean grad, D 1 mm Hg --------- Peak grad, D 4 mm Hg --------- Peak E/A ratio 1.3 --------- A-VTI 24.6 cm --------- Pulmonic valve Value Ref 04/18/2024 Peak v, S 1.41 m/sec --------- 1.49 Peak grad, S 7 mm Hg --------- 9 Aortic root Value Ref 04/18/2024 Root diam, 3.5 cm --------- 3.4 Ascending aorta Value Ref 04/18/2024 AAo AP diam, S 3.7 cm --------- AAo AP diam/bsa, S 1.7 cm/m^2 --------- Legend: (L) and (H) braeden values outside specified reference range. (N) barrow values inside specified reference range. Procedure data: Procedure information: A transthoracic echocardiogram was performed.Scanning was performed from the parasternal, apical, and subcostal acousticwindows. Transthoracic echocardiogram. Complete 2D, complete spectralDoppler, and color Doppler. Birthdate: Patient birthdate: 1995. Age:Patient is 29year(s) old. Sex: gender: male. Height: 177.8cm. 70in.Weight: 106.6kg. 235lb. Body mass index: 33.7kg/m^2. Body surface area: 2.24m^2. Study date: Study date: 03/26/2025. Study time: 11:47 AM. Prepared and Electronically Authenticated Blaise Knowles MD [id number] Fredacarroll Crowder DO US ORDERABLES Final Result INTERFACE SYSTEM Refer to clinic/hospital department * (ABNORMAL) RETICULOCYTES (03/26/2025 11:43 AM CDT) RETICULOCYTES 11.2(H) 0.7 - 2.9 % 03/26/2025 1:34 PM CDT [facility] - [facility] IMMATURE RETIC FRACTION 31.2(H) 3.0 - 18.0 % 03/26/2025 1:34 PM CDT [facility] - [facility] RETICULOCYTE, ABSOLUTE 0.3410 10e6/uL 03/26/2025 1:34 PM CDT [facility] Comment:Quantitated by dilut ion. Blood Venipuncture / Unknown 03/26/2025 11:43 AM CDT 03/26/2025 11:48 AM CDT Freda Crowder DO HEMATOLOGY ORDERABLES Final Resu lt [facility] CLIA# [id number] [address] [facility] [place] [address] * (ABNORMAL) CBC WITHOUT DIFFERENTIAL (03/26/2025 11:43 AM CDT) WBC 9.2 4.0 - 9.8 K/uL 03/26/2025 12:45 PM CDT [facility] NRBCS 1 % 03/26/2025 12:45 PM CDT [facility] RBC 3.02(L) 4.50 - 5.40 M/uL 03/26/2025 12:45 PM CDT [facility] HEMOGLOBIN 9.4(L) 13.6 - 16.5 g/dL 03/26/2025 12:45 PM CDT [facility] - . [facility] HEMATOCRIT 27.5(L) 40.0 - 48.0 % 03/26/2025 12:45 PM CDT [facility] - . [facility] MCV 91.1 82.0 - 99.0 fL 03/26/2025 12:45 PM CDT [facility] MCH 31.1 27.2 - 32.6 pg 03/26/2025 12:45 PM CDT [facility] - [facility] MCHC 34.2 31.5 - 35.5 g/dL 03/26/2025 12:45 PM CDT [facility] - . [facility] PLATELETS 248 140 - 350 K/uL 03/26/2025 12:45 PM CDT [facility] MPV 10.0 9.3 - 12.4 fL 03/26/2025 12:45 PM CDT [facility] RDW 21.2(H) 11.5 - 14.5 % 03/26/2025 12:45 PM CDT [facility] - . [facility] RDW-STDEV 70.9(H) 37.1 - 48.7 fL 03/26/2025 12:45 PM CDT [facility] - [facility] Blood Venipuncture / Unknown 03/26/2025 11:43 AM CDT 03/26/2025 11:48 AM CDT us Freda Crowder DO HEMATOLOGY ORDERABLES Final Resu lt [facility]# [id number] [address] [facility] [place] [address] * (ABNORMAL) BASIC METABOLIC PANEL (03/26/2025 11:43 AM CDT) SODIUM 137 136 - 145 mmol/L 03/26/2025 12:33 PM CDT [facility] - . [place] POTASSIUM 3.8 3.5 - 5.0 mmol/L 03/26/2025 12:33 PM CDT [facility] CHLORIDE 107 98 - 107 mmol/L 03/26/2025 12:33 PM CDT [facility] - [facility] CO2 18(L) 22 - 29 mmol/L 03/26/2025 12:33 PM T [facility] CALCIUM 8.8 8.6 - 10.2 mg/dL 03/26/2025 12:33 PM T [facility] BUN 2(L) 6 - 20 mg/dL 03/26/2025 12:33 PM T [facility] CREATININE 0.42(L) 0.67 - 1.17 mg/dL 03/26/2025 12:33 PM T [facility] GLUCOSE 126(H) 74 - 99 mg/dL 03/26/2025 12:33 PM T [facility] GFR >60 >=60 mL/min/1.7 3 sq meter 03/26/2025 12:33 PM T [facility] Comment:eGFR calculated with 2020 CKD-EPI equation. Vegetarian diet, extremely high or low muscle mass, and may affect results. Cystatin C with Glomerular Filtration Rate is a suitable alternative for these patients. ANION GAP 12 8 - 16 mmol/L 03/26/2025 12:33 PM T [facility] Blood Venipuncture / Unknown 03/26/2025 11:43 AM CDT 03/26/2025 11:48 AM CDT us Freda Crowder DO CHEMISTRY ORDERABLES Final Resul t [facility]# [id number] [address] [facility] [address] * (ABNORMAL) RETICULOCYTES (03/25/2025 1:31 PM CDT) RETICULOCYTES 13.3(H) 0.7 - 2.9 % 03/25/2025 2:07 PM CDT [facility] IMMATURE RETIC FRACTION 39.6(H) 3.0 - 18.0 % 03/25/2025 2:07 PM T [facility] RETICULOCYTE, ABSOLUTE 0.3980 10e6/uL 03/25/2025 2:07 PM CDT [facility] Comment:Quantitated by pita wu Blood Venipuncture / Unknown 03/25/2025 1:31 PM CDT 03/25/2025 1:35 PM CDT us Freda Crowder DO HEMATOLOGY ORDERABLES Final Resu lt [facility] CLIA# [id number] [address] [place], [place] [address] * (ABNORMAL) CBC WITHOUT DIFFERENTIAL (03/25/2025 1:31 PM CDT) WBC 8.8 4.0 - 9.8 K/uL 03/25/2025 1:42 PM CDT [facility] NRBCS 2 % 03/25/2025 1:42 PM CDT [facility] RBC 2.75(L) 4.50 - 5.40 M/uL 03/25/2025 1:42 PM CDT [facility] HEMOGLOBIN 8.8(L) 13.6 - 16.5 g/dL 03/25/2025 1:42 PM CDT [facility] - [facility] HEMATOCRIT 24.5(L) 40.0 - 48.0 % 03/25/2025 1:42 PM CDT [facility] - [facility] MCV 89.1 82.0 - 99.0 fL 03/25/2025 1:42 PM CDT [facility] MCH 32.0 27.2 - 32.6 pg 03/25/2025 1:42 PM CDT [facility] - [facility] MCHC 35.9(H) 31.5 - 35.5 g/dL 03/25/2025 1:42 PM CDT [facility] PLATELETS 275 140 - 350 K/uL 03/25/2025 1:42 PM CDT [facility] - [facility] MPV 9.9 9.3 - 12.4 fL 03/25/2025 1:42 PM CDT [facility] RDW 21.4(H) 11.5 - 14.5 % 03/25/2025 1:42 PM CDT [facility] - [facility] RDW-STDEV 69.3(H) 37.1 - 48.7 fL 03/25/2025 1:42 PM CDT [facility] Blood Venipuncture / Unknown 03/25/2025 1:31 PM CDT 03/25/2025 1:35 PM CDT us Freda Crowder DO HEMATOLOGY ORDERABLES Final Resu lt [facility] CLIA# [id number] [address] [facility] [place] [address] * (ABNORMAL) BASIC METABOLIC PANEL (03/25/2025 1:31 PM CDT) SODIUM 137 136 - 145 mmol/L 03/25/2025 2:18 PM CDT [facility] POTASSIUM 3.7 3.5 - 5.0 mmol/L 03/25/2025 2:18 PM CDT [facility] Comment:Hemolysis present. R esult may be falsely elevated. CHLORIDE 104 98 - 107 mmol/L 03/25/2025 2:18 PM CDT [facility] CO2 23 22 - 29 mmol/L 03/25/2025 2:18 PM CDT [facility] CALCIUM 8.3(L) 8.6 - 10.2 mg/dL 03/25/2025 2:18 PM CDT [facility] BUN 2(L) 6 - 20 mg/dL 03/25/2025 2:18 PM CDT [facility] CREATININE 0.48(L) 0.67 - 1.17 mg/dL 03/25/2025 2:18 PM CDT [facility] GLUCOSE 110(H) 74 - 99 mg/dL 03/25/2025 2:18 PM CDT [facility] GFR >60 >=60 mL/min/1.7 3 sq meter 03/25/2025 2:18 PM CDT [facility] Comment:eGFR calculated with 2020 CKD-EPI equation. Vegetarian diet, extremely high or low muscle mass, and may affect results. Cystatin C with Glomerular Filtration Rate is a suitable alternative for these patients. ANION GAP 10 8 - 16 mmol/L 03/25/2025 2:18 PM CDT [facility] Blood Venipuncture / Unknown 03/25/2025 1:31 PM CDT 03/25/2025 1:34 PM CDT ATEMEa Hactus CHEMISTRY ORDERABLES Final Resul t Performing Organization Address [facility]/ZIP Co de Phone Number [facility] CLIA# [id number] [address] [place] [address] * TROPONIN (03/25/2025 1:31 PM CDT) TROPONIN T, 5TH GEN <6 <=15 ng/L 03/25/2025 2:18 PM CDT [facility] Blood Venipuncture / Unknown 03/25/2025 1:31 PM CDT 03/25/2025 1:34 PM CDT Narrative [facility] - 03/25/2025 2:18 PM CDT Troponin Undetectable Assay Depot DO CHEMISTRY ORDERABLES Final Resul t Performing Organization Address City/[facility]/ZIP Co de Phone Number [facility] CLIA# [id number] [address] [place] [address] * EKG 12-LEAD (03/25/2025 10:46 AM CDT) 03/25/2025 10:4 6 AM CDT Narrative INTERFACE SYSTEM - 03/25/2025 2:23 PM CDT [address] [address] Test Date: 2025-03-25 Pat Name: JOHNNY SIMON Department: 41 Room: [facility] 1 Gender: M Clinical Science Liaison: : 1995 Requested By: ADORE QUINONEZ Order Number: [id number] [place] MD: Braeden Harrington Measurements Intervals [place] Rate: 74 P: 36 NM: 194 QRS: 53 QRSD: 90 T: 62 QT: 434 QTc: 482 Interpretive Statements Sinus rhythm Borderline prolonged QT interval Electronically Signed On 03-25-2025 14:23:44 CDT by Braeden Harrington Procedure Note Braeden Harrington MD - 03/25/2025 [facility] [address] [place] [id number] Test Date: 2025-03-25 Pat Name: JOHNNY SIMON Department: 41 Room: [facility] 1 Gender: M Clinical Science Liaison: [place] : 1995 Requested By: ADORE QUINONEZ Order Number: [id number] [place] MD: Braeden Harrington Measurements Intervals [place] Rate: 74 P: 36 NM: 194 QRS: 53 QRSD: 90 T: 62 QT: 434 QTc: 482 Interpretive Statements Sinus rhythm Borderline prolonged QT interval Electronically Signed On 03-25-2025 14:23:44 CDT by Braeden Harrington Freda Crowder DO ECG ORDERABLES Final Result Performing Organization Address City/State/[facility] Co de Phone Number INTERFACE SYSTEM Refer to clinic/hospital department * XR CHEST PA OR AP 1 VW (03/25/2025 6:34 AM CDT) Anatomical Region Laterality Modality Chest Computed Radiogr aphy 03/25/2025 6:34 AM CDT Narrative 03/25/2025 8:54 AM CDT EXAM: PORTABLE AP CHEST DATE: 03/25/2025 6:34 AM HISTORY: Chest Pain. See Reason for Exam FINDINGS: There is marked cardiomegaly increased from December 22, 2024. There is interstitial edema. There is no consolidation. There is no pleural effusion or pneumothorax DICTATION LOCATION: Location 1 - [facility] Procedure Note Jaren Smith MD - 03/25/2025 EXAM: PORTABLE AP CHEST DATE: 03/25/2025 6:34 AM HISTORY: Chest Pain. See Reason for Exam FINDINGS: There is marked cardiomegaly increased from December 22, 2024. There is interstitial edema. There is no consolidation. There is no pleural effusion or pneumothorax DICTATION LOCATION: Location 1 - [facility] us Marina Negrete APRN DIAGNOSTIC IMAGING ORDERABL ES Final Result * MANUAL DIFFERENTIAL (03/24/2025 12:08 PM CDT) PLATELET EST. Consistent w Count 03/24/2025 1:42 PM CDT [facility] - . [facility] ANISOCYTOSIS 1+ /hpf 03/24/2025 1:42 PM CDT [facility] POIKILOCYTES 1+ /hpf 03/24/2025 1:42 PM CDT [facility] MACROCYTES 1+ /hpf 03/24/2025 1:42 PM CDT [facility] POLYCHROMASIA 1+ /hpf 03/24/2025 1:42 PM CDT [facility] HYPOCHROMIA 1+ /hpf 03/24/2025 1:42 PM CDT [facility] TARGET CELLS 1+ /hpf 03/24/2025 1:42 PM CDT [facility] - [facility] SICKLE CELLS 2+ /hpf 03/24/2025 1:42 PM CDT [facility] PAPPENHEIMER BODIES Present 03/24/2025 1:42 PM CDT [facility] FERNANDEZ-JOLLY BODIES Present /hpf 03/24/2025 1:42 PM CDT [facility] Blood Venipuncture / Unknown 03/24/2025 12:08 PM CDT 03/24/2025 12:25 PM CDT us Freda Crowder DO HEMATOLOGY ORDERABLES COM Final Result [facility]# [id number] [address] [place] [address] * TSH (03/24/2025 12:08 PM CDT) TSH 2.63 0.27 - 4.20 uIU/mL 03/24/2025 1:16 PM CDT [facility] Blood Venipuncture / Unknown 03/24/2025 12:08 PM CDT 03/24/2025 12:25 PM CDT us Freda Crowder DO CHEMISTRY ORDERABLES Final Resul t Performing Organization Address [facility] de Phone Number [facility]# [id number] [address] [place] [address] * (ABNORMAL) RETICULOCYTES (03/24/2025 12:08 PM CDT) RETICULOCYTES 17.3(H) 0.7 - 2.9 % 03/24/2025 1:22 PM CDT [facility] IMMATURE RETIC FRACTION 32.4(H) 3.0 - 18.0 % 03/24/2025 1:22 PM CDT [facility] RETICULOCYTE, ABSOLUTE 0.4675 10e6/uL 03/24/2025 1:22 PM CDT [facility] Comment:Quantitated by dilut ion. Blood Venipuncture / Unknown 03/24/2025 12:08 PM CDT 03/24/2025 12:25 PM CDT us Freda Crowder DO HEMATOLOGY ORDERABLES Final Resu lt Performing Organization Address [facility] Co de Phone Number [facility]# [id number] [address] [place] [address] * (ABNORMAL) CBC WITH DIFFERENTIAL (03/24/2025 12:08 PM CDT) [facility] WBC 9.0 4.0 - 9.8 K/uL 03/24/2025 1:08 PM CDT [facility] - [facility] NRBCS 3 % 03/24/2025 1:08 PM CDT [facility] RBC 2.65(L) 4.50 - 5.40 M/uL 03/24/2025 1:08 PM CDT [facility] HEMOGLOBIN 8.4(L) 13.6 - 16.5 g/dL 03/24/2025 1:08 PM CDT [facility] - [facility] HEMATOCRIT 24.3(L) 40.0 - 48.0 % 03/24/2025 1:08 PM CDT [facility] MCV 91.7 82.0 - 99.0 fL 03/24/2025 1:08 PM CDT [facility] MCH 31.7 27.2 - 32.6 pg 03/24/2025 1:08 PM CDT [facility] MCHC 34.6 31.5 - 35.5 g/dL 03/24/2025 1:08 PM CDT [facility] RDW 22.6(H) 11.5 - 14.5 % 03/24/2025 1:08 PM CDT [facility] RDW-STDEV 75.9(H) 37.1 - 48.7 fL 03/24/2025 1:08 PM CDT [facility] PLATELETS 268 140 - 350 K/uL 03/24/2025 1:08 PM CDT [facility] MPV 10.1 9.3 - 12.4 fL 03/24/2025 1:08 PM CDT [facility] NEUTROPHILS 41 % 03/24/2025 1:08 PM CDT [facility] LYMPHOCYTES 44 % 03/24/2025 1:08 PM CDT [facility] MONOCYTES 11 % 03/24/2025 1:08 PM CDT [facility] EOSINOPHILS 4 % 03/24/2025 1:08 PM CDT [facility] BASOPHILS 1 % 03/24/2025 1:08 PM CDT [facility] [facility] - [facility] IMMATURE GRANULOCYTES 0 % 03/24/2025 1:08 PM CDT [facility] NEUTROPHIL ABSOLUTE 3.67 1.90 - 7.00 K/uL 03/24/2025 1:08 PM [facility] LYMPHOCYTE ABSOLUTE 3.96 0.70 - 4.50 K/uL 03/24/2025 1:08 PM CDT [facility] MONOCYTE ABSOLUTE 0.96 0.10 - 1.30 K/uL 03/24/2025 1:08 PM CDT [facility] [facility] - [facility] EOSINOPHIL ABSOLUTE 0.35 0.00 - 0.70 K/uL 03/24/2025 1:08 PM CDT [facility] [facility] - [facility] BASOPHILS ABSOLUTE 0.06 0.00 - 0.20 K/uL 03/24/2025 1:08 PM CDT [facility] [facility] - . [facility] IMMATURE GRANULOCYTES ABSOLUTE 0.03 0.00 - 0.03 K/uL 03/24/2025 1:08 PM CDT [employer] [facility] - . [facility] Blood Venipuncture / Unknown 03/24/2025 12:08 PM CDT 03/24/2025 12:25 PM CDT us Freda Crowder DO HEMATOLOGY ORDERABLES Final Resu lt [facility] LABORATORY SERVICES [facility] CLIA# [id number] [address] [facility] [place] [place] [address] * (ABNORMAL) BASIC METABOLIC PANEL (03/24/2025 12:08 PM CDT) SODIUM 137 136 - 145 mmol/L 03/24/2025 1:16 PM CDT [facility] SERVICES [facility] POTASSIUM 3.2(L) 3.5 - 5.0 mmol/L 03/24/2025 1:16 PM CDT [employer] [facility] - . [facility] CHLORIDE 104 98 - 107 mmol/L 03/24/2025 1:16 PM CDT [facility] LABORATORY SERVICES - [facility] CO2 24 22 - 29 mmol/L 03/24/2025 1:16 PM CDT [facility] LABORAT[facility] CALCIUM 8.1(L) 8.6 - 10.2 mg/dL 03/24/2025 1:16 PM CDT [facility] LABORAT[facility] SERVICES - . [facility] BUN 3(L) 6 - 20 mg/dL 03/24/2025 1:16 PM CDT [facility]. [facility] CREATININE 0.50(L) 0.67 - 1.17 mg/dL 03/24/2025 1:16 PM CDT [facility] LABORATORY SERVICES - [facility] GLUCOSE 85 74 - 99 mg/dL 03/24/2025 1:16 PM CDT [facility]. [facility] GFR >60 >=60 mL/min/1.7 3 sq meter 03/24/2025 1:16 PM CDT [facility] SERVICES - [facility] Comment:eGFR calculated with 2020 CKD-EPI equation. Vegetarian diet, extremely high or low muscle mass, and may affect results. Cystatin C with Glomerular Filtration Rate is a suitable alternative for these patients. ANION GAP 9 8 - 16 mmol/L 03/24/2025 1:16 PM T [facility] Blood Venipuncture / Unknown 03/24/2025 12:08 PM CDT 03/24/2025 12:25 PM CDT us Freda Crowder DO CHEMISTRY ORDERABLES Final Resul t [facility] [employer] [facility]# [id number] [address] [facility] [place] [address] * MANUAL DIFFERENTIAL (03/23/2025 5:23 AM CDT) PLATELET EST. Consistent w Count 03/23/2025 7:32 AM CDT [facility] ANISOCYTOSIS 1+ /hpf 03/23/2025 7:32 AM CDT [facility] POIKILOCYTES 1+ /hpf 03/23/2025 7:32 AM CDT [facility] MACROCYTES 1+ /hpf 03/23/2025 7:32 AM CDT [facility] POLYCHROMASIA 2+ /hpf 03/23/2025 7:32 AM CDT [facility] - [facility] HYPOCHROMIA 1+ /hpf 03/23/2025 7:32 AM CDT [facility] - [facility] TARGET CELLS 1+ /hpf 03/23/2025 7:32 AM CDT [facility] - [facility] SICKLE CELLS 2+ /hpf 03/23/2025 7:32 AM CDT [facility] - [facility] PAPPENHEIMER BODIES Present 03/23/2025 7:32 AM CDT [facility] - [facility] FERNANDEZ-JOLLY BODIES Present /hpf 03/23/2025 7:32 AM CDT [facility] - [facility] Blood Venipuncture / Unknown 03/23/2025 5:23 AM CDT 03/23/2025 6:01 AM CDT us Freda Crowder DO HEMATOLOGY ORDERABLES COM Final Result [facility] SERVICES [facility]# [id number] 5 [facility] [place] [address] * (ABNORMAL) RETICULOCYTES (03/23/2025 5:23 AM CDT) RETICULOCYTES 15.7(H) 0.7 - 2.9 % 03/23/2025 7:57 AM CDT [facility] LAB[facility]AT[facility] SERVICES - [facility] IMMATURE RETIC FRACTION 38.1(H) 3.0 - 18.0 % 03/23/2025 7:57 AM CDT [facility]AT[facility] SERVICES - [facility] RETICULOCYTE, ABSOLUTE 0.4790 10e6/uL 03/23/2025 7:57 AM CDT [facility] - [facility] Comment:Quantitated by dilut ion. Blood Venipuncture / Unknown 03/23/2025 5:23 AM CDT 03/23/2025 6:01 AM CDT us Freda Crowder DO HEMATOLOGY ORDERABLES Final Resu lt [facility] SERVICES - [facility] [id number] [facility] [place] [address] * (ABNORMAL) COMPREHENSIVE METABOLIC PANEL (03/23/2025 5:23 AM CDT) SODIUM 139 136 - 145 mmol/L 03/23/2025 6:59 AM CDT [employer] LABORATORY SERVICES - [facility] POTASSIUM 3.1(L) 3.5 - 5.0 mmol/L 03/23/2025 6:59 AM CDT [facility]ATORY SERVICES - [facility] CHLORIDE 104 98 - 107 mmol/L 03/23/2025 6:59 AM CDT [facility] - [facility] CO2 24 22 - 29 mmol/L 03/23/2025 6:59 AM T [facility] - [facility] CALCIUM 8.3(L) 8.6 - 10.2 mg/dL 03/23/2025 6:59 AM CDT [facility] - [facility] BUN 3(L) 6 - 20 mg/dL 03/23/2025 6:59 AM T [facility] - [facility] CREATININE 0.53(L) 0.67 - 1.17 mg/dL 03/23/2025 6:59 AM T [facility] - [facility] GLUCOSE 89 74 - 99 mg/dL 03/23/2025 6:59 AM T [facility] - [facility] TOTAL PROTEIN 7.2 6.7 - 8.6 g/dL 03/23/2025 6:59 AM CDT [facility] - [facility] ALBUMIN 3.8 3.5 - 5.2 g/dL 03/23/2025 6:59 AM CDT [employer] [facility] LAB[facility] - [facility] BILIRUBIN TOTAL 5.4(H) 0.0 - 1.2 mg/dL 03/23/2025 6:59 AM CDT [facility] LAB[facility]ATORY SERVICES - [facility] ALKALINE PHOSPHATASE 222(H) 40 - 129 U/L 03/23/2025 6:59 AM CDT [facility] AST 57(H) <41 U/L 03/23/2025 6:59 AM CDT [facility] ALT 25 <42 U/L 03/23/2025 6:59 AM T [facility] GFR >60 >=60 mL/min/1.7 3 sq meter 03/23/2025 6:59 AM T [facility] Comment:eGFR calculated with 2020 CKD-EPI equation. Vegetarian diet, extremely high or low muscle mass, and may affect results. Cystatin C with Glomerular Filtration Rate is a suitable alternative for these patients. ANION GAP 11 8 - 16 mmol/L 03/23/2025 6:59 AM T [facility] Blood Venipuncture / Unknown 03/23/2025 5:23 AM CDT 03/23/2025 6:01 AM CDT [facility] - 03/23/2025 6:59 AM CDT Samples containing indocyanine green cause interferences on Total and/or Direct Bilirubin and must not be measured. us Freda Crowder DO CHEMISTRY ORDERABLES Final Resul t [facility]# [id number] 5 [facility] [place] [address] * (ABNORMAL) CBC WITH DIFFERENTIAL (03/23/2025 5:23 AM CDT) WBC 9.9(H) 4.0 - 9.8 K/uL 03/23/2025 7:22 AM T [facility] NRBCS 5 % 03/23/2025 7:22 AM T [facility] RBC 2.62(L) 4.50 - 5.40 M/uL 03/23/2025 7:22 AM [facility] HEMOGLOBIN 8.6(L) 13.6 - 16.5 g/dL 03/23/2025 7:22 AM T [facility] Comment:Significant change f rom prior result, correlate clinically and redraw if necessary. HEMATOCRIT 24.1(L) 40.0 - 48.0 % 03/23/2025 7:22 AM [employer] LABORATORY SERVICES - [facility] MCV 92.0 82.0 - 99.0 fL 03/23/2025 7:22 AM [employer] LABORATORY SERVICES - [facility] MCH 32.8(H) 27.2 - 32.6 pg 03/23/2025 7:22 AM [employer] LABORATORY SERVICES - [facility] MCHC 35.7(H) 31.5 - 35.5 g/dL 03/23/2025 7:22 AM [employer] LABORATORY SERVICES - [facility] RDW 22.9(H) 11.5 - 14.5 % 03/23/2025 7:22 AM [employer] LABORATORY SERVICES - [facility] RDW-STDEV 73.9(H) 37.1 - 48.7 fL 03/23/2025 7:22 AM [employer] LABORATORY SERVICES - [facility] PLATELETS 278 140 - 350 K/uL 03/23/2025 7:22 AM [employer] LABORATORY SERVICES [facility] MPV 10.8 9.3 - 12.4 fL 03/23/2025 7:22 AM [employer] LABORATORY SERVICES - [facility] NEUTROPHILS 45 % 03/23/2025 7:22 AM [employer] LABORATORY SERVICES [facility] LYMPHOCYTES 41 % 03/23/2025 7:22 AM [employer] LABORATORY SERVICES [facility] MONOCYTES 10 % 03/23/2025 7:22 AM [employer] LABORATORY SERVICES - [facility] EOSINOPHILS 3 % 03/23/2025 7:22 AM [employer] LABORATORY SERVICES - [facility] BASOPHILS 1 % 03/23/2025 7:22 AM [employer] LABORATORY SERVICES - [facility] IMMATURE GRANULOCYTES 1 % 03/23/2025 7:22 AM [employer] LABORATORY SERVICES - [facility] Comment:IG (Immature Granulo cyte) count includes Metamyelocytes, Myelocytes, and Promyelocytes NEUTROPHIL ABSOLUTE 4.41 1.90 - 7.00 K/uL 03/23/2025 7:22 AM [employer] LABORATORY SERVICES [facility]. [facility] LYMPHOCYTE ABSOLUTE 4.09 0.70 - 4.50 K/uL 03/23/2025 7:22 AM CDT [employer] LABORATORY SERVICES - [facility] MONOCYTE ABSOLUTE 1.00 0.10 - 1.30 K/uL 03/23/2025 7:22 AM CDT [employer] LABORATORY SERVICES - [facility] EOSINOPHIL ABSOLUTE 0.26 0.00 - 0.70 K/uL 03/23/2025 7:22 AM CDT [employer] [facility] - [facility] BASOPHILS ABSOLUTE 0.06 0.00 - 0.20 K/uL 03/23/2025 7:22 AM CDT [employer] [facility] - . [facility] IMMATURE GRANULOCYTES ABSOLUTE 0.05(H) 0.00 - 0.03 K/uL 03/23/2025 7:22 AM CDT [employer] LABORATORY SERVICES - [facility] Blood Venipuncture / Unknown 03/23/2025 5:23 AM CDT 03/23/2025 6:01 AM CDT us Freda Crowder DO HEMATOLOGY ORDERABLES Final Resu lt [facility] LABORATORY SERVICES - [facility] CLIA# [id number] [address] [place] [address] * TYPE AND SCREEN (03/22/2025 8:24 PM CDT) ABO GROUP A 03/22/2025 10:07 PM CDT [employer] [facility]AT[facility] -- [facility] RH (D) TYPE Positive 03/22/2025 10:07 PM CDT [employer] [facility]ATORY [facility] -- [facility] ANTIBODY SCREEN Negative 03/22/2025 10:07 PM CDT [employer] [facility]ATORY [facility] -- [facility] Blood Venipuncture / Unknown 03/22/2025 8:24 PM CDT 03/22/2025 8:43 PM CDT us Freda Crowder DO BLOOD BANK ORDERABLES Edited Res ult - Final [employer] LABORATORY SERVICES -- [facility] CLIA# [id number] [address] [place] [address] * PREPARE RED BLOOD CELLS (03/22/2025 4:15 PM CDT) Pathologist [facility] [place] COMPONENT TYPE [id number] [facility] COMPONENT IDENTIFICATION [id number] [facility] UNIT ABO A [facility] UN[facility] RH POS [facility] CROSSMATCH Compatible [facility] COMPONENT STATUS Transfused ME [facility]ORY SERVICES [facility] COMPONENT EXPIRATION DATE/TIME [id number] [facility] COMPONENT CODING SYSTEM 6200 [facility] VOLUME, BLOOD PRODUCT 350 [facility] Other, specify 03/22/2025 4: 15 PM CDT Freda Crowder DO LAB TRANSFUSION ORDERABLES Edite d Result - Final [facility] CLIA# [id number] [address] [place] [address] * MANUAL DIFFERENTIAL (03/22/2025 12:37 PM CDT) [facility] PLATELET EST. Consistent w Count 03/22/2025 2:28 PM CDT [facility]ATORY SERVICES - [facility] ANISOCYTOSIS 2+ /hpf 03/22/2025 2:28 PM CDT [facility]ATORY [facility] POIKILOCYTES 1+ /hpf 03/22/2025 2:28 PM CDT [facility] - [facility] POLYCHROMASIA 1+ /hpf 03/22/2025 2:28 PM CDT [facility]ATORY [facility] - [facility] TARGET CELLS 1+ /hpf 03/22/2025 2:28 PM CDT [facility] SICKLE CELLS 1+ /hpf 03/22/2025 2:28 PM CDT [facility]ATORY [facility] - [facility] PAPPENHEIMER BODIES Present 03/22/2025 2:28 PM CDT [facility]AT[facility] FERNANDEZ-JOLLY BODIES Present /hpf 03/22/2025 2:28 PM CDT [facility] LABORATORY SERVICES [facility] Blood Venipuncture / Unknown 03/22/2025 12:37 PM CDT 03/22/2025 12:44 PM CDT Freda Crowder DO HEMATOLOGY ORDERABLES COM Final Result Performing Organization Address City/[facility]/ZIP Co de Phone Number [facility] [employer] [facility] CLIA# [id number] [address] [place], [place] [address] * (ABNORMAL) RETICULOCYTES (03/22/2025 12:37 PM CDT) Pathologist [facility] [place] RETICULOCYTES 20.3(H) 0.7 - 2.9 % 03/22/2025 1:37 PM CDT [facility] LABORATORY [facility] IMMATURE RETIC FRACTION 35.9(H) 3.0 - 18.0 % 03/22/2025 1:37 PM CDT [facility] LABOR[facility] RETICULOCYTE, ABSOLUTE 0.3455 10e6/uL 03/22/2025 1:37 PM CDT [facility] LABORATORY SERVICES [facility] Comment:Quantitated by dilut ion. Blood Venipuncture / Unknown 03/22/2025 12:37 PM CDT 03/22/2025 12:44 PM CDT Freda Crowder DO HEMATOLOGY ORDERABLES Final Resu lt [facility] [employer] [facility] CLIA# [id number] [address] [place] [address] * (ABNORMAL) COMPREHENSIVE METABOLIC PANEL (03/22/2025 12:37 PM CDT) Pathologist [facility] [place] SODIUM 140 136 - 145 mmol/L 03/22/2025 1:35 PM CDT [facility] [employer] [facility] POTASSIUM 3.4(L) 3.5 - 5.0 mmol/L 03/22/2025 1:35 PM CDT [facility] LABORATORY [facility] CHLORIDE 108(H) 98 - 107 mmol/L 03/22/2025 1:35 PM [facility] LABORATORY [facility] - . [facility] CO2 25 22 - 29 mmol/L 03/22/2025 1:35 PM [facility] - [facility] CALCIUM 8.2(L) 8.6 - 10.2 mg/dL 03/22/2025 1:35 PM [facility] LABORATORY [facility] BUN 2(L) 6 - 20 mg/dL 03/22/2025 1:35 PM [facility] CREATININE 0.56(L) 0.67 - 1.17 mg/dL 03/22/2025 1:35 PM [facility] GLUCOSE 108(H) 74 - 99 mg/dL 03/22/2025 1:35 PM [facility] TOTAL PROTEIN 6.5(L) 6.7 - 8.6 g/dL 03/22/2025 1:35 PM [facility] [employer] [facility] ALBUMIN 3.7 3.5 - 5.2 g/dL 03/22/2025 1:35 PM [facility] BILIRUBIN TOTAL 5.5(H) 0.0 - 1.2 mg/dL 03/22/2025 1:35 PM [facility] ALKALINE PHOSPHATASE 213(H) 40 - 129 U/L 03/22/2025 1:35 PM [facility] [employer] [facility] AST 03/22/2025 1:35 PM [facility] [employer] [facility] Comment:Test cannot be perfo rmed. Sample hemolysis interference above limits. Redraw if indicated. ALT 24 <42 U/L 03/22/2025 1:35 PM [facility] [employer] [facility] GFR >60 >=60 mL/min/1. 73 sq meter 03/22/2025 1:35 PM [facility] [employer] [facility] Comment:eGFR calculated with 2020 CKD-EPI equation. Vegetarian diet, extremely high or low muscle mass, and may affect results. Cystatin C with Glomerular Filtration Rate is a suitable alternative for these patients. ANION GAP 7(L) 8 - 16 mmol/L 03/22/2025 1:35 PM CDT [facility] LABORATORY [facility] Blood Venipuncture / Unknown 03/22/2025 12:37 PM CDT 03/22/2025 12:44 PM CDT [facility] LABORATORY [facility] - [facility] - 03/22/2025 1:35 PM CDT Samples containing indocyanine green cause interferences on Total and/or Direct Bilirubin and must not be measured. Freda Crowder CHEMISTRY ORDERABLES Final Resul t [facility] LABORATORY [facility] CLIA# [id number] [address] [place] [address] * (ABNORMAL) CBC WITH DIFFERENTIAL (03/22/2025 12:37 PM CDT) Pathologist [facility] [place] WBC 9.7 4.0 - 9.8 K/uL 03/22/2025 1:24 PM CDT [facility] LABORATORY [facility] NRBCS 6 % 03/22/2025 1:24 PM CDT [facility] LABORATORY [facility] RBC 2.15(L) 4.50 - 5.40 M/uL 03/22/2025 1:24 PM CDT [facility] LABORATORY [facility] HEMOGLOBIN 7.0(L) 13.6 - 16.5 g/dL 03/22/2025 1:24 PM T [facility] LABORATORY [facility] HEMATOCRIT 20.0(L) 40.0 - 48.0 % 03/22/2025 1:24 PM CDT [facility] LABORATORY [facility] MCV 93.0 82.0 - 99.0 fL 03/22/2025 1:24 PM CDT [facility] LABORATORY [facility] MCH 32.6 27.2 - 32.6 pg 03/22/2025 1:24 PM CDT [facility] LABORATORY SERVICES [facility] MCHC 35.0 31.5 - 35.5 g/dL 03/22/2025 1:24 PM CDT [facility] LABORATORY SERVICES [facility] RDW 24.2(H) 11.5 - 14.5 % 03/22/2025 1:24 PM CDT [employer] LABORATORY SERVICES - [facility] RDW-STDEV 79.2(H) 37.1 - 48.7 fL 03/22/2025 1:24 PM CDT [employer] LABORATORY SERVICES - [facility] PLATELETS 264 140 - 350 K/uL 03/22/2025 1:24 PM CDT [employer] LABORATORY SERVICES - [facility] MPV 10.4 9.3 - 12.4 fL 03/22/2025 1:24 PM CDT [employer] LABORATORY SERVICES - . [facility] NEUTROPHILS 42 % 03/22/2025 1:24 PM CDT [employer] [facility]ORAT[facility] SERVICES - . [facility] LYMPHOCYTES 42 % 03/22/2025 1:24 PM CDT [employer] [facility]ORAT[facility] SERVICES - . [facility] MONOCYTES 11 % 03/22/2025 1:24 PM CDT [employer] [facility]ORATORY SERVICES - [facility] EOSINOPHILS 4 % 03/22/2025 1:24 PM CDT [employer] [facility]ORATORY SERVICES - . [facility] BASOPHILS 1 % 03/22/2025 1:24 PM CDT [employer] [facility]ORAT[facility] SERVICES - . [facility] IMMATURE GRANULOCYTES 1 % 03/22/2025 1:24 PM CDT [employer] LABORATORY SERVICES - [facility] Comment:IG (Immature Granulo cyte) count includes Metamyelocytes, Myelocytes, and Promyelocytes NEUTROPHIL ABSOLUTE 4.10 1.90 - 7.00 K/uL 03/22/2025 1:24 PM CDT [employer] LABORATORY SERVICES - [facility] LYMPHOCYTE ABSOLUTE 4.03 0.70 - 4.50 K/uL 03/22/2025 1:24 PM CDT [employer] [facility]ORATORY SERVICES - . [facility] MONOCYTE ABSOLUTE 1.10 0.10 - 1.30 K/uL 03/22/2025 1:24 PM CDT [employer] LABORATORY SERVICES - . [facility] EOSINOPHIL ABSOLUTE 0.34 0.00 - 0.70 K/uL 03/22/2025 1:24 PM CDT [employer] [facility]ORATORY SERVICES - . [facility] BASOPHILS ABSOLUTE 0.07 0.00 - 0.20 K/uL 03/22/2025 1:24 PM CDT [employer] [facility]ORATORY SERVICES - . [facility] IMMATURE GRANULOCYTES ABSOLUTE 0.06(H) 0.00 - 0.03 K/uL 03/22/2025 1:24 PM CDT [employer] [facility]ORATORY SERVICES - [facility] Blood Venipuncture / Unknown 03/22/2025 12:37 PM CDT 03/22/2025 12:44 PM CDT Freda Crowder DO HEMATOLOGY ORDERABLES Final Resu lt [facility] LABORATORY SERVICES - [facility] CLIA# [id number] [address] [place] [address] * MANUAL DIFFERENTIAL (03/21/2025 12:40 PM CDT) PLATELET EST. Consistent w Count 03/21/2025 2:09 PM CDT [facility] LABORATORY SERVICES - . [facility] ANISOCYTOSIS 2+ /hpf 03/21/2025 2:09 PM CDT [facility] LABORATORY SERVICES - . [facility] POIKILOCYTES 3+ /hpf 03/21/2025 2:09 PM CDT [facility] LABORATORY SERVICES - . [facility] POLYCHROMASIA 2+ /hpf 03/21/2025 2:09 PM CDT [facility] LABORATORY SERVICES - [facility] TARGET CELLS 2+ /hpf 03/21/2025 2:09 PM CDT [facility] LABORATORY SERVICES - [facility] SICKLE CELLS 1+ /hpf 03/21/2025 2:09 PM CDT [facility] LABORATORY SERVICES - [facility] Blood Venipuncture / Unknown 03/21/2025 12:40 PM CDT 03/21/2025 1:11 PM CDT Guadalupe Yates MD HEMATOLOGY ORDERABLES COM Fin al Result [facility] LABORATORY SERVICES - [facility] CLIA# [id number] [address] [place] [address] * (ABNORMAL) COMPREHENSIVE METABOLIC PANEL (03/21/2025 12:40 PM CDT) SODIUM 140 136 - 145 mmol/L 03/21/2025 2:21 PM CDT [facility] LABORATORY SERVICES - [facility] POTASSIUM 3.5 3.5 - 5.0 mmol/L 03/21/2025 2:21 PM [facility] LABORATORY [facility]. [facility] CHLORIDE 107 98 - 107 mmol/L 03/21/2025 2:21 PM [facility] CO2 25 22 - 29 mmol/L 03/21/2025 2:21 PM [facility] CALCIUM 8.2(L) 8.6 - 10.2 mg/dL 03/21/2025 2:21 PM [facility] BUN <2(L) 6 - 20 mg/dL 03/21/2025 2:21 PM [facility] CREATININE 0.61(L) 0.67 - 1.17 mg/dL 03/21/2025 2:21 PM [facility] GLUCOSE 112(H) 74 - 99 mg/dL 03/21/2025 2:21 PM [facility] TOTAL PROTEIN 6.5(L) 6.7 - 8.6 g/dL 03/21/2025 2:21 PM [facility] ALBUMIN 3.6 3.5 - 5.2 g/dL 03/21/2025 2:21 PM [facility] BILIRUBIN TOTAL 5.8(H) 0.0 - 1.2 mg/dL 03/21/2025 2:21 PM [facility] ALKALINE PHOSPHATASE 218(H) 40 - 129 U/L 03/21/2025 2:21 PM [facility] AST 50(H) <41 U/L 03/21/2025 2:21 PM [facility] ALT 22 <42 U/L 03/21/2025 2:21 PM [facility] GFR >60 >=60 mL/min/1.7 3 sq meter 03/21/2025 2:21 PM [facility] Comment:eGFR calculated with 2020 CKD-EPI equation. Vegetarian diet, extremely high or low muscle mass, and may affect results. Cystatin C with Glomerular Filtration Rate is a suitable alternative for these patients. ANION GAP 8 8 - 16 mmol/L 03/21/2025 2:21 PM CDT [facility] Blood Venipuncture / Unknown 03/21/2025 12:40 PM CDT 03/21/2025 1:11 PM CDT [facility] - [facility] - 03/21/2025 2:21 PM CDT Samples containing indocyanine green cause interferences on Total and/or Direct Bilirubin and must not be measured. Guadalupe Yates MD CHEMISTRY ORDERABLES Final Re sult [facility] [employer] [facility] CLIA# [id number] [place] [id number] * (ABNORMAL) CBC WITH DIFFERENTIAL (03/21/2025 12:40 PM CDT) WBC 10.2(H) 4.0 - 9.8 K/uL 03/21/2025 1:36 PM CDT [facility] NRBCS 3 % 03/21/2025 1:36 PM CDT [facility] RBC 2.18(L) 4.50 - 5.40 M/uL 03/21/2025 1:36 PM CDT [facility] HEMOGLOBIN 7.1(L) 13.6 - 16.5 g/dL 03/21/2025 1:36 PM T [facility] HEMATOCRIT 20.0(L) 40.0 - 48.0 % 03/21/2025 1:36 PM CDT [facility] MCV 91.7 82.0 - 99.0 fL 03/21/2025 1:36 PM CDT [facility] MCH 32.6 27.2 - 32.6 pg 03/21/2025 1:36 PM CDT [facility] - [facility] MCHC 35.5 31.5 - 35.5 g/dL 03/21/2025 1:36 PM CDT [facility] RDW 24.2(H) 11.5 - 14.5 % 03/21/2025 1:36 PM CDT [facility] - [facility] RDW-STDEV 75.0(H) 37.1 - 48.7 fL 03/21/2025 1:36 PM CDT [facility] - [facility] PLATELETS 255 140 - 350 K/uL 03/21/2025 1:36 PM CDT [facility] - [facility] MPV 10.5 9.3 - 12.4 fL 03/21/2025 1:36 PM CDT [facility] NEUTROPHILS 51 % 03/21/2025 1:36 PM CDT [facility] - [facility] LYMPHOCYTES 32 % 03/21/2025 1:36 PM CDT [facility] - [facility] MONOCYTES 9 % 03/21/2025 1:36 PM CDT [facility] EOSINOPHILS 5 % 03/21/2025 1:36 PM CDT [facility] BASOPHILS 1 % 03/21/2025 1:36 PM CDT [facility] - [facility] IMMATURE GRANULOCYTES 2 % 03/21/2025 1:36 PM CDT [facility] Comment:IG (Immature Granulo cyte) count includes Metamyelocytes, Myelocytes, and Promyelocytes NEUTROPHIL ABSOLUTE 5.21 1.90 - 7.00 K/uL 03/21/2025 1:36 PM CDT [facility] - [facility] LYMPHOCYTE ABSOLUTE 3.28 0.70 - 4.50 K/uL 03/21/2025 1:36 PM CDT [facility] - [facility] MONOCYTE ABSOLUTE 0.90 0.10 - 1.30 K/uL 03/21/2025 1:36 PM CDT [facility] - [facility] EOSINOPHIL ABSOLUTE 0.47 0.00 - 0.70 K/uL 03/21/2025 1:36 PM CDT [facility] - [facility] BASOPHILS ABSOLUTE 0.06 0.00 - 0.20 K/uL 03/21/2025 1:36 PM CDT [facility] - [facility] IMMATURE GRANULOCYTES ABSOLUTE 0.24(H) 0.00 - 0.03 K/uL 03/21/2025 1:36 PM CDT [facility] Blood Venipuncture / Unknown 03/21/2025 12:40 PM CDT 03/21/2025 1:11 PM CDT us Guadalupe Yates MD HEMATOLOGY ORDERABLES Final R esult Performing Organization Address [facility]/ZIP Co de Phone Number [facility] CLIA# [id number] [address] [place], [place] [address] * MANUAL DIFFERENTIAL (03/19/2025 3:01 PM CDT) PLATELET EST. Consistent w Count 03/19/2025 4:52 PM CDT [facility] - [facility] ANISOCYTOSIS 2+ /hpf 03/19/2025 4:52 PM CDT [facility] - [facility] POIKILOCYTES 2+ /hpf 03/19/2025 4:52 PM CDT [facility] - [facility] MACROCYTES 1+ /hpf 03/19/2025 4:52 PM CDT [facility] - [facility] POLYCHROMASIA 1+ /hpf 03/19/2025 4:52 PM CDT [facility] - [facility] HYPOCHROMIA 1+ /hpf 03/19/2025 4:52 PM CDT [facility] - . [facility] TARGET CELLS 2+ /hpf 03/19/2025 4:52 PM CDT [facility] - [facility] SICKLE CELLS 1+ /hpf 03/19/2025 4:52 PM CDT [facility] Blood Venipuncture / Unknown 03/19/2025 3:01 PM CDT 03/19/2025 3:20 PM CDT Catrina Swanson MD HEMATOLOGY ORDERABLES COM Fin al Result [facility] CLIA# [id number] [address] [place] [address] * (ABNORMAL) RETICULOCYTES (03/19/2025 3:01 PM CDT) Pathologist [facility] [place] RETICULOCYTES 17.2(H) 0.7 - 2.9 % 03/19/2025 4:32 PM CDT [facility] IMMATURE RETIC FRACTION 44.5(H) 3.0 - 18.0 % 03/19/2025 4:32 PM CDT [facility] RETICULOCYTE, ABSOLUTE 0.4215 10e6/uL 03/19/2025 4:32 PM CDT [facility] Comment:Quantitated by pita benjamin. Blood Venipuncture / Unknown 03/19/2025 3:01 PM CDT 03/19/2025 3:20 PM CDT Catrina Swanson MD HEMATOLOGY ORDERABLES Final R esult [facility]# [id number] [address] [place] [address] * (ABNORMAL) CBC WITH DIFFERENTIAL (03/19/2025 3:01 PM CDT) [facility] WBC 10.6(H) 4.0 - 9.8 K/uL 03/19/2025 4:13 PM CDT [facility] NRBCS 1 % 03/19/2025 4:13 PM CDT [facility] RBC 2.34(L) 4.50 - 5.40 M/uL 03/19/2025 4:13 PM CDT [facility] HEMOGLOBIN 7.4(L) 13.6 - 16.5 g/dL 03/19/2025 4:13 PM CDT [facility] HEMATOCRIT 21.2(L) 40.0 - 48.0 % 03/19/2025 4:13 PM CDT [facility] MCV 90.6 82.0 - 99.0 fL 03/19/2025 4:13 PM CDT [facility] MCH 31.6 27.2 - 32.6 pg 03/19/2025 4:13 PM CDT [facility] MCHC 34.9 31.5 - 35.5 g/dL 03/19/2025 4:13 PM CDT [facility] - [facility] RDW 21.9(H) 11.5 - 14.5 % 03/19/2025 4:13 PM CDT [facility] RDW-STDEV 71.0(H) 37.1 - 48.7 fL 03/19/2025 4:13 PM CDT [facility] - [facility] PLATELETS 275 140 - 350 K/uL 03/19/2025 4:13 PM CDT [facility] MPV 10.7 9.3 - 12.4 fL 03/19/2025 4:13 PM CDT [facility] - [facility] NEUTROPHILS 47 % 03/19/2025 4:13 PM CDT [facility] - [facility] LYMPHOCYTES 39 % 03/19/2025 4:13 PM CDT [facility] - . [facility] MONOCYTES 11 % 03/19/2025 4:13 PM CDT [facility] - . [facility] EOSINOPHILS 2 % 03/19/2025 4:13 PM CDT [facility] - . [facility] BASOPHILS 1 % 03/19/2025 4:13 PM CDT [facility] - . [facility] IMMATURE GRANULOCYTES 0 % 03/19/2025 4:13 PM CDT [facility] - . [facility] NEUTROPHIL ABSOLUTE 5.04 1.90 - 7.00 K/uL 03/19/2025 4:13 PM CDT [facility] - . [facility] LYMPHOCYTE ABSOLUTE 4.16 0.70 - 4.50 K/uL 03/19/2025 4:13 PM CDT [facility] - . [facility] MONOCYTE ABSOLUTE 1.16 0.10 - 1.30 K/uL 03/19/2025 4:13 PM CDT [facility] - . [facility] EOSINOPHIL ABSOLUTE 0.17 0.00 - 0.70 K/uL 03/19/2025 4:13 PM CDT [facility] - . [facility] BASOPHILS ABSOLUTE 0.06 0.00 - 0.20 K/uL 03/19/2025 4:13 PM CDT [facility] - . [place] IMMATURE GRANULOCYTES ABSOLUTE 0.03 0.00 - 0.03 K/uL 03/19/2025 4:13 PM [facility] Blood Venipuncture / Unknown 03/19/2025 3:01 PM CDT 03/19/2025 3:20 PM CDT us Catrina Swanson MD HEMATOLOGY ORDERABLES Final R esult [facility] [employer] [facility] CLIA# [id number] [address] [place], [place] [address] * (ABNORMAL) BASIC METABOLIC PANEL (03/19/2025 9:30 AM CDT) SODIUM 138 136 - 145 mmol/L 03/19/2025 11:10 AM [facility] POTASSIUM 3.3(L) 3.5 - 5.0 mmol/L 03/19/2025 11:10 AM [facility] CHLORIDE 105 98 - 107 mmol/L 03/19/2025 11:10 AM [facility] CO2 22 22 - 29 mmol/L 03/19/2025 11:10 AM [facility] CALCIUM 8.2(L) 8.6 - 10.2 mg/dL 03/19/2025 11:10 AM [facility] BUN 2(L) 6 - 20 mg/dL 03/19/2025 11:10 AM [facility] CREATININE 0.51(L) 0.67 - 1.17 mg/dL 03/19/2025 11:10 AM [facility] GLUCOSE 119(H) 74 - 99 mg/dL 03/19/2025 11:10 AM [facility] GFR >60 >=60 mL/min/1.7 3 sq meter 03/19/2025 11:10 AM [facility] Comment:eGFR calculated with 2020 CKD-EPI equation. Vegetarian diet, extremely high or low muscle mass, and may affect results. Cystatin C with Glomerular Filtration Rate is a suitable alternative for these patients. 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 documented in this encounter Administered Medications Inactive Administered Medications - up to 3 most recent administrations Medication Order MAR Action Action Date Dose Rate Site cyclobenzaprine (FLEXERIL) tablet 5 mg 5 mg, Oral, THREE TIMES DAILY PRN, Starting on Fara 03/24/25 at 1106, Until Fri03/30/25 at 1529, Discomfort, Pain, Routine Given 03/27/2025 11:31 AM DOCUMENT REVIEW SPECIALIST 5 mg diphenhydrAMINE (BENADRYL) injection 25 mg 25 mg, IV, EVERY 4 HOURS PRN, 2 doses, Starting on 03/22/25 at 2307, Until Fri03/23/25 at 0424, Other (See Comment), to be given prior to and after blood transfusion, do not administer at same time as IV pain medication, Routine Given 03/23/2025 4:24 AM CDT 25 mg Feeding Started 03/22/2025 11:33 PM CDT 25 mg diphenhydrAMINE (BENADRYL) tablet 50 mg 50 mg, Oral, EVERY 6 HOURS PRN, Starting on 03/19/25 at 0952, Until Fri03/30/25 at 1529, Allergies, Routine folic acid (FOLVITE) tablet 1 mg 1 mg, Oral, DAILY, First dose on 03/19/25 at 0600, Until Discontinued, Routine, Previous Med: folic acid (FOLVITE) 1 mg tablet - Orig Sig - Take 1 mg by mouth daily. Given 03/29/2025 6:28 AM DOCUMENT REVIEW SPECIALIST 1 mg Given 03/28/2025 6:20 AM DOCUMENT REVIEW SPECIALIST 1 mg Given 03/27/2025 5:31 AM DOCUMENT REVIEW SPECIALIST 1 mg HYDROmorphone (DILAUDID) 0.5 mg/0.5 mL syringe 0.5 mg 0.5 mg, IV, EVERY 2 HOURS PRN, Starting on Fri03/18/25 at 2006, Until 03/19/25 at 0952, Pain (See admin instructions), Routine Given 03/19/2025 4:40 AM CDT 0.5 mg Given 03/19/2025 2:00 AM CDT 0.5 mg Given 03/18/2025 11:37 PM CDT 0.5 mg HYDROmorphone (DILAUDID) 2 mg/mL injection 1.5 mg 1.5 mg, IV, EVERY 3 HOURS PRN, Starting on Fara 03/24/25 at 1700, Until 03/27/25 at 1159, Pain, Severe, Routine Given 03/27/2025 10:32 AM DOCUMENT REVIEW SPECIALIST 1.5 mg Given 03/27/2025 7:02 AM DOCUMENT REVIEW SPECIALIST 1.5 mg Feeding Started 03/27/2025 4:11 AM DOCUMENT REVIEW SPECIALIST 1.5 mg HYDROmorphone (DILAUDID) 2 mg/mL injection 1.5 mg 1.5 mg, IV, EVERY 3 HOURS PRN, Starting on 03/27/25 at 2200, Until 03/28/25 at 1200, Pain, Routine Given 03/28/2025 9:12 AM DOCUMENT REVIEW SPECIALIST 1.5 mg Given 03/28/2025 6:18 AM DOCUMENT REVIEW SPECIALIST 1.5 mg Given 03/28/2025 3:14 AM DOCUMENT REVIEW SPECIALIST 1.5 mg HYDROmorphone (DILAUDID) 2 mg/mL injection 1.5 mg 1.5 mg, IV, EVERY 3 HOURS PRN, 1 dose, Starting on 03/28/25 at 1159, Until 03/28/25 at 1218, Pain, Routine Given 03/28/2025 12:18 PM DOCUMENT REVIEW SPECIALIST 1.5 mg HYDROmorphone (DILAUDID) 2 mg/mL injection 2 mg 2 mg, IV, EVERY 3 HOURS PRN, Starting on 03/19/25 at 0951, Until 03/20/25 at 0923, Pain (See admin instructions), Routine Given 03/20/2025 9:11 AM CDT 2 mg Given 03/20/2025 5:08 AM CDT 2 mg Given 03/19/2025 11:05 PM CDT 2 mg HYDROmorphone (DILAUDID) 2 mg/mL injection 2 mg 2 mg, IV, EVERY 3 HOURS PRN, Starting on 03/20/25 at 0923, Until Fara 03/24/25 at 1108, Pain (See admin instructions), Pain, Break-Through, Routine Given 03/24/2025 7:58 AM CDT 2 mg Given 03/24/2025 3:38 AM CDT 2 mg Given 03/24/2025 12:42 AM CDT 2 mg HYDROmorphone (DILAUDID) 2 mg/mL injection 2 mg 2 mg, IV, EVERY 3 HOURS PRN, 3 doses, Starting on Fara 03/24/25 at 1108, Until Fara 03/24/25 at 1830, Pain (See admin instructions), Pain, Break-Through, Routine Given 03/24/2025 2:34 PM CDT 2 mg Given 03/24/2025 11:32 AM CDT 2 mg HYDROmorphone (DILAUDID) 2 mg/mL injection 2 mg 2 mg, IV, EVERY 3 HOURS PRN, 3 doses, Starting on 03/27/25 at 1159, Until 03/27/25 at 2130, Pain, Severe, Routine Given 03/27/2025 9:30 PM DOCUMENT REVIEW SPECIALIST 2 mg Given 03/27/2025 6:45 PM DOCUMENT REVIEW SPECIALIST 2 mg Given 03/27/2025 3:03 PM DOCUMENT REVIEW SPECIALIST 2 mg HYDROmorphone (PF) (DILAUDID) 1 mg/mL syringe 0.5 mg 0.5 mg, IV, ONE TIME ONLY, 1 dose, On Fri03/30/25 at 0015, Routine Given 03/30/2025 12:24 AM DOCUMENT REVIEW SPECIALIST 0.5 mg HYDROmorphone (PF) (DILAUDID) 1 mg/mL syringe 1 mg 1 mg, IV, EVERY 3 HOURS PRN, Starting on Fri03/28/25 at 1400, Until Fri03/29/25 at 2359, Pain, Severe, Routine Given 03/29/2025 9:37 PM DOCUMENT REVIEW SPECIALIST 1 mg Given 03/29/2025 6:36 PM DOCUMENT REVIEW SPECIALIST 1 mg Given 03/29/2025 3:41 PM DOCUMENT REVIEW SPECIALIST 1 mg ketorolac (TORADOL) injection 10 mg 10 mg, IV, EVERY 6 HOURS, 27 doses, First dose on 03/19/25 at 1415, Last dose on 03/26/25 at 0200, Routine Given 03/24/2025 8:01 AM CDT 10 mg Given 03/23/2025 8:12 PM CDT 10 mg Given 03/22/2025 8:38 PM CDT 10 mg ketorolac (TORADOL) injection 10 mg 10 mg, IV, TWO TIMES DAILY, 8 doses, First dose (after last modification) on Fara 03/24/25 at 1800, Last dose on Fri03/28/25 at 0600, Routine Given 03/24/2025 5:40 PM CDT 10 mg ketorolac (TORADOL) injection 10 mg 10 mg, IV, TWO TIMES DAILY, 4 doses, First dose (after last modification) on 03/27/25 at 1800, Last dose on Fri03/29/25 at 0600, Routine Given 03/27/2025 6:52 PM DOCUMENT REVIEW SPECIALIST 10 mg ondansetron (ZOFRAN ODT) tablet 4 mg 4 mg, Oral, EVERY 6 HOURS PRN, Starting on Fri03/18/25 at 2005, Until Fri03/30/25 at 1529, Nausea/Emesis, Routine Given 03/20/2025 3:39 PM CDT 4 mg Given 03/19/2025 10:48 AM CDT 4 mg oxyCODONE (ROXICODONE) tablet 10 mg 10 mg, Oral, EVERY 4 HOURS PRN, Starting on Fri03/18/25 at 2005, Until 03/19/25 at 0950, Pain (See admin instructions), Routine Given 03/19/2025 8:25 AM CDT 10 mg Given 03/19/2025 4:10 AM CDT 10 mg Given 03/18/2025 8:36 PM CDT 10 mg oxyCODONE (ROXICODONE) tablet 15 mg 15 mg, Oral, EVERY 4 HOURS PRN, Starting on Fri03/18/25 at 2005, Until 03/19/25 at 0950, Pain (See admin instructions), Routine Given 03/19/2025 12:51 AM CDT 15 mg oxyCODONE-acetaminophen (PERCOCET) 10-325 mg per tablet 2 Tablet 2 Tablet, Oral, EVERY 8 HOURS, First dose on 03/19/25 at 1100, Until Discontinued, Routine Given 03/28/2025 11:13 AM DOCUMENT REVIEW SPECIALIST 2 Tablets Given 03/28/2025 3:13 AM DOCUMENT REVIEW SPECIALIST 2 Tablets Given 03/27/2025 7:57 PM DOCUMENT REVIEW SPECIALIST 2 Tablets oxyCODONE-acetaminophen (PERCOCET) 10-325 mg per tablet 3 Tablet 3 Tablet, Oral, EVERY 8 HOURS, First dose (after last modification) on 03/28/25 at 1900, Until Discontinued, Routine Given 03/30/2025 11:08 AM DOCUMENT REVIEW SPECIALIST 3 Tabl ets Given 03/30/2025 3:09 AM DOCUMENT REVIEW SPECIALIST 3 Tablets Given 03/29/2025 7:28 PM DOCUMENT REVIEW SPECIALIST 3 Tablets potassium CHLORIDE (KLOR-CON) SR tablet 40 mEq 40 mEq, Oral, TWO TIMES DAILY WITH MEALS, 2 doses, First dose on 03/19/25 at 1700, Last dose on 03/20/25 at 0700, Routine Given 03/20/2025 9:10 AM CDT 4 0 mEq Given 03/19/2025 4:30 PM CDT 40 mEq potassium CHLORIDE (KLOR-CON) SR tablet 40 mEq 40 mEq, Oral, TWO TIMES DAILY WITH MEALS, 2 doses, First dose on Fri03/23/25 at 1205, Last dose on Fri03/23/25 at 2000, Routine Given 03/23/2025 12:46 PM CDT 40 mEq potassium CHLORIDE (KLOR-CON) SR tablet 40 mEq 40 mEq, Oral, ONE TIME ONLY, 1 dose, On Fara 03/24/25 at 1400, Routine Given 03/24/2025 2:35 PM CDT 40 mEq sodium chloride 0.9 % infusion IV, at 100 mL/hr, CONTINUOUS, Starting on Fri03/18/25 at 2015, Until 03/19/25 at 2014, Routine New Bag 03/19/2025 8:27 AM CDT 100 mL/hr Rate Verify 03/19/2025 4:59 AM CDT 100 mL/hr Restarted 03/18/2025 11:33 PM CDT 100 mL/hr sodium chloride 0.9 % infusion IV, at 100 mL/hr, CONTINUOUS, Starting on 03/19/25 at 2115, Until 03/20/25 at 0914, Routine New Bag 03/20/2025 4:17 AM CDT 100 m L/hr sodium chloride 0.9 % infusion IV, at 100 mL/hr, CONTINUOUS, Starting on 03/20/25 at 1030, Until 03/20/25 at 1444, Routine New Bag 03/20/2025 10:30 AM CDT 100 mL/hr sodium chloride 0.9 % infusion IV, at 100 mL/hr, CONTINUOUS, Starting on 03/20/25 at 1445, Until 03/21/25 at 0244, Routine New Bag 03/21/2025 12:12 AM CDT 100 mL/hr New Bag 03/20/2025 3:36 PM CDT 100 mL/hr sodium chloride 0.9 % infusion IV, at 75 mL/hr, CONTINUOUS, Starting on Fri03/21/25 at 0915, Until Fri03/25/25 at 1648, Routine Rate Change 03/24/2025 8:04 AM CDT 75 mL /hr New Bag 03/23/2025 3:07 PM CDT 100 mL/hr Restarted 03/21/2025 5:07 PM CDT 100 mL/hr sodium chloride 0.9 % infusion IV, at 75 mL/hr, CONTINUOUS, Starting on Fri03/25/25 at 1700, Until Fri03/25/25 at 1959, Routine New Bag 03/25/2025 5:00 PM CDT 75 mL/hr sodium chloride 0.9 % infusion IV, at 75 mL/hr, CONTINUOUS, Starting on 03/26/25 at 0700, Until 03/30/25 at 0705, Routine New Bag 03/29/2025 2:14 PM DOCUMENT REVIEW SPECIALIST 75 mL/hr Rate Verify 03/29/2025 11:07 AM DOCUMENT REVIEW SPECIALIST 75 mL/hr Restarted 03/29/2025 9:22 AM DOCUMENT REVIEW SPECIALIST 75 mL/hr sodium chloride flush injection 10 mL 10 mL, IV, EVERY 12 HOURS (BlD), First dose on Fri03/18/25 at 2015, Until Discontinued, Routine Given 03/29/2025 6:29 AM DOCUMENT REVIEW SPECIALIST 10 mL Given 03/28/2025 6:22 AM DOCUMENT REVIEW SPECIALIST 10 mL Given 03/27/2025 6:00 PM DOCUMENT REVIEW SPECIALIST 10 mL documented in this encounter Active and Recently Administered Medications Times are shown in DOCUMENT REVIEW SPECIALIST. Scheduled Medication Order 03/28/2025 03/29/2025 03/30/2025 dextrose 5 % in water 250 mL flush bag 25 mL 25 mL, IV, SEE ADMIN INSTRUCTIONS, Starting on Fri03/18/25 at 2004, Until Fri03/30/25 at 1529, Routine folic acid (FOLVITE) tablet 1 mg 1 mg, Oral, DAILY, First dose on Fri03/19/25 at 0600, Until Discontinued, Routine, Previous Med: folic acid (FOLVITE) 1 mg tablet - Orig Sig - Take 1 mg by mouth daily. 0620 (Given - Provider: Kimber Tamayo RN) 0628 (Given - Provider: Tash Connor RN) 0539 (Refused - Provider: HARINDER Aldrich) heparin injection 5,000 Units 5,000 Units, subCUT, EVERY 8 HOURS, First dose on Fri03/18/25 at 2015, Until Discontinued, Routine 0500 (Refused - Provider: Kimber Tamayo RN)1300 (Refused - Provider: Yaneth Burch RN)2127 (Refused - Provider: Tash Connor RN) 0513 (Refused - Provider: Tash Connor RN)1300 (Refused - Provider: Yaneth Burch, BOUCHRA)2137 (Refused - Provider: HARINDER Aldrich) 0539 (Refused - Provider: HARINDER Aldrich)1200 (Refused - Provider: Zunilda Rodriguez LPN) HYDROmorphone (PF) (DILAUDID) 1 mg/mL syringe 0.5 mg (COMPLETED) 0.5 mg, IV, ONE TIME ONLY, 1 dose, On Fri03/30/25 at 0015, Routine 0024 (Given - Provider: HARINDER Aldrich) naloxone (NARCAN) 0.4 mg/mL injection 0.1-0.4 mg 0.1-0.4 mg, IV, SEE ADMIN INSTRUCTIONS, Starting on Fri03/18/25 at 2004, Until Fri03/30/25 at 1529, Routine oxyCODONE-acetaminophe n (PERCOCET) 10-325 mg per tablet 2 Tablet (CANCELED) 2 Tablet, Oral, EVERY 8 HOURS, First dose on 03/19/25 at 1100, Until Discontinued, Routine 0313 (Given - Provider: Kimber Tamayo RN)1113 (Given - Provider: Annabella Morrison RN) oxyCODONE-acetaminophe n (PERCOCET) 10-325 mg per tablet 3 Tablet 3 Tablet, Oral, EVERY 8 HOURS, First dose (after last modification) on 03/28/25 at 1900, Until Discontinued, Routine 1859 (Given - Provider: Yaneth Burch RN) 0310 (Given - Provider: Tash Connor RN)1040 (Given - Provider: Yaneth Burch RN)1928 (Given - Provider: Yaneth Burch RN) 0309 (Given - Provider: HARINDER Aldrich)1108 (Given - Provider: Zunilda Rodriguez LPN) potassium CHLORIDE (KLOR-CON) SR tablet 40 mEq 40 mEq, Oral, ONE TIME ONLY, 1 dose, On Fara 03/24/25 at 2000, Routine sodium chloride flush injection 10 mL 10 mL, IV, EVERY 12 HOURS (BlD), First dose on Fri03/18/25 at 2015, Until Discontinued, Routine 0622 (Given - Provider: Kimber Tamayo RN)1800 (Not Given - Provider: Yaneth Burch RN - Reason: Medication already given) 0629 (Given - Provider: Tash Connor RN)1800 (Not Given - Provider: Yaneth Burch RN - Reason: Medication already given) 0539 (Not Given - Provider: HARINDER Aldrich - Reason: Patient condition - Comment: ivf infusing) Continuous Medication Order 03/28/2025 03/29/2025 03/30/2025 sodium chloride 0.9 % infusion () IV, at 75 mL/hr, CONTINUOUS, Starting on 03/26/25 at 0700, Until 03/30/25 at 0705, Routine 1124 (New Bag - Provider: Annabella Morrison RN) 0030 (Stopped - Provider: Yaneth Burch RN)0035 (New Bag - Provider: Tash Connor RN)0740 (Rate Verify - Provider: Yaneth Burch RN)0919 (Paused - Provider: Yaneth Burch RN)0922 (Restarted - Provider: Yaneth Burch RN)1107 (Rate Verify - Provider: Yaneth Burch RN)1414 (New Bag - Provider: Yaneth Burch RN) 0705 (Stopped - Provider: HARINDER Aldrich - Comment: [Order ends at this time. Document the following action when infusion is complete: Stopped]) PRN Medication Order 03/28/2025 03/29/2025 03/30/2025 cyclobenzaprine (FLEXERIL) tablet 5 mg 5 mg, Oral, THREE TIMES DAILY PRN, Starting on Fara 03/24/25 at 1106, Until Fri03/30/25 at 1529, Discomfort, Pain, Routine diphenhydrAMINE (BENADRYL) tablet 50 mg 50 mg, Oral, EVERY 6 HOURS PRN, Starting on 03/19/25 at 0952, Until Fri03/30/25 at 1529, Allergies, Routine HYDROmorphone (DILAUDID) 2 mg/mL injection 1.5 mg (CANCELED) 1.5 mg, IV, EVERY 3 HOURS PRN, Starting on 03/27/25 at 2200, Until Fri03/28/25 at 1200, Pain, Routine 0036 (Given - Provider: Kimber Tamayo RN)0314 (Given - Provider: Kimber Tamayo RN)0618 (Given - Provider: Kimber Tamayo RN)0912 (Given - Provider: Yaneth Burch RN) HYDROmorphone (DILAUDID) 2 mg/mL injection 1.5 mg (COMPLETED) 1.5 mg, IV, EVERY 3 HOURS PRN, 1 dose, Starting on Fri03/28/25 at 1159, Until Fri03/28/25 at 1218, Pain, Routine 1218 (Given - Provider: Yaneth Burch, BOUCHRA) HYDROmorphone (PF) (DILAUDID) 1 mg/mL syringe 1 mg () 1 mg, IV, EVERY 3 HOURS PRN, Starting on Fri03/28/25 at 1400, Until 11/4/25 at 2359, Pain, Severe, Routine 1507 (Given - Provider: Yaneth Burch RN)1814 (Given - Provider: Yaneth Burch RN)2127 (Given - Provider: Tash Connor RN) 0030 (Given - Provider: Tash Connor RN)0314 (Given - Provider: Tash Connor RN - Comment: per physician ok to give at same time as percocet)0629 (Given - Provider: Tash Connor RN)0918 (Given - Provider: Yaneth Burch RN)1230 (Given - Provider: Yaneth Burch RN)1541 (Given - Provider: Yaneth Burch RN)1836 (Given - Provider: Yaneth Burch RN)2137 (Given - Provider: HARINDER Aldrich) ondansetron (ZOFRAN ODT) tablet 4 mg 4 mg, Oral, EVERY 6 HOURS PRN, Starting on Fri03/18/25 at 2005, Until Fri03/30/25 at 1529, Nausea/Emesis, Routine documented in this encounter Additional Health Concerns Infection Onset Date Last Indicated Resolved Time R/O Respiratory 03/25/2025 03/25/2025 03/26/2025 1 0:00 AM CDT R/O GI Pathogen 03/26/2025 03/26/2025 03/27/2025 6 :34 AM DOCUMENT REVIEW SPECIALIST R/O C. diff 03/27/2025 03/27/2025 03/28/2025 11:3 0 AM DOCUMENT REVIEW SPECIALIST Assessment Noted Time PHQ-9 Depression Total Score: 1 12/10/19 25 8:00 PM CDT documented as of this encounter
[2025-03-31 05:47] VITALS: BP 132/91; PULSE 92; RESP 18; TEMP 36.7; O2SAT 100
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
--- NOTE | 2025-03-31 06:03 | PC.NURSE ---
Pt hit his call light stating he would like to leave. Pt was informed by MD Hagen that he is free to go. Pt states he is eloping.
--- NOTE | 2025-03-31 06:44 | PC.NURSE ---
Pt called out on his call light again stating he is wanting to leave. Pt was informed by this RN and MD hagen that he is free to go and does not need to sign any AMA papers. Pt was brought a wheelchair to help exit ED. Pt states he needs us to call us a ride. Pt is A&Ox4 and ambulatory to pt bed. Pt was given the phone number to call a cab. astrophysics professor notified and states pt can call from ED waiting room. RN informed pt he can call from waiting room and pt states I heard you the first time. Pt still sitting in room #3 at this time on the phone with his mom. Pt is complaining on the phone they didn't even put an IV in me. MD Hagen verbally told pt that he can work him up for sickle cell crisis but pt denied work up due to MD telling him he wont be giving him Dilaudid due to pt drug seeking behaviors.
--- NOTE | 2025-03-31 06:52 | PC.NURSE ---
Pt exited ED with steady gait. Pt eloped.
--- OUTSIDE RECORDS SUMMARY | 2025-03-31 07:57 | XMS_ITS | Encounter Summary ---
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 Interpreted By: Jaun Patterson, 03/31/2025 9:32 AM us Bhavesh Constantino PA-C GENERAL IMAGING Final Resul t * (ABNORMAL) RETICULOCYTE CT, AUTO (03/31/2025 8:11 AM FUNERAL PRE ARRANGEMENT COUNSELOR) RETICULOCYTE COUNT 6.0(H) 0.8 - 2.1 % 03/31/2025 8:39 AM FUNERAL PRE ARRANGEMENT COUNSELOR [facility] ABSOLUTE RETICULOCYTE 0.17(H) 0.03 - 0.11 x10'6/uL 03/31/2025 8:[address] [facility] IMMATURE RETIC FRACTION 35.0(H) 2.3 - 13.4 % 03/31/2025 8:[address] [facility] RETIC HGB 32.4 28.0 - 35.0 PG 03/31/2025 8:[address] [facility] 03/31/2025 8:11 AM FUNERAL PRE ARRANGEMENT COUNSELOR us Bhavesh Constantino PA-C LABORATORY Final Resul t [facility] [address] [place] [address], [place] [phone] * (ABNORMAL) BASIC METABOLIC PANEL (03/31/2025 8:11 AM FUNERAL PRE ARRANGEMENT COUNSELOR) GLUCOSE 96 70 - 99 MG/DL 03/31/2025 8:[address] [facility] BUN 5(L) 7 - 18 MG/DL 03/31/2025 8:[address] [facility] CREATININE S/P/B 0.66(L) 0.7 - 1.3 MG/DL 03/31/2025 8:[address] [facility] SODIUM S/P/B 140 136 - 145 MMOL/L 03/31/2025 8:[address] [facility] POTASSIUM S/P/B 3.2(L) 3.5 - 5.1 MMOL/L 03/31/2025 8:[address] [facility] CHLORIDE S/P/B 109 97 - 115 MMOL/L 03/31/2025 8:[address] [facility] CO2 27.4 21 - 32 MMOL/L 03/31/2025 8:[address] [facility] CALCIUM S/P/B 8.5 8.5 - 10.1 MG/DL 03/31/2025 8:[address] [facility] ANION GAP 3.6 2 - 10 MMOL/L 03/31/2025 8:[address] [facility] BUN CREATININE RATIO 7.5 6 - 26 03/31/2025 8:[address] [facility] GFR ESTIMATE >90 >90 ML/MIN/1.7 3 M2 03/31/2025 8:[address] [facility] Comment: NOTE: eGFR is not calculated for patients <18 years of age or gender unknown. This is an estimated GFR calculation using the new CKD EPI creatinine equation without race and so does not require a correction factor for race. This estimated GFR should not be used for calculating drug doses. 03/31/2025 8:11 AM FUNERAL PRE ARRANGEMENT COUNSELOR us Bhavesh Constantino PA-C LABORATORY Final Resul t [facility] [address] [place] [address], [place] [phone] * (ABNORMAL) CBC W/DIFF AUTOMATED (03/31/2025 8:11 AM FUNERAL PRE ARRANGEMENT COUNSELOR) WBC 11.10(H) 4.5 - 11.0 x10'3/uL 03/31/2025 8:[address] [facility] RBC 2.76(L) 4.70 - 6.10 x10'6/uL 03/31/2025 8:[address] [facility] HGB 8.6(L) 14.0 - 18.0 G/DL 03/31/2025 8:[address] [facility] HCT 24.3(L) 43.0 - 54.0 % 03/31/2025 8:[address] [facility] MCV 88.0 80.0 - 94.0 FL 03/31/2025 8:[address] [facility] MCH 31.2(H) 27.0 - 31.0 PG 03/31/2025 8:[address] [facility] MCHC 35.4 32.0 - 36.0 G/DL 03/31/2025 8:[address] [facility] RDW 19.6(H) 11.5 - 14.5 % 03/31/2025 8:[address] [facility] PLT 316 130 - 400 x10'3/uL 03/31/2025 8:[address] [facility] MPV 11.1 9.3 - 12.2 FL 03/31/2025 8:[address] [facility] DIFFERENTIAL TYPE AUTOMATED DIFFERENTIAL 03/31/2025 9:[address] [facility] NEUTROPHILS % 57.9 % 03/31/2025 9:[address] [facility] LYMPHOCYTES % 29.8 % 03/31/2025 9:[address] [facility] MONOCYTES % 8.9 % 03/31/2025 9:[address] [facility] EOSINOPHILS 2.4 % 03/31/2025 9:[address] [facility] BASOPHILS 0.7 % 03/31/2025 9:[address] [facility] IMMATURE GRANS % 0.3 % 03/31/20 9:[address] [facility] ABS. NEUTROPHILS 6.42 1.80 - 7.70 x10'3/uL 03/31/2025 9:[address] [facility] ABS. LYMPHOCYTES 3.31 1.00 - 4.80 x10'3/uL 03/31/2025 9:[address] [facility] ABS. MONOCYTES 0.99(H) 0.30 - 0.82 x10'3/uL 03/31/2025 9:[address] [facility] ABS. EOSINOPHILS 0.27 0.04 - 0.54 x10'3/uL 03/31/2025 9:[address] [facility] ABS. BASOPHILS 0.08 0.01 - 0.08 x10'3/uL 03/31/2025 9:[address] [facility] ABS. IMMATURE GRANULOCYTES 0.03 0.00 - 0.49 x10'3/uL 03/31/2025 9:[address] [facility] RBC MORPHOLOGY SLIDE REVIEWED 2024 9:[address] [facility] ANISO 1+ 03/31/2025 9:[address] [facility] HYPOCHROMASIA 1+ 03/31/2025 9:[address] [facility] POLY 1+ 03/31/2025 9:[address] [facility] TARGET CELLS 1+ 03/31/2025 9:38 AM FUNERAL PRE ARRANGEMENT COUNSELOR [facility] SICKLE CELL 1+ 03/31/2025 9:[address] [facility] PLT EST. ADEQUATE 03/31/2025 9:[address] [facility] 03/31/2025 8:11 AM FUNERAL PRE ARRANGEMENT COUNSELOR us Bhavesh Constantino PA-C LABORATORY Final Resul t [facility] [address] [place] [address], documented in this encounter Visit Diagnoses Diagnosis Sickle cell anemia with pain ([facility])- Primary Hb-SS disease with crisis Hypokalemia Hypopotassemia documented in this encounter Administered Medications Inactive Administered Medications - up to 3 most recent administrations Medication Order MAR Action Action Date Dose Rate Site diphenhydrAMINE (BENADRYL) capsule 25 mg 25 mg, Oral, Once, 1 dose, On Fara 03/31/25 at 0845 Given 03/31/2025 8:50 AM FUNERAL PRE ARRANGEMENT COUNSELOR 25 mg HYDROmorphone (DILAUDID) injection 1 mg 1 mg, Intravenous, Once, 1 dose, On Fara 03/31/25 at 0945, Administer slowly over at least 2-3 minutes. Given 03/31/2025 9:49 AM FUNERAL PRE ARRANGEMENT COUNSELOR 1 mg HYDROmorphone (DILAUDID) injection 1 mg 1 mg, Intravenous, Once, 1 dose, On Fara 03/31/25 at 1000, Administer slowly over at least 2-3 minutes. Given 03/31/2025 10:00 AM FUNERAL PRE ARRANGEMENT COUNSELOR 1 mg HYDROmorphone (DILAUDID) injection 2 mg 2 mg, Intravenous, Once, 1 dose, On Fara 03/31/25 at 0845, Administer slowly over at least 2-3 minutes. Given 03/31/2025 8:49 AM FUNERAL PRE ARRANGEMENT COUNSELOR 2 mg ketorolac (TORADOL) injection 30 mg 30 mg, Intravenous, Once, 1 dose, On Fara 03/31/25 at 0845, For IV administration, give over 15 seconds. Given 03/31/2025 8:50 AM FUNERAL PRE ARRANGEMENT COUNSELOR 30 mg lactated ringers bolus infusion 1,000 mL 1,000 mL, Intravenous, Administer over 15 Minutes, Once, 1 dose, On Fara 03/31/25 at 0845 New Bag 03/31/2025 8:51 AM FUNERAL PRE ARRANGEMENT COUNSELOR 1,000 mLs 4000 mL/hr ondansetron (ZOFRAN) injection 4 mg 4 mg, Intravenous, Once, 1 dose, On Fara 03/31/25 at 0845, IV push over 2-5 minutes. Given 03/31/2025 8:50 AM FUNERAL PRE ARRANGEMENT COUNSELOR 4 mg potassium chloride CR (K-TAB) tablet 40 mEq 40 mEq, Oral, Once, 1 dose, On Fara 03/31/25 at 1000, Do not break, chew, or crush. Given 03/31/2025 10:00 AM FUNERAL PRE ARRANGEMENT COUNSELOR 40 mEq documented in this encounter Active and Recently Administered Medications Times are shown in FUNERAL PRE ARRANGEMENT COUNSELOR. Scheduled Medication Order 03/29/2025 03/30/2025 03/31/2025 diphenhydrAMINE (BENADRYL) capsule 25 mg (COMPLETED) 25 mg, Oral, Once, 1 dose, On Fara 03/31/25 at 0845 0850 (Given - Provid er: Lauren Justice RN) diphenhydrAMINE (BENADRYL) capsule 25 mg 25 mg, Oral, Once, 1 dose, On Fara 03/31/25 at 0945 0949 (Hold - Provide r: Lauren Justice RN - Reason: Patient/family declined) HYDROmorphone (DILAUDID) injection 1 mg (COMPLETED) 1 mg, Intravenous, Once, 1 dose, On Fara 03/31/25 at 0945, Administer slowly over at least 2-3 minutes. 0949 (Given - Provid er: Lauren Justice RN) HYDROmorphone (DILAUDID) injection 1 mg (COMPLETED) 1 mg, Intravenous, Once, 1 dose, On Fara 03/31/25 at 1000, Administer slowly over at least 2-3 minutes. 1000 (Given - Provid er: Lauren Justice RN) HYDROmorphone (DILAUDID) injection 2 mg (COMPLETED) 2 mg, Intravenous, Once, 1 dose, On Fara 03/31/25 at 0845, Administer slowly over at least 2-3 minutes. 0849 (Given - Provid er: Lauren Justice RN) ketorolac (TORADOL) injection 30 mg (COMPLETED) 30 mg, Intravenous, Once, 1 dose, On Faar 03/31/25 at 0845, For IV administration, give over 15 seconds. 0850 (Given - Provid er: Lauren Justice RN) lactated ringers bolus infusion 1,000 mL (COMPLETED) 1,000 mL, Intravenous, Administer over 15 Minutes, Once, 1 dose, On Fara 03/31/25 at 0845 0851 (New Bag - Prov ider: Lauren Justice RN)1026 (Infusion Stop Time - Provider: Lauren Justice RN) ondansetron (ZOFRAN) injection 4 mg (COMPLETED) 4 mg, Intravenous, Once, 1 dose, On Fara 03/31/25 at 0845, IV push over 2-5 minutes. 0850 (Given - Provid er: Lauren Justice RN) potassium chloride CR (K-TAB) tablet 40 mEq (COMPLETED) 40 mEq, Oral, Once, 1 dose, On Fara 03/31/25 at 1000, Do not break, chew, or crush. 1000 (Given - Provid er: Lauren Justice RN) documented in this encounter Additional Health Concerns Infection Onset Date Last Indicated Resolved Time COVID-19 Rule Out 03/31/2025 03/31/2025 03/31/2025 9:54 AM FUNERAL PRE ARRANGEMENT COUNSELOR Respiratory Rule Out 03/31/2025 03/31/2025 025 9:54 AM FUNERAL PRE ARRANGEMENT COUNSELOR documented as of this encounter Care Teams Hoop Rolls Operator Relationship Specialty Start Date End Date None, Provider, PCP - General UNKNOWN PHYSICIAN SPECIALTY 09/28/24 Braeden Somers MD [address] [place] [address] Medical Oncologist HEMATOLOGY/ONCOLOGY 12/07/24 6 documented as of this encounter
--- OUTSIDE RECORDS SUMMARY | 2025-03-31 16:14 | XMS_ITS | Encounter Summary ---
Author Organization [facility] Address [address] [place] [address] Care Team Providers Care Certified Energy Manager Name Role Phone Nina Hines APRN-GOVERNMENT RELATIONS MANAGER Primary Care Provider + Given, None Primary Care Provider Laurent Noel MD Primary Care Provider [phone] Reason for Visit * Reason Onset Date Comments MEDICATION REFILL 07/16/2023 Encounter Details Date Type Department Care Team (Late st Contact Info) Description 07/16/2023 Refill [facility] - Internal Medicine [address] , [address] [address] Nina Hines, RESAWYER-GOVERNMENT RELATIONS MANAGER [address] [address] MEDICATION REFILL Social History Tobacco [...] medical care, and heating? Patient declined 06/16/2023 [facility] [place] [facility] Occupat ional Health - Occupational Stress [...] or slept in a fdc (including now)? 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 Male 5:02 AM ELECTRICAL HELPER Gender Identity Not on file Sexual [...] of Assessment Author No 06/16/2023 2:45 PM ELECTRICAL HELPER Redshaw, Radha K, RN * Does [...] Under Investigation 05/15/2024 05/15/2024 05/16/2024 3:26 AM ELECTRICAL HELPER COVID-19 Under Investigation 06/30/2024 06/30/2024 06/30/2024 7:12 PM ELECTRICAL HELPER COVID-19 Under Investigation 03/06/2025 03/07/2025 03/07/2025 2:28 AM CDT documented as of this encounter Care Teams Certified Energy Manager Relationship Specialty Start Date End Date Nina Hines, RESAWYER-GOVERNMENT RELATIONS MANAGER [address] [phone] PCP - General Nurse Practitioner 07/16/23 08/26/23 Given, None PCP - General 09/28/23 01/14/24 Laurent Gonzalez MD [address] [place] [address] PCP - General Hematology 01/15/24 documented as of this encounter
--- OUTSIDE RECORDS SUMMARY | 2025-03-31 16:14 | XMS_ITS | Encounter Summary ---
Author Organization [facility] Healthcare Address [address] [place] [address] Care Team Providers Care Manager Willow Name Role Phone Ray Sainz MD Unavailable [phone] Gordo Herrera MD Unavailable [phone] Miscellaneous, Not In File Unavailable Unava ilable Laurent Gonzalez MD Primary Care Provider [phone] Mariam Hedrick Unavailable Unavailable Ning Lowery DNP Unavailable [phone] Ana Duran RN Unavailable [phone] Areli Zuniga Unavailable Unavailable Ning Lowery DNP Unavailable [phone] Tobin Terrell MD Unavailable [phone] Encounter Details Date Type Department Care Team (Late st Contact Info) Description 05/15/2024 Documentation [facility] Main [address] [phone] oFrrest Domínguez, BOUCHRA Social History Tobacco Use Types Packs/Day Years Used Date Smoking Tobacco: Never Smokeless Tobacco: Never Alcohol Use Standard Drinks/Week Comments Not Currently 0 (1 standard drink = 0.6 oz pur e alcohol) [facility] Utilities Answer Date Recorded In [...] place to sleep or slept in a prison (including now)? No 09/01/2023 Housing Stability Vital [...] were you homeless or living in a prison (including now)? No 05/13/2024 Personal Safety Answer Date Recorded Have you ever been in or are you currently in a harmful physical or emotional relationship or is someone making you feel afraid or unsafe? Denies 05/11/2024 Sex and Gender Information Value Date Recorded Sex Assigned at Not on file Legal Sex Male 10:50 AM LAB HEAD Gender Identity Male 12/06/2024 9:44 PM CDT Sexual Orientation Straight 12/06/2024 9: 44 PM CDT documented as of this encounter Functional Status documented as of this encounter Plan of Treatment Not on file documented as of this encounter Visit Diagnoses Not on filedocumented in this encounter Additional Health Concerns Infection Onset Date Last Indicated Resolved Time COVID: Suspected 05/29/2024 05/29/2024 05/29/2024 10:06 PM LAB HEAD COVID: Suspected 07/24/2024 07/24/2024 07/24/2024 5:44 AM LAB HEAD Norovirus suspected 07/24/2024 07/24/2024 07/30/19 3:05 AM LAB HEAD C. difficile suspected 07/24/2024 07/24/202407/29 3:05 AM LAB HEAD COVID: Suspected 08/13/2024 08/13/2024 08/13/2024 1:30 PM CDT COVID: Suspected 11/01/2024 11/01/2024 11/01/2024 2:39 PM CDT Ring Surveillance: C. auris 11/08/2024 11/08/202411/15/2024 7:26 PM CDT COVID: Suspected 12/23/2024 12/23/2024 12/23/2024 5:12 PM CDT COVID: Suspected 02/15/2025 02/15/2025 02/15/2025 2:26 PM CDT documented as of this encounter Care Teams Manager Willow Relationship Specialty Start Date End Date Laurent Gonzalez MD [address] [place] [address] PCP - General Hematology and Oncology 10/18/23 Ray Sainz MD [address] [facility] [address] [place] [address] 02/10/20 [place] [address] [address] [facility] [address] [place] [address] Consulting Physician Family Medicine 05/05/22 Miscellaneous, Not In File 12/14/22 Mariam Hedrick Outpatient Transportation Solutions Manager 05/31/24 08/15/24 Ning Lowery DNP [address] [address] [facility] [address] [place] [address] Nurse Practitioner Internal Medicine 05/31/24 08/15/24 Ana Duran, RN [address] [facility] [address] [place] [address] SHOP Outpatient Transportation Solutions Manager 07/29/24 08/02/24 Areli Zuniga Outpatient Transportation Solutions Manager 08/16/24 09/23/24 Ning Lowery DNP [address] [address] [facility] [address] [place] [address] Nurse Practitioner Internal Medicine 08/16/24 09/23/24 [place] [address] [address] Consulting Physician Orthopedic Surgery 08/18/24 documented as of this encounter
--- OUTSIDE RECORDS SUMMARY | 2025-03-31 16:14 | XMS_ITS | Encounter Summary ---
Author Organization [facility] Healthcare Address [address] [place] [address] Care Team Providers Care Bench Chemist Name Role Phone Ray Sainz MD Unavailable [phone] Gordo Herrera MD Unavailable [phone] Miscellaneous, Not In File Unavailable Unava ilable Laurent Gonzalez MD Primary Care Provider [phone] Mariam Hedrick Unavailable Unavailable Ning Lowery DNP Unavailable [phone] Ana Duran RN Unavailable [phone] Areli Zuniga Unavailable Unavailable Ning Lowery DNP Unavailable [phone] Tobin Terrell MD Unavailable [phone] Encounter Details Date Type Department Care Team (Late st Contact Info) Description 08/02/2024 [facility] Sickle Cell CHW Initial Eligibility Review [facility] Sickle Cell Disease Community Health Worker [address] [place] [phone] Divya Wallace Social History Tobacco Use Types Packs/Day Years Used Date Smoking Tobacco: Never Smokeless Tobacco: Never Alcohol Use Standard Drinks/Week Comments Not Currently 0 (1 standard drink = 0.6 oz pur e alcohol) [facility] Utilities Answer Date Recorded In the past 12 months has [employer], gas, oil, or water [employer] threatened to shut off services in your home? No 07/26/2024 Social Connection and Isolation Panel Answer Date Recorded In a typical week, how many times do you talk on the phone with family, friends, or neighbors? Never 07/26/2024 How often do you get together with friends or re latives? Never 07/26/2024 How often do you attend jain or pentecostalism serv ices? Never 07/26/2024 Do you belong to any clubs o r organizations such as jain groups, unions, fraternal or athletic groups, or [...] place to sleep or slept in a chcf (including now)? No 09/01/2023 Housing Stability Vital Sign Answer Samy e Recorded In the last 12 months, was t here a time when you were not able to pay the mortgage or rent on time? No 07/26/2024 In the past 12 months, how m any times have you moved where you were living? 0 07/26/2024 At any time in the past 12 m [facility], were you homeless or living in a chcf (including now)? No 07/26/2024 Personal Safety Answer Date Recorded Have you ever been in or are you currently in a harmful physical or emotional relationship or is someone making you feel afraid or unsafe? Denies 07/23/2024 Sex and Gender Information Value Date Recorded Sex Assigned at Not on file Legal Sex Male 10:50 AM SENIOR COMMISSARY AGENT Gender Identity Male 12/06/2024 9:44 PM CDT [...] documented as of this encounter Care Teams Bench Chemist Relationship Specialty Start Date End Date Laurent Gonzalez MD [address] [place] [address] PCP - General Hematology and Oncology 10/18/23 Ray Sainz MD [address] [facility] [address] [place] [address] 02/10/20 [place] [address] [facility] [address] [place] [address] Consulting Physician Family Medicine 05/05/22 Miscellaneous, Not In File 12/14/22 Mariam Hedrick Outpatient Ethnographer 05/31/24 08/15/24 Ning Lowery DNP [address] [facility] [address] [place] [address] Nurse Practitioner Internal Medicine 05/31/24 08/15/24 Ana Duran, RN [address] [facility] [address] [place] [address] SHOP Outpatient Ethnographer 07/29/24 08/02/24 Areli Zuniga Outpatient Ethnographer 08/16/24 09/23/24 Ning Lowery DNP [address] [facility] [address] [place] [address] Nurse Practitioner Internal Medicine 08/16/24 09/23/24 [place] [address] [facility] [address] [place] [address] Consulting Physician Orthopedic Surgery 08/18/24 documented as of this encounter
--- OUTSIDE RECORDS SUMMARY | 2025-03-31 16:14 | XMS_ITS | Clinical Summary ---
Author Organization [facility] Address [address] [place] [address] Care Team Providers Care Lithographer Apprentice Name Role Phone Laurent Gonzalez MD Primary Care Provider [phone] Source Comments [facility],non-owned Affiliates and Associated Physician Practices is amultiple site organization consisting of ambulatory clinics and hospital sitesin [place], [place], [place] and [place]. This disclosure is being madepursuant to the Care Everywhere program and may not contain all information available regarding this patient. Last updated 18.[facility] Allergies Active Allergy Reactions Criticality Noted Date Comments Cefepime Urticaria Medium 05/15/2024 Fentanyl Other,Palpitations Low 04/25/2022 Numbness lower lip and teeth Numbness lower lip and teeth Ketamine Other 03/06/2025 Hallucinations Morphine Rash,Urticaria,Itc nohelia High 11/26/2015 Pt reports [...] by mouth once daily 30 tablet 1 Active oxyCODONE-aceta minophen (Percocet) 10-325 MG tablet Take 3 (three) tablets by mouth every 8 hours as needed for Pain (for 7-10 pain score) Active potassium chloride ER (Klor-Con M) 20 MEQ tablet Take 1 (one) tablet by mouth once daily 30 tablet 4 09/29/19 24 Discontinu ed(No Pharm No AVS) oxyCODONE-aceta minophen (Percocet) 10-325 MG tabletIndicatio ns:Sickle cell pain crisis (HCC) Take 1 (one) tablet by mouth every 6 hours as needed for Pain 10 tablet 5 03/08/20 25 Discontinu ed(List Clean-Up) Active Problems Problem [...] Date Resolved Date Sickle cell pain crisis 03/06/202502/24 Sickle cell pain crisis 01/30/202501/25 Assessment & Plan (02/02/2025 8:14 AM CDT): I agree with plans for folic acid supplementation IV narcotics and aggressive hydration Follow up with outpatient hematology at discharge Encouraged him leukocytosis is overall mild and now normal without any evidence infection consistent with improvement Follow up at [facility] at discharge Please re-consult p.r.n. Sickle cell pain crisis 12/24/202412/24 Sickle cell crisis 08/19/2024 Vaso-occlusive sickle cell crisis 06/30/2024 07/14/2024 Sickle cell pain crisis 05/15/202409/2024 Sickle cell pain crisis 04/06/202403/27 Sickle cell [...] Encounters Date Type Department Care Team Description 03/06/2025 12:53 AM CDT - 03/17/2025 1:30 PM CDT Hospital Encounter [facility] 3E MED/ONC [address] [place] [address] Saeid Renae DO Huggins, Matthew G, MD Kang, Ayesha, MD Subramanian, Veerakesari, MD Moncada Andrade, MD Ronaldo Wood Micahla C, MD Hospitalist Discharge Disposition: Home or Self Care 03/06/2025 Travel 02/16/2025 3:00 AM CDT Home Care Visit [facility] Health at [facility] Health [address] [place] [address], [facility] [address] [place] [phone] Rachel Sofia MD Reiser, Dolores P, RN HOME CONNETIONS NON-ADMIT 02/15/2025 Home Care Visit [facility] Health at Home Home Health [address] [place] [address], [facility] [address] [place] [phone] Alyson Leonard, RN TELEPHONE ENCOUNTER 01/29/2025 10:31 PM CDT - 02/13/2025 9:55 PM CDT Hospital Encounter [facility] INPATIENT [facility]ARE [address] [place] [phone] Mohamud Palacio MD Ghazal-Albar, Naman, MD Saeed, Salman, MD Syamala, Krishna Chaitanya, MD Chowdhury, MD Samantha Comer Himanshu, MD Family Medicine Discharge Disposition: Home or Self Care 01/29/2025 Travel 12/23/2024 11:02 PM CDT - 12/31/2024 11:06 AM CDT Hospital Encounter [facility] [address] [place] [phone] Mohamud Palacio MD Makhoul, Jamal, MD Grandhi, Sandhya, MD Inampudi, Umesh, MD Internal Medicine Discharge Disposition: Home or Self Care from Last 3 Months Immunizations Immunization Administration [...] Given: Yes Alcohol Use Standard Drinks/Week Comments Never 0 (1 standard drink = 0.6 oz pur e alcohol) PRAPARE - Transportation Answer Date Re corded [...] slept in a correction (including now)? No 01/23/2024 Housing Stability Vital Sign Answer Samy e Recorded In the last 12 months, was t here a time when you were not able to pay the mortgage or rent on time? No 02/11/2025 In the past 12 months, how m any times have you moved where you were living? 0 02/11/2025 At any time in the past 12 m [facility], were you homeless or living in a correction (including now)? No 02/11/2025 AUDIT-C Answer Date Recorded Q1: How often do you have a drink containing alcohol? Never 03/06/2025 Q2: How many drinks containi ng alcohol do you have on a typical day when you are drinking? Patient does not drink Frequency of Binge Drinking Not on file 02/23 Overall Financial Resource Strain (CARDIA) Answe r Date Recorded How hard is it for you to pa y for the very basics like food, housing, medical care, and heating? Not hard at all 03/06/2025 [facility] Occupat ional Health - Occupational Stress Questionnaire Answer Date Recorded Do you feel stress - tense, restless, nervous, or anxious, or unable to sleep at night because your mind is troubled all the time - these days? Not at all 03/06/2025 Hunger Vital Sign Answer Date Recorded Within the past 12 months, y ou worried that your food would run out before you got the money to buy more. Never true 03/06/20 25 Within the past 12 months, t he food you bought just didn't last and you didn't have money to get more. Never true 03/06/2025 PRAPARE - Transportation Answer Date Re corded In the past 12 months, has l ack of transportation kept you from medical appointments or from getting medications? No 02/23 In the past 12 months, has l ack of transportation kept you from meetings, work, or from getting things needed for daily living? No 03/06/2025 Housing Stability Vital Sign Answer Samy e Recorded In the last 12 months, was t here a time when you were not able to pay the mortgage or rent on time? No 03/06/2025 Number of Times Moved in the Last Year Not on fi le 03/06/2025 At any time in the past 12 m [facility], were you homeless or living in a correction (including now)? 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 Gender Identity Not on file Sexual Orientation Not on file Last Filed Vital Signs Vital Sign Reading Time Taken Comments Blood Pressure 106/70 03/17/2025 8:09 AM CDT Pulse 73 03/17/2025 8:09 AM CDT Temperature 36.6 C (97.9 F) 03/17/2025 8:09 AM CDT Respiratory Rate 16 03/17/2025 8:09 AM CDT Oxygen Saturation 95% 03/17/2025 8:09 AM CDT Inhaled Oxygen Concentration 21% 04/13/2023 8 :31 PM TAPER AND FLOATER Weight 108.4 kg (239 lb) 03/06/2025 12:49 AM CDT Height 177.8 cm (5' 10) 03/06/2025 12:49 AM CDT Body Mass Index 34.29 03/06/2025 12:49 AM CDT Plan of Treatment Health Maintenance Due Date Last Done Comments Sickle Cell - RBC Minor AG Phenotype 1997 MENINGOCOCCAL GROUPS A/C/Y/W VACCINE (1 - Risk 2-dose series) 1998 MENINGOCOCCAL (Group B) VACC INE SHARED DECISION-MAKING (1 of 4 - Increased Risk) 2006 Sickle Cell - Retinopathy 2006 Sickle Cell - Urine albumin creatinine ratio 2006 HEPATITIS C SCREENING 11/01/2014 HEPATITIS B VACCINE (1 of 3 - 19+ 3-dose series) 11/06/2015 PNEUMOCOCCAL VACCINE (1 of 2 - PCV) 11/06/2015 HPV VACCINE (1 - 3-dose SCDM series) 11/06/2023 DEPRESSION SCREENING 05/26/2024 COVID-19 VACCINE (2 - 2024-2 6 season) 2025 01/23/2022 INFLUENZA VACCINE (#1) 2025 02/20/2011, 2008 Sickle Cell - UA + Micro 05/16/20252 024, 01/19/2024, 06/20/2023, Additional history exists Sickle Cell - Retic Count 7+ years 03/06/2026 03/06/2025, 02/10/2025, 02/02/2025, Additional history exists Sickle Cell - CMP 03/08/2026 03/08/2025, , 03/06/2025, Additional history exists Sickle Cell - CBC 7+ years 03/10/202603/10, 03/08/2025, 03/07/2025, Additional history exists DTAP/TDAP/TD VACCINES (3 - T d or Tdap) 02/09/2030 02/10/2020, 08/25/1998 ZOSTER VACCINE (1 of 2) 2046 HIB VACCINE Completed 03/16/1999 HIV SCREENING Completed 02/16/2019 Sickle Cell - MRA/MRI Brain Perfusion without sedation Completed 05/13/2024 Procedures Procedure Name Priority Date/Time Associated Diagnosis Comments LAB RESULTS ORDER 03/18/2025 5:2 2 PM CDT CBC W/O DIFFERENTIAL Timed 03/10/2025 9:26 PM CDT BASIC METABOLIC PANEL (CALCIUM TOTAL) Timed 03/10/2025 4:24 PM CDT ALKALINE PHOSPHATASE BLOOD Timed 03/09/2025 5:43 PM CDT CBC W/O DIFFERENTIAL Timed 03/08/2025 5:16 PM CDT COMPREHENSIVE METABOLIC PANEL Timed 03/08/2025 2:47 PM CDT HGB HCT PANEL Timed 03/07/2025 6:16 PM CDT CARDIAC EKG ORDER 03/07/2025 5:0 9 PM CDT COMPREHENSIVE METABOLIC PANEL Routine 03/07/2025 7:41 AM CDT CBC W/O DIFFERENTIAL Routine 03/07/2025 7:41 AM CDT SARS-COV-2 (COVID-19) RAPID Routine 03/07/2025 1:35 AM CDT DIFFERENTIAL MANUAL STAT 03/06/2025 4 :54 AM CDT RETIC COUNT STAT 03/06/2025 4:54 AM CDT CBC W AUTO DIFFERENTIAL STAT 03/06/2025 4:54 AM CDT COMPREHENSIVE METABOLIC PANEL STAT 03/06/2025 4:53 AM CDT XR CHEST 1VW PORTABLE STAT 03/06/2025 2:57 AM CDT Chest pain, unspecified type EKG 12-LEAD STAT 03/06/2025 1:04 AM CDT Chest pain, unspecified type CARDIAC RHYTHM STRIP ORDER 02/15/2025 3:57 PM [...] 02 PM CDT CARDIAC EKG ORDER 01/03/2025 6: 40 PM CDT CARDIAC RHYTHM STRIP ORDER 01/03/2025 1:35 PM CDT BASIC METABOLIC PANEL (CALCIUM TOTAL) AM Draw 12/30/2024 9:37 AM CDT URINALYSIS REFLEX TO MICROSCOPIC NO CULTURE STAT 05/16/2024 3:37 AM TAPER AND FLOATER HIV-1 HIV-2 ANTIBODY + HIV P24 AG PANEL STAT 02/16/2019 7:33 PM CDT from Last 3 Months or Most Recently Relevant to Health Maintenance Results * LAB RESULTS ORDER (03/18/2025 5:22 PM CDT) Narrative 03/18/2025 5:22 PM CDT Ordered by an unspecified provider. us Scanned Document LAB - THERAPEUTIC DRUG MONITORI NG ORDERABLES Final Result * (ABNORMAL) CBC W/O DIFFERENTIAL (03/10/2025 9:26 PM CDT) Only the most recent of5 resultswithin the time period is included. WBC 11.2(H) 4.0 - 10.7 x10E9/L 03/10/2025 9:47 PM CDT [facility] RBC Count 2.40(L) 4.30 - 5.80 x10E12/L 03/10/2025 9:47 PM CDT [facility] Hemoglobin 7.7(L) 13.3 - 17.5 g/dL 03/10/2025 9:47 PM CDT [facility] Hematocrit 22.9(L) 38.7 - 51.1 % 03/10/2025 9:47 PM CDT [facility] MCV 95.4 80.0 - 98.0 fL 03/10/2025 9:47 PM CDT [facility] MCH 32.1 26.7 - 33.6 pg 03/10/2025 9:47 PM CDT [facility] MCHC 33.6 31.7 - 36.3 g/dL 03/10/2025 9:47 PM CDT [facility] RDW-CV 23.3(H) 11.3 - 14.8 % 03/10/2025 9:47 PM CDT [facility] Platelet Count 312 150 - 420 x10E9/L 03/10/2025 9:47 PM CDT [facility] MPV 9.7 7.8 - 11.4 fL 03/10/2025 9:47 PM CDT [facility] NRBC 1.4(H) <=0.0 /100 WBC 03/10/2025 9:47 PM CDT [facility] Blood BLOOD SPECIMEN / Unknown Lab Venipuncture / Unknown 03/10/2025 9:26 PM CDT 03/10/2025 9:36 PM CDT us Kathia Lopez MD LAB - HEMATOLO GY ORDERABLES Final Result [facility] [address] [place] [address] * (ABNORMAL) BASIC METABOLIC PANEL (CALCIUM TOTAL) (03/10/2025 4:24 PM CDT) Only the most recent of5 resultswithin the time period is included. Glucose 102(H) 70 - 99 mg/dL 03/10/2025 4:42 PM CDT [facility] Sodium 137 136 - 145 mmol/L 03/10/2025 4:42 PM CDT [facility] Potassium 3.7 3.5 - 5.1 mmol/L 03/10/2025 4:42 PM CDT [facility] Chloride 109(H) 98 - 107 mmol/L 03/10/2025 4:42 PM CDT [facility] CO2 17(L) 22 - 29 mmol/L 03/10/2025 4:42 PM CDT [facility] Calcium 8.5 8.4 - 10.4 mg/dL 03/10/2025 4:42 PM CDT [facility] Anion Gap 11 6 - 16 mmol/L 03/10/2025 4:42 PM CDT [facility] BUN 3(L) 5.3 - 18.7 mg/dL 03/10/2025 4:42 PM CDT [facility] Creatinine 0.50(L) 0.60 - 1.20 mg/dL 03/10/2025 4:42 PM CDT [facility] eGFR by CKD-EPI >90 >=90 mL/min/1.7 3 m2 03/10/2025 4:42 PM CDT [facility] Comment:Estimated Glomerular Filtration Rate (eGFR) calculated using the CKD-EPI Creatinine Equation (2020), per the National Kidney Foundation and [employer] recommendations. Blood BLOOD SPECIMEN / Unknown Lab Venipuncture / Unknown 03/10/2025 4:24 PM CDT 03/10/2025 4:25 PM CDT Kathia Lopez MD LAB - CHEMISTR Y ORDERABLES Final Result Performing Organization Address City/[facility]/ZIP Co de Phone Number [facility] [address] [place], [place] [phone] * (ABNORMAL) ALKALINE PHOSPHATASE BLOOD (03/09/2025 5:43 PM CDT) Alkaline Phosphatase 232(H) 40 - 150 U/L 03/09/2025 6:12 PM CDT [facility] Blood BLOOD SPECIMEN / Unknown Lab Venipuncture / Unknown 03/09/2025 5:43 PM CDT 03/09/2025 5:49 PM CDT Kathia Lopez MD LAB - CHEMISTR Y ORDERABLES Final Result [facility] [address] [place] [phone] * (ABNORMAL) COMPREHENSIVE METABOLIC PANEL (03/08/2025 2:47 PM CDT) Only the most recent of4 resultswithin the time period is included. Glucose 91 70 - 99 mg/dL 03/08/2025 3:49 PM CDT [facility] Sodium 141 136 - 145 mmol/L 03/08/2025 3:49 PM CDT [facility] Potassium 3.7 3.5 - 5.1 mmol/L 03/08/2025 3:49 PM CDT [facility] Chloride 112(H) 98 - 107 mmol/L 03/08/2025 3:49 PM CDT [facility] CO2 22 22 - 29 mmol/L 03/08/2025 3:49 PM CDT [facility] Calcium 8.5 8.4 - 10.4 mg/dL 03/08/2025 3:49 PM CDT [facility] Anion Gap 7 6 - 16 mmol/L 03/08/2025 3:49 PM CDT [facility] BUN <3(L) 5.3 - 18.7 mg/dL 03/08/2025 3:49 PM CDT [facility] Creatinine 0.49(L) 0.60 - 1.20 mg/dL 03/08/2025 3:49 PM CDT [facility] Alkaline Phosphatase 246(H) 40 - 150 U/L 03/08/2025 3:49 PM CDT [facility] ALT 24 6 - 57 U/L 03/08/2025 3:49 PM CDT [facility] AST 45 10 - 48 U/L 03/08/2025 3:49 PM CDT [facility] Protein Total 7.5 6.4 - 8.3 gm/dL 03/08/2025 3:49 PM CDT [facility] Albumin 3.8 3.1 - 4.5 gm/dL 03/08/2025 3:49 PM CDT [facility] Bilirubin Total 4.4(H) 0.2 - 1.2 mg/dL 03/08/2025 3:49 PM T [facility] eGFR by CKD-EPI >90 >=90 mL/min/1.7 3 m2 03/08/2025 3:49 PM T [facility] Comment:Estimated Glomerular Filtration Rate (eGFR) calculated using the CKD-EPI Creatinine Equation (2020), per the National Kidney Foundation and [employer] recommendations. Blood BLOOD SPECIMEN / Unknown Lab Capillary / Unknown 03/08/2025 2:47 PM CDT 03/08/2025 3:18 PM CDT us Kathia Lopez MD LAB - CHEMISTR Y ORDERABLES Final Result Performing Organization Address [facility]/ZIP Co de Phone Number [facility] [address] [place] [phone] * (ABNORMAL) HGB HCT PANEL (03/07/2025 6:16 PM CDT) Only the most recent of3 resultswithin the time period is included. Hemoglobin 7.6(L) 13.3 - 17.5 g/dL 03/07/2025 6:55 PM CDT [facility] Hematocrit 22.2(L) 38.7 - 51.1 % 03/07/2025 6:55 PM CDT [facility] Blood BLOOD SPECIMEN / Unknown Lab Venipuncture / Unknown 03/07/2025 6:16 PM CDT 03/07/2025 6:44 PM CDT us Kathia Lopez MD LAB - HEMATOLO GY ORDERABLES Final Result Performing Organization Address [facility] Co de Phone Number [facility] [address] [place] [phone] * CARDIAC EKG ORDER (03/07/2025 5:09 PM CDT) Only the most recent of4 resultswithin the time period is included. Narrative 03/07/2025 5:09 PM CDT Ordered by an unspecified provider. us Scanned Document CARDIAC SERVICES ORDERABLES Fin al Result * SARS-COV-2 (COVID-19) RAPID (03/07/2025 1:35 AM CDT) Pathologist [facility] COVID-19 PCR Not detected Not detected 03/07/20 2:28 AM CDT [facility] Microbiology SPECIMEN FROM NASOPHARYNGEAL STRUCTURE / Unknown Collection / Unknown 03/07/2025 1:35 AM CDT 03/07/2025 1:52 AM CDT Narrative [facility] - 03/07/2025 2:28 AM CDT The Cepheid Xpert Xpress SARS-COV-2 has been authorized by the Food and Drug Administration (FDA) under an Emergency Use Authorization (EUA). This test has been validated in accordance with the FDA's guidance document Policy for Diagnostic Testing in Laboratories Certified to perform High Complexity Testing under CLIA prior to Emergency Use Authorization for Coronavirus Disease-2019 during the Public Health Emergency issued on July 24, 2019. [facility] independent review of this validation is pending. This test is only authorized for the duration of the time the declaration that circumstances exist justifying the authorization of emergency use of in vitro diagnostic tests for detection of SARS-COV-2 virus and/or diagnosis of COVID-19 infection under 564(b) (1) of the Act. 21 U.S.C. 360bbb-3 (b) (1), unless the authorization is terminated or revoked sooner. Fact Sheets for this EUA assay are available upon request. Aysha Rosenthal MD LAB - MICROBIOLOGY OR DERABLES Final Result Performing Organization Address City/[facility]/ZIP Co de Phone Number [facility] [address] [place] [address] * (ABNORMAL) RETIC COUNT (03/06/2025 4:54 AM CDT) Only the most recent of4 resultswithin the time period is included. Reticulocyte Percent 11.09(H) 0.50 - 2.40 % 03/06/2025 5:22 AM CDT [facility] Reticulocyte Absolute 0.2684(H) 0.0200 - 0.1100 x10E6/uL 03/06/2025 5:22 AM CDT [facility] Ret-HE 32.5 29.0 - 37.9 pg 03/06/2025 5:22 AM CDT [facility] Immature Reticulocyte Fraction 39.6(H) 1.8 - 15.2 % 03/06/2025 5:22 AM CDT [facility] Blood BLOOD SPECIMEN / Unknown Venipuncture / Unknown 03/06/2025 4:54 AM CDT 03/06/2025 4:54 AM CDT Saeid Renae DO LAB - HEMATOLOGY ORDERA BLES Final Result Performing Organization Address City/[facility]/ZIP Co de Phone Number [facility] [address] [place] [address] * (ABNORMAL) DIFFERENTIAL MANUAL (03/06/2025 4:54 AM CDT) Only the most recent of2 resultswithin the time period is included. Neutrophil % 65 41 - 74 % 03/06/2025 5:22 AM CDT [facility] Lymphocyte % 21 17 - 47 % 03/06/2025 5:22 AM CDT [facility] Monocyte % 10 3 - 11 % 03/06/2025 5:22 AM CDT [facility] Eosinophil % 3 0 - 7 % 03/06/2025 5:22 AM CDT [facility] Basophil % 1 0 - 2 % 03/06/2025 5:22 AM CDT [facility] Neutrophil Absolute 9.56(H) 1.60 - 7.50 x10E9/L 03/06/2025 5:22 AM CDT [facility] Lymphocyte Absolute 3.09 1.00 - 4.40 x10E9/L 03/06/2025 5:22 AM CDT [facility] Monocyte Absolute 1.47(H) 0.15 - 1.00 x10E9/L 03/06/2025 5:22 AM CDT [facility] Eosinophil Absolute 0.44 0.00 - 0.60 x10E9/L 03/06/2025 5:22 AM CDT [facility] Basophil Absolute 0.15(H) 0.00 - 0.13 x10E9/L 03/06/2025 5:22 AM CDT [facility] RBC Morphology REVIEWED 03/06/2025 5:22 AM CDT [facility] Macrocytosis MANY(A) (none) 03/06/2025 5:22 AM CDT [facility] Polychromatic Cells MODERATE(A) (none) 03/06/2025 5:22 AM CDT [facility] Stomatocytes MODERATE(A) (none) 03/06/2025 5:22 AM CDT [facility] Sickle Cells MANY(A) (none) 03/06/2025 5:22 AM CDT [facility] Target Cells MODERATE(A) (none) 03/06/2025 5:22 AM CDT [facility] Blood BLOOD SPECIMEN / Unknown Venipuncture / Unknown 03/06/2025 4:54 AM CDT 03/06/2025 4:54 AM CDT Saeid David Marcelinobeatriz [facility] LAB - HEMATOLOGY ORDERA BLES Final Result [facility] [address] [place], [place] [id number] * (ABNORMAL) CBC W AUTO DIFFERENTIAL (03/06/2025 4:54 AM CDT) Only the most recent of5 resultswithin the time period is included. WBC 14.7(H) 4.0 - 10.7 x10E9/L 03/06/2025 5:22 AM CDT [facility] RBC Count 2.42(L) 4.30 - 5.80 x10E12/L 03/06/2025 5:22 AM CDT [facility] Hemoglobin 7.6(L) 13.3 - 17.5 g/dL 03/06/2025 5:22 AM CDT [facility] Hematocrit 21.4(L) 38.7 - 51.1 % 03/06/2025 5:22 AM CDT [facility] MCV 88.4 80.0 - 98.0 fL 03/06/2025 5:22 AM CDT [facility] MCH 31.4 26.7 - 33.6 pg 03/06/2025 5:22 AM CDT [facility] MCHC 35.5 31.7 - 36.3 g/dL 03/06/2025 5:22 AM CDT [facility] RDW-CV 20.6(H) 11.3 - 14.8 % 03/06/2025 5:22 AM CDT [facility] Platelet Count 261 150 - 420 x10E9/L 03/06/2025 5:22 AM CDT [facility] MPV 10.0 7.8 - 11.4 fL 03/06/2025 5:22 AM CDT [facility] NRBC 0.8(H) <=0.0 /100 WBC 03/06/2025 5:22 AM CDT [facility] Blood BLOOD SPECIMEN / Unknown Venipuncture / Unknown 03/06/2025 4:54 AM CDT 03/06/2025 4:54 AM CDT Saeid Marcelinobeatriz DO LAB - HEMATOLOGY ORDERA BLES Final Result [facility] [id number] [place] [address] * XR CHEST 1VW PORTABLE (03/06/2025 2:57 AM CDT) Only the most recent of2 resultswithin the time period is included. Anatomical Region Laterality Modality Chest Radiographic Mireya ging 03/06/2025 8:42 AM CDT Impressions 03/06/2025 8:42 AM CDT IMPRESSION: No appreciable acute abnormality. > Interpreting Provider: Sofia Alvarez MD on 03/06/2025 8:42 AM Narrative 03/06/2025 8:42 AM CDT PROCEDURE: XR CHEST 1VW PORTABLE DATE/TIME OF EXAM: 03/06/2025 2:57 AM CLINICAL INFORMATION: None relevant/not provided if blank. Indication: R07.9: Chest pain, unspecified type Additional History: COMPARISON: 01/29/2025 FINDINGS: No focal consolidation. No pneumothorax. No pleural effusion. Heart size is unchanged and mildly enlarged.. Procedure Note Sofia Alvarez MD - 03/06/2025 PROCEDURE: XR CHEST 1VW PORTABLE DATE/TIME OF EXAM: 03/06/2025 2:57 AM CLINICAL INFORMATION: None relevant/not provided if blank. Indication: R07.9: Chest pain, unspecified type Additional History: COMPARISON: 01/29/2025 FINDINGS: No focal consolidation. No pneumothorax. No pleural effusion. Heart sizeis unchanged and mildly enlarged.. IMPRESSION: No appreciable acute abnormality. > Interpreting Provider: Sofia Alvarez MD on 03/06/2025 8:42 AM Saeid Renae DO DIAGNOSTIC IMAGING ORDE RABLES Final Result * EKG 12-Lead (03/06/2025 1:04 AM CDT) Only the most recent of2 resultswithin the time period is included. Ventricular Rate 101 BPM [facility] MUSE Atrial Rate 101 BPM [facility] P-R Interval 176 ms [facility] QRS Duration ms 76 ms [facility] Q-T Interval ms 358 ms [facility] QTC Calculation (Bezet) 464 ms [facility] MUSE Calculated P [place] 53 degrees [facility] M[facility] Calculated R [place] 18 degrees [facility] MUSE Calculated T [place] 19 degrees [facility] M[facility] Interpretation EKG SINUS TACHYCARDIA OTHERWISE NORMAL ECG WHEN COMPARED WITH ECG OF 15-MAY-2024 14:42, NO SIGNIFICANT CHANGE WAS FOUND Confirmed by MARTITA MAHER, ISS ([id number]) on 03/06/2025 12:16:38 PM [facility] MUSE 03/06/2025 1:04 AM CDT 03/06/2025 12:16 PM CDT Saeid Renae DO ECG ORDERABLES Edited Result - Final [facility] MUSE * CARDIAC RHYTHM STRIP ORDER (02/15/2025 3:57 PM CDT) Only the most recent of2 resultswithin the time period is included. Narrative 02/15/2025 3:57 PM CDT Ordered by an unspecified provider. us Scanned Document CARDIAC SERVICES ORDERABLES Rashaun missy Result - Final * (ABNORMAL) RENAL FUNCTION PANEL (02/10/2025 4:10 PM CDT) Only the most recent of2 resultswithin the time period is included. Pathologist [facility] Glucose 108(H) 70 - 99 mg/dL 02/10/2025 4:26 PM CDT [facility] Sodium 139 136 - 145 mmol/L 02/10/2025 4:26 PM CDT [facility] Potassium 3.1(L) 3.5 - 5.1 mmol/L 02/10/2025 4:26 PM CDT [facility] Chloride 105 98 - 107 mmol/L 02/10/2025 4:26 PM CDT [facility] CO2 25 22 - 29 mmol/L 02/10/2025 4:26 PM CDT [facility] Calcium 8.4 8.4 - 10.4 mg/dL 02/10/2025 4:26 PM CDT [facility] Anion Gap 9 6 - 16 mmol/L 02/10/2025 4:26 PM T [facility] BUN <3(L) 5.3 - 18.7 mg/dL 02/10/2025 4:26 PM T [facility] Creatinine 0.57(L) 0.72 - 1.25 mg/dL 02/10/2025 4:26 PM CDT [facility] Albumin 3.6 3.1 - 4.5 gm/dL 02/10/2025 4:26 PM T -[facility] Phosphorus 3.0 2.5 - 4.5 mg/dL 02/10/2025 4:26 PM T [facility] eGFR by CKD-EPI >90 >=90 mL/min/1.7 3 m2 02/10/2025 4:26 PM T [facility] Comment:Estimated Glomerular Filtration Rate (eGFR) calculated using the CKD-EPI Creatinine Equation (2020), per the National Kid[employer] and [employer] recommendations. Blood BLOOD SPECIMEN / Unknown Lab Venipuncture / Unknown 02/10/2025 4:10 PM CDT 02/10/2025 4:13 PM CDT Thomas Paz MD LAB - CHEMISTRY ORDERABLES Fi nal Result [facility] [address] [place] [address] * (ABNORMAL) LDH BLOOD (02/07/2025 9:58 AM CDT) Only the most recent of4 resultswithin the time period is included. LDH 418(H) 125 - 220 U/L 02/07/2025 10:28 AM CDT [facility] Blood BLOOD SPECIMEN / Unknown Lab Venipuncture / Unknown 02/07/2025 9:58 AM CDT 02/07/2025 10:15 AM CDT Amandeep Sheehan MD LAB - CHEMISTRY ORD ERABLES Final Result Performing Organization Address City/[facility]/ZIP Co de Phone Number [facility] [address] [place] [phone] * (ABNORMAL) CK BLOOD (02/02/2025 1:21 AM CDT) Pathologist [facility] CK 29(L) 30 - 200 U/L 02/02/2025 1:41 AM CDT [facility] Blood BLOOD SPECIMEN / Unknown Lab Venipuncture / Unknown 02/02/2025 1:21 AM CDT 02/02/2025 1:25 AM CDT Rachel Sofia MD LAB - CHEMISTRY ORDERABLES Final Result Performing Organization Address [facility] de Phone Number [facility] [address] [place] [phone] * TROPONIN-I HIGH SENSITIVE REFLEX 1HOUR (01/30/2025 3:40 AM CDT) [facility] Troponin I High Sensitive <3 <=35 ng/L 01/30/2025 4:54 AM CDT [facility] Delta Troponin I HS 01/30/2025 4:54 AM CDT [facility] Comment:Delta value intentio tyrell not calculated. Baseline to 1 hour specimen collection interval exceeded. Blood BLOOD SPECIMEN / Unknown Lab Venipuncture / Unknown 01/30/2025 3:40 AM CDT 01/30/2025 4:33 AM CDT Mohamud Palacio MD LAB - CHEMISTRY ORDERABLES Stephanie l Result Performing Organization Address City/[facility]/ZIP Co de Phone Number [facility] [address] [place] [phone] * (ABNORMAL) SLIDE SCAN HEMATOLOGY (01/30/2025 3:40 AM CDT) [facility] RBC Morphology REVIEWED 01/30/2025 5:30 AM CDT [facility] Macrocytosis MANY(A) (none) 01/30/2025 5:30 AM CDT -[facility] Polychromatic Cells MODERATE(A) (none) 01/30/2025 5:30 AM CDT [facility] Schistocytes MODERATE(A) (none) 01/30/2025 5:30 AM CDT -[facility] Sickle Cells MODERATE(A) (none) 01/30/2025 5:30 AM CDT [facility] Blood BLOOD SPECIMEN / Unknown Lab Venipuncture / Unknown 01/30/2025 3:40 AM CDT 01/30/2025 3:43 AM CDT Mohamud Palacio MD LAB - HEMATOLOGY ORDERABLES Fin al Result Performing Organization Address [facility] Co de Phone Number [address] [phone] * TROPONIN-I HIGH SENSITIVE BASELINE + 1HR (01/29/2025 11:28 PM CDT) Troponin I High Sensitive <3 <=35 ng/L 01/29/2025 11:52 PM CDT [facility] Blood BLOOD SPECIMEN / Unknown Venipuncture / Unknown 01/29/2025 11:28 PM CDT 01/29/2025 11:28 PM CDT Mohamud Palacio MD LAB - CHEMISTRY ORDERABLES Stephanie l Result Performing Organization Address [facility]/ZIP Co de Phone Number [address] [phone] * (ABNORMAL) URINALYSIS REFLEX TO MICROSCOPIC NO CULTURE (05/16/2024 3:37 AM [employer] [employer]) Color UA Munira(A) Straw, Yellow 05/16/2024 4:04 AM [facility] [employer] Clarity UA Clear Clear 05/16/2024 4:04 AM [facility] [employer] [facility] [employer] Specific [place] UA 1.012 1.005 - 1.030 05/16/2024 4:04 AM [facility] pH UA 6.0 5.0 - 8.0 pH 05/16/2024 4:04 AM [facility] Protein UA 1+(A) Negative 05/16/2024 4:04 AM [facility] Glucose UA Negative Negative 05/16/2024 4:04 AM [facility] Ketone UA Negative Negative 05/16/2024 4:04 AM [facility] Bilirubin UA Negative Negative 05/16/2024 4:04 AM [facility] Blood UA Negative Negative 05/16/2024 4:04 AM [facility] Nitrite UA Negative Negative 05/16/2024 4:04 AM [facility] Leukocyte Esterase Trace(A) Negative 05/16/2024 4:04 AM [facility] Urobilinogen UA Negative Negative mg/dL 05/16/2024 4:04 AM [facility] RBC UA 0-2 None Seen, 0-2, 3-5 /HPF 05/16/2024 4:04 AM [facility] WBC UA 6-10(A) None Seen, 0-5 /HPF 05/16/2024 4:04 AM [facility] Squamous Epithelial Cells UA 0-2 None Seen, 0-2, 3-5 /HPF 05/16/2024 4:04 AM [facility] Mucus UA 2+ /LPF 05/16/2024 4:04 AM [facility] Hyaline Casts UA 0-2 None Seen, 0-2 /LPF 05/16/2024 4:04 AM [facility] Urine URINE SPECIMEN OBTAINED BY CLEAN CATCH PROCEDURE / Unknown Collection / Unknown 05/16/2024 3:37 AM [facility] [employer] [facility] 05/16/2024 3:48 AM [facility] - 05/16/2024 4:04 AM [employer] us Abena Archer APRN-[employer]ISSIONS INSPECTOR LAB - URINALYSIS ORDERAB LES Final Result [facility] [address] [place] [id number], [facility] [phone] * HIV-1 HIV-2 ANTIBODY + HIV P24 AG PANEL (02/16/2019 7:33 PM CDT) HIV1/2 Ab + P24 Ag Non Reactive Non Reactive 02/16/2019 8:22 PM CDT [facility] Blood BLOOD SPECIMEN / Unknown Venipuncture / Unknown 02/16/2019 7:33 PM CDT 02/16/2019 7:40 PM CDT Narrative [facility] - 02/16/2019 8:22 PM CDT No Laboratory evidence of HIV infection. us Steve Flynn MD LAB - CHEMISTRY ORDERA BLES Final Result [facility] [address] [place] [address] from Last 3 Months or Most Recently Relevant to Health Maintenance Additional Health Concerns Infection Onset Date Last Indicated C Diff Hx 09/29/2023 09/29/2023 Insurance MEDICAID [employer] Advance Directives * Full Code (Latest Code Status on File) Date Activated Date Inactivated Comments 03/06/2025 12:07 PM 03/17/2025 2:36 PM * Full Code Date Activated Date Inactivated Comments 01/30/2025 6:19 AM 02/13/2025 11:06 PM * Full Code Date Activated Date Inactivated Comments 12/24/2024 5:47 AM 12/31/2024 12:06 PM * Full Code Date Activated Date Inactivated Comments 12/24/2024 5:26 AM 12/24/2024 5:47 AM * Full Code Date Activated Date Inactivated Comments 09/08/2024 1:39 AM 09/18/2024 11:40 AM 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
--- OUTSIDE RECORDS SUMMARY | 2025-03-31 16:15 | XMS_ITS | Clinical Summary ---
Author Organization [facility] Address [address] [place] [address] Care Team Providers Care Paramedical Aide Name Role Phone Ray Sainz MD Unavailable [phone] Gordo Herrera MD Unavailable Miscellaneous, Not In File Unavailable Unava ilable Laurent Gonzalez MD Primary Care Provider [phone] Tobin Terrell MD Unavailable [phone] Allergies Active Allergy Reactions Criticality Noted [...] (q 20 min prn wheezing/SOB) 1 each 5 02/25/20 26 Active folic acid (FOLVITE) 1 mg tabletIndicatio ns:To prevent folic acid deficiency sickle cell disease Take 1 tablet (1 mg total) by mouth daily 30 tablet 5 04/25/20 25 Active naloxone (NARCAN) 0.4 mg/mL injection Infuse 1 mL (0.4 mg total) IV every 10 (ten) minutes as needed for opioid reversal or respiratory depression 1 mL Active Active Problems Problem Noted Date Diagnosed [...] Monitor Assessment & Plan (07/24/2024 3:17 AM GEOLOGY PROFESSOR): Repleted by ER Monitor Sickle-cell crisis 05/11/2024 Assessment & Plan (07/24/2024 3:19 AM GEOLOGY PROFESSOR): Patient presenting with pain in the back, [...] - Patient requesting dilaudid pushes instead of RETREAD OPERATOR - Changed to dilaudid 2 mg q3hr [...] initially started for weight gain and possible Colmar's and 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 Consideration [...] plan on dc - Appreciate endocrinology assistance. 8/ pt now refusing prednisone intermittently despite education. [...] 05/25/2023 Assessment & Plan (05/27/2023 5:37 PM GEOLOGY PROFESSOR): Prior MD noted him refusing lab draws and all meds except opioids, similar to last admission. Also documented non-compliance with recommended outpatient hematology f/u and methadone dosing. Mouth pain 05/01/2023 Assessment & Plan (05/01/2023 5:35 PM GEOLOGY PROFESSOR): No lesion or signs of infxn seen. He will need to arrange outpatient dental f/u. - viscous lidocaine prn Insomnia 02/07/2023 Assessment & Plan (02/09/2023 2:08 PM CDT): - ramelteon not effective, trial of trazodone on 02/07 Acute on chronic pain 01/30/2023 Assessment & Plan (05/31/2023 1:59 PM GEOLOGY PROFESSOR): P/w complaints of acute on chronic pain. [...] admission would be 48h of IV Dilaudid RETREAD OPERATOR. He demanded that IV pushes of dilaudid be used instead. This request was refused. -IV Dilaudid RETREAD OPERATOR 1mg q15min. Discharge later today. -Scheduled tylenol [...] Started on bowel regimen. - Continue dilaudid RETREAD OPERATOR 2mg q20 min. Weaned dPCA 2mg to [...] dizziness. He was initially established with [facility], saw Dr. Gonzalez once since his transition to adult care then was following intermittently at [facility] given proximity to his place. There was concern by his field administrative assistant Dr. Bryon marquis: opioid use disorder, having [...] conflict and refused to continue care at [facility]. -He has been hospitalized near continuously for the last 2 months. -Hematology and pain team consulted, discussed pain management w/ them -Pain regimen: on 12/21- continue scheduled Tylenol 1 g q.6 hours, switch Oxy 30 mg to q.4 hours instead of p.r.n., added IV toradol 15 g q6hrs and switched his IV dilaudid to RETREAD OPERATOR (0.2 mg q15 mins) to prevent the euphoric effect. RETREAD OPERATOR to 0.5 Q20 on 12/22. Discussed with pt no further uptitrations of RETREAD OPERATOR. Some mild somnolence noted 12/23. Starting lidocaine infusion on 12/24 -Ongoing concerns for pain seeking behavior. Pain should be controlled within few days on the RETREAD OPERATOR or lido gtt then switched to po regimen. Pt agreed to hard deadline of 12/25 for start weaning of the RETREAD OPERATOR and scheduled oxycodone. - 12/25 weaned off RETREAD OPERATOR. Regimen changed to oxycodone Q4+APAP 650 Q4. [...] appointment Assessment & Plan (05/29/2023 3:54 PM GEOLOGY PROFESSOR): Hgb at baseline on admission. No chest pain or shortness of breath to suggest acute chest. Continue folic acid. Per chart review, hydroxyurea was discontinued. Has missed appointments to get crizanlizumab infusion. -He plans to F/U with [facility] later this month Assessment & Plan (05/06/2023 1:09 PM GEOLOGY PROFESSOR): Pt presents with acute on chronic pain [...] taken for days - had started dilaudid RETREAD OPERATOR at outpatient heme recommendation, pt with unrelenting [...] outpatient heme note would not recommend cont RETREAD OPERATOR past 5-6 days, may need pain consult if unable to be weaned for consideration of lidocaine gtt which is not available at [facility] - Hgb has slowly decreased but still stable in low 7's, no indication for transfusion - per heme ok to d/c with on day oxycodone and they will see him in clinic on 05/07 Sickle cell disease with crisis 01/09/2023 Assessment & Plan (10/31/2023 1:47 PM CDT): Images from the original note were not included. HbSS previously followed with Dr. Hernandez in [facility] but due to concerning behaviors including possible opiate diversion and disruptive behaviors, released from clinic. Tentatively has appointment with Dr. Gonzalez from hematology 12/22/2023. Dozens of presentations and admissions to various hospital systems in the interim. - Continue home narcotic regimen (oxycodone) - Home folic acid - RETREAD OPERATOR at 0.5mg IV, lockout q15m, 1h limit 2.0mg; telemetry with pulse ox while on RETREAD OPERATOR. Transitioned to IV pushes instead of RETREAD OPERATOR, 2 mg Q3 hours . - Given prior history of inappropriate refusal to wean and per hematology recommendations previously, would look to wean off RETREAD OPERATOR by day 3-4 as clinically appropriate and recommend to avoid continuing RETREAD OPERATOR beyond 5-6 days with consideration of lidocaine [...] hips/back/long bones/joints including feet. Recently hospitalized at [facility] in [place]. Notes dehydration related to GI losses. Admitted for fluids, pain control. - S/p RETREAD OPERATOR - On 09/01, he is agreeable to transitioning off RETREAD OPERATOR to Dilaudid now at 0.5 mg IV q4h PRN alternating with oxy-APAP 10-325 q4h PRN - Continue on scheduled oxycodone to 15 mg Q4 hours - Increase Gabapentin to 300 mg TID, continue flexeril 10 mg TID and start on amitriptyline 10 mg daily (uptitrate as needed), meloxicam daily. - LR 75 cc/h - Folic acid - Has had concerning behavior in [facility] sickle cell clinic previously, no longer will be seeing his prior field administrative assistant Dr. Hernandez - Hematology consulted: He has [...] Reviewed PDMP: On 08/22 on discharge from [facility] by Dr. Shannon Russell received oxycodone 10 mg #30 tablets and Percocet 10-325 mg #90 tablets. 09/11/23- Hb 6.6, Ordered 1PRBC Assessment & Plan (01/16/2023 4:40 PM CDT): Keep field administrative assistant apt on 01/29/23. Emergency room today for Sickle Cell Crisis pain relief. Chronic pain syndrome 12/25/2022 Lightheadedness 12/19/2022 Asthma 12/11/2022 Hypokalemia 12/11/2022 Rectal bleeding 12/11/2022 Vasoocclusive sickle cell crisis 09/01/2022 Assessment & Plan (09/04/2022 1:46 PM CDT): Treating for presumed acute pain crisis Between hematologists, with ongoing plan to establish care in [place], [place] (soonest appointment in October but patient [...] bridge script until patient establishes with new field administrative assistant next week Assessment & Plan (09/01/2022 10:39 AM CDT): possible pain crises vs functional. Fired from prior field administrative assistant due to pain seeking behaviors -percocet 10 [...] imodium, bentyl - Seen by gastrotenerologist at [facility], recommended outpatient follow up & colonoscopy; no need to pursue inpatient based on findings/data thus far Assessment & Plan (09/02/2022 3:18 PM CDT): C diff negative, stool cultures negative Assessment & Plan (09/01/2022 10:39 AM CDT): Pending stool culture and cdiff Black stools 05/12/2022 Dysuria 05/12/2022 Hypokalemia 05/12/2022 Assessment & Plan (07/24/2024 3:17 AM GEOLOGY PROFESSOR): Repleted by ER Monitor Assessment & Plan [...] complication Assessment & Plan (04/27/2023 1:33 AM GEOLOGY PROFESSOR): No c/f exacerbation -cont albuterol PRN Assessment [...] Encounters Date Type Department Care Team Description 02/25/2025 Telephone [facility] tvCompass Work [facility] [place] [address] Erica Daniel LCSW 02/25/[address] [facility] Medicine Hematology [address] [place] [phone] Enio Chandra RN 02/16/[address] [facility] Medicine Hematology [address] [place] [phone] Enio Chandra RN Sickle cell disease with crisis (HCC) (Primary Dx) 02/15/2025 10:49 AM CDT - 02/24/2025 12:10 PM CDT Hospital Encounter [place] [address] [place] [address] Forrest Mason MD Mahasneh, Omar Ali Mohammed, MD Mustafa, Saim, DO Okeke, Ijeoma Gloria, MD Vasoocclusive sickle cell crisis (HCC) (Primary Dx); Urine retention; Thrombocytopenia Discharge Disposition: Discharge to home or self care 02/14/2025 3:45 PM CDT Office Visit [facility] Medicine Hematology [address] [place] [phone] 02/14/2025 3:00 PM CDT Lab [facility] - Lab Collection [facility] [address] [place] [address] Sickle cell disease with crisis (HCC) 02/14/2025 2:[address] [facility] Medicine Oncology Lab [facility] [address] [place] [address] 02/14/[address] [facility] Medicine Hematology [address] [place] [address] [address] [place] [address] Antonina High 01/21/2025 Orders Only [facility] Scanning, Provider 01/19/2025 Orders Only [facility] Scanning, Provider 01/18/2025 10:54 PM CDT - 01/19/2025 12:[address] [facility] Emergency Department [address] [place] [address] Abena Diego MD Malingering (Primary Dx); H/O sickle cell disease Discharge Disposition: Discharge to home or self care 01/01/2025 12:47 AM CDT - 01/18/2025 1:24 PM CDT Hospital Encounter [place] [address] [place] [phone] Bill Carrasquillo DO Medavaram, Atul, MD Kruse, [...] How often do you attend chur or samaritan services? Never 12/08/2024 Do you belong to any clubs o r organizations such as bahai groups, unions, fraternal or athletic groups, or [...] time in the past 12 m [facility], were you homeless or living in a retirement (including now)? No 12/08/2024 Social Connection and Isolation Panel Answer Date Recorded In a typical week, how many times do you talk on the phone with family, friends, or neighbors? Patient declined 02/16/2025 How often do you get togethe r with friends or relatives? Patient declined 02/16/2025 How often do you attend bahai or samaritan serv ices? Never 02/16/2025 Do you belong to any clubs o r organizations such as bahai groups, unions, fraternal or athletic groups, or [...] time in the past 12 m [facility], were you homeless or living in a retirement (including now)? No 02/16/2025 [facility] Utilities Answer Date Recorded In the [...] on file Legal Sex Male 10:50 AM GEOLOGY PROFESSOR Gender Identity Male 12/06/2024 9:44 PM CDT Sexual Orientation Straight 12/06/2024 9: 44 PM CDT Last Filed Vital Signs Vital Sign Reading [...] ECG 12-LEAD STAT 12/31/2024 11:51 PM CDT HEPATITIS C ANTIBODY Routine 08/29/2023 [...] was last reviewed 2021. Testing performed by: [address] [address] Blood 02/21/2025 2:14 PM CDT 02/21/2025 2:29 PM CDT Deana HO LAB BLOOD ORDERABLES Final Re sult [facility] [address] [facility] Department [place] [address] * (ABNORMAL) Differential, auto (02/21/2025 2:14 PM CDT) Neutrophil abs 5.30 1.50 - 6.50 K/cumm Comment:Testing performed by : [address] [address] Imm gran abs 0.03 0.00 - 0.10 K/cumm [facility] Comment:Testing performed by : [address] [address] Lymphocyte abs 2.98 0.80 - 3.30 K/cumm [facility] Comment:Testing performed by : [address] [address] Monocyte abs 1.17(H) 0.20 - 0.80 K/cumm [facility] Comment:Testing performed by : [address] [address] Eosinophil abs 0.15 0.00 - 0.50 K/cumm [facility] Comment:Testing performed by : [address] [address] Basophil abs 0.05 0.00 - 0.10 K/cumm [facility] Comment:Testing performed by : [address] [address] Neutrophil pct 54.8 % [facility] Comment: Interpretive Data Percent cell count reference ranges are not reported, since discordance with absolute values may lead to misinterpretation of CBC data. Current Interpretive Data was last revised on 2017. Testing performed by: [address] [address] Imm gran pct 0.3 % [facility] Comment: Interpretive Data Percent cell count reference ranges are not reported, since discordance with absolute values may lead to misinterpretation of CBC data. Current Interpretive Data was last revised on 2017. Testing performed by: [address] [address] Lymphocyte pct 30.8 % [facility] Comment: Interpretive Data Percent cell count reference ranges are not reported, since discordance with absolute values may lead to misinterpretation of CBC data. Current Interpretive Data was last revised on 2017. Testing performed by: [address] [address] Monocyte pct 12.1 % [facility] Comment: Interpretive Data Percent cell count reference ranges are not reported, since discordance with absolute values may lead to misinterpretation of CBC data. Current Interpretive Data was last revised on 2017. Testing performed by: [address] [address] Eosinophil pct 1.5 % [facility] Comment: Interpretive Data Percent cell count reference ranges are not reported, since discordance with absolute values may lead to misinterpretation of CBC data. Current Interpretive Data was last revised on 2017. Testing performed by: [address] [address] Basophil pct 0.5 % [facility] Comment: Interpretive Data Percent cell count reference ranges are not reported, since discordance with absolute values may lead to misinterpretation of CBC data. Current Interpretive Data was last revised on 2017. Testing performed by: [address] [address] Blood 02/21/2025 2:14 PM CDT 02/21/2025 2:29 PM CDT us Deana HO LAB BLOOD ORDERABLES Final Re sult [facility] [address] [facility] Department of Laboratories [place], [place] [id number] * (ABNORMAL) CBC with auto differential (02/21/2025 2:14 PM CDT) [facility] WBC 9.68 3.80 - 9.90 K/cumm Comment:Testing performed by : [address] [address] Hgb 8.5(L) 13.0 - 17.5 g/dL [facility] Comment:Testing performed by : [address] [address] Hct 24.1(L) 38.9 - 50.3 % [facility] Comment:Testing performed by : [address], [address] Plt 349 150 - 400 K/cumm [facility] Comment:Testing performed by : [address] [address] MPV 10.1 9.1 - 12.3 fL [facility] Comment:Testing performed by : [address], [address] RBC 2.65(L) 4.30 - 5.80 M/cumm [facility] Comment:Testing performed by : [address] [address] MCV 90.9 81.3 - 96.4 fL [facility] Comment:Testing performed by : [address] [address] MCH 32.1 27.1 - 33.3 pg [facility] Comment:Testing performed by : [address], [address] MCHC 35.3 32.3 - 35.7 g/dL [facility] Comment:Testing performed by : [address], [address] RDW CV 21.8(H) 11.1 - 14.9 % [facility] Comment:Testing performed by : [address] [address] RDW SD 72.1(H) 35.7 - 48.1 fL [facility] Comment:Testing performed by : [address], [address] NRBC abs 0.15(H) 0.00 - 0.01 K/cumm [facility] Comment:Testing performed by : [address] [address] Blood 02/21/2025 2:14 PM CDT 02/21/2025 2:29 PM CDT Deana Crandall PA LAB BLOOD ORDERABLES Final Re sult Performing Organization Address [facility] Co de Phone Number [place] [phone] [facility] [place] [address] * (ABNORMAL) Reticulocyte Count (02/21/2025 2:14 PM CDT) Pathologist [facility] [employer], absolute 369(H) 20 - 87 K/cumm Comment:Testing performed by : [address] [address] Retics 13.9(H) 0.4 - 2.9 % [facility] Comment:Testing performed by : [address] [address] Reticulocyte Hgb 31.6 30.5 - 38.0 pg [facility] Comment:Testing performed by : [address] [address] Blood 02/21/2025 2:14 PM CDT 02/21/2025 2:29 PM CDT Kassy George BIOLOGY INTERN LAB BLOOD ORDERABLES Final Re sult Performing Organization Address [facility] de Phone Number [place] [id number] [facility] [employer] [place] [address] * (ABNORMAL) Lactate dehydrogenase (LD) (02/21/2025 2:14 PM CDT) [facility] Lactate dehydrogenase (LDH) 407(H) 100 - 250 Units/L Comment:Testing performed by : [address] [address] Blood 02/21/2025 2:14 PM CDT 02/21/2025 2:29 PM CDT Ezequiel Carrizales MD LAB BLOOD ORDERABL ES Final Result [facility] [address] [facility] Department [place] [address] * (ABNORMAL) Comprehensive metabolic panel (02/21/2025 2:14 PM CDT) Sodium 137 135 - 145 mmol/L Comment:Testing performed by : [address] [address] Potassium, pl 3.3 3.3 - 4.9 mmol/L [facility] Comment:Testing performed by : [address] [address] Chloride 102 97 - 110 mmol/L [facility] Comment:Testing performed by : [address] [address] CO2 24 22 - 32 mmol/L [facility] Comment:Testing performed by : [address] [address] Anion gap 11 2 - 15 mmol/L [facility] Comment:Testing performed by : [address] [address] BUN 3(L) 6 - 25 mg/dL [facility] Comment:Testing performed by : [address] [address] Creatinine 0.40(L) 0.80 - 1.30 mg/dL [facility] Comment:Testing performed by : [address] [address] Glucose 94 70 - 199 mg/dL [facility] [...] was last revised 2022. Testing performed by: [address] [address] Calcium 8.7 8.5 - 10.3 mg/dL [facility] Comment:Testing performed by : [address] [address] Bilirubin, total 4.4(H) 0.1 - 1.2 mg/dL [facility] Comment:Testing performed by : [address] [address] Protein, pl 7.5 6.5 - 8.5 g/dL [facility] Comment:Testing performed by : [address] [address] Albumin 4.1 3.5 - 5.0 g/dL [facility] Comment:Testing performed by : [address] [address] Alk phos 276(H) 40 - 130 Units/L [facility] Comment:Testing performed by : [address] [address] ALT 26 7 - 55 Units/L [facility] Comment:Testing performed by : [address] [address] AST 36 10 - 50 Units/L [facility] Comment:Testing performed by : [address] [address] Blood 02/21/2025 2:14 PM CDT 02/21/2025 2:29 PM CDT us Deana HO LAB BLOOD ORDERABLES Final Re sult [facility] [address] [facility] Department [place] [address] * eGFR (02/20/2025 6:47 PM [...] was last reviewed 2021. Testing performed by: [address] [address] Blood 02/20/2025 6:47 PM CDT 02/20/2025 6:56 PM CDT us Deana HO LAB BLOOD ORDERABLES Final Re sult [facility] [address] [place] [address] * (ABNORMAL) Lactate dehydrogenase (LD) (02/20/2025 6:47 PM CDT) Lactate dehydrogenase (LDH) 401(H) 100 - 250 Units/L Comment:Testing performed by : [address] [address] Blood 02/20/2025 6:47 PM CDT 02/20/2025 6:56 PM CDT us Ezequiel Carrizales MD LAB BLOOD ORDERABL ES Final Result [facility] [address] [employer] [facility] [employer] [place], [place] [id number] * (ABNORMAL) Comprehensive metabolic panel (02/20/2025 6:47 PM CDT) Sodium 139 135 - 145 mmol/L Comment:Testing performed by : [address] [address] Potassium, pl 3.5 3.3 - 4.9 mmol/L [facility] Comment:Testing performed by : [address], [place]., [address] Chloride 103 97 - 110 mmol/L [facility] Comment:Testing performed by : [address], [place]., [address] CO2 25 22 - 32 mmol/L [facility] Comment:Testing performed by : [address], [place]., [address] Anion gap 11 2 - 15 mmol/L [facility] Comment:Testing performed by : [address], [place]., [address] BUN 2(L) 6 - 25 mg/dL [facility] Comment:Testing performed by : [address], [place]., [address] Creatinine 0.44(L) 0.80 - 1.30 mg/dL [facility] Comment:Testing performed by : [address] [address] Glucose 99 70 - 199 mg/dL [facility] Comment: Interpretive Data Fasting glucose [...] was last revised 2022. Testing performed by: [address] [address] Calcium 9.0 8.5 - 10.3 mg/dL [facility] Comment:Testing performed by : [address], [place]., [address] Bilirubin, total 4.5(H) 0.1 - 1.2 mg/dL [facility] Comment:Testing performed by : [facility], [address] [place] [address]., [address] Protein, pl 7.4 6.5 - 8.5 g/dL [facility] Comment:Testing performed by : [address] [address] Albumin 4.2 3.5 - 5.0 g/dL [facility] Comment:Testing performed by : [address] [address] Alk phos 286(H) 40 - 130 Units/L [facility] Comment:Testing performed by : [address], [place]., [address] ALT 32 7 - 55 Units/L [facility] Comment:Testing performed by : [address] [address] AST 49 10 - 50 Units/L [facility] Comment:Testing performed by : [address] [address] Blood 02/20/2025 6:47 PM CDT 02/20/2025 6:56 PM CDT us Deana HO LAB BLOOD ORDERABLES Final Re sult [facility] [address] [facility] Department of Laboratories [place], [place] [id number] * eGFR (02/18/2025 12:20 PM CDT) eGFR [...] was last reviewed 2021. Testing performed by: [address] [address] Blood 02/18/2025 12:2 0 PM CDT 02/18/2025 12:37 PM CDT us Deana HO LAB BLOOD ORDERABLES Final Re sult [facility] [address] [facility] Department [place] [address] * (ABNORMAL) Differential, auto (02/18/2025 12:20 PM CDT) Neutrophil abs 5.20 1.50 - 6.50 K/cumm Comment:Testing performed by : [address] [address] Imm gran abs 0.06 0.00 - 0.10 K/cumm [facility] Comment:Testing performed by : [address] [address] Lymphocyte abs 3.74(H) 0.80 - 3.30 K/cumm [facility] Comment:Testing performed by : [address] [address] Monocyte abs 1.06(H) 0.20 - 0.80 K/cumm [facility] Comment:Testing performed by : [address] [address] Eosinophil abs 0.41 0.00 - 0.50 K/cumm [facility] Comment:Testing performed by : [address] [address] Basophil abs 0.06 0.00 - 0.10 K/cumm [facility] Comment:Testing performed by : [address] [address] Neutrophil pct 49.3 % [facility] Comment: Interpretive Data Percent cell count reference ranges are not reported, since discordance with absolute values may lead to misinterpretation of CBC data. Current Interpretive Data was last revised on 2017. Testing performed by: [address] [address] Imm gran pct 0.6 % [facility] Comment: Interpretive Data Percent cell count reference ranges are not reported, since discordance with absolute values may lead to misinterpretation of CBC data. Current Interpretive Data was last revised on 2017. Testing performed by: [address] [address] Lymphocyte pct 35.5 % [facility] Comment: Interpretive Data Percent cell count reference ranges are not reported, since discordance with absolute values may lead to misinterpretation of CBC data. Current Interpretive Data was last revised on 2017. Testing performed by: [address] [address] Monocyte pct 10.1 % [facility] Comment: Interpretive Data Percent cell count reference ranges are not reported, since discordance with absolute values may lead to misinterpretation of CBC data. Current Interpretive Data was last revised on 2017. Testing performed by: [address] [address] Eosinophil pct 3.9 % [facility] Comment: Interpretive Data Percent cell count reference ranges are not reported, since discordance with absolute values may lead to misinterpretation of CBC data. Current Interpretive Data was last revised on 2017. Testing performed by: [address] [address] Basophil pct 0.6 % [facility] Comment: Interpretive Data Percent cell count reference ranges are not reported, since discordance with absolute values may lead to misinterpretation of CBC data. Current Interpretive Data was last revised on 2017. Testing performed by: [address] [address] Blood 02/18/2025 12:2 0 PM CDT 02/18/2025 12:37 PM CDT Deana HO LAB BLOOD ORDERABLES Final Re sult [facility] [address] [facility] Department [place] [address] * (ABNORMAL) CBC with auto differential (02/18/2025 12:20 PM CDT) [facility] Signature WBC 10.53(H) 3.80 - 9.90 K/cumm Comment:Testing performed by : [address] [address] Hgb 7.9(L) 13.0 - 17.5 g/dL [facility] Comment:Testing performed by : [address] [address] Hct 23.2(L) 38.9 - 50.3 % [facility] Comment:Testing performed by : [address] [address] Plt 297 150 - 400 K/cumm [facility] Comment:Testing performed by : [address] [address] MPV 9.9 9.1 - 12.3 fL [facility] Comment:Testing performed by : [address] [address] RBC 2.50(L) 4.30 - 5.80 M/cumm [facility] Comment:Testing performed by : [address] [address] MCV 92.8 81.3 - 96.4 fL [place] Comment:Testing performed by : [address] [address] MCH 31.6 27.1 - 33.3 pg [facility] Comment:Testing performed by : [address] [address] MCHC 34.1 32.3 - 35.7 g/dL [facility] Comment:Testing performed by : [address] [address] RDW CV 23.6(H) 11.1 - 14.9 % [facility] Comment:Testing performed by : [address] [address] RDW SD 77.2(H) 35.7 - 48.1 fL [facility] Comment:Testing performed by : [address] [address] NRBC abs 0.21(H) 0.00 - 0.01 K/cumm [facility] Comment:Testing performed by : [address] [address] Blood 02/18/2025 12:2 0 PM CDT 02/18/2025 12:37 PM CDT Deana Crandall PA LAB BLOOD ORDERABLES Final Re sult Performing Organization Address [facility] Co de Phone Number [address] [place] [address] * (ABNORMAL) Reticulocyte Count (02/18/2025 12:20 PM CDT) [facility] Retics, absolute 457(H) 20 - 87 K/cumm Comment:Testing performed by : [address] [address] Retics 18.3(H) 0.4 - 2.9 % [facility] Comment:Testing performed by : [address] [address] Reticulocyte Hgb 35.1 30.5 - 38.0 pg [facility] Comment:Testing performed by : [address] [address] Blood 02/18/2025 12:2 0 PM CDT 02/18/2025 12:37 PM CDT us Kassy George BIOLOGY INTERN LAB BLOOD ORDERABLES Final Re sult Performing Organization Address [facility] Co de Phone Number [address] [place] [address] * (ABNORMAL) Lactate dehydrogenase (LD) (02/18/2025 12:20 PM CDT) [facility] Lactate dehydrogenase (LDH) 443(H) 100 - 250 Units/L Comment:Testing performed by : [address] [address] Blood 02/18/2025 12:2 0 PM CDT 02/18/2025 12:37 PM CDT Ezequiel Carrizales MD LAB BLOOD ORDERABL ES Final Result [facility] [address] [facility] Department [place] [address] * (ABNORMAL) Comprehensive metabolic panel (02/18/2025 12:20 PM CDT) Sodium 138 135 - 145 mmol/L Comment:Testing performed by : [address] [address] Potassium, pl 3.3 3.3 - 4.9 mmol/L [facility] Comment:Testing performed by : [address] [address] Chloride 103 97 - 110 mmol/L [facility] Comment:Testing performed by : [address] [address] CO2 24 22 - 32 mmol/L [facility] Comment:Testing performed by : [address] [address] Anion gap 11 2 - 15 mmol/L [facility] Comment:Testing performed by : [address] [address] BUN <2(L) 6 - 25 mg/dL [facility] Comment:Testing performed by : [address] [address] Creatinine 0.40(L) 0.80 - 1.30 mg/dL [facility] Comment:Testing performed by : [address] [address] Glucose 112 70 - 199 mg/dL [facility] [...] was last revised 2022. Testing performed by: [address] [address] Calcium 8.6 8.5 - 10.3 mg/dL [facility] Comment:Testing performed by : [address] [address] Bilirubin, total 4.9(H) 0.1 - 1.2 mg/dL [facility] Comment:Testing performed by : [address] [address] Protein, pl 6.9 6.5 - 8.5 g/dL [facility] Comment:Testing performed by : [address] [address] Albumin 4.0 3.5 - 5.0 g/dL [facility] Comment:Testing performed by : [address] [address] Alk phos 274(H) 40 - 130 Units/L [facility] Comment:Testing performed by : [address] [address] ALT 26 7 - 55 Units/L [facility] Comment:Testing performed by : [address] [address] AST 39 10 - 50 Units/L [facility] Comment:Testing performed by : [address] [address] Blood 02/18/2025 12:2 0 PM CDT 02/18/2025 12:37 PM CDT us Deana HO LAB BLOOD ORDERABLES Final Re sult [facility] [address] [facility] Department [place] [address] * eGFR (02/17/2025 1:04 PM CDT) eGFR [...] was last reviewed 2021. Testing performed by: [address] [address] Blood 02/17/2025 1:04 PM CDT 02/17/2025 1:07 PM CDT us Deana HO LAB BLOOD ORDERABLES Final Re sult [facility] [address] [facility] Department [place] [address] * (ABNORMAL) Differential, auto (02/17/2025 1:04 PM CDT) Pathologist [facility] Neutrophil abs 3.70 1.50 - 6.50 K/cumm Comment:Testing performed by : [address] [address] Imm gran abs 0.08 0.00 - 0.10 K/cumm [facility] Comment:Testing performed by : [address] [address] Lymphocyte abs 3.71(H) 0.80 - 3.30 K/cumm [facility] Comment:Testing performed by : [address] [address] Monocyte abs 1.31(H) 0.20 - 0.80 K/cumm [facility] Comment:Testing performed by : [address] [address] Eosinophil abs 0.43 0.00 - 0.50 K/cumm [facility] Comment:Testing performed by : [address], [place]., [address] Basophil abs 0.07 0.00 - 0.10 K/cumm [facility] Comment:Testing performed by : [address] [address] Neutrophil pct 39.7 % [facility] Comment: Interpretive Data Percent cell count reference ranges are not reported, since discordance with absolute values may lead to misinterpretation of CBC data. Current Interpretive Data was last revised on 2017. Testing performed by: [address] [address] Imm gran pct 0.9 % [facility] Comment: Interpretive Data Percent cell count reference ranges are not reported, since discordance with absolute values may lead to misinterpretation of CBC data. Current Interpretive Data was last revised on 2017. Testing performed by: [address] [address] Lymphocyte pct 39.9 % [facility] Comment: Interpretive Data Percent cell count reference ranges are not reported, since discordance with absolute values may lead to misinterpretation of CBC data. Current Interpretive Data was last revised on 2017. Testing performed by: [address] [address] Monocyte pct 14.1 % [facility] Comment: Interpretive Data Percent cell count reference ranges are not reported, since discordance with absolute values may lead to misinterpretation of CBC data. Current Interpretive Data was last revised on 2017. Testing performed by: [address] [address] Eosinophil pct 4.6 % [facility] Comment: Interpretive Data Percent cell count reference ranges are not reported, since discordance with absolute values may lead to misinterpretation of CBC data. Current Interpretive Data was last revised on 2017. Testing performed by: [address] [address] Basophil pct 0.8 % [facility] Comment: Interpretive Data Percent cell count reference ranges are not reported, since discordance with absolute values may lead to misinterpretation of CBC data. Current Interpretive Data was last revised on 2017. Testing performed by: [address] [address] Blood 02/17/2025 1:04 PM CDT 02/17/2025 1:07 PM CDT us Deana HO LAB BLOOD ORDERABLES Final Re sult Performing Organization Address City/[facility]/ZIP Co de Phone Number [address] [place] [address] * Thyroid Function [place] (02/17/2025 1:04 PM CDT) TSH 3.82 0.30 - 4.20 mcIUnit/mL Comment:Testing performed by : [address] [address] Blood 02/17/2025 1:04 PM CDT 02/17/2025 1:07 PM CDT us Ezequiel Carrizales MD LAB BLOOD ORDERABL ES Final Result Performing Organization Address [facility] Co de Phone Number [address] [place] [address] * (ABNORMAL) CBC with auto differential (02/17/2025 1:04 PM CDT) WBC 9.30 3.80 - 9.90 K/cumm Comment:Testing performed by : [address] [address] Hgb 7.8(L) 13.0 - 17.5 g/dL [facility] Comment:Testing performed by : [address] [address] Hct 22.7(L) 38.9 - 50.3 % [facility] Comment:Testing performed by : [address] [address] Plt 294 150 - 400 K/cumm [facility] Comment:Testing performed by : [address] [address] MPV 10.1 9.1 - 12.3 fL [facility] Comment:Testing performed by : [address] [address] RBC 2.50(L) 4.30 - 5.80 M/cumm [facility] Comment:Testing performed by : [address] [address] MCV 90.8 81.3 - 96.4 fL [facility] Comment:Testing performed by : [address] [address] MCH 31.2 27.1 - 33.3 pg [facility] Comment:Testing performed by : [address] [address] MCHC 34.4 32.3 - 35.7 g/dL [facility] Comment:Testing performed by : [address], [address] RDW CV 23.0(H) 11.1 - 14.9 % [facility] Comment:Testing performed by : [address] [address] RDW SD 73.4(H) 35.7 - 48.1 fL [facility] Comment:Testing performed by : [address], [address] NRBC abs 0.19(H) 0.00 - 0.01 K/cumm [facility] Comment:Testing performed by : [address], [address] Morphologic Screen Results confirmed by manual morphology review. [facility] Comment:Testing performed by : [address] [address] Blood 02/17/2025 1:04 PM CDT 02/17/2025 1:07 PM CDT us Deana Crandall PA LAB BLOOD ORDERABLES Final Re sult Performing Organization Address City/[facility]/ZIP Co de Phone Number [address] [place] [address] * (ABNORMAL) Reticulocyte Count (02/17/2025 1:04 PM CDT) Pathologist [facility] Retics, absolute 473(H) 20 - 87 K/cumm Comment: Retic verified by dilution. Testing performed by: [address] [address] Retics 18.9(H) 0.4 - 2.9 % [facility] Comment: Retic verified by dilution. Testing performed by: [address] [address] Reticulocyte Hgb 31.5 30.5 - 38.0 pg [facility] Comment:Testing performed by : [address] [address] Blood 02/17/2025 1:04 PM CDT 02/17/2025 1:07 PM CDT Kassy George BIOLOGY INTERN LAB BLOOD ORDERABLES Final Re sult Performing Organization Address [facility] Co de Phone Number [address] [place] [address] * (ABNORMAL) Comprehensive metabolic panel (02/17/2025 1:04 PM CDT) [facility] Sodium 139 135 - 145 mmol/L Comment:Testing performed by : [address] [address] Potassium, pl 3.8 3.3 - 4.9 mmol/L [facility] Comment:Testing performed by : [address] [address] Chloride 104 97 - 110 mmol/L [facility] Comment:Testing performed by : [address] [address] CO2 24 22 - 32 mmol/L [facility] Comment:Testing performed by : [address] [address] Anion gap 11 2 - 15 mmol/L [facility] Comment:Testing performed by : [address] [address] BUN <2(L) 6 - 25 mg/dL [facility] Comment:Testing performed by : [address] [address] Creatinine 0.50(L) 0.80 - 1.30 mg/dL [facility] Comment:Testing performed by : [address] [address] Glucose 125 70 - 199 mg/dL [facility] Comment: Interpretive Data Fasting glucose >/= 126 [...] was last revised 2022. Testing performed by: [address] [address] Calcium 8.2(L) 8.5 - 10.3 mg/dL [facility] Comment:Testing performed by : [address] [address] Bilirubin, total 4.7(H) 0.1 - 1.2 mg/dL [facility] Comment:Testing performed by : [address] [address] Protein, pl 7.0 6.5 - 8.5 g/dL [facility] Comment:Testing performed by : [address] [address] Albumin 4.1 3.5 - 5.0 g/dL [facility] Comment:Testing performed by : [address] [address] Alk phos 261(H) 40 - 130 Units/L [facility] Comment:Testing performed by : [address] [address] ALT 31 7 - 55 Units/L [facility] Comment:Testing performed by : [address] [address] AST 52(H) 10 - 50 Units/L [facility] Comment:Testing performed by : [address] [address] Blood 02/17/2025 1:04 PM CDT 02/17/2025 1:07 PM CDT us Deana HO LAB BLOOD ORDERABLES Final Re sult [id number] Department [place] [address] * (ABNORMAL) Differential, auto (02/16/2025 10:46 AM CDT) Neutrophil abs 4.16 1.50 - 6.50 K/cumm Comment:Testing performed by : [address] [address] Imm gran abs 0.05 0.00 - 0.10 K/cumm [facility] Comment:Testing performed by : [address] [address] Lymphocyte abs 4.15(H) 0.80 - 3.30 K/cumm [facility] Comment:Testing performed by : [address] [address] Monocyte abs 1.13(H) 0.20 - 0.80 K/cumm [facility] Comment:Testing performed by : [address] [address] Eosinophil abs 0.41 0.00 - 0.50 K/cumm [facility] Comment:Testing performed by : [address] [address] Basophil abs 0.07 0.00 - 0.10 K/cumm [facility] Comment:Testing performed by : [address] [address] Neutrophil pct 41.8 % [facility] Comment: Interpretive Data Percent cell count reference ranges are not reported, since discordance with absolute values may lead to misinterpretation of CBC data. Current Interpretive Data was last revised on 2017. Testing performed by: [address] [address] Imm gran pct 0.5 % [facility] Comment: Interpretive Data Percent cell count reference ranges are not reported, since discordance with absolute values may lead to misinterpretation of CBC data. Current Interpretive Data was last revised on 2017. Testing performed by: [address] [address] Lymphocyte pct 41.6 % [facility] Comment: Interpretive Data Percent cell count reference ranges are not reported, since discordance with absolute values may lead to misinterpretation of CBC data. Current Interpretive Data was last revised on 2017. Testing performed by: [address] [address] Monocyte pct 11.3 % [facility] Comment: Interpretive Data Percent cell count reference ranges are not reported, since discordance with absolute values may lead to misinterpretation of CBC data. Current Interpretive Data was last revised on 2017. Testing performed by: [address] [address] Eosinophil pct 4.1 % [facility] Comment: Interpretive Data Percent cell count reference ranges are not reported, since discordance with absolute values may lead to misinterpretation of CBC data. Current Interpretive Data was last revised on 2017. Testing performed by: [address] [address] Basophil pct 0.7 % [facility] Comment: Interpretive Data Percent cell count reference ranges are not reported, since discordance with absolute values may lead to misinterpretation of CBC data. Current Interpretive Data was last revised on 2017. Testing performed by: [address] [address] Blood 02/16/2025 10:4 6 AM CDT 02/16/2025 10:56 AM CDT Ezequile Carrizales MD LAB BLOOD ORDERABL ES Final Result [facility] [address] [facility] Department [place] [address] * (ABNORMAL) CBC with auto differential (02/16/2025 10:46 AM CDT) WBC 9.97(H) 3.80 - 9.90 K/cumm Comment:Testing performed by : [address] [address] Hgb 7.8(L) 13.0 - 17.5 g/dL [facility] Comment:Testing performed by : [address] [address] Hct 23.0(L) 38.9 - 50.3 % [facility] Comment:Testing performed by : [address] [address] Plt 280 150 - 400 K/cumm [facility] Comment:Testing performed by : [address] [address] MPV 10.1 9.1 - 12.3 fL [place] Comment:Testing performed by : [address] [address] RBC 2.50(L) 4.30 - 5.80 M/cumm [facility] Comment:Testing performed by : [address] [address] MCV 92.0 81.3 - 96.4 fL [facility] Comment:Testing performed by : [address] [address] MCH 31.2 27.1 - 33.3 pg [place] Comment:Testing performed by : [address] [address] MCHC 33.9 32.3 - 35.7 g/dL [facility] Comment:Testing performed by : [address] [address] RDW CV 22.7(H) 11.1 - 14.9 % [facility] Comment:Testing performed by : [address] [address] RDW SD 74.2(H) 35.7 - 48.1 fL [facility] Comment:Testing performed by : [address] [address] NRBC abs 0.13(H) 0.00 - 0.01 K/cumm [facility] Comment:Testing performed by : [address] [address] Morphologic Screen Results confirmed by manual morphology review. [facility] Comment:Testing performed by : [address] [address] Blood 02/16/2025 10:4 6 AM CDT 02/16/2025 10:56 AM CDT us Ezequiel Carrizales MD LAB BLOOD ORDERABL ES Edited Result - Final Performing Organization Address [facility] Co de Phone Number KENYET[address] [employer] [place] [address] * (ABNORMAL) Reticulocyte Count (02/16/2025 10:46 AM CDT) Retics, absolute 278(H) 20 - 87 K/cumm Comment:Testing performed by : [address] [address] Retics 19.0(H) 0.4 - 2.9 % [facility] Comment:Testing performed by : [address] [address] Reticulocyte Hgb 29.4(L) 30.5 - 38.0 pg [facility] Comment:Testing performed by : [address] [address] Blood 02/16/2025 10:4 6 AM CDT 02/16/2025 10:56 AM CDT us Kassy George NP LAB BLOOD ORDERABLES Final Re sult Performing Organization Address [facility] Co de Phone Number [place] [address] Department [place] [address] * Blood culture Blood (02/16/2025 10:02 AM CDT) Report Final Report: No growth Comment:Testing performed by : [facility], [address] [place]., [address] Blood 02/16/2025 10:0 2 AM CDT 02/16/2025 [...] performance characteristics have been verified by the [facility] Microbiology Laboratory. For questions about this culture, contact the Microbiology Laboratory at [phone]. Interpretive data was last revised on 24. Deana HO LAB MICROBIOLOGY - GENERAL OR DERABLES Final Result [facility] [address] [facility] Department [place] [address] * eGFR (02/16/2025 9:50 AM CDT) eGFR [...] was last reviewed 2021. Testing performed by: [facility], [address] [place] [address]., [address] Blood 02/16/2025 9:50 AM CDT 02/16/2025 9:55 AM CDT us Deana HO LAB BLOOD ORDERABLES Final Re sult [facility] [address] [facility] Department [place] [address] * Blood culture Blood (02/16/2025 9:50 AM CDT) Report Final Report: No growth Comment:Testing performed by : [facility], [address] [place]., [address] Blood 02/16/2025 9:50 AM CDT 02/16/2025 2:06 [...] performance characteristics have been verified by the [facility] Microbiology Laboratory. For questions about this culture, contact the Microbiology Laboratory at [phone]. Interpretive data was last revised on 24. us Deana HO LAB MICROBIOLOGY - GENERAL OR DERABLES Final Result Performing Organization Address City/[facility]/ZIP Co de Phone Number [facility] [address] [place] [address] * (ABNORMAL) Lactate dehydrogenase (LD) (02/16/2025 9:50 AM CDT) Lactate dehydrogenase (LDH) 464(H) 100 - 250 Units/L Comment: Hemolyzed; result may be falsely elevated Testing performed by: [address] [address] Blood 02/16/2025 9:50 AM CDT 02/16/2025 9:55 AM CDT us Ezequiel Carrizales MD LAB BLOOD ORDERABL ES Final Result Performing Organization Address City/[facility] Co de Phone Number [address] [place] [address] * (ABNORMAL) Comprehensive metabolic panel (02/16/2025 9:50 AM CDT) Pathologist [facility] Sodium 138 135 - 145 mmol/L Comment:Testing performed by : [address] [address] Potassium, pl 3.8 3.3 - 4.9 mmol/L [facility] Comment: Hemolyzed; Potassium value may be falsely elevated by as much as 1.0 mmol/L. Suggest redraw and reanalysis. Testing performed by: [address], [place]., [address] Chloride 104 97 - 110 mmol/L [facility] Comment:Testing performed by : [address], [place]., [address] CO2 23 22 - 32 mmol/L [facility] Comment:Testing performed by : [address], [place]., [address] Anion gap 11 2 - 15 mmol/L [facility] Comment:Testing performed by : [address], [place]., [address] BUN 2(L) 6 - 25 mg/dL [facility] Comment:Testing performed by : [address], [place]., [address] Creatinine 0.52(L) 0.80 - 1.30 mg/dL [facility] Comment:Testing performed by : [address] [address] Glucose 104 70 - 199 mg/dL [facility] Comment: Interpretive Data Fasting glucose [...] was last revised 2022. Testing performed by: [address] [address] Calcium 8.5 8.5 - 10.3 mg/dL [facility] Comment:Testing performed by : [address], [place]., [address] Bilirubin, total 5.6(H) 0.1 - 1.2 mg/dL [facility] Comment:Testing performed by : [address] [address] Protein, pl 6.7 6.5 - 8.5 g/dL [facility] Comment:Testing performed by : [address] [address] Albumin 3.9 3.5 - 5.0 g/dL [facility] Comment:Testing performed by : [address] [address] Alk phos 260(H) 40 - 130 Units/L [facility] Comment:Testing performed by : [address] [address] ALT 40 7 - 55 Units/L [facility] Comment:Testing performed by : [address] [address] AST 61(H) 10 - 50 Units/L [facility] Comment: Hemolyzed; result may be falsely elevated Testing performed by: [address] [address] Blood 02/16/2025 9:50 AM CDT 02/16/2025 9:55 AM CDT us Deana HO LAB BLOOD ORDERABLES Final Re sult [facility] [address] [facility] Department [place] [address] * CT Chest PE (CTA) Abdomen Pelvis [...] Anne Merchant M.D. FT: FT Report ID: [id number] Reading Location: [id number] Procedure Note Anne Hernandes MD - 02/15/2025 [...] Anne Merchant M.D. FT: FT Report ID: [id number] Reading Location: [id number] us Deana HO IMG CT PROCEDURES Final [...] was last reviewed 2021. Testing performed by: [address] [address] Blood 02/15/2025 3:53 PM CDT 02/15/2025 4:01 PM CDT Ezequiel Carrizales MD LAB BLOOD ORDERABL ES Final Result [facility] [address] [facility] Department [place] [address] * (ABNORMAL) Comprehensive metabolic panel (02/15/2025 3:53 PM CDT) Sodium 142 135 - 145 mmol/L Comment:Testing performed by : [address] [address] Potassium, pl 3.0(L) 3.3 - 4.9 mmol/L [facility] Comment:Testing performed by : [address] [address] Chloride 106 97 - 110 mmol/L [facility] Comment:Testing performed by : [address] [address] CO2 24 22 - 32 mmol/L [facility] Comment:Testing performed by : [address], [place]., [address] Anion gap 12 2 - 15 mmol/L [facility] Comment:Testing performed by : [address], [place]., [address] BUN 3(L) 6 - 25 mg/dL [facility] Comment:Testing performed by : [address] [address] Creatinine 0.60(L) 0.80 - 1.30 mg/dL [facility] Comment:Testing performed by : [address] [address] Glucose 121 70 - 199 mg/dL [facility] [...] was last revised 2022. Testing performed by: [address] [address] [address] Calcium 8.2(L) 8.5 - 10.3 mg/dL [facility] Comment:Testing performed by : [address] [address] Bilirubin, total 6.0(H) 0.1 - 1.2 mg/dL [facility] Comment:Testing performed by : [address] [address] Protein, pl 6.7 6.5 - 8.5 g/dL [facility] Comment:Testing performed by : [address] [address] Albumin 3.8 3.5 - 5.0 g/dL [facility] SHETTY Comment:Testing performed by : [address] [address] Alk phos 261(H) 40 - 130 Units/L [facility] SHETTY Comment:Testing performed by : [address] [address] ALT 36 7 - 55 Units/L [facility] Comment:Testing performed by : [address] [address] AST 48 10 - 50 Units/L [facility] Comment:Testing performed by : [address], [address] Blood 02/15/2025 3:53 PM CDT 02/15/2025 4:01 PM CDT us Ezequiel Carrizales MD LAB BLOOD ORDERABL ES Final Result Performing Organization Address City/[facility] Co de Phone Number [address] [place] [address] * Sepsis Lactate w/ Reflex (02/15/2025 3:41 PM CDT) Pathologist [facility] Sepsis Lactate 1.4 0.7 - 2.0 mmol/L Comment:Testing performed by : [address], [address] Blood 02/15/2025 3:41 PM CDT 02/15/2025 3:59 PM CDT us Deana HO LAB BLOOD ORDERABLES Final Re sult Performing Organization Address City/[facility] Co de Phone Number [address] [place] [address] * (ABNORMAL) Differential, auto (02/15/2025 2:20 PM CDT) Pathologist [facility] Neutrophil abs 6.11 1.50 - 6.50 K/cumm Comment:Testing performed by : [address], [place]., [address] Imm gran abs 0.03 0.00 - 0.10 K/cumm [facility] Comment:Testing performed by : [address] [address] Lymphocyte abs 4.59(H) 0.80 - 3.30 K/cumm [facility] Comment:Testing performed by : [address], [place]., [address] Monocyte abs 1.00(H) 0.20 - 0.80 K/cumm [facility] Comment:Testing performed by : [address], [place]., [address] Eosinophil abs 0.14 0.00 - 0.50 K/cumm [facility] Comment:Testing performed by : [address], [place]., [address] Basophil abs 0.05 0.00 - 0.10 K/cumm [facility] Comment:Testing performed by : [address] [address] Neutrophil pct 51.2 % [facility] Comment: Interpretive Data Percent cell count reference ranges are not reported, since discordance with absolute values may lead to misinterpretation of CBC data. Current Interpretive Data was last revised on 2017. Testing performed by: [address] [address] Imm gran pct 0.3 % [facility] Comment: Interpretive Data Percent cell count reference ranges are not reported, since discordance with absolute values may lead to misinterpretation of CBC data. Current Interpretive Data was last revised on 2017. Testing performed by: [address] [address] Lymphocyte pct 38.5 % [facility] Comment: Interpretive Data Percent cell count reference ranges are not reported, since discordance with absolute values may lead to misinterpretation of CBC data. Current Interpretive Data was last revised on 2017. Testing performed by: [address] [address] Monocyte pct 8.4 % [facility] Comment: Interpretive Data Percent cell count reference ranges are not reported, since discordance with absolute values may lead to misinterpretation of CBC data. Current Interpretive Data was last revised on 2017. Testing performed by: [address] [address] Eosinophil pct 1.2 % [facility] Comment: Interpretive Data Percent cell count reference ranges are not reported, since discordance with absolute values may lead to misinterpretation of CBC data. Current Interpretive Data was last revised on 2017. Testing performed by: [address] [address] Basophil pct 0.4 % [facility] Comment: Interpretive Data Percent cell count reference ranges are not reported, since discordance with absolute values may lead to misinterpretation of CBC data. Current Interpretive Data was last revised on 2017. Testing performed by: [address] [address] Blood 02/15/2025 2:20 PM CDT 02/15/2025 2:26 PM CDT Ezequiel Carrizales MD LAB BLOOD ORDERABL ES Final Result [facility] [address] [facility] Department [place] [address] * (ABNORMAL) CBC with auto differential (02/15/2025 2:20 PM CDT) WBC 11.92(H) 3.80 - 9.90 K/cumm Comment:Testing performed by : [address] [address] Hgb 7.7(L) 13.0 - 17.5 g/dL [facility] Comment:Testing performed by : [address] [address] Hct 22.2(L) 38.9 - 50.3 % [facility] Comment:Testing performed by : [address] [address] Plt 292 150 - 400 K/cumm [facility] Comment:Testing performed by : [address] [address] MPV 10.0 9.1 - 12.3 fL [facility] Comment:Testing performed by : [address] [address] RBC 2.46(L) 4.30 - 5.80 M/cumm [facility] Comment:Testing performed by : [address] [address] MCV 90.2 81.3 - 96.4 fL [facility] Comment:Testing performed by : [address], [address] MCH 31.3 27.1 - 33.3 pg [facility] Comment:Testing performed by : [address], [address] MCHC 34.7 32.3 - 35.7 g/dL [facility] Comment:Testing performed by : [address], [address] RDW CV 22.0(H) 11.1 - 14.9 % [facility] Comment:Testing performed by : [address], [address] RDW SD 71.7(H) 35.7 - 48.1 fL [facility] Comment:Testing performed by : [address] [address] NRBC abs 0.09(H) 0.00 - 0.01 K/cumm [facility] Comment:Testing performed by : [address], [address] Blood 02/15/2025 2:20 PM CDT 02/15/2025 2:26 PM CDT us Ezequiel Carrizales MD LAB BLOOD ORDERABL ES Final Result [facility] [address] [facility] Department [place] [address] * Influenza A/B, RSV, and COVID-19 PCR Nasopharyngeal (02/15/2025 1:35 PM CDT) Pathologist [facility] COVID-19 RNA Negative Negative Comment:Testing performed by : [address] [address] Influenza A RNA Negative Negative [facility] Comment:Testing performed by : [address] [address] Influenza B RNA Negative Negative [facility] Comment:Testing performed by : [address] [address] RSV RNA Negative Negative [facility] Comment: Interpretive data: Testing performed by [facility]. This test is performed using the [employer] Xpert Xpress CoV-2/Flu/RSV plus assay. This is a multiplex, real-time reverse transcriptase PCR assay intended for the qualitative detection of nucleic acid from SARS-CoV-2, influenza A, influenza B, and respiratory syncytial virus. This assay has been cleared by the [place] Food and Drug administration. The performance characteristics have been verified by the [facility]. Results must be considered in the clinical context, and a negative result does not rule out infection. Interpretive Data last revised 2023 Testing performed by: [address] [address] Nasopharyngeal 02/15/2025 1: 35 PM CDT 02/15/2025 1:43 PM CDT Narrative [facility] - 02/15/2025 2:25 PM CDT Is the Patient experiencing symptoms consistent with COVID?->Yes Deana HO LAB MICROBIOLOGY - GENERAL OR DERABLES Final Result [facility] [address] [facility] Department [place] [address] * ECG 12 lead (02/15/2025 1:13 PM CDT) [facility] Ventricular Rate EKG/Min 82 BPM [facility] Atrial Rate 82 BPM [facility] [place]-Interval (MSEC) 174 ms [facility] QRS-Interval (MSEC) 80 ms [facility] QT-Interval (MSEC) 404 ms [facility] QTc 472 ms [facility] P [place] 62 degrees [facility] R [place] 15 degrees [facility] T [place] 24 degrees [facility] Diagnosis Normal sinus rhythm Normal ECG When compared with ECG of 16-JAN-2025 14:47, Nonspecific T wave abnormality, improved in Inferior leads Nonspecific T wave abnormality no longer evident in Anterolateral leads Confirmed by KEVON BYRD M.D. ([id number]) on 02/15/2025 2:52:50 PM [facility] 02/15/2025 1:13 PM CDT 02/15/2025 2:52 PM CDT us Deana HO ECG ORDERABLES Final Result [facility] * eGFR (02/14/2025 2:49 PM CDT) eGFR [...] LAB BLOOD ORDERABLES Final R esult [facility] [place] [address] * (ABNORMAL) Differential, auto (02/14/2025 2:49 PM CDT) Neutrophil abs 7.49(H) 1.50 - 6.50 K/cumm Comment:Testing performed by : [facility], [address] [place] [address] Lymphocyte abs 3.16 0.80 - 3.30 K/cumm [facility] Comment:Testing performed by : [facility], [address] [place], [place] [id number] Monocyte abs 1.08(H) 0.20 - 0.80 K/cumm [facility] Comment:Testing performed by : [facility], [address] [place] [address] Eosinophil abs 0.10 0.00 - 0.50 K/cumm [facility] Comment:Testing performed by : [facility], [address] [place] [address] Basophil abs 0.16(H) 0.00 - 0.10 K/cumm [facility] Comment:Testing performed by : [facility], [address] [place], [place] [id number] Neutrophil pct 62.5 % [facility] Comment: Interpretive Data Percent cell count reference ranges are not reported, since discordance with absolute values may lead to misinterpretation of CBC data. Current Interpretive Data was last revised on 2017. Testing performed by: [facility], [address] [place] [address] Lymphocyte pct 26.4 % [facility] Comment: Interpretive Data Percent cell count reference ranges are not reported, since discordance with absolute values may lead to misinterpretation of CBC data. Current Interpretive Data was last revised on 2017. Testing performed by: [facility], [address] [place] [address] Monocyte pct 9.0 % [facility] Comment: Interpretive Data Percent cell count reference ranges are not reported, since discordance with absolute values may lead to misinterpretation of CBC data. Current Interpretive Data was last revised on 2017. Testing performed by: [facility], [address] [place] [phone] Eosinophil pct 0.9 % [facility] Comment: Interpretive Data Percent cell count reference ranges are not reported, since discordance with absolute values may lead to misinterpretation of CBC data. Current Interpretive Data was last revised on 2017. Testing performed by: [facility], [address] [place] [phone] Basophil pct 1.3 % [facility] Comment: Interpretive Data Percent cell count reference ranges are not reported, since discordance with absolute values may lead to misinterpretation of CBC data. Current Interpretive Data was last revised on 2017. Testing performed by: [facility], [address] [place] [address] Blood 02/14/2025 2:49 PM CDT 02/14/2025 3:02 PM CDT Laurent Gonzalez MD LAB BLOOD ORDERABLES Final R esult [facility] [place] [address] * (ABNORMAL) CBC with auto differential (02/14/2025 2:49 PM CDT) WBC 11.99(H) 3.80 - 9.90 K/cumm Comment:Testing performed by : [facility], [address] [place] [address] Hgb 9.2(L) 13.0 - 17.5 g/dL [facility] JURADO Comment:Testing performed by : [facility], [address] [place] [address] Hct 26.5(L) 38.9 - 50.3 % [facility] Comment:Testing performed by : [facility], [address] [place] [address] Plt 341 150 - 400 K/cumm [facility] J[facility] Comment:Testing performed by : [facility], [address] [place] [address] MPV 8.5 6.8 - 10.4 fL [facility] JUR[facility] Comment:Testing performed by : [facility], [address] [place] [address] RBC 2.86(L) 4.30 - 5.80 M/cumm [facility] JUR[facility] Comment:Testing performed by : [facility], [address] [place], [place] [phone] MCV 92.6 81.3 - 96.4 fL [facility] JURADO Comment:Testing performed by : [facility], [address] [place] [address] MCH 32.0 27.1 - 33.3 pg [facility] JURADO Comment:Testing performed by : [facility], [address] [place] [address] MCHC 34.5 32.3 - 35.7 g/dL [facility] JURADO Comment:Testing performed by : [facility], [address] [place] [address] RDW CV 24.7(H) 11.1 - 14.9 % [facility] Comment:Testing performed by : [facility], [address] [place] [address] NRBC abs 0.10(H) 0.00 - 0.01 K/cumm [facility] Comment:Testing performed by : [facility], [address] [place] [address] Blood 02/14/2025 2:49 PM CDT 02/14/2025 3:02 PM CDT us Laurent Gonzalez MD LAB BLOOD ORDERABLES Final R esult [facility] [place] [address] * (ABNORMAL) Comprehensive metabolic panel (02/14/2025 2:49 PM CDT) Sodium 141 135 - 145 mmol/L Potassium, pl 3.3 3.3 - 4.9 mmol/L [facility] Chloride 106 97 - 110 mmol/L [facility] CO2 22 22 - 32 mmol/L [facility] Anion gap 13 2 - 15 mmol/L [facility] BUN 3(L) 6 - 25 mg/dL [facility] Creatinine 0.52(L) 0.80 - 1.30 mg/dL [facility] Glucose 121 70 - 199 mg/dL [facility] [...] 2022. Calcium 9.0 8.5 - 10.3 mg/dL [facility] Bilirubin, total 6.9(H) 0.1 - 1.2 mg/dL [facility] Protein, pl 8.2 6.5 - 8.5 g/dL [facility] Albumin 4.3 3.5 - 5.0 g/dL [facility] Alk phos 310(H) 40 - 130 Units/L [facility] ALT 51 7 - 55 Units/L [facility] AST 86(H) 10 - 50 Units/L [facility] Blood 02/14/2025 2:49 PM CDT 02/14/2025 3:06 PM CDT us Laurent Gonzalez MD LAB BLOOD ORDERABLES Final R esult [facility] Department [place] [address] * SCAN - RADIOLOGY/IMAGING (01/21/2025) Anatomical Region [...] was last reviewed 2021. Testing performed by: [address] [address] Blood 01/18/2025 6:14 AM CDT 01/18/2025 6:34 AM CDT Rasta Garcia MD LAB BLOOD ORDERABLES Final Res ult [facility] [address] [facility] Department [place] [address] * (ABNORMAL) Differential, auto (01/18/2025 6:14 AM CDT) Pathologist [facility] Neutrophil abs 5.66 1.50 - 6.50 K/cumm Comment:Testing performed by : [address] [address] Imm gran abs 0.06 0.00 - 0.10 K/cumm [facility] SHETTY Comment:Testing performed by : [address], [place]., [address] Lymphocyte abs 4.21(H) 0.80 - 3.30 K/cumm [facility] Comment:Testing performed by : [address], [place]., [address] Monocyte abs 1.53(H) 0.20 - 0.80 K/cumm [facility] Comment:Testing performed by : [address], [place]., [address] Eosinophil abs 0.32 0.00 - 0.50 K/cumm [facility] Comment:Testing performed by : [address], [place]., [address] Basophil abs 0.06 0.00 - 0.10 K/cumm [facility] Comment:Testing performed by : [address], [place]., [address] Neutrophil pct 47.8 % [facility] Comment: Interpretive Data Percent cell count reference ranges are not reported, since discordance with absolute values may lead to misinterpretation of CBC data. Current Interpretive Data was last revised on 2017. Testing performed by: [address] [address] Imm gran pct 0.5 % [facility] Comment: Interpretive Data Percent cell count reference ranges are not reported, since discordance with absolute values may lead to misinterpretation of CBC data. Current Interpretive Data was last revised on 2017. Testing performed by: [address] [address] Lymphocyte pct 35.6 % [facility] Comment: Interpretive Data Percent cell count reference ranges are not reported, since discordance with absolute values may lead to misinterpretation of CBC data. Current Interpretive Data was last revised on 2017. Testing performed by: [address] [address] Monocyte pct 12.9 % [facility] Comment: Interpretive Data Percent cell count reference ranges are not reported, since discordance with absolute values may lead to misinterpretation of CBC data. Current Interpretive Data was last revised on 2017. Testing performed by: [address] [address] Eosinophil pct 2.7 % [facility] SHETTY Comment: Interpretive Data Percent cell count reference ranges are not reported, since discordance with absolute values may lead to misinterpretation of CBC data. Current Interpretive Data was last revised on 2017. Testing performed by: [address] [address] Basophil pct 0.5 % [facility] SHETTY Comment: Interpretive Data Percent cell count reference ranges are not reported, since discordance with absolute values may lead to misinterpretation of CBC data. Current Interpretive Data was last revised on 2017. Testing performed by: [address] [address] Blood 01/18/2025 6:14 AM CDT 01/18/2025 6:34 AM CDT us Rasta Garcia MD LAB BLOOD ORDERABLES Final Res ult [facility] Department [place] [address] * (ABNORMAL) CBC with auto differential (01/18/2025 6:14 AM CDT) WBC 11.84(H) 3.80 - 9.90 K/cumm Comment:Testing performed by : [address] [address] Hgb 8.3(L) 13.0 - 17.5 g/dL [facility] SHETTY Comment:Testing performed by : [address] [address] Hct 24.3(L) 38.9 - 50.3 % [facility] SHETTY Comment:Testing performed by : [address] [address] Plt 302 150 - 400 K/cumm [facility] SHETTY Comment:Testing performed by : [address] [address] MPV 9.9 9.1 - 12.3 fL [facility] SHETTY Comment:Testing performed by : [address] [address] RBC 2.79(L) 4.30 - 5.80 M/cumm [facility] Comment:Testing performed by : [address] [address] MCV 87.1 81.3 - 96.4 fL [facility] Comment:Testing performed by : [address] [address] MCH 29.7 27.1 - 33.3 pg [facility] Comment:Testing performed by : [address], [address] MCHC 34.2 32.3 - 35.7 g/dL [facility] Comment:Testing performed by : [address], [address] RDW CV 21.2(H) 11.1 - 14.9 % [facility] Comment:Testing performed by : [address], [address] RDW SD 66.2(H) 35.7 - 48.1 fL [facility] Comment:Testing performed by : [address], [address] NRBC abs 0.05(H) 0.00 - 0.01 K/cumm [facility] Comment:Testing performed by : [address], [address] Morphologic Screen Results confirmed by manual morphology review. [facility] Comment:Testing performed by : [address], [address] Blood 01/18/2025 6:14 AM CDT 01/18/2025 6:34 AM CDT us Rasta Garcia MD LAB BLOOD ORDERABLES Edited Re sult - Final [facility] [address] [facility] Department [place] [address] * (ABNORMAL) Reticulocyte Count (01/18/2025 6:14 AM CDT) Retics, absolute 362(H) 20 - 87 K/cumm Comment:Testing performed by : [address] [address] Retics 12.5(H) 0.4 - 2.9 % [facility] Comment:Testing performed by : [address] [address] Reticulocyte Hgb 31.6 30.5 - 38.0 pg [facility] Comment:Testing performed by : [address] [address] Blood 01/18/2025 6:14 AM CDT 01/18/2025 6:34 AM CDT us Rasta Garcia MD LAB BLOOD ORDERABLES Final Res ult [facility] [address] [facility] Department [place] [address] * (ABNORMAL) Basic metabolic panel (01/18/2025 6:14 AM CDT) Sodium 138 135 - 145 mmol/L Comment:Testing performed by : [address] [address] Potassium, pl 3.3 3.3 - 4.9 mmol/L [facility] Comment:Testing performed by : [address] [address] Chloride 101 97 - 110 mmol/L [facility] Comment:Testing performed by : [address] [address] CO2 25 22 - 32 mmol/L [facility] Comment:Testing performed by : [address] [address] Anion gap 12 2 - 15 mmol/L [facility] Comment:Testing performed by : [address] [address] BUN 4(L) 6 - 25 mg/dL [facility] Comment:Testing performed by : [address] [address] Creatinine 0.61(L) 0.80 - 1.30 mg/dL [facility] Comment:Testing performed by : [address] [address] Glucose 105 70 - 199 mg/dL [facility] SHETTY Comment: [...] was last revised 2022. Testing performed by: [facility], [address] [place] [address]., [address] Calcium 9.1 8.5 - 10.3 mg/dL [facility] SHETTY Comment:Testing performed by : [facility], [address] [place] [address]., [address] Blood 01/18/2025 6:14 AM CDT 01/18/2025 6:34 AM CDT us Rasta Garcia MD LAB BLOOD ORDERABLES Final Res ult [facility] [address] [facility] Department [place] [address] * eGFR (01/17/2025 6:04 AM [...] was last reviewed 2021. Testing performed by: [address] [address] Blood 01/17/2025 6:04 AM CDT 01/17/2025 6:35 AM CDT us Rasta Garcia MD LAB BLOOD ORDERABLES Final Res ult [facility] [address] [facility] Department [place] [address] * (ABNORMAL) Differential, auto (01/17/2025 6:04 AM CDT) Pathologist [facility] Neutrophil abs 4.97 1.50 - 6.50 K/cumm Comment:Testing performed by : [address] [address] Imm gran abs 0.04 0.00 - 0.10 K/cumm [facility] Comment:Testing performed by : [address] [address] Lymphocyte abs 3.73(H) 0.80 - 3.30 K/cumm [facility] Comment:Testing performed by : [address] [address] Monocyte abs 1.04(H) 0.20 - 0.80 K/cumm [facility] Comment:Testing performed by : [address] [address] Eosinophil abs 0.35 0.00 - 0.50 K/cumm [facility] Comment:Testing performed by : [address] [address] Basophil abs 0.06 0.00 - 0.10 K/cumm [facility] Comment:Testing performed by : [address] [address] Neutrophil pct 48.8 % [facility] Comment: Interpretive Data Percent cell count reference ranges are not reported, since discordance with absolute values may lead to misinterpretation of CBC data. Current Interpretive Data was last revised on 2017. Testing performed by: [address] [address] Imm gran pct 0.4 % [facility] Comment: Interpretive Data Percent cell count reference ranges are not reported, since discordance with absolute values may lead to misinterpretation of CBC data. Current Interpretive Data was last revised on 2017. Testing performed by: [address] [address] Lymphocyte pct 36.6 % [facility] Comment: Interpretive Data Percent cell count reference ranges are not reported, since discordance with absolute values may lead to misinterpretation of CBC data. Current Interpretive Data was last revised on 2017. Testing performed by: [address] [address] Monocyte pct 10.2 % [facility] Comment: Interpretive Data Percent cell count reference ranges are not reported, since discordance with absolute values may lead to misinterpretation of CBC data. Current Interpretive Data was last revised on 2017. Testing performed by: [address] [address] Eosinophil pct 3.4 % [facility] Comment: Interpretive Data Percent cell count reference ranges are not reported, since discordance with absolute values may lead to misinterpretation of CBC data. Current Interpretive Data was last revised on 2017. Testing performed by: [address] [address] Basophil pct 0.6 % [facility] Comment: Interpretive Data Percent cell count reference ranges are not reported, since discordance with absolute values may lead to misinterpretation of CBC data. Current Interpretive Data was last revised on 2017. Testing performed by: [address] [address] Blood 01/17/2025 6:04 AM CDT 01/17/2025 6:35 AM CDT us Rasta Garcia MD LAB BLOOD ORDERABLES Final Res ult [facility] [address] [facility] Department [place] [address] * (ABNORMAL) CBC with auto differential (01/17/2025 6:04 AM CDT) [facility] Signature WBC 10.19(H) 3.80 - 9.90 K/cumm Comment:Testing performed by : [address] [address] Hgb 8.3(L) 13.0 - 17.5 g/dL [facility] Comment:Testing performed by : [address] [address] Hct 24.0(L) 38.9 - 50.3 % [place] Comment:Testing performed by : [address] [address] Plt 329 150 - 400 K/cumm [place] Comment:Testing performed by : [address] [address] MPV 10.6 9.1 - 12.3 fL [place] Comment:Testing performed by : [address] [address] RBC 2.77(L) 4.30 - 5.80 M/cumm [place] Comment:Testing performed by : [address] [address] MCV 86.6 81.3 - 96.4 fL [place] Comment:Testing performed by : [address] [address] MCH 30.0 27.1 - 33.3 pg [place] Comment:Testing performed by : [address] [address] MCHC 34.6 32.3 - 35.7 g/dL [place] Comment:Testing performed by : [address] [address] RDW CV 21.2(H) 11.1 - 14.9 % [facility] Comment:Testing performed by : [address], [address] RDW SD 66.2(H) 35.7 - 48.1 fL [facility] Comment:Testing performed by : [facility], [address] [place] [address]., [address] NRBC abs 0.06(H) 0.00 - 0.01 K/cumm [facility] SHETTY Comment:Testing performed by : [address] [address] Morphologic Screen Results confirmed by manual morphology review. [facility] Comment:Testing performed by : [address] [address] Blood 01/17/2025 6:04 AM CDT 01/17/2025 6:35 AM CDT us Rasta Garcia MD LAB BLOOD ORDERABLES Edited Re sult - Final Performing Organization Address [facility] de Phone Number [facility] [address] [place] [address] * (ABNORMAL) Reticulocyte Count (01/17/2025 6:04 AM CDT) Retics, absolute 468(H) 20 - 87 K/cumm Comment:Testing performed by : [address] [address] Retics 15.7(H) 0.4 - 2.9 % [place] Comment:Testing performed by : [address] [address] Reticulocyte Hgb 30.0(L) 30.5 - 38.0 pg [place] Comment:Testing performed by : [address] [address] Blood 01/17/2025 6:04 AM CDT 01/17/2025 6:35 AM CDT us Rasta Garcia MD LAB BLOOD ORDERABLES Final Res ult Performing Organization Address [facility] Co de Phone Number KENYETTAALEJANDRA [address] [place] [employer] [place] [address] * (ABNORMAL) Basic metabolic panel (01/17/2025 6:04 AM CDT) [facility] Sodium 137 135 - 145 mmol/L Comment:Testing performed by : [address] [address] Potassium, pl 3.1(L) 3.3 - 4.9 mmol/L [place] Comment:Testing performed by : [address], [place]., [address] Chloride 101 97 - 110 mmol/L [facility] Comment:Testing performed by : [address], [place]., [address] CO2 24 22 - 32 mmol/L [facility] Comment:Testing performed by : [address], [place]., [address] Anion gap 12 2 - 15 mmol/L [facility] Comment:Testing performed by : [address], [place]., [address] BUN 3(L) 6 - 25 mg/dL [facility] Comment:Testing performed by : [address], [place]., [address] Creatinine 0.50(L) 0.80 - 1.30 mg/dL [facility] Comment:Testing performed by : [address] [address] Glucose 125 70 - 199 mg/dL [facility] Comment: Interpretive Data Fasting glucose [...] was last revised 2022. Testing performed by: [address] [address] Calcium 8.9 8.5 - 10.3 mg/dL [place] Comment:Testing performed by : [address], [place]., [address] Blood 01/17/2025 6:04 AM CDT 01/17/2025 6:35 AM CDT us Rasta Garica MD LAB BLOOD ORDERABLES Final Res ult Performing Organization Address [facility] Co de Phone Number [facility] [address] [place] [address] * Troponin T high-sensitivity 4-hour (01/16/2025 6:37 PM CDT) Trop T hs 13 <=22 ng/L Comment: Interpretive Data For further hscTnT resources including the diagnostic algorithm and an aid in interpretation, copy and paste this link: https://nrl.Effective Measure.org/show/hsTrop Current Interpretive Data last revised 2020. Testing performed by: [address] [address] Trop T hs delta 7 ng/L [place] Comment:Testing performed by : [address] [address] Trop T hs interp Equivocal [facility] Comment:Testing performed by : [address] [address] Blood 01/16/2025 6:37 PM CDT 01/16/2025 6:48 PM CDT Casey Paz MD LAB BLOOD ORDERABLES Final Result Performing Organization Address [facility] Co de Phone Number KENYETTA[address] [address] * Troponin T high-sensitivity 2-hour (01/16/2025 5:09 PM CDT) Trop T hs <6 <=22 ng/L Comment: Interpretive Data For further hscTnT resources including the diagnostic algorithm and an aid in interpretation, copy and paste this link: https://nrl.Effective Measure.org/show/hsTrop Current Interpretive Data last revised 2020. Testing performed by: [address] [address] Trop T hs delta 0 ng/L [facility] Comment:Testing performed by : [facility], [address] [place] [address]., [address] Trop T hs interp Insignificant [facility] SHETTY Comment:Testing performed by : [facility], [address] [place] [address]., [address] Blood 01/16/2025 5:09 PM CDT 01/16/2025 5:15 PM CDT Casey Paz MD LAB BLOOD ORDERABLES Final Result Performing Organization Address City/[facility] Co de Phone Number KENYETTA[address] [employer] [place] [address] * Post-Transfusion Reaction ABO/Rh (01/16/2025 3:58 PM CDT) ABO/Rh Post-Transfusi on Reaction A Positive Comment:Testing performed by : [address] [address] Blood 01/16/2025 3:58 PM CDT 01/16/2025 3:59 PM CDT Casey Paz MD LAB BLOOD BANK TEST ORDERA BLES Final Result Performing Organization Address [facility]/ZIP Co de Phone Number [address] [employer] [place] [address] * Pre-Transfusion Reaction ABO/Rh (01/16/2025 3:58 PM CDT) ABO/Rh Pre-Transfusio n Reaction A Positive Comment:Testing performed by : [address] [address] Blood 01/16/2025 3:58 PM CDT 01/16/2025 3:59 PM CDT us Casey Paz MD LAB BLOOD BANK TEST ORDERA BLES Final Result Performing Organization Address City/[facility]/ZIP Co de Phone Number CERNER [address] [address] * Post TRXN SAMY (01/16/2025 3:58 PM CDT) Yesenia, direct, post-transfusi on Negative Comment:Testing performed by : [address] [address] Blood 01/16/2025 3:58 PM CDT 01/16/2025 3:59 PM CDT Casey Paz MD LAB BLOOD BANK TEST ORDERA BLES Final Result Performing Organization Address City/[facility]/ZIP Co de Phone Number [place] [address] [address] * Pre TRXN SAMY (01/16/2025 3:58 PM CDT) Pathologist [facility] Direct yesenia pre-transfusio n reaction Negative Comment:Testing performed by : [facility], [address] [place] [address]., [address] Blood 01/16/2025 3:58 PM CDT 01/16/2025 3:59 PM CDT Casey Paz MD LAB BLOOD BANK TEST ORDERA BLES Final Result Performing Organization Address City/[facility]/ZIP Co de Phone Number [place] [address] [address] * ECG 12 lead (01/16/2025 2:47 PM CDT) Ventricular Rate EKG/Min 79 BPM [facility] Atrial Rate 79 BPM [facility] [place]-Interval (MSEC) 190 ms [facility] QRS-Interval (MSEC) 80 ms [facility] QT-Interval (MSEC) 410 ms [facility] QTc 470 ms [facility] P [place] 48 degrees [facility] R [place] 22 degrees [facility] T [place] -16 degrees [facility] Diagnosis Normal sinus rhythm Nonspecific T wave abnormality Abnormal ECG When compared with ECG of 31-DEC-2024 23:51, Nonspecific T wave abnormality now evident in Anterolateral leads Confirmed by MIRYAM GARCÍA M.D. ([id number]) on 01/16/2025 6:28:08 PM [facility] 01/16/2025 2:47 PM CDT 01/16/2025 6:28 PM CDT Casey Paz MD ECG ORDERABLES Final Resu lt Performing Organization Address City/[facility] Co de Phone Number [facility] [employer] [facility] * Troponin T high-sensitivity series (baseline, 2hr, 4hr, 6hr) (01/16/2025 2:40 PM CDT) Pathologist [facility] Trop T hs <6 <=22 ng/L Comment: Interpretive Data For further hscTnT resources including the diagnostic algorithm and an aid in interpretation, copy and paste this link: https://nrl.testcatalog.org/show/hsTrop Current Interpretive Data last revised 2020. Testing performed by: [address] [address] Blood 01/16/2025 2:40 PM CDT 01/16/2025 2:55 PM CDT Casey Paz MD LAB BLOOD ORDERABLES Final Result Performing Organization Address [facility] de Phone Number [facility] Department [place] [address] * (ABNORMAL) Differential, auto (01/16/2025 2:40 PM CDT) [facility] Neutrophil abs 5.04 1.50 - 6.50 K/cumm Comment:Testing performed by : [address] [address] Imm gran abs 0.05 0.00 - 0.10 K/cumm [place] Comment:Testing performed by : [address] [address] Lymphocyte abs 2.46 0.80 - 3.30 K/cumm [place] Comment:Testing performed by : [address] [address] Monocyte abs 0.91(H) 0.20 - 0.80 K/cumm [place] Comment:Testing performed by : [address], [place]., [address] Eosinophil abs 0.41 0.00 - 0.50 K/cumm [place] Comment:Testing performed by : [address], [place]., [address] Basophil abs 0.04 0.00 - 0.10 K/cumm [place] Comment:Testing performed by : [address] [address] Neutrophil pct 56.6 % [facility] Comment: Interpretive Data Percent cell count reference ranges are not reported, since discordance with absolute values may lead to misinterpretation of CBC data. Current Interpretive Data was last revised on 2017. Testing performed by: [address] [address] Imm gran pct 0.6 % [facility] Comment: Interpretive Data Percent cell count reference ranges are not reported, since discordance with absolute values may lead to misinterpretation of CBC data. Current Interpretive Data was last revised on 2017. Testing performed by: [address] [address] Lymphocyte pct 27.6 % [facility] Comment: Interpretive Data Percent cell count reference ranges are not reported, since discordance with absolute values may lead to misinterpretation of CBC data. Current Interpretive Data was last revised on 2017. Testing performed by: [address] [address] Monocyte pct 10.2 % [facility] Comment: Interpretive Data Percent cell count reference ranges are not reported, since discordance with absolute values may lead to misinterpretation of CBC data. Current Interpretive Data was last revised on 2017. Testing performed by: [address] [address] Eosinophil pct 4.6 % [facility] Comment: Interpretive Data Percent cell count reference ranges are not reported, since discordance with absolute values may lead to misinterpretation of CBC data. Current Interpretive Data was last revised on 2017. Testing performed by: [address] [address] Basophil pct 0.4 % [facility] SHETTY Comment: Interpretive Data Percent cell count reference ranges are not reported, since discordance with absolute values may lead to misinterpretation of CBC data. Current Interpretive Data was last revised on 2017. Testing performed by: [address] [address] Blood 01/16/2025 2:40 PM CDT 01/16/2025 2:55 PM CDT us Casey Paz MD LAB BLOOD ORDERABLES Final Result [facility] Department [place] [address] * (ABNORMAL) CBC with auto differential (01/16/2025 2:40 PM CDT) WBC 8.91 3.80 - 9.90 K/cumm Comment:Testing performed by : [address] [address] Hgb 8.3(L) 13.0 - 17.5 g/dL [facility] SHETTY Comment:Testing performed by : [address] [address] Hct 24.2(L) 38.9 - 50.3 % [facility] SHETTY Comment:Testing performed by : [address] [address] Plt 316 150 - 400 K/cumm [facility] SHETTY Comment:Testing performed by : [address] [address] MPV 10.1 9.1 - 12.3 fL [facility] SHETTY Comment:Testing performed by : [address] [address] RBC 2.80(L) 4.30 - 5.80 M/cumm [facility] SHETTY Comment:Testing performed by : [address] [address] MCV 86.4 81.3 - 96.4 fL [place] SHETTY Comment:Testing performed by : [address], [address] MCH 29.6 27.1 - 33.3 pg [facility] SHETTY Comment:Testing performed by : [address] [address] MCHC 34.3 32.3 - 35.7 g/dL [facility] SHETTY Comment:Testing performed by : [address], [address] RDW CV 21.2(H) 11.1 - 14.9 % [facility] Comment:Testing performed by : [address], [address] RDW SD 66.2(H) 35.7 - 48.1 fL [place] Comment:Testing performed by : [address], [address] NRBC abs 0.07(H) 0.00 - 0.01 K/cumm [facility] Comment:Testing performed by : [address], [address] Morphologic Screen Results confirmed by manual morphology review. [place] Comment:Testing performed by : [address], [address] Blood 01/16/2025 2:40 PM CDT 01/16/2025 2:55 PM CDT Casey Paz MD LAB BLOOD ORDERABLES Final Result Performing Organization Address City/State/[facility] Co de Phone Number [facility] [address] [facility] Department of Laboratories [place], [place] [id number] * XR Chest 1 View (01/16/2025 2:20 [...] Bradley Rushing M.D. MF: CALDERON Report ID: [id number] Reading Location: [id number] Procedure Note Bradley Rushing, DO - 01/16/2025 [...] Bradley Rushing M.D. MF: CALDERON Report ID: [id number] Reading Location: [id number] us Casey Paz MD IMG XR PROCEDURES Final Re sult * Transfuse RBC (01/16/2025 2:09 PM CDT) Blood us Casey Paz MD BLOOD TRANSFUSION ORDERABL ES Final Result [facility] [address] [facility] Department [place] [address] * Prepare RBC: 1 Units (01/16/2025 11:30 AM CDT) Units requested 1 Comment:Testing performed by : [facility], [address] [place] [address]., [address] Units requested Ready [facility] Comment:Testing performed by : [facility], [address] [place] [address]., [address] Unit Number [id number] Product code [id number] [facility] Blood Expiration Date [id number] [facility] Product Blood Type (for scanning) 6200 [facility] Product Blood Type APOS [facility] Dispense Status DISPENSED [facility] Blood 01/16/2025 11:3 0 AM CDT 01/16/2025 11:29 AM CDT Casey Paz MD BLOOD BANK PRODUCT ORDERAB LES Final Result Performing Organization Address [facility]/ZIP Co de Phone Number [place] [address] [facility] [place] [address] * ABO/Rh (01/16/2025 10:42 AM CDT) Pathologist [facility] ABO/Rh A Positive Comment:Testing performed by : [facility], [address] [place] [address]., [address] Blood 01/16/2025 10:4 2 AM CDT 01/16/2025 10:47 AM CDT Narrative [facility] - 01/16/2025 11:25 AM CDT Has the patient had Daratumumab or Isatuximab in the past 6 months?->Unknown Casey Paz MD LAB BLOOD BANK TEST ORDERA BLES Final Result [place] 1294[address] [facility] [address] [place] [address] * Crossmatch (01/16/2025 10:42 AM CDT) Crossmatch Compatible [facility] Unit number for crossmatch [id number] [facility] Crossmatch Compatible [facility] Unit number for crossmatch [id number] [facility] Blood 01/16/2025 10:4 2 AM CDT 01/16/2025 10:47 AM CDT Casey Paz MD LAB BLOOD BANK TEST ORDERA BLES Final Result [address] [place] [employer] [place] [address] * Antibody screen (01/16/2025 10:42 AM CDT) Yesenia, indirect, Gel Interpretation Negative ABSC Comment:Testing performed by : [facility], [address] [place] [address]., [address] Blood 01/16/2025 10:4 2 AM CDT 01/16/2025 10:47 AM CDT Narrative [facility] - 01/16/2025 11:25 AM CDT Has the patient had Daratumumab or Isatuximab in the past 6 months?->Unknown Casey Paz MD LAB BLOOD BANK TEST ORDERA BLES Final Result Performing Organization Address [facility] Co de Phone Number [address] [employer] [place] [address] * eGFR (01/16/2025 2:59 AM CDT) eGFR [...] was last reviewed 2021. Testing performed by: [address] [address] Blood 01/16/2025 2:59 AM CDT 01/16/2025 3:12 AM CDT us Rasta Garcia MD LAB BLOOD ORDERABLES Final Res ult [facility] [address] [facility] Department of Laboratories [place], [place] [id number] * (ABNORMAL) Differential, auto (01/16/2025 2:59 AM CDT) Neutrophil abs 4.31 1.50 - 6.50 K/cumm Comment:Testing performed by : [address] [address] Imm gran abs 0.03 0.00 - 0.10 K/cumm [place] Comment:Testing performed by : [address] [address] Lymphocyte abs 3.04 0.80 - 3.30 K/cumm [place] Comment:Testing performed by : [address] [address] Monocyte abs 0.81(H) 0.20 - 0.80 K/cumm [place] Comment:Testing performed by : [address] [address] Eosinophil abs 0.38 0.00 - 0.50 K/cumm [place] Comment:Testing performed by : [address] [address] Basophil abs 0.04 0.00 - 0.10 K/cumm [place] Comment:Testing performed by : [address] [address] Neutrophil pct 50.1 % [facility] Comment: Interpretive Data Percent cell count reference ranges are not reported, since discordance with absolute values may lead to misinterpretation of CBC data. Current Interpretive Data was last revised on 2017. Testing performed by: [address] [address] Imm gran pct 0.3 % [facility] Comment: Interpretive Data Percent cell count reference ranges are not reported, since discordance with absolute values may lead to misinterpretation of CBC data. Current Interpretive Data was last revised on 2017. Testing performed by: [address] [address] Lymphocyte pct 35.3 % [facility] Comment: Interpretive Data Percent cell count reference ranges are not reported, since discordance with absolute values may lead to misinterpretation of CBC data. Current Interpretive Data was last revised on 2017. Testing performed by: [address] [address] Monocyte pct 9.4 % [facility] Comment: Interpretive Data Percent cell count reference ranges are not reported, since discordance with absolute values may lead to misinterpretation of CBC data. Current Interpretive Data was last revised on 2017. Testing performed by: [address] [address] Eosinophil pct 4.4 % [facility] Comment: Interpretive Data Percent cell count reference ranges are not reported, since discordance with absolute values may lead to misinterpretation of CBC data. Current Interpretive Data was last revised on 2017. Testing performed by: [address] [address] Basophil pct 0.5 % [facility] Comment: Interpretive Data Percent cell count reference ranges are not reported, since discordance with absolute values may lead to misinterpretation of CBC data. Current Interpretive Data was last revised on 2017. Testing performed by: [address] [address] Blood 01/16/2025 2:59 AM CDT 01/16/2025 3:13 AM CDT us Rasta Garcia MD LAB BLOOD ORDERABLES Final Res ult [place] [address] [place] [address] Department [place] [address] * (ABNORMAL) CBC with auto differential (01/16/2025 2:59 AM CDT) [facility] WBC 8.61 3.80 - 9.90 K/cumm Comment:Testing performed by : [address] [address] Hgb 7.0(L) 13.0 - 17.5 g/dL [place] Comment:Testing performed by : [address] [address] Hct 19.8(L) 38.9 - 50.3 % [place] Comment:Testing performed by : [address] [address] Plt 276 150 - 400 K/cumm [place] Comment:Testing performed by : [address] [address] MPV 10.1 9.1 - 12.3 fL [place] Comment:Testing performed by : [address], [address] RBC 2.31(L) 4.30 - 5.80 M/cumm [place] Comment:Testing performed by : [address] [address] MCV 85.7 81.3 - 96.4 fL [place] Comment:Testing performed by : [address] [address] MCH 30.3 27.1 - 33.3 pg [place] Comment:Testing performed by : [address] [address] MCHC 35.4 32.3 - 35.7 g/dL [place] Comment:Testing performed by : [address] [address] RDW CV 21.6(H) 11.1 - 14.9 % [place] Comment:Testing performed by : [address] [address] RDW SD 65.4(H) 35.7 - 48.1 fL [place] Comment:Testing performed by : [address] [address] NRBC abs 0.07(H) 0.00 - 0.01 K/cumm [facility] SHETTY Comment:Testing performed by : [address] [address] Morphologic Screen Results confirmed by manual morphology review. [place] Comment:Testing performed by : [address] [address] Blood 01/16/2025 2:59 AM CDT 01/16/2025 3:13 AM CDT us Rasta Garcia MD LAB BLOOD ORDERABLES Final Res ult Performing Organization Address [facility] de Phone Number [place] [address] [place] [address] * (ABNORMAL) Reticulocyte Count (01/16/2025 2:59 AM CDT) [facility] Retics, absolute 431(H) 20 - 87 K/cumm Comment:Testing performed by : [address] [address] Retics 18.7(H) 0.4 - 2.9 % [place] Comment:Testing performed by : [address] [address] Reticulocyte Hgb 28.0(L) 30.5 - 38.0 pg [facility] SHETTY Comment:Testing performed by : [address] [address] Blood 01/16/2025 2:59 AM CDT 01/16/2025 3:13 AM CDT Rasta Garcia MD LAB BLOOD ORDERABLES Final Res ult Performing Organization Address [facility] de Phone Number KENYETTA[address] [employer] [place] [address] * (ABNORMAL) Basic metabolic panel (01/16/2025 2:59 AM CDT) Sodium 138 135 - 145 mmol/L Comment:Testing performed by : [facility], [address] [place] [address]., [address] Potassium, pl 3.2(L) 3.3 - 4.9 mmol/L [facility] Comment:Testing performed by : [address], [place]., [address] Chloride 103 97 - 110 mmol/L [facility] Comment:Testing performed by : [address], [place]., [address] CO2 25 22 - 32 mmol/L [facility] Comment:Testing performed by : [address], [place]., [address] Anion gap 10 2 - 15 mmol/L [facility] Comment:Testing performed by : [address], [place]., [address] BUN 3(L) 6 - 25 mg/dL [facility] Comment:Testing performed by : [address], [place]., [address] Creatinine 0.49(L) 0.80 - 1.30 mg/dL [facility] Comment:Testing performed by : [address] [address] Glucose 154 70 - 199 mg/dL [facility] Comment: Interpretive Data Fasting glucose [...] was last revised 2022. Testing performed by: [address] [address] Calcium 8.7 8.5 - 10.3 mg/dL [facility] Comment:Testing performed by : [address], [place]., [address] Blood 01/16/2025 2:59 AM CDT 01/16/2025 3:12 AM CDT us Rasta Garcia MD LAB BLOOD ORDERABLES Final Res ult Performing Organization Address City/[facility] de Phone Number [facility] [address] [facility] Department [place] [address] * (ABNORMAL) Blood smear review (01/15/2025 5:38 AM CDT) RBC morphology Present(A) Comment:Testing performed by : [address] [address] Hypochromasia 3-7/HPF(A) [place] Comment:Testing performed by : [address] [address] Anisocytosis Moderate(A) [facility] Comment:Testing performed by : [address] [address] Schistocytes 1-2/HPF(A) [place] Comment:Testing performed by : [address] [address] Sickle cells 1-2/HPF(A) [place] Comment:Testing performed by : [address] [address] Elliptocytes 8-15/HPF(A) [place] Comment:Testing performed by : [address] [address] Target cells 3-7/HPF(A) [place] Comment:Testing performed by : [address] [address] Acanthocytes 3-7/HPF(A) [place] Comment:Testing performed by : [address] [address] Platelet estimate Adequate [place] Comment:Testing performed by : [address] [address] Blood 01/15/2025 5:38 AM CDT 01/15/2025 6:12 AM CDT us Rasta Garcia MD LAB BLOOD ORDERABLES Final Res ult Performing Organization Address [facility] de Phone Number [facility] [address] [facility] Department [place] [address] * eGFR (01/15/2025 5:38 AM CDT) Pathologist [facility] eGFR >90 >=60 mL/min/1. 73 m2 Comment: [...] was last reviewed 2021. Testing performed by: [address] [address] Blood 01/15/2025 5:38 AM CDT 01/15/2025 6:12 AM CDT us Rasta Garcia MD LAB BLOOD ORDERABLES Final Res ult Performing Organization Address [facility] Co de Phone Number [facility] [address] [facility] Department [place] [address] * (ABNORMAL) Differential, auto (01/15/2025 5:38 AM CDT) Pathologist [facility] Neutrophil abs 3.92 1.50 - 6.50 K/cumm Comment:Testing performed by : [address] [address] Imm gran abs 0.07 0.00 - 0.10 K/cumm [place] Comment:Testing performed by : [address] [place] [address] Lymphocyte abs 3.68(H) 0.80 - 3.30 K/cumm CERNER Comment:Testing performed by : [address] [address] Monocyte abs 0.80 0.20 - 0.80 K/cumm CERALEJANDRA Comment:Testing performed by : [address] [address] Eosinophil abs 0.40 0.00 - 0.50 K/cumm [facility] Comment:Testing performed by : [address], [place]., [address] Basophil abs 0.04 0.00 - 0.10 K/cumm [facility] Comment:Testing performed by : [address] [address] Neutrophil pct 44.0 % [facility] Comment: Interpretive Data Percent cell count reference ranges are not reported, since discordance with absolute values may lead to misinterpretation of CBC data. Current Interpretive Data was last revised on 2017. Testing performed by: [address] [address] Imm gran pct 0.8 % [facility] Comment: Interpretive Data Percent cell count reference ranges are not reported, since discordance with absolute values may lead to misinterpretation of CBC data. Current Interpretive Data was last revised on 2017. Testing performed by: [address] [address] Lymphocyte pct 41.3 % [facility] Comment: Interpretive Data Percent cell count reference ranges are not reported, since discordance with absolute values may lead to misinterpretation of CBC data. Current Interpretive Data was last revised on 2017. Testing performed by: [address] [address] Monocyte pct 9.0 % CERNER Comment: Interpretive Data Percent cell count reference ranges are not reported, since discordance with absolute values may lead to misinterpretation of CBC data. Current Interpretive Data was last revised on 2017. Testing performed by: [address] [address] Eosinophil pct 4.5 % CERNER Comment: Interpretive Data Percent cell count reference ranges are not reported, since discordance with absolute values may lead to misinterpretation of CBC data. Current Interpretive Data was last revised on 2017. Testing performed by: [address] [address] Basophil pct 0.4 % [facility] SHETTY Comment: Interpretive Data Percent cell count reference ranges are not reported, since discordance with absolute values may lead to misinterpretation of CBC data. Current Interpretive Data was last revised on 2017. Testing performed by: [address] [address] Blood 01/15/2025 5:38 AM CDT 01/15/2025 6:12 AM CDT us Rasta Garcia MD LAB BLOOD ORDERABLES Final Res ult [facility] [address] [facility] Department [place] [address] * (ABNORMAL) CBC with auto differential (01/15/2025 5:38 AM CDT) WBC 8.91 3.80 - 9.90 K/cumm Comment:Testing performed by : [address] [address] Hgb 7.3(L) 13.0 - 17.5 g/dL [place] SHETTY Comment:Testing performed by : [address] [address] Hct 21.4(L) 38.9 - 50.3 % [facility] SHETTY Comment:Testing performed by : [address] [address] Plt 316 150 - 400 K/cumm [facility] SHETTY Comment:Testing performed by : [address] [address] MPV 10.1 9.1 - 12.3 fL [place] SHETTY Comment:Testing performed by : [address] [address] RBC 2.46(L) 4.30 - 5.80 M/cumm [place] SHETTY Comment:Testing performed by : [address] [address] MCV 87.0 81.3 - 96.4 fL [place] Comment:Testing performed by : [address] [address] MCH 29.7 27.1 - 33.3 pg [place] Comment:Testing performed by : [address] [address] MCHC 34.1 32.3 - 35.7 g/dL [place] Comment:Testing performed by : [address] [address] RDW CV 21.6(H) 11.1 - 14.9 % [place] Comment:Testing performed by : [address] [address] RDW SD 67.9(H) 35.7 - 48.1 fL [place] Comment:Testing performed by : [address] [address] NRBC abs 0.13(H) 0.00 - 0.01 K/cumm [place] Comment:Testing performed by : [address] [address] Blood 01/15/2025 5:38 AM CDT 01/15/2025 6:12 AM CDT us Rasta Garcia MD LAB BLOOD ORDERABLES Edited Re sharifat - Final [facility] [address] [facility] Department [place] [address] * (ABNORMAL) Reticulocyte Count (01/15/2025 5:38 AM CDT) Retics, absolute 497(H) 20 - 87 K/cumm Comment:Testing performed by : [address] [address] Retics 20.2(H) 0.4 - 2.9 % [place] Comment:Testing performed by : [address] [address] Reticulocyte Hgb 28.3(L) 30.5 - 38.0 pg [place] Comment:Testing performed by : [address] [address] Blood 01/15/2025 5:38 AM CDT 01/15/2025 6:12 AM CDT Rasta Garcia MD LAB BLOOD ORDERABLES Final Res ult [facility] [address] [facility] Department [place] [address] * (ABNORMAL) Basic metabolic panel (01/15/2025 5:38 AM CDT) Sodium 136 135 - 145 mmol/L Comment:Testing performed by : [address] [address] Potassium, pl 3.2(L) 3.3 - 4.9 mmol/L [place] Comment:Testing performed by : [address] [address] Chloride 102 97 - 110 mmol/L [place] Comment:Testing performed by : [address] [address] CO2 24 22 - 32 mmol/L [place] Comment:Testing performed by : [address] [address] Anion gap 10 2 - 15 mmol/L [place] Comment:Testing performed by : [address] [address] BUN 3(L) 6 - 25 mg/dL [place] Comment:Testing performed by : [address] [address] Creatinine 0.44(L) 0.80 - 1.30 mg/dL [place] Comment:Testing performed by : [address] [address] Glucose 116 70 - 199 mg/dL [place] [...] was last revised 2022. Testing performed by: [facility], [address] [place] [address]., [address] Calcium 9.0 8.5 - 10.3 mg/dL [place] SHETTY Comment:Testing performed by : [address] [address] Blood 01/15/2025 5:38 AM CDT 01/15/2025 6:12 AM CDT us Rasta Garcia MD LAB BLOOD ORDERABLES Final Res ult [facility] [address] [facility] Department [place] [address] * eGFR (01/14/2025 6:18 AM CDT) eGFR [...] was last reviewed 2021. Testing performed by: [address] [address] Blood 01/14/2025 6:18 AM CDT 01/14/2025 6:28 AM CDT us Rasta Garcia MD LAB BLOOD ORDERABLES Final Res ult [facility] [address] [facility] Department [place] [address] * Differential, auto (01/14/2025 6:18 AM CDT) Neutrophil abs 4.75 1.50 - 6.50 K/cumm Comment:Testing performed by : [address] [address] Imm gran abs 0.04 0.00 - 0.10 K/cumm [place] Comment:Testing performed by : [address] [address] Lymphocyte abs 3.30 0.80 - 3.30 K/cumm [place] Comment:Testing performed by : [address] [address] Monocyte abs 0.76 0.20 - 0.80 K/cumm [place] Comment:Testing performed by : [address] [address] Eosinophil abs 0.14 0.00 - 0.50 K/cumm [place] Comment:Testing performed by : [address] [address] Basophil abs 0.04 0.00 - 0.10 K/cumm [place] Comment:Testing performed by : [address] [address] Neutrophil pct 52.7 % [facility] Comment: Interpretive Data Percent cell count reference ranges are not reported, since discordance with absolute values may lead to misinterpretation of CBC data. Current Interpretive Data was last revised on 2017. Testing performed by: [address] [address] Imm gran pct 0.4 % [facility] Comment: Interpretive Data Percent cell count reference ranges are not reported, since discordance with absolute values may lead to misinterpretation of CBC data. Current Interpretive Data was last revised on 2017. Testing performed by: [address] [address] Lymphocyte pct 36.5 % [facility] Comment: Interpretive Data Percent cell count reference ranges are not reported, since discordance with absolute values may lead to misinterpretation of CBC data. Current Interpretive Data was last revised on 2017. Testing performed by: [address] [address] Monocyte pct 8.4 % [facility] Comment: Interpretive Data Percent cell count reference ranges are not reported, since discordance with absolute values may lead to misinterpretation of CBC data. Current Interpretive Data was last revised on 2017. Testing performed by: [address] [address] Eosinophil pct 1.6 % [facility] Comment: Interpretive Data Percent cell count reference ranges are not reported, since discordance with absolute values may lead to misinterpretation of CBC data. Current Interpretive Data was last revised on 2017. Testing performed by: [address] [address] Basophil pct 0.4 % [facility] Comment: Interpretive Data Percent cell count reference ranges are not reported, since discordance with absolute values may lead to misinterpretation of CBC data. Current Interpretive Data was last revised on 2017. Testing performed by: [address] [address] Blood 01/14/2025 6:18 AM CDT 01/14/2025 6:28 AM CDT us Rasta Garcia MD LAB BLOOD ORDERABLES Final Res ult [facility] SHETTY [address] [facility] Department [place] [address] * (ABNORMAL) CBC with auto differential (01/14/2025 6:18 AM CDT) WBC 9.03 3.80 - 9.90 K/cumm Comment:Testing performed by : [address] [address] Hgb 7.5(L) 13.0 - 17.5 g/dL [place] Comment:Testing performed by : [address] [address] Hct 21.8(L) 38.9 - 50.3 % [place] Comment:Testing performed by : [address] [address] Plt 287 150 - 400 K/cumm [place] Comment:Testing performed by : [address] [address] MPV 10.1 9.1 - 12.3 fL [place] Comment:Testing performed by : [address] [address] RBC 2.47(L) 4.30 - 5.80 M/cumm [place] Comment:Testing performed by : [address] [address] MCV 88.3 81.3 - 96.4 fL [place] Comment:Testing performed by : [address] [address] MCH 30.4 27.1 - 33.3 pg [place] Comment:Testing performed by : [address] [address] MCHC 34.4 32.3 - 35.7 g/dL [place] Comment:Testing performed by : [address] [address] RDW CV 22.0(H) 11.1 - 14.9 % [place] Comment:Testing performed by : [address], [address] RDW SD 69.9(H) 35.7 - 48.1 fL [place] Comment:Testing performed by : [address] [address] NRBC abs 0.18(H) 0.00 - 0.01 K/cumm [place] Comment:Testing performed by : [address] [address] Morphologic Screen Results confirmed by manual morphology review. [place] Comment:Testing performed by : [address] [address] Blood 01/14/2025 6:18 AM CDT 01/14/2025 6:28 AM CDT Rasta Garcia MD LAB BLOOD ORDERABLES Edited Re sult - Final Performing Organization Address [facility] Co de Phone Number [address] [employer] [place] [address] * (ABNORMAL) Reticulocyte Count (01/14/2025 6:18 AM CDT) Pathologist [facility] Retics, absolute 537(H) 20 - 87 K/cumm Comment:Testing performed by : [address] [address] Retics 21.5(H) 0.4 - 2.9 % [place] Comment:Testing performed by : [address] [address] Reticulocyte Hgb 28.4(L) 30.5 - 38.0 pg [place] Comment:Testing performed by : [address] [address] Blood 01/14/2025 6:18 AM CDT 01/14/2025 6:28 AM CDT us Rasta Garcia MD LAB BLOOD ORDERABLES Final Res ult Performing Organization Address [facility] de Phone Number [address] [employer] [place] [address] * (ABNORMAL) Basic metabolic panel (01/14/2025 6:18 AM CDT) [facility] Sodium 137 135 - 145 mmol/L Comment:Testing performed by : [address] [address] Potassium, pl 3.5 3.3 - 4.9 mmol/L [place] Comment:Testing performed by : [address] [address] Chloride 103 97 - 110 mmol/L [place] Comment:Testing performed by : [address] [address] CO2 24 22 - 32 mmol/L [place] Comment:Testing performed by : [address] [address] Anion gap 10 2 - 15 mmol/L [place] Comment:Testing performed by : [address] [address] BUN 2(L) 6 - 25 mg/dL [place] Comment:Testing performed by : [address] [address] Creatinine 0.45(L) 0.80 - 1.30 mg/dL [place] Comment:Testing performed by : [address] [address] Glucose 141 70 - 199 mg/dL [place] [...] was last revised 2022. Testing performed by: [address] [address] Calcium 8.8 8.5 - 10.3 mg/dL [place] Comment:Testing performed by : [address] [address] Blood 01/14/2025 6:18 AM CDT 01/14/2025 6:28 AM CDT us Rasta Garcia MD LAB BLOOD ORDERABLES Final Res ult [facility] [address] [facility] Department [place] [address] * XR Chest PA Lateral 2 Views [...] Gee Laboy D.O. AP: AP Report ID: [id number] Reading Location: [place] [address] Procedure Note Gee Laboy, DO - 01/11/2025 [...] Gee Laboy D.O. AP: AP Report ID: [id number] Reading Location: [place] [address] us Casey Paz MD IMG XR PROCEDURES [...] was last reviewed 2021. Testing performed by: [facility], [address] [place] [address]., [address] Blood 01/11/2025 1:12 PM CDT 01/11/2025 1:15 PM CDT us Rasta Garcia MD LAB BLOOD ORDERABLES Final Res ult [facility] [address] [facility] Department [place] [address] * (ABNORMAL) CBC with auto differential (01/11/2025 1:12 PM CDT) [facility] WBC 10.21(H) 3.80 - 9.90 K/cumm Comment:Testing performed by : [address] [address] Hgb 8.3(L) 13.0 - 17.5 g/dL [place] Comment:Testing performed by : [address], [address] Hct 24.3(L) 38.9 - 50.3 % [place] Comment:Testing performed by : [address], [address] Plt 379 150 - 400 K/cumm [place] Comment:Testing performed by : [address] [address] MPV 9.9 9.1 - 12.3 fL [place] Comment:Testing performed by : [address], [address] RBC 2.82(L) 4.30 - 5.80 M/cumm [place] Comment:Testing performed by : [address], [address] MCV 86.2 81.3 - 96.4 fL [place] Comment:Testing performed by : [address] [address] MCH 29.4 27.1 - 33.3 pg [place] Comment:Testing performed by : [address], [address] MCHC 34.2 32.3 - 35.7 g/dL [place] Comment:Testing performed by : [address], [address] RDW CV 23.4(H) 11.1 - 14.9 % [place] Comment:Testing performed by : [address] [address] RDW SD 70.7(H) 35.7 - 48.1 fL [place] Comment:Testing performed by : [address], [address] NRBC abs 0.23(H) 0.00 - 0.01 K/cumm [place] Comment:Testing performed by : [address] [address] Blood 01/11/2025 1:12 PM CDT 01/11/2025 1:15 PM CDT Rasta Garcia MD LAB BLOOD ORDERABLES Edited Re sharifat - Final [facility] [address] [facility] Department [place] [address] * (ABNORMAL) Manual Differential (01/11/2025 1:12 PM CDT) Differential Manual Comment:Testing performed by : [address] [address] Cells Counted 100 [place] Comment:Testing performed by : [address] [address] Neutrophil abs 4.90 1.50 - 6.50 K/cumm [place] Comment:Testing performed by : [address] [address] Lymphocyte abs 4.39(H) 0.80 - 3.30 K/cumm [place] Comment:Testing performed by : [address] [address] Monocyte abs 0.51 0.20 - 0.80 K/cumm [place] Comment:Testing performed by : [address] [address] Eosinophil abs 0.41 0.00 - 0.50 K/cumm [place] Comment:Testing performed by : [address] [address] Neutrophil pct 48.0 % [facility] Comment: Interpretive Data Percent cell count reference ranges are not reported, since discordance with absolute values may lead to misinterpretation of CBC data. Current Interpretive Data was last revised on 2017. Testing performed by: [address] [address] Lymphocyte pct 43.0 % [facility] Comment: Interpretive Data Percent cell count reference ranges are not reported, since discordance with absolute values may lead to misinterpretation of CBC data. Current Interpretive Data was last revised on 2017. Testing performed by: [address], [place]., [address] Monocyte pct 5.0 % [facility] Comment: Interpretive Data Percent cell count reference ranges are not reported, since discordance with absolute values may lead to misinterpretation of CBC data. Current Interpretive Data was last revised on 2017. Testing performed by: [address], [place]., [address] Eosinophil pct 4.0 % [facility] Comment: Interpretive Data Percent cell count reference ranges are not reported, since discordance with absolute values may lead to misinterpretation of CBC data. Current Interpretive Data was last revised on 2017. Testing performed by: [address], [place]., [address] RBC morphology Present(A) [place] Comment:Testing performed by : [address], [place]., [address] Polychromasia 3-7/HPF(A) [place] Comment:Testing performed by : [address], [place]., [address] Anisocytosis Marked(A) [place] Comment:Testing performed by : [address], [place]., [address] Sickle cells 1-2/HPF(A) [place] Comment:Testing performed by : [address], [place]., [address] Elliptocytes 8-15/HPF(A) [place] Comment:Testing performed by : [address], [place]., [address] Teardrop cells 3-7/HPF(A) [place] Comment:Testing performed by : [address], [place]., [address] Platelet morphology Normal [place] Comment:Testing performed by : [address], [place]., [address] Platelet estimate Adequate [place] Comment:Testing performed by : [address] [address] Blood 01/11/2025 1:12 PM CDT 01/11/2025 1:15 PM CDT Rasta Garcia MD LAB BLOOD ORDERABLES Final Res ult Performing Organization Address [facility] Co de Phone Number KEN[facility]ETTA[facility]ANDR[facility] [place] [address] * (ABNORMAL) Reticulocyte Count (01/11/2025 1:12 PM CDT) Retics, absolute 585(H) 20 - 87 K/cumm Comment:Testing performed by : [address] [address] Retics 20.8(H) 0.4 - 2.9 % [place] SHETTY Comment:Testing performed by : [address] [address] Reticulocyte Hgb 30.1(L) 30.5 - 38.0 pg [place] Comment:Testing performed by : [address] [address] Blood 01/11/2025 1:12 PM CDT 01/11/2025 1:15 PM CDT us Rasta Garcia MD LAB BLOOD ORDERABLES Final Res ult Performing Organization Address [facility] Co de Phone Number [place] [place] [address] * (ABNORMAL) Basic metabolic panel (01/11/2025 1:12 PM CDT) Sodium 138 135 - 145 mmol/L Comment:Testing performed by : [address] [address] Potassium, pl 3.7 3.3 - 4.9 mmol/L [place] SHETTY Comment:Testing performed by : [address] [address] Chloride 103 97 - 110 mmol/L [place] SHETTY Comment:Testing performed by : [address] [address] CO2 24 22 - 32 mmol/L [place] Comment:Testing performed by : [address] [address] Anion gap 11 2 - 15 mmol/L [place] Comment:Testing performed by : [address] [address] BUN 2(L) 6 - 25 mg/dL [place] Comment:Testing performed by : [address] [address] Creatinine 0.50(L) 0.80 - 1.30 mg/dL [place] Comment:Testing performed by : [address] [address] Glucose 110 70 - 199 mg/dL [place] [...] was last revised 2022. Testing performed by: [address] [address] Calcium 8.7 8.5 - 10.3 mg/dL [place] Comment:Testing performed by : [address] [address] Blood 01/11/2025 1:12 PM CDT 01/11/2025 1:15 PM CDT us Rasta Garcia MD LAB BLOOD ORDERABLES Final Res ult [place] SHETTY [address] [facility] Department of Laboratories [place], [place] [id number] * XR Chest 1 View (01/10/2025 1:39 [...] Anne Merchant M.D. FT: FT Report ID: [id number] Reading Location: [id number] Procedure Note Anne Hernandes MD - 01/10/2025 [...] Anne Merchant M.D. FT: FT Report ID: [id number] Reading Location: [id number] Jaya Garcia DO IMG XR PROCEDURES Final [...] was last reviewed 2021. Testing performed by: [address] [address] Blood 01/10/2025 10:2 9 AM CDT 01/10/2025 10:53 AM CDT us Rasta Garcia MD LAB BLOOD ORDERABLES Final Res ult [facility] [address] [facility] Department [place] [address] * (ABNORMAL) Differential, auto (01/10/2025 10:29 AM CDT) Pathologist [facility] Neutrophil abs 4.63 1.50 - 6.50 K/cumm Comment:Testing performed by : [address] [address] Imm gran abs 0.08 0.00 - 0.10 K/cumm [place] Comment:Testing performed by : [address] [address] Lymphocyte abs 4.22(H) 0.80 - 3.30 K/cumm [place] Comment:Testing performed by : [address] [address] Monocyte abs 0.96(H) 0.20 - 0.80 K/cumm [place] Comment:Testing performed by : [address], [place]., [address] Eosinophil abs 0.20 0.00 - 0.50 K/cumm [place] Comment:Testing performed by : [address], [place]., [address] Basophil abs 0.06 0.00 - 0.10 K/cumm [place] Comment:Testing performed by : [address] [address] Neutrophil pct 45.5 % [facility] Comment: Interpretive Data Percent cell count reference ranges are not reported, since discordance with absolute values may lead to misinterpretation of CBC data. Current Interpretive Data was last revised on 2017. Testing performed by: [address] [address] Imm gran pct 0.8 % [place] Comment: Interpretive Data Percent cell count reference ranges are not reported, since discordance with absolute values may lead to misinterpretation of CBC data. Current Interpretive Data was last revised on 2017. Testing performed by: [address] [address] Lymphocyte pct 41.6 % [facility] Comment: Interpretive Data Percent cell count reference ranges are not reported, since discordance with absolute values may lead to misinterpretation of CBC data. Current Interpretive Data was last revised on 2017. Testing performed by: [address] [address] Monocyte pct 9.5 % [place] Comment: Interpretive Data Percent cell count reference ranges are not reported, since discordance with absolute values may lead to misinterpretation of CBC data. Current Interpretive Data was last revised on 2017. Testing performed by: [address] [address] Eosinophil pct 2.0 % [place] Comment: Interpretive Data Percent cell count reference ranges are not reported, since discordance with absolute values may lead to misinterpretation of CBC data. Current Interpretive Data was last revised on 2017. Testing performed by: [address] [address] Basophil pct 0.6 % [place] SHETTY Comment: Interpretive Data Percent cell count reference ranges are not reported, since discordance with absolute values may lead to misinterpretation of CBC data. Current Interpretive Data was last revised on 2017. Testing performed by: [address] [address] Blood 01/10/2025 10:2 9 AM CDT 01/10/2025 10:52 AM CDT us Rasta Garcia MD LAB BLOOD ORDERABLES Final Res ult [place] [address] [facility] Department [place] [address] * (ABNORMAL) CBC with auto differential (01/10/2025 10:29 AM CDT) WBC 10.15(H) 3.80 - 9.90 K/cumm Comment:Testing performed by : [address] [address] Hgb 7.5(L) 13.0 - 17.5 g/dL [facility] Comment:Testing performed by : [address] [address] Hct 22.0(L) 38.9 - 50.3 % [facility] Comment:Testing performed by : [address] [address] Plt 324 150 - 400 K/cumm [facility] Comment:Testing performed by : [address] [address] MPV 10.3 9.1 - 12.3 fL [facility] Comment:Testing performed by : [address] [address] RBC 2.51(L) 4.30 - 5.80 M/cumm [facility] Comment:Testing performed by : [address] [address] MCV 87.6 81.3 - 96.4 fL [facility] Comment:Testing performed by : [address] [address] MCH 29.9 27.1 - 33.3 pg [facility] Comment:Testing performed by : [address] [address] MCHC 34.1 32.3 - 35.7 g/dL [facility] Comment:Testing performed by : [address] [address] RDW CV 22.9(H) 11.1 - 14.9 % [facility] Comment:Testing performed by : [address], [address] RDW SD 69.4(H) 35.7 - 48.1 fL [facility] Comment:Testing performed by : [address] [address] NRBC abs 0.15(H) 0.00 - 0.01 K/cumm [facility] Comment:Testing performed by : [address] [address] Morphologic Screen Results confirmed by manual morphology review. [facility] Comment:Testing performed by : [address], [address] Blood 01/10/2025 10:2 9 AM CDT 01/10/2025 10:52 AM CDT us Rasta Garcia MD LAB BLOOD ORDERABLES Edited Re sult - Final [facility] [address] [facility] Department of Laboratories [place], [place] [id number] * (ABNORMAL) Reticulocyte Count (01/10/2025 10:29 AM CDT) Retics, absolute 624(H) 20 - 87 K/cumm Comment:Testing performed by : [address], [address] Retics 21.5(H) 0.4 - 2.9 % [facility] SHETT[facility] Comment:Testing performed by : [address] [address] Reticulocyte Hgb 28.1(L) 30.5 - 38.0 pg [facility] Comment:Testing performed by : [address] [address] Blood 01/10/2025 10:2 9 AM CDT 01/10/2025 10:52 AM CDT us Rasta Garcia MD LAB BLOOD ORDERABLES Final Res ult [facility] 4500 [facility] Department [place] [address] * (ABNORMAL) Basic metabolic panel (01/10/2025 10:29 AM CDT) Sodium 138 135 - 145 mmol/L Comment:Testing performed by : [address] [address] Potassium, pl 3.5 3.3 - 4.9 mmol/L [facility] Comment:Testing performed by : [address] [address] Chloride 104 97 - 110 mmol/L [facility] Comment:Testing performed by : [address] [address] CO2 24 22 - 32 mmol/L [facility] Comment:Testing performed by : [address] [address] Anion gap 10 2 - 15 mmol/L [facility] Comment:Testing performed by : [address] [address] BUN 2(L) 6 - 25 mg/dL [facility] Comment:Testing performed by : [address] [address] Creatinine 0.50(L) 0.80 - 1.30 mg/dL [facility] Comment:Testing performed by : [address] [address] Glucose 98 70 - 199 mg/dL [facility] [...] was last revised 2022. Testing performed by: [address] [address] Calcium 8.4(L) 8.5 - 10.3 mg/dL [facility] Comment:Testing performed by : [address] [address] Blood 01/10/2025 10:2 9 AM CDT 01/10/2025 10:53 AM CDT us Rasta Garcia MD LAB BLOOD ORDERABLES Final Res ult [facility] [address] [facility] Department [place] [address] * (ABNORMAL) Differential, auto (01/09/2025 4:55 AM CDT) Neutrophil abs 4.56 1.50 - 6.50 K/cumm Comment:Testing performed by : [address] [address] Imm gran abs 0.05 0.00 - 0.10 K/cumm [facility] Comment:Testing performed by : [address] [address] Lymphocyte abs 3.68(H) 0.80 - 3.30 K/cumm [facility] Comment:Testing performed by : [address] [address] Monocyte abs 1.48(H) 0.20 - 0.80 K/cumm [facility] Comment:Testing performed by : [address] [address] Eosinophil abs 0.24 0.00 - 0.50 K/cumm [facility] Comment:Testing performed by : [address] [address] Basophil abs 0.06 0.00 - 0.10 K/cumm [facility] Comment:Testing performed by : [address] [address] Neutrophil pct 45.3 % [facility] Comment: Interpretive Data Percent cell count reference ranges are not reported, since discordance with absolute values may lead to misinterpretation of CBC data. Current Interpretive Data was last revised on 2017. Testing performed by: [address] [address] Imm gran pct 0.5 % [facility] Comment: Interpretive Data Percent cell count reference ranges are not reported, since discordance with absolute values may lead to misinterpretation of CBC data. Current Interpretive Data was last revised on 2017. Testing performed by: [address] [address] Lymphocyte pct 36.5 % [facility] Comment: Interpretive Data Percent cell count reference ranges are not reported, since discordance with absolute values may lead to misinterpretation of CBC data. Current Interpretive Data was last revised on 2017. Testing performed by: [address] [address] Monocyte pct 14.7 % [facility] Comment: Interpretive Data Percent cell count reference ranges are not reported, since discordance with absolute values may lead to misinterpretation of CBC data. Current Interpretive Data was last revised on 2017. Testing performed by: [address] [address] Eosinophil pct 2.4 % [facility] Comment: Interpretive Data Percent cell count reference ranges are not reported, since discordance with absolute values may lead to misinterpretation of CBC data. Current Interpretive Data was last revised on 2017. Testing performed by: [address] [address] Basophil pct 0.6 % [facility] Comment: Interpretive Data Percent cell count reference ranges are not reported, since discordance with absolute values may lead to misinterpretation of CBC data. Current Interpretive Data was last revised on 2017. Testing performed by: [address] [address] Blood 01/09/2025 4:55 AM CDT 01/09/2025 4:59 AM CDT us Rasta Garcia MD LAB BLOOD ORDERABLES Final Res ult [facility] [facility] Department [place] [address] * (ABNORMAL) CBC with auto differential (01/09/2025 4:55 AM CDT) WBC 10.07(H) 3.80 - 9.90 K/cumm Comment:Testing performed by : [address] [address] Hgb 7.3(L) 13.0 - 17.5 g/dL [facility] Comment:Testing performed by : [address] [address] Hct 21.4(L) 38.9 - 50.3 % [facility] Comment:Testing performed by : [address] [address] Plt 285 150 - 400 K/cumm [facility] Comment:Testing performed by : [address] [address] MPV 10.1 9.1 - 12.3 fL [facility] Comment:Testing performed by : [address] [address] RBC 2.44(L) 4.30 - 5.80 M/cumm [facility] Comment:Testing performed by : [address] [address] MCV 87.7 81.3 - 96.4 fL [facility] Comment:Testing performed by : [address] [address] MCH 29.9 27.1 - 33.3 pg [facility] Comment:Testing performed by : [address] [address] MCHC 34.1 32.3 - 35.7 g/dL [facility] Comment:Testing performed by : [address] [address] RDW CV 22.1(H) 11.1 - 14.9 % [facility] Comment:Testing performed by : [address] [address] RDW SD 67.3(H) 35.7 - 48.1 fL [facility] Comment:Testing performed by : [address] [address] NRBC abs 0.19(H) 0.00 - 0.01 K/cumm [facility] Comment:Testing performed by : [address] [address] Morphologic Screen Results confirmed by manual morphology review. [facility] Comment:Testing performed by : [address] [address] Blood 01/09/2025 4:55 AM CDT 01/09/2025 4:59 AM CDT us Rasta Garcia MD LAB BLOOD ORDERABLES Final Res ult [facility] 8[address] [facility] Department of Laboratories [place], [place] [id number] * (ABNORMAL) Reticulocyte Count (01/09/2025 4:55 AM CDT) Retics, absolute 566(H) 20 - 87 K/cumm Comment:Testing performed by : [address] [address] Retics 23.2(H) 0.4 - 2.9 % [facility] Comment:Testing performed by : [address] [address] Reticulocyte Hgb 28.1(L) 30.5 - 38.0 pg [facility] Comment:Testing performed by : [address] [address] Blood 01/09/2025 4:55 AM CDT 01/09/2025 4:59 AM CDT us Rasta Garcia MD LAB BLOOD ORDERABLES Final Res ult Performing Organization Address [facility] Co de Phone Number [facility] [address] [place] [address] * eGFR (01/09/2025 4:50 AM CDT) eGFR [...] was last reviewed 2021. Testing performed by: [address] [address] Blood 01/09/2025 4:50 AM CDT 01/09/2025 4:59 AM CDT us Rasta Garcia MD LAB BLOOD ORDERABLES Final Res ult Performing Organization Address City/[facility]/ZIP Co de Phone Number [facility] [address] [place] [address] * (ABNORMAL) Basic metabolic panel (01/09/2025 4:50 AM CDT) Sodium 137 135 - 145 mmol/L Comment:Testing performed by : [address] [address] Potassium, pl 3.9 3.3 - 4.9 mmol/L [facility] Comment:Testing performed by : [address] [address] Chloride 102 97 - 110 mmol/L [facility] Comment:Testing performed by : [address] [address] CO2 23 22 - 32 mmol/L [facility] Comment:Testing performed by : [address] [address] Anion gap 12 2 - 15 mmol/L [facility] Comment:Testing performed by : [address] [address] BUN 4(L) 6 - 25 mg/dL [facility] Comment:Testing performed by : [address] [address] Creatinine 0.56(L) 0.80 - 1.30 mg/dL [facility] Comment:Testing performed by : [address] [address] Glucose 109 70 - 199 mg/dL [facility] Comment: Interpretive Data Fasting glucose [...] was last revised 2022. Testing performed by: [address] [address] Calcium 8.8 8.5 - 10.3 mg/dL [facility] Comment:Testing performed by : [address] [address] Blood 01/09/2025 4:50 AM CDT 01/09/2025 4:59 AM CDT us Rasta Garcia MD LAB BLOOD ORDERABLES Final Res ult [facility] 9[address] [facility] Department [place] [address] * CT Abdomen Pelvis WO Contrast (01/08/2025 [...] Anival Cotton M.D. NS: NS Report ID: [id number] Reading Location: [id number] Procedure Note Anival Cotton MD - 01/08/2025 [...] Anival Cotton M.D. NS: NS Report ID: [id number] Reading Location: [id number] Jaya Garcia DO IMG CT PROCEDURES Final [...] was last reviewed 2021. Testing performed by: [facility], [address] [place] [address], [place]., [address] Blood 01/07/2025 10:4 8 AM CDT 01/07/2025 11:07 AM CDT us Rasta Garcia MD LAB BLOOD ORDERABLES Final Res ult [facility] 03[address] [facility] Department of Laboratories [place], [place] [id number] * (ABNORMAL) CBC with auto differential (01/07/2025 10:48 AM CDT) WBC 8.71 3.80 - 9.90 K/cumm Comment:Testing performed by : [address] [address] Hgb 8.0(L) 13.0 - 17.5 g/dL [facility] Comment:Testing performed by : [address] [address] Hct 23.2(L) 38.9 - 50.3 % [facility] Comment:Testing performed by : [address] [address] Plt 324 150 - 400 K/cumm [facility] Comment:Testing performed by : [address] [address] MPV 10.3 9.1 - 12.3 fL [facility] Comment:Testing performed by : [address] [address] RBC 2.58(L) 4.30 - 5.80 M/cumm [facility] Comment:Testing performed by : [address] [address] MCV 89.9 81.3 - 96.4 fL [facility] Comment:Testing performed by : [address] [address] MCH 31.0 27.1 - 33.3 pg [facility] Comment:Testing performed by : [address] [address] MCHC 34.5 32.3 - 35.7 g/dL [facility] Comment:Testing performed by : [address] [address] RDW CV 21.6(H) 11.1 - 14.9 % [facility] Comment:Testing performed by : [address] [address] RDW SD 68.9(H) 35.7 - 48.1 fL [facility] Comment:Testing performed by : [address] [address] NRBC abs 0.26(H) 0.00 - 0.01 K/cumm [facility] Comment:Testing performed by : [address] [address] Blood 01/07/2025 10:4 8 AM CDT 01/07/2025 11:07 AM CDT us Jaya Garcia DO LAB BLOOD ORDERABLES Edited Resu lt - Final [facility] [address] [facility] Department [place] [address] * (ABNORMAL) Manual Differential (01/07/2025 10:48 AM CDT) Differential Manual Comment:Testing performed by : [address] [address] Cells Counted 100 [facility] Comment:Testing performed by : [address] [address] Neutrophil abs 3.92 1.50 - 6.50 K/cumm [facility] Comment:Testing performed by : [address] [address] Lymphocyte abs 4.44(H) 0.80 - 3.30 K/cumm [facility] Comment:Testing performed by : [address] [address] Monocyte abs 0.26 0.20 - 0.80 K/cumm [facility] Comment:Testing performed by : [address] [address] Eosinophil abs 0.09 0.00 - 0.50 K/cumm [facility] Comment:Testing performed by : [address] [address] Neutrophil pct 45.0 % [facility] Comment: Interpretive Data Percent cell count reference ranges are not reported, since discordance with absolute values may lead to misinterpretation of CBC data. Current Interpretive Data was last revised on 2017. Testing performed by: [address] [address] Lymphocyte pct 51.0 % [facility] Comment: Interpretive Data Percent cell count reference ranges are not reported, since discordance with absolute values may lead to misinterpretation of CBC data. Current Interpretive Data was last revised on 2017. Testing performed by: [address] [address] Monocyte pct 3.0 % [facility] Comment: Interpretive Data Percent cell count reference ranges are not reported, since discordance with absolute values may lead to misinterpretation of CBC data. Current Interpretive Data was last revised on 2017. Testing performed by: [address], [place]., [address] Eosinophil pct 1.0 % [facility] Comment: Interpretive Data Percent cell count reference ranges are not reported, since discordance with absolute values may lead to misinterpretation of CBC data. Current Interpretive Data was last revised on 2017. Testing performed by: [address], [place]., [address] RBC morphology Present(A) [facility] Comment:Testing performed by : [address] [address] Anisocytosis Marked(A) [facility] Comment:Testing performed by : [address] [address] Sickle cells 1-2/HPF(A) [facility] Comment:Testing performed by : [address], [place]., [address] Elliptocytes 3-7/HPF(A) [facility] Comment:Testing performed by : [address], [place]., [address] Target cells 3-7/HPF(A) [facility] Comment:Testing performed by : [address], [place]., [address] Platelet morphology Normal [facility] Comment:Testing performed by : [address] [address] Platelet estimate Adequate [facility] Comment:Testing performed by : [address] [address] Blood 01/07/2025 10:4 8 AM CDT 01/07/2025 11:07 AM CDT us Jaya Garcia DO LAB BLOOD ORDERABLES Final Resul t Performing Organization Address [facility] de Phone Number [address] [place] [address] * (ABNORMAL) Reticulocyte Count (01/07/2025 10:48 AM CDT) Retics, absolute 559(H) 20 - 87 K/cumm Comment:Testing performed by : [address] [address] Retics 20.7(H) 0.4 - 2.9 % [facility] Comment:Testing performed by : [address] [address] Reticulocyte Hgb 28.5(L) 30.5 - 38.0 pg [facility] Comment:Testing performed by : [address] [address] Blood 01/07/2025 10:4 8 AM CDT 01/07/2025 11:07 AM CDT us Rasta Garcia MD LAB BLOOD ORDERABLES Final Res ult Performing Organization Address [facility] de Phone Number [address] [address] * (ABNORMAL) Basic metabolic panel (01/07/2025 10:48 AM CDT) Sodium 141 135 - 145 mmol/L Comment:Testing performed by : [address] [address] Potassium, pl 3.3 3.3 - 4.9 mmol/L [facility] Comment:Testing performed by : [address] [address] Chloride 104 97 - 110 mmol/L [facility] Comment:Testing performed by : [address] [address] CO2 25 22 - 32 mmol/L [facility] Comment:Testing performed by : [address] [address] Anion gap 12 2 - 15 mmol/L [facility] Comment:Testing performed by : [address] [address] BUN 2(L) 6 - 25 mg/dL [facility] Comment:Testing performed by : [address] [address] Creatinine 0.50(L) 0.80 - 1.30 mg/dL [facility] Comment:Testing performed by : [address] [address] Glucose 162 70 - 199 mg/dL [facility] [...] was last revised 2022. Testing performed by: [address] [address] Calcium 8.6 8.5 - 10.3 mg/dL [facility] Comment:Testing performed by : [address] [address] Blood 01/07/2025 10:4 8 AM CDT 01/07/2025 11:07 AM CDT us Rasta Garcia MD LAB BLOOD ORDERABLES Final Res ult [facility] [address] [facility] Department of Laboratories [place], [place] [id number] * eGFR (01/06/2025 6:52 AM CDT) eGFR [...] was last reviewed 2021. Testing performed by: [address] [address] Blood 01/06/2025 6:52 AM CDT 01/06/2025 7:14 AM CDT us Rasta Garcia MD LAB BLOOD ORDERABLES Final Res ult [facility] 50[address] [facility] Department of Laboratories [place], [place] [id number] * (ABNORMAL) Basic metabolic panel (01/06/2025 6:52 AM CDT) Sodium 139 135 - 145 mmol/L Comment:Testing performed by : [address] [address] Potassium, pl 3.7 3.3 - 4.9 mmol/L [facility] Comment:Testing performed by : [address] [address] Chloride 103 97 - 110 mmol/L [facility] Comment:Testing performed by : [address] [address] CO2 23 22 - 32 mmol/L [facility] Comment:Testing performed by : [address] [address] Anion gap 13 2 - 15 mmol/L [facility] Comment:Testing performed by : [address] [address] BUN 2(L) 6 - 25 mg/dL [facility] Comment:Testing performed by : [address] [address] Creatinine 0.50(L) 0.80 - 1.30 mg/dL [facility] Comment:Testing performed by : [address] [address] Glucose 95 70 - 199 mg/dL [facility] [...] was last revised 2022. Testing performed by: [address] [address] Calcium 8.6 8.5 - 10.3 mg/dL [facility] Comment:Testing performed by : [address] [address] Blood 01/06/2025 6:52 AM CDT 01/06/2025 7:14 AM CDT us Rasta Garcia MD LAB BLOOD ORDERABLES Final Res ult [facility] [address] [facility] Department of Laboratories [place], [place] [id number] * eGFR (01/04/2025 7:27 AM CDT) eGFR [...] was last reviewed 2021. Testing performed by: [address] [address] Blood 01/04/2025 7:27 AM CDT 01/04/2025 7:34 AM CDT us Rasta Garcia MD LAB BLOOD ORDERABLES Final Res ult [facility] 0[address] [facility] Department [place] [address] * (ABNORMAL) CBC with auto differential (01/04/2025 7:27 AM CDT) WBC 10.50(H) 3.80 - 9.90 K/cumm Comment:Testing performed by : [address] [address] Hgb 8.4(L) 13.0 - 17.5 g/dL [facility] Comment:Testing performed by : [address] [address] Hct 25.3(L) 38.9 - 50.3 % [facility] Comment:Testing performed by : [address] [address] Plt 299 150 - 400 K/cumm [facility] Comment:Testing performed by : [address] [address] MPV 9.8 9.1 - 12.3 fL [facility] Comment:Testing performed by : [address] [address] RBC 2.76(L) 4.30 - 5.80 M/cumm [facility] Comment:Testing performed by : [address] [address] MCV 91.7 81.3 - 96.4 fL [facility] Comment:Testing performed by : [address] [address] MCH 30.4 27.1 - 33.3 pg [facility] Comment:Testing performed by : [address] [address] MCHC 33.2 32.3 - 35.7 g/dL [facility] Comment:Testing performed by : [address] [address] RDW CV 23.3(H) 11.1 - 14.9 % [facility] Comment:Testing performed by : [address] [address] RDW SD 74.0(H) 35.7 - 48.1 fL [facility] Comment:Testing performed by : [address] [address] NRBC abs 0.21(H) 0.00 - 0.01 K/cumm [facility] Comment:Testing performed by : [address] [address] Blood 01/04/2025 7:27 AM CDT 01/04/2025 7:34 AM CDT us Rasta Garcia MD LAB BLOOD ORDERABLES Edited Re cindi - Final [facility] [address] [facility] Department [place] [address] * (ABNORMAL) Manual Differential (01/04/2025 7:27 AM CDT) Differential Manual Comment:Testing performed by : [address] [address] Cells Counted 100 [facility] Comment:Testing performed by : [address], [place]., [address] Neutrophil abs 3.26 1.50 - 6.50 K/cumm [facility] Comment:Testing performed by : [address], [place]., [address] Lymphocyte abs 5.88(H) 0.80 - 3.30 K/cumm [facility] Comment:Testing performed by : [address], [place]., [address] Monocyte abs 0.63 0.20 - 0.80 K/cumm [facility] Comment:Testing performed by : [address], [place]., [address] Eosinophil abs 0.53(H) 0.00 - 0.50 K/cumm [facility] Comment:Testing performed by : [address], [place]., [address] Basophil abs 0.21(H) 0.00 - 0.10 K/cumm [facility] Comment:Testing performed by : [address] [address] Neutrophil pct 31.0 % [facility] Comment: Interpretive Data Percent cell count reference ranges are not reported, since discordance with absolute values may lead to misinterpretation of CBC data. Current Interpretive Data was last revised on 2017. Testing performed by: [address] [address] Lymphocyte pct 56.0 % [facility] Comment: Interpretive Data Percent cell count reference ranges are not reported, since discordance with absolute values may lead to misinterpretation of CBC data. Current Interpretive Data was last revised on 2017. Testing performed by: [address] [address] Monocyte pct 6.0 % [facility] Comment: Interpretive Data Percent cell count reference ranges are not reported, since discordance with absolute values may lead to misinterpretation of CBC data. Current Interpretive Data was last revised on 2017. Testing performed by: [address], [place]., [address] Eosinophil pct 5.0 % [facility] Comment: Interpretive Data Percent cell count reference ranges are not reported, since discordance with absolute values may lead to misinterpretation of CBC data. Current Interpretive Data was last revised on 2017. Testing performed by: [facility], [address] [place] [address], [place]., [address] Basophil pct 2.0 % [facility] Comment: Interpretive Data Percent cell count reference ranges are not reported, since discordance with absolute values may lead to misinterpretation of CBC data. Current Interpretive Data was last revised on 2017. Testing performed by: [address], [place]., [address] Vacuolation Present(A) [facility] Comment:Testing performed by : [address], [place]., [address] RBC morphology Present(A) [facility] Comment:Testing performed by : [address], [place]., [address] Polychromasia 3-7/HPF(A) [facility] Comment:Testing performed by : [address], [place]., [address] Anisocytosis Marked(A) [facility] Comment:Testing performed by : [address], [place]., [address] Macrocytes 3-7/HPF(A) [facility] Comment:Testing performed by : [address], [place]., [address] Schistocytes 1-2/HPF(A) [facility] Comment:Testing performed by : [address], [place]., [address] Sickle cells 3-7/HPF(A) [facility] Comment:Testing performed by : [address], [place]., [address] Platelet estimate Adequate [facility] Comment:Testing performed by : [address], [place]., [address] Giant platelets Present(A) [facility] Comment:Testing performed by : [address], [place]., [address] Blood 01/04/2025 7:27 AM CDT 01/04/2025 7:34 AM CDT us Rasta Garcia MD LAB BLOOD ORDERABLES Final Res ult Performing Organization Address [facility] Co de Phone Number [facility] [address] [address] * (ABNORMAL) Reticulocyte Count (01/04/2025 7:27 AM CDT) Pathologist [facility] Retics, absolute 532(H) 20 - 87 K/cumm Comment:Testing performed by : [address] [address] Retics 19.3(H) 0.4 - 2.9 % [facility]TT[facility] Comment:Testing performed by : [address] [address] Reticulocyte Hgb 34.7 30.5 - 38.0 pg [facility] Comment:Testing performed by : [address] [address] Blood 01/04/2025 7:27 AM CDT 01/04/2025 7:34 AM CDT us Ratsa Garcia MD LAB BLOOD ORDERABLES Final Res ult Performing Organization Address [facility] de Phone Number [address] [place] [address] * (ABNORMAL) Basic metabolic panel (01/04/2025 7:27 AM CDT) [facility] [facility] Sodium 137 135 - 145 mmol/L Comment:Testing performed by : [address] [address] Potassium, pl 3.5 3.3 - 4.9 mmol/L [place] SHETTY Comment:Testing performed by : [address] [address] Chloride 100 97 - 110 mmol/L [place] SHETTY Comment:Testing performed by : [address] [address] CO2 25 22 - 32 mmol/L [place] Comment:Testing performed by : [address] [address] Anion gap 12 2 - 15 mmol/L [place] Comment:Testing performed by : [address] [address] BUN 2(L) 6 - 25 mg/dL [place] Comment:Testing performed by : [address] [address] Creatinine 0.49(L) 0.80 - 1.30 mg/dL [place] Comment:Testing performed by : [address] [address] Glucose 106 70 - 199 mg/dL [place] [...] was last revised 2022. Testing performed by: [address] [address] Calcium 9.1 8.5 - 10.3 mg/dL [place] Comment:Testing performed by : [address] [address] Blood 01/04/2025 7:27 AM CDT 01/04/2025 7:34 AM CDT us Rasta Garcia MD LAB BLOOD ORDERABLES Final Res ult [facility] [address] [facility] Department [place] [address] * (ABNORMAL) Blood smear review (01/03/2025 7:30 AM CDT) RBC morphology Present(A) Comment:Testing performed by : [facility] [address] [place] [address], [place]., [address] Polychromasia 3-7/HPF(A) [place] Comment:Testing performed by : [address], [place]., [address] Anisocytosis Slight(A) [place] Comment:Testing performed by : [address], [place]., [address] Poikilocytosis Slight(A) [place] Comment:Testing performed by : [address], [place]., [address] Sickle cells 1-2/HPF(A) [place] Comment:Testing performed by : [address], [place]., [address] Elliptocytes 3-7/HPF(A) [place] Comment:Testing performed by : [address], [place]., [address] Target cells 3-7/HPF(A) [place] Comment:Testing performed by : [address], [place]., [address] Platelet estimate Adequate [place] Comment:Testing performed by : [address], [place]., [address] Blood 01/03/2025 7:30 AM CDT 01/03/2025 7:44 AM CDT us Rasta Garcia MD LAB BLOOD ORDERABLES Final Res ult Performing Organization Address City/State/[facility] Co de Phone Number [facility] [address] [facility] Department of Laboratories [place], [place] [id number] * eGFR (01/03/2025 7:30 AM CDT) eGFR [...] was last reviewed 2021. Testing performed by: [address] [address] Blood 01/03/2025 7:30 AM CDT 01/03/2025 7:44 AM CDT us Rasta Garcia MD LAB BLOOD ORDERABLES Final Res ult [facility] Department [place] [address] * (ABNORMAL) Differential, auto (01/03/2025 7:30 AM CDT) Neutrophil abs 5.76 1.50 - 6.50 K/cumm Comment:Testing performed by : [address] [address] Imm gran abs 0.13(H) 0.00 - 0.10 K/cumm [place] Comment:Testing performed by : [address] [address] Lymphocyte abs 3.10 0.80 - 3.30 K/cumm [place] Comment:Testing performed by : [address] [address] Monocyte abs 0.98(H) 0.20 - 0.80 K/cumm [place] Comment:Testing performed by : [address] [address] Eosinophil abs 0.21 0.00 - 0.50 K/cumm [place] Comment:Testing performed by : [address] [address] Basophil abs 0.07 0.00 - 0.10 K/cumm [place] Comment:Testing performed by : [address] [address] Neutrophil pct 56.2 % [place] Comment: Interpretive Data Percent cell count reference ranges are not reported, since discordance with absolute values may lead to misinterpretation of CBC data. Current Interpretive Data was last revised on 2017. Testing performed by: [address] [address] Imm gran pct 1.3 % [facility] Comment: Interpretive Data Percent cell count reference ranges are not reported, since discordance with absolute values may lead to misinterpretation of CBC data. Current Interpretive Data was last revised on 2017. Testing performed by: [address] [address] Lymphocyte pct 30.2 % [facility] Comment: Interpretive Data Percent cell count reference ranges are not reported, since discordance with absolute values may lead to misinterpretation of CBC data. Current Interpretive Data was last revised on 2017. Testing performed by: [address] [address] Monocyte pct 9.6 % [facility] Comment: Interpretive Data Percent cell count reference ranges are not reported, since discordance with absolute values may lead to misinterpretation of CBC data. Current Interpretive Data was last revised on 2017. Testing performed by: [address] [address] Eosinophil pct 2.0 % [facility] Comment: Interpretive Data Percent cell count reference ranges are not reported, since discordance with absolute values may lead to misinterpretation of CBC data. Current Interpretive Data was last revised on 2017. Testing performed by: [address] [address] Basophil pct 0.7 % [facility] Comment: Interpretive Data Percent cell count reference ranges are not reported, since discordance with absolute values may lead to misinterpretation of CBC data. Current Interpretive Data was last revised on 2017. Testing performed by: [address] [address] Blood 01/03/2025 7:30 AM CDT 01/03/2025 7:44 AM CDT us Rasta Garcia MD LAB BLOOD ORDERABLES Final Res ult [place] [address] [facility] Department [place] [address] * (ABNORMAL) CBC with auto differential (01/03/2025 7:30 AM CDT) WBC 10.25(H) 3.80 - 9.90 K/cumm Comment:Testing performed by : [address] [address] Hgb 7.7(L) 13.0 - 17.5 g/dL [place] Comment:Testing performed by : [address] [address] Hct 22.5(L) 38.9 - 50.3 % [place] Comment:Testing performed by : [address] [address] Plt 350 150 - 400 K/cumm [place] Comment:Testing performed by : [address] [address] MPV 10.1 9.1 - 12.3 fL [place] Comment:Testing performed by : [address] [address] RBC 2.55(L) 4.30 - 5.80 M/cumm [place] Comment:Testing performed by : [address] [address] MCV 88.2 81.3 - 96.4 fL [place] Comment:Testing performed by : [address] [address] MCH 30.2 27.1 - 33.3 pg [place] SHETT[facility] Comment:Testing performed by : [address] [address] MCHC 34.2 32.3 - 35.7 g/dL [place] SHETT[facility] Comment:Testing performed by : [address] [address] RDW CV 22.1(H) 11.1 - 14.9 % [place] Comment:Testing performed by : [address] [address] RDW SD 67.4(H) 35.7 - 48.1 fL [place] SHETTY Comment:Testing performed by : [address] [address] NRBC abs 0.35(H) 0.00 - 0.01 K/cumm [place] Comment:Testing performed by : [address] [address] Blood 01/03/2025 7:30 AM CDT 01/03/2025 7:44 AM CDT us Rasta Garcia MD LAB BLOOD ORDERABLES Edited Re sult - Final Performing Organization Address [facility] Co de Phone Number [place] [address] [place] [address] * (ABNORMAL) Reticulocyte Count (01/03/2025 7:30 AM CDT) Retics, absolute 471(H) 20 - 87 K/cumm Comment:Testing performed by : [address] [address] Retics 18.5(H) 0.4 - 2.9 % [place] Comment:Testing performed by : [address] [address] Reticulocyte Hgb 31.1 30.5 - 38.0 pg [place] Comment:Testing performed by : [address] [address] Blood 01/03/2025 7:30 AM CDT 01/03/2025 7:44 AM CDT us Rasta Garcia MD LAB BLOOD ORDERABLES Final Res ult Performing Organization Address [facility]/ZIP Co de Phone Number [place] [facility] [place] [address] * (ABNORMAL) Basic metabolic panel (01/03/2025 7:30 AM CDT) Sodium 138 135 - 145 mmol/L Comment:Testing performed by : [address] [address] Potassium, pl 3.5 3.3 - 4.9 mmol/L [place] Comment:Testing performed by : [address] [address] Chloride 101 97 - 110 mmol/L [place] Comment:Testing performed by : [address], [place]., [address] CO2 26 22 - 32 mmol/L [place] Comment:Testing performed by : [address] [address] Anion gap 11 2 - 15 mmol/L [place] Comment:Testing performed by : [address] [address] BUN <2(L) 6 - 25 mg/dL [place] Comment:Testing performed by : [address] [address] Creatinine 0.50(L) 0.80 - 1.30 mg/dL [place] Comment:Testing performed by : [address] [address] Glucose 106 70 - 199 mg/dL [facility] Comment: Interpretive Data Fasting glucose >/= 126 [...] was last revised 2022. Testing performed by: [address] [address] Calcium 8.8 8.5 - 10.3 mg/dL [place] Comment:Testing performed by : [address] [address] Blood 01/03/2025 7:30 AM CDT 01/03/2025 7:44 AM CDT Rasta Garcia MD LAB BLOOD ORDERABLES Final Res ult Performing Organization Address [facility] de Phone Number [place] [address] [place] [address] * Troponin T high-sensitivity 4-hour (01/01/2025 4:09 AM CDT) Trop T hs <6 <=22 ng/L Comment: Interpretive Data For further hscTnT resources including the diagnostic algorithm and an aid in interpretation, copy and paste this link: https://nrl.testcatalog.org/show/hsTrop Current Interpretive Data last revised 2020. Testing performed by: [address] [address] Trop T hs delta -2 ng/L [place] Comment:Testing performed by : [facility], [address] [place] [address]., [address] Trop T hs interp Insignificant [place] Comment:Testing performed by : [address] [address] Blood 01/01/2025 4:09 AM CDT 01/01/2025 4:16 AM CDT Bill Carrasquillo DO LAB BLOOD ORDERABLES Final Res ult Performing Organization Address [facility] Co de Phone Number [facility] [address] [place] [address] * XR Chest 1 Vw Portable (01/01/2025 [...] Andrew Stubbs M.D. AR: TOREY Report ID: [id number] Reading Location: [place] [address] Procedure Note Andrew Stubbs MD - 01/01/2025 [...] Andrew Stubbs M.D. AR: TOREY Report ID: [id number] Reading Location: [place] [address] Bill Carrasquillo DO IMG XR PROCEDURES Final Result * Troponin T high-sensitivity series (baseline, 2hr, 4hr, 6hr) (12/31/2024 11:57 PM CDT) Trop T hs 8 <=22 ng/L Comment: Interpretive Data For further hscTnT resources including the diagnostic algorithm and an aid in interpretation, copy and paste this link: https://nrl.testcatalog.org/show/hsTrop Current Interpretive Data last revised 2020. Testing performed by: [address] [address] Blood 12/31/2024 11:5 7 PM CDT 01/01/2025 12:09 AM CDT us Bill Carrasquillo DO LAB BLOOD ORDERABLES Final Res ult [place] [address] [facility] Department [place] [address] * eGFR (12/31/2024 11:57 PM [...] was last reviewed 2021. Testing performed by: [address] [address] Blood 12/31/2024 11:5 7 PM CDT 01/01/2025 12:09 AM CDT us Billfernando Mantillaik DO LAB BLOOD ORDERABLES Final Res ult [place] [address] [facility] Department of Laboratories [place], [place] [id number] * (ABNORMAL) Differential, auto (12/31/2024 11:57 PM CDT) Neutrophil abs 6.19 1.50 - 6.50 K/cumm Comment:Testing performed by : [address] [address] Imm gran abs 0.07 0.00 - 0.10 K/cumm [place] Comment:Testing performed by : [address] [address] Lymphocyte abs 4.31(H) 0.80 - 3.30 K/cumm [place] Comment:Testing performed by : [address] [address] Monocyte abs 1.49(H) 0.20 - 0.80 K/cumm [place] Comment:Testing performed by : [address] [address] Eosinophil abs 0.14 0.00 - 0.50 K/cumm [place] Comment:Testing performed by : [address] [address] Basophil abs 0.08 0.00 - 0.10 K/cumm [place] Comment:Testing performed by : [address] [address] Neutrophil pct 50.4 % [place] Comment: Interpretive Data Percent cell count reference ranges are not reported, since discordance with absolute values may lead to misinterpretation of CBC data. Current Interpretive Data was last revised on 2017. Testing performed by: [address] [address] Imm gran pct 0.6 % [place] Comment: Interpretive Data Percent cell count reference ranges are not reported, since discordance with absolute values may lead to misinterpretation of CBC data. Current Interpretive Data was last revised on 2017. Testing performed by: [address] [address] Lymphocyte pct 35.1 % [place] Comment: Interpretive Data Percent cell count reference ranges are not reported, since discordance with absolute values may lead to misinterpretation of CBC data. Current Interpretive Data was last revised on 2017. Testing performed by: [address] [address] Monocyte pct 12.1 % [place] Comment: Interpretive Data Percent cell count reference ranges are not reported, since discordance with absolute values may lead to misinterpretation of CBC data. Current Interpretive Data was last revised on 2017. Testing performed by: [address] [address] Eosinophil pct 1.1 % [place] Comment: Interpretive Data Percent cell count reference ranges are not reported, since discordance with absolute values may lead to misinterpretation of CBC data. Current Interpretive Data was last revised on 2017. Testing performed by: [address] [address] Basophil pct 0.7 % [place] Comment: Interpretive Data Percent cell count reference ranges are not reported, since discordance with absolute values may lead to misinterpretation of CBC data. Current Interpretive Data was last revised on 2017. Testing performed by: [address] [address] Blood 12/31/2024 11:5 7 PM CDT 01/01/2025 12:09 AM CDT us Bill Carrasquillo DO LAB BLOOD ORDERABLES Final Res ult [facility] [address] [facility] Department [place] [address] * (ABNORMAL) CBC with auto differential (12/31/2024 11:57 PM CDT) WBC 12.28(H) 3.80 - 9.90 K/cumm Comment:Testing performed by : [address] [address] Hgb 7.8(L) 13.0 - 17.5 g/dL [place] Comment:Testing performed by : [address] [address] Hct 23.2(L) 38.9 - 50.3 % [place] Comment:Testing performed by : [address] [address] Plt 277 150 - 400 K/cumm [place] Comment:Testing performed by : [address] [address] MPV 10.0 9.1 - 12.3 fL [place] Comment:Testing performed by : [address] [address] RBC 2.65(L) 4.30 - 5.80 M/cumm [place] Comment:Testing performed by : [address] [address] MCV 87.5 81.3 - 96.4 fL [place] Comment:Testing performed by : [address] [address] MCH 29.4 27.1 - 33.3 pg [place] Comment:Testing performed by : [address] [address] MCHC 33.6 32.3 - 35.7 g/dL [place] Comment:Testing performed by : [address] [address] RDW CV 20.6(H) 11.1 - 14.9 % [place] Comment:Testing performed by : [address] [address] RDW SD 64.0(H) 35.7 - 48.1 fL [place] Comment:Testing performed by : [address] [address] NRBC abs 0.06(H) 0.00 - 0.01 K/cumm [place] Comment:Testing performed by : [address] [address] Morphologic Screen Results confirmed by manual morphology review. [place] Comment:Testing performed by : [address], [address] Blood 12/31/2024 11:5 7 PM CDT 01/01/2025 12:09 AM CDT Bill Carrasquillo LAB BLOOD ORDERABLES Final Res ult Performing Organization Address [facility] Co de Phone Number [place] [address] [address] * (ABNORMAL) Reticulocyte Count (12/31/2024 11:57 PM CDT) Pathologist [facility] Retics, absolute 410(H) 20 - 87 K/cumm Comment:Testing performed by : [address] [address] Retics 15.5(H) 0.4 - 2.9 % [place] SHETTY Comment:Testing performed by : [address] [address] Reticulocyte Hgb 30.8 30.5 - 38.0 pg [place] SHETT[place] Comment:Testing performed by : [address] [address] Blood 12/31/2024 11:5 7 PM CDT 01/01/2025 12:09 AM CDT Bill Carrasquillo DO LAB BLOOD ORDERABLES Final Res ult Performing Organization Address [facility] de Phone Number [address] [address] * (ABNORMAL) Comprehensive metabolic panel (12/31/2024 11:57 PM CDT) [facility] Sodium 137 135 - 145 mmol/L Comment:Testing performed by : [address] [address] Potassium, pl 3.2(L) 3.3 - 4.9 mmol/L [place] SHETT[place] Comment:Testing performed by : [address] [address] Chloride 103 97 - 110 mmol/L [place] [facility]TT[place] Comment:Testing performed by : [address] [address] CO2 23 22 - 32 mmol/L [place] [facility] Comment:Testing performed by : [address] [address] Anion gap 11 2 - 15 mmol/L [facility] Comment:Testing performed by : [address] [address] BUN 4(L) 6 - 25 mg/dL [facility] Comment:Testing performed by : [address] [address] Creatinine 0.60(L) 0.80 - 1.30 mg/dL [facility] Comment:Testing performed by : [address] [address] Glucose 115 70 - 199 mg/dL [facility] Comment: Interpretive Data Fasting glucose [...] was last revised 2022. Testing performed by: [address] [address] Calcium 9.1 8.5 - 10.3 mg/dL [facility] Comment:Testing performed by : [address] [address] Bilirubin, total 5.6(H) 0.1 - 1.2 mg/dL [facility] Comment:Testing performed by : [address] [address] Protein, pl 7.9 6.5 - 8.5 g/dL [facility] Comment:Testing performed by : [address] [address] Albumin 4.1 3.5 - 5.0 g/dL [facility] Comment:Testing performed by : [address] [address] Alk phos 353(H) 40 - 130 Units/L [facility] Comment:Testing performed by : [facility], [address] [place] [address]., [address] ALT 27 7 - 55 Units/L [place] Comment:Testing performed by : [facility], [address] [place] [address]., [address] AST 53(H) 10 - 50 Units/L [place] SHETTY Comment:Testing performed by : [address] [address] Blood 12/31/2024 11:5 7 PM CDT 01/01/2025 12:09 AM CDT Bill Carrasquillo DO LAB BLOOD ORDERABLES Final Res ult Performing Organization Address City/[facility]/ZIP Co de Phone Number [place] [address] [facility] Department [place] [address] * ECG 12 lead (12/31/2024 11:51 PM CDT) Pathologist [facility] Ventricular Rate EKG/Min 107 BPM [facility] Atrial Rate 107 BPM [facility] [place]-Interval (MSEC) 178 ms [facility] QRS-Interval (MSEC) 80 ms [facility] QT-Interval (MSEC) 344 ms [facility] QTc 459 ms [facility] P [place] 51 degrees [facility] R [place] 4 degrees [facility] T [place] 15 degrees [facility] Diagnosis Sinus tachycardia Otherwise normal ECG When compared with ECG of 22-DEC-2024 13:08, Nonspecific T wave abnormality no longer evident in Lateral leads Confirmed by Rodrigue Fonseca M.D. ([id number]) on 01/03/2025 8:51:05 AM [facility] 12/31/2024 11:5 1 PM CDT 01/03/2025 8:51 AM CDT Bill Carrasquillo DO ECG ORDERABLES Final Result Performing Organization Address City/[facility]/ZIP Co de Phone Number [facility] * Hepatitis C antibody Blood (08/29/2023 9:51 PM CDT) Pathologist [facility] Hep C Ab Nonreactive Nonreactive Comment:Antibodies to HCV no t detected. Does NOT exclude the possibility of recent exposure to HCV. Current interpretive data was last revised on 22 Blood 08/29/2023 9:51 PM CDT 08/29/2023 10:10 PM CDT us Gordo Soliz MD LAB MICROBIOLOGY - GENE RAL ORDERABLES Final Result [place] [facility] [place] [address] from Last 3 Months or Most Recently Relevant to Health Maintenance Insurance [facility] [employer] [place] [place] Advance Directives For more information, please contact: [phone] Documents on File Type Date Recorded Patient Candy Separator Hard Expl anation ADVANCE DIRECTIVE 02/16/2025 8:54 AM Power of Principal Investigator-Medical * Full Code (Latest Code Status on File) Date Activated Date Inactivated Comments 02/15/2025 12:28 PM 02/24/2025 5:02 PM * Full Code Date Activated Date Inactivated Comments 01/01/2025 4:20 AM 01/18/2025 5:24 PM * Full Code Date Activated Date Inactivated Comments 12/08/2024 3:58 AM 12/09/2024 2:55 PM * Full Code Date Activated Date Inactivated Comments 11/01/2024 1:11 PM 11/09/2024 4:40 PM * Full Code Date Activated Date Inactivated Comments 10/05/2024 2:42 PM 10/19/2024 5:43 PM Care Teams Paramedical Aide Relationship Specialty Start Date End Date Laurent Gonzalez MD [address] [place] [address] PCP - General Hematology and Oncology 10/18/23 Ray Sainz MD [address] [place], [place] [address] [facility] [address] [place] [address] 02/10/20 [place] [address] [address] [facility] [address] [place] [address] Consulting Physician Family Medicine 05/05/22 Miscellaneous, Not In File 12/14/22 [place] [address] [address] [facility] [address] [place] [address] Consulting Physician Orthopedic Surgery 08/18/24
--- OUTSIDE RECORDS SUMMARY | 2025-03-31 16:15 | XMS_ITS | Clinical Summary ---
Author Organization [facility] Facility Address [address] [address] Care Team Providers Care Last Chalker Name Role Phone Laurent Gonzalez MD Primary Care Provider [phone] Social History Tobacco Use Types Packs/Day Years [...] Vaccine (#1) 2025 1, 05/03/2009, 05/03/2009 Insurance [employer] [place] ([id number]) Care Teams Last Chalker Relationship Specialty Start Date End Date Laurent Gonzalez MD PCP - General Hematology 11/08/24
--- OUTSIDE RECORDS SUMMARY | 2025-03-31 16:15 | XMS_ITS | CCD ---
Author Name Interface, [address] Address More breakthroughs. More victories. [address] Oncology Address 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
--- OUTSIDE RECORDS SUMMARY | 2025-03-31 16:15 | XMS_ITS | Encounter Summary ---
Author Organization [facility] Healthcare Address [address] [place] [address] Care Team Providers Care Cnc Operator Name Role Phone Ray Sainz MD Unavailable [phone] Miscellaneous, Not In File Primary Care Provider Unavailable Laurent Gonzalez MD Primary Care Provider [phone] Gordo Herrera MD Unavailable [phone] Travis Richards MD Primary Care Provider [phone] Miscellaneous, Not In File Unavailable Unava ilable Daily Cooper MD Primary Care Provider [phone] Laurent Gonzalez MD Primary Care Provider [phone] Mariam Hedrick Unavailable Unavailable Ning Lowery DNP Unavailable [phone] Mairam Hedrick Unavailable Unavailable Ning Lowery DNP Unavailable [phone] Ana Duran RN Unavailable [phone] Areli Zuniga Unavailable Unavailable Ning Lowery DNP Unavailable [phone] Tobin Terrell MD Unavailable [phone] Encounter Details Date Type Department Care Team (Late st Contact Info) Description 11/22/2020 Documentation [facility] Case Management [address] [place] [address] Roula Llanos MSW Social History Tobacco Use Types Packs/Day Years Used Date Smoking Tobacco: Never Smokeless Tobacco: Never Alcohol Use Standard Drinks/Week Comments Not Currently 0 (1 standard drink = 0.6 oz pur e alcohol) Sex and Gender Information Value Date Recorded Sex Assigned at Not on file Legal Sex Male 10:50 AM COMPUTER SYSTEMS DESIGN ANALYST Gender Identity Male 12/06/2024 9:44 PM CDT Sexual Orientation Straight 12/06/2024 9: 44 PM CDT documented as of this encounter Functional Status * Fall Risk Assessment Tool - MEDFRAT Question Answer Date of Assessment Author History of falling in last 3 months, including since admission 0 11/22/2020 9:56 AM CDT Gardenia Cantu RN Confusion or disorientation 0 11/22/2020 9: 56 AM CDT Gardenia Muse RN Intoxicated or sedated 0 11/22/2020 9:56 AM ROBERTOT Gardenia Muse RN Impaired gait 0 11/22/2020 9:56 AM CDT Gardenia Douglas RN Mobility assist device used 0 11/22/2020 9: 56 AM CDT Gardenia Muse RN Altered elimination 0 11/22/2020 9:56 AM CD T Gardenia Muse RN Fall risk score: (1-2 low ri sk), (3-4 moderate risk), (5 or more high risk) 0 11/22/2020 9:56 AM CDT Gardenia Muse RN * Question Answer Date of Assessment Author BP Location Left arm 11/22/2020 9:55 AM ROBERTOT Papa Acevedo RN BP Method Automatic 11/22/2020 9:55 AM CDT Papa Acevedo RN documented as of this encounter Miscellaneous Notes * Plan of Care - Roula Llanos MSW - 11/22/2020 12:01 PM CDT DIMITRI was able to fill patient prescription under [facility] fund. Roula Llanos LMSW [phone] documented in this encounter Plan of Treatment [...] no antipyretics, immunocompetent pt. Flag removed. Talat Day [phone] 02/09/2023 02/09/2023 02/12/2023 11 :55 AM CDT COVID: Recovered 02/12/2023 02/12/2023 05/13/2023 3:05 AM COMPUTER SYSTEMS DESIGN ANALYST COVID: Suspected 04/27/2023 04/27/2023 04/27/2023 4:11 AM COMPUTER SYSTEMS DESIGN ANALYST COVID: Suspected 06/26/2023 06/26/2023 06/26/2023 11:44 PM COMPUTER SYSTEMS DESIGN ANALYST Diarrhea 06/26/2023 06/26/2023 07/10/2023 3:05 AM COMPUTER SYSTEMS DESIGN ANALYST C. difficile suspected 08/30/2023 08/30/202308/30 2:37 PM CDT COVID: Suspected 10/08/2023 10/08/2023 10/08/2023 3:27 PM CDT COVID: Suspected 10/08/2023 10/08/2023 10/08/2023 6:12 PM CDT COVID: Suspected Comment:Negative panel 10/17/2023 10/17/2023 10/23/2023 12:21 PM CDT C. difficile suspected 10/18/2023 10/18/202310/19 10:05 PM CDT COVID: Suspected Comment:Negative test. 10/27/2023 Anival Lundbergbeatriz 10/26/2023 10/26/2023 10/27/2023 8:28 AM C DT [...] COVID: Suspected 03/30/2024 03/30/2024 03/30/2024 1:29 PM COMPUTER SYSTEMS DESIGN ANALYST C. difficile suspected 05/12/2024 05/14/202405/14 7:10 AM COMPUTER SYSTEMS DESIGN ANALYST COVID: Suspected 05/29/2024 05/29/2024 05/29/2024 10:06 PM COMPUTER SYSTEMS DESIGN ANALYST COVID: Suspected 07/24/2024 07/24/2024 07/24/2024 5:44 AM COMPUTER SYSTEMS DESIGN ANALYST Norovirus suspected 07/24/2024 07/24/2024 07/30/19 3:05 AM COMPUTER SYSTEMS DESIGN ANALYST C. difficile suspected 07/24/2024 07/24/202407/29 3:05 AM COMPUTER SYSTEMS DESIGN ANALYST COVID: Suspected 08/13/2024 08/13/2024 08/13/2024 1:30 PM CDT COVID: Suspected 11/01/2024 11/01/2024 11/01/2024 2:39 PM CDT Ring Surveillance: C. auris 11/08/2024 11/08/202411/15/2024 7:26 PM CDT COVID: Suspected 12/23/2024 12/23/2024 12/23/2024 5:12 PM CDT COVID: Suspected 02/15/2025 02/15/2025 02/15/2025 2:26 PM CDT documented as of this encounter Care Teams Cnc Operator Relationship Specialty Start Date End Date Miscellaneous, Not In File PCP - General 11/22/20 11/20/21 Laurent Gonzalez MD [address] [place] [address] PCP - General 11/21/21 08/11/22 Travis Richards MD [address] [place] [address] PCP - General Pediatric Hematology and Oncology 08/12/22 12/18/22 Daily Cooper MD [address] [place] [address] PCP - General Internal Medicine 12/19/22 10/17/23 Laurent Gonzalez MD [address] [place] [address] PCP - General Hematology and Oncology 10/18/23 Ray Sainz MD [address] [facility] [address] [place] [address] 02/10/20 [place] [address] [facility] [address] [place] [address] Consulting Physician Family Medicine 05/05/22 Miscellaneous, Not In File 12/14/22 Mariam Hedrick Outpatient Store Operations Manager 03/31/24 04/04/24 Ning Lowery DNP [address] [facility] [address] [place] [address] Nurse Practitioner Internal Medicine 03/31/24 04/04/24 Mariam Hedrick Outpatient Store Operations Manager 05/31/24 08/15/24 Ning Lowery DNP [address] [facility] [address] [place] [address] Nurse Practitioner Internal Medicine 05/31/24 08/15/24 Ana Duran, BOUCHRA [address] [facility] [address] [place] [address] [facility] Outpatient Store Operations Manager 07/29/24 08/02/24 Areli Zuniga Outpatient Store Operations Manager 08/16/24 09/23/24 Ning Lowery DNP [address] [facility] [address] [place] [address] Nurse Practitioner Internal Medicine 08/16/24 09/23/24 [place] [address] [facility] [address] [place] [address] Consulting Physician Orthopedic Surgery 08/18/24 documented as of this encounter
--- OUTSIDE RECORDS SUMMARY | 2025-03-31 16:16 | XMS_ITS | CCD ---
Author Name Interface, [address] Address More breakthroughs. More victories. [address] Oncology Address [place] breakthroughs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
--- OUTSIDE RECORDS SUMMARY | 2025-03-31 16:16 | XMS_ITS | Encounter Summary ---
Author Organization [employer] [facility] Address [address] [place] [address] Care Team Providers Care Ross Furnace Operator Name Role Phone Unavailable Primary Care Provider Unavailabl e Encounter Details Date Type Department Care Team (Late st Contact Info) Description 03/29/2025 External Device Data STL ABSTRACTION Provider, Abstract [...] worry about transportation for future doctor visits, tile picker medication, etc.? No 2024 Housing Stability Answer [...] on file Legal Sex Male 7:02 AM ORTHO NURSE Gender Identity Not on file Sexual Orientation Not on file documented as of this encounter Plan of Treatment Not on file documented as of this encounter Visit Diagnoses Not on filedocumented in this encounter Additional Health Concerns Assessment Noted Time PHQ-9 Depression Total Score: 1 12/10/19 25 8:00 PM CDT documented as of this encounter
--- OUTSIDE RECORDS SUMMARY | 2025-03-31 16:16 | XMS_ITS | Clinical Summary ---
Author Organization [facility] Address [address] [place] [address] Phone Care Team Providers Care Transformer Assembly Supervisor Name Role Phone Unavailable Primary Care [...] mouth daily. Active naloxone (NARCAN) 4 mg/spray [place], Non-Aerosol EMERGENCY USE ONLY: Administer 1 spray (4 mg) in one nostril one time. May repeat in alternating nostrils every 2-3 min until responsive or EMS arrives. 2 Each 3 09/08/19 25 Active oxyCODONE-acet aminophen (PERCOCET) 10-325 mg TabletIndicati ons:Sickle cell pain crisis (CMS/HCC) Take 3 Tablets by mouth every 8 hours as needed for severe pain for up to 11 days. Max Daily Amount: 9 Tablets. 99 Tablet 5 1:11 PM BUSINESS PROGRAMMER 03/30/20 25 025 Active oxyCODONE-acet aminophen (PERCOCET) 10-325 mg TabletIndicati ons:Sickle cell crisis (CMS/HCC) Take 3 Tablets by mouth every 8 hours as needed for Pain, Severe. .Max Daily Amount: 9 Tablets 21 Tablet 6:21 PM CDT 10/30/19 25 025 Discontinued oxyCODONE-acet aminophen (PERCOCET) 10-325 mg Tablet Take 1 (one) tablet by mouth every 6 hours as needed for Pain 10 Tablet 10:41 AM CDT 02/14/20 25 025 Discontinued Active Problems Problem Noted Date [...] Encounters Date Type Department Care Team Description 03/29/2025 External Device Data STL ABSTRACTION Provider, Abstract 03/22/2025 External Device Data ST[facility] ABSTRACTION Provider, Abstract 03/19/2025 Travel 03/18/2025 7:15 PM CDT - 03/30/2025 1:20 PM BUSINESS PROGRAMMER Hospital Encounter [facility] Oncology [address] [place] [id number] Adore Quinonez MD Padgett, Sabrina, MD Hua, Winnie, DO Hawatmeh, Shady, MD Sickle cell pain crisis ([facility]) Discharge Disposition: Home or Self Care 03/01/2025 External Device Data STL ABSTRACTION Provider, Abstract [...] worry about transportation for future doctor visits, fern picker medication, etc.? No 2024 Housing Stability [...] on file Legal Sex Male 7:02 AM BUSINESS PROGRAMMER Gender Identity Not on file Sexual Orientation Not on file Last Filed Vital Signs Vital Sign Reading Time Taken Comments Blood Pressure 132/86 03/30/2025 12:22 PM BUSINESS PROGRAMMER Pulse 77 03/30/2025 12:22 PM BUSINESS PROGRAMMER Temperature 36.7 C (98.1 F) 03/30/2025 12:22 PM BUSINESS PROGRAMMER Respiratory Rate 22 03/30/2025 12:22 PM BUSINESS PROGRAMMER Oxygen Saturation 98% 03/30/2025 12:22 PM BUSINESS PROGRAMMER Inhaled Oxygen Concentration - - Weight 106.6 kg (235 lb) 03/21/2025 6:06 PM CDT Height 177.8 cm (5' 10) 03/21/2025 6:06 PM CDT Body Mass Index 33.72 03/21/2025 6:06 PM CDT Plan of Treatment Health Maintenance [...] history exists Medical Devices Implanted Type Area Music Librarian Device Identifier Shelf Expiration Date Model / Serial / Lot Core Decompression Procedure Kit Pro Dense Implanted:Qty: 1 on 06/30/2022 by Gordo Suazo MD at [facility] Left: Hip [employer] [id number] 04/28/2027 [id number] / / [id number] Description:Requisition # [id number]. Procedures Procedure Name Priority Date/Time Associated Diagnosis Comments DIFFERENTIAL, MANUAL Routine 03/29/2025 9:19 PM BUSINESS PROGRAMMER RETICULOCYTES Routine 03/29/2025 9:19 PM BUSINESS PROGRAMMER BASIC METABOLIC PANEL Routine 03/29/2025 9:19 PM BUSINESS PROGRAMMER CBC WITH DIFFERENTIAL Routine 03/29/2025 9:19 PM BUSINESS PROGRAMMER DIFFERENTIAL, MANUAL Stat 03/27/2025 3:34 PM BUSINESS PROGRAMMER RETICULOCYTES Stat 03/27/2025 3:34 PM BUSINESS PROGRAMMER CBC WITH DIFFERENTIAL Stat 03/27/2025 3:34 PM BUSINESS PROGRAMMER ECHO COMPLETE Routine 03/26/2025 12:20 PM CDT RETICULOCYTES Routine 03/26/2025 11:43 AM CDT CBC WITHOUT DIFFERENTIAL Routine 03/26/2025 11:43 AM CDT BASIC METABOLIC PANEL Routine 03/26/2025 11:43 AM CDT RETICULOCYTES Stat 03/25/2025 1:31 PM CDT CBC WITHOUT DIFFERENTIAL Stat 03/25/2025 1:31 PM CDT BASIC METABOLIC PANEL Stat 03/25/2025 1:31 PM CDT TROPONIN Routine 03/25/2025 1:31 PM CDT EKG 12-LEAD Stat 03/25/2025 10:46 AM CDT XR CHEST PA OR AP 1 VW Stat 6:34 AM CDT DIFFERENTIAL, MANUAL Routine 03/24/2025 12:08 PM CDT TSH Routine 03/24/2025 12:08 PM CDT RETICULOCYTES Routine 03/24/2025 12:08 PM CDT CBC WITH DIFFERENTIAL Routine 03/24/2025 12:08 PM CDT BASIC METABOLIC PANEL Routine 03/24/2025 12:08 PM CDT DIFFERENTIAL, MANUAL Routine 03/23/2025 5:23 AM CDT RETICULOCYTES Routine 03/23/2025 5:23 AM CDT COMPREHENSIVE METABOLIC PANEL Routine 03/23/2025 5:23 AM CDT CBC WITH DIFFERENTIAL Routine 03/23/2025 5:23 AM CDT TYPE AND SCREEN Routine 03/22/2025 8:24 PM CDT PREPARE RED BLOOD CELLS Routine 03/22/2025 4:15 PM CDT DIFFERENTIAL, MANUAL Routine 03/22/2025 12:37 PM CDT RETICULOCYTES Routine 03/22/2025 12:37 PM CDT COMPREHENSIVE METABOLIC PANEL Routine 03/22/2025 12:37 PM CDT CBC WITH DIFFERENTIAL Routine 03/22/2025 12:37 PM CDT DIFFERENTIAL, MANUAL Routine 03/21/2025 12:40 PM CDT COMPREHENSIVE METABOLIC PANEL Routine 03/21/2025 12:40 PM CDT CBC WITH DIFFERENTIAL Routine 03/21/2025 12:40 PM CDT DIFFERENTIAL, MANUAL Routine 03/19/2025 3:01 PM CDT RETICULOCYTES Routine 03/19/2025 3:01 PM CDT CBC WITH DIFFERENTIAL Routine 03/19/2025 3:01 PM CDT BASIC METABOLIC PANEL Routine 03/19/2025 9:30 AM CDT from Last 3 Months Results * MANUAL DIFFERENTIAL (03/29/2025 9:19 PM BUSINESS PROGRAMMER) Only the most recent of7 resultswithin the time period is included. PLATELET EST. Consistent w Count 03/29/2025 10:23 PM BUSINESS PROGRAMMER [facility] [facility] ANISOCYTOSIS 2+ /hpf 03/29/2025 10:23 PM BUSINESS PROGRAMMER [employer] [facility] POIKILOCYTES 2+ /hpf 03/29/2025 10:23 PM BUSINESS PROGRAMMER [employer] [facility] MACROCYTES 2+ /hpf 03/29/2025 10:23 PM BUSINESS PROGRAMMER [employer] [facility] TARGET CELLS 1+ /hpf 03/29/2025 10:23 PM BUSINESS PROGRAMMER [employer] [facility] OVALOCYTES 1+ /hpf 03/29/2025 10:23 PM BUSINESS PROGRAMMER [employer] [facility] SICKLE CELLS 1+ /hpf 03/29/2025 10:23 PM BUSINESS PROGRAMMER [employer] [facility] PAPPENHEIMER BODIES Present 03/29/2025 10:23 PM BUSINESS PROGRAMMER [employer] [facility] Blood Venipuncture / Unknown 03/29/2025 9:19 PM BUSINESS PROGRAMMER 03/29/2025 9:22 PM BUSINESS PROGRAMMER us Freda Crowder DO HEMATOLOGY ORDERABLES COM Final Result [employer] SERVICES [facility] CLIA# [id number] [address] [place] [address] * (ABNORMAL) CBC WITH DIFFERENTIAL (03/29/2025 9:19 PM BUSINESS PROGRAMMER) Only the most recent of7 resultswithin the time period is included. WBC 8.6 4.0 - 9.8 K/uL 03/29/2025 9:45 PM BUSINESS PROGRAMMER [employer] [facility] RBC 2.74(L) 4.50 - 5.40 M/uL 03/29/2025 9:45 PM BUSINESS PROGRAMMER [employer] [facility] HEMOGLOBIN 8.4(L) 13.6 - 16.5 g/dL 03/29/2025 9:45 PM BUSINESS PROGRAMMER [employer] SERVICES [facility] HEMATOCRIT 24.9(L) 40.0 - 48.0 % 03/29/2025 9:45 PM BUSINESS PROGRAMMER [employer] [facility] - [facility] MCV 90.9 82.0 - 99.0 fL 03/29/2025 9:45 PM BUSINESS PROGRAMMER [employer] [facility] MCH 30.7 27.2 - 32.6 pg 03/29/2025 9:45 PM BUSINESS PROGRAMMER [employer] [facility] MCHC 33.7 31.5 - 35.5 g/dL 03/29/2025 9:45 PM BUSINESS PROGRAMMER [employer] [facility] RDW 19.8(H) 11.5 - 14.5 % 03/29/2025 9:45 PM BUSINESS PROGRAMMER [employer] [facility] - [facility] RDW-STDEV 65.3(H) 37.1 - 48.7 fL 03/29/2025 9:45 PM BUSINESS PROGRAMMER [employer] [facility] PLATELETS 292 140 - 350 K/uL 03/29/2025 9:45 PM BUSINESS PROGRAMMER [employer] [facility] - [facility] MPV 10.2 9.3 - 12.4 fL 03/29/2025 9:45 PM BUSINESS PROGRAMMER [facility] NEUTROPHILS 40 % 03/29/2025 9:45 PM BUSINESS PROGRAMMER [facility] LYMPHOCYTES 41 % 03/29/2025 9:45 PM [facility] LABORATORY [facility] MONOCYTES 12 % 03/29/2025 9:45 PM [facility] EOSINOPHILS 6 % 03/29/2025 9:45 PM BUSINESS PROGRAMMER [facility] BASOPHILS 1 % 03/29/2025 9:45 PM [facility] LABORATORY [facility] IMMATURE GRANULOCYTES 0 % 03/29/2025 9:45 PM BUSINESS PROGRAMMER [facility] LABORATORY [facility] NEUTROPHIL ABSOLUTE 3.43 1.90 - 7.00 K/uL 03/29/2025 9:45 PM [facility] LABORATORY [facility] LYMPHOCYTE ABSOLUTE 3.53 0.70 - 4.50 K/uL 03/29/2025 9:45 PM [facility] LABORATORY [facility] MONOCYTE ABSOLUTE 1.01 0.10 - 1.30 K/uL 03/29/2025 9:45 PM [facility] LABORATORY [facility] EOSINOPHIL ABSOLUTE 0.51 0.00 - 0.70 K/uL 03/29/2025 9:45 PM BUSINESS PROGRAMMER [facility] LABORATORY [facility] BASOPHILS ABSOLUTE 0.07 0.00 - 0.20 K/uL 03/29/2025 9:45 PM BUSINESS PROGRAMMER [facility] LABORATORY [facility] - . [facility] IMMATURE GRANULOCYTES ABSOLUTE 0.01 0.00 - 0.03 K/uL 03/29/2025 9:45 PM [facility] LABORATORY [facility] - [facility] [place] Blood Venipuncture / Unknown 03/29/2025 9:19 PM BUSINESS PROGRAMMER 03/29/2025 9:22 PM BUSINESS PROGRAMMER us Freda Crowder DO HEMATOLOGY ORDERABLES Final Resu lt [facility] CLIA# [id number] [address] [place], [place] [address] * (ABNORMAL) RETICULOCYTES (03/29/2025 9:19 PM BUSINESS PROGRAMMER) Only the most recent of8 resultswithin the time period is included. RETICULOCYTES 5.9(H) 0.7 - 2.9 % 03/29/2025 9:35 PM [facility] LABORATORY [facility] IMMATURE RETIC FRACTION 21.7(H) 3.0 - 18.0 % 03/29/2025 9:35 PM [facility] LABORATORY [facility] RETICULOCYTE, ABSOLUTE 0.1600 10e6/uL 03/29/2025 9:35 PM [facility] [employer] [facility] Blood Venipuncture / Unknown 03/29/2025 9:19 PM BUSINESS PROGRAMMER 03/29/2025 9:22 PM BUSINESS PROGRAMMER us Freda Crowder DO HEMATOLOGY ORDERABLES Final Resu lt [facility] [employer] [facility]# [id number] [address] [place] [address] * (ABNORMAL) BASIC METABOLIC PANEL (03/29/2025 9:19 PM BUSINESS PROGRAMMER) Only the most recent of5 resultswithin the time period is included. Pathologist [facility] SODIUM 139 136 - 145 mmol/L 03/29/2025 10:03 PM [facility] LABORATORY [facility] POTASSIUM 3.6 3.5 - 5.0 mmol/L 03/29/2025 10:03 PM [facility] LABORATORY [facility] CHLORIDE 106 98 - 107 mmol/L 03/29/2025 10:03 PM [facility] CO2 23 22 - 29 mmol/L 03/29/2025 10:03 PM [facility] CALCIUM 8.3(L) 8.6 - 10.2 mg/dL 03/29/2025 10:03 PM [facility] BUN 2(L) 6 - 20 mg/dL 03/29/2025 10:03 PM [facility] LABORATORY [facility] CREATININE 0.51(L) 0.67 - 1.17 mg/dL 03/29/2025 10:03 PM [facility] LABORATORY [facility] GLUCOSE 94 74 - 99 mg/dL 03/29/2025 10:03 PM [facility] GFR >60 >=60 mL/min/1.7 3 sq meter 03/29/2025 10:03 PM [facility] Comment:eGFR calculated with 2020 CKD-EPI equation. Vegetarian diet, extremely high or low muscle mass, and may affect results. Cystatin C with Glomerular Filtration Rate is a suitable alternative for these patients. ANION GAP 10 8 - 16 mmol/L 03/29/2025 10:03 PM [facility] LABORATORY [facility] Blood Venipuncture / Unknown 03/29/2025 9:19 PM BUSINESS PROGRAMMER 03/29/2025 9:23 PM BUSINESS PROGRAMMER us Freda Crowder DO CHEMISTRY ORDERABLES Final Resul t [facility] CLIA# [id number] [address] [place] [address] * ECHO COMPLETE - CONTRAST AND STRAIN IF INDICATED (03/26/2025 12:20 PM CDT) EJECTION FRACTION 67 INTERFACE SYSTEM 03/26/2025 11:4 7 AM CDT Narrative INTERFACE SYSTEM - 03/26/2025 1:17 PM CDT [facility] [address] [place] [address] [email or web address] [email or web address] Echocardiogram Patient: Johnny Simon Study ID: ECHO COMPLETE - Gender: M : 1995 Age: 29 Race: PARISH Height 177.8cm Study Date: 03/26/2025 Weight: 106.6kg Access. #: [id number] BP: *Referring Physician:Freda Hall *Ordering Physician:Freda Hall carving machine operator: Nurse: Indications: Chest pain. STUDY CONCLUSIONS: SUMMARY: [...] SV/bsa, 2-p 25.8 ml/m^2 --------- E', lat miguel, TDI (N) 10.8 cm/sec >=10.0 15.0 E/e', lat miguel, TDI (N) 9 <=13 8 E', med miguel, TDI (N) 8.8 cm/sec >=7.0 9.5 E/e', med miguel, TDI 11 --------- 12 E', avg, TDI [...] Vol/bsa, ES, 1-p A4C (L) 10 ml/m^2 11 - 39 28 Aortic valve Value Ref 04/18/2024 Peak [...] Prepared and Electronically Authenticated Blaise Knowles MD [id number] Procedure Note Blaise Knowles MD - 03/26/[address] [address] [email or web address] Transthoracic Echocardiogram Patient: Johnny Simon Study ID: ECHO COMPLETE - Gender: Lacy : 1995 Age: 29 Race: PARISH Height 177.8cm Study Date: 03/26/2025 Weight: 106.6kg Access. #: [id number] BP: *Referring Physician:Freda Hall *Ordering Physician:Freda Hall carving machine operator: Nurse: Indications: Chest pain. STUDY CONCLUSIONS: SUMMARY: [...] LAX (L) 2.0 cm 4.2 - 5.8 JSOE/bsa, LAX (L) 0.9 cm/m^2 2.2 - 3.0 [...] SV/bsa, 2-p 25.8 ml/m^2 --------- E', lat miguel, TDI (N) 10.8 cm/sec >=10.0 15.0 E/e', lat miguel, TDI (N) 9 <=13 8 E', med miguel, TDI (N) 8.8 cm/sec >=7.0 9.5 E/e', med miguel, TDI 11 --------- 12 E', avg, TDI [...] Vol/bsa, ES, 1-p A4C (L) 10 ml/m^2 11 - 39 28 Aortic valve Value Ref 04/18/2024 Peak [...] Prepared and Electronically Authenticated Blaise Knowles MD [id number] us Freda Crowder DO ORDERABLES Final Result INTERFACE SYSTEM Refer to clinic/hospital department * (ABNORMAL) CBC WITHOUT DIFFERENTIAL (03/26/2025 11:43 AM CDT) Only the most recent of2 resultswithin the time period is included. WBC 9.2 4.0 - 9.8 K/uL 03/26/2025 12:45 PM CDT [facility] NRBCS 1 % 03/26/2025 12:45 PM CDT [facility] RBC 3.02(L) 4.50 - 5.40 M/uL 03/26/2025 12:45 PM CDT [facility] HEMOGLOBIN 9.4(L) 13.6 - 16.5 g/dL 03/26/2025 12:45 PM CDT [facility] HEMATOCRIT 27.5(L) 40.0 - 48.0 % 03/26/2025 12:45 PM CDT [facility] MCV 91.1 82.0 - 99.0 fL 03/26/2025 12:45 PM CDT [facility] - . [place] MCH 31.1 27.2 - 32.6 pg 03/26/2025 12:45 PM CDT [facility] - . [facility] MCHC 34.2 31.5 - 35.5 g/dL 03/26/2025 12:45 PM CDT [facility] PLATELETS 248 140 - 350 K/uL 03/26/2025 12:45 PM CDT [facility] MPV 10.0 9.3 - 12.4 fL 03/26/2025 12:45 PM CDT [facility] RDW 21.2(H) 11.5 - 14.5 % 03/26/2025 12:45 PM CDT [employer] LABORATORY SERVICES - . [facility] RDW-STDEV 70.9(H) 37.1 - 48.7 fL 03/26/2025 12:45 PM CDT [facility] - . [place] Blood Venipuncture / Unknown 03/26/2025 11:43 AM CDT 03/26/2025 11:48 AM CDT us Freda Crowder DO HEMATOLOGY ORDERABLES Final Resu lt [facility] - [facility] CLIA# [id number] [address] [place] [address] * TROPONIN (03/25/2025 1:31 PM CDT) TROPONIN T, 5TH GEN <6 <=15 ng/L 03/25/2025 2:18 PM CDT [facility] Blood Venipuncture / Unknown 03/25/2025 1:31 PM CDT 03/25/2025 1:34 PM CDT Narrative [facility] - 03/25/2025 2:18 PM CDT Troponin Undetectable us Freda Crowder DO CHEMISTRY ORDERABLES Final Resul t [facility] CLIA# [id number] [address] [place] [address] * EKG 12-LEAD (03/25/2025 10:46 AM CDT) 03/25/2025 10:4 6 AM CDT Narrative INTERFACE SYSTEM - 03/25/2025 2:23 PM CDT [address] [address] Test Date: 2025-03-25 Pat Name: JOHNNY SIMON Department: 41 Room: [facility] 1 Gender: M [employer] Internship: [facility] : 1995 Requested By: ADORE QUINONEZ Order Number: [id number] Reading : Braeden Harrington Measurements Intervals [place] Rate: 74 P: 36 NV: 194 QRS: 53 QRSD: 90 T: 62 QT: 434 QTc: 482 Interpretive Statements Sinus rhythm Borderline prolonged QT interval Electronically Signed On 03-25-2025 14:23:44 CDT by Braeden Harrington Procedure Note Braeden Harrington MD - 03/25/2025 [facility] [address] [place] [address] Test Date: 2025-03-25 Pat Name: JOHNNY SIMON Department: 41 Room: [facility] 1 Gender: M [employer] Internship: : 1995 Requested By: ADORE QUINONEZ Order Number: [id number] Reading MD: Braeden Harrington Measurements Intervals [place] Rate: 74 P: 36 NV: 194 QRS: 53 QRSD: 90 T: 62 QT: 434 QTc: 482 Interpretive Statements Sinus rhythm Borderline prolonged QT interval Electronically Signed On 03-25-2025 14:23:44 CDT by Braeden Harrington us Freda Crowder ECG ORDERABLES Final Result INTERFACE SYSTEM Refer [...] pleural effusion or pneumothorax DICTATION LOCATION: Location - [facility] Procedure Note Jaren Smith MD - 03/25/2025 EXAM: PORTABLE AP CHEST DATE: 03/25/2025 6:34 AM HISTORY: Chest Pain. See Reason for Exam FINDINGS: There is marked cardiomegaly increased from December 22, 2024. There is interstitial edema. There is no consolidation. There is no pleural effusion or pneumothorax DICTATION LOCATION: Location 1 - [facility] Marina Negrete GLO[employer] CREATIVE CHAIRMAN DIAGNOSTIC IMAGING ORDERABL ES Final Result * TSH (03/24/2025 12:08 PM CDT) TSH 2.63 0.27 - 4.20 uIU/mL 03/24/2025 1:16 PM CDT [facility] SERVICES [facility] Blood Venipuncture / Unknown 03/24/2025 12:08 PM CDT 03/24/2025 12:25 PM CDT us Freda Crowder DO CHEMISTRY ORDERABLES Final Resul t [facility]AT[facility] SERVICES [facility]# [id number] [address] [place] [address] * (ABNORMAL) COMPREHENSIVE METABOLIC PANEL (03/23/2025 5:23 AM CDT) Only the most recent of3 resultswithin the time period is included. SODIUM 139 136 - 145 mmol/L 03/23/2025 6:59 AM CDT [facility] - [facility] [place] POTASSIUM 3.1(L) 3.5 - 5.0 mmol/L 03/23/2025 6:59 AM CDT [facility] [place] CHLORIDE 104 98 - 107 mmol/L 03/23/2025 6:59 AM CDT [facility] - [facility] [place] CO2 24 22 - 29 mmol/L 03/23/2025 6:59 AM CDT [facility] [place] CALCIUM 8.3(L) 8.6 - 10.2 mg/dL 03/23/2025 6:59 AM CDT [facility] - . [place] BUN 3(L) 6 - 20 mg/dL 03/23/2025 6:59 AM T [facility] CREATININE 0.53(L) 0.67 - 1.17 mg/dL 03/23/2025 6:59 AM CDT [facility] GLUCOSE 89 74 - 99 mg/dL 03/23/2025 6:59 AM T [facility] [place] TOTAL PROTEIN 7.2 6.7 - 8.6 g/dL 03/23/2025 6:59 AM CDT [facility] ALBUMIN 3.8 3.5 - 5.2 g/dL 03/23/2025 6:59 AM CDT [facility] BILIRUBIN TOTAL 5.4(H) 0.0 - 1.2 mg/dL 03/23/2025 6:59 AM CDT [facility] - . [place] ALKALINE PHOSPHATASE 222(H) 40 - 129 U/L 03/23/2025 6:59 AM CDT [facility] LABORATORY [facility] AST 57(H) <41 U/L 03/23/2025 6:59 AM CDT [facility] ALT 25 <42 U/L 03/23/2025 6:59 AM CDT [facility] LABORATORY [facility] GFR >60 >=60 mL/min/1.7 3 sq meter 03/23/2025 6:59 AM CDT [facility] Comment:eGFR calculated with 2020 CKD-EPI equation. Vegetarian diet, extremely high or low muscle mass, and may affect results. Cystatin C with Glomerular Filtration Rate is a suitable alternative for these patients. ANION GAP 11 8 - 16 mmol/L 03/23/2025 6:59 AM CDT [facility] Blood Venipuncture / Unknown 03/23/2025 5:23 AM CDT 03/23/2025 6:01 AM CDT Narrative [facility] - 03/23/2025 6:59 AM CDT Samples containing indocyanine green cause interferences on Total and/or Direct Bilirubin and must not be measured. Freda Crowder DO CHEMISTRY ORDERABLES Final Resul t [facility]# [id number] [address] [facility] [place] [address] * TYPE AND SCREEN (03/22/2025 8:24 PM CDT) ABO GROUP A 03/22/2025 10:07 PM CDT [facility] [employer] [facility] RH (D) TYPE Positive 03/22/2025 10:07 PM CDT [facility] [employer] [facility] ANTIBODY SCREEN Negative 03/22/2025 10:07 PM CDT [facility] Blood Venipuncture / Unknown 03/22/2025 8:24 PM CDT 03/22/2025 8:43 PM CDT Freda Crowder DO BLOOD BANK ORDERABLES Edited Res ult - Final [employer] LABORATORY SERVICES -- [place]IE MULLINS# [id number] [address] [place] [address] * PREPARE RED BLOOD CELLS (03/22/2025 4:15 PM CDT) COMPONENT TYPE [id number] [facility]OR[facility] SERVICES -- [facility] COMPONENT IDENTIFICATION [id number] [facility] LABORAT[facility] SERVICES -- [facility] ABO A [facility] -- [facility] RH POS [facility] CROSSMATCH Compatible [facility] -- [facility] COMPONENT STATUS Transfused ME [facility] -- [facility] COMPONENT EXPIRATION DATE/TIME [id number] [facility] -- [facility] COMPONENT CODING SYSTEM [phone] [facility] -- .[facility] VOLUME, BLOOD PRODUCT 350 [facility] SERVICES -- .[facility] Other, specify 03/22/2025 4: 15 PM CDT Freda Crowder DO LAB TRANSFUSION ORDERABLES Edite d Result - Final Performing Organization Address [facility]/ZIP Co de Phone Number [employer] -- [facility]# [id number] [address] [place] [id number] from Last 3 Months Insurance [facility] MEDICAID RX INFOCROSSING Medicaid RX ZELAYA PLANS (INTERNAL) [facility] Internal Plans Advance Directives For more information, please contact: [phone] * Full Code (Latest Code Status on File) Date Activated Date Inactivated Comments 03/18/2025 8:06 PM 03/30/2025 3:24 PM * Full Code Date Activated Date Inactivated Comments 12/23/2024 6:24 AM 12/23/2024 2:11 PM * Full Code Date Activated Date Inactivated Comments 12/09/2024 9:27 PM 12/13/2024 1:40 PM * Full Code Date Activated Date Inactivated Comments 10/20/2024 8:11 AM 10/29/2024 5:06 PM * Full Code Date Activated Date Inactivated Comments 09/24/2024 7:49 AM 09/28/2024 12:38 PM
--- OUTSIDE RECORDS SUMMARY | 2025-03-31 16:17 | XMS_ITS | Encounter Summary ---
Author Organization [facility] Address [address] [place] [address] Care Team Providers Care Patcher Wood Welder Name Role Phone None, Provider Primary Care Provider Braeden Downs MD Unavailable Encounter Details Date Type Department Care Team (Latest Contact Info) Description 03/31/2025 Travel Social History Tobacco Use Types Packs/Day Years Used Date Smoking Tobacco: Never Smokeless Tobacco: Never Alcohol Use Standard Drinks/Week Comments Never 0 (1 standard drink = 0.6 oz pur e alcohol) [facility] Utilities Answer Date Recorded In the past 12 months has [employer], gas, oil, or water [employer] threatened to shut off services in your [...] as of this encounter Functional Status * Are you deaf or do you have serious difficulty hearing Answer Date of Assessment Author Status Yes 12/14/2024 5:00 PM ROBERTOT Rosmery Hammond RN Active * Are you blind or [...] 7:51 AM Yovani Robles RN Active * [place] Suicide Severity Rating Scale (Screener/Recent Self-Report) Question [...] Date Author Status No 12/14/2024 5:00 PM CDT Rosmery Hammond RN Active documented in this encounter Plan of Treatment Not on file documented as of this encounter Goals Goal Patient Goal Type Associated Problems Recent Progress Patient-Stated? 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
--- OUTSIDE RECORDS SUMMARY | 2025-03-31 16:17 | XMS_ITS | CCD ---
Author Name Interface, [address] Address More breakthroughs. More victories. [address] Oncology Address 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
--- OUTSIDE RECORDS SUMMARY | 2025-03-31 16:17 | XMS_ITS | Clinical Summary ---
Author Organization [facility] Address [address] [place] [id number] Care Team Providers Care Maintenance Instructor Name Role Phone None, Provider MD Primary Care Provider Braeden Downs MD Unavailable [phone] Allergies Active Allergy Reactions Criticality Noted Date [...] Noted Date Diagnosed Date Sickle cell crisis 12/13/2024 Sickle cell anemia 11/09/2024 Sickle cell anemia with crisis 10/29/2024 Sickle cell pain crisis 09/28/2024 Encounters Date Type Department Care Team Description 03/31/2025 7:57 AM PROTECTIVE SIGNAL OPERATOR - 03/31/2025 11:16 AM [facility] Emergency [facility] [place] [address] Bhavesh Constantino PA-C Sickle Cell Pain Discharge Disposition: Home or Self Care (Routine Discharge) 03/31/2025 Travel 03/05/2025 5:32 PM CDT - 03/05/2025 11:30 PM CDT Emergency [facility] [place] [address] Valentina Estrada PA Sickle Cell Pain Discharge Disposition: Home or Self Care (Routine Discharge) 03/05/2025 Travel 01/29/2025 4:57 PM CDT - 01/29/2025 8:55 PM CDT Emergency [facility] [place] [address] Noe Gross NP Back Pain Discharge Disposition: Home or Self Care (Routine Discharge) 01/29/2025 Travel 01/18/2025 3:27 PM CDT - 01/18/2025 7:53 PM CDT Emergency [facility] [place] [address] Deo Cantrell MD Sickle Cell Pain Discharge Disposition: Home or Self Care (Routine Discharge) 01/18/2025 Travel 12/31/2024 3:41 PM CDT - 12/31/2024 11:27 PM CDT Emergency [facility] [place] [address] Navi Saenz MD Sickle Cell Pain Discharge Disposition: Home or Self Care (Routine Discharge) 12/31/2024 Travel from Last 3 Months Social History Tobacco Use Types Packs/Day Years Used Date Smoking Tobacco: Never Smokeless Tobacco: Never Tobacco Cessation:Counseling Given: Not Answered Alcohol Use Standard Drinks/Week Comments Never 0 (1 standard drink = 0.6 oz pur e alcohol) [facility] Utilities Answer Date Recorded In the past 12 months has [facility] electric, gas, oil, or water company threatened [...] in the past [address] [facility], were you homeless or living in a fpc (including now)? No 12/14/2024 Sex and Gender Information Value Date Recorded Sex Assigned at Male 09/28/2024 1:28 PM CDT Legal Sex Male 12:45 PM CDT Gender Identity Not on file Sexual Orientation Not on file Last Filed Vital Signs Vital Sign Reading Time Taken Comments Blood Pressure 107/73 03/31/2025 10:06 AM PROTECTIVE SIGNAL OPERATOR Pulse 99 03/31/2025 10:06 AM PROTECTIVE SIGNAL OPERATOR Temperature 37.2 C (98.9 F) 03/31/2025 9:04 AM PROTECTIVE SIGNAL OPERATOR Respiratory Rate 20 03/31/2025 10:0 6 AM PROTECTIVE SIGNAL OPERATOR Oxygen Saturation 95% 03/31/2025 10: 06 AM PROTECTIVE SIGNAL OPERATOR Inhaled Oxygen Concentration - - Weight 111.6 kg (246 lb 0.5 oz) 03/31/2025 7:53 AM PROTECTIVE SIGNAL OPERATOR Height 177.8 cm (5' 10) 03/31/2025 7:53 AM PROTECTIVE SIGNAL OPERATOR Body Mass Index 35.3 03/31/2025 7:53 AM PROTECTIVE SIGNAL OPERATOR Plan of Treatment Health Maintenance Due Date Last Done Comments Meningococcal Vaccine (1 - Risk 2-dose series) 1998 Annual Physical 11/06/1999 Meningococcal B Vaccine (1 of 4 - Increased Risk) 2006 Hepatitis A Vaccines (2 of 2 - 2-dose series) 03/30/2010 09/27/2009 Hepatitis C 2014 Hepatitis B Vaccines (1 of 3 - 19+ 3-dose series) 11/06/2015 Pneumococcal Vaccine: Pediatrics (0 to 5 Years) and At-Risk Patients (6 to 49 Years) (1 of 2 - PCV) 11/06/2015 HPV Vaccines (1 - 3-dose SCDM series) 11/06/2023 COVID-19 Vaccine (2 - season) 2025 01/23/2022 Influenza Adult (#1) 2025 [...] Procedure Name Priority Date/Time Associated Diagnosis Comments INFLUENZA A & B STAT 03/31/2025 9:00 AM PROTECTIVE SIGNAL OPERATOR CORONAVIRUS (COVID 19) STAT 9:00 AM PROTECTIVE SIGNAL OPERATOR XR CHEST PORTABLE STAT 03/31/2025 8:5 5 AM PROTECTIVE SIGNAL OPERATOR RETICULOCYTE CT, AUTO STAT 03/31/2025 8:11 AM PROTECTIVE SIGNAL OPERATOR BASIC METABOLIC PANEL STAT 03/31/2025 8:11 AM PROTECTIVE SIGNAL OPERATOR CBC W/DIFF AUTOMATED STAT 03/31/2025 8:11 AM PROTECTIVE SIGNAL OPERATOR COMPREHENSIVE METABOLIC PANEL STAT 03/05/2025 6:[address], AUTO STAT 03/05/2025 6:23 PM CDT CBC W/DIFF AUTOMATED STAT 03/05/2025 6:23 PM CDT XR CHEST PORTABLE STAT 03/05/2025 6:0 3 PM CDT HC URINALYSIS AUTO W/O MICRO STAT 01/29/2025 [...] ECG 12-LEAD STAT 12/31/2024 3:39 PM CDT from Last 3 Months Results * CORONAVIRUS (COVID 19) (03/31/2025 9:00 AM PROTECTIVE SIGNAL OPERATOR) CORONAVIRUS SARS COV 2 RNA NEGATIVE NEGATIVE 03/31/2025 9:54 AM PROTECTIVE SIGNAL OPERATOR [facility] Comment: NEGATIVE RESULTS DO NOT RULE [...] SARS-COV-2. SPECIMEN TYPE NASAL 03/31/2025 8:48 AM PROTECTIVE SIGNAL OPERATOR [facility] NASAL STRUCTURE / Unknown 03/31/2025 9:00 AM PROTECTIVE SIGNAL OPERATOR us Bhavesh Constantino PA-C MICROBIOLOGY GENERAL NORMA HANKS Final Result Performing Organization Address [facility] de Phone Number [facility] [address] [place] [address], [place] [phone] * INFLUENZA A & B (03/31/2025 9:00 AM PROTECTIVE SIGNAL OPERATOR) SPECIMEN TYPE NASAL 03/31/2025 9:28 AM PROTECTIVE SIGNAL OPERATOR [facility] INFLUENZA A NEGATIVE NEGATIVE 03/31/2025 9:54 AM PROTECTIVE SIGNAL OPERATOR [facility] INFLUENZA B NEGATIVE NEGATIVE 03/31/2025 9:54 AM PROTECTIVE SIGNAL OPERATOR [facility] Comment: Interpretation: Negative for Influenza A [...] NASOPHARYNGEAL SWAB / Unknown 03/31/2025 9:00 AM PROTECTIVE SIGNAL OPERATOR us Bhavesh Constantino PA-C MICROBIOLOGY GENERAL [place]MA HANKS Final Result Performing Organization Address City/[facility] Co de Phone Number [facility] [address] [place] [address], [place] [phone] * XR CHEST PORTABLE (03/31/2025 8:55 AM PROTECTIVE SIGNAL OPERATOR) Only the most recent of4 resultswithin the time period is included. Anatomical Region Laterality Modality Chest Radiographic Mireya ging 03/31/2025 9:32 AM PROTECTIVE SIGNAL OPERATOR Impressions 03/31/2025 9:38 AM PROTECTIVE SIGNAL OPERATOR IMPRESSION: 1. No acute focal pulmonary infiltrate or consolidation. 2. Heart size towards upper limits normal and stable mild prominence of the central pulmonary vessels. Ordered By: BHAVESH CONSTANTINO Interpreted By: Jaun Patterson, 03/31/2025 9:32 AM Narrative 03/31/2025 9:38 AM PROTECTIVE SIGNAL OPERATOR [address] [address] IMAGING STUDIES: XR CHEST PORTABLE DATE: 03/31/2025 [...] Procedure Note Jaun Patterson MD - 03/31/[address] [address] IMAGING STUDIES: XR CHEST PORTABLEDATE: 03/31/2025 8:48 [...] Interpreted By: Jaun Patterson, 03/31/2025 9:32 AM Bhavesh Constantino PA-C GENERAL IMAGING Final Resul t * (ABNORMAL) RETICULOCYTE CT, AUTO (03/31/2025 8:11 AM PROTECTIVE SIGNAL OPERATOR) Only the most recent of5 resultswithin the time period is included. RETICULOCYTE COUNT 6.0(H) 0.8 - 2.1 % 03/31/2025 8:39 AM PROTECTIVE SIGNAL OPERATOR [facility] ABSOLUTE RETICULOCYTE 0.17(H) 0.03 - 0.11 x10'6/uL 03/31/2025 8:39 AM PROTECTIVE SIGNAL OPERATOR [facility] IMMATURE RETIC FRACTION 35.0(H) 2.3 - 13.4 % 03/31/2025 8:39 AM PROTECTIVE SIGNAL OPERATOR [facility] RETIC HGB 32.4 28.0 - 35.0 PG 03/31/2025 8:39 AM PROTECTIVE SIGNAL OPERATOR [facility] 03/31/2025 8:11 AM PROTECTIVE SIGNAL OPERATOR Bhavesh Constantino PA-C LABORATORY Final Resul t [facility] [address] [place] [address], [place] [phone] * (ABNORMAL) BASIC METABOLIC PANEL (03/31/2025 8:11 AM PROTECTIVE SIGNAL OPERATOR) GLUCOSE 96 70 - 99 MG/DL 03/31/2025 8:51 AM PROTECTIVE SIGNAL OPERATOR [facility] BUN 5(L) 7 - 18 MG/DL 03/31/2025 8:51 AM [facility] CREATININE S/P/B 0.66(L) 0.7 - 1.3 MG/DL 03/31/2025 8:51 AM [facility] SODIUM S/P/B 140 136 - 145 MMOL/L 03/31/2025 8:51 AM [facility] POTASSIUM S/P/B 3.2(L) 3.5 - 5.1 MMOL/L 03/31/2025 8:51 AM [facility] CHLORIDE S/P/B 109 97 - 115 MMOL/L 03/31/2025 8:51 AM [facility] CO2 27.4 21 - 32 MMOL/L 03/31/2025 8:51 AM [facility] CALCIUM S/P/B 8.5 8.5 - 10.1 MG/DL 03/31/2025 8:51 AM [facility] ANION GAP 3.6 2 - 10 MMOL/L 03/31/2025 8:51 AM [facility] BUN CREATININE RATIO 7.5 6 - 26 03/31/2025 8:51 AM [facility] GFR ESTIMATE >90 >90 ML/MIN/1.7 3 M2 03/31/2025 8:51 AM [facility] Comment: NOTE: eGFR is not calculated for patients <18 years of age or gender unknown. This is an estimated GFR calculation using the new CKD EPI creatinine equation without race and so does not require a correction factor for race. This estimated GFR should not be used for calculating drug doses. 03/31/2025 8:11 AM [facility] us Bhavesh Constantino PA-C LABORATORY Final Resul t [facility] [address] [place] [address], [place] [phone] * (ABNORMAL) CBC W/DIFF AUTOMATED (03/31/2025 8:11 AM PROTECTIVE SIGNAL OPERATOR) Only the most recent of5 resultswithin the time period is included. WBC 11.10(H) 4.5 - 11.0 x10'3/uL 03/31/2025 8:39 AM [facility] RBC 2.76(L) 4.70 - 6.10 x10'6/uL 03/31/2025 8:39 AM [facility] HGB 8.6(L) 14.0 - 18.0 G/DL 03/31/2025 8:39 AM [facility] HCT 24.3(L) 43.0 - 54.0 % 03/31/2025 8:39 AM [facility] MCV 88.0 80.0 - 94.0 FL 03/31/2025 8:39 AM [facility] MCH 31.2(H) 27.0 - 31.0 PG 03/31/2025 8:39 AM [facility] MCHC 35.4 32.0 - 36.0 G/DL 03/31/2025 8:39 AM [facility] RDW 19.6(H) 11.5 - 14.5 % 03/31/2025 8:39 AM [facility] PLT 316 130 - 400 x10'3/uL 03/31/2025 8:39 AM [facility] MPV 11.1 9.3 - 12.2 FL 03/31/2025 8:39 AM [facility] DIFFERENTIAL TYPE AUTOMATED DIFFERENTIAL 03/31/2025 9:38 AM [facility] NEUTROPHILS % 57.9 % 03/31/2025 9:38 AM [facility] LYMPHOCYTES % 29.8 % 03/31/2025 9:38 AM [facility] MONOCYTES % 8.9 % 03/31/2025 9:38 AM [facility] EOSINOPHILS 2.4 % 03/31/2025 9:38 AM [facility] BASOPHILS 0.7 % 03/31/2025 9:38 AM [facility] IMMATURE GRANS % 0.3 % 03/31/20 9:38 AM [facility] ABS. NEUTROPHILS 6.42 1.80 - 7.70 x10'3/uL 03/31/2025 9:38 AM [facility] ABS. LYMPHOCYTES 3.31 1.00 - 4.80 x10'3/uL 03/31/2025 9:38 AM [facility] ABS. MONOCYTES 0.99(H) 0.30 - 0.82 x10'3/uL 03/31/2025 9:38 AM [facility] ABS. EOSINOPHILS 0.27 0.04 - 0.54 x10'3/uL 03/31/2025 9:38 AM [facility] ABS. BASOPHILS 0.08 0.01 - 0.08 x10'3/uL 03/31/2025 9:38 AM [facility] ABS. IMMATURE GRANULOCYTES 0.03 0.00 - 0.49 x10'3/uL 03/31/2025 9:38 AM [facility] RBC MORPHOLOGY SLIDE REVIEWED 2024 9:38 AM [facility] ANISO 1+ 03/31/2025 9:38 AM [facility] HYPOCHROMASIA 1+ 03/31/2025 9:38 AM [facility] POLY 1+ 03/31/2025 9:38 AM PROTECTIVE SIGNAL OPERATOR [facility] TARGET CELLS 1+ 03/31/2025 9:38 AM PROTECTIVE SIGNAL OPERATOR [facility] SICKLE CELL 1+ 03/31/2025 9:38 AM PROTECTIVE SIGNAL OPERATOR [facility] PLT EST. ADEQUATE 03/31/2025 9:38 AM PROTECTIVE SIGNAL OPERATOR [facility] 03/31/2025 8:11 AM PROTECTIVE SIGNAL OPERATOR us Bhavesh Constantino PA-C LABORATORY Final Resul t [facility] [address] [place] [address], [place] [phone] * (ABNORMAL) COMPREHENSIVE METABOLIC PANEL (03/05/2025 6:23 PM CDT) Only the most recent of4 resultswithin the time period is included. Pathologist [facility] GLUCOSE 102(H) 70 - 99 MG/DL 03/05/2025 6:46 PM CDT [facility] BUN 1(L) 7 - 18 MG/DL 03/05/2025 6:46 PM CDT [facility] CREATININE S/P/B 0.79 0.7 - 1.3 MG/DL 03/05/2025 6:46 PM CDT [facility] SODIUM S/P/B 137 136 - 145 MMOL/L 03/05/2025 6:46 PM CDT [facility] POTASSIUM S/P/B 3.6 3.5 - 5.1 MMOL/L 03/05/2025 6:46 PM CDT [facility] CHLORIDE S/P/B 106 97 - 115 MMOL/L 03/05/2025 6:46 PM CDT [facility] CO2 25.5 21 - 32 MMOL/L 03/05/2025 6:46 PM CDT [facility] CALCIUM S/P/B 9.0 8.5 - 10.1 MG/DL 03/05/2025 6:46 PM CDT [facility] BILIRUBIN TOTAL S/P/B 5.1(H) 0.2 - 1.2 MG/DL 03/05/2025 6:46 PM CDT [facility] Comment: THIS ASSAY IS NOT RECOMMENDED FOR PATIENTS UNDERGOING TREATMENT WITH ELTROMBOPAG DUE TO THE POTENTIAL FOR FALSELY ELEVATED RESULTS. TOTAL PROTEIN S/P/B 8.6(H) 6.4 - 8.2 G/DL 03/05/2025 6:46 PM CDT [facility] ALBUMIN S/P/B 4.1 3.4 - 5.0 G/DL 03/05/2025 6:46 PM CDT [facility] AST 48(H) 15 - 37 U/L 03/05/2025 6:46 PM CDT [facility] ALT 33 16 - 60 U/L 03/05/2025 6:46 PM T [facility] ALKALINE PHOSPHATASE S/P/B 329(H) 50 - 136 U/L 03/05/2025 6:46 PM CDT [facility] ANION GAP 5.5 2 - 10 MMOL/L 03/05/2025 6:46 PM T [facility] BUN CREATININE RATIO 1.3(L) 6 - 26 03/05/2025 6:46 PM CDT [facility] A/G RATIO 0.9(L) 1.0 - 2.0 RATIO 03/05/2025 6:46 PM T [facility] GFR ESTIMATE >90 >90 ML/MIN/1.7 3 M2 03/05/2025 6:46 PM CDT [facility] Comment: NOTE: eGFR is not calculated for patients <18 years of age or gender unknown. This is an estimated GFR calculation using the new CKD EPI creatinine equation without race and so does not require a correction factor for race. This estimated GFR should not be used for calculating drug doses. 03/05/2025 6:23 PM CDT Valentina HO LABORATORY Final Result [facility] [address] [place] [address], [place] [phone] * (ABNORMAL) URINALYSIS (01/29/2025 6:37 PM CDT) SPECIMEN TYPE URINE CLEAN CATCH 01/29/2025 6:43 PM CDT [facility] COLOR (U) YELLOW 01/29/2025 7:00 PM CDT [facility] TRANSPARENCY CLEAR 01/29/2025 7:00 PM CDT [facility] SPECIFIC GRAVITY (U) 1.011 1.001 - 1.030 01/29/2025 7:00 PM CDT [facility] U PH 6.0 5.0 - 9.0 01/29/2025 7:00 PM CDT [facility] LEUKOCYTES (U) NEGATIVE NEGATIVE 01/29/2025 7:00 PM CDT [facility] NITRITES NEGATIVE NEGATIVE 01/29/2025 7:00 PM CDT [facility] PROTEIN RANDOM (U) NEGATIVE <30 MG/DL 01/29/2025 7:00 PM CDT [facility] GLUCOSE (U) NORMAL NORMAL MG/DL 01/29/2025 7:00 PM CDT [facility] KETONES MG/DL (U) NEGATIVE NEGATIVE MG/DL 01/29/2025 7:00 PM CDT [facility] UROBILINOGEN 2.0(A) NORMAL MG/DL 01/29/2025 7:00 PM CDT [facility] BILIRUBIN (U) NEGATIVE NEGATIVE MG/DL 01/29/2025 7:00 PM CDT [facility] BLOOD (U) NEGATIVE NEGATIVE 01/29/2025 7:00 PM CDT [facility] URINE SPECIMEN OBTAINED BY CLEAN CATCH PROCEDURE / Unknown 01/29/2025 6:37 PM CDT us Noe Gross [employer] URINE ORDERABLES Final Result [facility] [address] [place] [address], [place] [phone] * XR LUMB SPINE 3V (01/29/2025 5:58 [...] 6:11 PM Narrative 01/29/2025 7:28 PM CDT [facility] [address] [place], [place] [address] Examination: XR LUMB SPINE 3V Exam time: [...] Procedure Note Hilton Watkins MD - 01/29/[address] [address] Examination: XR LUMB SPINE 3V Exam time: [...] sequela of sickle cell disease, similar to CT6/11/2024. Preliminary: Roland Oliva DO01/29/2025 6:15 PM The attending radiologist has reviewed the image(s) and agrees with thecontent of this report. Ordered By: NOE GROSS Interpreted By: Roland Oliva DO, 01/29/2025 6:11 PM us Noe Gross [employer] GENERAL IMAGING Final Result * EKG Reading (01/18/2025 4:52 PM CDT) [...] 95. No ectopy us Deo Cantrell MD [facility] Final Result * ECG 12 lead (01/18/2025 4:46 PM CDT) Only the most recent of2 resultswithin the time period is included. 01/18/2025 4:46 PM CDT Narrative [facility] RAD - 01/19/2025 6:57 AM CDT [facility] [address] Test Date: 2025-01-18 Pat Name: JOHNNY SIMON Department: 41 Room: EXAM25 Gender: Male Statistical Developer: [id number] : 1995 Requested By: VIPUL MURCIA Order Number: [id number] Reading MD: Humberto Blake Measurements Intervals [place] Rate: 95 P: 4 [place]: 184 QRS: 39 QRSD: 90 T: 29 QT: 366 QTc: 461 Interpretive Statements SINUS RHYTHM WITH SINUS ARRHYTHMIA NONSPECIFIC T-WAVE ABNORMALITY Compared to ECG 12/31/2024 15:39:50 Sinus tachycardia no longer present T-wave abnormality still present Procedure Note Humberto Blake MD - 01/19/[address] Test Date: 2025-01-18 Pat Name: JOHNNY SIMON Department: 41 Room: [facility] [address] Gender: Male Statistical Developer: [id number] : 1995 Requested By: VIPUL MURCIA Order Number: [id number] Reading MD: Humberto Blake Measurements Intervals [place] Rate: 95 P: 4 [place]: 184 QRS: 39 QRSD: 90 T: 29 QT: 366 QTc: 461 Interpretive Statements SINUS RHYTHM WITH SINUS ARRHYTHMIA NONSPECIFIC T-WAVE ABNORMALITY Compared to ECG 12/31/2024 15:39:50 Sinus tachycardia no longer present T-wave abnormality still present Vipul Murcia APRN ECG ORDERABLES Final Result Performing Organization Address City/[facility] Co de Phone Number [facility] RAD * TROPONIN, QUANT (01/18/2025 3:46 PM CDT) Only the most recent of2 resultswithin the time period is included. TROPONIN I HIGH SENSITIVITY 7 <79 ng/L 01/18/2025 6:01 PM CDT [facility] Comment: HIGH DOSES OF BIOTIN, TROPONIN-SPECIFIC AUTOANTIBODIES, AND ANTIBODY THERAPY CONTAINING HAMA MAY INTERFERE WITH THIS TEST RESULT. CORRELATION TO CLINICAL HISTORY AND PRESENTATION RECOMMENDED. 01/18/2025 3:46 PM CDT us Vipul Murcia APRN LABORATORY Final Result Performing Organization Address City/[facility]/ZIP Co de Phone Number [facility] [address] [place] [address], from Last 3 Months Insurance [facility] MEDICAID Advance Directives * Full Code (Latest Code [...] 11:13 PM 10/04/2024 4:31 PM Care Teams Maintenance Instructor Relationship Specialty Start Date End Date None, Provider, PCP - General UNKNOWN PHYSICIAN SPECIALTY 09/28/24 Braeden Somers MD 1 [facility] [place] [address] Medical Oncologist HEMATOLOGY/ONCOLOGY 12/07/24 6
== END 2025-03-31 06:52 | disposition left against medical advice (07) ==
PROVIDERS: Emergency Provider Emergency Medicine; PCP Pathology Blood Banking & Transfusion Medicine
DX: Z76.5 Malingerer [conscious simulation] (principal); D57.00 Hb-SS disease with crisis, unspecified; J45.909 Unspecified asthma, uncomplicated; F43.10 Post-traumatic stress disorder, unspecified; Z86.73 Personal history of transient ischemic attack (TIA), and cerebral infarction without residual deficits; Z90.81 Acquired absence of spleen
CPT/HCPCS: 99281